=== PATIENT | male | born 1940 | race Caucasian/White ===

== ENCOUNTER 2020-04-17 14:06 | Outpatient (CLI) | payer BC, SELFPAY ==
--- NOTE | ~2020-04-17 | XR_ITS ---
[XR ribs LT 2V w CXR 2V ] INDICATION: Pleurodynia. Trauma to the ribs. TECHNIQUE: Frontal projection of the upper left ribs, frontal projection of the lower left ribs, obli que projection of all the left ribs, frontal inspiratory chest x-ray for interpretation. COMPARISON: Comparison to multiple prior studies sequentially, with oldest reviewed study dated 03/2015. FINDINGS: There is a healed old left ninth rib fracture posterior laterally. There is left basilar at electasis. Prominent nipple shadows. No pneumothorax identified. No significant effusion. Heart size normal. There is atherosclerosis. There are bilateral shoulder arthroplasties. IMPRESSION: 1: Healed old left ninth rib fracture. 2: Left basilar atelectasis. Reviewed, dictated and finalized at location A. 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
== END 2020-04-17 14:07 | disposition home or self-care (01) ==
LOC: ANHIMG 14:25
PROVIDERS: PCP Family Medicine; Visit Provider Family Medicine
DX: R07.81 Pleurodynia (principal); R91.8 Other nonspecific abnormal finding of lung field
CPT/HCPCS: 71046; 71100

== ENCOUNTER 2020-07-02 16:59 | Emergency (ER) | payer BC, SELFPAY ==
[2020-07-02] VITALS (7 sets, daily range): BP systolic 128–161; BP diastolic 72–105; PULSE 46–60; RESP 18–20; TEMP 36.3–36.8; O2SAT 95–99
--- NOTE | ~2020-07-02 | CT_ITS ---
EXAMINATION: CTA brain carotid DATE: 07/02/2020 18:24 INDICATION: Dizziness. TECHNIQUE: Computed tomographic angiography (CTA) of the head was performed without and with 100 mL O mnipaque-350 intravenous contrast. CTA of the neck was performed with intravenous contrast. Automated exposure control and iterative reconstruction technique were employed. The dose-length product was 1 707.17 mGy-cm. Maximum intensity projection and volume rendered 3D-reconstructions were created by colton lopez technologist on a separate workstation. COMPARISON: Head CT 08/31/2013 FINDINGS: HEAD CTA: There are scattered areas of low attenuation in the cerebral white matter. There is no intr acranial hemorrhage, acute infarction, or abnormal intracranial mass lesion. The ventricles are ranjit l in size. There is mucosal thickening in the paranasal sinuses with thickening and sclerosis of the gonzalez of right maxillary sinus, consistent with chronic sinusitis. The orbits are normal. The mastoid air cells are normal. The vertebral arteries are codominant. There is no significant stenosis of bas ilar artery or the posterior cerebral arteries. There is no significant stenosis of the intracranial internal carotid arteries or anterior or middle cerebral arteries. Anterior communicating artery is n ormal. The posterior communicating arteries are normal. There is no aneurysm. NECK CTA: There are no pathologically enlarged lymph nodes. There is no significant stenosis of the v ertebral arteries. There is undulation of the gonzalez of right internal carotid artery, consistent with fibromuscular dysplasia. 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 There is plaque in the proximal internal carotid arteries. There is 0% stenosis of the proximal right internal carotid artery relative to normal distal artery lumen diameter (NASCET crite uma). There is 0% stenosis of the proximal left internal carotid artery relative to normal distal art tristan lumen diameter. There is severe cervical spondylosis. IMPRESSION: 1. Mild nonspecific cerebral white matter disease, which likely represents chronic small vessel ische vishal disease. 2. No aneurysm or significant intracranial arterial stenosis. 3. 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 I called this result to Dr. Jimenes on 07/03/20 at 8:23 AM. 4. 0% stenosis of the proximal internal carotid arteries relative to normal distal artery lumen diame ters (NASCET criteria). Reviewed, dictated and finalized at location B. IMPRESSION: 1. Mild nonspecific cerebral white matter disease, which likely represents poker manager blanca small vessel ischemic disease. 2. No aneurysm or significant intracranial arterial stenosis. 3. 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 Fibromuscular dysplasia involving right internal car otid artery. I called this result to Dr. Pace on 07/03/20 at 8:23 AM. 4. 0% stenosis of the proximal internal carotid arteries relative to normal dis huma artery lumen diameters (NASCET criteria).
--- NOTE | 2020-07-02 17:09 | ECG_ITS ---
Measurements Intervals [place] Rate: 47 P: 91 LA: 254 QRS: 2 QRSD: 94 T: 3 QT: 451 QTc: 401 Interpretive Statements SINUS BRADYCARDIA WITH FIRST DEGREE AV BLOCK BORDERLINE ST-T WAVE ABNORMALITY- ANTEROLAT/INF LEADS BASELINE WANDER- V4 ABNORMAL ECG Electronically Signed On 07-02-2020 21:57:11 CDT by Nolan Andersen D.O.
[2020-07-02 17:19] LABS: Basophils Absolute Auto 0.1 K/mm3 (0.0-0.1); Basophils Percent Auto 1.1 % (0.2-1.2); Eosinophils Absolute Auto 0.3 K/mm3 (0-0.3); Hematocrit 43.9 % (42.0-52.0); Hemoglobin 15.3 g/dL (14.0-18.0); Immature Granulocyte Absolute 0.01 K/mm3 (0.00-0.031); Immature Granulocyte Percent A 0.2 % (0-0.5); Lymphocytes Absolute Auto 1.34 K/mm3 (0.9-3.2); Mean Corpuscular HGB Conc 34.9 g/dl (32-36); Mean Corpuscular Hemoglobin 32.3 pg (26-34); Mean Corpuscular Volume 92.8 fl (80-100); Mean Platelet Volume 9.6 fl (7.4-10.4); Monocytes Absolute Auto 0.6 K/mm3 (0.1-0.6); Monocytes Percent Auto 11.7 % (2.6-8.5); Neutrophils Absolute Auto 3.1 K/mm3 (1.3-6.7); Platelet Count Result 169 k/mm3 (150-375); Red Blood Count 4.73 M/mm3 (4.6-6.20); Red Cell Distribution Width 12.3 % (11.5-14.5); White Blood Count 5.4 K/mm3 (4.5-10.0)
[2020-07-02 17:32] LABS: Add Urine Microscopic? NO; Appearance Urine Clear (Clear); Bilirubin Urine Negative (Negative); Blood Urine Negative (Negative); Color Urine Yellow (Yellow); Glucose Urine UA Negative (Negative); Ketones Urine Negative (Negative); Leukocyte Esterase Ur Negative LEU/UL (Negative); Nitrate Urine Negative (Negative); Protein Urine Negative (Negative); Specific Grav Ur 1.021 (1.001-1.035); Urobilinogen Urine Negative mg/dL (<2.0)
[2020-07-02 17:42] LABS: Alanine Aminotransferase 24 U/L (4-50); Albumin Level 4.4 g/dL (3.5-5.1); Alkaline Phosphatase 83 U/L (38-126); Aspartate Amino Transferase 42 U/L (17-59); Bilirubin,Total 0.6 mg/dL (0.2-1.3)
--- NOTE | 2020-07-02 17:47 | ED.GENADULT ---
HPI - General Adult General Chief complaint: Dizziness Stated complaint: dizzy Time Seen by Provider: 07/02/20 17:14 Source: patient History of Present Illness HPI narrative: Patient is a 79 y/o male complaining of intermittent dizziness. He state that he had 3 episodes of dizziness today. His dizziness is a room spinning sensation. His last episode of dizziness was 1 1/2 hours ago. The last episodes lasted only 1 minute. There is no alleviating or exacerbating factor. He does not feel dizzy at this time. He has no focal weakness or numbness. He is able to ambulate. Related Data Home Medications Medication Instructions Recorded Confirmed rivaroxaban 10 mg tablet 10 mg PO DAILY 04/09/19 05/22/20 venlafaxine 37.5 mg 37.5 mg PO DAILY 10/07/19 05/22/20 capsule,extended release 24 hr mirtazapine 15 mg tablet 7.5 mg PO DAILY tablet 11/09/19 05/22/20 Allergies Allergy/AdvReac Type Severity Reaction Status Date / Time eszopiclone Allergy Unknown Unknown Verified 07/02/20 17:16 Review of Systems Constitutional: Constitutional: Denies chills, Denies fever(s), Denies headache(s) and Denies weakness Eyes: Eyes: Denies blurry vision ENT: Denies headache(s) and Denies neck pain Cardiovascular: Cardiovascular: Denies chest pain and Denies dyspnea Respiratory: Respiratory: Denies cough and Denies dyspnea Gastrointestinal: Gastrointestinal: Denies abdominal pain, Denies diarrhea, Denies nausea and Denies vomiting Genitourinary: Genitourinary: Denies hematuria and Denies dysuria Musculoskeletal: Musculoskeletal: Denies back pain and Denies neck pain Neurologic: Reports dizziness, Denies headache(s) and Denies weakness FOR[facility]LY [facility] Past Medical History Medical History Anxiety Arthritis Depression Diverticulosis DVT (deep venous thrombosis) Esophageal stricture GERD (gastroesophageal reflux disease) Hiatal hernia Insomnia Internal hemorrhoids Left rotator cuff tear Left wrist fracture MVP (mitral valve prolapse) Pulmonary embolism Rectal polyp Sleep apnea Surgical History Surgical History H/O left wrist surgery H/O prostatectomy H/O repair of left rotator cuff H/O right wrist surgery H/O shoulder replacement H/O thyroidectomy History of partial thyroidectomy Hx of tonsillectomy S/P TURP Status post left rotator cuff repair Family History Family History Mother Cerebrovascular accident Sibling Family history of coronary artery disease Social History Social History Smoking packs per day: 0.5 Smoking cigarettes per day: 10.0 Years smoked: 20 Smoking pack-years: 10.00 Smoking status: Former smoker Tobacco type: cigarettes Second hand tobacco smoke exposure: No Smoking end date: 03/17/81 Alcohol intake: current Drinks per week: 8 Substance use: never Substance use type: does not use Gender identity (if verbalized by the patient): Male Exam Const: General: no acute distress and well developed Orientation/consciousness: oriented to person, oriented to place, oriented to time and patient oriented x3 HENMT: Head: normocephalic Ears: external ears normal General nose exam: Normal external nose present Eyes: General: appearance normal, both eyes and all related structures Conjunctivae: conjunctivae normal Neck: Neck: normal visual inspection and full ROM Chest: Chest palpation & inspection: normal inspection of the chest and no tenderness Resp: Effort & Inspection: normal respiratory effort Auscultation: clear to auscultation bilaterally Cardio: Rate: regular rate Rhythm: regular rhythm GI: GI Palp: No abdominal tenderness and Yes Soft to palpation Skin: General skin exam: normal color and turgor normal Neuro: General: oriented to person, oriented to place, oriented
[2020-07-02 17:52] LABS: Anion Gap 6 mmol/L (8-16); Blood Urea Nitrogen 18 mg/dL (9-20); Calcium 9.1 mg/dL (8.4-10.2); Carbon Dioxide 26 mmol/L (22-30); Chloride 108 mmol/L (98-107); Estimated CRCL calculation 44 ml/min; Estimated Glomerular Filt Rate 58; Glucose 85 mg/dL (75-110); Potassium 4.3 mmol/L (3.4-5.0); Sodium 140 mmol/L (137-145)
--- NOTE | 2020-07-02 19:18 | PC.NURSE ---
Report received from LESLI Mcarthur. Assumed care of patient at this time.
== END 2020-07-02 20:55 | disposition home or self-care (01) ==
PROVIDERS: Emergency Medicine; Emergency Provider Emergency Medicine; PCP Family Medicine
DX: R42 Dizziness and giddiness (principal); M19.90 Unspecified osteoarthritis, unspecified site; K21.9 Gastro-esophageal reflux disease without esophagitis; I34.1 Nonrheumatic mitral (valve) prolapse; G47.30 Sleep apnea, unspecified; F41.9 Anxiety disorder, unspecified; F32.9 Major depressive disorder, single episode, unspecified; Z86.711 Personal history of pulmonary embolism; Z87.19 Personal history of other diseases of the digestive system; Z86.718 Personal history of other venous thrombosis and embolism; Z90.79 Acquired absence of other genital organ(s); Z96.619 Presence of unspecified artificial shoulder joint; E89.0 Postprocedural hypothyroidism; Z87.891 Personal history of nicotine dependence
CPT/HCPCS: 36415; 70496; 70498; 80048; 80076; 81003; 85025; 93005; 99284; Q9967

== ENCOUNTER 2020-10-31 21:36 | Emergency (ER) | payer BC, SELFPAY ==
[2020-10-31 21:53] VITALS: BP 133/98; PULSE 62; RESP 18; TEMP 37.4; O2SAT 97
--- NOTE | 2020-10-31 22:44 | PC.NURSE ---
Pt approached intake desk and states Im leaving, I will call my doctor in the morning. Im not gonna be seen, I feel better. Give my bed to someone who needs it. Pt ambulated out w/ steady gait.
== END 2020-11-01 01:33 | disposition left against medical advice (07) ==
DX: Z53.21 Procedure and treatment not carried out due to patient leaving prior to being seen by health care provider (principal)
CPT/HCPCS: 99199

== ENCOUNTER → 2020-11-04 02:44 | Outpatient (CLI) | payer BC, SELFPAY ==
[2020-11-05 01:35] LABS: SARS-CoV-2 RNA PCR Negative
== END ==
PROVIDERS: PCP Family Medicine; Visit Provider Physician Assistant
DX: R05 Cough (principal); Z20.822 Contact with and (suspected) exposure to COVID-19
CPT/HCPCS: C9803; U0003; U0005

== ENCOUNTER 2020-11-15 12:30 | Outpatient (RCR) | payer BC, SELFPAY ==
--- NOTE | 2020-10-26 10:01 | PTOPEVAL ---
PHYSICAL THERAPY EVALUATION Thank you for referring Jules Alonso to [facility].? Be was evaluated for the dx of dizziness. The patient is scheduled to be seen for therapy?1 x/week for 3 weeks. Please review, sign, date and return this plan of care GENARO. I agree with and certify that the following plan of care is medically necessary. Referring Physician Date Attending Provider: Eyad Oliveira, MD *PT Outpatient Evaluation Start: 10/26/20 08:36 Freq: Status: Active Protocol: Document 10/26/20 08:36 MLV (Rec: 10/26/20 09:45 MLV [id number]) Therapy Assessment Status Assessment Status Assessment Status Evaluation Evaluation Information Problem Diagnosis BPPV Onset began about 2 yrs ago but falls began 2 months ago Additional Evaluation Detail The patient is a very active person with rowing, gym workouts regularly, yardwork/ house projects. The patient reports a couple falls in the last few months due to a bout of dizziness that will cause him to fall. The pt saw his MD and was given an exercise to do for BPPV but it hasn't fixed or changed his issue yet . The patient wants to be rid of the dizziness to prevent further falls and maintain his active lifestyle. Subjective Information Pt began wearing hearing aids Query Text:As Reported By Patient/ 3 yrs ago and got new ones Family right before the symptoms began-doesn't believe it is related. The pt doesn't wear them all the time. Previous Treatments Previous Treatments For This Problem BPPV exercise at home given by md-not effective Pain Assessment Timing of Pain Assessment Timing of Pain Assessment Assessment Self Report Self Report Pain Level 0 Pain Score Pain Score 0: Self Report Cervical and Lumbar ROM Cervical ROM Cervical ROM 50% of Normal Upper Extremity Range of Motion General Upper Extremity Range of Motion Reason Not Measured WFL/Left,WFL/Right Lower Extremity Range of Motion General Lower Extremity Range of Motion Reason Not Measured WFL/Left,WFL/Right Lower Extremity Muscle Strength Testing General Lower Extremity Strength Reason Not Measured WFL/Left,WFL/Right Gross Lower Extremity Strength duc ankle control limits due
--- NOTE | 2020-10-26 10:18 | PTOPEVAL ---
PHYSICAL THERAPY EVALUATION Thank you for referring Jules Alonso to [facility].? Be was evaluated for the dx of dizziness. The patient is scheduled to be seen for therapy? 1 x/week for 3 weeks. Please review, sign, date and return this plan of care GENARO. I agree with and certify that the following plan of care is medically necessary. Referring Physician Date Attending Provider: Eyad Oliveira, MD *PT Outpatient Evaluation Start: 10/26/20 08:36 Freq: Status: Active Protocol: Document 10/26/20 08:36 MLV (Rec: 10/26/20 09:45 MLV [id number]) Therapy Assessment Status Assessment Status Assessment Status Evaluation Evaluation Information Problem Diagnosis BPPV Onset began about 2 yrs ago but falls began 2 months ago Additional Evaluation Detail The patient is a very active person with rowing, gym workouts regularly, yardwork/ house projects. The patient reports a couple falls in the last few months due to a bout of dizziness that will cause him to fall. The pt saw his MD and was given an exercise to do for BPPV but it hasn't fixed or changed his issue yet . The patient wants to be rid of the dizziness to prevent further falls and maintain his active lifestyle. Subjective Information Pt began wearing hearing aids Query Text:As Reported By Patient/ 3 yrs ago and got new ones Family right before the symptoms began-doesn't believe it is related. The pt doesn't wear them all the time. Previous Treatments Previous Treatments For This Problem BPPV exercise at home given by md-not effective Pain Assessment Timing of Pain Assessment Timing of Pain Assessment Assessment Self Report Self Report Pain Level 0 Pain Score Pain Score 0: Self Report Cervical and Lumbar ROM Cervical ROM Cervical ROM 50% of Normal Upper Extremity Range of Motion General Upper Extremity Range of Motion Reason Not Measured WFL/Left,WFL/Right Lower Extremity Range of Motion General Lower Extremity Range of Motion Reason Not Measured WFL/Left,WFL/Right Lower Extremity Muscle Strength Testing General Lower Extremity Strength Reason Not Measured WFL/Left,WFL/Right Gross Lower Extremity Strength duc ankle control limits due
--- NOTE | 2020-11-15 13:27 | PTOPEVAL ---
PHYSICAL THERAPY DISCHARGE Thank you for referring Jules Alonso to [facility].? The patient has completed 4 visits for the dx of BPPV and has met his goals. DC PT. Please review, sign, date and return this plan of care GENARO. I agree with and certify the following plan of care. Referring Physician Date Attending Provider: Eyad Oliveira, *PT Outpatient Discharge Start: 10/26/20 08:36 Freq: Status: Active Protocol: Document 11/15/20 12:43 MLV (Rec: 11/15/20 13:18 MLV [id number]) Therapy Assessment Status Assessment Status Assessment Status Discharge Evaluation Information Problem Diagnosis BPPV Onset began about 2 yrs ago but falls began 2 months ago Additional Evaluation Detail The patient reports an improvement with balance control while doing his exercises and with moving is boat for rowing. The patient has kept his log for rating symptoms and has a notable decline in intensity for the milton-dorff exercises. The patient agrees he can continue his exercises on his own at this point. 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
== END 2020-11-15 16:15 | disposition home or self-care (01) ==
LOC: ANHPT 12:30
PROVIDERS: PCP Family Medicine; Visit Provider Otolaryngology
DX: R42 Dizziness and giddiness (principal)
CPT/HCPCS: 97110; 97162

== ENCOUNTER 2020-12-02 19:37 | Emergency (ER) | payer BC, SELFPAY ==
--- NOTE | ~2020-12-02 | CT_ITS ---
EXAMINATION: CT brain wo con DATE: 12/02/2020 20:36 INDICATION: Fall. Struck back of head. Patient on blood thinners. Neck pain. TECHNIQUE: Computed tomography (CT) of the head was performed without intravenous contrast. The mA wa s adjusted according to patient size. Iterative reconstruction technique was employed. Exam dose: 60 5.33 mGy-cm total exam DLP. COMPARISON: 07/02/2020 CT brain carotid 08/31/2013 CT brain FINDINGS: Bilateral vertebral artery, basilar artery and bilateral carotid siphon internal carotid ar gus calcifications. There is nonspecific diminished attenuation of the cerebral white matter, likely due to chronic small vessel ischemic changes. There is moderate central and cortical cerebral volume loss as well as moderate cerebellar volume los s. No intracranial mass lesion or hemorrhage or cerebrovascular accident is detected. No midline shift o r mass effect. No subdural or epidural hematoma is detected. No skull fracture or bone destruction is detected. There is prominent patchy opacification of the ethmoid air cells bilaterally. There is frontoethmoid soft tissue thickening. There is prominent mucoperiosteal thickening of the right maxillary sinus. Th e mastoid air cells are normally developed and aerated No fracture or bone destruction of the cranial vault is detected. IMPRESSION: Cerebral atherosclerosis and chronic small vessel ischemic changes of the cerebral white matter No acute intracranial abnormality Reviewed, dictated and finalized at Location A. Reviewed, dictated and finalized at location A.
--- NOTE | ~2020-12-02 | CT_ITS ---
EXAMINATION: CT cervical spine wo con DATE: 12/02/2020 20:36 INDICATION: Neck pain following fall TECHNIQUE: Computed tomography (CT) of the cervical spine was performed without intravenous contrast. Automated exposure control and iterative reconstruction technique were employed. Exam dose: 396.36 mGy-cm total exam DLP. COMPARISON: None FINDINGS: C1 and C2 are normally aligned and the odontoid process is intact. No fracture or dislocati on or locked facet or prevertebral soft tissue swelling is detected. There is severe degenerative disc disease and mild retrolisthesis at C3-4 and C4-5. There is severe degenerative disc disease at C5-6. There is very severe degenerative disc disease and mild retrolisthesis at C6-7. There is mild anterolisthesis at C7-T1. There is prominent degenerative change at the apophyseal joints of the cervical spine There is uncovertebral joint spurring, with prominent at C3-4, C4-5, C5-6 and most pronounced at C6-7 . IMPRESSION: Extensive cervical spondylosis No fracture or dislocation Reviewed, dictated and finalized at Location [facility]. Reviewed, dictated and finalized at location A.
[2020-12-02 19:43] VITALS: BP 126/83; PULSE 65; RESP 18; TEMP 36.5; O2SAT 96
[2020-12-02] MEDS: TETANUS,DIPHTHERIA,AC PERTUSSIS ADULT (0.5 ML) BOOSTRIX IM (20:22)
--- NOTE | 2020-12-02 20:28 | PC.NURSE ---
Patient taken to CT.
--- NOTE | 2020-12-02 20:33 | ED.GENADULT ---
HPI - General Adult General Chief complaint: Fall Stated complaint: head injury Time Seen by Provider: 12/02/20 20:05 History of Present Illness HPI narrative: Patient is an 80-year-old gentleman who presents the emergency department with chief complaint of head injury. The patient reports that he was at a local festival in [place] and sat down in a chair and as he leaned backwards the chair fell backwards and he struck his head against the curb. The patient reports that he had a injury to the back of his scalp was bleeding reports he is unsure of his last tetanus shot reports that he takes Xarelto. The patient states that he has no focal neurological deficits reports the upper part of his neck feels a little sore with this as well patient denies nausea vomiting denies any other complaints. Related Data Home Medications Medication Instructions Recorded Confirmed venlafaxine 37.5 mg 37.5 mg PO DAILY 10/07/19 11/27/20 capsule,extended release 24 hr mirtazapine 15 mg tablet 7.5 mg PO DAILY tablet 11/09/19 11/27/20 Allergies Allergy/AdvReac Type Severity Reaction Status Date / Time eszopiclone Allergy Unknown Unknown Verified 12/02/20 19:55 Review of Systems Review of Systems: A 10 system review of systems was completed on the patient and is negative except for what is stated in the HPI. Nursing and ancillary documentation was reviewed. COUNTS INCLUDE 234 BEDS AT THE [facility] Past Medical History Medical History Anxiety Arthritis Depression Diverticulosis DVT (deep venous thrombosis) Esophageal stricture GERD (gastroesophageal reflux disease) Hiatal hernia Insomnia Internal hemorrhoids Left rotator cuff tear Left wrist fracture MVP (mitral valve prolapse) Pulmonary embolism Rectal polyp Sleep apnea Surgical History Surgical History H/O left wrist surgery H/O prostatectomy H/O repair of left rotator cuff H/O right wrist surgery H/O shoulder replacement H/O thyroidectomy History of partial thyroidectomy Hx of tonsillectomy S/P TURP Status post left rotator cuff repair Family History Family History Mother Cerebrovascular accident Sibling Family history of coronary artery disease Social History Social History Smoking packs per day: 0.5 Smoking cigarettes per day: 10.0 Years smoked: 20 Smoking pack-years: 10.00 Smoking status: Former smoker Tobacco type: cigarettes Second hand tobacco smoke exposure: No Smoking end date: 03/17/81 Alcohol intake: current Drinks per week: 8 Substance use: never Substance use type: does not use Gender identity (if verbalized by the patient): Male Exam Narrative: GENERAL: Well-appearing, well-nourished, and in no acute distress. HEAD: Normocephalic, small quarter sized abrasion present in the occipital region of the scalp no laceration. EYES: PERRLA and EOMI. ENT: Nares clear, no rhinorrhea or epistaxis. Mucous membranes moist. NECK: Supple. CHEST: Clear to auscultation. No respiratory distress. HEART: Regular rate and rhythm. No murmur heard. Normal peripheral pulses. ABDOMEN: Soft, nontender, nondistended, normal active bowel sounds. EXTREMITIES: Normal range of motion. No edema. SKIN: Warm, dry, no rash. NEURO: No focal deficits. Alert and oriented x3. PSYCH: Normal mood and affect. Course Course Emergency Course: Due to the patient being on a oral anticoagulant and head injury a CT head was obtained since patient does have some pain in the upper C-spine a CT C-spine was obtained as well. The patient's tetanus status will be updated since he is unsure of his last tetanus shot. Vital Signs Vital signs: Vital Signs Temperature 36.5 C 12/02/20 19:43 Pulse Rate 65 12/02/20 19:43 Respiratory Rate 18 12/02/20 1
[2020-12-02 21:18] VITALS: BP 143/79; PULSE 56; RESP 14; O2SAT 96
== END 2020-12-02 21:30 | disposition home or self-care (01) ==
PROVIDERS: Emergency Provider Emergency Medicine; PCP Family Medicine
DX: S00.01XA Abrasion of scalp, initial encounter (principal); Z23 Encounter for immunization; M19.90 Unspecified osteoarthritis, unspecified site; F41.9 Anxiety disorder, unspecified; Z86.718 Personal history of other venous thrombosis and embolism; K21.9 Gastro-esophageal reflux disease without esophagitis; I34.1 Nonrheumatic mitral (valve) prolapse; Z86.711 Personal history of pulmonary embolism; Z87.19 Personal history of other diseases of the digestive system; G47.30 Sleep apnea, unspecified; Z90.79 Acquired absence of other genital organ(s); Z96.619 Presence of unspecified artificial shoulder joint; E89.0 Postprocedural hypothyroidism; Z87.891 Personal history of nicotine dependence; W07.XXXA Fall from chair, initial encounter
CPT/HCPCS: 70450; 72125; 90471; 90715; 99284

== ENCOUNTER 2020-12-17 08:46 | Emergency (ER) | payer BC, SELFPAY ==
[2020-12-17 08:55] VITALS: BP 113/80; PULSE 69; RESP 16; TEMP 36.3; O2SAT 100
[2020-12-17 09:04] LABS: Basophils Absolute Auto 0.1 K/mm3 (0.0-0.1); Basophils Percent Auto 0.8 % (0.2-1.2); Eosinophils Absolute Auto 0.1 K/mm3 (0-0.3); Eosinophils Percent Auto 1.6 % (0-4.4); Hematocrit 49.7 % (42.0-52.0); Hemoglobin 16.9 g/dL (14.0-18.0); Immature Granulocyte Absolute 0.03 K/mm3 (0.00-0.031); Immature Granulocyte Percent A 0.4 % (0-0.5); Lymphocytes Absolute Auto 0.81 K/mm3 (0.9-3.2); Lymphocytes Percent Auto 9.8 % (18.3-44.2); Mean Corpuscular Hemoglobin 32.1 pg (26-34); Mean Corpuscular Volume 94.5 fl (80-100); Mean Platelet Volume 9.8 fl (7.4-10.4); Monocytes Absolute Auto 0.9 K/mm3 (0.1-0.6); Monocytes Percent Auto 11.2 % (2.6-8.5); Neutrophils Absolute Auto 6.3 K/mm3 (1.3-6.7); Neutrophils Percent Auto 76.2 % (45.5-73.1); Platelet Count Result 208 k/mm3 (150-375); Red Blood Count 5.26 M/mm3 (4.6-6.20); Red Cell Distribution Width 12.7 % (11.5-14.5); White Blood Count 8.3 K/mm3 (4.5-10.0)
[2020-12-17 09:12] LABS: Alanine Aminotransferase 26 U/L (4-50); Albumin Level 5.4 g/dL (3.5-5.1); Alkaline Phosphatase 89 U/L (38-126); Anion Gap 13 mmol/L (8-16); Aspartate Amino Transferase 39 U/L (17-59); Bilirubin,Total 1.4 mg/dL (0.2-1.3); Blood Urea Nitrogen 24 mg/dL (9-20); Carbon Dioxide 20 mmol/L (22-30); Chloride 110 mmol/L (98-107); Estimated CRCL calculation 36 ml/min; Estimated Glomerular Filt Rate 49; Glucose 124 mg/dL (65-110); Lipase 85 U/L (23-300); Potassium 4.5 mmol/L (3.4-5.0); Sodium 143 mmol/L (137-145)
[2020-12-17 09:52] LABS: Add Urine Microscopic? YES; Appearance Urine Clear (Clear); Bilirubin Urine Negative (Negative); Blood Urine Negative (Negative); Color Urine Amber (Yellow); Glucose Urine UA Negative (Negative); Ketones Urine Negative (Negative); Leukocyte Esterase Ur Negative LEU/UL (Negative); Mucus Urine Heavy /lpf; Nitrate Urine Negative (Negative); Protein Urine 1+ mg/dL (Negative); RBC Urine 0-2 /hpf (0-2); Squamous Epithelial Cell Urine Rare /hpf (Few); WBC Urine 0-3 /hpf
[2020-12-17 09:53] LABS: Specific Grav Ur 1.033 (1.001-1.035)
--- NOTE | 2020-12-17 13:08 | PC.NURSE ---
pt up to desk again requesting test results be given to him even if he has to sit in a chair. again made aware of dept status.
[2020-12-17 14:01] VITALS: BP 124/85; PULSE 56; RESP 18; TEMP 36.6; O2SAT 98
[2020-12-17] MEDS: SODIUM CHLORIDE 0.9% IV 1,000 ML 999 ML IV CONT (14:06)
--- NOTE | 2020-12-17 14:41 | ED.GENADULT ---
HPI - General Adult General Chief complaint: Nausea/Vomiting/Diarrhea Stated complaint: diarrhea Time Seen by Provider: 12/17/20 13:40 Source: patient History of Present Illness HPI narrative: Patient is a 80 y/o male complaining of diarrhea starting yesterday. He states that he had 12-13 episodes of watery diarrhea. There is no known alleviating or exacerbating factor. He did not take any meds for diarrhea. He has some nausea, but no vomiting or abdominal pain. Related Data Home Medications Medication Instructions Recorded Confirmed venlafaxine 37.5 mg 37.5 mg PO DAILY 10/07/19 11/27/20 capsule,extended release 24 hr mirtazapine 15 mg tablet 7.5 mg PO DAILY tablet 11/09/19 11/27/20 Allergies Allergy/AdvReac Type Severity Reaction Status Date / Time eszopiclone Allergy Unknown Unknown Verified 12/02/20 19:55 Review of Systems Constitutional: Constitutional: Denies chills, Denies fever(s), Denies headache(s) and Denies weakness Eyes: Eyes: Denies blurry vision ENT: Denies headache(s) and Denies neck pain Cardiovascular: Cardiovascular: Denies chest pain and Denies dyspnea Respiratory: Respiratory: Denies cough and Denies dyspnea Gastrointestinal: Gastrointestinal: Denies abdominal pain, Reports diarrhea, Reports nausea and Denies vomiting Genitourinary: Genitourinary: Denies hematuria and Denies dysuria Musculoskeletal: Musculoskeletal: Denies back pain and Denies neck pain Neurologic: Denies headache(s) and Denies weakness PMF Past Medical History Medical History Anxiety Arthritis Depression Diverticulosis DVT (deep venous thrombosis) Esophageal stricture GERD (gastroesophageal reflux disease) Hiatal hernia Insomnia Internal hemorrhoids Left rotator cuff tear Left wrist fracture MVP (mitral valve prolapse) Pulmonary embolism Rectal polyp Sleep apnea Surgical History Surgical History H/O left wrist surgery H/O prostatectomy H/O repair of left rotator cuff H/O right wrist surgery H/O shoulder replacement H/O thyroidectomy History of partial thyroidectomy Hx of tonsillectomy S/P TURP Status post left rotator cuff repair Family History Family History Mother Cerebrovascular accident Sibling Family history of coronary artery disease Social History Social History Smoking packs per day: 0.5 Smoking cigarettes per day: 10.0 Years smoked: 20 Smoking pack-years: 10.00 Smoking status: Former smoker Tobacco type: cigarettes Second hand tobacco smoke exposure: No Smoking end date: 03/17/81 Alcohol intake: current Drinks per week: 8 Substance use: never Substance use type: does not use Gender identity (if verbalized by the patient): Male Exam Const: General: no acute distress and well developed Orientation/consciousness: oriented to person, oriented to place, oriented to time and patient oriented x3 HENMT: Head: normocephalic Ears: external ears normal General nose exam: Normal external nose present Eyes: General: appearance normal, both eyes and all related structures Conjunctivae: conjunctivae normal Neck: Neck: normal visual inspection and full ROM Chest: Chest palpation & inspection: normal inspection of the chest and no tenderness Resp: Effort & Inspection: normal respiratory effort Auscultation: clear to auscultation bilaterally Cardio: Rate: regular rate Rhythm: regular rhythm GI: GI Palp: No abdominal tenderness and Yes Soft to palpation Skin: General skin exam: normal color and turgor normal Neuro: General: oriented to person, oriented to place, oriented to time and patient oriented x3 Cognition (Neuro): normal cognition Extrem: General: normal to inspection, full ROM and no pedal edema Psych: Appearance: grossly normal Ment
[2020-12-17] MEDS: ONDANSETRON INJ 4 MG/2 ML VIAL IV PUSH (14:54)
[2020-12-17 15:09] VITALS: BP 107/78; PULSE 59; RESP 16; O2SAT 100
[2020-12-17] MEDS: LOPERAMIDE HCL 2 MG CAPSULE 4 MG PO (15:09)
[2020-12-17 16:29] VITALS: BP 142/96; PULSE 60; RESP 16; O2SAT 100
[2020-12-18 16:47] LABS: SARS-CoV-2 RNA PCR Negative
== END 2020-12-17 16:31 | disposition home or self-care (01) ==
PROVIDERS: Emergency Provider Emergency Medicine; PCP Family Medicine
DX: R19.7 Diarrhea, unspecified (principal); Z20.822 Contact with and (suspected) exposure to COVID-19; I34.1 Nonrheumatic mitral (valve) prolapse; M19.90 Unspecified osteoarthritis, unspecified site; K21.9 Gastro-esophageal reflux disease without esophagitis; G47.30 Sleep apnea, unspecified; Z96.619 Presence of unspecified artificial shoulder joint; Z86.711 Personal history of pulmonary embolism; Z87.19 Personal history of other diseases of the digestive system; Z86.718 Personal history of other venous thrombosis and embolism; Z90.79 Acquired absence of other genital organ(s); E89.0 Postprocedural hypothyroidism; Z87.891 Personal history of nicotine dependence
CPT/HCPCS: 36415; 80053; 81001; 83690; 85025; 96361; 96374; 99284; A9270; C9803; J2405; J7030; U0003; U0005

== ENCOUNTER 2021-01-11 11:41 | Outpatient (CLI) | payer BC, SELFPAY ==
--- NOTE | ~2021-01-11 | US_ITS ---
EXAMINATION: US venous doppler [facility] DATE: 01/11/2021 12:39 INDICATION: Lower extremity pain TECHNIQUE: Tan scale images without and with compression and Doppler images of the bilateral lower e xtremity veins were obtained. COMPARISON: 04/26/2015 FINDINGS: The right common femoral vein, profunda femoral vein, femoral vein, popliteal vein, peroneal trunk, p osterior tibial veins, and greater saphenous vein are patent. The left common femoral vein, profunda femoral vein, femoral vein, popliteal vein, peroneal trunk, po sterior tibial veins, and greater saphenous vein are patent. IMPRESSION: 1. Patent bilateral lower extremity veins. No evidence of deep venous thrombosis. Reviewed, dictated and finalized at location A. IMPRESSION: 1. Patent bilateral lower extremity veins. No evidence of deep venous thrombosi s.
== END 2021-01-11 11:42 | disposition home or self-care (01) ==
LOC: ANHIMG 11:49
PROVIDERS: PCP Family Medicine; Visit Provider Physician Assistant
DX: M79.605 Pain in left leg (principal); Z86.711 Personal history of pulmonary embolism
CPT/HCPCS: 93970

== ENCOUNTER → 2022-06-04 14:42 | Outpatient (CLI) | payer BC, SELFPAY ==
--- NOTE | ~2022-06-04 | XR_ITS ---
EXAM: XR lumbar spine 2-3V DATE: 06/04/2022 15:18 HISTORY: M54.50 - Low back pain, unspecified . COMPARISON: 03/23/2015. FINDINGS: Atherosclerotic calcifications, including desiccation to the abdominal aorta, with suggesti on of fusiform aneurysmal dilation. Moderate lumbar scoliosis. 5 nonrib-bearing lumbar-type vertebral bodies. Pedicles intact. Normal vertebral body alignment. Chronic mild anterior wedge deformity at L 2, remaining vertebral body heights preserved. Multilevel disc space narrowing and marginal osteophyt osis. Severe narrowing and vacuum phenomenon at L2-3 through L5-S1 multilevel moderate-severe mid and lower lumbar facet hypertrophy and sclerosis, with interspinous narrowing. No fracture or dislocatio n. IMPRESSION: Chronic mild L2 wedge compression fracture. Multilevel severe degenerative lumbar disc di sease. Multilevel moderate-severe mid and lower lumbar facet arthropathy. Suggestion of fusiform abdo pham aortic aneurysm, recommend ultrasound of the aorta for further evaluation. Reviewed, dictated and finalized at location K. IMPRESSION: Chronic mild L2 wedge compression fracture. Multilevel severe degen erative lumbar disc disease. Multilevel moderate-severe mid and lower lumbar fa cet arthropathy. Suggestion of fusiform abdominal aortic aneurysm, recommend ul trasound of the aorta for further evaluation.
== END ==
PROVIDERS: PCP Family Medicine; Visit Provider Family Medicine
DX: M48.56XA Collapsed vertebra, not elsewhere classified, lumbar region, initial encounter for fracture (principal); M54.50 Low back pain, unspecified; M51.36 Other intervertebral disc degeneration, lumbar region; M12.88 Other specific arthropathies, not elsewhere classified, other specified site
CPT/HCPCS: 72100

== ENCOUNTER 2022-06-21 10:05 | Outpatient (CLI) | payer BC, SELFPAY ==
--- NOTE | ~2022-06-21 | US_ITS ---
EXAMINATION: US aorta [facility] DATE: 06/21/2022 10:49 INDICATION: Abdominal aortic aneurysm screening with risk factors of smoking. TECHNIQUE: Grayscale, color Doppler, and pulsed Doppler images of the aorta and common iliac arteries were obtained. COMPARISON: None. FINDINGS: The proximal aorta measures 2.6 cm. The mid aorta measures 2.5 cm. Mild fusiform aneurysm of the dist al aorta measuring up to 3.2 cm maximal diameter. The right common iliac artery measures 2.0 cm. The left common iliac artery measures 1.9 cm. IMPRESSION: 1. Mild fusiform infrarenal abdominal aortic aneurysm measuring up to 3.2 cm maximal diameter. 2. Ectatic bilateral iliac arteries measuring 2.0 cm on the right and 1.9 cm on the left. Reviewed, dictated and finalized at location A. IMPRESSION: 1. Mild fusiform infrarenal abdominal aortic aneurysm measuring up to 3.2 cm ma ximal diameter. 2. Ectatic bilateral iliac arteries measuring 2.0 cm on the right and 1.9 cm on the left.
== END 2022-06-21 10:06 | disposition home or self-care (01) ==
PROVIDERS: PCP Family Medicine; Visit Provider Family Medicine
DX: Z13.6 Encounter for screening for cardiovascular disorders (principal); I71.43 Infrarenal abdominal aortic aneurysm, without rupture
CPT/HCPCS: 76706

== ENCOUNTER → 2022-07-26 07:01 | Outpatient (CLI) | payer BC, SELFPAY ==
--- NOTE | ~2022-07-26 | MR_ITS ---
MRI of the lumbar spine Clinical History: Spondylosis Technique: Axial T2-weighted images, and sagittal T1-weighted, T2-weighted, and T2 fat-sat images wer e acquired. COMPARISON: 04/10/2015 Findings: Stable chronic compression deformity of L2. There is extensive reactive marrow edema in the lumbar spine due to underlying degenerative disc changes. There is severe degenerative disc narrowin g at all lumbar levels. At L1-L2, there is mild disc bulge and moderate facet arthropathy. There is right lateral recess sten osis. There is moderate to advanced right neural foraminal narrowing. There is minimal left neural fo raminal narrowing. At L2-L3, there is diffuse disc bulge and moderate facet arthropathy, with right lateral recess steno sis and mild central canal stenosis/thecal sac compression. There is mild to moderate right neural fo raminal narrowing and minimal left neural foraminal narrowing. L3-L4, disc bulge and advanced facet arthropathy result in severe spinal canal stenosis/thecal sac co mpression. There is mild to moderate right neural foraminal narrowing. Left neural foramen preserved. At L4-L5, there is disc bulge and facet arthropathy, which result in moderate to severe thecal sac co mpression/spinal canal stenosis. There is severe bilateral neural foraminal narrowing. At L5-S1, there is disc bulge and facet arthropathy, especially on the left side. No central canal st enosis. There is severe left neural foraminal narrowing. Right neural foramen preserved. Paravertebral soft tissues are unremarkable. Impression: Severe degenerative spondylosis, as detailed above. Chronic mild compression deformity of L2, stable from prior exam. Reviewed, dictated and finalized at [facility]. Impression: Severe degenerative spondylosis, as detailed above. Chronic mild compression deformity of L2, stable from prior exam.
== END ==
PROVIDERS: PCP Family Medicine; Visit Provider Physician Assistant
DX: M47.816 Spondylosis without myelopathy or radiculopathy, lumbar region (principal); G89.29 Other chronic pain
CPT/HCPCS: 72148

== ENCOUNTER 2023-04-04 09:42 | Inpatient (IN) | payer MEDICARE, BC, SELFPAY ==
[2023-04-04] VITALS (26 sets, daily range): BP systolic 103–131; BP diastolic 57–71; PULSE 55–74; RESP 12–20; TEMP 36.4–37; O2SAT 94–98; BMI 23.3
--- NOTE | ~2023-04-04 | XR_ITS ---
EXAMINATION: XR chest 2V DATE: 04/04/2023 10:42 INDICATION: Dyspnea and weakness TECHNIQUE: frontal and lateral views of the chest were obtained. COMPARISON: Chest radiograph dated 04/17/2020 FINDINGS: Interval volume loss in left hemithorax with mild elevation of left hemidiaphragm. New opacities in t he left lower lung zone which could represent secondary atelectasis with differential including pneum onia. No pulmonary edema, pleural effusion or pneumothorax. Heart size is normal. Bilateral total trever ulder arthroplasties. Suture anchor at the left greater tuberosity suggesting prior left rotator cuff repair. IMPRESSION: 1. Volume loss in left hemithorax with opacity lower lung zone most likely atelectasis with different ial including pneumonia. Reviewed, dictated and finalized at location A. HOUSE LABORER IMPRESSION: 1. Volume loss in left hemithorax with opacity lower lung zone most likely atel ectasis with differential including pneumonia.
--- NOTE | ~2023-04-04 | MR_ITS ---
EXAMINATION: MR brain/brain stem wo con DATE: 04/05/2023 12:39 INDICATION: Falls, abnormal CT finding TECHNIQUE: Magnetic resonance imaging (MRI) of the brain and brainstem was performed without intraven ous contrast. Sequences included sagittal and axial T1-weighted SE, axial diffusion-weighted FS EPI A SSET, axial T2*-weighted GRE, axial T2-weighted FLAIR Propeller, and axial T2-weighted Propeller. Barbara arent diffusion coefficient (ADC) maps were created. COMPARISON: CT brain, 04/04/2023. FINDINGS: No abnormal restricted diffusion to suggest acute ischemic infarct. No MRI evidence of hemorrhage or extra-axial collection. Small foci of susceptibility in the agustín and the right cerebellar peduncle, n onspecific but most likely reflective of prior microhemorrhages . Moderate patchy white matter hyperi ntensity, likely representing moderate small vessel ischemic disease. Moderate generalized parenchyma l volume loss. The basilar cisterns are patent. Flow voids are preserved. Basilar dolichoectasia. Rig ht maxillary and ethmoid mucosal thickening. Bilateral lens replacements, globes and orbital contents are otherwise within normal limits. IMPRESSION: No acute intracranial process detected. Reviewed, dictated and finalized at location K. RRAL RN
--- NOTE | ~2023-04-04 | CT_ITS ---
EXAMINATION: CT brain wo con DATE: 04/04/2023 12:01 INDICATION: Dizziness. Head injury. TECHNIQUE: Computed tomography (CT) of the head was performed without intravenous contrast. The mA wa s adjusted according to patient size. Iterative reconstruction technique was employed. The dose-lengt h product was 756.67 mGy-cm. COMPARISON: Head CT 12/02/2020 FINDINGS: There is no intracranial hemorrhage, acute infarction, or abnormal intracranial mass lesion . There are scattered areas of low attenuation in the cerebral white matter. The ventricles are ranjit l in size. There are likely changes of ocular lens replacement surgeries. There is mucosal thickening in the paranasal sinuses. There is thickening and sclerosis of the gonzalez of right maxillary sinus, c onsistent with chronic sinusitis. The mastoid air cells are normal. IMPRESSION: 1. Worsened moderate nonspecific cerebral white matter disease, which likely represents chronic small vessel ischemic disease. Reviewed, dictated and finalized at location E. OPERATOR IMPRESSION: 1. Worsened moderate nonspecific cerebral white matter disease, which likely re presents chronic small vessel ischemic disease.
--- NOTE | ~2023-04-04 | XR_ITS ---
XR chest 1V portable 04/07/2023 09:28 Indication: Fever. Procedure: AP portable chest Comparison: No prior studies for comparison. Findings: Bibasilar airspace disease is present which may represent pneumonia and/or atelectasis. No significant effusion. Borderline heart size. No pneumothorax. There are bilateral shoulder arthroplas ties. Impression: 1: Bibasilar airspace disease may represent pneumonia and/or atelectasis. Reviewed, dictated and finalized at location B. ET LIGHT WIRER Impression: 1: Bibasilar airspace disease may represent pneumonia and/or atelectasis.
--- NOTE | 2023-04-04 09:48 | ECG_ITS ---
Measurements Intervals [place] Rate: 78 P: 32 FL: 214 QRS: 20 QRSD: 92 T: -12 QT: 373 QTc: 427 Interpretive Statements SINUS RHYTHM WITH FIRST DEGREE AV BLOCK NONSPECIFIC ST & T-WAVE ABNORMALITY- ANTEROLAT/INF LEADS BASELINE ARTIFACT- V3-V6 BORDERLINE ECG COMPARED TO ECG 07/02/2020 17:10:05 SINUS RHYTHM NOW PRESENT Electronically Signed On 04-04-2023 10:06:35 POTATO CHIP MAKER by Nolan Andersen D.O.
[2023-04-04 10:33] LABS: Basophils Absolute Auto 0.1 K/mm3 (0.0-0.1); Basophils Percent Auto 0.4 % (0.2-1.2); Hematocrit 45.1 % (42.0-52.0); Hemoglobin 15.8 g/dL (14.0-18.0); Immature Granulocyte Absolute 0.05 K/mm3 (0.00-0.031); Immature Granulocyte Percent A 0.4 % (0-0.5); Lymphocytes Absolute Auto 0.46 K/mm3 (0.9-3.2); Lymphocytes Percent Auto 4.1 % (18.3-44.2); Mean Corpuscular Hemoglobin 31.7 pg (26-34); Mean Corpuscular Volume 90.4 fl (80-100); Mean Platelet Volume 9.7 fl (7.4-10.4); Monocytes Absolute Auto 1.3 K/mm3 (0.1-0.6); Monocytes Percent Auto 11.6 % (2.6-8.5); Neutrophils Absolute Auto 9.3 K/mm3 (1.3-6.7); Neutrophils Percent Auto 83.5 % (45.5-73.1); Platelet Count Result 162 k/mm3 (150-375); Red Blood Count 4.99 M/mm3 (4.6-6.20); Red Cell Distribution Width 11.9 % (11.5-14.5); White Blood Count 11.2 K/mm3 (4.5-10.0)
[2023-04-04 10:35] LABS: INR 1.7; Partial Thromboplastin Time 49.6 SECONDS (22.3-36.8); Prothrombin Time 21.3 Seconds (11.1-14.7)
[2023-04-04 10:52] LABS: Lipase 82 U/L (23-300)
[2023-04-04 11:10] LABS: Alanine Aminotransferase 32 U/L (6-50); Albumin Level 4.8 g/dL (3.5-5.1); Alkaline Phosphatase 66 U/L (38-126); Anion Gap 10 mmol/L (8-16); Aspartate Amino Transferase 101 U/L (17-59); Bilirubin,Total 1.9 mg/dL (0.2-1.3); Blood Urea Nitrogen 22 mg/dL (9-20); Carbon Dioxide 25 mmol/L (22-30); Chloride 92 mmol/L (98-107); Estimated CRCL calculation 37 ml/min; Estimated Glomerular Filt Rate 53; Glucose 138 mg/dL (65-110); Potassium 4.4 mmol/L (3.4-5.0); Sodium 127 mmol/L (137-145)
[2023-04-04 11:22] LABS: Troponin I 0.041 ng/mL (0.000-0.034)
--- NOTE | 2023-04-04 11:56 | ED.GENADULT ---
HPI - General Adult General Chief complaint: Dizziness <ANA Martinez Last Filed: 04/04/23 19:31> Stated complaint: Dizzy <ANA Martinez Last Filed: 04/04/23 19:31> Time Seen by Provider: 04/04/23 11:49 <ANA Martinez Last Filed: 04/04/23 19:31> Source: patient <ANA Martinez Last Filed: 04/04/23 19:31> Mode of arrival: ambulatory <ANA Martinez Last Filed: 04/04/23 19:31> Limitations: no limitations <ANA Martinez Filed: 04/04/23 19:31> History of Present Illness HPI narrative: this is a an 82-year-old male who presents to the ED with chief complaint of generalized weakness and lightheadedness for the past 3 days. Reports he has had a couple episodes of vomiting as well. Reports that he had a fall and hit his head a few days ago due to feeling generally weak. Reports general malaise and body aches. Denies any focal weakness. Denies fevers, chills, chest pain, shortness of breath, abdominal pain, urinary problems. <ANA Martinez Last Filed: 04/04/23 19:31> Related Data Home medications: Home Medications Medication Instructions Recorded Confirmed venlafaxine 37.5 mg 37.5 mg PO DAILY 10/07/19 03/27/23 capsule,extended release 24 hr (Effexor XR) mirtazapine 15 mg tablet (Remeron) 7.5 mg PO DAILY 11/09/19 03/27/23 <ANA Martinez Last Filed: 04/04/23 19:31> Allergies/adverse reactions: Allergies Allergy/AdvReac Type Severity Reaction Status Date / Time eszopiclone Allergy Unknown Unknown Verified 03/27/23 14:08 <ANA Martinez Last Filed: 04/04/23 19:31> Review of Systems Review of Systems: All systems as dictated in HPI <ANA Martinez Filed: 04/04/23 19:31> [facility] Past Medical History Medical History: Medical History Anxiety Arthritis Depression Diverticulosis DVT (deep venous thrombosis) Esophageal stricture GERD (gastroesophageal reflux disease) Hiatal hernia Insomnia Internal hemorrhoids Left rotator cuff tear Left wrist fracture MVP (mitral valve prolapse) Pulmonary embolism Rectal polyp Sleep apnea <Oswaldo Logan PA-C - Last Filed: 04/04/23 19:31> Surgical History Surgical History: Surgical History H/O left wrist surgery H/O prostatectomy H/O repair of left rotator cuff H/O right wrist surgery H/O shoulder replacement H/O thyroidectomy History of partial thyroidectomy Hx of tonsillectomy S/P TURP Status post left rotator cuff repair <ANA Martinez Last Filed: 04/04/23 19:31> Family History Family History: Family History Mother Cerebrovascular accident Sibling Family history of coronary artery disease <ANA Martinez Last Filed: 04/04/23 19:31> Social History Social History: Social History Smoking packs per day: 0.5 Smoking cigarettes per day: 10.0 Years smoked: 20 Smoking pack-years: 10.00 Smoking status: Former smoker Tobacco type: cigarettes Second hand tobacco smoke exposure: No Smoking end date: 03/17/81 Alcohol intake: current Drinks per week: 8 Substance use: never Substance use type: does not use Do You Feel Safe in your Home?: Yes Lack of Transportation: No Lack of Food: Never True Current Housing: I Have Housing Concerned About Future Housing: No Difficulty Paying Gas/Electric Bills: No Difficulty Paying for Meds: No Currently Unemployed: No Education: Master's Degree or Higher Difficulty w/ Childcare or Family Care: No Living arrangements: with family Occupation/Education: retired Gender identity (if verbalized by the patient): Male <Oswaldo Logan PA-C - Last Filed: 04/04/23 19:31> Exam Narrativ
[2023-04-04 12:25] LABS: Influenza A QL RT-PCR Positive (Negative); Influenza B QL RT-PCR Negative (Negative); SARS-CoV-2 RNA PCR Negative (Negative)
[2023-04-04] MEDS: SODIUM CHLORIDE 0.9% IV 1,000 ML 150 ML IV CONT (12:40)
--- NOTE | 2023-04-04 12:41 | ECG_ITS ---
Measurements Intervals [place] Rate: 65 P: 65 RI: 243 QRS: -14 QRSD: 97 T: -14 QT: 420 QTc: 438 Interpretive Statements SINUS RHYTHM WITH FIRST DEGREE AV BLOCK INCOMPLETE RIGHT BUNDLE BRANCH BLOCK NONSPECIFIC ST & T-WAVE ABNORMALITY- ANTEROLAT/INF LEADS BASELINE ARTIFACT- V3 COMPARED TO ECG 04/04/2023 09:56:50 NO SIGNIFICANT CHANGES Electronically Signed On 04-05-2023 8:02:30 REAL ESTATE ACCOUNT EXECUTIVE by Nolan Andersen D.O.
[2023-04-04 13:06] LABS: Troponin I 0.044 ng/mL (0.000-0.034)
[2023-04-04 13:47] LABS: NT Pro B Type Natriuretic Pept 1010 pg/mL (19.9-100)
[2023-04-04 14:28] LABS: Appearance Urine Clear (Clear); Bacteria Urine None Seen /hpf; Bilirubin Urine Negative (Negative); Blood Urine Trace (Negative); Color Urine Dark Yellow (Yellow); Glucose Urine UA Negative (Negative); Ketones Urine 1+ mg/dL (Negative); Leukocyte Esterase Ur Negative LEU/UL (Negative); Nitrate Urine Negative (Negative); Non Pathogenic Casts 0-2; Protein Urine 2+ mg/dL (Negative); RBC Urine 0-2 /hpf (0-2); Specific Grav Ur 1.027 (1.001-1.035); Squamous Epithelial Cell Urine None seen /hpf (Few); WBC Urine 0-5 /hpf
[2023-04-04 14:30] LABS: Add Urine Microscopic? YES
--- NOTE | 2023-04-04 16:23 | ECG_ITS ---
Measurements Intervals [place] Rate: 64 P: 42 NC: 238 QRS: 9 QRSD: 96 T: 0 QT: 243 QTc: 251 Interpretive Statements SINUS RHYTHM WITH FIRST DEGREE AV BLOCK NONSPECIFIC ST & T-WAVE ABNORMALITY- ANTEROLAT/INF LEADS BASELINE ARTIFACT- I, AVR, V3 BORDERLINE ECG COMPARED TO ECG 04/04/2023 12:41:37 NO SIGNIFICANT CHANGES Electronically Signed On 04-05-2023 8:04:42 VOCATIONAL REHABILITATION COUNSELOR by Nolan Andersen D.O.
[2023-04-04 16:56] LABS: Troponin I 0.039 ng/mL (0.000-0.034)
--- NOTE | 2023-04-04 21:00 | ADMGEN ---
This patient, Jules Alonso, was admitted to IMU Room 232-01. Patient/family oriented to hospital policies and general routines including ID bracelet, bed and alarms, visiting hours, pain management, procedures, bathroom and other care routines, personal items, smoking policy, room service/diet, and visiting hours. Information on how to activate the Rapid Response Team has been discussed. Patient/Family are encouraged to report perceived risks to care and to ask questions if they do not understand what they are told or what they should do.
[2023-04-04] MEDS: MIRTAZAPINE 7.5 MG TABLET PO (22:20)
[2023-04-04] MEDS: SODIUM CHLORIDE 0.9% IV 1,000 ML 125 ML IV CONT (22:20)
--- NOTE | 2023-04-04 23:29 | PM.IMHP ---
H&P: HPI History of Present Illness Date/Time: 04/04/23 23:29 Chief Complaint: Weakness, N/V/D, Cough Narrative: 82-year-old male presents here with weakness with past medical history of anxiety/depression, PE, GERD, insomnia, MVP, and sleep apnea. Patient reports that 2 days ago he began feeling weak and experienced a ground level fall when he was getting up after sitting watching TV. Denies LOC, subsequent pain, or injury from fall. States he has felt unsteady due to weakness. Also experiencing dry cough, rhinorrhea, decreased appetite, poor p.o. intake, and fatigue. Initially contributed symptoms to his recent increase in his Venlafaxine, was doubled by his psychiatrist. Patient has only taken 1 increased dose. Patient then called EMS this morning when he could not sit up or get out of bed. Arrived to the ED with vital signs stable. ED workup revealed patient to be Flu A+, slight leukocytosis with white count of 11.2, stable H&H, sodium of 127, creatinine of 1.3, glucose of 138, and troponin of 0.041. CXR showed opacity of the left lower lung zone which could represent pneumonia v atelectasis. Head CT showed worsened moderate nonspecific cerebral white matter disease. Review of Systems Review of Systems: All systems reviewed & are unremarkable except as noted in HPI and below [facility] Past Medical History Medical History (Updated 04/05/23 @ 00:04 by Juliana Nava APRN) Anxiety Arthritis Depression Diverticulosis DVT (deep venous thrombosis) Esophageal stricture GERD (gastroesophageal reflux disease) Hiatal hernia Hypothyroidism Insomnia Internal hemorrhoids Left rotator cuff tear Left wrist fracture MVP (mitral valve prolapse) Pulmonary embolism Rectal polyp Sleep apnea Surgical History Surgical History H/O left wrist surgery H/O prostatectomy H/O repair of left rotator cuff H/O right wrist surgery H/O shoulder replacement H/O thyroidectomy History of partial thyroidectomy Hx of tonsillectomy S/P TURP Status post left rotator cuff repair Family History Family History Mother Cerebrovascular accident Sibling Family history of coronary artery disease Social History Social History Smoking packs per day: 0.5 Smoking cigarettes per day: 10.0 Years smoked: 20 Smoking pack-years: 10.00 Smoking status: Former smoker Tobacco type: cigarettes Second hand tobacco smoke exposure: No Smoking end date: 03/17/81 Alcohol intake: current Drinks per week: 8 Substance use: never Substance use type: does not use Do You Feel Safe in your Home?: Yes Lack of Transportation: No Lack of Food: Never True Current Housing: I Have Housing Concerned About Future Housing: No Difficulty Paying Gas/Electric Bills: No Difficulty Paying for Meds: No Currently Unemployed: No Education: Master's Degree or Higher Difficulty w/ Childcare or Family Care: No Living arrangements: with family Occupation/Education: retired Gender identity (if verbalized by the patient): Male Meds Home Medications and Allergies Home Medications Medication Instructions Recorded Confirmed Type venlafaxine 37.5 mg 37.5 mg PO DAILY 10/07/19 04/04/23 History capsule,extended release 24 hr (Effexor XR) mirtazapine 15 mg tablet (Remeron) 7.5 mg PO DAILY 11/09/19 04/04/23 History rivaroxaban 10 mg tablet (Xarelto) 10 mg PO DAILY #90 tabs 11/21/20 04/04/23 Rx tadalafil 20 mg tablet (Cialis) 20 mg PO DAILY PRN sexual activity 09/25/22 04/04/23 Rx #10 tabs levothyroxine 75 mcg tablet See Rx Instructions .Route 10/25/22 04/04/23 Rx .COMPLEX #90 tabs mirtazapine 15 mg tablet 15 mg 04/04/23 History Allergies Allergy/AdvReac Type Severity Reaction Status Date / Time eszopiclone Allergy Unknown Unknown Verified 03/27
[2023-04-05] VITALS (14 sets, daily range): BP systolic 111–130; BP diastolic 53–75; PULSE 50–67; RESP 16–20; TEMP 36.4–37.4; O2SAT 94–99
[2023-04-05] MEDS: AZITHROMYCIN 500 MG/NS 250 ML 500 MG/250 ML BAG 250 MG IVPB ×2 (01:30→23:02)
[2023-04-05] MEDS: SODIUM CHLORIDE 0.9% IV 1,000 ML 125 ML IV CONT ×3 (02:44→09:35)
[2023-04-05 04:58] LABS: Basophils Percent Auto 0.3 % (0.2-1.2); Eosinophils Percent Auto 0.1 % (0-4.4); Hematocrit 40.9 % (42.0-52.0); Immature Granulocyte Absolute 0.03 K/mm3 (0.00-0.031); Immature Granulocyte Percent A 0.3 % (0-0.5); Immature Platelet Fraction Pct 3.3 % (0.9-11.2); Lymphocytes Percent Auto 7.7 % (18.3-44.2); Mean Corpuscular HGB Conc 34.2 g/dl (32-36); Mean Corpuscular Hemoglobin 31.6 pg (26-34); Mean Corpuscular Volume 92.3 fl (80-100); Mean Platelet Volume 9.6 fl (7.4-10.4); Monocytes Absolute Auto 1.2 K/mm3 (0.1-0.6); Monocytes Percent Auto 13.7 % (2.6-8.5); Neutrophils Percent Auto 77.9 % (45.5-73.1); Platelet Count Result 137 k/mm3 (150-375); Red Blood Count 4.43 M/mm3 (4.6-6.20); Red Cell Distribution Width 11.9 % (11.5-14.5)
[2023-04-05 05:29] LABS: Alanine Aminotransferase 34 U/L (6-50); Albumin Level 3.7 g/dL (3.5-5.1); Alkaline Phosphatase 57 U/L (38-126); Anion Gap 9 mmol/L (8-16); Aspartate Amino Transferase 114 U/L (17-59); Bilirubin,Total 1.2 mg/dL (0.2-1.3); Blood Urea Nitrogen 20 mg/dL (9-20); Calcium 8.1 mg/dL (8.4-10.2); Carbon Dioxide 21 mmol/L (22-30); Chloride 100 mmol/L (98-107); Estimated CRCL calculation 45 ml/min; Estimated Glomerular Filt Rate > 60; Glucose 97 mg/dL (65-110); Sodium 130 mmol/L (137-145)
[2023-04-05] MEDS: LEVOTHYROXINE SODIUM 75 MCG TABLET PO (06:08)
[2023-04-05] MEDS: RIVAROXABAN 10 MG TABLET PO (09:33)
[2023-04-05] MEDS: BENZONATATE 100 MG CAPSULE PO ×3 (09:33→17:59)
[2023-04-05] MEDS: BENZOCAINE/MENTHOL (*BKC) 18 EA LOZENGE 1 LOZENGE PO (09:33)
[2023-04-05] MEDS: VENLAFAXINE HCL XR 37.5 MG CAP PO (09:33)
--- NOTE | 2023-04-05 09:53 | P.PNIM_ITS ---
Progress Note: A&P Assessment and Plan (1) Hyponatremia: Code(s): E87.1 - Hypo-osmolality and hyponatremia Status: Acute (2) Influenza A: Code(s): J10.1 - Influenza due to other identified influenza virus with other respiratory manifestations Status: Acute (3) Acute hyponatremia: Code(s): E87.1 - Hypo-osmolality and hyponatremia Status: Acute (4) Pneumonia: Qualifiers: Laterality: left Lung location: lower lobe of lung Pneumonia type: due to unspecified organism Qualified Code(s): J18.9 - Pneumonia, unspecified organism Code(s): J18.9 - Pneumonia, unspecified organism Status: Acute Plan 82-year-old male presents here with weakness with past medical history of anxiety/depression, PE, GERD, insomnia, MVP, and sleep apnea. Patient reports that 2 days ago he began feeling weak and experienced a ground level fall when he was getting up after sitting watching TV.? Denies LOC, subsequent pain, or injury from fall.? States he has felt unsteady due to weakness.? Also experiencing dry cough, rhinorrhea, decreased appetite, poor p.o. intake, and fatigue.? Arrived to the ED with vital signs stable.? ED workup revealed patient to be Flu A+, slight leukocytosis with white count of 11.2, stable H&H, sodium of 127, creatinine of 1.3, glucose of 138, and troponin of 0.041.? CXR showed opacity of the left lower lung zone which could represent pneumonia v atelectasis.? Head CT showed worsened moderate nonspecific cerebral white matter disease. (1) Pneumonia: ?Qualifiers: ?Pneumonia type:?due to unspecified organism??Laterality:?left??Lung location:?lower lobe of lung? Qualified Code(s):?J18.9 - Pneumonia, unspecified organism ?Code(s): J18.9 - Pneumonia, unspecified organism ?Status:?Acute ?Assessment and Plan: CXR:? Volume loss in left hemothorax with opacity of the left lower lung zone most likely atelectasis with differential including pneumonia. WBC 11.2 and cocurrent Flu A. Started ceftriaxone and azithromycin for CAP coverage. Continue supportive measures. Start Tamiflu (2) Hyponatremia: ?Code(s): E87.1 - Hypo-osmolality and hyponatremia ?Status:?Acute ?Assessment and Plan: Sodium previously 136-143 since 2020.? Recent lab work done on 03/29 and sodium 131.? Today 127. Started on NS at 150 mL/hr, reduced to 125 mL/hr.? Patient reporting feeling better with fluid administration.? Dry appearance and has since developed diarrhea today after arrival to the ED. will increase rate to 500 mL/hr to complete L of NS. then reduce back to 125 mL/hr. Adding urine osmolarity, serum osmolarity, and urine sodium. Pending Continue to trend electrolytes. Sodium is trending up, possible poor intake and side effects of Effexor (3) Influenza A: ?Code(s): J10.1 - Influenza due to other identified influenza virus with other respiratory manifestations ?Status:?Acute ?Assessment and Plan: Symptom onset 2-3 days ago, not candidate for Tamiflu. Melinda Mcghee and isa ordered. Tylenol p.r.n. Patient educated to continue activity as he can tolerate, i.e. getting up to chair and moving himself in the bed to avoid deconditioning. (4) Hypothyroidism: ?Qualifiers: ?Hypothyroidism type:?unspecified? Qualified Code(s):?E03.9 - Hypothyroidism, unspecified ?Code(s): E03.9 - Hypothyroidism, unspecified ?Status:?Acute ?Assessment and Plan: Last TSH 4.14 on 03/29/2023. Continue home levothyroxine at 75 mcg p.o. daily. Fall States he
[2023-04-05] MEDS: SODIUM CHLORIDE 0.9% IV 1,000 ML 100 ML IV CONT ×2 (11:04→21:31)
[2023-04-05] MEDS: OSELTAMIVIR PHOSPHATE 75 MG CAPSULE PO ×2 (11:04→21:32)
[2023-04-05 12:29] LABS: Sodium Urine Random 35 meq/L
[2023-04-05 12:57] LABS: Toxigenic C. Diff NEGATIVE (NEGATIVE)
[2023-04-05] MEDS: SODIUM CHLORIDE 1 GM TABLET PO ×2 (14:33→17:59)
[2023-04-05] MEDS: MIRTAZAPINE 7.5 MG TABLET PO (21:32)
[2023-04-06] VITALS (12 sets, daily range): BP systolic 105–144; BP diastolic 60–76; PULSE 43–61; RESP 16–18; TEMP 36.1–36.9; O2SAT 94–100
[2023-04-06] MEDS: LEVOTHYROXINE SODIUM 75 MCG TABLET PO (06:57)
[2023-04-06] MEDS: OSELTAMIVIR PHOSPHATE 75 MG CAPSULE PO ×2 (09:15→20:58)
[2023-04-06] MEDS: SODIUM CHLORIDE 0.9% IV 1,000 ML 100 ML IV CONT ×2 (09:15→23:57)
[2023-04-06] MEDS: BENZONATATE 100 MG CAPSULE PO ×3 (09:15→17:48)
[2023-04-06] MEDS: SODIUM CHLORIDE 1 GM TABLET PO ×3 (09:16→17:48)
[2023-04-06] MEDS: RIVAROXABAN 10 MG TABLET PO (09:16)
--- NOTE | 2023-04-06 10:09 | PM.IMPN ---
Progress Note: A&P Assessment and Plan (1) Hyponatremia: Code(s): E87.1 - Hypo-osmolality and hyponatremia Status: Acute (2) Influenza A: Code(s): J10.1 - Influenza due to other identified influenza virus with other respiratory manifestations Status: Acute (3) Acute hyponatremia: Code(s): E87.1 - Hypo-osmolality and hyponatremia Status: Acute (4) Pneumonia: Qualifiers: Laterality: left Lung location: lower lobe of lung Pneumonia type: due to unspecified organism Qualified Code(s): J18.9 - Pneumonia, unspecified organism Code(s): J18.9 - Pneumonia, unspecified organism Status: Acute Plan 82-year-old male presents here with weakness with past medical history of anxiety/depression, PE, GERD, insomnia, MVP, and sleep apnea. Patient reports that 2 days ago he began feeling weak and experienced a ground level fall when he was getting up after sitting watching TV.? Denies LOC, subsequent pain, or injury from fall.? States he has felt unsteady due to weakness.? Also experiencing dry cough, rhinorrhea, decreased appetite, poor p.o. intake, and fatigue.? Arrived to the ED with vital signs stable.? ED workup revealed patient to be Flu A+, slight leukocytosis with white count of 11.2, stable H&H, sodium of 127, creatinine of 1.3, glucose of 138, and troponin of 0.041.? CXR showed opacity of the left lower lung zone which could represent pneumonia v atelectasis.? Head CT showed worsened moderate nonspecific cerebral white matter disease. (1) Pneumonia: ?Qualifiers: ?Pneumonia type:?due to unspecified organism??Laterality:?left??Lung location:?lower lobe of lung? Qualified Code(s):?J18.9 - Pneumonia, unspecified organism ?Code(s): J18.9 - Pneumonia, unspecified organism ?Status:?Acute ?Assessment and Plan: CXR:? Volume loss in left hemothorax with opacity of the left lower lung zone most likely atelectasis with differential including pneumonia. WBC 11.2 and cocurrent Flu A. Started ceftriaxone and azithromycin for CAP coverage. Continue supportive measures. Start Tamiflu (2) Hyponatremia: ?Code(s): E87.1 - Hypo-osmolality and hyponatremia ?Status:?Acute ?Assessment and Plan: Sodium previously 136-143 since 2020.? Recent lab work done on 03/29 and sodium 131.? Today 127. Started on NS at 150 mL/hr, reduced to 125 mL/hr.? Patient reporting feeling better with fluid administration.? Dry appearance and has since developed diarrhea today after arrival to the ED. will increase rate to 500 mL/hr to complete L of NS. then reduce back to 125 mL/hr. Adding urine osmolarity, serum osmolarity, and urine sodium. Pending Continue to trend electrolytes. Sodium is trending up, possible poor intake and side effects of Effexor (3) Influenza A: ?Code(s): J10.1 - Influenza due to other identified influenza virus with other respiratory manifestations ?Status:?Acute ?Assessment and Plan: Symptom onset 2-3 days ago, not candidate for Tamiflu. Melinda Mcghee and isa ordered. Tylenol p.r.n. Patient educated to continue activity as he can tolerate, i.e. getting up to chair and moving himself in the bed to avoid deconditioning. (4) Hypothyroidism: ?Qualifiers: ?Hypothyroidism type:?unspecified? Qualified Code(s):?E03.9 - Hypothyroidism, unspecified ?Code(s): E03.9 - Hypothyroidism, unspecified ?Status:?Acute ?Assessment and Plan: Last TSH 4.14 on 03/29/2023. Continue home levothyroxine at 75 mcg p.o. daily. Fall States he has felt unsteady with walking in past 1 year, patient had false yesterday because of worsening weakness, lower extremities CT: Worsened moderate nonspecific cerebral white matter disease, which likely represents chronic small vessel ischemic disease. brain MRI with without contrast showed No acute intracranial process detected 04/05/23 Consult PT OT for evaluation MRI of brain: No abnorm
[2023-04-06 10:57] LABS: Basophils Percent Auto 0.5 % (0.2-1.2); Eosinophils Percent Auto 0.9 % (0-4.4); Hemoglobin 11.8 g/dL (14.0-18.0); Immature Granulocyte Absolute 0.01 K/mm3 (0.00-0.031); Immature Granulocyte Percent A 0.2 % (0-0.5); Lymphocytes Percent Auto 11.4 % (18.3-44.2); Mean Corpuscular HGB Conc 33.7 g/dl (32-36); Mean Corpuscular Hemoglobin 31.4 pg (26-34); Mean Corpuscular Volume 93.1 fl (80-100); Mean Platelet Volume 9.5 fl (7.4-10.4); Monocytes Absolute Auto 0.6 K/mm3 (0.1-0.6); Monocytes Percent Auto 13.9 % (2.6-8.5); Neutrophils Absolute Auto 3.2 K/mm3 (1.3-6.7); Neutrophils Percent Auto 73.1 % (45.5-73.1); Platelet Count Result 113 k/mm3 (150-375); Red Blood Count 3.76 M/mm3 (4.6-6.20); White Blood Count 4.4 K/mm3 (4.5-10.0)
[2023-04-06 11:07] LABS: Anion Gap 5 mmol/L (8-16); Blood Urea Nitrogen 10 mg/dL (9-20); Calcium 7.8 mg/dL (8.4-10.2); Carbon Dioxide 24 mmol/L (22-30); Chloride 104 mmol/L (98-107); Estimated CRCL calculation 55 ml/min; Estimated Glomerular Filt Rate > 60; Glucose 131 mg/dL (65-110); Potassium 3.7 mmol/L (3.4-5.0); Sodium 133 mmol/L (137-145)
--- NOTE | 2023-04-06 13:40 | PC.NURSE ---
This patient, Jules Alonso, was received from IMU on 04/06/23 at 1340. Patient/family oriented to unit policies and routines
--- NOTE | 2023-04-06 13:40 | PC.NURSE ---
This patient, Jules Alonso, was transferred to [facility] via bed without issue on 04/06/23 at 1320. Personal belongings sent with patient. Report given to LESLI Ovalles. Appropriate documentation sent with patient.
[2023-04-06] MEDS: MIRTAZAPINE 7.5 MG TABLET PO (20:58)
[2023-04-06] MEDS: AZITHROMYCIN 500 MG/NS 250 ML 500 MG/250 ML BAG 250 MG IVPB (23:56)
[2023-04-07] VITALS (9 sets, daily range): BP systolic 126–164; BP diastolic 61–71; PULSE 41–69; RESP 16–18; TEMP 36.6–38.2; O2SAT 93–99
[2023-04-07] MEDS: ACETAMINOPHEN 325 MG TABLET 650 MG PO (04:42)
[2023-04-07] MEDS: LEVOTHYROXINE SODIUM 75 MCG TABLET PO (04:43)
[2023-04-07] MEDS: RIVAROXABAN 10 MG TABLET PO (08:30)
[2023-04-07] MEDS: SODIUM CHLORIDE 1 GM TABLET PO ×3 (08:30→17:27)
[2023-04-07] MEDS: BENZONATATE 100 MG CAPSULE PO ×3 (08:30→17:27)
[2023-04-07] MEDS: OSELTAMIVIR PHOSPHATE 75 MG CAPSULE PO ×2 (08:30→21:28)
[2023-04-07] MEDS: SODIUM CHLORIDE 0.9% IV 1,000 ML 100 ML IV CONT ×2 (08:32→21:27)
--- NOTE | 2023-04-07 08:52 | PM.IMPN ---
Progress Note: A&P Assessment and Plan (1) Hyponatremia: Code(s): E87.1 - Hypo-osmolality and hyponatremia Status: Acute (2) Influenza A: Code(s): J10.1 - Influenza due to other identified influenza virus with other respiratory manifestations Status: Acute (3) Acute hyponatremia: Code(s): E87.1 - Hypo-osmolality and hyponatremia Status: Acute (4) Pneumonia: Qualifiers: Laterality: left Lung location: lower lobe of lung Pneumonia type: due to unspecified organism Qualified Code(s): J18.9 - Pneumonia, unspecified organism Code(s): J18.9 - Pneumonia, unspecified organism Status: Acute Plan 82-year-old male presents here with weakness with past medical history of anxiety/depression, PE, GERD, insomnia, MVP, and sleep apnea. Patient reports that 2 days ago he began feeling weak and experienced a ground level fall when he was getting up after sitting watching TV.? Denies LOC, subsequent pain, or injury from fall.? States he has felt unsteady due to weakness.? Also experiencing dry cough, rhinorrhea, decreased appetite, poor p.o. intake, and fatigue.? Arrived to the ED with vital signs stable.? ED workup revealed patient to be Flu A+, slight leukocytosis with white count of 11.2, stable H&H, sodium of 127, creatinine of 1.3, glucose of 138, and troponin of 0.041.? CXR showed opacity of the left lower lung zone which could represent pneumonia v atelectasis.? Head CT showed worsened moderate nonspecific cerebral white matter disease. (1) Pneumonia: ?Qualifiers: ?Pneumonia type:?due to unspecified organism??Laterality:?left??Lung location:?lower lobe of lung? Qualified Code(s):?J18.9 - Pneumonia, unspecified organism ?Code(s): J18.9 - Pneumonia, unspecified organism ?Status:?Acute ?Assessment and Plan: CXR:? Volume loss in left hemothorax with opacity of the left lower lung zone most likely atelectasis with differential including pneumonia. WBC 11.2 and cocurrent Flu A. Started ceftriaxone and azithromycin for CAP coverage. Continue supportive measures. Start Tamiflu Fever 04/07 Temperature 100.7 x2 over the night, diaphoretic, general weakness, Patient on ceftriaxone, azithromycin and Tamiflu Follow-up CBC, chest x-ray, urinalysis, Stool culture on 04/05 still pending (2) Hyponatremia: ?Code(s): E87.1 - Hypo-osmolality and hyponatremia ?Status:?Acute ?Assessment and Plan: Sodium previously 136-143 since 2020.? Recent lab work done on 03/29 and sodium 131.? Today 127. Started on NS at 150 mL/hr, reduced to 125 mL/hr.? Patient reporting feeling better with fluid administration.? Dry appearance and has since developed diarrhea today after arrival to the ED. will increase rate to 500 mL/hr to complete L of NS. then reduce back to 125 mL/hr. Adding urine osmolarity, serum osmolarity, and urine sodium Pending possible poor intake and side effects of Effexor Sodium level is trending up (3) Influenza A: ?Code(s): J10.1 - Influenza due to other identified influenza virus with other respiratory manifestations ?Status:?Acute ?Assessment and Plan: Symptom onset 2-3 days ago, not candidate for Tamiflu. Melinda Mcghee and isa ordered. Tylenol p.r.n. Patient educated to continue activity as he can tolerate, i.e. getting up to chair and moving himself in the bed to avoid deconditioning. (4) Hypothyroidism: ?Qualifiers: ?Hypothyroidism type:?unspecified? Qualified Code(s):?E03.9 - Hypothyroidism, unspecified ?Code(s): E03.9 - Hypothyroidism, unspecified ?Status:?Acute ?Assessment and Plan: Last TSH 4.14 on 03/29/2023. Continue home levothyroxine at 75 mcg p.o. daily. Fall States he has felt unsteady with walking in past 1 year, patient had false yesterday because of worsening weakness, lower extremities CT: Worsened moderate nonspecific cerebral white matter disease, which likely represents
[2023-04-07 10:19] LABS: Basophils Percent Auto 0.3 % (0.2-1.2); Eosinophils Percent Auto 0.6 % (0-4.4); Hematocrit 39.4 % (42.0-52.0); Hemoglobin 13.1 g/dL (14.0-18.0); Immature Granulocyte Absolute 0.02 K/mm3 (0.00-0.031); Immature Granulocyte Percent A 0.3 % (0-0.5); Lymphocytes Absolute Auto 0.62 K/mm3 (0.9-3.2); Lymphocytes Percent Auto 9.9 % (18.3-44.2); Mean Corpuscular HGB Conc 33.2 g/dl (32-36); Mean Corpuscular Hemoglobin 31.1 pg (26-34); Mean Corpuscular Volume 93.6 fl (80-100); Mean Platelet Volume 9.5 fl (7.4-10.4); Monocytes Absolute Auto 0.7 K/mm3 (0.1-0.6); Monocytes Percent Auto 10.9 % (2.6-8.5); Neutrophils Absolute Auto 4.9 K/mm3 (1.3-6.7); Platelet Count Result 150 k/mm3 (150-375); Red Blood Count 4.21 M/mm3 (4.6-6.20); Red Cell Distribution Width 12.2 % (11.5-14.5); White Blood Count 6.2 K/mm3 (4.5-10.0)
[2023-04-07 10:31] LABS: Anion Gap 7 mmol/L (8-16); Blood Urea Nitrogen 8 mg/dL (9-20); Calcium 8.4 mg/dL (8.4-10.2); Carbon Dioxide 24 mmol/L (22-30); Chloride 102 mmol/L (98-107); Estimated CRCL calculation 55 ml/min; Estimated Glomerular Filt Rate > 60; Glucose 121 mg/dL (65-110); Potassium 3.6 mmol/L (3.4-5.0); Sodium 133 mmol/L (137-145)
[2023-04-07 12:35] LABS: Add Urine Microscopic? YES; Appearance Urine Cloudy (Clear); Bacteria Urine None Seen /hpf; Bilirubin Urine Negative (Negative); Blood Urine Negative (Negative); Color Urine Yellow (Yellow); Glucose Urine UA Negative (Negative); Ketones Urine Negative (Negative); Leukocyte Esterase Ur Negative LEU/UL (NEGATIVE); Nitrate Urine Negative (Negative); Non Pathogenic Casts 0-2; Protein Urine Negative (Negative); RBC Urine 0-2 /hpf (0-2); Specific Grav Ur 1.014 (1.001-1.035); Squamous Epithelial Cell Urine None seen /hpf (Few); Urobilinogen Urine 0.2 mg/dL (<2.0); WBC Urine 0-5 /hpf (0-3); pH Urine 6.5 (5.0-9.0)
[2023-04-07 20:05] LABS: Osmolality, Urine 819 mOsm/kg (50-1200)
[2023-04-07] MEDS: MIRTAZAPINE 7.5 MG TABLET PO (21:27)
[2023-04-07] MEDS: AZITHROMYCIN 250 MG TABLET 500 MG PO (21:27)
[2023-04-08] VITALS: PULSE 39
[2023-04-08 04:00] VITALS: PULSE 46
[2023-04-08] MEDS: SODIUM CHLORIDE 0.9% IV 1,000 ML 100 ML IV CONT (05:40)
[2023-04-08] MEDS: LEVOTHYROXINE SODIUM 75 MCG TABLET PO (05:41)
[2023-04-08 05:47] LABS: Basophils Percent Auto 0.9 % (0.2-1.2); Eosinophils Absolute Auto 0.1 K/mm3 (0-0.3); Eosinophils Percent Auto 2.5 % (0-4.4); Hematocrit 36.1 % (42.0-52.0); Immature Granulocyte Absolute 0.02 K/mm3 (0.00-0.031); Immature Granulocyte Percent A 0.4 % (0-0.5); Lymphocytes Absolute Auto 0.83 K/mm3 (0.9-3.2); Lymphocytes Percent Auto 18.6 % (18.3-44.2); Mean Corpuscular HGB Conc 33.2 g/dl (32-36); Mean Corpuscular Hemoglobin 31.3 pg (26-34); Mean Corpuscular Volume 94.3 fl (80-100); Mean Platelet Volume 9.7 fl (7.4-10.4); Monocytes Absolute Auto 0.6 K/mm3 (0.1-0.6); Monocytes Percent Auto 13.9 % (2.6-8.5); Neutrophils Absolute Auto 2.9 K/mm3 (1.3-6.7); Neutrophils Percent Auto 63.7 % (45.5-73.1); Platelet Count Result 154 k/mm3 (150-375); Red Blood Count 3.83 M/mm3 (4.6-6.20); Red Cell Distribution Width 12.2 % (11.5-14.5); White Blood Count 4.5 K/mm3 (4.5-10.0)
[2023-04-08 06:00] VITALS: BP 121/52; PULSE 52; RESP 18; TEMP 36.4; O2SAT 96
[2023-04-08 06:16] LABS: Anion Gap 5 mmol/L (8-16); Blood Urea Nitrogen 8 mg/dL (9-20); Calcium 8.3 mg/dL (8.4-10.2); Carbon Dioxide 22 mmol/L (22-30); Chloride 107 mmol/L (98-107); Estimated CRCL calculation 61 ml/min; Estimated Glomerular Filt Rate > 60; Glucose 77 mg/dL (65-110); Potassium 3.7 mmol/L (3.4-5.0); Sodium 134 mmol/L (137-145)
[2023-04-08] MEDS: OSELTAMIVIR PHOSPHATE 75 MG CAPSULE PO (09:11)
[2023-04-08] MEDS: SODIUM CHLORIDE 1 GM TABLET PO ×2 (09:11→12:48)
[2023-04-08] MEDS: RIVAROXABAN 10 MG TABLET PO (09:11)
[2023-04-08] MEDS: BENZONATATE 100 MG CAPSULE PO ×2 (09:11→12:48)
--- NOTE | 2023-04-08 12:55 | PM.DS ---
DS: Admitting Diagnosis Discharge Date 04/08/2023 Admitting Diagnosis Weakness, N/V/D, Cough DS: Discharge Diagnosis Discharge Diagnosis (1) Hyponatremia: Code(s): E87.1 - Hypo-osmolality and hyponatremia Status: Acute (2) Influenza A: Code(s): J10.1 - Influenza due to other identified influenza virus with other respiratory manifestations Status: Acute (3) Acute hyponatremia: Code(s): E87.1 - Hypo-osmolality and hyponatremia Status: Acute (4) Pneumonia: Qualifiers: Laterality: left Lung location: lower lobe of lung Pneumonia type: due to unspecified organism Qualified Code(s): J18.9 - Pneumonia, unspecified organism Code(s): J18.9 - Pneumonia, unspecified organism Status: Acute Plan (1) Pneumonia: ?Qualifiers: ?Pneumonia type:?due to unspecified organism??Laterality:?left??Lung location:?lower lobe of lung? Qualified Code(s):?J18.9 - Pneumonia, unspecified organism ?Code(s): J18.9 - Pneumonia, unspecified organism ?Status:?Acute ?Assessment and Plan: CXR:? Volume loss in left hemothorax with opacity of the left lower lung zone most likely atelectasis with differential including pneumonia. WBC 11.2 and cocurrent Flu A. Started ceftriaxone and azithromycin for CAP coverage. Continue supportive measures. Started Tamiflu OK to Dc today with tamiflu and course of ABX Fever 04/07 Temperature 100.7 x2 over the night, diaphoretic, general weakness, Patient on ceftriaxone, azithromycin and Tamiflu (2) Hyponatremia: ?Code(s): E87.1 - Hypo-osmolality and hyponatremia ?Status:?Acute ?Assessment and Plan: Sodium previously 136-143 since 2020.? Recent lab work done on 03/29 and sodium 131.? Today 127. Started on NS at 150 mL/hr, reduced to 125 mL/hr.? Patient reporting feeling better with fluid administration.? Dry appearance and has since developed diarrhea today after arrival to the ED. will increase rate to 500 mL/hr to complete L of NS. then reduce back to 125 mL/hr. Adding urine osmolarity, serum osmolarity, and urine sodium Pending possible poor intake and side effects of Effexor Sodium level is 134 on DC (3) Influenza A: ?Code(s): J10.1 - Influenza due to other identified influenza virus with other respiratory manifestations ?Status:?Acute ?Assessment and Plan: Symptom onset 2-3 days ago, not candidate for Tamiflu. Tessalon Perles and lozenge ordered. Tylenol p.r.n. Pt had PT in hospital (4) Hypothyroidism: ?Qualifiers: ?Hypothyroidism type:?unspecified? Qualified Code(s):?E03.9 - Hypothyroidism, unspecified ?Code(s): E03.9 - Hypothyroidism, unspecified ?Status:?Acute ?Assessment and Plan: Last TSH 4.14 on 03/29/2023. Continue home levothyroxine at 75 mcg p.o. daily. Fall States he has felt unsteady with walking in past 1 year, patient had false yesterday because of worsening weakness, lower extremities CT: Worsened moderate nonspecific cerebral white matter disease, which likely represents chronic small vessel ischemic disease. brain MRI with without contrast showed No acute intracranial process detected 04/05/23 Consult PT OT for evaluation MRI of brain: No abnormal restricted diffusion to suggest acute ischemic infarct. No MRI evidence of hemorrhage or extra-axial collection. Small foci of susceptibility in the agustín and the right cerebellar peduncle, nonspecific but most likely reflective of prior microhemorrhages . Moderate patchy white matter hyperintensity, likely representing moderate small vessel ischemic disease. Moderate generalized parenchymal volume loss. The basilar cisterns are patent. Flow voids are preserved. Basilar dolichoectasia. Right maxillary and ethmoid mucosal thickening. Bilateral lens replacements, globes and orbital contents are otherwise within normal limits. No acute intracranial process detected. Diarrhea Follow-up C diff, stool culture c d
[2023-04-08 14:05] VITALS: BP 133/69; PULSE 63; RESP 17; TEMP 36.9; O2SAT 97
== END 2023-04-08 15:50 | disposition home or self-care (01) | DRG 194 ==
LOC: ANHED 17:33 → ANHIMU 17:43 → ANH3MED 04-06 13:59
PROVIDERS: Emergency Medicine; Hospitalist; Student in an Organized Health Care Education/Training Program; Admitting Provider Internal Medicine; Emergency Provider Physician Assistant; PCP Family Medicine; Visit Provider Family Medicine
DX: J10.00 Influenza due to other identified influenza virus with unspecified type of pneumonia (principal); E87.1 Hypo-osmolality and hyponatremia; E86.0 Dehydration; I34.1 Nonrheumatic mitral (valve) prolapse; K57.30 Diverticulosis of large intestine without perforation or abscess without bleeding; K22.2 Esophageal obstruction; K21.9 Gastro-esophageal reflux disease without esophagitis; K44.9 Diaphragmatic hernia without obstruction or gangrene; G47.30 Sleep apnea, unspecified; M19.90 Unspecified osteoarthritis, unspecified site; R19.7 Diarrhea, unspecified; F41.9 Anxiety disorder, unspecified; F32.A Depression, unspecified; Z96.619 Presence of unspecified artificial shoulder joint; Z86.718 Personal history of other venous thrombosis and embolism; Z86.711 Personal history of pulmonary embolism; Z87.19 Personal history of other diseases of the digestive system; Z87.891 Personal history of nicotine dependence; Z79.01 Long term (current) use of anticoagulants; E03.9 Hypothyroidism, unspecified
CPT/HCPCS: 36415; 70450; 70551; 71045; 71046; 80048; 80053; 81001; 83690; 83880; 83930; 83935; 84300; 84484; 85025; 85055; 85610; 85730; 87040; 87045; 87427; 87449; 87493; 87636; 93005; 96361; 96365; 96366; 96368; 97161; 97165; 99285; A9270; G0378; J0456; J0696; J7030

== ENCOUNTER 2023-05-07 16:10 | Outpatient (CLI) | payer BC, SELFPAY ==
--- NOTE | ~2023-05-07 | XR_ITS ---
Clinical Indication: Cough PA and lateral views of the chest: Comparison: 04/07/2023 Findings: 8 mm right basilar pulmonary nodule present, not clearly seen on prior exam. Possible 5 mm left basilar pulmonary nodule.. Cardiomediastinal silhouette is within normal limits. Bilateral shou lder arthroplasties are present. Impression: Suspected bibasilar pulmonary nodules, as detailed above, not clearly seen on prior exam. Chest CT sh ould be considered to confirm or exclude. Reviewed, dictated and finalized at location M. LEUM PRINTER Impression: Suspected bibasilar pulmonary nodules, as detailed above, not clearly seen on p rior exam. Chest CT should be considered to confirm or exclude.
[2023-05-07 17:45] LABS: Influenza A QL RT-PCR Negative (Negative); Influenza B QL RT-PCR Negative (Negative); RSV RNA, RT-PCR Positive (Negative); SARS-CoV-2 RNA PCR Negative (Negative)
== END 2023-05-07 16:11 | disposition home or self-care (01) ==
PROVIDERS: PCP Family Medicine; Visit Provider Physician Assistant Medical
DX: R91.8 Other nonspecific abnormal finding of lung field (principal); R05.9 Cough, unspecified; R50.9 Fever, unspecified; Z20.822 Contact with and (suspected) exposure to COVID-19
CPT/HCPCS: 71046; 87637

== ENCOUNTER 2023-06-11 15:06 | Outpatient (CLI) | payer BC, SELFPAY ==
--- NOTE | ~2023-06-11 | CT_ITS ---
EXAMINATION:CT diagnostic chest wo con DATE: 06/11/2023 15:47 INDICATION: Other nonspecific abnormal findings in lung field. TECHNIQUE: Computed tomography (CT) of the chest was performed without intravenous contrast. Automate d exposure control and iterative reconstruction technique were employed. The dose-length product (DLP ) was 215.30 mGy-cm. COMPARISON: Chest CT 07/22/2016, chest 2 views 05/07/2023 FINDINGS: The lungs demonstrate mild atelectasis. No pleural effusion. There are bilateral shoulder a rthroplasties. There are changes of left hemithyroidectomy. The heart size is normal. There are coron lenard artery calcifications. No pericardial effusion. There is a fusiform aneurysm of ascending aorta m easuring 5.1 cm. There is a gallstone in the gallbladder, which is normal in size. 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 There are healing and healed bilateral rib fractures. There is severe cervical, thoracic, and lumbar spondylosis. There is a chronic compression fracture of L2. IMPRESSION: 1. No abnormal lung nodule to correlate with the chest radiograph finding. 2. 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 3. 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 Reviewed, dictated and finalized at location A.
--- NOTE | ~2023-06-11 | CT_ITS ---
EXAMINATION: CT brain wo con DATE: 06/11/2023 15:46 INDICATION: Status post fall. Patient on cerebral toe. TECHNIQUE: Computed tomography (CT) of the head was performed without intravenous contrast. The dose- length product was 756.67 mGy-cm. Automated exposure control and iterative reconstruction technique w ere employed. COMPARISON: CT dated 04/04/2023 FINDINGS: Generalized atrophy. There are scattered mild periventricular and subcortical white matter changes, most likely related to small vessel ischemic disease (microangiopathy). No ventriculomegaly or midline shift. Basilar cisterns are patent. There is intracranial atherosclerosis. There is mucosa l thickening of the maxillary, ethmoid and sphenoid sinuses. Mastoids are pneumatized. No depressed s kull fractures. IMPRESSION: 1. No acute intracranial abnormality. 2: Moderate sinus disease. 3: Chronic age-related findings. Reviewed, dictated and finalized at location B.
== END 2023-06-11 15:07 | disposition home or self-care (01) ==
PROVIDERS: PCP Family Medicine; Referring Provider Physician Assistant Medical; Visit Provider Internal Medicine Nephrology
DX: R91.8 Other nonspecific abnormal finding of lung field (principal); E87.1 Hypo-osmolality and hyponatremia; I71.21 Aneurysm of the ascending aorta, without rupture; I71.43 Infrarenal abdominal aortic aneurysm, without rupture; J34.89 Other specified disorders of nose and nasal sinuses; W19.XXXA Unspecified fall, initial encounter
CPT/HCPCS: 70450; 71250

== ENCOUNTER 2023-09-18 15:21 | Emergency (ER) | payer BC, SELFPAY ==
[2023-09-18] VITALS (9 sets, daily range): BP systolic 105–131; BP diastolic 56–96; PULSE 64–72; RESP 15–26; TEMP 37.7–38.8; O2SAT 93–98
--- NOTE | ~2023-09-18 | XR_ITS ---
XR chest 1V portable Ordering provider: Ad Blanco MD History: 83 years Male with . fever AND WEAKNESS X 1 DAY . Comparison: May 07, 2023 FINDINGS: MEDIASTINUM: The cardiac silhouette is slightly enlarged. LUNGS: No infiltrates, effusions or pneumothorax. OTHER: No free air under the diaphragm. Degenerative changes of the spine. Bilateral shoulder arthroplasty. IMPRESSION: No acute cardiopulmonary pathology. Reviewed, dictated and finalized at location A.
--- NOTE | 2023-09-18 15:41 | ECG_ITS ---
Test Date: 2023-09-18 15:51:47 Measurements Intervals Eunice Rate: 64 P: 70 AR: 258 QRS: -7 QRSD: 93 T: -31 QT: 352 QTc: 363 Interpretive Statements SINUS RHYTHM WITH FIRST DEGREE AV BLOCK WITH OCCASIONAL SUPRAVENTRICULAR PREMATURE COMPLEXES NONSPECIFIC T-WAVE ABNORMALITY- INFERIOR LEADS BASELINE ARTIFACT- I, II, III, AVR, AVL, AVF, V4-V6 BORDERLINE ECG No previous ECG available for comparison Electronically Signed On 09-18-2023 16:48:07 CDT by Nolan Andersen D.O.
--- NOTE | 2023-09-18 15:52 | ED.GENADULT ---
HPI - General Adult General Chief complaint: Weakness Stated complaint: fever Time Seen by Provider: 09/18/23 15:31 History of Present Illness HPI narrative: patient is a 83-year-old gentleman who presents emergency department with chief complaint of falling and fevers. The patient reports that he had a ground level fall at home reports that has not felt well and had a fever since yesterday. Patient did have an episode in the past similar to this where he had pneumonia the patient reports that he does does not feel well also reports that he had several episodes of nausea vomiting yesterday denies abdominal pain and reports she developed diarrhea now Related Data Home Medications Medication Instructions Recorded Confirmed mirtazapine 15 mg tablet (Remeron) 22.5 mg PO DAILY 04/25/23 08/14/23 buspirone 5 mg tablet 10 mg PO BID 05/07/23 08/14/23 rosuvastatin 10 mg tablet 10 mg PO DAILY 08/14/23 08/14/23 Allergies Allergy/AdvReac Type Severity Reaction Status Date / Time eszopiclone Allergy Unknown Unknown Verified 09/18/23 15:22 Review of Systems Review of Systems: A 10 system review of systems was completed on the patient and is negative except for what is stated in the HPI. Nursing and ancillary documentation was reviewed. [facility] Past Medical History Medical History Anxiety Arthritis Depression Diverticulosis DVT (deep venous thrombosis) Esophageal stricture GERD (gastroesophageal reflux disease) Hiatal hernia Hypothyroidism Insomnia Internal hemorrhoids Left rotator cuff tear Left wrist fracture MVP (mitral valve prolapse) Pulmonary embolism Rectal polyp Sleep apnea Surgical History Surgical History H/O left wrist surgery H/O prostatectomy H/O repair of left rotator cuff H/O right wrist surgery H/O shoulder replacement H/O thyroidectomy History of partial thyroidectomy Hx of tonsillectomy S/P TURP Status post left rotator cuff repair Family History Family History Mother Cerebrovascular accident Sibling Family history of coronary artery disease Social History Social History Smoking packs per day: 0.5 Smoking cigarettes per day: 10.0 Years smoked: 20 Smoking pack-years: 10.00 Smoking status: Former smoker Tobacco type: cigarettes Second hand tobacco smoke exposure: Yes Smoking end date: 03/17/81 Alcohol intake: current Drinks per week: 18 Substance use: never Substance use type: does not use Do You Feel Safe in your Home?: Yes Lack of Transportation: No Lack of Food: Never True Current Housing: I Have Housing Concerned About Future Housing: No Difficulty Paying Gas/Electric Bills: No Difficulty Paying for Meds: No Currently Unemployed: No Education: Master's Degree or Higher Difficulty w/ Childcare or Family Care: No Living arrangements: with family Occupation/Education: retired Gender identity (if verbalized by the patient): Male Spiritual care concerns: No Exam Narrative: GENERAL: Well-appearing, well-nourished, and in no acute distress. HEAD: Normocephalic, atraumatic. EYES: PERRLA and EOMI. ENT: Nares clear, no rhinorrhea or epistaxis. Mucous membranes moist. NECK: Supple. CHEST: Clear to auscultation. No respiratory distress. HEART: Regular rate and rhythm. No murmur heard. Normal peripheral pulses. ABDOMEN: Soft, nontender, nondistended, normal active bowel sounds. EXTREMITIES: Normal range of motion. No edema. SKIN: Warm, dry, no rash. NEURO: No focal deficits. Alert and oriented x3. PSYCH: Normal mood and affect. Course Vital Signs Vital signs: Vital Signs Temperature 37.7 C H 09/18/23 15:24 Pulse Rate 66 09/18/23 15:24 Respiratory Rate 18 07/0
[2023-09-18] MEDS: SODIUM CHLORIDE 0.9% IV 1,000 ML 999 ML IV CONT (16:02)
[2023-09-18] MEDS: ACETAMINOPHEN 500 MG TABLET 1000 MG PO (16:03)
[2023-09-18] MEDS: ONDANSETRON INJ 4 MG/2 ML VIAL IV PUSH (16:04)
[2023-09-18 16:12] LABS: Basophils Percent Auto 0.5 % (0.2-1.2); Eosinophils Percent Auto 0.2 % (0-4.4); Hematocrit 39.9 % (42.0-52.0); Hemoglobin 13.8 g/dL (14.0-18.0); Immature Granulocyte Absolute 0.02 K/mm3 (0.00-0.031); Immature Granulocyte Percent A 0.5 % (0-0.5); Lymphocytes Absolute Auto 0.18 K/mm3 (0.9-3.2); Lymphocytes Percent Auto 4.5 % (18.3-44.2); Mean Corpuscular HGB Conc 34.6 g/dl (32-36); Mean Corpuscular Hemoglobin 29.9 pg (26-34); Mean Corpuscular Volume 86.4 fl (80-100); Mean Platelet Volume 9.5 fl (7.4-10.4); Monocytes Absolute Auto 0.3 K/mm3 (0.1-0.6); Monocytes Percent Auto 6.5 % (2.6-8.5); Neutrophils Absolute Auto 3.5 K/mm3 (1.3-6.7); Neutrophils Percent Auto 87.8 % (45.5-73.1); Platelet Count Result 107 k/mm3 (150-375); Red Blood Count 4.62 M/mm3 (4.6-6.20); Red Cell Distribution Width 12.8 % (11.5-14.5)
[2023-09-18 16:20] LABS: Lactic Acid Reflex 1.2 mmol/L (0.7-2.0)
[2023-09-18 16:22] LABS: Albumin Level 4.2 g/dL (3.5-5.1); Alkaline Phosphatase 60 U/L (38-126); Aspartate Amino Transferase 51 U/L (17-59); Calcium 8.8 mg/dL (8.4-10.2); Chloride 102 mmol/L (98-107)
[2023-09-18 16:24] LABS: Alanine Aminotransferase 25 U/L (6-50); Anion Gap 7 mmol/L (4-12); Bilirubin,Total 1.2 mg/dL (0.2-1.3); Blood Urea Nitrogen 21 mg/dL (9-20); Carbon Dioxide 24 mmol/L (22-30); Estimated CRCL calculation 32 ml/min; Estimated Glomerular Filt Rate 45; Glucose 118 mg/dL (65-110); INR 1.6; Magnesium 2.1 mg/dL (1.6-2.3); Potassium 4.5 mmol/L (3.4-5.0); Prothrombin Time 19.8 Seconds (11.1-14.7); Sodium 133 mmol/L (137-145)
[2023-09-18 16:25] LABS: Partial Thromboplastin Time 41.5 Seconds (22.3-36.8)
[2023-09-18 16:33] LABS: Troponin I 0.025 ng/mL (0.000-0.034)
[2023-09-18 16:48] LABS: Influenza A QL RT-PCR Negative (Negative); Influenza B QL RT-PCR Negative (Negative); RSV RNA, RT-PCR Negative (Negative); SARS-CoV-2 RNA PCR Negative (Negative)
[2023-09-18 17:40] LABS: Appearance Urine Clear (Clear); Bacteria Urine None Seen /hpf; Bilirubin Urine Negative (Negative); Blood Urine Negative (Negative); Color Urine Yellow (Yellow); Glucose Urine UA Negative (Negative); Ketones Urine Trace mg/dL (Negative); Leukocyte Esterase Ur Negative LEU/UL (Negative); Nitrate Urine Negative (Negative); Non Pathogenic Casts 0-2; Protein Urine 1+ mg/dL (Negative); RBC Urine 0-2 /hpf (0-2); Specific Grav Ur 1.026 (1.001-1.035); Squamous Epithelial Cell Urine None Seen /hpf (Few); Urobilinogen Urine 0.2 mg/dL (<2.0); WBC Urine 0-5 /hpf (0-3); pH Urine 5.5 (5.0-9.0)
[2023-09-18 17:41] LABS: Add Urine Microscopic? YES
[2023-09-18 18:10] LABS: Procalcitonin 0.8 ng/mL
== END 2023-09-18 18:31 | disposition home or self-care (01) ==
PROVIDERS: Emergency Provider Emergency Medicine; PCP Family Medicine
DX: B34.9 Viral infection, unspecified (principal); Z20.822 Contact with and (suspected) exposure to COVID-19; I34.1 Nonrheumatic mitral (valve) prolapse; E89.0 Postprocedural hypothyroidism; K21.9 Gastro-esophageal reflux disease without esophagitis; K44.9 Diaphragmatic hernia without obstruction or gangrene; M19.90 Unspecified osteoarthritis, unspecified site; G47.30 Sleep apnea, unspecified; F32.A Depression, unspecified; F41.9 Anxiety disorder, unspecified; Z96.619 Presence of unspecified artificial shoulder joint; Z86.718 Personal history of other venous thrombosis and embolism; Z86.711 Personal history of pulmonary embolism; Z87.19 Personal history of other diseases of the digestive system; Z87.891 Personal history of nicotine dependence; Z90.79 Acquired absence of other genital organ(s); Z79.899 Other long term (current) drug therapy; Z79.01 Long term (current) use of anticoagulants; I49.1 Atrial premature depolarization; I44.0 Atrioventricular block, first degree; R94.31 Abnormal electrocardiogram [ECG] [EKG]
CPT/HCPCS: 36415; 71045; 80053; 81001; 83605; 83735; 84145; 84484; 85025; 85610; 85730; 87040; 87637; 93005; 96361; 96374; 99284; A9270; J2405; J7030

== ENCOUNTER 2023-09-28 21:35 | Emergency (ER) | payer BC, SELFPAY ==
--- NOTE | ~2023-09-28 | CT_ITS ---
Noncontrast CT scan of the cervical spine Technique: Multiple contiguous axial [address] images of the cervical spine were obtained and rec onstructed in 2D sagittal and coronal planes on the acquisition scanner. Dose reduction technique was used on this scan by utilizing automated exposure control, adjustment of the mA and/or kV according to patient size. The dose-length product (DLP) was 681.00 mGy-cm. Clinical History: Pain COMPARISON: 12/02/2020 Findings: No acute fracture or subluxation. Osseous alignment is stable from prior exam. There is sev ere degenerative disc narrowing throughout the cervical spine. Extensive facet arthropathy and uncove rtebral degenerative change is also present throughout the cervical spine. There is right neural fora pham narrowing at C3-C4. There is mild bilateral neural foraminal narrowing at C4-C5. There is proba ble bilateral neural foraminal narrowing at C5-C6 and C6-C7. No prevertebral soft tissue swelling. Impression: No fracture or subluxation of the cervical spine. Extensive degenerative spondylosis, as above. Reviewed, dictated and finalized at [facility]. Impression: No fracture or subluxation of the cervical spine. Extensive degenerative spondylosis, as above.
--- NOTE | ~2023-09-28 | CT_ITS ---
Non-contrast Head CT History: Head injury COMPARISON: 06/11/2023 Technique: Axial non-contrast imaging of the brain was performed. Dose reduction technique was used on this scan by utilizing automated exposure control and iterative reconstruction technique. The dose -length product (DLP) was 681.00 mGy-cm. Findings: There is no evidence of intracranial hemorrhage, mass lesion, or acute infarct. Brain par enchyma appears normal. The ventricles and subarachnoid spaces are normal in size. The calvarium ap pears normal. The visualized paranasal sinuses and mastoid air cells are clear. Impression: No significant abnormality seen. Reviewed, dictated and finalized at location . Impression: No significant abnormality seen.
[2023-09-28 21:51] VITALS: BP 108/57; PULSE 55; RESP 16; TEMP 36.4; O2SAT 98
[2023-09-28 23:19] VITALS: BP 136/74; PULSE 55; RESP 16; O2SAT 97
--- NOTE | 2023-09-28 23:21 | ED.FALL ---
HPI - Fall General Chief Complaint: Fall Stated Complaint: Fall, head injury Time Seen by Provider: 09/28/23 23:21 History of Present Illness HPI Narrative: [age] old male presenting to the emergency department for evaluation after having a ground level fall. Patient states he is a fall risk due to frequent falls I did have a fall today. Patient states he was getting out of the pool and his foot hit a paper that was loose and patient fell forward and struck his head. Patient was able to get up on his own had no loss of consciousness. Patient does have a contusion to his left forehead. Patient denies any other pain or injury. Patient closely started on Flomax and is on antibiotics for a staph infection. Patient does have follow-up scheduled with primary care physician on Friday. Related Data Home Medications Medication Instructions Recorded Confirmed mirtazapine 15 mg tablet (Remeron) 22.5 mg PO DAILY 04/25/23 10/02/23 buspirone 5 mg tablet 10 mg PO BID 05/07/23 10/02/23 rosuvastatin 10 mg tablet 10 mg PO DAILY 08/14/23 10/02/23 sodium bicarbonate 325 mg tablet 325 mg PO DAILY 09/30/23 10/02/23 Allergies Allergy/AdvReac Type Severity Reaction Status Date / Time eszopiclone Allergy Unknown Unknown Verified 09/30/23 11:10 sulfamethoxazole AdvReac Unknown Rash Verified 09/30/23 11:10 [From Bactrim] trimethoprim [From Bactrim] AdvReac Unknown Rash Verified 09/30/23 11:10 Review of Systems Review of Systems: All systems reviewed & are unremarkable except as noted in HPI and below PMFSH Past Medical History Medical History Anxiety Arthritis Depression Diverticulosis DVT (deep venous thrombosis) Esophageal stricture GERD (gastroesophageal reflux disease) Hiatal hernia Hypothyroidism Insomnia Internal hemorrhoids Left rotator cuff tear Left wrist fracture MVP (mitral valve prolapse) Pulmonary embolism Rectal polyp Sleep apnea Surgical History Surgical History H/O left wrist surgery H/O prostatectomy H/O repair of left rotator cuff H/O right wrist surgery H/O shoulder replacement H/O thyroidectomy History of partial thyroidectomy Hx of tonsillectomy S/P TURP Status post left rotator cuff repair Family History Family History Mother Cerebrovascular accident Sibling Family history of coronary artery disease Social History Social History Smoking packs per day: 0.5 Smoking cigarettes per day: 10.0 Years smoked: 20 Smoking pack-years: 10.00 Smoking status: Former smoker Tobacco type: cigarettes Second hand tobacco smoke exposure: Yes Smoking end date: 03/17/81 Alcohol intake: current Drinks per week: 18 Substance use: never Substance use type: does not use Do You Feel Safe in your Home?: Yes Lack of Transportation: No Lack of Food: Never True Current Housing: I Have Housing Concerned About Future Housing: No Difficulty Paying Gas/Electric Bills: No Difficulty Paying for Meds: No Currently Unemployed: No Education: Master's Degree or Higher Difficulty w/ Childcare or Family Care: No Living arrangements: with family Occupation/Education: retired Gender identity (if verbalized by the patient): Male Spiritual care concerns: No Exam Narrative: APPEARANCE: Well appearing, no pain, no distress, well-nourished. HEAD: normocephalic, atraumatic. EYES: PERRLA/EOMI, conjunctivae clear. NOSE: Normal no drainage EARS:TMS clear with good light reflex. THROAT: Pharynx clear, no exudate. NECK: Supple. No adenopathy, no masses. RESPIRATORY: Airway patent, respirations nonlabored. Clear to auscultation bilaterally, no rales, rhonchi, wheezing. CARDIOVASCULAR: Regular rate and rhythm without murmurs rubs or gallops. ABDOMINAL: Soft, n
[2023-09-29] VITALS: BP 109/67; BP 118/71; PULSE 80; PULSE 84
[2023-09-29 00:02] VITALS: BP 126/70; PULSE 87
== END 2023-09-29 00:18 | disposition home or self-care (01) ==
PROVIDERS: Emergency Provider Emergency Medicine; PCP Family Medicine
DX: S00.83XA Contusion of other part of head, initial encounter (principal); R29.6 Repeated falls; I34.1 Nonrheumatic mitral (valve) prolapse; G47.30 Sleep apnea, unspecified; M19.90 Unspecified osteoarthritis, unspecified site; K44.9 Diaphragmatic hernia without obstruction or gangrene; K21.9 Gastro-esophageal reflux disease without esophagitis; E89.0 Postprocedural hypothyroidism; F32.A Depression, unspecified; F41.9 Anxiety disorder, unspecified; Z96.619 Presence of unspecified artificial shoulder joint; Z86.711 Personal history of pulmonary embolism; Z87.19 Personal history of other diseases of the digestive system; Z87.891 Personal history of nicotine dependence; Z86.718 Personal history of other venous thrombosis and embolism; Z79.899 Other long term (current) drug therapy; Z90.79 Acquired absence of other genital organ(s); M47.812 Spondylosis without myelopathy or radiculopathy, cervical region; W01.0XXA Fall on same level from slipping, tripping and stumbling without subsequent striking against object, initial encounter
CPT/HCPCS: 70450; 72125; 99284

== ENCOUNTER 2023-09-30 09:13 | Outpatient (CLI) | payer BC, SELFPAY ==
--- NOTE | ~2023-09-30 | CT_ITS ---
EXAMINATION: CT brain wo con DATE: 09/30/2023 09:40 INDICATION: Head injury TECHNIQUE: Computed tomography (CT) of the head was performed without intravenous contrast. Sagittal and coronal reconstructions were performed. The mA was adjusted according to patient size. Iterative reconstruction technique was employed. The dose-length product was 681.00 mGy-cm. COMPARISON: head CT dated 09/28/2023 FINDINGS: No fracture. No acute intracranial hemorrhage, acute infarction or abnormal extra axial fluid collect ion. There is mild to moderate scattered white matter hypoattenuation consistent with chronic small v essel ischemic disease. Symmetric prominence of the sulci and ventricles consistent with mild to mode rate age-appropriate diffuse cerebral volume loss. No mass/mass effect. Changes of bilateral intraocu lar lens replacement. The orbits and mastoid air cells are normal. Intracranial calcified cerebral at herosclerosis is noted. There is mucosal thickening the paranasal sinuses. IMPRESSION: 1. No fracture or acute intracranial process. 2. Age-related changes including mild to moderate diffuse volume loss and mild to moderate scattered white matter hypoattenuation consistent with chronic small vessel ischemic disease. Reviewed, dictated and finalized at location A. IMPRESSION: 1. No fracture or acute intracranial process. 2. Age-related changes including mild to moderate diffuse volume loss and mild to moderate scattered white matter hypoattenuation consistent with chronic smal l vessel ischemic disease.
== END 2023-09-30 09:14 | disposition home or self-care (01) ==
PROVIDERS: PCP Family Medicine; Visit Provider Physician Assistant
DX: R41.0 Disorientation, unspecified (principal); S09.90XA Unspecified injury of head, initial encounter; X58.XXXA Exposure to other specified factors, initial encounter; R93.0 Abnormal findings on diagnostic imaging of skull and head, not elsewhere classified
CPT/HCPCS: 70450

== ENCOUNTER 2023-10-02 07:20 | Outpatient (CLI) | payer BC, SELFPAY ==
[2023-10-02 08:18] LABS: Cortisol Baseline 8.23 ug/dL
== END 2023-10-02 07:21 | disposition home or self-care (01) ==
PROVIDERS: PCP Family Medicine; Visit Provider Internal Medicine Nephrology
DX: E87.1 Hypo-osmolality and hyponatremia (principal)
CPT/HCPCS: 36415; 82533; 96372; J0834

== ENCOUNTER 2023-10-11 09:46 | Emergency (ER) | payer BC, SELFPAY ==
[2023-10-11 10:48] VITALS: BP 94/60; PULSE 53; RESP 18; TEMP 36.6; O2SAT 96
[2023-10-11 11:16] LABS: Appearance Urine Clear (Clear); Bilirubin Urine Negative (Negative); Blood Urine Negative (Negative); Color Urine Yellow (Yellow); Glucose Urine UA Negative (Negative); Ketones Urine Negative (Negative); Leukocyte Esterase Ur Negative LEU/UL (Negative); Nitrate Urine Negative (Negative); Protein Urine Negative (Negative); Specific Grav Ur 1.018 (1.001-1.035)
[2023-10-11 11:24] LABS: Add Urine Microscopic? NO
[2023-10-11 11:56] VITALS: BP 118/74; PULSE 59; RESP 14; O2SAT 100
[2023-10-11 11:57] VITALS: BP 118/74; O2SAT 100
[2023-10-11 12:01] VITALS: BP 118/69; O2SAT 100
[2023-10-11 12:17] VITALS: BP 124/65; PULSE 54; RESP 16; O2SAT 100
--- NOTE | 2023-10-11 13:35 | ED.MALEGU ---
HPI - Male Genitourinary General Chief complaint: Urogenital-Male Stated complaint: urological issue Time Seen by Provider: 10/11/23 11:12 History of Present Illness HPI Narrative: This is an 83-year-old male presenting to the emergency department with a chief complaint of dysuria. Has a history of prostate issues and history of prostate cancer in the remote past. He states that he has been having several days of dysuria he describes the sensation as uncomfortable with some burning sensation in his penile shaft during micturition. He denies any fever, chills or systemic features of infection. No nauseous, abdominal pain, back pain. He does have an appointment with his urologist soon to discuss prostate issues as he was recently prescribed Flomax as well. He states he urinates throughout the night has to wake up several times to urinate. No history of kidney stones. No urinary symptoms such as genitalia swelling or erythema, discharge, bleeding. Related Data Home Medications Medication Instructions Recorded Confirmed mirtazapine 15 mg tablet (Remeron) 22.5 mg PO DAILY 04/25/23 10/02/23 buspirone 5 mg tablet 10 mg PO BID 05/07/23 10/02/23 rosuvastatin 10 mg tablet 10 mg PO DAILY 08/14/23 10/02/23 sodium bicarbonate 325 mg tablet 325 mg PO DAILY 09/30/23 10/02/23 Allergies Allergy/AdvReac Type Severity Reaction Status Date / Time eszopiclone Allergy Unknown Unknown Verified 09/30/23 11:10 sulfamethoxazole AdvReac Unknown Rash Verified 09/30/23 11:10 [From Bactrim] trimethoprim [From Bactrim] AdvReac Unknown Rash Verified 09/30/23 11:10 Review of Systems Review of Systems: As indicated above in the HPI [facility] Past Medical History Medical History Anxiety Arthritis Depression Diverticulosis DVT (deep venous thrombosis) Esophageal stricture GERD (gastroesophageal reflux disease) Hiatal hernia Hypothyroidism Insomnia Internal hemorrhoids Left rotator cuff tear Left wrist fracture MVP (mitral valve prolapse) Pulmonary embolism Rectal polyp Sleep apnea Surgical History Surgical History H/O left wrist surgery H/O prostatectomy H/O repair of left rotator cuff H/O right wrist surgery H/O shoulder replacement H/O thyroidectomy History of partial thyroidectomy Hx of tonsillectomy S/P TURP Status post left rotator cuff repair Family History Family History Mother Cerebrovascular accident Sibling Family history of coronary artery disease Social History Social History Smoking packs per day: 0.5 Smoking cigarettes per day: 10.0 Years smoked: 20 Smoking pack-years: 10.00 Smoking status: Former smoker Tobacco type: cigarettes Second hand tobacco smoke exposure: Yes Smoking end date: 03/17/81 Alcohol intake: current Drinks per week: 18 Substance use: never Substance use type: does not use Do You Feel Safe in your Home?: Yes Lack of Transportation: No Lack of Food: Never True Current Housing: I Have Housing Concerned About Future Housing: No Difficulty Paying Gas/Electric Bills: No Difficulty Paying for Meds: No Currently Unemployed: No Education: Master's Degree or Higher Difficulty w/ Childcare or Family Care: No Living arrangements: with family Occupation/Education: retired Gender identity (if verbalized by the patient): Male Spiritual care concerns: No Exam Narrative: GENERAL: [Well-appearing, well-nourished, and in no acute distress.] HEAD: [Normocephalic, atraumatic.] EYES: [PERRLA and EOMI.] ENT: Nares clear, no rhinorrhea or epistaxis. Mucous membranes moist. NECK: Supple. CHEST: [Clear to auscultation. No respiratory distress.] HEART: [Regular rate and rhythm]. No murmur heard. [Normal
== END 2023-10-11 13:58 | disposition home or self-care (01) ==
PROVIDERS: Emergency Medicine; Emergency Provider Student in an Organized Health Care Education/Training Program; PCP Family Medicine
DX: R30.0 Dysuria (principal); I34.1 Nonrheumatic mitral (valve) prolapse; E89.0 Postprocedural hypothyroidism; K21.9 Gastro-esophageal reflux disease without esophagitis; K44.9 Diaphragmatic hernia without obstruction or gangrene; M19.90 Unspecified osteoarthritis, unspecified site; G47.30 Sleep apnea, unspecified; F41.9 Anxiety disorder, unspecified; F32.A Depression, unspecified; Z96.619 Presence of unspecified artificial shoulder joint; Z86.718 Personal history of other venous thrombosis and embolism; Z85.46 Personal history of malignant neoplasm of prostate; Z86.711 Personal history of pulmonary embolism; Z87.891 Personal history of nicotine dependence; Z87.19 Personal history of other diseases of the digestive system; Z90.79 Acquired absence of other genital organ(s); Z79.01 Long term (current) use of anticoagulants; Z79.899 Other long term (current) drug therapy
CPT/HCPCS: 81003; 99283

== ENCOUNTER 2024-04-03 | Emergency (ER) | payer BC, SELFPAY ==
[2024-04-02 23:57] VITALS: BP 123/69; PULSE 64; RESP 17; TEMP 37.6; O2SAT 96
[2024-04-03] VITALS (30 sets, daily range): BP systolic 75–134; BP diastolic 46–75; PULSE 51–78; RESP 0–24; O2SAT 93–99
--- NOTE | ~2024-04-03 | XR_ITS ---
EXAMINATION: XR chest 1V portable DATE: 04/03/2024 07:21 INDICATION: Central line placement. TECHNIQUE: A single frontal view of the chest was obtained on 2 radiographs. COMPARISON: Chest single view at 12:24 AM, chest CT 04/03/2024 FINDINGS: There are airspace opacities in all left lung zones. No pleural effusion or pneumothorax. T here is enlargement of the cardiac silhouette. There are changes of aortic valve replacement. A right internal jugular central venous catheter is seen with tip in the right atrium. There are bilateral s houlder arthroplasties. IMPRESSION: 1. Central line tip in right atrium. 2. Airspace opacities in left lung with worsening in left upper lung zone, consistent with atelectasi s versus pneumonia. 3. Enlargement of the cardiac silhouette, likely a combination of cardiomegaly and pericardial effusi on. Reviewed, dictated and finalized at location A. O PRODUCTION SPECIALIST IMPRESSION: 1. Central line tip in right atrium. 2. Airspace opacities in left lung with worsening in left upper lung zone, cons istent with atelectasis versus pneumonia. 3. Enlargement of the cardiac silhouette, likely a combination of cardiomegaly and pericardial effusion.
--- NOTE | ~2024-04-03 | CT_ITS ---
EXAMINATION: CTA chest abdomen pelvis DATE: 04/03/2024 08:24 INDICATION: Chest pain. TECHNIQUE: Computed tomographic angiography (CTA) of the chest, abdomen, and pelvis was performed wit h 100 mL Omnipaque-350 intravenous contrast. Automated exposure control and iterative reconstruction technique were employed. The dose-length product was 1008.69 mGy-cm. Maximum intensity projection 3D- reconstructions of the aorta and other arteries were constructed by the technologist on a separate wo rkstation. COMPARISON: CTA at 1:11 AM FINDINGS: CHEST CTA: The lungs demonstrate dependent atelectasis. There are small pleural effusions. Cardiomegaly is noted . There is a small pericardial effusion. There are changes of aortic valve replacement. There are cor onary artery calcifications. A right internal jugular central venous catheter is seen with tip in the right atrium. Aortic atherosclerosis is noted. The pulmonary arteries are not well evaluated due to the phase of contrast. There are bilateral shoulder arthroplasties. There is severe cervical and thor acic spondylosis. ABDOMEN AND PELVIS CTA: The liver, gallbladder, spleen, pancreas, adrenal glands, and kidneys are normal. There is a Gupta ca theter in expected position. There is a left inguinal hernia containing fat. There is diverticulosis of the colon without evidence of diverticulitis. There is a large volume of stool in the colon. There are no pathologically enlarged lymph nodes. There is no free intraperitoneal fluid. There is a 3.4 c m fusiform aneurysm of infrarenal aorta. 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 No endoleak. There is emb olization material in left internal iliac artery. 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 There is severe lumbar spon dylosis. There is a chronic compression fracture of L2. Thoracolumbar levoscoliosis is noted. IMPRESSION: 1. Small pleural effusions. 2. Small pericardial effusion. 3. 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 4. 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 No endoleak. Reviewed, dictated and finalized at location A. H REELER IMPRESSION: 1. Small pleural effusions. 2. Small pericardial effusion. 3. 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 4. 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 No endoleak.
--- NOTE | ~2024-04-03 | CT_ITS ---
EXAMINATION: CTA chest abdomen pelvis DATE: 04/03/2024 01:37 INDICATION: Chest pain and cough. TECHNIQUE: Computed tomographic angiography (CTA) of the chest, abdomen, and pelvis was performed wit h 100 mL Omnipaque-350 intravenous contrast. Automated exposure control and iterative reconstruction technique were employed. The dose-length product was 955.76 mGy-cm. Maximum intensity projection 3D-r econstructions of the aorta and other arteries were constructed by the technologist on a separate wor kstation. COMPARISON: CT chest 06/11/2023 FINDINGS: CHEST CTA: There are small pleural effusions. There is dependent atelectasis bilaterally. There are dependent gr oundglass and airspace opacities in right lower lobe. Cardiomegaly is noted. There are changes of aor tic valve replacement. There is a small pericardial effusion. There is a small pulmonary embolus in r ight lower lobe. The contrast phase is early, and the aorta is poorly opacified. Aortic atheroscleros is is noted. There are bilateral shoulder arthroplasties. There is severe thoracic spondylosis. ABDOMEN AND PELVIS CTA: The contrast phase is early, and the aorta and organs are not opacified. The liver, gallbladder, sple en, pancreas, adrenal glands, and kidneys are normal. There is a 3.4 cm fusiform aneurysm of infraren al aorta. There is a 4.5 cm fusiform aneurysm of left common and external iliac arteries with stent g raft. There is embolization material in left internal iliac artery. There is a lipoma in the left hip adductor muscles. There are no dilated loops of bowel. There is a large volume of stool in the colon . There are no pathologically enlarged lymph nodes. There is no free intraperitoneal fluid. There is severe lumbar spondylosis. There is a chronic compression fracture of L2. Thoracolumbar levoscoliosis is noted. IMPRESSION: 1. Pulmonary embolus in right lower lobe. I called this result to Dr. Morrison. 2. Groundglass and airspace opacities in dependent right lower lobe, consistent with atelectasis vers us pneumonia versus infarct. 3. Small pleural effusions. 4. Small pericardial effusion. 5. 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 Reviewed, dictated and finalized at location A. ANTY ADMINISTRATOR IMPRESSION: 1. Pulmonary embolus in right lower lobe. I called this result to Dr. Morrison. 2. Groundglass and airspace opacities in dependent right lower lobe, consistent with atelectasis versus pneumonia versus infarct. 3. Small pleural effusions. 4. Small pericardial effusion. 5. 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
--- NOTE | ~2024-04-03 | XR_ITS ---
EXAMINATION: XR chest 1V portable DATE: 04/03/2024 00:36 INDICATION: Chest pain. Cough. TECHNIQUE: A single frontal view of the chest was obtained. COMPARISON: Chest single view 09/18/2023, chest CT 04/03/2024 FINDINGS: There are airspace opacities in right lower lung zone and left mid and lower lung zones. Th ere is a small left pleural effusion. No pneumothorax. There is enlargement of the cardiac silhouette . There are changes of aortic valve replacement. There is a right shoulder arthroplasty. IMPRESSION: 1. Airspace opacities in right lower lung zone and left middle and lower lung zones, likely atelectas is. 2. Small left pleural effusion. 3. Enlargement of the cardiac silhouette, likely a combination of cardiomegaly and pericardial effusi on. Reviewed, dictated and finalized at location A. F FIELD ENGINEER IMPRESSION: 1. Airspace opacities in right lower lung zone and left middle and lower lung z ones, likely atelectasis. 2. Small left pleural effusion. 3. Enlargement of the cardiac silhouette, likely a combination of cardiomegaly and pericardial effusion.
--- NOTE | 2024-04-03 00:05 | ECG_ITS ---
Test Date: 2024-04-03 00:05:35 Measurements Intervals [place] Rate: 63 P: 17 MI: 307 QRS: 3 QRSD: 98 T: -25 QT: 420 QTc: 432 Interpretive Statements SINUS RHYTHM WITH FIRST DEGREE AV BLOCK NONSPECIFIC ST & T-WAVE ABNORMALITY Compared to ECG 09/18/2023 15:51:47 T-wave abnormality now present Electronically Signed On 04-03-2024 10:38:42 [facility] by Chester Marshall M.D.
[2024-04-03 00:18] LABS: Basophils Absolute Auto 0.1 K/mm3 (0.0-0.1); Basophils Percent Auto 1.1 % (0.2-1.2); Eosinophils Absolute Auto 0.3 K/mm3 (0-0.3); Eosinophils Percent Auto 3.3 % (0-4.4); Hematocrit 29.4 % (42.0-52.0); Hemoglobin 9.9 g/dL (14.0-18.0); Immature Granulocyte Absolute 0.05 K/mm3 (0.00-0.031); Immature Granulocyte Percent A 0.6 % (0-0.5); Lymphocytes Absolute Auto 0.84 K/mm3 (0.9-3.2); Lymphocytes Percent Auto 9.8 % (18.3-44.2); Mean Corpuscular HGB Conc 33.7 g/dl (32-36); Mean Corpuscular Hemoglobin 29.6 pg (26-34); Mean Corpuscular Volume 87.8 fl (80-100); Mean Platelet Volume 8.8 fl (7.4-10.4); Monocytes Absolute Auto 1.1 K/mm3 (0.1-0.6); Monocytes Percent Auto 12.5 % (2.6-8.5); Neutrophils Absolute Auto 6.2 K/mm3 (1.3-6.7); Neutrophils Percent Auto 72.7 % (45.5-73.1); Platelet Count Result 242 k/mm3 (150-375); Red Blood Count 3.35 M/mm3 (4.6-6.20); Red Cell Distribution Width 12.6 % (11.5-14.5); White Blood Count 8.5 K/mm3 (4.5-10.0)
[2024-04-03] MEDS: ASPIRIN 81 MG CHEWABLE TABLET 324 MG PO (00:24)
[2024-04-03 00:30] LABS: INR 2.4; Prothrombin Time 26.8 Seconds (11.1-14.7)
[2024-04-03 00:31] LABS: Partial Thromboplastin Time 63.7 Seconds (22.3-36.8)
[2024-04-03 00:32] LABS: Alanine Aminotransferase 21 U/L (6-50); Albumin Level 3.4 g/dL (3.5-5.1); Alkaline Phosphatase 78 U/L (38-126); Anion Gap 6 mmol/L (4-12); Aspartate Amino Transferase 34 U/L (17-59); Bilirubin,Total 0.7 mg/dL (0.2-1.3); Blood Urea Nitrogen 23 mg/dL (9-20); Calcium 8.3 mg/dL (8.4-10.2); Carbon Dioxide 24 mmol/L (22-30); Chloride 96 mmol/L (98-107); Estimated CRCL calculation 44 ml/min; Estimated Glomerular Filt Rate > 60; Glucose 97 mg/dL (65-110); Lipase 81 U/L (23-300); Potassium 4.6 mmol/L (3.4-5.0); Sodium 126 mmol/L (137-145)
[2024-04-03 00:43] LABS: Troponin I 0.022 ng/mL (0.000-0.034)
--- NOTE | 2024-04-03 01:00 | ED.GENADULT ---
HPI - General Adult General Chief complaint: Chest Pain Stated complaint: cp and dyspnea Time Seen by Provider: 04/03/24 00:02 History of Present Illness HPI narrative: Patient is presenting to the ED for cough,hiccups,fatigue. Patient is a poor historian is not quite sure why he is here. Information taken from EMR. See excerpt below. Of note the patient recently failed a barium swallow but has been insistent on eating food. Patient denies fevers, chest pain abdominal pain nausea vomiting diarrhea. [facility] HPI:Jules Alonso, an 83-year-old male with a history of aortic root and ascending aortic aneurysms, underwent elective minimally invasive sternotomy on 03/18/24 for tissue composite root and ascending aorta replacement, performed by Dr. Adhikari. Postoperatively, he progressed well, with uneventful extubation and transfer to the PCU on POD1. A CTA revealed a left common iliac artery aneurysm, leading to endovascular repair with an internal iliac plug on 03/22/24. Complications included atrial fibrillation managed with Amiodarone and anticoagulation, transient hyponatremia, hypotension requiring pressor support, persistent hiccups treated with thorazine and baclofen, and temporary confusion. These were resolved through medication adjustments and supportive care. He underwent physical and occupational therapy, regained strength and mobility, and was deemed ready for discharge on 03/27/24, ambulating with minimal assistance, with stable vitals, well-controlled pain, and healing surgical sites. Admitted to our facility for inpatient rehabilitation Related Data Home Medications ?Medication ?Instructions ?Recorded ?Confirmed ?Last Taken ?Type mirtazapine 15 mg tablet (Remeron) 22.5 mg PO HS 04/25/23 03/29/24 03/26/24 History buspirone 5 mg tablet 5 mg PO BID 05/07/23 03/29/24 03/27/24 History rosuvastatin 10 mg tablet 10 mg PO DAILY 08/14/23 03/27/24 03/27/24 History acetaminophen 500 mg capsule 1,000 mg PO Q6H PRN pain 03/27/24 03/27/24 03/27/24 History amiodarone 200 mg tablet 200 mg PO DAILY 03/27/24 03/27/24 03/27/24 History aspirin 81 mg chewable tablet 81 mg PO DAILY 03/27/24 03/27/24 03/27/24 History cyanocobalamin (vitamin B-12) 1,000 mcg PO DAILY 03/27/24 03/27/24 Unknown History 1,000 mcg capsule furosemide 40 mg tablet 40 mg PO DAILY 03/27/24 03/27/24 Unknown History latanoprost 0.005 % eye drops 1 drp RIGHT EYE QPM 03/27/24 03/27/24 03/26/24 History potassium chloride 20 mEq 20 meq PO DAILY 03/27/24 03/27/24 Unknown History tablet,extended release (K-Tab) rivaroxaban 10 mg tablet (Xarelto) 20 mg PO QACDINNER 03/27/24 03/29/24 03/26/24 History trospium 20 mg tablet 20 mg PO DAILY 03/27/24 03/27/24 Unknown History vibegron 75 mg tablet 75 mg PO DAILY 03/27/24 03/27/24 Unknown History Allergies Allergy/AdvReac Type Severity Reaction Status Date / Time eszopiclone Allergy Unknown Unknown Verified 03/30/24 08:04 sulfamethoxazole (From AdvReac Unknown Rash Verified 03/30/24 08:04 Bactrim) trimethoprim (From Bactrim) AdvReac Unknown Rash Verified 03/30/24 08:04 [facility] Past Medical History Medical History Peripheral neuropathy Chronic constipation Aortic root aneurysm Iliac artery aneurysm Bilateral CHF (congestive heart failure) Diverticulosis Internal hemorrhoids Insomnia Anxiety Depression Left wrist fracture Left rotator cuff tear Arthritis Esophageal stricture GERD (gastroesophageal reflux disease) Hiatal hernia Rectal polyp Sleep apnea DVT (deep venous thrombosis) MVP (mitral valve prolapse) Pulmonary embolism Hypothyroidism Surgical History Surgical History H/O thyroidectomy H/O right wrist surgery H/O left wrist surgery H/O repair of left rotator cuff H/O prostatectomy Hx of tonsillectomy History of partial thyroidectomy Status post left rotator cuff repair S/P TURP H/O shoulder replacement Family History Family History Mother Cerebrovascular accident Sibling Family history of coronary artery disease Social History Social History Smoking packs per day: 0.5 Smoking cigarettes per day: 10.0 Years smoked: 20 Smoking pack-years: 10.00 Smoking status: Former smoker Tobacco type: cigarettes Second hand tobacco smoke exposure: Yes Smoking end date: 03/17/81 Alcohol intake: former Drinks per week: 18 Substance use: never Substance use type: does not use Do You Feel Safe in your Home?: Yes Lack of Transportation: No Lack of Food: Never True Current Housing: I Have Housing Concerned About Future Housing: No Difficulty Paying Gas/Electric Bills: No Difficulty Paying for Meds: No Currently Unemployed: No Education: Master's Degree or Higher Difficulty w/ Childcare or Family Care: No Living arrangements: with family Occupation/Education: retired Gender identity (if verbalized by the patient): Male Spiritual care concerns: No Exam Narrative: APPEARANCE: No apparent distress. Head: atraumatic. EYES: EOMI, NOSE: Atraumatic NECK: Trachea midline RESPIRATORY: No increased rate of breathing, CARDIOVASCULAR: RRR, ABDOMINAL: Non-distended MUSCULOSKELETAl: No obvious deformities NEURO: Alert. Moving 4/4 extremities SKIN:: Warm, dry. Normal color PSYCHIATRIC: Normal affect Course Vital Signs Vital signs: Vital Signs Temperature 99.6 F 04/02/24 23:57 Pulse Rate 64 04/02/24 23:57 Respiratory Rate 17 04/02/24 23:57 Blood Pressure 123/69 04/02/24 23:57 Pulse Oximetry 96 04/02/24 23:57 Oxygen Delivery Room Air 04/02/24 23:57 Temperature 99.6 F 04/02/24 23:57 Pulse Rate 54 L 04/03/24 05:32 Respiratory Rate 22 H 04/03/24 05:32 Blood Pressure 120/70 04/03/24 05:32 Pulse Oximetry 96 04/03/24 05:32 Oxygen Delivery Room Air 04/03/24 00:06 Procedures Central Line Placement Right IJ: Central Line Date: 04/03/24 Central Line Time: 07:07 Discussed w/ the patient/family/POA,the placement of a central venous catheter, including its clinical necessity/indication & associated potential risks, benifits and alternatives.: Yes The patient/family/POA understand(s) and acknowledge(s) the need to proceed with central venous catheter insertion as an important element of the patient's clinical management.: Yes Time Out Performed: Yes Patient Placed on Monitor/Pulse Ox: Yes Max. Sterile Barrier Technique: Caps, large sterile sheet and hand hygiene Central Line Prep: 2% chlorhexidine scrub and sterile drapes applied Technique: US-Guided Local Anesthetic: lidocaine 1% Amount of anesthesia used (mL): 5 Ultrasound Used for Placement: Yes Central Line Lumen Inserted: triple Post Procedure: sutured in place, good blood return, all ports aspirated, flushed, capped and sterile dressing applied Post Procedure X-Ray: tip of catheter in good position and no pneumothorax seen Patient Tolerated Procedure: well Complications: none Medical Decision Making MDM Narrative Medical decision making narrative: -Course: A 83-year-old male with a history of a recent aortic aneurysm repair and inguinal stenting presenting for cough and lethargy. CTA ordered to evaluate for aortic leak or complication. CT was evaluated by the cardiothoracic surgeon at [facility] Dr. Rodriguez and he was not concerned for any aortic leak or surgical complication. However the CTA did not show the left inguinal stent region. Patient does not have any abdominal pain or pain in that area this time. Lung windows showed ground-glass opacities in the right lower lobe. Patient has recently failed a barium swallow test but is and continue to eat food normally. Additionally the patient has a small pulmonary embolus in the right lower lobe but he is already on Xarelto. Patient received an initial 30 cc/kilogram bolus of fluids and get started on antibiotics for aspiration pneumonia. He was then accepted at [facility] by Dr Leyva. The concerning the patient's stay his blood pressure continued to trend down words. He was given another L bolus to bring the total fluids to 3 L. A central line was then placed in the right IJ and he was started on Levophed with improvement. [facility] was updated on the change in his condition. Due to his drop in blood pressure a CTA has been ordered to better evaluate the rest of his aorta specifically the inguinal region. Patient signed out to the oncoming physician. Vital Signs Vital Signs: Vital Signs Temperature 99.6 F 04/02/24 23:57 Pulse Rate 64 04/02/24 23:57 Respiratory Rate 17 04/02/24 23:57 Blood Pressure 123/69 04/02/24 23:57 Pulse Oximetry 96 04/02/24 23:57 Oxygen Delivery Room Air 04/02/24 23:57 Temperature 99.6 F 04/02/24 23:57 Pulse Rate 54 L 04/03/24 05:32 Respiratory Rate 22 H 04/03/24 05:32 Blood Pressure 120/70 04/03/24 05:32 Pulse Oximetry 96 04/03/24 05:32 Oxygen Delivery Room Air 04/03/24 00:06 Lab Data 04/03/24 00:09 04/03/24 00:09 Labs: Lab Results 04/03/24 04/03/24 04/03/24 Range/Units 00:09 02:40 02:55 WBC 8.5 (4.5-10.0) K/mm3 RBC 3.35 L (4.6-6.20) M/mm3 Hgb 9.9 L (14.0-18.0) g/dL Hct 29.4 L (42.0-52.0) % MCV 87.8 (80-100) fl MCH 29.6 (26-34) pg MCHC 33.7 (32-36) g/dl RDW 12.6 (11.5-14.5) % Plt Count 242 (150-375) k/mm3 MPV 8.8 (7.4-10.4) fl Immature Gran % (Auto) 0.6 H (0-0.5) % Neut % (Auto) 72.7 (45.5-73.1) % Lymph % (Auto) 9.8 L (18.3-44.2) % [place] % (Auto) 12.5 H (2.6-8.5) % Eos % (Auto) 3.3 (0-4.4) % Baso % (Auto) 1.1 (0.2-1.2) % Lymph # (Auto) 0.84 L (0.9-3.2) K/mm3 [place] # (Auto) 1.1 H (0.1-0.6) K/mm3 Eos # (Auto) 0.3 (0-0.3) K/mm3 Baso # (Auto) 0.1 (0.0-0.1) K/mm3 Abs Immat Gran (auto) 0.05 H (0.00-0.031) K/mm3 Absolute Neuts (auto) 6.2 (1.3-6.7) K/mm3 Absolute Nucleated RBC 0.000 (0.0-0.012) K/mm3 Nucleated RBC % 0.0 (0.0-0.2) % PT 26.8 H (11.1-14.7) Seconds INR 2.4 APTT 63.7 H (22.3-36.8) Seconds Sodium 126 L (137-145) mmol/L Potassium 4.6 (3.4-5.0) mmol/L Chloride 96 L (98-107) mmol/L Carbon Dioxide 24 (22-30) mmol/L Anion Gap 6 (4-12) mmol/L BUN 23 H (9-20) mg/dL Creatinine 1.08 (0.7-1.3) mg/dL Estim Creat Clear Calc 44 ml/min Estimated GFR > 60 (59 - ) Glucose 97 (65-110) mg/dL Calcium 8.3 L (8.4-10.2) mg/dL Total Bilirubin 0.7 (0.2-1.3) mg/dL AST 34 (17-59) U/L ALT 21 (6-50) U/L Alkaline Phosphatase 78 (38-126) U/L Troponin I 0.022 0.023 (0.000-0.034) ng/mL Total Protein 6.0 L (6.3-8.2) g/dL Albumin 3.4 L (3.5-5.1) g/dL Lipase 81 (23-300) U/L Influenza A (RT-PCR) Negative (Negative) Influenza B (RT-PCR) Negative (Negative) RSV (RT-PCR) Negative (Negative) SARS-CoV-2 RNA (RT-PCR) Negative (Negative) Blood Type O Positive Antibody Screen Negative Critical Care Time Critical Care Time Critical Care Time: Yes Total Critical Care Time: 60 Discharge Plan Discharge Clinical Impression: Shock, Aspiration pneumonia Patient Language: Slovenian Prescriptions: No Action buspirone 5 mg tablet 5 mg PO BID rosuvastatin 10 mg tablet 10 mg PO DAILY mirtazapine [Remeron] 15 mg tablet 22.5 mg PO HS Rx Instructions: takes 22.5 mg a day levothyroxine 75 mcg tablet See Rx Instructions .ROUTE .COMPLEX Qty: 90 3RF Dose Instruction: Take 1 Tablet (75 mcg) by mouth daily. Rx Instructions: Take 1 Tablet (75 mcg) by mouth daily. acetaminophen 500 mg capsule 1,000 mg PO Q6H PRN (Reason: pain) amiodarone 200 mg tablet 200 mg PO DAILY Rx Instructions: START TAKING ON MARCH 28, 2024 aspirin 81 mg tablet,chewable 81 mg PO DAILY Rx Instructions: START TAKING ON MARCH 28, 2024 cyanocobalamin (vitamin B-12) 1,000 mcg capsule 1,000 mcg PO DAILY furosemide 40 mg tablet 40 mg PO DAILY Rx Instructions: TAKE 1 TABLET BY MOUTH DAILY FOR 7 DAYS. latanoprost 0.005 % drops 1 drp RIGHT EYE QPM potassium chloride [K-Tab] 20 mEq tablet extended release 20 meq PO DAILY Rx Instructions: TAKE 1 TABLET TOTAL (20 mEq total) by mouth daily FOR 7 DAYS. trospium 20 mg tablet 20 mg PO DAILY vibegron 75 mg tablet 75 mg PO DAILY Xarelto 10 mg tablet 20 mg PO QACDINNER Follow-up/Referrals: Martinez Pace MD [Primary Care Provider] -
[2024-04-03] MEDS: SODIUM CHLORIDE 0.9% IV 1,000 ML 999 ML IV CONT (01:28)
--- NOTE | 2024-04-03 02:42 | ECG_ITS ---
Test Date: 2024-04-03 02:47:01 Measurements Intervals [place] Rate: 52 P: 0 LA: 0 QRS: 33 QRSD: 100 T: -32 QT: 449 QTc: 421 Interpretive Statements ATRIAL FIBRILLATION WITH SLOW VENTRICULAR RESPONSE NONSPECIFIC T-WAVE ABNORMALITY Compared to ECG 04/03/2024 00:05:35 atrial fibrillation has replaced sinus rhythm Electronically Signed On 04-03-2024 10:41:48 [employer]IOR [employer]NAL[employer]IS [employer]IST by Chester Marshall M.D.
[2024-04-03] MEDS: SODIUM CHLORIDE 0.9% IV 1,000 ML 999 ML (02:43)
[2024-04-03 03:07] LABS: Troponin I 0.023 ng/mL (0.000-0.034)
[2024-04-03] MEDS: LACTATED RINGERS 1,000 ML 150 ML IV CONT (03:18)
[2024-04-03 03:36] LABS: Influenza A QL RT-PCR Negative (Negative); Influenza B QL RT-PCR Negative (Negative); RSV RNA, RT-PCR Negative (Negative); SARS-CoV-2 RNA PCR Negative (Negative)
--- NOTE | 2024-04-03 03:37 | PC.NURSE ---
per edp dr marshall due to hypotension patient to receive 2nd bolus of normal saline. this rn used closed loop communication to confirm route/ dose/ patient/ time/ medication. edp dr. marshall verbalized normal saline bolus.
--- NOTE | 2024-04-03 04:19 | PC.NURSE ---
this rn spoke with Lexi from [facility] transfer center to give patient triage report. Lexi is unsure of wait time.
[2024-04-03] MEDS: PIPERACILLN/TAZ 3.375GM/NS50ML 3.375 GM/50 ML BAG IVPB (05:30)
--- NOTE | 2024-04-03 05:33 | PC.NURSE ---
this rn spoke with Layla from [facility] to give patient update.
[2024-04-03] MEDS: chlorproMAZINE HCL INJ 50 MG/2 ML AMP IM (05:38)
[2024-04-03] MEDS: DOXYCYCLINE 100 MG/NS 100 ML 100 MG/100 ML BAG IVPB (06:05)
[2024-04-03] MEDS: NOREPINEPHRINE 8 MG/D5W 250 ML 8 MG/250 ML BAG 9.38 MG IV CONT (07:09)
--- NOTE | 2024-04-03 07:20 | PC.NURSE ---
this RN spoke to Bernice patient daughter to give patient update on central line insertion and pearce catheter insertion
[2024-04-03 07:24] LABS: Hematocrit 27.9 % (42.0-52.0)
[2024-04-03] MEDS: VANCOMYCIN 1,750 MG/NS 500 ML BAG 250 MG IVPB (08:19)
--- NOTE | 2024-04-03 09:05 | PC.NURSE ---
Pt transferred to [facility] [id number] with current medications, transported by EMS and report called to Rufino BALLESTEROS at ICU. Daughter Bernice update.
--- OUTSIDE RECORDS SUMMARY | 2024-04-08 08:13 | XMS_ITS | Clinical Summary ---
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 Gender Identity Not on file Sexual Orientation Not on file Plan of Treatment Health Maintenance Due Date Last Done Comments Hepatitis C Virus (HCV) Screening 1940 Pneumococcal Immunization (5 0+ years) (1 of 1 - PCV) 07/30/1989 Zoster Immunization (1 of 2) 07/30/1989 Respiratory Syncytial Virus (RSV) Immunization (Adult) (1 - 1-dose 75+ series) 07/30/2014 Influenza Immunization (#1) 2023 SARS-COV-2 Immunization ( season) 2023 DTaP/Tdap/Td Immunization Discontinued 03/31/2012 TdaP Immunization Completed 03/31/2012 Hepatitis B Immunization Aged Out No longer eligible based on patient's age to complete this topic Meningococcal Immunization (ACWY) Aged Out No longer eligible based on patient's age to complete this topic Rotavirus Immunization Aged Out No lo nger eligible based on patient's age to complete this topic
--- OUTSIDE RECORDS SUMMARY | 2024-04-08 08:14 | XMS_ITS | CONTINUITY OF CARE DOCUMENT ---
Author Name meet dsouza Address Unknown Organization [facility] Address [id number] [place] [address] [address] [place] [address] Phone [phone] Care Team Providers Care Curtain Feller Blindstitch Name Role Phone Dion bAraham MD Unavailable ERIN VAZ MD Unavailable [phone] ERIN VAZ MD Unavailable [phone] PROBLEMS Condition Status Date Provider Notes PVD; active Dion Abraham MD CAD active Dion Abraham MD Aneurysm of iliac artery active Dion beebe MD Diastolic CHF active Dion Abraham MD [address] 40 Aortic aneurysm completed - Dion Abraham MD Sleep apnea active Dion Abraham MD History of deep venous thrombosis active Dion Abraham MD Hx of pulmonary embolism active Dion beebe MD Arrhythmia;NML TSH active Dion Abraham MD big runner AV block, 1st degree;not due drugs;neg tsh active Dion Abraham MD Hypothyroidism active Dion Abraham MD part ial thryoidcmty Hyperlipidemia;NEG CRP;lpa 142 active Dion Abraham MD Tobacco use, quit active Dion Abraham MD t oo rmeot to screen FAMILY HISTORY OF HEART DISEASE active Dion Abraham MD [place], mot er pace Cerebral atherosclerosis active Dion beebe MD CVA;lacuanr;plaquing active Dion Light Prostatism active Dion Abraham MD BACK PAIN;CHRONIC active Dion Abraham MD Aortic root aneursymnm active Dion Abraham MD Pulsatile tinnitus, bilateral completed - Dion Abraahm MD Screening active Dion Abraham MD Valvular heart disease active Dion Abraham MD Neuropathic pain active Dion Abraham MD lo w b12, neg rpr B12 deficiency active Dion Abraham MD neg foalte ENCOUNTERS Date Type Provider Location Encounter Diag nosis - In-person encounter Office Visit Fredrick Peña MD [facility] - In-person encounter Office Visit Dion Abraham MD [facility] Pulsatile tinnitus, bilateral - In-person encounter Office Visit Dion Abraham MD [facility] Neuropathic painAortic aneurysmTobacco use, quitAortic root aneursymnm - In-person encounter Office Visit Dion Abraham MD [facility] B12 deficiencyArrhythmia;NML TSHScreeningTobacco use, quitFAMILY HISTORY OF HEART DISEASECerebral atherosclerosisCVA;lacuanr; plaquingProstatismBACK PAIN;CHRONIC - In-person encounter Office Visit Dion Abraham MD [facility] Sleep apneaHistory of deep venous thrombosisHx of pulmonary embolismArrhythmia;NML TSHAV block, 1st degree;not due drugs;neg tshHypothyroidismHyperlipid emia;NEG CRP;lpa 142 - In-person encounter Office Visit Dion Abraham MD [facility] Diastolic CHFB12 deficiencyNeuropathic painValvular heart diseaseAortic aneurysm VITAL SIGNS Date Observation Value Provider Body Mass Index (Ratio) 24.84 kg/m2 Renato Rosenthal ACCOUNTING OFFICER weight E&M 163.4 [lb_av] Evan Jonathan blood pressure, diastolic 65 mm[Hg] Riaz pizarro Jonathan blood pressure, systolic 109 mm[Hg] Riazl dahlia Jonathan oxygen saturation, oximetry 97 % Evan Huffmanam pulse rate 65 /min Evan Jonathan respiratory rate E&M 14 /min Evan stallworth blood pressure, cuff size regular Riaz pizarro [place] height E&M 68 [in_i] Evan [place] Body Mass Index (Ratio) 24.93 kg/m2 Ana Abraham MD blood pressure, diastolic 60 mm[Hg] Manjinder anderson [facility] blood pressure, systolic 100 mm[Hg] Daphnie comer [facility] blood pressure, cuff size regular Manjinder anderson [facility] oxygen saturation, oximetry 92 % Roberta [facility] pulse rate 62 /min Roberta [facility] weight E&M 164 [lb_av] Roberta [facility] height E&M 68 [in_i] Roberta [facility] Body Mass Index (Ratio) 24.17 kg/m2 Ana Abraham MD pulse rate 59 /min Dee Borja blood pressure, cuff size regular [facility], diastolic 68 mm[Hg] Ta bitha Fernley blood pressure, systolic 114 mm[Hg] Tab itha Borja oxygen saturation, oximetry 97 % Dee Borja weight E&M 159 [lb_av] Dee Borja respiratory rate E&M 12 /min Dee Borja height E&M 68 [in_i] Dee Borja Body Mass Index (Ratio) 25.09 kg/m2 Ana Abraham MD blood pressure, diastolic 62 mm[Hg] Ja rret blood pressure, systolic 120 mm[Hg] Jar ret pulse rate 51 /min Russel blood pressure, cuff size regular Ja rret oxygen saturation, oximetry 99 % respiratory rate E&M 14 /min Russel weight E&M 165 [lb_av] Russel y height E&M 68 [in_i] Russel y Body Mass Index (Ratio) 24.63 kg/m2 Ana Abraham MD blood pressure, diastolic 74 mm[Hg] Li nkLogic blood pressure, systolic 123 mm[Hg] Missy ic blood pressure, cuff size regular Ja rret blood pressure, diastolic 74 mm[Hg] Ja rret blood pressure, systolic 123 mm[Hg] [facility] pulse rate 55 /min Russel oxygen saturation, oximetry 93 % Russel respiratory rate E&M 14 /min Russel weight E&M 162 [lb_av] Rsusel y height E&M 68 [in_i] Russel y Body Mass Index (Ratio) 25.24 kg/m2 Ana Abraham MD blood pressure, diastolic 70 mm[Hg] Li nkLogic blood pressure, systolic 102 mm[Hg] Missy kLogic blood pressure, cuff size regular Ke rri Gruenenfelder blood pressure, diastolic 70 mm[Hg] Ke rri Gruenenfelder blood pressure, systolic 102 mm[Hg] Ker ri Gruenenfelder oxygen saturation, oximetry 96 % Delilah Tigre respiratory rate E&M 12 /min Delilah Rondon rehana pulse rate 53 /min Delilah Carmen er weight E&M 166 [lb_av] Delilah Carmen er height E&M 68 [in_i] Delilah Carmen [facility] ALLERGIES No Known Drug Allergies HISTORY OF MEDICATION USE Medication Status Instructions Dates Provider Indications Com ments Entresto 24-26 mg tablet active TAKE 1 TABLET BY MOUTH TWICE A DAY Dion Abraham MD trospium 20 mg tablet active Dion Abraham MD tramadol 50 mg tablet completed - Dion Abraham MD Flomax 0.4 mg capsule completed - Dion Abraham MD buspirone 5 mg tablet active 1 tablet by mouth twice a day Sneha Richardson NP cyanocobalamin (vitamin B-12) 1,000 mcg capsule active Take 1 capsule by mouth once a day Sneha Richardson NP rosuvastatin 10 mg tablet active Take 1 tablet by mouth once a day Ely Bruce mirtazapine 15 mg tablet active 1 tablet by mouth once a day Sneha Richardson NP Xarelto 10 mg tablet active 1 tablet by mouth once a day Sneha Richardson NP venlafaxine 37.5 mg capsule,extended release 24hr completed - Sneha Richardson NP levothyroxine 75 mcg tablet active Take 1 tablet by mouth once a day Sneha Richardson NP sildenafil 50 mg tablet active TAKE ONE TABLET BY MOUTH ONCE DAILY 30 MINUTES TO 4 HOURS BEFORE SEXUAL ACTIVITY NEEDED Delilah Landeros SOCIAL HISTORY Date Observation Value Provider number of grandchildren Fredrick Rosenthal NP personal history of marijuana use no Jaylene Rosenthal NP drug use no Jaylene Zimmermanluri TAYLOR alcohol use, average drinks per day 2 /d Jaylene Rosenthal NP alcohol use, type gin Jaylene Na lluri ACCOUNTING OFFICER alcohol use yes Jaylene Nalluri ACCOUNTING OFFICER smoking, year quit 1971 Jaylene N alluri ACCOUNTING OFFICER number of years as a smoker 20 a Jaylene Nalluri ACCOUNTING OFFICER smoking history, total pack/day 1.5 ppd Jaylene Nalluri ACCOUNTING OFFICER cigarette use yes Jaylene Nallur i ACCOUNTING OFFICER smoking status Former smoker Jaylene Sterling uri ACCOUNTING OFFICER personal history of marijuana use no Dion Abraham MD drug use no Dion Pepea Sharad Light alcohol use, average drinks per day 2 /d Dion Abraham MD alcohol use, type gianabell ivy MD alcohol use yes Dion Light smoking, year quit 1971 Dion miller MD number of years as a smoker 20 a Dion Abraham MD smoking history, total pack/day 1.5 ppd Dion Abraham MD cigarette use yes Dion Abraham MD smoking status Former smoker Dion coleman MD personal history of marijuana use no Dion Abraham MD drug use no Dion Serota Sharad Light alcohol use, average drinks per day 2 /d Dion Abraham MD alcohol use, type gianabell ivy MD alcohol use yes Dion Pepea Sharad Light smoking, year quit 1971 Dion miller MD number of years as a smoker 20 a Dion Abraham MD smoking history, total pack/day 1.5 ppd Dion Abraham MD cigarette use yes Dion Abraham MD smoking status Former smoker Dion coleman MD quit smoking, stage quit Dion jaffe MD personal history of marijuana use no Dion Abraham MD drug use no Dion Serota Sharad Light alcohol use, average drinks per day 2 /d Dion Abraham MD alcohol use, type gin Dion ivy MD alcohol use yes Dion Serotjared Lihgt smoking, year quit 1971 Dion miller MD number of years as a smoker 20 a Dion Abraham MD smoking history, total pack/day 1.5 ppd Dion Abraham MD cigarette use yes Dion Abraham MD smoking status Former smoker Dion coleman MD personal history of marijuana use no Verah Bonareri ACCOUNTING OFFICER drug use no Verah Bonareri ACCOUNTING OFFICER alcohol use, average drinks per day 2 /d Verah Bonareri ACCOUNTING OFFICER alcohol use, type gin Verah Janelle reri ACCOUNTING OFFICER alcohol use yes Verah Bonareri ACCOUNTING OFFICER smoking, year quit 1971 Vermauricio Bon areri ACCOUNTING OFFICER number of years as a smoker 20 a Verah Bonareri ACCOUNTING OFFICER smoking history, total pack/day 1.5 ppd Verah Bonareri ACCOUNTING OFFICER cigarette use yes Verah Bonareri ACCOUNTING OFFICER smoking status Former smoker Verah Bonare ri ACCOUNTING OFFICER drug use no Tara Ventimig juarez [facility] alcohol use, type gin Tara Boyd timiglia [facility] alcohol use, average drinks per day 2 /d Tara Ventimiglia HVAC SPECIALIST alcohol use yes Tara Ventimig juarez HVAC SPECIALIST number of years as a smoker 20 a Delilah Udayer smoking history, total pack/day 1.5 ppd Delilah Udayer smoking, year quit 1971 Delilah doll cigarette use yes Delilah Maryellen keane smoking status Former smoker Delilah Bradford nfelder FUNCTIONAL STATUS Date Observation Value Provider HRA, CV Assess/Plan, Angina (inactive) Management Plan continue current therapy Jayelnelucila Rosenhtal ACCOUNTING OFFICER HRA, CV Assess/Plan, Angina (inactive) Management Plan continue current therapy Dion Abraham MD HRA, CV Assess/Plan, Angina (inactive) Management Plan continue current therapy Dion Abraham MD INSURANCE PROVIDERS Payer name Policy type / Coverage type [place] red libertarian ID [facility] [id number] ADVANCE DIRECTIVES Name Date DISCUSSED - NO DECISION MADE TREATMENT PLAN Date Name Performer [id number],C,[facility] replaceme [facility] [id number],C,Will add magen min B12 [facility] [id number],C,R eported history of MVP will do f/u echo [facility] [id number],C,A t 44 mm per echo 2 years ago at [facility]. Will do f/u echo for further evalution. continue BP control and statin therapy [facility] [id number],C,F ound on recent imaging at [facility]SH. Patient reports at 3.3cm. We will obtain report. If stable will plan for follow up imaging in a year. Patient BP well controlled at visit today. Will add statin as LDL 110. Taramaryann Montesinos [facility] Cardiology: a dd replacement therapy Jaylene Nalluri ACCOUNTING OFFICER Cardiology: H is updated medication list for this problem includes: Rosuvastatin 10 Mg Tablet (Rosuvastatin) ..... Take 1 tablet by mouth once a day Jaylene Nalluri ACCOUNTING OFFICER Cardiology: p ro 328, ef 40 by cath Jaylene Erasmoluri ACCOUNTING OFFICER Cardiology: T he patient is using CPAP on a regular basis. The patient has been benefiting from therapy and should continue use. Jaylene Nalluri ACCOUNTING OFFICER Cardiology: s everre pvd dital righ leg B TK Jaylene Nalluri ACCOUNTING OFFICER Cardiology:Stable with no angina Jaylene Nalluri ACCOUNTING OFFICER Cardiology: 5 .4 f piper with Jaylene Nalluri TAYOLR Cardiology: 3 .5 by 4.5 left iliac, neg aaa s chedule for iliac covered stent r isks, and options and complications d/w patient and he is agreeable to proceed Jaylene Nalluri TAYLOR Cardiology Dion Abraham MD Cardiology Dion Abraham MD Cardiology: n o gall stone n eg aaa m eg streeed 2019 per pt n eg egfr, neg a1c and uacr Dion Abraham MD Cardiology: p ro 328, ef 40 by cath Dion Abraham MD Cardiology: 3 .5 by 4.5 left iliac, neg aaa Dion Abraham MD Cardiology: n m psa pre pt Dion Abraham MD Cardiology:on 12 Dino Abraham MD Cardiology: m ild tr and mod mr and mild ai, pap 21 Dion Abraham MD Cardiology: 7 5% dx, score 2400, posst pet Dion Abraham MD Cardiology: s everre pvd dital righ leg Dion Abraham MD Cardiology: 5 .4 n abils watching Dion Abraham MD :severre pvd dital righ leg Ana Abraham MD :pro 328, ef 40 by cath Dion jaffe MD :75% dx, score 2400, posst pet H julius Abraham MD [facility] a and aaa gram Dion Abraham MD Cardiology;[facility] with root a and aaa gram Dion Abraham MD Cardiology;[facility] with root aand aaa gram : e f 65 pro 328 Dion Abraham MD Cardiology;[facility] with root a and aaa gram Dion Abraham MD Cardiology;[facility] with root aand aaa gram :nm psa pre pt Dion Abraham MD Cardiology;[facility] with root aand aaa gram : 3 .5 by 4.5 left iliac, neg aaa Dion Serotjared SIEGEL Cardiology;[facility] with root aand aaa gram :no gall stone n eg aaa m eg streeed 2020 per pt n eg egfr, neg a1c and uacr Dion Serotjared SIEGEL Cardiology;[facility] with root a and aaa gram Dion Abraham MD Cardiology;[facility] with root aand aaa gram : 5 .4 Dion Serotjared SIEGEL Cardiology;[facility] with root aand aaa gram : a ve 56 low 36 t acky braday n svt and svt Dion Abraham MD Cardiology;[facility] with root aand aaa gram : 5 .4 Dion Serotjared SIEGEL Cardiology;[facility] with root aand aaa gram : s core 2400 pos pet Dion Abraham MD :score 2800 pos pet Dion Serot jared SIEGEL :3.5 by 4.5 left iliac Dion miller MD :5.4 Dion Serotjared SIEGEL :4.8 Dion Serota :2800 Dion Abraham MD Cardiology: T he patient is using CPAP on a regular basis. The patient has been benefiting from therapy and should continue use. Dion Abraham MD Cardiology:ave 56 lo w 36 t acky braday n svt and svt Dion Serotjared SIEGEL Cardiology: m ild tr and mod mr and mild ai, pap 21 Dion Abraham MD Cardiology:neg aaa m eg streeed 2020 per pt n eg egfr, neg a1c and uacr Dion Abraham MD Cardiology: e f 65 pro 328 Dion Abraham MD Cardiology:4.7 Dion Abraham MD Cardiology Dion Abraham MD Cardiology Dion Abraham MD Cardiology: H is updated medication list for this problem includes: Crestor 10 Mg Tablet (Rosuvastatin) ..... Take 1 tablet by mouth once a day Dion Abraham MD Cardiology Dion Abraham MD :mild tr and mod mr and mild ai, pap 21 Dion Abraham MD :bilatedral Dion Abraham MD :ef 65 pro 328 Dion Abraham MD :neg egfr, neg a1c and uacr Ana Abraham MD Cardiology: N o recurrence. On Xarelto. Sneha Richardson NP Cardiology: T he patient is using CPAP on a regular basis. The patient has been benefiting from therapy and should continue use. Sneha Richardson NP Cardiology: m ild TR per last echo 07/2022 Sneha Richardson NP Cardiology: l ast ef 65% 07/2022 c linically appears compensated Sneha Richardson NP Cardiology: L ast ov F ound on imaging at [facility]SH. Patient reports at 3.3cm. We will obtain report. If stable will plan for follow up imaging in a year. Patient BP well controlled at visit today. Will add statin as LDL 110. July 25, 2023 w ill obtain aorta duplex Sneha Richardson NP Cardiology: L ast echo 07/2022 S inus of Valsalva is dilated. Sinus of Valsalva is 4.16 cm. Ascending aorta is dilated. Ascending Aorta is 4.81 cm. w ill repeat echo and check labs Sneha Richardson NP Cardiology:add replacement thera py Tara Ventimiglia [facility] Cardiology:Will add vitamin B12 Tara Ventimiglia [facility] Cardiology:Reported history of [employer] will do f/u echo Tara Ventimiglia [facility] Cardiology:At 44 mm per echo 2 years ago at [place]. Will do f/u echo for further evalution. continue BP control and statin therapy Tara Montesinos [facility] Cardiology:Found on recent imaging at OSH. Patient reports at 3.3cm. We will obtain report. If stable will plan for follow up imaging in a year. Patient BP well controlled at visit today. Will add statin as LDL 110. Tara Montesinos [facility] Date Name PROTHROMBIN TIME WIT H INR LIPID PANEL CBC (INCLUDES DIFF/P LT) BASIC METABOLIC PANE L W/EGFR CT Angio Chest (Aort a) Complete Echo RPR (MONITOR) W/REFL TITER PROTHROMBIN TIME WIT H INR LIPID PANEL CBC (INCLUDES DIFF/P LT) BASIC METABOLIC PANE L W/EGFR Holter Monitor 24 Hr Carotid Duplex Bilat eral CXR- PA/Lat Arterial Duplex Bi-L ower EX Arterial Duplex Bi-L ower EX CT Angio, abdomen an d pelvis CT Angio Chest (Aort a) CT, Coronary Calcium Score Stress Cardiac PET-C T Carotid Duplex Bilat eral CXR- PA/Lat Holter Monitor 24 Hr Complete Echo HEMOGLOBIN A1c PROBNP, N TERMINAL Microalb/Creatinine Urine, Random CBC (INCLUDES DIFF/P LT) CRP, high sensitivit y Lipoprotein (a) LIPID PANEL CT, Coronary Calcium Score BASIC METABOLIC PANE L W/EGFR Aorta Duplex Ultraso und Complete Echo TSH, free T4, total T3 Holter Monitor [address], Coronary Calcium Score Aorta Duplex Ultraso und Complete Echo HISTORY OF PROCEDURES Procedure Date Procedure Name Provider Procedure Notes S tatus Complex e/m visit ad d on Casey SIEGEL completed Complex e/m visit ad d on Dion Abraham MD completed Complex e/m visit ad d on Dion Abraham MD completed CT- Coronary CA score Dion Abraham MD completed Complex e/m visit ad d on Dion Abraham MD [facility] NPR PER MATTHEW REF#: [id number] completed EKG Dion Abraham MD complete d EKG Dion Abraham MD complete d
--- OUTSIDE RECORDS SUMMARY | 2024-04-08 08:15 | XMS_ITS ---
Author Organization [facility] Address [address] [place] [address] Care Team Providers Care Lifestyle Block Farmer Name Role Phone Martinez Pace MD Primary Care Provider Dion Abraham MD Unavailable [phone] Basil Adhikari MD Unavailable [phone] Active Problems Problem Noted Date Diagnosed Date Dysphagia 04/07/2024 Hypotension 04/06/2024 Aspiration pneumonia (CMS/HCC) 04/06/2024 Shortness of breath 04/06/2024 Acute respiratory failure 04/03/2024 Aortic root aneurysm 03/15/2024 Iliac aneurysm ([facility]/HCC) 02/11/2024 Numbness and tingling of upper extremity 024 Encounter for colonoscopy du e to history of adenomatous colonic polyps 11/03/2023 Encounter for colonoscopy following colon polyp removal 11/24/2018 Overview (11/24/2018): Added automatically from request for surgery [id number] Adenomatous polyp of cecum 06/18/2018 Overview (06/18/2018): Added automatically from request for surgery [id number] senior care current use of anticoagulant therapy 0 11/07/2016 Basal cell carcinoma (BCC) of antihelix of ear 0 04/16/2016 Ascending aortic aneurysm 09/05/2015 Deep vein thrombosis (DVT) (CMS/HCC) 06/22/2015 Pulmonary embolism 06/22/2015 Thyroid disease Neuropathy Depression Overview (07/18/2017): Depression GARCÍA on CPAP OA (osteoarthritis) History of pulmonary embolus (PE) Current Oncology Plans No current plan information found. Past Plans No past plan information found. Radiation Treatments * No radiation treatments are documented for this patient in [facility]. Treatments may have been administered in another system. Lifetime Dose Tracking * Chemical Lifetime Dose Automatic Entry Manual Entr y Fluoro Time 2.3 minutes 2.3 minutes 0 minutes Air kerma at the reference point (Ka,r) 860.2 mGy 1 8.2 mGy 842 mGy DLP 844 mGycm 844 mGycm 0 mGycm
--- OUTSIDE RECORDS SUMMARY | 2024-04-08 08:15 | XMS_ITS | Continuity of Care Document ---
Author Organization [facility] Address [address] [place] [address] Phone Care Team Providers Care Brake Repairer Name Role Phone Brennon Davis MD Unavailable Unavailable Allergies, Adverse Reactions, Alerts Substance Reaction Status Criticality No Known Allergies Active No Inform ation Medications Medication Instructions Dosage Effective Dates (start - stop) Status Comments Xarelto 20 mg tablet - Active Synthroid 75 mcg tablet take 1 tablet by oral route every day 75 MCG - Active Procedures Procedure Date X-ray exam shoulder minimum 2 views Global/Postop followup visit Global/Postop followup visit X-ray exam shoulder minimum 2 views Global/Postop followup visit Office/outpatient visit,est, mod 2017 Office/outpatient visit,est, [facility] [place] X-ray exam shoulder minimum 2 views Office/outpatient visit,est, low 2015 Office/outpatient visit,est, low 2014 Global/Postop followup visit Global/Postop followup visit X-ray exam shoulder minimum 2 views Global/Postop followup visit Office/outpatient visit,[facility], [facility] 2014 Advance Directives Directive Yes / No Effective Date File Name No Information Encounters Encounter Description Practice Location Reason(s) For Visit Diagnoses Date Provider Providers Copied on Encounter [facility], [address], [place], [place], [id number], [place] tel:[phone] [facility] Bilateral Shoulders (chief complaint) Presence of left artificial shoulder jointPresence of right artificial shoulder joint May-0 6-201 9 Ryan Willett. [address] [facility] [place] [address], [place], [place], [id number] , [place]. tel:[phone] Referring Provider: Gamal Hong, [address] [facility] [address], [place], [address]. tel:[phone] [facility], [address] [address], [place], [place], [id number], [place] [phone] [facility] [employer] Right shoulder (chief complaint) Presence of right artificial shoulder joint Aug-0 3-201 8 Ryan Brennon. [address] [facility], [address] [place] [address], [place], [place], [id number] , [place]. tel: [phone] [facility], [address] [address], [place], [place], [id number], [place] tel:[phone] [facility] Right shoulder (chief complaint) Presence of right artificial shoulder joint Gibson-2 0-201 8 Ryan Brennon. [address] [facility], [place] [address], [place], [place], [id number] , [place]. tel: [phone] [facility], [address], [id number], [place] [phone] [facility] [employer] right shoulder (chief complaint) Presence of right artificial shoulder joint May-2 3-201 8 Ryan Brennon. [address] [facility], [facility] [address], [place], [place], [id number] , [place]. tel: [phone] [facility], [address] [address], [place], [place], [id number], [place] tel:-[phone] [facility] [employer] Primary osteoarthritis, right shoulder Apr-1 6-201 8 Ryan Willett. [address] [facility], [place] [address], [place], [place], [id number] , [place]. tel: [phone] Office/outpat ient visit,est, mod [facility], [address] [address], [place], [place], [id number], [place] tel:[phone] [facility] Right Shoulder (chief complaint) Primary osteoarthritis, right shoulder Feb-2 6-201 8 Ryan Willett. [address] [address], [place], [place], [id number] , [place]. tel:[phone] Office/outpat ient visit,est, [facility], [address] [address], [place], [place], [id number], [place] tel:-[phone] [facility] right shoulder pain (chief complaint) Pain in right shoulderPrimary osteoarthritis, right shoulder Feb-2 1-201 8 Dinan Mariam. [address] [place] [address], [place], [place], [id number] , [place]. tel:[phone] Referring Provider: Gamal Hong, [facility] [address], [place], [address]. tel:[phone] Office/outpat ient visit,est, [facility], [address] [address], [place], [place], [id number], [place] tel:[phone] [facility] Left Shoulder (chief complaint) Presence of left artificial shoulder joint Apr-0 5-201 6 Dinan Mariam. [address] [place] [address], [place], [place], [id number] , [place]. tel:[phone] Office/outpat ient visit,est, [facility], [address] [place] [address], [id number], [place] tel:-[phone] [facility] Presence of left artificial shoulder joint Oct-0 5-201 5 Ryan Willett. [address] [place] [address], [place], [place], [id number] , [place]. tel:[phone] [facility], [address] [place] [address], [id number], [place] tel:[phone] [facility] Shoulder replacement status Aug- 0-201 5 Ryan Willett. [address] [facility], [place] [address], [place], [place], [id number] , [place]. tel: [phone] [facility], [address] [address], [place], [place], [id number], [place] tel:-[phone] [facility] Shoulder replacement status 5 Ryan Willett. [address] [facility], [address] [place] [address], [place], [place], [id number] , [place]. tel: [phone] [facility], [address], [id number], [place] tel:[phone] [facility] Shoulder replacement status 5 Ryan Willett. [address] [facility], [address], [id number] , [place]. tel: [phone] [facility], [address], [id number], [place] tel:[phone] [facility] Shoulder replacement status 5 Ryan Willett. [address] [facility], [address], [id number] , [place]. tel: [phone] [facility], [address], [id number], [place] tel:[phone] [facility] ARTHROPATHY NOS-SHLDER 5 Frankie Joyce. [address] [facility], [address] [place] [address], [place], [place], [id number] , [place]. tel: [phone] Office/outpat ient visit,new, mod [facility], [address], [id number], [place] tel:[phone] [facility] ARTHROPATHY NOS-SHLDER May- 1 5 Ryan Willett. [address], [id number] , [place]. tel: [phone] Family History Family Member Type Diagnosis Age At Onset Father Problem (finding) Lymphoma Brother Problem (finding) Heart Disease Son Problem (finding) Mental illness Father Problem (finding) Hodgkin's disease Mother Problem (finding) Heart disease Brother Problem (finding) Cancer, unknown Immunizations Vaccine Date Status Comments influenza, injectable, quadrivalent, (3 years or older) administered Source: Other Provid er Flu (split) (3 yrs or older) administered Note: patient reported ; Source: Source Unspecified Payers Payer name Insurance type Covered libertarian ID Maryjared pa(s) Trisha Blue Cross Blue Shiel d [facility] [id number] Social History Type Description Quantity Date Captured Comments Alcohol Use Details Caffeine Use Details Unknown Tobacco Use Status Ex-cigarette smoker 019 Smoking Status Former smoker Non-Smoking Tobacco Use Details : No Details Available : No Details Available Sex Male Vital Signs Date / Time: Height Weight BMI Pulse Rate Blood Pressure Temperature Respiratory Rate Body Surface Area Head Circumference Head Circ. Percentile Wt./Yair. Percentile BMI percentile Pulse Ox Inhaled Ox 8:40 AM 68.50 in 80.739 kg (178.00 lbs) 26.6 7 kg/m yakover (2) Chief Complaint And Reason For Visit From encounter dated '07/20/2018 08:40'. Bilateral Shoulders (chief complaint). Description: Patient presents to the office for bilateral shoulder pain. Reason For Referral Reason For Referral No Information Plan Of Treatment Date Type Action Status Referral Ordered: X-ray exam shoulder minimum 2 views Bilateral shoulder ordered Referral Ordered: CT scan Upper Extrem W/o Contrast RT shoulder Appointment date/timeframe: 05/15/2017 ordered Referral Ordered: X-ray exam shoulder minimum 2 views LT ordered Patient Education Shoulder Stretches: Exe rcises completed Patient Education Body Mass Index: After Your Visit completed Patient Education Shoulder Replacement: B efore Your Surg completed History Of Present Illness Encounter Date Complaint History Of Prese nt Illness Bilateral Shoulders Patient pres ents to the office for bilateral shoulder pain. Right shoulder Patient comes in today for follow up of his right total shoulder replacement Right shoulder Patient comes in today for follow up of his right total shoulder replacement right shoulder Mr. Alonso comes in the office today for his right shoulder. Right Shoulder Patient comes in to the office for his right shoulder pain right shoulder pain Mr Alonso is a 76 year old male who complains of right shoulder pain. He presents with pain and decreased ROM on the right side. He states that the symptoms have been chronic non-traumatic. The symptoms occur occasionally. The problem is worse. Currently the patient states that the symptoms are mild-moderate. The pain is described as aching, dull and sharp. The symptoms occur intermittently. The patient is experiencing pain in the following location: anterior shoulder on the right side. He rates his worst pain as 2/10. The pain does not radiate. The symptoms are aggravated by lifting and certain movements. Jules states that the symptoms are relieved by injections. He received a cortisone injection by Dr. Daryl lane January and got relief for about 6-7 weeks. In addition to right shoulder pain the patient is also experiencing crunching and decreased mobility. The patient has had a previous x-ray. He had right shoulder xrays in August 2016. Xrays were imported in the PACS system at . He has had no previous treatment. Patient has not had any pertinent therapy for this condition. He is status post left TSA in 2014 with an excellent outcome. There were no previous episodes. He experienced no previous injury. Left Shoulder Mr. 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 He states that he is improving. He has been able to row and continue his home exercise program. Repeat xrays were obtained in the office today. 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 Functional Status Date Functional Assessmen t No Information Instructions Date Instruction Additional Infor mation No Information Assessments Type Assessment Date assessment Presence of left artificial shou lder joint assessment Presence of right artificial trever ulder joint Patient Care Teams Name Effective Dates (start - stop) Status Members No Information
--- OUTSIDE RECORDS SUMMARY | 2024-04-08 08:15 | XMS_ITS | Encounter Summary ---
Author Organization [facility] Address [address] [place] [address] Care Team Providers Care Conservation Science Teacher Name Role Phone Martinez Pace MD Primary Care Provider Dion Abraham MD Unavailable [phone] Basil Adhikari MD Unavailable [phone] Encounter Details Date Type Department Care Team (Late st Contact Info) Description 06/11/2017 Telephone [facility] Operating Room [address] [place] [address] Sara Tipton Social History Tobacco Use Types Packs/Day Years Used Date Smoking Tobacco: Former Alcohol Use Standard Drinks/Week Comments Yes 0 (1 standard drink = 0.6 oz pur e alcohol) Sex and Gender Information Value Date Recorded Sex Assigned at Not on file Legal Sex Male 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 Gender Identity Not on file Sexual Orientation Straight 10/21/2019 9: 52 AM CDT documented as of this encounter Plan of Treatment Not on file documented as of this encounter Visit Diagnoses Not on filedocumented in this encounter Care Teams Conservation Science Teacher Relationship Specialty Start Date End Date Martinez Pace MD [address] [facility] [address] [place] [address] PCP - General 05/02/16 Dion Abraham MD [address] [place] [address] Referring Physician Cardiology 02/18/24 Basil Adhikari MD [address] [facility] [address] [place] [address] Consulting Physician Cardiothoracic Surgery 02/19/24 documented as of this encounter
--- OUTSIDE RECORDS SUMMARY | 2024-04-08 08:15 | XMS_ITS | Clinical Summary ---
Author Organization [facility] Address [address] [place] [address] Care Team Providers Care Paper Folder Name Role Phone Martinez Pace MD Primary Care Provider Dion Abraham MD Unavailable [phone] Basil Adhikari MD Unavailable [phone] Allergies No known active allergies Medications levothyroxine (SYNTHROID, LEVOTHROID) 75 mcg tablet Take 1 tablet (75 mcg total) by mouth daily Suspended PreviDent 5000 Booster Plus 1.1 % paste 08/25/19 20 Suspended LORazepam (ATIVAN) 0.5 mg tablet 09/23/19 20 2023 Discontinued(T herapy completed) mirtazapine (REMERON) 15 mg tablet Take 1.5 tablets (22.5 mg total) by mouth nightly 09/24/19 20 Suspended sildenafiL (VIAGRA) 50 mg tablet TAKE ONE TABLET BY MOUTH ONCE DAILY 30 MINUTES TO 4 HOURS BEFORE SEXUAL ACTIVITY NEEDED 09/15/19 22 2023 Discontinued(T herapy completed) venlafaxine XR (EFFEXOR-XR) 37.5 mg 24 hr capsule 10/20/19 22 2023 Discontinued(T herapy completed) latanoprost (XALATAN) 0.005 % ophthalmic solution Administer 1 drop into the right eye nightly 12/12/19 22 Suspended cyanocobalamin, vitamin B-12, 1,000 mcg capsule Take 1 capsule by mouth daily 07/11/19 23 Suspended molnupiravir 200 mg capsule (EUA) Take 4 capsules (800 mg total) by mouth every 12 (twelve) hours 02/28/20 22 2023 Discontinued(T herapy completed) predniSONE (DELTASONE) 10 mg tablet Take 1 tablet (10 mg) by mouth daily 01/25/20 22 2023 Discontinued(T herapy completed) rosuvastatin (CRESTOR) 10 mg tablet Take 1 tablet (10 mg total) by mouth daily 07/11/19 23 Suspended tadalafiL (CIALIS) 20 mg tablet Take 1 tablet (20 mg total) by mouth daily as needed 09/26/19 23 2024 Discontinued(S top Taking at Discharge) busPIRone (BUSPAR) 5 mg tablet Take 1 tablet (5 mg total) by mouth 2 (two) times a day 05/12/19 24 Suspended sodium bicarbonate 650 mg tablet Take 1 tablet (650 mg total) by mouth 2 (two) times a day 05/21/19 24 2023 Discontinued(T herapy completed) vibegron 75 mg tablet Take 75 mg by mouth daily Suspended rivaroxaban (Xarelto) 10 mg tabletIndication s:Deep vein thrombosis (DVT) of both lower extremities, unspecified chronicity, unspecified vein (HCC),FPC current use of anticoagulant therapy,Other pulmonary embolism without acute cor pulmonale, unspecified chronicity (HCC) Take 1 Tablet (10 mg) by mouth daily. 30 tablet 03/04/20 24 2024 Discontinued(A lternate therapy) sacubitriL-valsa rtan (ENTRESTO) 24-26 mg tabletIndication s:chronic heart failure Take 1 tablet by mouth 2 (two) times a day 2024 Discontinued(S top Taking at Discharge) rivaroxaban (XARELTO) 10 mg tabletIndication s:VTE Prophylaxis Take 1 tablet (10 mg total) by mouth daily 2024 Discontinued(S top Taking at Discharge) trospium (SANCTURA) 20 mg tablet Take 1 tablet (20 mg total) by mouth daily Suspended rivaroxaban (XARELTO) 20 mg tabletIndication s:atrial fibrillation Take 1 tablet (20 mg total) by mouth daily with dinner 03/27/19 Suspended acetaminophen 500 mg capsuleIndicatio ns:Pain Take 2 capsules (1,000 mg total) by mouth every 6 (six) hours as needed for pain 03/27/19 Suspended amiodarone (PACERONE) 200 mg tablet Take 1 tablet (200 mg total) by mouth daily 03/28/192025 Suspended aspirin 81 mg chewable tablet Take 1 tablet (81 mg total) by mouth daily 03/28/192025 Suspended furosemide (LASIX) 40 mg tablet Take 1 tablet (40 mg total) by mouth daily for 7 days 03/27/192024 Discontinued potassium chloride ER (KLOR-CON) 20 mEq CR tablet Take 1 tablet (20 mEq total) by mouth daily for 7 days 03/27/192024 Discontinued Active Problems Problem Noted Date Diagnosed Date Dysphagia 04/07/2024 Hypotension 04/06/2024 Aspiration pneumonia (CMS/HCC) 04/06/2024 Shortness of breath 04/06/2024 Acute respiratory failure 04/03/2024 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 Numbness and tingling of upper extremity 024 Encounter for colonoscopy du e to history of adenomatous colonic polyps 11/03/2023 Encounter for colonoscopy following colon polyp removal 11/24/2018 Overview (11/24/2018): Added automatically from request for surgery [id number] Adenomatous polyp of cecum 06/18/2018 Overview (06/18/2018): Added automatically from request for surgery 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 0 11/07/2016 Basal cell carcinoma (BCC) of antihelix of ear 0 04/16/2016 Ascending aortic aneurysm 09/05/2015 Deep vein thrombosis (DVT) (CMS/HCC) 06/22/2015 Pulmonary embolism 06/22/2015 Thyroid disease Neuropathy Depression Overview (07/18/2017): Depression GARCÍA on CPAP OA (osteoarthritis) History of pulmonary embolus (PE) Encounters Date Type Department Care Team Description 04/03/2024 9:45 AM SPLIT AND DRUM ROOM SUPERVISOR - Present Hospital Encounter [address] [phone] Pedro Senior MD Martin, Robert S., MD Barks, Marissa Montenegro, DO Vishnu Curtis MD Hammes, Tara Aldana MD Acute respiratory failure with hypoxia (CMS/HCC) (HCC) (Primary Dx); Hypotension, unspecified hypotension type [I95.9]; Aspiration pneumonia, unspecified aspiration pneumonia type, unspecified laterality, unspecified part of lung (HCC) [J69.0]; Shortness of breath [R06.02]; Dysphagia, unspecified type [R13.10]; Hypotension due to hypovolemia [E86.1]; Aneurysm of ascending aorta without rupture (HCC) [I71.21]; Other pulmonary embolism without acute cor pulmonale, unspecified chronicity (HCC) [I26.99]; Deep vein thrombosis (DVT) of both lower extremities, unspecified chronicity, unspecified vein (HCC) [I82.403] 04/03/2024 Orders Only [facility] Hospitalists [address] [place] [phone] Zoran Leyva DO 03/30/2024 Orders Only Cardiovascular and Thoracic Surgery [address] [place] [address] [place] [phone] Candis Chaparro, RN Aneurysm of ascending aorta without rupture (HCC) (Primary Dx); Iliac artery aneurysm (CMS/HCC) (HCC) 03/29/2024 Telephone Cardiovascular and Thoracic Surgery [address] [place] [address] [place] [phone] Basil Adhikari MD 03/22/2024 3:00 PM SPLIT AND DRUM ROOM SUPERVISOR - 03/22/2024 5:15 PM SPLIT AND DRUM ROOM SUPERVISOR Surgery [address] [phone] Basil Adhikari MD Left internal iliac plug, left iliac aneurysm repair [40756 (CPT??)] 03/22/2024 2:54 PM SPLIT AND DRUM ROOM SUPERVISOR Anesthesia Event [address] [place] [address] Gamal Asher MD PhD Deyvi Urrutia MD 03/18/2024 1:30 PM S[employer]IT AND DRUM ROOM SUPERVISOR - 03/18/2024 7:50 PM SPLIT AND DRUM ROOM SUPERVISOR Surgery [facility] Operating Room [address] [place] [phone] Basil Adhikari MD Mini ascending aortic root replacement 03/18/2024 12:47 PM SPLIT AND DRUM ROOM SUPERVISOR Anesthesia Event [facility] Operating Room [address] [place] [phone] Derek Marin MD PhD Gamal Asher MD PhD 03/18/2024 12:10 PM SPLIT AND DRUM ROOM SUPERVISOR Ancillary Procedure [facility] Operating Room [address] [place] [phone] 03/18/2024 9:05 AM SPLIT AND DRUM ROOM SUPERVISOR - 03/27/2024 3:13 PM SPLIT AND DRUM ROOM SUPERVISOR Hospital Encounter [address] [phone] Basil Adhikari MD Iliac aneurysm (CMS/HCC) (HCC) (Primary Dx); Aortic root aneurysm; S/P AVR Discharge Disposition: Discharge to an Rehab facility 03/15/2024 11:50 AM SPLIT AND DRUM ROOM SUPERVISOR Lab [facility] Outpatient Lab [address] [place] [phone] Aneurysm of ascending aorta without rupture (HCC); Pre-op evaluation 03/15/2024 10:00 AM SPLIT AND DRUM ROOM SUPERVISOR Office Visit Cardiovascular and Thoracic Surgery [address] [place] [address] [place] [phone] Basil Adhikari MD Pre-op evaluation (Primary Dx); Aneurysm of ascending aorta without rupture (HCC) 03/11/2024 Telephone Cardiovascular and Thoracic Surgery [address] [place] [address] [place] [phone] Basil Adhikari MD SUPERVISOR TYPE BAR AND SEGMENT appt 02/11/2024 Orders Only [facility] Cardiac Catheterization Lab [address] [place] [address] Fredrick Peña MD Iliac aneurysm (CMS/HCC) (HCC) (Primary Dx) 02/05/2024 9:00 AM SPLIT AND DRUM ROOM SUPERVISOR - 02/05/2024 11:59 PM SPLIT AND DRUM ROOM SUPERVISOR Hospital Encounter [facility] Neurology Testing [id number] [place] [address] Numbness and tingling of upper extremity [R20.0, R20.2] (Primary Dx); Hereditary and idiopathic neuropathy Discharge Disposition: Discharge to home or self care 01/27/2024 3:30 PM SPLIT AND DRUM ROOM SUPERVISOR Office Visit [facility] Surgery [address] [place] [address] [address] [place] [address] Devaughn Clement MD Aneurysm of ascending aorta without rupture (HCC) (Primary Dx) 01/14/2024 12:05 AM CDT - 01/14/2024 11:59 PM CDT Hospital Encounter [facility] - Imaging [phone] Discharge Disposition: Discharge to home or self care 01/14/2024 - 01/14/2024 11:59 PM CDT Hospital Encounter [facility] - Imaging [phone] Discharge Disposition: Discharge to home or self care 01/13/2024 12:30 PM CDT Lab [address] [phone] Hereditary and idiopathic neuropathy 01/13/2024 11:15 AM CDT Office Visit [facility] [id number] [place] [address] [address] [place] [address] Earl Bran II, MD Benign paroxysmal positional vertigo, unspecified laterality (Primary Dx); Hereditary and idiopathic neuropathy from Last 3 Months Immunizations Name Administration Dates Next Due Influenza, Unspecified 01/16/2024 Moderna SARS-CoV-2 Monovalent Vaccination (12+ Y RS) 05/30/2020,04/18/2020 Surgical History Surgery Date Site/Laterality Comments THYROIDECTOMY Thyroidectomy ROTATOR CUFF REPAIR 03/17/2003 - 03/16/2004 Left THYROIDECTOMY, PARTIAL 03/17/1978 - 03/16/1979 SHOULDER ARTHROPLASTY 03/17/2014 - 03/16/2015 Left ORIF WRIST FRACTURE Bilateral MOHS SURGERY 03/17/2015 - 03/16/2016 TONSILLECTOMY 03/17/1943 - 03/16/1944 PROSTATE SURGERY 03/17/2002 - 03/16/2003 for BPH COLONOSCOPY POLYPECTOMY SHOULDER ARTHROSCOPY Right Medical History Medical History Date Comments Hx Other Medical shoulder surger y; Comments: [facility] 12/03/2013 - Depression Depression Hx Other Medical right wrist gabi mike; Comments: [facility] 12/03/2013 - GERD (gastroesophageal reflux disease) Thyroid disease Neuropathy (CMS/HCC) GARCÍA on CPAP OA (osteoarthritis) History of pulmonary embolus (PE) Aortic aneurysm (HCC) ascending BPH (benign prostatic hyperplasia) Pulmonary emboli (HCC) 2016 Chronic constipation Colon polyp Hypothyroidism Venous thromboembolism Glaucoma 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) Family History Medical History Relation Name Comments Heart attack Brother No Known Problems Father in pl ane crash in 1944 Coronary artery disease Mother Rafal nary artery disease; Diabetes Mother Stroke Mother Family history of cerebrovascular accident (CVA) - (Added by TW Conv) Relation Name Status Comments Brother Father Mother Social History Tobacco Use Types Packs/Day Years Used Date Smoking Tobacco: Former Cigarettes 1 12 0 1962 - 1974 Smokeless Tobacco: Never Tobacco Cessation:Counseling Given: Not Answered Alcohol Use Standard Drinks/Week Comments Yes 3 (1 standard drink = 0.6 oz pur e alcohol) 2x a day [facility] Utilities Answer Date Recorded In the past 12 months has [employer] electric, gas, oil, or water [employer] threatened to shut off services in your home? No 04/06/2024 Social Connection and Isolat ion Panel [NHANES] Answer Date Recorded In a typical week, how many times do you talk on the phone with family, friends, or neighbors? More than three times a week 04/06/2024 How often do you get togethe r with friends or relatives? More than three times a week 04/06/2024 How often do you attend chur ch or hinduism services? Never 04/06/2024 Do you belong to any clubs o r organizations such as christian groups, unions, fraternal or athletic groups, or school groups? No 04/06/2024 How often do you attend meet ings of the clubs or organizations you belong to? Never 04/06/2024 Are you , , di vorced, , never , or living with a partner? 04/06/2024 AUDIT-C Answer Date Recorded Q1: How often do you have a drink containing alc ohol? Monthly or less 03/15/2024 Q2: How many drinks containi ng alcohol do you have on a typical day when you are drinking? 1 or 2 03/15/2024 Q3: How often do you have si x or more drinks on one occasion? Never 03/15/2024 Overall Financial Resource Strain (CARDIA) Answe r Date Recorded How hard is it for you to pa y for the very basics like food, housing, medical care, and heating? Not very hard 04/06/2024 Hunger Vital Sign Answer Date Recorded Within the past 12 months, y ou worried that your food would run out before you got the money to buy more. Never true 04/06/19 25 Within the past 12 months, t he food you bought just didn't last and you didn't have money to get more. Never true 04/06/2024 PRAPARE - Transportation Answer Date Re corded In the past 12 months, has l ack of transportation kept you from medical appointments or from getting medications? No 03/18 In the past 12 months, has l ack of transportation kept you from meetings, work, or from getting things needed for daily living? No 04/06/2024 Housing Stability Vital Sign Answer Martin e Recorded In the last 12 months, was t here a time when you were not able to pay the mortgage or rent on time? No 04/06/2024 In the past 12 months, how m any times have you moved where you were living? 0 04/06/2024 At any time in the past 12 m [facility], were you homeless or living in a retirement (including now)? No 04/06/2024 Personal Safety Answer Date Recorded Have you ever been in or are you currently in a harmful physical or emotional relationship or is someone making you feel afraid or unsafe? Denies 04/03/2024 Sex and Gender Information Value Date Recorded Sex Assigned at Not on file Legal Sex Male 12:56 AM SPLIT AND DRUM ROOM SUPERVISOR Gender Identity Not on file Sexual Orientation Straight 10/21/2019 9: 52 AM CDT Obstetrics History Last Filed Vital Signs Vital Sign Reading Time Taken Comments Blood Pressure 102/69 04/08/2024 7:56 AM SPLIT AND DRUM ROOM SUPERVISOR Pulse 81 04/08/2024 7:56 AM SPLIT AND DRUM ROOM SUPERVISOR Temperature 36.9 ??C (98.5 ??F) 04/08/2024 7:56 AM CS T Respiratory Rate 18 04/08/2024 7:56 AM SPLIT AND DRUM ROOM SUPERVISOR Oxygen Saturation 92% 04/08/2024 7:56 AM SPLIT AND DRUM ROOM SUPERVISOR Inhaled Oxygen Concentration - - Weight 67.9 kg (149 lb 11.1 oz) 025 12:40 PM SPLIT AND DRUM ROOM SUPERVISOR Height 172.7 cm (5' 8 ) 04/03/2024 10:2 0 AM SPLIT AND DRUM ROOM SUPERVISOR Body Mass Index 22.76 04/03/2024 10:20 AM SPLIT AND DRUM ROOM SUPERVISOR Plan of Treatment Health Maintenance Due Date Last Done Comments Depression Screening 1940 Hepatitis B Screening 07/30/1957 Zoster Vaccine (1 of 2) 07/30/1989 Pneumococcal vaccine 65+ (1 of 1 - PCV) 07/30/2004 Well Visit 65+ 07/30/2004 DTaP/Tdap/Td Vaccine (2 - Td or Tdap) 03/31/2022 Covid-19 Vaccine (3 - season) 2023, 04/18/2020 Fall Risk Assessment 04/07/2025 04/07/2024, 01/15/20 Influenza Vaccine Completed 01/16/2024, , 12/14/2012 Medical Devices Implanted Type Area Night Manager Device Identifier Shelf Expiration Date Model / Serial / Lot Leyva Lifesciences Konect Resilia Aortic Valved Conduit 27mm [id number] - [id number] - [id number] Implanted:Qty: 1 on 03/18/2024 by Basil Adhikari MD at [facility] Prosthetic Valve N/A: Aortic Valve Leyva Lif[employer]iences 01/06/2027 [id number] / [id number] / Teleflex [employer] Inc 18f Manta Vascular Closure Device 2115 - S0 - [id number] Implanted:Qty: 1 on 03/22/2024 by Basil Adhikari MD at [facility] Vascular Closure Device Teleflex Medical Inc 01/06/2025 2115 / 0 / [id number] Cement Bone Cmw 2 20 Gm Fast Set Sterile - [id number] Implanted:Qty: 1 on 2017 by Brennon Davis MD at [facility] Right: Shoulder Depuy Orthopaedics Inc 10/15/2019 3322-02 0 / / [id number] Component Glenoid Comprehensive Regenerex Titanium Clay Porous Shoulder Modular Hybrid Post - [id number] Implanted:Qty: 1 on 2017 by Brennon Davis MD at [facility] Right: Shoulder Kavita [employer] Inc [id number] 01/21/2027 PT-1139 50 / / [id number] Component Glenoid Comprehensive Hybrid Large H4 Mm Shoulder Base Modular - [id number] Implanted:Qty: 1 on 2017 by Brennon Davis MD at [facility] Right: Shoulder Kavita [employer] Inc [id number] 03/23/2022 [id number] / / [id number] Stem Humeral Comprehensive Porous Mini L83 Mm Od15 Mm Shoulder Reverse System - [id number] Implanted:Qty: 1 on 2017 by Brennon Davis MD at [facility] Right: Shoulder [employer]avita [employer] Inc [id number] 04/10/2027 [id number] / / [id number] Head Humeral Bio-Modular [place] 4 Mm Offset H22 Mm Od54 Mm Shoulder Sterile - [id number] Implanted:Qty: 1 on 2017 by Brennon Davis MD at [facility] Right: Shoulder Kavita [employer] Inc 08/16/2019 [id number] / / [id number] Cryolife Inc Graft Biological Cardiovascular Photofix 6x8cm Acellular Dermis Pfp 6x8 - [id number] Implanted:Qty: 1 on 03/18/2024 by Basil Adhikari MD at [facility] N/A: Aorta Cryolife Inc 10/24/2025 PFP 6X8 / / [id number] Arthrex Inc Device Closure Tigertape Sternal Cerclage Blunt Needle Ar-7289t - [id number] Implanted:Qty: 1 on 03/18/2024 by Basil Adhikari MD at [facility] N/A: Sternum Arthrex Inc 12/14/2028 AR-7289 T / / [id number] Arthrex Inc Device Closure Tigertape Sternal Cerclage Blunt Needle Ar-7289t - [id number] Implanted:Qty: 1 on 03/18/2024 by Basil Adhikari MD at [facility] N/A: Sternum Arthrex Inc 12/14/2028 AR-7289 T / / [id number] Estrada Vascular Plug Occluder Cvasc Embl Self Expanding Amplatzer [id number] Nitinol 9-Avp2-014 - S0 - [id number] Implanted:Qty: 1 on 03/22/2024 by Basil Adhikari MD at [facility] Left: Internal Iliac (Hypogastr ic) Artery Estrada Vascular [id number] 05/14/2025 9-AVP2- 014 / 0 / [id number] Wl [employer] Excluder 18mm 14.5-16.5mm 11.5cm Stent Abrasion Resistant [id number] - [id number] - [id number] Implanted:Qty: 1 on 03/22/2024 by Basil Adhikari MD at [facility] Left: External Iliac Artery Wl [employer] [id number] 11/17/2026 [id number] 00 / [id number] / Wl [employer] Stent Graft Thoracic Conformable Tag [id number] - S0 - [id number] Implanted:Qty: 1 on 03/22/2024 by Basil Adhikari MD at [facility] Left: External Iliac Artery Wl [employer] [id number] 08/14/2026 [id number] 10 / 0 / Amplatzer Electrical Engineering Teacher Lisa Amplatzer 14mm 100cm 8mm 1 Layer Wire Mesh 1 Lobe Design Optimal 9-Plug-014 - S0 - [id number] Implanted:Qty: 1 on 03/22/2024 by Basil Adhikari MD at [facility] Left: Internal Iliac (Hypogastr ic) Artery [employer] 03/16/2028 9-PLUG- 014 / 0 / [id number] Procedures * The patient is currently admitted. The information in this section might not be complete until the patient is discharged. Procedure Name Priority Date/Time Associated Diagnosis Comments EGFR Routine 04/08/2024 12:52 AM SPLIT AND DRUM ROOM SUPERVISOR DIFFERENTIAL AUTO Routine 04/08/2024 12: 52 AM SPLIT AND DRUM ROOM SUPERVISOR MAGNESIUM Routine 04/08/2024 12:52 AM SPLIT AND DRUM ROOM SUPERVISOR RENAL FUNCTION PANEL Routine 04/08/2024 12:52 AM SPLIT AND DRUM ROOM SUPERVISOR CBC WITH AUTO DIFFERENTIAL Routine 04/08/2024 12:52 AM SPLIT AND DRUM ROOM SUPERVISOR EGFR Routine 04/07/2024 12:51 AM SPL[employer] AND DRUM ROOM SUPERVISOR DIFFERENTIAL AUTO Routine 04/07/2024 12: 51 AM SPL[employer] AND DRUM ROOM SUPERVISOR RENAL FUNCTION PANEL Routine 04/07/2024 12:51 AM SPLIT AND DRUM ROOM SUPERVISOR CBC WITH AUTO DIFFERENTIAL Routine 04/07/2024 12:51 AM SPLIT AND DRUM ROOM SUPERVISOR HEMOGLOBIN AND HEMATOCRIT Timed 04/06/2024 5:18 PM SPLIT AND DRUM ROOM SUPERVISOR XR CHEST 1 VIEW IP Routine 04/06/2024 5:06 AM SPLIT AND DRUM ROOM SUPERVISOR ADD ON LAB TEST Add-On 04/06/2024 3:29 AM SPLIT AND DRUM ROOM SUPERVISOR RENAL FUNCTION PANEL Routine 04/06/2024 2:29 AM SPLIT AND DRUM ROOM SUPERVISOR EGFR Routine 04/06/2024 2:29 AM SPL[employer] AND DRUM ROOM SUPERVISOR DIFFERENTIAL AUTO Routine 04/06/2024 2:2 9 AM SPL[employer] AND DRUM ROOM SUPERVISOR CBC WITH AUTO DIFFERENTIAL Routine 04/06/2024 2:29 AM SPL[employer] AND DRUM ROOM SUPERVISOR PROCALCITONIN Routine 04/06/2024 2:29 AM SPLIT AND DRUM ROOM SUPERVISOR BLOOD GAS, VENOUS Routine 04/06/2024 2:1 5 AM SPLIT AND DRUM ROOM SUPERVISOR POCT GLUCOSE DEVICE Routine 04/05/2024 1 2:05 PM SPLIT AND DRUM ROOM SUPERVISOR XR KUB ED Urgent/IP Urgent 04/05/2024 10:23 AM SPLIT AND DRUM ROOM SUPERVISOR FL MODIFIED BARIUM SWALLOW W VIDEO IP Routine 04/05/2024 9:52 AM SPLIT AND DRUM ROOM SUPERVISOR POCT GLUCOSE DEVICE Routine 04/05/2024 4 :30 AM SPLIT AND DRUM ROOM SUPERVISOR MAGNESIUM Routine 04/05/2024 3:39 AM SPL[employer] AND DRUM ROOM SUPERVISOR EGFR Routine 04/05/2024 3:39 AM SPL[employer] AND DRUM ROOM SUPERVISOR CBC WITHOUT DIFFERENTIAL Routine 04/05/2024 3:39 AM SPLIT AND DRUM ROOM SUPERVISOR RENAL FUNCTION PANEL Routine 04/05/2024 3:39 AM SPL[employer] AND DRUM ROOM SUPERVISOR EGFR STAT 04/04/2024 4:18 PM SPLIT AND DRUM ROOM SUPERVISOR RENAL FUNCTION PANEL STAT 04/04/2024 4:18 PM SPLIT AND DRUM ROOM SUPERVISOR OSMOLALITY, URINE Routine 04/04/2024 6:1 1 AM SPLIT AND DRUM ROOM SUPERVISOR CREATININE, URINE, RANDOM Routine 04/04/2024 6:11 AM SPLIT AND DRUM ROOM SUPERVISOR SODIUM, URINE, RANDOM Routine 04/04/2024 6:11 AM SPL[employer] AND DRUM ROOM SUPERVISOR EGFR Routine 04/04/2024 2:56 AM SPL[employer] AND DRUM ROOM SUPERVISOR RENAL FUNCTION PANEL Routine 04/04/2024 2:56 AM SPLIT AND DRUM ROOM SUPERVISOR TSH Routine 04/04/2024 2:56 AM SPL[employer] AND DRUM ROOM SUPERVISOR CBC WITHOUT DIFFERENTIAL Routine 04/04/2024 2:56 AM SPLIT AND DRUM ROOM SUPERVISOR EGFR Timed 04/03/2024 5:59 PM SPLIT AND DRUM ROOM SUPERVISOR RENAL FUNCTION PANEL Timed 04/03/2024 5:59 PM SPLIT AND DRUM ROOM SUPERVISOR MRSA ONLY (STAPHYLOCOCCUS AUREUS) PCR Routine 04/03/2024 3:55 PM SPLIT AND DRUM ROOM SUPERVISOR AEROBIC CULTURE AND GRAM STAIN Routine 04/03/2024 3:55 PM SPLIT AND DRUM ROOM SUPERVISOR ADD ON LAB TEST Add-On 04/03/2024 2:48 PM SPLIT AND DRUM ROOM SUPERVISOR ADD ON LAB TEST Add-On 04/03/2024 2:48 PM SPLIT AND DRUM ROOM SUPERVISOR ADD ON LAB TEST Add-On 04/03/2024 2:48 PM SPLIT AND DRUM ROOM SUPERVISOR ADD ON LAB TEST Add-On 04/03/2024 2:48 PM SPLIT AND DRUM ROOM SUPERVISOR TRANSTHORACIC ECHO (TTE) COMPLETE W DOPPLER/CF WO CONTRAST STAT 04/03/2024 2:46 PM SPLIT AND DRUM ROOM SUPERVISOR URIC ACID STAT 04/03/2024 11:06 AM SPLIT AND DRUM ROOM SUPERVISOR T4, FREE STAT 04/03/2024 11:06 AM SPLIT AND DRUM ROOM SUPERVISOR THYROID FUNCTION CASCADE STAT 04/03/2024 11:06 AM SPLIT AND DRUM ROOM SUPERVISOR CORTISOL STAT 04/03/2024 11:06 AM SPLIT AND DRUM ROOM SUPERVISOR OSMOLALITY, URINE Routine 04/03/2024 11: 06 AM SPLIT AND DRUM ROOM SUPERVISOR SODIUM, URINE, RANDOM Routine 04/03/2024 11:06 AM SPL[employer] AND DRUM ROOM SUPERVISOR EGFR STAT 04/03/2024 11:06 AM SPLIT AND DRUM ROOM SUPERVISOR URINALYSIS, MICROSCOPIC ONLY Routine 04/03/2024 11:06 AM SPLIT AND DRUM ROOM SUPERVISOR BILIRUBIN, DIRECT STAT 04/03/2024 11: 06 AM SPL[employer] AND DRUM ROOM SUPERVISOR CBC WITHOUT DIFFERENTIAL STAT 04/03/2024 11:06 AM SPLIT AND DRUM ROOM SUPERVISOR PROTIME-INR STAT 04/03/2024 11:06 AM SPLIT AND DRUM ROOM SUPERVISOR APTT STAT 04/03/2024 11:06 AM SPLIT AND DRUM ROOM SUPERVISOR PRO B-TYPE NATRIURETIC PEPTIDE STAT 04/03/2024 11:06 AM SPLIT AND DRUM ROOM SUPERVISOR LACTATE STAT 04/03/2024 11:06 AM SPL[employer] AND DRUM ROOM SUPERVISOR PHOSPHORUS STAT 04/03/2024 11:06 AM SPL[employer] AND DRUM ROOM SUPERVISOR MAGNESIUM STAT 04/03/2024 11:06 AM SPL[employer] AND DRUM ROOM SUPERVISOR COMPREHENSIVE METABOLIC PANEL STAT 04/03/2024 11:06 AM SPL[employer] AND DRUM ROOM SUPERVISOR TYPE AND SCREEN STAT 04/03/2024 11:06 AM SPL[employer] AND DRUM ROOM SUPERVISOR STREP PNEUMONIAE AG, URINE Routine 04/03/2024 11:06 AM SPLIT AND DRUM ROOM SUPERVISOR LEGIONELLA ANTIGEN, URINE Routine 04/03/2024 11:06 AM [employer] SUPERVISOR URINALYSIS AND REFLEX TO MICROSCOPIC AND CULTURE Routine 04/03/2024 11:06 AM [employer] SUPERVISOR XR CHEST 1 VIEW Critical/Life-T hreatening 04/03/2024 10:23 AM [employer] SUPERVISOR XR CHEST 1 VIEW IP Routine 03/27/2024 6:38 AM [employer] SUPERVISOR EGFR Routine 03/27/2024 12:27 AM [employer] SUPERVISOR MAGNESIUM Routine 03/27/2024 12:27 AM [employer] SUPERVISOR RENAL FUNCTION PANEL Routine 03/27/2024 12:27 AM [employer] SUPERVISOR CBC WITHOUT DIFFERENTIAL Routine 03/27/2024 12:27 AM [employer] SUPERVISOR URINALYSIS, MICROSCOPIC ONLY Routine 03/26/2024 11:53 AM [employer] SUPERVISOR URINALYSIS AND REFLEX TO MICROSCOPIC AND CULTURE Routine 03/26/2024 11:53 AM [employer] SUPERVISOR XR CHEST 1 VIEW IP Routine 03/26/2024 6:06 AM [employer] SUPERVISOR EGFR Routine 03/26/2024 12:27 AM [employer] SUPERVISOR MAGNESIUM Routine 03/26/2024 12:27 AM [employer] SUPERVISOR RENAL FUNCTION PANEL Routine 03/26/2024 12:27 AM [employer] SUPERVISOR CBC WITHOUT DIFFERENTIAL Routine 03/26/2024 12:27 AM [employer] SUPERVISOR XR CHEST 1 VIEW IP Routine 03/25/2024 5:49 AM [employer] SUPERVISOR EGFR Routine 03/25/2024 1:33 AM [employer] SUPERVISOR MAGNESIUM Routine 03/25/2024 1:33 AM [employer] SUPERVISOR RENAL FUNCTION PANEL Routine 03/25/2024 1:33 AM [employer] SUPERVISOR CBC WITHOUT DIFFERENTIAL Routine 03/25/2024 1:33 AM [employer] SUPERVISOR TYPE AND SCREEN Timed 03/25/2024 1:33 AM [employer] SUPERVISOR XR CHEST 1 VIEW IP Routine 03/24/2024 8:05 AM [employer] SUPERVISOR EGFR Routine 03/24/2024 2:16 AM [employer] RO[employer] SUPERVISOR MAGNESIUM Routine 03/24/2024 2:16 AM [employer] RO[employer] SUPERVISOR RENAL FUNCTION PANEL Routine 03/24/2024 2:16 AM [employer] SUPERVISOR CBC WITHOUT DIFFERENTIAL Routine 03/24/2024 2:16 AM [employer] SUPERVISOR XR CHEST 1 VIEW IP Routine 03/23/2024 6:41 AM [employer] SUPERVISOR CRITICAL CARE Routine 03/23/2024 6:36 AM [employer] SUPERVISOR Iliac aneurysm (CMS/HCC) (HCC) EGFR Routine 03/23/2024 1:16 AM [employer] SUPERVISOR CALCIUM, IONIZED Routine 03/23/2024 1:16 AM [employer] SUPERVISOR PROTIME-INR Routine 03/23/2024 1:16 AM [employer] RO[employer] SUPERVISOR MAGNESIUM Routine 03/23/2024 1:16 AM [employer] RO[employer] SUPERVISOR RENAL FUNCTION PANEL Routine 03/23/2024 1:16 AM [employer] SUPERVISOR CBC WITHOUT DIFFERENTIAL Routine 03/23/2024 1:16 AM [employer] RO[employer] SUPERVISOR CRITICAL CARE Routine 03/22/2024 8:16 PM [employer] SUPERVISOR 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 Routine 03/22/2024 6 :38 PM [employer] SUPERVISOR EGFR STAT 03/22/2024 6:30 PM [employer] SUPERVISOR CALCIUM, IONIZED STAT 03/22/2024 6:30 PM [employer] RO[employer] SUPERVISOR MAGNESIUM STAT 03/22/2024 6:30 PM [employer] SUPERVISOR RENAL FUNCTION PANEL STAT 03/22/2024 6:30 PM [employer] RO[employer] SUPERVISOR PROTIME-INR STAT 03/22/2024 6:30 PM [employer] RO[employer] SUPERVISOR APTT STAT 03/22/2024 6:30 PM [employer] SUPERVISOR CBC WITHOUT DIFFERENTIAL STAT 03/22/2024 6:30 PM [employer] SUPERVISOR CRITICAL CARE Routine 03/22/2024 5:43 PM [employer] RO[employer] SUPERVISOR Iliac aneurysm (CMS/HCC) (HCC) REVAS ENDOVASILIAC W STNT [id number] Routine 03/22/2024 4:52 PM [employer] SUPERVISOR Iliac aneurysm (CMS/HCC) (HCC) POCT ACTIVATED CLOTTING TIME, HIGH RANGE Routine 03/22/2024 4:51 PM [employer] SUPERVISOR POC BLOOD GAS AND CHEMISTRIES, VENOUS Routine 03/22/2024 4:29 PM [employer] RO[employer] SUPERVISOR POCT ACTIVATED CLOTTING TIME, HIGH RANGE Routine 03/22/2024 4:10 PM [employer] RO[employer] SUPERVISOR POCT ACTIVATED CLOTTING TIME, HIGH RANGE Routine 03/22/2024 4:00 PM [employer] RO[employer] SUPERVISOR POCT ACTIVATED CLOTTING TIME, HIGH RANGE Routine 03/22/2024 3:56 PM [employer] RO[employer] SUPERVISOR POCT ACTIVATED CLOTTING TIME, HIGH RANGE Routine 03/22/2024 3:28 PM [employer] RO[employer] SUPERVISOR POCT ACTIVATED CLOTTING TIME, LOW RANGE Routine 03/22/2024 3:21 PM [employer] RO[employer] SUPERVISOR [place] AN PROCEDURE PLACEHOLDER Routine 03/22/2024 3:08 PM [employer] ROOM SUPERVISOR NY AN ELECTIVE ENDOTRACHEAL AIRWAY Routine 03/22/2024 3:08 PM [employer] RO[employer] SUPERVISOR PREPARE RBC STAT 03/22/2024 2:42 PM [employer] RO[employer] SUPERVISOR XR CHEST 1 VIEW IP Routine 03/22/2024 7:26 AM [employer] SUPERVISOR EGFR Routine 03/22/2024 1:34 AM [employer] RO[employer] SUPERVISOR MAGNESIUM Routine 03/22/2024 1:34 AM [employer] RO[employer] SUPERVISOR RENAL FUNCTION PANEL Routine 03/22/2024 1:34 AM [employer] SUPERVISOR CBC WITHOUT DIFFERENTIAL Routine 03/22/2024 1:34 AM [employer] SUPERVISOR TYPE AND SCREEN Timed 03/22/2024 1:34 AM [employer] RO[employer] SUPERVISOR APTT STAT 03/21/2024 8:12 PM [employer] RO[employer] SUPERVISOR APTT STAT 03/21/2024 12:40 PM [employer] RO[employer] SUPERVISOR APTT Timed 03/21/2024 10:35 AM [employer] SUPERVISOR XR CHEST 1 VIEW IP Routine 03/21/2024 7:43 AM [employer] RO[employer] SUPERVISOR APTT STAT 03/21/2024 2:27 AM [employer] SUPERVISOR EGFR Routine 03/21/2024 2:24 AM [employer] RO[employer] SUPERVISOR MAGNESIUM Routine 03/21/2024 2:24 AM [employer] SUPERVISOR RENAL FUNCTION PANEL Routine 03/21/2024 2:24 AM [employer] SUPERVISOR CBC WITHOUT DIFFERENTIAL Routine 03/21/2024 2:24 AM [employer] SUPERVISOR APTT STAT 03/20/2024 4:57 PM [employer] SUPERVISOR APTT STAT 03/20/2024 9:27 AM [employer] SUPERVISOR PROTIME-INR STAT 03/20/2024 9:27 AM [employer] SUPERVISOR XR CHEST 1 VIEW IP Routine 03/20/2024 9:17 AM [employer] SUPERVISOR EGFR Routine 03/20/2024 1:03 AM [employer] SUPERVISOR MAGNESIUM Routine 03/20/2024 1:03 AM [employer] RO[employer] SUPERVISOR CALCIUM, IONIZED Routine 03/20/2024 1:03 AM [employer] RO[employer] SUPERVISOR RENAL FUNCTION PANEL Routine 03/20/2024 1:03 AM [employer] SUPERVISOR CBC WITHOUT DIFFERENTIAL Routine 03/20/2024 1:03 AM [employer] SUPERVISOR PREPARE RBC STAT 03/19/2024 4:56 PM [employer] RO[employer] SUPERVISOR CTA ABDOMEN PELVIS W WO CONTRAST IP Routine 03/19/2024 9:06 AM [employer] SUPERVISOR POTASSIUM LEVEL STAT 03/19/2024 6:48 AM [employer] RO[employer] SUPERVISOR CRITICAL CARE Routine 03/19/2024 6:40 AM [employer] RO[employer] SUPERVISOR 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 IP Routine 03/19/2024 6:37 AM [employer] SUPERVISOR POCT GLUCOSE DEVICE Routine 03/19/2024 6 :01 AM [employer] SUPERVISOR POCT GLUCOSE DEVICE Routine 03/19/2024 2 :13 AM [employer] SUPERVISOR POCT GLUCOSE DEVICE Routine 03/19/2024 1 2:18 AM [employer] SUPERVISOR EGFR Routine 03/19/2024 12:04 AM [employer] RO[employer] SUPERVISOR MAGNESIUM Routine 03/19/2024 12:04 AM [employer] RO[employer] SUPERVISOR CALCIUM, IONIZED Routine 03/19/2024 12:0 4 AM [employer] RO[employer] SUPERVISOR RENAL FUNCTION PANEL Routine 03/19/2024 12:04 AM [employer] SUPERVISOR CBC WITHOUT DIFFERENTIAL Routine 03/19/2024 12:04 AM [employer] SUPERVISOR POCT GLUCOSE DEVICE Routine 03/18/2024 9 :02 PM [employer] SUPERVISOR EXTUBATION Routine 03/18/2024 7:38 PM [employer] SUPERVISOR BLOOD GAS, ARTERIAL STAT 03/18/2024 7 :23 PM [employer] RO[employer] SUPERVISOR POCT GLUCOSE DEVICE Routine 03/18/2024 7 :12 PM [employer] RO[employer] SUPERVISOR CRITICAL CARE Routine 03/18/2024 6:39 PM [employer] RO[employer] SUPERVISOR 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 Routine 03/18/2024 6 :07 PM [employer] SUPERVISOR XR CHEST 1 VIEW ED Urgent/IP Urgent 03/18/2024 4:41 PM [employer] SUPERVISOR POCT GLUCOSE DEVICE Routine 03/18/2024 4 :27 PM [employer] RO[employer] SUPERVISOR CRITICAL CARE Routine 03/18/2024 4:19 PM [employer] RO[employer] SUPERVISOR EGFR STAT 03/18/2024 4:17 PM [employer] RO[employer] SUPERVISOR APTT STAT 03/18/2024 4:17 PM [employer] SUPERVISOR PROTIME-INR STAT 03/18/2024 4:17 PM [employer] SUPERVISOR CBC WITHOUT DIFFERENTIAL STAT 03/18/2024 4:17 PM [employer] RO[employer] SUPERVISOR BLOOD GAS, ARTERIAL STAT 03/18/2024 4 :17 PM [employer] RO[employer] SUPERVISOR CALCIUM, IONIZED STAT 03/18/2024 4:17 PM [employer] ROOM SUPERVISOR MAGNESIUM STAT 03/18/2024 4:17 PM [employer] RO[employer] SUPERVISOR BASIC METABOLIC PANEL STAT 03/18/2024 4:17 PM [employer] RO[employer] SUPERVISOR PHOSPHORUS STAT 03/18/2024 4:17 PM [employer] RO[employer] SUPERVISOR PROTIME-INR STAT 03/18/2024 3:38 PM [employer] RO[employer] SUPERVISOR FIBRINOGEN STAT 03/18/2024 3:38 PM [employer] RO[employer] SUPERVISOR CBC WITHOUT DIFFERENTIAL STAT 03/18/2024 3:38 PM [employer] RO[employer] SUPERVISOR APTT STAT 03/18/2024 3:38 PM [employer] RO[employer] SUPERVISOR POC BLOOD GAS AND CHEMISTRIES, ARTERIAL Routine 03/18/2024 3:35 PM [employer] RO[employer] SUPERVISOR POCT ACTIVATED CLOTTING TIME, HIGH RANGE Routine 03/18/2024 3:35 PM [employer] RO[employer] SUPERVISOR POC BLOOD GAS AND CHEMISTRIES, ARTERIAL Routine 03/18/2024 2:41 PM [employer] RO[employer] SUPERVISOR POCT ACTIVATED CLOTTING TIME, HIGH RANGE Routine 03/18/2024 2:40 PM [employer] RO[employer] SUPERVISOR POC BLOOD GAS AND CHEMISTRIES, VENOUS Routine 03/18/2024 2:30 PM [employer] RO[employer] SUPERVISOR SURGICAL PATHOLOGY Routine 03/18/2024 2: 09 PM [employer] SUPERVISOR Aortic root aneurysm POC BLOOD GAS AND CHEMISTRIES, ARTERIAL Routine 03/18/2024 2:08 PM [employer] RO[employer] SUPERVISOR POCT ACTIVATED CLOTTING TIME, HIGH RANGE Routine 03/18/2024 2:08 PM [employer] ROOM SUPERVISOR POC BLOOD GAS AND CHEMISTRIES, ARTERIAL Routine 03/18/2024 1:50 PM [employer] RO[employer] SUPERVISOR POCT ACTIVATED CLOTTING TIME, HIGH RANGE Routine 03/18/2024 1:49 PM [employer] ROOM SUPERVISOR [place] AN PROCEDURE PLACEHOLDER Routine 03/18/2024 1:41 PM [employer] RO[employer] SUPERVISOR PULMONARY ARTERY CATH Routine 03/18/2024 1:41 PM [employer] RO[employer] SUPERVISOR BW AN SHEATH INTRODUCER PERFORMABLE Routine 03/18/2024 1:41 PM [employer] ROOM SUPERVISOR [place] AN PROCEDURE PLACEHOLDER Routine 03/18/2024 1:40 PM [employer] ROOM SUPERVISOR [place] AN CENTRAL LINE QUADRUPLE LUMEN Routine 03/18/2024 1:40 PM [employer] ROOM SUPERVISOR [place] AN PROCEDURE PLACEHOLDER Routine 03/18/2024 1:39 PM [employer] ROOM SUPERVISOR [place] AN PROCEDURE PLACEHOLDER Routine 03/18/2024 1:38 PM [employer] ROOM SUPERVISOR [place] AN PROCEDURE PLACEHOLDER Routine 03/18/2024 1:37 PM [employer] ROOM SUPERVISOR [place] AN ELECTIVE ENDOTRACHEAL AIRWAY Routine 03/18/2024 1:37 PM [employer] ROOM SUPERVISOR [place] AN PROCEDURE PLACEHOLDER Routine 03/18/2024 1:29 PM [employer] RO[employer] SUPERVISOR POCT ACTIVATED CLOTTING TIME, HIGH RANGE Routine 03/18/2024 1:11 PM [employer] RO[employer] SUPERVISOR REPLACEMENT AORTIC ROOT 03/18/2024 12:46 PM [employer] RO[employer] SUPERVISOR Aortic root aneurysm LIDIA ADD-ON FOR OR Routine 03/18/2024 12: 05 PM [employer] RO[employer] SUPERVISOR B CHECK SAMPLE STAT 03/18/2024 9:54 AM [employer] SUPERVISOR ECG 12-LEAD Routine 03/18/2024 9:34 AM [employer] RO[employer] SUPERVISOR PREPARE RBC STAT 03/18/2024 9:12 AM [employer] RO[employer] SUPERVISOR DIFFERENTIAL AUTO Routine 03/15/2024 12: 29 PM [employer] SUPERVISOR Aneurysm of ascending aorta without rupture (HCC) Pre-op evaluation HEMOGLOBIN A1C Routine 03/15/2024 12:29 PM [employer] SUPERVISOR Aneurysm of ascending aorta without rupture (HCC) Pre-op evaluation CBC WITH AUTO DIFFERENTIAL Routine 03/15/2024 12:29 PM [employer] SUPERVISOR Aneurysm of ascending aorta without rupture (HCC) Pre-op evaluation TYPE AND SCREEN Routine 03/15/2024 12:29 PM [employer] SUPERVISOR Aneurysm of ascending aorta without rupture (HCC) Pre-op evaluation EGFR Routine 03/15/2024 12:28 PM [employer] SUPERVISOR Aneurysm of ascending aorta without rupture (HCC) Pre-op evaluation COMPREHENSIVE METABOLIC PANEL Routine 03/15/2024 12:28 PM [employer] SUPERVISOR Aneurysm of ascending aorta without rupture (HCC) Pre-op evaluation EMG/NCV Routine 02/05/2024 11:10 AM [employer] RO[employer] SUPERVISOR Hereditary and idiopathic neuropathy XR TRANSFER OF OUTSIDE FILMS Routine 01/14/2024 12:05 AM CDT XR TRANSFER OF OUTSIDE FILMS Routine 01/14/2024 12:00 AM CDT NEUROMUSCULAR SPECIMEN TRACKING OUTPATIENT Routine 01/13/2024 12:27 PM CDT Hereditary and idiopathic neuropathy NEUROMUSCULAR TESTING Routine 01/13/2024 12:00 AM CDT Hereditary and idiopathic neuropathy from Last 3 Months Results * eGFR (04/08/2024 12:52 AM [employer] SUPERVISOR) eGFR 68 >=60 mL/min/1. 73 m2 Comment: Interpretive Data Reference Interval Normal ?>/= 90 mL/min/1.73m2 Mildly decreased* ? 60 - 89 mL/min/1.73m2 Mildly to moderately decreased ?45 - 59 mL/min/1.73m2 Moderately to severely decreased ??30 - 44 mL/min/1.73m2 Severely decreased ?15 - 29 mL/min/1.73m2 Kidney Failure ?< 15 ??mL/min/1.73m2 *Relative to young adult level Estimated glomerular filtration rate is determined by the 2020 CKD-EPI equation recommended by the National Kidney [employer] (A Unifying Approach to GFR Estimation: Recommendations of the NKF-ASK Task Force on Reassessing the Inclusion of Race in Diagnosing Kidney Disease, JASN 202). The CKD-EPI equation should not be used for patients with unstable renal function and has not been validated in children and those over 70. Current interpretive data was last reviewed 2021. Blood 04/08/2024 12:5 2 AM [employer] RO[employer] SUPERVISOR 04/08/2024 1:05 AM [employer] RO[employer] SUPERVISOR us Tara Ram MD LAB BLOOD ORDERABLES Final Result [facility] [address] Department [place] [address] * Differential, auto (04/08/2024 12:52 AM [employer] RO[employer] SUPERVISOR) Neutrophil abs 4.4 1.5 - 6.5 K/cumm Imm gran abs 0.0 0.0 - 0.1 K/cumm [facility] Lymphocyte abs 0.9 0.8 - 3.3 K/cumm [facility] Monocyte abs 0.7 0.2 - 0.8 K/cumm [facility] Eosinophil abs 0.3 0.0 - 0.5 K/cumm [facility] Basophil abs 0.1 0.0 - 0.1 K/cumm [facility] Neutrophil pct 68.1 % [facility] Comment: Interpretive Data Percent cell count reference ranges are not reported, since discordance with absolute values may lead to misinterpretation of CBC data. Current Interpretive Data was last revised on 2017. Imm gran pct 0.6 % [facility] Comment: Interpretive Data Percent cell count reference ranges are not reported, since discordance with absolute values may lead to misinterpretation of CBC data. Current Interpretive Data was last revised on 2017. Lymphocyte pct 14.0 % [facility] Comment: Interpretive Data Percent cell count reference ranges are not reported, since discordance with absolute values may lead to misinterpretation of CBC data. Current Interpretive Data was last revised on 2017. Monocyte pct 10.6 % [facility] Comment: Interpretive Data Percent cell count reference ranges are not reported, since discordance with absolute values may lead to misinterpretation of CBC data. Current Interpretive Data was last revised on 2017. Eosinophil pct 5.3 % [facility] Comment: Interpretive Data Percent cell count reference ranges are not reported, since discordance with absolute values may lead to misinterpretation of CBC data. Current Interpretive Data was last revised on 2017. Basophil pct 1.4 % [facility] Comment: Interpretive Data Percent cell count reference ranges are not reported, since discordance with absolute values may lead to misinterpretation of CBC data. Current Interpretive Data was last revised on 2017. Blood 04/08/2024 12:5 2 AM [employer] RO[employer] SUPERVISOR 04/08/2024 1:05 AM [employer] RO[employer] SUPERVISOR Tara Ram MD LAB BLOOD ORDERABLES Final Result Performing Organization Address City/[facility]/ZIP Co de Phone Number [facility] [address] [employer] [place], [place] [id number] * (ABNORMAL) CBC with auto differential (04/08/2024 12:52 AM [employer] RO[employer] SUPERVISOR) WBC 6.4 3.8 - 9.9 K/cumm Hgb 10.5(L) 13.0 - 17.5 g/dL [facility] Hct 33.7(L) 38.9 - 50.3 % [facility] Plt 288 150 - 400 K/cumm [facility] MPV 9.1 9.1 - 12.3 fL [facility] RBC 3.74(L) 4.30 - 5.80 M/cumm [facility] MCV 90.1 81.3 - 96.4 fL [facility] MCH 28.1 27.1 - 33.3 pg [facility] MCHC 31.2(L) 32.3 - 35.7 g/dL [facility] RDW CV 12.5 11.1 - 14.9 % [facility] RDW SD 41.2 35.7 - 48.1 fL [facility] NRBC abs 0.00 0.00 - 0.01 K/cumm [facility] Blood 04/08/2024 12:5 2 AM [employer] RO[employer] SUPERVISOR 04/08/2024 1:05 AM [employer] RO[employer] SUPERVISOR Tara Ram MD LAB BLOOD ORDERABLES Final Result Performing Organization Address City/[facility]/ZIP Co de Phone Number [facility] [address] Department [employer] [place], [place] [phone] * Magnesium (04/08/2024 12:52 AM [employer] RO[employer] SUPERVISOR) Magnesium 2.3 1.4 - 2.5 mg/dL Blood 04/08/2024 12:5 2 AM [employer] RO[employer] SUPERVISOR 04/08/2024 1:05 AM [employer] RO[employer] SUPERVISOR Tara Ram MD LAB BLOOD ORDERABLES Final Result [facility] [address] Department [place] [address] * (ABNORMAL) Renal function panel (04/08/2024 12:52 AM [employer] RO[employer] SUPERVISOR) Pathologist [facility] Sodium 138 135 - 145 mmol/L Potassium, pl 5.0(H) 3.3 - 4.9 mmol/L [facility] Chloride 102 97 - 110 mmol/L [facility] CO2 25 22 - 32 mmol/L [facility] Anion gap 11 2 - 15 mmol/L [facility] BUN 25 6 - 25 mg/dL [facility] Creatinine 1.07 0.80 - 1.30 mg/dL [facility] Glucose 89 70 - 199 mg/dL [facility] Comment: Interpretive Data Fasting glucose >/= 126 mg/dl is diagnostic for diabetes. ?? Fasting is defined as no caloric intake for at least 8 hours. Fasting glucose between 100 mg/dl to 125 mg/dl is diagnostic of prediabetes. In a patient with classic symptoms of hyperglycemia or hyperglycemic crisis, a random glucose >/= 200 mg/dl is diagnostic for diabetes. In the absence of unequivocal hyperglycemia, results should be confirmed by repeat testing. The classification and Diagnosis of Diabetes Diabetes Care 2021; 46: S19-S40. Current interpretive data was last revised 2022. Calcium 9.3 8.5 - 10.3 mg/dL [facility] Phosphorus, pl 3.4 2.3 - 4.5 mg/dL [facility] Albumin 3.4(L) 3.5 - 5.0 g/dL [facility] Blood 04/08/2024 12:5 2 AM [employer] RO[employer] SUPERVISOR 04/08/2024 1:05 AM [employer] RO[employer] SUPERVISOR us Tara Ram MD LAB BLOOD ORDERABLES Final Result Performing Organization Address City/[facility]/ZIP Co de Phone Number [facility] [address] [place] [place] [address] * eGFR (04/07/2024 12:51 AM [employer] RO[employer] SUPERVISOR) eGFR 72 >=60 mL/min/1. 73 m2 Comment: Interpretive Data Reference Interval Normal ?>/= 90 mL/min/1.73m2 Mildly decreased* ? 60 - 89 mL/min/1.73m2 Mildly to moderately decreased ?45 - 59 mL/min/1.73m2 Moderately to severely decreased ??30 - 44 mL/min/1.73m2 Severely decreased ?15 - 29 mL/min/1.73m2 Kidney Failure ?< 15 ??mL/min/1.73m2 *Relative to young adult level Estimated glomerular filtration rate is determined by the 2020 CKD-EPI equation recommended by the National Kidney Foundation (A Unifying Approach to GFR Estimation: Recommendations of the NKF-ASK Task Force on Reassessing the Inclusion of Race in Diagnosing Kidney Disease, JASN 2020). The CKD-EPI equation should not be used for patients with unstable renal function and has not been validated in children and those over 70. Current interpretive data was last reviewed 2021. Blood 04/07/2024 12:5 1 AM [employer] RO[employer] SUPERVISOR 04/07/2024 1:14 AM [employer] RO[employer] SUPERVISOR us Marissa Vitale DO LAB BLOOD ORDERABLES F inal Result Performing Organization Address City/[facility]/ZIP Co de Phone Number [facility] [address] Department [employer] [place], [place] [phone] * (ABNORMAL) Differential, auto (04/07/2024 12:51 AM [employer] RO[employer] SUPERVISOR) Neutrophil abs 4.7 1.5 - 6.5 K/cumm Imm gran abs 0.0 0.0 - 0.1 K/cumm [facility] Lymphocyte abs 0.7(L) 0.8 - 3.3 K/cumm [facility] Monocyte abs 0.6 0.2 - 0.8 K/cumm [facility] Eosinophil abs 0.3 0.0 - 0.5 K/cumm [facility] Basophil abs 0.1 0.0 - 0.1 K/cumm [facility] Neutrophil pct 73.0 % [facility] Comment: Interpretive Data Percent cell count reference ranges are not reported, since discordance with absolute values may lead to misinterpretation of CBC data. Current Interpretive Data was last revised on 2017. Imm gran pct 0.3 % [facility] Comment: Interpretive Data Percent cell count reference ranges are not reported, since discordance with absolute values may lead to misinterpretation of CBC data. Current Interpretive Data was last revised on 2017. Lymphocyte pct 11.5 % [facility] Comment: Interpretive Data Percent cell count reference ranges are not reported, since discordance with absolute values may lead to misinterpretation of CBC data. Current Interpretive Data was last revised on 2017. Monocyte pct 9.5 % [facility] Comment: Interpretive Data Percent cell count reference ranges are not reported, since discordance with absolute values may lead to misinterpretation of CBC data. Current Interpretive Data was last revised on 2017. Eosinophil pct 4.5 % [facility] Comment: Interpretive Data Percent cell count reference ranges are not reported, since discordance with absolute values may lead to misinterpretation of CBC data. Current Interpretive Data was last revised on 2017. Basophil pct 1.2 % [facility] Comment: Interpretive Data Percent cell count reference ranges are not reported, since discordance with absolute values may lead to misinterpretation of CBC data. Current Interpretive Data was last revised on 2017. Blood 04/07/2024 12:5 1 AM [employer] RO[employer] SUPERVISOR 04/07/2024 1:14 AM [employer] RO[employer] SUPERVISOR Marissa Moni Vitale DO LAB BLOOD ORDERABLES F inal Result Performing Organization Address City/[facility]/ZIP Co de Phone Number [facility] [address] [place] [place] [address] * (ABNORMAL) CBC with auto differential (04/07/2024 12:51 AM [employer] DRUM ROOM SUPERVISOR) [facility] WBC 6.4 3.8 - 9.9 K/cumm Hgb 9.6(L) 13.0 - 17.5 g/dL [facility] Hct 29.6(L) 38.9 - 50.3 % [facility] Plt 270 150 - 400 K/cumm [facility] MPV 9.0(L) 9.1 - 12.3 fL [facility] RBC 3.35(L) 4.30 - 5.80 M/cumm [facility] MCV 88.4 81.3 - 96.4 fL [facility] MCH 28.7 27.1 - 33.3 pg [facility] MCHC 32.4 32.3 - 35.7 g/dL [facility] RDW CV 12.5 11.1 - 14.9 % [facility] RDW SD 40.3 35.7 - 48.1 fL [facility] NRBC abs 0.00 0.00 - 0.01 K/cumm [facility] Blood 04/07/2024 12:5 1 AM [employer] ROOM SUPERVISOR 04/07/2024 1:14 AM [employer] ROOM SUPERVISOR Marissa Vitale DO LAB BLOOD ORDERABLES F inal Result [facility] [address] [employer] [place], [place] [id number] * (ABNORMAL) Renal function panel (04/07/2024 12:51 AM S[employer] AND DRUM ROOM SUPERVISOR) Pathologist [facility] Chronically Ill Sodium 135 135 - 145 mmol/L Potassium, pl 4.4 3.3 - 4.9 mmol/L [facility] Chloride 101 97 - 110 mmol/L [facility] CO2 26 22 - 32 mmol/L [facility] Anion gap 8 2 - 15 mmol/L [facility] BUN 28(H) 6 - 25 mg/dL [facility] Creatinine 1.03 0.80 - 1.30 mg/dL [facility] Glucose 136 70 - 199 mg/dL [facility] Comment: Interpretive Data Fasting glucose >/= 126 mg/dl is diagnostic for diabetes. ?? Fasting is defined as no caloric intake for at least 8 hours. Fasting glucose between 100 mg/dl to 125 mg/dl is diagnostic of prediabetes. In a patient with classic symptoms of hyperglycemia or hyperglycemic crisis, a random glucose >/= 200 mg/dl is diagnostic for diabetes. In the absence of unequivocal hyperglycemia, results should be confirmed by repeat testing. The classification and Diagnosis of Diabetes Diabetes Care 2021; 46: S19-S40. Current interpretive data was last revised 2022. Calcium 8.9 8.5 - 10.3 mg/dL [facility] Phosphorus, pl 2.8 2.3 - 4.5 mg/dL [facility] Albumin 3.2(L) 3.5 - 5.0 g/dL [facility] Blood 04/07/2024 12:5 1 AM [employer] SUPERVISOR 04/07/2024 1:14 AM [employer] RO[employer] SUPERVISOR Marissa Vitale DO LAB BLOOD ORDERABLES F inal Result [facility] [address] Department [place] [address] * (ABNORMAL) Hemoglobin and hematocrit (04/06/2024 5:18 PM [employer]UM ROOM SUPERVISOR) Hgb 9.5(L) 13.0 - 17.5 g/dL Hct 29.0(L) 38.9 - 50.3 % [facility] Blood 04/06/2024 5:18 PM [employer] RO[employer] SUPERVISOR 04/06/2024 5:48 PM [employer] ROOM SUPERVISOR Marissa Vitale DO LAB BLOOD ORDERABLES F inal Result [facility] [address] Department of Laboratories [place], [place] [id number] * XR Chest 1 View (04/06/2024 5:06 AM [employer] RO[employer] SUPERVISOR) Anatomical Region Laterality Modality Body, Chest N/A Computed Radiogr aphy 04/06/2024 9:04 AM [employer] AND [employer] ROOM SUPERVISOR Impressions 04/06/2024 9:04 AM [employer] RO[employer] SUPERVISOR Feeding tube courses below the diaphragm, loops in the distal stomach and the tip projects over the gastric body. ??High density material projects over the right upper quadrant. ??Aortic valve replacement is present. ??Sternotomy wires are unchanged. ??Right internal jugular central venous catheter tip projects over the right atrium. No significant change in small left pleural effusion with associated atelectasis. ??The right lung is clear. ??No pneumothorax. ??Heart and mediastinal contours are stable. Electronically signed by: Kyrie Goldstein MD, PHD Narrative 04/06/2024 9:04 AM [employer]UM ROOM SUPERVISOR EXAMINATION: XR CHEST 1 VIEW HISTORY: Shortness of breath COMPARISON: 04/03/2024 Procedure Note Kyrie Goldstein MD PhD - 04/06/2024 EXAMINATION: XR CHEST 1 VIEW HISTORY: Shortness of breath COMPARISON: 04/03/2024 IMPRESSION: Feeding tube courses below the diaphragm, loops in the distal stomach and the tip projects over the gastric body. High density material projects over the right upper quadrant. Aortic valve replacement is present. Sternotomy wires are unchanged. Right internal jugular central venous catheter tip projects over the right atrium. No significant change in small left pleural effusion with associated atelectasis. The right lung is clear. No pneumothorax. Heart and mediastinal contours are stable. Electronically signed by: Kyrie Goldstein MD, PHD us Marissa Vitale DO IMG XR PROCEDURES Hamida l Result * Renal function panel - Add on lab test (04/06/2024 3:29 AM [employer] ROOM SUPERVISOR) Acceptable Yes Blood 04/06/2024 3:29 AM [employer] ROOM SUPERVISOR 04/06/2024 3:30 AM [employer] ROOM SUPERVISOR Narrative [facility] - 04/06/2024 3:31 AM [employer] ROOM SUPERVISOR Name of Test->Renal function panel us Pedro Senior MD LAB BLOOD ORDERABLES Final R esult [facility] [address] Department [place] [address] * eGFR (04/06/2024 2:29 AM [employer] ROOM SUPERVISOR) eGFR 63 >=60 mL/min/1. 73 m2 Comment: Interpretive Data Reference Interval Normal ?>/= 90 mL/min/1.73m2 Mildly decreased* ? 60 - 89 mL/min/1.73m2 Mildly to moderately decreased ?45 - 59 mL/min/1.73m2 Moderately to severely decreased ??30 - 44 mL/min/1.73m2 Severely decreased ?15 - 29 mL/min/1.73m2 Kidney Failure ?< 15 ??mL/min/1.73m2 *Relative to young adult level Estimated glomerular filtration rate is determined by the 2020 CKD-EPI equation recommended by the National Kidney Foundation (A Unifying Approach to GFR Estimation: Recommendations of the NKF-ASK Task Force on Reassessing the Inclusion of Race in Diagnosing Kidney Disease, JASN 2020). The CKD-EPI equation should not be used for patients with unstable renal function and has not been validated in children and those over 70. Current interpretive data was last reviewed 2021. Blood 04/06/2024 2:29 AM [employer] ROOM SUPERVISOR 04/06/2024 2:29 AM [employer] AND [employer]UM ROOM SUPERVISOR us Marissa Vitale DO LAB BLOOD ORDERABLES F inal Result [facility] [address] Department [place] [address] * (ABNORMAL) Differential, auto (04/06/2024 2:29 AM [employer] ROOM SUPERVISOR) Neutrophil abs 7.5(H) 1.5 - 6.5 K/cumm Imm gran abs 0.0 0.0 - 0.1 K/cumm [facility] Lymphocyte abs 0.6(L) 0.8 - 3.3 K/cumm [facility] Monocyte abs 0.8 0.2 - 0.8 K/cumm [facility] Eosinophil abs 0.1 0.0 - 0.5 K/cumm [facility] Basophil abs 0.1 0.0 - 0.1 K/cumm [facility] Neutrophil pct 82.2 % [facility] Comment: Interpretive Data Percent cell count reference ranges are not reported, since discordance with absolute values may lead to misinterpretation of CBC data. Current Interpretive Data was last revised on 2017. Imm gran pct 0.4 % [facility] Comment: Interpretive Data Percent cell count reference ranges are not reported, since discordance with absolute values may lead to misinterpretation of CBC data. Current Interpretive Data was last revised on 2017. Lymphocyte pct 7.0 % [facility] Comment: Interpretive Data Percent cell count reference ranges are not reported, since discordance with absolute values may lead to misinterpretation of CBC data. Current Interpretive Data was last revised on 2017. Monocyte pct 8.2 % [facility] Comment: Interpretive Data Percent cell count reference ranges are not reported, since discordance with absolute values may lead to misinterpretation of CBC data. Current Interpretive Data was last revised on 2017. Eosinophil pct 1.4 % [facility] Comment: Interpretive Data Percent cell count reference ranges are not reported, since discordance with absolute values may lead to misinterpretation of CBC data. Current Interpretive Data was last revised on 2017. Basophil pct 0.8 % [facility] Comment: Interpretive Data Percent cell count reference ranges are not reported, since discordance with absolute values may lead to misinterpretation of CBC data. Current Interpretive Data was last revised on 2017. Blood 04/06/2024 2:29 AM [employer] ROOM SUPERVISOR 04/06/2024 2:29 AM [employer] ROOM SUPERVISOR Marissa Vitale DO LAB BLOOD ORDERABLES F inal Result Performing Organization Address [facility]/ZIP Co de Phone Number [facility] [address] [facility] [place] [address] * (ABNORMAL) Procalcitonin (04/06/2024 2:29 AM S[employer] ROOM SUPERVISOR) [facility] Procalcitonin 0.76(H) <=0.25 ng/mL Blood 04/06/2024 2:29 AM [employer] ROOM SUPERVISOR 04/06/2024 2:29 AM [employer] ROOM SUPERVISOR Marissa Daviscecilia LAB BLOOD ORDERABLES F inal Result Performing Organization Address [facility] Co de Phone Number [facility] [address] [facility] [place] [address] * (ABNORMAL) CBC with auto differential (04/06/2024 2:29 AM [employer] ROOM SUPERVISOR) [facility] WBC 9.1 3.8 - 9.9 K/cumm Hgb 9.3(L) 13.0 - 17.5 g/dL [facility] Hct 28.1(L) 38.9 - 50.3 % [facility] Plt 256 150 - 400 K/cumm [facility] MPV 9.1 9.1 - 12.3 fL [facility] RBC 3.18(L) 4.30 - 5.80 M/cumm [facility] MCV 88.4 81.3 - 96.4 fL [facility] MCH 29.2 27.1 - 33.3 pg [facility] MCHC 33.1 32.3 - 35.7 g/dL [facility] RDW CV 12.4 11.1 - 14.9 % [facility] RDW SD 40.1 35.7 - 48.1 fL [facility] NRBC abs 0.00 0.00 - 0.01 K/cumm [facility] Blood 04/06/2024 2:29 AM [employer] ROOM SUPERVISOR 04/06/2024 2:29 AM [employer] ROOM SUPERVISOR us Marissa Montenegro Iam DO LAB BLOOD ORDERABLES F inal Result [facility] [address] Department [place] [address] * (ABNORMAL) Renal function panel (04/06/2024 2:29 AM [employer] RO[employer] SUPERVISOR) Sodium 128(L) 135 - 145 mmol/L Potassium, pl 4.6 3.3 - 4.9 mmol/L [facility] Chloride 96(L) 97 - 110 mmol/L [facility] CO2 20(L) 22 - 32 mmol/L [facility] Anion gap 12 2 - 15 mmol/L [facility] BUN 29(H) 6 - 25 mg/dL [facility] Creatinine 1.15 0.80 - 1.30 mg/dL [facility] Glucose 144 70 - 199 mg/dL [facility] Comment: Interpretive Data Fasting glucose >/= 126 mg/dl is diagnostic for diabetes. ?? Fasting is defined as no caloric intake for at least 8 hours. Fasting glucose between 100 mg/dl to 125 mg/dl is diagnostic of prediabetes. In a patient with classic symptoms of hyperglycemia or hyperglycemic crisis, a random glucose >/= 200 mg/dl is diagnostic for diabetes. In the absence of unequivocal hyperglycemia, results should be confirmed by repeat testing. The classification and Diagnosis of Diabetes Diabetes Care 2021; 46: S19-S40. Current interpretive data was last revised 2022. Calcium 8.5 8.5 - 10.3 mg/dL [facility] Phosphorus, pl 2.8 2.3 - 4.5 mg/dL [facility] Albumin 3.0(L) 3.5 - 5.0 g/dL [facility] Blood 04/06/2024 2:29 AM [employer] ROOM SUPERVISOR 04/06/2024 2:29 AM [employer] ROOM SUPERVISOR Marissa Burnsrice Iam DO LAB BLOOD ORDERABLES F inal Result Performing Organization Address [facility] Co de Phone Number [facility] [address] [facility] [place] [address] * (ABNORMAL) Blood gas, venous (04/06/2024 2:15 AM S[employer] ROOM SUPERVISOR) pH, Venous 7.40 7.32 - 7.43 PCO2, Venous 37(L) 40 - 50 mmHg [facility] PO2, Venous 75 mmHg [facility] Comment: Interpretive Data No Reference Range Established Current Interpretive Data was last revised on 2017. HCO3 Venous, Calculated 23 20 - 30 mmol/L [facility] BE, venous -2 mmol/L [facility] Comment: nterpretive Data No Reference Range Established Current Interpretive Data was last revised on 2017. Blood 04/06/2024 2:15 AM [employer] ROOM SUPERVISOR 04/06/2024 2:25 AM [employer] AND [employer]UM ROOM SUPERVISOR Marissa Moni Vitale DO LAB BLOOD ORDERABLES F inal Result Performing Organization Address [facility] de Phone Number [facility] [address] [facility] [address] * POCT glucose (04/05/2024 12:05 PM S[employer] ROOM SUPERVISOR) Pathologist [facility] Glucose, POC 77 70 - 199 mg/dL Comment: For Glucose values <35 mg/dl when Hematocrit is >60 mg/dl,the test may not accurately detect significant hypoglycemia,and testing in the Laboratory should be considered if clinically indicated. Blood 04/05/2024 12:0 5 PM [employer] ROOM SUPERVISOR 04/05/2024 12:05 PM [employer]UM ROOM SUPERVISOR Marissa Vitale DO LAB POCT ORDERABLES - DEVICE Final Result Performing Organization Address [facility] Co de Phone Number [facility] [address] Department [place] [address] * XR Kub (04/05/2024 10:23 AM S[employer] ROOM SUPERVISOR) Anatomical Region Laterality Modality Body, Abdomen N/A Computed Radiogr aphy 04/05/2024 10:4 4 AM S[employer] AND [employer]UM ROOM SUPERVISOR Impressions 04/05/2024 10:44 AM [employer]UM ROOM SUPERVISOR Interval placement of a Dobbhoff catheter. ??Its tip projects over the right mid abdomen. ??It is difficult to say if the tip is located within the small bowel in the region of the ligament of Treitz or alternatively if the tube folds upon itself at the pylorus with its tip located in the proximal gastric body. New oral contrast/barium within the gastric fundus and body and within the hepatic flexure of the colon which is in keeping with correlates with residual barium s in the stomach following the swallowing study performed on 04/05/2024 at 10:42 AM. Small left pleural effusion is unchanged. ??Increased opacification of the lung parenchyma the left lower lobe could be due to atelectasis or aspiration. ??Remainder of the included portions of the lungs are clear. ??Sternotomy wires and aortic valve replacement again noted. The heart size is unchanged. ??Note that lower half of the abdomen is not included on the radiograph and therefore is not evaluated on this study. Electronically signed by: Eloisa Tineo M.D. Narrative 04/05/2024 10:44 AM S[employer] DRUM ROOM SUPERVISOR EXAMINATION: KUB-abdomen one view HISTORY: Dobbhoff COMPARISON: CT abdomen 03/19/2024 Procedure Note Eloisa Tineo MD - 04/05/2024 EXAMINATION: KUB-abdomen one view HISTORY: Dobbhoff COMPARISON: CT abdomen 03/19/2024 IMPRESSION: Interval placement of a Dobbhoff catheter. Its tip projects over the right mid abdomen. It is difficult to say if the tip is located within the small bowel in the region of the ligament of Treitz or alternatively if the tube folds upon itself at the pylorus with its tip located in the proximal gastric body. New oral contrast/barium within the gastric fundus and body and within the hepatic flexure of the colon which is in keeping with correlates with residual barium s in the stomach following the swallowing study performed on 04/05/2024 at 10:42 AM. Small left pleural effusion is unchanged. Increased opacification of the lung parenchyma the left lower lobe could be due to atelectasis or aspiration. Remainder of the included portions of the lungs are clear. Sternotomy wires and aortic valve replacement again noted. The heart size is unchanged. Note that lower half of the abdomen is not included on the radiograph and therefore is not evaluated on this study. Electronically signed by: Eloisa Tineo M.D. us Marissa Vitale DO IMG XR PROCEDURES Hamida l Result * FL Modified Barium Swallow W Video (04/05/2024 9:52 AM [employer]UM ROOM SUPERVISOR) Anatomical Region Laterality Modality Head and Neck N/A Radio Fluoroscop y 04/05/2024 10:4 6 AM [employer] AND [employer]UM ROOM SUPERVISOR Impressions 04/05/2024 2:51 PM S[employer]UM ROOM SUPERVISOR 1. ??There is transglottic aspiration with thin consistency, which is sensed with a cough reflex. 2. ??There is trace laryngeal penetration with honey and puree consistencies 3. ??There is moderate residual within the vallecula throughout the exam. Please refer to the Speech Pathology procedure note for safe swallow recommendations as well as additional information regarding the oral-pharyngeal swallow function, plan of care, and recommended follow up. FLUOROSCOPY TIME: 2.3 minutes REFERENCE AIR KERMA: 18.2 mGy. Dictated by: Jennifer Corcoran PA-C The radiology attending physician has personally reviewed this study, and had reviewed and/or edited this written report and agrees with it. Electronically signed by: Mo Stahl M.D. Narrative 04/05/2024 2:51 PM S[employer] AND DRUM ROOM SUPERVISOR EXAMINATION: MODIFIED BARIUM SWALLOW ?? 04/05/2024 HISTORY: Dysphagia. ??Cough, possible aspiration pneumonia. TECHNIQUE: Modified barium swallow was performed in conjunction with the speech pathologist. Thin and thick liquid, pudding preparations of barium were administered orally to the patient. Video fluoroscopy was used throughout the exam. FINDINGS: There is partial visualization of oxygen tubing overlying the bilateral neck. ??There is partial visualization of a right central venous catheter. ??There are 2 surgical clips intermittently seen throughout the study in the mediastinum, overlying the area of the trachea. ??The oral phase of swallowing is within the normal range. Once the swallow reflex is initiated, pharyngeal contractility appears weakened. ??There is intermittent epiglottic inversion. ??There is transglottic aspiration with thin consistency, which is sensed with a cough reflex (series 6, 14). ??There is trace silent transglottic aspiration with nectar consistency (series 7). ??There is trace laryngeal penetration with honey and puree consistencies. There is moderate residual identified within the vallecula throughout the exam. Procedure Note Mo Stahl MD - 04/05/2024 EXAMINATION: MODIFIED BARIUM SWALLOW 04/05/2024 HISTORY: Dysphagia. Cough, possible aspiration pneumonia. TECHNIQUE: Modified barium swallow was performed in conjunction with the speech pathologist. Thin and thick liquid, pudding preparations of barium were administered orally to the patient. Video fluoroscopy was used throughout the exam. FINDINGS: There is partial visualization of oxygen tubing overlying the bilateral neck. There is partial visualization of a right central venous catheter. There are 2 surgical clips intermittently seen throughout the study in the mediastinum, overlying the area of the trachea. The oral phase of swallowing is within the normal range. Once the swallow reflex is initiated, pharyngeal contractility appears weakened. There is intermittent epiglottic inversion. There is transglottic aspiration with thin consistency, which is sensed with a cough reflex (series 6, 14). There is trace silent transglottic aspiration with nectar consistency (series 7). There is trace laryngeal penetration with honey and puree consistencies. There is moderate residual identified within the vallecula throughout the exam. IMPRESSION: 1. There is transglottic aspiration with thin consistency, which is sensed with a cough reflex. 2. There is trace laryngeal penetration with honey and puree consistencies 3. There is moderate residual within the vallecula throughout the exam. Please refer to the Speech Pathology procedure note for safe swallow recommendations as well as additional information regarding the oral-pharyngeal swallow function, plan of care, and recommended follow up. FLUOROSCOPY TIME: 2.3 minutes REFERENCE AIR KERMA: 18.2 mGy. Dictated by: Jennifer Corcoran PA-C The radiology attending physician has personally reviewed this study, and had reviewed and/or edited this written report and agrees with it. Electronically signed by: Mo Stahl M.D. Krishna Salcedo MD IMG FLUOROSCOPY PROCEDURES F inal Result * POCT glucose (04/05/2024 4:30 AM S[employer] AND DRUM ROOM SUPERVISOR) Glucose, POC 71 70 - 199 mg/dL Comment: For Glucose values <35 mg/dl when Hematocrit is >60 mg/dl,the test may not accurately detect significant hypoglycemia,and testing in the Laboratory should be considered if clinically indicated. Blood 04/05/2024 4:30 AM [employer] AND [employer]UM ROOM SUPERVISOR 04/05/2024 4:30 AM [employer] AND DRUM ROOM SUPERVISOR Krishna Salcedo MD LAB POCT ORDERABLES - DEVICE Final Result [facility] [address] Department [place] [address] * eGFR (04/05/2024 3:39 AM S[employer] AND DRUM ROOM SUPERVISOR) eGFR 65 >=60 mL/min/1. 73 m2 Comment: Interpretive Data Reference Interval Normal ?>/= 90 mL/min/1.73m2 Mildly decreased* ? 60 - 89 mL/min/1.73m2 Mildly to moderately decreased ?45 - 59 mL/min/1.73m2 Moderately to severely decreased ??30 - 44 mL/min/1.73m2 Severely decreased ?15 - 29 mL/min/1.73m2 Kidney Failure ?< 15 ??mL/min/1.73m2 *Relative to young adult level Estimated glomerular filtration rate is determined by the 2020 CKD-EPI equation recommended by the National Kidney Foundation (A Unifying Approach to GFR Estimation: Recommendations of the NKF-ASK Task Force on Reassessing the Inclusion of Race in Diagnosing Kidney Disease, SN 2020). The CKD-EPI equation should not be used for patients with unstable renal function and has not been validated in children and those over 70. Current interpretive data was last reviewed 2021. Blood 04/05/2024 3:39 AM S[employer] AND DRUM ROOM SUPERVISOR 04/05/2024 3:53 AM [employer] AND DRUM ROOM SUPERVISOR Tian Long MD LAB BLOOD ORDERABLES Final Result Performing Organization Address [facility]/ZIP Co de Phone Number [facility] [address] [place] [address] * (ABNORMAL) CBC without differential (04/05/2024 3:39 AM S[employer] AND DRUM ROOM SUPERVISOR) WBC 8.8 3.8 - 9.9 K/cumm Hgb 10.5(L) 13.0 - 17.5 g/dL [facility] Hct 32.3(L) 38.9 - 50.3 % [facility] Plt 284 150 - 400 K/cumm [facility] MPV 8.8(L) 9.1 - 12.3 fL [facility] RBC 3.67(L) 4.30 - 5.80 M/cumm [facility] MCV 88.0 81.3 - 96.4 fL [facility] MCH 28.6 27.1 - 33.3 pg [facility] MCHC 32.5 32.3 - 35.7 g/dL [facility] RDW CV 12.3 11.1 - 14.9 % [facility] RDW SD 39.8 35.7 - 48.1 fL [facility] NRBC abs 0.00 0.00 - 0.01 K/cumm [facility] Blood 04/05/2024 3:39 AM [employer] AND [employer]UM ROOM SUPERVISOR 04/05/2024 3:53 AM S[employer] AND DRUM ROOM SUPERVISOR us Krishna Salcedo MD LAB BLOOD ORDERABLES Final R esult Performing Organization Address City/[facility]/ZIP Co de Phone Number [facility] [address] [place] [place] [address] * Magnesium (04/05/2024 3:39 AM S[employer] AND DRUM ROOM SUPERVISOR) Pathologist [facility] Magnesium 2.2 1.4 - 2.5 mg/dL Blood 04/05/2024 3:39 AM [employer] AND [employer]UM ROOM SUPERVISOR 04/05/2024 3:53 AM S[employer] AND DRUM ROOM SUPERVISOR us Marissa Vitale DO LAB BLOOD ORDERABLES F inal Result [facility] [address] Department [place] [address] * (ABNORMAL) Renal function panel (04/05/2024 3:39 AM SPL[employer] AND DRUM ROOM SUPERVISOR) Pathologist [facility] Sodium 131(L) 135 - 145 mmol/L Potassium, pl 4.5 3.3 - 4.9 mmol/L [facility] Chloride 97 97 - 110 mmol/L [facility] CO2 20(L) 22 - 32 mmol/L [facility] Anion gap 14 2 - 15 mmol/L [facility] BUN 19 6 - 25 mg/dL [facility] Creatinine 1.11 0.80 - 1.30 mg/dL [facility] Glucose 63(L) 70 - 199 mg/dL [facility] Comment: Interpretive Data Fasting glucose >/= 126 mg/dl is diagnostic for diabetes. ?? Fasting is defined as no caloric intake for at least 8 hours. Fasting glucose between 100 mg/dl to 125 mg/dl is diagnostic of prediabetes. In a patient with classic symptoms of hyperglycemia or hyperglycemic crisis, a random glucose >/= 200 mg/dl is diagnostic for diabetes. In the absence of unequivocal hyperglycemia, results should be confirmed by repeat testing. The classification and Diagnosis of Diabetes Diabetes Care 2021; 46: S19-S40. Current interpretive data was last revised 2022. Calcium 8.7 8.5 - 10.3 mg/dL [facility] Phosphorus, pl 3.3 2.3 - 4.5 mg/dL [facility] Albumin 3.3(L) 3.5 - 5.0 g/dL [facility] Blood 04/05/2024 3:39 AM [employer] ROOM SUPERVISOR 04/05/2024 3:53 AM [employer] ROOM SUPERVISOR us Tian Long MD LAB BLOOD ORDERABLES Final Result Performing Organization Address [facility] Co de Phone Number [facility] [address] Department [place] [address] * eGFR (04/04/2024 4:18 PM S[employer] AND [employer] ROOM SUPERVISOR) eGFR 61 >=60 mL/min/1. 73 m2 Comment: Interpretive Data Reference Interval Normal ?>/= 90 mL/min/1.73m2 Mildly decreased* ? 60 - 89 mL/min/1.73m2 Mildly to moderately decreased ?45 - 59 mL/min/1.73m2 Moderately to severely decreased ??30 - 44 mL/min/1.73m2 Severely decreased ?15 - 29 mL/min/1.73m2 Kidney Failure ?< 15 ??mL/min/1.73m2 *Relative to young adult level Estimated glomerular filtration rate is determined by the 2020 CKD-EPI equation recommended by the National Kidney Foundation (A Unifying Approach to GFR Estimation: Recommendations of the NKF-ASK Task Force on Reassessing the Inclusion of Race in Diagnosing Kidney Disease, JASN 2020). The CKD-EPI equation should not be used for patients with unstable renal function and has not been validated in children and those over 70. Current interpretive data was last reviewed 2021. Blood 04/04/2024 4:18 PM [employer]UM ROOM SUPERVISOR 04/04/2024 4:30 PM [employer] AND [employer]UM ROOM SUPERVISOR Tian Long MD LAB BLOOD ORDERABLES Final Result Performing Organization Address [facility] de Phone Number [facility] [address] Department [place] [address] * (ABNORMAL) Renal function panel (04/04/2024 4:18 PM S[employer]UM ROOM SUPERVISOR) Pathologist [facility] Sodium 131(L) 135 - 145 mmol/L Potassium, pl 4.7 3.3 - 4.9 mmol/L [facility] Chloride 99 97 - 110 mmol/L [facility] CO2 20(L) 22 - 32 mmol/L [facility] Anion gap 12 2 - 15 mmol/L [facility] BUN 22 6 - 25 mg/dL [facility] Creatinine 1.18 0.80 - 1.30 mg/dL [facility] Glucose 76 70 - 199 mg/dL [facility] Comment: Interpretive Data Fasting glucose >/= 126 mg/dl is diagnostic for diabetes. ?? Fasting is defined as no caloric intake for at least 8 hours. Fasting glucose between 100 mg/dl to 125 mg/dl is diagnostic of prediabetes. In a patient with classic symptoms of hyperglycemia or hyperglycemic crisis, a random glucose >/= 200 mg/dl is diagnostic for diabetes. In the absence of unequivocal hyperglycemia, results should be confirmed by repeat testing. The classification and Diagnosis of Diabetes Diabetes Care 2021; 46: S19-S40. Current interpretive data was last revised 2022. Calcium 8.6 8.5 - 10.3 mg/dL [facility] Phosphorus, pl 4.0 2.3 - 4.5 mg/dL [facility] Albumin 3.0(L) 3.5 - 5.0 g/dL [facility] Blood 04/04/2024 4:18 PM [employer] AND [employer] ROOM SUPERVISOR 04/04/2024 4:30 PM S[employer] AND DRUM ROOM SUPERVISOR us Tian Long MD LAB BLOOD ORDERABLES Final Result [facility] [address] Department [place] [address] * Sodium, urine, random (04/04/2024 6:11 AM S[employer] AND DRUM ROOM SUPERVISOR) Pathologist [facility] Sodium, ur 129 mmol/L Comment: Interpretive Data No reference range established. Current interpretive data was last revised 2018. Urine 04/04/2024 6:11 AM [employer] AND [employer]UM ROOM SUPERVISOR 04/04/2024 6:39 AM S[employer] AND DRUM ROOM SUPERVISOR Tian Long MD LAB URINE ORDERABLES Final Result Performing Organization Address [facility] Co de Phone Number [facility] [address] [facility] [employer] [place], [place] [phone] * Osmolality, urine (04/04/2024 6:11 AM S[employer] AND DRUM ROOM SUPERVISOR) Osmo, ur 549 300 - 800 mOsm/kg Urine 04/04/2024 6:11 AM S[employer] AND [employer]UM ROOM SUPERVISOR 04/04/2024 6:39 AM S[employer] AND DRUM ROOM SUPERVISOR Tian Long MD LAB URINE ORDERABLES Final Result Performing Organization Address [facility] de Phone Number [facility] [address] [facility] [employer] [place], [place] [phone] * Creatinine, urine, random (04/04/2024 6:11 AM S[employer] AND DRUM ROOM SUPERVISOR) Creatinine Ur 71.0 mg/dL Comment: Interpretive Data No reference range established. Current interpretive data was last revised 2018. Urine 04/04/2024 6:11 AM S[employer]UM ROOM SUPERVISOR 04/04/2024 6:39 AM S[employer] AND DRUM ROOM SUPERVISOR Tian Long MD LAB URINE ORDERABLES Final Result Performing Organization Address [facility] de Phone Number [facility] [address] [facility] [employer] [place], [place] [id number] * eGFR (04/04/2024 2:56 AM S[employer] AND [employer] ROOM SUPERVISOR) eGFR 60 >=60 mL/min/1. 73 m2 Comment: Interpretive Data Reference Interval Normal ?>/= 90 mL/min/1.73m2 Mildly decreased* ? 60 - 89 mL/min/1.73m2 Mildly to moderately decreased ?45 - 59 mL/min/1.73m2 Moderately to severely decreased ??30 - 44 mL/min/1.73m2 Severely decreased ?15 - 29 mL/min/1.73m2 Kidney Failure ?< 15 ??mL/min/1.73m2 *Relative to young adult level Estimated glomerular filtration rate is determined by the 2020 CKD-EPI equation recommended by the National Kidney Foundation (A Unifying Approach to GFR Estimation: Recommendations of the NKF-ASK Task Force on Reassessing the Inclusion of Race in Diagnosing Kidney Disease, JASN 2020). The CKD-EPI equation should not be used for patients with unstable renal function and has not been validated in children and those over 70. Current interpretive data was last reviewed 2021. Blood 04/04/2024 2:56 AM S[employer]UM ROOM SUPERVISOR 04/04/2024 3:16 AM S[employer] AND DRUM ROOM SUPERVISOR us Tian Long MD LAB BLOOD ORDERABLES Final Result [facility] [address] Department [place] [address] * (ABNORMAL) CBC without differential (04/04/2024 2:56 AM S[employer] DRUM ROOM SUPERVISOR) Pathologist [facility] WBC 8.0 3.8 - 9.9 K/cumm Hgb 10.9(L) 13.0 - 17.5 g/dL [facility] Hct 32.5(L) 38.9 - 50.3 % [facility] Plt 278 150 - 400 K/cumm [facility] MPV 9.2 9.1 - 12.3 fL [facility] RBC 3.70(L) 4.30 - 5.80 M/cumm [facility] MCV 87.8 81.3 - 96.4 fL [facility] MCH 29.5 27.1 - 33.3 pg [facility] MCHC 33.5 32.3 - 35.7 g/dL [facility] RDW CV 12.6 11.1 - 14.9 % [facility] RDW SD 40.3 35.7 - 48.1 fL [facility] NRBC abs 0.00 0.00 - 0.01 K/cumm [facility] Blood 04/04/2024 2:56 AM [employer] ROOM SUPERVISOR 04/04/2024 3:16 AM S[employer] AND DRUM ROOM SUPERVISOR Krishna Salcedo MD LAB BLOOD ORDERABLES Final R esult [facility] [address] Department of [employer] [place], [place] [phone] * (ABNORMAL) TSH (04/04/2024 2:56 AM S[employer]UM ROOM SUPERVISOR) [facility] Thyroid Stimulating Hormone 11.20(H) 0.30 - 4.20 mcIUnit/mL Blood 04/04/2024 2:56 AM [employer] ROOM SUPERVISOR 04/04/2024 3:16 AM S[employer] AND DRUM ROOM SUPERVISOR Krishna Salcedo MD LAB BLOOD ORDERABLES Final R esult [facility] [address] [place] [address] * (ABNORMAL) Renal function panel (04/04/2024 2:56 AM S[employer] DRUM ROOM SUPERVISOR) [facility] Sodium 125(L) 135 - 145 mmol/L Potassium, pl 4.6 3.3 - 4.9 mmol/L [facility] Chloride 94(L) 97 - 110 mmol/L [facility] CO2 20(L) 22 - 32 mmol/L [facility] Anion gap 11 2 - 15 mmol/L [facility] BUN 20 6 - 25 mg/dL [facility] Creatinine 1.20 0.80 - 1.30 mg/dL [facility] Glucose 70 70 - 199 mg/dL [facility] Comment: Interpretive Data Fasting glucose >/= 126 mg/dl is diagnostic for diabetes. ?? Fasting is defined as no caloric intake for at least 8 hours. Fasting glucose between 100 mg/dl to 125 mg/dl is diagnostic of prediabetes. In a patient with classic symptoms of hyperglycemia or hyperglycemic crisis, a random glucose >/= 200 mg/dl is diagnostic for diabetes. In the absence of unequivocal hyperglycemia, results should be confirmed by repeat testing. The classification and Diagnosis of Diabetes Diabetes Care 202; 46: S19-S40. Current interpretive data was last revised 2022. Calcium 8.5 8.5 - 10.3 mg/dL [facility] Phosphorus, pl 3.9 2.3 - 4.5 mg/dL [facility] Albumin 3.0(L) 3.5 - 5.0 g/dL [facility] Blood 04/04/2024 2:56 AM S[employer] ROOM SUPERVISOR 04/04/2024 3:16 AM S[employer] AND DRUM ROOM SUPERVISOR us Tian Long MD LAB BLOOD ORDERABLES Final Result [facility] [address] Department [place] [address] * eGFR (04/03/2024 5:59 PM S[employer] ROOM SUPERVISOR) eGFR 65 >=60 mL/min/1. 73 m2 Comment: Interpretive Data Reference Interval Normal ?>/= 90 mL/min/1.73m2 Mildly decreased* ? 60 - 89 mL/min/1.73m2 Mildly to moderately decreased ?45 - 59 mL/min/1.73m2 Moderately to severely decreased ??30 - 44 mL/min/1.73m2 Severely decreased ?15 - 29 mL/min/1.73m2 Kidney Failure ?< 15 ??mL/min/1.73m2 *Relative to young adult level Estimated glomerular filtration rate is determined by the 2020 CKD-EPI equation recommended by the National Kidney Foundation (A Unifying Approach to GFR Estimation: Recommendations of the NKF-ASK Task Force on Reassessing the Inclusion of Race in Diagnosing Kidney Disease, JASN 2020). The CKD-EPI equation should not be used for patients with unstable renal function and has not been validated in children and those over 70. Current interpretive data was last reviewed 2021. Blood 04/03/2024 5:59 PM [employer] ROOM SUPERVISOR 04/03/2024 6:07 PM S[employer] DRUM ROOM SUPERVISOR us Krishna Salcedo MD LAB BLOOD ORDERABLES Final R esult [facility] [address] Department [place] [address] * (ABNORMAL) Renal function panel (04/03/2024 5:59 PM S[employer] ROOM SUPERVISOR) Sodium 126(L) 135 - 145 mmol/L Potassium, pl 4.6 3.3 - 4.9 mmol/L [facility] Chloride 94(L) 97 - 110 mmol/L [facility] CO2 20(L) 22 - 32 mmol/L [facility] Anion gap 12 2 - 15 mmol/L [facility] BUN 17 6 - 25 mg/dL [facility] Creatinine 1.11 0.80 - 1.30 mg/dL [facility] Glucose 93 70 - 199 mg/dL [facility] Comment: Interpretive Data Fasting glucose >/= 126 mg/dl is diagnostic for diabetes. ?? Fasting is defined as no caloric intake for at least 8 hours. Fasting glucose between 100 mg/dl to 125 mg/dl is diagnostic of prediabetes. In a patient with classic symptoms of hyperglycemia or hyperglycemic crisis, a random glucose >/= 200 mg/dl is diagnostic for diabetes. In the absence of unequivocal hyperglycemia, results should be confirmed by repeat testing. The classification and Diagnosis of Diabetes Diabetes Care 202; 46: S19-S40. Current interpretive data was last revised 2022. Calcium 8.3(L) 8.5 - 10.3 mg/dL [facility] Phosphorus, pl 3.8 2.3 - 4.5 mg/dL [facility] Albumin 3.0(L) 3.5 - 5.0 g/dL [facility] Blood 04/03/2024 5:59 PM [employer] ROOM SUPERVISOR 04/03/2024 6:07 PM S[employer] DRUM ROOM SUPERVISOR Krishna Salcedo MD LAB BLOOD ORDERABLES Final R esult Performing Organization Address [facility]/ZIP Co de Phone Number [facility] [address] Department of Laboratories [place], [place] [phone] * Aerobic culture and gram stain Sputum Lung (04/03/2024 3:55 PM S[employer] ROOM SUPERVISOR) Direct Specimen Exam Stain: Many polymorphonuclear leukocytes seen. Many Gram Positive Cocci Many Gram Negative Bacilli Report Final Report: Heavy growth normal krupa [facility] Sputum (Lung) 04/03/2024 3:5 5 PM [employer] ROOM SUPERVISOR 04/03/2024 4:31 PM S[employer] DRUM ROOM SUPERVISOR Krishna Salcedo MD LAB MICROBIOLOGY - GENERAL O RDERABLES Final Result Performing Organization Address [facility] Co de Phone Number [facility] [address] Department of [employer] [place], [place] [phone] * MRSA Only (Staphylococcus aureus) PCR Nasal (04/03/2024 3:55 PM S[employer] DRUM ROOM SUPERVISOR) PCR Scrn, Methicillin resistant Staphylococcus aureus (MRSA) Not Detected Not Detected Comment: Interpretive Data Testing performed using Nucleic Acid Amplification with the [employer] Xpert MRSA NxG Assay. This assay detects target DNA from mecA, mecC and the SCCmec insertion site of Staphylococcus aureus using Real-Time PCR and has been cleared by the FDA. Performance characteristics have been verified by the [facility]. Current Interpretive Data was last revised on 2023 Nasal 04/03/2024 3:55 PM S[employer] DRUM ROOM SUPERVISOR 04/03/2024 4:31 PM S[employer] AND DRUM ROOM SUPERVISOR Krishna Salcedo MD LAB MICROBIOLOGY - GENERAL O RDERABLES Final Result Performing Organization Address [facility] Co de Phone Number [facility] [address] [facility] [employer] [place], [place] [phone] * Cortisol - Add on lab test (04/03/2024 2:48 PM S[employer] ROOM SUPERVISOR) Acceptable Yes Blood 04/03/2024 2:48 PM [employer] ROOM SUPERVISOR 04/03/2024 2:48 PM S[employer] AND DRUM ROOM SUPERVISOR Narrative [facility] - 04/03/2024 2:48 PM S[employer]UM ROOM SUPERVISOR Name of Test->Cortisol Tian Long MD LAB BLOOD ORDERABLES Final Result Performing Organization Address [facility] de Phone Number [facility] [address] Department [employer] [place], [place] [phone] * TSH reflex Free T4 - Add on lab test (04/03/2024 2:48 PM S[employer] ROOM SUPERVISOR) Acceptable Yes Blood 04/03/2024 2:48 PM S[employer] DRUM ROOM SUPERVISOR 04/03/2024 2:48 PM SPL[employer] AND DRUM ROOM SUPERVISOR Narrative [facility] 04/03/2024 2:48 PM SPL[employer] AND DRUM ROOM SUPERVISOR Name of Test->TSH reflex Free T4 Tian Long MD LAB BLOOD ORDERABLES Final Result Performing Organization Address [facility] Co de Phone Number [facility] [address] Department [employer] [place], [place] [phone] * Sodium, urine, random - Add on lab test (04/03/2024 2:48 PM S[employer] DRUM ROOM SUPERVISOR) Acceptable Yes Blood 04/03/2024 2:48 PM S[employer]UM ROOM SUPERVISOR 04/03/2024 2:48 PM SPL[employer] AND DRUM ROOM SUPERVISOR Narrative [facility] 04/03/2024 2:48 PM SPL[employer] AND DRUM ROOM SUPERVISOR Name of Test->Sodium, urine, random Tian Long MD LAB BLOOD ORDERABLES Final Result [facility] [address] [place] [address] * Osmolality, urine - Add on lab test (04/03/2024 2:48 PM S[employer] AND DRUM ROOM SUPERVISOR) Acceptable Yes Blood 04/03/2024 2:48 PM S[employer] AND DRUM ROOM SUPERVISOR 04/03/2024 2:48 PM SPL[employer] AND DRUM ROOM SUPERVISOR Narrative [facility] - 04/03/2024 2:48 PM SPL[employer] AND DRUM ROOM SUPERVISOR Name of Test->Osmolality, urine Tian Long MD LAB BLOOD ORDERABLES Final Result Performing Organization Address [facility] Co de Phone Number [facility] [address] Department [place] [address] * TRANSTHORACIC ECHO (TTE) COMPLETE W DOPPLER/CF WO CONTRAST (04/03/2024 2:46 PM S[employer] AND DRUM ROOM SUPERVISOR) Pathologist [facility] LV EF 50-55 % CONS SCIMAGE Anatomical Region Laterality Modality Ultrasound 04/03/2024 12:2 5 PM S[employer] DRUM ROOM SUPERVISOR Narrative 04/03/2024 7:33 PM SPLIT AND DRUM ROOM SUPERVISOR [facility] [address] [place] [address] ECHOCARDIOGRAM Patient Name: GIAN LEE E ?? : 1940 (83y 8m) ??Gender: M Study Date: 04/03/2024 12:25:32 PM Ht(Inch): 68 ??Wt(Lb): 166.01 ??BSA: 1.9 Replacer: CHANDU ??Location: [address] Order Provider: KRISHNA SALCEDO BMI: 25.24 ??BP: 140/74 ?Ref Provider: KRISHNA SALCEDO - ?? PROCEDURES: Echocardiographic Report: Transthoracic Echocardiogram with complete 2D, M-Mode, Spectral and Color Flow Doppler examination. ?? INDICATIONS: aortic root repair. ?? MEASUREMENTS: 2D/MM ?Value ?Range ?Doppler ?Value ?Range IVSd 2D ?1.32 cm ?[ 0.60 - 1.00 ] ?AV Peak Jeremy ?2 m/s ?[ 1 - 2 ] LVIDd 2D ? 4.99 cm ?[ 4.20 - 5.80 ] ?AV Peak PG ? 19 mmHg LVIDs 2D ? 3.71 cm ?[ 2.50 - 4.00 ] ?AV Mean PG ? 10 mmHg LVPWd 2D ? 1.34 cm ?[ 0.60 - 1.00 ] ?AV VTI ? 31.9 cm Estimated EF ? 50-55 % ? STEPHEN VTI ?2.1 cm2 LA Dimension 2D ?5.41 cm ?[ 3.00 - 4.00 ] ?LVOT Peak Jeermy ?1.16 m/s ? [ 0.70 - 1.10 ] AoR Diam 2D ?4.24 cm ?[ 3.10 - 3.70 ] ?LVOT Diam ?2.2 cm AoR Diam 2D Index ?2.23 ?LVOT Peak PG ? 5 mmHg TAPSE ?1.24 cm ?[ 1.71 - 5.00 ] ?LVOT VTI ? 18.5 cm MV Peak PG ? 6 mmHg MV Mean PG ? 2 mmHg MV E Peak Jeremy ?1.0 m/s ?[ 0.6 - 1.3 ] MV A Peak Jeremy ?0.2 m/s ?[ 1.0 - 1.2 ] MV PHT ? 93.2 ms ?[ 20.0 - 100.0 ] MV Decel Time ?194.1 ms ? [ 104.0 - 258.0 ] MVA PHT ?2.4 ms MV E/A Ratio ? 5.0 TR Peak Jeremy ?2.1 m/s ?[ 1.0 - 2.8 ] TR Peak PG ? 18 mmHg RVSP ? 20.7 mmHg ?[ 10.0 - 36.0 ] RA Pressure ?3.0 mmHg PV Peak Jeremy ?0.9 m/s ?[ 0.4 - 0.8 ] PV Peak PG ? 4 mmHg Lat E` Jeremy ? 0.12 m/s ? [ 0.10 - 0.15 ] Sept E' Jeremy ?0.09 m/s ? [ 0.08 - 0.15 ] E/E` ? 8.33 RV S' ?0.06 m/s 2D/MM ?Value ?Range ?Doppler ?Value ?Range - ?? FINDINGS: Study Quality: Technically good study. BP: Blood pressure: 140/74 mmHg. Left Ventricle: Mild left ventricular systolic dysfunction. There is global hypokinesis. Ejection Fraction is estimated at 50-55 %. Normal left ventricular cavity size. Mild to moderate concentric left ventricular hypertrophy. Right Ventricle: Normal right ventricular systolic function. Normal right ventricular size. Left Atrium: There is moderate enlargement of the left atrium. Right Atrium: There is moderate enlargement of the right atrium. Atrial Septum: Normal appearing atrial septum. Mitral Valve: Normal appearance of the mitral valve leaflets. Mild mitral valve regurgitation. Aortic Valve: Normal aortic valve appearance and function. Tricuspid Valve: Normal appearance of the tricuspid leaflets. Mild tricuspid regurgitation. Pulmonic Valve: Grossly normal appearing pulmonic valve. Pericardium: Normal appearing pericardial thickness. Aortic Root and Aorta: Normal caliber aortic root. Aortic Arch: Normal caliber aortic arch. IVC: Normal appearance of the inferior vena cava. ?? CONCLUSIONS: 1. Mild left ventricular systolic dysfunction. There is global hypokinesis. Ejection Fraction is estimated at 50-55 %. Normal left ventricular cavity size. Mild to moderate concentric left ventricular hypertrophy. 2. Normal aortic valve appearance and function. 3. Normal caliber aortic root. Electronically Signed By: Gian Trevino MD 04/03/2024 7:32:32 PM [employer]UM ROOM SUPERVISOR Procedure Note Gian Trevino MD - 04/03/2024 [id number] [place] [address] ECHOCARDIOGRAM Patient Name: ROSA Júnior SPRINGER : 1940 (83y 8m) Gender: M Study Date: 04/03/2024 12:25:32 PM Ht(Inch): 68 Wt(Lb): 166.01 BSA: 1.9 Replacer: CHANDU Location: [address] Order Provider: KRISHNA SALCEDO BMI: 25.24 BP: 140/74 Ref Provider: KRISHNA SALCEDO - PROCEDURES: Echocardiographic Report: Transthoracic Echocardiogram with complete 2D,M-Mode, Spectral and Color Flow Doppler examination. INDICATIONS: aortic root repair. MEASUREMENTS: 2D/MM Value Range Doppler ValueRange IVSd 2D 1.32 cm [ 0.60 - 1.00 ] AV Peak Jeremy 2 m/s[ 1 - 2 ] LVIDd 2D 4.99 cm [ 4.20 - 5.80 ] AV Peak PG 19mmHg LVIDs 2D 3.71 cm [ 2.50 - 4.00 ] AV Mean PG 10mmHg LVPWd 2D 1.34 cm [ 0.60 - 1.00 ] AV VTI 31.9cm Estimated EF 50-55 % STEPHEN VTI 2.1cm2 LA Dimension 2D 5.41 cm [ 3.00 - 4.00 ] LVOT Peak Jeremy 1.16m/s [ 0.70 - 1.10 ] AoR Diam 2D 4.24 cm [ 3.10 - 3.70 ] LVOT Diam 2.2cm AoR Diam 2D Index 2.23 LVOT Peak PG 5mmHg TAPSE 1.24 cm [ 1.71 - 5.00 ] LVOT VTI 18.5cm MV Peak PG 6 mmHg MV Mean PG 2 mmHg MV E Peak Jeremy 1.0 m/s [ 0.6 - 1.3 ] MV A Peak Jeremy 0.2 m/s [ 1.0 - 1.2 ] MV PHT 93.2 ms [ 20.0 - 100.0 ] MV Decel Time 194.1 ms [ 104.0 - 258.0 ] MVA PHT 2.4 ms MV E/A Ratio 5.0 TR Peak Jeremy 2.1 m/s [ 1.0 - 2.8 ] TR Peak PG 18 mmHg RVSP 20.7 mmHg [ 10.0 - 36.0 ] RA Pressure 3.0 mmHg PV Peak Jeremy 0.9 m/s [ 0.4 - 0.8 ] PV Peak PG 4 mmHg Lat E` Jeremy 0.12 m/s [ 0.10 - 0.15 ] Sept E' Jeremy 0.09 m/s [ 0.08 - 0.15 ] E/E` 8.33 RV S' 0.06 m/s 2D/MM Value Range Doppler ValueRange - FINDINGS: Study Quality: Technically good study. BP: Blood pressure: 140/74 mmHg. Left Ventricle: Mild left ventricular systolic dysfunction. There isglobal hypokinesis. Ejection Fraction is estimated at 50-55 %. Normal left ventricular cavitysize. Mild to moderate concentric left ventricular hypertrophy. Right Ventricle: Normal right ventricular systolic function. Normal rightventricular size. Left Atrium: There is moderate enlargement of the left atrium. Right Atrium: There is moderate enlargement of the right atrium. Atrial Septum: Normal appearing atrial septum. Mitral Valve: Normal appearance of the mitral valve leaflets. Mild mitralvalve regurgitation. Aortic Valve: Normal aortic valve appearance and function. Tricuspid Valve: Normal appearance of the tricuspid leaflets. Mildtricuspid regurgitation. Pulmonic Valve: Grossly normal appearing pulmonic valve. Pericardium: Normal appearing pericardial thickness. Aortic Root and Aorta: Normal caliber aortic root. Aortic Arch: Normal caliber aortic arch. IVC: Normal appearance of the inferior vena cava. CONCLUSIONS: 1. Mild left ventricular systolic dysfunction. There is globalhypokinesis. Ejection Fraction is estimated at 50-55 %. Normal left ventricular cavity size.Mild to moderate concentric left ventricular hypertrophy. 2. Normal aortic valve appearance and function. 3. Normal caliber aortic root. Electronically Signed By: Gian Trevino MD 04/03/2024 7:32:32 PM [employer] RO[employer] SUPERVISOR us Krishna Salcedo MD CV ECHO PROCEDURES Final Res ult * (ABNORMAL) Lactate (04/03/2024 11:06 AM S[employer] AND [employer] ROOM SUPERVISOR) Lactate 0.6(L) 0.7 - 2.0 mmol/L Blood 04/03/2024 11:0 6 AM [employer] ROOM SUPERVISOR 04/03/2024 11:15 AM [employer] AND [employer]UM ROOM SUPERVISOR Krishna Salcedo MD LAB BLOOD ORDERABLES Final R esult [facility] [address] Department [place] [address] * eGFR (04/03/2024 11:06 AM S[employer] AND DRUM ROOM SUPERVISOR) eGFR 75 >=60 mL/min/1. 73 m2 Comment: Interpretive Data Reference Interval Normal ?>/= 90 mL/min/1.73m2 Mildly decreased* ? 60 - 89 mL/min/1.73m2 Mildly to moderately decreased ?45 - 59 mL/min/1.73m2 Moderately to severely decreased ??30 - 44 mL/min/1.73m2 Severely decreased ?15 - 29 mL/min/1.73m2 Kidney Failure ?< 15 ??mL/min/1.73m2 *Relative to young adult level Estimated glomerular filtration rate is determined by the 2020 CKD-EPI equation recommended by the National Kidney Foundation (A Unifying Approach to GFR Estimation: Recommendations of the NKF-ASK Task Force on Reassessing the Inclusion of Race in Diagnosing Kidney Disease, JASN 2020). The CKD-EPI equation should not be used for patients with unstable renal function and has not been validated in children and those over 70. Current interpretive data was last reviewed 2021. Blood 04/03/2024 11:0 6 AM SPLIT AND DRUM ROOM SUPERVISOR 04/03/2024 11:23 AM SPLIT AND DRUM ROOM SUPERVISOR us Krishna Salcedo MD LAB BLOOD ORDERABLES Final R esult [facility] [address] Department [place] [address] * (ABNORMAL) Pro B-type natriuretic peptide (04/03/2024 11:06 AM SPLIT AND DRUM ROOM SUPERVISOR) NT-proBNP 1,928(H) <=450 pg/mL Comment: Interpretive Comments: A. Dyspnea in Acute Care Setting All Ages: ?< 300 pg/ml, acute heart failure unlikely. < 50 yrs: ?300 - 450 pg/ml, further investigation warranted. ? > 450 pg/ml, acute heart failure likely. 50 - 74 yrs: ? 300 - 900 pg/ml, further investigation warranted. ? > 900 pg/ml, acute heart failure likely . > or = 75 yrs: ? 450 - 1800 pg/ml, further investigation warranted. ? > 1800 pg/ml, acute heart failure likely. B. Non-acute Setting < 75 yrs ? < 125 pg/ml, rules out heart failure. ? > or = 125 pg/ml, further investigation warranted. > or = 75 yrs ?< 450 pg/ml, rules out heart failure. ? > or = 450 pg/ml, further investigation warranted. - Knowledge of each individual patient's NT-proBNP range may be more useful than using similar cut-points for every patient. Please note that marked elevations in NT-proBNP levels may be observed in state other than Left Ventricular Congestive Failure, including: acute coronary syndromes, right heart strain/failure (including pulmonary embolism and cor pulmonale), critical illness, renal failure, as well as advanced age. - References: 1. Caitie BRINK et.al. Eur Heart J. 2006:27:330-337. 2. Russell RW, Mikaela AM. J. AM Luciana Cardiol: Cardiovasc Imag. 2009;2: 216- 225. Interpretive Data Last Revised Date: 2017. Blood 04/03/2024 11:0 6 AM SPLIT AND DRUM ROOM SUPERVISOR 04/03/2024 11:23 AM SPLIT AND DRUM ROOM SUPERVISOR Krishna Salcedo MD LAB BLOOD ORDERABLES Final R esult Performing Organization Address [facility] Co de Phone Number [facility] [address] [facility] [employer] [place], [place] [id number] * (ABNORMAL) Thyroid Function [place] (04/03/2024 11:06 AM SPLIT AND DRUM ROOM SUPERVISOR) TSH 10.50(H) 0.30 - 4.20 mcIUnit/mL Blood 04/03/2024 11:0 6 AM SPLIT AND DRUM ROOM SUPERVISOR 04/03/2024 11:23 AM SPLIT AND DRUM ROOM SUPERVISOR Krishna Salcedo MD LAB BLOOD ORDERABLES Final R esult Performing Organization Address [facility] de Phone Number [facility] [address] [employer] [place], [place] [id number] * (ABNORMAL) Urinalysis reflex to microscopic and culture Urine (04/03/2024 11:06 AM SPLIT AND DRUM ROOM SUPERVISOR) Color, ur Yellow Yellow Clarity, ur Clear Clear [facility] Specific gravity, ur 1.042(H) 1.003 - 1.030 [facility] pH, urine 7.0 [facility] Comment: Interpretive Data ? Urine pH is affected by diet, medications, systemic acid-base disturbances, and renal tubular function. ??pH may affect urinary stone formation. ??For example, urine pH below 6.0 may help reduce the tendency for calcium phosphate stones and pH greater than 6.0 may reduce the tendency for uric acid stone formation. Source: [facility] [employer] Current Interpretive Data was last revised on 2017 Protein, ur ql Trace Negative [facility] Glucose, ur ql Negative Negative [facility] Ketones, ur Negative Negative [facility] Bilirubin, ur Negative Negative [facility] Blood, ur 3+(A) Negative [facility] Urobilinogen, ur <2.0 <2.0 mg/dL [facility] Nitrite, ur Negative Negative [facility] Leukocyte esterase, ur Negative Negative [facility] UA reflex comment Reflex to microscopic UA will be performed. [facility] Urine 04/03/2024 11:0 6 AM SPLIT AND DRUM ROOM SUPERVISOR 04/03/2024 11:06 AM SPLIT AND DRUM ROOM SUPERVISOR Krishna Salcedo MD LAB MICROBIOLOGY - GENERAL O RDERABLES Final Result Performing Organization Address [facility] Co de Phone Number [facility] [address] [employer] [place], [place] [id number] * Strep pneumoniae antigen, urine Urine (04/03/2024 11:06 AM SPLIT AND DRUM ROOM SUPERVISOR) S. pneumoniae Ag Negative Negative Comment: Interpretive Data A positive result is indicative of pneumococcal pneumonia in patients with severe CAP. ??Cross-reactivity with closely related Streptococcus bacteria may occur. A negative result suggests no current or recent pneumococcal infection but cannot rule out infection with S. pneumoniae. The results of this testing should be used in conjunction with clinical findings and other diagnostic testing, including microbiologic culture. Current Interpretive Data was last revised on 2022 Urine 04/03/2024 11:0 6 AM SPL[employer] AND DRUM ROOM SUPERVISOR 04/03/2024 11:32 AM SPL[employer] AND DRUM ROOM SUPERVISOR Krishna Salcedo MD LAB MICROBIOLOGY - GENERAL O RDERABLES Final Result Performing Organization Address [facility]/ZIP Co de Phone Number [facility] [address] Department [employer] [place], [place] [id number] * Legionella antigen Urine (04/03/2024 11:06 AM SPLIT AND DRUM ROOM SUPERVISOR) Legionella Ag Negative Negative Comment: Interpretive Data This test detects only Legionella pneumophila serogroup 1 antigen. ?? Current interpretive data was last revised on 2019. Urine 04/03/2024 11:0 6 AM SPL[employer] AND DRUM ROOM SUPERVISOR 04/03/2024 11:32 AM SPLIT AND DRUM ROOM SUPERVISOR Krishna Salcedo MD LAB MICROBIOLOGY - GENERAL O RDERABLES Final Result Performing Organization Address [facility] Co de Phone Number [facility] [address] [place] [address] * Sodium, urine, random (04/03/2024 11:06 AM SPL[employer] AND DRUM ROOM SUPERVISOR) Sodium, ur 145 mmol/L Comment: Interpretive Data No reference range established. Current interpretive data was last revised 2018. Urine 04/03/2024 11:0 6 AM SPLIT AND DRUM ROOM SUPERVISOR 04/03/2024 3:13 PM SPLIT AND DRUM ROOM SUPERVISOR Krishna Salcedo MD LAB URINE ORDERABLES Final R esult Performing Organization Address [facility] Co de Phone Number [facility] [address] [place] [address] * Osmolality, urine (04/03/2024 11:06 AM SPLIT AND DRUM ROOM SUPERVISOR) Osmo, ur 526 300 - 800 mOsm/kg Urine 04/03/2024 11:0 6 AM SPL[employer] AND DRUM ROOM SUPERVISOR 04/03/2024 3:14 PM SPLIT AND DRUM ROOM SUPERVISOR Krishna Salcedo MD LAB URINE ORDERABLES Final R esult Performing Organization Address [facility] Co de Phone Number [facility] [address] [place] [address] * (ABNORMAL) Urinalysis, microscopic only (04/03/2024 11:06 AM SPLIT AND DRUM ROOM SUPERVISOR) WBC, ur 0-5 0 - 5 /HPF RBC, ur >50(A) 0 - 2 /HPF [facility] Bacteria, ur Trace(A) [facility] Culture Reflex Comment Reflex conditions for urine culture (WBC >10) not met. [facility] Urine 04/03/2024 11:0 6 AM SPLIT AND DRUM ROOM SUPERVISOR 04/03/2024 11:23 AM SPLIT AND DRUM ROOM SUPERVISOR Result [facility] Krishna Salcedo MD LAB URINE ORDERABLES Final R esult Performing Organization Address [facility] Co de Phone Number [facility] [address] [facility] [place] [address] * (ABNORMAL) aPTT (04/03/2024 11:06 AM SPLIT AND DRUM ROOM SUPERVISOR) aPTT 39(H) 28 - 38 sec Comment: Interpretive Data Heparin therapeutic range: 66.0 - 100.0 seconds. Range based on correlation with therapeutic heparin activity range of 0.3 - 0.7 Units/mL. Current interpretive data was last revised on 2022. Blood 04/03/2024 11:0 6 AM SPL[employer] AND DRUM ROOM SUPERVISOR 04/03/2024 11:22 AM SPLIT AND DRUM ROOM SUPERVISOR Result [facility] Krishna Salcedo MD LAB BLOOD ORDERABLES Final R esult Performing Organization Address [facility] Co de Phone Number [facility] [address] [facility] [place] [address] * (ABNORMAL) Protime-INR (04/03/2024 11:06 AM SPLIT AND DRUM ROOM SUPERVISOR) PT 17.7(H) 9.7 - 13.0 sec INR 1.62(H) 0.90 - 1.20 [facility] Comment: Interpretive data Oral anticoagulant therapeutic ranges: Venous thromboembolism prophylaxis or treatment: 2.0-3.0 CARDIOLOGY Standard range: 2.0-3.0 High-intensity range: 2.5-3.5 Refer to indication-specific guidelines for appropriate target ranges for prosthetic heart valve replacement. Current interpretive data was last revised on 2019. Blood 04/03/2024 11:0 6 AM SPLIT AND DRUM ROOM SUPERVISOR 04/03/2024 11:22 AM SPLIT AND DRUM ROOM SUPERVISOR Result [facility] Krishna Salcedo MD LAB BLOOD ORDERABLES Final R esult Performing Organization Address [facility]/ZIP Co de Phone Number [facility] [address] Department [place] [address] * (ABNORMAL) CBC without differential (04/03/2024 11:06 AM SPLIT AND DRUM ROOM SUPERVISOR) WBC 8.6 3.8 - 9.9 K/cumm Hgb 10.0(L) 13.0 - 17.5 g/dL [facility] Hct 30.8(L) 38.9 - 50.3 % [facility] Plt 249 150 - 400 K/cumm [facility] MPV 9.1 9.1 - 12.3 fL [facility] RBC 3.43(L) 4.30 - 5.80 M/cumm [facility] MCV 89.8 81.3 - 96.4 fL [facility] MCH 29.2 27.1 - 33.3 pg [facility] MCHC 32.5 32.3 - 35.7 g/dL [facility] RDW CV 12.7 11.1 - 14.9 % [facility] RDW SD 41.0 35.7 - 48.1 fL [facility] NRBC abs 0.00 0.00 - 0.01 K/cumm [facility] Blood 04/03/2024 11:0 6 AM SPLIT AND DRUM ROOM SUPERVISOR 04/03/2024 11:23 AM SPLIT AND DRUM ROOM SUPERVISOR Narrative [facility] - 04/03/2024 11:32 AM SPL[employer] AND DRUM ROOM SUPERVISOR Baseline prior to rivaroxaban initiation Krishna Salcedo MD LAB BLOOD ORDERABLES Final R esult [facility] [address] Department [place] [address] * Type and screen (04/03/2024 11:06 AM SPLIT AND DRUM ROOM SUPERVISOR) ABO Rh O Positive Alex, indirect Negative [facility] Blood 04/03/2024 11:0 6 AM SPLIT AND DRUM ROOM SUPERVISOR 04/03/2024 11:25 AM SPLIT AND DRUM ROOM SUPERVISOR Narrative [facility] - 04/03/2024 12:03 PM SPLIT AND DRUM ROOM SUPERVISOR Has the patient had Daratumumab or Isatuximab in the past 6 months?->Unknown Krishna Salcedo MD LAB BLOOD BANK TEST ORDERABL ES Final Result Performing Organization Address [facility] Co de Phone Number [facility] [address] [facility] [place] [address] * Uric acid (04/03/2024 11:06 AM SPL[employer] AND DRUM ROOM SUPERVISOR) Uric acid 3.4 3.0 - 8.0 mg/dL Blood 04/03/2024 11:0 6 AM SPL[employer] AND DRUM ROOM SUPERVISOR 04/03/2024 11:23 AM SPL[employer] AND DRUM ROOM SUPERVISOR Krishna Salcedo MD LAB BLOOD ORDERABLES Final R esult Performing Organization Address [facility] de Phone Number [facility] [address] Department [place] [place] [address] * T4, free (04/03/2024 11:06 AM SPL[employer] AND DRUM ROOM SUPERVISOR) Free T4 0.95 0.90 - 1.70 ng/dL Blood 04/03/2024 11:0 6 AM SPL[employer] AND DRUM ROOM SUPERVISOR 04/03/2024 11:23 AM SPLIT AND DRUM ROOM SUPERVISOR Narrative [facility] - 04/03/2024 2:33 PM SPL[employer] AND DRUM ROOM SUPERVISOR This test was reflexed from a TSH result. Krishna Salcedo MD LAB BLOOD ORDERABLES Final R esult Performing Organization Address [facility] Co de Phone Number [facility] [address] [facility] [place] [address] * Phosphorus (04/03/2024 11:06 AM SPLIT AND DRUM ROOM SUPERVISOR) Phosphorus, pl 3.5 2.3 - 4.5 mg/dL Blood 04/03/2024 11:0 6 AM SPL[employer] AND DRUM ROOM SUPERVISOR 04/03/2024 11:23 AM SPL[employer] AND DRUM ROOM SUPERVISOR Krishna Salcedo MD LAB BLOOD ORDERABLES Final R esult Performing Organization Address City/[facility]/ZIP Co de Phone Number [facility] [address] [facility] [place] [address] * Magnesium (04/03/2024 11:06 AM SPLIT AND DRUM ROOM SUPERVISOR) Magnesium 2.0 1.4 - 2.5 mg/dL Blood 04/03/2024 11:0 6 AM SPL[employer] AND DRUM ROOM SUPERVISOR 04/03/2024 11:23 AM SPL[employer] AND DRUM ROOM SUPERVISOR Krishna Salcedo MD LAB BLOOD ORDERABLES Final R esult Performing Organization Address [facility] Co de Phone Number [facility] [address] [facility] [place] [address] * Cortisol (04/03/2024 11:06 AM SPLIT AND DRUM ROOM SUPERVISOR) Cortisol 8.3 4.8 - 19.5 mcg/dl Blood 04/03/2024 11:0 6 AM SPL[employer] AND DRUM ROOM SUPERVISOR 04/03/2024 11:23 AM SPLIT AND DRUM ROOM SUPERVISOR Krishna Salcedo MD LAB BLOOD ORDERABLES Final R esult Performing Organization Address [facility] Co de Phone Number [facility] [address] [facility] [place] [address] * Bilirubin, direct (04/03/2024 11:06 AM SPLIT AND DRUM ROOM SUPERVISOR) Bilirubin, direct 0.2 0.1 - 0.3 mg/dL Blood 04/03/2024 11:0 6 AM SPLIT AND DRUM ROOM SUPERVISOR 04/03/2024 11:23 AM SPLIT AND DRUM ROOM SUPERVISOR Krishna Salcedo MD LAB BLOOD ORDERABLES Final R esult Performing Organization Address [facility] Co de Phone Number [facility] [address] [facility] [place] [address] * (ABNORMAL) Comprehensive metabolic panel (04/03/2024 11:06 AM SPL[employer] AND DRUM ROOM SUPERVISOR) Sodium 122(L) 135 - 145 mmol/L Potassium, pl 4.4 3.3 - 4.9 mmol/L [facility] Chloride 89(L) 97 - 110 mmol/L [facility] CO2 21(L) 22 - 32 mmol/L [facility] Anion gap 12 2 - 15 mmol/L [facility] BUN 17 6 - 25 mg/dL [facility] Creatinine 0.99 0.80 - 1.30 mg/dL [facility] Glucose 79 70 - 199 mg/dL [facility] Comment: Interpretive Data Fasting glucose >/= 126 mg/dl is diagnostic for diabetes. ?? Fasting is defined as no caloric intake for at least 8 hours. Fasting glucose between 100 mg/dl to 125 mg/dl is diagnostic of prediabetes. In a patient with classic symptoms of hyperglycemia or hyperglycemic crisis, a random glucose >/= 200 mg/dl is diagnostic for diabetes. In the absence of unequivocal hyperglycemia, results should be confirmed by repeat testing. The classification and Diagnosis of Diabetes Diabetes Care 202; 46: S19-S40. Current interpretive data was last revised 2022. Calcium 8.1(L) 8.5 - 10.3 mg/dL [facility] Bilirubin, total 0.5 0.1 - 1.2 mg/dL [facility] Protein, pl 5.6(L) 6.5 - 8.5 g/dL [facility] Albumin 3.0(L) 3.5 - 5.0 g/dL [facility] Alk phos 67 40 - 130 Units/L [facility] ALT 19 7 - 55 Units/L [facility] AST 31 10 - 50 Units/L [facility] Blood 04/03/2024 11:0 6 AM S[employer] AND DRUM ROOM SUPERVISOR 04/03/2024 11:23 AM SPL[employer] AND DRUM ROOM SUPERVISOR us Krishna Salcedo MD LAB BLOOD ORDERABLES Final R esult [facility] [address] Department [place] [place] [address] * X-ray chest 1 view (Portable) (04/03/2024 10:23 AM SPL[employer] AND DRUM ROOM SUPERVISOR) Anatomical Region Laterality Modality Body, Chest N/A Computed Radiogr aphy 04/03/2024 10:3 4 AM SPL[employer] AND DRUM ROOM SUPERVISOR Impressions 04/03/2024 10:34 AM SPL[employer] AND DRUM ROOM SUPERVISOR Persistent left pleural effusion and basilar atelectasis with improving aeration of the right lung. Electronically signed by: Isiah David M.D. Narrative 04/03/2024 10:34 AM SPL[employer] AND DRUM ROOM SUPERVISOR EXAMINATION: XR CHEST 1 VIEW HISTORY: Pneumonia COMPARISON: 03/27/2024 FINDINGS: Right internal jugular central venous catheter in place the tip in the right atrium. ??Aortic valve prosthesis. The heart remains mildly enlarged with persistent retrocardiac opacity and small left pleural effusion. ??The right lung base better aerated than on prior exam. ??Upper lung aeration is normal. Bilateral shoulder prostheses. ??Contrast present within the imaged colon. Procedure Note Isiah David III, MD - 04/03/2024 EXAMINATION: XR CHEST 1 VIEW HISTORY: Pneumonia COMPARISON: 03/27/2024 FINDINGS: Right internal jugular central venous catheter in place the tip in the right atrium. Aortic valve prosthesis. The heart remains mildly enlarged with persistent retrocardiac opacity and small left pleural effusion. The right lung base better aerated than on prior exam. Upper lung aeration is normal. Bilateral shoulder prostheses. Contrast present within the imaged colon. IMPRESSION: Persistent left pleural effusion and basilar atelectasis with improving aeration of the right lung. Electronically signed by: Isiah David M.D. Krishna Salcedo MD IMG XR PROCEDURES Final Resu lt * XR Chest 1 View - Portable - in AM (03/27/2024 6:38 AM S[employer] AND DRUM ROOM SUPERVISOR) Anatomical Region Laterality Modality Body, Chest N/A Computed Radiogr aphy 03/27/2024 7:33 AM SPL[employer] AND DRUM ROOM SUPERVISOR Impressions 03/27/2024 7:33 AM SPL[employer] AND DRUM ROOM SUPERVISOR Bibasilar atelectasis with persistent left pleural effusion. Electronically signed by: Basil Youssef M.D. Narrative 03/27/2024 7:33 AM SPL[employer] AND DRUM ROOM SUPERVISOR EXAMINATION: XR CHEST 1 VIEW HISTORY: Pleural effusion. ??Follow-up imaging. COMPARISON: Multiple prior chest radiographs, most recently 03/26/2024. FINDINGS: AP portable upright chest radiograph was obtained. Prior median sternotomy with aortic valve replacement heart size is stable. ??Normal pulmonary vascularity. ??Tortuous calcific aorta. Persistent bibasilar atelectasis with small left pleural effusion. No pneumothorax. ??Changes bilateral shoulder arthroplasty. Procedure Note Basil Youssef MD - 03/27/2024 EXAMINATION: XR CHEST 1 VIEW HISTORY: Pleural effusion. Follow-up imaging. COMPARISON: Multiple prior chest radiographs, most recently 03/26/2024. FINDINGS: AP portable upright chest radiograph was obtained. Prior median sternotomy with aortic valve replacement heart size is stable. Normal pulmonary vascularity. Tortuous calcific aorta. Persistent bibasilar atelectasis with small left pleural effusion. No pneumothorax. Changes bilateral shoulder arthroplasty. IMPRESSION: Bibasilar atelectasis with persistent left pleural effusion. Electronically signed by: Basil Youssef M.D. Ale Mcknight SUPERVISOR TYPE BAR AND SEGMENT IMG XR PROCEDURES Final Result * eGFR (03/27/2024 12:27 AM SPL[employer] AND DRUM ROOM SUPERVISOR) eGFR 74 >=60 mL/min/1. 73 m2 Comment: Interpretive Data Reference Interval Normal ?>/= 90 mL/min/1.73m2 Mildly decreased* ? 60 - 89 mL/min/1.73m2 Mildly to moderately decreased ?45 - 59 mL/min/1.73m2 Moderately to severely decreased ??30 - 44 mL/min/1.73m2 Severely decreased ?15 - 29 mL/min/1.73m2 Kidney Failure ?< 15 ??mL/min/1.73m2 *Relative to young adult level Estimated glomerular filtration rate is determined by the 2020 CKD-EPI equation recommended by the National Kidney [employer] (A Unifying Approach to GFR Estimation: Recommendations of the NKF-ASK Task Force on Reassessing the Inclusion of Race in Diagnosing Kidney Disease, JASN 2020). The CKD-EPI equation should not be used for patients with unstable renal function and has not been validated in children and those over 70. Current interpretive data was last reviewed 2021. Blood 03/27/2024 12:2 7 AM S[employer] AND DRUM ROOM SUPERVISOR 03/27/2024 1:07 AM S[employer] AND DRUM ROOM SUPERVISOR us Ale Mcknight NP LAB BLOOD ORDERABLES Fin al Result [facility] [address] Department [place] [address] * (ABNORMAL) CBC without differential (03/27/2024 12:27 AM SPL[employer] AND DRUM ROOM SUPERVISOR) WBC 8.8 3.8 - 9.9 K/cumm Hgb 9.5(L) 13.0 - 17.5 g/dL [facility] Hct 29.3(L) 38.9 - 50.3 % [facility] Plt 138(L) 150 - 400 K/cumm [facility] MPV 9.7 9.1 - 12.3 fL [facility] RBC 3.18(L) 4.30 - 5.80 M/cumm [facility] MCV 92.1 81.3 - 96.4 fL [facility] MCH 29.9 27.1 - 33.3 pg [facility] MCHC 32.4 32.3 - 35.7 g/dL [facility] RDW CV 12.9 11.1 - 14.9 % [facility] RDW SD 43.4 35.7 - 48.1 fL [facility] NRBC abs 0.00 0.00 - 0.01 K/cumm [facility] Blood 03/27/2024 12:2 7 AM S[employer] AND DRUM ROOM SUPERVISOR 03/27/2024 1:07 AM SPLIT AND DRUM ROOM SUPERVISOR Ale Mcknight SUPERVISOR TYPE BAR AND SEGMENT LAB BLOOD ORDERABLES Fin al Result Performing Organization Address [facility]/ZIP Co de Phone Number [facility] [address] [facility] [place] [address] * Magnesium (03/27/2024 12:27 AM SPLIT AND DRUM ROOM SUPERVISOR) [facility] Magnesium 2.1 1.4 - 2.5 mg/dL Blood 03/27/2024 12:2 7 AM S[employer] AND DRUM ROOM SUPERVISOR 03/27/2024 1:07 AM SPL[employer] AND DRUM ROOM SUPERVISOR Ale Magy Mcknight SUPERVISOR TYPE BAR AND SEGMENT LAB BLOOD ORDERABLES Fin al Result Performing Organization Address [facility] de Phone Number [facility] [address] [facility] [place] [address] * (ABNORMAL) Renal function panel (03/27/2024 12:27 AM SPLIT AND DRUM ROOM SUPERVISOR) [facility] Sodium 134(L) 135 - 145 mmol/L Potassium, pl 4.3 3.3 - 4.9 mmol/L [facility] Chloride 101 97 - 110 mmol/L [facility] CO2 24 22 - 32 mmol/L [facility] Anion gap 9 2 - 15 mmol/L [facility] BUN 16 6 - 25 mg/dL [facility] Creatinine 1.00 0.80 - 1.30 mg/dL [facility] Glucose 112 70 - 199 mg/dL [facility] Comment: Interpretive Data Fasting glucose >/= 126 mg/dl is diagnostic for diabetes. ?? Fasting is defined as no caloric intake for at least 8 hours. Fasting glucose between 100 mg/dl to 125 mg/dl is diagnostic of prediabetes. In a patient with classic symptoms of hyperglycemia or hyperglycemic crisis, a random glucose >/= 200 mg/dl is diagnostic for diabetes. In the absence of unequivocal hyperglycemia, results should be confirmed by repeat testing. The classification and Diagnosis of Diabetes Diabetes Care 2021; 46: S19-S40. Current interpretive data was last revised 2022. Calcium 8.4(L) 8.5 - 10.3 mg/dL [facility] Phosphorus, pl 4.0 2.3 - 4.5 mg/dL [facility] Albumin 3.1(L) 3.5 - 5.0 g/dL [facility] Blood 03/27/2024 12:2 7 AM [employer] SUPERVISOR 03/27/2024 1:07 AM [employer] RO[employer] SUPERVISOR us Ale Mcknight NP LAB BLOOD ORDERABLES Fin al Result [facility] [address] Department [place] [address] * (ABNORMAL) Urinalysis reflex to microscopic and culture Urine (03/26/2024 11:53 AM [employer] RO[employer] SUPERVISOR) Color, ur Yellow Yellow Clarity, ur Clear Clear [facility] Specific gravity, ur 1.031(H) 1.003 - 1.030 [facility] pH, urine 6.0 [facility] Comment: Interpretive Data ? Urine pH is affected by diet, medications, systemic acid-base disturbances, and renal tubular function. ??pH may affect urinary stone formation. ??For example, urine pH below 6.0 may help reduce the tendency for calcium phosphate stones and pH greater than 6.0 may reduce the tendency for uric acid stone formation. Source: [facility] Current Interpretive Data was last revised on 2017 Protein, ur ql 1+(A) Negative [facility] Glucose, ur ql Negative Negative [facility] Ketones, ur Negative Negative [facility] Bilirubin, ur Negative Negative [facility] Blood, ur Negative Negative [facility] Urobilinogen, ur 2.0(A) <2.0 mg/dL [facility] Nitrite, ur Negative Negative [facility] Leukocyte esterase, ur 2+(A) Negative [facility] UA reflex comment Reflex to microscopic UA will be performed. [facility] Urine 03/26/2024 11:5 3 AM [employer] RO[employer] SUPERVISOR 03/26/2024 11:53 AM [employer] RO[employer] SUPERVISOR us Benny Varun Aranda PA LAB MICROBIOLOGY - GENERAL O RDERABLES Final Result Performing Organization Address [facility] Co de Phone Number [facility] [address] Department [place] [address] * (ABNORMAL) Urinalysis, microscopic only (03/26/2024 11:53 AM [employer] SUPERVISOR) WBC, ur 6-10(A) 0 - 5 /HPF RBC, ur 3-5(A) 0 - 2 /HPF [facility] Epithelial cells, squamous, ur 1-5 0 - 5 /HPF [facility] Mucous, ur Present(A) [facility] Culture Reflex Comment Reflex conditions for urine culture (WBC >10) not met. [facility] Urine 03/26/2024 11:5 3 AM [employer] RO[employer] SUPERVISOR 03/26/2024 12:04 PM [employer] RO[employer] SUPERVISOR Benny SOLIS LAB URINE ORDERABLES Final R esult Performing Organization Address [facility] Co de Phone Number [facility] [address] Department [place] [address] * XR Chest 1 View - Portable - in AM (03/26/2024 6:06 AM [employer] SUPERVISOR) Anatomical Region Laterality Modality Body, Chest N/A Computed Radiogr aphy 03/26/2024 7:40 AM [employer] RO[employer] SUPERVISOR Impressions 03/26/2024 7:40 AM [employer] RO[employer] SUPERVISOR Comparison 03/25/2024 5:47 AM. ??Median sternotomy wires are intact. ??Right internal jugular central venous catheter tip at superior cavoatrial junction. Cardiomediastinal silhouette stable. ??Aortic valve replacement again noted. Moderate left and mild right bibasilar atelectasis and small left pleural effusion again noted. ??No pulmonary edema seen. ??No pneumothorax seen. Electronically signed by: Dion Pinto M.D. Narrative 03/26/2024 7:40 AM [employer] RO[employer] SUPERVISOR EXAMINATION: Chest 1 view Procedure Note Dion Pinto MD - 03/26/2024 EXAMINATION: Chest 1 view IMPRESSION: Comparison 03/25/2024 5:47 AM. Median sternotomy wires are intact. Right internal jugular central venous catheter tip at superior cavoatrial junction. Cardiomediastinal silhouette stable. Aortic valve replacement again noted. Moderate left and mild right bibasilar atelectasis and small left pleural effusion again noted. No pulmonary edema seen. No pneumothorax seen. Electronically signed by: Dion Pinto M.D. us Ale Mcknight NP IMG XR PROCEDURES Final Result * eGFR (03/26/2024 12:27 AM [employer] SUPERVISOR) eGFR 65 >=60 mL/min/1. 73 m2 Comment: Interpretive Data Reference Interval Normal ?>/= 90 mL/min/1.73m2 Mildly decreased* ? 60 - 89 mL/min/1.73m2 Mildly to moderately decreased ?45 - 59 mL/min/1.73m2 Moderately to severely decreased ??30 - 44 mL/min/1.73m2 Severely decreased ?15 - 29 mL/min/1.73m2 Kidney Failure ?< 15 ??mL/min/1.73m2 *Relative to young adult level Estimated glomerular filtration rate is determined by the 2020 CKD-EPI equation recommended by the National Kidney Foundation (A Unifying Approach to GFR Estimation: Recommendations of the NKF-ASK Task Force on Reassessing the Inclusion of Race in Diagnosing Kidney Disease, JASN 2020). The CKD-EPI equation should not be used for patients with unstable renal function and has not been validated in children and those over 70. Current interpretive data was last reviewed 2021. Blood 03/26/2024 12:2 7 AM [employer] RO[employer] SUPERVISOR 03/26/2024 12:50 AM [employer] ROOM SUPERVISOR Ale Mcknight SUPERVISOR TYPE BAR AND SEGMENT LAB BLOOD ORDERABLES Fin al Result Performing Organization Address City/[facility]/ZIP Co de Phone Number [facility] [address] [facility] [place] [address] * (ABNORMAL) CBC without differential (03/26/2024 12:27 AM [employer] RO[employer] SUPERVISOR) WBC 10.0(H) 3.8 - 9.9 K/cumm Hgb 9.8(L) 13.0 - 17.5 g/dL [facility] Hct 29.2(L) 38.9 - 50.3 % [facility] Plt 162 150 - 400 K/cumm [facility] MPV 9.1 9.1 - 12.3 fL [facility] RBC 3.22(L) 4.30 - 5.80 M/cumm [facility] MCV 90.7 81.3 - 96.4 fL [facility] MCH 30.4 27.1 - 33.3 pg [facility] MCHC 33.6 32.3 - 35.7 g/dL [facility] RDW CV 12.9 11.1 - 14.9 % [facility] RDW SD 42.5 35.7 - 48.1 fL [facility] NRBC abs 0.00 0.00 - 0.01 K/cumm [facility] Blood 03/26/2024 12:2 7 AM [employer] ROOM SUPERVISOR 03/26/2024 12:50 AM [employer] ROOM SUPERVISOR Ale Mcknight SUPERVISOR TYPE BAR AND SEGMENT LAB BLOOD ORDERABLES Fin al Result [facility] [address] [place] [place] [address] * Magnesium (03/26/2024 12:27 AM S[employer] ROOM SUPERVISOR) Pathologist [facility] Magnesium 2.0 1.4 - 2.5 mg/dL Blood 03/26/2024 12:2 7 AM [employer] ROOM SUPERVISOR 03/26/2024 12:50 AM [employer] ROOM SUPERVISOR Ale Mcknight SUPERVISOR TYPE BAR AND SEGMENT LAB BLOOD ORDERABLES Fin al Result Performing Organization Address [facility]/ZIP Co de Phone Number [facility] [address] [place] [place] [address] * (ABNORMAL) Renal function panel (03/26/2024 12:27 AM [employer] RO[employer] SUPERVISOR) Sodium 135 135 - 145 mmol/L Potassium, pl 4.2 3.3 - 4.9 mmol/L [facility] Chloride 100 97 - 110 mmol/L [facility] CO2 23 22 - 32 mmol/L [facility] Anion gap 12 2 - 15 mmol/L [facility] BUN 16 6 - 25 mg/dL [facility] Creatinine 1.12 0.80 - 1.30 mg/dL [facility] Glucose 100 70 - 199 mg/dL [facility] Comment: Interpretive Data Fasting glucose >/= 126 mg/dl is diagnostic for diabetes. ?? Fasting is defined as no caloric intake for at least 8 hours. Fasting glucose between 100 mg/dl to 125 mg/dl is diagnostic of prediabetes. In a patient with classic symptoms of hyperglycemia or hyperglycemic crisis, a random glucose >/= 200 mg/dl is diagnostic for diabetes. In the absence of unequivocal hyperglycemia, results should be confirmed by repeat testing. The classification and Diagnosis of Diabetes Diabetes Care 202; 46: S19-S40. Current interpretive data was last revised 2022. Calcium 8.3(L) 8.5 - 10.3 mg/dL [facility] Phosphorus, pl 3.8 2.3 - 4.5 mg/dL [facility] Albumin 3.3(L) 3.5 - 5.0 g/dL [facility] Blood 03/26/2024 12:2 7 AM [employer] ROOM SUPERVISOR 03/26/2024 12:50 AM [employer] ROOM SUPERVISOR Ale Mcknight SUPERVISOR TYPE BAR AND SEGMENT LAB BLOOD ORDERABLES Fin al Result Performing Organization Address [facility]/ZIP Co de Phone Number [facility] [address] [place] [place] [address] * XR Chest 1 View - Portable - in AM (03/25/2024 5:49 AM [employer] RO[employer] SUPERVISOR) Anatomical Region Laterality Modality Body, Chest N/A Computed Radiogr aphy 03/25/2024 8:22 AM [employer] ROOM SUPERVISOR Impressions 03/25/2024 8:22 AM [employer] RO[employer] SUPERVISOR Comparison is made to chest radiograph dated 03/24/2024. Right internal jugular venous approach catheter tip overlies the superior vena cava. ??The patient is status post median sternotomy and aortic valve replacement, as well as bilateral shoulder arthroplasties. Decreased layering small right pleural effusion and associated atelectasis. ??Small left pleural effusion and associated atelectasis has not significantly changed. ??No pneumothorax. ??Stable cardiomediastinal silhouette. Electronically signed by: Farzana Guzman M.D. Narrative 03/25/2024 8:22 AM [employer] RO[employer] SUPERVISOR EXAMINATION: 1 view chest radiograph Procedure Note Farzana Guzman MD - 03/25/2024 EXAMINATION: 1 view chest radiograph IMPRESSION: Comparison is made to chest radiograph dated 03/24/2024. Right internal jugular venous approach catheter tip overlies the superior vena cava. The patient is status post median sternotomy and aortic valve replacement, as well as bilateral shoulder arthroplasties. Decreased layering small right pleural effusion and associated atelectasis. Small left pleural effusion and associated atelectasis has not significantly changed. No pneumothorax. Stable cardiomediastinal silhouette. Electronically signed by: Farzana Guzman M.D. Ale Mcknight NP IMG XR PROCEDURES Final Result * eGFR (03/25/2024 1:33 AM [employer] RO[employer] SUPERVISOR) eGFR 76 >=60 mL/min/1. 73 m2 Comment: Interpretive Data Reference Interval Normal ?>/= 90 mL/min/1.73m2 Mildly decreased* ? 60 - 89 mL/min/1.73m2 Mildly to moderately decreased ?45 - 59 mL/min/1.73m2 Moderately to severely decreased ??30 - 44 mL/min/1.73m2 Severely decreased ?15 - 29 mL/min/1.73m2 Kidney Failure ?< 15 ??mL/min/1.73m2 *Relative to young adult level Estimated glomerular filtration rate is determined by the 2020 CKD-EPI equation recommended by the National Kidney Foundation (A Unifying Approach to GFR Estimation: Recommendations of the NKF-ASK Task Force on Reassessing the Inclusion of Race in Diagnosing Kidney Disease, JASN 2020). The CKD-EPI equation should not be used for patients with unstable renal function and has not been validated in children and those over 70. Current interpretive data was last reviewed 2021. Blood 03/25/2024 1:33 AM [employer] ROOM SUPERVISOR 03/25/2024 1:55 AM [employer]UM ROOM SUPERVISOR us Ale Mcknight NP LAB BLOOD ORDERABLES Fin al Result [facility] [address] Department [place] [address] * (ABNORMAL) CBC without differential (03/25/2024 1:33 AM [employer] ROOM SUPERVISOR) WBC 9.0 3.8 - 9.9 K/cumm Hgb 9.3(L) 13.0 - 17.5 g/dL [facility] Hct 28.0(L) 38.9 - 50.3 % [facility] Plt 131(L) 150 - 400 K/cumm [facility] MPV 9.8 9.1 - 12.3 fL [facility] RBC 3.08(L) 4.30 - 5.80 M/cumm [facility] MCV 90.9 81.3 - 96.4 fL [facility] MCH 30.2 27.1 - 33.3 pg [facility] MCHC 33.2 32.3 - 35.7 g/dL [facility] RDW CV 12.9 11.1 - 14.9 % [facility] RDW SD 42.4 35.7 - 48.1 fL [facility] NRBC abs 0.00 0.00 - 0.01 K/cumm [facility] Blood 03/25/2024 1:33 AM [employer] ROOM SUPERVISOR 03/25/2024 1:55 AM [employer] ROOM SUPERVISOR Ale Mcknight SUPERVISOR TYPE BAR AND SEGMENT LAB BLOOD ORDERABLES Fin al Result [facility] [address] Department of [employer] [place], [place] [id number] * Type and screen (03/25/2024 1:33 AM S[employer] ROOM SUPERVISOR) ABO Rh O Positive Alex, indirect Negative [facility] Blood 03/25/2024 1:33 AM [employer] ROOM SUPERVISOR 03/25/2024 2:03 AM [employer]UM ROOM SUPERVISOR Narrative [facility] - 03/25/2024 2:34 AM [employer] ROOM SUPERVISOR Has the patient had Daratumumab or Isatuximab in the past 6 months?->Unknown Result [facility] Ale Mcknight SUPERVISOR TYPE BAR AND SEGMENT LAB BLOOD BANK TEST ORDE RABLES Final Result Performing Organization Address [facility] Co de Phone Number [facility] [address] Department [place] [employer] [place] [address] * Magnesium (03/25/2024 1:33 AM S[employer] ROOM SUPERVISOR) Pathologist [facility] Magnesium 2.0 1.4 - 2.5 mg/dL Blood 03/25/2024 1:33 AM [employer] ROOM SUPERVISOR 03/25/2024 1:55 AM S[employer] DRUM ROOM SUPERVISOR Ale Mcknight SUPERVISOR TYPE BAR AND SEGMENT LAB BLOOD ORDERABLES Fin al Result Performing Organization Address City/[facility]/ZIP Co de Phone Number [facility] [address] Department [place] [employer] [place] [address] * (ABNORMAL) Renal function panel (03/25/2024 1:33 AM S[employer] ROOM SUPERVISOR) Sodium 132(L) 135 - 145 mmol/L Potassium, pl 4.6 3.3 - 4.9 mmol/L [facility] Chloride 99 97 - 110 mmol/L [facility] CO2 22 22 - 32 mmol/L [facility] Anion gap 11 2 - 15 mmol/L [facility] BUN 16 6 - 25 mg/dL [facility] Creatinine 0.98 0.80 - 1.30 mg/dL [facility] Glucose 104 70 - 199 mg/dL [facility] Comment: Interpretive Data Fasting glucose >/= 126 mg/dl is diagnostic for diabetes. ?? Fasting is defined as no caloric intake for at least 8 hours. Fasting glucose between 100 mg/dl to 125 mg/dl is diagnostic of prediabetes. In a patient with classic symptoms of hyperglycemia or hyperglycemic crisis, a random glucose >/= 200 mg/dl is diagnostic for diabetes. In the absence of unequivocal hyperglycemia, results should be confirmed by repeat testing. The classification and Diagnosis of Diabetes Diabetes Care 2021; 46: S19-S40. Current interpretive data was last revised 2022. Calcium 8.0(L) 8.5 - 10.3 mg/dL [facility] Phosphorus, pl 2.8 2.3 - 4.5 mg/dL [facility] Albumin 2.8(L) 3.5 - 5.0 g/dL [facility] Blood 03/25/2024 1:33 AM [employer] ROOM SUPERVISOR 03/25/2024 1:55 AM S[employer] DRUM ROOM SUPERVISOR us Ale Mcknight NP LAB BLOOD ORDERABLES Fin al Result [facility] [address] Department of Laboratories [place], [place] [id number] * XR Chest 1 View - Portable - in AM (03/24/2024 8:05 AM [employer] ROOM SUPERVISOR) Anatomical Region Laterality Modality Body, Chest N/A Computed Radiogr aphy 03/24/2024 8:15 AM [employer] ROOM SUPERVISOR Impressions 03/24/2024 8:15 AM [employer] ROOM SUPERVISOR Single view chest exam is compared to prior from 03/23/2024. Right internal jugular central venous catheter tip projects over the right atrium. ??Dense left retrocardiac opacification likely combination of left lower lobe collapse and small volume pleural fluid. ??Right basal airspace opacities may represent atelectasis or aspiration. ??Pneumonia could present similarly. ??There is no pneumothorax. ??Calcification of the thoracic aorta. ??The heart is borderline enlarged. ??Sternotomy wires. ??Status post aortic valve replacement. ??Bilateral total shoulder arthroplasties. Electronically signed by: Williams Murillo M.D. Narrative 03/24/2024 8:15 AM [employer]UM ROOM SUPERVISOR EXAMINATION: XR CHEST 1 VIEW History: Pleural effusion Procedure Note Williams Murillo MD - 03/24/2024 EXAMINATION: XR CHEST 1 VIEW History: Pleural effusion IMPRESSION: Single view chest exam is compared to prior from 03/23/2024. Right internal jugular central venous catheter tip projects over the right atrium. Dense left retrocardiac opacification likely combination of left lower lobe collapse and small volume pleural fluid. Right basal airspace opacities may represent atelectasis or aspiration. Pneumonia could present similarly. There is no pneumothorax. Calcification of the thoracic aorta. The heart is borderline enlarged. Sternotomy wires. Status post aortic valve replacement. Bilateral total shoulder arthroplasties. Electronically signed by: Williams Murillo M.D. Ale Mcknight NP IMG XR PROCEDURES Final Result * eGFR (03/24/2024 2:16 AM S[employer]UM ROOM SUPERVISOR) [facility] eGFR 73 >=60 mL/min/1. 73 m2 Comment: Interpretive Data Reference Interval Normal ?>/= 90 mL/min/1.73m2 Mildly decreased* ? 60 - 89 mL/min/1.73m2 Mildly to moderately decreased ?45 - 59 mL/min/1.73m2 Moderately to severely decreased ??30 - 44 mL/min/1.73m2 Severely decreased ?15 - 29 mL/min/1.73m2 Kidney Failure ?< 15 ??mL/min/1.73m2 *Relative to young adult level Estimated glomerular filtration rate is determined by the 2020 CKD-EPI equation recommended by the National Kidney Foundation (A Unifying Approach to GFR Estimation: Recommendations of the NKF-ASK Task Force on Reassessing the Inclusion of Race in Diagnosing Kidney Disease, JASN 2020). The CKD-EPI equation should not be used for patients with unstable renal function and has not been validated in children and those over 70. Current interpretive data was last reviewed 2021. Blood 03/24/2024 2:16 AM [employer] ROOM SUPERVISOR 03/24/2024 2:21 AM [employer] DRUM ROOM SUPERVISOR Ale Mcknight NP LAB BLOOD ORDERABLES Fin al Result [facility] [address] Department [place] [address] * (ABNORMAL) CBC without differential (03/24/2024 2:16 AM S[employer] ROOM SUPERVISOR) WBC 7.5 3.8 - 9.9 K/cumm Hgb 9.6(L) 13.0 - 17.5 g/dL [facility] Hct 28.7(L) 38.9 - 50.3 % [facility] Plt 143(L) 150 - 400 K/cumm [facility] MPV 9.5 9.1 - 12.3 fL [facility] RBC 3.19(L) 4.30 - 5.80 M/cumm [facility] MCV 90.0 81.3 - 96.4 fL [facility] MCH 30.1 27.1 - 33.3 pg [facility] MCHC 33.4 32.3 - 35.7 g/dL [facility] RDW CV 12.7 11.1 - 14.9 % [facility] RDW SD 41.8 35.7 - 48.1 fL [facility] NRBC abs 0.00 0.00 - 0.01 K/cumm [facility] Blood 03/24/2024 2:16 AM [employer] ROOM SUPERVISOR 03/24/2024 2:21 AM S[employer] DRUM ROOM SUPERVISOR Ale Mcknight SUPERVISOR TYPE BAR AND SEGMENT LAB BLOOD ORDERABLES Fin al Result Performing Organization Address [facility] Co de Phone Number [facility] [address] Department [place] [place] [address] * Magnesium (03/24/2024 2:16 AM S[employer] AND DR[employer] ROOM SUPERVISOR) [facility] Magnesium 2.2 1.4 - 2.5 mg/dL Blood 03/24/2024 2:16 AM [employer] ROOM SUPERVISOR 03/24/2024 2:21 AM S[employer] DRUM ROOM SUPERVISOR Ale Mcknight SUPERVISOR TYPE BAR AND SEGMENT LAB BLOOD ORDERABLES Fin al Result Performing Organization Address [facility] de Phone Number [facility] [address] [facility] [place] [employer] [place] [address] * (ABNORMAL) Renal function panel (03/24/2024 2:16 AM S[employer] AND DRUM ROOM SUPERVISOR) Pathologist [facility] Sodium 134(L) 135 - 145 mmol/L Potassium, pl 4.2 3.3 - 4.9 mmol/L [facility] Chloride 103 97 - 110 mmol/L [facility] CO2 22 22 - 32 mmol/L [facility] Anion gap 9 2 - 15 mmol/L [facility] BUN 16 6 - 25 mg/dL [facility] Creatinine 1.01 0.80 - 1.30 mg/dL [facility] Glucose 103 70 - 199 mg/dL [facility] Comment: Interpretive Data Fasting glucose >/= 126 mg/dl is diagnostic for diabetes. ?? Fasting is defined as no caloric intake for at least 8 hours. Fasting glucose between 100 mg/dl to 125 mg/dl is diagnostic of prediabetes. In a patient with classic symptoms of hyperglycemia or hyperglycemic crisis, a random glucose >/= 200 mg/dl is diagnostic for diabetes. In the absence of unequivocal hyperglycemia, results should be confirmed by repeat testing. The classification and Diagnosis of Diabetes Diabetes Care 2021; 46: S19-S40. Current interpretive data was last revised 2022. Calcium 8.3(L) 8.5 - 10.3 mg/dL [facility] Phosphorus, pl 2.2(L) 2.3 - 4.5 mg/dL [facility] Albumin 2.9(L) 3.5 - 5.0 g/dL [facility] Blood 03/24/2024 2:16 AM [employer] ROOM SUPERVISOR 03/24/2024 2:21 AM S[employer] DRUM ROOM SUPERVISOR us Ale Mcknight NP LAB BLOOD ORDERABLES Fin al Result [facility] [address] Department [place] [address] * XR Chest 1 View - Portable - in AM (03/23/2024 6:41 AM [employer] ROOM SUPERVISOR) Anatomical Region Laterality Modality Body, Chest N/A Computed Radiogr aphy 03/23/2024 8:08 AM [employer] ROOM SUPERVISOR Impressions 03/23/2024 8:08 AM [employer] ROOM SUPERVISOR 1. Obscuration of the left hemidiaphragm likely related to a pleural effusion. 2. ??Otherwise grossly negative postoperative chest radiograph. COMMENT: Please see above for additional findings. Electronically signed by: Mo Stahl M.D. Narrative 03/23/2024 8:08 AM [employer]UM ROOM SUPERVISOR Chest Radiograph, 1 view HISTORY: ??pleural effusion, COMPARISON: Portable chest 03/22/2024 at 0718 hours A chest radiograph in the AP was presented. FINDINGS: A right internal jugular central venous line is present in the patient is undergone sternotomy. ??An aortic valve prosthesis is present. The osseous structures and chest wall are grossly within expected limits. There is no evidence of pneumothorax. The mediastinum and pablito within expected limits. The cardiac silhouette within normal size limits. A small left pleural effusion is present and obscures the hemidiaphragm. The right lateral costophrenic angle is preserved. No definite infiltrates, suspicious opacities or abnormal interstitial markings are appreciated in the remaining lung baumann. The included portion of the upper abdomen is within expected limits. Procedure Note Mo Stahl MD - 03/23/2024 Chest Radiograph, 1 view HISTORY: pleural effusion, COMPARISON: Portable chest 03/22/2024 at 0718 hours A chest radiograph in the AP was presented. FINDINGS: A right internal jugular central venous line is present in the patient is undergone sternotomy. An aortic valve prosthesis is present. The osseous structures and chest wall are grossly within expected limits. There is no evidence of pneumothorax. The mediastinum and pablito within expected limits. The cardiac silhouette within normal size limits. A small left pleural effusion is present and obscures the hemidiaphragm. The right lateral costophrenic angle is preserved. No definite infiltrates, suspicious opacities or abnormal interstitial markings are appreciated in the remaining lung baumann. The included portion of the upper abdomen is within expected limits. IMPRESSION: 1. Obscuration of the left hemidiaphragm likely related to a pleural effusion. 2. Otherwise grossly negative postoperative chest radiograph. COMMENT: Please see above for additional findings. Electronically signed by: Mo Stahl M.D. Ale Mcknight NP IMG XR PROCEDURES Final Result * Critical Care (03/23/2024 6:36 AM SPLIT AND DRUM ROOM SUPERVISOR) Narrative Mauri Odell MD - 03/23/2024 6:36 AM SPLIT AND DRUM ROOM SUPERVISOR Ale Mcknight NP ? 03/23/2024 ??8:54 AM Critical Care Performed by: Ale Mcknight NP Authorized by: Ale Mcknight NP ?? CRITICAL CARE: ??Team: ??[facility] CT ??Shift: ??AM ??Level of Billing: ??Subsequent Hospital Visit Level 3 ??My time spent with this patient was 45 minutes: Critical Provider Statement: I have seen and examined the patient on this day of service. I have reviewed and confirmed the history, physical exam, laboratory, and radiographic data as documented in the ICU note. I have reviewed and discussed my treatment plan with the patient's team and other medical/risk management consultant staff. This time was in addition to and separate from care provided by other practitioners on this day of service. ? I spent time reviewing and interpreting data from bedside monitors, laboratory results, and imaging and I spent time discussing the management of this critically ill patient with consultants and the medical staff us Ale Mcknight NP IN CLINIC/BEDSIDE ORDERA BLES Final Result * eGFR (03/23/2024 1:16 AM SPLIT AND DRUM ROOM SUPERVISOR) eGFR 77 >=60 mL/min/1. 73 m2 Comment: Interpretive Data Reference Interval Normal ?>/= 90 mL/min/1.73m2 Mildly decreased* ? 60 - 89 mL/min/1.73m2 Mildly to moderately decreased ?45 - 59 mL/min/1.73m2 Moderately to severely decreased ??30 - 44 mL/min/1.73m2 Severely decreased ?15 - 29 mL/min/1.73m2 Kidney Failure ?< 15 ??mL/min/1.73m2 *Relative to young adult level Estimated glomerular filtration rate is determined by the 2020 CKD-EPI equation recommended by the National Kidney Foundation (A Unifying Approach to GFR Estimation: Recommendations of the NKF-ASK Task Force on Reassessing the Inclusion of Race in Diagnosing Kidney Disease, JASN 2020). The CKD-EPI equation should not be used for patients with unstable renal function and has not been validated in children and those over 70. Current interpretive data was last reviewed 2021. Blood 03/23/2024 1:16 AM SPLIT AND DRUM ROOM SUPERVISOR 03/23/2024 1:35 AM SPLIT AND DRUM ROOM SUPERVISOR us Brenda Mayberry NP LAB BLOOD ORDERABLES Final Result [facility] [address] Department [place] [address] * (ABNORMAL) Calcium, ionized (03/23/2024 1:16 AM SPLIT AND DRUM ROOM SUPERVISOR) [facility] Calcium, Ionized 4.40(L) 4.50 - 5.10 mg/dL Blood 03/23/2024 1:16 AM SPLIT AND DRUM ROOM SUPERVISOR 03/23/2024 1:23 AM SPLIT AND DRUM ROOM SUPERVISOR Gena Magyjúnior Jane SUPERVISOR TYPE BAR AND SEGMENT LAB BLOOD ORDERABLES Hamida l Result Performing Organization Address [facility] de Phone Number [facility] [address] [facility] [place] [address] * Protime-INR (03/23/2024 1:16 AM SPLIT AND DRUM ROOM SUPERVISOR) [facility] PT 11.7 9.7 - 13.0 sec INR 1.08 0.90 - 1.20 [facility] Comment: Interpretive data Oral anticoagulant therapeutic ranges: Venous thromboembolism prophylaxis or treatment: 2.0-3.0 CARDIOLOGY Standard range: 2.0-3.0 High-intensity range: 2.5-3.5 Refer to indication-specific guidelines for appropriate target ranges for prosthetic heart valve replacement. Current interpretive data was last revised on 2019. Blood 03/23/2024 1:16 AM SPLIT AND DRUM ROOM SUPERVISOR 03/23/2024 1:35 AM SPLIT AND DRUM ROOM SUPERVISOR Gena Jane SUPERVISOR TYPE BAR AND SEGMENT LAB BLOOD ORDERABLES Hamida l Result Performing Organization Address [facility] Co de Phone Number [facility] [address] [facility] [place] [place] [address] * (ABNORMAL) CBC without differential (03/23/2024 1:16 AM SPLIT AND DRUM ROOM SUPERVISOR) [facility] WBC 8.3 3.8 - 9.9 K/cumm Hgb 10.2(L) 13.0 - 17.5 g/dL [facility] Hct 31.4(L) 38.9 - 50.3 % [facility] Plt 130(L) 150 - 400 K/cumm [facility] MPV 9.6 9.1 - 12.3 fL [facility] RBC 3.42(L) 4.30 - 5.80 M/cumm [facility] MCV 91.8 81.3 - 96.4 fL [facility] MCH 29.8 27.1 - 33.3 pg [facility] MCHC 32.5 32.3 - 35.7 g/dL [facility] RDW CV 12.9 11.1 - 14.9 % [facility] RDW SD 43.1 35.7 - 48.1 fL [facility] NRBC abs 0.00 0.00 - 0.01 K/cumm [facility] Blood 03/23/2024 1:16 AM SPLIT AND DRUM ROOM SUPERVISOR 03/23/2024 1:36 AM SPLIT AND DRUM ROOM SUPERVISOR Ale Mcknight SUPERVISOR TYPE BAR AND SEGMENT LAB BLOOD ORDERABLES Fin al Result Performing Organization Address [facility]/ZIP Co de Phone Number [facility] [address] [place] [place] [address] * Magnesium (03/23/2024 1:16 AM SPLIT AND DRUM ROOM SUPERVISOR) Pathologist [facility] Magnesium 2.2 1.4 - 2.5 mg/dL Comment:Reviewed Blood 03/23/2024 1:16 AM SPLIT AND DRUM ROOM SUPERVISOR 03/23/2024 1:35 AM SPLIT AND DRUM ROOM SUPERVISOR Ale Mcknight SUPERVISOR TYPE BAR AND SEGMENT LAB BLOOD ORDERABLES Fin al Result Performing Organization Address [facility]/ZIP Co de Phone Number [facility] [address] Department [place] [place] [address] * (ABNORMAL) Renal function panel (03/23/2024 1:16 AM SPLIT AND DRUM ROOM SUPERVISOR) Pathologist [facility] Sodium 134(L) 135 - 145 mmol/L Potassium, pl 4.5 3.3 - 4.9 mmol/L [facility] Chloride 100 97 - 110 mmol/L [facility] CO2 21(L) 22 - 32 mmol/L [facility] Anion gap 13 2 - 15 mmol/L [facility] BUN 13 6 - 25 mg/dL [facility] Creatinine 0.97 0.80 - 1.30 mg/dL [facility] Glucose 79 70 - 199 mg/dL [facility] Comment: Interpretive Data Fasting glucose >/= 126 mg/dl is diagnostic for diabetes. ?? Fasting is defined as no caloric intake for at least 8 hours. Fasting glucose between 100 mg/dl to 125 mg/dl is diagnostic of prediabetes. In a patient with classic symptoms of hyperglycemia or hyperglycemic crisis, a random glucose >/= 200 mg/dl is diagnostic for diabetes. In the absence of unequivocal hyperglycemia, results should be confirmed by repeat testing. The classification and Diagnosis of Diabetes Diabetes Care 202; 46: S19-S40. Current interpretive data was last revised 2022. Calcium 8.2(L) 8.5 - 10.3 mg/dL [facility] Phosphorus, pl 3.3 2.3 - 4.5 mg/dL [facility] Albumin 2.9(L) 3.5 - 5.0 g/dL [facility] Blood 03/23/2024 1:16 AM SPLIT AND DRUM ROOM SUPERVISOR 03/23/2024 1:35 AM SPLIT AND DRUM ROOM SUPERVISOR Ale Mcknight NP LAB BLOOD ORDERABLES Fin al Result [facility] [address] Department [place] [address] * Critical Care (03/22/2024 8:16 PM SPLIT AND DRUM ROOM SUPERVISOR) Narrative Mauri Odell MD - 03/22/2024 8:16 PM SPLIT AND DRUM ROOM SUPERVISOR Gena Jane NP ? 03/23/2024 ??4:04 AM Critical Care Performed by: Gena Jane NP Authorized by: Gena Jane NP ?? CRITICAL CARE: ??Team: ??[facility] CT ??Shift: ??PM ??Level of Billing: ??Subsequent Hospital Visit Level 3 ??My time spent with this patient was 40 minutes: Critical Provider Statement: I have seen and examined the patient on this day of service. I have reviewed and confirmed the history, physical exam, laboratory, and radiographic data as documented in the ICU note. I have reviewed and discussed my treatment plan with the patient's team and other medical/risk management consultant staff. This time was in addition to and separate from care provided by other practitioners on this day of service. ? I spent time documenting in the medical record, I spent time discussing the management of this critically ill patient with consultants and the medical staff and I spent time reviewing and interpreting data from bedside monitors, laboratory results, and imaging us Gena Jane SUPERVISOR TYPE BAR AND SEGMENT IN CLINIC/BEDSIDE ORDERAB LES Final Result * POCT glucose (03/22/2024 6:38 PM SPLIT AND DRUM ROOM SUPERVISOR) Glucose, POC 96 70 - 199 mg/dL Comment: For Glucose values <35 mg/dl when Hematocrit is >60 mg/dl,the test may not accurately detect significant hypoglycemia,and testing in the Laboratory should be considered if clinically indicated. Blood 03/22/2024 6:38 PM SPLIT AND DRUM ROOM SUPERVISOR 03/22/2024 6:38 PM SPLIT AND DRUM ROOM SUPERVISOR us Basil Adhikari MD LAB POCT ORDERABLES - DE VICE Final Result [facility] [address] Department [place] [address] * eGFR (03/22/2024 6:30 PM SPLIT AND DRUM ROOM SUPERVISOR) eGFR 76 >=60 mL/min/1. 73 m2 Comment: Interpretive Data Reference Interval Normal ?>/= 90 mL/min/1.73m2 Mildly decreased* ? 60 - 89 mL/min/1.73m2 Mildly to moderately decreased ?45 - 59 mL/min/1.73m2 Moderately to severely decreased ??30 - 44 mL/min/1.73m2 Severely decreased ?15 - 29 mL/min/1.73m2 Kidney Failure ?< 15 ??mL/min/1.73m2 *Relative to young adult level Estimated glomerular filtration rate is determined by the 2020 CKD-EPI equation recommended by the National Kidney Foundation (A Unifying Approach to GFR Estimation: Recommendations of the NKF-ASK Task Force on Reassessing the Inclusion of Race in Diagnosing Kidney Disease, JASN 2020). The CKD-EPI equation should not be used for patients with unstable renal function and has not been validated in children and those over 70. Current interpretive data was last reviewed 2021. Blood 03/22/2024 6:30 PM SPLIT AND DRUM ROOM SUPERVISOR 03/22/2024 6:42 PM SPLIT AND DRUM ROOM SUPERVISOR Sara Shanna Edwards SUPERVISOR TYPE BAR AND SEGMENT LAB BLOOD ORDERABLES Final Result Performing Organization Address City/[facility]/ZIP Co de Phone Number [facility] [address] Department [employer] [place], [place] [id number] * (ABNORMAL) Calcium, ionized (03/22/2024 6:30 PM SPLIT AND DRUM ROOM SUPERVISOR) Calcium, Ionized 4.40(L) 4.50 - 5.10 mg/dL Blood 03/22/2024 6:30 PM SPLIT AND DRUM ROOM SUPERVISOR 03/22/2024 6:42 PM SPLIT AND DRUM ROOM SUPERVISOR Sara Shanna Edwards SUPERVISOR TYPE BAR AND SEGMENT LAB BLOOD ORDERABLES Final Result Performing Organization Address City/[facility]/ZIP Co de Phone Number [facility] [address] Department [place] [employer] [place] [address] * aPTT (03/22/2024 6:30 PM SPLIT AND DRUM ROOM SUPERVISOR) aPTT 30 28 - 38 sec Comment: Interpretive Data Heparin therapeutic range: 66.0 - 100.0 seconds. Range based on correlation with therapeutic heparin activity range of 0.3 - 0.7 Units/mL. Current interpretive data was last revised on 2022. Blood 03/22/2024 6:30 PM SPLIT AND DRUM ROOM SUPERVISOR 03/22/2024 6:42 PM SPLIT AND DRUM ROOM SUPERVISOR Sara Otero Jerry SUPERVISOR TYPE BAR AND SEGMENT LAB BLOOD ORDERABLES Final Result Performing Organization Address [facility] Co de Phone Number [facility] [address] [facility] [place] [place] [address] * Protime-INR (03/22/2024 6:30 PM SPLIT AND DRUM ROOM SUPERVISOR) Pathologist [facility] PT 12.8 9.7 - 13.0 sec INR 1.18 0.90 - 1.20 [facility] Comment: Interpretive data Oral anticoagulant therapeutic ranges: Venous thromboembolism prophylaxis or treatment: 2.0-3.0 CARDIOLOGY Standard range: 2.0-3.0 High-intensity range: 2.5-3.5 Refer to indication-specific guidelines for appropriate target ranges for prosthetic heart valve replacement. Current interpretive data was last revised on 2019. Blood 03/22/2024 6:30 PM SPLIT AND DRUM ROOM SUPERVISOR 03/22/2024 6:42 PM SPLIT AND DRUM ROOM SUPERVISOR Sara Otero Jerry SUPERVISOR TYPE BAR AND SEGMENT LAB BLOOD ORDERABLES Final Result Performing Organization Address [facility] Co de Phone Number [facility] [address] [facility] [place] [place] [address] * (ABNORMAL) CBC without differential (03/22/2024 6:30 PM SPLIT AND DRUM ROOM SUPERVISOR) [facility] WBC 9.6 3.8 - 9.9 K/cumm Hgb 9.9(L) 13.0 - 17.5 g/dL [facility] Hct 29.4(L) 38.9 - 50.3 % [facility] Plt 107(L) 150 - 400 K/cumm [facility] MPV 9.5 9.1 - 12.3 fL [facility] RBC 3.23(L) 4.30 - 5.80 M/cumm [facility] MCV 91.0 81.3 - 96.4 fL [facility] MCH 30.7 27.1 - 33.3 pg [facility] MCHC 33.7 32.3 - 35.7 g/dL [facility] RDW CV 12.7 11.1 - 14.9 % [facility] RDW SD 42.5 35.7 - 48.1 fL [facility] NRBC abs 0.00 0.00 - 0.01 K/cumm [facility] Blood 03/22/2024 6:30 PM SPLIT AND DRUM ROOM SUPERVISOR 03/22/2024 6:42 PM SPLIT AND DRUM ROOM SUPERVISOR Sara Shanna Edwards SUPERVISOR TYPE BAR AND SEGMENT LAB BLOOD ORDERABLES Final Result Performing Organization Address [facility]/ZIP Co de Phone Number [facility] [address] Department [place] [address] * Magnesium (03/22/2024 6:30 PM SPLIT AND DRUM ROOM SUPERVISOR) [facility] Magnesium 1.7 1.4 - 2.5 mg/dL Blood 03/22/2024 6:30 PM SPLIT AND DRUM ROOM SUPERVISOR 03/22/2024 6:42 PM SPLIT AND DRUM ROOM SUPERVISOR Sara Shanna Edwards SUPERVISOR TYPE BAR AND SEGMENT LAB BLOOD ORDERABLES Final Result Performing Organization Address [facility] de Phone Number [facility] [address] Department [place] [place] [address] * (ABNORMAL) Renal function panel (03/22/2024 6:30 PM SPLIT AND DRUM ROOM SUPERVISOR) Pathologist [facility] Sodium 133(L) 135 - 145 mmol/L Potassium, pl 4.1 3.3 - 4.9 mmol/L [facility] Chloride 101 97 - 110 mmol/L [facility] CO2 20(L) 22 - 32 mmol/L [facility] Anion gap 12 2 - 15 mmol/L [facility] BUN 15 6 - 25 mg/dL [facility] Creatinine 0.98 0.80 - 1.30 mg/dL [facility] Glucose 89 70 - 199 mg/dL [facility] Comment: Interpretive Data Fasting glucose >/= 126 mg/dl is diagnostic for diabetes. ?? Fasting is defined as no caloric intake for at least 8 hours. Fasting glucose between 100 mg/dl to 125 mg/dl is diagnostic of prediabetes. In a patient with classic symptoms of hyperglycemia or hyperglycemic crisis, a random glucose >/= 200 mg/dl is diagnostic for diabetes. In the absence of unequivocal hyperglycemia, results should be confirmed by repeat testing. The classification and Diagnosis of Diabetes Diabetes Care 2021; 46: S19-S40. Current interpretive data was last revised 2022. Calcium 7.5(L) 8.5 - 10.3 mg/dL [facility] Phosphorus, pl 3.0 2.3 - 4.5 mg/dL [facility] Albumin 2.8(L) 3.5 - 5.0 g/dL [facility] Blood 03/22/2024 6:30 PM SPLIT AND DRUM ROOM SUPERVISOR 03/22/2024 6:42 PM SPLIT AND DRUM ROOM SUPERVISOR us Sara Edwards NP LAB BLOOD ORDERABLES Final Result [facility] [address] Department [place] [address] * Critical Care (03/22/2024 5:43 PM SPLIT AND DRUM ROOM SUPERVISOR) Narrative Mauri Odell MD - 03/22/2024 5:43 PM SPLIT AND DRUM ROOM SUPERVISOR Sara Edwards NP ? 03/22/2024 ??5:52 PM Critical Care Performed by: Sara Edwards NP Authorized by: Sara Edwards NP ?? CRITICAL CARE: ??Team: ??[facility] CT ??Shift: ??AM ??Level of Billing: ??Critical Care ??My time spent with this patient was 35 minutes: Critical Provider Statement: I have seen and examined the patient on this day of service. I have reviewed and confirmed the history, physical exam, laboratory and radiologic data as documented in the signed ICU note. I have reviewed and discussed my treatment plan with the ICU team and other medical/risk management consultant staff, making frequent assessments and decisions regarding this patient's complex medical care. Critical Care time was exclusive of time spent performing separately billed procedures, treating other patients, and teaching. This time was in addition to and separate from critical care provided by other practitioners in my group on this day of service. Critical Care was necessary to treat or prevent imminent or life-threatening deterioration of the following conditions: ? I spent time reviewing and interpreting data from bedside monitors, laboratory results, and imaging, I spent time discussing the management of this critically ill patient with consultants and the medical staff and I spent time documenting in the medical record us Sara Edwards NP IN CLINIC/BEDSIDE ORDERABL ES Final Result * REVAS ENDOVASILIAC W STNT [id number] (03/22/2024 4:52 PM SPLIT AND DRUM ROOM SUPERVISOR) Anatomical Region Laterality Modality X-Ray Angiograph y Narrative 03/22/2024 4:54 PM SPLIT AND DRUM ROOM SUPERVISOR Please see OpNote for result. Basil Adhikari MD CV CARDIAC CATH PROCEDUR ES Final Result * (ABNORMAL) POC Activated Clotting Time, High Range (03/22/2024 4:51 PM SPLIT AND DRUM ROOM SUPERVISOR) Pathologist [facility] ACT 139(H) 87 - 138 sec Blood 03/22/2024 4:51 PM SPLIT AND DRUM ROOM SUPERVISOR 03/22/2024 4:51 PM SPLIT AND DRUM ROOM SUPERVISOR Basil Adhikari MD LAB BLOOD ORDERABLES Fin al Result [facility] [address] Department [place] [address] * (ABNORMAL) POC Blood Gas and Chemistries, Venous - (03/22/2024 4:29 PM SPLIT AND DRUM ROOM SUPERVISOR) pH, Boyd POC 7.31(L) 7.32 - 7.45 pCO2, boyd POC 48 40 - 50 mmHg [facility] pO2, boyd POC 64(H) 35 - 42 mmHg [facility] Na, POC 129(L) 135 - 145 mmol/L [facility] K POC 4.1 3.3 - 4.9 mmol/L [facility] Comment: Interpretive Data This method is not able to assess for hemolysis, which may falsely increase potassium concentrations. If further testing is needed to evaluate this result, consider in-laboratory plasma potassium. Current Interpretive Data was last revised on 2021. Cl, POC 101 97 - 110 mmol/L [facility] Ionized Ca, POC 4.62 4.50 - 5.10 mg/dL [facility] Glucose, POC 95 70 - 199 mg/dL [facility] Lactate, POC 0.7 0.0 - 2.0 mmol/L [facility] O2Hb, Boyd POC 90.2 90.0 - 95.0 % [facility] Carboxhgb fract 1.9 0.0 - 2.9 % [facility] Methemoglobin 1.3 0.0 - 1.9 % [facility] HHb, POC 6.6(H) 0.0 - 5.0 % [facility] O2 Sat, Boyd POC (Shayne) 93(H) 68 - 77 % [facility] Total CO2, boyd POC 26 22 - 32 mmol/L [facility] Base excess, boyd POC -2.2 mmol/L [facility] HCO3, Boyd POC 23 20 - 30 mmol/L [facility] Hct, POC 30.0(L) 38.9 - 50.3 % [facility] Total Hb, POC 9.9(L) 13.0 - 17.5 g/dL [facility] Blood 03/22/2024 4:29 PM SPLIT AND DRUM ROOM SUPERVISOR 03/22/2024 4:29 PM SPLIT AND DRUM ROOM SUPERVISOR Basil Adhikari MD LAB POCT ORDERABLES - DE VICE Final Result Performing Organization Address [facility]/ZIP Co de Phone Number [facility] [address] [place] [address] * (ABNORMAL) POC Activated Clotting Time, High Range (03/22/2024 4:10 PM SPLIT AND DRUM ROOM SUPERVISOR) ACT 386(H) 87 - 138 sec Blood 03/22/2024 4:10 PM SPL[employer] AND DRUM ROOM SUPERVISOR 03/22/2024 4:10 PM SPLIT AND DRUM ROOM SUPERVISOR Basil Adhikari MD LAB BLOOD ORDERABLES Fin al Result [facility] [address] [place] [address] * (ABNORMAL) POC Activated Clotting Time, High Range (03/22/2024 4:00 PM SPLIT AND DRUM ROOM SUPERVISOR) ACT 174(H) 87 - 138 sec Blood 03/22/2024 4:00 PM SPL[employer] AND DRUM ROOM SUPERVISOR 03/22/2024 4:00 PM SPLIT AND DRUM ROOM SUPERVISOR Basil Adhikari MD LAB BLOOD ORDERABLES Fin al Result Performing Organization Address [facility] Co de Phone Number [facility] [address] [place] [address] * (ABNORMAL) POC Activated Clotting Time, High Range (03/22/2024 3:56 PM SPLIT AND DRUM ROOM SUPERVISOR) ACT 145(H) 87 - 138 sec Blood 03/22/2024 3:56 PM SPLIT AND DRUM ROOM SUPERVISOR 03/22/2024 3:56 PM SPLIT AND DRUM ROOM SUPERVISOR Basil Adhikari MD LAB BLOOD ORDERABLES Fin al Result Performing Organization Address [facility] Co de Phone Number [facility] [address] [place] [address] * (ABNORMAL) POC Activated Clotting Time, High Range (03/22/2024 3:28 PM SPLIT AND DRUM ROOM SUPERVISOR) ACT 457(H) 87 - 138 sec Blood 03/22/2024 3:28 PM SPLIT AND DRUM ROOM SUPERVISOR 03/22/2024 3:28 PM SPLIT AND DRUM ROOM SUPERVISOR Basil Adhikari MD LAB BLOOD ORDERABLES Fin al Result Performing Organization Address [facility] Co de Phone Number [facility] [address] [place] [address] * (ABNORMAL) POCT Activated clotting time, low range (03/22/2024 3:21 PM SPL[employer] AND DRUM ROOM SUPERVISOR) ACT >400(H) 123 - 168 sec Blood 03/22/2024 3:21 PM SPLIT AND DRUM ROOM SUPERVISOR 03/22/2024 3:21 PM SPLIT AND DRUM ROOM SUPERVISOR us Basil Adhikari MD LAB POCT ORDERABLES - DE VICE Final Result [facility] [address] Department [place] [address] * [place] AN ELECTIVE ENDOTRACHEAL AIRWAY, [place] AN PROCEDURE PLACEHOLDER (03/22/2024 3:08 PM SPLIT AND DRUM ROOM SUPERVISOR) Narrative Gamal Asher MD PhD - 03/22/2024 3:08 PM SPLIT AND DRUM ROOM SUPERVISOR Gamal Asher MD PhD ? 03/22/2024 ??3:09 PM Airway Patient location: OR Urgency: elective Indications for airway management: anesthesia Difficult airway: no Staff: Placed by: Anesthesiologist: Gamal Asher MD PhD Emergent airway documentation: Risks and benefits discussed: yes Consent obtained: yes Consent given by: patient Airway prep: Preoxygenated: yes Patient position: sniffing Mask difficulty assessment: 1 - vent by mask Final airway details: Final airway type: endotracheal airway Tube type: ETT ETT size: 8.0 mm Cuffed: yes Technique used for successful ETT placement: video laryngoscopy Insertion site: oral Video blade type: Dominguez Cormack-Lehane (video): grade I - full view of glottis Cuff inflated with: air ETT to lips: 22 cm Placement verified by: auscultation and CO2 detection Airway secured with: silk tape Number of attempts: 1 us Gamal Asher MD PhD ANESTHESIA ORDERABLES Fi nal Result * Prepare RBC: 2 Units (03/22/2024 2:42 PM [employer]UM ROOM SUPERVISOR) Product code [id number] Unit Number [id number] 8-* [facility] Product Blood Type OPOS [facility] Dispense Status RETURNED [facility] Product code [id number] [facility] Unit Number [id number] 6-K [facility] Product Blood Type OPOS [facility] Dispense Status RETURNED [facility] Blood 03/22/2024 2:42 PM [employer] ROOM SUPERVISOR Narrative [facility] - 03/26/2024 7:31 AM [employer] ROOM SUPERVISOR Are special requirements needed? (All products are leukoreduced and CMV- safe)- >No Date required:-[id number] LRRBC # of [id number] Reasons:-Intra-op transfusion} us Gamal Asher MD PhD BLOOD BANK PRODUCT ORDER AMARA Final Result [facility] [address] Department [place] [address] * XR Chest 1 View - Portable - in AM (03/22/2024 7:26 AM [employer] ROOM SUPERVISOR) Anatomical Region Laterality Modality Body, Chest N/A Computed Radiogr aphy 03/22/2024 8:08 AM [employer]UM ROOM SUPERVISOR Impressions 03/22/2024 8:08 AM [employer] ROOM SUPERVISOR Comparison is made to 03/21/2024. ??Right jugular catheter tip located within the superior cavoatrial junction. ??There are transverse sternotomy wires, median sternotomy wires, and replaced aortic valve. In compared to the prior examination there is no substantial change in small left greater than right pleural effusions with basilar opacities favored represent atelectasis. ??No pneumothorax or pneumonic consolidation. ??Stable heart size. Electronically signed by: Ruy Hager M.D. Narrative 03/22/2024 8:08 AM [employer] ROOM SUPERVISOR Examination: Chest 1 view Procedure Note Ruy Hager MD - 03/22/2024 Examination: Chest 1 view IMPRESSION: Comparison is made to 03/21/2024. Right jugular catheter tip located within the superior cavoatrial junction. There are transverse sternotomy wires, median sternotomy wires, and replaced aortic valve. In compared to the prior examination there is no substantial change in small left greater than right pleural effusions with basilar opacities favored represent atelectasis. No pneumothorax or pneumonic consolidation. Stable heart size. Electronically signed by: Ruy Hager M.D. us Ale Mcknight NP IMG XR PROCEDURES Final Result * eGFR (03/22/2024 1:34 AM [employer] ROOM SUPERVISOR) Pathologist [facility] eGFR 73 >=60 mL/min/1. 73 m2 Comment: Interpretive Data Reference Interval Normal ?>/= 90 mL/min/1.73m2 Mildly decreased* ? 60 - 89 mL/min/1.73m2 Mildly to moderately decreased ?45 - 59 mL/min/1.73m2 Moderately to severely decreased ??30 - 44 mL/min/1.73m2 Severely decreased ?15 - 29 mL/min/1.73m2 Kidney Failure ?< 15 ??mL/min/1.73m2 *Relative to young adult level Estimated glomerular filtration rate is determined by the 2020 CKD-EPI equation recommended by the National Kidney Foundation (A Unifying Approach to GFR Estimation: Recommendations of the NKF-ASK Task Force on Reassessing the Inclusion of Race in Diagnosing Kidney Disease, JASN 2020). The CKD-EPI equation should not be used for patients with unstable renal function and has not been validated in children and those over 70. Current interpretive data was last reviewed 2021. Blood 03/22/2024 1:34 AM [employer] ROOM SUPERVISOR 03/22/2024 2:00 AM [employer] ROOM SUPERVISOR us Brenda Mayberry NP LAB BLOOD ORDERABLES Final Result [facility] [address] Department [place] [address] * (ABNORMAL) CBC without differential (03/22/2024 1:34 AM S[employer] ROOM SUPERVISOR) [facility] WBC 9.0 3.8 - 9.9 K/cumm Hgb 10.2(L) 13.0 - 17.5 g/dL [facility] Hct 30.6(L) 38.9 - 50.3 % [facility] Plt 111(L) 150 - 400 K/cumm [facility] MPV 10.1 9.1 - 12.3 fL [facility] RBC 3.41(L) 4.30 - 5.80 M/cumm [facility] MCV 89.7 81.3 - 96.4 fL [facility] MCH 29.9 27.1 - 33.3 pg [facility] MCHC 33.3 32.3 - 35.7 g/dL [facility] RDW CV 12.8 11.1 - 14.9 % [facility] RDW SD 42.0 35.7 - 48.1 fL [facility] NRBC abs 0.00 0.00 - 0.01 K/cumm [facility] Blood 03/22/2024 1:34 AM [employer] ROOM SUPERVISOR 03/22/2024 2:00 AM [employer] ROOM SUPERVISOR Ale Mcknight NP LAB BLOOD ORDERABLES Fin al Result Performing Organization Address City/[facility]/ZIP Co de Phone Number [facility] [address] [place] [address] * Type and screen (03/22/2024 1:34 AM [employer] ROOM SUPERVISOR) Alex, indirect Negative ABO Rh O Positive [facility] Blood 03/22/2024 1:34 AM [employer] ROOM SUPERVISOR 03/22/2024 1:56 AM [employer] ROOM SUPERVISOR Narrative [facility] - 03/22/2024 2:43 AM [employer] ROOM SUPERVISOR Has the patient had Daratumumab or Isatuximab in the past 6 months?->Unknown Ale Mcknight NP LAB BLOOD BANK TEST ORDE RABLES Final Result Performing Organization Address City/[facility]/ZIP Co de Phone Number [facility] [address] [place] [address] * Magnesium (03/22/2024 1:34 AM S[employer] ROOM SUPERVISOR) Magnesium 1.9 1.4 - 2.5 mg/dL Blood 03/22/2024 1:34 AM [employer] ROOM SUPERVISOR 03/22/2024 2:00 AM S[employer] AND [employer]UM ROOM SUPERVISOR us Ale Mcknight SUPERVISOR TYPE BAR AND SEGMENT LAB BLOOD ORDERABLES Fin al Result [facility] [address] Department [place] [address] * (ABNORMAL) Renal function panel (03/22/2024 1:34 AM S[employer] ROOM SUPERVISOR) Pathologist [facility] Sodium 130(L) 135 - 145 mmol/L Potassium, pl 4.1 3.3 - 4.9 mmol/L [facility] Chloride 96(L) 97 - 110 mmol/L [facility] CO2 21(L) 22 - 32 mmol/L [facility] Anion gap 13 2 - 15 mmol/L [facility] BUN 17 6 - 25 mg/dL [facility] Creatinine 1.01 0.80 - 1.30 mg/dL [facility] Glucose 94 70 - 199 mg/dL [facility] Comment: Interpretive Data Fasting glucose >/= 126 mg/dl is diagnostic for diabetes. ?? Fasting is defined as no caloric intake for at least 8 hours. Fasting glucose between 100 mg/dl to 125 mg/dl is diagnostic of prediabetes. In a patient with classic symptoms of hyperglycemia or hyperglycemic crisis, a random glucose >/= 200 mg/dl is diagnostic for diabetes. In the absence of unequivocal hyperglycemia, results should be confirmed by repeat testing. The classification and Diagnosis of Diabetes Diabetes Care 2021; 46: S19-S40. Current interpretive data was last revised 2022. Calcium 8.3(L) 8.5 - 10.3 mg/dL [facility] Phosphorus, pl 2.8 2.3 - 4.5 mg/dL [facility] Albumin 3.2(L) 3.5 - 5.0 g/dL [facility] Blood 03/22/2024 1:34 AM [employer] ROOM SUPERVISOR 03/22/2024 2:00 AM [employer] ROOM SUPERVISOR Ale Mcknight NP LAB BLOOD ORDERABLES Fin al Result Performing Organization Address [facility]/ZIP Co de Phone Number [facility] [address] Department [place] [address] * (ABNORMAL) aPTT (03/21/2024 8:12 PM [employer] ROOM SUPERVISOR) aPTT 43(H) 28 - 38 sec Comment: Interpretive Data Heparin therapeutic range: 66.0 - 100.0 seconds. Range based on correlation with therapeutic heparin activity range of 0.3 - 0.7 Units/mL. Current interpretive data was last revised on 2022. Blood 03/21/2024 8:12 PM [employer] ROOM SUPERVISOR 03/21/2024 8:17 PM S[employer] AND [employer]UM ROOM SUPERVISOR Narrative [facility] - 03/21/2024 8:26 PM S[employer] AND [employer] ROOM SUPERVISOR STAT PTT timing: - Draw 6 hours after heparin infusion initiation - Draw 6 hours after every dose change until 2 consecutive PTTs are therapeutic - Once 2 consecutive PTTs are therapeutic, obtain with daily labs until infusion is discontinued - - Restart every 6 hour lab draws and follow instructions accordingly if PTT is outside of therapeutic range Do not draw lab from IV line that is actively infusing heparin. ??Use the opposite arm. ??If arm with actively infusing heparin must be used, pause the infusion for at least 2 minutes, and draw specimen below the IV site. ??For patients with a central venous catheter (CVC), lab must be drawn peripherally (not from CVC). Benny Aranda PA LAB BLOOD ORDERABLES Final R esult Performing Organization Address City/[facility]/ZIP Co de Phone Number [facility] [address] [place] [place] [address] * (ABNORMAL) aPTT (03/21/2024 12:40 PM [employer] ROOM SUPERVISOR) aPTT 47(H) 28 - 38 sec Comment: Interpretive Data Heparin therapeutic range: 66.0 - 100.0 seconds. Range based on correlation with therapeutic heparin activity range of 0.3 - 0.7 Units/mL. Current interpretive data was last revised on 2022. Blood 03/21/2024 12:4 0 PM [employer] ROOM SUPERVISOR 03/21/2024 12:44 PM [employer] AND [employer]UM ROOM SUPERVISOR Narrative [facility] - 03/21/2024 1:11 PM S[employer] ROOM SUPERVISOR STAT PTT timing: - Draw 6 hours after heparin infusion initiation - Draw 6 hours after every dose change until 2 consecutive PTTs are therapeutic - Once 2 consecutive PTTs are therapeutic, obtain with daily labs until infusion is discontinued - - Restart every 6 hour lab draws and follow instructions accordingly if PTT is outside of therapeutic range Do not draw lab from IV line that is actively infusing heparin. ??Use the opposite arm. ??If arm with actively infusing heparin must be used, pause the infusion for at least 2 minutes, and draw specimen below the IV site. ??For patients with a central venous catheter (CVC), lab must be drawn peripherally (not from CVC). us Benny SOLIS LAB BLOOD ORDERABLES Final R esult Performing Organization Address [facility]/ZIP Co de Phone Number [facility] [address] [place] [place] [address] * aPTT (03/21/2024 10:35 AM [employer] ROOM SUPERVISOR) [facility] Signature aPTT 37 28 - 38 sec Comment: Interpretive Data Heparin therapeutic range: 66.0 - 100.0 seconds. Range based on correlation with therapeutic heparin activity range of 0.3 - 0.7 Units/mL. Current interpretive data was last revised on 2022. Blood 03/21/2024 10:3 5 AM [employer] ROOM SUPERVISOR 03/21/2024 10:41 AM S[employer] AND DRUM ROOM SUPERVISOR Basil Adhikari MD LAB BLOOD ORDERABLES Fin al Result Performing Organization Address [facility]/ZIP Co de Phone Number [facility] [address] Department [place] [employer] [place] [address] * XR Chest 1 View - Portable - in AM (03/21/2024 7:43 AM S[employer] ROOM SUPERVISOR) Anatomical Region Laterality Modality Body, Chest N/A Computed Radiogr aphy 03/21/2024 7:47 AM S[employer] ROOM SUPERVISOR Impressions 03/21/2024 7:47 AM [employer] ROOM SUPERVISOR Right internal jugular central venous catheter terminates in the superior cavoatrial junction. Median sternotomy. Aortic valve replacement. Calcified atherosclerotic aorta. Mild cardiomegaly is unchanged. There is bibasilar subsegmental atelectasis, unchanged from the prior examination. Questionable small left pleural effusion is also unchanged. No pneumothorax. Electronically signed by: Manuel Mike M.D. Narrative 03/21/2024 7:47 AM S[employer]UM ROOM SUPERVISOR PORTABLE CHEST RADIOGRAPH INDICATION: pleural effusion COMPARISON: 03/20/2024 VIEWS: 1 Procedure Note Manuel Mike MD - 03/21/2024 PORTABLE CHEST RADIOGRAPH INDICATION: pleural effusion COMPARISON: 03/20/2024 VIEWS: 1 IMPRESSION: Right internal jugular central venous catheter terminates in the superior cavoatrial junction. Median sternotomy. Aortic valve replacement. Calcified atherosclerotic aorta. Mild cardiomegaly is unchanged. There is bibasilar subsegmental atelectasis, unchanged from the prior examination. Questionable small left pleural effusion is also unchanged. No pneumothorax. Electronically signed by: Manuel Mike M.D. Ale Mcknight SUPERVISOR TYPE BAR AND SEGMENT IMG XR PROCEDURES Final Result * (ABNORMAL) aPTT (03/21/2024 2:27 AM S[employer] ROOM SUPERVISOR) aPTT 60(H) 28 - 38 sec Comment: Interpretive Data Heparin therapeutic range: 66.0 - 100.0 seconds. Range based on correlation with therapeutic heparin activity range of 0.3 - 0.7 Units/mL. Current interpretive data was last revised on 2022. Blood 03/21/2024 2:27 AM [employer] ROOM SUPERVISOR 03/21/2024 2:52 AM S[employer] AND [employer]UM ROOM SUPERVISOR Narrative [facility] - 03/21/2024 3:10 AM S[employer] ROOM SUPERVISOR STAT PTT timing: - Draw 6 hours after heparin infusion initiation - Draw 6 hours after every dose change until 2 consecutive PTTs are therapeutic - Once 2 consecutive PTTs are therapeutic, obtain with daily labs until infusion is discontinued - - Restart every 6 hour lab draws and follow instructions accordingly if PTT is outside of therapeutic range Do not draw lab from IV line that is actively infusing heparin. ??Use the opposite arm. ??If arm with actively infusing heparin must be used, pause the infusion for at least 2 minutes, and draw specimen below the IV site. ??For patients with a central venous catheter (CVC), lab must be drawn peripherally (not from CVC). us Benny SOLIS LAB BLOOD ORDERABLES Final R esult [facility] [address] Department [place] [address] * eGFR (03/21/2024 2:24 AM S[employer] ROOM SUPERVISOR) eGFR 77 >=60 mL/min/1. 73 m2 Comment: Interpretive Data Reference Interval Normal ?>/= 90 mL/min/1.73m2 Mildly decreased* ? 60 - 89 mL/min/1.73m2 Mildly to moderately decreased ?45 - 59 mL/min/1.73m2 Moderately to severely decreased ??30 - 44 mL/min/1.73m2 Severely decreased ?15 - 29 mL/min/1.73m2 Kidney Failure ?< 15 ??mL/min/1.73m2 *Relative to young adult level Estimated glomerular filtration rate is determined by the 2020 CKD-EPI equation recommended by the National Kidney Foundation (A Unifying Approach to GFR Estimation: Recommendations of the NKF-ASK Task Force on Reassessing the Inclusion of Race in Diagnosing Kidney Disease, JASN 202). The CKD-EPI equation should not be used for patients with unstable renal function and has not been validated in children and those over 70. Current interpretive data was last reviewed 2021. Blood 03/21/2024 2:24 AM S[employer] ROOM SUPERVISOR 03/21/2024 2:52 AM S[employer] AND DRUM ROOM SUPERVISOR Brenda Mayberry SUPERVISOR TYPE BAR AND SEGMENT LAB BLOOD ORDERABLES Final Result Performing Organization Address [facility] Co de Phone Number [facility] [address] Department [employer] [place], [place] [id number] * (ABNORMAL) CBC without differential (03/21/2024 2:24 AM S[employer] ROOM SUPERVISOR) WBC 10.9(H) 3.8 - 9.9 K/cumm Hgb 11.1(L) 13.0 - 17.5 g/dL [facility] Hct 32.9(L) 38.9 - 50.3 % [facility] Plt 97(L) 150 - 400 K/cumm [facility] MPV 10.2 9.1 - 12.3 fL [facility] RBC 3.68(L) 4.30 - 5.80 M/cumm [facility] MCV 89.4 81.3 - 96.4 fL [facility] MCH 30.2 27.1 - 33.3 pg [facility] MCHC 33.7 32.3 - 35.7 g/dL [facility] RDW CV 12.7 11.1 - 14.9 % [facility] RDW SD 41.5 35.7 - 48.1 fL [facility] NRBC abs 0.00 0.00 - 0.01 K/cumm [facility] Blood 03/21/2024 2:24 AM S[employer] AND DRUM ROOM SUPERVISOR 03/21/2024 2:52 AM S[employer] AND DRUM ROOM SUPERVISOR us Ale Mcknight SUPERVISOR TYPE BAR AND SEGMENT LAB BLOOD ORDERABLES Fin al Result Performing Organization Address [facility]/ZIP Co de Phone Number [facility] [address] Department of [employer] [place], [place] [id number] * Magnesium (03/21/2024 2:24 AM S[employer] DR[employer] ROOM SUPERVISOR) Magnesium 1.8 1.4 - 2.5 mg/dL Blood 03/21/2024 2:24 AM [employer] ROOM SUPERVISOR 03/21/2024 2:52 AM S[employer] AND DRUM ROOM SUPERVISOR Ale Mcknight SUPERVISOR TYPE BAR AND SEGMENT LAB BLOOD ORDERABLES Fin al Result [facility] [address] Department [place] [address] * (ABNORMAL) Renal function panel (03/21/2024 2:24 AM S[employer] AND DR[employer] ROOM SUPERVISOR) Sodium 128(L) 135 - 145 mmol/L Potassium, pl 4.0 3.3 - 4.9 mmol/L [facility] Chloride 96(L) 97 - 110 mmol/L [facility] CO2 21(L) 22 - 32 mmol/L [facility] Anion gap 11 2 - 15 mmol/L [facility] BUN 18 6 - 25 mg/dL [facility] Creatinine 0.97 0.80 - 1.30 mg/dL [facility] Glucose 108 70 - 199 mg/dL [facility] Comment: Interpretive Data Fasting glucose >/= 126 mg/dl is diagnostic for diabetes. ?? Fasting is defined as no caloric intake for at least 8 hours. Fasting glucose between 100 mg/dl to 125 mg/dl is diagnostic of prediabetes. In a patient with classic symptoms of hyperglycemia or hyperglycemic crisis, a random glucose >/= 200 mg/dl is diagnostic for diabetes. In the absence of unequivocal hyperglycemia, results should be confirmed by repeat testing. The classification and Diagnosis of Diabetes Diabetes Care 2021; 46: S19-S40. Current interpretive data was last revised 2022. Calcium 8.4(L) 8.5 - 10.3 mg/dL [facility] Phosphorus, pl 1.8(L) 2.3 - 4.5 mg/dL [facility] Albumin 3.4(L) 3.5 - 5.0 g/dL [facility] Blood 03/21/2024 2:24 AM S[employer] ROOM SUPERVISOR 03/21/2024 2:52 AM S[employer] AND DRUM ROOM SUPERVISOR Ale Mcknight NP LAB BLOOD ORDERABLES Fin al Result Performing Organization Address [facility] Co de Phone Number [facility] [address] Department [employer] [place], [place] [id number] * (ABNORMAL) aPTT (03/20/2024 4:57 PM S[employer] AND DRUM ROOM SUPERVISOR) aPTT 48(H) 28 - 38 sec Comment: Interpretive Data Heparin therapeutic range: 66.0 - 100.0 seconds. Range based on correlation with therapeutic heparin activity range of 0.3 - 0.7 Units/mL. Current interpretive data was last revised on 2022. Blood 03/20/2024 4:57 PM S[employer] AND DRUM ROOM SUPERVISOR 03/20/2024 5:16 PM S[employer] AND DRUM ROOM SUPERVISOR Narrative [facility] - 03/20/2024 5:33 PM S[employer] AND DRUM ROOM SUPERVISOR STAT PTT timing: - Draw 6 hours after heparin infusion initiation - Draw 6 hours after every dose change until 2 consecutive PTTs are therapeutic - Once 2 consecutive PTTs are therapeutic, obtain with daily labs until infusion is discontinued - - Restart every 6 hour lab draws and follow instructions accordingly if PTT is outside of therapeutic range Do not draw lab from IV line that is actively infusing heparin. ??Use the opposite arm. ??If arm with actively infusing heparin must be used, pause the infusion for at least 2 minutes, and draw specimen below the IV site. ??For patients with a central venous catheter (CVC), lab must be drawn peripherally (not from CVC). Benny Aranda PA LAB BLOOD ORDERABLES Final R esult Performing Organization Address City/[facility]/ZIP Co de Phone Number [facility] [address] [place] [place] [address] * aPTT (03/20/2024 9:27 AM S[employer] DR[employer] ROOM SUPERVISOR) aPTT 34 28 - 38 sec Comment: Interpretive Data Heparin therapeutic range: 66.0 - 100.0 seconds. Range based on correlation with therapeutic heparin activity range of 0.3 - 0.7 Units/mL. Current interpretive data was last revised on 2022. Blood 03/20/2024 9:27 AM [employer]UM ROOM SUPERVISOR 03/20/2024 9:41 AM S[employer] AND DRUM ROOM SUPERVISOR Narrative [facility] 03/20/2024 9:57 AM SPL[employer] AND DRUM ROOM SUPERVISOR Baseline prior to heparin initiation Benny SOLIS LAB BLOOD ORDERABLES Final R esult Performing Organization Address City/[facility] Co de Phone Number [facility] [address] Department [employer] [place], [place] [id number] * (ABNORMAL) Protime-INR (03/20/2024 9:27 AM S[employer] AND DRUM ROOM SUPERVISOR) PT 14.9(H) 9.7 - 13.0 sec INR 1.37(H) 0.90 - 1.20 [facility] Comment: Interpretive data Oral anticoagulant therapeutic ranges: Venous thromboembolism prophylaxis or treatment: 2.0-3.0 CARDIOLOGY Standard range: 2.0-3.0 High-intensity range: 2.5-3.5 Refer to indication-specific guidelines for appropriate target ranges for prosthetic heart valve replacement. Current interpretive data was last revised on 2019. Blood 03/20/2024 9:27 AM S[employer] AND DRUM ROOM SUPERVISOR 03/20/2024 9:41 AM S[employer] AND DRUM ROOM SUPERVISOR Narrative [facility] - 03/20/2024 9:57 AM S[employer] AND DRUM ROOM SUPERVISOR Baseline prior to heparin initiation Benny SOLIS LAB BLOOD ORDERABLES Final R esult Performing Organization Address City/[facility] Co de Phone Number [facility] [address] [place] [place] [address] * XR Chest 1 View - Portable - in AM (03/20/2024 9:17 AM S[employer] AND DRUM ROOM SUPERVISOR) Anatomical Region Laterality Modality Body, Chest N/A Computed Radiogr aphy 03/20/2024 2:5 9 PM S[employer] AND DRUM ROOM SUPERVISOR Impressions 03/20/2024 2:59 PM S[employer] AND DRUM ROOM SUPERVISOR Comparison is made to prior examination 03/19/2024. Unchanged median sternotomy wires and aortic valve replacement. Right internal jugular central venous catheter tip overlies superior caval atrial junction. ??Surgical drain is in place. ??Stable to minimally increased bibasilar opacities favored represent atelectasis with possible small left pleural effusion. ??No pneumothorax. Unchanged cardiomegaly. Electronically signed by: Gian Henriquez M.D. Narrative 03/20/2024 2:59 PM S[employer] AND DRUM ROOM SUPERVISOR EXAMINATION: XR CHEST 1 VIEW Procedure Note Gian Henriquez MD - 03/20/2024 EXAMINATION: XR CHEST 1 VIEW IMPRESSION: Comparison is made to prior examination 03/19/2024. Unchanged median sternotomy wires and aortic valve replacement. Right internal jugular central venous catheter tip overlies superior caval atrial junction. Surgical drain is in place. Stable to minimally increased bibasilar opacities favored represent atelectasis with possible small left pleural effusion. No pneumothorax. Unchanged cardiomegaly. Electronically signed by: Gian Henriquez M.D. Ale Mcknight SUPERVISOR TYPE BAR AND SEGMENT IMG XR PROCEDURES Final Result * eGFR (03/20/2024 1:03 AM [employer] DR[employer] ROOM SUPERVISOR) eGFR 72 >=60 mL/min/1. 73 m2 Comment: Interpretive Data Reference Interval Normal ?>/= 90 mL/min/1.73m2 Mildly decreased* ? 60 - 89 mL/min/1.73m2 Mildly to moderately decreased ?45 - 59 mL/min/1.73m2 Moderately to severely decreased ??30 - 44 mL/min/1.73m2 Severely decreased ?15 - 29 mL/min/1.73m2 Kidney Failure ?< 15 ??mL/min/1.73m2 *Relative to young adult level Estimated glomerular filtration rate is determined by the 2020 CKD-EPI equation recommended by the National Kidney Foundation (A Unifying Approach to GFR Estimation: Recommendations of the [employer] Task Force on Reassessing the Inclusion of Race in Diagnosing Kidney Disease, JASN 202). The CKD-EPI equation should not be used for patients with unstable renal function and has not been validated in children and those over 70. Current interpretive data was last reviewed 2021. Blood 03/20/2024 1:03 AM [employer]UM ROOM SUPERVISOR 03/20/2024 1:33 AM [employer] AND DRUM ROOM SUPERVISOR Brenda Mayberry SUPERVISOR TYPE BAR AND SEGMENT LAB BLOOD ORDERABLES Final Result Performing Organization Address City/[facility]/ZIP Co de Phone Number [facility] [address] [facility] [employer] [place], [place] [id number] * Calcium, ionized (03/20/2024 1:03 AM S[employer] AND DRUM ROOM SUPERVISOR) Calcium, Ionized 4.80 4.50 - 5.10 mg/dL Blood 03/20/2024 1:03 AM [employer]UM ROOM SUPERVISOR 03/20/2024 1:11 AM [employer] AND DRUM ROOM SUPERVISOR Brenda Mayberry NP LAB BLOOD ORDERABLES Final Result Performing Organization Address City/[facility]/ZIP Co de Phone Number [facility] [address] [place] [place] [address] * (ABNORMAL) CBC without differential (03/20/2024 1:03 AM [employer] ROOM SUPERVISOR) WBC 12.7(H) 3.8 - 9.9 K/cumm Hgb 12.2(L) 13.0 - 17.5 g/dL [facility] Hct 35.9(L) 38.9 - 50.3 % [facility] Plt 104(L) 150 - 400 K/cumm [facility] MPV 10.0 9.1 - 12.3 fL [facility] RBC 4.04(L) 4.30 - 5.80 M/cumm [facility] MCV 88.9 81.3 - 96.4 fL [facility] MCH 30.2 27.1 - 33.3 pg [facility] MCHC 34.0 32.3 - 35.7 g/dL [facility] RDW CV 12.8 11.1 - 14.9 % [facility] RDW SD 41.5 35.7 - 48.1 fL [facility] NRBC abs 0.00 0.00 - 0.01 K/cumm [facility] Blood 03/20/2024 1:03 AM [employer] ROOM SUPERVISOR 03/20/2024 1:33 AM [employer] AND DRUM ROOM SUPERVISOR Ale Mcknight SUPERVISOR TYPE BAR AND SEGMENT LAB BLOOD ORDERABLES Fin al Result Performing Organization Address City/[facility]/ZIP Co de Phone Number [facility] [address] [facility] [place] [employer] [place] [address] * Magnesium (03/20/2024 1:03 AM S[employer] AND DRUM ROOM SUPERVISOR) [facility] Magnesium 2.0 1.4 - 2.5 mg/dL Blood 03/20/2024 1:03 AM [employer] ROOM SUPERVISOR 03/20/2024 1:33 AM S[employer] AND DRUM ROOM SUPERVISOR Ale Mcknight SUPERVISOR TYPE BAR AND SEGMENT LAB BLOOD ORDERABLES Fin al Result Performing Organization Address [facility] Co de Phone Number [facility] [address] [place] [place] [address] * (ABNORMAL) Renal function panel (03/20/2024 1:03 AM S[employer] DRUM ROOM SUPERVISOR) Pathologist [facility] Sodium 132(L) 135 - 145 mmol/L Potassium, pl 4.5 3.3 - 4.9 mmol/L [facility] Chloride 99 97 - 110 mmol/L [facility] CO2 21(L) 22 - 32 mmol/L [facility] Anion gap 12 2 - 15 mmol/L [facility] BUN 17 6 - 25 mg/dL [facility] Creatinine 1.03 0.80 - 1.30 mg/dL [facility] Glucose 119 70 - 199 mg/dL [facility] Comment: Interpretive Data Fasting glucose >/= 126 mg/dl is diagnostic for diabetes. ?? Fasting is defined as no caloric intake for at least 8 hours. Fasting glucose between 100 mg/dl to 125 mg/dl is diagnostic of prediabetes. In a patient with classic symptoms of hyperglycemia or hyperglycemic crisis, a random glucose >/= 200 mg/dl is diagnostic for diabetes. In the absence of unequivocal hyperglycemia, results should be confirmed by repeat testing. The classification and Diagnosis of Diabetes Diabetes Care 2021; 46: S19-S40. Current interpretive data was last revised 2022. Calcium 8.8 8.5 - 10.3 mg/dL [facility] Phosphorus, pl 2.7 2.3 - 4.5 mg/dL [facility] Albumin 3.6 3.5 - 5.0 g/dL [facility] Blood 03/20/2024 1:03 AM [employer] DRUM ROOM SUPERVISOR 03/20/2024 1:33 AM S[employer] AND DRUM ROOM SUPERVISOR us Ale Mcknight SUPERVISOR TYPE BAR AND SEGMENT LAB BLOOD ORDERABLES Fin al Result Performing Organization Address City/[facility]/ZIP Co de Phone Number [facility] [address] Department [place] [address] * Prepare RBC: 2 Units (03/19/2024 4:56 PM [employer] DR[employer] ROOM SUPERVISOR) Product code [id number] [facility] Unit Number [id number] 2-F [facility] Product Blood Type OPOS [facility] Dispense Status RETURNED [facility] Product code [id number] Unit Number [id number] [id number] [facility] Product Blood Type OS [facility] Dispense Status RETURNED [facility] Blood 03/19/2024 4:56 PM S[employer] DRUM ROOM SUPERVISOR Narrative [facility] - 03/19/2024 5:48 PM [employer] DRUM ROOM SUPERVISOR Specify Procedure:->iliac stent Are special requirements needed? (All products are leukoreduced and CMV- safe)- >No Date required:-[id number] LRRBC # of [id number] Reasons:-Hold for procedure (specify procedure)} us Basil Adhikari MD BLOOD BANK PRODUCT ORDER AMARA Final Result Performing Organization Address [facility]/ZIP Co de Phone Number [facility] [address] Department [place] [address] * CTA Abdomen Pelvis (03/19/2024 9:06 AM S[employer] DRUM ROOM SUPERVISOR) Anatomical Region Laterality Modality Body N/A Computed Tomogra phy 03/19/2024 12:2 8 PM [employer]UM ROOM SUPERVISOR Impressions 03/19/2024 12:49 PM S[employer] AND DRUM ROOM SUPERVISOR 1. ??Left common iliac artery aneurysm measuring 46 x 46 mm with poorly defined surrounding soft tissue stranding, not significantly changed from 11/05/2023,, possibly indicating some degree of aneurysmal instability. 2. ??Infrarenal abdominal aortic aneurysm measuring 34 x 34 mm. 3. 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 Dictated by: Suresh Sousa M.D. The radiology attending physician has personally reviewed this study, and had reviewed and/or edited this written report and agrees with it. Electronically signed by: Josr Lindsey M.D. Narrative 03/19/2024 12:49 PM [employer] DRUM ROOM SUPERVISOR EXAMINATION: CT ANGIOGRAPHY OF THE ABDOMEN AND PELVIS WITH AND WITHOUT CONTRAST HISTORY: Bilateral iliac artery aneurysms. 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 TECHNIQUE: CT angiography of the abdomen and pelvis was performed prior to and following the uneventful intravenous administration of 90 ml Optiray-350 using the abdomen and pelvis angiography protocol. Vascular 3D images were generated on a dedicated workstation and also interpreted. COMPARISON: CTA chest abdomen pelvis 11/05/2023 FINDINGS: VASCULAR FINDINGS: Abdominal Aorta and Branches: Moderate to severe diffuse atherosclerotic calcifications. Celiac axis: Mild stenosis proximally SMA: Mild stenosis proximally ADRIANE: no significant stenosis Right renal vessels: no significant stenosis. Accessory artery. Left renal vessels: no significant stenosis Infrarenal aorta: Tortuosity of the infrarenal abdominal aortic aneurysm measuring up to 34 x 34 mm on the reformatted sequences. Pelvic Vessels: R. Common iliac artery: ??no significant stenosis. ??Distal aneurysm measuring up to 25 mm. R. External iliac artery: ??Tortuous without significant stenosis. Diffusely ectatic measuring up to 17 mm. R. Internal iliac artery: ??Mild diffuse ectasia. Moderate stenosis prior to its bifurcation. L. Common iliac artery: ??Saccular aneurysm measuring up to 46 x 46 mm using double oblique technique. Suboptimally assessed stranding present adjacent to the aneurysm sac without pily perforation/rupture. Mild dilation of the adjacent common iliac vein. L. External iliac artery: ??no significant stenosis L. Internal iliac artery: ??no significant stenosis NONVASCULAR FINDINGS: Trace pleural effusions with overlying atelectasis. Cardiomegaly with dilation of the right atrium and nondependent free air likely secondary to bolus. Prosthetic aortic valve. ??Pericardial drain with pneumopericardium and postoperative air within the chest wall subcutaneous tissues. Postoperative changes of median sternotomy with incomplete apposition of the cortical surfaces. ABDOMEN/PELVIS: The liver, pancreas, spleen, adrenal glands, and kidneys are normal. Mild distention of the gallbladder without pericholecystic inflammatory changes or fluid. Stomach and duodenum are normal. No small bowel wall thickening or evidence of obstruction. ??Colon is normal in appearance. Appendix is not well visualized. There is no mesenteric or retroperitoneal lymphadenopathy. There is no intra-abdominal free air. Trace ascites. Urinary bladder is decompressed with indwelling Gupta catheter and nondependent postprocedural air. Prostate is normal. No iliac, inguinal, or pelvic lymphadenopathy. MUSCULOSKELETAL: No acute osseus abnormality. ??Lumbar scoliosis. ??Old L2 superior endplate compression deformity. No suspicious lytic or blastic osseous lesion. Multilevel spine degenerative changes. ?? Adductor complex intramuscular lipoma. Procedure Note Josr Lindsey MD - 03/19/2024 EXAMINATION: CT ANGIOGRAPHY OF THE ABDOMEN AND PELVIS WITH AND WITHOUT CONTRAST HISTORY: Bilateral iliac artery aneurysms. 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 TECHNIQUE: CT angiography of the abdomen and pelvis was performed prior to and following the uneventful intravenous administration of 90 ml Optiray-350 using the abdomen and pelvis angiography protocol. Vascular 3D images were generated on a dedicated workstation and also interpreted. COMPARISON: CTA chest abdomen pelvis 11/05/2023 FINDINGS: VASCULAR FINDINGS: Abdominal Aorta and Branches: Moderate to severe diffuse atherosclerotic calcifications. Celiac axis: Mild stenosis proximally SMA: Mild stenosis proximally ADRIANE: no significant stenosis Right renal vessels: no significant stenosis. Accessory artery. Left renal vessels: no significant stenosis Infrarenal aorta: Tortuosity of the infrarenal abdominal aortic aneurysm measuring up to 34 x 34 mm on the reformatted sequences. Pelvic Vessels: R. Common iliac artery: no significant stenosis. Distal aneurysm measuring up to 25 mm. R. External iliac artery: Tortuous without significant stenosis. Diffusely ectatic measuring up to 17 mm. R. Internal iliac artery: Mild diffuse ectasia. Moderate stenosis prior to its bifurcation. L. Common iliac artery: Saccular aneurysm measuring up to 46 x 46 mm using double oblique technique. Suboptimally assessed stranding present adjacent to the aneurysm sac without pily perforation/rupture. Mild dilation of the adjacent common iliac vein. L. External iliac artery: no significant stenosis L. Internal iliac artery: no significant stenosis NONVASCULAR FINDINGS: Trace pleural effusions with overlying atelectasis. Cardiomegaly with dilation of the right atrium and nondependent free air likely secondary to bolus. Prosthetic aortic valve. Pericardial drain with pneumopericardium and postoperative air within the chest wall subcutaneous tissues. Postoperative changes of median sternotomy with incomplete apposition of the cortical surfaces. ABDOMEN/PELVIS: The liver, pancreas, spleen, adrenal glands, and kidneys are normal. Mild distention of the gallbladder without pericholecystic inflammatory changes or fluid. Stomach and duodenum are normal. No small bowel wall thickening or evidence of obstruction. Colon is normal in appearance. Appendix is not well visualized. There is no mesenteric or retroperitoneal lymphadenopathy. There is no intra-abdominal free air. Trace ascites. Urinary bladder is decompressed with indwelling Gupta catheter and nondependent postprocedural air. Prostate is normal. No iliac, inguinal, or pelvic lymphadenopathy. MUSCULOSKELETAL: No acute osseus abnormality. Lumbar scoliosis. Old L2 superior endplate compression deformity. No suspicious lytic or blastic osseous lesion. Multilevel spine degenerative changes. Adductor complex intramuscular lipoma. IMPRESSION: 1. 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 2. Infrarenal abdominal aortic aneurysm measuring 34 x 34 mm. 3. Diffuse tortuosity and atherosclerotic disease of the abdominal vasculature, as described above. Dictated by: Suresh Sousa M.D. The radiology attending physician has personally reviewed this study, and had reviewed and/or edited this written report and agrees with it. Electronically signed by: Josr Lindsey M.D. us Brenda Mayberry SUPERVISOR TYPE BAR AND SEGMENT IMG CT PROCEDURES Final Re sult * Potassium (03/19/2024 6:48 AM S[employer] AND DRUM ROOM SUPERVISOR) Potassium, pl 4.7 3.3 - 4.9 mmol/L Blood 03/19/2024 6:48 AM [employer] AND DRUM ROOM SUPERVISOR 03/19/2024 7:04 AM S[employer] AND DRUM ROOM SUPERVISOR Brenda Mayberry NP LAB BLOOD ORDERABLES Final Result [facility] [address] Department [place] [address] * Critical Care (03/19/2024 6:40 AM S[employer] AND DRUM ROOM SUPERVISOR) Narrative Gian Robertson MD - 03/19/2024 6:40 AM S[employer] AND DRUM ROOM SUPERVISOR Brenda Mayberry NP ? 03/19/2024 10:29 AM Critical Care Performed by: Brenda Mayberry NP Authorized by: Brenda Mayberry NP ?? CRITICAL CARE: ??Team: ??[facility] CT ??Shift: ??AM ??Level of Billing: ??Subsequent Hospital Visit Level 3 ??My time spent with this patient was 45 minutes: Critical Provider Statement: I have seen and examined the patient on this day of service. I have reviewed and confirmed the history, physical exam, laboratory, and radiographic data as documented in the ICU note. I have reviewed and discussed my treatment plan with the patient's team and other medical/risk management consultant staff. This time was in addition to and separate from care provided by other practitioners on this day of service. ?? Brenda Mayberry SUPERVISOR TYPE BAR AND SEGMENT IN CLINIC/BEDSIDE ORDERABL ES Final Result * XR Chest 1 View - Portable - in AM (03/19/2024 6:37 AM S[employer]UM ROOM SUPERVISOR) Anatomical Region Laterality Modality Body, Chest N/A Computed Radiogr aphy 03/19/2024 7:56 AM S[employer] AND DRUM ROOM SUPERVISOR Impressions 03/19/2024 7:56 AM S[employer] AND DRUM ROOM SUPERVISOR Comparison is made to prior chest radiograph dated 03/18/2024. Median sternotomy wires are unchanged compared to prior study. ??Tip of a right internal jugular central venous catheter terminates in the superior cavoatrial junction. ??There is a prosthetic aortic valve. Sternal drain is in place. Mild left basilar atelectasis is stable. ??No pneumothorax. Stable heart size. Electronically signed by: Josselin Xavier M.D. Narrative 03/19/2024 7:56 AM S[employer] AND DRUM ROOM SUPERVISOR EXAMINATION: XR CHEST 1 VIEW Procedure Note Josselin Xavier MD - 03/19/2024 EXAMINATION: XR CHEST 1 VIEW IMPRESSION: Comparison is made to prior chest radiograph dated 03/18/2024. Median sternotomy wires are unchanged compared to prior study. Tip of a right internal jugular central venous catheter terminates in the superior cavoatrial junction. There is a prosthetic aortic valve. Sternal drain is in place. Mild left basilar atelectasis is stable. No pneumothorax. Stable heart size. Electronically signed by: Josselin Xavier M.D. us Ale Mcknight SUPERVISOR TYPE BAR AND SEGMENT IMG XR PROCEDURES Final Result * POCT glucose (03/19/2024 6:01 AM S[employer] AND DRUM ROOM SUPERVISOR) Glucose, POC 110 70 - 199 mg/dL Comment: For Glucose values <35 mg/dl when Hematocrit is >60 mg/dl,the test may not accurately detect significant hypoglycemia,and testing in the Laboratory should be considered if clinically indicated. Blood 03/19/2024 6:01 AM S[employer] AND DRUM ROOM SUPERVISOR 03/19/2024 6:01 AM S[employer] AND DRUM ROOM SUPERVISOR us Basil Adhikari MD LAB POCT ORDERABLES - DE VICE Final Result [facility] [address] Department [place] [address] * POCT glucose (03/19/2024 2:13 AM S[employer] AND DRUM ROOM SUPERVISOR) Glucose, POC 111 70 - 199 mg/dL Comment: For Glucose values <35 mg/dl when Hematocrit is >60 mg/dl,the test may not accurately detect significant hypoglycemia,and testing in the Laboratory should be considered if clinically indicated. Blood 03/19/2024 2:13 AM S[employer] AND DRUM ROOM SUPERVISOR 03/19/2024 2:13 AM SPL[employer] AND DRUM ROOM SUPERVISOR Basil Adhikari MD LAB POCT ORDERABLES - DE VICE Final Result Performing Organization Address [facility] de Phone Number [facility] [address] Department [place] [address] * POCT glucose (03/19/2024 12:18 AM SPLIT AND DRUM ROOM SUPERVISOR) [facility] Glucose, POC 145 70 - 199 mg/dL Comment: For Glucose values <35 mg/dl when Hematocrit is >60 mg/dl,the test may not accurately detect significant hypoglycemia,and testing in the Laboratory should be considered if clinically indicated. Blood 03/19/2024 12:1 8 AM S[employer] AND DRUM ROOM SUPERVISOR 03/19/2024 12:18 AM SPLIT AND DRUM ROOM SUPERVISOR Basil Adhikari MD LAB POCT ORDERABLES - DE VICE Final Result Performing Organization Address [facility] de Phone Number [facility] [address] Department [place] [address] * eGFR (03/19/2024 12:04 AM SPLIT AND DRUM ROOM SUPERVISOR) Pathologist [facility] eGFR 85 >=60 mL/min/1. 73 m2 Comment: Interpretive Data Reference Interval Normal ?>/= 90 mL/min/1.73m2 Mildly decreased* ? 60 - 89 mL/min/1.73m2 Mildly to moderately decreased ?45 - 59 mL/min/1.73m2 Moderately to severely decreased ??30 - 44 mL/min/1.73m2 Severely decreased ?15 - 29 mL/min/1.73m2 Kidney Failure ?< 15 ??mL/min/1.73m2 *Relative to young adult level Estimated glomerular filtration rate is determined by the 2020 CKD-EPI equation recommended by the National [employer] (A Unifying Approach to GFR Estimation: Recommendations of the NKF-ASK Task Force on Reassessing the Inclusion of Race in Diagnosing Kidney Disease, JASN 2020). The CKD-EPI equation should not be used for patients with unstable renal function and has not been validated in children and those over 70. Current interpretive data was last reviewed 2021. Blood 03/19/2024 12:0 4 AM S[employer] AND DRUM ROOM SUPERVISOR 03/19/2024 12:58 AM SPL[employer] AND DRUM ROOM SUPERVISOR Brenda Mayberry NP LAB BLOOD ORDERABLES Final Result Performing Organization Address [facility] Co de Phone Number [facility] [address] [place] [employer] [place] [address] * (ABNORMAL) Calcium, ionized (03/19/2024 12:04 AM SPLIT AND DRUM ROOM SUPERVISOR) Pathologist [facility] Calcium, Ionized 4.47(L) 4.50 - 5.10 mg/dL Blood 03/19/2024 12:0 4 AM SPL[employer] AND DRUM ROOM SUPERVISOR 03/19/2024 12:26 AM SPL[employer] AND DRUM ROOM SUPERVISOR Brenda Mayberry NP LAB BLOOD ORDERABLES Final Result Performing Organization Address [facility] Co de Phone Number [facility] [address] [place] [employer] [place] [address] * (ABNORMAL) CBC without differential (03/19/2024 12:04 AM SPL[employer] AND DRUM ROOM SUPERVISOR) WBC 8.7 3.8 - 9.9 K/cumm Hgb 12.5(L) 13.0 - 17.5 g/dL [facility] Hct 36.8(L) 38.9 - 50.3 % [facility] Plt 103(L) 150 - 400 K/cumm [facility] MPV 10.4 9.1 - 12.3 fL [facility] RBC 4.14(L) 4.30 - 5.80 M/cumm [facility] MCV 88.9 81.3 - 96.4 fL [facility] MCH 30.2 27.1 - 33.3 pg [facility] MCHC 34.0 32.3 - 35.7 g/dL [facility] RDW CV 12.6 11.1 - 14.9 % [facility] RDW SD 41.0 35.7 - 48.1 fL [facility] NRBC abs 0.00 0.00 - 0.01 K/cumm [facility] Blood 03/19/2024 12:0 4 AM SPL[employer] AND DRUM ROOM SUPERVISOR 03/19/2024 12:58 AM SPL[employer] AND DRUM ROOM SUPERVISOR Ale Mcknight SUPERVISOR TYPE BAR AND SEGMENT LAB BLOOD ORDERABLES Fin al Result Performing Organization Address [facility] Co de Phone Number [facility] [address] [place] [place] [address] * Magnesium (03/19/2024 12:04 AM SPLIT AND DRUM ROOM SUPERVISOR) [facility] Magnesium 2.0 1.4 - 2.5 mg/dL Blood 03/19/2024 12:0 4 AM SPLIT AND DRUM ROOM SUPERVISOR 03/19/2024 12:58 AM SPLIT AND DRUM ROOM SUPERVISOR Ale Mcknight SUPERVISOR TYPE BAR AND SEGMENT LAB BLOOD ORDERABLES Fin al Result Performing Organization Address [facility] Co de Phone Number [facility] [address] [facility] [place] [place] [address] * (ABNORMAL) Renal function panel (03/19/2024 12:04 AM SPL[employer] AND DRUM ROOM SUPERVISOR) Sodium 131(L) 135 - 145 mmol/L Potassium, pl 5.1(H) 3.3 - 4.9 mmol/L [facility] Comment:Hemolyzed; potassium value may be falsely elevated by as much as 0.6 - 1.0 mmol/L. Suggest redraw and reanalysis Chloride 102 97 - 110 mmol/L [facility] CO2 18(L) 22 - 32 mmol/L [facility] Anion gap 11 2 - 15 mmol/L [facility] BUN 12 6 - 25 mg/dL [facility] Creatinine 0.88 0.80 - 1.30 mg/dL [facility] Glucose 146 70 - 199 mg/dL [facility] Comment: Interpretive Data Fasting glucose >/= 126 mg/dl is diagnostic for diabetes. ?? Fasting is defined as no caloric intake for at least 8 hours. Fasting glucose between 100 mg/dl to 125 mg/dl is diagnostic of prediabetes. In a patient with classic symptoms of hyperglycemia or hyperglycemic crisis, a random glucose >/= 200 mg/dl is diagnostic for diabetes. In the absence of unequivocal hyperglycemia, results should be confirmed by repeat testing. The classification and Diagnosis of Diabetes Diabetes Care 2021; 46: S19-S40. Current interpretive data was last revised 2022. Calcium 8.5 8.5 - 10.3 mg/dL [facility] Phosphorus, pl 3.7 2.3 - 4.5 mg/dL [facility] Albumin 3.7 3.5 - 5.0 g/dL [facility] Blood 03/19/2024 12:0 4 AM S[employer] AND DRUM ROOM SUPERVISOR 03/19/2024 12:58 AM S[employer] AND DRUM ROOM SUPERVISOR Ale Mcknight NP LAB BLOOD ORDERABLES Fin al Result [facility] [address] Department [place] [address] * POCT glucose (03/18/2024 9:02 PM S[employer] AND DRUM ROOM SUPERVISOR) [facility] Glucose, POC 102 70 - 199 mg/dL Comment: For Glucose values <35 mg/dl when Hematocrit is >60 mg/dl,the test may not accurately detect significant hypoglycemia,and testing in the Laboratory should be considered if clinically indicated. Blood 03/18/2024 9:02 PM S[employer] AND DRUM ROOM SUPERVISOR 03/18/2024 9:02 PM S[employer] AND DRUM ROOM SUPERVISOR Basil Adhikari MD LAB POCT ORDERABLES - DE VICE Final Result Performing Organization Address [facility]/ZIP Co de Phone Number [facility] [address] [facility] [place] [employer] [place] [address] * (ABNORMAL) Blood gas, arterial (03/18/2024 7:23 PM [employer] ROOM SUPERVISOR) pH, Art 7.45 7.35 - 7.45 PCO2, Arterial 28(L) 35 - 45 mmHg [facility] PO2, Arterial 195(H) 83 - 108 mmHg [facility] HCO3 Art (Calculated) 20 20 - 30 mmol/L [facility] BE, art -3 mmol/L [facility] Comment: Interpretive Data No Reference Range Established Current Interpretive Data was last revised on 2017 O2 Sat Art (Calculated) 100(H) 94 - 98 % [facility] Blood 03/18/2024 7:23 PM [employer] RO[employer] SUPERVISOR 03/18/2024 7:28 PM [employer] ROOM SUPERVISOR Brenda Mayberry NP LAB BLOOD ORDERABLES Final Result Performing Organization Address [facility]/ZIP Co de Phone Number [facility] [address] [facility] [place] [address] * POCT glucose (03/18/2024 7:12 PM [employer] ROOM SUPERVISOR) Glucose, POC 114 70 - 199 mg/dL Comment: For Glucose values <35 mg/dl when Hematocrit is >60 mg/dl,the test may not accurately detect significant hypoglycemia,and testing in the Laboratory should be considered if clinically indicated. Blood 03/18/2024 7:1 2 PM [employer] ROOM SUPERVISOR 03/18/2024 7:12 PM [employer] ROOM SUPERVISOR Basil Adhikari MD LAB POCT ORDERABLES - DE VICE Final Result Performing Organization Address City/[facility]/ZIP Co de Phone Number [facility] [address] [place] [address] * Critical Care (03/18/2024 6:39 PM [employer] ROOM SUPERVISOR) Narrative Gian Robertson MD - 03/18/2024 6:39 PM [employer] ROOM SUPERVISOR Roderick Couch DNP ? 03/19/2024 ??5:10 AM Critical Care Performed by: Roderick Couch DNP Authorized by: Roderick Couch DNP ?? CRITICAL CARE: ??Team: ??[facility] CT ??Shift: ??PM ??Level of Billing: ??Subsequent Hospital Visit Level 3 ??My time spent with this patient was 50 minutes: Critical Provider Statement: I have seen and examined the patient on this day of service. I have reviewed and confirmed the history, physical exam, laboratory, and radiographic data as documented in the ICU note. I have reviewed and discussed my treatment plan with the patient's team and other medical/risk management consultant staff. This time was in addition to and separate from care provided by other practitioners on this day of service. ?? us Roderick Couch DNP IN CLINIC/BEDSIDE OR DERABLES Final Result * POCT glucose (03/18/2024 6:07 PM [employer] ROOM SUPERVISOR) [facility] Signature Glucose, POC 82 70 - 199 mg/dL Comment: For Glucose values <35 mg/dl when Hematocrit is >60 mg/dl,the test may not accurately detect significant hypoglycemia,and testing in the Laboratory should be considered if clinically indicated. Blood 03/18/2024 6:07 PM [employer] ROOM SUPERVISOR 03/18/2024 6:07 PM [employer] ROOM SUPERVISOR us Basil Adhikari MD LAB POCT ORDERABLES - DE VICE Final Result [facility] [address] Department [place] [address] * XR Chest 1 View - Portable (03/18/2024 4:41 PM [employer] ROOM SUPERVISOR) Anatomical Region Laterality Modality Body, Chest N/A Computed Radiogr aphy 03/18/2024 6:28 PM [employer] ROOM SUPERVISOR Impressions 03/18/2024 6:28 PM [employer] ROOM SUPERVISOR FINDINGS/IMPRESSION: Postoperative changes of ascending aortic replacement is seen with sternotomy wires, and prosthetic aortic valve in place. A right IJ central venous catheter tip terminates in the superior vena cava. ??The right IJ [place]-Christoph catheter terminates in the main pulmonary artery. ??Mediastinal drains are seen. ??Bilateral shoulder arthroplasties are seen. ??Surgical clips superimposes the neck. Minimal left basilar atelectatic changes are seen. ??There is no focal consolidation, pleural effusion or pneumothorax. ??Cardiomediastinum is stable. Electronically signed by: Starla Hidalgo M.D. Narrative 03/18/2024 6:28 PM [employer] ROOM SUPERVISOR EXAMINATION: XR CHEST 1 VIEW HISTORY: cardiac surgery COMPARISON: Chest CT from 11/05/2023 Procedure Note Starla Anne MD - 03/18/2024 EXAMINATION: XR CHEST 1 VIEW HISTORY: cardiac surgery COMPARISON: Chest CT from 11/05/2023 IMPRESSION: FINDINGS/IMPRESSION: Postoperative changes of ascending aortic replacement is seen with sternotomy wires, and prosthetic aortic valve in place. A right IJ central venous catheter tip terminates in the superior vena cava. The right IJ [place]-Christoph catheter terminates in the main pulmonary artery. Mediastinal drains are seen. Bilateral shoulder arthroplasties are seen. Surgical clips superimposes the neck. Minimal left basilar atelectatic changes are seen. There is no focal consolidation, pleural effusion or pneumothorax. Cardiomediastinum is stable. Electronically signed by: Starla Hidalgo M.D. Brenda Mayberry NP IMG XR PROCEDURES Final Re sult * POCT glucose (03/18/2024 4:27 PM [employer] ROOM SUPERVISOR) Glucose, POC 121 70 - 199 mg/dL Comment: For Glucose values <35 mg/dl when Hematocrit is >60 mg/dl,the test may not accurately detect significant hypoglycemia,and testing in the Laboratory should be considered if clinically indicated. Blood 03/18/2024 4:27 PM [employer] ROOM SUPERVISOR 03/18/2024 4:27 PM [employer]UM ROOM SUPERVISOR us Basil Adhikari MD LAB POCT ORDERABLES - DE VICE Final Result [facility] [address] Department [place] [address] * Critical Care (03/18/2024 4:19 PM S[employer] AND [employer] ROOM SUPERVISOR) Narrative Gian Robertson MD - 03/18/2024 4:19 PM [employer] ROOM SUPERVISOR Brenda Mayberry NP ? 03/18/2024 ??5:34 PM Critical Care Performed by: Brenda Mayberry NP Authorized by: Brenda Mayberry NP ?? CRITICAL CARE: ??Team: ??[facility] CT ??Shift: ??AM ??Level of Billing: ??Critical Care ??My time spent with this patient was 60 minutes: Critical Provider Statement: I have seen and examined the patient on this day of service. I have reviewed and confirmed the history, physical exam, laboratory and radiologic data as documented in the signed ICU note. I have reviewed and discussed my treatment plan with the ICU team and other medical/risk management consultant staff, making frequent assessments and decisions regarding this patient's complex medical care. Critical Care time was exclusive of time spent performing separately billed procedures, treating other patients, and teaching. This time was in addition to and separate from critical care provided by other practitioners in my group on this day of service. Critical Care was necessary to treat or prevent imminent or life-threatening deterioration of the following conditions: ? I spent time reviewing and interpreting data from bedside monitors, laboratory results, and imaging, I spent time discussing the management of this critically ill patient with consultants and the medical staff and I spent time documenting in the medical record us Brenda Mayberry NP IN CLINIC/BEDSIDE ORDERABL ES Final Result * eGFR (03/18/2024 4:17 PM [employer] ROOM SUPERVISOR) eGFR 81 >=60 mL/min/1. 73 m2 Comment: Interpretive Data Reference Interval Normal ?>/= 90 mL/min/1.73m2 Mildly decreased* ? 60 - 89 mL/min/1.73m2 Mildly to moderately decreased ?45 - 59 mL/min/1.73m2 Moderately to severely decreased ??30 - 44 mL/min/1.73m2 Severely decreased ?15 - 29 mL/min/1.73m2 Kidney Failure ?< 15 ??mL/min/1.73m2 *Relative to young adult level Estimated glomerular filtration rate is determined by the 2020 CKD-EPI equation recommended by the National Kidney [employer] (A Unifying Approach to GFR Estimation: Recommendations of the NKF-ASK Task Force on Reassessing the Inclusion of Race in Diagnosing Kidney Disease, JASN 2020). The CKD-EPI equation should not be used for patients with unstable renal function and has not been validated in children and those over 70. Current interpretive data was last reviewed 2021. Blood 03/18/2024 4:17 PM [employer] ROOM SUPERVISOR 03/18/2024 4:32 PM [employer]UM ROOM SUPERVISOR Brenda Mayberry NP LAB BLOOD ORDERABLES Final Result Performing Organization Address [facility] de Phone Number [facility] [address] [facility] [place] [address] * (ABNORMAL) Calcium, ionized (03/18/2024 4:17 PM S[employer] ROOM SUPERVISOR) Calcium, Ionized 5.37(H) 4.50 - 5.10 mg/dL Blood 03/18/2024 4:17 PM [employer] ROOM SUPERVISOR 03/18/2024 4:32 PM [employer] AND [employer]UM ROOM SUPERVISOR Brenda Mayberry NP LAB BLOOD ORDERABLES Final Result Performing Organization Address [facility] de Phone Number [facility] [address] [place] [address] * aPTT (03/18/2024 4:17 PM S[employer] ROOM SUPERVISOR) Pathologist [facility] aPTT 37 28 - 38 sec Comment: Interpretive Data Heparin therapeutic range: 66.0 - 100.0 seconds. Range based on correlation with therapeutic heparin activity range of 0.3 - 0.7 Units/mL. Current interpretive data was last revised on 2022. Blood 03/18/2024 4:17 PM [employer] ROOM SUPERVISOR 03/18/2024 4:32 PM [employer]UM ROOM SUPERVISOR Brenda Mayberry NP LAB BLOOD ORDERABLES Final Result Performing Organization Address [facility] Co de Phone Number [facility] [address] [place] [address] * (ABNORMAL) Protime-INR (03/18/2024 4:17 PM S[employer] ROOM SUPERVISOR) Pathologist [facility] PT 16.0(H) 9.7 - 13.0 sec INR 1.47(H) 0.90 - 1.20 [facility] Comment: Interpretive data Oral anticoagulant therapeutic ranges: Venous thromboembolism prophylaxis or treatment: 2.0-3.0 CARDIOLOGY Standard range: 2.0-3.0 High-intensity range: 2.5-3.5 Refer to indication-specific guidelines for appropriate target ranges for prosthetic heart valve replacement. Current interpretive data was last revised on 2019. Blood 03/18/2024 4:17 PM [employer] ROOM SUPERVISOR 03/18/2024 4:32 PM [employer]UM ROOM SUPERVISOR Brenda Mayberry NP LAB BLOOD ORDERABLES Final Result Performing Organization Address [facility] Co de Phone Number [facility] [address] [place] [address] * (ABNORMAL) CBC without differential (03/18/2024 4:17 PM S[employer] AND [employer] ROOM SUPERVISOR) Pathologist [facility] WBC 8.5 3.8 - 9.9 K/cumm Hgb 11.1(L) 13.0 - 17.5 g/dL [facility] Hct 31.9(L) 38.9 - 50.3 % [facility] Plt 95(L) 150 - 400 K/cumm [facility] MPV 9.2 9.1 - 12.3 fL [facility] RBC 3.65(L) 4.30 - 5.80 M/cumm [facility] MCV 87.4 81.3 - 96.4 fL [facility] MCH 30.4 27.1 - 33.3 pg [facility] MCHC 34.8 32.3 - 35.7 g/dL [facility] RDW CV 12.5 11.1 - 14.9 % [facility] RDW SD 39.9 35.7 - 48.1 fL [facility] NRBC abs 0.00 0.00 - 0.01 K/cumm [facility] Blood 03/18/2024 4:17 PM [employer] ROOM SUPERVISOR 03/18/2024 4:32 PM S[employer] AND [employer]UM ROOM SUPERVISOR Brenda Mayberry NP LAB BLOOD ORDERABLES Final Result Performing Organization Address City/[facility]/ZIP Co de Phone Number [facility] [address] [facility] [place] [address] * Phosphorus (03/18/2024 4:17 PM S[employer] AND [employer]UM ROOM SUPERVISOR) Phosphorus, pl 3.6 2.3 - 4.5 mg/dL Blood 03/18/2024 4:17 PM [employer] AND [employer] ROOM SUPERVISOR 03/18/2024 4:32 PM [employer]UM ROOM SUPERVISOR Brenda Mayberry NP LAB BLOOD ORDERABLES Final Result Performing Organization Address City/[facility]/ZIP Co de Phone Number [facility] [address] [facility] [place] [address] * Magnesium (03/18/2024 4:17 PM S[employer] AND [employer] ROOM SUPERVISOR) Pathologist [facility] Magnesium 2.3 1.4 - 2.5 mg/dL Blood 03/18/2024 4:17 PM S[employer] AND [employer] ROOM SUPERVISOR 03/18/2024 4:32 PM S[employer] AND DRUM ROOM SUPERVISOR us Brenda Mayberry SUPERVISOR TYPE BAR AND SEGMENT LAB BLOOD ORDERABLES Final Result [facility] [address] Department [place] [address] * (ABNORMAL) Blood gas, arterial (03/18/2024 4:17 PM S[employer] ROOM SUPERVISOR) pH, Art 7.41 7.35 - 7.45 PCO2, Arterial 33(L) 35 - 45 mmHg [facility] PO2, Arterial 168(H) 83 - 108 mmHg [facility] HCO3 Art (Calculated) 21 20 - 30 mmol/L [facility] BE, art -3 mmol/L [facility] Comment: Interpretive Data No Reference Range Established Current Interpretive Data was last revised on 2017 O2 Sat Art (Calculated) 100(H) 94 - 98 % [facility] Blood 03/18/2024 4:17 PM [employer] ROOM SUPERVISOR 03/18/2024 4:32 PM S[employer] AND DRUM ROOM SUPERVISOR Bredna Mayberry SUPERVISOR TYPE BAR AND SEGMENT LAB BLOOD ORDERABLES Final Result [facility] [address] Department [place] [address] * (ABNORMAL) Basic metabolic panel (03/18/2024 4:17 PM [employer] ROOM SUPERVISOR) Sodium 137 135 - 145 mmol/L Potassium, pl 4.3 3.3 - 4.9 mmol/L [facility] Chloride 108 97 - 110 mmol/L [facility] CO2 21(L) 22 - 32 mmol/L [facility] Anion gap 8 2 - 15 mmol/L [facility] BUN 12 6 - 25 mg/dL [facility] Creatinine 0.93 0.80 - 1.30 mg/dL [facility] Glucose 124 70 - 199 mg/dL [facility] Comment: Interpretive Data Fasting glucose >/= 126 mg/dl is diagnostic for diabetes. ?? Fasting is defined as no caloric intake for at least 8 hours. Fasting glucose between 100 mg/dl to 125 mg/dl is diagnostic of prediabetes. In a patient with classic symptoms of hyperglycemia or hyperglycemic crisis, a random glucose >/= 200 mg/dl is diagnostic for diabetes. In the absence of unequivocal hyperglycemia, results should be confirmed by repeat testing. The classification and Diagnosis of Diabetes Diabetes Care 2021; 46: S19-S40. Current interpretive data was last revised 2022. Calcium 9.0 8.5 - 10.3 mg/dL [facility] Blood 03/18/2024 4:17 PM [employer] ROOM SUPERVISOR 03/18/2024 4:32 PM S[employer] AND DRUM ROOM SUPERVISOR us Brenda Mayberry SUPERVISOR TYPE BAR AND SEGMENT LAB BLOOD ORDERABLES Final Result Performing Organization Address [facility] Co de Phone Number [facility] [address] [employer] [place], [place] [id number] * aPTT (03/18/2024 3:38 PM S[employer] ROOM SUPERVISOR) aPTT 38 28 - 38 sec Comment: Interpretive Data Heparin therapeutic range: 66.0 - 100.0 seconds. Range based on correlation with therapeutic heparin activity range of 0.3 - 0.7 Units/mL. Current interpretive data was last revised on 2022. Blood 03/18/2024 3:38 PM [employer] ROOM SUPERVISOR 03/18/2024 3:38 PM S[employer] AND DRUM ROOM SUPERVISOR us Basil Adhikari MD LAB BLOOD ORDERABLES Fin al Result Performing Organization Address [facility] Co de Phone Number [facility] [address] Department [place] [address] * (ABNORMAL) Protime-INR (03/18/2024 3:38 PM S[employer] AND DRUM ROOM SUPERVISOR) PT 17.5(H) 9.7 - 13.0 sec INR 1.60(H) 0.90 - 1.20 [facility] Comment: Interpretive data Oral anticoagulant therapeutic ranges: Venous thromboembolism prophylaxis or treatment: 2.0-3.0 CARDIOLOGY Standard range: 2.0-3.0 High-intensity range: 2.5-3.5 Refer to indication-specific guidelines for appropriate target ranges for prosthetic heart valve replacement. Current interpretive data was last revised on 2019. Blood 03/18/2024 3:38 PM [employer]UM ROOM SUPERVISOR 03/18/2024 3:38 PM [employer] DRUM ROOM SUPERVISOR Basil Adhikari MD LAB BLOOD ORDERABLES Fin al Result Performing Organization Address [facility]/ZIP Co de Phone Number [facility] [address] [facility] [place] [address] * Fibrinogen (03/18/2024 3:38 PM S[employer] ROOM SUPERVISOR) Pathologist [facility] Fibrinogen 184 170 - 400 mg/dL Blood 03/18/2024 3:38 PM [employer] ROOM SUPERVISOR 03/18/2024 3:38 PM [employer] AND DRUM ROOM SUPERVISOR Basil Adhikari MD LAB BLOOD ORDERABLES Fin al Result Performing Organization Address [facility] de Phone Number [facility] [address] [employer] [place] [address] * (ABNORMAL) CBC without differential (03/18/2024 3:38 PM S[employer] ROOM SUPERVISOR) Pathologist [facility] WBC 14.2(H) 3.8 - 9.9 K/cumm Hgb 10.6(L) 13.0 - 17.5 g/dL [facility] Hct 30.7(L) 38.9 - 50.3 % [facility] Plt 108(L) 150 - 400 K/cumm [facility] MPV 9.5 9.1 - 12.3 fL [facility] RBC 3.46(L) 4.30 - 5.80 M/cumm [facility] MCV 88.7 81.3 - 96.4 fL [facility] MCH 30.6 27.1 - 33.3 pg [facility] MCHC 34.5 32.3 - 35.7 g/dL [facility] RDW CV 12.5 11.1 - 14.9 % [facility] RDW SD 40.1 35.7 - 48.1 fL [facility] NRBC abs 0.00 0.00 - 0.01 K/cumm [facility] Blood 03/18/2024 3:38 PM [employer] ROOM SUPERVISOR 03/18/2024 3:38 PM [employer] AND DRUM ROOM SUPERVISOR Basil Adhikari MD LAB BLOOD ORDERABLES Fin al Result Performing Organization Address [facility] Co de Phone Number [facility] [address] [facility] [place] [address] * POC Activated Clotting Time, High Range (03/18/2024 3:35 PM S[employer] ROOM SUPERVISOR) Pathologist [facility] ACT 130 87 - 138 sec Blood 03/18/2024 3:35 PM [employer] ROOM SUPERVISOR 03/18/2024 3:35 PM [employer] DRUM ROOM SUPERVISOR Basil Adhikari MD LAB BLOOD ORDERABLES Fin al Result Performing Organization Address [facility] de Phone Number [facility] [address] [place] [place] [address] * (ABNORMAL) POC Blood Gas and Chemistries, Arterial - (03/18/2024 3:35 PM S[employer] ROOM SUPERVISOR) Pathologist [facility] pH, Art POC 7.37 7.35 - 7.45 pCO2, Art POC 42 35 - 45 mmHg [facility] pO2, Art POC 330(H) 80 - 108 mmHg [facility] Na, POC 130(L) 135 - 145 mmol/L [facility] K POC 4.6 3.3 - 4.9 mmol/L [facility] Comment: Interpretive Data This method is not able to assess for hemolysis, which may falsely increase potassium concentrations. If further testing is needed to evaluate this result, consider in-laboratory plasma potassium. Current Interpretive Data was last revised on 2021. Cl, POC 103 97 - 110 mmol/L [facility] Ionized Ca, POC 6.06(H) 4.50 - 5.10 mg/dL [facility] Glucose, POC 157 70 - 199 mg/dL [facility] Lactate, POC 1.0 0.0 - 2.0 mmol/L [facility] O2Hb, Art POC 96.9(H) 90.0 - 95.0 % [facility] Carboxhgb fract 1.0 0.0 - 2.9 % [facility] Methemoglobin 1.3 0.0 - 1.9 % [facility] HHb, POC 0.9 0.0 - 5.0 % [facility] SO2 (shayne) arterial 99(H) 90 - 95 % [facility] BE, art, POC -1.0 -2.0 - 2.0 mmol/L [facility] HCO3, Art POC 24 20 - 30 mmol/L [facility] Hct, POC 34.0(L) 38.9 - 50.3 % [facility] Total Hb, POC 11.2(L) 13.0 - 17.5 g/dL [facility] Blood 03/18/2024 3:35 PM [employer] ROOM SUPERVISOR 03/18/2024 3:35 PM [employer] ROOM SUPERVISOR us Basil Adhikari MD LAB POCT ORDERABLES - DE VICE Final Result [facility] [address] Department [place] [address] * (ABNORMAL) POC Blood Gas and Chemistries, Arterial - (03/18/2024 2:41 PM [employer] RO[employer] SUPERVISOR) pH, Art POC 7.33(L) 7.35 - 7.45 pCO2, Art POC 45 35 - 45 mmHg [facility] pO2, Art POC 345(H) 80 - 108 mmHg [facility] Na, POC 129(L) 135 - 145 mmol/L [facility] K POC 5.3(H) 3.3 - 4.9 mmol/L [facility] Comment: Interpretive Data This method is not able to assess for hemolysis, which may falsely increase potassium concentrations. If further testing is needed to evaluate this result, consider in-laboratory plasma potassium. Current Interpretive Data was last revised on 2021. Cl, POC 102 97 - 110 mmol/L [facility] Ionized Ca, POC 4.66 4.50 - 5.10 mg/dL [facility] Glucose, POC 153 70 - 199 mg/dL [facility] Lactate, POC 0.8 0.0 - 2.0 mmol/L [facility] O2Hb, Art POC 96.6(H) 90.0 - 95.0 % [facility] Carboxhgb fract 1.2 0.0 - 2.9 % [facility] Methemoglobin 1.4 0.0 - 1.9 % [facility] HHb, POC 0.8 0.0 - 5.0 % [facility] SO2 (shayne) arterial 99(H) 90 - 95 % [facility] BE, art, POC -2.3(L) -2.0 - 2.0 mmol/L [facility] HCO3, Art POC 23 20 - 30 mmol/L [facility] Hct, POC 32.0(L) 38.9 - 50.3 % [facility] Total Hb, POC 10.7(L) 13.0 - 17.5 g/dL [facility] Blood 03/18/2024 2:41 PM [employer] RO[employer] SUPERVISOR 03/18/2024 2:41 PM [employer] RO[employer] SUPERVISOR Basil Adhikari MD LAB POCT ORDERABLES - DE VICE Final Result Performing Organization Address [facility]/ZIP Co de Phone Number [facility] [address] [place] [address] * (ABNORMAL) POC Activated Clotting Time, High Range (03/18/2024 2:40 PM [employer] RO[employer] SUPERVISOR) ACT 474(H) 87 - 138 sec Blood 03/18/2024 2:40 PM [employer] RO[employer] SUPERVISOR 03/18/2024 2:40 PM [employer] ROOM SUPERVISOR Basli Adhikari MD LAB BLOOD ORDERABLES Fin al Result [facility] [address] Department [place] [place] [address] * (ABNORMAL) POC Blood Gas and Chemistries, Venous - (03/18/2024 2:30 PM [employer] RO[employer] SUPERVISOR) pH, Boyd POC 7.34 7.32 - 7.45 pCO2, boyd POC 47 40 - 50 mmHg [facility] pO2, boyd POC 52(H) 35 - 42 mmHg [facility] Na, POC 131(L) 135 - 145 mmol/L [facility] K POC 5.0(H) 3.3 - 4.9 mmol/L [facility] Comment: Interpretive Data This method is not able to assess for hemolysis, which may falsely increase potassium concentrations. If further testing is needed to evaluate this result, consider in-laboratory plasma potassium. Current Interpretive Data was last revised on 2021. Cl, POC 101 97 - 110 mmol/L [facility] Ionized Ca, POC 4.65 4.50 - 5.10 mg/dL [facility] Glucose, POC 130 70 - 199 mg/dL [facility] Lactate, POC 0.6 0.0 - 2.0 mmol/L [facility] O2Hb, Boyd POC 81.4(L) 90.0 - 95.0 % [facility] Carboxhgb fract 1.5 0.0 - 2.9 % [facility] Methemoglobin 1.1 0.0 - 1.9 % [facility] HHb, POC 16.0(H) 0.0 - 5.0 % [facility] O2 Sat, Boyd POC (Shayne) 84(H) 68 - 77 % [facility] Base excess, boyd POC -0.7 mmol/L [facility] HCO3, Boyd POC 24 20 - 30 mmol/L [facility] Hct, POC 33.0(L) 38.9 - 50.3 % [facility] Total Hb, POC 11.0(L) 13.0 - 17.5 g/dL [facility] Blood 03/18/2024 2:30 PM SPLIT AND DRUM ROOM SUPERVISOR 03/18/2024 2:30 PM SPLIT AND DRUM ROOM SUPERVISOR us Basil Adhikari MD LAB POCT ORDERABLES - DE VICE Final Result [facility] [address] Department [place] [address] * Surgical pathology (03/18/2024 2:09 PM SPLIT AND DRUM ROOM SUPERVISOR) Tissue (Aorta) 03/18/2024 2: 09 PM SPLIT AND DRUM ROOM SUPERVISOR Comment:Placed in formalin a t end of case Narrative PATHOLOGY [facility] - 03/22/2024 11:52 AM SPLIT AND DRUM ROOM SUPERVISOR [address] ??[address] Tele: ?? Josie Cárdenas MD - [place] Worker Note to Patients: This report may contain a detailed description of human tissue sent by a health care provider to the laboratory for pathologic evaluation. The content of this report is essential for diagnosis and may provide important critical findings. This information may be unfamiliar to patients to review without a medical professional present. It is advised that the patient review this report in the presence of a health care provider who can answer questions and explain the details. SURGICAL PATHOLOGY REPORT Patient Name: ??GIAN LEE Address: ??[address] [place] [address] Gender: ??M : ??1940 (Age: 83) Service: ??Cardiothoracic Location: ??[id number], ?? Hospital #: ??[id number] Patient Type: ??[facility]IENT Accession #: ? [id number] Taken: ? 03/18/2024 Received ? 03/18/2024 Reported: ? 03/22/2024 Physician(s): ? Basil Adhikari M.D. Martinez Pace M.D. DIAGNOSIS: Aorta, mini ascending aortic root replacement: ? - Benign aortic tissue with mild degenerative change 03/22/2024 11:52 Examining Pathologist: Isiah Das M.D. Report Reviewed and Electronically Signed By ??Isiah Das M.D. 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 ??The vascular wall intact, and mildly hemorrhagic. Furniture Finisher sections are submitted as follows: ??A1 - Furniture Finisher sections, A2-A6 - Additional sections. ?? [facility]/03/19/2024 14:38 ? DMS,JAP MICROSCOPIC DESCRIPTION: Microscopic examination supports the above captioned diagnosis. ??a 2 mm focus of clustered neuroendocrine type cells is evident in slides from A1. ??These elements are further evaluated with IHC stains and show positive staining for synaptophysin, chromogranin, STEPHEN-3, and S100. ??These cells are negative for CDX2, TTF-1, and CD117. ??The morphology and location are interpreted as consistent with a paraganglion, part of the parasympathetic paraganglia, and considered a non-neoplastic entity. Clerical Data Follows A; 07330, 34776, 25502(6) REPORT IMAGES AND/OR SCANNED DOCUMENTS ONLY VIEWABLE IN PDF FORMAT The immunohistochemical test(s) cited in this report, if any, was developed and its performance characteristics determined by [facility] Pathology Department. ??It has not been cleared or approved by the U.S. Food and Drug Administration. ??The FDA has determined that such clearance or approval is not necessary. ??This test is used for clinical purposes. ??It should not be regarded as investigational or for research. ??[facility] is certified under the Clinical Laboratory Improvement Amendments of 1988 (CLIA) as qualified to perform high complexity testing. ??Immunostains were performed on formalin-fixed paraffin embedded tissue using a polymer diaminobenzidine chromogen detection system. Antibodies used may include clone SP1 (rabbit monoclonal, estrogen receptor), clone 1E2 (rabbit monoclonal progesterone receptor), Ki-67 (rabbit monoclonal, 30-9), CD117 (rabbit polyclonal, c-kit), and anti-Her-2/jose (4B5) (rabbit monoclonal primary antibody). ??In the event that immunohistochemistry or special stains have been performed, attending physician has confirmed appropriateness of controls. ??Frozen section, operating room consultation, gross examination and dissection, and case sign out may have been performed in part or completely in the following laboratories: [facility], [address] [place] [address] [facility], [address] [facility], [place] [address]. Basil Adhikari MD LAB PATHOLOGY ORDERABLES Final Result Performing Organization Address City/[facility]/ZIP Co de Phone Number PATHOLOGY [facility] Laboratory Receiving [address] [place] [address] * (ABNORMAL) POC Activated Clotting Time, High Range (03/18/2024 2:08 PM SPLIT AND DRUM ROOM SUPERVISOR) [facility] ACT 627(H) 87 - 138 sec Blood 03/18/2024 2:08 PM SPLIT AND DRUM ROOM SUPERVISOR 03/18/2024 2:08 PM SPLIT AND DRUM ROOM SUPERVISOR Basil Adhikari MD LAB BLOOD ORDERABLES Fin al Result Performing Organization Address [facility]/ZIP Co de Phone Number [facility] [address] Department [place] [address] * (ABNORMAL) POC Blood Gas and Chemistries, Arterial - (03/18/2024 2:08 PM SPLIT AND DRUM ROOM SUPERVISOR) [facility] pH, Art POC 7.35 7.35 - 7.45 pCO2, Art POC 44 35 - 45 mmHg [facility] pO2, Art POC 417(H) 80 - 108 mmHg [facility] Na, POC 129(L) 135 - 145 mmol/L [facility] K POC 5.7(H) 3.3 - 4.9 mmol/L [facility] Comment: Interpretive Data This method is not able to assess for hemolysis, which may falsely increase potassium concentrations. If further testing is needed to evaluate this result, consider in-laboratory plasma potassium. Current Interpretive Data was last revised on 2021. Cl, POC 103 97 - 110 mmol/L [facility] Ionized Ca, POC 4.68 4.50 - 5.10 mg/dL [facility] Glucose, POC 122 70 - 199 mg/dL [facility] Lactate, POC 0.5 0.0 - 2.0 mmol/L [facility] O2Hb, Art POC 97.5(H) 90.0 - 95.0 % [facility] Carboxhgb fract 1.0 0.0 - 2.9 % [facility] Methemoglobin 0.8 0.0 - 1.9 % [facility] HHb, POC 0.7 0.0 - 5.0 % [facility] SO2 (shayne) arterial 99(H) 90 - 95 % [facility] BE, art, POC -1.4 -2.0 - 2.0 mmol/L [facility] HCO3, Art POC 24 20 - 30 mmol/L [facility] Hct, POC 33.0(L) 38.9 - 50.3 % [facility] Total Hb, POC 11.0(L) 13.0 - 17.5 g/dL [facility] Blood 03/18/2024 2:08 PM SPLIT AND DRUM ROOM SUPERVISOR 03/18/2024 2:08 PM SPLIT AND DRUM ROOM SUPERVISOR us Basil Adhikari MD LAB POCT ORDERABLES - DE VICE Final Result [facility] [address] Department [place] [address] * (ABNORMAL) POC Blood Gas and Chemistries, Arterial - (03/18/2024 1:50 PM SPLIT AND DRUM ROOM SUPERVISOR) pH, Art POC 7.39 7.35 - 7.45 pCO2, Art POC 38 35 - 45 mmHg [facility] pO2, Art POC 426(H) 80 - 108 mmHg [facility] Na, POC 128(L) 135 - 145 mmol/L [facility] K POC 4.4 3.3 - 4.9 mmol/L [facility] Comment: Interpretive Data This method is not able to assess for hemolysis, which may falsely increase potassium concentrations. If further testing is needed to evaluate this result, consider in-laboratory plasma potassium. Current Interpretive Data was last revised on 2021. Cl, POC 101 97 - 110 mmol/L [facility] Ionized Ca, POC 4.82 4.50 - 5.10 mg/dL [facility] Glucose, POC 113 70 - 199 mg/dL [facility] Lactate, POC 0.5 0.0 - 2.0 mmol/L [facility] O2Hb, Art POC 97.1(H) 90.0 - 95.0 % [facility] Carboxhgb fract 1.4 0.0 - 2.9 % [facility] Methemoglobin 1.2 0.0 - 1.9 % [facility] HHb, POC 0.3 0.0 - 5.0 % [facility] SO2 (shayne) arterial 100(H) 90 - 95 % [facility] BE, art, POC -1.7 -2.0 - 2.0 mmol/L [facility] HCO3, Art POC 24 20 - 30 mmol/L [facility] Hct, POC 39.0 38.9 - 50.3 % [facility] Total Hb, POC 12.9(L) 13.0 - 17.5 g/dL [facility] Blood 03/18/2024 1:50 PM SPLIT AND DRUM ROOM SUPERVISOR 03/18/2024 1:50 PM SPLIT AND DRUM ROOM SUPERVISOR Basil Adhikari MD LAB POCT ORDERABLES - DE VICE Final Result Performing Organization Address [facility]/ZIP Co de Phone Number [facility] [address] [facility] [place], [place] [id number] * (ABNORMAL) POC Activated Clotting Time, High Range (03/18/2024 1:49 PM SPLIT AND DRUM ROOM SUPERVISOR) ACT 608(H) 87 - 138 sec Blood 03/18/2024 1:49 PM SPLIT AND DRUM ROOM SUPERVISOR 03/18/2024 1:49 PM SPLIT AND DRUM ROOM SUPERVISOR Basil Adhikari MD LAB BLOOD ORDERABLES Fin al Result Performing Organization Address City/[facility]/ZIP Co de Phone Number [facility] [address] [place] [address] * [place] AN SHEATH INTRODUCER PERFORMABLE, PULMONARY ARTERY CATH, [place] AN PROCEDURE PLACEHOLDER (51:41 PM SPLIT AND DRUM ROOM SUPERVISOR) Narrative Gamal Asher MD PhD - 03/18/2024 1:41 PM SPLIT AND DRUM ROOM SUPERVISOR Gamal Asher MD PhD ? 03/18/2024 ??1:41 PM Central Venous Line Patient location: OR End Time: 03/18/2024 1:19 PM Indication: central venous access and CVP monitoring Staff: Placed by: Anesthesiologist: Gamal Asher MD PhD Procedure prep: Patient position: Trendelenburg. PPE: provider hand hygiene, provider hat/mask, sterile gloves, sterile gown and full body drape. Prep solution: chlorhexadine/alcohol was applied to area. Ultrasound Evaluation: Central line: Laterality: right Site: internal jugular Catheter type: introducer sheath Catheter size: 9 Fr. Catheter length: 10 cm Technique: anatomy identified with surface landmarks, vein located with finder needle, Seldinger technique, wire threaded easily and wire removed intact Venous verification: manometry Post insertion: all ports aspirated, all ports flushed easily, line sutured in place and occlusive dressing applied Number of attempts: 1 PA catheter placement: PA catheter type: non-oximetric PA catheter size: 7.5 Fr PA catheter laterality: right PA catheter site: internal jugular Placement guided by: pressure tracing changes PA catheter depth 48 cmNo Assessment: Events: patient tolerated procedure well with no complications Gamal Asher MD PhD ANESTHESIA ORDERABLES Fi nal Result * [place] AN CENTRAL LINE QUADRUPLE LUMEN, [place] AN PROCEDURE PLACEHOLDER (03/18/2024 1:40 PM SPLIT AND DRUM ROOM SUPERVISOR) Narrative Gamal Asher MD PhD - 03/18/2024 1:40 PM SPLIT AND DRUM ROOM SUPERVISOR Gamal Asher MD PhD ? 03/18/2024 ??1:41 PM Central Venous Line Patient location: OR End Time: 03/18/2024 1:19 PM Indication: central venous access and CVP monitoring Staff: Placed by: Anesthesiologist: Gamal Asher MD PhD Procedure prep: Patient position: Trendelenburg. PPE: provider hand hygiene, provider hat/mask, sterile gloves, sterile gown and full body drape. Prep solution: chlorhexadine/alcohol was applied to area. Ultrasound Evaluation: Central line: Laterality: right Site: internal jugular Catheter type: quad lumen Catheter size: 8.5 Fr. Catheter length: 16 cm Technique: wire threaded easily, anatomy identified with surface landmarks, vein located with finder needle, Seldinger technique and wire removed intact Venous verification: manometry Post insertion: all ports aspirated, all ports flushed easily, line sutured in place and occlusive dressing applied Number of attempts: 1 Assessment: Events: patient tolerated procedure well with no complications Gamal Asher MD PhD ANESTHESIA ORDERABLES Fi nal Result * [place] AN PROCEDURE PLACEHOLDER (03/18/2024 1:39 PM SPLIT AND DRUM ROOM SUPERVISOR) Gamal Robbins MD PhD - 03/18/2024 1:39 PM SPLIT AND DRUM ROOM SUPERVISOR Gamal Asher MD PhD ? 03/18/2024 ??1:39 PM Arterial Line Patient location: OR End time: 03/18/2024 1:04 PM Indication: continuous blood pressure monitoring and blood sampling needed Staff: Placed by: Anesthesiologist: Gamal Asher MD PhD Procedure prep: Prep solution: chlorhexadine/alcohol Prep: provider hat/mask Arterial line: Catheter size: 20 gauge Catheter length: 1 and 3/4 inch Catheter type: wire-guided catheter Seldinger technique: yes Laterality: right Site: radial artery Line secured: tape and Tegaderm Results: good waveform and good blood return Number of attempts: 1 Assessment: Events: patient tolerated procedure well with no complications Gamal Asher MD PhD ANESTHESIA ORDERABLES Fi nal Result * [place] AN PROCEDURE PLACEHOLDER (03/18/2024 1:38 PM SPLIT AND DRUM ROOM SUPERVISOR) Gamal Robbins MD PhD - 03/18/2024 1:38 PM SPLIT AND DRUM ROOM SUPERVISOR Gamal Asher MD PhD ? 03/18/2024 ??1:38 PM Arterial Line Patient location: OR End time: 03/18/2024 1:01 PM Indication: continuous blood pressure monitoring and blood sampling needed Staff: Placed by: Anesthesiologist: Gamal Asher MD PhD Procedure prep: Prep solution: chlorhexadine/alcohol Prep: provider hat/mask Arterial line: Catheter size: 20 gauge Catheter length: 1 and 3/4 inch Catheter type: wire-guided catheter Seldinger technique: yes Laterality: left Site: radial artery Line secured: tape and Tegaderm Results: good waveform and good blood return Number of attempts: 1 Assessment: Events: patient tolerated procedure well with no complications us Gamal Asher MD PhD ANESTHESIA ORDERABLES Fi nal Result * [place] AN ELECTIVE ENDOTRACHEAL AIRWAY, [place] AN PROCEDURE PLACEHOLDER (03/18/2024 1:37 PM SPLIT AND DRUM ROOM SUPERVISOR) Narrative Gamal Asher MD PhD - 03/18/2024 1:37 PM SPLIT AND DRUM ROOM SUPERVISOR Gamal Asher MD PhD ? 03/18/2024 ??1:37 PM Airway Patient location: OR Urgency: elective Indications for airway management: anesthesia Difficult airway: no Staff: Placed by: Anesthesiologist: Gamal Asher MD PhD Emergent airway documentation: Risks and benefits discussed: yes Consent obtained: yes Consent given by: patient Airway prep: Preoxygenated: yes Patient position: sniffing Mask difficulty assessment: 1 - vent by mask Final airway details: Final airway type: endotracheal airway Tube type: ETT ETT size: 8.0 mm Cuffed: yes Technique used for successful ETT placement: video laryngoscopy Insertion site: oral Video blade type: Dominguez Cormack-Lehane (video): grade I - full view of glottis Cuff inflated with: air ETT to lips: 22 cm Placement verified by: auscultation and CO2 detection Airway secured with: silk tape Number of attempts: 1 us Gamal sAher MD PhD ANESTHESIA ORDERABLES Fi nal Result * [place] AN PROCEDURE PLACEHOLDER (03/18/2024 1:29 PM SPLIT AND DRUM ROOM SUPERVISOR) Anatomical Region Laterality Modality Other Narrative 03/18/2024 1:29 PM SPLIT AND DRUM ROOM SUPERVISOR Derek Marin MD PhD ? 03/18/2024 ??4:18 PM LIDIA Date/time: Staff: Supervising anesthesiologist: Gamal Asher MD PhD Performed by: Anesthesiologist: Derek Marin MD PhD 1st Fellow: Alexsander Cortez MD Preprocedure checklist: patient identified, procedure contraindications assessed, procedure consent, risks, benefits and alternatives discussed, monitors and equipment checked, timeout performed and LIDIA probe inserted into esophagus using lubricating jelly General procedure Information: Reason for procedure/indications: assessment of ascending aorta, assessment of surgical repair, hemodynamic instability and hemodynamic monitoring Performed: personally and with fellows Procedure performed at surgeon's request: yes Results discussed with surgeon: yes Images submitted to archive: ??yes Patient location: OR Intubated: yes Bite block placed: no Probe Insertion: easy Complications: no Probe type: adult Modalities: 2D imaging, continuous wave Doppler, pulsed wave Doppler and color Doppler Billing information: Physician requesting echo: Basil Adhikari MD CPT code: LIDIA placement and diagnostic exam, non-congenital (99088) ICD code(s) for medical necessity: I71.2 - Thoracic aortic aneurysm, without rupture, I35.1 - Nonrheumatic aortic (valve) insufficiency Echocardiographic and doppler measurements: Ventricles: Left ventricle: Cavity size: normal Hypertrophy: No Thrombus: No Global function: normal LVEF%: 50-60 Right ventricle: Cavity size: normal Hypertrophy: no Thrombus: No Global function: normal Regional function: 1- Basal anteroseptal: normal 2- Basal anterior: normal 3- Basal anterolateral: normal 4- Basal inferolateral: normal 5- Basal inferior: normal 6- Basal inferoseptal: normal 7- Mid anteroseptal: normal 8- Mid anterior: normal 9- Mid anterolateral: normal 10- Mid inferolateral: normal 11- Mid inferior: normal 12- Mid inferoseptal: normal 13- Apical anterior: normal 14- Apical lateral: normal 15- Apical inferior: normal 16- Apical septal: normal 17- [place]: normal Valves: Aortic Valve: Annulus: dilated Leaflet morphology: normal Leaflet motion: normal Stenosis: none Regurgitation: mild and moderate Mitral valve: Annulus: normal Leaflet morphology anterior: normal Leaflet morphology posterior: normal Leaflet motion anterior: normal Leaflet motion posterior: normal Stenosis: none Regurgitation: mild and moderate Tricuspid valve: Annulus: normal Leaflet morphology: normal Leaflet motion: normal Regurgitation: trace Pulmonic valve: Annulus: normal Stenosis: none Regurgitation: absent Aorta: Ascending aorta: Size: aneurysmal Dissection: no Plaque thickness(mm): 0-3 Plaque mobile: no Aortic arch: Size: normal Dissection: no Plaque thickness(mm): 0-3 Plaque mobile: no Descending aorta: Size: normal Dissection: no Plaque mobile: no Atria: Right atrium: Size: normal Spontaneous echo contrast: No Thrombus: no Mass: No Left atrium: Size: normal (normal) Spontaneous echo contrast: No Thrombus: no Mass: No Left atrial appendage: normal Interatrial septum: normal Diastolic function and other findings: Diastolic function: normal Pericardium: normal Left pleural effusion: none Right pleural effusion: normal Pulmonary venous flow: normal Pre-procedure LIDIA exam summary: Patient intubated, under general anesthesia. Undergoing AVR + ascending replacement. Normal biventricular function. Trileaflet aortic vavle with mild-moderate AI with two jets, one central and one between non and left cusps. No . 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 Mild-moderate MR, trace TR. No aortic dissection or effusions. Postprocedure (follow-up) LIDIA exam: LV: unchanged RV: unchanged Interventricular septum: unchanged Aortic valve: unchanged and bioprosthetic Aortic valve gradient mean: 12 mmHg Mitral valve: unchanged Pulmonic valve: unchanged Tricuspid valve: unchanged Atria: unchanged Pericardium: unchanged Left pleural: unchanged Right pleural: unchanged Postprocedure (follow-up) LIDIA exam comments: The pre-CPB echocardiogram was performed and dictated by Iris Gupta and Dana, the post-CPB echocardigram was performed and dictated by Dr Marin. The patient is s/p bio-Bentall. They are supported on vasopressors in a normal sinus rhythm. The post-operative echocardiogram is remarkable for preserved biventricular systolic function with no RWMA. 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 The MR remains mild to moderate. Attestation Statement: By signing this report the attending anesthesiologist certifies that he or she has personally reviewed and interpreted the echocardiogram and has reviewed and or edited and agrees with the written comments contained within the report. us Alexsander Cortez MD ANESTHESIA ORDERABLES Ed ited Result - Final * POC Activated Clotting Time, High Range (03/18/2024 1:11 PM SPLIT AND DRUM ROOM SUPERVISOR) ACT 111 87 - 138 sec Blood 03/18/2024 1:11 PM SPLIT AND DRUM ROOM SUPERVISOR 03/18/2024 1:11 PM SPLIT AND DRUM ROOM SUPERVISOR Basil Adhikari MD LAB BLOOD ORDERABLES Fin al Result Performing Organization Address [facility] de Phone Number [facility] [address] Department [place] [address] * LIDIA Add-On For OR (03/18/2024 12:05 PM SPLIT AND DRUM ROOM SUPERVISOR) BSA 1.88 m2 CONS SCIMAGE Narrative CONS SCIMAGE - 03/18/2024 12:05 PM SPLIT AND DRUM ROOM SUPERVISOR Procedure Auto Finalized by Rule: MELINDA CV LIDIA DURING CASE OR Please see the Anesthesiologist's Procedure Note for the results. us Gamal Asher MD PhD CV ECHO PROCEDURES Final Result Performing Organization Address [facility] de Phone Number CONS SCIMAGE * Check Sample (03/18/2024 9:54 AM SPLIT AND DRUM ROOM SUPERVISOR) ABO Rh O Positive MBC HCLL OTHER 03/18/2024 9:54 AM SPLIT AND DRUM ROOM SUPERVISOR 03/18/2024 10:20 AM SPLIT AND DRUM ROOM SUPERVISOR us Basil Adhikari MD LAB BLOOD ORDERABLES Fin al Result Performing Organization Address [facility] de Phone Number [facility] [address] Department [place] [address] MBC * ECG 12 lead (03/18/2024 9:34 AM SPLIT AND DRUM ROOM SUPERVISOR) 03/18/2024 9:34 AM SPLIT AND DRUM ROOM SUPERVISOR Narrative [facility] - 03/18/2024 10:15 AM SPLIT AND DRUM ROOM SUPERVISOR Vent Rate: 46 bpm RR Interval: 1277 msec [place] Interval: 115 msec QRS Duration: 84 msec QT Interval: 430 msec QTC Interval: 391 msec P-R-T [place]: 56 - -19 - -14 degrees IMPRESSION: SINUS BRADYCARDIA WITH SINUS ARRHYTHMIA WITH SHORT [place] INTERVAL POSSIBLE ANTERIOR MYOCARDIAL INFARCTION , PROBABLY OLD BORDERLINE ECG Electronically Signed By: Klaus Humphrey MD PhD us Ev Freed SUPERVISOR TYPE BAR AND SEGMENT ECG ORDERABLES Final Res ult Performing Organization Address [facility]/ZIP Co de Phone Number [facility] * Prepare RBC: 4 Units (03/18/2024 9:12 AM SPLIT AND DRUM ROOM SUPERVISOR) Product code [id number] [facility] Unit Number [id number] [id number] [facility] Product Blood Type OPOS [facility] Dispense Status RETURNED [facility] Product code [id number] Unit Number [id number] [id number] [facility] Product Blood Type OPOS [facility] Dispense Status RETURNED [facility] Product code [id number] [facility] Unit Number [id number] 7-W [facility] Product Blood Type OPOS [facility] Dispense Status RETURNED [facility] Product code [id number] [facility] Unit Number [id number] 0-U [facility] Product Blood Type OPOS [facility] Dispense Status RETURNED [facility] Blood 03/18/2024 9:12 AM SPLIT AND DRUM ROOM SUPERVISOR Narrative [facility] - 03/22/2024 7:46 AM SPLIT AND DRUM ROOM SUPERVISOR Specify Procedure:->tissue aortic root replacement Are special requirements needed? (All products are leukoreduced and CMV- safe)- >No Date required:-[id number] LRRBC # of [id number] Reasons:-Hold for procedure (specify procedure)} vE Freed NP BLOOD BANK PRODUCT ORDERA BLES Final Result Performing Organization Address [facility]/ZIP Co de Phone Number [facility] [address] Department [place] [address] * Differential, auto (03/15/2024 12:29 PM [employer] SUPERVISOR) Neutrophil abs 2.5 1.5 - 6.5 K/cumm Imm gran abs 0.0 0.0 - 0.1 K/cumm [facility] Lymphocyte abs 1.1 0.8 - 3.3 K/cumm [facility] Monocyte abs 0.6 0.2 - 0.8 K/cumm [facility] Eosinophil abs 0.2 0.0 - 0.5 K/cumm [facility] Basophil abs 0.0 0.0 - 0.1 K/cumm [facility] Neutrophil pct 56.5 % [facility] Comment: Interpretive Data Percent cell count reference ranges are not reported, since discordance with absolute values may lead to misinterpretation of CBC data. Current Interpretive Data was last revised on 2017. Imm gran pct 0.5 % [facility] Comment: Interpretive Data Percent cell count reference ranges are not reported, since discordance with absolute values may lead to misinterpretation of CBC data. Current Interpretive Data was last revised on 2017. Lymphocyte pct 23.8 % [facility] Comment: Interpretive Data Percent cell count reference ranges are not reported, since discordance with absolute values may lead to misinterpretation of CBC data. Current Interpretive Data was last revised on 2017. Monocyte pct 14.5 % [facility] Comment: Interpretive Data Percent cell count reference ranges are not reported, since discordance with absolute values may lead to misinterpretation of CBC data. Current Interpretive Data was last revised on 2017. Eosinophil pct 3.8 % [facility] Comment: Interpretive Data Percent cell count reference ranges are not reported, since discordance with absolute values may lead to misinterpretation of CBC data. Current Interpretive Data was last revised on 2017. Basophil pct 0.9 % [facility] Comment: Interpretive Data Percent cell count reference ranges are not reported, since discordance with absolute values may lead to misinterpretation of CBC data. Current Interpretive Data was last revised on 2017. Blood 03/15/2024 12:2 9 PM [employer] SUPERVISOR 03/15/2024 12:29 PM [employer] SUPERVISOR us Basil Adhikari MD LAB BLOOD ORDERABLES Fin al Result [facility] [address] Department [place] [address] * CBC with auto differential (03/15/2024 12:29 PM [employer] SUPERVISOR) WBC 4.4 3.8 - 9.9 K/cumm Hgb 14.5 13.0 - 17.5 g/dL [facility] Hct 42.9 38.9 - 50.3 % [facility] Plt 156 150 - 400 K/cumm [facility] MPV 9.9 9.1 - 12.3 fL [facility] RBC 4.82 4.30 - 5.80 M/cumm [facility] MCV 89.0 81.3 - 96.4 fL [facility] MCH 30.1 27.1 - 33.3 pg [facility] MCHC 33.8 32.3 - 35.7 g/dL [facility] RDW CV 12.4 11.1 - 14.9 % [facility] RDW SD 40.8 35.7 - 48.1 fL [facility] NRBC abs 0.00 0.00 - 0.01 K/cumm [facility] Blood 03/15/2024 12:2 9 PM [employer] SUPERVISOR 03/15/2024 12:29 PM [employer] SUPERVISOR Basil Adhikari MD LAB BLOOD ORDERABLES Fin al Result Performing Organization Address [facility] Co de Phone Number [facility] [address] Department [place] [place] [address] * Type and screen (03/15/2024 12:29 PM [employer] SUPERVISOR) Alex, indirect Negative ABO Rh O Positive [facility] Blood 03/15/2024 12:2 9 PM [employer] SUPERVISOR 03/15/2024 12:45 PM [employer] SUPERVISOR Narrative [facility] - 03/15/2024 1:31 PM [employer] SUPERVISOR No blood transfusions last 90 days Surgery 03/18/24 No blood transfusions last 90 days Surgery 03/18/24 Has the patient had Daratumumab or Isatuximab in the past 6 months?->No Basil Adhikari MD LAB BLOOD BANK TEST ORDE RABLES Final Result Performing Organization Address City/[facility]/ZIP Co de Phone Number [facility] [address] [place] [place] [address] * Hemoglobin A1c (03/15/2024 12:29 PM [employer] SUPERVISOR) [facility] Hgb A1C 5.2 4.0 - 5.6 % Estimated Average Glucose 103 mg/dL [facility] Comment: The ADA recommends reporting an estimated Average Glucose (eAG) with all Hemoglobin A1c results using the equation derived from a study of 507 normal and diabetic adults. ??Minority populations were underrepresented and children were not included. ?? (Diabetes Care 31:8018-2060, 2008). ??The eAG is not equivalent to a fasting glucose. Blood 03/15/2024 12:2 9 PM [employer] SUPERVISOR 03/15/2024 12:29 PM [employer] SUPERVISOR us Basil Adhikari MD LAB BLOOD ORDERABLES Fin al Result Performing Organization Address City/State/[facility] Co de Phone Number [facility] [address] Department [place] [address] * eGFR (03/15/2024 12:28 PM [employer] RO[employer] SUPERVISOR) [facility] eGFR 65 >=60 mL/min/1. 73 m2 Comment: Interpretive Data Reference Interval Normal ?>/= 90 mL/min/1.73m2 Mildly decreased* ? 60 - 89 mL/min/1.73m2 Mildly to moderately decreased ?45 - 59 mL/min/1.73m2 Moderately to severely decreased ??30 - 44 mL/min/1.73m2 Severely decreased ?15 - 29 mL/min/1.73m2 Kidney Failure ?< 15 ??mL/min/1.73m2 *Relative to young adult level Estimated glomerular filtration rate is determined by the 2020 CKD-EPI equation recommended by the National Kidney Foundation (A Unifying Approach to GFR Estimation: Recommendations of the NKF-ASK Task Force on Reassessing the Inclusion of Race in Diagnosing Kidney Disease, JASN 202). The CKD-EPI equation should not be used for patients with unstable renal function and has not been validated in children and those over 70. Current interpretive data was last reviewed 2021. Blood 03/15/2024 12:2 8 PM [employer] RO[employer] SUPERVISOR 03/15/2024 12:28 PM [employer] ROOM SUPERVISOR us Basil Adhikari MD LAB BLOOD ORDERABLES Fin al Result [facility] [address] Department [place] [address] * (ABNORMAL) Comprehensive metabolic panel (03/15/2024 12:28 PM [employer] SUPERVISOR) Sodium 134(L) 135 - 145 mmol/L Potassium, pl 4.7 3.3 - 4.9 mmol/L [facility] Chloride 98 97 - 110 mmol/L [facility] CO2 25 22 - 32 mmol/L [facility] Anion gap 11 2 - 15 mmol/L [facility] BUN 12 6 - 25 mg/dL [facility] Creatinine 1.11 0.80 - 1.30 mg/dL [facility] Glucose 82 70 - 199 mg/dL [facility] Comment: Interpretive Data Fasting glucose >/= 126 mg/dl is diagnostic for diabetes. ?? Fasting is defined as no caloric intake for at least 8 hours. Fasting glucose between 100 mg/dl to 125 mg/dl is diagnostic of prediabetes. In a patient with classic symptoms of hyperglycemia or hyperglycemic crisis, a random glucose >/= 200 mg/dl is diagnostic for diabetes. In the absence of unequivocal hyperglycemia, results should be confirmed by repeat testing. The classification and Diagnosis of Diabetes Diabetes Care 2021; 46: S19-S40. Current interpretive data was last revised 2022. Calcium 9.3 8.5 - 10.3 mg/dL [facility] Bilirubin, total 0.8 0.1 - 1.2 mg/dL [facility] Protein, pl 6.8 6.5 - 8.5 g/dL [facility] Albumin 4.5 3.5 - 5.0 g/dL [facility] Alk phos 82 40 - 130 Units/L [facility] ALT 26 7 - 55 Units/L [facility] AST 39 10 - 50 Units/L [facility] Blood 03/15/2024 12:2 8 PM [employer] RO[employer] SUPERVISOR 03/15/2024 12:28 PM [employer] RO[employer] SUPERVISOR us Basil Adhikari MD LAB BLOOD ORDERABLES Fin al Result [facility] [address] Department [place] [address] * EMG/NCV - (02/05/2024 11:10 AM [employer] RO[employer] SUPERVISOR) Anatomical Region Laterality Modality EMG, EMG Impressions 02/05/2024 11:10 AM [employer] RO[employer] SUPERVISOR History: This is 83 years old male patient being evaluated for tingling and numbness of bilateral upper and lower extremities. Nerve conduction studies: Left radial antidromic sensory nerve conduction study showed slightly prolonged SNAP peak latency, normal amplitude and slow sensory nerve conduction velocity. ??Right radial antidromic sensory nerve conduction study showed normal SNAP peak latency, normal amplitude and normal sensory nerve conduction velocity. ??Left median orthodromic sensory nerve conduction study showed slightly prolonged SNAP peak latency, normal amplitude and slow sensory nerve conduction velocity. ??Right median orthodromic sensory nerve conduction study showed markedly prolonged SNAP peak latency, normal amplitude and slow sensory nerve conduction velocity. ??Left ulnar orthodromic sensory nerve conduction study showed slightly prolonged SNAP peak latency, normal amplitude and slightly slow sensory nerve conduction velocity. ??Right ulnar orthodromic sensory nerve conduction study showed borderline prolonged SNAP peak latency, normal amplitude and normal sensory nerve conduction velocity. Left median motor nerve conduction study showed slightly prolonged DML, low CMAP amplitude, normal motor nerve conduction velocity and normal F wave latency. ??Right median motor nerve conduction study showed markedly prolonged DML, slightly low CMAP amplitude, slightly slow motor nerve conduction velocity and prolonged F wave latency. ??Left ulnar motor nerve conduction study showed borderline prolonged DML, low CMAP amplitude, normal motor nerve conduction velocity and normal F wave latency. ??Right ulnar motor nerve conduction study showed normal DML, normal CMAP amplitude, normal motor nerve conduction velocity and normal F wave latency. Bilateral superficial peroneal antidromic sensory nerve conduction studies showed normal SNAP peak latencies, normal amplitudes and normal sensory nerve conduction velocities. ??Left sural antidromic sensory nerve conduction study showed normal SNAP peak latency, normal amplitude and normal sensory nerve conduction velocity. ??Right sural antidromic sensory nerve conduction study showed markedly prolonged SNAP peak latency, slightly low amplitude and slow sensory nerve conduction velocity. ??Bilateral peroneal motor nerve conduction studies when recording from EDB showed normal DMLs, moderately low CMAP amplitudes, normal motor nerve conduction velocities and normal F wave latencies. ??Bilateral tibial motor nerve conduction studies showed normal DMLs, normal CMAP amplitudes, normal motor nerve conduction velocities and normal F wave latencies. EMG studies: The concentric needle electrode examination was not performed because patient is on Xarelto. Impression: This is an abnormal study. ??There was electrophysiologic evidence suggestive of: 1. 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 2. 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 3. Mild left ulnar sensorimotor neuropathy. ??The site of lesion is undetermined. ?? The clinical correlation is recommended. Earl Bran II, MD NEUROLOGY ORDERABLES Final R esult * XR Outside Reference (01/14/2024 12:05 AM CDT) Narrative [email or web address] - 03/15/2024 10:54 AM [employer] SUPERVISOR This order has been auto-finalized and does not contain a result. us Provider Transcribed Order IMG XR PROCEDURES Fin al Result Performing Organization Address [facility] Co de Phone Number [email or web address] * XR Outside Reference (01/14/2024 12:00 AM CDT) Narrative RAD_PACS_OUTSIDE_FILM_[facility] - 02/17/2024 12:32 PM [employer] SUPERVISOR This order has been auto-finalized and does not contain a result. Provider Transcribed Order IMG XR PROCEDURES Fin al Result Performing Organization Address [facility] Co de Phone Number [email or web address] * Neuromuscular Specimen Tracking Outpatient Blood (01/13/2024 12:27 PM CDT) Blood 01/13/2024 12:2 7 PM CDT 01/13/2024 7:01 PM CDT Narrative [facility] - 01/13/2024 7:06 PM CDT Blood draw complete Earl Bran II, MD LAB BLOOD ORDERABLES Final R esult Performing Organization Address [facility] Co de Phone Number [facility] [address] [facility] Department [place] [address] * Neuromuscular Testing Blood (01/13/2024 12:00 AM CDT) Blood (Serum) 01/13/2024 01/14/2024 Narrative [facility] - 02/02/2024 3:23 PM [employer] RO[employer] SUPERVISOR Please click on the PDF link to view the report containing this result Earl Bran II, MD LAB PATHOLOGY ORDERABLES Fin al Result Performing Organization Address [facility] Co de Phone Number [facility] [address] [place] [phone] from Last 3 Months Insurance [facility] [employer] MEDICARE [facility] [employer] Advance Directives For more information, please contact: [phone] * Full Code (Latest Code Status on File) Date Activated Date Inactivated Comments 04/03/2024 10:09 AM * Full Code Date Activated Date Inactivated Comments 03/18/2024 4:14 PM 03/27/2024 7:19 PM * Full Code Date Activated Date Inactivated Comments 12/19/2023 8:17 AM 12/19/2023 2:20 PM * Full Code Date Activated Date Inactivated Comments 10/31/2020 2:04 PM 10/31/2020 8:34 PM * Full Code Date Activated Date Inactivated Comments 09/09/2019 8:19 AM 09/09/2019 6:53 PM Care Teams Paper Folder Relationship Specialty Start Date End Date Martinez Pace MD [address] [facility] [address] [place] [address] PCP - General 05/02/16 Dion Abraham MD [address] [place] [address] Referring Physician Cardiology 02/18/24 Basil Adhikari MD [address] [facility] [address] [place] [address] Consulting Physician Cardiothoracic Surgery 02/19/24
--- OUTSIDE RECORDS SUMMARY | 2024-04-08 08:15 | XMS_ITS | Referral Summary ---
Author Organization [facility] Address [address] [place] [address] Care Team Providers Care Lead Teacher Name Role Phone Martinez Pace MD Primary Care Provider Dion Abraham MD Unavailable [phone] Basil Adhikari MD Unavailable Encounters Date Type Department Care Team Description 04/03/2024 Orders Only [facility] Hospitalists [address] [place] [id number] Zoran Leyva DO 04/03/2024 9:45 AM SWATCH CUTTER - Present Hospital Encounter [address] [address] Pedro Senior MD Martin, Robert S., MD Barks, Jessica Beatrice, DO Li, Alex, MD Hammes, Tara Aldana MD Acute respiratory [...] extremities, unspecified chronicity, unspecified vein (HCC) [I82.403] 03/30/2024 Orders Only [facility] [address] [place] [address] Candis Chaparro RN Aneurysm of ascending aorta without rupture (HCC) (Primary Dx); Iliac artery aneurysm (CMS/HCC) (HCC) 03/29/2024 Telephone Cardiovascular and Thoracic Surgery [facility] [address] [place] [address] Basil Adhikari MD 03/18/2024 9:05 AM SWATCH CUTTER - 03/27/2024 3:13 PM SWATCH CUTTER Hospital Encounter [address] [address] Basil Adhikari MD Iliac aneurysm (CMS/HCC) (HCC) (Primary Dx); Aortic root aneurysm; S/P AVR Discharge Disposition: Discharge to an Rehab facility 03/22/2024 2:54 PM SWATCH CUTTER Anesthesia Event [facility] [address] [place] [phone] Gamal Asher MD PhD Deyvi Urrutia MD 03/22/2024 3:00 PM SWATCH CUTTER - 03/22/2024 5:15 PM SWATCH CUTTER Surgery [facility] [address] [place] [phone] Basil Adhikari MD Left internal iliac plug, left iliac aneurysm repair [16247 (CPT??)] 03/18/2024 12:10 PM SWATCH CUTTER Ancillary Procedure [facility] [address] [place] [id number] 03/18/2024 12:47 PM SWATCH CUTTER Anesthesia Event [facility] [address] [place] [phone] Derek Marin MD PhD Gamal Asher MD PhD 03/18/2024 1:30 PM SWATCH CUTTER - 03/18/2024 7:50 PM SWATCH CUTTER Surgery [facility] [address] [place] [address] Basil Adhikari MD Mini ascending aortic root replacement 03/15/2024 11:50 AM SWATCH CUTTER Lab [facility] Outpatient Lab [address] [place] [address] Aneurysm of ascending aorta without rupture (HCC); Pre-op evaluation 03/15/2024 10:00 AM SWATCH CUTTER Office Visit Cardiovascular and Thoracic Surgery [address] [facility] [address] [place] [address] Basil Adhikari MD Pre-op evaluation (Primary Dx); Aneurysm of ascending aorta without rupture (HCC) 03/11/2024 Telephone Cardiovascular and Thoracic Surgery [facility] [facility] [facility] [address] [place] [address] Basil Adhikari MD CLINIC NURSE appt 02/11/2024 Orders Only [facility] Cardiac Catheterization Lab [address] [place] [address] Fredrick Peña MD Iliac aneurysm (CMS/HCC) (HCC) (Primary Dx) 02/05/2024 9:00 AM SWATCH CUTTER - 02/05/2024 11:59 PM SWATCH CUTTER Hospital Encounter [facility] Neurology Testing [address] [place] [address] Numbness and tingling of upper extremity [R20.0, R20.2] (Primary Dx); Hereditary and idiopathic neuropathy Discharge Disposition: Discharge to home or self care 01/27/2024 3:30 PM SWATCH CUTTER Office Visit [facility] [address] [place] [address] Devaughn Clement MD Aneurysm of ascending aorta without rupture (HCC) (Primary Dx) 01/14/2024 12:05 AM CDT - 01/14/2024 11:59 PM CDT Hospital Encounter [facility] [phone] Discharge Disposition: Discharge to home or self care 01/14/2024 - 01/14/2024 11:59 PM CDT Hospital Encounter [facility] [phone] Discharge Disposition: Discharge to home or self care 01/13/2024 12:30 PM CDT Lab [facility] [id number] [place] [address] Hereditary and idiopathic neuropathy 01/13/2024 11:15 AM CDT Office Visit [facility] [address] [place] [address] [address] [place] [address] Earl Bran II, MD Benign paroxysmal positional vertigo, unspecified laterality (Primary Dx); Hereditary and idiopathic neuropathy from Last 3 Months Allergies No known active allergies Medications levothyroxine (SYNTHROID, LEVOTHROID) 75 mcg tablet Take 1 tablet (75 mcg total) by mouth daily Suspended PreviDent 5000 Booster Plus 1.1 % paste 08/25/19 Suspended LORazepam (ATIVAN) 0.5 mg tablet 09/23/19 20 2023 Discontinued(T herapy completed) mirtazapine (REMERON) 15 mg tablet Take 1.5 tablets (22.5 mg total) by mouth nightly 09/24/19 Suspended sildenafiL (VIAGRA) 50 mg tablet TAKE [...] both lower extremities, unspecified chronicity, unspecified vein (HCC),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,Other pulmonary embolism [...] total) by mouth daily with dinner 03/27/19 25 Suspended acetaminophen 500 mg capsuleIndicatio ns:Pain Take 2 capsules (1,000 mg total) by mouth every 6 (six) hours as needed for pain 03/27/19 25 Suspended amiodarone (PACERONE) 200 mg tablet Take 1 tablet (200 mg total) by mouth daily 03/28/19 25 2025 Suspended aspirin 81 mg chewable tablet Take 1 tablet (81 mg total) by mouth daily 03/28/19 25 2025 Suspended furosemide (LASIX) 40 mg tablet Take 1 tablet (40 mg total) by mouth daily for 7 days 03/27/19 25 2024 Discontinued potassium chloride ER (KLOR-CON) 20 mEq CR tablet Take 1 tablet (20 mEq total) by mouth daily for 7 days 03/27/19 25 2024 Discontinued Active Problems Problem Noted Date Diagnosed Date Dysphagia 04/07/2024 Hypotension 04/06/2024 Aspiration pneumonia ([facility]) 04/06/2024 Shortness of breath 04/06/2024 Acute respiratory failure 04/03/2024 Aortic root aneurysm 03/15/2024 Iliac aneurysm ([facility]) 02/11/2024 Numbness and tingling of upper extremity 024 Encounter for colonoscopy du e to history of adenomatous colonic polyps 11/03/2023 Encounter for colonoscopy following colon polyp removal 11/24/2018 Overview (11/24/2018): Added automatically from request for surgery [id number] Adenomatous polyp of cecum 06/18/2018 Overview (06/18/2018): Added automatically from request for surgery [id number] half-way current use of anticoagulant therapy 0 11/07/2016 Basal cell carcinoma (BCC) of antihelix of ear 0 04/16/2016 Ascending aortic aneurysm 09/05/2015 Deep vein thrombosis (DVT) ([facility]) 06/22/2015 Pulmonary embolism 06/22/2015 Thyroid disease Neuropathy Depression Overview (07/18/2017): Depression GARCÍA on CPAP OA (osteoarthritis) History of pulmonary embolus (PE) Immunizations Name Administration Dates Next Due Influenza, Unspecified 01/16/2024 Moderna SARS-CoV-2 Monovalent Vaccination (12+ Y RS) 05/30/2020,04/18/2020 Social History Tobacco Use Types Packs/Day Years Used Date Smoking Tobacco: Former Cigarettes 1 12 0 1962 - 1974 Smokeless Tobacco: Never Tobacco Cessation:Counseling Given: Not Answered Alcohol Use Standard Drinks/Week Comments Yes 3 (1 standard drink = 0.6 oz pur e alcohol) 2x a day [facility] Utilities Answer Date Recorded In the past 12 months has th e electric, gas, oil, or water company threatened to shut off services in your [...] often do you attend chur ch or oriental orthodox services? Never 04/06/2024 Do you belong to any clubs o r organizations such as baptism groups, unions, fraternal or athletic groups, or [...] any time in the past 12 m [facility], were you homeless or living in a intermediate (including now)? No 04/06/2024 Personal Safety Answer Date Recorded Have you ever been in or are you currently in a harmful physical or emotional relationship or is someone making you feel afraid or unsafe? Denies 04/03/2024 Sex and Gender Information Value Date Recorded Sex Assigned at Not on file Legal Sex Male 12:56 AM SWATCH CUTTER Gender Identity Not on file Sexual Orientation Straight 10/21/2019 9: 52 AM CDT Last Filed Vital Signs Vital Sign Reading Time Taken Comments Blood Pressure 102/69 04/08/2024 7:56 AM SWATCH CUTTER Pulse 81 04/08/2024 7:56 AM SWATCH CUTTER Temperature 36.9 ??C (98.5 ??F) 04/08/2024 7:56 AM CS T Respiratory Rate 18 04/08/2024 7:56 AM SWATCH CUTTER Oxygen Saturation 92% 04/08/2024 7:56 AM SWATCH CUTTER Inhaled Oxygen Concentration - - Weight 67.9 kg (149 lb 11.1 oz) 025 12:40 PM SWATCH CUTTER Height 172.7 cm (5' 8 ) 04/03/2024 10:2 0 AM SWATCH CUTTER Body Mass Index 22.76 04/03/2024 10:20 AM SWATCH CUTTER Plan of Treatment Not on file Medical Devices Implanted Type Area Mechanical Process Engineer Device Identifier Shelf Expiration Date Model / Serial / Lot Leyva Lifesciences Konect Resilia Aortic Valved Conduit 27mm [id number] - [id number] - [id number] Implanted:Qty: 1 on 03/18/2024 by Basil Adhikari MD at [facility] Prosthetic Valve N/A: Aortic Valve Leyva [employer]iences 01/06/2027 [id number] / [id number] / Tele[employer] Inc 18f Manta Vascular Closure Device 2115 - S0 - [id number] Implanted:Qty: 1 on 03/22/2024 by Basil Adhikari MD at [facility] Vascular Closure Device Teleflex [employer] Inc 01/06/2025 2115 / 0 / [id number] Cement Bone Cmw 2 20 Gm Fast Set Sterile - [id number] Implanted:Qty: 1 on 2017 by Brennon Davis MD at [facility] Right: Shoulder Depuy Orthopa[employer] Inc 10/15/2019 3322-02 0 / / [id number] Component Glenoid Comprehensive Regenerex Titanium Clay Porous Shoulder Modular Hybrid Post - [id number] Implanted:Qty: 1 on 2017 by Brennon Davis MD at [facility] Right: Shoulder Kavita [employer] Inc [id number] 01/21/2027 PT-1139 50 / / [id number] Component Glenoid Comprehensive Hybrid Large H4 Mm Shoulder Base Modular - [id number] Implanted:Qty: 1 on 2017 by Brennon Davis MD at [facility] Right: Shoulder [employer]av[employer] [id number] 03/23/2022 [id number] / / [id number] Stem Humeral Comprehensive Porous Mini L83 Mm Od15 Mm Shoulder Reverse System - [id number] Implanted:Qty: 1 on 2017 by Brennon Davis MD at [facility] Right: Shoulder [employer]av[employer] Inc [id number] 04/10/2027 [id number] / / [id number] Head Humeral Bio-Modular [place] 4 Mm Offset H22 Mm Od54 Mm Shoulder Sterile - [id number] Implanted:Qty: 1 on 2017 by Brennon Davis MD at [facility] Right: Shoulder [employer]av[employer] Inc 08/16/2019 [id number] / / [id number] Cryolife Inc Graft Biological Cardiovascular Photofix 6x8cm Acellular Dermis Pfp 6x8 - [id number] Implanted:Qty: 1 on 03/18/2024 by Basil Adhikari MD at [facility] N/A: Aorta [employer]ife Inc 10/24/2025 PFP 6X8 / / [id number] Arthrex Inc Device Closure Tigertape Sternal Cerclage Blunt Needle Ar-7289t - [id number] Implanted:Qty: 1 on 03/18/2024 by Basil Adhikari MD at [facility] N/A: Sternum Arthrex Inc 12/14/2028 AR-7289 T / / [id number] Arthrex Inc Device Closure Tigertape Sternal Cerclage Blunt Needle Ar-7289t - [id number] Implanted:Qty: 1 on 03/18/2024 by Basil Adhikari MD at [facility] N/A: Sternum Arthrex Inc 12/14/2028 AR-7289 T / / [id number] Estrada Vascular Plug Occluder Cvasc Embl Self Expanding Amplatzer [id number] Nitinol 9-Avp2-014 - S0 - [id number] Implanted:Qty: 1 on 03/22/2024 by Basil Adhikari MD at [facility] Left: Internal Iliac (Hypogastr ic) Artery Estrada Vascular [id number] 05/14/2025 9-AVP2- 014 / 0 / [id number] [employer] Excluder 18mm 14.5-16.5mm 11.5cm Stent Abrasion Resistant [id number] - [id number] - [id number] Implanted:Qty: 1 on 03/22/2024 by Basil Adhikari MD at [facility] Left: External Iliac Artery [employer] [id number] 11/17/2026 [id number] 00 / [id number] / [employer] Stent Graft Thoracic Conformable Tag [id number] - S0 - [id number] Implanted:Qty: 1 on 03/22/2024 by Basil Adhikari MD at [facility] Left: External Iliac Artery [employer] [id number] 08/14/2026 [id number] 10 / 0 / Aptera C Engineer Lisa Amplatzer 14mm 100cm 8mm 1 Layer Wire Mesh 1 Lobe Design Optimal 9-Plug-014 - S0 - [id number] Implanted:Qty: 1 on 03/22/2024 by Basil Adhikari MD at [facility] Left: Internal Iliac (Hypogastr ic) Artery Code Climate 03/16/2028 9-PLUG- 014 / 0 / [id number] Procedures * The patient is currently admitted. The information in this section might not be complete until the patient is discharged. Procedure Name Priority Date/Time Associated Diagnosis Comments EGFR Routine 04/08/2024 12:52 AM SWATCH CUTTER DIFFERENTIAL AUTO Routine 04/08/2024 12: 52 AM SWATCH CUTTER MAGNESIUM Routine 04/08/2024 12:52 AM SWATCH CUTTER RENAL FUNCTION PANEL Routine 04/08/2024 12:52 AM SWATCH CUTTER CBC WITH AUTO DIFFERENTIAL Routine 04/08/2024 12:52 AM SWATCH CUTTER EGFR Routine 04/07/2024 12:51 AM SWATCH CUTTER DIFFERENTIAL AUTO Routine 04/07/2024 12: 51 AM SWATCH CUTTER RENAL FUNCTION PANEL Routine 04/07/2024 12:51 AM SWATCH CUTTER CBC WITH AUTO DIFFERENTIAL Routine 04/07/2024 12:51 AM SWATCH CUTTER HEMOGLOBIN AND HEMATOCRIT Timed 04/06/2024 5:18 PM SWATCH CUTTER XR CHEST 1 VIEW IP Routine 04/06/2024 5:06 AM SWATCH CUTTER ADD ON LAB TEST Add-On 04/06/2024 3:29 AM SWATCH CUTTER RENAL FUNCTION PANEL Routine 04/06/2024 2:29 AM SWATCH CUTTER EGFR Routine 04/06/2024 2:29 AM SWATCH CUTTER DIFFERENTIAL AUTO Routine 04/06/2024 2:2 9 AM SWATCH CUTTER CBC WITH AUTO DIFFERENTIAL Routine 04/06/2024 2:29 AM SWATCH CUTTER PROCALCITONIN Routine 04/06/2024 2:29 AM SWATCH CUTTER BLOOD GAS, VENOUS Routine 04/06/2024 2:1 5 AM SWATCH CUTTER POCT GLUCOSE DEVICE Routine 04/05/2024 1 2:05 PM SWATCH CUTTER XR KUB ED Urgent/IP Urgent 04/05/2024 10:23 AM SWATCH CUTTER FL MODIFIED BARIUM SWALLOW W VIDEO IP Routine 04/05/2024 9:52 AM SWATCH CUTTER POCT GLUCOSE DEVICE Routine 04/05/2024 4 :30 AM SWATCH CUTTER MAGNESIUM Routine 04/05/2024 3:39 AM SWATCH CUTTER EGFR Routine 04/05/2024 3:39 AM SWATCH CUTTER CBC WITHOUT DIFFERENTIAL Routine 04/05/2024 3:39 AM SWATCH CUTTER RENAL FUNCTION PANEL Routine 04/05/2024 3:39 AM SWATCH CUTTER EGFR STAT 04/04/2024 4:18 PM SWATCH CUTTER RENAL FUNCTION PANEL STAT 04/04/2024 4:18 PM SWATCH CUTTER OSMOLALITY, URINE Routine 04/04/2024 6:1 1 AM SWATCH CUTTER CREATININE, URINE, RANDOM Routine 04/04/2024 6:11 AM SWATCH CUTTER SODIUM, URINE, RANDOM Routine 04/04/2024 6:11 AM SWATCH CUTTER EGFR Routine 04/04/2024 2:56 AM SWATCH CUTTER RENAL FUNCTION PANEL Routine 04/04/2024 2:56 AM SWATCH CUTTER TSH Routine 04/04/2024 2:56 AM SWATCH CUTTER CBC WITHOUT DIFFERENTIAL Routine 04/04/2024 2:56 AM SWATCH CUTTER EGFR Timed 04/03/2024 5:59 PM SWATCH CUTTER RENAL FUNCTION PANEL Timed 04/03/2024 5:59 PM SWATCH CUTTER MRSA ONLY (STAPHYLOCOCCUS AUREUS) PCR Routine 04/03/2024 3:55 PM SWATCH CUTTER AEROBIC CULTURE AND GRAM STAIN Routine 04/03/2024 3:55 PM SWATCH CUTTER ADD ON LAB TEST Add-On 04/03/2024 2:48 PM SWATCH CUTTER ADD ON LAB TEST Add-On 04/03/2024 2:48 PM SWATCH CUTTER ADD ON LAB TEST Add-On 04/03/2024 2:48 PM SWATCH CUTTER ADD ON LAB TEST Add-On 04/03/2024 2:48 PM SWATCH CUTTER TRANSTHORACIC ECHO (TTE) COMPLETE W DOPPLER/CF WO CONTRAST STAT 04/03/2024 2:46 PM SWATCH CUTTER URIC ACID STAT 04/03/2024 11:06 AM SWATCH CUTTER T4, FREE STAT 04/03/2024 11:06 AM SWATCH CUTTER THYROID FUNCTION CASCADE STAT 04/03/2024 11:06 AM SWATCH CUTTER CORTISOL STAT 04/03/2024 11:06 AM SWATCH CUTTER OSMOLALITY, URINE Routine 04/03/2024 11: 06 AM SWATCH CUTTER SODIUM, URINE, RANDOM Routine 04/03/2024 11:06 AM SWATCH CUTTER EGFR STAT 04/03/2024 11:06 AM SWATCH CUTTER URINALYSIS, MICROSCOPIC ONLY Routine 04/03/2024 11:06 AM SWATCH CUTTER BILIRUBIN, DIRECT STAT 04/03/2024 11: 06 AM SWATCH CUTTER CBC WITHOUT DIFFERENTIAL STAT 04/03/2024 11:06 AM SWATCH CUTTER PROTIME-INR STAT 04/03/2024 11:06 AM SWATCH CUTTER APTT STAT 04/03/2024 11:06 AM SWATCH CUTTER PRO B-TYPE NATRIURETIC PEPTIDE STAT 04/03/2024 11:06 AM SWATCH CUTTER LACTATE STAT 04/03/2024 11:06 AM SWATCH CUTTER PHOSPHORUS STAT 04/03/2024 11:06 AM SWATCH CUTTER MAGNESIUM STAT 04/03/2024 11:06 AM SWATCH CUTTER COMPREHENSIVE METABOLIC PANEL STAT 04/03/2024 11:06 AM SWATCH CUTTER TYPE AND SCREEN STAT 04/03/2024 11:06 AM SWATCH CUTTER STREP PNEUMONIAE AG, URINE Routine 04/03/2024 11:06 AM SWATCH CUTTER LEGIONELLA ANTIGEN, URINE Routine 04/03/2024 11:06 AM SWATCH CUTTER URINALYSIS AND REFLEX TO MICROSCOPIC AND CULTURE Routine 04/03/2024 11:06 AM SWATCH CUTTER XR CHEST 1 VIEW Critical/Life-T hreatening 04/03/2024 10:23 AM SWATCH CUTTER XR CHEST 1 VIEW IP Routine 03/27/2024 6:38 AM SWATCH CUTTER EGFR Routine 03/27/2024 12:27 AM SWATCH CUTTER MAGNESIUM Routine 03/27/2024 12:27 AM SWATCH CUTTER RENAL FUNCTION PANEL Routine 03/27/2024 12:27 AM SWATCH CUTTER CBC WITHOUT DIFFERENTIAL Routine 03/27/2024 12:27 AM SWATCH CUTTER URINALYSIS, MICROSCOPIC ONLY Routine 03/26/2024 11:53 AM SWATCH CUTTER URINALYSIS AND REFLEX TO MICROSCOPIC AND CULTURE Routine 03/26/2024 11:53 AM SWATCH CUTTER XR CHEST 1 VIEW IP Routine 03/26/2024 6:06 AM SWATCH CUTTER EGFR Routine 03/26/2024 12:27 AM SWATCH CUTTER MAGNESIUM Routine 03/26/2024 12:27 AM SWATCH CUTTER RENAL FUNCTION PANEL Routine 03/26/2024 12:27 AM SWATCH CUTTER CBC WITHOUT DIFFERENTIAL Routine 03/26/2024 12:27 AM SWATCH CUTTER XR CHEST 1 VIEW IP Routine 03/25/2024 5:49 AM SWATCH CUTTER EGFR Routine 03/25/2024 1:33 AM SWATCH CUTTER MAGNESIUM Routine 03/25/2024 1:33 AM SWATCH CUTTER RENAL FUNCTION PANEL Routine 03/25/2024 1:33 AM SWATCH CUTTER CBC WITHOUT DIFFERENTIAL Routine 03/25/2024 1:33 AM SWATCH CUTTER TYPE AND SCREEN Timed 03/25/2024 1:33 AM SWATCH CUTTER XR CHEST 1 VIEW IP Routine 03/24/2024 8:05 AM SWATCH CUTTER EGFR Routine 03/24/2024 2:16 AM SWATCH CUTTER MAGNESIUM Routine 03/24/2024 2:16 AM SWATCH CUTTER RENAL FUNCTION PANEL Routine 03/24/2024 2:16 AM SWATCH CUTTER CBC WITHOUT DIFFERENTIAL Routine 03/24/2024 2:16 AM SWATCH CUTTER XR CHEST 1 VIEW IP Routine 03/23/2024 6:41 AM SWATCH CUTTER CRITICAL CARE Routine 03/23/2024 6:36 AM SWATCH CUTTER Iliac aneurysm (CMS/HCC) (HCC) EGFR Routine 03/23/2024 1:16 AM SWATCH CUTTER CALCIUM, IONIZED Routine 03/23/2024 1:16 AM SWATCH CUTTER PROTIME-INR Routine 03/23/2024 1:16 AM SWATCH CUTTER MAGNESIUM Routine 03/23/2024 1:16 AM SWATCH CUTTER RENAL FUNCTION PANEL Routine 03/23/2024 1:16 AM SWATCH CUTTER CBC WITHOUT DIFFERENTIAL Routine 03/23/2024 1:16 AM SWATCH CUTTER CRITICAL CARE Routine 03/22/2024 8:16 PM SWATCH CUTTER 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 Routine 03/22/2024 6 :38 PM SWATCH CUTTER EGFR STAT 03/22/2024 6:30 PM SWATCH CUTTER CALCIUM, IONIZED STAT 03/22/2024 6:30 PM SWATCH CUTTER MAGNESIUM STAT 03/22/2024 6:30 PM SWATCH CUTTER RENAL FUNCTION PANEL STAT 03/22/2024 6:30 PM SWATCH CUTTER PROTIME-INR STAT 03/22/2024 6:30 PM SWATCH CUTTER APTT STAT 03/22/2024 6:30 PM SWATCH CUTTER CBC WITHOUT DIFFERENTIAL STAT 03/22/2024 6:30 PM SWATCH CUTTER CRITICAL CARE Routine 03/22/2024 5:43 PM SWATCH CUTTER Iliac aneurysm (CMS/HCC) (HCC) REVAS ENDOVASILIAC W STNT [id number] Routine 03/22/2024 4:52 PM SWATCH CUTTER Iliac aneurysm (CMS/HCC) (HCC) POCT ACTIVATED CLOTTING TIME, HIGH RANGE Routine 03/22/2024 4:51 PM SWATCH CUTTER POC BLOOD GAS AND CHEMISTRIES, VENOUS Routine 03/22/2024 4:29 PM SWATCH CUTTER POCT ACTIVATED CLOTTING TIME, HIGH RANGE Routine 03/22/2024 4:10 PM SWATCH CUTTER POCT ACTIVATED CLOTTING TIME, HIGH RANGE Routine 03/22/2024 4:00 PM SWATCH CUTTER POCT ACTIVATED CLOTTING TIME, HIGH RANGE Routine 03/22/2024 3:56 PM SWATCH CUTTER POCT ACTIVATED CLOTTING TIME, HIGH RANGE Routine 03/22/2024 3:28 PM SWATCH CUTTER POCT ACTIVATED CLOTTING TIME, LOW RANGE Routine 03/22/2024 3:21 PM SWATCH CUTTER IN AN PROCEDURE PLACEHOLDER Routine 03/22/2024 3:08 PM SWATCH CUTTER IN AN ELECTIVE ENDOTRACHEAL AIRWAY Routine 03/22/2024 3:08 PM SWATCH CUTTER PREPARE RBC STAT 03/22/2024 2:42 PM SWATCH CUTTER XR CHEST 1 VIEW IP Routine 03/22/2024 7:26 AM SWATCH CUTTER EGFR Routine 03/22/2024 1:34 AM SWATCH CUTTER MAGNESIUM Routine 03/22/2024 1:34 AM SWATCH CUTTER RENAL FUNCTION PANEL Routine 03/22/2024 1:34 AM SWATCH CUTTER CBC WITHOUT DIFFERENTIAL Routine 03/22/2024 1:34 AM SWATCH CUTTER TYPE AND SCREEN Timed 03/22/2024 1:34 AM SWATCH CUTTER APTT STAT 03/21/2024 8:12 PM SWATCH CUTTER APTT STAT 03/21/2024 12:40 PM SWATCH CUTTER APTT Timed 03/21/2024 10:35 AM SWATCH CUTTER XR CHEST 1 VIEW IP Routine 03/21/2024 7:43 AM SWATCH CUTTER APTT STAT 03/21/2024 2:27 AM SWATCH CUTTER EGFR Routine 03/21/2024 2:24 AM SWATCH CUTTER MAGNESIUM Routine 03/21/2024 2:24 AM SWATCH CUTTER RENAL FUNCTION PANEL Routine 03/21/2024 2:24 AM SWATCH CUTTER CBC WITHOUT DIFFERENTIAL Routine 03/21/2024 2:24 AM SWATCH CUTTER APTT STAT 03/20/2024 4:57 PM SWATCH CUTTER APTT STAT 03/20/2024 9:27 AM SWATCH CUTTER PROTIME-INR STAT 03/20/2024 9:27 AM SWATCH CUTTER XR CHEST 1 VIEW IP Routine 03/20/2024 9:17 AM SWATCH CUTTER EGFR Routine 03/20/2024 1:03 AM SWATCH CUTTER MAGNESIUM Routine 03/20/2024 1:03 AM SWATCH CUTTER CALCIUM, IONIZED Routine 03/20/2024 1:03 AM SWATCH CUTTER RENAL FUNCTION PANEL Routine 03/20/2024 1:03 AM SWATCH CUTTER CBC WITHOUT DIFFERENTIAL Routine 03/20/2024 1:03 AM SWATCH CUTTER PREPARE RBC STAT 03/19/2024 4:56 PM SWATCH CUTTER CTA ABDOMEN PELVIS W WO CONTRAST IP Routine 03/19/2024 9:06 AM SWATCH CUTTER POTASSIUM LEVEL STAT 03/19/2024 6:48 AM SWATCH CUTTER CRITICAL CARE Routine 03/19/2024 6:40 AM SWATCH CUTTER 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 IP Routine 03/19/2024 6:37 AM SWATCH CUTTER POCT GLUCOSE DEVICE Routine 03/19/2024 6 :01 AM SWATCH CUTTER POCT GLUCOSE DEVICE Routine 03/19/2024 2 :13 AM SWATCH CUTTER POCT GLUCOSE DEVICE Routine 03/19/2024 1 2:18 AM SWATCH CUTTER EGFR Routine 03/19/2024 12:04 AM SWATCH CUTTER MAGNESIUM Routine 03/19/2024 12:04 AM SWATCH CUTTER CALCIUM, IONIZED Routine 03/19/2024 12:0 4 AM SWATCH CUTTER RENAL FUNCTION PANEL Routine 03/19/2024 12:04 AM SWATCH CUTTER CBC WITHOUT DIFFERENTIAL Routine 03/19/2024 12:04 AM SWATCH CUTTER POCT GLUCOSE DEVICE Routine 03/18/2024 9 :02 PM SWATCH CUTTER EXTUBATION Routine 03/18/2024 7:38 PM SWATCH CUTTER BLOOD GAS, ARTERIAL STAT 03/18/2024 7 :23 PM SWATCH CUTTER POCT GLUCOSE DEVICE Routine 03/18/2024 7 :12 PM SWATCH CUTTER CRITICAL CARE Routine 03/18/2024 6:39 PM SWATCH CUTTER 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 Routine 03/18/2024 6 :07 PM SWATCH CUTTER XR CHEST 1 VIEW ED Urgent/IP Urgent 03/18/2024 4:41 PM SWATCH CUTTER POCT GLUCOSE DEVICE Routine 03/18/2024 4 :27 PM SWATCH CUTTER CRITICAL CARE Routine 03/18/2024 4:19 PM SWATCH CUTTER EGFR STAT 03/18/2024 4:17 PM SWATCH CUTTER APTT STAT 03/18/2024 4:17 PM SWATCH CUTTER PROTIME-INR STAT 03/18/2024 4:17 PM SWATCH CUTTER CBC WITHOUT DIFFERENTIAL STAT 03/18/2024 4:17 PM SWATCH CUTTER BLOOD GAS, ARTERIAL STAT 03/18/2024 4 :17 PM SWATCH CUTTER CALCIUM, IONIZED STAT 03/18/2024 4:17 PM SWATCH CUTTER MAGNESIUM STAT 03/18/2024 4:17 PM SWATCH CUTTER BASIC METABOLIC PANEL STAT 03/18/2024 4:17 PM SWATCH CUTTER PHOSPHORUS STAT 03/18/2024 4:17 PM SWATCH CUTTER PROTIME-INR STAT 03/18/2024 3:38 PM SWATCH CUTTER FIBRINOGEN STAT 03/18/2024 3:38 PM SWATCH CUTTER CBC WITHOUT DIFFERENTIAL STAT 03/18/2024 3:38 PM SWATCH CUTTER APTT STAT 03/18/2024 3:38 PM SWATCH CUTTER POC BLOOD GAS AND CHEMISTRIES, ARTERIAL Routine 03/18/2024 3:35 PM SWATCH CUTTER POCT ACTIVATED CLOTTING TIME, HIGH RANGE Routine 03/18/2024 3:35 PM SWATCH CUTTER POC BLOOD GAS AND CHEMISTRIES, ARTERIAL Routine 03/18/2024 2:41 PM SWATCH CUTTER POCT ACTIVATED CLOTTING TIME, HIGH RANGE Routine 03/18/2024 2:40 PM SWATCH CUTTER POC BLOOD GAS AND CHEMISTRIES, VENOUS Routine 03/18/2024 2:30 PM SWATCH CUTTER SURGICAL PATHOLOGY Routine 03/18/2024 2: 09 PM SWATCH CUTTER Aortic root aneurysm POC BLOOD GAS AND CHEMISTRIES, ARTERIAL Routine 03/18/2024 2:08 PM SWATCH CUTTER POCT ACTIVATED CLOTTING TIME, HIGH RANGE Routine 03/18/2024 2:08 PM SWATCH CUTTER POC BLOOD GAS AND CHEMISTRIES, ARTERIAL Routine 03/18/2024 1:50 PM SWATCH CUTTER POCT ACTIVATED CLOTTING TIME, HIGH RANGE Routine 03/18/2024 1:49 PM SWATCH CUTTER IN AN PROCEDURE PLACEHOLDER Routine 03/18/2024 1:41 PM SWATCH CUTTER PULMONARY ARTERY CATH Routine 03/18/2024 1:41 PM SWATCH CUTTER BW AN SHEATH INTRODUCER PERFORMABLE Routine 03/18/2024 1:41 PM SWATCH CUTTER IN AN PROCEDURE PLACEHOLDER Routine 03/18/2024 1:40 PM SWATCH CUTTER IN AN CENTRAL LINE QUADRUPLE LUMEN Routine 03/18/2024 1:40 PM SWATCH CUTTER IN AN PROCEDURE PLACEHOLDER Routine 03/18/2024 1:39 PM SWATCH CUTTER IN AN PROCEDURE PLACEHOLDER Routine 03/18/2024 1:38 PM SWATCH CUTTER IN AN PROCEDURE PLACEHOLDER Routine 03/18/2024 1:37 PM SWATCH CUTTER IN AN ELECTIVE ENDOTRACHEAL AIRWAY Routine 03/18/2024 1:37 PM SWATCH CUTTER IN AN PROCEDURE PLACEHOLDER Routine 03/18/2024 1:29 PM SWATCH CUTTER POCT ACTIVATED CLOTTING TIME, HIGH RANGE Routine 03/18/2024 1:11 PM SWATCH CUTTER REPLACEMENT AORTIC ROOT 03/18/2024 12:46 PM SWATCH CUTTER Aortic root aneurysm LIDIA ADD-ON FOR OR Routine 03/18/2024 12: 05 PM SWATCH CUTTER B CHECK SAMPLE STAT 03/18/2024 9:54 AM SWATCH CUTTER ECG 12-LEAD Routine 03/18/2024 9:34 AM SWATCH CUTTER PREPARE RBC STAT 03/18/2024 9:12 AM SWATCH CUTTER DIFFERENTIAL AUTO Routine 03/15/2024 12: 29 PM SWATCH CUTTER Aneurysm of ascending aorta without rupture (HCC) Pre-op evaluation HEMOGLOBIN A1C Routine 03/15/2024 12:29 PM SWATCH CUTTER Aneurysm of ascending aorta without rupture (HCC) Pre-op evaluation CBC WITH AUTO DIFFERENTIAL Routine 03/15/2024 12:29 PM SWATCH CUTTER Aneurysm of ascending aorta without rupture (HCC) Pre-op evaluation TYPE AND SCREEN Routine 03/15/2024 12:29 PM SWATCH CUTTER Aneurysm of ascending aorta without rupture (HCC) Pre-op evaluation EGFR Routine 03/15/2024 12:28 PM SWATCH CUTTER Aneurysm of ascending aorta without rupture (HCC) Pre-op evaluation COMPREHENSIVE METABOLIC PANEL Routine 03/15/2024 12:28 PM SWATCH CUTTER Aneurysm of ascending aorta without rupture (HCC) Pre-op evaluation EMG/NCV Routine 02/05/2024 11:10 AM SWATCH CUTTER Hereditary and idiopathic neuropathy XR TRANSFER OF OUTSIDE FILMS Routine 01/14/2024 12:05 AM CDT XR TRANSFER OF OUTSIDE FILMS Routine 01/14/2024 12:00 AM CDT NEUROMUSCULAR SPECIMEN TRACKING OUTPATIENT Routine 01/13/2024 12:27 PM CDT Hereditary and idiopathic neuropathy NEUROMUSCULAR TESTING Routine 01/13/2024 12:00 AM CDT Hereditary and idiopathic neuropathy from Last 3 Months Results * eGFR (04/08/2024 12:52 AM SWATCH CUTTER) eGFR 68 >=60 mL/min/1. 73 m2 Comment: [...] reviewed 2021. Blood 04/08/2024 12:5 2 AM SWATCH CUTTER 04/08/2024 1:05 AM SWATCH CUTTER us Tara Ram MD LAB BLOOD ORDERABLES Final Result [facility] [address] [place] [address] * Differential, auto (04/08/2024 12:52 AM SWATCH CUTTER) Neutrophil abs 4.4 1.5 - 6.5 K/cumm Imm gran abs 0.0 0.0 - 0.1 K/cumm [facility] Lymphocyte abs 0.9 0.8 - 3.3 K/cumm [facility] Monocyte abs 0.7 0.2 - 0.8 K/cumm [facility] Eosinophil abs 0.3 0.0 - 0.5 K/cumm [facility] Basophil abs 0.1 0.0 - 0.1 K/cumm [facility] Neutrophil pct 68.1 % [facility] Comment: Interpretive Data Percent cell count reference ranges are not reported, since discordance with absolute values may lead to misinterpretation of CBC data. Current Interpretive Data was last revised on 2017. Imm gran pct 0.6 % [facility] Comment: Interpretive Data Percent cell count reference ranges are not reported, since discordance with absolute values may lead to misinterpretation of CBC data. Current Interpretive Data was last revised on 2017. Lymphocyte pct 14.0 % [facility] Comment: Interpretive Data Percent cell count reference ranges are not reported, since discordance with absolute values may lead to misinterpretation of CBC data. Current Interpretive Data was last revised on 2017. Monocyte pct 10.6 % [facility] Comment: Interpretive Data Percent cell count reference ranges are not reported, since discordance with absolute values may lead to misinterpretation of CBC data. Current Interpretive Data was last revised on 2017. Eosinophil pct 5.3 % [facility] Comment: Interpretive Data Percent cell count reference ranges are not reported, since discordance with absolute values may lead to misinterpretation of CBC data. Current Interpretive Data was last revised on 2017. Basophil pct 1.4 % [facility] Comment: Interpretive Data Percent cell count reference ranges are not reported, since discordance with absolute values may lead to misinterpretation of CBC data. Current Interpretive Data was last revised on 2017. Blood 04/08/2024 12:5 2 AM SWATCH CUTTER 04/08/2024 1:05 AM SWATCH CUTTER us Tara Ram MD LAB BLOOD ORDERABLES Final Result [facility] [address] [place] [address] * (ABNORMAL) CBC with auto differential (04/08/2024 12:52 AM SWATCH CUTTER) WBC 6.4 3.8 - 9.9 K/cumm Hgb 10.5(L) 13.0 - 17.5 g/dL [facility] Hct 33.7(L) 38.9 - 50.3 % [facility] Plt 288 150 - 400 K/cumm [facility] MPV 9.1 9.1 - 12.3 fL [facility] RBC 3.74(L) 4.30 - 5.80 M/cumm [facility] MCV 90.1 81.3 - 96.4 fL [facility] MCH 28.1 27.1 - 33.3 pg [facility] MCHC 31.2(L) 32.3 - 35.7 g/dL [facility] RDW CV 12.5 11.1 - 14.9 % [facility] RDW SD 41.2 35.7 - 48.1 fL [facility] NRBC abs 0.00 0.00 - 0.01 K/cumm [facility] Blood 04/08/2024 12:5 2 AM SWATCH CUTTER 04/08/2024 1:05 AM SWATCH CUTTER Tara Ram MD LAB BLOOD ORDERABLES Final Result Performing Organization Address City/[facility]/ZIP Co de Phone Number [facility] [address] [place] [address] * Magnesium (04/08/2024 12:52 AM SWATCH CUTTER) [facility] Magnesium 2.3 1.4 - 2.5 mg/dL Blood 04/08/2024 12:5 2 AM SWATCH CUTTER 04/08/2024 1:05 AM SWATCH CUTTER Tara Ram MD LAB BLOOD ORDERABLES Final Result Performing Organization Address [facility] Co de Phone Number [facility] [address] [place] [address] * (ABNORMAL) Renal function panel (04/08/2024 12:52 AM SWATCH CUTTER) [facility] Sodium 138 135 - 145 mmol/L Potassium, pl 5.0(H) 3.3 - 4.9 mmol/L [facility] Chloride 102 97 - 110 mmol/L [facility] CO2 25 22 - 32 mmol/L [facility] Anion gap 11 2 - 15 mmol/L [facility] BUN 25 6 - 25 mg/dL [facility] Creatinine 1.07 0.80 - 1.30 mg/dL [facility] Glucose 89 70 - 199 mg/dL [facility] Comment: Interpretive Data Fasting glucose >/= 126 [...] 2022. Calcium 9.3 8.5 - 10.3 mg/dL [facility] Phosphorus, pl 3.4 2.3 - 4.5 mg/dL [facility] Albumin 3.4(L) 3.5 - 5.0 g/dL [facility] Blood 04/08/2024 12:5 2 AM SWATCH CUTTER 04/08/2024 1:05 AM SWATCH CUTTER us Tara Ram MD LAB BLOOD ORDERABLES Final Result [facility] [address] [place] [address] * eGFR (04/07/2024 12:51 AM SWATCH CUTTER) eGFR 72 >=60 mL/min/1. 73 m2 Comment: [...] reviewed 2021. Blood 04/07/2024 12:5 1 AM SWATCH CUTTER 04/07/2024 1:14 AM SWATCH CUTTER us Marissa Vitale DO LAB BLOOD ORDERABLES F inal Result [facility] [address] [place] [address] * (ABNORMAL) Differential, auto (04/07/2024 12:51 AM SWATCH CUTTER) Neutrophil abs 4.7 1.5 - 6.5 K/cumm Imm gran abs 0.0 0.0 - 0.1 K/cumm [facility] Lymphocyte abs 0.7(L) 0.8 - 3.3 K/cumm [facility] Monocyte abs 0.6 0.2 - 0.8 K/cumm [facility] Eosinophil abs 0.3 0.0 - 0.5 K/cumm [facility] Basophil abs 0.1 0.0 - 0.1 K/cumm [facility] Neutrophil pct 73.0 % [facility] Comment: Interpretive Data Percent cell count reference ranges are not reported, since discordance with absolute values may lead to misinterpretation of CBC data. Current Interpretive Data was last revised on 2017. Imm gran pct 0.3 % [facility] Comment: Interpretive Data Percent cell count reference ranges are not reported, since discordance with absolute values may lead to misinterpretation of CBC data. Current Interpretive Data was last revised on 2017. Lymphocyte pct 11.5 % [facility] Comment: Interpretive Data Percent cell count reference ranges are not reported, since discordance with absolute values may lead to misinterpretation of CBC data. Current Interpretive Data was last revised on 2017. Monocyte pct 9.5 % [facility] Comment: Interpretive Data Percent cell count reference ranges are not reported, since discordance with absolute values may lead to misinterpretation of CBC data. Current Interpretive Data was last revised on 2017. Eosinophil pct 4.5 % [facility] Comment: Interpretive Data Percent cell count reference ranges are not reported, since discordance with absolute values may lead to misinterpretation of CBC data. Current Interpretive Data was last revised on 2017. Basophil pct 1.2 % [facility] Comment: Interpretive Data Percent cell count reference ranges are not reported, since discordance with absolute values may lead to misinterpretation of CBC data. Current Interpretive Data was last revised on 2017. Blood 04/07/2024 12:5 1 AM SWATCH CUTTER 04/07/2024 1:14 AM SWATCH CUTTER Marissa Moni Vitale DO LAB BLOOD ORDERABLES F inal Result Performing Organization Address City/[facility]/ZIP Co de Phone Number [facility] [address] [place] [address] * (ABNORMAL) CBC with auto differential (04/07/2024 12:51 AM SWATCH CUTTER) [facility] WBC 6.4 3.8 - 9.9 K/cumm Hgb 9.6(L) 13.0 - 17.5 g/dL [facility] Hct 29.6(L) 38.9 - 50.3 % [facility] Plt 270 150 - 400 K/cumm [facility] MPV 9.0(L) 9.1 - 12.3 fL [facility] RBC 3.35(L) 4.30 - 5.80 M/cumm [facility] MCV 88.4 81.3 - 96.4 fL [facility] MCH 28.7 27.1 - 33.3 pg [facility] MCHC 32.4 32.3 - 35.7 g/dL [facility] RDW CV 12.5 11.1 - 14.9 % [facility] RDW SD 40.3 35.7 - 48.1 fL [facility] NRBC abs 0.00 0.00 - 0.01 K/cumm [facility] Blood 04/07/2024 12:5 1 AM SWATCH CUTTER 04/07/2024 1:14 AM SWATCH CUTTER Marissa Vitale DO LAB BLOOD ORDERABLES F inal Result Performing Organization Address City/[facility]/ZIP Co de Phone Number [facility] [address] [place] [address] * (ABNORMAL) Renal function panel (04/07/2024 12:51 AM SWATCH CUTTER) Sodium 135 135 - 145 mmol/L Potassium, pl 4.4 3.3 - 4.9 mmol/L [facility] Chloride 101 97 - 110 mmol/L [facility] CO2 26 22 - 32 mmol/L [facility] Anion gap 8 2 - 15 mmol/L [facility] BUN 28(H) 6 - 25 mg/dL [facility] Creatinine 1.03 0.80 - 1.30 mg/dL [facility] Glucose 136 70 - 199 mg/dL [facility] Comment: Interpretive Data Fasting glucose >/= 126 [...] 2022. Calcium 8.9 8.5 - 10.3 mg/dL [facility] Phosphorus, pl 2.8 2.3 - 4.5 mg/dL [facility] Albumin 3.2(L) 3.5 - 5.0 g/dL [facility] Blood 04/07/2024 12:5 1 AM SWATCH CUTTER 04/07/2024 1:14 AM SWATCH CUTTER us Marissa Vitale DO LAB BLOOD ORDERABLES F inal Result [facility] [address] [place] [address] * (ABNORMAL) Hemoglobin and hematocrit (04/06/2024 5:18 PM SWATCH CUTTER) Hgb 9.5(L) 13.0 - 17.5 g/dL Hct 29.0(L) 38.9 - 50.3 % [facility] Blood 04/06/2024 5:18 PM SWATCH CUTTER 04/06/2024 5:48 PM SWATCH CUTTER Marissa Vitale DO LAB BLOOD ORDERABLES F inal Result [facility] [address] [place] [address] * XR Chest 1 View (04/06/2024 5:06 AM SWATCH CUTTER) Anatomical Region Laterality Modality Body, Chest N/A Computed Radiogr aphy 04/06/2024 9:04 AM SWATCH CUTTER Impressions 04/06/2024 9:04 AM SWATCH CUTTER Feeding tube courses below the diaphragm, loops [...] Goldstein MD, PHD Narrative 04/06/2024 9:04 AM SWATCH CUTTER EXAMINATION: XR CHEST 1 VIEW HISTORY: Shortness [...] Add on lab test (04/06/2024 3:29 AM SWATCH CUTTER) Acceptable Yes Blood 04/06/2024 3:29 AM SWATCH CUTTER 04/06/2024 3:30 AM SWATCH CUTTER [facility]ative [facility] - 04/06/2024 3:31 AM SWATCH CUTTER Name of Test->Renal function panel us Pedro Senior MD LAB BLOOD ORDERABLES Final R esult [facility] [address] [place] [address] * eGFR (04/06/2024 2:29 AM SWATCH CUTTER) eGFR 63 >=60 mL/min/1. 73 m2 Comment: [...] last reviewed 2021. Blood 04/06/2024 2:29 AM SWATCH CUTTER 04/06/2024 2:29 AM SWATCH CUTTER us Marissa Moni Iam DO LAB BLOOD ORDERABLES F inal Result [facility] [address] [place] [address] * (ABNORMAL) Differential, auto (04/06/2024 2:29 AM SWATCH CUTTER) Neutrophil abs 7.5(H) 1.5 - 6.5 K/cumm Imm gran abs 0.0 0.0 - 0.1 K/cumm [facility] Lymphocyte abs 0.6(L) 0.8 - 3.3 K/cumm [facility] Monocyte abs 0.8 0.2 - 0.8 K/cumm [facility] Eosinophil abs 0.1 0.0 - 0.5 K/cumm [facility] Basophil abs 0.1 0.0 - 0.1 K/cumm [facility] Neutrophil pct 82.2 % [facility] Comment: Interpretive Data Percent cell count reference ranges are not reported, since discordance with absolute values may lead to misinterpretation of CBC data. Current Interpretive Data was last revised on 2017. Imm gran pct 0.4 % [facility] Comment: Interpretive Data Percent cell count reference ranges are not reported, since discordance with absolute values may lead to misinterpretation of CBC data. Current Interpretive Data was last revised on 2017. Lymphocyte pct 7.0 % [facility] Comment: Interpretive Data Percent cell count reference ranges are not reported, since discordance with absolute values may lead to misinterpretation of CBC data. Current Interpretive Data was last revised on 2017. Monocyte pct 8.2 % [facility] Comment: Interpretive Data Percent cell count reference ranges are not reported, since discordance with absolute values may lead to misinterpretation of CBC data. Current Interpretive Data was last revised on 2017. Eosinophil pct 1.4 % [facility] Comment: Interpretive Data Percent cell count reference ranges are not reported, since discordance with absolute values may lead to misinterpretation of CBC data. Current Interpretive Data was last revised on 2017. Basophil pct 0.8 % [facility] Comment: Interpretive Data Percent cell count reference ranges are not reported, since discordance with absolute values may lead to misinterpretation of CBC data. Current Interpretive Data was last revised on 2017. Blood 04/06/2024 2:29 AM SWATCH CUTTER 04/06/2024 2:29 AM SWATCH CUTTER Marissa Vitale LAB BLOOD ORDERABLES F inal Result Performing Organization Address [facility] Co de Phone Number [facility] [address] Department [employer] [place], [place] [id number] * (ABNORMAL) Procalcitonin (04/06/2024 2:29 AM SWATCH CUTTER) [facility] Procalcitonin 0.76(H) <=0.25 ng/mL Blood 04/06/2024 2:29 AM SWATCH CUTTER 04/06/2024 2:29 AM SWATCH CUTTER [facility] BLOOD ORDERABLES F inal Result Performing Organization Address [facility] Co de Phone Number [facility] [address] [place] [address] * (ABNORMAL) CBC with auto differential (04/06/2024 2:29 AM SWATCH CUTTER) [facility] WBC 9.1 3.8 - 9.9 K/cumm Hgb 9.3(L) 13.0 - 17.5 g/dL [facility] Hct 28.1(L) 38.9 - 50.3 % [facility] Plt 256 150 - 400 K/cumm [facility] MPV 9.1 9.1 - 12.3 fL [facility] RBC 3.18(L) 4.30 - 5.80 M/cumm [facility] MCV 88.4 81.3 - 96.4 fL [facility] MCH 29.2 27.1 - 33.3 pg [facility] MCHC 33.1 32.3 - 35.7 g/dL [facility] RDW CV 12.4 11.1 - 14.9 % [facility] RDW SD 40.1 35.7 - 48.1 fL [facility] NRBC abs 0.00 0.00 - 0.01 K/cumm [facility] Blood 04/06/2024 2:29 AM SWATCH CUTTER 04/06/2024 2:29 AM SWATCH CUTTER us Marissa Vitale DO LAB BLOOD ORDERABLES F inal Result [facility] [address] [place] [address] * (ABNORMAL) Renal function panel (04/06/2024 2:29 AM SWATCH CUTTER) Sodium 128(L) 135 - 145 mmol/L Potassium, pl 4.6 3.3 - 4.9 mmol/L [facility] Chloride 96(L) 97 - 110 mmol/L [facility] CO2 20(L) 22 - 32 mmol/L [facility] Anion gap 12 2 - 15 mmol/L [facility] BUN 29(H) 6 - 25 mg/dL [facility] Creatinine 1.15 0.80 - 1.30 mg/dL [facility] Glucose 144 70 - 199 mg/dL [facility] Comment: Interpretive Data Fasting glucose >/= 126 [...] 2022. Calcium 8.5 8.5 - 10.3 mg/dL [facility] Phosphorus, pl 2.8 2.3 - 4.5 mg/dL [facility] Albumin 3.0(L) 3.5 - 5.0 g/dL [facility] Blood 04/06/2024 2:29 AM SWATCH CUTTER 04/06/2024 2:29 AM SWATCH CUTTER [facility] LAB BLOOD ORDERABLES F inal Result Performing Organization Address [facility] de Phone Number [facility] [address] [place] [address] * (ABNORMAL) Blood gas, venous (04/06/2024 2:15 AM SWATCH CUTTER) pH, Venous 7.40 7.32 - 7.43 PCO2, Venous 37(L) 40 - 50 mmHg [facility] PO2, Venous 75 mmHg [facility] Comment: Interpretive Data No Reference Range Established Current Interpretive Data was last revised on 2017. HCO3 Venous, Calculated 23 20 - 30 mmol/L [facility] BE, venous -2 mmol/L [facility] Comment: nterpretive Data No Reference Range Established Current Interpretive Data was last revised on 2017. Blood 04/06/2024 2:15 AM SWATCH CUTTER 04/06/2024 2:25 AM SWATCH CUTTER Marissatracy Vitale LAB BLOOD ORDERABLES F inal Result Performing Organization Address [facility] Co de Phone Number [facility] [address] [place] [address] * POCT glucose (04/05/2024 12:05 PM SWATCH CUTTER) Glucose, POC 77 70 - 199 mg/dL Comment: For Glucose values <35 mg/dl when Hematocrit is >60 mg/dl,the test may not accurately detect significant hypoglycemia,and testing in the Laboratory should be considered if clinically indicated. Blood 04/05/2024 12:0 5 PM SWATCH CUTTER 04/05/2024 12:05 PM SWATCH CUTTER us Marissa Vitale DO LAB POCT ORDERABLES - DEVICE Final Result [facility] [address] [place] [address] * XR Kub (04/05/2024 10:23 AM SWATCH CUTTER) Anatomical Region Laterality Modality Body, Abdomen N/A Computed Radiogr aphy 04/05/2024 10:4 4 AM SWATCH CUTTER Impressions 04/05/2024 10:44 AM SWATCH CUTTER Interval placement of a Dobbhoff catheter. ??Its [...] Eloisa Tineo M.D. Narrative 04/05/2024 10:44 AM SWATCH CUTTER EXAMINATION: KUB-abdomen one view HISTORY: Dobbhoff COMPARISON: [...] Barium Swallow W Video (04/05/2024 9:52 AM SWATCH CUTTER) Anatomical Region Laterality Modality Head and Neck N/A Radio Fluoroscop y 04/05/2024 10:4 6 AM SWATCH CUTTER Impressions 04/05/2024 2:51 PM SWATCH CUTTER 1. ??There is transglottic aspiration with thin [...] Mo Stahl M.D. Narrative 04/05/2024 2:51 PM SWATCH CUTTER EXAMINATION: MODIFIED BARIUM SWALLOW ?? 04/05/2024 HISTORY: [...] Result * POCT glucose (04/05/2024 4:30 AM SWATCH CUTTER) [facility] Glucose, POC 71 70 - 199 mg/dL Comment: For Glucose values <35 mg/dl when Hematocrit is >60 mg/dl,the test may not accurately detect significant hypoglycemia,and testing in the Laboratory should be considered if clinically indicated. Blood 04/05/2024 4:30 AM SWATCH CUTTER 04/05/2024 4:30 AM SWATCH CUTTER Krishna Salcedo MD LAB POCT ORDERABLES - DEVICE Final Result [facility] [address] [place] [address] * eGFR (04/05/2024 3:39 AM SWATCH CUTTER) [facility] eGFR 65 >=60 mL/min/1. 73 m2 Comment: [...] last reviewed 2021. Blood 04/05/2024 3:39 AM SWATCH CUTTER 04/05/2024 3:53 AM SWATCH CUTTER us Tian Long MD LAB BLOOD ORDERABLES Final Result [facility] [address] [place] [address] * (ABNORMAL) CBC without differential (04/05/2024 3:39 AM SWATCH CUTTER) WBC 8.8 3.8 - 9.9 K/cumm Hgb 10.5(L) 13.0 - 17.5 g/dL [facility] Hct 32.3(L) 38.9 - 50.3 % [facility] Plt 284 150 - 400 K/cumm [facility] MPV 8.8(L) 9.1 - 12.3 fL [facility] RBC 3.67(L) 4.30 - 5.80 M/cumm [facility] MCV 88.0 81.3 - 96.4 fL [facility] MCH 28.6 27.1 - 33.3 pg [facility] MCHC 32.5 32.3 - 35.7 g/dL [facility] RDW CV 12.3 11.1 - 14.9 % [facility] RDW SD 39.8 35.7 - 48.1 fL [facility] NRBC abs 0.00 0.00 - 0.01 K/cumm [facility] Blood 04/05/2024 3:39 AM SWATCH CUTTER 04/05/2024 3:53 AM SWATCH CUTTER us Krishna Salcedo MD LAB BLOOD ORDERABLES Final R esult Performing Organization Address [facility]/ZIP Co de Phone Number [facility] [address] [place], [place] [id number] * Magnesium (04/05/2024 3:39 AM SWATCH CUTTER) [facility] Magnesium 2.2 1.4 - 2.5 mg/dL Blood 04/05/2024 3:39 AM SWATCH CUTTER 04/05/2024 3:53 AM SWATCH CUTTER Marissa Vitale DO LAB BLOOD ORDERABLES F inal Result Performing Organization Address [facility] Co de Phone Number [facility] [address] [place] [address] * (ABNORMAL) Renal function panel (04/05/2024 3:39 AM SWATCH CUTTER) [facility] Sodium 131(L) 135 - 145 mmol/L Potassium, pl 4.5 3.3 - 4.9 mmol/L [facility] Chloride 97 97 - 110 mmol/L [facility] [facility] CO2 20(L) 22 - 32 mmol/L [facility] Anion gap 14 2 - 15 mmol/L [facility] BUN 19 6 - 25 mg/dL [facility] Creatinine 1.11 0.80 - 1.30 mg/dL [facility] Glucose 63(L) 70 - 199 mg/dL [facility] Comment: Interpretive Data Fasting glucose >/= 126 [...] 2022. Calcium 8.7 8.5 - 10.3 mg/dL [facility] Phosphorus, pl 3.3 2.3 - 4.5 mg/dL [facility] Albumin 3.3(L) 3.5 - 5.0 g/dL [facility] Blood 04/05/2024 3:39 AM SWATCH CUTTER 04/05/2024 3:53 AM SWATCH CUTTER Tian Long MD LAB BLOOD ORDERABLES Final Result [facility] [address] [place] [address] * eGFR (04/04/2024 4:18 PM SWATCH CUTTER) eGFR 61 >=60 mL/min/1. 73 m2 Comment: [...] last reviewed 2021. Blood 04/04/2024 4:18 PM SWATCH CUTTER 04/04/2024 4:30 PM SWATCH CUTTER Tian Long MD LAB BLOOD ORDERABLES Final Result [facility] [address] [place] [address] * (ABNORMAL) Renal function panel (04/04/2024 4:18 PM SWATCH CUTTER) Sodium 131(L) 135 - 145 mmol/L Potassium, pl 4.7 3.3 - 4.9 mmol/L [facility] Chloride 99 97 - 110 mmol/L [facility] CO2 20(L) 22 - 32 mmol/L [facility] Anion gap 12 2 - 15 mmol/L [facility] BUN 22 6 - 25 mg/dL [facility] Creatinine 1.18 0.80 - 1.30 mg/dL [facility] Glucose 76 70 - 199 mg/dL [facility] Comment: Interpretive Data Fasting glucose >/= 126 [...] 2022. Calcium 8.6 8.5 - 10.3 mg/dL [facility] Phosphorus, pl 4.0 2.3 - 4.5 mg/dL [facility] Albumin 3.0(L) 3.5 - 5.0 g/dL [facility] Blood 04/04/2024 4:18 PM SWATCH CUTTER 04/04/2024 4:30 PM SWATCH CUTTER Tian Long MD LAB BLOOD ORDERABLES Final Result [facility] [address] [place] [address] * Sodium, urine, random (04/04/2024 6:11 AM SWATCH CUTTER) Sodium, ur 129 mmol/L Comment: Interpretive Data No reference range established. Current interpretive data was last revised 2018. Urine 04/04/2024 6:11 AM SWATCH CUTTER 04/04/2024 6:39 AM SWATCH CUTTER Tian Long MD LAB URINE ORDERABLES Final Result Performing Organization Address [facility] Co de Phone Number [facility] [address] [facility] [employer] [place], [place] [phone] * Osmolality, urine (04/04/2024 6:11 AM SWATCH CUTTER) Osmo, ur 549 300 - 800 mOsm/kg Urine 04/04/2024 6:11 AM SWATCH CUTTER 04/04/2024 6:39 AM SWATCH CUTTER Tian Long MD LAB URINE ORDERABLES Final Result Performing Organization Address [facility] de Phone Number [facility] [address] [facility] [place] [address] * Creatinine, urine, random (04/04/2024 6:11 AM SWATCH CUTTER) Creatinine Ur 71.0 mg/dL Comment: Interpretive Data No reference range established. Current interpretive data was last revised 2018. Urine 04/04/2024 6:11 AM SWATCH CUTTER 04/04/2024 6:39 AM SWATCH CUTTER Tian Long MD LAB URINE ORDERABLES Final Result Performing Organization Address [facility] Co de Phone Number [facility] [address] [facility] [place] [address] * eGFR (04/04/2024 2:56 AM SWATCH CUTTER) Pathologist [facility] eGFR 60 >=60 mL/min/1. 73 m2 Comment: [...] last reviewed 2021. Blood 04/04/2024 2:56 AM SWATCH CUTTER 04/04/2024 3:16 AM SWATCH CUTTER Tian Long MD LAB BLOOD ORDERABLES Final Result [facility] [address] [place] [address] * (ABNORMAL) CBC without differential (04/04/2024 2:56 AM SWATCH CUTTER) [facility] WBC 8.0 3.8 - 9.9 K/cumm Hgb 10.9(L) 13.0 - 17.5 g/dL [facility] Hct 32.5(L) 38.9 - 50.3 % [facility] Plt 278 150 - 400 K/cumm [facility] MPV 9.2 9.1 - 12.3 fL [facility] RBC 3.70(L) 4.30 - 5.80 M/cumm [facility] MCV 87.8 81.3 - 96.4 fL [facility] MCH 29.5 27.1 - 33.3 pg [facility] MCHC 33.5 32.3 - 35.7 g/dL [facility] RDW CV 12.6 11.1 - 14.9 % [facility] RDW SD 40.3 35.7 - 48.1 fL [facility] NRBC abs 0.00 0.00 - 0.01 K/cumm [facility] Blood 04/04/2024 2:56 AM SWATCH CUTTER 04/04/2024 3:16 AM SWATCH CUTTER Krishna Salcedo MD LAB BLOOD ORDERABLES Final R esult Performing Organization Address [facility]/ZIP Co de Phone Number [facility] [address] [place] [address] * (ABNORMAL) TSH (04/04/2024 2:56 AM SWATCH CUTTER) [facility] Thyroid Stimulating Hormone 11.20(H) 0.30 - 4.20 mcIUnit/mL Blood 04/04/2024 2:56 AM SWATCH CUTTER 04/04/2024 3:16 AM SWATCH CUTTER Krishna Salcedo MD LAB BLOOD ORDERABLES Final R esult Performing Organization Address [facility]/ZIP Co de Phone Number [facility] [address] [place] [address] * (ABNORMAL) Renal function panel (04/04/2024 2:56 AM SWATCH CUTTER) [facility] Sodium 125(L) 135 - 145 mmol/L Potassium, pl 4.6 3.3 - 4.9 mmol/L [facility] Chloride 94(L) 97 - 110 mmol/L [facility] CO2 20(L) 22 - 32 mmol/L [facility] Anion gap 11 2 - 15 mmol/L [facility] BUN 20 6 - 25 mg/dL [facility] Creatinine 1.20 0.80 - 1.30 mg/dL [facility] Glucose 70 70 - 199 mg/dL [facility] Comment: Interpretive Data Fasting glucose >/= 126 [...] 2022. Calcium 8.5 8.5 - 10.3 mg/dL [facility] Phosphorus, pl 3.9 2.3 - 4.5 mg/dL [facility] Albumin 3.0(L) 3.5 - 5.0 g/dL [facility] Blood 04/04/2024 2:56 AM SWATCH CUTTER 04/04/2024 3:16 AM SWATCH CUTTER Tian Long MD LAB BLOOD ORDERABLES Final Result [facility] [address] [place] [address] * eGFR (04/03/2024 5:59 PM SWATCH CUTTER) eGFR 65 >=60 mL/min/1. 73 m2 Comment: [...] last reviewed 2021. Blood 04/03/2024 5:59 PM SWATCH CUTTER 04/03/2024 6:07 PM SWATCH CUTTER Krishna Salcedo MD LAB BLOOD ORDERABLES Final R esult [facility] [address] [place] [address] * (ABNORMAL) Renal function panel (04/03/2024 5:59 PM SWATCH CUTTER) Sodium 126(L) 135 - 145 mmol/L Potassium, pl 4.6 3.3 - 4.9 mmol/L [facility] Chloride 94(L) 97 - 110 mmol/L [facility] CO2 20(L) 22 - 32 mmol/L [facility] Anion gap 12 2 - 15 mmol/L [facility] BUN 17 6 - 25 mg/dL [facility] Creatinine 1.11 0.80 - 1.30 mg/dL [facility] Glucose 93 70 - 199 mg/dL [facility] Comment: Interpretive Data Fasting glucose >/= 126 [...] 2022. Calcium 8.3(L) 8.5 - 10.3 mg/dL [facility] Phosphorus, pl 3.8 2.3 - 4.5 mg/dL [facility] Albumin 3.0(L) 3.5 - 5.0 g/dL [facility] Blood 04/03/2024 5:5 9 PM SWATCH CUTTER 04/03/2024 6:07 PM SWATCH CUTTER Krishna Salcedo MD LAB BLOOD ORDERABLES Final R esult Performing Organization Address [facility]/ZIP Co de Phone Number [facility] [address] Department of [employer] [place], [place] [phone] * Aerobic culture and gram stain Sputum Lung (04/03/2024 3:55 PM SWATCH CUTTER) Pathologist [facility] Direct Specimen Exam Stain: Many polymorphonuclear leukocytes seen. Many Gram Positive Cocci Many Gram Negative Bacilli Report Final Report: Heavy growth normal krupa [facility] Sputum (Lung) 04/03/2024 3:5 5 PM SWATCH CUTTER 04/03/2024 4:31 PM SWATCH CUTTER Krishna Salcedo MD LAB MICROBIOLOGY - GENERAL O RDERABLES Final Result Performing Organization Address [facility]/ZIP Co de Phone Number [facility] [address] [place] [address] * MRSA Only (Staphylococcus aureus) PCR Nasal (04/03/2024 3:55 PM SWATCH CUTTER) PCR Scrn, Methicillin resistant Staphylococcus aureus (MRSA) Not Detected Not Detected Comment: Interpretive Data Testing performed using Nucleic Acid Amplification with the kingsky Xpert MRSA NxG Assay. This assay detects target DNA from mecA, mecC and the SCCmec insertion site of Staphylococcus aureus using Real-Time PCR and has been cleared by the FDA. Performance characteristics have been verified by the [facility]. Current Interpretive Data was last revised on 2023 Nasal 04/03/2024 3:55 PM SWATCH CUTTER 04/03/2024 4:31 PM SWATCH CUTTER Result [facility] Krishna Salcedo MD LAB MICROBIOLOGY - GENERAL O RDERABLES Final Result Performing Organization Address [facility]/ZIP Co de Phone Number [facility] [address] Department [place], [place] [phone] * Cortisol - Add on lab test (04/03/2024 2:48 PM SWATCH CUTTER) Acceptable Yes Blood 04/03/2024 2:48 PM SWATCH CUTTER 04/03/2024 2:48 PM SWATCH CUTTER Narrative [facility] - 04/03/2024 2:48 PM SWATCH CUTTER Name of Test->Cortisol Tian Long MD LAB BLOOD ORDERABLES Final Result Performing Organization Address [facility] Co de Phone Number [facility] [address] Department of [place], [place] [phone] * TSH reflex Free T4 - Add on lab test (04/03/2024 2:48 PM SWATCH CUTTER) Acceptable Yes Blood 04/03/2024 2:48 PM SWATCH CUTTER 04/03/2024 2:48 PM SWATCH CUTTER Narrative [facility] - 04/03/2024 2:48 PM SWATCH CUTTER Name of Test->TSH reflex Free T4 Tian Long MD LAB BLOOD ORDERABLES Final Result Performing Organization Address [facility] Co de Phone Number [facility] [address] Department [place], [place] [phone] * Sodium, urine, random - Add on lab test (04/03/2024 2:48 PM SWATCH CUTTER) Acceptable Yes Blood 04/03/2024 2:48 PM SWATCH CUTTER 04/03/2024 2:48 PM SWATCH CUTTER Narrative [facility] - 04/03/2024 2:48 PM SWATCH CUTTER Name of Test->Sodium, urine, random Tian Long MD LAB BLOOD ORDERABLES Final Result Performing Organization Address [facility]/ZIP Co de Phone Number [facility] [address] [place] [address] * Osmolality, urine - Add on lab test (04/03/2024 2:48 PM SWATCH CUTTER) Acceptable Yes Blood 04/03/2024 2:48 PM SWATCH CUTTER 04/03/2024 2:48 PM SWATCH CUTTER Narrative [facility] - 04/03/2024 2:48 PM SWATCH CUTTER Name of Test->Osmolality, urine Tian Long MD LAB BLOOD ORDERABLES Final Result Performing Organization Address [facility] Co de Phone Number [facility] [address] Department of Laboratories [place], [place] [phone] * TRANSTHORACIC ECHO (TTE) COMPLETE W DOPPLER/CF WO CONTRAST (04/03/2024 2:46 PM SWATCH CUTTER) LV EF 50-55 % CONS SCIMAGE Anatomical Region Laterality Modality Ultrasound 04/03/2024 12:2 5 PM SWATCH CUTTER Narrative 04/03/2024 7:33 PM SWATCH CUTTER [facility] [address] [place] [address] ECHOCARDIOGRAM Patient Name: GIAN LEE E ?? : 1940 (83y 8m) ??Gender: M Study Date: 04/03/2024 12:25:32 PM Ht(Inch): 68 ??Wt(Lb): 166.01 ??BSA: 1.9 Heater Furnace: CHANDU ??Location: [address] Order Provider: KRISHNA SALCEDO BMI: 25.24 [...] ?[ 3.00 - 4.00 ] ?LVOT Peak Jeremy ?1.16 m/s ? [ 0.70 - 1.10 [...] By: Gian Trevino MD 04/03/2024 7:32:32 PM SWATCH CUTTER Procedure Note Gian Trevino MD - 04/03/2024 [facility] [address] [place] [address] ECHOCARDIOGRAM Patient Name: GIAN LEE E : 1940 (83y 8m) Gender: M Study Date: 04/03/2024 12:25:32 PM Ht(Inch): 68 Wt(Lb): 166.01 BSA: 1.9 Heater Furnace: CHANDU Location: [address] Order Provider: KRISHNA SALCEDO BMI: 25.24 [...] By: Gian Trevino MD 04/03/2024 7:32:32 PM SWATCH CUTTER us Krishna Salcedo MD CV ECHO PROCEDURES Final Res ult * (ABNORMAL) Lactate (04/03/2024 11:06 AM SWATCH CUTTER) Lactate 0.6(L) 0.7 - 2.0 mmol/L Blood 04/03/2024 11:0 6 AM SWATCH CUTTER 04/03/2024 11:15 AM SWATCH CUTTER us Krishna Salcedo MD LAB BLOOD ORDERABLES Final R esult [facility] [address] [place] [address] * eGFR (04/03/2024 11:06 AM SWATCH CUTTER) eGFR 75 >=60 mL/min/1. 73 m2 Comment: [...] reviewed 2021. Blood 04/03/2024 11:0 6 AM SWATCH CUTTER 04/03/2024 11:23 AM SWATCH CUTTER us Krishna Salcedo MD LAB BLOOD ORDERABLES Final R esult [facility] [address] [place] [address] * (ABNORMAL) Pro B-type natriuretic peptide (04/03/2024 11:06 AM SWATCH CUTTER) NT-proBNP 1,928(H) <=450 pg/mL Comment: Interpretive Comments: [...] et.al. Eur Heart J. 2006:27:330-337. 2. Russell DANIELS, Mikaela MELARA. J. AM Luciana Cardiol: Cardiovasc Imag. 2009;2: 216- 225. Interpretive Data Last Revised Date: 2017. Blood 04/03/2024 11:0 6 AM SWATCH CUTTER 04/03/2024 11:23 AM SWATCH CUTTER Krishna Salcedo MD LAB BLOOD ORDERABLES Final R esult Performing Organization Address [facility] Co de Phone Number [facility] [address] Department [place], [place] [phone] * (ABNORMAL) Thyroid Function [place] (04/03/2024 11:06 AM SWATCH CUTTER) TSH 10.50(H) 0.30 - 4.20 mcIUnit/mL Blood 04/03/2024 11:0 6 AM SWATCH CUTTER 04/03/2024 11:23 AM SWATCH CUTTER Krishna Salcedo MD LAB BLOOD ORDERABLES Final R esult Performing Organization Address [facility] Co de Phone Number [facility] [address] [place] [address] * (ABNORMAL) Urinalysis reflex to microscopic and culture Urine (04/03/2024 11:06 AM SWATCH CUTTER) Color, ur Yellow Yellow Clarity, ur Clear Clear [facility] Specific gravity, ur 1.042(H) 1.003 - 1.030 [facility] pH, urine 7.0 [facility] Comment: Interpretive Data ? Urine pH is affected by diet, medications, systemic acid-base disturbances, and renal tubular function. ??pH may affect urinary stone formation. ??For example, urine pH below 6.0 may help reduce the tendency for calcium phosphate stones and pH greater than 6.0 may reduce the tendency for uric acid stone formation. Source: [facility] Current Interpretive Data was last revised on 2017 Protein, ur ql Trace Negative [facility] Glucose, ur ql Negative Negative [facility] Ketones, ur Negative Negative [facility] Bilirubin, ur Negative Negative [facility] Blood, ur 3+(A) Negative [facility] Urobilinogen, ur <2.0 <2.0 mg/dL [facility] Nitrite, ur Negative Negative [facility] Leukocyte esterase, ur Negative Negative [facility] UA reflex comment Reflex to microscopic UA will be performed. [facility] Urine 04/03/2024 11:0 6 AM SWATCH CUTTER 04/03/2024 11:06 AM SWATCH CUTTER Krishna Salcedo MD LAB MICROBIOLOGY - GENERAL O SURAJERAKESHIA Final Result Performing Organization Address [facility] de Phone Number [facility] [address] [place] [address] * Strep pneumoniae antigen, urine Urine (04/03/2024 11:06 AM SWATCH CUTTER) S. pneumoniae Ag Negative Negative Comment: Interpretive [...] on 2022 Urine 04/03/2024 11:0 6 AM SWATCH CUTTER 04/03/2024 11:32 AM SWATCH CUTTER Krishna Salcedo MD LAB MICROBIOLOGY - GENERAL O RDERABLES Final Result Performing Organization Address [facility] Co de Phone Number [facility] [address] [place] [address] * Legionella antigen Urine (04/03/2024 11:06 AM SWATCH CUTTER) Legionella Ag Negative Negative Comment: Interpretive Data This test detects only Legionella pneumophila serogroup 1 antigen. ?? Current interpretive data was last revised on 2019. Urine 04/03/2024 11:0 6 AM SWATCH CUTTER 04/03/2024 11:32 AM SWATCH CUTTER Krishna Salcedo MD LAB MICROBIOLOGY - GENERAL O RDERABLES Final Result Performing Organization Address [facility] Co de Phone Number [facility] [address] Department of [place], [place] [phone] * Sodium, urine, random (04/03/2024 11:06 AM SWATCH CUTTER) Pathologist [facility] Sodium, ur 145 mmol/L Comment: Interpretive Data No reference range established. Current interpretive data was last revised 2018. Urine 04/03/2024 11:0 6 AM SWATCH CUTTER 04/03/2024 3:13 PM SWATCH CUTTER Krishna Salcedo MD LAB URINE ORDERABLES Final R esult Performing Organization Address [facility] de Phone Number [facility] [address] [place] [address] * Osmolality, urine (04/03/2024 11:06 AM SWATCH CUTTER) Pathologist [facility] Osmo, ur 526 300 - 800 mOsm/kg Urine 04/03/2024 11:0 6 AM SWATCH CUTTER 04/03/2024 3:14 PM SWATCH CUTTER Krishan Salcedo MD LAB URINE ORDERABLES Final R esult Performing Organization Address [facility] de Phone Number [facility] [address] [facility] [place] [address] * (ABNORMAL) Urinalysis, microscopic only (04/03/2024 11:06 AM SWATCH CUTTER) WBC, ur 0-5 0 - 5 /HPF RBC, ur >50(A) 0 - 2 /HPF [facility] Bacteria, ur Trace(A) [facility] Culture Reflex Comment Reflex conditions for urine culture (WBC >10) not met. [facility] Urine 04/03/2024 11:0 6 AM SWATCH CUTTER 04/03/2024 11:23 AM SWATCH CUTTER Krishna Salcedo MD LAB URINE ORDERABLES Final R esult Performing Organization Address [facility] Co de Phone Number [facility] [address] [place] [address] * (ABNORMAL) aPTT (04/03/2024 11:06 AM SWATCH CUTTER) aPTT 39(H) 28 - 38 sec Comment: Interpretive Data Heparin therapeutic range: 66.0 - 100.0 seconds. Range based on correlation with therapeutic heparin activity range of 0.3 - 0.7 Units/mL. Current interpretive data was last revised on 2022. Blood 04/03/2024 11:0 6 AM SWATCH CUTTER 04/03/2024 11:22 AM SWATCH CUTTER Krishna Salcedo MD LAB BLOOD ORDERABLES Final R [facility] Performing Organization Address [facility] de Phone Number [facility] [address] [place] [address] * (ABNORMAL) Protime-INR (04/03/2024 11:06 AM SWATCH CUTTER) PT 17.7(H) 9.7 - 13.0 sec INR 1.62(H) 0.90 - 1.20 [facility] Comment: Interpretive data Oral anticoagulant therapeutic ranges: Venous thromboembolism prophylaxis or treatment: 2.0-3.0 CARDIOLOGY Standard range: 2.0-3.0 High-intensity range: 2.5-3.5 Refer to indication-specific guidelines for appropriate target ranges for prosthetic heart valve replacement. Current interpretive data was last revised on 2019. Blood 04/03/2024 11:0 6 AM SWATCH CUTTER 04/03/2024 11:22 AM SWATCH CUTTER Krishna Salcedo MD LAB BLOOD ORDERABLES Final R esult Performing Organization Address [facility] Co de Phone Number [facility] [address] Department of [place], [place] [phone] * (ABNORMAL) CBC without differential (04/03/2024 11:06 AM SWATCH CUTTER) WBC 8.6 3.8 - 9.9 K/cumm Hgb 10.0(L) 13.0 - 17.5 g/dL [facility] Hct 30.8(L) 38.9 - 50.3 % [facility] Plt 249 150 - 400 K/cumm [facility] MPV 9.1 9.1 - 12.3 fL [facility] RBC 3.43(L) 4.30 - 5.80 M/cumm [facility] MCV 89.8 81.3 - 96.4 fL [facility] MCH 29.2 27.1 - 33.3 pg [facility] MCHC 32.5 32.3 - 35.7 g/dL [facility] RDW CV 12.7 11.1 - 14.9 % [facility] RDW SD 41.0 35.7 - 48.1 fL [facility] NRBC abs 0.00 0.00 - 0.01 K/cumm [facility] Blood 04/03/2024 11:0 6 AM SWATCH CUTTER 04/03/2024 11:23 AM SWATCH CUTTER Narrative [facility] - 04/03/2024 11:32 AM SWATCH CUTTER Baseline prior to rivaroxaban initiation us Krishna Salcedo MD LAB BLOOD ORDERABLES Final R esult Performing Organization Address [facility]/ZIP Co de Phone Number [facility] [address] Department of [place], [place] [phone] * Type and screen (04/03/2024 11:06 AM SWATCH CUTTER) ABO Rh O Positive Alex, indirect Negative [facility] Blood 04/03/2024 11:0 6 AM SWATCH CUTTER 04/03/2024 11:25 AM SWATCH CUTTER Narrative [facility] - 04/03/2024 12:03 PM SWATCH CUTTER Has the patient had Daratumumab or Isatuximab in the past 6 months?->Unknown Krishna Salcedo MD LAB BLOOD BANK TEST ORDERABL ES Final Result Performing Organization Address [facility] Co de Phone Number [facility] [address] [place] [address] * Uric acid (04/03/2024 11:06 AM SWATCH CUTTER) [facility] Uric acid 3.4 3.0 - 8.0 mg/dL Blood 04/03/2024 11:0 6 AM SWATCH CUTTER 04/03/2024 11:23 AM SWATCH CUTTER Krishna Salcedo MD LAB BLOOD ORDERABLES Final R esult Performing Organization Address [facility] de Phone Number [facility] [address] [place] [address] * T4, free (04/03/2024 11:06 AM SWATCH CUTTER) [facility] Free T4 0.95 0.90 - 1.70 ng/dL Blood 04/03/2024 11:0 6 AM SWATCH CUTTER 04/03/2024 11:23 AM SWATCH CUTTER Narrative [facility] - 04/03/2024 2:33 PM SWATCH CUTTER This test was reflexed from a TSH result. Krishna Salcedo MD LAB BLOOD ORDERABLES Final R esult Performing Organization Address [facility] de Phone Number [facility] [address] [place] [address] * Phosphorus (04/03/2024 11:06 AM SWATCH CUTTER) [facility] Phosphorus, pl 3.5 2.3 - 4.5 mg/dL Blood 04/03/2024 11:0 6 AM SWATCH CUTTER 04/03/2024 11:23 AM SWATCH CUTTER Krishna Salcedo MD LAB BLOOD ORDERABLES Final R esult Performing Organization Address [facility] de Phone Number [facility] [address] [facility] [place] [address] * Magnesium (04/03/2024 11:06 AM SWATCH CUTTER) Magnesium 2.0 1.4 - 2.5 mg/dL Blood 04/03/2024 11:0 6 AM SWATCH CUTTER 04/03/2024 11:23 AM SWATCH CUTTER Krishna Salcedo MD LAB BLOOD ORDERABLES Final R esult Performing Organization Address [facility] de Phone Number [facility] [address] [facility] [place] [address] * Cortisol (04/03/2024 11:06 AM SWATCH CUTTER) Cortisol 8.3 4.8 - 19.5 mcg/dl Blood 04/03/2024 11:0 6 AM SWATCH CUTTER 04/03/2024 11:23 AM SWATCH CUTTER Krishna Salcedo MD LAB BLOOD ORDERABLES Final R esult Performing Organization Address [facility] de Phone Number [facility] [address] [facility] [place] [address] * Bilirubin, direct (04/03/2024 11:06 AM SWATCH CUTTER) Bilirubin, direct 0.2 0.1 - 0.3 mg/dL Blood 04/03/2024 11:0 6 AM SWATCH CUTTER 04/03/2024 11:23 AM SWATCH CUTTER Krishna Salcedo MD LAB BLOOD ORDERABLES Final R esult [facility] [address] [place] [address] * (ABNORMAL) Comprehensive metabolic panel (04/03/2024 11:06 AM SWATCH CUTTER) Sodium 122(L) 135 - 145 mmol/L Potassium, pl 4.4 3.3 - 4.9 mmol/L [facility] Chloride 89(L) 97 - 110 mmol/L [facility] CO2 21(L) 22 - 32 mmol/L [facility] Anion gap 12 2 - 15 mmol/L [facility] BUN 17 6 - 25 mg/dL [facility] Creatinine 0.99 0.80 - 1.30 mg/dL [facility] Glucose 79 70 - 199 mg/dL [facility] Comment: Interpretive Data Fasting glucose >/= 126 [...] 2022. Calcium 8.1(L) 8.5 - 10.3 mg/dL [facility] Bilirubin, total 0.5 0.1 - 1.2 mg/dL [facility] Protein, pl 5.6(L) 6.5 - 8.5 g/dL [facility] Albumin 3.0(L) 3.5 - 5.0 g/dL [facility] Alk phos 67 40 - 130 Units/L [facility] ALT 19 7 - 55 Units/L [facility] AST 31 10 - 50 Units/L [facility] Blood 04/03/2024 11:0 6 AM SWATCH CUTTER 04/03/2024 11:23 AM SWATCH CUTTER Krishna Salcedo MD LAB BLOOD ORDERABLES Final R esult [facility] [address] [place] [address] * X-ray chest 1 view (Portable) (04/03/2024 10:23 AM SWATCH CUTTER) Anatomical Region Laterality Modality Body, Chest N/A Computed Radiogr aphy 04/03/2024 10:3 4 AM SWATCH CUTTER Impressions 04/03/2024 10:34 AM SWATCH CUTTER Persistent left pleural effusion and basilar atelectasis with improving aeration of the right lung. Electronically signed by: Isiah David M.D. Narrative 04/03/2024 10:34 AM SWATCH CUTTER EXAMINATION: XR CHEST 1 VIEW HISTORY: Pneumonia [...] Portable - in AM (03/27/2024 6:38 AM SWATCH CUTTER) Anatomical Region Laterality Modality Body, Chest N/A Computed Radiogr aphy 03/27/2024 7:33 AM SWATCH CUTTER Impressions 03/27/2024 7:33 AM SWATCH CUTTER Bibasilar atelectasis with persistent left pleural effusion. Electronically signed by: Basil Youssef M.D. Narrative 03/27/2024 7:33 AM SWATCH CUTTER EXAMINATION: XR CHEST 1 VIEW HISTORY: Pleural [...] signed by: Basil Youssef M.D. Ale Mcknight NP IMG XR PROCEDURES Final Result * eGFR (03/27/2024 12:27 AM SWATCH CUTTER) eGFR 74 >=60 mL/min/1. 73 m2 Comment: [...] reviewed 2021. Blood 03/27/2024 12:2 7 AM SWATCH CUTTER 03/27/2024 1:07 AM SWATCH CUTTER Ale Mcknight NP LAB BLOOD ORDERABLES Fin al Result [facility] [address] [place] [address] * (ABNORMAL) CBC without differential (03/27/2024 12:27 AM SWATCH CUTTER) WBC 8.8 3.8 - 9.9 K/cumm Hgb 9.5(L) 13.0 - 17.5 g/dL [facility] Hct 29.3(L) 38.9 - 50.3 % [facility] Plt 138(L) 150 - 400 K/cumm [facility] MPV 9.7 9.1 - 12.3 fL [facility] RBC 3.18(L) 4.30 - 5.80 M/cumm [facility] MCV 92.1 81.3 - 96.4 fL [facility] MCH 29.9 27.1 - 33.3 pg [facility] MCHC 32.4 32.3 - 35.7 g/dL [facility] RDW CV 12.9 11.1 - 14.9 % [facility] RDW SD 43.4 35.7 - 48.1 fL [facility] NRBC abs 0.00 0.00 - 0.01 K/cumm [facility] Blood 03/27/2024 12:2 7 AM SWATCH CUTTER 03/27/2024 1:07 AM SWATCH CUTTER Ale Mcknight CLINIC NURSE LAB BLOOD ORDERABLES Fin al Result Performing Organization Address [facility]/ZIP Co de Phone Number [facility] [address] [place] [address] * Magnesium (03/27/2024 12:27 AM SWATCH CUTTER) [facility] Magnesium 2.1 1.4 - 2.5 mg/dL Blood 03/27/2024 12:2 7 AM SWATCH CUTTER 03/27/2024 1:07 AM SWATCH CUTTER Ale Mcknight CLINIC NURSE LAB BLOOD ORDERABLES Fin al Result Performing Organization Address [facility] de Phone Number [facility] [address] [place] [address] * (ABNORMAL) Renal function panel (03/27/2024 12:27 AM SWATCH CUTTER) [facility] Sodium 134(L) 135 - 145 mmol/L Potassium, pl 4.3 3.3 - 4.9 mmol/L [facility] Chloride 101 97 - 110 mmol/L [facility] CO2 24 22 - 32 mmol/L [facility] Anion gap 9 2 - 15 mmol/L [facility] BUN 16 6 - 25 mg/dL [facility] Creatinine 1.00 0.80 - 1.30 mg/dL [facility] Glucose 112 70 - 199 mg/dL [facility] Comment: Interpretive Data Fasting glucose >/= 126 [...] 2022. Calcium 8.4(L) 8.5 - 10.3 mg/dL [facility] Phosphorus, pl 4.0 2.3 - 4.5 mg/dL [facility] Albumin 3.1(L) 3.5 - 5.0 g/dL [facility] Blood 03/27/2024 12:2 7 AM SWATCH CUTTER 03/27/2024 1:07 AM SWATCH CUTTER us Ale Mcknight CLINIC NURSE LAB BLOOD ORDERABLES Fin al Result [facility] [address] [place] [address] * (ABNORMAL) Urinalysis reflex to microscopic and culture Urine (03/26/2024 11:53 AM SWATCH CUTTER) Color, ur Yellow Yellow Clarity, ur Clear Clear [facility] Specific gravity, ur 1.031(H) 1.003 - 1.030 [facility] pH, urine 6.0 [facility] Comment: Interpretive Data ? Urine pH is affected by diet, medications, systemic acid-base disturbances, and renal tubular function. ??pH may affect urinary stone formation. ??For example, urine pH below 6.0 may help reduce the tendency for calcium phosphate stones and pH greater than 6.0 may reduce the tendency for uric acid stone formation. Source: [facility] Current Interpretive Data was last revised on 2017 Protein, ur ql 1+(A) Negative [facility] Glucose, ur ql Negative Negative [facility] Ketones, ur Negative Negative [facility] Bilirubin, ur Negative Negative [facility] Blood, ur Negative Negative [facility] Urobilinogen, ur 2.0(A) <2.0 mg/dL [facility] Nitrite, ur Negative Negative [facility] Leukocyte esterase, ur 2+(A) Negative [facility] UA reflex comment Reflex to microscopic UA will be performed. [facility] Urine 03/26/2024 11:5 3 AM SWATCH CUTTER 03/26/2024 11:53 AM SWATCH CUTTER Benny SOLIS LAB MICROBIOLOGY - GENERAL O RDERABLES Final Result Performing Organization Address [facility] Co de Phone Number [facility] [address] Department of Laboratories [place], [place] [id number] * (ABNORMAL) Urinalysis, microscopic only (03/26/2024 11:53 AM SWATCH CUTTER) WBC, ur 6-10(A) 0 - 5 /HPF RBC, ur 3-5(A) 0 - 2 /HPF [facility] Epithelial cells, squamous, ur 1-5 0 - 5 /HPF [facility] Mucous, ur Present(A) [facility] Culture Reflex Comment Reflex conditions for urine culture (WBC >10) not met. [facility] Urine 03/26/2024 11:5 3 AM SWATCH CUTTER 03/26/2024 12:04 PM SWATCH CUTTER Benny SOLIS LAB URINE ORDERABLES Final R esult Performing Organization Address [facility] Co de Phone Number [facility] [address] Department of Laboratories [place], [place] [id number] * XR Chest 1 View - Portable - in AM (03/26/2024 6:06 AM SWATCH CUTTER) Anatomical Region Laterality Modality Body, Chest N/A Computed Radiogr aphy 03/26/2024 7:40 AM SWATCH CUTTER Impressions 03/26/2024 7:40 AM SWATCH CUTTER Comparison 03/25/2024 5:47 AM. ??Median sternotomy wires are intact. ??Right internal jugular central venous catheter tip at superior cavoatrial junction. Cardiomediastinal silhouette stable. ??Aortic valve replacement again noted. Moderate left and mild right bibasilar atelectasis and small left pleural effusion again noted. ??No pulmonary edema seen. ??No pneumothorax seen. Electronically signed by: Dion Pinto M.D. Narrative 03/26/2024 7:40 AM SWATCH CUTTER EXAMINATION: Chest 1 view Procedure Note Dion [...] by: Dion Pinto M.D. us Ale Mcknight CLINIC NURSE IMG XR PROCEDURES Final Result * eGFR (03/26/2024 12:27 AM SWATCH CUTTER) eGFR 65 >=60 mL/min/1. 73 m2 Comment: [...] reviewed 2021. Blood 03/26/2024 12:2 7 AM SWATCH CUTTER 03/26/2024 12:50 AM SWATCH CUTTER Ale Mcknight CLINIC NURSE LAB BLOOD ORDERABLES Fin al Result Performing Organization Address [facility] Co de Phone Number [facility] [address] Department [place], [place] [id number] * (ABNORMAL) CBC without differential (03/26/2024 12:27 AM SWATCH CUTTER) WBC 10.0(H) 3.8 - 9.9 K/cumm Hgb 9.8(L) 13.0 - 17.5 g/dL [facility] Hct 29.2(L) 38.9 - 50.3 % [facility] Plt 162 150 - 400 K/cumm [facility] MPV 9.1 9.1 - 12.3 fL [facility] RBC 3.22(L) 4.30 - 5.80 M/cumm [facility] MCV 90.7 81.3 - 96.4 fL [facility] MCH 30.4 27.1 - 33.3 pg [facility] MCHC 33.6 32.3 - 35.7 g/dL [facility] RDW CV 12.9 11.1 - 14.9 % [facility] RDW SD 42.5 35.7 - 48.1 fL [facility] NRBC abs 0.00 0.00 - 0.01 K/cumm [facility] Blood 03/26/2024 12:2 7 AM SWATCH CUTTER 03/26/2024 12:50 AM SWATCH CUTTER Ale Mcknight CLINIC NURSE LAB BLOOD ORDERABLES Fin al Result Performing Organization Address [facility]/ZIP Co de Phone Number [facility] [address] [place] [address] * Magnesium (03/26/2024 12:27 AM SWATCH CUTTER) Magnesium 2.0 1.4 - 2.5 mg/dL Blood 03/26/2024 12:2 7 AM SWATCH CUTTER 03/26/2024 12:50 AM SWATCH CUTTER Ale Mcknight CLINIC NURSE LAB BLOOD ORDERABLES Fin al Result [facility] [address] [place] [address] * (ABNORMAL) Renal function panel (03/26/2024 12:27 AM SWATCH CUTTER) Pathologist [facility] Sodium 135 135 - 145 mmol/L Potassium, pl 4.2 3.3 - 4.9 mmol/L [facility] Chloride 100 97 - 110 mmol/L [facility] CO2 23 22 - 32 mmol/L [facility] Anion gap 12 2 - 15 mmol/L [facility] BUN 16 6 - 25 mg/dL [facility] Creatinine 1.12 0.80 - 1.30 mg/dL [facility] Glucose 100 70 - 199 mg/dL [facility] Comment: Interpretive Data Fasting glucose >/= 126 [...] 2022. Calcium 8.3(L) 8.5 - 10.3 mg/dL [facility] Phosphorus, pl 3.8 2.3 - 4.5 mg/dL [facility] Albumin 3.3(L) 3.5 - 5.0 g/dL [facility] Blood 03/26/2024 12:2 7 AM SWATCH CUTTER 03/26/2024 12:50 AM SWATCH CUTTER Ale Mcknight CLINIC NURSE LAB BLOOD ORDERABLES Fin al Result [facility] [address] [place] [address] * XR Chest 1 View - Portable - in AM (03/25/2024 5:49 AM SWATCH CUTTER) Anatomical Region Laterality Modality Body, Chest N/A Computed Radiogr aphy 03/25/2024 8:22 AM SWATCH CUTTER Impressions 03/25/2024 8:22 AM SWATCH CUTTER Comparison is made to chest radiograph dated [...] Farzana Guzman M.D. Narrative 03/25/2024 8:22 AM SWATCH CUTTER EXAMINATION: 1 view chest radiograph Procedure Note [...] signed by: Farzana Guzman M.D. Ale Mcknight CLINIC NURSE IMG XR PROCEDURES Final Result * eGFR (03/25/2024 1:33 AM SWATCH CUTTER) [facility] Signature eGFR 76 >=60 mL/min/1. 73 m2 Comment: [...] last reviewed 2021. Blood 03/25/2024 1:33 AM SWATCH CUTTER 03/25/2024 1:55 AM SWATCH CUTTER Ale Mcknight CLINIC NURSE LAB BLOOD ORDERABLES Fin al Result [facility] [address] [place] [address] * (ABNORMAL) CBC without differential (03/25/2024 1:33 AM SWATCH CUTTER) WBC 9.0 3.8 - 9.9 K/cumm Hgb 9.3(L) 13.0 - 17.5 g/dL [facility] Hct 28.0(L) 38.9 - 50.3 % [facility] Plt 131(L) 150 - 400 K/cumm [facility] MPV 9.8 9.1 - 12.3 fL [facility] RBC 3.08(L) 4.30 - 5.80 M/cumm [facility] MCV 90.9 81.3 - 96.4 fL [facility] MCH 30.2 27.1 - 33.3 pg [facility] MCHC 33.2 32.3 - 35.7 g/dL [facility] RDW CV 12.9 11.1 - 14.9 % [facility] RDW SD 42.4 35.7 - 48.1 fL [facility] NRBC abs 0.00 0.00 - 0.01 K/cumm [facility] Blood 03/25/2024 1:33 AM SWATCH CUTTER 03/25/2024 1:55 AM SWATCH CUTTER Ale Mcknight CLINIC NURSE LAB BLOOD ORDERABLES Fin al Result Performing Organization Address [facility] Co de Phone Number [facility] [address] [place] [address] * Type and screen (03/25/2024 1:33 AM SWATCH CUTTER) ABO Rh O Positive Alex, indirect Negative [facility] Blood 03/25/2024 1:33 AM SWATCH CUTTER 03/25/2024 2:03 AM SWATCH CUTTER Narrative [facility] - 03/25/2024 2:34 AM SWATCH CUTTER Has the patient had Daratumumab or Isatuximab in the past 6 months?->Unknown Ale Mcknight CLINIC NURSE LAB BLOOD BANK TEST ORDE RABLES Final Result Performing Organization Address [facility] Co de Phone Number [facility] [address] [place] [address] * Magnesium (03/25/2024 1:33 AM SWATCH CUTTER) Magnesium 2.0 1.4 - 2.5 mg/dL Blood 03/25/2024 1:33 AM SWATCH CUTTER 03/25/2024 1:55 AM SWATCH CUTTER Ale Mcknight CLINIC NURSE LAB BLOOD ORDERABLES Fin al Result Performing Organization Address [facility] Co de Phone Number [facility] [address] [place] [address] * (ABNORMAL) Renal function panel (03/25/2024 1:33 AM SWATCH CUTTER) Sodium 132(L) 135 - 145 mmol/L Potassium, pl 4.6 3.3 - 4.9 mmol/L [facility] Chloride 99 97 - 110 mmol/L [facility] CO2 22 22 - 32 mmol/L [facility] Anion gap 11 2 - 15 mmol/L [facility] BUN 16 6 - 25 mg/dL [facility] Creatinine 0.98 0.80 - 1.30 mg/dL [facility] Glucose 104 70 - 199 mg/dL [facility] Comment: Interpretive Data Fasting glucose >/= 126 [...] 2022. Calcium 8.0(L) 8.5 - 10.3 mg/dL [facility] Phosphorus, pl 2.8 2.3 - 4.5 mg/dL [facility] Albumin 2.8(L) 3.5 - 5.0 g/dL [facility] Blood 03/25/2024 1:33 AM SWATCH CUTTER 03/25/2024 1:55 AM SWATCH CUTTER Ale Mcknight NP LAB BLOOD ORDERABLES Fin al Result Performing Organization Address [facility] Co de Phone Number [facility] [address] [place] [address] * XR Chest 1 View - Portable - in AM (03/24/2024 8:05 AM SWATCH CUTTER) Anatomical Region Laterality Modality Body, Chest N/A Computed Radiogr aphy 03/24/2024 8:15 AM SWATCH CUTTER Impressions 03/24/2024 8:15 AM SWATCH CUTTER Single view chest exam is compared to [...] Williams Murillo M.D. Narrative 03/24/2024 8:15 AM SWATCH CUTTER EXAMINATION: XR CHEST 1 VIEW History: Pleural [...] Final Result * eGFR (03/24/2024 2:16 AM SWATCH CUTTER) eGFR 73 >=60 mL/min/1. 73 m2 Comment: [...] last reviewed 2021. Blood 03/24/2024 2:16 AM SWATCH CUTTER 03/24/2024 2:21 AM SWATCH CUTTER us Ale Mcknight NP LAB BLOOD ORDERABLES Fin al Result [facility] [address] [place] [address] * (ABNORMAL) CBC without differential (03/24/2024 2:16 AM SWATCH CUTTER) WBC 7.5 3.8 - 9.9 K/cumm Hgb 9.6(L) 13.0 - 17.5 g/dL [facility] Hct 28.7(L) 38.9 - 50.3 % [facility] Plt 143(L) 150 - 400 K/cumm [facility] MPV 9.5 9.1 - 12.3 fL [facility] RBC 3.19(L) 4.30 - 5.80 M/cumm [facility] MCV 90.0 81.3 - 96.4 fL [facility] MCH 30.1 27.1 - 33.3 pg [facility] MCHC 33.4 32.3 - 35.7 g/dL [facility] RDW CV 12.7 11.1 - 14.9 % [facility] RDW SD 41.8 35.7 - 48.1 fL [facility] NRBC abs 0.00 0.00 - 0.01 K/cumm [facility] Blood 03/24/2024 2:16 AM SWATCH CUTTER 03/24/2024 2:21 AM SWATCH CUTTER Ale Mcknight CLINIC NURSE LAB BLOOD ORDERABLES Fin al Result [facility] [address] [employer] [place], [place] [id number] * Magnesium (03/24/2024 2:16 AM SWATCH CUTTER) [facility] Magnesium 2.2 1.4 - 2.5 mg/dL Blood 03/24/2024 2:16 AM SWATCH CUTTER 03/24/2024 2:21 AM SWATCH CUTTER Ale Mcknight CLINIC NURSE LAB BLOOD ORDERABLES Fin al Result Performing Organization Address [facility]/ZIP Co de Phone Number [facility] [address] [place] [address] * (ABNORMAL) Renal function panel (03/24/2024 2:16 AM SWATCH CUTTER) [facility] Sodium 134(L) 135 - 145 mmol/L Potassium, pl 4.2 3.3 - 4.9 mmol/L [facility] Chloride 103 97 - 110 mmol/L [facility] CO2 22 22 - 32 mmol/L [facility] Anion gap 9 2 - 15 mmol/L [facility] BUN 16 6 - 25 mg/dL [facility] Creatinine 1.01 0.80 - 1.30 mg/dL [facility] Glucose 103 70 - 199 mg/dL [facility] Comment: Interpretive Data Fasting glucose >/= 126 [...] 2022. Calcium 8.3(L) 8.5 - 10.3 mg/dL [facility] Phosphorus, pl 2.2(L) 2.3 - 4.5 mg/dL [facility] Albumin 2.9(L) 3.5 - 5.0 g/dL [facility] Blood 03/24/2024 2:16 AM SWATCH CUTTER 03/24/2024 2:21 AM SWATCH CUTTER Ale Mcknight NP LAB BLOOD ORDERABLES [facility] al Result [facility] [address] [place] [address] * XR Chest 1 View - Portable - in AM (03/23/2024 6:41 AM SWATCH CUTTER) Anatomical Region Laterality Modality Body, Chest N/A Computed Radiogr aphy 03/23/2024 8:08 AM SWATCH CUTTER Impressions 03/23/2024 8:08 AM SWATCH CUTTER 1. Obscuration of the left hemidiaphragm likely related to a pleural effusion. 2. ??Otherwise grossly negative postoperative chest radiograph. COMMENT: Please see above for additional findings. Electronically signed by: Mo Stahl M.D. Narrative 03/23/2024 8:08 AM SWATCH CUTTER Chest Radiograph, 1 view HISTORY: ??pleural effusion, [...] Result * Critical Care (03/23/2024 6:36 AM SWATCH CUTTER) Narrative Mauri Odell MD - 03/23/2024 6:36 AM SWATCH CUTTER Ale Mcknight NP ? 03/23/2024 ??8:54 AM Critical Care Performed by: Ale Mcknight NP Authorized by: Ale Mcknight NP ?? CRITICAL CARE: ??Team: ??[facility] CT ??Shift: ??AM ??Level of Billing: ??Subsequent [...] plan with the patient's team and other medical/wedding consultant staff. This time was in addition to and separate from care provided by other practitioners on this day of service. ? I spent time reviewing and interpreting data from bedside monitors, laboratory results, and imaging and I spent time discussing the management of this critically ill patient with consultants and the medical staff us Ale Mcknight CLINIC NURSE IN CLINIC/BEDSIDE ORDERA BLES Final Result * eGFR (03/23/2024 1:16 AM SWATCH CUTTER) [facility] eGFR 77 >=60 mL/min/1. 73 m2 Comment: [...] last reviewed 2021. Blood 03/23/2024 1:16 AM SWATCH CUTTER 03/23/2024 1:35 AM SWATCH CUTTER us Brenda Mayberry CLINIC NURSE LAB BLOOD ORDERABLES Final Result Performing Organization Address [facility] Co de Phone Number [facility] [address] [facility] [employer] [place], [place] [id number] * (ABNORMAL) Calcium, ionized (03/23/2024 1:16 AM SWATCH CUTTER) Pathologist [facility] Calcium, Ionized 4.40(L) 4.50 - 5.10 mg/dL Blood 03/23/2024 1:16 AM SWATCH CUTTER 03/23/2024 1:23 AM SWATCH CUTTER Gena [facility] NURSE LAB BLOOD ORDERABLES Hamida l Result Performing Organization Address [facility] Co de Phone Number [facility] [address] [employer] [place], [place] [phone] * Protime-INR (03/23/2024 1:16 AM SWATCH CUTTER) Pathologist [facility] PT 11.7 9.7 - 13.0 sec INR 1.08 0.90 - 1.20 [facility] Comment: Interpretive data Oral anticoagulant therapeutic ranges: Venous thromboembolism prophylaxis or treatment: 2.0-3.0 CARDIOLOGY Standard range: 2.0-3.0 High-intensity range: 2.5-3.5 Refer to indication-specific guidelines for appropriate target ranges for prosthetic heart valve replacement. Current interpretive data was last revised on 2019. Blood 03/23/2024 1:16 AM SWATCH CUTTER 03/23/2024 1:35 AM SWATCH CUTTER Gena [facility] NURSE LAB BLOOD ORDERABLES Ahmida l Result Performing Organization Address [facility]/ZIP Co de Phone Number [facility] [address] [facility] [place], [place] [phone] * (ABNORMAL) CBC without differential (03/23/2024 1:16 AM SWATCH CUTTER) WBC 8.3 3.8 - 9.9 K/cumm Hgb 10.2(L) 13.0 - 17.5 g/dL [facility] Hct 31.4(L) 38.9 - 50.3 % [facility] Plt 130(L) 150 - 400 K/cumm [facility] MPV 9.6 9.1 - 12.3 fL [facility] RBC 3.42(L) 4.30 - 5.80 M/cumm [facility] MCV 91.8 81.3 - 96.4 fL [facility] MCH 29.8 27.1 - 33.3 pg [facility] MCHC 32.5 32.3 - 35.7 g/dL [facility] RDW CV 12.9 11.1 - 14.9 % [facility] RDW SD 43.1 35.7 - 48.1 fL [facility] NRBC abs 0.00 0.00 - 0.01 K/cumm [facility] Blood 03/23/2024 1:16 AM SWATCH CUTTER 03/23/2024 1:36 AM SWATCH CUTTER Ale [facility]night [facility] NURSE LAB BLOOD ORDERABLES Fin al Result Performing Organization Address [facility] Co de Phone Number [facility] [id number] [address] [employer] [place], [place] [id number] * Magnesium (03/23/2024 1:16 AM SWATCH CUTTER) [facility] Magnesium 2.2 1.4 - 2.5 mg/dL Comment:Reviewed Blood 03/23/2024 1:16 AM SWATCH CUTTER 03/23/2024 1:35 AM SWATCH CUTTER Ale Mcknight CLINIC NURSE LAB BLOOD ORDERABLES Fin al Result Performing Organization Address [facility] Co de Phone Number [facility] [address] [facility] [place] [address] * (ABNORMAL) Renal function panel (03/23/2024 1:16 AM SWATCH CUTTER) Pathologist [facility] Sodium 134(L) 135 - 145 mmol/L Potassium, pl 4.5 3.3 - 4.9 mmol/L [facility] Chloride 100 97 - 110 mmol/L [facility] CO2 21(L) 22 - 32 mmol/L [facility] Anion gap 13 2 - 15 mmol/L [facility] BUN 13 6 - 25 mg/dL [facility] Creatinine 0.97 0.80 - 1.30 mg/dL [facility] Glucose 79 70 - 199 mg/dL [facility] Comment: Interpretive Data Fasting glucose >/= 126 [...] 2022. Calcium 8.2(L) 8.5 - 10.3 mg/dL [facility] Phosphorus, pl 3.3 2.3 - 4.5 mg/dL [facility] Albumin 2.9(L) 3.5 - 5.0 g/dL [facility] Blood 03/23/2024 1:16 AM SWATCH CUTTER 03/23/2024 1:35 AM SWATCH CUTTER Ale Mcknight NP LAB BLOOD ORDERABLES Fin al Result Performing Organization Address City/State/[facility] Co ks Phone Number [facility] [address] [place] [address] * Critical Care (03/22/2024 8:16 PM SWATCH CUTTER) Narrative Mauri Odell MD - 03/22/2024 8:16 PM SWATCH CUTTER Gena Jane NP ? 03/23/2024 ??4:04 AM Critical Care Performed by: Gena Jane NP Authorized by: Gena Jane NP ?? CRITICAL CARE: ??Team: ??[facility] CT ??Shift: ??PM ??Level of Billing: ??Subsequent [...] plan with the patient's team and other medical/wedding consultant staff. This time was in addition [...] laboratory results, and imaging us Gena Jane CLINIC NURSE IN CLINIC/BEDSIDE ORDERAB LES Final Result * POCT glucose (03/22/2024 6:38 PM SWATCH CUTTER) [facility] Glucose, POC 96 70 - 199 mg/dL Comment: For Glucose values <35 mg/dl when Hematocrit is >60 mg/dl,the test may not accurately detect significant hypoglycemia,and testing in the Laboratory should be considered if clinically indicated. Blood 03/22/2024 6:38 PM SWATCH CUTTER 03/22/2024 6:38 PM SWATCH CUTTER us Basil Adhikari MD LAB POCT ORDERABLES - DE VICE Final Result [facility] [address] [place] [address] * eGFR (03/22/2024 6:30 PM SWATCH CUTTER) [facility] eGFR 76 >=60 mL/min/1. 73 m2 Comment: [...] last reviewed 2021. Blood 03/22/2024 6:30 PM SWATCH CUTTER 03/22/2024 6:42 PM SWATCH CUTTER Sara Shanna Edwards LAB BLOOD ORDERABLES Final Result Performing Organization Address City/[facility]/ZIP Co de Phone Number [facility] [address] Department of [employer] [place], [place] [id number] * (ABNORMAL) Calcium, ionized (03/22/2024 6:30 PM SWATCH CUTTER) Pathologist [facility] Calcium, Ionized 4.40(L) 4.50 - 5.10 mg/dL Blood 03/22/2024 6:30 PM SWATCH CUTTER 03/22/2024 6:42 PM SWATCH CUTTER Sara Shanna Edwards CLINIC NURSE LAB BLOOD ORDERABLES Final Result Performing Organization Address City/[facility]/ZIP Co de Phone Number [facility] [address] [place] [address] * aPTT (03/22/2024 6:30 PM SWATCH CUTTER) aPTT 30 28 - 38 sec Comment: Interpretive Data Heparin therapeutic range: 66.0 - 100.0 seconds. Range based on correlation with therapeutic heparin activity range of 0.3 - 0.7 Units/mL. Current interpretive data was last revised on 2022. Blood 03/22/2024 6:30 PM SWATCH CUTTER 03/22/2024 6:42 PM SWATCH CUTTER Sara Bardalesey CLINIC NURSE LAB BLOOD ORDERABLES Final Result Performing Organization Address [facility] de Phone Number [facility] [address] [facility] [place] [address] * Protime-INR (03/22/2024 6:30 PM SWATCH CUTTER) Pathologist [facility] PT 12.8 9.7 - 13.0 sec INR 1.18 0.90 - 1.20 [facility] Comment: Interpretive data Oral anticoagulant therapeutic ranges: Venous thromboembolism prophylaxis or treatment: 2.0-3.0 CARDIOLOGY Standard range: 2.0-3.0 High-intensity range: 2.5-3.5 Refer to indication-specific guidelines for appropriate target ranges for prosthetic heart valve replacement. Current interpretive data was last revised on 2019. Blood 03/22/2024 6:30 PM SWATCH CUTTER 03/22/2024 6:42 PM SWATCH CUTTER Sara Edwards CLINIC NURSE LAB BLOOD ORDERABLES Final Result Performing Organization Address [facility] de Phone Number [facility] [address] [facility] [place] [address] * (ABNORMAL) CBC without differential (03/22/2024 6:30 PM SWATCH CUTTER) Pathologist [facility] WBC 9.6 3.8 - 9.9 K/cumm Hgb 9.9(L) 13.0 - 17.5 g/dL [facility] Hct 29.4(L) 38.9 - 50.3 % [facility] Plt 107(L) 150 - 400 K/cumm [facility] MPV 9.5 9.1 - 12.3 fL [facility] RBC 3.23(L) 4.30 - 5.80 M/cumm [facility] MCV 91.0 81.3 - 96.4 fL [facility] MCH 30.7 27.1 - 33.3 pg [facility] MCHC 33.7 32.3 - 35.7 g/dL [facility] RDW CV 12.7 11.1 - 14.9 % [facility] RDW SD 42.5 35.7 - 48.1 fL [facility] NRBC abs 0.00 0.00 - 0.01 K/cumm [facility] Blood 03/22/2024 6:30 PM SWATCH CUTTER 03/22/2024 6:42 PM SWATCH CUTTER Sara Edwards CLINIC NURSE LAB BLOOD ORDERABLES Final Result Performing Organization Address City/[facility]/ZIP Co de Phone Number [facility] [address] [place] [address] * Magnesium (03/22/2024 6:30 PM SWATCH CUTTER) [facility] Magnesium 1.7 1.4 - 2.5 mg/dL Blood 03/22/2024 6:30 PM SWATCH CUTTER 03/22/2024 6:42 PM SWATCH CUTTER Sara Shanna Edwards CLINIC NURSE LAB BLOOD ORDERABLES Final Result Performing Organization Address [facility] de Phone Number [facility] [address] [facility] [place] [address] * (ABNORMAL) Renal function panel (03/22/2024 6:30 PM SWATCH CUTTER) Pathologist [facility] Sodium 133(L) 135 - 145 mmol/L Potassium, pl 4.1 3.3 - 4.9 mmol/L [facility] Chloride 101 97 - 110 mmol/L [facility] CO2 20(L) 22 - 32 mmol/L [facility] Anion gap 12 2 - 15 mmol/L [facility] BUN 15 6 - 25 mg/dL [facility] Creatinine 0.98 0.80 - 1.30 mg/dL [facility] Glucose 89 70 - 199 mg/dL [facility] Comment: Interpretive Data Fasting glucose >/= 126 [...] 2022. Calcium 7.5(L) 8.5 - 10.3 mg/dL [facility] Phosphorus, pl 3.0 2.3 - 4.5 mg/dL [facility] Albumin 2.8(L) 3.5 - 5.0 g/dL [facility] Blood 03/22/2024 6:30 PM SWATCH CUTTER 03/22/2024 6:42 PM SWATCH CUTTER Sara Edwards NP LAB BLOOD ORDERABLES Final Result [facility] [address] [place] [address] * Critical Care (03/22/2024 5:43 PM SWATCH CUTTER) Narrative Mauri Odell MD - 03/22/2024 5:43 PM SWATCH CUTTER Sara Edwards NP ? 03/22/2024 ??5:52 PM Critical Care Performed by: Sara Edwards NP Authorized by: Sara Edwards NP ?? CRITICAL CARE: ??Team: ??[facility] CT ??Shift: ??AM ??Level of Billing: ??Critical [...] plan with the ICU team and other medical/wedding consultant staff, making frequent assessments and decisions [...] spent time documenting in the medical record Sara Edwards NP IN CLINIC/BEDSIDE ORDERABL ES Final Result * REVAS ENDOVASILIAC W STNT [id number] (03/22/2024 4:52 PM SWATCH CUTTER) Anatomical Region Laterality Modality X-Ray Angiograph y Narrative 03/22/2024 4:54 PM SWATCH CUTTER Please see OpNote for result. Basil Adhikari MD CV CARDIAC CATH PROCEDUR ES Final Result * (ABNORMAL) POC Activated Clotting Time, High Range (03/22/2024 4:51 PM SWATCH CUTTER) ACT 139(H) 87 - 138 sec Blood 03/22/2024 4:51 PM SWATCH CUTTER 03/22/2024 4:51 PM SWATCH CUTTER Basil Adhikari MD LAB BLOOD ORDERABLES Fin al Result [facility] [address] [place] [address] * (ABNORMAL) POC Blood Gas and Chemistries, Venous - (03/22/2024 4:29 PM SWATCH CUTTER) pH, Boyd POC 7.31(L) 7.32 - 7.45 pCO2, boyd POC 48 40 - 50 mmHg [facility] pO2, boyd POC 64(H) 35 - 42 mmHg [facility] Na, POC 129(L) 135 - 145 mmol/L [facility] K POC 4.1 3.3 - 4.9 mmol/L [facility] Comment: Interpretive Data This method is not able to assess for hemolysis, which may falsely increase potassium concentrations. If further testing is needed to evaluate this result, consider in-laboratory plasma potassium. Current Interpretive Data was last revised on 2021. Cl, POC 101 97 - 110 mmol/L [facility] Ionized Ca, POC 4.62 4.50 - 5.10 mg/dL [facility] Glucose, POC 95 70 - 199 mg/dL [facility] Lactate, POC 0.7 0.0 - 2.0 mmol/L [facility] O2Hb, Boyd POC 90.2 90.0 - 95.0 % [facility] Carboxhgb fract 1.9 0.0 - 2.9 % [facility] Methemoglobin 1.3 0.0 - 1.9 % [facility] HHb, POC 6.6(H) 0.0 - 5.0 % [facility] O2 Sat, Boyd POC (Shayne) 93(H) 68 - 77 % [facility] Total CO2, boyd POC 26 22 - 32 mmol/L [facility] Base excess, boyd POC -2.2 mmol/L [facility] HCO3, Boyd POC 23 20 - 30 mmol/L [facility] Hct, POC 30.0(L) 38.9 - 50.3 % [facility] Total Hb, POC 9.9(L) 13.0 - 17.5 g/dL [facility] Blood 03/22/2024 4:29 PM SWATCH CUTTER 03/22/2024 4:29 PM SWATCH CUTTER Basil Adhikari MD LAB POCT ORDERABLES - DE VICE Final Result [facility] [address] Department of Laboratories [place], [place] [id number] * (ABNORMAL) POC Activated Clotting Time, High Range (03/22/2024 4:10 PM SWATCH CUTTER) ACT 386(H) 87 - 138 sec Blood 03/22/2024 4:10 PM SWATCH CUTTER 03/22/2024 4:10 PM SWATCH CUTTER us Basil Adhikari MD LAB BLOOD ORDERABLES Fin al Result Performing Organization Address [facility] Co de Phone Number [facility] [address] [facility] [place] [address] * (ABNORMAL) POC Activated Clotting Time, High Range (03/22/2024 4:00 PM SWATCH CUTTER) ACT 174(H) 87 - 138 sec Blood 03/22/2024 4:00 PM SWATCH CUTTER 03/22/2024 4:00 PM SWATCH CUTTER Result [facility] Basil Adhikari MD LAB BLOOD ORDERABLES Fin al Result Performing Organization Address [facility] Co de Phone Number [facility] [address] [facility] [place] [address] * (ABNORMAL) POC Activated Clotting Time, High Range (03/22/2024 3:56 PM SWATCH CUTTER) ACT 145(H) 87 - 138 sec Blood 03/22/2024 3:56 PM SWATCH CUTTER 03/22/2024 3:56 PM SWATCH CUTTER Result [facility] Basil Adhikari MD LAB BLOOD ORDERABLES Fin al Result Performing Organization Address [facility] Co de Phone Number [facility] [address] [facility] [place] [address] * (ABNORMAL) POC Activated Clotting Time, High Range (03/22/2024 3:28 PM SWATCH CUTTER) ACT 457(H) 87 - 138 sec Blood 03/22/2024 3:28 PM SWATCH CUTTER 03/22/2024 3:28 PM SWATCH CUTTER Result [facility] Basil Adhikari MD LAB BLOOD ORDERABLES Fin al Result Performing Organization Address City/[facility] Co de Phone Number [facility] [address] [facility] [place] [address] * (ABNORMAL) POCT Activated clotting time, low range (03/22/2024 3:21 PM SWATCH CUTTER) Pathologist [facility] ACT >400(H) 123 - 168 sec Blood 03/22/2024 3:21 PM SWATCH CUTTER 03/22/2024 3:21 PM SWATCH CUTTER us Basil Adhikari MD LAB POCT ORDERABLES - DE VICE Final Result [facility] [address] [place] [address] * IN AN ELECTIVE ENDOTRACHEAL AIRWAY, IN AN PROCEDURE PLACEHOLDER (03/22/2024 3:08 PM SWATCH CUTTER) Narrative Gamal Asher MD PhD - 03/22/2024 3:08 PM SWATCH CUTTER Gamal Asher MD PhD ? 03/22/2024 ??3:09 [...] with: silk tape Number of attempts: 1 Gamal Asher MD PhD ANESTHESIA ORDERABLES Fi nal Result * Prepare RBC: 2 Units (03/22/2024 2:42 PM SWATCH CUTTER) Pathologist [facility] Product code [id number] Unit Number [id number] 8-* [facility] Product Blood Type OPOS [facility] Dispense Status RETURNED [facility] Product code [id number] [facility] Unit Number [id number] 6-K [facility] Product Blood Type OPOS [facility] Dispense Status RETURNED [facility] Blood 03/22/2024 2:42 PM SWATCH CUTTER Narrative [facility] - 03/26/2024 7:31 AM SWATCH CUTTER Are special requirements needed? (All products are leukoreduced and CMV- safe)- >No Date required:-[id number] LRRBC # of [id number] Reasons:-Intra-op transfusion} Gamal Asher MD PhD BLOOD BANK PRODUCT ORDER AMARA Final Result [facility] [address] [place] [address] * XR Chest 1 View - Portable - in AM (03/22/2024 7:26 AM SWATCH CUTTER) Anatomical Region Laterality Modality Body, Chest N/A Computed Radiogr aphy 03/22/2024 8:08 AM SWATCH CUTTER Impressions 03/22/2024 8:08 AM SWATCH CUTTER Comparison is made to 03/21/2024. ??Right jugular [...] [place] Hager M.D. Narrative 03/22/2024 8:08 AM SWATCH CUTTER Examination: Chest 1 view Procedure Note Ruy [...] Final Result * eGFR (03/22/2024 1:34 AM SWATCH CUTTER) eGFR 73 >=60 mL/min/1. 73 m2 Comment: [...] last reviewed 2021. Blood 03/22/2024 1:34 AM SWATCH CUTTER 03/22/2024 2:00 AM SWATCH CUTTER us Brenda Mayberry NP LAB BLOOD ORDERABLES Final Result [facility] [address] [place] [address] * (ABNORMAL) CBC without differential (03/22/2024 1:34 AM SWATCH CUTTER) Pathologist [facility] WBC 9.0 3.8 - 9.9 K/cumm Hgb 10.2(L) 13.0 - 17.5 g/dL [facility] Hct 30.6(L) 38.9 - 50.3 % [facility] Plt 111(L) 150 - 400 K/cumm [facility] MPV 10.1 9.1 - 12.3 fL [facility] RBC 3.41(L) 4.30 - 5.80 M/cumm [facility] MCV 89.7 81.3 - 96.4 fL [facility] MCH 29.9 27.1 - 33.3 pg [facility] MCHC 33.3 32.3 - 35.7 g/dL [facility] RDW CV 12.8 11.1 - 14.9 % [facility] RDW SD 42.0 35.7 - 48.1 fL [facility] NRBC abs 0.00 0.00 - 0.01 K/cumm [facility] Blood 03/22/2024 1:34 AM SWATCH CUTTER 03/22/2024 2:00 AM SWATCH CUTTER Ale Mcknight CLINIC NURSE LAB BLOOD ORDERABLES Fin al Result Performing Organization Address [facility]/ZIP Co de Phone Number [facility] [address] [place] [address] * Type and screen (03/22/2024 1:34 AM SWATCH CUTTER) Pathologist [facility] Alex, indirect Negative ABO Rh O Positive [facility] Blood 03/22/2024 1:34 AM SWATCH CUTTER 03/22/2024 1:56 AM SWATCH CUTTER Narrative [facility] - 03/22/2024 2:43 AM SWATCH CUTTER Has the patient had Daratumumab or Isatuximab in the past 6 months?->Unknown Ale Mcknight NP LAB BLOOD BANK TEST ORDE RABCHARLES Final Result [facility] [address] [place] [address] * Magnesium (03/22/2024 1:34 AM SWATCH CUTTER) [facility] Magnesium 1.9 1.4 - 2.5 mg/dL Blood 03/22/2024 1:34 AM SWATCH CUTTER 03/22/2024 2:00 AM SWATCH CUTTER Ale Mcknight NP LAB BLOOD ORDERABLES Fin al Result Performing Organization Address City/[facility] Co de Phone Number [facility] [address] [place] [address] * (ABNORMAL) Renal function panel (03/22/2024 1:34 AM SWATCH CUTTER) [facility] Sodium 130(L) 135 - 145 mmol/L Potassium, pl 4.1 3.3 - 4.9 mmol/L [facility] Chloride 96(L) 97 - 110 mmol/L [facility] CO2 21(L) 22 - 32 mmol/L [facility] Anion gap 13 2 - 15 mmol/L [facility] BUN 17 6 - 25 mg/dL [facility] Creatinine 1.01 0.80 - 1.30 mg/dL [facility] Glucose 94 70 - 199 mg/dL [facility] Comment: Interpretive Data Fasting glucose >/= 126 [...] 2022. Calcium 8.3(L) 8.5 - 10.3 mg/dL [facility] Phosphorus, pl 2.8 2.3 - 4.5 mg/dL [facility] Albumin 3.2(L) 3.5 - 5.0 g/dL [facility] Blood 03/22/2024 1:34 AM SWATCH CUTTER 03/22/2024 2:00 AM SWATCH CUTTER Ale Mcknight CLINIC NURSE LAB BLOOD ORDERABLES Fin al Result Performing Organization Address [facility] Co de Phone Number [facility] [address] Department [place], [place] [id number] * (ABNORMAL) aPTT (03/21/2024 8:12 PM SWATCH CUTTER) [facility] aPTT 43(H) 28 - 38 sec Comment: Interpretive Data Heparin therapeutic range: 66.0 - 100.0 seconds. Range based on correlation with therapeutic heparin activity range of 0.3 - 0.7 Units/mL. Current interpretive data was last revised on 2022. Blood 03/21/2024 8:12 PM SWATCH CUTTER 03/21/2024 8:17 PM SWATCH CUTTER Narrative [facility] - 03/21/2024 8:26 PM SWATCH CUTTER STAT PTT timing: - Draw 6 hours [...] drawn peripherally (not from CVC). us Benny Aranda PA LAB BLOOD ORDERABLES Final R esult Performing Organization Address [facility]/ZIP Co de Phone Number [facility] [address] Department of [place], [place] [address] * (ABNORMAL) aPTT (03/21/2024 12:40 PM SWATCH CUTTER) aPTT 47(H) 28 - 38 sec Comment: Interpretive Data Heparin therapeutic range: 66.0 - 100.0 seconds. Range based on correlation with therapeutic heparin activity range of 0.3 - 0.7 Units/mL. Current interpretive data was last revised on 2022. Blood 03/21/2024 12:4 0 PM SWATCH CUTTER 03/21/2024 12:44 PM SWATCH CUTTER Narrative [facility] - 03/21/2024 1:11 PM SWATCH CUTTER STAT PTT timing: - Draw 6 hours [...] ORDERABLES Final R esult Performing Organization Address [facility] Co de Phone Number [facility] [address] [place] [address] * aPTT (03/21/2024 10:35 AM SWATCH CUTTER) Pathologist [facility] aPTT 37 28 - 38 sec Comment: Interpretive Data Heparin therapeutic range: 66.0 - 100.0 seconds. Range based on correlation with therapeutic heparin activity range of 0.3 - 0.7 Units/mL. Current interpretive data was last revised on 2022. Blood 03/21/2024 10:3 5 AM SWATCH CUTTER 03/21/2024 10:41 AM SWATCH CUTTER Basil Adhikari MD LAB BLOOD ORDERABLES Fin al Result Performing Organization Address [facility]/ZIP Co de Phone Number [facility] [address] [place] [address] * XR Chest 1 View - Portable - in AM (03/21/2024 7:43 AM SWATCH CUTTER) Anatomical Region Laterality Modality Body, Chest N/A Computed Radiogr aphy 03/21/2024 7:47 AM SWATCH CUTTER Impressions 03/21/2024 7:47 AM SWATCH CUTTER Right internal jugular central venous catheter terminates in the superior cavoatrial junction. Median sternotomy. Aortic valve replacement. Calcified atherosclerotic aorta. Mild cardiomegaly is unchanged. There is bibasilar subsegmental atelectasis, unchanged from the prior examination. Questionable small left pleural effusion is also unchanged. No pneumothorax. Electronically signed by: Manuel Mike M.D. Narrative 03/21/2024 7:47 AM SWATCH CUTTER PORTABLE CHEST RADIOGRAPH INDICATION: pleural effusion COMPARISON: [...] signed by: Manuel Mike M.D. Ale Mcknight NP IMG XR PROCEDURES Final Result * (ABNORMAL) aPTT (03/21/2024 2:27 AM SWATCH CUTTER) aPTT 60(H) 28 - 38 sec Comment: Interpretive Data Heparin therapeutic range: 66.0 - 100.0 seconds. Range based on correlation with therapeutic heparin activity range of 0.3 - 0.7 Units/mL. Current interpretive data was last revised on 2022. Blood 03/21/2024 2:27 AM SWATCH CUTTER 03/21/2024 2:52 AM SWATCH CUTTER Narrative [facility] - 03/21/2024 3:10 AM SWATCH CUTTER STAT PTT timing: - Draw 6 hours [...] SOLIS LAB BLOOD ORDERABLES Final R esult [facility] [address] [place] [address] * eGFR (03/21/2024 2:24 AM SWATCH CUTTER) eGFR 77 >=60 mL/min/1. 73 m2 Comment: [...] last reviewed 2021. Blood 03/21/2024 2:24 AM SWATCH CUTTER 03/21/2024 2:52 AM SWATCH CUTTER Brenda Mayberry CLINIC NURSE LAB BLOOD ORDERABLES Final Result Performing Organization Address [facility]/ZIP Co de Phone Number [facility] [address] [place] [address] * (ABNORMAL) CBC without differential (03/21/2024 2:24 AM SWATCH CUTTER) WBC 10.9(H) 3.8 - 9.9 K/cumm Hgb 11.1(L) 13.0 - 17.5 g/dL [facility] Hct 32.9(L) 38.9 - 50.3 % [facility] Plt 97(L) 150 - 400 K/cumm [facility] MPV 10.2 9.1 - 12.3 fL [facility] RBC 3.68(L) 4.30 - 5.80 M/cumm [facility] MCV 89.4 81.3 - 96.4 fL [facility] MCH 30.2 27.1 - 33.3 pg [facility] MCHC 33.7 32.3 - 35.7 g/dL [facility] RDW CV 12.7 11.1 - 14.9 % [facility] RDW SD 41.5 35.7 - 48.1 fL [facility] NRBC abs 0.00 0.00 - 0.01 K/cumm [facility] Blood 03/21/2024 2:24 AM SWATCH CUTTER 03/21/2024 2:52 AM SW[facility] C[facility]TER [facility] N[facility]SE [facility] BLOOD ORDERABLES Fin al Result Performing Organization Address City/[facility]/ZIP Co de Phone Number [facility] [address] [place] [address] * Magnesium (03/21/2024 2:24 AM SWATCH CUTTER) Pathologist [facility] Magnesium 1.8 1.4 - 2.5 mg/dL Blood 03/21/2024 2:24 AM SWATCH CUTTER 03/21/2024 2:52 AM SW[facility] C[facility]TER [facility] NURSE [facility] BLOOD ORDERABLES Fin al Result [facility] [facility] [address] [place] [address] * (ABNORMAL) Renal function panel (03/21/2024 2:24 AM SWATCH CUTTER) Pathologist [facility] Sodium 128(L) 135 - 145 mmol/L Potassium, pl 4.0 3.3 - 4.9 mmol/L [facility] Chloride 96(L) 97 - 110 mmol/L [facility] CO2 21(L) 22 - 32 mmol/L [facility] Anion gap 11 2 - 15 mmol/L [facility] BUN 18 6 - 25 mg/dL [facility] Creatinine 0.97 0.80 - 1.30 mg/dL [facility] Glucose 108 70 - 199 mg/dL [facility] Comment: Interpretive Data Fasting glucose >/= 126 [...] 2022. Calcium 8.4(L) 8.5 - 10.3 mg/dL [facility] Phosphorus, pl 1.8(L) 2.3 - 4.5 mg/dL [facility] Albumin 3.4(L) 3.5 - 5.0 g/dL [facility] Blood 03/21/2024 2:24 AM SWATCH CUTTER 03/21/2024 2:52 AM SWATCH CUTTER Ale Mcknight NP LAB BLOOD ORDERABLES Fin al Result Performing Organization Address [facility] Co de Phone Number [facility] [address] [place] [address] * (ABNORMAL) aPTT (03/20/2024 4:57 PM SWATCH CUTTER) aPTT 48(H) 28 - 38 sec Comment: Interpretive Data Heparin therapeutic range: 66.0 - 100.0 seconds. Range based on correlation with therapeutic heparin activity range of 0.3 - 0.7 Units/mL. Current interpretive data was last revised on 2022. Blood 03/20/2024 4:57 PM SWATCH CUTTER 03/20/2024 5:16 PM SWATCH CUTTER Narrative [facility] - 03/20/2024 5:33 PM SWATCH CUTTER STAT PTT timing: - Draw 6 hours [...] drawn peripherally (not from CVC). us Benny Aranda PA LAB BLOOD ORDERABLES Final R esult Performing Organization Address City/[facility]/ZIP Co de Phone Number [facility] [address] [place] [address] * aPTT (03/20/2024 9:27 AM SWATCH CUTTER) aPTT 34 28 - 38 sec Comment: Interpretive Data Heparin therapeutic range: 66.0 - 100.0 seconds. Range based on correlation with therapeutic heparin activity range of 0.3 - 0.7 Units/mL. Current interpretive data was last revised on 2022. Blood 03/20/2024 9:27 AM SWATCH CUTTER 03/20/2024 9:41 AM SWATCH CUTTER Narrative [facility] - 03/20/2024 9:57 AM SWATCH CUTTER Baseline prior to heparin initiation Benny SOLIS LAB BLOOD ORDERABLES Final R esult Performing Organization Address [facility] Co de Phone Number [facility] [address] [employer] [place], [place] [id number] * (ABNORMAL) Protime-INR (03/20/2024 9:27 AM SWATCH CUTTER) PT 14.9(H) 9.7 - 13.0 sec INR 1.37(H) 0.90 - 1.20 [facility] Comment: Interpretive data Oral anticoagulant therapeutic ranges: Venous thromboembolism prophylaxis or treatment: 2.0-3.0 CARDIOLOGY Standard range: 2.0-3.0 High-intensity range: 2.5-3.5 Refer to indication-specific guidelines for appropriate target ranges for prosthetic heart valve replacement. Current interpretive data was last revised on 2019. Blood 03/20/2024 9:27 AM SWATCH CUTTER 03/20/2024 9:41 AM SWATCH CUTTER Narrative [facility] - 03/20/2024 9:57 AM SWATCH CUTTER Baseline prior to heparin initiation Benny SOLIS LAB BLOOD ORDERABLES Final R esult Performing Organization Address [facility] Co de Phone Number [facility] [address] [place] [address] * XR Chest 1 View - Portable - in AM (03/20/2024 9:17 AM SWATCH CUTTER) Anatomical Region Laterality Modality Body, Chest N/A Computed Radiogr aphy 03/20/2024 2:59 PM SWATCH CUTTER Impressions 03/20/2024 2:59 PM SWATCH CUTTER Comparison is made to prior examination 03/19/2024. Unchanged median sternotomy wires and aortic valve replacement. Right internal jugular central venous catheter tip overlies superior caval atrial junction. ??Surgical drain is in place. ??Stable to minimally increased bibasilar opacities favored represent atelectasis with possible small left pleural effusion. ??No pneumothorax. Unchanged cardiomegaly. Electronically signed by: Gian Henriquez M.D. Narrative 03/20/2024 2:59 PM SWATCH CUTTER EXAMINATION: XR CHEST 1 VIEW Procedure Note [...] signed by: Gian Henriquez M.D. Ale Mcknight NP IMG XR PROCEDURES Final Result * eGFR (03/20/2024 1:03 AM SWATCH CUTTER) eGFR 72 >=60 mL/min/1. 73 m2 Comment: [...] last reviewed 2021. Blood 03/20/2024 1:03 AM SWATCH CUTTER 03/20/2024 1:33 AM SWATCH CUTTER Brenda Mayberry NP LAB BLOOD ORDERABLES Final Result Performing Organization Address City/[facility]/ZIP Co de Phone Number [facility] [address] Department [employer] [place], [place] [id number] * Calcium, ionized (03/20/2024 1:03 AM SWATCH CUTTER) Pathologist [facility] Calcium, Ionized 4.80 4.50 - 5.10 mg/dL Blood 03/20/2024 1:03 AM SWATCH CUTTER 03/20/2024 1:11 AM SWATCH CUTTER us Brenda Mayberry NP LAB BLOOD ORDERABLES Final Result [facility] [address] [place] [address] * (ABNORMAL) CBC without differential (03/20/2024 1:03 AM SWATCH CUTTER) WBC 12.7(H) 3.8 - 9.9 K/cumm Hgb 12.2(L) 13.0 - 17.5 g/dL [facility] Hct 35.9(L) 38.9 - 50.3 % [facility] Plt 104(L) 150 - 400 K/cumm [facility] MPV 10.0 9.1 - 12.3 fL [facility] RBC 4.04(L) 4.30 - 5.80 M/cumm [facility] MCV 88.9 81.3 - 96.4 fL [facility] MCH 30.2 27.1 - 33.3 pg [facility] MCHC 34.0 32.3 - 35.7 g/dL [facility] RDW CV 12.8 11.1 - 14.9 % [facility] RDW SD 41.5 35.7 - 48.1 fL [facility] NRBC abs 0.00 0.00 - 0.01 K/cumm [facility] Blood 03/20/2024 1:03 AM SWATCH CUTTER 03/20/2024 1:33 AM SWATCH CUTTER Ale Mcknight CLINIC NURSE LAB BLOOD ORDERABLES Fin al Result Performing Organization Address City/[facility]/ZIP Co de Phone Number [facility] [address] Department [employer] [place], [place] [id number] * Magnesium (03/20/2024 1:03 AM SWATCH CUTTER) [facility] Magnesium 2.0 1.4 - 2.5 mg/dL Blood 03/20/2024 1:03 AM SWATCH CUTTER 03/20/2024 1:33 AM SWATCH CUTTER Ale Mcknight CLINIC NURSE LAB BLOOD ORDERABLES Fin al Result Performing Organization Address [facility]/ZIP Co de Phone Number [facility] [address] [place] [address] * (ABNORMAL) Renal function panel (03/20/2024 1:03 AM SWATCH CUTTER) Pathologist [facility] Sodium 132(L) 135 - 145 mmol/L Potassium, pl 4.5 3.3 - 4.9 mmol/L [facility] Chloride 99 97 - 110 mmol/L [facility] CO2 21(L) 22 - 32 mmol/L [facility] Anion gap 12 2 - 15 mmol/L [facility] BUN 17 6 - 25 mg/dL [facility] Creatinine 1.03 0.80 - 1.30 mg/dL [facility] Glucose 119 70 - 199 mg/dL [facility] Comment: Interpretive Data Fasting glucose >/= 126 [...] 2022. Calcium 8.8 8.5 - 10.3 mg/dL [facility] Phosphorus, pl 2.7 2.3 - 4.5 mg/dL [facility] Albumin 3.6 3.5 - 5.0 g/dL [facility] Blood 03/20/2024 1:03 AM SWATCH CUTTER 03/20/2024 1:33 AM SWATCH CUTTER Ale Mcknight NP LAB BLOOD ORDERABLES Fin al Result [facility] [address] [place] [address] * Prepare RBC: 2 Units (03/19/2024 4:56 PM SWATCH CUTTER) Product code [id number] [facility] Unit Number [id number] 2-F [facility] Product Blood Type OPOS [facility] Dispense Status RETURNED [facility] Product code [id number] Unit Number [id number] 3-Q [facility] Product Blood Type OPOS [facility] Dispense Status RETURNED [facility] Blood 03/19/2024 4:56 PM SWATCH CUTTER Narrative [facility] - 03/19/2024 5:48 PM SWATCH CUTTER Specify Procedure:->iliac stent Are special requirements needed? (All products are leukoreduced and CMV- safe)- >No Date required:-[id number] LRRBC # of [id number] Reasons:-Hold for procedure (specify procedure)} us Basil Adhikari MD BLOOD BANK PRODUCT ORDER AMARA Final Result [facility] [address] [place] [address] * CTA Abdomen Pelvis (03/19/2024 9:06 AM SWATCH CUTTER) Anatomical Region Laterality Modality Body N/A Computed Tomogra phy 03/19/2024 12:2 8 PM SWATCH CUTTER Impressions 03/19/2024 12:49 PM SWATCH CUTTER 1. ??Left common iliac artery aneurysm measuring [...] Josr Lindsey M.D. Narrative 03/19/2024 12:49 PM SWATCH CUTTER EXAMINATION: CT ANGIOGRAPHY OF THE ABDOMEN AND [...] it. Electronically signed by: Josr Lindsey M.D. Brenda Mayberry NP IMG CT PROCEDURES Final Re sult * Potassium (03/19/2024 6:48 AM SWATCH CUTTER) Potassium, pl 4.7 3.3 - 4.9 mmol/L Blood 03/19/2024 6:48 AM SWATCH CUTTER 03/19/2024 7:04 AM SWATCH CUTTER Brenda Mayberry NP LAB BLOOD ORDERABLES Final Result [facility] [address] [place] [address] * Critical Care (03/19/2024 6:40 AM SWATCH CUTTER) Narrative Gian Robertson MD - 03/19/2024 6:40 AM SWATCH CUTTER Brenda Mayberry NP ? 03/19/2024 10:29 AM Critical Care Performed by: Brenda Mayberry NP Authorized by: Brenda Mayberry NP ?? CRITICAL CARE: ??Team: ??[facility] CT ??Shift: ??AM ??Level of Billing: ??Subsequent [...] plan with the patient's team and other medical/wedding consultant staff. This time was in addition to and separate from care provided by other practitioners on this day of service. ?? us Brenda Mayberry NP IN CLINIC/BEDSIDE ORDERABL ES Final Result * XR Chest 1 View - Portable - in AM (03/19/2024 6:37 AM SWATCH CUTTER) Anatomical Region Laterality Modality Body, Chest N/A Computed Radiogr aphy 03/19/2024 7:56 AM SWATCH CUTTER Impressions 03/19/2024 7:56 AM SWATCH CUTTER Comparison is made to prior chest radiograph [...] Josselin Xavier M.D. Narrative 03/19/2024 7:56 AM SWATCH CUTTER EXAMINATION: XR CHEST 1 VIEW Procedure Note [...] size. Electronically signed by: Josselin Xavier M.D. Ale Mcknight CLINIC NURSE IMG XR PROCEDURES Final Result * POCT glucose (03/19/2024 6:01 AM SWATCH CUTTER) [facility] Signature Glucose, POC 110 70 - 199 mg/dL Comment: For Glucose values <35 mg/dl when Hematocrit is >60 mg/dl,the test may not accurately detect significant hypoglycemia,and testing in the Laboratory should be considered if clinically indicated. Blood 03/19/2024 6:01 AM SWATCH CUTTER 03/19/2024 6:01 AM SWATCH CUTTER us Basil Adhikari MD LAB POCT ORDERABLES - DE VICE Final Result [facility] [address] [place] [address] * POCT glucose (03/19/2024 2:13 AM SWATCH CUTTER) Glucose, POC 111 70 - 199 mg/dL Comment: For Glucose values <35 mg/dl when Hematocrit is >60 mg/dl,the test may not accurately detect significant hypoglycemia,and testing in the Laboratory should be considered if clinically indicated. Blood 03/19/2024 2:13 AM SWATCH CUTTER 03/19/2024 2:13 AM SWATCH CUTTER Basil Adhikari MD LAB POCT ORDERABLES - DE VICE Final Result Performing Organization Address [facility]/ZIP Co de Phone Number [facility] [address] [facility] [place] [address] * POCT glucose (03/19/2024 12:18 AM SWATCH CUTTER) Pathologist [facility] Glucose, POC 145 70 - 199 mg/dL Comment: For Glucose values <35 mg/dl when Hematocrit is >60 mg/dl,the test may not accurately detect significant hypoglycemia,and testing in the Laboratory should be considered if clinically indicated. Blood 03/19/2024 12:1 8 AM SWATCH CUTTER 03/19/2024 12:18 AM SWATCH CUTTER us Basil Adhikari MD LAB POCT ORDERABLES - DE VICE Final Result Performing Organization Address [facility] Co de Phone Number [facility] [address] [place] [address] * eGFR (03/19/2024 12:04 AM SWATCH CUTTER) eGFR 85 >=60 mL/min/1. 73 m2 Comment: [...] reviewed 2021. Blood 03/19/2024 12:0 4 AM SWATCH CUTTER 03/19/2024 12:58 AM SWATCH CUTTER us Brenda Mayberry NP LAB BLOOD ORDERABLES Final Result [facility] [address] [place] [address] * (ABNORMAL) Calcium, ionized (03/19/2024 12:04 AM SWATCH CUTTER) Calcium, Ionized 4.47(L) 4.50 - 5.10 mg/dL Blood 03/19/2024 12:0 4 AM SWATCH CUTTER 03/19/2024 12:26 AM SWATCH CUTTER Brenda Mayberry NP LAB BLOOD ORDERABLES Final Result [facility] [address] [place] [address] * (ABNORMAL) CBC without differential (03/19/2024 12:04 AM SWATCH CUTTER) WBC 8.7 3.8 - 9.9 K/cumm Hgb 12.5(L) 13.0 - 17.5 g/dL [facility] Hct 36.8(L) 38.9 - 50.3 % [facility] Plt 103(L) 150 - 400 K/cumm [facility] MPV 10.4 9.1 - 12.3 fL [facility] RBC 4.14(L) 4.30 - 5.80 M/cumm [facility] MCV 88.9 81.3 - 96.4 fL [facility] MCH 30.2 27.1 - 33.3 pg [facility] MCHC 34.0 32.3 - 35.7 g/dL [facility] RDW CV 12.6 11.1 - 14.9 % [facility] RDW SD 41.0 35.7 - 48.1 fL [facility] NRBC abs 0.00 0.00 - 0.01 K/cumm [facility] Blood 03/19/2024 12:0 4 AM SWATCH CUTTER 03/19/2024 12:58 AM SWATCH CUTTER Ale Mcknight CLINIC NURSE LAB BLOOD ORDERABLES Fin al Result Performing Organization Address [facility]/ZIP Co de Phone Number [facility] [address] [facility] [place] [address] * Magnesium (03/19/2024 12:04 AM SWATCH CUTTER) Pathologist [facility] Magnesium 2.0 1.4 - 2.5 mg/dL Blood 03/19/2024 12:0 4 AM SWATCH CUTTER 03/19/2024 12:58 AM SWATCH CUTTER Ale Mcknight CLINIC NURSE LAB BLOOD ORDERABLES Fin al Result Performing Organization Address [facility]/ZIP Co de Phone Number [facility] [address] [facility] [place] [address] * (ABNORMAL) Renal function panel (03/19/2024 12:04 AM SWATCH CUTTER) Sodium 131(L) 135 - 145 mmol/L Potassium, pl 5.1(H) 3.3 - 4.9 mmol/L [facility] Comment:Hemolyzed; potassium value may be falsely elevated by as much as 0.6 - 1.0 mmol/L. Suggest redraw and reanalysis Chloride 102 97 - 110 mmol/L [facility] CO2 18(L) 22 - 32 mmol/L [facility] Anion gap 11 2 - 15 mmol/L [facility] BUN 12 6 - 25 mg/dL [facility] Creatinine 0.88 0.80 - 1.30 mg/dL [facility] Glucose 146 70 - 199 mg/dL [facility] Comment: Interpretive Data Fasting glucose >/= 126 [...] 2022. Calcium 8.5 8.5 - 10.3 mg/dL [facility] Phosphorus, pl 3.7 2.3 - 4.5 mg/dL [facility] Albumin 3.7 3.5 - 5.0 g/dL [facility] Blood 03/19/2024 12:0 4 AM SWATCH CUTTER 03/19/2024 12:58 AM SWATCH CUTTER Ale Mcknight NP LAB BLOOD ORDERABLES Fin al Result [facility] [address] [place] [address] * POCT glucose (03/18/2024 9:02 PM SWATCH CUTTER) [facility] Glucose, POC 102 70 - 199 mg/dL Comment: For Glucose values <35 mg/dl when Hematocrit is >60 mg/dl,the test may not accurately detect significant hypoglycemia,and testing in the Laboratory should be considered if clinically indicated. Blood 03/18/2024 9:02 PM SWATCH CUTTER 03/18/2024 9:02 PM SWATCH CUTTER Basil Adhikari MD LAB POCT ORDERABLES - DE VICE Final Result Performing Organization Address [facility] de Phone Number [facility] [address] [place] [address] * (ABNORMAL) Blood gas, arterial (03/18/2024 7:23 PM SWATCH CUTTER) pH, Art 7.45 7.35 - 7.45 PCO2, Arterial 28(L) 35 - 45 mmHg [facility] PO2, Arterial 195(H) 83 - 108 mmHg [facility] HCO3 Art (Calculated) 20 20 - 30 mmol/L [facility] BE, art -3 mmol/L [facility] Comment: Interpretive Data No Reference Range Established Current Interpretive Data was last revised on 2017 O2 Sat Art (Calculated) 100(H) 94 - 98 % [facility] Blood 03/18/2024 7:23 PM SWATCH CUTTER 03/18/2024 7:28 PM SWATCH CUTTER Brenda Mayberry CLINIC NURSE LAB BLOOD ORDERABLES Final Result Performing Organization Address [facility] de Phone Number [facility] [address] [place] [address] * POCT glucose (03/18/2024 7:12 PM SWATCH CUTTER) Glucose, POC 114 70 - 199 mg/dL Comment: For Glucose values <35 mg/dl when Hematocrit is >60 mg/dl,the test may not accurately detect significant hypoglycemia,and testing in the Laboratory should be considered if clinically indicated. Blood 03/18/2024 7:12 PM SWATCH CUTTER 03/18/2024 7:12 PM SWATCH CUTTER Basli Adhikari MD LAB POCT ORDERABLES - DE VICE Final Result Performing Organization Address [facility]/ZIP Co de Phone Number [facility] [address] [place] [address] * Critical Care (03/18/2024 6:39 PM SWATCH CUTTER) Narrative Gian Robertson MD - 03/18/2024 6:39 PM SWATCH CUTTER Roderick Couch DNP ? 03/19/2024 ??5:10 AM Critical Care Performed by: Roderick Couch DNP Authorized by: Roderick Couch DNP ?? CRITICAL CARE: ??Team: ??[facility] CT ??Shift: ??PM ??Level of Billing: ??Subsequent [...] plan with the patient's team and other medical/wedding consultant staff. This time was in addition to and separate from care provided by other practitioners on this day of service. ?? us Roderick Couch DNP IN CLINIC/BEDSIDE OR DERABLES Final Result * POCT glucose (03/18/2024 6:07 PM SWATCH CUTTER) [facility] Glucose, POC 82 70 - 199 mg/dL Comment: For Glucose values <35 mg/dl when Hematocrit is >60 mg/dl,the test may not accurately detect significant hypoglycemia,and testing in the Laboratory should be considered if clinically indicated. Blood 03/18/2024 6:07 PM SWATCH CUTTER 03/18/2024 6:07 PM SWATCH CUTTER us Basil Adhikari MD LAB POCT ORDERABLES - DE VICE Final Result Performing Organization Address [facility]/ZIP Co de Phone Number [facility] [address] [place] [address] * XR Chest 1 View - Portable (03/18/2024 4:41 PM SWATCH CUTTER) Anatomical Region Laterality Modality Body, Chest N/A Computed Radiogr aphy 03/18/2024 6:28 PM SWATCH CUTTER Impressions 03/18/2024 6:28 PM SWATCH CUTTER FINDINGS/IMPRESSION: Postoperative changes of ascending aortic replacement is seen with sternotomy wires, and prosthetic aortic valve in place. A right IJ central venous catheter tip terminates in the superior vena cava. ??The right IJ Montezuma-Christoph catheter terminates in the main pulmonary artery. ??Mediastinal drains are seen. ??Bilateral shoulder arthroplasties are seen. ??Surgical clips superimposes the neck. Minimal left basilar atelectatic changes are seen. ??There is no focal consolidation, pleural effusion or pneumothorax. ??Cardiomediastinum is stable. Electronically signed by: Starla Hidalgo M.D. Narrative 03/18/2024 6:28 PM SWATCH CUTTER EXAMINATION: XR CHEST 1 VIEW HISTORY: cardiac [...] the superior vena cava. The right IJ Montezuma-Christoph catheter terminates in the main pulmonary artery. Mediastinal drains are seen. Bilateral shoulder arthroplasties are seen. Surgical clips superimposes the neck. Minimal left basilar atelectatic changes are seen. There is no focal consolidation, pleural effusion or pneumothorax. Cardiomediastinum is stable. Electronically signed by: Starla Hidalgo M.D. Brenda Mayberry CLINIC NURSE IMG XR PROCEDURES Final Re sult * POCT glucose (03/18/2024 4:27 PM SWATCH CUTTER) Glucose, POC 121 70 - 199 mg/dL Comment: For Glucose values <35 mg/dl when Hematocrit is >60 mg/dl,the test may not accurately detect significant hypoglycemia,and testing in the Laboratory should be considered if clinically indicated. Blood 03/18/2024 4:27 PM SWATCH CUTTER 03/18/2024 4:27 PM SWATCH CUTTER us Basil Adhikari MD LAB POCT ORDERABLES - DE VICE Final Result [facility] [address] [place] [address] * Critical Care (03/18/2024 4:19 PM SWATCH CUTTER) Narrative Gian Robertson MD - 03/18/2024 4:19 PM SWATCH CUTTER Brenda Mayberry NP ? 03/18/2024 ??5:34 PM Critical Care Performed by: Brenda Mayberry NP Authorized by: Brenda Mayberry NP ?? CRITICAL CARE: ??Team: ??[facility] CT ??Shift: ??AM ??Level of Billing: ??Critical [...] plan with the ICU team and other medical/wedding consultant staff, making frequent assessments and decisions [...] Final Result * eGFR (03/18/2024 4:17 PM SWATCH CUTTER) eGFR 81 >=60 mL/min/1. 73 m2 Comment: [...] last reviewed 2021. Blood 03/18/2024 4:17 PM SWATCH CUTTER 03/18/2024 4:32 PM SWATCH CUTTER Brenda Mayberry NP LAB BLOOD ORDERABLES Final Result Performing Organization Address City/[facility]/ZIP Co ks Phone Number [facility] [address] Department of Laboratories [place], [place] [id number] * (ABNORMAL) Calcium, ionized (03/18/2024 4:17 PM SWATCH CUTTER) Calcium, Ionized 5.37(H) 4.50 - 5.10 mg/dL Blood 03/18/2024 4:17 PM SWATCH CUTTER 03/18/2024 4:32 PM SWATCH CUTTER Brenda Mayberry NP LAB BLOOD ORDERABLES Final Result Performing Organization Address City/[facility] Co de Phone Number [facility] [address] [place] [address] * aPTT (03/18/2024 4:17 PM SWATCH CUTTER) Pathologist [facility] aPTT 37 28 - 38 sec Comment: Interpretive Data Heparin therapeutic range: 66.0 - 100.0 seconds. Range based on correlation with therapeutic heparin activity range of 0.3 - 0.7 Units/mL. Current interpretive data was last revised on 2022. Blood 03/18/2024 4:17 PM SWATCH CUTTER 03/18/2024 4:32 PM SWATCH CUTTER Brenda Mayberry NP LAB BLOOD ORDERABLES Final Result Performing Organization Address [facility] de Phone Number [facility] [address] [facility] [place] [address] * (ABNORMAL) Protime-INR (03/18/2024 4:17 PM SWATCH CUTTER) Pathologist [facility] PT 16.0(H) 9.7 - 13.0 sec INR 1.47(H) 0.90 - 1.20 [facility] Comment: Interpretive data Oral anticoagulant therapeutic ranges: Venous thromboembolism prophylaxis or treatment: 2.0-3.0 CARDIOLOGY Standard range: 2.0-3.0 High-intensity range: 2.5-3.5 Refer to indication-specific guidelines for appropriate target ranges for prosthetic heart valve replacement. Current interpretive data was last revised on 2019. Blood 03/18/2024 4:17 PM SWATCH CUTTER 03/18/2024 4:32 PM SWATCH CUTTER Brenda Mayberry NP LAB BLOOD ORDERABLES Final Result Performing Organization Address [facility] de Phone Number [facility] [address] [facility] [place] [address] * (ABNORMAL) CBC without differential (03/18/2024 4:17 PM SWATCH CUTTER) Pathologist [facility] WBC 8.5 3.8 - 9.9 K/cumm Hgb 11.1(L) 13.0 - 17.5 g/dL [facility] Hct 31.9(L) 38.9 - 50.3 % [facility] Plt 95(L) 150 - 400 K/cumm [facility] MPV 9.2 9.1 - 12.3 fL [facility] RBC 3.65(L) 4.30 - 5.80 M/cumm [facility] MCV 87.4 81.3 - 96.4 fL [facility] MCH 30.4 27.1 - 33.3 pg [facility] MCHC 34.8 32.3 - 35.7 g/dL [facility] RDW CV 12.5 11.1 - 14.9 % [facility] RDW SD 39.9 35.7 - 48.1 fL [facility] NRBC abs 0.00 0.00 - 0.01 K/cumm [facility] Blood 03/18/2024 4:17 PM SWATCH CUTTER 03/18/2024 4:32 PM SWATCH CUTTER Brenda Mayberry NP LAB BLOOD ORDERABLES Final Result Performing Organization Address City/[facility]/ZIP Co de Phone Number [facility] [address] [place] [address] * Phosphorus (03/18/2024 4:17 PM SWATCH CUTTER) [facility] Phosphorus, pl 3.6 2.3 - 4.5 mg/dL Blood 03/18/2024 4:17 PM SWATCH CUTTER 03/18/2024 4:32 PM SWATCH CUTTER Brenda Mayberry NP LAB BLOOD ORDERABLES Final Result Performing Organization Address City/[facility]/ZIP Co de Phone Number [facility] [address] [facility] [place] [address] * Magnesium (03/18/2024 4:17 PM SWATCH CUTTER) [facility] Magnesium 2.3 1.4 - 2.5 mg/dL Blood 03/18/2024 4:17 PM SWATCH CUTTER 03/18/2024 4:32 PM SWATCH CUTTER Brenda Mayberry NP LAB BLOOD ORDERABLES Final Result Performing Organization Address [facility] Co de Phone Number [facility] [address] [place] [address] * (ABNORMAL) Blood gas, arterial (03/18/2024 4:17 PM SWATCH CUTTER) [facility] pH, Art 7.41 7.35 - 7.45 PCO2, Arterial 33(L) 35 - 45 mmHg [facility] PO2, Arterial 168(H) 83 - 108 mmHg [facility] HCO3 Art (Calculated) 21 20 - 30 mmol/L [facility] BE, art -3 mmol/L [facility] Comment: Interpretive Data No Reference Range Established Current Interpretive Data was last revised on 2017 O2 Sat Art (Calculated) 100(H) 94 - 98 % [facility] Blood 03/18/2024 4:17 PM SWATCH CUTTER 03/18/2024 4:32 PM SWATCH CUTTER Brenda Mayberry NP LAB BLOOD ORDERABLES Final Result Performing Organization Address [facility] Co de Phone Number [facility] [address] [place] [address] * (ABNORMAL) Basic metabolic panel (03/18/2024 4:17 PM SWATCH CUTTER) [facility] Sodium 137 135 - 145 mmol/L Potassium, pl 4.3 3.3 - 4.9 mmol/L [facility] Chloride 108 97 - 110 mmol/L [facility] CO2 21(L) 22 - 32 mmol/L [facility] Anion gap 8 2 - 15 mmol/L [facility] BUN 12 6 - 25 mg/dL [facility] Creatinine 0.93 0.80 - 1.30 mg/dL [facility] Glucose 124 70 - 199 mg/dL [facility] Comment: Interpretive Data Fasting glucose >/= 126 [...] 2022. Calcium 9.0 8.5 - 10.3 mg/dL [facility] Blood 03/18/2024 4:17 PM SWATCH CUTTER 03/18/2024 4:32 PM SWATCH CUTTER Brenda Mayberry NP LAB BLOOD ORDERABLES Final Result Performing Organization Address [facility] Co de Phone Number [facility] [address] [place] [address] * aPTT (03/18/2024 3:38 PM SWATCH CUTTER) aPTT 38 28 - 38 sec Comment: Interpretive Data Heparin therapeutic range: 66.0 - 100.0 seconds. Range based on correlation with therapeutic heparin activity range of 0.3 - 0.7 Units/mL. Current interpretive data was last revised on 2022. Blood 03/18/2024 3:38 PM SWATCH CUTTER 03/18/2024 3:38 PM SWATCH CUTTER Basil Adhikari MD LAB BLOOD ORDERABLES Fin al Result Performing Organization Address City/[facility]/ZIP Co de Phone Number [facility] [address] [place], [place] [id number] * (ABNORMAL) Protime-INR (03/18/2024 3:38 PM SWATCH CUTTER) PT 17.5(H) 9.7 - 13.0 sec INR 1.60(H) 0.90 - 1.20 [facility] Comment: Interpretive data Oral anticoagulant therapeutic ranges: Venous thromboembolism prophylaxis or treatment: 2.0-3.0 CARDIOLOGY Standard range: 2.0-3.0 High-intensity range: 2.5-3.5 Refer to indication-specific guidelines for appropriate target ranges for prosthetic heart valve replacement. Current interpretive data was last revised on 2019. Blood 03/18/2024 3:38 PM SWATCH CUTTER 03/18/2024 3:38 PM SWATCH CUTTER Basil Adhikari MD LAB BLOOD ORDERABLES Fin al Result Performing Organization Address [facility] Co de Phone Number [facility] [address] [facility] [address] [place], [place] [id number] * Fibrinogen (03/18/2024 3:38 PM SWATCH CUTTER) Pathologist [facility] Fibrinogen 184 170 - 400 mg/dL Blood 03/18/2024 3:38 PM SWATCH CUTTER 03/18/2024 3:38 PM SWATCH CUTTER Basil Adhikari MD LAB BLOOD ORDERABLES Fin al Result Performing Organization Address [facility] de Phone Number [facility] [address] [facility] [place] [address] * (ABNORMAL) CBC without differential (03/18/2024 3:38 PM SWATCH CUTTER) WBC 14.2(H) 3.8 - 9.9 K/cumm Hgb 10.6(L) 13.0 - 17.5 g/dL [facility] Hct 30.7(L) 38.9 - 50.3 % [facility] Plt 108(L) 150 - 400 K/cumm [facility] MPV 9.5 9.1 - 12.3 fL [facility] RBC 3.46(L) 4.30 - 5.80 M/cumm [facility] MCV 88.7 81.3 - 96.4 fL [facility] MCH 30.6 27.1 - 33.3 pg [facility] MCHC 34.5 32.3 - 35.7 g/dL [facility] RDW CV 12.5 11.1 - 14.9 % [facility] RDW SD 40.1 35.7 - 48.1 fL [facility] NRBC abs 0.00 0.00 - 0.01 K/cumm [facility] Blood 03/18/2024 3:38 PM SWATCH CUTTER 03/18/2024 3:38 PM SWATCH CUTTER Basil Adhikari MD LAB BLOOD ORDERABLES Fin al Result Performing Organization Address [facility]/ZIP Co de Phone Number [facility] [address] [place] [place] [address] * POC Activated Clotting Time, High Range (03/18/2024 3:35 PM SWATCH CUTTER) ACT 130 87 - 138 sec Blood 03/18/2024 3:35 PM SWATCH CUTTER 03/18/2024 3:35 PM SWATCH CUTTER Basil Adhikari MD LAB BLOOD ORDERABLES Fin al Result Performing Organization Address [facility] Co de Phone Number [facility] [address] [employer] [place], [place] [id number] * (ABNORMAL) POC Blood Gas and Chemistries, Arterial - (03/18/2024 3:35 PM SWATCH CUTTER) pH, Art POC 7.37 7.35 - 7.45 pCO2, Art POC 42 35 - 45 mmHg [facility] pO2, Art POC 330(H) 80 - 108 mmHg [facility] Na, POC 130(L) 135 - 145 mmol/L [facility] K POC 4.6 3.3 - 4.9 mmol/L [facility] Comment: Interpretive Data This method is not able to assess for hemolysis, which may falsely increase potassium concentrations. If further testing is needed to evaluate this result, consider in-laboratory plasma potassium. Current Interpretive Data was last revised on 2021. Cl, POC 103 97 - 110 mmol/L [facility] Ionized Ca, POC 6.06(H) 4.50 - 5.10 mg/dL [facility] Glucose, POC 157 70 - 199 mg/dL [facility] Lactate, POC 1.0 0.0 - 2.0 mmol/L [facility] O2Hb, Art POC 96.9(H) 90.0 - 95.0 % [facility] Carboxhgb fract 1.0 0.0 - 2.9 % [facility] Methemoglobin 1.3 0.0 - 1.9 % [facility] HHb, POC 0.9 0.0 - 5.0 % [facility] SO2 (shayne) arterial 99(H) 90 - 95 % [facility] BE, art, POC -1.0 -2.0 - 2.0 mmol/L [facility] HCO3, Art POC 24 20 - 30 mmol/L [facility] Hct, POC 34.0(L) 38.9 - 50.3 % [facility] Total Hb, POC 11.2(L) 13.0 - 17.5 g/dL [facility] Blood 03/18/2024 3:35 PM SWATCH CUTTER 03/18/2024 3:35 PM SWATCH CUTTER us Basil Adhikari MD LAB POCT ORDERABLES - DE VICE Final Result [facility] [address] [place] [address] * (ABNORMAL) POC Blood Gas and Chemistries, Arterial - (03/18/2024 2:41 PM SWATCH CUTTER) pH, Art POC 7.33(L) 7.35 - 7.45 pCO2, Art POC 45 35 - 45 mmHg [facility] pO2, Art POC 345(H) 80 - 108 mmHg [facility] Na, POC 129(L) 135 - 145 mmol/L [facility] K POC 5.3(H) 3.3 - 4.9 mmol/L [facility] Comment: Interpretive Data This method is not able to assess for hemolysis, which may falsely increase potassium concentrations. If further testing is needed to evaluate this result, consider in-laboratory plasma potassium. Current Interpretive Data was last revised on 2021. Cl, POC 102 97 - 110 mmol/L [facility] Ionized Ca, POC 4.66 4.50 - 5.10 mg/dL [facility] Glucose, POC 153 70 - 199 mg/dL [facility] Lactate, POC 0.8 0.0 - 2.0 mmol/L [facility] O2Hb, Art POC 96.6(H) 90.0 - 95.0 % [facility] Carboxhgb fract 1.2 0.0 - 2.9 % [facility] Methemoglobin 1.4 0.0 - 1.9 % [facility] HHb, POC 0.8 0.0 - 5.0 % [facility] SO2 (shayne) arterial 99(H) 90 - 95 % [facility] BE, art, POC -2.3(L) -2.0 - 2.0 mmol/L [facility] HCO3, Art POC 23 20 - 30 mmol/L [facility] Hct, POC 32.0(L) 38.9 - 50.3 % [facility] Total Hb, POC 10.7(L) 13.0 - 17.5 g/dL [facility] Blood 03/18/2024 2:41 PM SWATCH CUTTER 03/18/2024 2:41 PM SWATCH CUTTER Basil Adhikari MD LAB POCT ORDERABLES - DE VICE Final Result Performing Organization Address [facility]/ZIP Co de Phone Number [facility] [address] [place] [address] * (ABNORMAL) POC Activated Clotting Time, High Range (03/18/2024 2:40 PM SWATCH CUTTER) ACT 474(H) 87 - 138 sec Blood 03/18/2024 2:40 PM SWATCH CUTTER 03/18/2024 2:40 PM SWATCH CUTTER Basil Adhikari MD LAB BLOOD ORDERABLES Fin al Result Performing Organization Address [facility]/ZIP Co de Phone Number [facility] [address] [place] [address] * (ABNORMAL) POC Blood Gas and Chemistries, Venous - (03/18/2024 2:30 PM SWATCH CUTTER) pH, Boyd POC 7.34 7.32 - 7.45 pCO2, boyd POC 47 40 - 50 mmHg [facility] pO2, boyd POC 52(H) 35 - 42 mmHg [facility] Na, POC 131(L) 135 - 145 mmol/L [facility] K POC 5.0(H) 3.3 - 4.9 mmol/L [facility] Comment: Interpretive Data This method is not able to assess for hemolysis, which may falsely increase potassium concentrations. If further testing is needed to evaluate this result, consider in-laboratory plasma potassium. Current Interpretive Data was last revised on 2021. Cl, POC 101 97 - 110 mmol/L [facility] Ionized Ca, POC 4.65 4.50 - 5.10 mg/dL [facility] Glucose, POC 130 70 - 199 mg/dL [facility] Lactate, POC 0.6 0.0 - 2.0 mmol/L [facility] O2Hb, Boyd POC 81.4(L) 90.0 - 95.0 % [facility] Carboxhgb fract 1.5 0.0 - 2.9 % [facility] Methemoglobin 1.1 0.0 - 1.9 % [facility] HHb, POC 16.0(H) 0.0 - 5.0 % [facility] O2 Sat, Boyd POC (Shayne) 84(H) 68 - 77 % [facility] Base excess, boyd POC -0.7 mmol/L [facility] HCO3, Boyd POC 24 20 - 30 mmol/L [facility] Hct, POC 33.0(L) 38.9 - 50.3 % [facility] Total Hb, POC 11.0(L) 13.0 - 17.5 g/dL [facility] Blood 03/18/2024 2:30 PM SWATCH CUTTER 03/18/2024 2:30 PM SWATCH CUTTER us Basil Adhikari MD LAB POCT ORDERABLES - DE VICE Final Result [facility] [address] [place] [address] * Surgical pathology (03/18/2024 2:09 PM SWATCH CUTTER) Tissue (Aorta) 03/18/2024 2: 09 PM SWATCH CUTTER Comment:Placed in formalin a t end of case Narrative PATHOLOGY [facility] - 03/22/2024 11:52 AM SWATCH CUTTER [place] [address] [facility], [place], [place] ??[address] Tele: ?? Josie Cárdenas MD - Automotive Refinish Technician Note to Patients: This report may contain [...] PATHOLOGY REPORT Patient Name: ??GIAN LEE Address: ??[address] [place] [address] Gender: ??M : ??1940 (Age: 83) Service: ??Cardiothoracic Location: ??[id number], ?? Hospital #: ??[id number] Patient Type: ??[facility] Accession #: ? [id number] Taken: ? [...] ??The vascular wall intact, and mildly hemorrhagic. Global Manager sections are submitted as follows: ??A1 - Global Manager sections, A2-A6 - Additional sections. ?? [facility]/03/19/2024 14:38 ? DMS,JAP MICROSCOPIC DESCRIPTION: Microscopic examination [...] a non-neoplastic entity. Clerical Data Follows A; 76297, 56478, 92688(6) REPORT IMAGES AND/OR SCANNED DOCUMENTS ONLY VIEWABLE IN PDF FORMAT The immunohistochemical test(s) cited in this report, if any, was developed and its performance characteristics determined by [facility] Pathology Department. ??It has not been cleared or approved by the U.S. Food and Drug Administration. ??The FDA has determined that such clearance or approval is not necessary. ??This test is used for clinical purposes. ??It should not be regarded as investigational or for research. ??[facility] Laboratory is certified under the Clinical Laboratory [...] part or completely in the following laboratories: [facility], [address] [facility], [place] [address] [facility], [address] [facility], [place] [address]. Basil Adhikari MD LAB PATHOLOGY ORDERABLES Final Result Performing Organization Address City/[facility]/ZIP Co de Phone Number [facility]OLOGY [facility] Laboratory Receiving [address] [place] [address] * (ABNORMAL) POC Activated Clotting Time, High Range (03/18/2024 2:08 PM SWATCH CUTTER) Pathologist [facility] ACT 627(H) 87 - 138 sec Blood 03/18/2024 2:08 PM SWATCH CUTTER 03/18/2024 2:08 PM SWATCH CUTTER Basil Adhikari MD LAB BLOOD ORDERABLES Fin al Result Performing Organization Address [facility]/ZIP Co de Phone Number [facility] [address] [place] [address] * (ABNORMAL) POC Blood Gas and Chemistries, Arterial - (03/18/2024 2:08 PM SWATCH CUTTER) [facility] pH, Art POC 7.35 7.35 - 7.45 pCO2, Art POC 44 35 - 45 mmHg [facility] pO2, Art POC 417(H) 80 - 108 mmHg [facility] Na, POC 129(L) 135 - 145 mmol/L [facility] K POC 5.7(H) 3.3 - 4.9 mmol/L [facility] Comment: Interpretive Data This method is not able to assess for hemolysis, which may falsely increase potassium concentrations. If further testing is needed to evaluate this result, consider in-laboratory plasma potassium. Current Interpretive Data was last revised on 2021. Cl, POC 103 97 - 110 mmol/L [facility] Ionized Ca, POC 4.68 4.50 - 5.10 mg/dL [facility] Glucose, POC 122 70 - 199 mg/dL [facility] Lactate, POC 0.5 0.0 - 2.0 mmol/L [facility] O2Hb, Art POC 97.5(H) 90.0 - 95.0 % [facility] Carboxhgb fract 1.0 0.0 - 2.9 % [facility] Methemoglobin 0.8 0.0 - 1.9 % [facility] HHb, POC 0.7 0.0 - 5.0 % [facility] SO2 (shayne) arterial 99(H) 90 - 95 % [facility] BE, art, POC -1.4 -2.0 - 2.0 mmol/L [facility] HCO3, Art POC 24 20 - 30 mmol/L [facility] Hct, POC 33.0(L) 38.9 - 50.3 % [facility] Total Hb, POC 11.0(L) 13.0 - 17.5 g/dL [facility] Blood 03/18/2024 2:08 PM SWATCH CUTTER 03/18/2024 2:08 PM SWATCH CUTTER us Basil Adhikari MD LAB POCT ORDERABLES - DE VICE Final Result [facility] [address] [place] [address] * (ABNORMAL) POC Blood Gas and Chemistries, Arterial - (03/18/2024 1:50 PM SWATCH CUTTER) pH, Art POC 7.39 7.35 - 7.45 pCO2, Art POC 38 35 - 45 mmHg [facility] pO2, Art POC 426(H) 80 - 108 mmHg [facility] Na, POC 128(L) 135 - 145 mmol/L [facility] K POC 4.4 3.3 - 4.9 mmol/L [facility] Comment: Interpretive Data This method is not able to assess for hemolysis, which may falsely increase potassium concentrations. If further testing is needed to evaluate this result, consider in-laboratory plasma potassium. Current Interpretive Data was last revised on 2021. Cl, POC 101 97 - 110 mmol/L [facility] Ionized Ca, POC 4.82 4.50 - 5.10 mg/dL [facility] Glucose, POC 113 70 - 199 mg/dL [facility] Lactate, POC 0.5 0.0 - 2.0 mmol/L [facility] O2Hb, Art POC 97.1(H) 90.0 - 95.0 % [facility] Carboxhgb fract 1.4 0.0 - 2.9 % [facility] Methemoglobin 1.2 0.0 - 1.9 % [facility] HHb, POC 0.3 0.0 - 5.0 % [facility] SO2 (shayne) arterial 100(H) 90 - 95 % [facility] BE, art, POC -1.7 -2.0 - 2.0 mmol/L [facility] HCO3, Art POC 24 20 - 30 mmol/L [facility] Hct, POC 39.0 38.9 - 50.3 % [facility] Total Hb, POC 12.9(L) 13.0 - 17.5 g/dL [facility] Blood 03/18/2024 1:50 PM SWATCH CUTTER 03/18/2024 1:50 PM SWATCH CUTTER Basil Adhikari MD LAB POCT ORDERABLES - DE VICE Final Result Performing Organization Address [facility]/ZIP Co de Phone Number [facility] [address] [employer] [place], [place] [id number] * (ABNORMAL) POC Activated Clotting Time, High Range (03/18/2024 1:49 PM SWATCH CUTTER) ACT 608(H) 87 - 138 sec Blood 03/18/2024 1:49 PM SWATCH CUTTER 03/18/2024 1:49 PM SWATCH CUTTER Basil Adhikari MD LAB BLOOD ORDERABLES Fin al Result Performing Organization Address [facility]/ZIP Co de Phone Number [facility] [address] [place] [address] * BW AN SHEATH INTRODUCER PERFORMABLE, PULMONARY ARTERY CATH, IN AN PROCEDURE PLACEHOLDER (51:41 PM SWATCH CUTTER) Narrative Gamal Asher MD PhD - 03/18/2024 1:41 PM SWATCH CUTTER Gamal Asher MD PhD ? 03/18/2024 ??1:41 [...] PhD ANESTHESIA ORDERABLES Fi nal Result * IN AN CENTRAL LINE QUADRUPLE LUMEN, IN AN PROCEDURE PLACEHOLDER (03/18/2024 1:40 PM SWATCH CUTTER) Narrative Gamal Asher MD PhD - 03/18/2024 1:40 PM SWATCH CUTTER Gamal Asher MD PhD ? 03/18/2024 ??1:41 [...] PhD ANESTHESIA ORDERABLES Fi nal Result * IN AN PROCEDURE PLACEHOLDER (03/18/2024 1:39 PM SWATCH CUTTER) Narrative Gamal Asher MD PhD - 03/18/2024 1:39 PM SWATCH CUTTER Gamal Asher MD PhD ? 03/18/2024 ??1:39 [...] PhD ANESTHESIA ORDERABLES Fi nal Result * IN AN PROCEDURE PLACEHOLDER (03/18/2024 1:38 PM SWATCH CUTTER) Narrative Gamal Asher MD PhD - 03/18/2024 1:38 PM SWATCH CUTTER Gamal Asher MD PhD ? 03/18/2024 ??1:38 [...] PhD ANESTHESIA ORDERABLES Fi nal Result * IN AN ELECTIVE ENDOTRACHEAL AIRWAY, IN AN PROCEDURE PLACEHOLDER (03/18/2024 1:37 PM SWATCH CUTTER) Narrative Gamal Asher MD PhD - 03/18/2024 1:37 PM SWATCH CUTTER Gamal Asher MD PhD ? 03/18/2024 ??1:37 [...] PhD ANESTHESIA ORDERABLES Fi nal Result * IN AN PROCEDURE PLACEHOLDER (03/18/2024 1:29 PM SWATCH CUTTER) Anatomical Region Laterality Modality Other Narrative 03/18/2024 1:29 PM SWATCH CUTTER Derek Marin MD PhD ? 03/18/2024 ??4:18 [...] code: LIDIA placement and diagnostic exam, non-congenital (98201) ICD code(s) for medical necessity: I71.2 - [...] inferior: normal 16- Apical septal: normal 17- Alpha: normal Valves: Aortic Valve: Annulus: dilated Leaflet [...] the written comments contained within the report. Alexsander Cortez MD ANESTHESIA ORDERABLES Ed ited Result - Final * POC Activated Clotting Time, High Range (03/18/2024 1:11 PM SWATCH CUTTER) ACT 111 87 - 138 sec Blood 03/18/2024 1:11 PM SWATCH CUTTER 03/18/2024 1:11 PM SWATCH CUTTER Basil Adhikari MD LAB BLOOD ORDERABLES Fin al Result Performing Organization Address [facility] de Phone Number [facility] [address] [place] [address] * LIDIA Add-On For OR (03/18/2024 12:05 PM SWATCH CUTTER) BSA 1.88 m2 CONS SCIMAGE Narrative CONS SCIMAGE - 03/18/2024 12:05 PM SWATCH CUTTER Procedure Auto Finalized by Rule: MELINDA CV LIDIA DURING CASE OR Please see the Anesthesiologist's Procedure Note for the results. Gamal Asher MD PhD CV ECHO PROCEDURES Final Result Performing Organization Address [facility] de Phone Number CONS SCIMAGE * Check Sample (03/18/2024 9:54 AM SWATCH CUTTER) ABO Rh O Positive MBC HCLL OTHER 03/18/2024 9:54 AM SWATCH CUTTER 03/18/2024 10:20 AM SWATCH CUTTER us Basil Adhikari MD LAB BLOOD ORDERABLES Fin al Result Performing Organization Address [facility] Co de Phone Number [facility] [address] [place] [address] MBC * ECG 12 lead (03/18/2024 9:34 AM SWATCH CUTTER) 03/18/2024 9:34 AM SWATCH CUTTER Narrative [facility] - 03/18/2024 10:15 AM SWATCH CUTTER Vent Rate: 46 bpm RR Interval: 1277 msec IN Interval: 115 msec QRS Duration: 84 msec QT Interval: 430 msec QTC Interval: 391 msec P-R-T [place]: 56 - -19 - -14 degrees IMPRESSION: SINUS BRADYCARDIA WITH SINUS ARRHYTHMIA WITH SHORT IN INTERVAL POSSIBLE ANTERIOR MYOCARDIAL INFARCTION , PROBABLY OLD BORDERLINE ECG Electronically Signed By: Klaus Humphrey MD PhD us Ev Freed NP ECG ORDERABLES Final Res ult Performing Organization Address [facility]/ZIP Co de Phone Number [facility] * Prepare RBC: 4 Units (03/18/2024 9:12 AM SWATCH CUTTER) Product code [id number] [facility] [facility] Unit Number [id number] [facility] Product Blood Type OPOS [facility] Dispense Status RETURNED [facility] Product code [id number] Unit Number [id number] [facility] Product Blood Type OPOS [facility] Dispense Status RETURNED [facility] Product code [id number] [facility] Unit Number [id number] 7-[id number] [facility] Product Blood Type OPOS [facility] Dispense Status RETURNED [facility] Product code [id number] [facility] Unit Number [id number] [facility] Product Blood Type OPOS [facility] Dispense Status RETURNED [facility] Blood 03/18/2024 9:12 AM SWATCH CUTTER Narrative [facility] - 03/22/2024 7:46 AM SWATCH CUTTER Specify Procedure:->tissue aortic root replacement Are special requirements needed? (All products are leukoreduced and CMV- safe)- >No Date required:-[id number] LRRBC # of [id number] Reasons:-Hold for procedure (specify procedure)} us Ev Freed NP BLOOD BANK PRODUCT ORDERA BLES Final Result Performing Organization Address City/[facility]/ZIP Co de Phone Number [facility] [address] [place] [address] * Differential, auto (03/15/2024 12:29 PM SWATCH CUTTER) Neutrophil abs 2.5 1.5 - 6.5 K/cumm Imm gran abs 0.0 0.0 - 0.1 K/cumm [facility] Lymphocyte abs 1.1 0.8 - 3.3 K/cumm [facility] Monocyte abs 0.6 0.2 - 0.8 K/cumm [facility] Eosinophil abs 0.2 0.0 - 0.5 K/cumm [facility] Basophil abs 0.0 0.0 - 0.1 K/cumm [facility] Neutrophil pct 56.5 % [facility] Comment: Interpretive Data Percent cell count reference ranges are not reported, since discordance with absolute values may lead to misinterpretation of CBC data. Current Interpretive Data was last revised on 2017. Imm gran pct 0.5 % [facility] Comment: Interpretive Data Percent cell count reference ranges are not reported, since discordance with absolute values may lead to misinterpretation of CBC data. Current Interpretive Data was last revised on 2017. Lymphocyte pct 23.8 % [facility] Comment: Interpretive Data Percent cell count reference ranges are not reported, since discordance with absolute values may lead to misinterpretation of CBC data. Current Interpretive Data was last revised on 2017. Monocyte pct 14.5 % [facility] Comment: Interpretive Data Percent cell count reference ranges are not reported, since discordance with absolute values may lead to misinterpretation of CBC data. Current Interpretive Data was last revised on 2017. Eosinophil pct 3.8 % [facility] Comment: Interpretive Data Percent cell count reference ranges are not reported, since discordance with absolute values may lead to misinterpretation of CBC data. Current Interpretive Data was last revised on 2017. Basophil pct 0.9 % [facility] Comment: Interpretive Data Percent cell count reference ranges are not reported, since discordance with absolute values may lead to misinterpretation of CBC data. Current Interpretive Data was last revised on 2017. Blood 03/15/2024 12:2 9 PM SWATCH CUTTER 03/15/2024 12:29 PM SWATCH CUTTER us Basil Adhikari MD LAB BLOOD ORDERABLES Fin al Result [facility] [address] [place] [address] * CBC with auto differential (03/15/2024 12:29 PM SWATCH CUTTER) WBC 4.4 3.8 - 9.9 K/cumm Hgb 14.5 13.0 - 17.5 g/dL [facility] Hct 42.9 38.9 - 50.3 % [facility] Plt 156 150 - 400 K/cumm [facility] MPV 9.9 9.1 - 12.3 fL [facility] RBC 4.82 4.30 - 5.80 M/cumm [facility] MCV 89.0 81.3 - 96.4 fL [facility] MCH 30.1 27.1 - 33.3 pg [facility] MCHC 33.8 32.3 - 35.7 g/dL [facility] RDW CV 12.4 11.1 - 14.9 % [facility] RDW SD 40.8 35.7 - 48.1 fL [facility] NRBC abs 0.00 0.00 - 0.01 K/cumm [facility] Blood 03/15/2024 12:2 9 PM SWATCH CUTTER 03/15/2024 12:29 PM SWATCH CUTTER Basil Adhikari MD LAB BLOOD ORDERABLES Fin al Result Performing Organization Address [facility] Co de Phone Number [facility] [address] [place] [address] * Type and screen (03/15/2024 12:29 PM SWATCH CUTTER) Alex, indirect Negative ABO Rh O Positive [facility] Blood 03/15/2024 12:2 9 PM SWATCH CUTTER 03/15/2024 12:45 PM SWATCH CUTTER Narrative [facility] - 03/15/2024 1:31 PM SWATCH CUTTER No blood transfusions last 90 days Surgery 03/18/24 No blood transfusions last 90 days Surgery 03/18/24 Has the patient had Daratumumab or Isatuximab in the past 6 months?->No Basil Adhikari MD LAB BLOOD BANK TEST ORDE WILLOW Final Result [facility] [address] [place] [address] * Hemoglobin A1c (03/15/2024 12:29 PM SWATCH CUTTER) [facility] Hgb A1C 5.2 4.0 - 5.6 % Estimated Average Glucose 103 mg/dL [facility] Comment: The ADA recommends reporting an estimated Average Glucose (eAG) with all Hemoglobin A1c results using the equation derived from a study of 507 normal and diabetic adults. ??Minority populations were underrepresented and children were not included. ?? (Diabetes Care 31:6705-8861, 2008). ??The eAG is not equivalent to a fasting glucose. Blood 03/15/2024 12:2 9 PM SWATCH CUTTER 03/15/2024 12:29 PM SWATCH CUTTER Basil Adhikari MD LAB BLOOD ORDERABLES Fin al Result Performing Organization Address [facility] de Phone Number [facility] [address] [place] [address] * eGFR (03/15/2024 12:28 PM SWATCH CUTTER) [facility] eGFR 65 >=60 mL/min/1. 73 m2 Comment: [...] reviewed 2021. Blood 03/15/2024 12:2 8 PM SWATCH CUTTER 03/15/2024 12:28 PM SWATCH CUTTER us Basil Adhikari MD LAB BLOOD ORDERABLES Fin al Result [facility] [address] [place] [address] * (ABNORMAL) Comprehensive metabolic panel (03/15/2024 12:28 PM SWATCH CUTTER) Sodium 134(L) 135 - 145 mmol/L Potassium, pl 4.7 3.3 - 4.9 mmol/L [facility] Chloride 98 97 - 110 mmol/L [facility] CO2 25 22 - 32 mmol/L [facility] Anion gap 11 2 - 15 mmol/L [facility] BUN 12 6 - 25 mg/dL [facility] Creatinine 1.11 0.80 - 1.30 mg/dL [facility] Glucose 82 70 - 199 mg/dL [facility] Comment: Interpretive Data Fasting glucose >/= 126 [...] 2022. Calcium 9.3 8.5 - 10.3 mg/dL [facility] Bilirubin, total 0.8 0.1 - 1.2 mg/dL [facility] Protein, pl 6.8 6.5 - 8.5 g/dL [facility] Albumin 4.5 3.5 - 5.0 g/dL [facility] Alk phos 82 40 - 130 Units/L [facility] ALT 26 7 - 55 Units/L [facility] AST 39 10 - 50 Units/L [facility] Blood 03/15/2024 12:2 8 PM SWATCH CUTTER 03/15/2024 12:28 PM SWATCH CUTTER us Basil Adhikari MD LAB BLOOD ORDERABLES Fin al Result [facility] [address] [place] [address] * EMG/NCV - (02/05/2024 11:10 AM SWATCH CUTTER) Anatomical Region Laterality Modality EMG, EMG Impressions 02/05/2024 11:10 AM SWATCH CUTTER History: This is 83 years old male [...] Outside Reference (01/14/2024 12:05 AM CDT) Narrative RAD_PACS_OUTSIDE_FILM_[facility] - 03/15/2024 10:54 AM SWATCH CUTTER This order has been auto-finalized and does not contain a result. us Provider Transcribed Order IMG XR PROCEDURES Fin al Result RAD_PACS_OUTSIDE_FILM_[facility] * XR Outside Reference (01/14/2024 12:00 AM CDT) Narrative RAD_PACS_OUTSIDE_FILM_[facility] - 02/17/2024 12:32 PM SWATCH CUTTER This order has been auto-finalized and does not contain a result. us Provider Transcribed Order IMG XR PROCEDURES Fin al Result Performing Organization Address City/[facility]/ZIP Co de Phone Number RAD_PACS_OUTSIDE_FILM_[facility] * Neuromuscular Specimen Tracking Outpatient Blood (01/13/2024 12:27 PM CDT) Blood 01/13/2024 12:2 7 PM CDT 01/13/2024 7:01 PM CDT Narrative [facility] - 01/13/2024 7:06 PM CDT Blood draw complete Earl Bran II, MD LAB BLOOD ORDERABLES Final R esult Performing Organization Address [facility] Co de Phone Number [facility] [address] [place] [address] * Neuromuscular Testing Blood (01/13/2024 12:00 AM CDT) Blood (Serum) 01/13/2024 01/14/2024 Narrative [facility] - 02/02/2024 3:23 PM SWATCH CUTTER Please click on the PDF link to view the report containing this result Earl Bran II, MD LAB PATHOLOGY ORDERABLES Fin al Result Performing Organization Address [facility] Co de Phone Number [facility] Room [address] [place] [phone] from Last 3 Months Insurance [facility] FEDERAL MEDICARE [facility] Advance Directives For more information, please contact: [phone] * Full Code (Latest Code Status on [...] 8:19 AM 09/09/2019 6:53 PM Care Teams Lead Teacher Relationship Specialty Start Date End Date Martinez Pace MD [address] [place] [address] PCP - General 05/02/16 Dion Abraham MD [address] [place] [address] Referring Physician Cardiology 02/18/24 Basil Adhikari MD [address] [facility] [address] [place] [address] Consulting Physician Cardiothoracic Surgery 02/19/24
--- OUTSIDE RECORDS SUMMARY | 2024-04-08 08:15 | XMS_ITS | Clinical Summary ---
Author Organization [facility] Address [address] [place]: Epic Prelude ADT Z[place] BA[place] [address] Care Team Providers Care Savings Counselor Name Role Phone Unavailable Primary Care Provider Unavailabl e Allergies Active Allergy Reactions Criticality Noted Date Comments Sulfa (Sulfonamide Antibiotics) Rash High 03/2023 Medications levothyroxine 75 mcg tablet Take 1 Tablet (75 mcg) by mouth daily. 90 Tablet 2 2 Active levothyroxine 75 mcg tablet Take 1 Tablet (75 mcg) by mouth daily. 90 Tablet 2 2 Active mirtazapine (REMERON) 15 mg tablet Take 1 and 1/2 tablet by mouth at bedtime. 45 Tablet 5 10/07/2022 4:17 PM CDT 2 Active Sodium Fluoride (PreviDent 5000 Booster Plus) 1.1 % Paste Use a pea-sized amount once daily. [place] for 2 minutes, spit excess. No rinsing, eating, or drinking for 30 minutes after. 100 mL 11/15/2021 2:52 PM CDT 2 Active latanoprost (XALATAN) 0.005 % solution Instill 1 drop in both eyes every night at bedtime 2.5 mL 11 07/10/2022 4:50 PM CDT 2 Active predniSONE (DELTASONE) 10 mg tablet Take 1 tablet by mouth three times daily for 3 days, then 1 tablet by mouth twice daily for 2 days, then 1 tablet daily for 1 day. 14 Tablet 1 01/24/2022 5:00 PM CONTACT CENTER ANALYST 2 Active Sodium Fluoride (PreviDent 5000 Booster Plus) 1.1 % Paste USE A PEA SIZE AMOUNT TO BRUSH FOR 2 MINUTES THEN SPIT IT OUT. NO EATING, DRINKING OR RINSING FOR 30 MINUTES AFTER BRUSHING. 100 mL 02/15/2022 1:28 PM CONTACT CENTER ANALYST 2 Active benzonatate (TESSALON) 100 mg capsule Take 1 Capsule (100 mg) by mouth 3 times daily as needed for cough 30 Capsule 2 Active molnupiravir (Lagevrio, EUA,) 200 mg capsule Take 4 Capsules (800 mg) by mouth every 12 hours for 5 days 40 Capsule 2 Active mirtazapine (REMERON) 15 mg tablet Take 1 and 1/2 tablets by mouth at bedtime 45 Tablet 04/01/2022 2:27 PM CONTACT CENTER ANALYST 3 Active mirtazapine (REMERON) 15 mg tablet Take 1.5 Tablets (22.5 mg) by mouth daily at bedtime. 45 Tablet 4 11/08/2022 4:01 PM CDT 3 Active rosuvastatin (Crestor) 10 mg tablet Take 1 Tablet (10 mg) by mouth daily. 90 Tablet 3 03/21/2023 5:07 PM CONTACT CENTER ANALYST 3 Active cyanocobalamin, vitamin B-12, 1,000 mcg Capsule Take 1 capsule by mouth once a day 100 Capsule 3 3 Active mirtazapine (REMERON) 15 mg tablet Take 1.5 Tablets (22.5 mg) by mouth daily at bedtime. 45 Tablet 3 Active mirtazapine (REMERON) 15 mg tablet Take 1 and 1/2 tablets by mouth at bedtime 45 Tablet 5 05/13/2023 11:21 AM CONTACT CENTER ANALYST 3 Active Sodium Fluoride (PreviDent 5000 Booster Plus) 1.1 % Paste [place] with pea-sized amount once daily. [place] for 2 minutes and spit out excess. No eating, drinking, or rinsing for 30 minutes after. 100 mL 01/02/2023 10:15 AM CDT 3 Active venlafaxine (EFFEXOR XR) 75 mg Extended Release 24 hour capsule Take 1 Capsule (75 mg) by mouth daily. 30 Capsule 4 Active benzonatate (TESSALON) 100 mg capsule Take 1 Capsule (100 mg) by mouth 3 times daily as needed for congestion. 30 Capsule 05/08/2023 12:26 PM CONTACT CENTER ANALYST 4 Active levothyroxine 75 mcg tablet Take 1 Tablet (75 mcg) by mouth daily. 90 Tablet 3 02/07/2024 1:18 PM CONTACT CENTER ANALYST 4 Active sodium bicarbonate 650 mg tablet Take 1 tablet by mouth twice a day 60 Tablet 05/21/2023 2:28 PM CONTACT CENTER ANALYST 4 Active busPIRone (BUSPAR) 5 mg tablet Take 1 Tablet (5 mg) by mouth 2 times daily. 60 Tablet 06/16/2023 2:06 PM CDT 4 Active mirtazapine (REMERON) 15 mg tablet Take 1.5 tablets by mouth daily at bedtime 135 Tablet 2023 7:49 PM CDT 4 Active Sodium Fluoride (PreviDent 5000 Booster Plus) 1.1 % Paste FOLLOW PACKAGE INSTRUCTIONS 100 mL 1 07/25/2023 4:19 PM CDT 4 07/23/19 25 Active cyanocobalamin 1,000 mcg Tablet Take 1 Tablet (1,000 mcg) by mouth daily. 100 Tablet 3 02/07/2024 1:18 PM CONTACT CENTER ANALYST 4 Active tamsulosin (FLOMAX) 0.4 mg capsule Take 1 Capsule (0.4 mg) by mouth daily. 30 Capsule 2 09/02/2023 4:25 PM CDT 4 Active phenazopyridine 200 mg tablet Take 1 Tablet (200 mg) by mouth 3 times daily as needed for pain for 7 days. 21 Tablet 10/11/2023 2:33 PM CDT 4 Active trospium (SANCTURA) 20 mg Tablet Take 1 Tablet (20 mg) by mouth daily at bedtime. 30 Tablet 5 03/12/2024 4:49 PM CONTACT CENTER ANALYST 4 Active peg 3350-electrolyt es (GOLYTELY) 236-22.74-6.74 -5.86 gram Recon Soln Take 4,000 mL by mouth once for 1 dose. Follow directions given to you by prescriber. 4000 mL 11/08/2023 3:01 PM CDT 4 Active latanoprost (XALATAN) 0.005 % solution Administer 1 drop in both eyes daily at bedtime. 2.5 mL 11 11/15/2023 11:59 AM CDT 4 Active traMADoL (ULTRAM) 50 mg tablet Take 1 Tablet (50 mg) by mouth 2 times daily as needed FOR PAIN. 14 Tablet 11/20/2023 10:33 AM CDT 4 Active tamsulosin (FLOMAX) 0.4 mg capsule Take 2 Capsules (0.8 mg) by mouth daily at bedtime. 60 Capsule 1 4 Active vibegron 75 mg Tablet Take 1 Tablet by mouth daily. 30 Tablet 3 03/05/2024 2:05 PM CONTACT CENTER ANALYST 4 Active sacubitriL-vals brian (Entresto) 24-26 mg Tablet TAKE 1 TABLET BY MOUTH TWICE A DAY 180 Tablet 3 03/12/2024 4:49 PM CONTACT CENTER ANALYST 4 Active Sodium Fluoride 1.1 % Paste Apply to the teeth daily at nightime or as directed 100 mL 1 02/05/2024 3:07 PM CONTACT CENTER ANALYST 4 Active rosuvastatin (CRESTOR) 10 mg tablet Take 1 Tablet (10 mg) by mouth daily. 90 Tablet 2 4 Active tadalafiL (CIALIS) 20 mg tablet Take 1 tablet by mouth as needed 30 minutes before sexual activity. Do not use more than 1 dose in 24 hours. 10 Tablet 3 02/18/2024 2:35 PM CONTACT CENTER ANALYST 4 Active rivaroxaban (Xarelto) 10 mg Tablet Take 1 Tablet (10 mg) by mouth daily. 30 Tablet 03/05/2024 2:05 PM CONTACT CENTER ANALYST 4 Active busPIRone (BUSPAR) 5 mg tablet Take 1 Tablet (5 mg) by mouth 2 times daily. 180 Tablet 1 4 Active mirtazapine (REMERON) 15 mg tablet Take 1.5 Tablets (22.5 mg) by mouth daily at bedtime. 135 Tablet 1 03/23/2024 2:57 PM CONTACT CENTER ANALYST 4 Active Immunizations Immunization Administration Dates Next Due (COMIRNATY)(12 YR UP) COVID- 19 VACCINE, MRNA, SPIKE PROTEIN, LNP, OFELIA(PF) 30 MCG/0.3 ML IM SUSP 12/01/2023 (PREVNAR 20)(6 WKS UP) PNEUM OCOCCAL CONJUGATE VACCINE 20-VALENT (PCV20), POLYSACCHARIDE [id number] CONJUGATE, ADJUVANT 0.5 ML (PF) IM 12/01/2023 INFLUENZA VACCINE HIGH DOSE QUADRIVALENT 65 YR U P PF IM 12/25/2021 INFLUENZA VACCINE HIGH DOSE TRIVALENT SPLIT VIRUS, (65 YR UP), 0.5ML (PF), IM 12/22/2023 Social History Tobacco Use Types Packs/Day Years Used Date Smoking Tobacco: Never Assessed Sex and Gender Information Value Date Recorded Sex Assigned at Not on file Legal Sex Male 3:27 PM CDT Gender Identity Not on file Sexual Orientation Not on file Plan of Treatment Health Maintenance Due Date Last Done Comments DTAP/TDAP/TD VACCINES (1 - Tdap) 07/30/1958 ZOSTER VACCINE (1 of 2) 07/30/1989 RSV VACCINE (60+ or ) (1 - 1-dose 75+ series) 07/30/2014 COVID-19 Vaccine Completed 12/01/2023, , 04/18/2020 PNEUMOCOCCAL VACCINE 65+ YEARS Completed 12/01/2023 INFLUENZA VACCINE Completed 12/22/2023, 12/25/2021 Insurance RX [facility] [employer] [facility] [employer], [employer] Commercial RX [employer]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
== END 2024-04-03 09:08 | disposition short-term general hospital (02) ==
LOC: ANHED 00:23
PROVIDERS: Emergency Provider Emergency Medicine; PCP Family Medicine
DX: J69.0 Pneumonitis due to inhalation of food and vomit (principal); R57.9 Shock, unspecified; Z20.822 Contact with and (suspected) exposure to COVID-19; I48.91 Unspecified atrial fibrillation; I50.9 Heart failure, unspecified; I34.1 Nonrheumatic mitral (valve) prolapse; I72.3 Aneurysm of iliac artery; I71.43 Infrarenal abdominal aortic aneurysm, without rupture; I26.99 Other pulmonary embolism without acute cor pulmonale; E89.0 Postprocedural hypothyroidism; M19.90 Unspecified osteoarthritis, unspecified site; K21.9 Gastro-esophageal reflux disease without esophagitis; K44.9 Diaphragmatic hernia without obstruction or gangrene; G62.9 Polyneuropathy, unspecified; F32.A Depression, unspecified; F41.9 Anxiety disorder, unspecified; Z95.828 Presence of other vascular implants and grafts; Z96.619 Presence of unspecified artificial shoulder joint; Z86.0100 Personal history of colon polyps, unspecified; Z86.718 Personal history of other venous thrombosis and embolism; Z87.891 Personal history of nicotine dependence; Z90.79 Acquired absence of other genital organ(s); Z79.899 Other long term (current) drug therapy; Z79.01 Long term (current) use of anticoagulants; Z79.82 Long term (current) use of aspirin; I44.0 Atrioventricular block, first degree; R94.31 Abnormal electrocardiogram [ECG] [EKG]
CPT/HCPCS: 36415; 36556; 71045; 71275; 74174; 80053; 83690; 84484; 85014; 85018; 85025; 85610; 85730; 86850; 86900; 86901; 87040; 87637; 93005; 96361; 96365; 96366; 96368; 96372; 96375; 99285; A9270; C1751; J2543; J3230; J3370; J7030; J7120; Q9967

== ENCOUNTER 2024-05-05 09:23 | Emergency (ER) | payer BC, SELFPAY ==
[2024-05-05] VITALS (7 sets, daily range): BP systolic 94–133; BP diastolic 53–76; PULSE 55–80; RESP 14–16; TEMP 36.4; O2SAT 95–98
--- NOTE | ~2024-05-05 | US_ITS ---
EXAMINATION: US venous doppler [facility] DATE: 05/05/2024 11:16 INDICATION: Lower limb swelling TECHNIQUE: Grayscale ultrasound images without and with compression and Doppler ultrasound images of the bilateral lower extremity veins were obtained. COMPARISON: None. FINDINGS: The visualized portions of right common femoral vein, profunda (deep) femoral vein, femoral vein, pop liteal vein, posterior tibial veins, peroneal veins, gastrocnemius vein and proximal to mid greater s aphenous vein are patent. The visualized portions of left common femoral vein, profunda femoral vein, femoral vein, popliteal v ein, posterior tibial veins, peroneal veins, gastrocnemius vein and proximal to mid greater saphenous vein vein are patent. IMPRESSION: 1. No deep venous thrombosis in either lower limb. Reviewed, dictated and finalized at location A. ITUTION DIRECTOR
--- NOTE | ~2024-05-05 | XR_ITS ---
EXAMINATION: XR chest 2V DATE: 05/05/2024 11:41 INDICATION: Weakness TECHNIQUE: frontal and lateral views of the chest were obtained. COMPARISON: Chest radiograph and CT dated 04/03/2024 FINDINGS: Cardiomegaly with median sternotomy and prior aortic valve repair. Small left pleural effusion with a ssociated posterior basilar atelectasis and/or pneumonia. Right lung is clear. No pulmonary edema or pneumothorax. Nipple shadow projects over the anterior right sixth rib. Bilateral total shoulder arth roplasties. Additional screw at the left greater tuberosity consistent with prior rotator cuff repair .. IMPRESSION: 1. Small left pleural effusion with associated posterior basilar atelectasis and/or pneumonia. 2. Cardiomegaly. Reviewed, dictated and finalized at location A. IMPRESSION: 1. Small left pleural effusion with associated posterior basilar atelectasis an d/or pneumonia. 2. Cardiomegaly.
--- NOTE | ~2024-05-05 | US_ITS ---
EXAMINATION: US venous doppler [facility] DATE: 05/05/2024 11:16 INDICATION: Right upper limb pain and swelling TECHNIQUE: Grayscale images without and with compression and Doppler images of the right upper extrem ity veins were obtained. COMPARISON: None. FINDINGS: The right internal jugular vein, subclavian vein, axillary vein, brachial vein, basilic vein, cephali c vein, radial vein, and ulnar vein are patent. IMPRESSION: 1. Patent right upper extremity veins. No evidence of venous thrombosis. Reviewed, dictated and finalized at location A. UE MAKER
--- OUTSIDE RECORDS SUMMARY | 2024-05-05 09:30 | XMS_ITS ---
Author Organization [facility] [employer] [facility] Address [address] [facility] [address] [place] [address] Care Team Providers Care Cloth Bolt Bander Name Role Phone Henry Carli Unavailable [phone] Medications Medication SIG (Take, Route, Frequency, Duration) Notes Start Date End Date Status Mirtazapine 15 MG 1.5 tabs at bedtime Oral daily for 30 days need an appointment, no further refills until seen new provider, if you can, please DC any refills available from Lola Lew Active Social History Sex Assigned At : Social History Observation Description Sex Assigned At Male Encounters Encounter Location Date Provider Diagnosis [facility] [place] [id number] [facility] [address] [facility] [address] [place] [address] 01/28/2024 Carli Figueroa Major depressive disorder, recurrent, 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 Assessments Encounter Date Diagnosis (ICD Code) Assessment Notes Treatment Notes Treatment Clinical Notes Section Notes 01/28/2024 Major depressive disorder, recurrent, mild (ICD-10 - F33.0) Plan Of Treatment Medication Medication Name Sig Start Date Stop Date Notes Mirtazapine 15 MG 1.5 tabs at bedtime Oral daily for 30 days new provider, if you can, please DC any refills available from Lola Mcfadden Appt Details Provider Name:Carli rivas, 08/06/2024 01:00:00 PM, [address], [facility] [address], [place], [address], Progress Notes * GIAN LEEDOB:1940 (83 yo M)Acc No.[id number]:01/28/2024 Patient: GIAN PARSONS :1940 A ge:83 Y S ex:Male Address:[address] [place] [address], [place], [address] * Refills Refill Mirtazapine Tablet, 15 MG, Oral, 45, 1.5 tabs at bedtime, daily, 30 days, Refills=0 * true * Date: Generated for Candi chowdhury/Jeffrey/Darcieitting on: 0 05/05/2024 09:30 AM 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
--- OUTSIDE RECORDS SUMMARY | 2024-05-05 09:30 | XMS_ITS ---
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 Numbness and tingling of upper extremity 024 Encounter for colonoscopy du e to history of adenomatous colonic polyps 11/03/2023 Encounter for colonoscopy following colon polyp removal 11/24/2018 Overview (11/24/2018): Added automatically from request for surgery [id number] Adenomatous polyp of cecum 06/18/2018 Overview (06/18/2018): Added automatically from request for surgery [id number] nursing home current use of anticoagulant therapy 0 11/07/2016 Basal cell carcinoma (BCC) of antihelix of ear 0 04/16/2016 Ascending aortic aneurysm 09/05/2015 Deep vein thrombosis (DVT) (CMS/HCC) 06/22/2015 Pulmonary embolism 06/22/2015 Thyroid disease Neuropathy Depression Overview (07/18/2017): Depression GARCÍA on CPAP OA (osteoarthritis) History of pulmonary embolus (PE) Current Treatment and Therapy Plans No current plan information found. Past Treatment and Therapy Plans No past plan information found. Lifetime Dose Tracking * Chemical Lifetime Dose Automatic Entry Manual Entr y Fluoro Time 6.4 minutes 6.4 minutes 0 minutes Air kerma at the reference point (Ka,r) 886.7 mGy 4 4.7 mGy 842 mGy DLP 844 mGycm 844 mGycm 0 mGycm
--- OUTSIDE RECORDS SUMMARY | 2024-05-05 09:30 | XMS_ITS | Encounter Summary ---
Author Organization [facility] Healthcare Address [address] [place] [address] Care Team Providers Care Charging Board Operator Name Role Phone Martinez Pace MD Primary Care Provider Dion Abraham MD Unavailable [phone] Basil Adhikari MD Unavailable [phone] Encounter Details Date Type Department Care Team (Late st Contact Info) Description 06/11/2017 Telephone [facility] Operating Room [address] [place] [address] Sara Tipton Social History Tobacco Use Types Packs/Day Years Used Date Smoking Tobacco: Former Alcohol Use Standard Drinks/Week Comments Yes 0 (1 standard drink = 0.6 oz pur e alcohol) Sex and Gender Information Value Date Recorded Sex Assigned at Not on file Legal Sex Male 12:56 AM SPRAY MIXER Gender Identity Not on file Sexual Orientation Straight 10/21/2019 9: 52 AM CDT documented as of this encounter Plan of Treatment Not on file documented as of this encounter Visit Diagnoses Not on filedocumented in this encounter Care Teams Charging Board Operator Relationship Specialty Start Date End Date Martinez Pace MD [address] [facility] [address] [place] [address] PCP - General 05/02/16 Dion Abraham MD [address] [place] [address] Referring Physician Cardiology 02/18/24 Basil Adhikari MD [address] [facility] [address] [address] Consulting Physician Cardiothoracic Surgery 02/19/24 documented as of this encounter
--- OUTSIDE RECORDS SUMMARY | 2024-05-05 09:31 | XMS_ITS | Referral Summary ---
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 Name Role Phone Martinez Pace MD Primary Care Provider Dion Abraham MD Unavailable [phone] Basil Adhikari MD Unavailable [phone] Encounters Date Type Department Care Team Description 04/03/2024 9:45 AM VESSEL CREW MEMBER - 04/20/2024 3:00 PM VESSEL CREW MEMBER Hospital Encounter [facility] [address] [place] [address] Pedro Senior MD Martin, Robert S., MD Barks, Marissa Montenegro, Vishnu Del Castillo MD Hammes, Amanda Jane, MD Gallion, Louann Stuart MD Acute respiratory failure with hypoxia (CMS/HCC) [...] lower extremities, unspecified chronicity, unspecified vein (HCC) [I82.403]; Hyperkalemia [E87.5]; Paroxysmal atrial fibrillation (CMS/HCC) (HCC) Discharge Disposition: Discharge to an Rehab facility 04/16/2024 9:04 AM VESSEL CREW MEMBER Anesthesia Event [facility] [address] [place] [phone] Sara Schwartz MD Shelley, Joshua Michael, CRNA 04/16/2024 9:00 AM VESSEL CREW MEMBER - 04/16/2024 9:45 AM V[employer]SEL CREW MEMBER Surgery [facility] [address] [place] [phone] Roderick Bedolla MD PERCUTANEOUS ENDOSCOPIC GASTROSTOMY 04/09/2024 Orders Only [facility] [address] [place] [address] [address] [place] [address] Ev Freed NP Aneurysm of ascending aorta without rupture (HCC) (Primary Dx); Iliac aneurysm (CMS/HCC) (HCC); Aortic root aneurysm; Other pulmonary embolism without acute cor pulmonale, unspecified chronicity (HCC) 04/03/2024 Orders Only [facility] Hospitalists [address] [place] [phone] Zoran Leyva DO 03/30/2024 Orders Only [facility]ovascular [facility] Thoracic Surgery [address] [place] [address] [address] [place] [address] Candis Chaparro RN Aneurysm of ascending aorta without rupture (HCC) (Primary Dx); Iliac artery aneurysm (CMS/HCC) (HCC) 03/29/2024 Telephone [facility]ovascular and Thoracic Surgery [address] [place] [address] [address], [place] [address] Basil Adhikari MD 03/18/2024 9:05 AM VESSEL CREW MEMBER - 03/27/2024 3:13 PM V[employer]SEL CREW MEMBER Hospital Encounter [address] [address] Basil Adhikari MD Iliac aneurysm (CMS/HCC) (HCC) (Primary Dx); Aortic root aneurysm; S/P AVR Discharge Disposition: Discharge to an Rehab facility 03/22/2024 2:54 PM V[employer]SEL CREW MEMBER Anesthesia Event [facility] [address] [place] [phone] Gamal Asher MD PhD Deyvi Urrutia MD 03/22/2024 3:00 PM V[employer]SEL CREW MEMBER - 03/22/2024 5:15 PM V[employer]SEL CREW MEMBER Surgery [facility] [address] [place] [phone] Basil Adhikari MD Left internal iliac plug, left iliac aneurysm repair [13207 (CPT )] 03/18/2024 12:10 PM V[employer]SEL CREW MEMBER Ancillary Procedure [facility] Operating Room [address] [place] [phone] 03/18/2024 12:47 PM V[employer]SEL CREW MEMBER Anesthesia Event [facility] Operating Room [address] [place] [phone] Derek Marin MD PhD Gamal Asher MD PhD 03/18/2024 1:30 PM V[employer]SEL CREW MEMBER - 03/18/2024 7:50 PM V[employer]SEL CREW MEMBER Surgery [facility] Operating Room [address] [place] [phone] Basil Adhikari MD Mini ascending aortic root replacement 03/15/2024 11:50 AM VESSEL CREW MEMBER Lab [facility] Outpatient Lab [address] [place] [phone] Aneurysm of ascending aorta without rupture (HCC); Pre-op evaluation 03/15/2024 10:00 AM V[employer]SEL CREW MEMBER Office Visit [facility]ovascular [facility] Thoracic Surgery [address] [place] [address] [place] [phone] Basil Adhikari MD Pre-op evaluation (Primary Dx); Aneurysm of ascending aorta without rupture (HCC) 03/11/2024 Telephone Cardiovascular and Thoracic Surgery [address] [place] [address] [address], [place] [address] Basil 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 Cardiac Catheterization Lab [address] [place] [id number] Fredrick Peña MD Iliac aneurysm (CMS/HCC) (HCC) (Primary Dx) 02/05/2024 9:00 AM V[employer]SEL CREW MEMBER - 02/05/2024 11:59 PM VESSEL CREW MEMBER Hospital Encounter [facility] Neurology Testing [address] [place] [phone] Numbness and tingling of upper extremity [R20.0, R20.2] (Primary Dx); Hereditary and idiopathic neuropathy Discharge Disposition: Discharge to home or self care from Last 3 Months Allergies No known active allergies Medications PreviDent 5000 Booster Plus 1.1 % paste 0 Active mirtazapine (REMERON) 15 mg tablet Take 1.5 tablets (22.5 mg total) by mouth nightly 0 Active latanoprost (XALATAN) 0.005 % ophthalmic solution Administer 1 drop into the right eye nightly 2 Active cyanocobalamin, vitamin B-12, 1,000 mcg capsule Take 1 capsule by mouth daily 3 Active busPIRone (BUSPAR) 5 mg tablet Take 1 tablet (5 mg total) by mouth 2 (two) times a day 4 Active vibegron 75 mg tablet Take 75 mg by mouth daily Active trospium (SANCTURA) 20 mg tablet Take 1 tablet (20 mg total) by mouth daily Active acetaminophen 500 mg capsuleIndicatio ns:Pain Take 2 capsules (1,000 mg total) by mouth every 6 (six) hours as needed for pain 5 Active aspirin 81 mg chewable tablet Take 1 tablet (81 mg total) by mouth daily 5 026 Active amiodarone (PACERONE) 100 mg tablet Take 1 tablet (100 mg total) by mouth daily 30 tablet 1 5 026 Active apixaban (ELIQUIS) 5 mg tabletIndication s:atrial fibrillation,thr ombophilia Administer 1 tablet (5 mg total) per feeding tube every 12 (twelve) hours 60 tablet 5 Active levothyroxine (SYNTHROID) 88 mcg tablet Take 1 tablet (88 mcg total) by mouth yard switcher before breakfast 30 tablet 5 Active midodrine (PROAMATINE) 5 mg tabletIndication s:Symptomatic Orthostatic Hypotension Take 1 tablet (5 mg total) by mouth 3 (three) times a day before meals 90 tablet 5 025 Active rosuvastatin (CRESTOR) 20 mg tablet Take 1 tablet (20 mg total) by mouth daily 30 tablet 5 026 Active sodium chloride 1 gram tablet Take 1 tablet (1 g total) by mouth 2 (two) times a day 60 tablet 5 Active levothyroxine (SYNTHROID, LEVOTHROID) 75 mcg tablet Take 1 tablet (75 mcg total) by mouth daily 025 Discontin ued(Stop Taking at Discharge ) rosuvastatin (CRESTOR) 10 mg tablet Take 1 tablet (10 mg total) by mouth daily 3 025 Discontin ued(Stop Taking at Discharge ) rivaroxaban (XARELTO) 20 mg tabletIndication s:atrial fibrillation Take 1 tablet (20 mg total) by mouth daily with dinner 5 025 Discontin ued(Stop Taking at Discharge ) amiodarone (PACERONE) 200 mg tablet Take 1 tablet (200 mg total) by mouth daily 5 025 Discontin ued(Stop Taking at Discharge ) Active Problems Problem Noted Date Diagnosed Date [...] (11/24/2018): Added automatically from request for surgery [id number] Adenomatous polyp of cecum 06/18/2018 Overview (06/18/2018): Added automatically from request for surgery [id number] detention current use of anticoagulant therapy 0 11/07/2016 Basal cell carcinoma (BCC) of antihelix of ear 0 04/16/2016 Ascending aortic aneurysm 09/05/2015 Deep vein thrombosis (DVT) (CMS/HCC) 06/22/2015 Pulmonary embolism 06/22/2015 Thyroid disease Neuropathy Depression Overview (07/18/2017): Depression GARCÍA on CPAP OA (osteoarthritis) History of pulmonary embolus (PE) Immunizations Immunization Administration Dates Next Due Influenza, Unspecified 01/16/2024 Moderna SARS-CoV-2 Monovalent Vaccination (12+ Y RS) 05/30/2020,04/18/2020 Social History Tobacco Use Types Packs/Day Years Used Date Smoking Tobacco: Former Cigarettes 1 12 0 1962 - 1974 Smokeless Tobacco: Never Tobacco Cessation:Counseling Given: Not Answered Alcohol Use Standard Drinks/Week Comments Yes 3 (1 standard drink = 0.6 oz pur e alcohol) 2x a day [facility] [employer] Answer Date Recorded In the past 12 months has [employer], gas, oil, or water [facility] threatened to shut off services in your [...] often do you attend chur ch or protestant services? Never 04/06/2024 Do you belong to any clubs o r organizations such as restorationism groups, unions, fraternal or athletic groups, or [...] [facility], were you homeless or living in a penitentiary (including now)? No 04/06/2024 Personal Safety Answer Date Recorded Have you ever been in or are you currently in a harmful physical or emotional relationship or is someone making you feel afraid or unsafe? Denies 04/03/2024 Sex and Gender Information Value Date Recorded Sex Assigned at Not on file Legal Sex Male 12:56 AM VESSEL CREW MEMBER Gender Identity Not on file Sexual Orientation Straight 10/21/2019 9: 52 AM CDT Last Filed Vital Signs Vital Sign Reading Time Taken Comments Blood Pressure 96/54 04/20/2024 12:33 PM VESSEL CREW MEMBER Pulse 63 04/20/2024 12:33 PM VESSEL CREW MEMBER Temperature 36.1 C (97 F) 04/20/2024 12:33 PM VESSEL CREW MEMBER Respiratory Rate 16 04/20/2024 12:33 PM VESSEL CREW MEMBER Oxygen Saturation 98% 04/20/2024 12:33 PM VESSEL CREW MEMBER Inhaled Oxygen Concentration - - Weight 66.9 kg (147 lb 7.8 oz) 04/19/2024 8:12 A M VESSEL CREW MEMBER Height 172.7 cm (5' 8 ) 04/16/2024 8:23 AM VESSEL CREW MEMBER Body Mass Index 22.43 04/16/2024 8:23 AM VESSEL CREW MEMBER Plan of Treatment Not on file Medical Devices Implanted Type Area Studio Assistant Device Identifier Shelf Expiration Date Model / Serial / Lot Leyva [employer] Konect Resilia Aortic Valved Conduit 27mm [id number] - [id number] - [id number] Implanted:Qty: 1 on 03/18/2024 by Basil Adhikari MD at [facility] Prosthetic Valve N/A: Aortic Valve [employer] 01/06/2027 [id number] / [id number] / Teleflex [employer] Inc 18f Manta Vascular Closure Device 2114 - S0 - [id number] Implanted:Qty: 1 on 03/22/2024 by Basil Adhikari MD at [facility] Vascular Closure Device Teleflex [employer] Inc 01/06/20252114 / 0 / [id number] Cement Bone Cmw 2 20 Gm Fast Set Sterile - [id number] Implanted:Qty: 1 on 2017 by Brennon Davis MD at [facility] Right: Shoulder Depuy [employer]ed[employer] Inc 10/15/2019 [id number] 0 / / [id number] Component Glenoid Comprehensive Regenerex Titanium Clay Porous Shoulder Modular Hybrid Post - [id number] Implanted:Qty: 1 on 2017 by Brennon Davis MD at [facility] Right: Shoulder Kavita [employer] Inc [id number] 01/21/2027 PT-1139 50 / / [id number] Component Glenoid Comprehensive Hybrid Large H4 Mm Shoulder Base Modular - [id number] Implanted:Qty: 1 on 2017 by Brennon Davis MD at [facility] Right: Shoulder [employer] [id number] 03/23/2022 [id number] / / [id number] Stem Humeral Comprehensive Porous Mini L83 Mm Od15 Mm Shoulder Reverse System - [id number] Implanted:Qty: 1 on 2017 by Brennon Davis MD at [facility] Right: Shoulder [employer] [id number] 04/10/2027 [id number] / / [id number] Head Humeral Bio-Modular [place] 4 Mm Offset H22 Mm Od54 Mm Shoulder Sterile - [id number] Implanted:Qty: 1 on 2017 by Brennon Davis MD at [facility] Right: Shoulder [employer] 08/16/2019 [id number] / / [id number] Cryolife Inc Graft Biological Cardiovascular Photofix 6x8cm Acellular Dermis Pfp 6x8 - [id number] Implanted:Qty: 1 on 03/18/2024 by Basil Adhikari MD at [facility] N/A: Aorta Cryolife Inc 10/24/2025 PFP 6X8 / / [id number] Arthrex Inc Device Closure Tigertape Sternal Cerclage Blunt Needle Ar-7289t - [id number] Implanted:Qty: 1 on 03/18/2024 by Basil Adhikari MD at [facility] N/A: Sternum Arthrex Inc 12/14/2028 AR-7289 T / / [id number] 2 Arthrex Inc Device Closure Tigertape Sternal Cerclage Blunt Needle Ar-7289t - [id number] Implanted:Qty: 1 on 03/18/2024 by Basil Adhikari MD at [facility] N/A: Sternum Arthrex Inc 12/14/2028 AR-7289 T / / [id number] Estrada Vascular Plug Occluder Cvasc Embl Self Expanding Amplatzer [id number] Nitinol 9-Avp2-014 - S0 - [id number] Implanted:Qty: 1 on 03/22/2024 by Basil Adhikari MD at [facility] Left: Internal Iliac (Hypogastr ic) Artery Estrada Vascular [id number] 05/14/2025 9-AVP2- 014 / 0 / [id number] [employer] Excluder 18mm 14.5-16.5mm 11.5cm Stent Abrasion Resistant [id number] - [id number] - [id number] Implanted:Qty: 1 on 03/22/2024 by Basil Adhikari MD at [facility] Left: External Iliac Artery [employer] [id number] 11/17/2026 [id number] / [id number] / [employer] Stent Graft Thoracic Conformable Tag [id number] - S0 - [id number] Implanted:Qty: 1 on 03/22/2024 by Basil Adhikari MD at [facility] Left: External Iliac Artery [employer] [id number] 08/14/2026 [id number] 10 / 0 / Amplatzer Rn Anesthesiology Lisa Amplatzer 14mm 100cm 8mm 1 Layer Wire Mesh 1 Lobe Design Optimal 9-Plug-014 - S0 - [id number] Implanted:Qty: 1 on 03/22/2024 by Basil Adhikari MD at [facility] Left: Internal Iliac (Hypogastr ic) Artery Amplatzer Rn Anesthesiology Lisa 03/16/2028 9-PLUG- 014 / 0 / [id number] Procedures Procedure Name Priority Date/Time Associated Diagnosis Comments EGFR Routine 04/20/2024 12:20 AM VESSEL CREW MEMBER MAGNESIUM Routine 04/20/2024 12:20 AM VESSEL CREW MEMBER RENAL FUNCTION PANEL Routine 04/20/2024 12:20 AM VESSEL CREW MEMBER EGFR Routine 04/19/2024 12:41 AM VESSEL CREW MEMBER MAGNESIUM Routine 04/19/2024 12:41 AM VESSEL CREW MEMBER RENAL FUNCTION PANEL Routine 04/19/2024 12:41 AM VESSEL CREW MEMBER ECG 12-LEAD Routine 04/18/2024 10:45 AM VESSEL CREW MEMBER ECG 12-LEAD STAT 04/18/2024 7:41 AM VESSEL CREW MEMBER ECG 12-LEAD STAT 04/18/2024 3:01 AM VESSEL CREW MEMBER EGFR Routine 04/18/2024 12:24 AM VESSEL CREW MEMBER MAGNESIUM Routine 04/18/2024 12:24 AM VESSEL CREW MEMBER RENAL FUNCTION PANEL Routine 04/18/2024 12:24 AM VESSEL CREW MEMBER PERCUTANEOUS ENDOSCOPIC GASTROSTOMY 04/16/2024 9:04 AM VESSEL CREW MEMBER Dysphagia, unspecified type EGD 04/16/2024 7:56 AM VESSEL CREW MEMBER EGFR Routine 04/15/2024 12:25 AM VESSEL CREW MEMBER PROTIME-INR Routine 04/15/2024 12:25 AM VESSEL CREW MEMBER RENAL FUNCTION PANEL Routine 04/15/2024 12:25 AM VESSEL CREW MEMBER POCT GLUCOSE DEVICE Routine 04/13/2024 1 0:44 PM VESSEL CREW MEMBER FL MODIFIED BARIUM SWALLOW W VIDEO IP Routine 04/13/2024 2:06 PM VESSEL CREW MEMBER EGFR Routine 04/12/2024 1:38 AM VESSEL CREW MEMBER DIFFERENTIAL AUTO Routine 04/12/2024 1:3 8 AM VESSEL CREW MEMBER MAGNESIUM Routine 04/12/2024 1:38 AM VESSEL CREW MEMBER CBC WITH AUTO DIFFERENTIAL Routine 04/12/2024 1:38 AM VESSEL CREW MEMBER RENAL FUNCTION PANEL Routine 04/12/2024 1:38 AM VESSEL CREW MEMBER EGFR Routine 04/10/2024 12:21 AM VESSEL CREW MEMBER CBC WITHOUT DIFFERENTIAL Routine 04/10/2024 12:21 AM VESSEL CREW MEMBER MAGNESIUM Routine 04/10/2024 12:21 AM VESSEL CREW MEMBER RENAL FUNCTION PANEL Routine 04/10/2024 12:21 AM VESSEL CREW MEMBER EGFR Routine 04/09/2024 12:26 AM VESSEL CREW MEMBER CBC WITHOUT DIFFERENTIAL Routine 04/09/2024 12:26 AM VESSEL CREW MEMBER MAGNESIUM Routine 04/09/2024 12:26 AM VESSEL CREW MEMBER RENAL FUNCTION PANEL Routine 04/09/2024 12:26 AM VESSEL CREW MEMBER US CAROTIDS DUPLEX BILATERAL IP Routine 04/08/2024 5:50 PM VESSEL CREW MEMBER EGFR Routine 04/08/2024 12:52 AM VESSEL CREW MEMBER DIFFERENTIAL AUTO Routine 04/08/2024 12: 52 AM VESSEL CREW MEMBER MAGNESIUM Routine 04/08/2024 12:52 AM VESSEL CREW MEMBER RENAL FUNCTION PANEL Routine 04/08/2024 12:52 AM VESSEL CREW MEMBER CBC WITH AUTO DIFFERENTIAL Routine 04/08/2024 12:52 AM VESSEL CREW MEMBER MRI BRAIN WO CONTRAST IP Routine 04/08/2024 12:24 AM VESSEL CREW MEMBER EGFR Routine 04/07/2024 12:51 AM VESSEL CREW MEMBER DIFFERENTIAL AUTO Routine 04/07/2024 12: 51 AM VESSEL CREW MEMBER RENAL FUNCTION PANEL Routine 04/07/2024 12:51 AM VESSEL CREW MEMBER CBC WITH AUTO DIFFERENTIAL Routine 04/07/2024 12:51 AM VESSEL CREW MEMBER HEMOGLOBIN AND HEMATOCRIT Timed 04/06/2024 5:18 PM VESSEL CREW MEMBER XR CHEST 1 VIEW IP Routine 04/06/2024 5:06 AM VESSEL CREW MEMBER ADD ON LAB TEST Add-On 04/06/2024 3:29 AM VESSEL CREW MEMBER RENAL FUNCTION PANEL Routine 04/06/2024 2:29 AM VESSEL CREW MEMBER EGFR Routine 04/06/2024 2:29 AM VESSEL CREW MEMBER DIFFERENTIAL AUTO Routine 04/06/2024 2:2 9 AM VESSEL CREW MEMBER CBC WITH AUTO DIFFERENTIAL Routine 04/06/2024 2:29 AM VESSEL CREW MEMBER PROCALCITONIN Routine 04/06/2024 2:29 AM VESSEL CREW MEMBER BLOOD GAS, VENOUS Routine 04/06/2024 2:1 5 AM VESSEL CREW MEMBER POCT GLUCOSE DEVICE Routine 04/05/2024 1 2:05 PM VESSEL CREW MEMBER XR KUB ED Urgent/IP Urgent 04/05/2024 10:23 AM VESSEL CREW MEMBER FL MODIFIED BARIUM SWALLOW W VIDEO IP Routine 04/05/2024 9:52 AM VESSEL CREW MEMBER POCT GLUCOSE DEVICE Routine 04/05/2024 4 :30 AM VESSEL CREW MEMBER MAGNESIUM Routine 04/05/2024 3:39 AM VESSEL CREW MEMBER EGFR Routine 04/05/2024 3:39 AM VESSEL CREW MEMBER CBC WITHOUT DIFFERENTIAL Routine 04/05/2024 3:39 AM VESSEL CREW MEMBER RENAL FUNCTION PANEL Routine 04/05/2024 3:39 AM VESSEL CREW MEMBER EGFR STAT 04/04/2024 4:18 PM VESSEL CREW MEMBER RENAL FUNCTION PANEL STAT 04/04/2024 4:18 PM VESSEL CREW MEMBER OSMOLALITY, URINE Routine 04/04/2024 6:1 1 AM VESSEL CREW MEMBER CREATININE, URINE, RANDOM Routine 04/04/2024 6:11 AM VESSEL CREW MEMBER SODIUM, URINE, RANDOM Routine 04/04/2024 6:11 AM VESSEL CREW MEMBER EGFR Routine 04/04/2024 2:56 AM VESSEL CREW MEMBER RENAL FUNCTION PANEL Routine 04/04/2024 2:56 AM VESSEL CREW MEMBER TSH Routine 04/04/2024 2:56 AM VESSEL CREW MEMBER CBC WITHOUT DIFFERENTIAL Routine 04/04/2024 2:56 AM VESSEL CREW MEMBER EGFR Timed 04/03/2024 5:59 PM VESSEL CREW MEMBER RENAL FUNCTION PANEL Timed 04/03/2024 5:59 PM VESSEL CREW MEMBER MRSA ONLY (STAPHYLOCOCCUS AUREUS) PCR Routine 04/03/2024 3:55 PM VESSEL CREW MEMBER AEROBIC CULTURE AND GRAM STAIN Routine 04/03/2024 3:55 PM VESSEL CREW MEMBER ADD ON LAB TEST Add-On 04/03/2024 2:48 PM VESSEL CREW MEMBER ADD ON LAB TEST Add-On 04/03/2024 2:48 PM VESSEL CREW MEMBER ADD ON LAB TEST Add-On 04/03/2024 2:48 PM VESSEL CREW MEMBER ADD ON LAB TEST Add-On 04/03/2024 2:48 PM VESSEL CREW MEMBER TRANSTHORACIC ECHO (TTE) COMPLETE W DOPPLER/CF WO CONTRAST STAT 04/03/2024 2:46 PM VESSEL CREW MEMBER URIC ACID STAT 04/03/2024 11:06 AM VESSEL CREW MEMBER T4, FREE STAT 04/03/2024 11:06 AM VESSEL CREW MEMBER THYROID FUNCTION CASCADE STAT 04/03/2024 11:06 AM VESSEL CREW MEMBER CORTISOL STAT 04/03/2024 11:06 AM VESSEL CREW MEMBER OSMOLALITY, URINE Routine 04/03/2024 11: 06 AM VESSEL CREW MEMBER SODIUM, URINE, RANDOM Routine 04/03/2024 11:06 AM VESSEL CREW MEMBER EGFR STAT 04/03/2024 11:06 AM VESSEL CREW MEMBER URINALYSIS, MICROSCOPIC ONLY Routine 04/03/2024 11:06 AM VESSEL CREW MEMBER BILIRUBIN, DIRECT STAT 04/03/2024 11: 06 AM VESSEL CREW MEMBER CBC WITHOUT DIFFERENTIAL STAT 04/03/2024 11:06 AM VESSEL CREW MEMBER PROTIME-INR STAT 04/03/2024 11:06 AM VESSEL CREW MEMBER APTT STAT 04/03/2024 11:06 AM VESSEL CREW MEMBER PRO B-TYPE NATRIURETIC PEPTIDE STAT 04/03/2024 11:06 AM VESSEL CREW MEMBER LACTATE STAT 04/03/2024 11:06 AM VESSEL CREW MEMBER PHOSPHORUS STAT 04/03/2024 11:06 AM VESSEL CREW MEMBER MAGNESIUM STAT 04/03/2024 11:06 AM VESSEL CREW MEMBER COMPREHENSIVE METABOLIC PANEL STAT 04/03/2024 11:06 AM VESSEL CREW MEMBER TYPE AND SCREEN STAT 04/03/2024 11:06 AM VESSEL CREW MEMBER STREP PNEUMONIAE AG, URINE Routine 04/03/2024 11:06 AM VESSEL CREW MEMBER LEGIONELLA ANTIGEN, URINE Routine 04/03/2024 11:06 AM VESSEL CREW MEMBER URINALYSIS AND REFLEX TO MICROSCOPIC AND CULTURE Routine 04/03/2024 11:06 AM VESSEL CREW MEMBER XR CHEST 1 VIEW Critical/Life-T hreatening 04/03/2024 10:23 AM VESSEL CREW MEMBER XR CHEST 1 VIEW IP Routine 03/27/2024 6:38 AM VESSEL CREW MEMBER EGFR Routine 03/27/2024 12:27 AM VESSEL CREW MEMBER MAGNESIUM Routine 03/27/2024 12:27 AM VESSEL CREW MEMBER RENAL FUNCTION PANEL Routine 03/27/2024 12:27 AM VESSEL CREW MEMBER CBC WITHOUT DIFFERENTIAL Routine 03/27/2024 12:27 AM VESSEL CREW MEMBER URINALYSIS, MICROSCOPIC ONLY Routine 03/26/2024 11:53 AM VESSEL CREW MEMBER URINALYSIS AND REFLEX TO MICROSCOPIC AND CULTURE Routine 03/26/2024 11:53 AM VESSEL CREW MEMBER XR CHEST 1 VIEW IP Routine 03/26/2024 6:06 AM VESSEL CREW MEMBER EGFR Routine 03/26/2024 12:27 AM VESSEL CREW MEMBER MAGNESIUM Routine 03/26/2024 12:27 AM VESSEL CREW MEMBER RENAL FUNCTION PANEL Routine 03/26/2024 12:27 AM VESSEL CREW MEMBER CBC WITHOUT DIFFERENTIAL Routine 03/26/2024 12:27 AM VESSEL CREW MEMBER XR CHEST 1 VIEW IP Routine 03/25/2024 5:49 AM VESSEL CREW MEMBER EGFR Routine 03/25/2024 1:33 AM VESSEL CREW MEMBER MAGNESIUM Routine 03/25/2024 1:33 AM VESSEL CREW MEMBER RENAL FUNCTION PANEL Routine 03/25/2024 1:33 AM VESSEL CREW MEMBER CBC WITHOUT DIFFERENTIAL Routine 03/25/2024 1:33 AM VESSEL CREW MEMBER TYPE AND SCREEN Timed 03/25/2024 1:33 AM VESSEL CREW MEMBER XR CHEST 1 VIEW IP Routine 03/24/2024 8:05 AM VESSEL CREW MEMBER EGFR Routine 03/24/2024 2:16 AM VESSEL CREW MEMBER MAGNESIUM Routine 03/24/2024 2:16 AM VESSEL CREW MEMBER RENAL FUNCTION PANEL Routine 03/24/2024 2:16 AM VESSEL CREW MEMBER CBC WITHOUT DIFFERENTIAL Routine 03/24/2024 2:16 AM VESSEL CREW MEMBER XR CHEST 1 VIEW IP Routine 03/23/2024 6:41 AM VESSEL CREW MEMBER CRITICAL CARE Routine 03/23/2024 6:36 AM VESSEL CREW MEMBER Iliac aneurysm (CMS/HCC) (HCC) EGFR Routine 03/23/2024 1:16 AM VESSEL CREW MEMBER CALCIUM, IONIZED Routine 03/23/2024 1:16 AM VESSEL CREW MEMBER PROTIME-INR Routine 03/23/2024 1:16 AM VESSEL CREW MEMBER MAGNESIUM Routine 03/23/2024 1:16 AM VESSEL CREW MEMBER RENAL FUNCTION PANEL Routine 03/23/2024 1:16 AM VESSEL CREW MEMBER CBC WITHOUT DIFFERENTIAL Routine 03/23/2024 1:16 AM VESSEL CREW MEMBER CRITICAL CARE Routine 03/22/2024 8:16 PM VESSEL CREW MEMBER 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 Routine 03/22/2024 6 :38 PM VESSEL CREW MEMBER EGFR STAT 03/22/2024 6:30 PM VESSEL CREW MEMBER CALCIUM, IONIZED STAT 03/22/2024 6:30 PM VESSEL CREW MEMBER MAGNESIUM STAT 03/22/2024 6:30 PM VESSEL CREW MEMBER RENAL FUNCTION PANEL STAT 03/22/2024 6:30 PM VESSEL CREW MEMBER PROTIME-INR STAT 03/22/2024 6:30 PM VESSEL CREW MEMBER APTT STAT 03/22/2024 6:30 PM VESSEL CREW MEMBER CBC WITHOUT DIFFERENTIAL STAT 03/22/2024 6:30 PM VESSEL CREW MEMBER CRITICAL CARE Routine 03/22/2024 5:43 PM VESSEL CREW MEMBER Iliac aneurysm (CMS/HCC) (HCC) REVAS ENDOVASILIAC W STNT [id number] Routine 03/22/2024 4:52 PM VESSEL CREW MEMBER Iliac aneurysm (CMS/HCC) (HCC) POCT ACTIVATED CLOTTING TIME, HIGH RANGE Routine 03/22/2024 4:51 PM VESSEL CREW MEMBER POC BLOOD GAS AND CHEMISTRIES, VENOUS Routine 03/22/2024 4:29 PM VESSEL CREW MEMBER POCT ACTIVATED CLOTTING TIME, HIGH RANGE Routine 03/22/2024 4:10 PM VESSEL CREW MEMBER POCT ACTIVATED CLOTTING TIME, HIGH RANGE Routine 03/22/2024 4:00 PM VESSEL CREW MEMBER POCT ACTIVATED CLOTTING TIME, HIGH RANGE Routine 03/22/2024 3:56 PM VESSEL CREW MEMBER POCT ACTIVATED CLOTTING TIME, HIGH RANGE Routine 03/22/2024 3:28 PM VESSEL CREW MEMBER POCT ACTIVATED CLOTTING TIME, LOW RANGE Routine 03/22/2024 3:21 PM VESSEL CREW MEMBER NJ AN PROCEDURE PLACEHOLDER Routine 03/22/2024 3:08 PM VESSEL CREW MEMBER NJ AN ELECTIVE ENDOTRACHEAL AIRWAY Routine 03/22/2024 3:08 PM VESSEL CREW MEMBER PREPARE RBC STAT 03/22/2024 2:42 PM VESSEL CREW MEMBER XR CHEST 1 VIEW IP Routine 03/22/2024 7:26 AM VESSEL CREW MEMBER EGFR Routine 03/22/2024 1:34 AM [employer] MAGNESIUM Routine 03/22/2024 1:34 AM [employer] RENAL FUNCTION PANEL Routine 03/22/2024 1:34 AM [employer] CBC WITHOUT DIFFERENTIAL Routine 03/22/2024 1:34 AM [employer] TYPE AND SCREEN Timed 03/22/2024 1:34 AM [employer] APTT STAT 03/21/2024 8:12 PM [employer] APTT STAT 03/21/2024 12:40 PM [employer] APTT Timed 03/21/2024 10:35 AM [employer] XR CHEST 1 VIEW IP Routine 03/21/2024 7:43 AM [employer] APTT STAT 03/21/2024 2:27 AM [employer] EGFR Routine 03/21/2024 2:24 AM [employer] MAGNESIUM Routine 03/21/2024 2:24 AM [employer] RENAL FUNCTION PANEL Routine 03/21/2024 2:24 AM [employer] CBC WITHOUT DIFFERENTIAL Routine 03/21/2024 2:24 AM [employer] APTT STAT 03/20/2024 4:57 PM [employer] APTT STAT 03/20/2024 9:27 AM [employer] PROTIME-INR STAT 03/20/2024 9:27 AM [employer] XR CHEST 1 VIEW IP Routine 03/20/2024 9:17 AM [employer] EGFR Routine 03/20/2024 1:03 AM [employer] MAGNESIUM Routine 03/20/2024 1:03 AM [employer] CALCIUM, IONIZED Routine 03/20/2024 1:03 AM [employer] RENAL FUNCTION PANEL Routine 03/20/2024 1:03 AM [employer] CBC WITHOUT DIFFERENTIAL Routine 03/20/2024 1:03 AM [employer] PREPARE RBC STAT 03/19/2024 4:56 PM [employer] CTA ABDOMEN PELVIS W WO CONTRAST IP Routine 03/19/2024 9:06 AM [employer] POTASSIUM LEVEL STAT 03/19/2024 6:48 AM [employer] CRITICAL CARE Routine 03/19/2024 6:40 AM [employer] 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 IP Routine 03/19/2024 6:37 AM [employer] POCT GLUCOSE DEVICE Routine 03/19/2024 6 :01 AM [employer] POCT GLUCOSE DEVICE Routine 03/19/2024 2 :13 AM [employer] POCT GLUCOSE DEVICE Routine 03/19/2024 1 2:18 AM [employer] EGFR Routine 03/19/2024 12:04 AM [employer] MAGNESIUM Routine 03/19/2024 12:04 AM [employer] CALCIUM, IONIZED Routine 03/19/2024 12:0 4 AM [employer] RENAL FUNCTION PANEL Routine 03/19/2024 12:04 AM [employer] CBC WITHOUT DIFFERENTIAL Routine 03/19/2024 12:04 AM [employer] POCT GLUCOSE DEVICE Routine 03/18/2024 9 :02 PM [employer] EXTUBATION Routine 03/18/2024 7:38 PM [employer] BLOOD GAS, ARTERIAL STAT 03/18/2024 7 :23 PM [employer] POCT GLUCOSE DEVICE Routine 03/18/2024 7 :12 PM [employer] CRITICAL CARE Routine 03/18/2024 6:39 PM [employer] 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 Routine 03/18/2024 6 :07 PM [employer] XR CHEST 1 VIEW ED Urgent/IP Urgent 03/18/2024 4:41 PM [employer] POCT GLUCOSE DEVICE Routine 03/18/2024 4 :27 PM [employer] CRITICAL CARE Routine 03/18/2024 4:19 PM [employer] EGFR STAT 03/18/2024 4:17 PM [employer] APTT STAT 03/18/2024 4:17 PM [employer] PROTIME-INR STAT 03/18/2024 4:17 PM [employer] CBC WITHOUT DIFFERENTIAL STAT 03/18/2024 4:17 PM [employer] BLOOD GAS, ARTERIAL STAT 03/18/2024 4 :17 PM [employer] CALCIUM, IONIZED STAT 03/18/2024 4:17 PM [employer] MAGNESIUM STAT 03/18/2024 4:17 PM [employer] BASIC METABOLIC PANEL STAT 03/18/2024 4:17 PM [employer] PHOSPHORUS STAT 03/18/2024 4:17 PM [employer] PROTIME-INR STAT 03/18/2024 3:38 PM [employer] FIBRINOGEN STAT 03/18/2024 3:38 PM [employer] CBC WITHOUT DIFFERENTIAL STAT 03/18/2024 3:38 PM [employer] APTT STAT 03/18/2024 3:38 PM [employer] POC BLOOD GAS AND CHEMISTRIES, ARTERIAL Routine 03/18/2024 3:35 PM [employer] POCT ACTIVATED CLOTTING TIME, HIGH RANGE Routine 03/18/2024 3:35 PM [employer] POC BLOOD GAS AND CHEMISTRIES, ARTERIAL Routine 03/18/2024 2:41 PM [employer]BER POCT ACTIVATED CLOTTING TIME, HIGH RANGE Routine 03/18/2024 2:40 PM [employer] POC BLOOD GAS AND CHEMISTRIES, VENOUS Routine 03/18/2024 2:30 PM [employer] SURGICAL PATHOLOGY Routine 03/18/2024 2: 09 PM [employer] Aortic root aneurysm POC BLOOD GAS AND CHEMISTRIES, ARTERIAL Routine 03/18/2024 2:08 PM [employer] POCT ACTIVATED CLOTTING TIME, HIGH RANGE Routine 03/18/2024 2:08 PM [employer]BER POC BLOOD GAS AND CHEMISTRIES, ARTERIAL Routine 03/18/2024 1:50 PM [employer]BER POCT ACTIVATED CLOTTING TIME, HIGH RANGE Routine 03/18/2024 1:49 PM [employer]BER NJ AN PROCEDURE PLACEHOLDER Routine 03/18/2024 1:41 PM [employer] PULMONARY ARTERY CATH Routine 03/18/2024 1:41 PM [employer] BW AN SHEATH INTRODUCER PERFORMABLE Routine 03/18/2024 1:41 PM [employer] NJ AN PROCEDURE PLACEHOLDER Routine 03/18/2024 1:40 PM [employer]BER NJ AN CENTRAL LINE QUADRUPLE LUMEN Routine 03/18/2024 1:40 PM [employer]BER NJ AN PROCEDURE PLACEHOLDER Routine 03/18/2024 1:39 PM [employer]BER NJ AN PROCEDURE PLACEHOLDER Routine 03/18/2024 1:38 PM [employer]BER NJ AN PROCEDURE PLACEHOLDER Routine 03/18/2024 1:37 PM [employer]BER NJ AN ELECTIVE ENDOTRACHEAL AIRWAY Routine 03/18/2024 1:37 PM [employer]BER NJ AN PROCEDURE PLACEHOLDER Routine 03/18/2024 1:29 PM [employer]BER POCT ACTIVATED CLOTTING TIME, HIGH RANGE Routine 03/18/2024 1:11 PM [employer] REPLACEMENT AORTIC ROOT 03/18/2024 12:46 PM [employer] Aortic root aneurysm LIDIA ADD-ON FOR OR Routine 03/18/2024 12: 05 PM [employer] B CHECK SAMPLE STAT 03/18/2024 9:54 AM [employer] ECG 12-LEAD Routine 03/18/2024 9:34 AM [employer] PREPARE RBC STAT 03/18/2024 9:12 AM [employer] DIFFERENTIAL AUTO Routine 03/15/2024 12: 29 PM [employer] Aneurysm of ascending aorta without rupture (HCC) Pre-op evaluation HEMOGLOBIN A1C Routine 03/15/2024 12:29 PM [employer] Aneurysm of ascending aorta without rupture (HCC) Pre-op evaluation CBC WITH AUTO DIFFERENTIAL Routine 03/15/2024 12:29 PM [employer] Aneurysm of ascending aorta without rupture (HCC) Pre-op evaluation TYPE AND SCREEN Routine 03/15/2024 12:29 PM [employer] Aneurysm of ascending aorta without rupture (HCC) Pre-op evaluation EGFR Routine 03/15/2024 12:28 PM [employer] Aneurysm of ascending aorta without rupture (HCC) Pre-op evaluation COMPREHENSIVE METABOLIC PANEL Routine 03/15/2024 12:28 PM [employer] Aneurysm of ascending aorta without rupture (HCC) Pre-op evaluation EMG/NCV Routine 02/05/2024 11:10 AM [employer] Hereditary and idiopathic neuropathy from Last 3 Months Results * eGFR (04/20/2024 12:20 AM [employer]) eGFR 71 >=60 mL/min/1. 73 m2 Comment: Interpretive Data Reference Interval Normal >/= 90 mL/min/1.73m2 Mildly decreased* 60 - 89 mL/min/1.73m2 Mildly to moderately decreased 45 - 59 mL/min/1.73m2 Moderately to severely decreased 30 - 44 mL/min/1.73m2 Severely decreased 15 - 29 mL/min/1.73m2 Kidney Failure < 15 mL/min/1.73m2 *Relative to young adult level Estimated glomerular [...] interpretive data was last reviewed 2021. Blood 04/20/2024 12:2 0 AM [employer]BER 04/20/2024 12:48 AM [employer]BER us Louann Conti MD LAB BLOOD ORDERABLES F inal Result Performing Organization Address City/[facility]/ZIP Co de Phone Number [facility] [address] [place] [address] * Magnesium (04/20/2024 12:20 AM V[employer] MEMBER) [facility] Magnesium 2.2 1.4 - 2.5 mg/dL Blood 04/20/2024 12:2 0 AM [employer]BER 04/20/2024 12:48 AM [employer]BER Louann Conti MD LAB BLOOD ORDERABLES F inal Result Performing Organization Address [facility] Co de Phone Number [facility] [address] Department [place] [address] * (ABNORMAL) Renal function panel (04/20/2024 12:20 AM [employer]BER) [facility] Sodium 138 135 - 145 mmol/L Potassium, pl 4.3 3.3 - 4.9 mmol/L [facility] Chloride 102 97 - 110 mmol/L [facility] CO2 26 22 - 32 mmol/L [facility] Anion gap 10 2 - 15 mmol/L [facility] BUN 26(H) 6 - 25 mg/dL [facility] Creatinine 1.04 0.80 - 1.30 mg/dL [facility] Glucose 119 70 - 199 mg/dL [facility] Comment: Interpretive Data Fasting glucose >/= 126 mg/dl is diagnostic for diabetes. Fasting is defined as no caloric intake [...] 2022. Calcium 8.5 8.5 - 10.3 mg/dL [facility] Phosphorus, pl 2.9 2.3 - 4.5 mg/dL [facility] Albumin 3.5 3.5 - 5.0 g/dL [facility] Blood 04/20/2024 12:2 0 AM [employer]BER 04/20/2024 12:48 AM [employer]BER Louann Conti MD LAB BLOOD ORDERABLES F inal Result Performing Organization Address City/[facility]/ZIP Co de Phone Number [facility] [address] [place] [address] * eGFR (04/19/2024 12:41 AM [employer]) eGFR 72 >=60 mL/min/1. 73 m2 Comment: Interpretive Data Reference Interval Normal >/= 90 mL/min/1.73m2 Mildly decreased* 60 - 89 mL/min/1.73m2 Mildly to moderately decreased 45 - 59 mL/min/1.73m2 Moderately to severely decreased 30 - 44 mL/min/1.73m2 Severely decreased 15 - 29 mL/min/1.73m2 Kidney Failure < 15 mL/min/1.73m2 *Relative to young adult level Estimated glomerular [...] interpretive data was last reviewed 2021. Blood 04/19/2024 12:4 1 AM [employer]BER 04/19/2024 12:56 AM [employer]BER us Louann Conti MD LAB BLOOD ORDERABLES F inal Result Performing Organization Address City/[facility]/ZIP Co de Phone Number [facility] [address] [place] [address] * Magnesium (04/19/2024 12:41 AM [employer]BER) Magnesium 2.3 1.4 - 2.5 mg/dL Blood 04/19/2024 12:4 1 AM [employer]BER 04/19/2024 12:56 AM [employer]BER Louann Conti MD LAB BLOOD ORDERABLES F inal Result [facility] [address] Department [place] [address] * (ABNORMAL) Renal function panel (04/19/2024 12:41 AM [employer]BER) Sodium 138 135 - 145 mmol/L Potassium, pl 4.6 3.3 - 4.9 mmol/L [facility] Chloride 103 97 - 110 mmol/L [facility] CO2 26 22 - 32 mmol/L [facility] Anion gap 9 2 - 15 mmol/L [facility] BUN 31(H) 6 - 25 mg/dL [facility] Creatinine 1.02 0.80 - 1.30 mg/dL [facility] Glucose 97 70 - 199 mg/dL [facility] Comment: Interpretive Data Fasting glucose >/= 126 mg/dl is diagnostic for diabetes. Fasting is defined as no caloric intake [...] 2022. Calcium 8.6 8.5 - 10.3 mg/dL [facility] Phosphorus, pl 3.0 2.3 - 4.5 mg/dL [facility] Albumin 3.5 3.5 - 5.0 g/dL [facility] Blood 04/19/2024 12:4 1 AM [employer]BER 04/19/2024 12:56 AM [employer]BER Louann Conti MD LAB BLOOD ORDERABLES F inal Result Performing Organization Address City/[facility] Co de Phone Number [facility] [address] Department [place] [address] * ECG 12 lead (04/18/2024 10:45 AM [employer]BER) 04/18/2024 10:4 5 AM [employer]BER Narrative [facility] - 04/18/2024 1:35 PM V[employer]BER Vent Rate: 66 bpm RR Interval: 897 msec [place] Interval: 0 msec QRS Duration: 91 msec QT Interval: 251 msec QTC Interval: 265 msec P-R-T [place]: 0 - 12 - 0 degrees IMPRESSION: ATRIAL FIBRILLATION NONSPECIFIC ST \T\ T-WAVE ABNORMALITY ABNORMAL RHYTHM ECG Electronically Signed By: Klaus Humphrey MD PhD us Klaus Humphrey MD PhD ECG ORDERABLES Final Result Performing Organization Address [facility] de Phone Number [facility] * ECG 12 lead (04/18/2024 7:41 AM V[employer] MEMBER) 04/18/2024 7:41 AM [employer]BER Narrative [facility] - 04/18/2024 7:53 AM [employer]BER Vent Rate: 65 bpm RR Interval: 921 msec [place] Interval: 0 msec QRS Duration: 101 msec QT Interval: 442 msec QTC Interval: 453 msec P-R-T [place]: 0 - 2 - 10 degrees IMPRESSION: ATRIAL FIBRILLATION NONSPECIFIC T-WAVE ABNORMALITY ABNORMAL RHYTHM ECG Electronically Signed By: Klaus Humphrey MD PhD us Louann Conti MD ECG ORDERABLES Final Result Performing Organization Address [facility] Co de Phone Number [facility] * ECG 12 lead (04/18/2024 3:01 AM V[employer] MEMBER) 04/18/2024 3:01 AM [employer]BER Narrative [facility] - 04/18/2024 7:57 AM V[employer] MEMBER Vent Rate: 64 bpm RR Interval: 930 msec [place] Interval: 0 msec QRS Duration: 94 msec QT Interval: 441 msec QTC Interval: 451 msec P-R-T [place]: 0 - -4 - -36 degrees IMPRESSION: ATRIAL FIBRILLATION INFERIOR MYOCARDIAL INFARCTION , PROBABLY OLD WITH POSTERIOR EXTENSION ABNORMAL ECG Electronically Signed By: Klaus Humphrey MD PhD Cristino Houser Jr., PA ECG ORDERABLES Final Result [facility] * eGFR (04/18/2024 12:24 AM [employer]BER) eGFR 69 >=60 mL/min/1. 73 m2 Comment: Interpretive Data Reference Interval Normal >/= 90 mL/min/1.73m2 Mildly decreased* 60 - 89 mL/min/1.73m2 Mildly to moderately decreased 45 - 59 mL/min/1.73m2 Moderately to severely decreased 30 - 44 mL/min/1.73m2 Severely decreased 15 - 29 mL/min/1.73m2 Kidney Failure < 15 mL/min/1.73m2 *Relative to young adult level Estimated glomerular [...] interpretive data was last reviewed 2021. Blood 04/18/2024 12:2 4 AM [employer]BER 04/18/2024 12:44 AM [employer]BER Louann Conti MD LAB BLOOD ORDERABLES F inal Result [facility] [address] Department of Laboratories [place], [place] [id number] * Magnesium (04/18/2024 12:24 AM [employer]BER) Magnesium 2.4 1.4 - 2.5 mg/dL Blood 04/18/2024 12:2 4 AM [employer]BER 04/18/2024 12:44 AM [employer]BER Louann Conti MD LAB BLOOD ORDERABLES F inal Result Performing Organization Address City/[facility]/ZIP Co de Phone Number [facility] [address] [place] [address] * (ABNORMAL) Renal function panel (04/18/2024 12:24 AM V[employer] MEMBER) Sodium 137 135 - 145 mmol/L Potassium, pl 4.3 3.3 - 4.9 mmol/L [facility] Chloride 101 97 - 110 mmol/L [facility] CO2 25 22 - 32 mmol/L [facility] Anion gap 11 2 - 15 mmol/L [facility] BUN 37(H) 6 - 25 mg/dL [facility] Creatinine 1.06 0.80 - 1.30 mg/dL [facility] Glucose 102 70 - 199 mg/dL [facility] Comment: Interpretive Data Fasting glucose >/= 126 mg/dl is diagnostic for diabetes. Fasting is defined as no caloric intake [...] 2022. Calcium 8.9 8.5 - 10.3 mg/dL [facility] Phosphorus, pl 2.9 2.3 - 4.5 mg/dL [facility] Albumin 3.8 3.5 - 5.0 g/dL [facility] Blood 04/18/2024 12:2 4 AM [employer] MEMBER 04/18/2024 12:44 AM [employer]BER Louann Conti MD LAB BLOOD ORDERABLES F inal Result Performing Organization Address [facility]/ZIP Co de Phone Number [facility] [address] Department [place] [address] * EGD (04/16/2024 7:56 AM V[employer] MEMBER) Anatomical Region Laterality Modality Other Narrative Procedure Note Roderick Bedolla MD - 04/16/2024 7:56 AM CST ENDOSCOPY LAB Patient Name: Gian Lee Procedure Date: 04/16/2024 7:56 AM Admit Type: Inpatient Room: [facility] Date of : 1940 Instrument Name: [id number] Gender: Male Note Status: Finalized Procedure: Upper GI endoscopy Indications: Place PEG due to dysphagia Providers: Roderick Bedolla M.D. Referring MD: Martinez Pace M.D. Medicines: Propofol per Anesthesia Complications: No immediate complications. Estimated Blood Loss: Estimated blood loss: none. Procedure: Pre-Anesthesia Assessment: - After reviewing the risks and benefits, thepatient was deemed in satisfactory condition to undergo the procedure. The benefits, risks, and alternatives to theprocedure and sedation were discussed and informed consentwas obtained. The scope was passed under direct vision. The Endoscope was introduced through the mouth, and advanced to the second part of duodenum. The upperGI endoscopy was accomplished without difficulty. The patient tolerated the procedure well. Findings: The examined esophagus was normal. The entire examined stomach was normal. The patient was placed in the supine position for PEG placement. The stomach was insufflated toappose gastric and abdominal gonzalez. A site was located in the body of the stomach with excellent transillumination and manual external pressure for placement. The abdominal wall was marked and prepped in a sterile manner. The area was anesthetized with 3 mL of 1% lidocaine. Thetrocar needle was introduced through the abdominal wall and into the stomach under direct endoscopic view. A snare was introduced through the endoscope and opened in the gastric lumen. The guide wire was passed through the trocar and into the open snare. The snare was closedaround the guide wire. The endoscope and snare were removed, pulling thewire out through the mouth. A skin incision was made at the site of needle insertion. The externally removable 20 Fr EndoVive Safety gastrostomy tube was lubricated. The G-tube was tied to the guide wire and pulled through the mouth and into the stomach. The trocar needle wasremoved, and the gastrostomy tube was pulled out from the stomach through the skin. The external bumper was attached to the gastrostomy tube, andthe tube was cut to remove the guide wire. The final position of the gastrostomy tube was confirmed by relook endoscopy, and skin marking noted to be 1 cm at the external bumper. The final tension and compression of the abdominal wall by the PEG tube and external bumper were checked and revealed that the bumper was moderately tight and mildly deforming the skin. The feeding tube was capped, and the tube site cleaned and dressed. The examined duodenum was normal. Impression: - Normal esophagus. - Normal stomach. - Normal examined duodenum. - An externally removable PEG placement was successfully completed. - No specimens collected. Recommendation: - Please follow the post-PEG recommendations including: may use PEG today for meds and water and may use PEG tomorrow for feedings. Dr. Roderick Bedolla Roderick Bedolla M.D. 04/16/2024 9:28:14 AM This document was signed electronically. Number of Addenda: 0 Note Initiated On: 04/16/2024 7:56 AM Scope In: Scope Out: Roderick Bedolla MD ENDOSCOPY PROCEDURE S Final Result * eGFR (04/15/2024 12:25 AM [employer]BER) eGFR 61 >=60 mL/min/1. 73 m2 Comment: Interpretive Data Reference Interval Normal >/= 90 mL/min/1.73m2 Mildly decreased* 60 - 89 mL/min/1.73m2 Mildly to moderately decreased 45 - 59 mL/min/1.73m2 Moderately to severely decreased 30 - 44 mL/min/1.73m2 Severely decreased 15 - 29 mL/min/1.73m2 Kidney Failure < 15 mL/min/1.73m2 *Relative to young adult level Estimated glomerular [...] interpretive data was last reviewed 2021. Blood 04/15/2024 12:2 5 AM [employer]BER 04/15/2024 12:48 AM [employer] MEMBER Result [facility] Louann Conti MD LAB BLOOD ORDERABLES F inal Result [facility] [address] Department [place] [address] * (ABNORMAL) Protime-INR (04/15/2024 12:25 AM V[employer] MEMBER) PT 16.8(H) 9.7 - 13.0 sec INR 1.54(H) 0.90 - 1.20 [facility] Comment: Interpretive data Oral anticoagulant therapeutic ranges: Venous thromboembolism prophylaxis or treatment: 2.0-3.0 CARDIOLOGY Standard range: 2.0-3.0 High-intensity range: 2.5-3.5 Refer to indication-specific guidelines for appropriate target ranges for prosthetic heart valve replacement. Current interpretive data was last revised on 2019. Blood 04/15/2024 12:2 5 AM [employer] MEMBER 04/15/2024 12:48 AM [employer]BER us Jaycee SOLIS LAB BLOOD ORDERABLES Final Re sult [facility] [address] Department [place] [address] * (ABNORMAL) Renal function panel (04/15/2024 12:25 AM V[employer] MEMBER) Sodium 140 135 - 145 mmol/L Potassium, pl 4.5 3.3 - 4.9 mmol/L [facility] Chloride 103 97 - 110 mmol/L [facility] CO2 27 22 - 32 mmol/L [facility] Anion gap 10 2 - 15 mmol/L [facility] BUN 27(H) 6 - 25 mg/dL [facility] Creatinine 1.17 0.80 - 1.30 mg/dL [facility] Glucose 103 70 - 199 mg/dL [facility] Comment: Interpretive Data Fasting glucose >/= 126 mg/dl is diagnostic for diabetes. Fasting is defined as no caloric intake [...] interpretive data was last revised 2022. Calcium 9.5 8.5 - 10.3 mg/dL [facility] Phosphorus, pl 4.2 2.3 - 4.5 mg/dL [facility] Albumin 3.7 3.5 - 5.0 g/dL [facility] Blood 04/15/2024 12:2 5 AM [employer] MEMBER 04/15/2024 12:48 AM [employer]BER Louann Conti MD LAB BLOOD ORDERABLES F inal Result Performing Organization Address [facility]/ZIP Co de Phone Number [facility] [address] [facility] [place] [address] * POCT glucose (04/13/2024 10:44 PM [employer] MEMBER) Glucose, POC 102 70 - 199 mg/dL Comment: For Glucose values <35 mg/dl when Hematocrit is >60 mg/dl,the test may not accurately detect significant hypoglycemia,and testing in the Laboratory should be considered if clinically indicated. Blood 04/13/2024 10:4 4 PM [employer] MEMBER 04/13/2024 10:44 PM [employer]BER Louann Conti MD LAB POCT ORDERABLES - DEVICE Final Result Performing Organization Address [facility] Co de Phone Number [facility] [address] [place] [address] * [place] Modified Barium Swallow W Video (04/13/2024 2:06 PM V[employer] MEMBER) Anatomical Region Laterality Modality Head and Neck N/A Radio Fluoroscop y 04/13/2024 3:44 PM [employer]BER Impressions 04/13/2024 4:07 PM [employer]BER 1. There is silent transglottic aspiration with thin, nectar, honey, puree consistencies. 2. There is moderate residual identified within the vallecula throughout the exam. Please refer to the Speech Pathology procedure note for safe swallow recommendations as well as additional information regarding the oral-pharyngeal swallow function, plan of care, and recommended follow up. FLUOROSCOPY TIME: 4.1 minutes REFERENCE AIR KERMA: 26.5 mGy. Dictated by: Jennifer Corcoran PA-C The radiology attending physician has personally reviewed this study, and had reviewed and/or edited this written report and agrees with it. Electronically signed by: Mo Stahl M.D. Narrative 04/13/2024 4:07 PM [employer]BER EXAMINATION: MODIFIED BARIUM SWALLOW 04/05/2024 HISTORY: Dysphagia. Aspiration pneumonia. TECHNIQUE: This procedure was completed in conjunction with a Speech Language Pathologist. Modified barium swallow was performed in conjunction with the speech pathologist. Thin and thick liquid, pudding and cracker preparations of barium were administered orally to the patient. Video fluoroscopy was used throughout the exam. FINDINGS: There is partial visualization of a nasoenteric tube. There are 2 surgical clips intermittently seen throughout the study in the mediastinum, overlying the area of the trachea. The oral phase of swallowing is within the normal range. Once the swallow reflex is initiated, pharyngeal contractility appears to be weakened. Epiglottic movement is absent which may be due to presence of nasoenteric tube. There is silent epiglottic aspiration with thin consistency (series 5, 6, 8, 16), nectar consistency (arrow, series 10), puree consistency (series 13). There is deep penetration to the level of the vocal cords with honey consistency and one episode of presumed silent aspiration which was not caught on live fluoroscopy (arrow, series 13). There is moderate residual identified within the vallecula throughout the exam. Procedure Note Mo Stahl MD - 04/13/2024 EXAMINATION: MODIFIED BARIUM SWALLOW 04/05/2024 HISTORY: Dysphagia. Aspiration pneumonia. TECHNIQUE: This procedure was completed in conjunction with a Speech Language Pathologist. Modified barium swallow was performed in conjunction with the speech pathologist. Thin and thick liquid, pudding and cracker preparations of barium were administered orally to the patient. Video fluoroscopy was used throughout the exam. FINDINGS: There is partial visualization of a nasoenteric tube. There are 2 surgical clips intermittently seen throughout the study in the mediastinum, overlying the area of the trachea. The oral phase of swallowing is within the normal range. Once the swallow reflex is initiated, pharyngeal contractility appears to be weakened. Epiglottic movement is absent which may be due to presence of nasoenteric tube. There is silent epiglottic aspiration with thin consistency (series 5, 6, 8, 16), nectar consistency (arrow, series 10), puree consistency (series 13). There is deep penetration to the level of the vocal cords with honey consistency and one episode of presumed silent aspiration which was not caught on live fluoroscopy (arrow, series 13). There is moderate residual identified within the vallecula throughout the exam. IMPRESSION: 1. There is silent transglottic aspiration with thin, nectar, honey, puree consistencies. 2. There is moderate residual identified within the vallecula throughout the exam. Please refer to the Speech Pathology procedure note for safe swallow recommendations as well as additional information regarding the oral-pharyngeal swallow function, plan of care, and recommended follow up. FLUOROSCOPY TIME: 4.1 minutes REFERENCE AIR KERMA: 26.5 mGy. Dictated by: Jennifer Corcoran PA-C The radiology attending physician has personally reviewed this study, and had reviewed and/or edited this written report and agrees with it. Electronically signed by: Mo Stahl M.D. Tara Ram MD IMG FLUOROSCOPY PROCEDURES Final Result * eGFR (04/12/2024 1:38 AM [employer]) eGFR 68 >=60 mL/min/1. 73 m2 Comment: Interpretive Data Reference Interval Normal >/= 90 mL/min/1.73m2 Mildly decreased* 60 - 89 mL/min/1.73m2 Mildly to moderately decreased 45 - 59 mL/min/1.73m2 Moderately to severely decreased 30 - 44 mL/min/1.73m2 Severely decreased 15 - 29 mL/min/1.73m2 Kidney Failure < 15 mL/min/1.73m2 *Relative to young adult level Estimated glomerular [...] interpretive data was last reviewed 2021. Blood 04/12/2024 1:38 AM [employer] 04/12/2024 1:58 AM [employer] Tara Ram MD LAB BLOOD ORDERABLES Final Result [facility] [address] Department [place] [address] * Differential, auto (04/12/2024 1:38 AM [employer]) Neutrophil abs 4.4 1.5 - 6.5 K/cumm Imm gran abs 0.1 0.0 - 0.1 K/cumm [facility] Lymphocyte abs 0.9 0.8 - 3.3 K/cumm [facility] Monocyte abs 0.6 0.2 - 0.8 K/cumm [facility] Eosinophil abs 0.5 0.0 - 0.5 K/cumm [facility] Basophil abs 0.1 0.0 - 0.1 K/cumm [facility] Neutrophil pct 66.9 % [facility] Comment: Interpretive Data Percent cell count reference ranges are not reported, since discordance with absolute values may lead to misinterpretation of CBC data. Current Interpretive Data was last revised on 2017. Imm gran pct 0.9 % [facility] Comment: Interpretive Data Percent cell count reference ranges are not reported, since discordance with absolute values may lead to misinterpretation of CBC data. Current Interpretive Data was last revised on 2017. Lymphocyte pct 13.7 % [facility] Comment: Interpretive Data Percent cell count reference ranges are not reported, since discordance with absolute values may lead to misinterpretation of CBC data. Current Interpretive Data was last revised on 2017. Monocyte pct 9.6 % [facility] Comment: Interpretive Data Percent cell count reference ranges are not reported, since discordance with absolute values may lead to misinterpretation of CBC data. Current Interpretive Data was last revised on 2017. Eosinophil pct 7.4 % [facility] Comment: Interpretive Data Percent cell count reference ranges are not reported, since discordance with absolute values may lead to misinterpretation of CBC data. Current Interpretive Data was last revised on 2017. Basophil pct 1.5 % [facility] Comment: Interpretive Data Percent cell count reference ranges are not reported, since discordance with absolute values may lead to misinterpretation of CBC data. Current Interpretive Data was last revised on 2017. Blood 04/12/2024 1:38 AM [employer] 04/12/2024 1:58 AM [employer] Tara Ram MD LAB BLOOD ORDERABLES Final Result Performing Organization Address [facility]/ZIP Co de Phone Number [facility] [address] [place] [address] * (ABNORMAL) CBC with auto differential (04/12/2024 1:38 AM [employer]) [facility] WBC 6.6 3.8 - 9.9 K/cumm Hgb 10.2(L) 13.0 - 17.5 g/dL [facility] Hct 31.6(L) 38.9 - 50.3 % [facility] Plt 270 150 - 400 K/cumm [facility] MPV 9.1 9.1 - 12.3 fL [facility] RBC 3.56(L) 4.30 - 5.80 M/cumm [facility] MCV 88.8 81.3 - 96.4 fL [facility] MCH 28.7 27.1 - 33.3 pg [facility] MCHC 32.3 32.3 - 35.7 g/dL [facility] RDW CV 12.8 11.1 - 14.9 % [facility] RDW SD 41.6 35.7 - 48.1 fL [facility] NRBC abs 0.00 0.00 - 0.01 K/cumm [facility] Blood 04/12/2024 1:38 AM [employer] 04/12/2024 1:58 AM [employer] Tara Ram MD LAB BLOOD ORDERABLES Final Result [facility] [address] [place] [address] * Magnesium (04/12/2024 1:38 AM [employer]) [facility] Magnesium 2.3 1.4 - 2.5 mg/dL Blood 04/12/2024 1:38 AM [employer] 04/12/2024 1:58 AM [employer] Tara Ram MD LAB BLOOD ORDERABLES Final Result Performing Organization Address City/[facility]/ZIP Co de Phone Number [facility] [address] [place] [address] * Renal function panel (04/12/2024 1:38 AM [employer]) Sodium 137 135 - 145 mmol/L Potassium, pl 4.4 3.3 - 4.9 mmol/L [facility] Chloride 102 97 - 110 mmol/L [facility] CO2 24 22 - 32 mmol/L [facility] Anion gap 11 2 - 15 mmol/L [facility] BUN 25 6 - 25 mg/dL [facility] Creatinine 1.07 0.80 - 1.30 mg/dL [facility] Glucose 115 70 - 199 mg/dL [facility] Comment: Interpretive Data Fasting glucose >/= 126 mg/dl is diagnostic for diabetes. Fasting is defined as no caloric intake [...] interpretive data was last revised 2022. Calcium 9.6 8.5 - 10.3 mg/dL [facility] Phosphorus, pl 4.1 2.3 - 4.5 mg/dL [facility] Albumin 3.6 3.5 - 5.0 g/dL [facility] Blood 04/12/2024 1:38 AM [employer] 04/12/2024 1:58 AM [employer] Tara Ram MD LAB BLOOD ORDERABLES Final Result Performing Organization Address City/[facility]/ZIP Co de Phone Number [facility] [address] [place] [address] * eGFR (04/10/2024 12:21 AM [employer]) [facility] eGFR 65 >=60 mL/min/1. 73 m2 Comment: Interpretive Data Reference Interval Normal >/= 90 mL/min/1.73m2 Mildly decreased* 60 - 89 mL/min/1.73m2 Mildly to moderately decreased 45 - 59 mL/min/1.73m2 Moderately to severely decreased 30 - 44 mL/min/1.73m2 Severely decreased 15 - 29 mL/min/1.73m2 Kidney Failure < 15 mL/min/1.73m2 *Relative to young adult level Estimated glomerular [...] interpretive data was last reviewed 2021. Blood 04/10/2024 12:2 1 AM [employer] 04/10/2024 12:46 AM [employer] us Tara Ram MD LAB BLOOD ORDERABLES Final Result [facility] [address] [place] [address] * (ABNORMAL) CBC without differential (04/10/2024 12:21 AM [employer]) [facility] WBC 5.1 3.8 - 9.9 K/cumm Hgb 10.2(L) 13.0 - 17.5 g/dL [facility] Hct 31.7(L) 38.9 - 50.3 % [facility] Plt 274 150 - 400 K/cumm [facility] MPV 8.6(L) 9.1 - 12.3 fL [facility] RBC 3.55(L) 4.30 - 5.80 M/cumm [facility] MCV 89.3 81.3 - 96.4 fL [facility] MCH 28.7 27.1 - 33.3 pg [facility] MCHC 32.2(L) 32.3 - 35.7 g/dL [facility] RDW CV 12.7 11.1 - 14.9 % [facility] RDW SD 41.6 35.7 - 48.1 fL [facility] NRBC abs 0.00 0.00 - 0.01 K/cumm [facility] Blood 04/10/2024 12:2 1 AM [employer] 04/10/2024 12:46 AM [employer] Tara Ram MD LAB BLOOD ORDERABLES Final Result [facility] [address] [place], [place] [id number] * Magnesium (04/10/2024 12:21 AM [employer]) [facility] Magnesium 2.4 1.4 - 2.5 mg/dL Blood 04/10/2024 12:2 1 AM [employer] 04/10/2024 12:46 AM [employer] Tara Ram MD LAB BLOOD ORDERABLES Final Result Performing Organization Address City/[facility]/ZIP Co de Phone Number [facility] [address] [place] [address] * Renal function panel (04/10/2024 12:21 AM [employer]) Sodium 138 135 - 145 mmol/L Potassium, pl 4.6 3.3 - 4.9 mmol/L [facility] Chloride 101 97 - 110 mmol/L [facility] CO2 28 22 - 32 mmol/L [facility] Anion gap 9 2 - 15 mmol/L [facility] BUN 23 6 - 25 mg/dL [facility] Creatinine 1.12 0.80 - 1.30 mg/dL [facility] Glucose 85 70 - 199 mg/dL [facility] Comment: Interpretive Data Fasting glucose >/= 126 mg/dl is diagnostic for diabetes. Fasting is defined as no caloric intake [...] interpretive data was last revised 2022. Calcium 9.6 8.5 - 10.3 mg/dL [facility] Phosphorus, pl 4.1 2.3 - 4.5 mg/dL [facility] Albumin 3.7 3.5 - 5.0 g/dL [facility] Blood 04/10/2024 12:2 1 AM [employer] 04/10/2024 12:46 AM [employer] us Tara Ram MD LAB BLOOD ORDERABLES Final Result [facility] [address] [place] [address] * eGFR (04/09/2024 12:26 AM [employer]) eGFR 74 >=60 mL/min/1. 73 m2 Comment: Interpretive Data Reference Interval Normal >/= 90 mL/min/1.73m2 Mildly decreased* 60 - 89 mL/min/1.73m2 Mildly to moderately decreased 45 - 59 mL/min/1.73m2 Moderately to severely decreased 30 - 44 mL/min/1.73m2 Severely decreased 15 - 29 mL/min/1.73m2 Kidney Failure < 15 mL/min/1.73m2 *Relative to young adult level Estimated glomerular [...] interpretive data was last reviewed 2021. Blood 04/09/2024 12:2 6 AM [employer] 04/09/2024 1:19 AM [employer] Tara Ram MD LAB BLOOD ORDERABLES Final Result Performing Organization Address [facility]/ZIP Co de Phone Number [facility] [address] [place] [address] * (ABNORMAL) CBC without differential (04/09/2024 12:26 AM [employer]) [facility] WBC 5.8 3.8 - 9.9 K/cumm Hgb 9.9(L) 13.0 - 17.5 g/dL [facility] Hct 31.6(L) 38.9 - 50.3 % [facility] Plt 289 150 - 400 K/cumm [facility] MPV 9.4 9.1 - 12.3 fL [facility] RBC 3.44(L) 4.30 - 5.80 M/cumm [facility] MCV 91.9 81.3 - 96.4 fL [facility] MCH 28.8 27.1 - 33.3 pg [facility] MCHC 31.3(L) 32.3 - 35.7 g/dL [facility] RDW CV 12.7 11.1 - 14.9 % [facility] RDW SD 42.0 35.7 - 48.1 fL [facility] NRBC abs 0.00 0.00 - 0.01 K/cumm [facility] Blood 04/09/2024 12:2 6 AM [employer] 04/09/2024 1:20 AM [employer] Tara Ram MD LAB BLOOD ORDERABLES Final Result [facility] [address] [place] [address] * Magnesium (04/09/2024 12:26 AM [employer]) Pathologist [facility] [place] Magnesium 2.3 1.4 - 2.5 mg/dL Blood 04/09/2024 12:2 6 AM [employer] 04/09/2024 1:19 AM [employer] Tara Ram MD LAB BLOOD ORDERABLES Final Result [facility] [address] [place] [address] * (ABNORMAL) Renal function panel (04/09/2024 12:26 AM [employer]) Pathologist [facility] [place] Sodium 138 135 - 145 mmol/L Potassium, pl 4.6 3.3 - 4.9 mmol/L [facility] Chloride 103 97 - 110 mmol/L [facility] CO2 25 22 - 32 mmol/L [facility] Anion gap 10 2 - 15 mmol/L [facility] BUN 24 6 - 25 mg/dL [facility] Creatinine 1.00 0.80 - 1.30 mg/dL [facility] Glucose 90 70 - 199 mg/dL [facility] Comment: Interpretive Data Fasting glucose >/= 126 mg/dl is diagnostic for diabetes. Fasting is defined as no caloric intake [...] 2022. Calcium 9.3 8.5 - 10.3 mg/dL [facility] Phosphorus, pl 3.7 2.3 - 4.5 mg/dL [facility] Albumin 3.3(L) 3.5 - 5.0 g/dL [facility] Blood 04/09/2024 12:2 6 AM [employer] 04/09/2024 1:19 AM [employer] Tara Ram MD LAB BLOOD ORDERABLES Final Result Performing Organization Address City/[facility]/ZIP Co de Phone Number [facility] [address] [place], [place] [id number] [phone] * US Carotids Duplex Bilateral (04/08/2024 5:50 PM [employer]) Anatomical Region Laterality Modality Vascular Bilateral Ultrasound 04/09/2024 4:26 PM [employer] Impressions 04/09/2024 4:26 PM [employer] 1) Diffuse atherosclerotic change throughout the bilateral extracranial carotid systems without evidence of hemodynamically significant stenosis. 2) Vertebral arteries demonstrate antegrade flow on the right, and antegrade flow on the left. 3) No comparison available. The estimated degree of stenosis of the internal carotid arteries reported on this examination is based on the diagnostic criteria proposed by the Society of Radiologists in Ultrasound (SRU) Consensus Conference. Electronically signed by: Onur Martinez MD Narrative 04/09/2024 4:26 PM [employer] DATE:04/08/2024 9:30 AM EXAM: Duplex imaging of the carotid arteries. INDICATION: Stroke. COMPARISON STUDY DATE: None IMAGE QUALITY: Fair FINDINGS: RIGHT SIDE: B/P: Not recorded Right: B-mode imaging demonstrates complex plaque morphology in the right common carotid artery. The right common carotid artery peak systolic velocity is 59 cm/sec. B-mode imaging demonstrates complex plaque morphology in the right internal carotid artery. The right internal carotid artery peak systolic velocity is 73 cm/ sec. The end diastolic velocity is 22. The right internal carotid artery to common carotid artery ratio is 1.2. The right external carotid artery peak systolic velocity is 47 cm/sec. The right vertebral artery demonstrates antegrade flow. Incidental findings: None. LEFT SIDE: B/P: Not recorded Left: B-mode imaging demonstrates complex plaque morphology in the left common carotid artery. The left common carotid artery peak systolic velocity is 65 cm/sec. B-mode imaging demonstrates complex and irregular plaque morphology in the left internal carotid artery. The left internal carotid artery peak systolic velocity is 56 cm/ sec. The end diastolic velocity is 17. The left internal carotid artery to common carotid artery ratio is 0.9. The left external carotid artery peak systolic velocity is 75 cm/sec. The left vertebral artery demonstrates antegrade flow. Incidental findings:None. Procedure Note Onur Martinez MD - 04/09/2024 DATE:04/08/2024 9:30 AM EXAM: Duplex imaging of the carotid arteries. INDICATION: Stroke. COMPARISON STUDY DATE: None IMAGE QUALITY: Fair FINDINGS: RIGHT SIDE: B/P: Not recorded Right: B-mode imaging demonstrates complex plaque morphology in the right common carotid artery. The right common carotid artery peak systolic velocity is 59 cm/sec. B-mode imaging demonstrates complex plaque morphology in the right internal carotid artery. The right internal carotid artery peak systolic velocity is 73 cm/ sec. The end diastolic velocity is 22. The right internal carotid artery to common carotid artery ratio is 1.2. The right external carotid artery peak systolic velocity is 47 cm/sec. The right vertebral artery demonstrates antegrade flow. Incidental findings: None. LEFT SIDE: B/P: Not recorded Left: B-mode imaging demonstrates complex plaque morphology in the left common carotid artery. The left common carotid artery peak systolic velocity is 65 cm/sec. B-mode imaging demonstrates complex and irregular plaque morphology in the left internal carotid artery. The left internal carotid artery peak systolic velocity is 56 cm/ sec. The end diastolic velocity is 17. The left internal carotid artery to common carotid artery ratio is 0.9. The left external carotid artery peak systolic velocity is 75 cm/sec. The left vertebral artery demonstrates antegrade flow. Incidental findings:None. IMPRESSION: 1) Diffuse atherosclerotic change throughout the bilateral extracranial carotid systems without evidence of hemodynamically significant stenosis. 2) Vertebral arteries demonstrate antegrade flow on the right, and antegrade flow on the left. 3) No comparison available. The estimated degree of stenosis of the internal carotid arteries reported on this examination is based on the diagnostic criteria proposed by the Society of Radiologists in Ultrasound (SRU) Consensus Conference. Electronically signed by: Onur Martinez MD us Tara Ram MD IMG US PROCEDURES Final Re sult * eGFR (04/08/2024 12:52 AM [employer]) eGFR 68 >=60 mL/min/1. 73 m2 Comment: Interpretive Data Reference Interval Normal >/= 90 mL/min/1.73m2 Mildly decreased* 60 - 89 mL/min/1.73m2 Mildly to moderately decreased 45 - 59 mL/min/1.73m2 Moderately to severely decreased 30 - 44 mL/min/1.73m2 Severely decreased 15 - 29 mL/min/1.73m2 Kidney Failure < 15 mL/min/1.73m2 *Relative to young adult level Estimated glomerular [...] reviewed 2021. Blood 04/08/2024 12:5 2 AM [employer] 04/08/2024 1:05 AM [employer] us Tara Ram MD LAB BLOOD ORDERABLES Final Result [facility] [address] [place] [address] * Differential, auto (04/08/2024 12:52 AM [employer]) Neutrophil abs 4.4 1.5 - 6.5 K/cumm Imm gran abs 0.0 0.0 - 0.1 K/cumm [facility] Lymphocyte abs 0.9 0.8 - 3.3 K/cumm [facility] Monocyte abs 0.7 0.2 - 0.8 K/cumm [facility] Eosinophil abs 0.3 0.0 - 0.5 K/cumm [facility] Basophil abs 0.1 0.0 - 0.1 K/cumm [facility] Neutrophil pct 68.1 % [facility] Comment: Interpretive Data Percent cell count reference ranges are not reported, since discordance with absolute values may lead to misinterpretation of CBC data. Current Interpretive Data was last revised on 2017. Imm gran pct 0.6 % [facility] Comment: Interpretive Data Percent cell count reference ranges are not reported, since discordance with absolute values may lead to misinterpretation of CBC data. Current Interpretive Data was last revised on 2017. Lymphocyte pct 14.0 % [facility] Comment: Interpretive Data Percent cell count reference ranges are not reported, since discordance with absolute values may lead to misinterpretation of CBC data. Current Interpretive Data was last revised on 2017. Monocyte pct 10.6 % [facility] Comment: Interpretive Data Percent cell count reference ranges are not reported, since discordance with absolute values may lead to misinterpretation of CBC data. Current Interpretive Data was last revised on 2017. Eosinophil pct 5.3 % [facility] Comment: Interpretive Data Percent cell count reference ranges are not reported, since discordance with absolute values may lead to misinterpretation of CBC data. Current Interpretive Data was last revised on 2017. Basophil pct 1.4 % [facility] Comment: Interpretive Data Percent cell count reference ranges are not reported, since discordance with absolute values may lead to misinterpretation of CBC data. Current Interpretive Data was last revised on 2017. Blood 04/08/2024 12:5 2 AM [employer] 04/08/2024 1:05 AM [employer] us Tara Ram MD LAB BLOOD ORDERABLES Final Result [facility] [address] Department of Laboratories [place], [place] [id number] * (ABNORMAL) CBC with auto differential (04/08/2024 12:52 AM [employer]) WBC 6.4 3.8 - 9.9 K/cumm Hgb 10.5(L) 13.0 - 17.5 g/dL [facility] Hct 33.7(L) 38.9 - 50.3 % [facility] Plt 288 150 - 400 K/cumm [facility] MPV 9.1 9.1 - 12.3 fL [facility] RBC 3.74(L) 4.30 - 5.80 M/cumm [facility] MCV 90.1 81.3 - 96.4 fL [facility] MCH 28.1 27.1 - 33.3 pg [facility] MCHC 31.2(L) 32.3 - 35.7 g/dL [facility] RDW CV 12.5 11.1 - 14.9 % [facility] RDW SD 41.2 35.7 - 48.1 fL [facility] NRBC abs 0.00 0.00 - 0.01 K/cumm [facility] Blood 04/08/2024 12:5 2 AM [employer] 04/08/2024 1:05 AM [employer] Tara Ram MD LAB BLOOD ORDERABLES Final Result Performing Organization Address City/[facility]/ZIP Co de Phone Number [facility] [address] [place] [address] * Magnesium (04/08/2024 12:52 AM [employer]) [facility] Magnesium 2.3 1.4 - 2.5 mg/dL Blood 04/08/2024 12:5 2 AM [employer] 04/08/2024 1:05 AM [employer] Tara Ram MD LAB BLOOD ORDERABLES Final Result Performing Organization Address City/[facility] Co de Phone Number [facility] [address] [place] [address] * (ABNORMAL) Renal function panel (04/08/2024 12:52 AM [employer]) Pathologist [facility] [facility] [place] Sodium 138 135 - 145 mmol/L Potassium, pl 5.0(H) 3.3 - 4.9 mmol/L [facility] Chloride 102 97 - 110 mmol/L [facility] CO2 25 22 - 32 mmol/L [facility] Anion gap 11 2 - 15 mmol/L [facility] BUN 25 6 - 25 mg/dL [facility] Creatinine 1.07 0.80 - 1.30 mg/dL [facility] Glucose 89 70 - 199 mg/dL [facility] Comment: Interpretive Data Fasting glucose >/= 126 mg/dl is diagnostic for diabetes. Fasting is defined as no caloric intake [...] 2022. Calcium 9.3 8.5 - 10.3 mg/dL [facility] Phosphorus, pl 3.4 2.3 - 4.5 mg/dL [facility] Albumin 3.4(L) 3.5 - 5.0 g/dL [facility] Blood 04/08/2024 12:5 2 AM [employer] 04/08/2024 1:05 AM [employer] us Tara Ram MD LAB BLOOD ORDERABLES Final Result [facility] [address] [place] [address] * MRI Brain WO Contrast (04/08/2024 12:24 AM [employer]) Anatomical Region Laterality Modality Head and Neck N/A Magnetic Resonan ce 04/08/2024 8:48 AM [employer] Impressions 04/08/2024 10:01 AM [employer] 1. Approximately 5 punctate foci of diffusion restriction consistent with acute infarct predominantly within the by bilateral hemispheric periventricular white matter and also within the high right parietal subcortical white matter. These infarct may be in the internal watershed distribution. 2. Moderate T2/FLAIR signal hyperintensity in the periventricular deep white matter, nonspecific and most commonly seen with chronic small vessel ischemic disease. The Critical results were discussed with Tara Ram MD by Dr. Caceres on 04/08/2024 at 8:47 AM. Dictated by: Adam Caceres D.O. The radiology attending physician has personally reviewed this study, and had reviewed and/or edited this written report and agrees with it. Electronically signed by: Patrick Malloy MD, PHD Narrative 04/08/2024 10:01 AM [employer] EXAMINATION: Magnetic resonance imaging (MRI) of the brain and brainstem without contrast HISTORY: 83 years-old Male with Neuro deficit, acute, stroke suspected. TECHNIQUE: Multiplanar multi-weighted MRI of the brain and brainstem was performed without intravenous contrast using the general brain protocol. COMPARISON: MRI brain 12/17/2021. FINDINGS: Approximately 5 punctate foci of diffusion restriction consistent with acute infarct predominantly within the by bilateral hemispheric periventricular white matter and also within the high right parietal subcortical white matter. Chronic lacunar infarct in the left periatrial white matter and left cerebellum. Small area of left frontal paramedian encephalomalacia. Mild generalized cerebral and cerebellar volume loss. Moderate T2/FLAIR signal hyperintensity in the periventricular deep white matter, nonspecific and most commonly seen with chronic small vessel ischemic disease. The scalp and calvarium are normal. The superior sagittal sinus demonstrates normal venous flow. The corpus callosum is normal in shape and signal intensity. The posterior fossa is unremarkable. The pituitary and sella are normal. The brainstem and craniocervical junction are unremarkable. Few scattered punctate foci of susceptibility consistent with chronic microhemorrhage in the bilateral cerebral hemispheres and right middle cerebellar peduncle. The ventricles are normal in size and position without evidence of hydrocephalus. The paranasal sinuses are normal. The visualized portions of the mastoids are unremarkable. Bilateral lens replacements. Normal flow voids are demonstrated in the carotid arteries and basilar artery. Procedure Note Patrick Malloy MD PhD - 04/08/2024 EXAMINATION: Magnetic resonance imaging (MRI) of the brain and brainstem without contrast HISTORY: 83 years-old Male with Neuro deficit, acute, stroke suspected. TECHNIQUE: Multiplanar multi-weighted MRI of the brain and brainstem was performed without intravenous contrast using the general brain protocol. COMPARISON: MRI brain 12/17/2021. FINDINGS: Approximately 5 punctate foci of diffusion restriction consistent with acute infarct predominantly within the by bilateral hemispheric periventricular white matter and also within the high right parietal subcortical white matter. Chronic lacunar infarct in the left periatrial white matter and left cerebellum. Small area of left frontal paramedian encephalomalacia. Mild generalized cerebral and cerebellar volume loss. Moderate T2/FLAIR signal hyperintensity in the periventricular deep white matter, nonspecific and most commonly seen with chronic small vessel ischemic disease. The scalp and calvarium are normal. The superior sagittal sinus demonstrates normal venous flow. The corpus callosum is normal in shape and signal intensity. The posterior fossa is unremarkable. The pituitary and sella are normal. The brainstem and craniocervical junction are unremarkable. Few scattered punctate foci of susceptibility consistent with chronic microhemorrhage in the bilateral cerebral hemispheres and right middle cerebellar peduncle. The ventricles are normal in size and position without evidence of hydrocephalus. The paranasal sinuses are normal. The visualized portions of the mastoids are unremarkable. Bilateral lens replacements. Normal flow voids are demonstrated in the carotid arteries and basilar artery. IMPRESSION: 1. Approximately 5 punctate foci of diffusion restriction consistent with acute infarct predominantly within the by bilateral hemispheric periventricular white matter and also within the high right parietal subcortical white matter. These infarct may be in the internal watershed distribution. 2. Moderate T2/FLAIR signal hyperintensity in the periventricular deep white matter, nonspecific and most commonly seen with chronic small vessel ischemic disease. The Critical results were discussed with Tara Ram MD by Dr. Caceres on 04/08/2024 at 8:47 AM. Dictated by: Adam Caceres D.O. The radiology attending physician has personally reviewed this study, and had reviewed and/or edited this written report and agrees with it. Electronically signed by: Patrick Malloy MD, PHD us Tara Ram MD IMG MRI PROCEDURES Final R esult * eGFR (04/07/2024 12:51 AM [employer]) eGFR 72 >=60 mL/min/1. 73 m2 Comment: Interpretive Data Reference Interval Normal >/= 90 mL/min/1.73m2 Mildly decreased* 60 - 89 mL/min/1.73m2 Mildly to moderately decreased 45 - 59 mL/min/1.73m2 Moderately to severely decreased 30 - 44 mL/min/1.73m2 Severely decreased 15 - 29 mL/min/1.73m2 Kidney Failure < 15 mL/min/1.73m2 *Relative to young adult level Estimated glomerular [...] reviewed 2021. Blood 04/07/2024 12:5 1 AM [employer] 04/07/2024 1:14 AM [employer] us Marissa Moni Iam DO LAB BLOOD ORDERABLES F inal Result [facility] [address] Department [place] [address] * (ABNORMAL) Differential, auto (04/07/2024 12:51 AM [employer]) Neutrophil abs 4.7 1.5 - 6.5 K/cumm Imm gran abs 0.0 0.0 - 0.1 K/cumm [facility] Lymphocyte abs 0.7(L) 0.8 - 3.3 K/cumm [facility] Monocyte abs 0.6 0.2 - 0.8 K/cumm [facility] Eosinophil abs 0.3 0.0 - 0.5 K/cumm [facility] Basophil abs 0.1 0.0 - 0.1 K/cumm [facility] Neutrophil pct 73.0 % [facility] Comment: Interpretive Data Percent cell count reference ranges are not reported, since discordance with absolute values may lead to misinterpretation of CBC data. Current Interpretive Data was last revised on 2017. Imm gran pct 0.3 % [facility] Comment: Interpretive Data Percent cell count reference ranges are not reported, since discordance with absolute values may lead to misinterpretation of CBC data. Current Interpretive Data was last revised on 2017. Lymphocyte pct 11.5 % [facility] Comment: Interpretive Data Percent cell count reference ranges are not reported, since discordance with absolute values may lead to misinterpretation of CBC data. Current Interpretive Data was last revised on 2017. Monocyte pct 9.5 % [facility] Comment: Interpretive Data Percent cell count reference ranges are not reported, since discordance with absolute values may lead to misinterpretation of CBC data. Current Interpretive Data was last revised on 2017. Eosinophil pct 4.5 % [facility] Comment: Interpretive Data Percent cell count reference ranges are not reported, since discordance with absolute values may lead to misinterpretation of CBC data. Current Interpretive Data was last revised on 2017. Basophil pct 1.2 % [facility] Comment: Interpretive Data Percent cell count reference ranges are not reported, since discordance with absolute values may lead to misinterpretation of CBC data. Current Interpretive Data was last revised on 2017. Blood 04/07/2024 12:5 1 AM [employer] 04/07/2024 1:14 AM [employer] Marissa Vitale DO LAB BLOOD ORDERABLES F inal Result Performing Organization Address City/[facility]/ZIP Co de Phone Number [facility] [address] Department [place] [address] * (ABNORMAL) CBC with auto differential (04/07/2024 12:51 AM [employer]) WBC 6.4 3.8 - 9.9 K/cumm Hgb 9.6(L) 13.0 - 17.5 g/dL [facility] Hct 29.6(L) 38.9 - 50.3 % [facility] Plt 270 150 - 400 K/cumm [facility] MPV 9.0(L) 9.1 - 12.3 fL [facility] RBC 3.35(L) 4.30 - 5.80 M/cumm [facility] MCV 88.4 81.3 - 96.4 fL [facility] MCH 28.7 27.1 - 33.3 pg [facility] MCHC 32.4 32.3 - 35.7 g/dL [facility] RDW CV 12.5 11.1 - 14.9 % [facility] RDW SD 40.3 35.7 - 48.1 fL [facility] NRBC abs 0.00 0.00 - 0.01 K/cumm [facility] Blood 04/07/2024 12:5 1 AM [employer] 04/07/2024 1:14 AM [employer] Marissa Moni Vitale DO LAB BLOOD ORDERABLES F inal Result Performing Organization Address City/[facility]/ZIP Co de Phone Number [facility] [address] Department [place] [address] * (ABNORMAL) Renal function panel (04/07/2024 12:51 AM [employer]) [facility] Sodium 135 135 - 145 mmol/L Potassium, pl 4.4 3.3 - 4.9 mmol/L [facility] Chloride 101 97 - 110 mmol/L [facility] CO2 26 22 - 32 mmol/L [facility] Anion gap 8 2 - 15 mmol/L [facility] BUN 28(H) 6 - 25 mg/dL [facility] Creatinine 1.03 0.80 - 1.30 mg/dL [facility] Glucose 136 70 - 199 mg/dL [facility] Comment: Interpretive Data Fasting glucose >/= 126 mg/dl is diagnostic for diabetes. Fasting is defined as no caloric intake [...] 2022. Calcium 8.9 8.5 - 10.3 mg/dL [facility] Phosphorus, pl 2.8 2.3 - 4.5 mg/dL [facility] Albumin 3.2(L) 3.5 - 5.0 g/dL [facility] Blood 04/07/2024 12:5 1 AM [employer] 04/07/2024 1:14 AM [employer] us Marissa Vitale DO LAB BLOOD ORDERABLES F inal Result [facility] [address] Department [place] [address] * (ABNORMAL) Hemoglobin and hematocrit (04/06/2024 5:18 PM [employer]) [facility] Hgb 9.5(L) 13.0 - 17.5 g/dL Hct 29.0(L) 38.9 - 50.3 % [facility] Blood 04/06/2024 5:18 PM [employer] 04/06/2024 5:48 PM [employer] us Marissa Vitale DO LAB BLOOD ORDERABLES F inal Result [facility] [address] Department [place] [address] * XR Chest 1 View (04/06/2024 5:06 AM [employer]) Anatomical Region Laterality Modality Body, Chest N/A Computed Radiogr aphy 04/06/2024 9:04 AM [employer] Impressions 04/06/2024 9:04 AM [employer] Feeding tube courses below the diaphragm, loops [...] Goldstein MD, PHD Narrative 04/06/2024 9:04 AM [employer] EXAMINATION: XR CHEST 1 VIEW HISTORY: Shortness [...] Add on lab test (04/06/2024 3:29 AM [employer]) Acceptable Yes Blood 04/06/2024 3:29 AM [employer] 04/06/2024 3:30 AM [employer] Narrative [facility] - 04/06/2024 3:31 AM [employer] Name of Test->Renal function panel Pedro Senior MD LAB BLOOD ORDERABLES Final R esult [facility] [address] Department [place] [address] * eGFR (04/06/2024 2:29 AM [employer]) eGFR 63 >=60 mL/min/1. 73 m2 Comment: Interpretive Data Reference Interval Normal >/= 90 mL/min/1.73m2 Mildly decreased* 60 - 89 mL/min/1.73m2 Mildly to moderately decreased 45 - 59 mL/min/1.73m2 Moderately to severely decreased 30 - 44 mL/min/1.73m2 Severely decreased 15 - 29 mL/min/1.73m2 Kidney Failure < 15 mL/min/1.73m2 *Relative to young adult level Estimated glomerular [...] last reviewed 2021. Blood 04/06/2024 2:29 AM [employer] 04/06/2024 2:29 AM [employer] us Marissa Vitale DO LAB BLOOD ORDERABLES F inal Result [facility] [address] Department [place] [address] * (ABNORMAL) Differential, auto (04/06/2024 2:29 AM [employer]) Neutrophil abs 7.5(H) 1.5 - 6.5 K/cumm Imm gran abs 0.0 0.0 - 0.1 K/cumm [facility] Lymphocyte abs 0.6(L) 0.8 - 3.3 K/cumm [facility] Monocyte abs 0.8 0.2 - 0.8 K/cumm [facility] Eosinophil abs 0.1 0.0 - 0.5 K/cumm [facility] Basophil abs 0.1 0.0 - 0.1 K/cumm [facility] Neutrophil pct 82.2 % [facility] Comment: Interpretive Data Percent cell count reference ranges are not reported, since discordance with absolute values may lead to misinterpretation of CBC data. Current Interpretive Data was last revised on 2017. Imm gran pct 0.4 % [facility] Comment: Interpretive Data Percent cell count reference ranges are not reported, since discordance with absolute values may lead to misinterpretation of CBC data. Current Interpretive Data was last revised on 2017. Lymphocyte pct 7.0 % [facility] Comment: Interpretive Data Percent cell count reference ranges are not reported, since discordance with absolute values may lead to misinterpretation of CBC data. Current Interpretive Data was last revised on 2017. Monocyte pct 8.2 % [facility] Comment: Interpretive Data Percent cell count reference ranges are not reported, since discordance with absolute values may lead to misinterpretation of CBC data. Current Interpretive Data was last revised on 2017. Eosinophil pct 1.4 % [facility] Comment: Interpretive Data Percent cell count reference ranges are not reported, since discordance with absolute values may lead to misinterpretation of CBC data. Current Interpretive Data was last revised on 2017. Basophil pct 0.8 % [facility] Comment: Interpretive Data Percent cell count reference ranges are not reported, since discordance with absolute values may lead to misinterpretation of CBC data. Current Interpretive Data was last revised on 2017. Blood 04/06/2024 2:29 AM [employer] 04/06/2024 2:29 AM [employer] Marissa Vitale LAB BLOOD ORDERABLES F inal Result Performing Organization Address [facility]/ZIP Co de Phone Number [facility] [address] [place] [address] * (ABNORMAL) Procalcitonin (04/06/2024 2:29 AM [employer]) [facility] Procalcitonin 0.76(H) <=0.25 ng/mL Blood 04/06/2024 2:29 AM [employer] 04/06/2024 2:29 AM [employer] Marissalinden Vitale [facility] BLOOD ORDERABLES F inal Result Performing Organization Address [facility] Co de Phone Number [facility] [address] [place] [address] * (ABNORMAL) CBC with auto differential (04/06/2024 2:29 AM [employer]) [facility] WBC 9.1 3.8 - 9.9 K/cumm Hgb 9.3(L) 13.0 - 17.5 g/dL [facility] Hct 28.1(L) 38.9 - 50.3 % [facility] Plt 256 150 - 400 K/cumm [facility] MPV 9.1 9.1 - 12.3 fL [facility] RBC 3.18(L) 4.30 - 5.80 M/cumm [facility] MCV 88.4 81.3 - 96.4 fL [facility] MCH 29.2 27.1 - 33.3 pg [facility] MCHC 33.1 32.3 - 35.7 g/dL [facility] RDW CV 12.4 11.1 - 14.9 % [facility] RDW SD 40.1 35.7 - 48.1 fL [facility] NRBC abs 0.00 0.00 - 0.01 K/cumm [facility] Blood 04/06/2024 2:29 AM [employer] 04/06/2024 2:29 AM [employer] us Marissa Montenegro Iam DO LAB BLOOD ORDERABLES F inal Result [facility] [address] Department [place] [address] * (ABNORMAL) Renal function panel (04/06/2024 2:29 AM [employer]) Sodium 128(L) 135 - 145 mmol/L Potassium, pl 4.6 3.3 - 4.9 mmol/L [facility] Chloride 96(L) 97 - 110 mmol/L [facility] CO2 20(L) 22 - 32 mmol/L [facility] Anion gap 12 2 - 15 mmol/L [facility] BUN 29(H) 6 - 25 mg/dL [facility] Creatinine 1.15 0.80 - 1.30 mg/dL [facility] Glucose 144 70 - 199 mg/dL [facility] Comment: Interpretive Data Fasting glucose >/= 126 mg/dl is diagnostic for diabetes. Fasting is defined as no caloric intake [...] 2022. Calcium 8.5 8.5 - 10.3 mg/dL [facility] Phosphorus, pl 2.8 2.3 - 4.5 mg/dL [facility] Albumin 3.0(L) 3.5 - 5.0 g/dL [facility] Blood 04/06/2024 2:29 AM [employer] 04/06/2024 2:29 AM [employer] Marissa Montenegro Savedaily DO LAB BLOOD ORDERABLES F inal Result Performing Organization Address [facility] Co de Phone Number [facility] [address] [facility] [place] [address] * (ABNORMAL) Blood gas, venous (04/06/2024 2:15 AM [employer]) pH, Venous 7.40 7.32 - 7.43 PCO2, Venous 37(L) 40 - 50 mmHg [facility] PO2, Venous 75 mmHg [facility] Comment: Interpretive Data No Reference Range Established Current Interpretive Data was last revised on 2017. HCO3 Venous, Calculated 23 20 - 30 mmol/L [facility] BE, venous -2 mmol/L [facility] Comment: nterpretive Data No Reference Range Established Current Interpretive Data was last revised on 2017. Blood 04/06/2024 2:15 AM [employer] 04/06/2024 2:25 AM [employer] Marissatracy Montenegro Savedaily DO LAB BLOOD ORDERABLES F inal Result Performing Organization Address [facility] de Phone Number [facility] [address] [facility] [place], [place] [id number] * POCT glucose (04/05/2024 12:05 PM [employer]) Glucose, POC 77 70 - 199 mg/dL Comment: For Glucose values <35 mg/dl when Hematocrit is >60 mg/dl,the test may not accurately detect significant hypoglycemia,and testing in the Laboratory should be considered if clinically indicated. Blood 04/05/2024 12:0 5 PM [employer] 04/05/2024 12:05 PM [employer] Marissa Moni Savedaily DO LAB POCT ORDERABLES - DEVICE Final Result Performing Organization Address [facility] Co de Phone Number [facility] [address] [place] [address] * XR Kub (04/05/2024 10:23 AM [employer]) Anatomical Region Laterality Modality Body, Abdomen N/A Computed Radiogr aphy 04/05/2024 10:4 4 AM [employer] Impressions 04/05/2024 10:44 AM [employer] Interval placement of a Dobbhoff catheter. Its [...] Eloisa Tineo M.D. Narrative 04/05/2024 10:44 AM [employer] EXAMINATION: KUB-abdomen one view HISTORY: Dobbhoff COMPARISON: [...] Barium Swallow W Video (04/05/2024 9:52 AM [employer]) Anatomical Region Laterality Modality Head and Neck N/A Radio Fluoroscop y 04/05/2024 10:4 6 AM [employer] Impressions 04/05/2024 2:51 PM [employer] 1. There is transglottic aspiration with thin [...] Mo Stahl M.D. Narrative 04/05/2024 2:51 PM [employer] EXAMINATION: MODIFIED BARIUM SWALLOW 04/05/2024 HISTORY: Dysphagia. [...] it. Electronically signed by: Mo Stahl M.D. us Krishna Salcedo MD IM FLUOROSCOPY PROCEDURES F inal Result * POCT glucose (04/05/2024 4:30 AM [employer]) Glucose, POC 71 70 - 199 mg/dL Comment: For Glucose values <35 mg/dl when Hematocrit is >60 mg/dl,the test may not accurately detect significant hypoglycemia,and testing in the Laboratory should be considered if clinically indicated. Blood 04/05/2024 4:30 AM [employer] 04/05/2024 4:30 AM [employer] us Krishna Salcedo MD LAB POCT ORDERABLES - DEVICE Final Result Performing Organization Address [facility]/ZIP Co de Phone Number [facility] [address] [place] [address] * eGFR (04/05/2024 3:39 AM [employer]) eGFR 65 >=60 mL/min/1. 73 m2 Comment: Interpretive Data Reference Interval Normal >/= 90 mL/min/1.73m2 Mildly decreased* 60 - 89 mL/min/1.73m2 Mildly to moderately decreased 45 - 59 mL/min/1.73m2 Moderately to severely decreased 30 - 44 mL/min/1.73m2 Severely decreased 15 - 29 mL/min/1.73m2 Kidney Failure < 15 mL/min/1.73m2 *Relative to young adult level Estimated glomerular [...] last reviewed 2021. Blood 04/05/2024 3:39 AM [employer] 04/05/2024 3:53 AM [employer] Tian Long MD LAB BLOOD ORDERABLES Final Result Performing Organization Address City/[facility]/ZIP Co de Phone Number [facility] [address] [facility] [place] [address] * (ABNORMAL) CBC without differential (04/05/2024 3:39 AM [employer]) [facility] WBC 8.8 3.8 - 9.9 K/cumm Hgb 10.5(L) 13.0 - 17.5 g/dL [facility] Hct 32.3(L) 38.9 - 50.3 % [facility] Plt 284 150 - 400 K/cumm [facility] MPV 8.8(L) 9.1 - 12.3 fL [facility] RBC 3.67(L) 4.30 - 5.80 M/cumm [facility] MCV 88.0 81.3 - 96.4 fL [facility] MCH 28.6 27.1 - 33.3 pg [facility] MCHC 32.5 32.3 - 35.7 g/dL [facility] RDW CV 12.3 11.1 - 14.9 % [facility] RDW SD 39.8 35.7 - 48.1 fL [facility] NRBC abs 0.00 0.00 - 0.01 K/cumm [facility] Blood 04/05/2024 3:39 AM [employer] 04/05/2024 3:53 AM [employer] us Krishna Salcedo MD LAB BLOOD ORDERABLES Final R esult Performing Organization Address City/[facility]/ZIP Co de Phone Number [facility] [address] [facility] [place] [address] * Magnesium (04/05/2024 3:39 AM [employer]) [facility] Magnesium 2.2 1.4 - 2.5 mg/dL Blood 04/05/2024 3:39 AM [employer] 04/05/2024 3:53 AM [employer] Marissa Vitale DO LAB BLOOD ORDERABLES F inal Result Performing Organization Address City/[facility]/ZIP Co de Phone Number [facility] [address] Department [place] [address] * (ABNORMAL) Renal function panel (04/05/2024 3:39 AM [employer]) Pathologist [facility] [place] Sodium 131(L) 135 - 145 mmol/L Potassium, pl 4.5 3.3 - 4.9 mmol/L [facility] Chloride 97 97 - 110 mmol/L [facility] CO2 20(L) 22 - 32 mmol/L [facility] Anion gap 14 2 - 15 mmol/L [facility] BUN 19 6 - 25 mg/dL [facility] Creatinine 1.11 0.80 - 1.30 mg/dL [facility] Glucose 63(L) 70 - 199 mg/dL [facility] Comment: Interpretive Data Fasting glucose >/= 126 mg/dl is diagnostic for diabetes. Fasting is defined as no caloric intake [...] 2022. Calcium 8.7 8.5 - 10.3 mg/dL [facility] Phosphorus, pl 3.3 2.3 - 4.5 mg/dL [facility] Albumin 3.3(L) 3.5 - 5.0 g/dL [facility] Blood 04/05/2024 3:39 AM [employer] 04/05/2024 3:53 AM [employer] us Tian Long MD LAB BLOOD ORDERABLES Final Result [facility] [address] Department [place] [address] * eGFR (04/04/2024 4:18 PM [employer]) Pathologist [facility] [place] eGFR 61 >=60 mL/min/1. 73 m2 Comment: Interpretive Data Reference Interval Normal >/= 90 mL/min/1.73m2 Mildly decreased* 60 - 89 mL/min/1.73m2 Mildly to moderately decreased 45 - 59 mL/min/1.73m2 Moderately to severely decreased 30 - 44 mL/min/1.73m2 Severely decreased 15 - 29 mL/min/1.73m2 Kidney Failure < 15 mL/min/1.73m2 *Relative to young adult level Estimated glomerular [...] last reviewed 2021. Blood 04/04/2024 4:18 PM [employer] 04/04/2024 4:30 PM [employer] Tian Long MD LAB BLOOD ORDERABLES Final Result [facility] [address] Department [place] [address] * (ABNORMAL) Renal function panel (04/04/2024 4:18 PM [employer]) Sodium 131(L) 135 - 145 mmol/L Potassium, pl 4.7 3.3 - 4.9 mmol/L [facility] Chloride 99 97 - 110 mmol/L [facility] CO2 20(L) 22 - 32 mmol/L [facility] Anion gap 12 2 - 15 mmol/L [facility] BUN 22 6 - 25 mg/dL [facility] Creatinine 1.18 0.80 - 1.30 mg/dL [facility] Glucose 76 70 - 199 mg/dL [facility] Comment: Interpretive Data Fasting glucose >/= 126 mg/dl is diagnostic for diabetes. Fasting is defined as no caloric intake [...] 2022. Calcium 8.6 8.5 - 10.3 mg/dL [facility] Phosphorus, pl 4.0 2.3 - 4.5 mg/dL [facility] Albumin 3.0(L) 3.5 - 5.0 g/dL [facility] Blood 04/04/2024 4:18 PM [employer] 04/04/2024 4:30 PM [employer] Tian Long MD LAB BLOOD ORDERABLES Final Result Performing Organization Address [facility] Co de Phone Number [facility] [address] Department of Laboratories [place], [place] [phone] * Sodium, urine, random (04/04/2024 6:11 AM [employer]) Sodium, ur 129 mmol/L Comment: Interpretive Data No reference range established. Current interpretive data was last revised 2018. Urine 04/04/2024 6:11 AM [employer] 04/04/2024 6:39 AM [employer] Tian Long MD LAB URINE ORDERABLES Final Result Performing Organization Address [facility] Co de Phone Number [facility] [address] [place] [address] * Osmolality, urine (04/04/2024 6:11 AM [employer]) Osmo, ur 549 300 - 800 mOsm/kg Urine 04/04/2024 6:11 AM [employer] 04/04/2024 6:39 AM [employer] Tian Long MD LAB URINE ORDERABLES Final Result Performing Organization Address [facility]/ZIP Co de Phone Number [facility] [address] [place] [address] * Creatinine, urine, random (04/04/2024 6:11 AM [employer]) Creatinine Ur 71.0 mg/dL Comment: Interpretive Data No reference range established. Current interpretive data was last revised 2018. Urine 04/04/2024 6:11 AM [employer] 04/04/2024 6:39 AM [employer] Tian Long MD LAB URINE ORDERABLES Final Result Performing Organization Address [facility] Co de Phone Number [facility] [address] [place] [address] * eGFR (04/04/2024 2:56 AM [employer]) eGFR 60 >=60 mL/min/1. 73 m2 Comment: Interpretive Data Reference Interval Normal >/= 90 mL/min/1.73m2 Mildly decreased* 60 - 89 mL/min/1.73m2 Mildly to moderately decreased 45 - 59 mL/min/1.73m2 Moderately to severely decreased 30 - 44 mL/min/1.73m2 Severely decreased 15 - 29 mL/min/1.73m2 Kidney Failure < 15 mL/min/1.73m2 *Relative to young adult level Estimated glomerular [...] last reviewed 2021. Blood 04/04/2024 2:56 AM [employer] 04/04/2024 3:16 AM [employer] Tian Long MD LAB BLOOD ORDERABLES Final Result Performing Organization Address City/[facility] Co de Phone Number [facility] [address] [facility] [place] [address] * (ABNORMAL) CBC without differential (04/04/2024 2:56 AM [employer]) WBC 8.0 3.8 - 9.9 K/cumm Hgb 10.9(L) 13.0 - 17.5 g/dL [facility] Hct 32.5(L) 38.9 - 50.3 % [facility] Plt 278 150 - 400 K/cumm [facility] MPV 9.2 9.1 - 12.3 fL [facility] RBC 3.70(L) 4.30 - 5.80 M/cumm [facility] MCV 87.8 81.3 - 96.4 fL [facility] MCH 29.5 27.1 - 33.3 pg [facility] MCHC 33.5 32.3 - 35.7 g/dL [facility] RDW CV 12.6 11.1 - 14.9 % [facility] RDW SD 40.3 35.7 - 48.1 fL [facility] NRBC abs 0.00 0.00 - 0.01 K/cumm [facility] Blood 04/04/2024 2:56 AM [employer] 04/04/2024 3:16 AM [employer] Krishna Salcedo MD LAB BLOOD ORDERABLES Final R esult Performing Organization Address [facility] Co de Phone Number [facility] [address] [place] [address] * (ABNORMAL) TSH (04/04/2024 2:56 AM [employer]) Pathologist [facility] [place] Thyroid Stimulating Hormone 11.20(H) 0.30 - 4.20 mcIUnit/mL Blood 04/04/2024 2:56 AM [employer] 04/04/2024 3:16 AM [employer] Krishna Salcedo MD LAB BLOOD ORDERABLES Final R esult [facility] [address] Department [place] [address] * (ABNORMAL) Renal function panel (04/04/2024 2:56 AM [employer]) [facility] Sodium 125(L) 135 - 145 mmol/L Potassium, pl 4.6 3.3 - 4.9 mmol/L [facility] Chloride 94(L) 97 - 110 mmol/L [facility] CO2 20(L) 22 - 32 mmol/L [facility] Anion gap 11 2 - 15 mmol/L [facility] BUN 20 6 - 25 mg/dL [facility] Creatinine 1.20 0.80 - 1.30 mg/dL [facility] Glucose 70 70 - 199 mg/dL [facility] Comment: Interpretive Data Fasting glucose >/= 126 mg/dl is diagnostic for diabetes. Fasting is defined as no caloric intake [...] 2022. Calcium 8.5 8.5 - 10.3 mg/dL [facility] Phosphorus, pl 3.9 2.3 - 4.5 mg/dL [facility] Albumin 3.0(L) 3.5 - 5.0 g/dL [facility] Blood 04/04/2024 2:56 AM [employer] 04/04/2024 3:16 AM [employer] Tian Long MD LAB BLOOD ORDERABLES Final Result [facility] [address] Department [place] [address] * eGFR (04/03/2024 5:59 PM [employer]) eGFR 65 >=60 mL/min/1. 73 m2 Comment: Interpretive Data Reference Interval Normal >/= 90 mL/min/1.73m2 Mildly decreased* 60 - 89 mL/min/1.73m2 Mildly to moderately decreased 45 - 59 mL/min/1.73m2 Moderately to severely decreased 30 - 44 mL/min/1.73m2 Severely decreased 15 - 29 mL/min/1.73m2 Kidney Failure < 15 mL/min/1.73m2 *Relative to young adult level Estimated glomerular [...] last reviewed 2021. Blood 04/03/2024 5:59 PM [employer] 04/03/2024 6:07 PM [employer] us Krishna Salcedo MD LAB BLOOD ORDERABLES Final R esult [facility] [address] Department [place] [address] * (ABNORMAL) Renal function panel (04/03/2024 5:59 PM [employer]) Pathologist [facility] [place] Sodium 126(L) 135 - 145 mmol/L Potassium, pl 4.6 3.3 - 4.9 mmol/L [facility] Chloride 94(L) 97 - 110 mmol/L [facility] CO2 20(L) 22 - 32 mmol/L [facility] Anion gap 12 2 - 15 mmol/L [facility] BUN 17 6 - 25 mg/dL [facility] Creatinine 1.11 0.80 - 1.30 mg/dL [facility] Glucose 93 70 - 199 mg/dL [facility] Comment: Interpretive Data Fasting glucose >/= 126 mg/dl is diagnostic for diabetes. Fasting is defined as no caloric intake [...] 2022. Calcium 8.3(L) 8.5 - 10.3 mg/dL [facility] Phosphorus, pl 3.8 2.3 - 4.5 mg/dL [facility] Albumin 3.0(L) 3.5 - 5.0 g/dL [facility] Blood 04/03/2024 5:59 PM [employer] 04/03/2024 6:07 PM [employer] Krishna Slacedo MD LAB BLOOD ORDERABLES Final R esult Performing Organization Address [facility]/ZIP Co de Phone Number [facility] [address] [place] [address] * Aerobic culture and gram stain Sputum Lung (04/03/2024 3:55 PM [employer]) Pathologist [facility] [place] Direct Specimen Exam Stain: Many polymorphonuclear leukocytes seen. Many Gram Positive Cocci Many Gram Negative Bacilli Report Final Report: Heavy growth normal krupa [facility] Sputum (Lung) 04/03/2024 3:5 5 PM [employer] 04/03/2024 4:31 PM [employer] Krishna Salcedo MD LAB MICROBIOLOGY - GENERAL O RDERABLES Final Result Performing Organization Address City/[facility]/ZIP Co de Phone Number [facility] [address] [place] [address] * MRSA Only (Staphylococcus aureus) PCR Nasal (04/03/2024 3:55 PM [employer]) PCR Scrn, Methicillin resistant Staphylococcus aureus (MRSA) Not Detected Not Detected Comment: Interpretive Data Testing performed using Nucleic Acid Amplification with the [employer] Xpert MRSA NxG Assay. This assay detects target DNA from mecA, mecC and the SCCmec insertion site of Staphylococcus aureus using Real-Time PCR and has been cleared by the FDA. Performance characteristics have been verified by the [facility]. Current Interpretive Data was last revised on 2023 Nasal 04/03/2024 3:55 PM [employer] 04/03/2024 4:31 PM [employer] Krishna Salcedo MD LAB MICROBIOLOGY - GENERAL O RDERABLES Final Result Performing Organization Address City/[facility]/ZIP Co de Phone Number [facility] [address] Department [employer] [place], [place] [phone] * Cortisol - Add on lab test (04/03/2024 2:48 PM [employer]) Acceptable Yes Blood 04/03/2024 2:48 PM [employer] 04/03/2024 2:48 PM [employer] Narrative [facility] - 04/03/2024 2:48 PM [employer] Name of Test->Cortisol Tian Long MD LAB BLOOD ORDERABLES Final Result Performing Organization Address [facility] Co de Phone Number [facility] [address] [employer] [place], [place] [id number] * TSH reflex Free T4 - Add on lab test (04/03/2024 2:48 PM [employer]) Acceptable Yes Blood 04/03/2024 2:48 PM [employer] 04/03/2024 2:48 PM [employer] Narrative [facility] 04/03/2024 2:48 PM [employer] Name of Test->TSH reflex Free T4 Tian Long MD LAB BLOOD ORDERABLES Final Result Performing Organization Address [facility] Co de Phone Number [facility] [address] Department [employer] [place], [place] [phone] * Sodium, urine, random - Add on lab test (04/03/2024 2:48 PM [employer]) Acceptable Yes Blood 04/03/2024 2:48 PM [employer] 04/03/2024 2:48 PM [employer] Narrative [facility] - 04/03/2024 2:48 PM [employer] Name of Test->Sodium, urine, random Tian Long MD LAB BLOOD ORDERABLES Final Result Performing Organization Address City/[facility] Co de Phone Number [facility] [address] [place] [address] * Osmolality, urine - Add on lab test (04/03/2024 2:48 PM [employer]) Pathologist [facility] [place] Acceptable Yes Blood 04/03/2024 2:48 PM [employer] 04/03/2024 2:48 PM [employer] Narrative [facility] 04/03/2024 2:48 PM [employer] Name of Test->Osmolality, urine Tian Long MD LAB BLOOD ORDERABLES Final Result Performing Organization Address [facility] Co de Phone Number [facility] [address] Department [employer] [place], [place] [phone] * TRANSTHORACIC ECHO (TTE) COMPLETE W DOPPLER/CF WO CONTRAST (04/03/2024 2:46 PM [employer]) Pathologist [facility] [place] LV EF 50-55 % CONS SCIMAGE Anatomical Region Laterality Modality Ultrasound 04/03/2024 12:2 5 PM [employer] Narrative 04/03/2024 7:33 PM [employer] [facility] [address] [place] [address] ECHOCARDIOGRAM Patient Name: GIAN LEE E : 1940 (83y 8m) Gender: M Study Date: 04/03/2024 12:25:32 PM Ht(Inch): 68 Wt(Lb): 166.01 BSA: 1.9 [employer] Manager: CHANDU Location: [id number] Order Provider: KRISHNA SALCEDO BMI: 25.24 BP: 140/74 Ref Provider: CRIS KRISHNA - PROCEDURES: Echocardiographic Report: Transthoracic Echocardiogram with complete 2D, M-Mode, Spectral and Color Flow Doppler examination. INDICATIONS: aortic root repair. MEASUREMENTS: 2D/MM Value Range Doppler Value Range IVSd 2D 1.32 cm [ 0.60 - 1.00 ] AV Peak Jeremy 2 m/s [ 1 - 2 ] LVIDd 2D 4.99 cm [ 4.20 - 5.80 ] AV Peak PG 19 mmHg LVIDs 2D 3.71 cm [ 2.50 - 4.00 ] AV Mean PG 10 mmHg LVPWd 2D 1.34 cm [ 0.60 - 1.00 ] AV VTI 31.9 cm Estimated EF 50-55 % STEPHEN VTI 2.1 cm2 LA Dimension 2D 5.41 cm [ 3.00 - 4.00 ] LVOT Peak Jeremy 1.16 m/s [ 0.70 - 1.10 ] AoR Diam 2D 4.24 cm [ 3.10 - 3.70 ] LVOT Diam 2.2 cm AoR Diam 2D Index 2.23 LVOT Peak PG 5 mmHg TAPSE 1.24 cm [ 1.71 - 5.00 ] LVOT VTI 18.5 cm MV Peak PG 6 mmHg MV Mean [...] S' 0.06 m/s 2D/MM Value Range Doppler Value Range - FINDINGS: Study Quality: Technically good study. [...] By: Gian Trevino MD 04/03/2024 7:32:32 PM [employer] Procedure Note Gian Trevino MD - 04/03/2024 [facility] [address] [place] [address] ECHOCARDIOGRAM Patient Name: ROSAGIAN E : 1940 (83y 8m) Gender: M Study Date: 04/03/2024 12:25:32 PM Ht(Inch): 68 Wt(Lb): 166.01 BSA: 1.9 [employer] Marketing Manager: CHANDU Location: [id number] Order Provider: KRISHNA SALCEDO BMI: 25.24 BP: [...] By: Gian Trevino MD 04/03/2024 7:32:32 PM [employer] us Krishna Salcedo MD CV ECHO PROCEDURES Final Res ult * (ABNORMAL) Lactate (04/03/2024 11:06 AM [employer]) Pathologist [facility] [place] Lactate 0.6(L) 0.7 - 2.0 mmol/L Blood 04/03/2024 11:0 6 AM [employer] 04/03/2024 11:15 AM [employer] Krishna Salcedo MD LAB BLOOD ORDERABLES Final R esult Performing Organization Address City/[facility]/ZIP Co de Phone Number [facility] [address] [place] [address] * eGFR (04/03/2024 11:06 AM [employer]) [facility] eGFR 75 >=60 mL/min/1. 73 m2 Comment: Interpretive Data Reference Interval Normal >/= 90 mL/min/1.73m2 Mildly decreased* 60 - 89 mL/min/1.73m2 Mildly to moderately decreased 45 - 59 mL/min/1.73m2 Moderately to severely decreased 30 - 44 mL/min/1.73m2 Severely decreased 15 - 29 mL/min/1.73m2 Kidney Failure < 15 mL/min/1.73m2 *Relative to young adult level Estimated glomerular [...] reviewed 2021. Blood 04/03/2024 11:0 6 AM [employer] 04/03/2024 11:23 AM [employer] Krishna Salcedo MD LAB BLOOD ORDERABLES Final R esult [facility] [address] [place] [address] * (ABNORMAL) Pro B-type natriuretic peptide (04/03/2024 11:06 AM [employer]) NT-proBNP 1,928(H) <=450 pg/mL Comment: Interpretive Comments: A. Dyspnea in Acute Care Setting All Ages: < 300 pg/ml, acute heart failure unlikely. < 50 yrs: 300 - 450 pg/ml, further investigation warranted. > 450 pg/ml, acute heart failure likely. 50 - 74 yrs: 300 - 900 pg/ml, further investigation warranted. > 900 pg/ml, acute heart failure likely . > or = 75 yrs: 450 - 1800 pg/ml, further investigation warranted. > 1800 pg/ml, acute heart failure likely. B. Non-acute Setting < 75 yrs < 125 pg/ml, rules out heart failure. > or = 125 pg/ml, further investigation warranted. > or = 75 yrs < 450 pg/ml, rules out heart failure. > or = 450 pg/ml, further investigation [...] as advanced age. - References: 1. Caitie JL et.al. Eur Heart J. 2006:27:330-337. 2. Russell RW, Mikaela MELARA. J. AM Luciana Cardiol: Cardiovasc Imag. 2009;2: 216- 225. Interpretive Data Last Revised Date: 2017. Blood 04/03/2024 11:0 6 AM [employer] 04/03/2024 11:23 AM [employer] us Krishna Salcedo MD LAB BLOOD ORDERABLES Final R esult [facility] [address] [place] [address] * (ABNORMAL) Thyroid Function [place] (04/03/2024 11:06 AM [employer]) TSH 10.50(H) 0.30 - 4.20 mcIUnit/mL Blood 04/03/2024 11:0 6 AM [employer] 04/03/2024 11:23 AM [employer] Krishna Salcedo MD LAB BLOOD ORDERABLES Final R esult [facility] [address] Department [place] [address] * (ABNORMAL) Urinalysis reflex to microscopic and culture Urine (04/03/2024 11:06 AM [employer]) Pathologist [facility] [place] Color, ur Yellow Yellow Clarity, ur Clear Clear [facility] Specific gravity, ur 1.042(H) 1.003 - 1.030 [facility] pH, urine 7.0 [facility] Comment: Interpretive Data U rine pH is affected by diet, medications, systemic acid-base disturbances, and renal tubular function. pH may affect urinary stone formation. For example, urine pH below 6.0 may help reduce the tendency for calcium phosphate stones and pH greater than 6.0 may reduce the tendency for uric acid stone formation. Source: [facility] Current Interpretive Data was last revised on 2017 Protein, ur ql Trace Negative [facility] Glucose, ur ql Negative Negative [facility] Ketones, ur Negative Negative [facility] Bilirubin, ur Negative Negative [facility] Blood, ur 3+(A) Negative [facility] Urobilinogen, ur <2.0 <2.0 mg/dL [facility] Nitrite, ur Negative Negative [facility] Leukocyte esterase, ur Negative Negative [facility] UA reflex comment Reflex to microscopic UA will be performed. [facility] Urine 04/03/2024 11:0 6 AM [employer] 04/03/2024 11:06 AM [employer] us Krishna Salcedo MD LAB MICROBIOLOGY - GENERAL O RDERABLES Final Result Performing Organization Address [facility]/ZIP Co de Phone Number [facility] [address] [place] [address] * Strep pneumoniae antigen, urine Urine (04/03/2024 11:06 AM [employer]) S. pneumoniae Ag Negative Negative Comment: Interpretive Data A positive result is indicative of pneumococcal pneumonia in patients with severe CAP. Cross-reactivity with closely related Streptococcus bacteria may occur. A negative result suggests no current or recent pneumococcal infection but cannot rule out infection with S. pneumoniae. The results of this testing should be used in conjunction with clinical findings and other diagnostic testing, including microbiologic culture. Current Interpretive Data was last revised on 2022 Urine 04/03/2024 11:0 6 AM [employer] 04/03/2024 11:32 AM [employer]BER Krishna Salcedo MD LAB MICROBIOLOGY - GENERAL O RDERABLES Final Result Performing Organization Address [facility] Phone Number [facility] [address] [facility] [employer] [place], [place] [phone] * Legionella antigen Urine (04/03/2024 11:06 AM [employer]) Pathologist [facility] [place] Legionella Ag Negative Negative Comment: Interpretive Data This test detects only Legionella pneumophila serogroup 1 antigen. Current interpretive data was last revised on 2019. Urine 04/03/2024 11:0 6 AM [employer] 04/03/2024 11:32 AM [employer]BER Krishna Salcedo MD LAB MICROBIOLOGY - GENERAL O RDERABLES Final Result Performing Organization Address [facility] de Phone Number [facility] [address] [place] [address] * Sodium, urine, random (04/03/2024 11:06 AM [employer]) Pathologist [facility] [place] Sodium, ur 145 mmol/L Comment: Interpretive Data No reference range established. Current interpretive data was last revised 2018. Urine 04/03/2024 11:0 6 AM [employer] 04/03/2024 3:13 PM [employer] Krishna Salcedo MD LAB URINE ORDERABLES Final R esult Performing Organization Address [facility]/ZIP Co de Phone Number [facility] [address] [facility] [place] [address] * Osmolality, urine (04/03/2024 11:06 AM [employer]) Pathologist [facility] [place] Osmo, ur 526 300 - 800 mOsm/kg Urine 04/03/2024 11:0 6 AM VESSEL CREW MEMBER 04/03/2024 3:14 PM VESSEL CREW MEMBER Krishna Salcedo MD LAB URINE ORDERABLES Final R esult Performing Organization Address [facility] de Phone Number [facility] [address] [facility] [place] [address] * (ABNORMAL) Urinalysis, microscopic only (04/03/2024 11:06 AM VESSEL CREW MEMBER) [facility] WBC, ur 0-5 0 - 5 /HPF RBC, ur >50(A) 0 - 2 /HPF [facility] Bacteria, ur Trace(A) [facility] Culture Reflex Comment Reflex conditions for urine culture (WBC >10) not met. [facility] Urine 04/03/2024 11:0 6 AM VESSEL CREW MEMBER 04/03/2024 11:23 AM VESSEL CREW MEMBER Krishna Salcedo MD LAB URINE ORDERABLES Final R esult Performing Organization Address [facility] de Phone Number [facility] [address] [place] [address] * (ABNORMAL) aPTT (04/03/2024 11:06 AM VESSEL CREW MEMBER) Pathologist [facility] [place] aPTT 39(H) 28 - 38 sec Comment: Interpretive Data Heparin therapeutic range: 66.0 - 100.0 seconds. Range based on correlation with therapeutic heparin activity range of 0.3 - 0.7 Units/mL. Current interpretive data was last revised on 2022. Blood 04/03/2024 11:0 6 AM VESSEL CREW MEMBER 04/03/2024 11:22 AM VESSEL CREW MEMBER Krishna Salcedo MD LAB BLOOD ORDERABLES Final R esult [facility] [address] Department [place] [address] * (ABNORMAL) Protime-INR (04/03/2024 11:06 AM VESSEL CREW MEMBER) Pathologist [facility] [place] PT 17.7(H) 9.7 - 13.0 sec INR 1.62(H) 0.90 - 1.20 [facility] Comment: Interpretive data Oral anticoagulant therapeutic ranges: Venous thromboembolism prophylaxis or treatment: 2.0-3.0 CARDIOLOGY Standard range: 2.0-3.0 High-intensity range: 2.5-3.5 Refer to indication-specific guidelines for appropriate target ranges for prosthetic heart valve replacement. Current interpretive data was last revised on 2019. Blood 04/03/2024 11:0 6 AM VESSEL CREW MEMBER 04/03/2024 11:22 AM VESSEL CREW MEMBER Krishna Salcedo MD LAB BLOOD ORDERABLES Final R esult [facility] [address] Department [place] [address] * (ABNORMAL) CBC without differential (04/03/2024 11:06 AM VESSEL CREW MEMBER) Pathologist [facility] [place] WBC 8.6 3.8 - 9.9 K/cumm Hgb 10.0(L) 13.0 - 17.5 g/dL [facility] Hct 30.8(L) 38.9 - 50.3 % [facility] Plt 249 150 - 400 K/cumm [facility] MPV 9.1 9.1 - 12.3 fL [facility] RBC 3.43(L) 4.30 - 5.80 M/cumm [facility] MCV 89.8 81.3 - 96.4 fL [facility] MCH 29.2 27.1 - 33.3 pg [facility] MCHC 32.5 32.3 - 35.7 g/dL [facility] RDW CV 12.7 11.1 - 14.9 % [facility] RDW SD 41.0 35.7 - 48.1 fL [facility] NRBC abs 0.00 0.00 - 0.01 K/cumm [facility] Blood 04/03/2024 11:0 6 AM VESSEL CREW MEMBER 04/03/2024 11:23 AM VESSEL CREW MEMBER Narrative [facility] - 04/03/2024 11:32 AM VESSEL CREW MEMBER Baseline prior to rivaroxaban initiation Krishna Salcedo MD LAB BLOOD ORDERABLES Final R esult Performing Organization Address City/[facility]/ZIP Co de Phone Number [facility] [address] [facility] [address] [place], [place] [id number] * Type and screen (04/03/2024 11:06 AM VESSEL CREW MEMBER) ABO Rh O Positive Alex, indirect Negative [facility] Blood 04/03/2024 11:0 6 AM VESSEL CREW MEMBER 04/03/2024 11:25 AM VESSEL CREW MEMBER Narrative [facility] - 04/03/2024 12:03 PM VESSEL CREW MEMBER Has the patient had Daratumumab or Isatuximab in the past 6 months?->Unknown Krishna Salcedo MD LAB BLOOD BANK TEST ORDERABL ES Final Result Performing Organization Address City/[facility]/ZIP Co de Phone Number [facility] [address] [facility] [place] [address] * Uric acid (04/03/2024 11:06 AM VESSEL CREW MEMBER) Uric acid 3.4 3.0 - 8.0 mg/dL Blood 04/03/2024 11:0 6 AM VESSEL CREW MEMBER 04/03/2024 11:23 AM VESSEL CREW MEMBER Krishna Salcedo MD LAB BLOOD ORDERABLES Final R esult Performing Organization Address City/[facility]/ZIP Co de Phone Number [facility] [address] [facility] [place] [address] * T4, free (04/03/2024 11:06 AM VESSEL CREW MEMBER) [facility] Free T4 0.95 0.90 - 1.70 ng/dL Blood 04/03/2024 11:0 6 AM VESSEL CREW MEMBER 04/03/2024 11:23 AM VESSEL CREW MEMBER Narrative [facility] - 04/03/2024 2:33 PM VESSEL CREW MEMBER This test was reflexed from a TSH result. Krishna Salceod MD LAB BLOOD ORDERABLES Final R esult [facility] [address] [facility] [place] [address] * Phosphorus (04/03/2024 11:06 AM VESSEL CREW MEMBER) [facility] Phosphorus, pl 3.5 2.3 - 4.5 mg/dL Blood 04/03/2024 11:0 6 AM VESSEL CREW MEMBER 04/03/2024 11:23 AM VESSEL CREW MEMBER Krishna Salcedo MD LAB BLOOD ORDERABLES Final R esult Performing Organization Address City/[facility]/ZIP Co de Phone Number [facility] [address] [facility] [place] [address] * Magnesium (04/03/2024 11:06 AM VESSEL CREW MEMBER) [facility] Magnesium 2.0 1.4 - 2.5 mg/dL Blood 04/03/2024 11:0 6 AM VESSEL CREW MEMBER 04/03/2024 11:23 AM VESSEL CREW MEMBER Krishna Salcedo MD LAB BLOOD ORDERABLES Final R esult [facility] [address] [place] [address] * Cortisol (04/03/2024 11:06 AM VESSEL CREW MEMBER) [facility] Cortisol 8.3 4.8 - 19.5 mcg/dl Blood 04/03/2024 11:0 6 AM VESSEL CREW MEMBER 04/03/2024 11:23 AM VESSEL CREW MEMBER Krishna Salcedo MD LAB BLOOD ORDERABLES Final R esult Performing Organization Address [facility] Co de Phone Number [facility] [address] [facility] [address] [place], [place] [id number] * Bilirubin, direct (04/03/2024 11:06 AM VESSEL CREW MEMBER) [facility] Bilirubin, direct 0.2 0.1 - 0.3 mg/dL Blood 04/03/2024 11:0 6 AM VESSEL CREW MEMBER 04/03/2024 11:23 AM VESSEL CREW MEMBER Krishna Salcedo MD LAB BLOOD ORDERABLES Final R esult Performing Organization Address [facility] de Phone Number [facility] [address] [facility] [place] [address] * (ABNORMAL) Comprehensive metabolic panel (04/03/2024 11:06 AM VESSEL CREW MEMBER) [facility] Sodium 122(L) 135 - 145 mmol/L Potassium, pl 4.4 3.3 - 4.9 mmol/L [facility] Chloride 89(L) 97 - 110 mmol/L [facility] CO2 21(L) 22 - 32 mmol/L [facility] Anion gap 12 2 - 15 mmol/L [facility] BUN 17 6 - 25 mg/dL [facility] Creatinine 0.99 0.80 - 1.30 mg/dL [facility] Glucose 79 70 - 199 mg/dL [facility] Comment: Interpretive Data Fasting glucose >/= 126 mg/dl is diagnostic for diabetes. Fasting is defined as no caloric intake [...] 2022. Calcium 8.1(L) 8.5 - 10.3 mg/dL [facility] Bilirubin, total 0.5 0.1 - 1.2 mg/dL [facility] Protein, pl 5.6(L) 6.5 - 8.5 g/dL [facility] Albumin 3.0(L) 3.5 - 5.0 g/dL [facility] Alk phos 67 40 - 130 Units/L [facility] ALT 19 7 - 55 Units/L [facility] AST 31 10 - 50 Units/L [facility] Blood 04/03/2024 11:0 6 AM VESSEL CREW MEMBER 04/03/2024 11:23 AM VESSEL CREW MEMBER us Krishna Salcedo MD LAB BLOOD ORDERABLES Final R esult [facility] [address] [place] [address] * X-ray chest 1 view (Portable) (04/03/2024 10:23 AM VESSEL CREW MEMBER) Anatomical Region Laterality Modality Body, Chest N/A Computed Radiogr aphy 04/03/2024 10:3 4 AM VESSEL CREW MEMBER Impressions 04/03/2024 10:34 AM VESSEL CREW MEMBER Persistent left pleural effusion and basilar atelectasis with improving aeration of the right lung. Electronically signed by: Isiah David M.D. Narrative 04/03/2024 10:34 AM VESSEL CREW MEMBER EXAMINATION: XR CHEST 1 VIEW HISTORY: Pneumonia [...] prostheses. Contrast present within the imaged colon. Procedure Note [...] lung. Electronically signed by: Isiah David M.D. us Krishna Salcedo MD IMG XR PROCEDURES Final Resu lt * XR Chest 1 View - Portable - in AM (03/27/2024 6:38 AM VESSEL CREW MEMBER) Anatomical Region Laterality Modality Body, Chest N/A Computed Radiogr aphy 03/27/2024 7:33 AM VESSEL CREW MEMBER Impressions 03/27/2024 7:33 AM VESSEL CREW MEMBER Bibasilar atelectasis with persistent left pleural effusion. Electronically signed by: Basil Youssef M.D. Narrative 03/27/2024 7:33 AM VESSEL CREW MEMBER EXAMINATION: XR CHEST 1 VIEW HISTORY: Pleural effusion. Follow-up imaging. COMPARISON: Multiple prior chest radiographs, most recently 03/26/2024. FINDINGS: AP portable upright chest radiograph was obtained. Prior median sternotomy with aortic valve replacement heart size is stable. Normal pulmonary vascularity. Tortuous calcific aorta. Persistent bibasilar atelectasis with small left pleural effusion. No pneumothorax. Changes bilateral shoulder arthroplasty. Procedure Note Basil Youssef [...] Final Result * eGFR (03/27/2024 12:27 AM VESSEL CREW MEMBER) Pathologist [facility] [place] eGFR 74 >=60 mL/min/1. 73 m2 Comment: Interpretive Data Reference Interval Normal >/= 90 mL/min/1.73m2 Mildly decreased* 60 - 89 mL/min/1.73m2 Mildly to moderately decreased 45 - 59 mL/min/1.73m2 Moderately to severely decreased 30 - 44 mL/min/1.73m2 Severely decreased 15 - 29 mL/min/1.73m2 Kidney Failure < 15 mL/min/1.73m2 *Relative to young adult level Estimated glomerular [...] reviewed 2021. Blood 03/27/2024 12:2 7 AM VESSEL CREW MEMBER 03/27/2024 1:07 AM VESSEL CREW MEMBER Ale Mcknight NP LAB BLOOD ORDERABLES Fin al Result [facility] [address] [place] [address] * (ABNORMAL) CBC without differential (03/27/2024 12:27 AM VESSEL CREW MEMBER) WBC 8.8 3.8 - 9.9 K/cumm Hgb 9.5(L) 13.0 - 17.5 g/dL [facility] Hct 29.3(L) 38.9 - 50.3 % [facility] Plt 138(L) 150 - 400 K/cumm [facility] MPV 9.7 9.1 - 12.3 fL [facility] RBC 3.18(L) 4.30 - 5.80 M/cumm [facility] MCV 92.1 81.3 - 96.4 fL [facility] MCH 29.9 27.1 - 33.3 pg [facility] MCHC 32.4 32.3 - 35.7 g/dL [facility] RDW CV 12.9 11.1 - 14.9 % [facility] RDW SD 43.4 35.7 - 48.1 fL [facility] NRBC abs 0.00 0.00 - 0.01 K/cumm [facility] Blood 03/27/2024 12:2 7 AM VESSEL CREW MEMBER 03/27/2024 1:07 AM VESSEL CREW MEMBER Ale Mcknight BARREL LATHE OPERATOR LAB BLOOD ORDERABLES Fin al Result Performing Organization Address [facility] Co de Phone Number [facility] [address] [place] [address] * Magnesium (03/27/2024 12:27 AM VESSEL CREW MEMBER) [facility] Magnesium 2.1 1.4 - 2.5 mg/dL Blood 03/27/2024 12:2 7 AM VESSEL CREW MEMBER 03/27/2024 1:07 AM VESSEL CREW MEMBER Ale Mcknight BARREL LATHE OPERATOR LAB BLOOD ORDERABLES Fin al Result Performing Organization Address [facility] de Phone Number [facility] [address] [place] [address] * (ABNORMAL) Renal function panel (03/27/2024 12:27 AM VESSEL CREW MEMBER) Pathologist [facility] [place] Sodium 134(L) 135 - 145 mmol/L Potassium, pl 4.3 3.3 - 4.9 mmol/L [facility] Chloride 101 97 - 110 mmol/L [facility] CO2 24 22 - 32 mmol/L [facility] Anion gap 9 2 - 15 mmol/L [facility] BUN 16 6 - 25 mg/dL [facility] Creatinine 1.00 0.80 - 1.30 mg/dL [facility] Glucose 112 70 - 199 mg/dL [facility] Comment: Interpretive Data Fasting glucose >/= 126 mg/dl is diagnostic for diabetes. Fasting is defined as no caloric intake [...] 2022. Calcium 8.4(L) 8.5 - 10.3 mg/dL [facility] Phosphorus, pl 4.0 2.3 - 4.5 mg/dL [facility] Albumin 3.1(L) 3.5 - 5.0 g/dL [facility] Blood 03/27/2024 12:2 7 AM VESSEL CREW MEMBER 03/27/2024 1:07 AM VESSEL CREW MEMBER Ale Mcknight NP LAB BLOOD ORDERABLES [facility] al Result [facility] [address] [place] [address] * (ABNORMAL) Urinalysis reflex to microscopic and culture Urine (03/26/2024 11:53 AM VESSEL CREW MEMBER) Color, ur Yellow Yellow Clarity, ur Clear Clear [facility] Specific gravity, ur 1.031(H) 1.003 - 1.030 [facility] pH, urine 6.0 [facility] Comment: Interpretive Data U rine pH is affected by diet, medications, systemic acid-base disturbances, and renal tubular function. pH may affect urinary stone formation. For example, urine pH below 6.0 may help reduce the tendency for calcium phosphate stones and pH greater than 6.0 may reduce the tendency for uric acid stone formation. Source: [facility] [place] Current Interpretive Data was last revised on 2017 Protein, ur ql 1+(A) Negative [facility] Glucose, ur ql Negative Negative [facility] Ketones, ur Negative Negative [facility] Bilirubin, ur Negative Negative [facility] Blood, ur Negative Negative [facility] Urobilinogen, ur 2.0(A) <2.0 mg/dL [facility] Nitrite, ur Negative Negative [facility] Leukocyte esterase, ur 2+(A) Negative [facility] UA reflex comment Reflex to microscopic UA will be performed. [facility] Urine 03/26/2024 11:5 3 AM VESSEL CREW MEMBER 03/26/2024 11:53 AM VESSEL CREW MEMBER Benny SLOIS LAB MICROBIOLOGY - GENERAL O RDERABLES Final Result Performing Organization Address [facility] Co de Phone Number [facility] [address] Department [place] [address] * (ABNORMAL) Urinalysis, microscopic only (03/26/2024 11:53 AM VESSEL CREW MEMBER) WBC, ur 6-10(A) 0 - 5 /HPF RBC, ur 3-5(A) 0 - 2 /HPF [facility] Epithelial cells, squamous, ur 1-5 0 - 5 /HPF [facility] Mucous, ur Present(A) [facility] Culture Reflex Comment Reflex conditions for urine culture (WBC >10) not met. [facility] Urine 03/26/2024 11:5 3 AM VESSEL CREW MEMBER 03/26/2024 12:04 PM VESSEL CREW MEMBER Benny SOLIS LAB URINE ORDERABLES Final R esult Performing Organization Address City/[facility]/ZIP Co de Phone Number [facility] [address] [place] [address] * XR Chest 1 View - Portable - in AM (03/26/2024 6:06 AM VESSEL CREW MEMBER) Anatomical Region Laterality Modality Body, Chest N/A Computed Radiogr aphy 03/26/2024 7:40 AM VESSEL CREW MEMBER Impressions 03/26/2024 7:40 AM VESSEL CREW MEMBER Comparison 03/25/2024 5:47 AM. Median sternotomy wires are intact. Right internal jugular central venous catheter tip at superior cavoatrial junction. Cardiomediastinal silhouette stable. Aortic valve replacement again noted. Moderate left and mild right bibasilar atelectasis and small left pleural effusion again noted. No pulmonary edema seen. No pneumothorax seen. Electronically signed by: Dion Pinto M.D. Narrative 03/26/2024 7:40 AM VESSEL CREW MEMBER EXAMINATION: Chest 1 view Procedure Note Dion [...] seen. Electronically signed by: Dion Pinto M.D. Ale Mcknight BARREL LATHE OPERATOR IMG XR PROCEDURES Final Result * eGFR (03/26/2024 12:27 AM VESSEL CREW MEMBER) eGFR 65 >=60 mL/min/1. 73 m2 Comment: Interpretive Data Reference Interval Normal >/= 90 mL/min/1.73m2 Mildly decreased* 60 - 89 mL/min/1.73m2 Mildly to moderately decreased 45 - 59 mL/min/1.73m2 Moderately to severely decreased 30 - 44 mL/min/1.73m2 Severely decreased 15 - 29 mL/min/1.73m2 Kidney Failure < 15 mL/min/1.73m2 *Relative to young adult level Estimated glomerular [...] reviewed 2021. Blood 03/26/2024 12:2 7 AM VESSEL CREW MEMBER 03/26/2024 12:50 AM VESSEL CREW MEMBER Ale Mcknight BARREL LATHE OPERATOR LAB BLOOD ORDERABLES Fin al Result Performing Organization Address [facility] de Phone Number [facility] [address] [place] [address] * (ABNORMAL) CBC without differential (03/26/2024 12:27 AM VESSEL CREW MEMBER) Pathologist [facility] [place] WBC 10.0(H) 3.8 - 9.9 K/cumm Hgb 9.8(L) 13.0 - 17.5 g/dL [facility] Hct 29.2(L) 38.9 - 50.3 % [facility] Plt 162 150 - 400 K/cumm [facility] MPV 9.1 9.1 - 12.3 fL [facility] RBC 3.22(L) 4.30 - 5.80 M/cumm [facility] MCV 90.7 81.3 - 96.4 fL [facility] MCH 30.4 27.1 - 33.3 pg [facility] MCHC 33.6 32.3 - 35.7 g/dL [facility] RDW CV 12.9 11.1 - 14.9 % [facility] RDW SD 42.5 35.7 - 48.1 fL [facility] NRBC abs 0.00 0.00 - 0.01 K/cumm [facility] Blood 03/26/2024 12:2 7 AM VESSEL CREW MEMBER 03/26/2024 12:50 AM VESSEL CREW MEMBER Ale Mcknight BARREL LATHE OPERATOR LAB BLOOD ORDERABLES Fin al Result Performing Organization Address [facility] Co de Phone Number [facility] [address] [place] [address] * Magnesium (03/26/2024 12:27 AM VESSEL CREW MEMBER) Magnesium 2.0 1.4 - 2.5 mg/dL Blood 03/26/2024 12:2 7 AM VESSEL CREW MEMBER 03/26/2024 12:50 AM VESSEL CREW MEMBER Ale Mcknight BARREL LATHE OPERATOR LAB BLOOD ORDERABLES Fin al Result [facility] [address] Department [place] [address] * (ABNORMAL) Renal function panel (03/26/2024 12:27 AM VESSEL CREW MEMBER) Sodium 135 135 - 145 mmol/L Potassium, pl 4.2 3.3 - 4.9 mmol/L [facility] Chloride 100 97 - 110 mmol/L [facility] CO2 23 22 - 32 mmol/L [facility] Anion gap 12 2 - 15 mmol/L [facility] BUN 16 6 - 25 mg/dL [facility] Creatinine 1.12 0.80 - 1.30 mg/dL [facility] Glucose 100 70 - 199 mg/dL [facility] Comment: Interpretive Data Fasting glucose >/= 126 mg/dl is diagnostic for diabetes. Fasting is defined as no caloric intake [...] 2022. Calcium 8.3(L) 8.5 - 10.3 mg/dL [facility] Phosphorus, pl 3.8 2.3 - 4.5 mg/dL [facility] Albumin 3.3(L) 3.5 - 5.0 g/dL [facility] Blood 03/26/2024 12:2 7 AM VESSEL CREW MEMBER 03/26/2024 12:50 AM VESSEL CREW MEMBER Ale Mcknight BARREL LATHE OPERATOR LAB BLOOD ORDERABLES Fin al Result [facility] [address] Department [place] [address] * XR Chest 1 View - Portable - in AM (03/25/2024 5:49 AM VESSEL CREW MEMBER) Anatomical Region Laterality Modality Body, Chest N/A Computed Radiogr aphy 03/25/2024 8:22 AM VESSEL CREW MEMBER Impressions 03/25/2024 8:22 AM VESSEL CREW MEMBER Comparison is made to chest radiograph dated [...] Farzana Guzman M.D. Narrative 03/25/2024 8:22 AM VESSEL CREW MEMBER EXAMINATION: 1 view chest radiograph Procedure Note [...] Final Result * eGFR (03/25/2024 1:33 AM VESSEL CREW MEMBER) eGFR 76 >=60 mL/min/1. 73 m2 Comment: Interpretive Data Reference Interval Normal >/= 90 mL/min/1.73m2 Mildly decreased* 60 - 89 mL/min/1.73m2 Mildly to moderately decreased 45 - 59 mL/min/1.73m2 Moderately to severely decreased 30 - 44 mL/min/1.73m2 Severely decreased 15 - 29 mL/min/1.73m2 Kidney Failure < 15 mL/min/1.73m2 *Relative to young adult level Estimated glomerular [...] last reviewed 2021. Blood 03/25/2024 1:33 AM VESSEL CREW MEMBER 03/25/2024 1:55 AM VESSEL CREW MEMBER Ale Mcknight NP LAB BLOOD ORDERABLES Fin al Result [facility] [address] Department [place] [address] * (ABNORMAL) CBC without differential (03/25/2024 1:33 AM VESSEL CREW MEMBER) WBC 9.0 3.8 - 9.9 K/cumm Hgb 9.3(L) 13.0 - 17.5 g/dL [facility] Hct 28.0(L) 38.9 - 50.3 % [facility] Plt 131(L) 150 - 400 K/cumm [facility] MPV 9.8 9.1 - 12.3 fL [facility] RBC 3.08(L) 4.30 - 5.80 M/cumm [facility] MCV 90.9 81.3 - 96.4 fL [facility] MCH 30.2 27.1 - 33.3 pg [facility] MCHC 33.2 32.3 - 35.7 g/dL [facility] RDW CV 12.9 11.1 - 14.9 % [facility] RDW SD 42.4 35.7 - 48.1 fL [facility] NRBC abs 0.00 0.00 - 0.01 K/cumm [facility] Blood 03/25/2024 1:33 AM VESSEL CREW MEMBER 03/25/2024 1:55 AM VESSEL CREW MEMBER Ale Mcknight BARREL LATHE OPERATOR LAB BLOOD ORDERABLES Fin al Result Performing Organization Address [facility] Co de Phone Number [facility] [address] [facility] [place], [place] [id number] * Type and screen (03/25/2024 1:33 AM VESSEL CREW MEMBER) Pathologist [facility] [place] ABO Rh O Positive Alex, indirect Negative [facility] Blood 03/25/2024 1:33 AM VESSEL CREW MEMBER 03/25/2024 2:03 AM VESSEL CREW MEMBER Narrative [facility] - 03/25/2024 2:34 AM VESSEL CREW MEMBER Has the patient had Daratumumab or Isatuximab in the past 6 months?->Unknown Ale Mcknight BARREL LATHE OPERATOR LAB BLOOD BANK TEST ORDE RABLES Final Result Performing Organization Address [facility] Co de Phone Number [facility] [address] [facility] [place], [place] [id number] * Magnesium (03/25/2024 1:33 AM VESSEL CREW MEMBER) [facility] Magnesium 2.0 1.4 - 2.5 mg/dL Blood 03/25/2024 1:33 AM [employer]SEL [employer]BER 03/25/2024 1:55 AM [employer]BER Ale Mcknight NP LAB BLOOD ORDERABLES Fin al Result Performing Organization Address [facility] Co de Phone Number [facility] [address] [facility] [employer] [place], [place] [id number] * (ABNORMAL) Renal function panel (03/25/2024 1:33 AM V[employer]BER) Pathologist [facility] [place] Sodium 132(L) 135 - 145 mmol/L Potassium, pl 4.6 3.3 - 4.9 mmol/L [facility] Chloride 99 97 - 110 mmol/L [facility] CO2 22 22 - 32 mmol/L [facility] Anion gap 11 2 - 15 mmol/L [facility] BUN 16 6 - 25 mg/dL [facility] Creatinine 0.98 0.80 - 1.30 mg/dL [facility] Glucose 104 70 - 199 mg/dL [facility] Comment: Interpretive Data Fasting glucose >/= 126 mg/dl is diagnostic for diabetes. Fasting is defined as no caloric intake [...] 2022. Calcium 8.0(L) 8.5 - 10.3 mg/dL [facility] Phosphorus, pl 2.8 2.3 - 4.5 mg/dL [facility] Albumin 2.8(L) 3.5 - 5.0 g/dL [facility] Blood 03/25/2024 1:33 AM [employer]BER 03/25/2024 1:55 AM [employer] us Ale Mcknight NP LAB BLOOD ORDERABLES Fin al Result [facility] [address] [place] [address] * XR Chest 1 View - Portable - in AM (03/24/2024 8:05 AM [employer]) Anatomical Region Laterality Modality Body, Chest N/A Computed Radiogr aphy 03/24/2024 8:15 AM [employer] Impressions 03/24/2024 8:15 AM [employer]BER Single view chest exam is compared to [...] Williams Murillo M.D. Narrative 03/24/2024 8:15 AM [employer]BER EXAMINATION: XR CHEST 1 VIEW History: Pleural [...] arthroplasties. Electronically signed by: Williams Murillo M.D. lAe Mcknight NP IMG XR PROCEDURES Final Result * eGFR (03/24/2024 2:16 AM [employer]) eGFR 73 >=60 mL/min/1. 73 m2 Comment: Interpretive Data Reference Interval Normal >/= 90 mL/min/1.73m2 Mildly decreased* 60 - 89 mL/min/1.73m2 Mildly to moderately decreased 45 - 59 mL/min/1.73m2 Moderately to severely decreased 30 - 44 mL/min/1.73m2 Severely decreased 15 - 29 mL/min/1.73m2 Kidney Failure < 15 mL/min/1.73m2 *Relative to young adult level Estimated glomerular [...] last reviewed 2021. Blood 03/24/2024 2:16 AM [employer] 03/24/2024 2:21 AM [employer] Ale Mcknight BARREL LATHE OPERATOR LAB BLOOD ORDERABLES Fin al Result Performing Organization Address [facility]/ZIP Co de Phone Number [facility] [address] [place] [address] * (ABNORMAL) CBC without differential (03/24/2024 2:16 AM [employer]) WBC 7.5 3.8 - 9.9 K/cumm Hgb 9.6(L) 13.0 - 17.5 g/dL [facility] Hct 28.7(L) 38.9 - 50.3 % [facility] Plt 143(L) 150 - 400 K/cumm [facility] MPV 9.5 9.1 - 12.3 fL [facility] RBC 3.19(L) 4.30 - 5.80 M/cumm [facility] MCV 90.0 81.3 - 96.4 fL [facility] MCH 30.1 27.1 - 33.3 pg [facility] MCHC 33.4 32.3 - 35.7 g/dL [facility] RDW CV 12.7 11.1 - 14.9 % [facility] RDW SD 41.8 35.7 - 48.1 fL [facility] NRBC abs 0.00 0.00 - 0.01 K/cumm [facility] Blood 03/24/2024 2:16 AM [employer]BER 03/24/2024 2:21 AM [employer] Ale Mcknight BARREL LATHE OPERATOR LAB BLOOD ORDERABLES Fin al Result Performing Organization Address [facility]/ZIP Co de Phone Number [facility] [address] [place] [address] * Magnesium (03/24/2024 2:16 AM [employer]) Magnesium 2.2 1.4 - 2.5 mg/dL Blood 03/24/2024 2:16 AM [employer]BER 03/24/2024 2:21 AM [employer] us Ale Mcknight BARREL LATHE OPERATOR LAB BLOOD ORDERABLES Fin al Result [facility] [address] Department [place] [address] * (ABNORMAL) Renal function panel (03/24/2024 2:16 AM [employer]) Sodium 134(L) 135 - 145 mmol/L Potassium, pl 4.2 3.3 - 4.9 mmol/L [facility] Chloride 103 97 - 110 mmol/L [facility] CO2 22 22 - 32 mmol/L [facility] Anion gap 9 2 - 15 mmol/L [facility] BUN 16 6 - 25 mg/dL [facility] Creatinine 1.01 0.80 - 1.30 mg/dL [facility] Glucose 103 70 - 199 mg/dL [facility] Comment: Interpretive Data Fasting glucose >/= 126 mg/dl is diagnostic for diabetes. Fasting is defined as no caloric intake [...] 2022. Calcium 8.3(L) 8.5 - 10.3 mg/dL [facility] Phosphorus, pl 2.2(L) 2.3 - 4.5 mg/dL [facility] Albumin 2.9(L) 3.5 - 5.0 g/dL [facility] Blood 03/24/2024 2:16 AM [employer]BER 03/24/2024 2:21 AM [employer] us Ale Mcknight NP LAB BLOOD ORDERABLES [facility] al Result [facility] [address] [place] [address] * XR Chest 1 View - Portable - in AM (03/23/2024 6:41 AM [employer]) Anatomical Region Laterality Modality Body, Chest N/A Computed Radiogr aphy 03/23/2024 8:08 AM [employer]BER Impressions 03/23/2024 8:08 AM [employer]SEL [employer]BER 1. Obscuration of the left hemidiaphragm likely related to a pleural effusion. 2. Otherwise grossly negative postoperative chest radiograph. COMMENT: Please see above for additional findings. Electronically signed by: Mo Stahl M.D. Narrative 03/23/2024 8:08 AM [employer]BER Chest Radiograph, 1 view HISTORY: pleural effusion, [...] signed by: Mo Stahl M.D. Ale Mcknight BARREL LATHE OPERATOR IMG XR PROCEDURES Final Result * Critical Care (03/23/2024 6:36 AM [employer]) Narrative Mauri Odell MD - 03/23/2024 6:36 AM [employer] Ale Mcknight NP 03/23/2024 8:54 AM Critical Care Performed by: Ale Mcknight NP Authorized by: Ale Mcknight NP CRITICAL CARE: Team: [facility] CT Shift: AM Level of Billing: Subsequent Hospital Visit Level 3 My time spent with this patient was 45 minutes: Critical Provider Statement: I have seen and examined the patient on this day of service. I have reviewed and confirmed the history, physical exam, laboratory, and radiographic data as documented in the ICU note. I have reviewed and discussed my treatment plan with the patient's team and other medical/customer service consultant staff. This time was in addition to and separate from care provided by other practitioners on this day of service. I spent time reviewing and interpreting data from bedside monitors, laboratory results, and imaging and I spent time discussing the management of this critically ill patient with consultants and the medical staff us Ale Mcknight BARREL LATHE OPERATOR IN CLINIC/BEDSIDE ORDERA BLES Final Result * eGFR (03/23/2024 1:16 AM [employer]) eGFR 77 >=60 mL/min/1. 73 m2 Comment: Interpretive Data Reference Interval Normal >/= 90 mL/min/1.73m2 Mildly decreased* 60 - 89 mL/min/1.73m2 Mildly to moderately decreased 45 - 59 mL/min/1.73m2 Moderately to severely decreased 30 - 44 mL/min/1.73m2 Severely decreased 15 - 29 mL/min/1.73m2 Kidney Failure < 15 mL/min/1.73m2 *Relative to young adult level Estimated glomerular [...] last reviewed 2021. Blood 03/23/2024 1:16 AM [employer]BER 03/23/2024 1:35 AM [employer]BER Brenda Mayberry BARREL LATHE OPERATOR LAB BLOOD ORDERABLES Final Result Performing Organization Address City/[facility]/ZIP Co de Phone Number [facility] [address] Department [employer] [place], [place] [phone] * (ABNORMAL) Calcium, ionized (03/23/2024 1:16 AM V[employer]BER) Calcium, Ionized 4.40(L) 4.50 - 5.10 mg/dL Blood 03/23/2024 1:16 AM [employer]BER 03/23/2024 1:23 AM [employer]BER Gena Jane BARREL LATHE OPERATOR LAB BLOOD ORDERABLES Hamida l Result Performing Organization Address City/[facility]/ZIP Co de Phone Number [facility] [address] [place] [address] * Protime-INR (03/23/2024 1:16 AM V[employer] MEMBER) PT 11.7 9.7 - 13.0 sec INR 1.08 0.90 - 1.20 [facility] Comment: Interpretive data Oral anticoagulant therapeutic ranges: Venous thromboembolism prophylaxis or treatment: 2.0-3.0 CARDIOLOGY Standard range: 2.0-3.0 High-intensity range: 2.5-3.5 Refer to indication-specific guidelines for appropriate target ranges for prosthetic heart valve replacement. Current interpretive data was last revised on 2019. Blood 03/23/2024 1:16 AM [employer] MEMBER 03/23/2024 1:35 AM V[employer]BER us Gena Magy Jane BARREL LATHE OPERATOR LAB BLOOD ORDERABLES Hamida l Result Performing Organization Address [facility] Co de Phone Number [facility] [address] Department [employer] [place] [address] * (ABNORMAL) CBC without differential (03/23/2024 1:16 AM V[employer] MEMBER) Pathologist [facility] [place] WBC 8.3 3.8 - 9.9 K/cumm Hgb 10.2(L) 13.0 - 17.5 g/dL [facility] Hct 31.4(L) 38.9 - 50.3 % [facility] Plt 130(L) 150 - 400 K/cumm [facility] MPV 9.6 9.1 - 12.3 fL [facility] RBC 3.42(L) 4.30 - 5.80 M/cumm [facility] MCV 91.8 81.3 - 96.4 fL [facility] MCH 29.8 27.1 - 33.3 pg [facility] MCHC 32.5 32.3 - 35.7 g/dL [facility] RDW CV 12.9 11.1 - 14.9 % [facility] RDW SD 43.1 35.7 - 48.1 fL [facility] NRBC abs 0.00 0.00 - 0.01 K/cumm [facility] Blood 03/23/2024 1:16 AM V[employer] MEMBER 03/23/2024 1:36 AM V[employer] MEMBER us Ale Mcknight BARREL LATHE OPERATOR LAB BLOOD ORDERABLES Fin al Result Performing Organization Address [facility]/ZIP Co de Phone Number [facility] [address] Department of [employer] [place], [place] [id number] * Magnesium (03/23/2024 1:16 AM V[employer] MEMBER) Magnesium 2.2 1.4 - 2.5 mg/dL Comment:Reviewed Blood 03/23/2024 1:16 AM [employer] MEMBER 03/23/2024 1:35 AM [employer] MEMBER Ale Mcknight BARREL LATHE OPERATOR LAB BLOOD ORDERABLES Fin al Result [facility] [address] Department [place] [address] * (ABNORMAL) Renal function panel (03/23/2024 1:16 AM V[employer]BER) Sodium 134(L) 135 - 145 mmol/L Potassium, pl 4.5 3.3 - 4.9 mmol/L [facility] Chloride 100 97 - 110 mmol/L [facility] CO2 21(L) 22 - 32 mmol/L [facility] Anion gap 13 2 - 15 mmol/L [facility] BUN 13 6 - 25 mg/dL [facility] Creatinine 0.97 0.80 - 1.30 mg/dL [facility] Glucose 79 70 - 199 mg/dL [facility] Comment: Interpretive Data Fasting glucose >/= 126 mg/dl is diagnostic for diabetes. Fasting is defined as no caloric intake [...] 2022. Calcium 8.2(L) 8.5 - 10.3 mg/dL [facility] Phosphorus, pl 3.3 2.3 - 4.5 mg/dL [facility] Albumin 2.9(L) 3.5 - 5.0 g/dL [facility] Blood 03/23/2024 1:16 AM V[employer] MEMBER 03/23/2024 1:35 AM V[employer] MEMBER Ale Mcknight BARREL LATHE OPERATOR LAB BLOOD ORDERABLES Fin al Result Performing Organization Address City/[facility]/ZIP Co de Phone Number [facility] [address] Department [place] [address] * Critical Care (03/22/2024 8:16 PM V[employer] MEMBER) Narrative Mauri Odell MD - 03/22/2024 8:16 PM [employer]BER Gena Jane NP 03/23/2024 4:04 AM Critical Care Performed by: Gena Jane NP Authorized by: Gena Jane NP CRITICAL CARE: Team: [facility] CT Shift: PM Level of Billing: Subsequent Hospital Visit Level 3 My time spent with this patient was 40 minutes: Critical Provider Statement: I have seen and examined the patient on this day of service. I have reviewed and confirmed the history, physical exam, laboratory, and radiographic data as documented in the ICU note. I have reviewed and discussed my treatment plan with the patient's team and other medical/customer service consultant staff. This time was in addition to and separate from care provided by other practitioners on this day of service. I spent time documenting in the medical record, I spent time discussing the management of this critically ill patient with consultants and the medical staff and I spent time reviewing and interpreting data from bedside monitors, laboratory results, and imaging Gena Jane BARREL LATHE OPERATOR IN CLINIC/BEDSIDE ORDERAB LES Final Result * POCT glucose (03/22/2024 6:38 PM VESSEL CREW MEMBER) [facility] Glucose, POC 96 70 - 199 mg/dL Comment: For Glucose values <35 mg/dl when Hematocrit is >60 mg/dl,the test may not accurately detect significant hypoglycemia,and testing in the Laboratory should be considered if clinically indicated. Blood 03/22/2024 6:38 PM V[employer]SEL CRE[employer] MEMBER 03/22/2024 6:38 PM V[employer]SEL [employer] MEMBER Basil Adhikari MD LAB POCT ORDERABLES - DE VICE Final Result Performing Organization Address [facility]/ZIP Co de Phone Number [facility] [address] Department [place] [address] * eGFR (03/22/2024 6:30 PM V[employer] MEMBER) eGFR 76 >=60 mL/min/1. 73 m2 Comment: Interpretive Data Reference Interval Normal >/= 90 mL/min/1.73m2 Mildly decreased* 60 - 89 mL/min/1.73m2 Mildly to moderately decreased 45 - 59 mL/min/1.73m2 Moderately to severely decreased 30 - 44 mL/min/1.73m2 Severely decreased 15 - 29 mL/min/1.73m2 Kidney Failure < 15 mL/min/1.73m2 *Relative to young adult level Estimated glomerular [...] last reviewed 2021. Blood 03/22/2024 6:30 PM V[employer]SEL CREW MEMBER 03/22/2024 6:42 PM V[employer]SEL [employer]W MEMBER Sara Edwards NP LAB BLOOD ORDERABLES Final Result Performing Organization Address City/[facility]/ZIP Co de Phone Number [facility] [address] [employer] [place], [place] [phone] * (ABNORMAL) Calcium, ionized (03/22/2024 6:30 PM V[employer]SEL CRE[employer] MEMBER) Pathologist [facility] [place] Calcium, Ionized 4.40(L) 4.50 - 5.10 mg/dL Blood 03/22/2024 6:30 PM V[employer]SEL CREW MEMBER 03/22/2024 6:42 PM VESSEL CREW MEMBER Sara Edwards NP LAB BLOOD ORDERABLES Final Result Performing Organization Address City/[facility] Co de Phone Number [facility] [address] [place] [address] * aPTT (03/22/2024 6:30 PM VESSEL CREW MEMBER) Pathologist [facility] [place] aPTT 30 28 - 38 sec Comment: Interpretive Data Heparin therapeutic range: 66.0 - 100.0 seconds. Range based on correlation with therapeutic heparin activity range of 0.3 - 0.7 Units/mL. Current interpretive data was last revised on 2022. Blood 03/22/2024 6:30 PM V[employer]SEL CREW MEMBER 03/22/2024 6:42 PM V[employer]SEL CREW MEMBER Sara Zieglerlubna Edwards BARREL LATHE OPERATOR LAB BLOOD ORDERABLES Final Result Performing Organization Address [facility] de Phone Number [facility] [address] [place] [address] * Protime-INR (03/22/2024 6:30 PM VESSEL CREW MEMBER) [facility] PT 12.8 9.7 - 13.0 sec INR 1.18 0.90 - 1.20 [facility] Comment: Interpretive data Oral anticoagulant therapeutic ranges: Venous thromboembolism prophylaxis or treatment: 2.0-3.0 CARDIOLOGY Standard range: 2.0-3.0 High-intensity range: 2.5-3.5 Refer to indication-specific guidelines for appropriate target ranges for prosthetic heart valve replacement. Current interpretive data was last revised on 2019. Blood 03/22/2024 6:30 PM V[employer]SEL CREW MEMBER 03/22/2024 6:42 PM V[employer]SEL CREW MEMBER Sara Shanna Edwards BARREL LATHE OPERATOR LAB BLOOD ORDERABLES Final Result Performing Organization Address [facility] de Phone Number [facility] [address] [facility] [place] [address] * (ABNORMAL) CBC without differential (03/22/2024 6:30 PM VESSEL CRE[employer] MEMBER) [facility] WBC 9.6 3.8 - 9.9 K/cumm Hgb 9.9(L) 13.0 - 17.5 g/dL [facility] Hct 29.4(L) 38.9 - 50.3 % [facility] Plt 107(L) 150 - 400 K/cumm [facility] MPV 9.5 9.1 - 12.3 fL [facility] RBC 3.23(L) 4.30 - 5.80 M/cumm [facility] MCV 91.0 81.3 - 96.4 fL [facility] MCH 30.7 27.1 - 33.3 pg [facility] MCHC 33.7 32.3 - 35.7 g/dL [facility] RDW CV 12.7 11.1 - 14.9 % [facility] RDW SD 42.5 35.7 - 48.1 fL [facility] NRBC abs 0.00 0.00 - 0.01 K/cumm [facility] Blood 03/22/2024 6:30 PM VESSEL CREW MEMBER 03/22/2024 6:42 PM V[employer]SEL CREW MEMBER Sara Edwards BARREL LATHE OPERATOR LAB BLOOD ORDERABLES Final Result Performing Organization Address [facility] Co de Phone Number [facility] [address] [place] [address] * Magnesium (03/22/2024 6:30 PM VESSEL CREW MEMBER) [facility] Magnesium 1.7 1.4 - 2.5 mg/dL Blood 03/22/2024 6:30 PM VESSEL CREW MEMBER 03/22/2024 6:42 PM VESSEL CREW MEMBER Sara Edwards BARREL LATHE OPERATOR LAB BLOOD ORDERABLES Final Result Performing Organization Address [facility] de Phone Number [facility] [address] Department [place] [address] * (ABNORMAL) Renal function panel (03/22/2024 6:30 PM VESSEL CREW MEMBER) [facility] Sodium 133(L) 135 - 145 mmol/L Potassium, pl 4.1 3.3 - 4.9 mmol/L [facility] Chloride 101 97 - 110 mmol/L [facility] CO2 20(L) 22 - 32 mmol/L [facility] Anion gap 12 2 - 15 mmol/L [facility] BUN 15 6 - 25 mg/dL [facility] Creatinine 0.98 0.80 - 1.30 mg/dL [facility] Glucose 89 70 - 199 mg/dL [facility] Comment: Interpretive Data Fasting glucose >/= 126 mg/dl is diagnostic for diabetes. Fasting is defined as no caloric intake [...] 2022. Calcium 7.5(L) 8.5 - 10.3 mg/dL [facility] Phosphorus, pl 3.0 2.3 - 4.5 mg/dL [facility] Albumin 2.8(L) 3.5 - 5.0 g/dL [facility] Blood 03/22/2024 6:30 PM VESSEL CREW MEMBER 03/22/2024 6:42 PM VESSEL CREW MEMBER Sara Edwards NP LAB BLOOD ORDERABLES Final Result [facility] [address] Department [place] [address] * Critical Care (03/22/2024 5:43 PM VESSEL CREW MEMBER) Narrative Mauri Odell MD - 03/22/2024 5:43 PM V[employer]SEL CREW MEMBER Sara Edwards NP 03/22/2024 5:52 PM Critical Care Performed by: Sara Edwards NP Authorized by: Sara Edwards NP CRITICAL CARE: Team: [facility] CT Shift: AM Level of Billing: Critical Care My time spent with this patient was 35 minutes: Critical Provider Statement: I have seen and examined the patient on this day of service. I have reviewed and confirmed the history, physical exam, laboratory and radiologic data as documented in the signed ICU note. I have reviewed and discussed my treatment plan with the ICU team and other medical/customer service consultant staff, making frequent assessments and decisions [...] or life-threatening deterioration of the following conditions: I spent time reviewing and interpreting data from bedside monitors, laboratory results, and imaging, I spent time discussing the management of this critically ill patient with consultants and the medical staff and I spent time documenting in the medical record us Sara Edwards BARREL LATHE OPERATOR IN CLINIC/BEDSIDE ORDERABL ES Final Result * REVAS ENDOVASILIAC W STNT [id number] (03/22/2024 4:52 PM VESSEL CREW MEMBER) Anatomical Region Laterality Modality X-Ray Angiograph y Narrative 03/22/2024 4:54 PM VESSEL CREW MEMBER Please see OpNote for result. Basil Adhikari MD CV CARDIAC CATH PROCEDUR ES Final Result * (ABNORMAL) POC Activated Clotting Time, High Range (03/22/2024 4:51 PM VESSEL CREW MEMBER) Pathologist [facility] [place] ACT 139(H) 87 - 138 sec Blood 03/22/2024 4:51 PM VESSEL CREW MEMBER 03/22/2024 4:51 PM VESSEL CREW MEMBER Basil Adhikari MD LAB BLOOD ORDERABLES Fin al Result [facility] [address] Department of Laboratories [place], [place] [id number] * (ABNORMAL) POC Blood Gas and Chemistries, Venous - (03/22/2024 4:29 PM VESSEL CREW MEMBER) pH, Boyd POC 7.31(L) 7.32 - 7.45 pCO2, boyd POC 48 40 - 50 mmHg [facility] pO2, boyd POC 64(H) 35 - 42 mmHg [facility] Na, POC 129(L) 135 - 145 mmol/L [facility] K POC 4.1 3.3 - 4.9 mmol/L [facility] Comment: Interpretive Data This method is not able to assess for hemolysis, which may falsely increase potassium concentrations. If further testing is needed to evaluate this result, consider in-laboratory plasma potassium. Current Interpretive Data was last revised on 2021. Cl, POC 101 97 - 110 mmol/L [facility] Ionized Ca, POC 4.62 4.50 - 5.10 mg/dL [facility] Glucose, POC 95 70 - 199 mg/dL [facility] Lactate, POC 0.7 0.0 - 2.0 mmol/L [facility] O2Hb, Boyd POC 90.2 90.0 - 95.0 % [facility] Carboxhgb fract 1.9 0.0 - 2.9 % [facility] Methemoglobin 1.3 0.0 - 1.9 % [facility] HHb, POC 6.6(H) 0.0 - 5.0 % [facility] O2 Sat, Boyd POC (Shayne) 93(H) 68 - 77 % [facility] Total CO2, boyd POC 26 22 - 32 mmol/L [facility] Base excess, boyd POC -2.2 mmol/L [facility] HCO3, Boyd POC 23 20 - 30 mmol/L [facility] Hct, POC 30.0(L) 38.9 - 50.3 % [facility] Total Hb, POC 9.9(L) 13.0 - 17.5 g/dL [facility] Blood 03/22/2024 4:29 PM VESSEL CREW MEMBER 03/22/2024 4:29 PM VESSEL CREW MEMBER us Basil Adhikari MD LAB POCT ORDERABLES - DE VICE Final Result [facility] [address] Department [place] [address] * (ABNORMAL) POC Activated Clotting Time, High Range (03/22/2024 4:10 PM VESSEL CREW MEMBER) ACT 386(H) 87 - 138 sec Blood 03/22/2024 4:10 PM VESSEL CREW MEMBER 03/22/2024 4:10 PM V[employer]SEL CREW MEMBER Basil Adhikari MD LAB BLOOD ORDERABLES Fin al Result Performing Organization Address [facility] de Phone Number [facility] [address] [facility] [place] [address] * (ABNORMAL) POC Activated Clotting Time, High Range (03/22/2024 4:00 PM [employer]BER) ACT 174(H) 87 - 138 sec Blood 03/22/2024 4:00 PM [employer]BER 03/22/2024 4:00 PM [employer]SEL [employer]BER Result [facility] Basil Adhikari MD LAB BLOOD ORDERABLES Fin al Result Performing Organization Address [facility] de Phone Number [facility] [address] [facility] [place] [address] * (ABNORMAL) POC Activated Clotting Time, High Range (03/22/2024 3:56 PM [employer]BER) ACT 145(H) 87 - 138 sec Blood 03/22/2024 3:56 PM [employer]BER 03/22/2024 3:56 PM [employer]BER Result [facility] Basil Adhikari MD LAB BLOOD ORDERABLES Fin al Result Performing Organization Address [facility] de Phone Number [facility] [address] [facility] [place] [address] * (ABNORMAL) POC Activated Clotting Time, High Range (03/22/2024 3:28 PM [employer]) ACT 457(H) 87 - 138 sec Blood 03/22/2024 3:28 PM [employer]BER 03/22/2024 3:28 PM [employer]BER Basil Adhikari MD LAB BLOOD ORDERABLES Fin al Result Performing Organization Address [facility]/ZIP Co de Phone Number [facility] [address] [facility] [place] [address] * (ABNORMAL) POCT Activated clotting time, low range (03/22/2024 3:21 PM [employer]BER) [facility] ACT >400(H) 123 - 168 sec Blood 03/22/2024 3:21 PM [employer]BER 03/22/2024 3:21 PM [employer] us Basil Adhikari MD LAB POCT ORDERABLES - DE VICE Final Result Performing Organization Address [facility] Co de Phone Number [facility] [address] [facility] [place] [address] * [place] AN ELECTIVE ENDOTRACHEAL AIRWAY, [place] AN PROCEDURE PLACEHOLDER (03/22/2024 3:08 PM [employer]) Narrative Gamal Asher MD PhD - 03/22/2024 3:08 PM [employer]BER Gamal Asher MD PhD 03/22/2024 3:09 PM Airway Patient location: OR Urgency: elective [...] Prepare RBC: 2 Units (03/22/2024 2:42 PM [employer]BER) [facility] Product code [id number] Unit Number [id number] 8-* [facility] Product Blood Type OPOS [facility] Dispense Status RETURNED [facility] Product code [id number] [facility] Unit Number [id number] [id number] [facility] Product Blood Type OPOS [facility] Dispense Status RETURNED [facility] Blood 03/22/2024 2:42 PM V[employer]BER Narrative [facility] - 03/26/2024 7:31 AM [employer]BER Are special requirements needed? (All products are leukoreduced and CMV- safe)- >No Date required:-[id number] LRRBC # of [id number] Reasons:-Intra-op transfusion} Gamal Asher MD PhD BLOOD BANK PRODUCT ORDER AMARA Final Result [facility] [address] Department [place] [address] * XR Chest 1 View - Portable - in AM (03/22/2024 7:26 AM [employer]) Anatomical Region Laterality Modality Body, Chest N/A Computed Radiogr aphy 03/22/2024 8:08 AM [employer]BER Impressions 03/22/2024 8:08 AM [employer]BER Comparison is made to 03/21/2024. Right jugular [...] Ruy Hager M.D. Narrative 03/22/2024 8:08 AM [employer]BER Examination: Chest 1 view Procedure Note Ruy [...] size. Electronically signed by: Ruy Hager M.D. Ale Mcknight NP IMG XR PROCEDURES Final Result * eGFR (03/22/2024 1:34 AM [employer]BER) Pathologist [facility] eGFR 73 >=60 mL/min/1. 73 m2 Comment: Interpretive Data Reference Interval Normal >/= 90 mL/min/1.73m2 Mildly decreased* 60 - 89 mL/min/1.73m2 Mildly to moderately decreased 45 - 59 mL/min/1.73m2 Moderately to severely decreased 30 - 44 mL/min/1.73m2 Severely decreased 15 - 29 mL/min/1.73m2 Kidney Failure < 15 mL/min/1.73m2 *Relative to young adult level Estimated glomerular [...] last reviewed 2021. Blood 03/22/2024 1:34 AM [employer]BER 03/22/2024 2:00 AM [employer]BER Brenda Mayberry NP LAB BLOOD ORDERABLES Final Result [facility] [address] [place] [address] * (ABNORMAL) CBC without differential (03/22/2024 1:34 AM V[employer]BER) [facility] WBC 9.0 3.8 - 9.9 K/cumm Hgb 10.2(L) 13.0 - 17.5 g/dL [facility] Hct 30.6(L) 38.9 - 50.3 % [facility] Plt 111(L) 150 - 400 K/cumm [facility] MPV 10.1 9.1 - 12.3 fL [facility] RBC 3.41(L) 4.30 - 5.80 M/cumm [facility] MCV 89.7 81.3 - 96.4 fL [facility] MCH 29.9 27.1 - 33.3 pg [facility] MCHC 33.3 32.3 - 35.7 g/dL [facility] RDW CV 12.8 11.1 - 14.9 % [facility] RDW SD 42.0 35.7 - 48.1 fL [facility] NRBC abs 0.00 0.00 - 0.01 K/cumm [facility] Blood 03/22/2024 1:34 AM [employer]BER 03/22/2024 2:00 AM [employer]BER Ale Mcknight BARREL LATHE OPERATOR LAB BLOOD ORDERABLES Fin al Result Performing Organization Address City/[facility]/ZIP Co de Phone Number [facility] [address] [place] [address] * Type and screen (03/22/2024 1:34 AM V[employer]BER) Pathologist [facility] [place] Alex, indirect Negative ABO Rh O Positive [facility] Blood 03/22/2024 1:34 AM [employer]BER 03/22/2024 1:56 AM V[employer] MEMBER Narrative [facility] - 03/22/2024 2:43 AM V[employer]BER Has the patient had Daratumumab or Isatuximab in the past 6 months?->Unknown Ale Mcknight NP LAB BLOOD BANK TEST ORDE RABLES Final Result [facility] [address] Department [place], [place] [id number] * Magnesium (03/22/2024 1:34 AM [employer]BER) Magnesium 1.9 1.4 - 2.5 mg/dL Blood 03/22/2024 1:34 AM [employer]BER 03/22/2024 2:00 AM [employer]BER Ale Mcknight BARREL LATHE OPERATOR LAB BLOOD ORDERABLES Fin al Result [facility] [address] Department [place] [address] * (ABNORMAL) Renal function panel (03/22/2024 1:34 AM V[employer]BER) Sodium 130(L) 135 - 145 mmol/L Potassium, pl 4.1 3.3 - 4.9 mmol/L [facility] Chloride 96(L) 97 - 110 mmol/L [facility] CO2 21(L) 22 - 32 mmol/L [facility] Anion gap 13 2 - 15 mmol/L [facility] BUN 17 6 - 25 mg/dL [facility] Creatinine 1.01 0.80 - 1.30 mg/dL [facility] Glucose 94 70 - 199 mg/dL [facility] Comment: Interpretive Data Fasting glucose >/= 126 mg/dl is diagnostic for diabetes. Fasting is defined as no caloric intake [...] 2022. Calcium 8.3(L) 8.5 - 10.3 mg/dL [facility] Phosphorus, pl 2.8 2.3 - 4.5 mg/dL [facility] Albumin 3.2(L) 3.5 - 5.0 g/dL [facility] Blood 03/22/2024 1:34 AM V[employer]BER 03/22/2024 2:00 AM [employer]BER Ale Mcknight NP LAB BLOOD ORDERABLES Fin al Result Performing Organization Address [facility] Co de Phone Number [facility] [address] [place] [address] * (ABNORMAL) aPTT (03/21/2024 8:12 PM V[employer]BER) aPTT 43(H) 28 - 38 sec Comment: Interpretive Data Heparin therapeutic range: 66.0 - 100.0 seconds. Range based on correlation with therapeutic heparin activity range of 0.3 - 0.7 Units/mL. Current interpretive data was last revised on 2022. Blood 03/21/2024 8:12 PM [employer]BER 03/21/2024 8:17 PM V[employer]BER Narrative [facility] - 03/21/2024 8:26 PM V[employer]BER STAT PTT timing: - Draw 6 hours [...] IV line that is actively infusing heparin. Use the opposite arm. If arm with actively infusing heparin must be used, pause the infusion for at least 2 minutes, and draw specimen below the IV site. For patients with a central venous catheter (CVC), lab must be drawn peripherally (not from CVC). us Benny SOLIS LAB BLOOD ORDERABLES Final R esult Performing Organization Address [facility] Co de Phone Number [facility] [address] Department [place] [address] * (ABNORMAL) aPTT (03/21/2024 12:40 PM V[employer] MEMBER) aPTT 47(H) 28 - 38 sec Comment: Interpretive Data Heparin therapeutic range: 66.0 - 100.0 seconds. Range based on correlation with therapeutic heparin activity range of 0.3 - 0.7 Units/mL. Current interpretive data was last revised on 2022. Blood 03/21/2024 12:4 0 PM V[employer] MEMBER 03/21/2024 12:44 PM V[employer]SEL CREW MEMBER Narrative [facility] - 03/21/2024 1:11 PM V[employer]SEL [employer]BER STAT PTT timing: - Draw 6 hours [...] IV line that is actively infusing heparin. Use the opposite arm. If arm with actively infusing heparin must be used, pause the infusion for at least 2 minutes, and draw specimen below the IV site. For patients with a central venous catheter (CVC), lab must be drawn peripherally (not from CVC). us Benny SOLIS LAB BLOOD ORDERABLES Final R esult Performing Organization Address City/[facility]/ZIP Co de Phone Number [facility] [address] Department [place] [address] * aPTT (03/21/2024 10:35 AM V[employer] MEMBER) aPTT 37 28 - 38 sec Comment: Interpretive Data Heparin therapeutic range: 66.0 - 100.0 seconds. Range based on correlation with therapeutic heparin activity range of 0.3 - 0.7 Units/mL. Current interpretive data was last revised on 2022. Blood 03/21/2024 10:3 5 AM V[employer] CRE[employer] MEMBER 03/21/2024 10:41 AM V[employer]BER us Basil Adhikari MD LAB BLOOD ORDERABLES Fin al Result Performing Organization Address City/[facility]/ZIP Co de Phone Number [facility] [address] Department [place] [address] * XR Chest 1 View - Portable - in AM (03/21/2024 7:43 AM V[employer] MEMBER) Anatomical Region Laterality Modality Body, Chest N/A Computed Radiogr aphy 03/21/2024 7:47 AM V[employer] MEMBER Impressions 03/21/2024 7:47 AM [employer]BER Right internal jugular central venous catheter terminates in the superior cavoatrial junction. Median sternotomy. Aortic valve replacement. Calcified atherosclerotic aorta. Mild cardiomegaly is unchanged. There is bibasilar subsegmental atelectasis, unchanged from the prior examination. Questionable small left pleural effusion is also unchanged. No pneumothorax. Electronically signed by: Manuel Mike M.D. Narrative 03/21/2024 7:47 AM V[employer] MEMBER PORTABLE CHEST RADIOGRAPH INDICATION: pleural effusion COMPARISON: 03/20/2024 VIEWS: 1 Procedure Note Manuel Mkie MD - 03/21/2024 PORTABLE CHEST RADIOGRAPH INDICATION: [...] signed by: Manuel Mike M.D. Ale Mcknight BARREL LATHE OPERATOR IMG XR PROCEDURES Final Result * (ABNORMAL) aPTT (03/21/2024 2:27 AM V[employer] MEMBER) aPTT 60(H) 28 - 38 sec Comment: Interpretive Data Heparin therapeutic range: 66.0 - 100.0 seconds. Range based on correlation with therapeutic heparin activity range of 0.3 - 0.7 Units/mL. Current interpretive data was last revised on 2022. Blood 03/21/2024 2:27 AM V[employer] MEMBER 03/21/2024 2:52 AM V[employer]SEL CREW MEMBER Francis [facility] - 03/21/2024 3:10 AM V[employer] MEMBER STAT PTT timing: - Draw 6 hours [...] IV line that is actively infusing heparin. Use the opposite arm. If arm with actively infusing heparin must be used, pause the infusion for at least 2 minutes, and draw specimen below the IV site. For patients with a central venous catheter (CVC), lab must be drawn peripherally (not from CVC). Benny SOLIS LAB BLOOD ORDERABLES Final R esult Performing Organization Address [facility] Co de Phone Number [facility] [address] [place] [address] * eGFR (03/21/2024 2:24 AM V[employer]BER) eGFR 77 >=60 mL/min/1. 73 m2 Comment: Interpretive Data Reference Interval Normal >/= 90 mL/min/1.73m2 Mildly decreased* 60 - 89 mL/min/1.73m2 Mildly to moderately decreased 45 - 59 mL/min/1.73m2 Moderately to severely decreased 30 - 44 mL/min/1.73m2 Severely decreased 15 - 29 mL/min/1.73m2 Kidney Failure < 15 mL/min/1.73m2 *Relative to young adult level Estimated glomerular [...] last reviewed 2021. Blood 03/21/2024 2:24 AM V[employer] MEMBER 03/21/2024 2:52 AM [employer] MEMBER Brenda Mayberry NP LAB BLOOD ORDERABLES Final Result Performing Organization Address [facility] Co de Phone Number [facility] [address] Department of [place], [place] [id number] * (ABNORMAL) CBC without differential (03/21/2024 2:24 AM V[employer]SEL CRE[employer] MEMBER) [facility] WBC 10.9(H) 3.8 - 9.9 K/cumm Hgb 11.1(L) 13.0 - 17.5 g/dL [facility] Hct 32.9(L) 38.9 - 50.3 % [facility] Plt 97(L) 150 - 400 K/cumm [facility] MPV 10.2 9.1 - 12.3 fL [facility] RBC 3.68(L) 4.30 - 5.80 M/cumm [facility] MCV 89.4 81.3 - 96.4 fL [facility] MCH 30.2 27.1 - 33.3 pg [facility] MCHC 33.7 32.3 - 35.7 g/dL [facility] RDW CV 12.7 11.1 - 14.9 % [facility] RDW SD 41.5 35.7 - 48.1 fL [facility] NRBC abs 0.00 0.00 - 0.01 K/cumm [facility] Blood 03/21/2024 2:24 AM V[employer] CRE[employer] MEMBER 03/21/2024 2:52 AM V[employer] MEMBER Ale Mcknight BARREL LATHE OPERATOR LAB BLOOD ORDERABLES Fin al Result Performing Organization Address [facility] Co de Phone Number [facility] [address] [facility] [place] [address] * Magnesium (03/21/2024 2:24 AM V[employer]SEL CRE[employer] MEMBER) [facility] Magnesium 1.8 1.4 - 2.5 mg/dL Blood 03/21/2024 2:24 AM V[employer] MEMBER 03/21/2024 2:52 AM V[employer] CRE[employer] MEMBER Ale Mcknight BARREL LATHE OPERATOR LAB BLOOD ORDERABLES Fin al Result Performing Organization Address [facility] Co de Phone Number [facility] [address] [place] [address] * (ABNORMAL) Renal function panel (03/21/2024 2:24 AM V[employer] MEMBER) Pathologist [facility] [place] Sodium 128(L) 135 - 145 mmol/L Potassium, pl 4.0 3.3 - 4.9 mmol/L [facility] Chloride 96(L) 97 - 110 mmol/L [facility] CO2 21(L) 22 - 32 mmol/L [facility] Anion gap 11 2 - 15 mmol/L [facility] BUN 18 6 - 25 mg/dL [facility] Creatinine 0.97 0.80 - 1.30 mg/dL [facility] Glucose 108 70 - 199 mg/dL [facility] Comment: Interpretive Data Fasting glucose >/= 126 mg/dl is diagnostic for diabetes. Fasting is defined as no caloric intake [...] 2022. Calcium 8.4(L) 8.5 - 10.3 mg/dL [facility] Phosphorus, pl 1.8(L) 2.3 - 4.5 mg/dL [facility] Albumin 3.4(L) 3.5 - 5.0 g/dL [facility] Blood 03/21/2024 2:24 AM V[employer] MEMBER 03/21/2024 2:52 AM V[employer]BER us Ale Mcknight NP LAB BLOOD ORDERABLES Fin al Result [facility] [address] Department [place] [address] * (ABNORMAL) aPTT (03/20/2024 4:57 PM V[employer] MEMBER) Pathologist [facility] [place] aPTT 48(H) 28 - 38 sec Comment: Interpretive Data Heparin therapeutic range: 66.0 - 100.0 seconds. Range based on correlation with therapeutic heparin activity range of 0.3 - 0.7 Units/mL. Current interpretive data was last revised on 2022. Blood 03/20/2024 4:57 PM V[employer]SEL CRE[employer] MEMBER 03/20/2024 5:16 PM V[employer]SEL CREW MEMBER Narrative [facility] - 03/20/2024 5:33 PM V[employer]SEL [employer] MEMBER STAT PTT timing: - Draw 6 hours [...] IV line that is actively infusing heparin. Use the opposite arm. If arm with actively infusing heparin must be used, pause the infusion for at least 2 minutes, and draw specimen below the IV site. For patients with a central venous catheter (CVC), lab must be drawn peripherally (not from CVC). Benny SOLIS LAB BLOOD ORDERABLES Final R esult Performing Organization Address [facility] Co de Phone Number [facility] [address] [place] [address] * aPTT (03/20/2024 9:27 AM VESSEL CRE[employer] MEMBER) [facility] Signature aPTT 34 28 - 38 sec Comment: Interpretive Data Heparin therapeutic range: 66.0 - 100.0 seconds. Range based on correlation with therapeutic heparin activity range of 0.3 - 0.7 Units/mL. Current interpretive data was last revised on 2022. Blood 03/20/2024 9:27 AM V[employer]SEL CREW MEMBER 03/20/2024 9:41 AM VESSEL CREW MEMBER Narrative [facility] - 03/20/2024 9:57 AM VESSEL CREW MEMBER Baseline prior to heparin initiation Benny SOLIS LAB BLOOD ORDERABLES Final R esult Performing Organization Address [facility] Co de Phone Number [facility] [address] Department [employer] [place], [place] [phone] * (ABNORMAL) Protime-INR (03/20/2024 9:27 AM VESSEL CREW MEMBER) PT 14.9(H) 9.7 - 13.0 sec INR 1.37(H) 0.90 - 1.20 [facility] Comment: Interpretive data Oral anticoagulant therapeutic ranges: Venous thromboembolism prophylaxis or treatment: 2.0-3.0 CARDIOLOGY Standard range: 2.0-3.0 High-intensity range: 2.5-3.5 Refer to indication-specific guidelines for appropriate target ranges for prosthetic heart valve replacement. Current interpretive data was last revised on 2019. Blood 03/20/2024 9:27 AM V[employer]SEL CREW MEMBER 03/20/2024 9:41 AM VESSEL CREW MEMBER Narrative [facility] - 03/20/2024 9:57 AM VESSEL CREW MEMBER Baseline prior to heparin initiation us Benny SOLIS LAB BLOOD ORDERABLES Final R esult [facility] [address] Department [place] [address] * XR Chest 1 View - Portable - in AM (03/20/2024 9:17 AM V[employer] MEMBER) Anatomical Region Laterality Modality Body, Chest N/A Computed Radiogr aphy 03/20/2024 2:59 PM V[employer]SEL [employer]W MEMBER Impressions 03/20/2024 2:59 PM V[employer]SEL CREW MEMBER Comparison is made to prior examination 03/19/2024. Unchanged median sternotomy wires and aortic valve replacement. Right internal jugular central venous catheter tip overlies superior caval atrial junction. Surgical drain is in place. Stable to minimally increased bibasilar opacities favored represent atelectasis with possible small left pleural effusion. No pneumothorax. Unchanged cardiomegaly. Electronically signed by: Gian Henriquez M.D. Narrative 03/20/2024 2:59 PM VESSEL CREW MEMBER EXAMINATION: XR CHEST 1 VIEW Procedure Note [...] cardiomegaly. Electronically signed by: Gian Henriquez M.D. us Ale Mcknight NP IMG XR PROCEDURES Final Result * eGFR (03/20/2024 1:03 AM V[employer] MEMBER) eGFR 72 >=60 mL/min/1. 73 m2 Comment: Interpretive Data Reference Interval Normal >/= 90 mL/min/1.73m2 Mildly decreased* 60 - 89 mL/min/1.73m2 Mildly to moderately decreased 45 - 59 mL/min/1.73m2 Moderately to severely decreased 30 - 44 mL/min/1.73m2 Severely decreased 15 - 29 mL/min/1.73m2 Kidney Failure < 15 mL/min/1.73m2 *Relative to young adult level Estimated glomerular [...] last reviewed 2021. Blood 03/20/2024 1:03 AM V[employer]SEL CREW MEMBER 03/20/2024 1:33 AM V[employer]SEL CREW MEMBER us Brenda Mayberry NP LAB BLOOD ORDERABLES Final Result [facility] [address] Department [place] [address] * Calcium, ionized (03/20/2024 1:03 AM V[employer] MEMBER) Calcium, Ionized 4.80 4.50 - 5.10 mg/dL Blood 03/20/2024 1:03 AM V[employer]SEL CRE[employer] MEMBER 03/20/2024 1:11 AM [employer] MEMBER Brenda Mayberry BARREL LATHE OPERATOR LAB BLOOD ORDERABLES Final Result Performing Organization Address [facility] Co de Phone Number [facility] [address] [place] [address] * (ABNORMAL) CBC without differential (03/20/2024 1:03 AM VESSEL CRE[employer] MEMBER) WBC 12.7(H) 3.8 - 9.9 K/cumm Hgb 12.2(L) 13.0 - 17.5 g/dL [facility] Hct 35.9(L) 38.9 - 50.3 % [facility] Plt 104(L) 150 - 400 K/cumm [facility] MPV 10.0 9.1 - 12.3 fL [facility] RBC 4.04(L) 4.30 - 5.80 M/cumm [facility] MCV 88.9 81.3 - 96.4 fL [facility] MCH 30.2 27.1 - 33.3 pg [facility] MCHC 34.0 32.3 - 35.7 g/dL [facility] RDW CV 12.8 11.1 - 14.9 % [facility] RDW SD 41.5 35.7 - 48.1 fL [facility] NRBC abs 0.00 0.00 - 0.01 K/cumm [facility] Blood 03/20/2024 1:03 AM V[employer]SEL CREW MEMBER 03/20/2024 1:33 AM V[employer] CRE[employer] MEMBER us Ale Mcknight BARREL LATHE OPERATOR LAB BLOOD ORDERABLES Fin al Result [facility] [address] Department [address] [place] [place], [place] [id number] * Magnesium (03/20/2024 1:03 AM V[employer] MEMBER) Magnesium 2.0 1.4 - 2.5 mg/dL Blood 03/20/2024 1:03 AM V[employer]SEL CREW MEMBER 03/20/2024 1:33 AM V[employer]SEL CREW MEMBER Ale Mcknight BARREL LATHE OPERATOR LAB BLOOD ORDERABLES Fin al Result Performing Organization Address City/[facility]/ZIP Co de Phone Number [facility] [address] [place] [address] * (ABNORMAL) Renal function panel (03/20/2024 1:03 AM VESSEL CREW MEMBER) Pathologist [facility] [place] Sodium 132(L) 135 - 145 mmol/L Potassium, pl 4.5 3.3 - 4.9 mmol/L [facility] Chloride 99 97 - 110 mmol/L [facility] CO2 21(L) 22 - 32 mmol/L [facility] Anion gap 12 2 - 15 mmol/L [facility] BUN 17 6 - 25 mg/dL [facility] Creatinine 1.03 0.80 - 1.30 mg/dL [facility] Glucose 119 70 - 199 mg/dL [facility] Comment: Interpretive Data Fasting glucose >/= 126 mg/dl is diagnostic for diabetes. Fasting is defined as no caloric intake [...] 2022. Calcium 8.8 8.5 - 10.3 mg/dL [facility] Phosphorus, pl 2.7 2.3 - 4.5 mg/dL [facility] Albumin 3.6 3.5 - 5.0 g/dL [facility] [facility] Blood 03/20/2024 1:03 AM V[employer]SEL [employer]W [employer]BER 03/20/2024 1:33 AM [employer]BER Ale Mcknight BARREL LATHE OPERATOR LAB BLOOD ORDERABLES Fin al Result Performing Organization Address City/[facility]/ZIP Co de Phone Number [facility] [address] [place] [address] * Prepare RBC: 2 Units (03/19/2024 4:56 PM V[employer]SEL [employer]BER) Product code [id number] [facility] Unit Number [id number] 2-F [facility] Product Blood Type OPOS [facility] Dispense Status RETURNED [facility] Product code [id number] Unit Number [id number] 3-Q [facility] Product Blood Type OPOS [facility] Dispense Status RETURNED [facility] Blood 03/19/2024 4:56 PM V[employer]BER Narrative [facility] - 03/19/2024 5:48 PM V[employer]SEL CREW MEMBER Specify Procedure:->iliac stent Are special requirements needed? (All products are leukoreduced and CMV- safe)- >No Date required:-[id number] LRRBC # of [id number] Reasons:-Hold for procedure (specify procedure)} Basil Adhikari MD BLOOD BANK PRODUCT ORDER AMARA Final Result [facility] [address] [place] [address] * CTA Abdomen Pelvis (03/19/2024 9:06 AM V[employer]BER) Anatomical Region Laterality Modality Body N/A Computed Tomogra phy 03/19/2024 12:2 8 PM [employer]BER Impressions 03/19/2024 12:49 PM [employer]BER 1. Left common iliac artery aneurysm measuring [...] Josr Lindsey M.D. Narrative 03/19/2024 12:49 PM V[employer]SEL [employer]BER EXAMINATION: CT ANGIOGRAPHY OF THE ABDOMEN AND [...] spine degenerative changes. Adductor complex intramuscular lipoma. Procedure Note Josr [...] Re sult * Potassium (03/19/2024 6:48 AM V[employer]BER) Potassium, pl 4.7 3.3 - 4.9 mmol/L Blood 03/19/2024 6:48 AM [employer]BER 03/19/2024 7:04 AM [employer]BER Brenda Mayberry NP LAB BLOOD ORDERABLES Final Result [facility] [address] Department [place] [address] * Critical Care (03/19/2024 6:40 AM V[employer]BER) Narrative Gian Robertson MD - 03/19/2024 6:40 AM [employer]BER Brenda Mayberry NP 03/19/2024 10:29 AM Critical Care Performed by: Brenda Mayberry NP Authorized by: Brenda Mayberry NP CRITICAL CARE: Team: [facility] CT Shift: AM Level of Billing: Subsequent Hospital Visit Level 3 My time spent with this patient was 45 minutes: Critical Provider Statement: I have seen and examined the patient on this day of service. I have reviewed and confirmed the history, physical exam, laboratory, and radiographic data as documented in the ICU note. I have reviewed and discussed my treatment plan with the patient's team and other medical/customer service consultant staff. This time was in addition to and separate from care provided by other practitioners on this day of service. us Brenda Mayberry NP IN CLINIC/BEDSIDE ORDERABL ES Final Result * XR Chest 1 View - Portable - in AM (03/19/2024 6:37 AM [employer]BER) Anatomical Region Laterality Modality Body, Chest N/A Computed Radiogr aphy 03/19/2024 7:56 AM [employer]BER Impressions 03/19/2024 7:56 AM [employer]BER Comparison is made to prior chest radiograph [...] Josselin Xavier M.D. Narrative 03/19/2024 7:56 AM [employer]BER EXAMINATION: XR CHEST 1 VIEW Procedure Note [...] by: Josselin Xavier M.D. us Ale Mcknight BARREL LATHE OPERATOR IMG XR PROCEDURES Final Result * POCT glucose (03/19/2024 6:01 AM [employer]BER) Glucose, POC 110 70 - 199 mg/dL Comment: For Glucose values <35 mg/dl when Hematocrit is >60 mg/dl,the test may not accurately detect significant hypoglycemia,and testing in the Laboratory should be considered if clinically indicated. Blood 03/19/2024 6:01 AM [employer]BER 03/19/2024 6:01 AM [employer]BER Basil Adhikari MD LAB POCT ORDERABLES - DE VICE Final Result Performing Organization Address [facility]/ZIP Co de Phone Number [facility] [address] [facility] [place] [address] * POCT glucose (03/19/2024 2:13 AM V[employer]BER) Glucose, POC 111 70 - 199 mg/dL Comment: For Glucose values <35 mg/dl when Hematocrit is >60 mg/dl,the test may not accurately detect significant hypoglycemia,and testing in the Laboratory should be considered if clinically indicated. Blood 03/19/2024 2:13 AM V[employer] CRE[employer] MEMBER 03/19/2024 2:13 AM [employer]BER Basil Adhikari MD LAB POCT ORDERABLES - DE VICE Final Result Performing Organization Address [facility] Co de Phone Number [facility] [address] [place] [address] * POCT glucose (03/19/2024 12:18 AM V[employer]BER) Glucose, POC 145 70 - 199 mg/dL Comment: For Glucose values <35 mg/dl when Hematocrit is >60 mg/dl,the test may not accurately detect significant hypoglycemia,and testing in the Laboratory should be considered if clinically indicated. Blood 03/19/2024 12:1 8 AM [employer]BER 03/19/2024 12:18 AM [employer]BER Basil Adhikari MD LAB POCT ORDERABLES - DE VICE Final Result Performing Organization Address [facility] de Phone Number [facility] [address] Department [place] [address] * eGFR (03/19/2024 12:04 AM V[employer]BER) eGFR 85 >=60 mL/min/1. 73 m2 Comment: Interpretive Data Reference Interval Normal >/= 90 mL/min/1.73m2 Mildly decreased* 60 - 89 mL/min/1.73m2 Mildly to moderately decreased 45 - 59 mL/min/1.73m2 Moderately to severely decreased 30 - 44 mL/min/1.73m2 Severely decreased 15 - 29 mL/min/1.73m2 Kidney Failure < 15 mL/min/1.73m2 *Relative to young adult level Estimated glomerular [...] reviewed 2021. Blood 03/19/2024 12:0 4 AM [employer]BER 03/19/2024 12:58 AM [employer]BER us Brenda Mayberry NP LAB BLOOD ORDERABLES Final Result Performing Organization Address [facility] de Phone Number [facility] [address] Department [place] [address] * (ABNORMAL) Calcium, ionized (03/19/2024 12:04 AM [employer]BER) Calcium, Ionized 4.47(L) 4.50 - 5.10 mg/dL Blood 03/19/2024 12:0 4 AM [employer]SEL CREW MEMBER 03/19/2024 12:26 AM [employer]BER Brenda Mayberry NP LAB BLOOD ORDERABLES Final Result Performing Organization Address [facility] Co de Phone Number [facility] [address] [facility] [place] [address] * (ABNORMAL) CBC without differential (03/19/2024 12:04 AM V[employer] MEMBER) Pathologist [facility] WBC 8.7 3.8 - 9.9 K/cumm Hgb 12.5(L) 13.0 - 17.5 g/dL [facility] Hct 36.8(L) 38.9 - 50.3 % [facility] Plt 103(L) 150 - 400 K/cumm [facility] MPV 10.4 9.1 - 12.3 fL [facility] RBC 4.14(L) 4.30 - 5.80 M/cumm [facility] MCV 88.9 81.3 - 96.4 fL [facility] MCH 30.2 27.1 - 33.3 pg [facility] MCHC 34.0 32.3 - 35.7 g/dL [facility] RDW CV 12.6 11.1 - 14.9 % [facility] RDW SD 41.0 35.7 - 48.1 fL [facility] NRBC abs 0.00 0.00 - 0.01 K/cumm [facility] Blood 03/19/2024 12:0 4 AM [employer] MEMBER 03/19/2024 12:58 AM [employer]BER Ale Mcknight BARREL LATHE OPERATOR LAB BLOOD ORDERABLES Fin al Result Performing Organization Address [facility] Co de Phone Number [facility] [address] Department [place] [address] * Magnesium (03/19/2024 12:04 AM V[employer] MEMBER) Pathologist [facility] Magnesium 2.0 1.4 - 2.5 mg/dL Blood 03/19/2024 12:0 4 AM [employer] MEMBER 03/19/2024 12:58 AM [employer]BER Ale Mcknight BARREL LATHE OPERATOR LAB BLOOD ORDERABLES Fin al Result Performing Organization Address [facility] Co de Phone Number [facility] [address] Department [place] [address] * (ABNORMAL) Renal function panel (03/19/2024 12:04 AM VESSEL [employer]W MEMBER) Sodium 131(L) 135 - 145 mmol/L Potassium, pl 5.1(H) 3.3 - 4.9 mmol/L [facility] Comment:Hemolyzed; potassium value may be falsely elevated by as much as 0.6 - 1.0 mmol/L. Suggest redraw and reanalysis Chloride 102 97 - 110 mmol/L [facility] CO2 18(L) 22 - 32 mmol/L [facility] Anion gap 11 2 - 15 mmol/L [facility] BUN 12 6 - 25 mg/dL [facility] Creatinine 0.88 0.80 - 1.30 mg/dL [facility] Glucose 146 70 - 199 mg/dL [facility] Comment: Interpretive Data Fasting glucose >/= 126 mg/dl is diagnostic for diabetes. Fasting is defined as no caloric intake [...] 2022. Calcium 8.5 8.5 - 10.3 mg/dL [facility] Phosphorus, pl 3.7 2.3 - 4.5 mg/dL [facility] Albumin 3.7 3.5 - 5.0 g/dL [facility] Blood 03/19/2024 12:0 4 AM V[employer]SEL CREW MEMBER 03/19/2024 12:58 AM V[employer] MEMBER us Ale Mcknight NP LAB BLOOD ORDERABLES Fin al Result [facility] [address] Department [place] [address] * POCT glucose (03/18/2024 9:02 PM V[employer] MEMBER) Glucose, POC 102 70 - 199 mg/dL Comment: For Glucose values <35 mg/dl when Hematocrit is >60 mg/dl,the test may not accurately detect significant hypoglycemia,and testing in the Laboratory should be considered if clinically indicated. Blood 03/18/2024 9:02 PM V[employer]SEL CREW MEMBER 03/18/2024 9:02 PM V[employer]SEL CREW MEMBER Basil Adhikari MD LAB POCT ORDERABLES - DE VICE Final Result Performing Organization Address [facility]/ZIP Co de Phone Number [facility] [address] [place] [address] * (ABNORMAL) Blood gas, arterial (03/18/2024 7:23 PM V[employer]SEL CRE[employer] MEMBER) pH, Art 7.45 7.35 - 7.45 PCO2, Arterial 28(L) 35 - 45 mmHg [facility] PO2, Arterial 195(H) 83 - 108 mmHg [facility] HCO3 Art (Calculated) 20 20 - 30 mmol/L [facility] BE, art -3 mmol/L [facility] Comment: Interpretive Data No Reference Range Established Current Interpretive Data was last revised on 2017 O2 Sat Art (Calculated) 100(H) 94 - 98 % [facility] Blood 03/18/2024 7:23 PM VESSEL CREW MEMBER 03/18/2024 7:28 PM V[employer]SEL CRE[employer] MEMBER us Brenda Mayberry NP LAB BLOOD ORDERABLES Final Result Performing Organization Address [facility]/ZIP Co de Phone Number [facility] [address] Department [place] [address] * POCT glucose (03/18/2024 7:12 PM VESSEL CRE[employer] MEMBER) Glucose, POC 114 70 - 199 mg/dL Comment: For Glucose values <35 mg/dl when Hematocrit is >60 mg/dl,the test may not accurately detect significant hypoglycemia,and testing in the Laboratory should be considered if clinically indicated. Blood 03/18/2024 7:12 PM VESSEL CREW MEMBER 03/18/2024 7:12 PM V[employer]SEL CREW MEMBER Basil Adhikari MD LAB POCT ORDERABLES - DE VICE Final Result Performing Organization Address [facility] Co de Phone Number [facility] [address] [place] [address] * Critical Care (03/18/2024 6:39 PM VESSEL CREW MEMBER) Narrative Gian Robertson MD - 03/18/2024 6:39 PM V[employer]SEL CREW MEMBER Roderick Couch DNP 03/19/2024 5:10 AM Critical Care Performed by: Roderick Couch DNP Authorized by: Roderick Couch DNP CRITICAL CARE: Team: [facility] CT Shift: PM Level of Billing: Subsequent Hospital Visit Level 3 My time spent with this patient was 50 minutes: Critical Provider Statement: I have seen and examined the patient on this day of service. I have reviewed and confirmed the history, physical exam, laboratory, and radiographic data as documented in the ICU note. I have reviewed and discussed my treatment plan with the patient's team and other medical/customer service consultant staff. This time was in addition to and separate from care provided by other practitioners on this day of service. Roderick Couch DNP IN CLINIC/BEDSIDE OR DERABLES Final Result * POCT glucose (03/18/2024 6:07 PM VESSEL CREW MEMBER) [facility] Glucose, POC 82 70 - 199 mg/dL Comment: For Glucose values <35 mg/dl when Hematocrit is >60 mg/dl,the test may not accurately detect significant hypoglycemia,and testing in the Laboratory should be considered if clinically indicated. Blood 03/18/2024 6:07 PM VESSEL CREW MEMBER 03/18/2024 6:07 PM VESSEL CREW MEMBER Basil Adhikari MD LAB POCT ORDERABLES - DE VICE Final Result Performing Organization Address [facility] Co de Phone Number [facility] [address] [place] [address] * XR Chest 1 View - Portable (03/18/2024 4:41 PM VESSEL CREW MEMBER) Anatomical Region Laterality Modality Body, Chest N/A Computed Radiogr aphy 03/18/2024 6:28 PM VESSEL CREW MEMBER Impressions 03/18/2024 6:28 PM VESSEL CREW MEMBER FINDINGS/IMPRESSION: Postoperative changes of ascending aortic replacement is seen with sternotomy wires, and prosthetic aortic valve in place. A right IJ central venous catheter tip terminates in the superior vena cava. The right IJ Vale-Christoph catheter terminates in the main pulmonary artery. Mediastinal drains are seen. Bilateral shoulder arthroplasties are seen. Surgical clips superimposes the neck. Minimal left basilar atelectatic changes are seen. There is no focal consolidation, pleural effusion or pneumothorax. Cardiomediastinum is stable. Electronically signed by: Starla Hidalgo M.D. Narrative 03/18/2024 6:28 PM VESSEL CREW MEMBER EXAMINATION: XR CHEST 1 VIEW HISTORY: cardiac [...] the superior vena cava. The right IJ Vale-Christoph catheter terminates in the main pulmonary artery. Mediastinal drains are seen. Bilateral shoulder arthroplasties are seen. Surgical clips superimposes the neck. Minimal left basilar atelectatic changes are seen. There is no focal consolidation, pleural effusion or pneumothorax. Cardiomediastinum is stable. Electronically signed by: Starla Hidalgo M.D. us Brenda Mayberry BARREL LATHE OPERATOR IMG XR PROCEDURES Final Re sult * POCT glucose (03/18/2024 4:27 PM VESSEL CREW MEMBER) Glucose, POC 121 70 - 199 mg/dL Comment: For Glucose values <35 mg/dl when Hematocrit is >60 mg/dl,the test may not accurately detect significant hypoglycemia,and testing in the Laboratory should be considered if clinically indicated. Blood 03/18/2024 4:27 PM VESSEL CREW MEMBER 03/18/2024 4:27 PM VESSEL CREW MEMBER us Basil Adhikari MD LAB POCT ORDERABLES - DE VICE Final Result [facility] [address] Department [place] [address] * Critical Care (03/18/2024 4:19 PM VESSEL CREW MEMBER) Narrative Gian Rboertson MD - 03/18/2024 4:19 PM V[employer]SEL CREW MEMBER Brenda Mayberry NP 03/18/2024 5:34 PM Critical Care Performed by: Brenda Mayberry NP Authorized by: Brenda Mayberry NP CRITICAL CARE: Team: [facility] CT Shift: AM Level of Billing: Critical Care My time spent with this patient was 60 minutes: Critical Provider Statement: I have seen and examined the patient on this day of service. I have reviewed and confirmed the history, physical exam, laboratory and radiologic data as documented in the signed ICU note. I have reviewed and discussed my treatment plan with the ICU team and other medical/customer service consultant staff, making frequent assessments and decisions [...] or life-threatening deterioration of the following conditions: I spent time reviewing and interpreting data from bedside monitors, laboratory results, and imaging, I spent time discussing the management of this critically ill patient with consultants and the medical staff and I spent time documenting in the medical record us Brenda Mayberry NP IN CLINIC/BEDSIDE ORDERABL ES Final Result * eGFR (03/18/2024 4:17 PM VESSEL CREW MEMBER) eGFR 81 >=60 mL/min/1. 73 m2 Comment: Interpretive Data Reference Interval Normal >/= 90 mL/min/1.73m2 Mildly decreased* 60 - 89 mL/min/1.73m2 Mildly to moderately decreased 45 - 59 mL/min/1.73m2 Moderately to severely decreased 30 - 44 mL/min/1.73m2 Severely decreased 15 - 29 mL/min/1.73m2 Kidney Failure < 15 mL/min/1.73m2 *Relative to young adult level Estimated glomerular [...] last reviewed 2021. Blood 03/18/2024 4:17 PM VESSEL CREW MEMBER 03/18/2024 4:32 PM VESSEL CREW MEMBER us Brenda Mayberry NP LAB BLOOD ORDERABLES Final Result [facility] [address] [place] [address] * (ABNORMAL) Calcium, ionized (03/18/2024 4:17 PM VESSEL CREW MEMBER) Pathologist [facility] [place] Calcium, Ionized 5.37(H) 4.50 - 5.10 mg/dL Blood 03/18/2024 4:17 PM VESSEL CREW MEMBER 03/18/2024 4:32 PM VESSEL CREW MEMBER Brenda Mayberry NP LAB BLOOD ORDERABLES Final Result [facility] [address] [facility] [place], [place] [id number] * aPTT (03/18/2024 4:17 PM VESSEL CREW MEMBER) Pathologist [facility] aPTT 37 28 - 38 sec Comment: Interpretive Data Heparin therapeutic range: 66.0 - 100.0 seconds. Range based on correlation with therapeutic heparin activity range of 0.3 - 0.7 Units/mL. Current interpretive data was last revised on 2022. Blood 03/18/2024 4:17 PM VESSEL CREW MEMBER 03/18/2024 4:32 PM VESSEL CREW MEMBER Brenda Mayberry NP LAB BLOOD ORDERABLES Final Result Performing Organization Address [facility] Co de Phone Number [facility] [address] Department of [employer] [place], [place] [id number] * (ABNORMAL) Protime-INR (03/18/2024 4:17 PM VESSEL CREW MEMBER) Pathologist [facility] [place] PT 16.0(H) 9.7 - 13.0 sec INR 1.47(H) 0.90 - 1.20 [facility] Comment: Interpretive data Oral anticoagulant therapeutic ranges: Venous thromboembolism prophylaxis or treatment: 2.0-3.0 CARDIOLOGY Standard range: 2.0-3.0 High-intensity range: 2.5-3.5 Refer to indication-specific guidelines for appropriate target ranges for prosthetic heart valve replacement. Current interpretive data was last revised on 2019. Blood 03/18/2024 4:17 PM VESSEL CREW MEMBER 03/18/2024 4:32 PM VESSEL CREW MEMBER Brenda Mayberry NP LAB BLOOD ORDERABLES Final Result Performing Organization Address City/[facility]/ZIP Co de Phone Number [facility] [address] Department [employer] [place], [place] [id number] * (ABNORMAL) CBC without differential (03/18/2024 4:17 PM VESSEL CREW MEMBER) Pathologist [facility] [place] WBC 8.5 3.8 - 9.9 K/cumm Hgb 11.1(L) 13.0 - 17.5 g/dL [facility] Hct 31.9(L) 38.9 - 50.3 % [facility] Plt 95(L) 150 - 400 K/cumm [facility] MPV 9.2 9.1 - 12.3 fL [facility] RBC 3.65(L) 4.30 - 5.80 M/cumm [facility] MCV 87.4 81.3 - 96.4 fL [facility] MCH 30.4 27.1 - 33.3 pg [facility] MCHC 34.8 32.3 - 35.7 g/dL [facility] RDW CV 12.5 11.1 - 14.9 % [facility] RDW SD 39.9 35.7 - 48.1 fL [facility] NRBC abs 0.00 0.00 - 0.01 K/cumm [facility] Blood 03/18/2024 4:17 PM VESSEL CREW MEMBER 03/18/2024 4:32 PM V[employer]SEL CREW MEMBER Brenda Mayberry NP LAB BLOOD ORDERABLES Final Result Performing Organization Address [facility] Co de Phone Number [facility] [address] [facility] [place] [address] * Phosphorus (03/18/2024 4:17 PM VESSEL CREW MEMBER) Phosphorus, pl 3.6 2.3 - 4.5 mg/dL Blood 03/18/2024 4:17 PM VESSEL CREW MEMBER 03/18/2024 4:32 PM VESSEL CREW MEMBER Brenda Mayberry NP LAB BLOOD ORDERABLES Final Result Performing Organization Address City/[facility] Co de Phone Number [facility] [address] [facility] [place] [address] * Magnesium (03/18/2024 4:17 PM VESSEL CREW MEMBER) Magnesium 2.3 1.4 - 2.5 mg/dL Blood 03/18/2024 4:17 PM VESSEL CREW MEMBER 03/18/2024 4:32 PM VESSEL CREW MEMBER Brenda Mayberry NP LAB BLOOD ORDERABLES Final Result Performing Organization Address City/[facility] Co de Phone Number [facility] [address] Department [place] [address] * (ABNORMAL) Blood gas, arterial (03/18/2024 4:17 PM VESSEL CREW MEMBER) [facility] pH, Art 7.41 7.35 - 7.45 PCO2, Arterial 33(L) 35 - 45 mmHg [facility] PO2, Arterial 168(H) 83 - 108 mmHg [facility] HCO3 Art (Calculated) 21 20 - 30 mmol/L [facility] BE, art -3 mmol/L [facility] Comment: Interpretive Data No Reference Range Established Current Interpretive Data was last revised on 2017 O2 Sat Art (Calculated) 100(H) 94 - 98 % [facility] Blood 03/18/2024 4:17 PM VESSEL CREW MEMBER 03/18/2024 4:32 PM V[employer] MEMBER Brenda Mayberry BARREL LATHE OPERATOR LAB BLOOD ORDERABLES Final Result [facility] [address] Department [place] [address] * (ABNORMAL) Basic metabolic panel (03/18/2024 4:17 PM VESSEL CREW MEMBER) [facility] Sodium 137 135 - 145 mmol/L Potassium, pl 4.3 3.3 - 4.9 mmol/L [facility] Chloride 108 97 - 110 mmol/L [facility] CO2 21(L) 22 - 32 mmol/L [facility] Anion gap 8 2 - 15 mmol/L [facility] BUN 12 6 - 25 mg/dL [facility] Creatinine 0.93 0.80 - 1.30 mg/dL [facility] Glucose 124 70 - 199 mg/dL [facility] Comment: Interpretive Data Fasting glucose >/= 126 mg/dl is diagnostic for diabetes. Fasting is defined as no caloric intake [...] 2022. Calcium 9.0 8.5 - 10.3 mg/dL [facility] Blood 03/18/2024 4:17 PM VESSEL CREW MEMBER 03/18/2024 4:32 PM V[employer]SEL CREW MEMBER Brenda Mayberry NP LAB BLOOD ORDERABLES Final Result Performing Organization Address [facility] Co de Phone Number [facility] [address] [place] [address] * aPTT (03/18/2024 3:38 PM VESSEL CREW MEMBER) aPTT 38 28 - 38 sec Comment: Interpretive Data Heparin therapeutic range: 66.0 - 100.0 seconds. Range based on correlation with therapeutic heparin activity range of 0.3 - 0.7 Units/mL. Current interpretive data was last revised on 2022. Blood 03/18/2024 3:38 PM VESSEL CREW MEMBER 03/18/2024 3:38 PM VESSEL CREW MEMBER Basil Adhikari MD LAB BLOOD ORDERABLES Fin al Result Performing Organization Address [facility] Co de Phone Number [facility] [address] [place] [address] * (ABNORMAL) Protime-INR (03/18/2024 3:38 PM VESSEL CREW MEMBER) PT 17.5(H) 9.7 - 13.0 sec INR 1.60(H) 0.90 - 1.20 [facility] Comment: Interpretive data Oral anticoagulant therapeutic ranges: Venous thromboembolism prophylaxis or treatment: 2.0-3.0 CARDIOLOGY Standard range: 2.0-3.0 High-intensity range: 2.5-3.5 Refer to indication-specific guidelines for appropriate target ranges for prosthetic heart valve replacement. Current interpretive data was last revised on 2019. Blood 03/18/2024 3:38 PM V[employer]SEL CREW MEMBER 03/18/2024 3:38 PM V[employer]SEL CREW MEMBER Basil Adhikari MD LAB BLOOD ORDERABLES Fin al Result Performing Organization Address [facility] Co de Phone Number [facility] [address] [facility] [place] [address] * Fibrinogen (03/18/2024 3:38 PM VESSEL CREW MEMBER) [facility] Fibrinogen 184 170 - 400 mg/dL Blood 03/18/2024 3:38 PM V[employer]SEL CREW MEMBER 03/18/2024 3:38 PM V[employer]SEL CREW MEMBER Basil Adhikari MD LAB BLOOD ORDERABLES Fin al Result Performing Organization Address [facility] de Phone Number [facility] [address] [facility] [place] [address] * (ABNORMAL) CBC without differential (03/18/2024 3:38 PM VESSEL CREW MEMBER) [facility] WBC 14.2(H) 3.8 - 9.9 K/cumm Hgb 10.6(L) 13.0 - 17.5 g/dL [facility] Hct 30.7(L) 38.9 - 50.3 % [facility] Plt 108(L) 150 - 400 K/cumm [facility] MPV 9.5 9.1 - 12.3 fL [facility] RBC 3.46(L) 4.30 - 5.80 M/cumm [facility] MCV 88.7 81.3 - 96.4 fL [facility] MCH 30.6 27.1 - 33.3 pg [facility] MCHC 34.5 32.3 - 35.7 g/dL [facility] RDW CV 12.5 11.1 - 14.9 % [facility] RDW SD 40.1 35.7 - 48.1 fL [facility] NRBC abs 0.00 0.00 - 0.01 K/cumm [facility] Blood 03/18/2024 3:38 PM V[employer]SEL CREW MEMBER 03/18/2024 3:38 PM V[employer]SEL CREW MEMBER Basil Adhikari MD LAB BLOOD ORDERABLES Fin al Result [facility] [address] [place] [address] * POC Activated Clotting Time, High Range (03/18/2024 3:35 PM VESSEL CREW MEMBER) [facility] ACT 130 87 - 138 sec Blood 03/18/2024 3:35 PM V[employer]SEL CREW MEMBER 03/18/2024 3:35 PM V[employer]SEL CREW MEMBER Basil Adhikari MD LAB BLOOD ORDERABLES Fin al Result Performing Organization Address [facility] Co de Phone Number [facility] [address] Department [place] [address] * (ABNORMAL) POC Blood Gas and Chemistries, Arterial - (03/18/2024 3:35 PM VESSEL CREW MEMBER) [facility] pH, Art POC 7.37 7.35 - 7.45 pCO2, Art POC 42 35 - 45 mmHg [facility] pO2, Art POC 330(H) 80 - 108 mmHg [facility] Na, POC 130(L) 135 - 145 mmol/L [facility] K POC 4.6 3.3 - 4.9 mmol/L [facility] Comment: Interpretive Data This method is not able to assess for hemolysis, which may falsely increase potassium concentrations. If further testing is needed to evaluate this result, consider in-laboratory plasma potassium. Current Interpretive Data was last revised on 2021. Cl, POC 103 97 - 110 mmol/L [facility] Ionized Ca, POC 6.06(H) 4.50 - 5.10 mg/dL [facility] Glucose, POC 157 70 - 199 mg/dL [facility] Lactate, POC 1.0 0.0 - 2.0 mmol/L [facility] O2Hb, Art POC 96.9(H) 90.0 - 95.0 % [facility] Carboxhgb fract 1.0 0.0 - 2.9 % [facility] Methemoglobin 1.3 0.0 - 1.9 % [facility] HHb, POC 0.9 0.0 - 5.0 % [facility] SO2 (shayne) arterial 99(H) 90 - 95 % [facility] BE, art, POC -1.0 -2.0 - 2.0 mmol/L [facility] HCO3, Art POC 24 20 - 30 mmol/L [facility] Hct, POC 34.0(L) 38.9 - 50.3 % [facility] Total Hb, POC 11.2(L) 13.0 - 17.5 g/dL [facility] Blood 03/18/2024 3:35 PM V[employer]SEL CREW MEMBER 03/18/2024 3:35 PM V[employer]SEL CREW MEMBER us Basil Adhikari MD LAB POCT ORDERABLES - DE VICE Final Result [facility] [address] Department [place] [address] * (ABNORMAL) POC Blood Gas and Chemistries, Arterial - (03/18/2024 2:41 PM V[employer]SEL CREW MEMBER) pH, Art POC 7.33(L) 7.35 - 7.45 pCO2, Art POC 45 35 - 45 mmHg [facility] pO2, Art POC 345(H) 80 - 108 mmHg [facility] Na, POC 129(L) 135 - 145 mmol/L [facility] K POC 5.3(H) 3.3 - 4.9 mmol/L [facility] Comment: Interpretive Data This method is not able to assess for hemolysis, which may falsely increase potassium concentrations. If further testing is needed to evaluate this result, consider in-laboratory plasma potassium. Current Interpretive Data was last revised on 2021. Cl, POC 102 97 - 110 mmol/L [facility] Ionized Ca, POC 4.66 4.50 - 5.10 mg/dL [facility] Glucose, POC 153 70 - 199 mg/dL [facility] Lactate, POC 0.8 0.0 - 2.0 mmol/L [facility] O2Hb, Art POC 96.6(H) 90.0 - 95.0 % [facility] Carboxhgb fract 1.2 0.0 - 2.9 % [facility] Methemoglobin 1.4 0.0 - 1.9 % [facility] HHb, POC 0.8 0.0 - 5.0 % [facility] SO2 (shayne) arterial 99(H) 90 - 95 % [facility] BE, art, POC -2.3(L) -2.0 - 2.0 mmol/L [facility] HCO3, Art POC 23 20 - 30 mmol/L [facility] Hct, POC 32.0(L) 38.9 - 50.3 % [facility] Total Hb, POC 10.7(L) 13.0 - 17.5 g/dL [facility] Blood 03/18/2024 2:4 1 PM V[employer]SEL CREW MEMBER 03/18/2024 2:41 PM V[employer]SEL CRE[employer] MEMBER Basil Adhikari MD LAB POCT ORDERABLES - DE VICE Final Result Performing Organization Address [facility]/ZIP Co de Phone Number [facility] [address] [place] [address] * (ABNORMAL) POC Activated Clotting Time, High Range (03/18/2024 2:40 PM VESSEL CREW MEMBER) Pathologist [facility] [place] ACT 474(H) 87 - 138 sec Blood 03/18/2024 2:40 PM V[employer]SEL CREW MEMBER 03/18/2024 2:40 PM V[employer]SEL CRE[employer] MEMBER Basil Adhikari MD LAB BLOOD ORDERABLES Fin al Result [facility] [address] Department [employer] [place], [place] [id number] * (ABNORMAL) POC Blood Gas and Chemistries, Venous - (03/18/2024 2:30 PM VESSEL CREW MEMBER) pH, Boyd POC 7.34 7.32 - 7.45 pCO2, boyd POC 47 40 - 50 mmHg [facility] pO2, boyd POC 52(H) 35 - 42 mmHg [facility] Na, POC 131(L) 135 - 145 mmol/L [facility] K POC 5.0(H) 3.3 - 4.9 mmol/L [facility] Comment: Interpretive Data This method is not able to assess for hemolysis, which may falsely increase potassium concentrations. If further testing is needed to evaluate this result, consider in-laboratory plasma potassium. Current Interpretive Data was last revised on 2021. Cl, POC 101 97 - 110 mmol/L [facility] Ionized Ca, POC 4.65 4.50 - 5.10 mg/dL [facility] Glucose, POC 130 70 - 199 mg/dL [facility] Lactate, POC 0.6 0.0 - 2.0 mmol/L [facility] O2Hb, Boyd POC 81.4(L) 90.0 - 95.0 % [facility] Carboxhgb fract 1.5 0.0 - 2.9 % [facility] Methemoglobin 1.1 0.0 - 1.9 % [facility] HHb, POC 16.0(H) 0.0 - 5.0 % [facility] O2 Sat, Boyd POC (Shayne) 84(H) 68 - 77 % [facility] Base excess, boyd POC -0.7 mmol/L [facility] HCO3, Boyd POC 24 20 - 30 mmol/L [facility] Hct, POC 33.0(L) 38.9 - 50.3 % [facility] Total Hb, POC 11.0(L) 13.0 - 17.5 g/dL [facility] Blood 03/18/2024 2:30 PM V[employer]SEL CREW MEMBER 03/18/2024 2:30 PM V[employer]SEL CRE[employer] MEMBER us Basil Adhikari MD LAB POCT ORDERABLES - DE VICE Final Result [facility] [address] Department [place] [address] * Surgical pathology (03/18/2024 2:09 PM VESSEL CREW MEMBER) Tissue (Aorta) 03/18/2024 2: 09 PM V[employer]SEL CREW MEMBER Comment:Placed in formalin a t end of case Narrative PATHOLOGY [facility] - 03/22/2024 11:52 AM VESSEL CREW MEMBER [address] [address] Tele: Josie Cárdenas MD - English Composition Instructor Note to Patients: This report may contain [...] the details. SURGICAL PATHOLOGY REPORT Patient Name: GIAN LEE Address: [address] [place] [address] Gender: M : 1940 (Age: 83) Service: Cardiothoracic Location: [place] [address], Hospital #: [id number] Patient Type: [facility] INPATIENT Taken: 03/18/2024 Received 03/18/2024 Reported: 03/22/2024 Physician(s): Hallie Hernandez M.D. DIAGNOSIS: Aorta, mini ascending aortic root replacement: - Benign aortic tissue with mild degenerative change jap/03/22/2024 11:52 Examining Pathologist: Isiah Das M.D. Report Reviewed and Electronically Signed By Isiah Das M.D. 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 The vascular wall intact, and mildly hemorrhagic. Load Out Supervisor sections are submitted as follows: A1 - Load Out Supervisor sections, A2-A6 - Additional sections. [facility]/03/19/2024 14:38 DMS,JAP MICROSCOPIC DESCRIPTION: Microscopic examination supports the above captioned diagnosis. a 2 mm focus of clustered neuroendocrine type cells is evident in slides from A1. These elements are further evaluated with IHC stains and show positive staining for synaptophysin, chromogranin, STEPHEN-3, and S100. These cells are negative for CDX2, TTF-1, and CD117. The morphology and location are interpreted as consistent with a paraganglion, part of the parasympathetic paraganglia, and considered a non-neoplastic entity. Clerical Data Follows A; 08203, 06397, 58454(6) REPORT IMAGES AND/OR SCANNED DOCUMENTS ONLY VIEWABLE IN PDF FORMAT The immunohistochemical test(s) cited in this report, if any, was developed and its performance characteristics determined by [facility] Pathology Department. It has not been cleared or approved by the U.S. Food and Drug Administration. The FDA has determined that such clearance or approval is not necessary. This test is used for clinical purposes. It should not be regarded as investigational or for research. [facility] Laboratory is certified under the Clinical Laboratory Improvement Amendments of 1988 (CLIA) as qualified to perform high complexity testing. Immunostains were performed on formalin-fixed paraffin embedded tissue using a polymer diaminobenzidine chromogen detection system. Antibodies used may include clone SP1 (rabbit monoclonal, estrogen receptor), clone 1E2 (rabbit monoclonal progesterone receptor), Ki-67 (rabbit monoclonal, 30-9), CD117 (rabbit polyclonal, c-kit), and anti-Her-2/jose (4B5) (rabbit monoclonal primary antibody). In the event that immunohistochemistry or special stains have been performed, attending physician has confirmed appropriateness of controls. Frozen section, operating room consultation, gross examination and dissection, and case sign out may have been performed in part or completely in the following laboratories: [facility], [address] [place] [address], [address], [address] [facility], [place] [address]. Basil Adhikari MD LAB PATHOLOGY ORDERABLES Final Result PATHOLOGY [facility] Laboratory Receiving [address] [place] [address] * (ABNORMAL) POC Activated Clotting Time, High Range (03/18/2024 2:08 PM VESSEL CREW MEMBER) ACT 627(H) 87 - 138 sec Blood 03/18/2024 2:08 PM V[employer]SEL CREW MEMBER 03/18/2024 2:08 PM V[employer]SEL CREW MEMBER us Basil Adhikari MD LAB BLOOD ORDERABLES Fin al Result [facility] [address] Department [place] [address] * (ABNORMAL) POC Blood Gas and Chemistries, Arterial - (03/18/2024 2:08 PM VESSEL CREW MEMBER) [facility] pH, Art POC 7.35 7.35 - 7.45 pCO2, Art POC 44 35 - 45 mmHg [facility] pO2, Art POC 417(H) 80 - 108 mmHg [facility] Na, POC 129(L) 135 - 145 mmol/L [facility] K POC 5.7(H) 3.3 - 4.9 mmol/L [facility] Comment: Interpretive Data This method is not able to assess for hemolysis, which may falsely increase potassium concentrations. If further testing is needed to evaluate this result, consider in-laboratory plasma potassium. Current Interpretive Data was last revised on 2021. Cl, POC 103 97 - 110 mmol/L [facility] Ionized Ca, POC 4.68 4.50 - 5.10 mg/dL [facility] Glucose, POC 122 70 - 199 mg/dL [facility] Lactate, POC 0.5 0.0 - 2.0 mmol/L [facility] O2Hb, Art POC 97.5(H) 90.0 - 95.0 % [facility] Carboxhgb fract 1.0 0.0 - 2.9 % [facility] Methemoglobin 0.8 0.0 - 1.9 % [facility] HHb, POC 0.7 0.0 - 5.0 % [facility] SO2 (shayne) arterial 99(H) 90 - 95 % [facility] BE, art, POC -1.4 -2.0 - 2.0 mmol/L [facility] HCO3, Art POC 24 20 - 30 mmol/L [facility] Hct, POC 33.0(L) 38.9 - 50.3 % [facility] Total Hb, POC 11.0(L) 13.0 - 17.5 g/dL [facility] Blood 03/18/2024 2:08 PM VESSEL CREW MEMBER 03/18/2024 2:08 PM V[employer]SEL CREW MEMBER us Basil Adhikari MD LAB POCT ORDERABLES - DE VICE Final Result [facility] [address] Department [place] [address] * (ABNORMAL) POC Blood Gas and Chemistries, Arterial - (03/18/2024 1:50 PM VESSEL CREW MEMBER) pH, Art POC 7.39 7.35 - 7.45 pCO2, Art POC 38 35 - 45 mmHg [facility] pO2, Art POC 426(H) 80 - 108 mmHg [facility] Na, POC 128(L) 135 - 145 mmol/L [facility] K POC 4.4 3.3 - 4.9 mmol/L [facility] Comment: Interpretive Data This method is not able to assess for hemolysis, which may falsely increase potassium concentrations. If further testing is needed to evaluate this result, consider in-laboratory plasma potassium. Current Interpretive Data was last revised on 2021. Cl, POC 101 97 - 110 mmol/L [facility] Ionized Ca, POC 4.82 4.50 - 5.10 mg/dL [facility] Glucose, POC 113 70 - 199 mg/dL [facility] Lactate, POC 0.5 0.0 - 2.0 mmol/L [facility] O2Hb, Art POC 97.1(H) 90.0 - 95.0 % [facility] Carboxhgb fract 1.4 0.0 - 2.9 % [facility] Methemoglobin 1.2 0.0 - 1.9 % [facility] HHb, POC 0.3 0.0 - 5.0 % [facility] SO2 (shayne) arterial 100(H) 90 - 95 % [facility] BE, art, POC -1.7 -2.0 - 2.0 mmol/L [facility] HCO3, Art POC 24 20 - 30 mmol/L [facility] Hct, POC 39.0 38.9 - 50.3 % [facility] Total Hb, POC 12.9(L) 13.0 - 17.5 g/dL [facility] Blood 03/18/2024 1:50 PM VESSEL CREW MEMBER 03/18/2024 1:50 PM VESSEL CREW MEMBER Basil Adhikari MD LAB POCT ORDERABLES - DE VICE Final Result Performing Organization Address [facility] Co de Phone Number [facility] [address] Department [place] [address] * (ABNORMAL) POC Activated Clotting Time, High Range (03/18/2024 1:49 PM VESSEL CREW MEMBER) ACT 608(H) 87 - 138 sec Blood 03/18/2024 1:49 PM VESSEL CREW MEMBER 03/18/2024 1:49 PM V[employer]SEL CREW MEMBER Basil Adhikari MD LAB BLOOD ORDERABLES Fin al Result Performing Organization Address [facility] Co de Phone Number [facility] [address] [employer] [place], [place] [address] * BW AN SHEATH INTRODUCER PERFORMABLE, PULMONARY ARTERY CATH, [place] AN PROCEDURE PLACEHOLDER (:41 PM VESSEL CREW MEMBER) Narrative Gamal Asher MD PhD - 03/18/2024 1:41 PM V[employer]SEL CREW MEMBER Gamal Asher MD PhD 03/18/2024 1:41 PM Central Venous Line Patient location: OR [...] tolerated procedure well with no complications Gamal Ashre MD PhD ANESTHESIA ORDERABLES Fi nal Result * NJ AN CENTRAL LINE QUADRUPLE LUMEN, [place] AN PROCEDURE PLACEHOLDER (03/18/2024 1:40 PM VESSEL CREW MEMBER) Narrative Gamal Asher MD PhD - 03/18/2024 1:40 PM VESSEL CREW MEMBER Gamal Asher MD PhD 03/18/2024 1:41 PM Central Venous Line Patient location: OR [...] PhD ANESTHESIA ORDERABLES Fi nal Result * [place] AN PROCEDURE PLACEHOLDER (03/18/2024 1:39 PM VESSEL CREW MEMBER) Narrative Gamal Asher MD PhD - 03/18/2024 1:39 PM VESSEL CREW MEMBER Gamal Asher MD PhD 03/18/2024 1:39 PM Arterial Line Patient location: OR End [...] PhD ANESTHESIA ORDERABLES Fi nal Result * NJ AN PROCEDURE PLACEHOLDER (03/18/2024 1:38 PM VESSEL CREW MEMBER) Gamal Robbins MD PhD - 03/18/2024 1:38 PM VESSEL CREW MEMBER Gamal Asher MD PhD 03/18/2024 1:38 PM Arterial Line Patient location: OR End [...] PhD ANESTHESIA ORDERABLES Fi nal Result * NJ AN ELECTIVE ENDOTRACHEAL AIRWAY, NJ AN PROCEDURE PLACEHOLDER (03/18/2024 1:37 PM VESSEL CREW MEMBER) Gamal Robbins MD PhD - 03/18/2024 1:37 PM VESSEL CREW MEMBER Gamal Asher MD PhD 03/18/2024 1:37 PM Airway Patient location: OR Urgency: elective [...] PhD ANESTHESIA ORDERABLES Fi nal Result * NJ AN PROCEDURE PLACEHOLDER (03/18/2024 1:29 PM VESSEL CREW MEMBER) Anatomical Region Laterality Modality Other Narrative 03/18/2024 1:29 PM VESSEL CREW MEMBER Derek Marin MD PhD 03/18/2024 4:18 PM LIDIA Date/time: Staff: Supervising anesthesiologist: Gamal [...] with surgeon: yes Images submitted to archive: yes Patient location: OR Intubated: yes Bite block placed: no Probe Insertion: easy Complications: no Probe type: adult Modalities: 2D imaging, continuous wave Doppler, pulsed wave Doppler and color Doppler Billing information: Physician requesting echo: Basil Adhikari MD CPT code: LIDIA placement and diagnostic exam, non-congenital (29836) ICD code(s) for medical necessity: I71.2 - [...] inferior: normal 16- Apical septal: normal 17- Collins: normal Valves: Aortic Valve: Annulus: dilated Leaflet [...] Clotting Time, High Range (03/18/2024 1:11 PM VESSEL CREW MEMBER) ACT 111 87 - 138 sec Blood 03/18/2024 1:11 PM VESSEL CREW MEMBER 03/18/2024 1:11 PM VESSEL CREW MEMBER Basil Adhikari MD LAB BLOOD ORDERABLES [facility] Result [facility] [address] [place] [address] * LIDIA Add-On For OR (03/18/2024 12:05 PM VESSEL CREW MEMBER) BSA 1.88 m2 CONS SCIMAGE Narrative CONS SCIMAGE - 03/18/2024 12:05 PM VESSEL CREW MEMBER Procedure Auto Finalized by Rule: BW CV LIDIA DURING CASE OR Please see the Anesthesiologist's Procedure Note for the results. Gamal Asher MD PhD CV ECHO PROCEDURES Final Result Performing Organization Address [facility]/ZIP Co de Phone Number CONS SCIMAGE * Check Sample (03/18/2024 9:54 AM VESSEL CREW MEMBER) ABO Rh O Positive MBC HCLL OTHER 03/18/2024 9:5 4 AM VESSEL CREW MEMBER 03/18/2024 10:20 AM VESSEL CREW MEMBER us Basil Adhikari MD LAB BLOOD ORDERABLES Fin al Result Performing Organization Address [facility] Co de Phone Number [facility] [address] [place] [address] MBC * ECG 12 lead (03/18/2024 9:34 AM VESSEL CREW MEMBER) 03/18/2024 9:34 AM VESSEL CREW MEMBER Narrative [facility] - 03/18/2024 10:15 AM VESSEL CREW MEMBER Vent Rate: 46 bpm RR Interval: 1277 msec [place] Interval: 115 msec QRS Duration: 84 msec QT Interval: 430 msec QTC Interval: 391 msec P-R-T [place]: 56 - -19 - -14 degrees IMPRESSION: SINUS BRADYCARDIA WITH SINUS ARRHYTHMIA WITH SHORT [place] INTERVAL POSSIBLE ANTERIOR MYOCARDIAL INFARCTION , PROBABLY OLD BORDERLINE ECG Electronically Signed By: Klaus Humphrey MD PhD us Ev Freed NP ECG ORDERABLES Final Res ult Performing Organization Address [facility] Co de Phone Number [employer] Kateeva [facility] * Prepare RBC: 4 Units (03/18/2024 9:12 AM VESSEL CREW MEMBER) Product code [id number] [facility] Unit Number [id number] 8-8 [facility] Product Blood Type OPOS [facility] Dispense Status RETURNED [facility] Product code [id number] Unit Number [id number] [id number] [facility] Product Blood Type OPOS [facility] Dispense Status RETURNED [facility] Product code [id number] [facility] Unit Number [id number] 7-W [facility] Product Blood Type OPOS [facility] Dispense Status RETURNED [facility] Product code [id number] [facility] Unit Number [id number] 0-U [facility] Product Blood Type OPOS [facility] Dispense Status RETURNED [facility] Blood 03/18/2024 9:12 AM VESSEL CREW MEMBER Narrative [facility] - 03/22/2024 7:46 AM VESSEL CREW MEMBER Specify Procedure:->tissue aortic root replacement Are special requirements needed? (All products are leukoreduced and CMV- safe)- >No Date required:-[id number] LRRBC # of [id number] Reasons:-Hold for procedure (specify procedure)} Ev Freed NP BLOOD BANK PRODUCT ORDERA BLES Final Result [facility] [address] [place] [address] * Differential, auto (03/15/2024 12:29 PM VESSEL CREW MEMBER) Neutrophil abs 2.5 1.5 - 6.5 K/cumm Imm gran abs 0.0 0.0 - 0.1 K/cumm [facility] Lymphocyte abs 1.1 0.8 - 3.3 K/cumm [facility] [facility] Monocyte abs 0.6 0.2 - 0.8 K/cumm [facility] Eosinophil abs 0.2 0.0 - 0.5 K/cumm [facility] Basophil abs 0.0 0.0 - 0.1 K/cumm [facility] Neutrophil pct 56.5 % [facility] Comment: Interpretive Data Percent cell count reference ranges are not reported, since discordance with absolute values may lead to misinterpretation of CBC data. Current Interpretive Data was last revised on 2017. Imm gran pct 0.5 % [facility] Comment: Interpretive Data Percent cell count reference ranges are not reported, since discordance with absolute values may lead to misinterpretation of CBC data. Current Interpretive Data was last revised on 2017. Lymphocyte pct 23.8 % [facility] Comment: Interpretive Data Percent cell count reference ranges are not reported, since discordance with absolute values may lead to misinterpretation of CBC data. Current Interpretive Data was last revised on 2017. Monocyte pct 14.5 % [facility] Comment: Interpretive Data Percent cell count reference ranges are not reported, since discordance with absolute values may lead to misinterpretation of CBC data. Current Interpretive Data was last revised on 2017. Eosinophil pct 3.8 % [facility] Comment: Interpretive Data Percent cell count reference ranges are not reported, since discordance with absolute values may lead to misinterpretation of CBC data. Current Interpretive Data was last revised on 2017. Basophil pct 0.9 % [facility] Comment: Interpretive Data Percent cell count reference ranges are not reported, since discordance with absolute values may lead to misinterpretation of CBC data. Current Interpretive Data was last revised on 2017. Blood 03/15/2024 12:2 9 PM [employer] 03/15/2024 12:29 PM [employer] us Basil Adhikari MD LAB BLOOD ORDERABLES Fin al Result [facility] [address] [place] [address] * CBC with auto differential (03/15/2024 12:29 PM [employer]) WBC 4.4 3.8 - 9.9 K/cumm Hgb 14.5 13.0 - 17.5 g/dL [facility] Hct 42.9 38.9 - 50.3 % [facility] Plt 156 150 - 400 K/cumm [facility] MPV 9.9 9.1 - 12.3 fL [facility] RBC 4.82 4.30 - 5.80 M/cumm [facility] MCV 89.0 81.3 - 96.4 fL [facility] MCH 30.1 27.1 - 33.3 pg [facility] MCHC 33.8 32.3 - 35.7 g/dL [facility] RDW CV 12.4 11.1 - 14.9 % [facility] RDW SD 40.8 35.7 - 48.1 fL [facility] NRBC abs 0.00 0.00 - 0.01 K/cumm [facility] Blood 03/15/2024 12:2 9 PM [employer] 03/15/2024 12:29 PM [employer] Result [facility] Basil Adhikari MD LAB BLOOD ORDERABLES Fin al Result Performing Organization Address City/[facility]/ZIP Co de Phone Number [facility] [address] Department [employer] [place], [place] [id number] * Type and screen (03/15/2024 12:29 PM [employer]) Alex, indirect Negative ABO Rh O Positive [facility] Blood 03/15/2024 12:2 9 PM [employer] 03/15/2024 12:45 PM [employer] Narrative [facility] - 03/15/2024 1:31 PM [employer] No blood transfusions last 90 days Surgery 03/18/24 No blood transfusions last 90 days Surgery 03/18/24 Has the patient had Daratumumab or Isatuximab in the past 6 months?->No Result [facility] Basil Adhikari MD LAB BLOOD BANK TEST ORDE RABLES Final Result Performing Organization Address [facility] Co de Phone Number [facility] [address] Department [place] [address] * Hemoglobin A1c (03/15/2024 12:29 PM [employer]) Hgb A1C 5.2 4.0 - 5.6 % Estimated Average Glucose 103 mg/dL [facility] Comment: The ADA recommends reporting an estimated Average Glucose (eAG) with all Hemoglobin A1c results using the equation derived from a study of 507 normal and diabetic adults. Minority populations were underrepresented and children were not included. (Diabetes Care 31:2161-2272, 2008). The eAG is not equivalent to a fasting glucose. Blood 03/15/2024 12:2 9 PM [employer] 03/15/2024 12:29 PM [employer] Result [facility] Basil Adhikari MD LAB BLOOD ORDERABLES Fin al Result Performing Organization Address [facility] Co de Phone Number [facility] [address] [place] [address] * eGFR (03/15/2024 12:28 PM [employer]) eGFR 65 >=60 mL/min/1. 73 m2 Comment: Interpretive Data Reference Interval Normal >/= 90 mL/min/1.73m2 Mildly decreased* 60 - 89 mL/min/1.73m2 Mildly to moderately decreased 45 - 59 mL/min/1.73m2 Moderately to severely decreased 30 - 44 mL/min/1.73m2 Severely decreased 15 - 29 mL/min/1.73m2 Kidney Failure < 15 mL/min/1.73m2 *Relative to young adult level Estimated glomerular [...] reviewed 2021. Blood 03/15/2024 12:2 8 PM [employer] 03/15/2024 12:28 PM [employer] Basil Adhikari MD LAB BLOOD ORDERABLES Fin al Result Performing Organization Address [facility] Co de Phone Number [facility] [address] [place] [address] * (ABNORMAL) Comprehensive metabolic panel (03/15/2024 12:28 PM [employer]) Sodium 134(L) 135 - 145 mmol/L Potassium, pl 4.7 3.3 - 4.9 mmol/L [facility] Chloride 98 97 - 110 mmol/L [facility] CO2 25 22 - 32 mmol/L [facility] Anion gap 11 2 - 15 mmol/L [facility] BUN 12 6 - 25 mg/dL [facility] Creatinine 1.11 0.80 - 1.30 mg/dL [facility] Glucose 82 70 - 199 mg/dL [facility] Comment: Interpretive Data Fasting glucose >/= 126 mg/dl is diagnostic for diabetes. Fasting is defined as no caloric intake [...] 2022. Calcium 9.3 8.5 - 10.3 mg/dL [facility] Bilirubin, total 0.8 0.1 - 1.2 mg/dL [facility] Protein, pl 6.8 6.5 - 8.5 g/dL [facility] Albumin 4.5 3.5 - 5.0 g/dL [facility] Alk phos 82 40 - 130 Units/L [facility] ALT 26 7 - 55 Units/L [facility] AST 39 10 - 50 Units/L [facility] Blood 03/15/2024 12:2 8 PM [employer] 03/15/2024 12:28 PM [employer] us Basil Adhikari MD LAB BLOOD ORDERABLES Fin al Result [facility] [address] [place] [address] * EMG/NCV - (02/05/2024 11:10 AM [employer]) Anatomical Region Laterality Modality EMG, EMG Impressions 02/05/2024 11:10 AM [employer] History: This is 83 years old male patient being evaluated for tingling and numbness of bilateral upper and lower extremities. Nerve conduction studies: Left radial antidromic sensory nerve conduction study showed slightly prolonged SNAP peak latency, normal amplitude and slow sensory nerve conduction velocity. Right radial antidromic sensory nerve conduction study showed normal SNAP peak latency, normal amplitude and normal sensory nerve conduction velocity. Left median orthodromic sensory nerve conduction study showed slightly prolonged SNAP peak latency, normal amplitude and slow sensory nerve conduction velocity. Right median orthodromic sensory nerve conduction study showed markedly prolonged SNAP peak latency, normal amplitude and slow sensory nerve conduction velocity. Left ulnar orthodromic sensory nerve conduction study showed slightly prolonged SNAP peak latency, normal amplitude and slightly slow sensory nerve conduction velocity. Right ulnar orthodromic sensory nerve conduction study showed borderline prolonged SNAP peak latency, normal amplitude and normal sensory nerve conduction velocity. Left median motor nerve conduction study showed slightly prolonged DML, low CMAP amplitude, normal motor nerve conduction velocity and normal F wave latency. Right median motor nerve conduction study showed markedly prolonged DML, slightly low CMAP amplitude, slightly slow motor nerve conduction velocity and prolonged F wave latency. Left ulnar motor nerve conduction study showed borderline prolonged DML, low CMAP amplitude, normal motor nerve conduction velocity and normal F wave latency. Right ulnar motor nerve conduction study showed normal DML, normal CMAP amplitude, normal motor nerve conduction velocity and normal F wave latency. Bilateral superficial peroneal antidromic sensory nerve conduction studies showed normal SNAP peak latencies, normal amplitudes and normal sensory nerve conduction velocities. Left sural antidromic sensory nerve conduction study showed normal SNAP peak latency, normal amplitude and normal sensory nerve conduction velocity. Right sural antidromic sensory nerve conduction study showed markedly prolonged SNAP peak latency, slightly low amplitude and slow sensory nerve conduction velocity. Bilateral peroneal motor nerve conduction studies when recording from EDB showed normal DMLs, moderately low CMAP amplitudes, normal motor nerve conduction velocities and normal F wave latencies. Bilateral tibial motor nerve conduction studies showed normal DMLs, normal CMAP amplitudes, normal motor nerve conduction velocities and normal F wave latencies. EMG studies: The concentric needle electrode examination was not performed because patient is on Xarelto. Impression: This is an abnormal study. There was electrophysiologic evidence suggestive of: 1. 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 2. 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 3. Mild left ulnar sensorimotor neuropathy. The site of lesion is undetermined. The clinical correlation is recommended. us Earl Bran II, MD NEUROLOGY ORDERABLES Final R esult from Last 3 Months Insurance [facility] [employer] MEDICARE [facility] Advance Directives For more information, please contact: [phone] * Full Code (Latest Code Status on File) Date Activated Date Inactivated Comments 04/03/2024 10:09 AM 04/20/2024 7:02 PM * Full Code Date Activated Date Inactivated Comments 03/18/2024 4:14 PM 03/27/2024 7:19 PM * Full Code Date Activated Date Inactivated Comments 12/19/2023 8:17 AM 12/19/2023 2:20 PM * Full Code Date Activated Date Inactivated Comments 10/31/2020 2:04 PM 10/31/2020 8:34 PM * Full Code Date Activated Date Inactivated Comments 09/09/2019 8:19 AM 09/09/2019 6:53 PM Care Teams Hatchery Worker Relationship Specialty Start Date End Date Martinez Pace MD [address] [place] [address] PCP - General 05/02/16 Dion Abraham MD [address] [place] [address] Referring Physician Cardiology 02/18/24 Basil Adhikari MD [address] [facility] [address] [place] [address] Consulting Physician Cardiothoracic Surgery 02/19/24
--- OUTSIDE RECORDS SUMMARY | 2024-05-05 09:32 | XMS_ITS ---
Author Organization [facility] [employer] Address [address] [place] [address] Care Team Providers Care Amortization Clerk Name Role Phone Carli Figueroa Unavailable [phone] REASON FOR VISIT Refills Medications Medication SIG (Take, Route, Fr equency, Duration) Notes Start Date End Date Status Mirtazapine 15 MG 1.5 tabs at bedtime Oral daily for 30 days Active Social History Sex Assigned At : Social History Observation Description Sex Assigned At Male Encounters Encounter Location Date Provider Diagnosis [facility] [employer] [facility] [address] [place] [address] 01/28/2024 Carli Figueroa Major depressive disorder, recurrent, 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 Assessments Encounter Date Diagnosis (ICD Code) Assessment Notes Treatment Notes Treatment Clinical Notes Section Notes 01/28/2024 Major depressive disorder, recurrent, mild (ICD-10 - F33.0) Plan Of Treatment Medication Medication Name Sig Start Date Stop Date Notes Mirtazapine 15 MG 1.5 tabs at bedtime Oral daily for 30 days Next Appt Details Provider Name:Carlishalom Damonlinus rivas, 08/06/2024 01:00:00 PM, [address], [place], [address], Progress Notes * GIAN LEEDOB:1940 (83 yo M)Acc No.[id number]:01/28/2024 Patient: Adan INIGUEZGIAN :1940 A ge:83 Y S ex:Male Address:[address] [facility] [place], [address] * Refills Refill Mirtazapine Tablet, 15 MG, Oral, 45, 1.5 tabs at bedtime, daily, 30 days, Refills=0 Subjective: * Chief Complaints: * R efills * Medical History: * Surgical History: * Hospitalization/Major Diagno stic Procedure: * Medications: Objective: * Vitals: * Physical Examination: Assessment: * Assessment: 1. M ajor depressive disorder, recurrent, mild - F33.0 Plan: * Treatment: * Procedure Codes: * true * Date: Generated for Candi chowdhury/Jeffrey/eTransmitting on: 0 05/05/2024 09:31 AM PUT IN [employer]AT ADJUSTER
--- OUTSIDE RECORDS SUMMARY | 2024-05-05 09:32 | XMS_ITS | Clinical Summary ---
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 30 tablet 5 Active midodrine [...] (11/24/2018): Added automatically from request for surgery [id number] Adenomatous polyp of cecum 06/18/2018 Overview (06/18/2018): Added automatically from request for surgery [id number] manager intermediate current use of anticoagulant therapy 0 11/07/2016 Basal cell carcinoma (BCC) of antihelix of ear 0 04/16/2016 Ascending aortic aneurysm 09/05/2015 Deep vein thrombosis (DVT) (CMS/HCC) 06/22/2015 Pulmonary embolism 06/22/2015 Thyroid disease Neuropathy Depression Overview (07/18/2017): Depression GARCÍA on CPAP OA (osteoarthritis) History of pulmonary embolus (PE) Encounters Date Type Department Care Team Description 04/16/2024 9:04 AM CRYSTAL GAZER Anesthesia Event [facility] [address] [place] [phone] Sara Schwartz MD Shelley, Joshua Michael, CRNA 04/16/2024 9:00 AM CRYSTAL GAZER - 04/16/2024 9:45 AM CRYSTAL GAZER Surgery [facility] [address] [place] [phone] Roderick Bedolla MD PERCUTANEOUS ENDOSCOPIC GASTROSTOMY 04/09/2024 Orders Only Cardiovascular and Thoracic Surgery [address] [place] [phone] Ev Freed NP Aneurysm of ascending aorta without rupture (HCC) (Primary Dx); Iliac aneurysm (CMS/HCC) (HCC); Aortic root aneurysm; Other pulmonary embolism without acute cor pulmonale, unspecified chronicity (HCC) 04/03/2024 9:45 AM CRYSTAL GAZER - 04/20/2024 3:00 PM CRYSTAL GAZER Hospital Encounter [place] [address] [phone] Pedro Senior MD Martin, Robert S., MD Barks, Marissa Montenegro, DO Vishnu Curtis MD Hammes, MD Gallito Alvarez, Louann Stuart MD Acute respiratory failure with [...] Discharge Disposition: Discharge to an Rehab facility 04/03/2024 Orders Only [facility] Hospitalists [address] [place] [phone] Zoran Leyva DO 03/30/2024 Orders Only Cardiovascular and Thoracic Surgery [address] [place] [address] Candis Chaparro, RN Aneurysm of ascending aorta without rupture (HCC) (Primary Dx); Iliac artery aneurysm (CMS/HCC) (HCC) 03/29/2024 Telephone Cardiovascular and Thoracic Surgery [address] [place] [address] Basil Adhikari MD 03/22/2024 3:00 PM CRYSTAL GAZER - 03/22/2024 5:15 PM CRYSTAL GAZER Surgery [facility] [address] [place] [phone] Basil Adhikari MD Left internal iliac plug, left iliac aneurysm repair [31018 (CPT )] 03/22/2024 2:54 PM CRYSTAL GAZER Anesthesia Event [facility] [address] [place] [phone] Gamal Asher MD PhD Deyvi Urrutia MD 03/18/2024 1:30 PM CRYSTAL GAZER - 03/18/2024 7:50 PM CRYSTAL GAZER Surgery [facility] [address] [place] [phone] Basil Adhikari MD Mini ascending aortic root replacement 03/18/2024 12:47 PM CRYSTAL GAZER Anesthesia Event [facility] [address] [place] [phone] Derek Marin MD PhD Gamal Asher MD PhD 03/18/2024 12:10 PM CRYSTAL GAZER Ancillary Procedure [facility] [address] [place] [phone] 03/18/2024 9:05 AM CRYSTAL GAZER - 03/27/2024 3:13 PM CRYSTAL GAZER Hospital Encounter [address] [phone] Basil Adhikari MD Iliac aneurysm (CMS/HCC) (HCC) (Primary Dx); Aortic root aneurysm; S/P AVR Discharge Disposition: Discharge to an Rehab facility 03/15/2024 11:50 AM CRYSTAL GAZER Lab [facility] Outpatient Lab [address] [place] [phone] Aneurysm of ascending aorta without rupture (HCC); Pre-op evaluation 03/15/2024 10:00 AM CRYSTAL GAZER Office Visit Cardiovascular and Thoracic Surgery [address] [place] [phone] Basil Adhikari MD Pre-op evaluation (Primary Dx); Aneurysm of ascending aorta without rupture (HCC) 03/11/2024 Telephone Cardiovascular and Thoracic Surgery [address] [place] [phone] Basil Adhikari MD 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 02/11/2024 Orders Only [facility] Cardiac Catheterization Lab [address] [place] [address] Fredrick Peña MD Iliac aneurysm (CMS/HCC) (HCC) (Primary Dx) 02/05/2024 9:00 AM CRYSTAL GAZER - 02/05/2024 11:59 PM CRYSTAL GAZER Hospital Encounter [facility] Neurology Testing [address] [place] [address] Numbness and tingling of upper extremity [R20.0, R20.2] (Primary Dx); Hereditary and idiopathic neuropathy Discharge Disposition: Discharge to home or self care from Last 3 Months Immunizations Immunization Administration Dates Next Due Influenza, [...] for BPH COLONOSCOPY POLYPECTOMY SHOULDER ARTHROSCOPY Right AORTIC ROOT REPLACEMENT 03/18/2024 Medical History Medical History Date Comments Hx Other Medical shoulder surger y; Comments: JOHN 12/03/2013 - Depression Depression Hx Other Medical right wrist gabi mike; Comments: JOHN 12/03/2013 - GERD (gastroesophageal reflux disease) Thyroid disease Neuropathy (CMS/HCC) GARCÍA on CPAP OA (osteoarthritis) History of pulmonary embolus (PE) Aortic aneurysm (HCC) ascending BPH (benign prostatic hyperplasia) Pulmonary emboli (HCC) 2016 Chronic constipation Colon polyp Hypothyroidism Venous thromboembolism Glaucoma 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 Never 04/06/2024 Do you belong to any clubs o r organizations such as baptist groups, unions, fraternal or athletic groups, or [...] any time in the past 12 m [facility], were you homeless or living in a correction (including now)? No 04/06/2024 Personal Safety Answer Date Recorded Have you ever been in or are you currently in a harmful physical or emotional relationship or is someone making you feel afraid or unsafe? Denies 04/03/2024 Sex and Gender Information Value Date Recorded Sex Assigned at Not on file Legal Sex Male 12:56 AM CRYSTAL GAZER Gender Identity Not on file Sexual Orientation Straight 10/21/2019 9: 52 AM CDT Obstetrics History Last Filed Vital Signs Vital Sign Reading Time Taken Comments Blood Pressure 96/54 04/20/2024 12:33 PM CRYSTAL GAZER Pulse 63 04/20/2024 12:33 PM CRYSTAL GAZER Temperature 36.1 C (97 F) 04/20/2024 12:33 PM CRYSTAL GAZER Respiratory Rate 16 04/20/2024 12:33 PM CRYSTAL GAZER Oxygen Saturation 98% 04/20/2024 12:33 PM CRYSTAL GAZER Inhaled Oxygen Concentration - - Weight 66.9 kg (147 lb 7.8 oz) 04/19/2024 8:12 A M CRYSTAL GAZER Height 172.7 cm (5' 8 ) 04/16/2024 8:23 AM CRYSTAL GAZER Body Mass Index 22.43 04/16/2024 8:23 AM CRYSTAL GAZER Plan of Treatment Health Maintenance Due Date Last Done Comments Depression Screening 1940 Hepatitis B Screening 07/30/1958 Pneumococcal vaccine 65+ (1 of 1 - PCV) 07/30/1989 Zoster Vaccine (1 of 2) 07/30/1989 Well Visit 65+ 07/30/2004 DTaP/Tdap/Td Vaccine (2 - Td or Tdap) 03/31/2022 Covid-19 Vaccine ( season) 2023, 04/18/2020 Fall Risk Assessment 04/20/2025 04/20/2024, 01/15/20 Influenza Vaccine Completed 01/16/2024, , 12/14/2012 Medical Devices Implanted Type Area Variety Lathe Operator Device Identifier Shelf Expiration Date Model / Serial / Lot Leyva Lifesciences Konect Resilia Aortic Valved Conduit 27mm [id number] - [id number] - [id number] Implanted:Qty: 1 on 03/18/2024 by Basil Adhikari MD at [facility] Prosthetic Valve N/A: Aortic Valve Leyva Lif[employer]iences 01/06/2027 [id number] / [id number] / [employer] 18f Manta Vascular Closure Device 5 - S0 - [id number] Implanted:Qty: 1 on 03/22/2024 by Basil Adhikari MD at [facility] Vascular Closure Device Teleflex [employer] Inc 01/06/20255 / 0 / [id number] Cement Bone Cmw 2 20 Gm Fast Set Sterile - [id number] Implanted:Qty: 1 on 2017 by Brennon Davis MD at [facility] Right: Shoulder Depuy Orthopaed[employer] Inc 10/15/2019 [id number] 0 / / [id number] Component Glenoid Comprehensive Regenerex Titanium Clay Porous Shoulder Modular Hybrid Post - [id number] Implanted:Qty: 1 on 2017 by Brennon Davis MD at [facility] Right: Shoulder Kavita [employer] Inc [id number] 01/21/2027 PT-1139 50 / / [id number] Component Glenoid Comprehensive Hybrid Large H4 Mm Shoulder Base Modular - [id number] Implanted:Qty: 1 on 2017 by Brennon Davis MD at [facility] Right: Shoulder [employer] [id number] 03/23/2022 [id number] / / [id number] Stem Humeral Comprehensive Porous Mini L83 Mm Od15 Mm Shoulder Reverse System - [id number] Implanted:Qty: 1 on 2017 by Brennon Davis MD at [facility] Right: Shoulder [employer] [id number] 04/10/2027 [id number] / / [id number] Head Humeral Bio-Modular [place]rmo 4 Mm Offset H22 Mm Od54 Mm Shoulder Sterile - [id number] Implanted:Qty: 1 on 2017 by Brennon Davis MD at [facility] Right: Shoulder [employer] Inc 08/16/2019 [id number] / / [id number] Cryolife Inc Graft Biological Cardiovascular Photofix 6x8cm Acellular Dermis Pfp 6x8 - [id number] Implanted:Qty: 1 on 03/18/2024 by Basil Adhikari MD at [facility] N/A: Aorta Cryolife Inc 10/24/2025 PFP 6X8 / / [id number] Arthrex Inc Device Closure Tigertape Sternal Cerclage Blunt Needle Ar-7289t - [id number] Implanted:Qty: 1 on 03/18/2024 by Basil Adhikari MD at [facility] N/A: Sternum Arthrex Inc 12/14/2028 AR-7289 T / / [id number] Arthrex Inc Device Closure Tigertape Sternal Cerclage Blunt Needle Ar-7289t - [id number] Implanted:Qty: 1 on 03/18/2024 by Basil Adhikari MD at [facility] N/A: Sternum Arthrex Inc 12/14/2028 AR-7289 T / / [id number] 2 Estrada Vascular Plug Occluder Cvasc Embl Self Expanding Amplatzer [id number] Nitinol 9-Avp2-014 - S0 - [id number] Implanted:Qty: 1 on 03/22/2024 by Basil Adhikari MD at [facility] Left: Internal Iliac (Hypogastr ic) Artery Estrada Vascular [id number] 05/14/2025 9-AVP2- 014 / 0 / [id number] Wl [employer] Excluder 18mm 14.5-16.5mm 11.5cm Stent Abrasion Resistant [id number] - [id number] - [id number] Implanted:Qty: 1 on 03/22/2024 by Basil Adhikari MD at [facility] Left: External Iliac Artery Wl [employer] [id number] 11/17/2026 [id number] 00 / [id number] / Wl [employer] Stent Graft Thoracic Conformable Tag [id number] - S0 - [id number] Implanted:Qty: 1 on 03/22/2024 by Basil Adhikari MD at [facility] Left: External Iliac Artery Wl [employer] [id number] 08/14/2026 [id number] 10 / 0 / Amplatzer Tree Loader Meat Lisa Amplatzer 14mm 100cm 8mm 1 Layer Wire Mesh 1 Lobe Design Optimal 9-Plug-014 - S0 - [id number] Implanted:Qty: 1 on 03/22/2024 by Basil Adhikari MD at [facility] Left: Internal Iliac (Hypogastr ic) Artery Amplatzer Tree Loader Meat Lisa 03/16/2028 9-PLUG- 014 / 0 / [id number] Procedures Procedure Name Priority Date/Time Associated Diagnosis Comments EGFR Routine 04/20/2024 12:20 AM CRYSTAL GAZER MAGNESIUM Routine 04/20/2024 12:20 AM CRYSTAL GAZER RENAL FUNCTION PANEL Routine 04/20/2024 12:20 AM CRYSTAL GAZER EGFR Routine 04/19/2024 12:41 AM CRYSTAL GAZER MAGNESIUM Routine 04/19/2024 12:41 AM CRYSTAL GAZER RENAL FUNCTION PANEL Routine 04/19/2024 12:41 AM CRYSTAL GAZER ECG 12-LEAD Routine 04/18/2024 10:45 AM CRYSTAL GAZER ECG 12-LEAD STAT 04/18/2024 7:41 AM CRYSTAL GAZER ECG 12-LEAD STAT 04/18/2024 3:01 AM CRYSTAL GAZER EGFR Routine 04/18/2024 12:24 AM CRYSTAL GAZER MAGNESIUM Routine 04/18/2024 12:24 AM CRYSTAL GAZER RENAL FUNCTION PANEL Routine 04/18/2024 12:24 AM CRYSTAL GAZER PERCUTANEOUS ENDOSCOPIC GASTROSTOMY 04/16/2024 9:04 AM CRYSTAL GAZER Dysphagia, unspecified type EGD 04/16/2024 7:56 AM CRYSTAL GAZER EGFR Routine 04/15/2024 12:25 AM CRYSTAL GAZER PROTIME-INR Routine 04/15/2024 12:25 AM CRYSTAL GAZER RENAL FUNCTION PANEL Routine 04/15/2024 12:25 AM CRYSTAL GAZER POCT GLUCOSE DEVICE Routine 04/13/2024 1 0:44 PM CRYSTAL GAZER FL MODIFIED BARIUM SWALLOW W VIDEO IP Routine 04/13/2024 2:06 PM CRYSTAL GAZER EGFR Routine 04/12/2024 1:38 AM CRYSTAL GAZER DIFFERENTIAL AUTO Routine 04/12/2024 1:3 8 AM CRYSTAL GAZER MAGNESIUM Routine 04/12/2024 1:38 AM CRYSTAL GAZER CBC WITH AUTO DIFFERENTIAL Routine 04/12/2024 1:38 AM CRYSTAL GAZER RENAL FUNCTION PANEL Routine 04/12/2024 1:38 AM CRYSTAL GAZER EGFR Routine 04/10/2024 12:21 AM CRYSTAL GAZER CBC WITHOUT DIFFERENTIAL Routine 04/10/2024 12:21 AM CRYSTAL GAZER MAGNESIUM Routine 04/10/2024 12:21 AM CRYSTAL GAZER RENAL FUNCTION PANEL Routine 04/10/2024 12:21 AM CRYSTAL GAZER EGFR Routine 04/09/2024 12:26 AM CRYSTAL GAZER CBC WITHOUT DIFFERENTIAL Routine 04/09/2024 12:26 AM CRYSTAL GAZER MAGNESIUM Routine 04/09/2024 12:26 AM CRYSTAL GAZER RENAL FUNCTION PANEL Routine 04/09/2024 12:26 AM CRYSTAL GAZER US CAROTIDS DUPLEX BILATERAL IP Routine 04/08/2024 5:50 PM CRYSTAL GAZER EGFR Routine 04/08/2024 12:52 AM CRYSTAL GAZER DIFFERENTIAL AUTO Routine 04/08/2024 12: 52 AM CRYSTAL GAZER MAGNESIUM Routine 04/08/2024 12:52 AM CRYSTAL GAZER RENAL FUNCTION PANEL Routine 04/08/2024 12:52 AM CRYSTAL GAZER CBC WITH AUTO DIFFERENTIAL Routine 04/08/2024 12:52 AM CRYSTAL GAZER MRI BRAIN WO CONTRAST IP Routine 04/08/2024 12:24 AM CRYSTAL GAZER EGFR Routine 04/07/2024 12:51 AM CRYSTAL GAZER DIFFERENTIAL AUTO Routine 04/07/2024 12: 51 AM CRYSTAL GAZER RENAL FUNCTION PANEL Routine 04/07/2024 12:51 AM CRYSTAL GAZER CBC WITH AUTO DIFFERENTIAL Routine 04/07/2024 12:51 AM CRYSTAL GAZER HEMOGLOBIN AND HEMATOCRIT Timed 04/06/2024 5:18 PM CRYSTAL GAZER XR CHEST 1 VIEW IP Routine 04/06/2024 5:06 AM CRYSTAL GAZER ADD ON LAB TEST Add-On 04/06/2024 3:29 AM CRYSTAL GAZER RENAL FUNCTION PANEL Routine 04/06/2024 2:29 AM CRYSTAL GAZER EGFR Routine 04/06/2024 2:29 AM CRYSTAL GAZER DIFFERENTIAL AUTO Routine 04/06/2024 2:2 9 AM CRYSTAL GAZER CBC WITH AUTO DIFFERENTIAL Routine 04/06/2024 2:29 AM CRYSTAL GAZER PROCALCITONIN Routine 04/06/2024 2:29 AM CRYSTAL GAZER BLOOD GAS, VENOUS Routine 04/06/2024 2:1 5 AM CRYSTAL GAZER POCT GLUCOSE DEVICE Routine 04/05/2024 1 2:05 PM CRYSTAL GAZER XR KUB ED Urgent/IP Urgent 04/05/2024 10:23 AM CRYSTAL GAZER FL MODIFIED BARIUM SWALLOW W VIDEO IP Routine 04/05/2024 9:52 AM CRYSTAL GAZER POCT GLUCOSE DEVICE Routine 04/05/2024 4 :30 AM CRYSTAL GAZER MAGNESIUM Routine 04/05/2024 3:39 AM CRYSTAL GAZER EGFR Routine 04/05/2024 3:39 AM CRYSTAL GAZER CBC WITHOUT DIFFERENTIAL Routine 04/05/2024 3:39 AM CRYSTAL GAZER RENAL FUNCTION PANEL Routine 04/05/2024 3:39 AM CRYSTAL GAZER EGFR STAT 04/04/2024 4:18 PM CRYSTAL GAZER RENAL FUNCTION PANEL STAT 04/04/2024 4:18 PM CRYSTAL GAZER OSMOLALITY, URINE Routine 04/04/2024 6:1 1 AM CRYSTAL GAZER CREATININE, URINE, RANDOM Routine 04/04/2024 6:11 AM CRYSTAL GAZER SODIUM, URINE, RANDOM Routine 04/04/2024 6:11 AM CRYSTAL GAZER EGFR Routine 04/04/2024 2:56 AM CRYSTAL GAZER RENAL FUNCTION PANEL Routine 04/04/2024 2:56 AM CRYSTAL GAZER TSH Routine 04/04/2024 2:56 AM CRYSTAL GAZER CBC WITHOUT DIFFERENTIAL Routine 04/04/2024 2:56 AM CRYSTAL GAZER EGFR Timed 04/03/2024 5:59 PM CRYSTAL GAZER RENAL FUNCTION PANEL Timed 04/03/2024 5:59 PM CRYSTAL GAZER MRSA ONLY (STAPHYLOCOCCUS AUREUS) PCR Routine 04/03/2024 3:55 PM CRYSTAL GAZER AEROBIC CULTURE AND GRAM STAIN Routine 04/03/2024 3:55 PM CRYSTAL GAZER ADD ON LAB TEST Add-On 04/03/2024 2:48 PM CRYSTAL GAZER ADD ON LAB TEST Add-On 04/03/2024 2:48 PM CRYSTAL GAZER ADD ON LAB TEST Add-On 04/03/2024 2:48 PM CRYSTAL GAZER ADD ON LAB TEST Add-On 04/03/2024 2:48 PM CRYSTAL GAZER TRANSTHORACIC ECHO (TTE) COMPLETE W DOPPLER/CF WO CONTRAST STAT 04/03/2024 2:46 PM CRYSTAL GAZER URIC ACID STAT 04/03/2024 11:06 AM CRYSTAL GAZER T4, FREE STAT 04/03/2024 11:06 AM CRYSTAL GAZER THYROID FUNCTION CASCADE STAT 04/03/2024 11:06 AM CRYSTAL GAZER CORTISOL STAT 04/03/2024 11:06 AM CRYSTAL GAZER OSMOLALITY, URINE Routine 04/03/2024 11: 06 AM CRYSTAL GAZER SODIUM, URINE, RANDOM Routine 04/03/2024 11:06 AM CRYSTAL GAZER EGFR STAT 04/03/2024 11:06 AM CRYSTAL GAZER URINALYSIS, MICROSCOPIC ONLY Routine 04/03/2024 11:06 AM CRYSTAL GAZER BILIRUBIN, DIRECT STAT 04/03/2024 11: 06 AM CRYSTAL GAZER CBC WITHOUT DIFFERENTIAL STAT 04/03/2024 11:06 AM CRYSTAL GAZER PROTIME-INR STAT 04/03/2024 11:06 AM CRYSTAL GAZER APTT STAT 04/03/2024 11:06 AM CRYSTAL GAZER PRO B-TYPE NATRIURETIC PEPTIDE STAT 04/03/2024 11:06 AM CRYSTAL GAZER LACTATE STAT 04/03/2024 11:06 AM CRYSTAL GAZER PHOSPHORUS STAT 04/03/2024 11:06 AM CRYSTAL GAZER MAGNESIUM STAT 04/03/2024 11:06 AM CRYSTAL GAZER COMPREHENSIVE METABOLIC PANEL STAT 04/03/2024 11:06 AM CRYSTAL GAZER TYPE AND SCREEN STAT 04/03/2024 11:06 AM CRYSTAL GAZER STREP PNEUMONIAE AG, URINE Routine 04/03/2024 11:06 AM CRYSTAL GAZER LEGIONELLA ANTIGEN, URINE Routine 04/03/2024 11:06 AM CRYSTAL GAZER URINALYSIS AND REFLEX TO MICROSCOPIC AND CULTURE Routine 04/03/2024 11:06 AM CRYSTAL GAZER XR CHEST 1 VIEW Critical/Life-T hreatening 04/03/2024 10:23 AM CRYSTAL GAZER XR CHEST 1 VIEW IP Routine 03/27/2024 6:38 AM CRYSTAL GAZER EGFR Routine 03/27/2024 12:27 AM CRYSTAL GAZER MAGNESIUM Routine 03/27/2024 12:27 AM CRYSTAL GAZER RENAL FUNCTION PANEL Routine 03/27/2024 12:27 AM CRYSTAL GAZER CBC WITHOUT DIFFERENTIAL Routine 03/27/2024 12:27 AM CRYSTAL GAZER URINALYSIS, MICROSCOPIC ONLY Routine 03/26/2024 11:53 AM CRYSTAL GAZER URINALYSIS AND REFLEX TO MICROSCOPIC AND CULTURE Routine 03/26/2024 11:53 AM CRYSTAL GAZER XR CHEST 1 VIEW IP Routine 03/26/2024 6:06 AM CRYSTAL GAZER EGFR Routine 03/26/2024 12:27 AM CRYSTAL GAZER MAGNESIUM Routine 03/26/2024 12:27 AM CRYSTAL GAZER RENAL FUNCTION PANEL Routine 03/26/2024 12:27 AM CRYSTAL GAZER CBC WITHOUT DIFFERENTIAL Routine 03/26/2024 12:27 AM CRYSTAL GAZER XR CHEST 1 VIEW IP Routine 03/25/2024 5:49 AM CRYSTAL GAZER EGFR Routine 03/25/2024 1:33 AM CRYSTAL GAZER MAGNESIUM Routine 03/25/2024 1:33 AM CRYSTAL GAZER RENAL FUNCTION PANEL Routine 03/25/2024 1:33 AM CRYSTAL GAZER CBC WITHOUT DIFFERENTIAL Routine 03/25/2024 1:33 AM CRYSTAL GAZER TYPE AND SCREEN Timed 03/25/2024 1:33 AM CRYSTAL GAZER XR CHEST 1 VIEW IP Routine 03/24/2024 8:05 AM CRYSTAL GAZER EGFR Routine 03/24/2024 2:16 AM CRYSTAL GAZER MAGNESIUM Routine 03/24/2024 2:16 AM CRYSTAL GAZER RENAL FUNCTION PANEL Routine 03/24/2024 2:16 AM CRYSTAL GAZER CBC WITHOUT DIFFERENTIAL Routine 03/24/2024 2:16 AM CRYSTAL GAZER XR CHEST 1 VIEW IP Routine 03/23/2024 6:41 AM CRYSTAL GAZER CRITICAL CARE Routine 03/23/2024 6:36 AM CRYSTAL GAZER Iliac aneurysm (CMS/HCC) (HCC) EGFR Routine 03/23/2024 1:16 AM CRYSTAL GAZER CALCIUM, IONIZED Routine 03/23/2024 1:16 AM CRYSTAL GAZER PROTIME-INR Routine 03/23/2024 1:16 AM CRYSTAL GAZER MAGNESIUM Routine 03/23/2024 1:16 AM CRYSTAL GAZER RENAL FUNCTION PANEL Routine 03/23/2024 1:16 AM CRYSTAL GAZER CBC WITHOUT DIFFERENTIAL Routine 03/23/2024 1:16 AM CRYSTAL GAZER CRITICAL CARE Routine 03/22/2024 8:16 PM CRYSTAL GAZER 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 Routine 03/22/2024 6 :38 PM CRYSTAL GAZER EGFR STAT 03/22/2024 6:30 PM CRYSTAL GAZER CALCIUM, IONIZED STAT 03/22/2024 6:30 PM CRYSTAL GAZER MAGNESIUM STAT 03/22/2024 6:30 PM CRYSTAL GAZER RENAL FUNCTION PANEL STAT 03/22/2024 6:30 PM CRYSTAL GAZER PROTIME-INR STAT 03/22/2024 6:30 PM CRYSTAL GAZER APTT STAT 03/22/2024 6:30 PM CRYSTAL GAZER CBC WITHOUT DIFFERENTIAL STAT 03/22/2024 6:30 PM CRYSTAL GAZER CRITICAL CARE Routine 03/22/2024 5:43 PM CRYSTAL GAZER Iliac aneurysm (CMS/HCC) (HCC) REVAS ENDOVASILIAC W STNT [id number] Routine 03/22/2024 4:52 PM CRYSTAL GAZER Iliac aneurysm (CMS/HCC) (HCC) POCT ACTIVATED CLOTTING TIME, HIGH RANGE Routine 03/22/2024 4:51 PM CRYSTAL GAZER POC BLOOD GAS AND CHEMISTRIES, VENOUS Routine 03/22/2024 4:29 PM CRYSTAL GAZER POCT ACTIVATED CLOTTING TIME, HIGH RANGE Routine 03/22/2024 4:10 PM CRYSTAL GAZER POCT ACTIVATED CLOTTING TIME, HIGH RANGE Routine 03/22/2024 4:00 PM CRYSTAL GAZER POCT ACTIVATED CLOTTING TIME, HIGH RANGE Routine 03/22/2024 3:56 PM CRYSTAL GAZER POCT ACTIVATED CLOTTING TIME, HIGH RANGE Routine 03/22/2024 3:28 PM CRYSTAL GAZER POCT ACTIVATED CLOTTING TIME, LOW RANGE Routine 03/22/2024 3:21 PM CRYSTAL GAZER AR AN PROCEDURE PLACEHOLDER Routine 03/22/2024 3:08 PM CRYSTAL GAZER AR AN ELECTIVE ENDOTRACHEAL AIRWAY Routine 03/22/2024 3:08 PM CRYSTAL GAZER PREPARE RBC STAT 03/22/2024 2:42 PM CRYSTAL GAZER XR CHEST 1 VIEW IP Routine 03/22/2024 7:26 AM CRYSTAL GAZER EGFR Routine 03/22/2024 1:34 AM CRYSTAL GAZER MAGNESIUM Routine 03/22/2024 1:34 AM CRYSTAL GAZER RENAL FUNCTION PANEL Routine 03/22/2024 1:34 AM CRYSTAL GAZER CBC WITHOUT DIFFERENTIAL Routine 03/22/2024 1:34 AM CRYSTAL GAZER TYPE AND SCREEN Timed 03/22/2024 1:34 AM CRYSTAL GAZER APTT STAT 03/21/2024 8:12 PM CRYSTAL GAZER APTT STAT 03/21/2024 12:40 PM CRYSTAL GAZER APTT Timed 03/21/2024 10:35 AM CRYSTAL GAZER XR CHEST 1 VIEW IP Routine 03/21/2024 7:43 AM CRYSTAL GAZER APTT STAT 03/21/2024 2:27 AM CRYSTAL GAZER EGFR Routine 03/21/2024 2:24 AM CRYSTAL GAZER MAGNESIUM Routine 03/21/2024 2:24 AM CRYSTAL GAZER RENAL FUNCTION PANEL Routine 03/21/2024 2:24 AM CRYSTAL GAZER CBC WITHOUT DIFFERENTIAL Routine 03/21/2024 2:24 AM CRYSTAL GAZER APTT STAT 03/20/2024 4:57 PM CRYSTAL GAZER APTT STAT 03/20/2024 9:27 AM CRYSTAL GAZER PROTIME-INR STAT 03/20/2024 9:27 AM CRYSTAL GAZER XR CHEST 1 VIEW IP Routine 03/20/2024 9:17 AM CRYSTAL GAZER EGFR Routine 03/20/2024 1:03 AM CRYSTAL GAZER MAGNESIUM Routine 03/20/2024 1:03 AM CRYSTAL GAZER CALCIUM, IONIZED Routine 03/20/2024 1:03 AM CRYSTAL GAZER RENAL FUNCTION PANEL Routine 03/20/2024 1:03 AM [facility] CBC WITHOUT DIFFERENTIAL Routine 03/20/2024 1:03 AM [facility] PREPARE RBC STAT 03/19/2024 4:56 PM [facility] CTA ABDOMEN PELVIS W WO CONTRAST IP Routine 03/19/2024 9:06 AM [facility] POTASSIUM LEVEL STAT 03/19/2024 6:48 AM [facility] CRITICAL CARE Routine 03/19/2024 6:40 AM [facility] 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 IP Routine 03/19/2024 6:37 AM [facility] POCT GLUCOSE DEVICE Routine 03/19/2024 6 :01 AM [facility] POCT GLUCOSE DEVICE Routine 03/19/2024 2 :13 AM [facility] POCT GLUCOSE DEVICE Routine 03/19/2024 1 2:18 AM [facility] EGFR Routine 03/19/2024 12:04 AM [facility] MAGNESIUM Routine 03/19/2024 12:04 AM [facility] CALCIUM, IONIZED Routine 03/19/2024 12:0 4 AM [facility] RENAL FUNCTION PANEL Routine 03/19/2024 12:04 AM [facility] CBC WITHOUT DIFFERENTIAL Routine 03/19/2024 12:04 AM [facility] POCT GLUCOSE DEVICE Routine 03/18/2024 9 :02 PM [facility] EXTUBATION Routine 03/18/2024 7:38 PM [facility] BLOOD GAS, ARTERIAL STAT 03/18/2024 7 :23 PM [facility] POCT GLUCOSE DEVICE Routine 03/18/2024 7 :12 PM [facility] CRITICAL CARE Routine 03/18/2024 6:39 PM [facility] 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 Routine 03/18/2024 6 :07 PM [facility] XR CHEST 1 VIEW ED Urgent/IP Urgent 03/18/2024 4:41 PM [facility] POCT GLUCOSE DEVICE Routine 03/18/2024 4 :27 PM [facility] CRITICAL CARE Routine 03/18/2024 4:19 PM [facility] EGFR STAT 03/18/2024 4:17 PM [facility] APTT STAT 03/18/2024 4:17 PM [facility] PROTIME-INR STAT 03/18/2024 4:17 PM [facility] CBC WITHOUT DIFFERENTIAL STAT 03/18/2024 4:17 PM [facility] BLOOD GAS, ARTERIAL STAT 03/18/2024 4 :17 PM [facility] CALCIUM, IONIZED STAT 03/18/2024 4:17 PM [facility] MAGNESIUM STAT 03/18/2024 4:17 PM [facility] BASIC METABOLIC PANEL STAT 03/18/2024 4:17 PM [facility] PHOSPHORUS STAT 03/18/2024 4:17 PM CRYSTAL GAZER PROTIME-INR STAT 03/18/2024 3:38 PM CRYSTAL GAZER FIBRINOGEN STAT 03/18/2024 3:38 PM CRYSTAL GAZER CBC WITHOUT DIFFERENTIAL STAT 03/18/2024 3:38 PM CRYSTAL GAZER APTT STAT 03/18/2024 3:38 PM CRYSTAL GAZER POC BLOOD GAS AND CHEMISTRIES, ARTERIAL Routine 03/18/2024 3:35 PM CRYSTAL GAZER POCT ACTIVATED CLOTTING TIME, HIGH RANGE Routine 03/18/2024 3:35 PM CRYSTAL GAZER POC BLOOD GAS AND CHEMISTRIES, ARTERIAL Routine 03/18/2024 2:41 PM CRYSTAL GAZER POCT ACTIVATED CLOTTING TIME, HIGH RANGE Routine 03/18/2024 2:40 PM CRYSTAL GAZER POC BLOOD GAS AND CHEMISTRIES, VENOUS Routine 03/18/2024 2:30 PM CRYSTAL GAZER SURGICAL PATHOLOGY Routine 03/18/2024 2: 09 PM CRYSTAL GAZER Aortic root aneurysm POC BLOOD GAS AND CHEMISTRIES, ARTERIAL Routine 03/18/2024 2:08 PM CRYSTAL GAZER POCT ACTIVATED CLOTTING TIME, HIGH RANGE Routine 03/18/2024 2:08 PM CRYSTAL GAZER POC BLOOD GAS AND CHEMISTRIES, ARTERIAL Routine 03/18/2024 1:50 PM CRYSTAL GAZER POCT ACTIVATED CLOTTING TIME, HIGH RANGE Routine 03/18/2024 1:49 PM CRYSTAL GAZER AR AN PROCEDURE PLACEHOLDER Routine 03/18/2024 1:41 PM CRYSTAL GAZER PULMONARY ARTERY CATH Routine 03/18/2024 1:41 PM CRYSTAL GAZER BW AN SHEATH INTRODUCER PERFORMABLE Routine 03/18/2024 1:41 PM CRYSTAL GAZER AR AN PROCEDURE PLACEHOLDER Routine 03/18/2024 1:40 PM CRYSTAL GAZER AR AN CENTRAL LINE QUADRUPLE LUMEN Routine 03/18/2024 1:40 PM CRYSTAL GAZER AR AN PROCEDURE PLACEHOLDER Routine 03/18/2024 1:39 PM CRYSTAL GAZER AR AN PROCEDURE PLACEHOLDER Routine 03/18/2024 1:38 PM CRYSTAL GAZER AR AN PROCEDURE PLACEHOLDER Routine 03/18/2024 1:37 PM CRYSTAL GAZER AR AN ELECTIVE ENDOTRACHEAL AIRWAY Routine 03/18/2024 1:37 PM CRYSTAL GAZER AR AN PROCEDURE PLACEHOLDER Routine 03/18/2024 1:29 PM CRYSTAL GAZER POCT ACTIVATED CLOTTING TIME, HIGH RANGE Routine 03/18/2024 1:11 PM CRYSTAL GAZER REPLACEMENT AORTIC ROOT 03/18/2024 12:46 PM CRYSTAL GAZER Aortic root aneurysm LIDIA ADD-ON FOR OR Routine 03/18/2024 12: 05 PM CRYSTAL GAZER B CHECK SAMPLE STAT 03/18/2024 9:54 AM CRYSTAL GAZER ECG 12-LEAD Routine 03/18/2024 9:34 AM CRYSTAL GAZER PREPARE RBC STAT 03/18/2024 9:12 AM CRYSTAL GAZER DIFFERENTIAL AUTO Routine 03/15/2024 12: 29 PM CRYSTAL GAZER Aneurysm of ascending aorta without rupture (HCC) Pre-op evaluation HEMOGLOBIN A1C Routine 03/15/2024 12:29 PM CRYSTAL GAZER Aneurysm of ascending aorta without rupture (HCC) Pre-op evaluation CBC WITH AUTO DIFFERENTIAL Routine 03/15/2024 12:29 PM CRYSTAL GAZER Aneurysm of ascending aorta without rupture (HCC) Pre-op evaluation TYPE AND SCREEN Routine 03/15/2024 12:29 PM CRYSTAL GAZER Aneurysm of ascending aorta without rupture (HCC) Pre-op evaluation EGFR Routine 03/15/2024 12:28 PM CRYSTAL GAZER Aneurysm of ascending aorta without rupture (HCC) Pre-op evaluation COMPREHENSIVE METABOLIC PANEL Routine 03/15/2024 12:28 PM CRYSTAL GAZER Aneurysm of ascending aorta without rupture (HCC) Pre-op evaluation EMG/NCV Routine 02/05/2024 11:10 AM CRYSTAL GAZER Hereditary and idiopathic neuropathy from Last 3 Months Results * eGFR (04/20/2024 12:20 AM CRYSTAL GAZER) eGFR 71 >=60 mL/min/1. 73 m2 Comment: [...] reviewed 2021. Blood 04/20/2024 12:2 0 AM CRYSTAL GAZER 04/20/2024 12:48 AM CRYSTAL GAZER us Louann Conti MD LAB BLOOD ORDERABLES F inal Result [facility] [address] Department [place] [address] * Magnesium (04/20/2024 12:20 AM CRYSTAL GAZER) Pathologist [facility] Magnesium 2.2 1.4 - 2.5 mg/dL Blood 04/20/2024 12:2 0 AM CRYSTAL GAZER 04/20/2024 12:48 AM CRYSTAL GAZER Louann Conti MD LAB BLOOD ORDERABLES F inal Result [facility] [address] Department [place] [address] * (ABNORMAL) Renal function panel (04/20/2024 12:20 AM CRYSTAL GAZER) Pathologist [facility] Sodium 138 135 - 145 mmol/L Potassium, pl 4.3 3.3 - 4.9 mmol/L [facility] Chloride 102 97 - 110 mmol/L [facility] CO2 26 22 - 32 mmol/L [facility] Anion gap 10 2 - 15 mmol/L [facility] BUN 26(H) 6 - 25 mg/dL [facility] Creatinine 1.04 0.80 - 1.30 mg/dL [facility] Glucose 119 70 - 199 mg/dL [facility] Comment: Interpretive Data Fasting glucose >/= [...] 2022. Calcium 8.5 8.5 - 10.3 mg/dL [facility] Phosphorus, pl 2.9 2.3 - 4.5 mg/dL [facility] Albumin 3.5 3.5 - 5.0 g/dL [facility] Blood 04/20/2024 12:2 0 AM CRYSTAL GAZER 04/20/2024 12:48 AM CRYSTAL GAZER Louann Conti MD LAB BLOOD ORDERABLES F inal Result Performing Organization Address City/[facility] Co de Phone Number [facility] [address] Department [place] [address] * eGFR (04/19/2024 12:41 AM CRYSTAL GAZER) eGFR 72 >=60 mL/min/1. 73 m2 Comment: [...] reviewed 2021. Blood 04/19/2024 12:4 1 AM CRYSTAL GAZER 04/19/2024 12:56 AM CRYSTAL GAZER Louann Conti MD LAB BLOOD ORDERABLES F inal Result Performing Organization Address City/[facility]/ZIP Co de Phone Number [facility] [address] Department [place] [address] * Magnesium (04/19/2024 12:41 AM CRYSTAL GAZER) Magnesium 2.3 1.4 - 2.5 mg/dL Blood 04/19/2024 12:4 1 AM CRYSTAL GAZER 04/19/2024 12:56 AM CRYSTAL GAZER Louann Conti MD LAB BLOOD ORDERABLES F inal Result [facility] [address] [place] [address] * (ABNORMAL) Renal function panel (04/19/2024 12:41 AM CRYSTAL GAZER) Sodium 138 135 - 145 mmol/L Potassium, pl 4.6 3.3 - 4.9 mmol/L [facility] Chloride 103 97 - 110 mmol/L [facility] CO2 26 22 - 32 mmol/L [facility] Anion gap 9 2 - 15 mmol/L [facility] BUN 31(H) 6 - 25 mg/dL [facility] Creatinine 1.02 0.80 - 1.30 mg/dL [facility] Glucose 97 70 - 199 mg/dL [facility] Comment: Interpretive Data Fasting glucose >/= [...] 2022. Calcium 8.6 8.5 - 10.3 mg/dL [facility] Phosphorus, pl 3.0 2.3 - 4.5 mg/dL [facility] Albumin 3.5 3.5 - 5.0 g/dL [facility] Blood 04/19/2024 12:4 1 AM CRYSTAL GAZER 04/19/2024 12:56 AM CRYSTAL GAZER Louann Conti MD LAB BLOOD ORDERABLES F inal Result [facility] [address] [place] [address] * ECG 12 lead (04/18/2024 10:45 AM CRYSTAL GAZER) 04/18/2024 10:4 5 AM CRYSTAL GAZER Narrative [facility] - 04/18/2024 1:35 PM CRYSTAL GAZER Vent Rate: 66 bpm RR Interval: 897 msec AR Interval: 0 msec QRS Duration: 91 msec QT Interval: 251 msec QTC Interval: 265 msec P-R-T [place]: 0 - 12 - 0 degrees IMPRESSION: ATRIAL FIBRILLATION NONSPECIFIC ST \T\ T-WAVE ABNORMALITY ABNORMAL RHYTHM ECG Electronically Signed By: Klaus Humphrey MD PhD us Klaus Humphrey MD PhD ECG ORDERABLES Final Result Performing Organization Address [facility] Co de Phone Number [facility] * ECG 12 lead (04/18/2024 7:41 AM CRYSTAL GAZER) 04/18/2024 7:41 AM CRYSTAL GAZER Narrative [facility] - 04/18/2024 7:53 AM CRYSTAL GAZER Vent Rate: 65 bpm RR Interval: 921 msec AR Interval: 0 msec QRS Duration: 101 msec QT Interval: 442 msec QTC Interval: 453 msec P-R-T [place]: 0 - 2 - 10 degrees IMPRESSION: ATRIAL FIBRILLATION NONSPECIFIC T-WAVE ABNORMALITY ABNORMAL RHYTHM ECG Electronically Signed By: Klaus Humphrey MD PhD us Louann Conti MD ECG ORDERABLES Final Result Performing Organization Address [facility] Co de Phone Number [facility] * ECG 12 lead (04/18/2024 3:01 AM CRYSTAL GAZER) 04/18/2024 3:01 AM CRYSTAL GAZER Narrative [facility] - 04/18/2024 7:57 AM CRYSTAL GAZER Vent Rate: 64 bpm RR Interval: 930 msec AR Interval: 0 msec QRS Duration: 94 msec QT Interval: 441 msec QTC Interval: 451 msec P-R-T [place]: 0 - -4 - -36 degrees IMPRESSION: ATRIAL FIBRILLATION INFERIOR MYOCARDIAL INFARCTION , PROBABLY OLD WITH POSTERIOR EXTENSION ABNORMAL ECG Electronically Signed By: Klaus Humphrey MD PhD Cristino Houser Jr., PA ECG ORDERABLES Final Result Performing Organization Address City/[facility]/ZIP Co de Phone Number [facility] * eGFR (04/18/2024 12:24 AM CRYSTAL GAZER) eGFR 69 >=60 mL/min/1. 73 m2 Comment: [...] reviewed 2021. Blood 04/18/2024 12:2 4 AM CRYSTAL GAZER 04/18/2024 12:44 AM CRYSTAL GAZER Louann Conti MD LAB BLOOD ORDERABLES F inal Result Performing Organization Address [facility] Co de Phone Number [facility] [address] Department [place] [address] * Magnesium (04/18/2024 12:24 AM CRYSTAL GAZER) Magnesium 2.4 1.4 - 2.5 mg/dL Blood 04/18/2024 12:2 4 AM CRYSTAL GAZER 04/18/2024 12:44 AM CRYSTAL GAZER Louann Conti MD LAB BLOOD ORDERABLES F inal Result Performing Organization Address [facility] Co de Phone Number [facility] [address] Department [place] [address] * (ABNORMAL) Renal function panel (04/18/2024 12:24 AM CRYSTAL GAZER) Sodium 137 135 - 145 mmol/L Potassium, pl 4.3 3.3 - 4.9 mmol/L [facility] Chloride 101 97 - 110 mmol/L [facility] CO2 25 22 - 32 mmol/L [facility] Anion gap 11 2 - 15 mmol/L [facility] BUN 37(H) 6 - 25 mg/dL [facility] Creatinine 1.06 0.80 - 1.30 mg/dL [facility] Glucose 102 70 - 199 mg/dL [facility] Comment: Interpretive Data Fasting glucose >/= [...] 2022. Calcium 8.9 8.5 - 10.3 mg/dL [facility] Phosphorus, pl 2.9 2.3 - 4.5 mg/dL [facility] Albumin 3.8 3.5 - 5.0 g/dL [facility] Blood 04/18/2024 12:2 4 AM CRYSTAL GAZER 04/18/2024 12:44 AM CRYSTAL GAZER us Louann Conti MD LAB BLOOD ORDERABLES F inal Result [facility] [address] Department [place] [address] * EGD (04/16/2024 7:56 AM CRYSTAL GAZER) Anatomical Region Laterality Modality Other Narrative Procedure Note Roderick Bedolla MD - 04/16/2024 7:56 AM CST ENDOSCOPY LAB Patient Name: Gian Lee Procedure Date: 04/16/2024 7:56 AM Admit Type: Inpatient Room: [facility] Date of : 1940 Instrument Name: [...] 04/16/2024 7:56 AM Scope In: Scope Out: us Roderick Bedolla MD ENDOSCOPY PROCEDURE S Final Result * eGFR (04/15/2024 12:25 AM CRYSTAL GAZER) eGFR 61 >=60 mL/min/1. 73 m2 Comment: [...] reviewed 2021. Blood 04/15/2024 12:2 5 AM CRYSTAL GAZER 04/15/2024 12:48 AM CRYSTAL GAZER us Louann Conti MD LAB BLOOD ORDERABLES F inal Result [facility] [address] Department [place] [address] * (ABNORMAL) Protime-INR (04/15/2024 12:25 AM CRYSTAL GAZER) PT 16.8(H) 9.7 - 13.0 sec INR 1.54(H) 0.90 - 1.20 [facility] Comment: Interpretive data Oral anticoagulant therapeutic ranges: Venous thromboembolism prophylaxis or treatment: 2.0-3.0 CARDIOLOGY Standard range: 2.0-3.0 High-intensity range: 2.5-3.5 Refer to indication-specific guidelines for appropriate target ranges for prosthetic heart valve replacement. Current interpretive data was last revised on 2019. Blood 04/15/2024 12:2 5 AM CRYSTAL GAZER 04/15/2024 12:48 AM CRYSTAL GAZER us Jaycee SOLIS LAB BLOOD ORDERABLES Final Re sult [facility] [address] Department [place] [address] * (ABNORMAL) Renal function panel (04/15/2024 12:25 AM CRYSTAL GAZER) Sodium 140 135 - 145 mmol/L Potassium, pl 4.5 3.3 - 4.9 mmol/L [facility] Chloride 103 97 - 110 mmol/L [facility] CO2 27 22 - 32 mmol/L [facility] Anion gap 10 2 - 15 mmol/L [facility] BUN 27(H) 6 - 25 mg/dL [facility] Creatinine 1.17 0.80 - 1.30 mg/dL [facility] Glucose 103 70 - 199 mg/dL [facility] Comment: Interpretive Data Fasting glucose >/= [...] 2022. Calcium 9.5 8.5 - 10.3 mg/dL [facility] Phosphorus, pl 4.2 2.3 - 4.5 mg/dL [facility] Albumin 3.7 3.5 - 5.0 g/dL [facility] Blood 04/15/2024 12:2 5 AM CRYSTAL GAZER 04/15/2024 12:48 AM CRYSTAL GAZER Louann Conti MD LAB BLOOD ORDERABLES F inal Result Performing Organization Address [facility] Co de Phone Number [facility] [address] Department [place] [address] * POCT glucose (04/13/2024 10:44 PM CRYSTAL GAZER) Glucose, POC 102 70 - 199 mg/dL Comment: For Glucose values <35 mg/dl when Hematocrit is >60 mg/dl,the test may not accurately detect significant hypoglycemia,and testing in the Laboratory should be considered if clinically indicated. Blood 04/13/2024 10:4 4 PM CRYSTAL GAZER 04/13/2024 10:44 PM CRYSTAL GAZER us Louann Conti MD LAB POCT ORDERABLES - DEVICE Final Result Performing Organization Address [facility] Co de Phone Number [facility] [address] Department [place] [address] * FL Modified Barium Swallow W Video (04/13/2024 2:06 PM CRYSTAL GAZER) Anatomical Region Laterality Modality Head and Neck N/A Radio Fluoroscop y 04/13/2024 3:44 PM CRYSTAL GAZER Impressions 04/13/2024 4:07 PM CRYSTAL GAZER 1. There is silent transglottic aspiration with [...] Mo Stahl M.D. Narrative 04/13/2024 4:07 PM CRYSTAL GAZER EXAMINATION: MODIFIED BARIUM SWALLOW 04/05/2024 HISTORY: Dysphagia. [...] the vallecula throughout the exam. Procedure Note Maribeth, Mo Foley MD - 04/13/2024 EXAMINATION: MODIFIED BARIUM SWALLOW [...] Final Result * eGFR (04/12/2024 1:38 AM CRYSTAL GAZER) eGFR 68 >=60 mL/min/1. 73 m2 Comment: [...] last reviewed 2021. Blood 04/12/2024 1:38 AM CRYSTAL GAZER 04/12/2024 1:58 AM CRYSTAL GAZER Tara Ram MD LAB BLOOD ORDERABLES Final Result [facility] [address] Department of Laboratories [place], [place] [id number] * Differential, auto (04/12/2024 1:38 AM CRYSTAL GAZER) Neutrophil abs 4.4 1.5 - 6.5 K/cumm Imm gran abs 0.1 0.0 - 0.1 K/cumm [facility] Lymphocyte abs 0.9 0.8 - 3.3 K/cumm [facility] Monocyte abs 0.6 0.2 - 0.8 K/cumm [facility] Eosinophil abs 0.5 0.0 - 0.5 K/cumm [facility] Basophil abs 0.1 0.0 - 0.1 K/cumm [facility] Neutrophil pct 66.9 % [facility] Comment: Interpretive Data Percent cell count reference ranges are not reported, since discordance with absolute values may lead to misinterpretation of CBC data. Current Interpretive Data was last revised on 2017. Imm gran pct 0.9 % [facility] Comment: Interpretive Data Percent cell count reference ranges are not reported, since discordance with absolute values may lead to misinterpretation of CBC data. Current Interpretive Data was last revised on 2017. Lymphocyte pct 13.7 % [facility] Comment: Interpretive Data Percent cell count reference ranges are not reported, since discordance with absolute values may lead to misinterpretation of CBC data. Current Interpretive Data was last revised on 2017. Monocyte pct 9.6 % [facility] Comment: Interpretive Data Percent cell count reference ranges are not reported, since discordance with absolute values may lead to misinterpretation of CBC data. Current Interpretive Data was last revised on 2017. Eosinophil pct 7.4 % [facility] Comment: Interpretive Data Percent cell count reference ranges are not reported, since discordance with absolute values may lead to misinterpretation of CBC data. Current Interpretive Data was last revised on 2017. Basophil pct 1.5 % [facility] Comment: Interpretive Data Percent cell count reference ranges are not reported, since discordance with absolute values may lead to misinterpretation of CBC data. Current Interpretive Data was last revised on 2017. Blood 04/12/2024 1:38 AM CRYSTAL GAZER 04/12/2024 1:58 AM CRYSTAL GAZER Tara Ram MD LAB BLOOD ORDERABLES Final Result Performing Organization Address [facility] Co de Phone Number [facility] [address] Department [place] [address] * (ABNORMAL) CBC with auto differential (04/12/2024 1:38 AM CRYSTAL GAZER) Pathologist [facility] WBC 6.6 3.8 - 9.9 K/cumm Hgb 10.2(L) 13.0 - 17.5 g/dL [facility] Hct 31.6(L) 38.9 - 50.3 % [facility] Plt 270 150 - 400 K/cumm [facility] MPV 9.1 9.1 - 12.3 fL [facility] RBC 3.56(L) 4.30 - 5.80 M/cumm [facility] MCV 88.8 81.3 - 96.4 fL [facility] MCH 28.7 27.1 - 33.3 pg [facility] MCHC 32.3 32.3 - 35.7 g/dL [facility] RDW CV 12.8 11.1 - 14.9 % [facility] RDW SD 41.6 35.7 - 48.1 fL [facility] NRBC abs 0.00 0.00 - 0.01 K/cumm [facility] Blood 04/12/2024 1:38 AM CRYSTAL GAZER 04/12/2024 1:58 AM CRYSTAL GAZER us Tara Ram MD LAB BLOOD ORDERABLES Final Result Performing Organization Address [facility] Co de Phone Number [facility] [address] Department [place] [address] * Magnesium (04/12/2024 1:38 AM CRYSTAL GAZER) Pathologist [facility] Magnesium 2.3 1.4 - 2.5 mg/dL Blood 04/12/2024 1:38 AM CRYSTAL GAZER 04/12/2024 1:58 AM CRYSTAL GAZER Tara Ram MD LAB BLOOD ORDERABLES Final Result [facility] [address] Department [place] [address] * Renal function panel (04/12/2024 1:38 AM CRYSTAL GAZER) [facility] Sodium 137 135 - 145 mmol/L Potassium, pl 4.4 3.3 - 4.9 mmol/L [facility] Chloride 102 97 - 110 mmol/L [facility] CO2 24 22 - 32 mmol/L [facility] Anion gap 11 2 - 15 mmol/L [facility] BUN 25 6 - 25 mg/dL [facility] Creatinine 1.07 0.80 - 1.30 mg/dL [facility] Glucose 115 70 - 199 mg/dL [facility] Comment: Interpretive Data Fasting glucose >/= [...] 2022. Calcium 9.6 8.5 - 10.3 mg/dL [facility] Phosphorus, pl 4.1 2.3 - 4.5 mg/dL [facility] Albumin 3.6 3.5 - 5.0 g/dL [facility] Blood 04/12/2024 1:38 AM CRYSTAL GAZER 04/12/2024 1:58 AM CRYSTAL GAZER Tara Ram MD LAB BLOOD ORDERABLES Final Result [facility] [address] Department [place] [address] * eGFR (04/10/2024 12:21 AM CRYSTAL GAZER) [facility] eGFR 65 >=60 mL/min/1. 73 [...] reviewed 2021. Blood 04/10/2024 12:2 1 AM CRYSTAL GAZER 04/10/2024 12:46 AM CRYSTAL GAZER us Tara Ram MD LAB BLOOD ORDERABLES Final Result [facility] [address] Department [place] [address] * (ABNORMAL) CBC without differential (04/10/2024 12:21 AM CRYSTAL GAZER) WBC 5.1 3.8 - 9.9 K/cumm Hgb 10.2(L) 13.0 - 17.5 g/dL [facility] Hct 31.7(L) 38.9 - 50.3 % [facility] Plt 274 150 - 400 K/cumm [facility] MPV 8.6(L) 9.1 - 12.3 fL [facility] RBC 3.55(L) 4.30 - 5.80 M/cumm [facility] MCV 89.3 81.3 - 96.4 fL [facility] MCH 28.7 27.1 - 33.3 pg [facility] MCHC 32.2(L) 32.3 - 35.7 g/dL [facility] RDW CV 12.7 11.1 - 14.9 % [facility] RDW SD 41.6 35.7 - 48.1 fL [facility] NRBC abs 0.00 0.00 - 0.01 K/cumm [facility] Blood 04/10/2024 12:2 1 AM CRYSTAL GAZER 04/10/2024 12:46 AM CRYSTAL GAZER Tara Ram MD LAB BLOOD ORDERABLES Final Result Performing Organization Address City/[facility]/ZIP Co de Phone Number [facility] [address] Department [place] [address] * Magnesium (04/10/2024 12:21 AM CRYSTAL GAZER) [facility] Magnesium 2.4 1.4 - 2.5 mg/dL Blood 04/10/2024 12:2 1 AM CRYSTAL GAZER 04/10/2024 12:46 AM CRYSTAL GAZER Tara Ram MD LAB BLOOD ORDERABLES Final Result Performing Organization Address [facility] de Phone Number [facility] [address] Department [place] [address] * Renal function panel (04/10/2024 12:21 AM CRYSTAL GAZER) Pathologist [facility] Sodium 138 135 - 145 mmol/L Potassium, pl 4.6 3.3 - 4.9 mmol/L [facility] Chloride 101 97 - 110 mmol/L [facility] CO2 28 22 - 32 mmol/L [facility] Anion gap 9 2 - 15 mmol/L [facility] BUN 23 6 - 25 mg/dL [facility] Creatinine 1.12 0.80 - 1.30 mg/dL [facility] Glucose 85 70 - 199 mg/dL [facility] Comment: Interpretive Data Fasting glucose >/= [...] 2022. Calcium 9.6 8.5 - 10.3 mg/dL [facility] Phosphorus, pl 4.1 2.3 - 4.5 mg/dL [facility] Albumin 3.7 3.5 - 5.0 g/dL [facility] Blood 04/10/2024 12:2 1 AM CRYSTAL GAZER 04/10/2024 12:46 AM CRYSTAL GAZER us Tara Ram MD LAB BLOOD ORDERABLES Final Result [facility] [address] Department [place] [address] * eGFR (04/09/2024 12:26 AM CRYSTAL GAZER) eGFR 74 >=60 mL/min/1. 73 m2 Comment: [...] reviewed 2021. Blood 04/09/2024 12:2 6 AM CRYSTAL GAZER 04/09/2024 1:19 AM CRYSTAL GAZER us Tara Ram MD LAB BLOOD ORDERABLES Final Result Performing Organization Address [facility]/ZIP Co de Phone Number [facility] [address] Department [place] [address] * (ABNORMAL) CBC without differential (04/09/2024 12:26 AM CRYSTAL GAZER) WBC 5.8 3.8 - 9.9 K/cumm Hgb 9.9(L) 13.0 - 17.5 g/dL [facility] Hct 31.6(L) 38.9 - 50.3 % [facility] Plt 289 150 - 400 K/cumm [facility] MPV 9.4 9.1 - 12.3 fL [facility] RBC 3.44(L) 4.30 - 5.80 M/cumm [facility] MCV 91.9 81.3 - 96.4 fL [facility] MCH 28.8 27.1 - 33.3 pg [facility] MCHC 31.3(L) 32.3 - 35.7 g/dL [facility] RDW CV 12.7 11.1 - 14.9 % [facility] RDW SD 42.0 35.7 - 48.1 fL [facility] NRBC abs 0.00 0.00 - 0.01 K/cumm [facility] Blood 04/09/2024 12:2 6 AM [facility]STAL GAZER 04/09/2024 1:20 AM [facility]ST[facility]ER Tara Ram MD LAB BLOOD ORDERABLES Final Result Performing Organization Address City/[facility]/ZIP Co de Phone Number [facility] [address] [place] [address] * Magnesium (04/09/2024 12:26 AM CRYSTAL GAZER) Pathologist [facility] Magnesium 2.3 1.4 - 2.5 mg/dL Blood 04/09/2024 12:2 6 AM [facility]STAL GAZER 04/09/2024 1:19 AM [facility]STAL GAZER Tara Ram MD LAB BLOOD ORDERABLES Final Result Performing Organization Address [facility]/ZIP Co de Phone Number [facility] [address] [place] [address] * (ABNORMAL) Renal function panel (04/09/2024 12:26 AM CRYSTAL GAZER) Sodium 138 135 - 145 mmol/L Potassium, pl 4.6 3.3 - 4.9 mmol/L [facility] Chloride 103 97 - 110 mmol/L [facility] CO2 25 22 - 32 mmol/L [facility] Anion gap 10 2 - 15 mmol/L [facility] BUN 24 6 - 25 mg/dL [facility] Creatinine 1.00 0.80 - 1.30 mg/dL [facility] Glucose 90 70 - 199 mg/dL [facility] Comment: Interpretive Data Fasting glucose >/= [...] 2022. Calcium 9.3 8.5 - 10.3 mg/dL [facility] Phosphorus, pl 3.7 2.3 - 4.5 mg/dL [facility] Albumin 3.3(L) 3.5 - 5.0 g/dL [facility] Blood 04/09/2024 12:2 6 AM [facility]STAL GAZER 04/09/2024 1:19 AM CRYSTAL GAZER Tara Ram MD LAB BLOOD ORDERABLES Final Result Performing Organization Address [facility]/ZIP Co de Phone Number [facility] [address] Department [place] [address] * US Carotids Duplex Bilateral (04/08/2024 5:50 PM CRYSTAL GAZER) Anatomical Region Laterality Modality Vascular Bilateral Ultrasound 04/09/2024 4:26 PM CRYSTAL GAZER Impressions 04/09/2024 4:26 PM CRYSTAL GAZER 1) Diffuse atherosclerotic change throughout the bilateral [...] Ultrasound (SRU) Consensus Conference. Electronically signed by: MD Francis Bonilla 04/09/2024 4:26 PM CRYSTAL GAZER DATE:04/08/2024 9:30 AM EXAM: Duplex imaging of [...] Re sult * eGFR (04/08/2024 12:52 AM CRYSTAL GAZER) eGFR 68 >=60 mL/min/1. 73 m2 Comment: [...] reviewed 2021. Blood 04/08/2024 12:5 2 AM CR[facility]STAL GAZER 04/08/2024 1:05 AM CRYSTAL GAZER us Tara Ram MD LAB BLOOD ORDERABLES Final Result [facility] [address] Department [place] [address] * Differential, auto (04/08/2024 12:52 AM CRYSTAL GAZER) Neutrophil abs 4.4 1.5 - 6.5 K/cumm Imm gran abs 0.0 0.0 - 0.1 K/cumm [facility] Lymphocyte abs 0.9 0.8 - 3.3 K/cumm [facility] Monocyte abs 0.7 0.2 - 0.8 K/cumm [facility] Eosinophil abs 0.3 0.0 - 0.5 K/cumm [facility] Basophil abs 0.1 0.0 - 0.1 K/cumm [facility] Neutrophil pct 68.1 % [facility] Comment: Interpretive Data Percent cell count reference ranges are not reported, since discordance with absolute values may lead to misinterpretation of CBC data. Current Interpretive Data was last revised on 2017. Imm gran pct 0.6 % [facility] Comment: Interpretive Data Percent cell count reference ranges are not reported, since discordance with absolute values may lead to misinterpretation of CBC data. Current Interpretive Data was last revised on 2017. Lymphocyte pct 14.0 % [facility] Comment: Interpretive Data Percent cell count reference ranges are not reported, since discordance with absolute values may lead to misinterpretation of CBC data. Current Interpretive Data was last revised on 2017. Monocyte pct 10.6 % [facility] Comment: Interpretive Data Percent cell count reference ranges are not reported, since discordance with absolute values may lead to misinterpretation of CBC data. Current Interpretive Data was last revised on 2017. Eosinophil pct 5.3 % [facility] Comment: Interpretive Data Percent cell count reference ranges are not reported, since discordance with absolute values may lead to misinterpretation of CBC data. Current Interpretive Data was last revised on 2017. Basophil pct 1.4 % [facility] Comment: Interpretive Data Percent cell count reference ranges are not reported, since discordance with absolute values may lead to misinterpretation of CBC data. Current Interpretive Data was last revised on 2017. Blood 04/08/2024 12:5 2 AM CRYSTAL GAZER 04/08/2024 1:05 AM CRYSTAL GAZER us Tara Ram MD LAB BLOOD ORDERABLES Final Result [facility] [address] Department [place] [address] * (ABNORMAL) CBC with auto differential (04/08/2024 12:52 AM CRYSTAL GAZER) WBC 6.4 3.8 - 9.9 K/cumm Hgb 10.5(L) 13.0 - 17.5 g/dL [facility] Hct 33.7(L) 38.9 - 50.3 % [facility] Plt 288 150 - 400 K/cumm [facility] MPV 9.1 9.1 - 12.3 fL [facility] RBC 3.74(L) 4.30 - 5.80 M/cumm [facility] MCV 90.1 81.3 - 96.4 fL [facility] MCH 28.1 27.1 - 33.3 pg [facility] MCHC 31.2(L) 32.3 - 35.7 g/dL [facility] RDW CV 12.5 11.1 - 14.9 % [facility] RDW SD 41.2 35.7 - 48.1 fL [facility] NRBC abs 0.00 0.00 - 0.01 K/cumm [facility] Blood 04/08/2024 12:5 2 AM CRYSTAL GAZER 04/08/2024 1:05 AM CRYSTAL GAZER Tara Ram MD LAB BLOOD ORDERABLES Final Result Performing Organization Address City/[facility]/ZIP Co de Phone Number [facility] [address] [facility] [place] [address] * Magnesium (04/08/2024 12:52 AM CRYSTAL GAZER) Pathologist [facility] Magnesium 2.3 1.4 - 2.5 mg/dL Blood 04/08/2024 12:5 2 AM CRYSTAL GAZER 04/08/2024 1:05 AM CRYSTAL GAZER Tara Ram MD LAB BLOOD ORDERABLES Final Result Performing Organization Address [facility] de Phone Number [facility] [address] [facility] [place] [address] * (ABNORMAL) Renal function panel (04/08/2024 12:52 AM CRYSTAL GAZER) Pathologist [facility] Sodium 138 135 - 145 mmol/L Potassium, pl 5.0(H) 3.3 - 4.9 mmol/L [facility] Chloride 102 97 - 110 mmol/L [facility] CO2 25 22 - 32 mmol/L [facility] Anion gap 11 2 - 15 mmol/L [facility] BUN 25 6 - 25 mg/dL [facility] Creatinine 1.07 0.80 - 1.30 mg/dL [facility] Glucose 89 70 - 199 mg/dL [facility] Comment: Interpretive Data Fasting glucose >/= [...] 2022. Calcium 9.3 8.5 - 10.3 mg/dL [facility] Phosphorus, pl 3.4 2.3 - 4.5 mg/dL [facility] Albumin 3.4(L) 3.5 - 5.0 g/dL [facility] Blood 04/08/2024 12:5 2 AM CRYSTAL GAZER 04/08/2024 1:05 AM CRYSTAL GAZER us Tara Ram MD LAB BLOOD ORDERABLES Final Result [facility] [address] Department [place] [address] * MRI Brain WO Contrast (04/08/2024 12:24 AM CRYSTAL GAZER) Anatomical Region Laterality Modality Head and Neck N/A Magnetic Resonan ce 04/08/2024 8:48 AM CRYSTAL GAZER Impressions 04/08/2024 10:01 AM CRYSTAL GAZER 1. Approximately 5 punctate foci of diffusion [...] Malloy MD, PHD Narrative 04/08/2024 10:01 AM CRYSTAL GAZER EXAMINATION: Magnetic resonance imaging (MRI) of the [...] R esult * eGFR (04/07/2024 12:51 AM CRYSTAL GAZER) eGFR 72 >=60 mL/min/1. 73 m2 Comment: [...] reviewed 2021. Blood 04/07/2024 12:5 1 AM CRYSTAL GAZER 04/07/2024 1:14 AM CRYSTAL GAZER us Marissa Vitale DO LAB BLOOD ORDERABLES F inal Result [facility] [address] Department [place] [address] * (ABNORMAL) Differential, auto (04/07/2024 12:51 AM CRYSTAL GAZER) Neutrophil abs 4.7 1.5 - 6.5 K/cumm Imm gran abs 0.0 0.0 - 0.1 K/cumm [facility] Lymphocyte abs 0.7(L) 0.8 - 3.3 K/cumm [facility] Monocyte abs 0.6 0.2 - 0.8 K/cumm [facility] Eosinophil abs 0.3 0.0 - 0.5 K/cumm [facility] Basophil abs 0.1 0.0 - 0.1 K/cumm [facility] Neutrophil pct 73.0 % [facility] Comment: Interpretive Data Percent cell count reference ranges are not reported, since discordance with absolute values may lead to misinterpretation of CBC data. Current Interpretive Data was last revised on 2017. Imm gran pct 0.3 % [facility] Comment: Interpretive Data Percent cell count reference ranges are not reported, since discordance with absolute values may lead to misinterpretation of CBC data. Current Interpretive Data was last revised on 2017. Lymphocyte pct 11.5 % [facility] Comment: Interpretive Data Percent cell count reference ranges are not reported, since discordance with absolute values may lead to misinterpretation of CBC data. Current Interpretive Data was last revised on 2017. Monocyte pct 9.5 % [facility] Comment: Interpretive Data Percent cell count reference ranges are not reported, since discordance with absolute values may lead to misinterpretation of CBC data. Current Interpretive Data was last revised on 2017. Eosinophil pct 4.5 % [facility] Comment: Interpretive Data Percent cell count reference ranges are not reported, since discordance with absolute values may lead to misinterpretation of CBC data. Current Interpretive Data was last revised on 2017. Basophil pct 1.2 % [facility] Comment: Interpretive Data Percent cell count reference ranges are not reported, since discordance with absolute values may lead to misinterpretation of CBC data. Current Interpretive Data was last revised on 2017. Blood 04/07/2024 12:5 1 AM CRYSTAL GAZER 04/07/2024 1:14 AM CRYSTAL GAZER Marissa Vitale LAB BLOOD ORDERABLES F inal Result Performing Organization Address [facility]/ZIP Co de Phone Number [facility] [address] [place] [address] * (ABNORMAL) CBC with auto differential (04/07/2024 12:51 AM CRYSTAL GAZER) Pathologist [facility] WBC 6.4 3.8 - 9.9 K/cumm Hgb 9.6(L) 13.0 - 17.5 g/dL [facility] Hct 29.6(L) 38.9 - 50.3 % [facility] Plt 270 150 - 400 K/cumm [facility] MPV 9.0(L) 9.1 - 12.3 fL [facility] RBC 3.35(L) 4.30 - 5.80 M/cumm [facility] MCV 88.4 81.3 - 96.4 fL [facility] MCH 28.7 27.1 - 33.3 pg [facility] MCHC 32.4 32.3 - 35.7 g/dL [facility] RDW CV 12.5 11.1 - 14.9 % [facility] RDW SD 40.3 35.7 - 48.1 fL [facility] NRBC abs 0.00 0.00 - 0.01 K/cumm [facility] Blood 04/07/2024 12:5 1 AM CRYSTAL GAZER 04/07/2024 1:14 AM CRYSTAL GAZER Marissa Daviscecilia LAB BLOOD ORDERABLES F inal Result Performing Organization Address [facility]/ZIP Co de Phone Number [facility] [address] [place] [address] * (ABNORMAL) Renal function panel (04/07/2024 12:51 AM CRYSTAL GAZER) Pathologist [facility] Sodium 135 135 - 145 mmol/L Potassium, pl 4.4 3.3 - 4.9 mmol/L [facility] Chloride 101 97 - 110 mmol/L [facility] CO2 26 22 - 32 mmol/L [facility] Anion gap 8 2 - 15 mmol/L [facility] BUN 28(H) 6 - 25 mg/dL [facility] Creatinine 1.03 0.80 - 1.30 mg/dL [facility] Glucose 136 70 - 199 mg/dL [facility] Comment: Interpretive Data Fasting glucose >/= [...] 2022. Calcium 8.9 8.5 - 10.3 mg/dL [facility] Phosphorus, pl 2.8 2.3 - 4.5 mg/dL [facility] Albumin 3.2(L) 3.5 - 5.0 g/dL [facility] Blood 04/07/2024 12:5 1 AM CRYSTAL GAZER 04/07/2024 1:14 AM CRYSTAL GAZER us Marissa Vitale DO LAB BLOOD ORDERABLES F inal Result [facility] [address] Department [place] [address] * (ABNORMAL) Hemoglobin and hematocrit (04/06/2024 5:18 PM CRYSTAL GAZER) Pathologist [facility] Hgb 9.5(L) 13.0 - 17.5 g/dL Hct 29.0(L) 38.9 - 50.3 % [facility] Blood 04/06/2024 5:18 PM CRYSTAL GAZER 04/06/2024 5:48 PM CRYSTAL GAZER Marissa Vitale DO LAB BLOOD ORDERABLES F inal Result [facility] [address] Department [place] [address] * XR Chest 1 View (04/06/2024 5:06 AM CRYSTAL GAZER) Anatomical Region Laterality Modality Body, Chest N/A Computed Radiogr aphy 04/06/2024 9:04 AM CRYSTAL GAZER Impressions 04/06/2024 9:04 AM CRYSTAL GAZER Feeding tube courses below the diaphragm, loops [...] Goldstein MD, PHD Narrative 04/06/2024 9:04 AM CRYSTAL GAZER EXAMINATION: XR CHEST 1 VIEW HISTORY: Shortness [...] Add on lab test (04/06/2024 3:29 AM CRYSTAL GAZER) Acceptable Yes Blood 04/06/2024 3:29 AM CRYSTAL GAZER 04/06/2024 3:30 AM CRYSTAL GAZER Narrative [facility] - 04/06/2024 3:31 AM CRYSTAL GAZER Name of Test->Renal function panel Pedro Senior MD LAB BLOOD ORDERABLES Final R esult Performing Organization Address [facility]/ZIP Co de Phone Number [facility] [address] [place] [address] * eGFR (04/06/2024 2:29 AM CRYSTAL GAZER) eGFR 63 >=60 mL/min/1. 73 m2 Comment: [...] last reviewed 2021. Blood 04/06/2024 2:29 AM CRYSTAL GAZER 04/06/2024 2:29 AM CRYSTAL GAZER Marissa Vitale DO LAB BLOOD ORDERABLES F inal Result Performing Organization Address [facility]/ZIP Co de Phone Number [facility] [address] [place] [address] * (ABNORMAL) Differential, auto (04/06/2024 2:29 AM CRYSTAL GAZER) Neutrophil abs 7.5(H) 1.5 - 6.5 K/cumm Imm gran abs 0.0 0.0 - 0.1 K/cumm [facility] Lymphocyte abs 0.6(L) 0.8 - 3.3 K/cumm [facility] Monocyte abs 0.8 0.2 - 0.8 K/cumm [facility] Eosinophil abs 0.1 0.0 - 0.5 K/cumm [facility] Basophil abs 0.1 0.0 - 0.1 K/cumm [facility] Neutrophil pct 82.2 % [facility] Comment: Interpretive Data Percent cell count reference ranges are not reported, since discordance with absolute values may lead to misinterpretation of CBC data. Current Interpretive Data was last revised on 2017. Imm gran pct 0.4 % [facility] Comment: Interpretive Data Percent cell count reference ranges are not reported, since discordance with absolute values may lead to misinterpretation of CBC data. Current Interpretive Data was last revised on 2017. Lymphocyte pct 7.0 % [facility] Comment: Interpretive Data Percent cell count reference ranges are not reported, since discordance with absolute values may lead to misinterpretation of CBC data. Current Interpretive Data was last revised on 2017. Monocyte pct 8.2 % [facility] Comment: Interpretive Data Percent cell count reference ranges are not reported, since discordance with absolute values may lead to misinterpretation of CBC data. Current Interpretive Data was last revised on 2017. Eosinophil pct 1.4 % [facility] Comment: Interpretive Data Percent cell count reference ranges are not reported, since discordance with absolute values may lead to misinterpretation of CBC data. Current Interpretive Data was last revised on 2017. Basophil pct 0.8 % [facility] Comment: Interpretive Data Percent cell count reference ranges are not reported, since discordance with absolute values may lead to misinterpretation of CBC data. Current Interpretive Data was last revised on 2017. Blood 04/06/2024 2:29 AM CRYSTAL GAZER 04/06/2024 2:29 AM CRYSTAL GAZER Marissa Vitale DO LAB BLOOD ORDERABLES F inal Result [facility] [address] [facility] [place] [address] * (ABNORMAL) Procalcitonin (04/06/2024 2:29 AM CRYSTAL GAZER) [facility] Procalcitonin 0.76(H) <=0.25 ng/mL Blood 04/06/2024 2:29 AM CRYSTAL GAZER 04/06/2024 2:29 AM CRYSTAL GAZER Marissa Vitale LAB BLOOD ORDERABLES F inal Result Performing Organization Address [facility] Co de Phone Number [facility] [address] [facility] [place] [address] * (ABNORMAL) CBC with auto differential (04/06/2024 2:29 AM CRYSTAL GAZER) [facility] WBC 9.1 3.8 - 9.9 K/cumm Hgb 9.3(L) 13.0 - 17.5 g/dL [facility] Hct 28.1(L) 38.9 - 50.3 % [facility] Plt 256 150 - 400 K/cumm [facility] MPV 9.1 9.1 - 12.3 fL [facility] RBC 3.18(L) 4.30 - 5.80 M/cumm [facility] MCV 88.4 81.3 - 96.4 fL [facility] MCH 29.2 27.1 - 33.3 pg [facility] MCHC 33.1 32.3 - 35.7 g/dL [facility] RDW CV 12.4 11.1 - 14.9 % [facility] RDW SD 40.1 35.7 - 48.1 fL [facility] NRBC abs 0.00 0.00 - 0.01 K/cumm [facility] Blood 04/06/2024 2:29 AM CRYSTAL GAZER 04/06/2024 2:29 AM CRYSTAL GAZER Marissa Vitale LAB BLOOD ORDERABLES F inal Result Performing Organization Address City/[facility]/ZIP Co de Phone Number [facility] [address] Department [place] [address] * (ABNORMAL) Renal function panel (04/06/2024 2:29 AM CRYSTAL GAZER) Pathologist [facility] Sodium 128(L) 135 - 145 mmol/L Potassium, pl 4.6 3.3 - 4.9 mmol/L [facility] Chloride 96(L) 97 - 110 mmol/L [facility] CO2 20(L) 22 - 32 mmol/L [facility] Anion gap 12 2 - 15 mmol/L [facility] BUN 29(H) 6 - 25 mg/dL [facility] Creatinine 1.15 0.80 - 1.30 mg/dL [facility] Glucose 144 70 - 199 mg/dL [facility] Comment: Interpretive Data Fasting glucose >/= [...] 2022. Calcium 8.5 8.5 - 10.3 mg/dL [facility] Phosphorus, pl 2.8 2.3 - 4.5 mg/dL [facility] Albumin 3.0(L) 3.5 - 5.0 g/dL [facility] Blood 04/06/2024 2:29 AM CRYSTAL GAZER 04/06/2024 2:29 AM CRYSTAL GAZER Marissa Daviscecilia DO LAB BLOOD ORDERABLES F inal Result [facility] [address] Department [place] [address] * (ABNORMAL) Blood gas, venous (04/06/2024 2:15 AM CRYSTAL GAZER) pH, Venous 7.40 7.32 - 7.43 PCO2, Venous 37(L) 40 - 50 mmHg [facility] PO2, Venous 75 mmHg [facility] Comment: Interpretive Data No Reference Range Established Current Interpretive Data was last revised on 2017. HCO3 Venous, Calculated 23 20 - 30 mmol/L [facility] BE, venous -2 mmol/L [facility] Comment: nterpretive Data No Reference Range Established Current Interpretive Data was last revised on 2017. Blood 04/06/2024 2:15 AM CRYSTAL GAZER 04/06/2024 2:25 AM CRYSTAL GAZER Marsisa Vitale DO LAB BLOOD ORDERABLES F inal Result Performing Organization Address [facility]/ZIP Co de Phone Number [facility] [address] Department [place] [address] * POCT glucose (04/05/2024 12:05 PM CRYSTAL GAZER) Pathologist [facility] Glucose, POC 77 70 - 199 mg/dL Comment: For Glucose values <35 mg/dl when Hematocrit is >60 mg/dl,the test may not accurately detect significant hypoglycemia,and testing in the Laboratory should be considered if clinically indicated. Blood 04/05/2024 12:0 5 PM CRYSTAL GAZER 04/05/2024 12:05 PM CRYSTAL GAZER Marissa Vitale DO LAB POCT ORDERABLES - DEVICE Final Result [facility] [address] Department [place] [address] * XR Kub (04/05/2024 10:23 AM CRYSTAL GAZER) Anatomical Region Laterality Modality Body, Abdomen N/A Computed Radiogr aphy 04/05/2024 10:4 4 AM CRYSTAL GAZER Impressions 04/05/2024 10:44 AM CRYSTAL GAZER Interval placement of a Dobbhoff catheter. Its [...] Eloisa Tineo M.D. Narrative 04/05/2024 10:44 AM CRYSTAL GAZER EXAMINATION: KUB-abdomen one view HISTORY: Dobbhoff COMPARISON: [...] Barium Swallow W Video (04/05/2024 9:52 AM CRYSTAL GAZER) Anatomical Region Laterality Modality Head and Neck N/A Radio Fluoroscop y 04/05/2024 10:4 6 AM CRYSTAL GAZER Impressions 04/05/2024 2:51 PM CRYSTAL GAZER 1. There is transglottic aspiration with thin [...] Mo Stahl M.D. Narrative 04/05/2024 2:51 PM CRYSTAL GAZER EXAMINATION: MODIFIED BARIUM SWALLOW 04/05/2024 HISTORY: Dysphagia. [...] by: Mo Stahl M.D. Krishna Salcedo MD IM FLUOROSCOPY PROCEDURES F inal Result * POCT glucose (04/05/2024 4:30 AM CRYSTAL GAZER) Glucose, POC 71 70 - 199 mg/dL Comment: For Glucose values <35 mg/dl when Hematocrit is >60 mg/dl,the test may not accurately detect significant hypoglycemia,and testing in the Laboratory should be considered if clinically indicated. Blood 04/05/2024 4:30 AM CRYSTAL GAZER 04/05/2024 4:30 AM CRYSTAL GAZER Krishna Salcedo MD LAB POCT ORDERABLES - DEVICE Final Result Performing Organization Address [facility] Co de Phone Number [facility] [address] [place] [address] * eGFR (04/05/2024 3:39 AM CRYSTAL GAZER) eGFR 65 >=60 mL/min/1. 73 m2 Comment: [...] last reviewed 2021. Blood 04/05/2024 3:39 AM CRYSTAL GAZER 04/05/2024 3:53 AM CRYSTAL GAZER Tian Long MD LAB BLOOD ORDERABLES Final Result Performing Organization Address [facility]/ZIP Co de Phone Number [facility] [address] Department of [employer] [place], [place] [address] * (ABNORMAL) CBC without differential (04/05/2024 3:39 AM CRYSTAL GAZER) [facility] WBC 8.8 3.8 - 9.9 K/cumm Hgb 10.5(L) 13.0 - 17.5 g/dL [facility] Hct 32.3(L) 38.9 - 50.3 % [facility] Plt 284 150 - 400 K/cumm [facility] MPV 8.8(L) 9.1 - 12.3 fL [facility] RBC 3.67(L) 4.30 - 5.80 M/cumm [facility] MCV 88.0 81.3 - 96.4 fL [facility] MCH 28.6 27.1 - 33.3 pg [facility] MCHC 32.5 32.3 - 35.7 g/dL [facility] RDW CV 12.3 11.1 - 14.9 % [facility] RDW SD 39.8 35.7 - 48.1 fL [facility] NRBC abs 0.00 0.00 - 0.01 K/cumm [facility] Blood 04/05/2024 3:39 AM CRYSTAL GAZER 04/05/2024 3:53 AM CRYSTAL GAZER us Krishna Salcedo MD LAB BLOOD ORDERABLES Final R esult Performing Organization Address City/[facility]/ZIP Co de Phone Number [facility] [address] [place] [address] * Magnesium (04/05/2024 3:39 AM CRYSTAL GAZER) [facility] Magnesium 2.2 1.4 - 2.5 mg/dL Blood 04/05/2024 3:39 AM CRYSTAL GAZER 04/05/2024 3:53 AM CRYSTAL GAZER us Marissa Vitale DO LAB BLOOD ORDERABLES F inal Result [facility] [address] Department [place] [address] * (ABNORMAL) Renal function panel (04/05/2024 3:39 AM CRYSTAL GAZER) [facility] Sodium 131(L) 135 - 145 mmol/L Potassium, pl 4.5 3.3 - 4.9 mmol/L [facility] Chloride 97 97 - 110 mmol/L [facility] CO2 20(L) 22 - 32 mmol/L [facility] Anion gap 14 2 - 15 mmol/L [facility] BUN 19 6 - 25 mg/dL [facility] Creatinine 1.11 0.80 - 1.30 mg/dL [facility] Glucose 63(L) 70 - 199 mg/dL [facility] Comment: Interpretive Data Fasting glucose >/= [...] 2022. Calcium 8.7 8.5 - 10.3 mg/dL [facility] Phosphorus, pl 3.3 2.3 - 4.5 mg/dL [facility] Albumin 3.3(L) 3.5 - 5.0 g/dL [facility] Blood 04/05/2024 3:39 AM CRYSTAL GAZER 04/05/2024 3:53 AM CRYSTAL GAZER Tian Long MD LAB BLOOD ORDERABLES Final Result [facility] [address] Department [place] [address] * eGFR (04/04/2024 4:18 PM CRYSTAL GAZER) [facility] eGFR 61 >=60 mL/min/1. 73 m2 Comment: [...] last reviewed 2021. Blood 04/04/2024 4:18 PM CRYSTAL GAZER 04/04/2024 4:30 PM CRYSTAL GAZER us Tian Long MD LAB BLOOD ORDERABLES Final Result [facility] [address] Department [place] [address] * (ABNORMAL) Renal function panel (04/04/2024 4:18 PM CRYSTAL GAZER) Sodium 131(L) 135 - 145 mmol/L Potassium, pl 4.7 3.3 - 4.9 mmol/L [facility] Chloride 99 97 - 110 mmol/L [facility] CO2 20(L) 22 - 32 mmol/L [facility] Anion gap 12 2 - 15 mmol/L [facility] BUN 22 6 - 25 mg/dL [facility] Creatinine 1.18 0.80 - 1.30 mg/dL [facility] Glucose 76 70 - 199 mg/dL [facility] Comment: Interpretive Data Fasting glucose >/= [...] 2022. Calcium 8.6 8.5 - 10.3 mg/dL [facility] Phosphorus, pl 4.0 2.3 - 4.5 mg/dL [facility] Albumin 3.0(L) 3.5 - 5.0 g/dL [facility] Blood 04/04/2024 4:18 PM CRYSTAL GAZER 04/04/2024 4:30 PM CRYSTAL GAZER Tian Long MD LAB BLOOD ORDERABLES Final Result Performing Organization Address City/[facility]/ZIP Co de Phone Number [facility] [address] [facility] [employer] [place], [place] [id number] * Sodium, urine, random (04/04/2024 6:11 AM CRYSTAL GAZER) Sodium, ur 129 mmol/L Comment: Interpretive Data No reference range established. Current interpretive data was last revised 2018. Urine 04/04/2024 6:11 AM CRYSTAL GAZER 04/04/2024 6:39 AM CRYSTAL GAZER Tian Long MD LAB URINE ORDERABLES Final Result Performing Organization Address [facility] Co de Phone Number [facility] [address] Department [place] [address] * Osmolality, urine (04/04/2024 6:11 AM CRYSTAL GAZER) Osmo, ur 549 300 - 800 mOsm/kg Urine 04/04/2024 6:11 AM CRYSTAL GAZER 04/04/2024 6:39 AM CRYSTAL GAZER Result [facility] Tian Long MD LAB URINE ORDERABLES Final Result Performing Organization Address City/[facility] Co de Phone Number [facility] [address] Department [place] [address] * Creatinine, urine, random (04/04/2024 6:11 AM CRYSTAL GAZER) Creatinine Ur 71.0 mg/dL Comment: Interpretive Data No reference range established. Current interpretive data was last revised 2018. Urine 04/04/2024 6:11 AM CRYSTAL GAZER 04/04/2024 6:39 AM CRYSTAL GAZER Tian Long MD LAB URINE ORDERABLES Final Result Performing Organization Address [facility]/ZIP Co de Phone Number [facility] [address] [employer] [place], [place] [id number] * eGFR (04/04/2024 2:56 AM CRYSTAL GAZER) eGFR 60 >=60 mL/min/1. 73 m2 Comment: [...] last reviewed 2021. Blood 04/04/2024 2:56 AM CRYSTAL GAZER 04/04/2024 3:16 AM CRYSTAL GAZER Tian Long MD LAB BLOOD ORDERABLES Final Result Performing Organization Address City/[facility]/ZIP Co de Phone Number [facility] [address] [place] [address] * (ABNORMAL) CBC without differential (04/04/2024 2:56 AM CRYSTAL GAZER) [facility] WBC 8.0 3.8 - 9.9 K/cumm Hgb 10.9(L) 13.0 - 17.5 g/dL [facility] Hct 32.5(L) 38.9 - 50.3 % [facility] Plt 278 150 - 400 K/cumm [facility] MPV 9.2 9.1 - 12.3 fL [facility] RBC 3.70(L) 4.30 - 5.80 M/cumm [facility] MCV 87.8 81.3 - 96.4 fL [facility] MCH 29.5 27.1 - 33.3 pg [facility] MCHC 33.5 32.3 - 35.7 g/dL [facility] RDW CV 12.6 11.1 - 14.9 % [facility] RDW SD 40.3 35.7 - 48.1 fL [facility] NRBC abs 0.00 0.00 - 0.01 K/cumm [facility] Blood 04/04/2024 2:56 AM CRYSTAL GAZER 04/04/2024 3:16 AM CRYSTAL GAZER Krishna Salcedo MD LAB BLOOD ORDERABLES Final R esult Performing Organization Address [facility] Co de Phone Number [facility] [address] [place] [address] * (ABNORMAL) TSH (04/04/2024 2:56 AM CRYSTAL GAZER) [facility] Thyroid Stimulating Hormone 11.20(H) 0.30 - 4.20 mcIUnit/mL Blood 04/04/2024 2:56 AM CRYSTAL GAZER 04/04/2024 3:16 AM CRYSTAL GAZER Krishna Salcedo MD LAB BLOOD ORDERABLES Final R esult Performing Organization Address City/[facility]/ZIP Co de Phone Number [facility] [address] [place] [address] * (ABNORMAL) Renal function panel (04/04/2024 2:56 AM CRYSTAL GAZER) Sodium 125(L) 135 - 145 mmol/L Potassium, pl 4.6 3.3 - 4.9 mmol/L [facility] Chloride 94(L) 97 - 110 mmol/L [facility] CO2 20(L) 22 - 32 mmol/L [facility] Anion gap 11 2 - 15 mmol/L [facility] BUN 20 6 - 25 mg/dL [facility] Creatinine 1.20 0.80 - 1.30 mg/dL [facility] Glucose 70 70 - 199 mg/dL [facility] Comment: Interpretive Data Fasting glucose >/= [...] 2022. Calcium 8.5 8.5 - 10.3 mg/dL [facility] Phosphorus, pl 3.9 2.3 - 4.5 mg/dL [facility] Albumin 3.0(L) 3.5 - 5.0 g/dL [facility] Blood 04/04/2024 2:56 AM CRYSTAL GAZER 04/04/2024 3:16 AM CRYSTAL GAZER us Tian Long MD LAB BLOOD ORDERABLES Final Result [facility] [address] Department of Laboratories [place], [place] [id number] * eGFR (04/03/2024 5:59 PM CRYSTAL GAZER) eGFR 65 >=60 mL/min/1. 73 m2 Comment: [...] last reviewed 2021. Blood 04/03/2024 5:59 PM CRYSTAL GAZER 04/03/2024 6:07 PM CRYSTAL GAZER Krishna Salcedo MD LAB BLOOD ORDERABLES Final R esult [facility] [address] Department [place] [address] * (ABNORMAL) Renal function panel (04/03/2024 5:59 PM CRYSTAL GAZER) Sodium 126(L) 135 - 145 mmol/L Potassium, pl 4.6 3.3 - 4.9 mmol/L [facility] Chloride 94(L) 97 - 110 mmol/L [facility] CO2 20(L) 22 - 32 mmol/L [facility] Anion gap 12 2 - 15 mmol/L [facility] BUN 17 6 - 25 mg/dL [facility] Creatinine 1.11 0.80 - 1.30 mg/dL [facility] Glucose 93 70 - 199 mg/dL [facility] Comment: Interpretive Data Fasting glucose >/= [...] 2022. Calcium 8.3(L) 8.5 - 10.3 mg/dL [facility] Phosphorus, pl 3.8 2.3 - 4.5 mg/dL [facility] Albumin 3.0(L) 3.5 - 5.0 g/dL [facility] Blood 04/03/2024 5:59 PM CRYSTAL GAZER 04/03/2024 6:07 PM CRYSTAL GAZER Krishna Salcedo MD LAB BLOOD ORDERABLES Final R esult Performing Organization Address City/[facility]/ZIP Co de Phone Number [facility] [address] Department [place] [address] * Aerobic culture and gram stain Sputum Lung (04/03/2024 3:55 PM CRYSTAL GAZER) Pathologist [facility] Direct Specimen Exam Stain: Many polymorphonuclear leukocytes seen. Many Gram Positive Cocci Many Gram Negative Bacilli Report Final Report: Heavy growth normal krupa [facility] Sputum (Lung) 04/03/2024 3:5 5 PM CRYSTAL GAZER 04/03/2024 4:31 PM CRYSTAL GAZER Krishna Salcedo MD LAB MICROBIOLOGY - GENERAL O RDERABLES Final Result Performing Organization Address City/[facility]/ZIP Co de Phone Number [facility] [address] Department [place] [address] * MRSA Only (Staphylococcus aureus) PCR Nasal (04/03/2024 3:55 PM CRYSTAL GAZER) PCR Scrn, Methicillin resistant Staphylococcus aureus (MRSA) Not Detected Not Detected Comment: Interpretive Data Testing performed using Nucleic Acid Amplification with the [employer] Xpert MRSA NxG Assay. This assay detects target DNA from mecA, mecC and the SCCmec insertion site of Staphylococcus aureus using Real-Time PCR and has been cleared by the FDA. Performance characteristics have been verified by the [facility]. Current Interpretive Data was last revised on 2023 Nasal 04/03/2024 3:55 PM CRYSTAL GAZER 04/03/2024 4:31 PM CRYSTAL GAZER Krihsna Salcedo MD LAB MICROBIOLOGY - GENERAL O RDERABLES Final Result Performing Organization Address City/[facility]/ZIP Co de Phone Number [facility] [address] Department [employer] [place], [place] [phone] * Cortisol - Add on lab test (04/03/2024 2:48 PM CRYSTAL GAZER) Acceptable Yes Blood 04/03/2024 2:48 PM CRYSTAL GAZER 04/03/2024 2:48 PM CRYSTAL GAZER Narrative [facility] - 04/03/2024 2:48 PM CRYSTAL GAZER Name of Test->Cortisol Tian Long MD LAB BLOOD ORDERABLES Final Result Performing Organization Address [facility] Co de Phone Number [facility] [address] Department of [employer] [place], [place] [id number] * TSH reflex Free T4 - Add on lab test (04/03/2024 2:48 PM CRYSTAL GAZER) Acceptable Yes Blood 04/03/2024 2:48 PM CRYSTAL GAZER 04/03/2024 2:48 PM CRYSTAL GAZER Narrative [facility] - 04/03/2024 2:48 PM CRYSTAL GAZER Name of Test->TSH reflex Free T4 Tian Long MD LAB BLOOD ORDERABLES Final Result Performing Organization Address City/[facility] Co de Phone Number [facility] [address] Department [employer] [place], [place] [id number] * Sodium, urine, random - Add on lab test (04/03/2024 2:48 PM CRYSTAL GAZER) Acceptable Yes Blood 04/03/2024 2:48 PM CRYSTAL GAZER 04/03/2024 2:48 PM CRYSTAL GAZER Narrative [facility] - 04/03/2024 2:48 PM CRYSTAL GAZER Name of Test->Sodium, urine, random Tian Long MD LAB BLOOD ORDERABLES Final Result Performing Organization Address [facility]/ZIP Co de Phone Number [facility] [address] [place] [address] * Osmolality, urine - Add on lab test (04/03/2024 2:48 PM CRYSTAL GAZER) Acceptable Yes Blood 04/03/2024 2:48 PM CRYSTAL GAZER 04/03/2024 2:48 PM CRYSTAL GAZER Narrative [facility] - 04/03/2024 2:48 PM CRYSTAL GAZER Name of Test->Osmolality, urine Tian Long MD LAB BLOOD ORDERABLES Final Result Performing Organization Address [facility] Co de Phone Number [facility] [address] Department of Laboratories [place], [place] [phone] * TRANSTHORACIC ECHO (TTE) COMPLETE W DOPPLER/CF WO CONTRAST (04/03/2024 2:46 PM CRYSTAL GAZER) LV EF 50-55 % CONS SCIMAGE Anatomical Region Laterality Modality Ultrasound 04/03/2024 12:2 5 PM CRYSTAL GAZER Narrative 04/03/2024 7:33 PM CRYSTAL GAZER [facility] [address] [place] [address] ECHOCARDIOGRAM Patient Name: GIAN LEE E : 1940 (83y 8m) Gender: M Study Date: 04/03/2024 12:25:32 PM Ht(Inch): 68 Wt(Lb): 166.01 BSA: 1.9 District Administrative Assistant: CHANDU Location: [id number] Order Provider: KRISHNA SALCEDO BMI: 25.24 BP: 140/74 Ref Provider: CRISKRISHNA - PROCEDURES: Echocardiographic Report: Transthoracic Echocardiogram with [...] By: Gian Trevino MD 04/03/2024 7:32:32 PM CRYSTAL GAZER Procedure Note Gian Trevino MD - 04/03/2024 [place] [address] [place] [address] ECHOCARDIOGRAM Patient Name: GIAN LEE Júnior : 1940 (83y 8m) Gender: M Study Date: 04/03/2024 12:25:32 PM Ht(Inch): 68 Wt(Lb): 166.01 BSA: 1.9 District Administrative Assistant: CHANDU Location: [id number] Order Provider: CRIS KRISHNA BMI: 25.24 BP: 140/74 Ref Provider: KRISHNA [...] By: Gian Trevino MD 04/03/2024 7:32:32 PM CRYSTAL GAZER us Krishna Salcedo MD CV ECHO PROCEDURES Final Res ult * (ABNORMAL) Lactate (04/03/2024 11:06 AM CRYSTAL GAZER) Lactate 0.6(L) 0.7 - 2.0 mmol/L Blood 04/03/2024 11:0 6 AM CRYSTAL GAZER 04/03/2024 11:15 AM CRYSTAL GAZER Krishna Salcedo MD LAB BLOOD ORDERABLES Final R esult Performing Organization Address [facility] de Phone Number [facility] [address] Department [place] [address] * eGFR (04/03/2024 11:06 AM CRYSTAL GAZER) eGFR 75 >=60 mL/min/1. 73 m2 Comment: [...] reviewed 2021. Blood 04/03/2024 11:0 6 AM CRYSTAL GAZER 04/03/2024 11:23 AM CRYSTAL GAZER Krishna Salcedo MD LAB BLOOD ORDERABLES Final R esult Performing Organization Address [facility] Co de Phone Number [facility] [address] Department of [employer] [place], [place] [phone] * (ABNORMAL) Pro B-type natriuretic peptide (04/03/2024 11:06 AM CRYSTAL GAZER) NT-proBNP 1,928(H) <=450 pg/mL Comment: Interpretive Comments: [...] Date: 2017. Blood 04/03/2024 11:0 6 AM CRYSTAL GAZER 04/03/2024 11:23 AM CRYSTAL GAZER Krishna Salcedo MD LAB BLOOD ORDERABLES Final R esult [facility] [address] Department of Laboratories [place], [place] [phone] * (ABNORMAL) Thyroid Function [place] (04/03/2024 11:06 AM CRYSTAL GAZER) TSH 10.50(H) 0.30 - 4.20 mcIUnit/mL Blood 04/03/2024 11:0 6 AM CRYSTAL GAZER 04/03/2024 11:23 AM CRYSTAL GAZER Krishna Salcedo MD LAB BLOOD ORDERABLES Final R esult [facility] [address] Department [place] [address] * (ABNORMAL) Urinalysis reflex to microscopic and culture Urine (04/03/2024 11:06 AM CRYSTAL GAZER) Color, ur Yellow Yellow Clarity, ur Clear Clear [facility] Specific gravity, ur 1.042(H) 1.003 - 1.030 [facility] pH, urine 7.0 [facility] Comment: Interpretive Data U rine pH is affected by diet, medications, systemic acid-base disturbances, and renal tubular function. pH may affect urinary stone formation. For example, urine pH below 6.0 may help reduce the tendency for calcium phosphate stones and pH greater than 6.0 may reduce the tendency for uric acid stone formation. Source: [facility] Current Interpretive Data was last revised on 2017 Protein, ur ql Trace Negative [facility] Glucose, ur ql Negative Negative [facility] Ketones, ur Negative Negative [facility] Bilirubin, ur Negative Negative [facility] Blood, ur 3+(A) Negative [facility] Urobilinogen, ur <2.0 <2.0 mg/dL [facility] Nitrite, ur Negative Negative [facility] Leukocyte esterase, ur Negative Negative [facility] UA reflex comment Reflex to microscopic UA will be performed. [facility] Urine 04/03/2024 11:0 6 AM CRYSTAL GAZER 04/03/2024 11:06 AM CRYSTAL GAZER Krishna Salcedo MD LAB MICROBIOLOGY - GENERAL O RDERABLES Final Result [facility] [address] Department [place] [address] * Strep pneumoniae antigen, urine Urine (04/03/2024 11:06 AM CRYSTAL GAZER) S. pneumoniae Ag Negative Negative Comment: Interpretive [...] on 2022 Urine 04/03/2024 11:0 6 AM CRYSTAL GAZER 04/03/2024 11:32 AM CRYSTAL GAZER Krishna Salcedo MD LAB MICROBIOLOGY - GENERAL O RDERABLES Final Result Performing Organization Address [facility] de Phone Number [facility] [address] [facility] [place] [address] * Legionella antigen Urine (04/03/2024 11:06 AM CRYSTAL GAZER) Legionella Ag Negative Negative Comment: Interpretive Data This test detects only Legionella pneumophila serogroup 1 antigen. Current interpretive data was last revised on 2019. Urine 04/03/2024 11:0 6 AM CRYSTAL GAZER 04/03/2024 11:32 AM CRYSTAL GAZER Krishna Salcedo MD LAB MICROBIOLOGY - GENERAL O RDERABLES Final Result Performing Organization Address [facility] de Phone Number [facility] [address] [place] [address] * Sodium, urine, random (04/03/2024 11:06 AM CRYSTAL GAZER) Sodium, ur 145 mmol/L Comment: Interpretive Data No reference range established. Current interpretive data was last revised 2018. Urine 04/03/2024 11:0 6 AM CRYSTAL GAZER 04/03/2024 3:13 PM CRYSTAL GAZER Krishna Salcedo MD LAB URINE ORDERABLES Final R esult Performing Organization Address [facility] de Phone Number [facility] [address] Department [place] [address] * Osmolality, urine (04/03/2024 11:06 AM CRYSTAL GAZER) Osmo, ur 526 300 - 800 mOsm/kg Urine 04/03/2024 11:0 6 AM CRYSTAL GAZER 04/03/2024 3:14 PM CRYSTAL GAZER Krishna Salcedo MD LAB URINE ORDERABLES Final R esult Performing Organization Address [facility] de Phone Number [facility] [address] Department [place] [address] * (ABNORMAL) Urinalysis, microscopic only (04/03/2024 11:06 AM CRYSTAL GAZER) Pathologist [facility] WBC, ur 0-5 0 - 5 /HPF RBC, ur >50(A) 0 - 2 /HPF [facility] Bacteria, ur Trace(A) [facility] Culture Reflex Comment Reflex conditions for urine culture (WBC >10) not met. [facility] Urine 04/03/2024 11:0 6 AM CRYSTAL GAZER 04/03/2024 11:23 AM CRYSTAL GAZER Krishna Salcedo MD LAB URINE ORDERABLES Final R esult Performing Organization Address [facility] de Phone Number [facility] [address] Department [place] [address] * (ABNORMAL) aPTT (04/03/2024 11:06 AM CRYSTAL GAZER) Pathologist [facility] aPTT 39(H) 28 - 38 sec Comment: Interpretive Data Heparin therapeutic range: 66.0 - 100.0 seconds. Range based on correlation with therapeutic heparin activity range of 0.3 - 0.7 Units/mL. Current interpretive data was last revised on 2022. Blood 04/03/2024 11:0 6 AM CRYSTAL GAZER 04/03/2024 11:22 AM CRYSTAL GAZER Krishna Salcedo MD LAB BLOOD ORDERABLES Final R esult Performing Organization Address [facility]/ZIP Co de Phone Number [facility] [address] Department [place] [address] * (ABNORMAL) Protime-INR (04/03/2024 11:06 AM CRYSTAL GAZER) [facility] PT 17.7(H) 9.7 - 13.0 sec INR 1.62(H) 0.90 - 1.20 [facility] Comment: Interpretive data Oral anticoagulant therapeutic ranges: Venous thromboembolism prophylaxis or treatment: 2.0-3.0 CARDIOLOGY Standard range: 2.0-3.0 High-intensity range: 2.5-3.5 Refer to indication-specific guidelines for appropriate target ranges for prosthetic heart valve replacement. Current interpretive data was last revised on 2019. Blood 04/03/2024 11:0 6 AM CRYSTAL GAZER 04/03/2024 11:22 AM CRYSTAL GAZER Krishna Salcedo MD LAB BLOOD ORDERABLES Final R esult Performing Organization Address [facility] Co de Phone Number [facility] [address] Department [place] [address] * (ABNORMAL) CBC without differential (04/03/2024 11:06 AM CRYSTAL GAZER) [facility] WBC 8.6 3.8 - 9.9 K/cumm Hgb 10.0(L) 13.0 - 17.5 g/dL [facility] Hct 30.8(L) 38.9 - 50.3 % [facility] Plt 249 150 - 400 K/cumm [facility] MPV 9.1 9.1 - 12.3 fL [facility] RBC 3.43(L) 4.30 - 5.80 M/cumm [facility] MCV 89.8 81.3 - 96.4 fL [facility] MCH 29.2 27.1 - 33.3 pg [facility] MCHC 32.5 32.3 - 35.7 g/dL [facility] RDW CV 12.7 11.1 - 14.9 % [facility] RDW SD 41.0 35.7 - 48.1 fL [facility] NRBC abs 0.00 0.00 - 0.01 K/cumm [facility] Blood 04/03/2024 11:0 6 AM CRYSTAL GAZER 04/03/2024 11:23 AM CRYSTAL GAZER Narrative [facility] - 04/03/2024 11:32 AM CRYSTAL GAZER Baseline prior to rivaroxaban initiation Krishna Salcedo MD LAB BLOOD ORDERABLES Final R esult Performing Organization Address City/[facility]/ZIP Co de Phone Number [place] [address] Department [place] [address] * Type and screen (04/03/2024 11:06 AM CRYSTAL GAZER) ABO Rh O Positive Alex, indirect Negative [facility] Blood 04/03/2024 11:0 6 AM CRYSTAL GAZER 04/03/2024 11:25 AM CRYSTAL GAZER Narrative [facility] - 04/03/2024 12:03 PM CRYSTAL GAZER Has the patient had Daratumumab or Isatuximab in the past 6 months?->Unknown Krishna Salcedo MD LAB BLOOD BANK TEST ORDERABL ES Final Result Performing Organization Address [facility] Co de Phone Number [facility] [address] Department [place] [address] * Uric acid (04/03/2024 11:06 AM CRYSTAL GAZER) Uric acid 3.4 3.0 - 8.0 mg/dL Blood 04/03/2024 11:0 6 AM CRYSTAL GAZER 04/03/2024 11:23 AM CRYSTAL GAZER Krishna Salcedo MD LAB BLOOD ORDERABLES Final R esult Performing Organization Address City/[facility] Co de Phone Number [facility] [address] Department [place] [address] * T4, free (04/03/2024 11:06 AM CRYSTAL GAZER) Free T4 0.95 0.90 - 1.70 ng/dL Blood 04/03/2024 11:0 6 AM CRYSTAL GAZER 04/03/2024 11:23 AM CRYSTAL GAZER Narrative [facility] - 04/03/2024 2:33 PM CRYSTAL GAZER This test was reflexed from a TSH result. Krishna Salcedo MD LAB BLOOD ORDERABLES Final R esult Performing Organization Address City/[facility]/ZIP Co de Phone Number [facility] [address] [facility] [place] [address] * Phosphorus (04/03/2024 11:06 AM CRYSTAL GAZER) Pathologist [facility] Phosphorus, pl 3.5 2.3 - 4.5 mg/dL Blood 04/03/2024 11:0 6 AM CRYSTAL GAZER 04/03/2024 11:23 AM CRYSTAL GAZER Krishna Salcedo MD LAB BLOOD ORDERABLES Final R esult Performing Organization Address [facility] Co de Phone Number [facility] [address] [facility] [place] [address] * Magnesium (04/03/2024 11:06 AM CRYSTAL GAZER) Magnesium 2.0 1.4 - 2.5 mg/dL Blood 04/03/2024 11:0 6 AM CRYSTAL GAZER 04/03/2024 11:23 AM CRYSTAL GAZER Krishna Salcedo MD LAB BLOOD ORDERABLES Final R esult Performing Organization Address City/[facility] Co de Phone Number [facility] [address] [facility] [place] [address] * Cortisol (04/03/2024 11:06 AM CRYSTAL GAZER) Cortisol 8.3 4.8 - 19.5 mcg/dl Blood 04/03/2024 11:0 6 AM CRYSTAL GAZER 04/03/2024 11:23 AM CRYSTAL GAZER Krishna Salcedo MD LAB BLOOD ORDERABLES Final R esult Performing Organization Address City/[facility]/ZIP Co de Phone Number [facility] [address] [employer] [place] [address] * Bilirubin, direct (04/03/2024 11:06 AM CRYSTAL GAZER) Pathologist [facility] Bilirubin, direct 0.2 0.1 - 0.3 mg/dL Blood 04/03/2024 11:0 6 AM CRYSTAL GAZER 04/03/2024 11:23 AM CRYSTAL GAZER Krishna Salcedo MD LAB BLOOD ORDERABLES Final [facility] Performing Organization Address [facility] Co de Phone Number [facility] [address] [facility] [place] [address] * (ABNORMAL) Comprehensive metabolic panel (04/03/2024 11:06 AM CRYSTAL GAZER) [facility] Sodium 122(L) 135 - 145 mmol/L Potassium, pl 4.4 3.3 - 4.9 mmol/L [facility] Chloride 89(L) 97 - 110 mmol/L [facility] CO2 21(L) 22 - 32 mmol/L [facility] Anion gap 12 2 - 15 mmol/L [facility] BUN 17 6 - 25 mg/dL [facility] Creatinine 0.99 0.80 - 1.30 mg/dL [facility] Glucose 79 70 - 199 mg/dL [facility] Comment: Interpretive Data Fasting glucose >/= [...] 2022. Calcium 8.1(L) 8.5 - 10.3 mg/dL [facility] Bilirubin, total 0.5 0.1 - 1.2 mg/dL [facility] Protein, pl 5.6(L) 6.5 - 8.5 g/dL [facility] Albumin 3.0(L) 3.5 - 5.0 g/dL [facility] Alk phos 67 40 - 130 Units/L [facility] ALT 19 7 - 55 Units/L [facility] AST 31 10 - 50 Units/L [facility] Blood 04/03/2024 11:0 6 AM CRYSTAL GAZER 04/03/2024 11:23 AM CRYSTAL GAZER us Krishna Salcedo MD LAB BLOOD ORDERABLES Final R esult [facility] [address] Department [place] [address] * X-ray chest 1 view (Portable) (04/03/2024 10:23 AM CRYSTAL GAZER) Anatomical Region Laterality Modality Body, Chest N/A Computed Radiogr aphy 04/03/2024 10:3 4 AM CRYSTAL GAZER Impressions 04/03/2024 10:34 AM CRYSTAL GAZER Persistent left pleural effusion and basilar atelectasis with improving aeration of the right lung. Electronically signed by: Isiah David M.D. Narrative 04/03/2024 10:34 AM CRYSTAL GAZER EXAMINATION: XR CHEST 1 VIEW HISTORY: Pneumonia [...] Portable - in AM (03/27/2024 6:38 AM CRYSTAL GAZER) Anatomical Region Laterality Modality Body, Chest N/A Computed Radiogr aphy 03/27/2024 7:33 AM CRYSTAL GAZER Impressions 03/27/2024 7:33 AM CRYSTAL GAZER Bibasilar atelectasis with persistent left pleural effusion. Electronically signed by: Basil Youssef M.D. Narrative 03/27/2024 7:33 AM CRYSTAL GAZER EXAMINATION: XR CHEST 1 VIEW HISTORY: Pleural [...] Electronically signed by: Basil Youssef M.D. Ale Magy Myler CUSTOMER EXPERIENCE RETAIL CLERK IMG XR PROCEDURES Final Result * eGFR (03/27/2024 12:27 AM CRYSTAL GAZER) [facility] eGFR 74 >=60 mL/min/1. 73 m2 Comment: [...] reviewed 2021. Blood 03/27/2024 12:2 7 AM CRYSTAL GAZER 03/27/2024 1:07 AM CRYSTAL GAZER Ale Mcknight NP LAB BLOOD ORDERABLES Fin al Result [facility] [address] Department [place] [address] * (ABNORMAL) CBC without differential (03/27/2024 12:27 AM CRYSTAL GAZER) [facility] WBC 8.8 3.8 - 9.9 K/cumm Hgb 9.5(L) 13.0 - 17.5 g/dL [facility] Hct 29.3(L) 38.9 - 50.3 % [facility] Plt 138(L) 150 - 400 K/cumm [facility] MPV 9.7 9.1 - 12.3 fL [facility] RBC 3.18(L) 4.30 - 5.80 M/cumm [facility] MCV 92.1 81.3 - 96.4 fL [facility] MCH 29.9 27.1 - 33.3 pg [facility] MCHC 32.4 32.3 - 35.7 g/dL [facility] RDW CV 12.9 11.1 - 14.9 % [facility] RDW SD 43.4 35.7 - 48.1 fL [facility] NRBC abs 0.00 0.00 - 0.01 K/cumm [facility] Blood 03/27/2024 12:2 7 AM CRYSTAL GAZER 03/27/2024 1:07 AM CRYSTAL GAZER Ale Mcknight CUSTOMER EXPERIENCE RETAIL CLERK LAB BLOOD ORDERABLES Fin al Result [facility] [address] Department of [employer] [place], [place] [id number] * Magnesium (03/27/2024 12:27 AM CRYSTAL GAZER) [facility] Magnesium 2.1 1.4 - 2.5 mg/dL Blood 03/27/2024 12:2 7 AM CRYSTAL GAZER 03/27/2024 1:07 AM CRYSTAL GAZER Ale Mcknight CUSTOMER EXPERIENCE RETAIL CLERK LAB BLOOD ORDERABLES Fin al Result Performing Organization Address City/[facility]/ZIP Co de Phone Number [facility] [address] [employer] [place] [address] * (ABNORMAL) Renal function panel (03/27/2024 12:27 AM CRYSTAL GAZER) [facility] Sodium 134(L) 135 - 145 mmol/L Potassium, pl 4.3 3.3 - 4.9 mmol/L [facility] Chloride 101 97 - 110 mmol/L [facility] CO2 24 22 - 32 mmol/L [facility] Anion gap 9 2 - 15 mmol/L [facility] BUN 16 6 - 25 mg/dL [facility] Creatinine 1.00 0.80 - 1.30 mg/dL [facility] Glucose 112 70 - 199 mg/dL [facility] Comment: Interpretive Data Fasting glucose >/= [...] 2022. Calcium 8.4(L) 8.5 - 10.3 mg/dL [facility] Phosphorus, pl 4.0 2.3 - 4.5 mg/dL [facility] Albumin 3.1(L) 3.5 - 5.0 g/dL [facility] Blood 03/27/2024 12:2 7 AM CRYSTAL GAZER 03/27/2024 1:07 AM CRYSTAL GAZER Ale Mcknight NP LAB BLOOD ORDERABLES Fin al Result [facility] [address] Department [place] [address] * (ABNORMAL) Urinalysis reflex to microscopic and culture Urine (03/26/2024 11:53 AM CRYSTAL GAZER) Color, ur Yellow Yellow Clarity, ur Clear Clear [facility] Specific gravity, ur 1.031(H) 1.003 - 1.030 [facility] pH, urine 6.0 [facility] Comment: Interpretive Data U rine pH is affected by diet, medications, systemic acid-base disturbances, and renal tubular function. pH may affect urinary stone formation. For example, urine pH below 6.0 may help reduce the tendency for calcium phosphate stones and pH greater than 6.0 may reduce the tendency for uric acid stone formation. Source: [facility] Current Interpretive Data was last revised on 2017 Protein, ur ql 1+(A) Negative [facility] Glucose, ur ql Negative Negative [facility] Ketones, ur Negative Negative [facility] Bilirubin, ur Negative Negative [facility] Blood, ur Negative Negative [facility] Urobilinogen, ur 2.0(A) <2.0 mg/dL [facility] Nitrite, ur Negative Negative [facility] Leukocyte esterase, ur 2+(A) Negative [facility] UA reflex comment Reflex to microscopic UA will be performed. [facility] Urine 03/26/2024 11:5 3 AM CRYSTAL GAZER 03/26/2024 11:53 AM CRYSTAL GAZER Benny SOL[facility] LAB MICROBIOLOGY - GENERAL O RDERABLES Final Result Performing Organization Address [facility] Co de Phone Number [facility] [address] Department of Laboratories [place], [place] [id number] * (ABNORMAL) Urinalysis, microscopic only (03/26/2024 11:53 AM CRYSTAL GAZER) WBC, ur 6-10(A) 0 - 5 /HPF RBC, ur 3-5(A) 0 - 2 /HPF [facility] Epithelial cells, squamous, ur 1-5 0 - 5 /HPF [facility] Mucous, ur Present(A) [facility] Culture Reflex Comment Reflex conditions for urine culture (WBC >10) not met. [facility] Urine 03/26/2024 11:5 3 AM CRYSTAL GAZER 03/26/2024 12:04 PM CRYSTAL GAZER Benny [facility] LAB URINE ORDERABLES Final R esult Performing Organization Address [facility] Co de Phone Number [facility] [address] [place] [address] * XR Chest 1 View - Portable - in AM (03/26/2024 6:06 AM CRYSTAL GAZER) Anatomical Region Laterality Modality Body, Chest N/A Computed Radiogr aphy 03/26/2024 7:40 AM CRYSTAL GAZER Impressions 03/26/2024 7:40 AM CRYSTAL GAZER Comparison 03/25/2024 5:47 AM. Median sternotomy wires are intact. Right internal jugular central venous catheter tip at superior cavoatrial junction. Cardiomediastinal silhouette stable. Aortic valve replacement again noted. Moderate left and mild right bibasilar atelectasis and small left pleural effusion again noted. No pulmonary edema seen. No pneumothorax seen. Electronically signed by: Dion Pinto M.D. Narrative 03/26/2024 7:40 AM CRYSTAL GAZER EXAMINATION: Chest 1 view Procedure Note Dion [...] signed by: Dion Pinto M.D. Ale Mcknight CUSTOMER EXPERIENCE RETAIL CLERK IMG XR PROCEDURES Final Result * eGFR (03/26/2024 12:27 AM CRYSTAL GAZER) eGFR 65 >=60 mL/min/1. 73 m2 Comment: [...] reviewed 2021. Blood 03/26/2024 12:2 7 AM CRYSTAL GAZER 03/26/2024 12:50 AM CRYSTAL GAZER Ale Mcknight CUSTOMER EXPERIENCE RETAIL CLERK LAB BLOOD ORDERABLES Fin al Result [facility] [address] [place] [address] * (ABNORMAL) CBC without differential (03/26/2024 12:27 AM CRYSTAL GAZER) [facility] WBC 10.0(H) 3.8 - 9.9 K/cumm Hgb 9.8(L) 13.0 - 17.5 g/dL [facility] Hct 29.2(L) 38.9 - 50.3 % [facility] Plt 162 150 - 400 K/cumm [facility] MPV 9.1 9.1 - 12.3 fL [facility] RBC 3.22(L) 4.30 - 5.80 M/cumm [facility] MCV 90.7 81.3 - 96.4 fL [facility] MCH 30.4 27.1 - 33.3 pg [facility] MCHC 33.6 32.3 - 35.7 g/dL [facility] RDW CV 12.9 11.1 - 14.9 % [facility] RDW SD 42.5 35.7 - 48.1 fL [facility] NRBC abs 0.00 0.00 - 0.01 K/cumm [facility] Blood 03/26/2024 12:2 7 AM CRYSTAL GAZER 03/26/2024 12:50 AM CRYSTAL GAZER Ale Mcknight CUSTOMER EXPERIENCE RETAIL CLERK LAB BLOOD ORDERABLES Fin al Result [facility] [address] [employer] [place], [place] [id number] * Magnesium (03/26/2024 12:27 AM CRYSTAL GAZER) Pathologist [facility] Magnesium 2.0 1.4 - 2.5 mg/dL Blood 03/26/2024 12:2 7 AM CRYSTAL GAZER 03/26/2024 12:50 AM CRYSTAL GAZER Ale Mcknight CUSTOMER EXPERIENCE RETAIL CLERK LAB BLOOD ORDERABLES Fin al Result Performing Organization Address City/[facility]/ZIP Co de Phone Number [facility] [address] [place] [address] * (ABNORMAL) Renal function panel (03/26/2024 12:27 AM CRYSTAL GAZER) Sodium 135 135 - 145 mmol/L Potassium, pl 4.2 3.3 - 4.9 mmol/L [facility] Chloride 100 97 - 110 mmol/L [facility] CO2 23 22 - 32 mmol/L [facility] Anion gap 12 2 - 15 mmol/L [facility] BUN 16 6 - 25 mg/dL [facility] Creatinine 1.12 0.80 - 1.30 mg/dL [facility] Glucose 100 70 - 199 mg/dL [facility] Comment: Interpretive Data Fasting glucose >/= [...] 2022. Calcium 8.3(L) 8.5 - 10.3 mg/dL [facility] Phosphorus, pl 3.8 2.3 - 4.5 mg/dL [facility] Albumin 3.3(L) 3.5 - 5.0 g/dL [facility] Blood 03/26/2024 12:2 7 AM CRYSTAL GAZER 03/26/2024 12:50 AM CRYSTAL GAZER Ale Mcknight CUSTOMER EXPERIENCE RETAIL CLERK LAB BLOOD ORDERABLES Fin al Result Performing Organization Address City/[facility]/ZIP Co de Phone Number [facility] [address] [place] [address] * XR Chest 1 View - Portable - in AM (03/25/2024 5:49 AM CRYSTAL GAZER) Anatomical Region Laterality Modality Body, Chest N/A Computed Radiogr aphy 03/25/2024 8:22 AM CRYSTAL GAZER Impressions 03/25/2024 8:22 AM CRYSTAL GAZER Comparison is made to chest radiograph dated [...] Farzana Guzman M.D. Narrative 03/25/2024 8:22 AM CRYSTAL GAZER EXAMINATION: 1 view chest radiograph Procedure Note [...] Final Result * eGFR (03/25/2024 1:33 AM CRYSTAL GAZER) eGFR 76 >=60 mL/min/1. 73 m2 Comment: [...] last reviewed 2021. Blood 03/25/2024 1:33 AM CRYSTAL GAZER 03/25/2024 1:55 AM CRYSTAL GAZER us Ale Mcknight CUSTOMER EXPERIENCE RETAIL CLERK LAB BLOOD ORDERABLES Fin al Result [facility] [address] Department [place] [address] * (ABNORMAL) CBC without differential (03/25/2024 1:33 AM CRYSTAL GAZER) WBC 9.0 3.8 - 9.9 K/cumm Hgb 9.3(L) 13.0 - 17.5 g/dL [facility] Hct 28.0(L) 38.9 - 50.3 % [facility] Plt 131(L) 150 - 400 K/cumm [facility] MPV 9.8 9.1 - 12.3 fL [facility] RBC 3.08(L) 4.30 - 5.80 M/cumm [facility] MCV 90.9 81.3 - 96.4 fL [facility] MCH 30.2 27.1 - 33.3 pg [facility] MCHC 33.2 32.3 - 35.7 g/dL [facility] RDW CV 12.9 11.1 - 14.9 % [facility] RDW SD 42.4 35.7 - 48.1 fL [facility] NRBC abs 0.00 0.00 - 0.01 K/cumm [facility] Blood 03/25/2024 1:33 AM CRYSTAL GAZER 03/25/2024 1:55 AM CRYSTAL GAZER Ale Mcknight CUSTOMER EXPERIENCE RETAIL CLERK LAB BLOOD ORDERABLES Fin al Result Performing Organization Address [facility] Co de Phone Number [facility] [address] [facility] [place] [address] * Type and screen (03/25/2024 1:33 AM CRYSTAL GAZER) [facility] ABO Rh O Positive Alex, indirect Negative [facility] Blood 03/25/2024 1:33 AM CRYSTAL GAZER 03/25/2024 2:03 AM CRYSTAL GAZER Narrative [facility] - 03/25/2024 2:34 AM CRYSTAL GAZER Has the patient had Daratumumab or Isatuximab in the past 6 months?->Unknown Ale Mcknight CUSTOMER EXPERIENCE RETAIL CLERK LAB BLOOD BANK TEST ORDE RABLES Final Result Performing Organization Address [facility] Co de Phone Number [facility] [address] [facility] [place] [address] * Magnesium (03/25/2024 1:33 AM CRYSTAL GAZER) [facility] Magnesium 2.0 1.4 - 2.5 mg/dL Blood 03/25/2024 1:33 AM CRYSTAL GAZER 03/25/2024 1:55 AM CRYSTAL GAZER Ale Mcknight CUSTOMER EXPERIENCE RETAIL CLERK LAB BLOOD ORDERABLES Fin al Result Performing Organization Address [facility] Co de Phone Number [facility] [address] [facility] [place] [address] * (ABNORMAL) Renal function panel (03/25/2024 1:33 AM CRYSTAL GAZER) [facility] Sodium 132(L) 135 - 145 mmol/L Potassium, pl 4.6 3.3 - 4.9 mmol/L [facility] Chloride 99 97 - 110 mmol/L [facility] CO2 22 22 - 32 mmol/L [facility] Anion gap 11 2 - 15 mmol/L [facility] BUN 16 6 - 25 mg/dL [facility] Creatinine 0.98 0.80 - 1.30 mg/dL [facility] Glucose 104 70 - 199 mg/dL [facility] Comment: Interpretive Data Fasting glucose >/= [...] 2022. Calcium 8.0(L) 8.5 - 10.3 mg/dL [facility] Phosphorus, pl 2.8 2.3 - 4.5 mg/dL [facility] Albumin 2.8(L) 3.5 - 5.0 g/dL [facility] Blood 03/25/2024 1:33 AM CRYSTAL GAZER 03/25/2024 1:55 AM CRYSTAL GAZER Ale Mcknight NP LAB BLOOD ORDERABLES Fin al Result [facility] [address] Department [place] [address] * XR Chest 1 View - Portable - in AM (03/24/2024 8:05 AM CRYSTAL GAZER) Anatomical Region Laterality Modality Body, Chest N/A Computed Radiogr aphy 03/24/2024 8:15 AM CRYSTAL GAZER Impressions 03/24/2024 8:15 AM CRYSTAL GAZER Single view chest exam is compared to [...] Bilateral total shoulder arthroplasties. Electronically signed by: iWlliams Murillo M.D. Narrative 03/24/2024 8:15 AM CRYSTAL GAZER EXAMINATION: XR CHEST 1 VIEW History: Pleural [...] Final Result * eGFR (03/24/2024 2:16 AM CRYSTAL GAZER) eGFR 73 >=60 mL/min/1. 73 m2 Comment: [...] last reviewed 2021. Blood 03/24/2024 2:16 AM CRYSTAL GAZER 03/24/2024 2:21 AM CRYSTAL GAZER Ale Mcknight CUSTOMER EXPERIENCE RETAIL CLERK LAB BLOOD ORDERABLES Fin al Result Performing Organization Address [facility] Co de Phone Number [facility] [address] Department [place] [address] * (ABNORMAL) CBC without differential (03/24/2024 2:16 AM CRYSTAL GAZER) WBC 7.5 3.8 - 9.9 K/cumm Hgb 9.6(L) 13.0 - 17.5 g/dL [facility] Hct 28.7(L) 38.9 - 50.3 % [facility] Plt 143(L) 150 - 400 K/cumm [facility] MPV 9.5 9.1 - 12.3 fL [facility] RBC 3.19(L) 4.30 - 5.80 M/cumm [facility] MCV 90.0 81.3 - 96.4 fL [facility] MCH 30.1 27.1 - 33.3 pg [facility] MCHC 33.4 32.3 - 35.7 g/dL [facility] RDW CV 12.7 11.1 - 14.9 % [facility] RDW SD 41.8 35.7 - 48.1 fL [facility] NRBC abs 0.00 0.00 - 0.01 K/cumm [facility] Blood 03/24/2024 2:16 AM CRYSTAL GAZER 03/24/2024 2:21 AM CRYSTAL GAZER Ale Mcknight CUSTOMER EXPERIENCE RETAIL CLERK LAB BLOOD ORDERABLES Fin al Result [facility] [address] Department [employer] [place], [place] [id number] * Magnesium (03/24/2024 2:16 AM CRYSTAL GAZER) Pathologist [facility] Magnesium 2.2 1.4 - 2.5 mg/dL Blood 03/24/2024 2:16 AM CRYSTAL GAZER 03/24/2024 2:21 AM CRYSTAL GAZER Ale Mcknight CUSTOMER EXPERIENCE RETAIL CLERK LAB BLOOD ORDERABLES Fin al Result [facility] [address] Department [place] [address] * (ABNORMAL) Renal function panel (03/24/2024 2:16 AM CRYSTAL GAZER) Sodium 134(L) 135 - 145 mmol/L Potassium, pl 4.2 3.3 - 4.9 mmol/L [facility] Chloride 103 97 - 110 mmol/L [facility] CO2 22 22 - 32 mmol/L [facility] Anion gap 9 2 - 15 mmol/L [facility] BUN 16 6 - 25 mg/dL [facility] Creatinine 1.01 0.80 - 1.30 mg/dL [facility] Glucose 103 70 - 199 mg/dL [facility] Comment: Interpretive Data Fasting glucose >/= [...] 2022. Calcium 8.3(L) 8.5 - 10.3 mg/dL [facility] Phosphorus, pl 2.2(L) 2.3 - 4.5 mg/dL [facility] Albumin 2.9(L) 3.5 - 5.0 g/dL [facility] Blood 03/24/2024 2:16 AM CRYSTAL GAZER 03/24/2024 2:21 AM CRYSTAL GAZER Ale Mcknight CUSTOMER EXPERIENCE RETAIL CLERK LAB BLOOD ORDERABLES Fin al Result [facility] [address] Department [place] [address] * XR Chest 1 View - Portable - in AM (03/23/2024 6:41 AM CRYSTAL GAZER) Anatomical Region Laterality Modality Body, Chest N/A Computed Radiogr aphy 03/23/2024 8:08 AM CRYSTAL GAZER Impressions 03/23/2024 8:08 AM CRYSTAL GAZER 1. Obscuration of the left hemidiaphragm likely related to a pleural effusion. 2. Otherwise grossly negative postoperative chest radiograph. COMMENT: Please see above for additional findings. Electronically signed by: Mo Stahl M.D. Narrative 03/23/2024 8:08 AM CRYSTAL GAZER Chest Radiograph, 1 view HISTORY: pleural effusion, [...] signed by: Mo Stahl M.D. Ale Mcknight CUSTOMER EXPERIENCE RETAIL CLERK IMG XR PROCEDURES Final Result * Critical Care (03/23/2024 6:36 AM CRYSTAL GAZER) Narrative Mauri Odell MD - 03/23/2024 6:36 AM CRYSTAL GAZER Ale Mcknight NP 03/23/2024 8:54 AM Critical Care Performed by: Ael Mcknight NP Authorized by: Ale Mcknight NP CRITICAL CARE: Team: [facility] CT Shift: AM Level of Billing: [...] plan with the patient's team and other medical/supervisor home energy consultant staff. This time was in addition to and separate from care provided by other practitioners on this day of service. I spent time reviewing and interpreting data from bedside monitors, laboratory results, and imaging and I spent time discussing the management of this critically ill patient with consultants and the medical staff Ael Mcknight CUSTOMER EXPERIENCE RETAIL CLERK IN CLINIC/BEDSIDE ORDERA BLES Final Result * eGFR (03/23/2024 1:16 AM CRYSTAL GAZER) [facility] eGFR 77 >=60 mL/min/1. 73 m2 Comment: [...] last reviewed 2021. Blood 03/23/2024 1:16 AM CRYSTAL GAZER 03/23/2024 1:35 AM CRYSTAL GAZER Brenda Mayberry CUSTOMER EXPERIENCE RETAIL CLERK LAB BLOOD ORDERABLES Final Result [facility] [address] Department [place] [address] * (ABNORMAL) Calcium, ionized (03/23/2024 1:16 AM CRYSTAL GAZER) Calcium, Ionized 4.40(L) 4.50 - 5.10 mg/dL Blood 03/23/2024 1:16 AM CRYSTAL GAZER 03/23/2024 1:23 AM CRYSTAL GAZER Gena Jane CUSTOMER EXPERIENCE RETAIL CLERK LAB BLOOD ORDERABLES Hamida l Result Performing Organization Address City/[facility]/ZIP Co de Phone Number [facility] [address] Department [place] [address] * Protime-INR (03/23/2024 1:16 AM CRYSTAL GAZER) PT 11.7 9.7 - 13.0 sec INR 1.08 0.90 - 1.20 [facility] Comment: Interpretive data Oral anticoagulant therapeutic ranges: Venous thromboembolism prophylaxis or treatment: 2.0-3.0 CARDIOLOGY Standard range: 2.0-3.0 High-intensity range: 2.5-3.5 Refer to indication-specific guidelines for appropriate target ranges for prosthetic heart valve replacement. Current interpretive data was last revised on 2019. Blood 03/23/2024 1:16 AM CRYSTAL GAZER 03/23/2024 1:35 AM CRYSTAL GAZER Gena Jane CUSTOMER EXPERIENCE RETAIL CLERK LAB BLOOD ORDERABLES Hamida l Result [facility] [address] [employer] [place] [address] * (ABNORMAL) CBC without differential (03/23/2024 1:16 AM CRYSTAL GAZER) [facility] WBC 8.3 3.8 - 9.9 K/cumm Hgb 10.2(L) 13.0 - 17.5 g/dL [facility] Hct 31.4(L) 38.9 - 50.3 % [facility] Plt 130(L) 150 - 400 K/cumm [facility] MPV 9.6 9.1 - 12.3 fL [facility] RBC 3.42(L) 4.30 - 5.80 M/cumm [facility] MCV 91.8 81.3 - 96.4 fL [facility] MCH 29.8 27.1 - 33.3 pg [facility] MCHC 32.5 32.3 - 35.7 g/dL [facility] RDW CV 12.9 11.1 - 14.9 % [facility] RDW SD 43.1 35.7 - 48.1 fL [facility] NRBC abs 0.00 0.00 - 0.01 K/cumm [facility] Blood 03/23/2024 1:16 AM CRYSTAL GAZER 03/23/2024 1:36 AM CRYSTAL GAZER us Ale Mcknight CUSTOMER EXPERIENCE RETAIL CLERK LAB BLOOD ORDERABLES Fin al Result [facility] [address] [employer] [place] [address] * Magnesium (03/23/2024 1:16 AM CRYSTAL GAZER) [facility] Magnesium 2.2 1.4 - 2.5 mg/dL Comment:Reviewed Blood 03/23/2024 1:16 AM CRYSTAL GAZER 03/23/2024 1:35 AM CRYSTAL GAZER Ale Mcknight CUSTOMER EXPERIENCE RETAIL CLERK LAB BLOOD ORDERABLES Fin al Result Performing Organization Address City/[facility]/ZIP Co de Phone Number [facility] [address] Department [place] [address] * (ABNORMAL) Renal function panel (03/23/2024 1:16 AM CRYSTAL GAZER) Sodium 134(L) 135 - 145 mmol/L Potassium, pl 4.5 3.3 - 4.9 mmol/L [facility] Chloride 100 97 - 110 mmol/L [facility] CO2 21(L) 22 - 32 mmol/L [facility] Anion gap 13 2 - 15 mmol/L [facility] BUN 13 6 - 25 mg/dL [facility] Creatinine 0.97 0.80 - 1.30 mg/dL [facility] Glucose 79 70 - 199 mg/dL [facility] Comment: Interpretive Data Fasting glucose >/= [...] 2022. Calcium 8.2(L) 8.5 - 10.3 mg/dL [facility] Phosphorus, pl 3.3 2.3 - 4.5 mg/dL [facility] Albumin 2.9(L) 3.5 - 5.0 g/dL [facility] Blood 03/23/2024 1:16 AM CRYSTAL GAZER 03/23/2024 1:35 AM CRYSTAL GAZER Ale Mcknight CUSTOMER EXPERIENCE RETAIL CLERK LAB BLOOD ORDERABLES Fin al Result Performing Organization Address City/[facility]/ZIP Co de Phone Number [facility] [address] Department [place] [address] * Critical Care (03/22/2024 8:16 PM CRYSTAL GAZER) Narrative Mauri Odell MD - 03/22/2024 8:16 PM CRYSTAL GAZER Gena Jane NP 03/23/2024 4:04 AM Critical Care Performed by: Gena Jane NP Authorized by: Gena Jane NP CRITICAL CARE: Team: [facility] CT Shift: PM Level of Billing: [...] plan with the patient's team and other medical/supervisor home energy consultant staff. This time was in addition [...] laboratory results, and imaging us Gena Jane CUSTOMER EXPERIENCE RETAIL CLERK IN CLINIC/BEDSIDE ORDERAB LES Final Result * POCT glucose (03/22/2024 6:38 PM CRYSTAL GAZER) [facility] Glucose, POC 96 70 - 199 mg/dL Comment: For Glucose values <35 mg/dl when Hematocrit is >60 mg/dl,the test may not accurately detect significant hypoglycemia,and testing in the Laboratory should be considered if clinically indicated. Blood 03/22/2024 6:38 PM CRYSTAL GAZER 03/22/2024 6:38 PM CRYSTAL GAZER us Basil Adhikari MD LAB POCT ORDERABLES - DE VICE Final Result [facility] [address] Department [place] [address] * eGFR (03/22/2024 6:30 PM CRYSTAL GAZER) [facility] eGFR 76 >=60 mL/min/1. 73 m2 Comment: [...] last reviewed 2021. Blood 03/22/2024 6:30 PM CRYSTAL GAZER 03/22/2024 6:42 PM CRYSTAL GAZER Sara Edwards CUSTOMER EXPERIENCE RETAIL CLERK LAB BLOOD ORDERABLES Final Result Performing Organization Address City/[facility]/ZIP Co de Phone Number [facility] [address] [facility] [employer] [place], [place] [id number] * (ABNORMAL) Calcium, ionized (03/22/2024 6:30 PM CRYSTAL GAZER) Calcium, Ionized 4.40(L) 4.50 - 5.10 mg/dL Blood 03/22/2024 6:30 PM CRYSTAL GAZER 03/22/2024 6:42 PM CRYSTAL GAZER Sara Edwards CUSTOMER EXPERIENCE RETAIL CLERK LAB BLOOD ORDERABLES Final Result Performing Organization Address City/[facility]/ZIP Co de Phone Number [facility] [address] Department of [employer] [place], [place] [id number] * aPTT (03/22/2024 6:30 PM CRYSTAL GAZER) aPTT 30 28 - 38 sec Comment: Interpretive Data Heparin therapeutic range: 66.0 - 100.0 seconds. Range based on correlation with therapeutic heparin activity range of 0.3 - 0.7 Units/mL. Current interpretive data was last revised on 2022. Blood 03/22/2024 6:30 PM CRYSTAL GAZER 03/22/2024 6:42 PM CRYSTAL GAZER Sara Bardalesey CUSTOMER EXPERIENCE RETAIL CLERK LAB BLOOD ORDERABLES Final Result Performing Organization Address [facility] de Phone Number [facility] [address] [facility] [place] [address] * Protime-INR (03/22/2024 6:30 PM CRYSTAL GAZER) Pathologist [facility] PT 12.8 9.7 - 13.0 sec INR 1.18 0.90 - 1.20 [facility] Comment: Interpretive data Oral anticoagulant therapeutic ranges: Venous thromboembolism prophylaxis or treatment: 2.0-3.0 CARDIOLOGY Standard range: 2.0-3.0 High-intensity range: 2.5-3.5 Refer to indication-specific guidelines for appropriate target ranges for prosthetic heart valve replacement. Current interpretive data was last revised on 2019. Blood 03/22/2024 6:30 PM CRYSTAL GAZER 03/22/2024 6:42 PM CRYSTAL GAZER Sara Zieglerlubna Edwards LAB BLOOD ORDERABLES Final Result Performing Organization Address [facility] de Phone Number [facility] [address] [facility] [place] [address] * (ABNORMAL) CBC without differential (03/22/2024 6:30 PM CRYSTAL GAZER) Pathologist [facility] WBC 9.6 3.8 - 9.9 K/cumm Hgb 9.9(L) 13.0 - 17.5 g/dL [facility] Hct 29.4(L) 38.9 - 50.3 % [facility] Plt 107(L) 150 - 400 K/cumm [facility] MPV 9.5 9.1 - 12.3 fL [facility] RBC 3.23(L) 4.30 - 5.80 M/cumm [facility] MCV 91.0 81.3 - 96.4 fL [facility] MCH 30.7 27.1 - 33.3 pg [facility] MCHC 33.7 32.3 - 35.7 g/dL [facility] RDW CV 12.7 11.1 - 14.9 % [facility] RDW SD 42.5 35.7 - 48.1 fL [facility] NRBC abs 0.00 0.00 - 0.01 K/cumm [facility] Blood 03/22/2024 6:30 PM CRYSTAL GAZER 03/22/2024 6:42 PM CRYSTAL GAZER Sara Edwards CUSTOMER EXPERIENCE RETAIL CLERK LAB BLOOD ORDERABLES Final Result Performing Organization Address City/[facility]/ZIP Co de Phone Number [facility] [address] [facility] [place] [address] * Magnesium (03/22/2024 6:30 PM CRYSTAL GAZER) [facility] Magnesium 1.7 1.4 - 2.5 mg/dL Blood 03/22/2024 6:30 PM CRYSTAL GAZER 03/22/2024 6:42 PM CRYSTAL GAZER Sara Edwards CUSTOMER EXPERIENCE RETAIL CLERK LAB BLOOD ORDERABLES Final Result Performing Organization Address City/[facility]/ZIP Co de Phone Number [facility] [address] [place] [address] * (ABNORMAL) Renal function panel (03/22/2024 6:30 PM CRYSTAL GAZER) Sodium 133(L) 135 - 145 mmol/L Potassium, pl 4.1 3.3 - 4.9 mmol/L [facility] Chloride 101 97 - 110 mmol/L [facility] CO2 20(L) 22 - 32 mmol/L [facility] Anion gap 12 2 - 15 mmol/L [facility] BUN 15 6 - 25 mg/dL [facility] Creatinine 0.98 0.80 - 1.30 mg/dL [facility] Glucose 89 70 - 199 mg/dL [facility] Comment: Interpretive Data Fasting glucose >/= [...] 2022. Calcium 7.5(L) 8.5 - 10.3 mg/dL [facility] Phosphorus, pl 3.0 2.3 - 4.5 mg/dL [facility] Albumin 2.8(L) 3.5 - 5.0 g/dL [facility] Blood 03/22/2024 6:30 PM CRYSTAL GAZER 03/22/2024 6:42 PM CRYSTAL GAZER us Sara Edwards NP LAB BLOOD ORDERABLES Final Result [facility] [address] Department [place] [address] * Critical Care (03/22/2024 5:43 PM CRYSTAL GAZER) Narrative Mauri Odell MD - 03/22/2024 5:43 PM CRYSTAL GAZER Sara Edwards NP 03/22/2024 5:52 PM Critical Care Performed by: Sara Edwards NP Authorized by: Sara Edwards NP CRITICAL CARE: Team: [facility] CT Shift: AM Level of Billing: [...] plan with the ICU team and other medical/supervisor home energy consultant staff, making frequent assessments and decisions [...] Final Result * REVAS ENDOVASILIAC W STNT [id number] (03/22/2024 4:52 PM CRYSTAL GAZER) Anatomical Region Laterality Modality X-Ray Angiograph y Narrative 03/22/2024 4:54 PM CRYSTAL GAZER Please see OpNote for result. Basil Adhikari MD CV CARDIAC CATH PROCEDUR ES Final Result * (ABNORMAL) POC Activated Clotting Time, High Range (03/22/2024 4:51 PM CRYSTAL GAZER) ACT 139(H) 87 - 138 sec Blood 03/22/2024 4:51 PM CRYSTAL GAZER 03/22/2024 4:51 PM CRYSTAL GAZER Basil Adhikari MD LAB BLOOD ORDERABLES Fin al Result [facility] [address] Department [place] [address] * (ABNORMAL) POC Blood Gas and Chemistries, Venous - (03/22/2024 4:29 PM CRYSTAL GAZER) pH, Boyd POC 7.31(L) 7.32 - 7.45 pCO2, boyd POC 48 40 - 50 mmHg [facility] pO2, boyd POC 64(H) 35 - 42 mmHg [facility] Na, POC 129(L) 135 - 145 mmol/L [facility] K POC 4.1 3.3 - 4.9 mmol/L [facility] Comment: Interpretive Data This method is not able to assess for hemolysis, which may falsely increase potassium concentrations. If further testing is needed to evaluate this result, consider in-laboratory plasma potassium. Current Interpretive Data was last revised on 2021. Cl, POC 101 97 - 110 mmol/L [facility] Ionized Ca, POC 4.62 4.50 - 5.10 mg/dL [facility] Glucose, POC 95 70 - 199 mg/dL [facility] Lactate, POC 0.7 0.0 - 2.0 mmol/L [facility] O2Hb, Boyd POC 90.2 90.0 - 95.0 % [facility] Carboxhgb fract 1.9 0.0 - 2.9 % [facility] Methemoglobin 1.3 0.0 - 1.9 % [facility] HHb, POC 6.6(H) 0.0 - 5.0 % [facility] O2 Sat, Boyd POC (Shayne) 93(H) 68 - 77 % [facility] Total CO2, boyd POC 26 22 - 32 mmol/L [facility] Base excess, byod POC -2.2 mmol/L [facility] HCO3, Boyd POC 23 20 - 30 mmol/L [facility] Hct, POC 30.0(L) 38.9 - 50.3 % [facility] Total Hb, POC 9.9(L) 13.0 - 17.5 g/dL [facility] Blood 03/22/2024 4:29 PM CRYSTAL GAZER 03/22/2024 4:29 PM CRYSTAL GAZER us Basil Adhikari MD LAB POCT ORDERABLES - DE VICE Final Result [facility] [address] Department of Laboratories [place], [place] [id number] * (ABNORMAL) POC Activated Clotting Time, High Range (03/22/2024 4:10 PM CRYSTAL GAZER) ACT 386(H) 87 - 138 sec Blood 03/22/2024 4:10 PM CRYSTAL GAZER 03/22/2024 4:10 PM CRYSTAL GAZER us Basil Adhikari MD LAB BLOOD ORDERABLES Fin al Result Performing Organization Address [facility] Co de Phone Number [facility] [address] [facility] [place] [address] * (ABNORMAL) POC Activated Clotting Time, High Range (03/22/2024 4:00 PM CRYSTAL GAZER) ACT 174(H) 87 - 138 sec Blood 03/22/2024 4:00 PM CRYSTAL GAZER 03/22/2024 4:00 PM CRYSTAL GAZER Result [facility] Basil Adhikari MD LAB BLOOD ORDERABLES Fin al Result Performing Organization Address [facility] Co de Phone Number [facility] [address] [facility] [place] [address] * (ABNORMAL) POC Activated Clotting Time, High Range (03/22/2024 3:56 PM CRYSTAL GAZER) ACT 145(H) 87 - 138 sec Blood 03/22/2024 3:56 PM CRYSTAL GAZER 03/22/2024 3:56 PM CRYSTAL GAZER Result [facility] Basil Adhikari MD LAB BLOOD ORDERABLES Fin al Result Performing Organization Address [facility] Co de Phone Number [facility] [address] [facility] [place] [address] * (ABNORMAL) POC Activated Clotting Time, High Range (03/22/2024 3:28 PM CRYSTAL GAZER) ACT 457(H) 87 - 138 sec Blood 03/22/2024 3:28 PM CRYSTAL GAZER 03/22/2024 3:28 PM CRYSTAL GAZER Result [facility] Basil Adhikari MD LAB BLOOD ORDERABLES Fin al Result Performing Organization Address City/[facility]/ZIP Co de Phone Number [facility] [address] [facility] [place] [address] * (ABNORMAL) POCT Activated clotting time, low range (03/22/2024 3:21 PM CRYSTAL GAZER) Pathologist [facility] ACT >400(H) 123 - 168 sec Blood 03/22/2024 3:21 PM CRYSTAL GAZER 03/22/2024 3:21 PM CRYSTAL GAZER us Basil Adhikari MD LAB POCT ORDERABLES - DE VICE Final Result [facility] [address] Department [place] [address] * AR AN ELECTIVE ENDOTRACHEAL AIRWAY, AR AN PROCEDURE PLACEHOLDER (03/22/2024 3:08 PM CRYSTAL GAZER) Narrative Gamal Asher MD PhD - 03/22/2024 3:08 PM CRYSTAL GAZER Gamal Asher MD PhD 03/22/2024 3:09 PM [...] Prepare RBC: 2 Units (03/22/2024 2:42 PM CRYSTAL GAZER) Pathologist [facility] Product code [id number] Unit Number [id number] 8-* [facility] Product Blood Type OPOS [facility] Dispense Status RETURNED [facility] Product code [id number] [facility] Unit Number [id number] 6-K [facility] Product Blood Type OPOS [facility] Dispense Status RETURNED [facility] Blood 03/22/2024 2:42 PM CRYSTAL GAZER Narrative [facility] - 03/26/2024 7:31 AM CRYSTAL GAZER Are special requirements needed? (All products are leukoreduced and CMV- safe)- >No Date required:-[id number] LRRBC # of [id number] Reasons:-Intra-op transfusion} us Gamal Asher MD PhD BLOOD BANK PRODUCT ORDER AMARA Final Result [facility] [address] Department [place] [address] * XR Chest 1 View - Portable - in AM (03/22/2024 7:26 AM CRYSTAL GAZER) Anatomical Region Laterality Modality Body, Chest N/A Computed Radiogr aphy 03/22/2024 8:08 AM CRYSTAL GAZER Impressions 03/22/2024 8:08 AM CRYSTAL GAZER Comparison is made to 03/21/2024. Right jugular [...] Ruy Hager M.D. Narrative 03/22/2024 8:08 AM CRYSTAL GAZER Examination: Chest 1 view Procedure Note Ruy [...] Final Result * eGFR (03/22/2024 1:34 AM CRYSTAL GAZER) Pathologist [facility] eGFR 73 >=60 mL/min/1. 73 m2 Comment: [...] last reviewed 2021. Blood 03/22/2024 1:34 AM CRYSTAL GAZER 03/22/2024 2:00 AM CRYSTAL GAZER us Brenda Mayberry NP LAB BLOOD ORDERABLES Final Result [facility] [address] Department [place] [address] * (ABNORMAL) CBC without differential (03/22/2024 1:34 AM CRYSTAL GAZER) [facility] WBC 9.0 3.8 - 9.9 K/cumm Hgb 10.2(L) 13.0 - 17.5 g/dL [facility] Hct 30.6(L) 38.9 - 50.3 % [facility] Plt 111(L) 150 - 400 K/cumm [facility] MPV 10.1 9.1 - 12.3 fL [facility] RBC 3.41(L) 4.30 - 5.80 M/cumm [facility] MCV 89.7 81.3 - 96.4 fL [facility] MCH 29.9 27.1 - 33.3 pg [facility] MCHC 33.3 32.3 - 35.7 g/dL [facility] RDW CV 12.8 11.1 - 14.9 % [facility] RDW SD 42.0 35.7 - 48.1 fL [facility] NRBC abs 0.00 0.00 - 0.01 K/cumm [facility] Blood 03/22/2024 1:34 AM CRYSTAL GAZER 03/22/2024 2:00 AM CRYSTAL GAZER Ale Mcknight NP LAB BLOOD ORDERABLES Fin al Result [facility] [address] [employer] [place], [place] [id number] * Type and screen (03/22/2024 1:34 AM CRYSTAL GAZER) Alex, indirect Negative ABO Rh O Positive [facility] Blood 03/22/2024 1:34 AM CRYSTAL GAZER 03/22/2024 1:56 AM CRYSTAL GAZER Narrative [facility] - 03/22/2024 2:43 AM CRYSTAL GAZER Has the patient had Daratumumab or Isatuximab in the past 6 months?->Unknown Ale Mcknight NP LAB BLOOD BANK TEST ORDE RABLES Final Result [facility] [address] [place] [address] * Magnesium (03/22/2024 1:34 AM CRYSTAL GAZER) Magnesium 1.9 1.4 - 2.5 mg/dL Blood 03/22/2024 1:34 AM CRYSTAL GAZER 03/22/2024 2:00 AM CRYSTAL GAZER Ale Mcknight CUSTOMER EXPERIENCE RETAIL CLERK LAB BLOOD ORDERABLES Fin al Result Performing Organization Address City/[facility]/ZIP Co de Phone Number [facility] [address] [place] [address] * (ABNORMAL) Renal function panel (03/22/2024 1:34 AM CRYSTAL GAZER) Sodium 130(L) 135 - 145 mmol/L Potassium, pl 4.1 3.3 - 4.9 mmol/L [facility] Chloride 96(L) 97 - 110 mmol/L [facility] CO2 21(L) 22 - 32 mmol/L [facility] Anion gap 13 2 - 15 mmol/L [facility] BUN 17 6 - 25 mg/dL [facility] Creatinine 1.01 0.80 - 1.30 mg/dL [facility] Glucose 94 70 - 199 mg/dL [facility] Comment: Interpretive Data Fasting glucose >/= [...] 2022. Calcium 8.3(L) 8.5 - 10.3 mg/dL [facility] Phosphorus, pl 2.8 2.3 - 4.5 mg/dL [facility] Albumin 3.2(L) 3.5 - 5.0 g/dL [facility] Blood 03/22/2024 1:34 AM CRYSTAL GAZER 03/22/2024 2:00 AM CRYSTAL GAZER Ale Mcknight CUSTOMER EXPERIENCE RETAIL CLERK LAB BLOOD ORDERABLES Fin al Result Performing Organization Address City/[facility]/ZIP Co de Phone Number [facility] [address] Department [place] [address] * (ABNORMAL) aPTT (03/21/2024 8:12 PM CRYSTAL GAZER) aPTT 43(H) 28 - 38 sec Comment: Interpretive Data Heparin therapeutic range: 66.0 - 100.0 seconds. Range based on correlation with therapeutic heparin activity range of 0.3 - 0.7 Units/mL. Current interpretive data was last revised on 2022. Blood 03/21/2024 8:12 PM CRYSTAL GAZER 03/21/2024 8:17 PM CRYSTAL GAZER Narrative [facility] - 03/21/2024 8:26 PM CRYSTAL GAZER STAT PTT timing: - Draw 6 hours [...] SOLIS LAB BLOOD ORDERABLES Final R esult [facility] [address] Department [place] [address] * (ABNORMAL) aPTT (03/21/2024 12:40 PM CRYSTAL GAZER) aPTT 47(H) 28 - 38 sec Comment: Interpretive Data Heparin therapeutic range: 66.0 - 100.0 seconds. Range based on correlation with therapeutic heparin activity range of 0.3 - 0.7 Units/mL. Current interpretive data was last revised on 2022. Blood 03/21/2024 12:4 0 PM CRYSTAL GAZER 03/21/2024 12:44 PM CRYSTAL GAZER Narrative [facility] - 03/21/2024 1:11 PM CRYSTAL GAZER STAT PTT timing: - Draw 6 hours [...] ORDERABLES Final R esult Performing Organization Address [facility] Co de Phone Number [facility] [address] Department [place] [address] * aPTT (03/21/2024 10:35 AM CRYSTAL GAZER) [facility] Signature aPTT 37 28 - 38 sec Comment: Interpretive Data Heparin therapeutic range: 66.0 - 100.0 seconds. Range based on correlation with therapeutic heparin activity range of 0.3 - 0.7 Units/mL. Current interpretive data was last revised on 2022. Blood 03/21/2024 10:3 5 AM CRYSTAL GAZER 03/21/2024 10:41 AM CRYSTAL GAZER Basil Adhikari MD LAB BLOOD ORDERABLES Fin al Result Performing Organization Address [facility]/ZIP Co de Phone Number [facility] [address] Department [place] [address] * XR Chest 1 View - Portable - in AM (03/21/2024 7:43 AM CRYSTAL GAZER) Anatomical Region Laterality Modality Body, Chest N/A Computed Radiogr aphy 03/21/2024 7:47 AM CRYSTAL GAZER Impressions 03/21/2024 7:47 AM CRYSTAL GAZER Right internal jugular central venous catheter terminates in the superior cavoatrial junction. Median sternotomy. Aortic valve replacement. Calcified atherosclerotic aorta. Mild cardiomegaly is unchanged. There is bibasilar subsegmental atelectasis, unchanged from the prior examination. Questionable small left pleural effusion is also unchanged. No pneumothorax. Electronically signed by: Manuel Mike M.D. Narrative 03/21/2024 7:47 AM CRYSTAL GAZER PORTABLE CHEST RADIOGRAPH INDICATION: pleural effusion COMPARISON: [...] signed by: Manuel Mike M.D. Ale Mcknight CUSTOMER EXPERIENCE RETAIL CLERK IMG XR PROCEDURES Final Result * (ABNORMAL) aPTT (03/21/2024 2:27 AM CRYSTAL GAZER) aPTT 60(H) 28 - 38 sec Comment: Interpretive Data Heparin therapeutic range: 66.0 - 100.0 seconds. Range based on correlation with therapeutic heparin activity range of 0.3 - 0.7 Units/mL. Current interpretive data was last revised on 2022. Blood 03/21/2024 2:27 AM CRYSTAL GAZER 03/21/2024 2:52 AM CRYSTAL GAZER Francis [facility] - 03/21/2024 3:10 AM CRYSTAL GAZER STAT PTT timing: - Draw 6 hours [...] ORDERABLES Final R esult Performing Organization Address [facility] Co de Phone Number [facility] [address] Department [place] [address] * eGFR (03/21/2024 2:24 AM CRYSTAL GAZER) eGFR 77 >=60 mL/min/1. 73 m2 Comment: [...] last reviewed 2021. Blood 03/21/2024 2:24 AM CRYSTAL GAZER 03/21/2024 2:52 AM CRYSTAL GAZER us Brenda Mayberry CUSTOMER EXPERIENCE RETAIL CLERK LAB BLOOD ORDERABLES Final Result Performing Organization Address [facility]/ZIP Co de Phone Number [facility] [address] Department [place] [address] * (ABNORMAL) CBC without differential (03/21/2024 2:24 AM CRYSTAL GAZER) Pathologist [facility] WBC 10.9(H) 3.8 - 9.9 K/cumm Hgb 11.1(L) 13.0 - 17.5 g/dL [facility] Hct 32.9(L) 38.9 - 50.3 % [facility] Plt 97(L) 150 - 400 K/cumm [facility] MPV 10.2 9.1 - 12.3 fL [facility] RBC 3.68(L) 4.30 - 5.80 M/cumm [facility] MCV 89.4 81.3 - 96.4 fL [facility] MCH 30.2 27.1 - 33.3 pg [facility] MCHC 33.7 32.3 - 35.7 g/dL [facility] RDW CV 12.7 11.1 - 14.9 % [facility] RDW SD 41.5 35.7 - 48.1 fL [facility] NRBC abs 0.00 0.00 - 0.01 K/cumm [facility] Blood 03/21/2024 2:24 AM CRYSTAL GAZER 03/21/2024 2:52 AM CRYSTAL GAZER Ale Mcknight CUSTOMER EXPERIENCE RETAIL CLERK LAB BLOOD ORDERABLES Fin al Result Performing Organization Address [facility] Co de Phone Number [facility] [address] [facility] [employer] [place], [place] [id number] * Magnesium (03/21/2024 2:24 AM CRYSTAL GAZER) Pathologist [facility] Magnesium 1.8 1.4 - 2.5 mg/dL Blood 03/21/2024 2:24 AM CRYSTAL GAZER 03/21/2024 2:52 AM CRYSTAL GAZER Ale Mcknight CUSTOMER EXPERIENCE RETAIL CLERK LAB BLOOD ORDERABLES Fin al Result Performing Organization Address City/[facility] Co de Phone Number [facility] [address] [facility] [place] [address] * (ABNORMAL) Renal function panel (03/21/2024 2:24 AM CRYSTAL GAZER) Sodium 128(L) 135 - 145 mmol/L Potassium, pl 4.0 3.3 - 4.9 mmol/L [facility] Chloride 96(L) 97 - 110 mmol/L [facility] CO2 21(L) 22 - 32 mmol/L [facility] Anion gap 11 2 - 15 mmol/L [facility] BUN 18 6 - 25 mg/dL [facility] Creatinine 0.97 0.80 - 1.30 mg/dL [facility] Glucose 108 70 - 199 mg/dL [facility] Comment: Interpretive Data Fasting glucose >/= [...] 2022. Calcium 8.4(L) 8.5 - 10.3 mg/dL [facility] Phosphorus, pl 1.8(L) 2.3 - 4.5 mg/dL [facility] Albumin 3.4(L) 3.5 - 5.0 g/dL [facility] Blood 03/21/2024 2:24 AM CRYSTAL GAZER 03/21/2024 2:52 AM CRYSTAL GAZER Ale Mcknight NP LAB BLOOD ORDERABLES Fin al Result [facility] [address] Department [place] [address] * (ABNORMAL) aPTT (03/20/2024 4:57 PM CRYSTAL GAZER) [facility] aPTT 48(H) 28 - 38 sec Comment: Interpretive Data Heparin therapeutic range: 66.0 - 100.0 seconds. Range based on correlation with therapeutic heparin activity range of 0.3 - 0.7 Units/mL. Current interpretive data was last revised on 2022. Blood 03/20/2024 4:57 PM CRYSTAL GAZER 03/20/2024 5:16 PM CRYSTAL GAZER Narrative [facility] - 03/20/2024 5:33 PM CRYSTAL GAZER STAT PTT timing: - Draw 6 hours [...] Benny SOLIS LAB BLOOD ORDERABLES Final [facility] Performing Organization Address City/[facility] Co de Phone Number [facility] [address] [employer] [place], [place] [phone] * aPTT (03/20/2024 9:27 AM CRYSTAL GAZER) aPTT 34 28 - 38 sec Comment: Interpretive Data Heparin therapeutic range: 66.0 - 100.0 seconds. Range based on correlation with therapeutic heparin activity range of 0.3 - 0.7 Units/mL. Current interpretive data was last revised on 2022. Blood 03/20/2024 9:27 AM CRYSTAL GAZER 03/20/2024 9:41 AM CRYSTAL GAZER Narrative [facility] - 03/20/2024 9:57 AM CRYSTAL GAZER Baseline prior to heparin initiation Benny SOLIS LAB BLOOD ORDERABLES Final R [facility] Performing Organization Address City/[facility]/ZIP Co de Phone Number [facility] [address] [employer] [place], [place] [id number] * (ABNORMAL) Protime-INR (03/20/2024 9:27 AM CRYSTAL GAZER) PT 14.9(H) 9.7 - 13.0 sec INR 1.37(H) 0.90 - 1.20 [facility] Comment: Interpretive data Oral anticoagulant therapeutic ranges: Venous thromboembolism prophylaxis or treatment: 2.0-3.0 CARDIOLOGY Standard range: 2.0-3.0 High-intensity range: 2.5-3.5 Refer to indication-specific guidelines for appropriate target ranges for prosthetic heart valve replacement. Current interpretive data was last revised on 2019. Blood 03/20/2024 9:27 AM CRYSTAL GAZER 03/20/2024 9:41 AM CRYSTAL GAZER Narrative [facility] - 03/20/2024 9:57 AM CRYSTAL GAZER Baseline prior to heparin initiation us Benny SOLIS LAB BLOOD ORDERABLES Final R esult [facility] [address] Department [place] [address] * XR Chest 1 View - Portable - in AM (03/20/2024 9:17 AM CRYSTAL GAZER) Anatomical Region Laterality Modality Body, Chest N/A Computed Radiogr aphy 03/20/2024 2:59 PM CRYSTAL GAZER Impressions 03/20/2024 2:59 PM CRYSTAL GAZER Comparison is made to prior examination 03/19/2024. Unchanged median sternotomy wires and aortic valve replacement. Right internal jugular central venous catheter tip overlies superior caval atrial junction. Surgical drain is in place. Stable to minimally increased bibasilar opacities favored represent atelectasis with possible small left pleural effusion. No pneumothorax. Unchanged cardiomegaly. Electronically signed by: Gian Henriquez M.D. Narrative 03/20/2024 2:59 PM CRYSTAL GAZER EXAMINATION: XR CHEST 1 VIEW Procedure Note [...] cardiomegaly. Electronically signed by: Gian Henriquez M.D. Result [facility] Ale Mcknight NP IMG XR PROCEDURES Final Result * eGFR (03/20/2024 1:03 AM CRYSTAL GAZER) eGFR 72 >=60 mL/min/1. 73 m2 Comment: [...] last reviewed 2021. Blood 03/20/2024 1:03 AM CRYSTAL GAZER 03/20/2024 1:33 AM CRYSTAL GAZER Brenda Mayberry NP LAB BLOOD ORDERABLES Final Result [facility] [address] Department [place] [address] * Calcium, ionized (03/20/2024 1:03 AM CRYSTAL GAZER) Calcium, Ionized 4.80 4.50 - 5.10 mg/dL Blood 03/20/2024 1:03 AM CRYSTAL GAZER 03/20/2024 1:11 AM CRYSTAL GAZER Brenda Mayberry CUSTOMER EXPERIENCE RETAIL CLERK LAB BLOOD ORDERABLES Final Result Performing Organization Address [facility] de Phone Number [facility] [address] [facility] [place] [address] * (ABNORMAL) CBC without differential (03/20/2024 1:03 AM CRYSTAL GAZER) [facility] WBC 12.7(H) 3.8 - 9.9 K/cumm Hgb 12.2(L) 13.0 - 17.5 g/dL [facility] Hct 35.9(L) 38.9 - 50.3 % [facility] Plt 104(L) 150 - 400 K/cumm [facility] MPV 10.0 9.1 - 12.3 fL [facility] RBC 4.04(L) 4.30 - 5.80 M/cumm [facility] MCV 88.9 81.3 - 96.4 fL [facility] MCH 30.2 27.1 - 33.3 pg [facility] MCHC 34.0 32.3 - 35.7 g/dL [facility] RDW CV 12.8 11.1 - 14.9 % [facility] RDW SD 41.5 35.7 - 48.1 fL [facility] NRBC abs 0.00 0.00 - 0.01 K/cumm [facility] Blood 03/20/2024 1:03 AM CRYSTAL GAZER 03/20/2024 1:33 AM CRYSTAL GAZER Result [facility] Ale Mcknight CUSTOMER EXPERIENCE RETAIL CLERK LAB BLOOD ORDERABLES Fin al Result Performing Organization Address [facility]/ZIP Co de Phone Number [facility] [address] Department [place] [address] * Magnesium (03/20/2024 1:03 AM CRYSTAL GAZER) [facility] Magnesium 2.0 1.4 - 2.5 mg/dL Blood 03/20/2024 1:03 AM CRYSTAL GAZER 03/20/2024 1:33 AM CRYSTAL GAZER Ale Mcknight CUSTOMER EXPERIENCE RETAIL CLERK LAB BLOOD ORDERABLES Fin al Result Performing Organization Address [facility]/ZIP Co de Phone Number [facility] [address] [employer] [place] [address] * (ABNORMAL) Renal function panel (03/20/2024 1:03 AM CRYSTAL GAZER) Sodium 132(L) 135 - 145 mmol/L Potassium, pl 4.5 3.3 - 4.9 mmol/L [facility] Chloride 99 97 - 110 mmol/L [facility] CO2 21(L) 22 - 32 mmol/L [facility] Anion gap 12 2 - 15 mmol/L [facility] BUN 17 6 - 25 mg/dL [facility] Creatinine 1.03 0.80 - 1.30 mg/dL [facility] Glucose 119 70 - 199 mg/dL [facility] Comment: Interpretive Data Fasting glucose >/= [...] 2022. Calcium 8.8 8.5 - 10.3 mg/dL [facility] Phosphorus, pl 2.7 2.3 - 4.5 mg/dL [facility] Albumin 3.6 3.5 - 5.0 g/dL [facility] Blood 03/20/2024 1:03 AM CRYSTAL GAZER 03/20/2024 1:33 AM CRYSTAL GAZER Ale Mcknight CUSTOMER EXPERIENCE RETAIL CLERK LAB BLOOD ORDERABLES Fin al Result Performing Organization Address [facility]/ZIP Co de Phone Number [facility] [address] [place] [address] * Prepare RBC: 2 Units (03/19/2024 4:56 PM CRYSTAL GAZER) Product code [id number] [facility] Unit Number [id number] 2-F [facility] Product Blood Type OPOS [facility] Dispense Status RETURNED [facility] Product code [id number] Unit Number [id number] 3-Q [facility] Product Blood Type OPOS [facility] Dispense Status RETURNED [facility] Blood 03/19/2024 4:56 PM CRYSTAL GAZER Narrative [facility] - 03/19/2024 5:48 PM CRYSTAL GAZER Specify Procedure:->iliac stent Are special requirements needed? (All products are leukoreduced and CMV- safe)- >No Date required:-[id number] LRRBC # of [id number] Reasons:-Hold for procedure (specify procedure)} Basil Adhikari MD BLOOD BANK PRODUCT ORDER AMARA Final Result [facility] [address] Department [place] [address] * CTA Abdomen Pelvis (03/19/2024 9:06 AM CRYSTAL GAZER) Anatomical Region Laterality Modality Body N/A Computed Tomogra phy 03/19/2024 12:2 8 PM CRYSTAL GAZER Impressions 03/19/2024 12:49 PM CRYSTAL GAZER 1. Left common iliac artery aneurysm measuring [...] Josr Lindsey M.D. Narrative 03/19/2024 12:49 PM CRYSTAL GAZER EXAMINATION: CT ANGIOGRAPHY OF THE ABDOMEN AND [...] Re sult * Potassium (03/19/2024 6:48 AM CRYSTAL GAZER) [facility] Signature Potassium, pl 4.7 3.3 - 4.9 mmol/L Blood 03/19/2024 6:48 AM CRYSTAL GAZER 03/19/2024 7:04 AM CRYSTAL GAZER Brenda Mayberry NP LAB BLOOD ORDERABLES Final Result [facility] [address] Department [place] [address] * Critical Care (03/19/2024 6:40 AM CRYSTAL GAZER) Narrative Gian Robertson MD - 03/19/2024 6:40 AM CRYSTAL GAZER Brenda Mayberry NP 03/19/2024 10:29 AM Critical Care Performed by: Brenda Mayberry NP Authorized by: Brenda Mayberry NP CRITICAL CARE: Team: [facility] CT Shift: AM Level of Billing: [...] plan with the patient's team and other medical/supervisor home energy consultant staff. This time was in addition to and separate from care provided by other practitioners on this day of service. Brenda Mayberry CUSTOMER EXPERIENCE RETAIL CLERK IN CLINIC/BEDSIDE ORDERABL ES Final Result * XR Chest 1 View - Portable - in AM (03/19/2024 6:37 AM CRYSTAL GAZER) Anatomical Region Laterality Modality Body, Chest N/A Computed Radiogr aphy 03/19/2024 7:56 AM CRYSTAL GAZER Impressions 03/19/2024 7:56 AM CRYSTAL GAZER Comparison is made to prior chest radiograph [...] Josselin Xavier M.D. Narrative 03/19/2024 7:56 AM CRYSTAL GAZER EXAMINATION: XR CHEST 1 VIEW Procedure Note [...] signed by: Josselin Xavier M.D. Ale Mcknight CUSTOMER EXPERIENCE RETAIL CLERK IMG XR PROCEDURES Final Result * POCT glucose (03/19/2024 6:01 AM CRYSTAL GAZER) Glucose, POC 110 70 - 199 mg/dL Comment: For Glucose values <35 mg/dl when Hematocrit is >60 mg/dl,the test may not accurately detect significant hypoglycemia,and testing in the Laboratory should be considered if clinically indicated. Blood 03/19/2024 6:01 AM CRYSTAL GAZER 03/19/2024 6:01 AM CRYSTAL GAZER Basil Adhikari MD LAB POCT ORDERABLES - DE VICE Final Result Performing Organization Address [facility] Co de Phone Number [facility] [address] [facility] [place] [address] * POCT glucose (03/19/2024 2:13 AM CRYSTAL GAZER) Glucose, POC 111 70 - 199 mg/dL Comment: For Glucose values <35 mg/dl when Hematocrit is >60 mg/dl,the test may not accurately detect significant hypoglycemia,and testing in the Laboratory should be considered if clinically indicated. Blood 03/19/2024 2:13 AM CRYSTAL GAZER 03/19/2024 2:13 AM CRYSTAL GAZER Basil Adhikari MD LAB POCT ORDERABLES - DE VICE Final Result Performing Organization Address [facility] Co de Phone Number [facility] [address] [facility] [place] [address] * POCT glucose (03/19/2024 12:18 AM CRYSTAL GAZER) Glucose, POC 145 70 - 199 mg/dL Comment: For Glucose values <35 mg/dl when Hematocrit is >60 mg/dl,the test may not accurately detect significant hypoglycemia,and testing in the Laboratory should be considered if clinically indicated. Blood 03/19/2024 12:1 8 AM CRYSTAL GAZER 03/19/2024 12:18 AM CRYSTAL GAZER Basil Adhikari MD LAB POCT ORDERABLES - DE VICE Final Result Performing Organization Address City/[facility] Co de Phone Number [facility] [address] [facility] [place] [address] * eGFR (03/19/2024 12:04 AM CRYSTAL GAZER) eGFR 85 >=60 mL/min/1. 73 m2 Comment: [...] reviewed 2021. Blood 03/19/2024 12:0 4 AM CRYSTAL GAZER 03/19/2024 12:58 AM CRYSTAL GAZER Brenda Mayberry NP LAB BLOOD ORDERABLES Final Result Performing Organization Address City/[facility] Co de Phone Number [facility] [address] [facility] [place] [address] * (ABNORMAL) Calcium, ionized (03/19/2024 12:04 AM CRYSTAL GAZER) Calcium, Ionized 4.47(L) 4.50 - 5.10 mg/dL Blood 03/19/2024 12:0 4 AM CRYSTAL GAZER 03/19/2024 12:26 AM CRYSTAL GAZER Brenda Mayberry NP LAB BLOOD ORDERABLES Final Result Performing Organization Address City/[facility] Co de Phone Number [facility] [address] Department [place] [address] * (ABNORMAL) CBC without differential (03/19/2024 12:04 AM CRYSTAL GAZER) [facility] WBC 8.7 3.8 - 9.9 K/cumm Hgb 12.5(L) 13.0 - 17.5 g/dL [facility] Hct 36.8(L) 38.9 - 50.3 % [facility] Plt 103(L) 150 - 400 K/cumm [facility] MPV 10.4 9.1 - 12.3 fL [facility] RBC 4.14(L) 4.30 - 5.80 M/cumm [facility] MCV 88.9 81.3 - 96.4 fL [facility] MCH 30.2 27.1 - 33.3 pg [facility] MCHC 34.0 32.3 - 35.7 g/dL [facility] RDW CV 12.6 11.1 - 14.9 % [facility] RDW SD 41.0 35.7 - 48.1 fL [facility] NRBC abs 0.00 0.00 - 0.01 K/cumm [facility] Blood 03/19/2024 12:0 4 AM CRYSTAL GAZER 03/19/2024 12:58 AM CRYSTAL GAZER Ale Mcknight CUSTOMER EXPERIENCE RETAIL CLERK LAB BLOOD ORDERABLES Fin al Result Performing Organization Address [facility] Co de Phone Number [facility] [address] [facility] [employer] [place], [place] [id number] * Magnesium (03/19/2024 12:04 AM CRYSTAL GAZER) [facility] Magnesium 2.0 1.4 - 2.5 mg/dL Blood 03/19/2024 12:0 4 AM CRYSTAL GAZER 03/19/2024 12:58 AM CRYSTAL GAZER Ale Mcknight CUSTOMER EXPERIENCE RETAIL CLERK LAB BLOOD ORDERABLES Fin al Result Performing Organization Address [facility] Co de Phone Number [facility] [address] [place] [address] * (ABNORMAL) Renal function panel (03/19/2024 12:04 AM CRYSTAL GAZER) Pathologist [facility] Sodium 131(L) 135 - 145 mmol/L Potassium, pl 5.1(H) 3.3 - 4.9 mmol/L [facility] Comment:Hemolyzed; potassium value may be falsely elevated by as much as 0.6 - 1.0 mmol/L. Suggest redraw and reanalysis Chloride 102 97 - 110 mmol/L [facility] CO2 18(L) 22 - 32 mmol/L [facility] Anion gap 11 2 - 15 mmol/L [facility] BUN 12 6 - 25 mg/dL [facility] Creatinine 0.88 0.80 - 1.30 mg/dL [facility] Glucose 146 70 - 199 mg/dL [facility] Comment: Interpretive Data Fasting glucose >/= [...] 2022. Calcium 8.5 8.5 - 10.3 mg/dL [facility] Phosphorus, pl 3.7 2.3 - 4.5 mg/dL [facility] Albumin 3.7 3.5 - 5.0 g/dL [facility] Blood 03/19/2024 12:0 4 AM CRYSTAL GAZER 03/19/2024 12:58 AM CRYSTAL GAZER us Ale Mcknight NP LAB BLOOD ORDERABLES Fin al Result [facility] [address] Department [place] [address] * POCT glucose (03/18/2024 9:02 PM CRYSTAL GAZER) Pathologist [facility] Glucose, POC 102 70 - 199 mg/dL Comment: For Glucose values <35 mg/dl when Hematocrit is >60 mg/dl,the test may not accurately detect significant hypoglycemia,and testing in the Laboratory should be considered if clinically indicated. Blood 03/18/2024 9:02 PM CRYSTAL GAZER 03/18/2024 9:02 PM CRYSTAL GAZER Basil Adhikari MD LAB POCT ORDERABLES - DE VICE Final Result Performing Organization Address [facility] Co de Phone Number [facility] [address] Department [place] [address] * (ABNORMAL) Blood gas, arterial (03/18/2024 7:23 PM CRYSTAL GAZER) pH, Art 7.45 7.35 - 7.45 PCO2, Arterial 28(L) 35 - 45 mmHg [facility] PO2, Arterial 195(H) 83 - 108 mmHg [facility] HCO3 Art (Calculated) 20 20 - 30 mmol/L [facility] BE, art -3 mmol/L [facility] Comment: Interpretive Data No Reference Range Established Current Interpretive Data was last revised on 2017 O2 Sat Art (Calculated) 100(H) 94 - 98 % [facility] Blood 03/18/2024 7:23 PM CRYSTAL GAZER 03/18/2024 7:28 PM CRYSTAL GAZER Brenda Mayberry NP LAB BLOOD ORDERABLES Final Result Performing Organization Address [facility] Co de Phone Number [facility] [address] Department [place] [address] * POCT glucose (03/18/2024 7:12 PM CRYSTAL GAZER) Glucose, POC 114 70 - 199 mg/dL Comment: For Glucose values <35 mg/dl when Hematocrit is >60 mg/dl,the test may not accurately detect significant hypoglycemia,and testing in the Laboratory should be considered if clinically indicated. Blood 03/18/2024 7:12 PM CRYSTAL GAZER 03/18/2024 7:12 PM CRYSTAL GAZER Basil Adhikari MD LAB POCT ORDERABLES - DE VICE Final Result Performing Organization Address City/[facility]/ZIP Co de Phone Number [facility] [address] [place] [address] * Critical Care (03/18/2024 6:39 PM CRYSTAL GAZER) Narrative Gian Robertson MD - 03/18/2024 6:39 PM CRYSTAL GAZER Roderick Couch DNP 03/19/2024 5:10 AM Critical Care Performed by: Roderick Couch DNP Authorized by: Roderick Couch DNP CRITICAL CARE: Team: [facility] CT Shift: PM Level of Billing: [...] plan with the patient's team and other medical/supervisor home energy consultant staff. This time was in addition to and separate from care provided by other practitioners on this day of service. Roderick Couch DNP IN CLINIC/BEDSIDE OR DERABLES Final Result * POCT glucose (03/18/2024 6:07 PM CRYSTAL GAZER) [facility] Glucose, POC 82 70 - 199 mg/dL Comment: For Glucose values <35 mg/dl when Hematocrit is >60 mg/dl,the test may not accurately detect significant hypoglycemia,and testing in the Laboratory should be considered if clinically indicated. Blood 03/18/2024 6:07 PM CRYSTAL GAZER 03/18/2024 6:07 PM CRYSTAL GAZER Basil Adhikari MD LAB POCT ORDERABLES - DE VICE Final Result Performing Organization Address City/[facility]/ZIP Co de Phone Number [facility] [address] Department of Laboratories [place], [place] [id number] * XR Chest 1 View - Portable (03/18/2024 4:41 PM CRYSTAL GAZER) Anatomical Region Laterality Modality Body, Chest N/A Computed Radiogr aphy 03/18/2024 6:28 PM CRYSTAL GAZER Impressions 03/18/2024 6:28 PM CRYSTAL GAZER FINDINGS/IMPRESSION: Postoperative changes of ascending aortic replacement is seen with sternotomy wires, and prosthetic aortic valve in place. A right IJ central venous catheter tip terminates in the superior vena cava. The right IJ [employer] catheter terminates in the main pulmonary artery. Mediastinal drains are seen. Bilateral shoulder arthroplasties are seen. Surgical clips superimposes the neck. Minimal left basilar atelectatic changes are seen. There is no focal consolidation, pleural effusion or pneumothorax. Cardiomediastinum is stable. Electronically signed by: Starla Hidalgo M.D. Narrative 03/18/2024 6:28 PM CRYSTAL GAZER EXAMINATION: XR CHEST 1 VIEW HISTORY: cardiac [...] the superior vena cava. The right IJ [employer] catheter terminates in the main pulmonary artery. Mediastinal drains are seen. Bilateral shoulder arthroplasties are seen. Surgical clips superimposes the neck. Minimal left basilar atelectatic changes are seen. There is no focal consolidation, pleural effusion or pneumothorax. Cardiomediastinum is stable. Electronically signed by: Starla Hidalgo M.D. Brenda Mayberry NP IMG XR PROCEDURES Final Re sult * POCT glucose (03/18/2024 4:27 PM CRYSTAL GAZER) Glucose, POC 121 70 - 199 mg/dL Comment: For Glucose values <35 mg/dl when Hematocrit is >60 mg/dl,the test may not accurately detect significant hypoglycemia,and testing in the Laboratory should be considered if clinically indicated. Blood 03/18/2024 4:27 PM CRYSTAL GAZER 03/18/2024 4:27 PM CRYSTAL GAZER us Basil Adhikari MD LAB POCT ORDERABLES - DE VICE Final Result [facility] [address] Department [place] [address] * Critical Care (03/18/2024 4:19 PM CRYSTAL GAZER) Narrative Gian Robertson MD - 03/18/2024 4:19 PM CRYSTAL GAZER Brenda Mayberry NP 03/18/2024 5:34 PM Critical Care Performed by: Brenda Mayberry NP Authorized by: Brenda Mayberry NP CRITICAL CARE: Team: [facility] CT Shift: AM Level of Billing: [...] plan with the ICU team and other medical/supervisor home energy consultant staff, making frequent assessments and decisions [...] Final Result * eGFR (03/18/2024 4:17 PM CRYSTAL GAZER) eGFR 81 >=60 mL/min/1. 73 m2 Comment: [...] last reviewed 2021. Blood 03/18/2024 4:17 PM CRYSTAL GAZER 03/18/2024 4:32 PM CRYSTAL GAZER Brenda Mayberry NP LAB BLOOD ORDERABLES Final Result Performing Organization Address City/[facility]/ZIP Co de Phone Number [facility] [address] Department of [employer] [place], [place] [id number] * (ABNORMAL) Calcium, ionized (03/18/2024 4:17 PM CRYSTAL GAZER) Pathologist [facility] Calcium, Ionized 5.37(H) 4.50 - 5.10 mg/dL Blood 03/18/2024 4:17 PM CRYSTAL GAZER 03/18/2024 4:32 PM CRYSTAL GAZER Brenda Mayberry NP LAB BLOOD ORDERABLES Final Result Performing Organization Address City/[facility]/ZIP Co de Phone Number [facility] [address] Department [place] [address] * aPTT (03/18/2024 4:17 PM CRYSTAL GAZER) aPTT 37 28 - 38 sec Comment: Interpretive Data Heparin therapeutic range: 66.0 - 100.0 seconds. Range based on correlation with therapeutic heparin activity range of 0.3 - 0.7 Units/mL. Current interpretive data was last revised on 2022. Blood 03/18/2024 4:17 PM CRYSTAL GAZER 03/18/2024 4:32 PM CRYSTAL GAZER Brenda Mayberry CUSTOMER EXPERIENCE RETAIL CLERK LAB BLOOD ORDERABLES Final Result Performing Organization Address [facility] de Phone Number [facility] [address] Department [place] [address] * (ABNORMAL) Protime-INR (03/18/2024 4:17 PM CRYSTAL GAZER) Pathologist [facility] PT 16.0(H) 9.7 - 13.0 sec INR 1.47(H) 0.90 - 1.20 [facility] Comment: Interpretive data Oral anticoagulant therapeutic ranges: Venous thromboembolism prophylaxis or treatment: 2.0-3.0 CARDIOLOGY Standard range: 2.0-3.0 High-intensity range: 2.5-3.5 Refer to indication-specific guidelines for appropriate target ranges for prosthetic heart valve replacement. Current interpretive data was last revised on 2019. Blood 03/18/2024 4:17 PM CRYSTAL GAZER 03/18/2024 4:32 PM CRYSTAL GAZER Brenda Mayberry NP LAB BLOOD ORDERABLES Final Result Performing Organization Address [facility] Co de Phone Number [facility] [address] [place] [address] * (ABNORMAL) CBC without differential (03/18/2024 4:17 PM CRYSTAL GAZER) Pathologist [facility] WBC 8.5 3.8 - 9.9 K/cumm Hgb 11.1(L) 13.0 - 17.5 g/dL [facility] Hct 31.9(L) 38.9 - 50.3 % [facility] Plt 95(L) 150 - 400 K/cumm [facility] MPV 9.2 9.1 - 12.3 fL [facility] RBC 3.65(L) 4.30 - 5.80 M/cumm [facility] MCV 87.4 81.3 - 96.4 fL [facility] MCH 30.4 27.1 - 33.3 pg [facility] MCHC 34.8 32.3 - 35.7 g/dL [facility] RDW CV 12.5 11.1 - 14.9 % [facility] RDW SD 39.9 35.7 - 48.1 fL [facility] NRBC abs 0.00 0.00 - 0.01 K/cumm [facility] Blood 03/18/2024 4:17 PM CRYSTAL GAZER 03/18/2024 4:32 PM CRYSTAL GAZER Brenda Mayberry NP LAB BLOOD ORDERABLES Final Result Performing Organization Address [facility] Co de Phone Number [facility] [address] [facility] [place] [address] * Phosphorus (03/18/2024 4:17 PM CRYSTAL GAZER) Phosphorus, pl 3.6 2.3 - 4.5 mg/dL Blood 03/18/2024 4:17 PM CRYSTAL GAZER 03/18/2024 4:32 PM CRYSTAL GAZER Brenda Mayberry NP LAB BLOOD ORDERABLES Final Result Performing Organization Address [facility] Co de Phone Number [facility] [address] [place] [address] * Magnesium (03/18/2024 4:17 PM CRYSTAL GAZER) Magnesium 2.3 1.4 - 2.5 mg/dL Blood 03/18/2024 4:17 PM CRYSTAL GAZER 03/18/2024 4:32 PM CRYSTAL GAZER Brenda Mayberry NP LAB BLOOD ORDERABLES Final Result Performing Organization Address [facility] Co de Phone Number [facility] [address] [place] [address] * (ABNORMAL) Blood gas, arterial (03/18/2024 4:17 PM CRYSTAL GAZER) pH, Art 7.41 7.35 - 7.45 PCO2, Arterial 33(L) 35 - 45 mmHg [facility] PO2, Arterial 168(H) 83 - 108 mmHg [facility] HCO3 Art (Calculated) 21 20 - 30 mmol/L [facility] BE, art -3 mmol/L [facility] Comment: Interpretive Data No Reference Range Established Current Interpretive Data was last revised on 2017 O2 Sat Art (Calculated) 100(H) 94 - 98 % [facility] Blood 03/18/2024 4:17 PM CRYSTAL GAZER 03/18/2024 4:32 PM CRYSTAL GAZER Brenda Mayberry NP LAB BLOOD ORDERABLES Final Result [facility] [address] Department [place] [address] * (ABNORMAL) Basic metabolic panel (03/18/2024 4:17 PM CRYSTAL GAZER) Sodium 137 135 - 145 mmol/L Potassium, pl 4.3 3.3 - 4.9 mmol/L [facility] Chloride 108 97 - 110 mmol/L [facility] CO2 21(L) 22 - 32 mmol/L [facility] Anion gap 8 2 - 15 mmol/L [facility] BUN 12 6 - 25 mg/dL [facility] Creatinine 0.93 0.80 - 1.30 mg/dL [facility] Glucose 124 70 - 199 mg/dL [facility] Comment: Interpretive Data Fasting glucose >/= [...] 2022. Calcium 9.0 8.5 - 10.3 mg/dL [facility] Blood 03/18/2024 4:17 PM CRYSTAL GAZER 03/18/2024 4:32 PM CRYSTAL GAZER Result [facility] Brenda Mayberry CUSTOMER EXPERIENCE RETAIL CLERK LAB BLOOD ORDERABLES Final Result Performing Organization Address [facility] Co de Phone Number [facility] [address] [facility] [place] [address] * aPTT (03/18/2024 3:38 PM CRYSTAL GAZER) aPTT 38 28 - 38 sec Comment: Interpretive Data Heparin therapeutic range: 66.0 - 100.0 seconds. Range based on correlation with therapeutic heparin activity range of 0.3 - 0.7 Units/mL. Current interpretive data was last revised on 2022. Blood 03/18/2024 3:38 PM CRYSTAL GAZER 03/18/2024 3:38 PM CRYSTAL GAZER Result [facility] Basil Adhikari MD LAB BLOOD ORDERABLES Fin al Result Performing Organization Address [facility] Co de Phone Number [facility] [address] [facility] [place] [address] * (ABNORMAL) Protime-INR (03/18/2024 3:38 PM CRYSTAL GAZER) PT 17.5(H) 9.7 - 13.0 sec INR 1.60(H) 0.90 - 1.20 [facility] Comment: Interpretive data Oral anticoagulant therapeutic ranges: Venous thromboembolism prophylaxis or treatment: 2.0-3.0 CARDIOLOGY Standard range: 2.0-3.0 High-intensity range: 2.5-3.5 Refer to indication-specific guidelines for appropriate target ranges for prosthetic heart valve replacement. Current interpretive data was last revised on 2019. Blood 03/18/2024 3:38 PM CRYSTAL GAZER 03/18/2024 3:38 PM CRYSTAL GAZER Result [facility] Basil Adhikari MD LAB BLOOD ORDERABLES Fin al Result Performing Organization Address City/[facility]/ZIP Co de Phone Number [facility] [address] [facility] [employer] [place], [place] [id number] * Fibrinogen (03/18/2024 3:38 PM CRYSTAL GAZER) Pathologist [facility] Fibrinogen 184 170 - 400 mg/dL Blood 03/18/2024 3:38 PM CRYSTAL GAZER 03/18/2024 3:38 PM CRYSTAL GAZER Basil Adhikari MD LAB BLOOD ORDERABLES Fin al Result Performing Organization Address [facility] Co de Phone Number [facility] [address] [employer] [place] [address] * (ABNORMAL) CBC without differential (03/18/2024 3:38 PM CRYSTAL GAZER) [facility] WBC 14.2(H) 3.8 - 9.9 K/cumm Hgb 10.6(L) 13.0 - 17.5 g/dL [facility] Hct 30.7(L) 38.9 - 50.3 % [facility] Plt 108(L) 150 - 400 K/cumm [facility] MPV 9.5 9.1 - 12.3 fL [facility] RBC 3.46(L) 4.30 - 5.80 M/cumm [facility] MCV 88.7 81.3 - 96.4 fL [facility] MCH 30.6 27.1 - 33.3 pg [facility] MCHC 34.5 32.3 - 35.7 g/dL [facility] RDW CV 12.5 11.1 - 14.9 % [facility] RDW SD 40.1 35.7 - 48.1 fL [facility] NRBC abs 0.00 0.00 - 0.01 K/cumm [facility] Blood 03/18/2024 3:38 PM CRYSTAL GAZER 03/18/2024 3:38 PM CRYSTAL GAZER Basil Adhikari MD LAB BLOOD ORDERABLES Fin al Result [facility] [address] Department [place] [address] * POC Activated Clotting Time, High Range (03/18/2024 3:35 PM CRYSTAL GAZER) ACT 130 87 - 138 sec Blood 03/18/2024 3:35 PM CRYSTAL GAZER 03/18/2024 3:35 PM CRYSTAL GAZER us Basil Adhikari MD LAB BLOOD ORDERABLES Fin al Result Performing Organization Address [facility] Co de Phone Number [facility] [address] Department [place] [address] * (ABNORMAL) POC Blood Gas and Chemistries, Arterial - (03/18/2024 3:35 PM CRYSTAL GAZER) Pathologist [facility] pH, Art POC 7.37 7.35 - 7.45 pCO2, Art POC 42 35 - 45 mmHg [facility] pO2, Art POC 330(H) 80 - 108 mmHg [facility] Na, POC 130(L) 135 - 145 mmol/L [facility] K POC 4.6 3.3 - 4.9 mmol/L [facility] Comment: Interpretive Data This method is not able to assess for hemolysis, which may falsely increase potassium concentrations. If further testing is needed to evaluate this result, consider in-laboratory plasma potassium. Current Interpretive Data was last revised on 2021. Cl, POC 103 97 - 110 mmol/L [facility] Ionized Ca, POC 6.06(H) 4.50 - 5.10 mg/dL [facility] Glucose, POC 157 70 - 199 mg/dL [facility] Lactate, POC 1.0 0.0 - 2.0 mmol/L [facility] O2Hb, Art POC 96.9(H) 90.0 - 95.0 % [facility] Carboxhgb fract 1.0 0.0 - 2.9 % [facility] Methemoglobin 1.3 0.0 - 1.9 % [facility] HHb, POC 0.9 0.0 - 5.0 % [facility] SO2 (shayne) arterial 99(H) 90 - 95 % [facility] BE, art, POC -1.0 -2.0 - 2.0 mmol/L [facility] HCO3, Art POC 24 20 - 30 mmol/L [facility] Hct, POC 34.0(L) 38.9 - 50.3 % [facility] Total Hb, POC 11.2(L) 13.0 - 17.5 g/dL [facility] Blood 03/18/2024 3:35 PM CRYSTAL GAZER 03/18/2024 3:35 PM CRYSTAL GAZER us Basil Adhikari MD LAB POCT ORDERABLES - DE VICE Final Result [facility] [address] Department [place] [address] * (ABNORMAL) POC Blood Gas and Chemistries, Arterial - (03/18/2024 2:41 PM CRYSTAL GAZER) pH, Art POC 7.33(L) 7.35 - 7.45 pCO2, Art POC 45 35 - 45 mmHg [facility] pO2, Art POC 345(H) 80 - 108 mmHg [facility] Na, POC 129(L) 135 - 145 mmol/L [facility] K POC 5.3(H) 3.3 - 4.9 mmol/L [facility] Comment: Interpretive Data This method is not able to assess for hemolysis, which may falsely increase potassium concentrations. If further testing is needed to evaluate this result, consider in-laboratory plasma potassium. Current Interpretive Data was last revised on 2021. Cl, POC 102 97 - 110 mmol/L [facility] Ionized Ca, POC 4.66 4.50 - 5.10 mg/dL [facility] Glucose, POC 153 70 - 199 mg/dL [facility] Lactate, POC 0.8 0.0 - 2.0 mmol/L [facility] O2Hb, Art POC 96.6(H) 90.0 - 95.0 % [facility] Carboxhgb fract 1.2 0.0 - 2.9 % [facility] Methemoglobin 1.4 0.0 - 1.9 % [facility] HHb, POC 0.8 0.0 - 5.0 % [facility] SO2 (shayne) arterial 99(H) 90 - 95 % [facility] BE, art, POC -2.3(L) -2.0 - 2.0 mmol/L [facility] HCO3, Art POC 23 20 - 30 mmol/L [facility] Hct, POC 32.0(L) 38.9 - 50.3 % [facility] Total Hb, POC 10.7(L) 13.0 - 17.5 g/dL [facility] Blood 03/18/2024 2:41 PM CRYSTAL GAZER 03/18/2024 2:41 PM CRYSTAL GAZER Basil Adhikari MD LAB POCT ORDERABLES - DE VICE Final Result Performing Organization Address [facility]/ZIP Co de Phone Number [facility] [address] Department [place] [address] * (ABNORMAL) POC Activated Clotting Time, High Range (03/18/2024 2:40 PM CRYSTAL GAZER) Pathologist [facility] ACT 474(H) 87 - 138 sec Blood 03/18/2024 2:40 PM CRYSTAL GAZER 03/18/2024 2:40 PM CRYSTAL GAZER Basil Adhikari MD LAB BLOOD ORDERABLES Fin al Result Performing Organization Address [facility]/ZIP Co de Phone Number [facility] [address] Department [place] [address] * (ABNORMAL) POC Blood Gas and Chemistries, Venous - (03/18/2024 2:30 PM CRYSTAL GAZER) Pathologist [facility] pH, Boyd POC 7.34 7.32 - 7.45 pCO2, boyd POC 47 40 - 50 mmHg [facility] pO2, boyd POC 52(H) 35 - 42 mmHg [facility] Na, POC 131(L) 135 - 145 mmol/L [facility] K POC 5.0(H) 3.3 - 4.9 mmol/L [facility] Comment: Interpretive Data This method is not able to assess for hemolysis, which may falsely increase potassium concentrations. If further testing is needed to evaluate this result, consider in-laboratory plasma potassium. Current Interpretive Data was last revised on 2021. Cl, POC 101 97 - 110 mmol/L [facility] Ionized Ca, POC 4.65 4.50 - 5.10 mg/dL [facility] Glucose, POC 130 70 - 199 mg/dL [facility] Lactate, POC 0.6 0.0 - 2.0 mmol/L [facility] O2Hb, Boyd POC 81.4(L) 90.0 - 95.0 % [facility] Carboxhgb fract 1.5 0.0 - 2.9 % [facility] Methemoglobin 1.1 0.0 - 1.9 % [facility] HHb, POC 16.0(H) 0.0 - 5.0 % [facility] O2 Sat, Boyd POC (Shayne) 84(H) 68 - 77 % [facility] Base excess, boyd POC -0.7 mmol/L [facility] HCO3, Boyd POC 24 20 - 30 mmol/L [facility] Hct, POC 33.0(L) 38.9 - 50.3 % [facility] Total Hb, POC 11.0(L) 13.0 - 17.5 g/dL [facility] Blood 03/18/2024 2:30 PM CRYSTAL GAZER 03/18/2024 2:30 PM CRYSTAL GAZER us Basil Adhikari MD LAB POCT ORDERABLES - DE VICE Final Result [facility] [address] Department [place] [address] * Surgical pathology (03/18/2024 2:09 PM CRYSTAL GAZER) Tissue (Aorta) 03/18/2024 2: 09 PM CRYSTAL GAZER Comment:Placed in formalin a t end of case Narrative PATHOLOGY [facility] - 03/22/2024 11:52 AM CRYSTAL GAZER [place] [address] [place], [place] [address] Tele: Josie Cárdenas MD - Radio Interference Trouble Shooter Note to Patients: This report may contain [...] PATHOLOGY REPORT Patient Name: GIAN LEE Address: [address] [place] [address] Gender: M : 1940 (Age: 83) Service: Cardiothoracic Location: [place] [address], Hospital #: [id number] Patient [facility] Taken: 03/18/2024 Received 03/18/2024 Reported: 03/22/2024 Physician(s): Hallie Hernandez M.D. 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 Report [...] The vascular wall intact, and mildly hemorrhagic. Sand Tester sections are submitted as follows: A1 - Sand Tester sections, A2-A6 - Additional sections. [facility]/03/19/2024 14:38 DMS,JAP MICROSCOPIC DESCRIPTION: Microscopic examination supports [...] a non-neoplastic entity. Clerical Data Follows A; 01414, 19395, 17479(6) REPORT IMAGES AND/OR SCANNED DOCUMENTS ONLY VIEWABLE IN PDF FORMAT The immunohistochemical test(s) cited in this report, if any, was developed and its performance characteristics determined by [facility] Pathology Department. It has not been cleared or approved by the U.S. Food and Drug Administration. The FDA has determined that such clearance or approval is not necessary. This test is used for clinical purposes. It should not be regarded as investigational or for research. [facility] Laboratory is certified under the Clinical [...] part or completely in the following laboratories: [facility], [address] [place] [address], [address] [place] [id number]. us Basil Adhikari MD LAB PATHOLOGY ORDERABLES Final Result PATHOLOGY [facility] Laboratory Receiving [address] [place] [address] * (ABNORMAL) POC Activated Clotting Time, High Range (03/18/2024 2:08 PM CRYSTAL GAZER) ACT 627(H) 87 - 138 sec Blood 03/18/2024 2:08 PM CRYSTAL GAZER 03/18/2024 2:08 PM CRYSTAL GAZER us Basil Adhikari MD LAB BLOOD ORDERABLES Fin al Result [facility] [address] Department [place] [address] * (ABNORMAL) POC Blood Gas and Chemistries, Arterial - (03/18/2024 2:08 PM CRYSTAL GAZER) pH, Art POC 7.35 7.35 - 7.45 pCO2, Art POC 44 35 - 45 mmHg [facility] pO2, Art POC 417(H) 80 - 108 mmHg [facility] Na, POC 129(L) 135 - 145 mmol/L [facility] K POC 5.7(H) 3.3 - 4.9 mmol/L [facility] Comment: Interpretive Data This method is not able to assess for hemolysis, which may falsely increase potassium concentrations. If further testing is needed to evaluate this result, consider in-laboratory plasma potassium. Current Interpretive Data was last revised on 2021. Cl, POC 103 97 - 110 mmol/L [facility] Ionized Ca, POC 4.68 4.50 - 5.10 mg/dL [facility] Glucose, POC 122 70 - 199 mg/dL [facility] Lactate, POC 0.5 0.0 - 2.0 mmol/L [facility] O2Hb, Art POC 97.5(H) 90.0 - 95.0 % [facility] Carboxhgb fract 1.0 0.0 - 2.9 % [facility] Methemoglobin 0.8 0.0 - 1.9 % [facility] HHb, POC 0.7 0.0 - 5.0 % [facility] SO2 (shayne) arterial 99(H) 90 - 95 % [facility] BE, art, POC -1.4 -2.0 - 2.0 mmol/L [facility] HCO3, Art POC 24 20 - 30 mmol/L [facility] Hct, POC 33.0(L) 38.9 - 50.3 % [facility] Total Hb, POC 11.0(L) 13.0 - 17.5 g/dL [facility] Blood 03/18/2024 2:08 PM CRYSTAL GAZER 03/18/2024 2:08 PM CRYSTAL GAZER us Basil Adhikari MD LAB POCT ORDERABLES - DE VICE Final Result [facility] [address] Department [place] [address] * (ABNORMAL) POC Blood Gas and Chemistries, Arterial - (03/18/2024 1:50 PM CRYSTAL GAZER) pH, Art POC 7.39 7.35 - 7.45 pCO2, Art POC 38 35 - 45 mmHg [facility] pO2, Art POC 426(H) 80 - 108 mmHg [facility] Na, POC 128(L) 135 - 145 mmol/L [facility] K POC 4.4 3.3 - 4.9 mmol/L [facility] Comment: Interpretive Data This method is not able to assess for hemolysis, which may falsely increase potassium concentrations. If further testing is needed to evaluate this result, consider in-laboratory plasma potassium. Current Interpretive Data was last revised on 2021. Cl, POC 101 97 - 110 mmol/L [facility] Ionized Ca, POC 4.82 4.50 - 5.10 mg/dL [facility] Glucose, POC 113 70 - 199 mg/dL [facility] Lactate, POC 0.5 0.0 - 2.0 mmol/L [facility] O2Hb, Art POC 97.1(H) 90.0 - 95.0 % [facility] Carboxhgb fract 1.4 0.0 - 2.9 % [facility] Methemoglobin 1.2 0.0 - 1.9 % [facility] HHb, POC 0.3 0.0 - 5.0 % [facility] SO2 (shayne) arterial 100(H) 90 - 95 % [facility] BE, art, POC -1.7 -2.0 - 2.0 mmol/L [facility] HCO3, Art POC 24 20 - 30 mmol/L [facility] Hct, POC 39.0 38.9 - 50.3 % [facility] Total Hb, POC 12.9(L) 13.0 - 17.5 g/dL [facility] Blood 03/18/2024 1:50 PM CRYSTAL GAZER 03/18/2024 1:50 PM CRYSTAL GAZER Basil Adhikari MD LAB POCT ORDERABLES - DE VICE Final Result Performing Organization Address [facility] Co de Phone Number [facility] [address] Department of [employer] [place], [place] [id number] * (ABNORMAL) POC Activated Clotting Time, High Range (03/18/2024 1:49 PM CRYSTAL GAZER) ACT 608(H) 87 - 138 sec Blood 03/18/2024 1:49 PM CRYSTAL GAZER 03/18/2024 1:49 PM CRYSTAL GAZER Basil Adhikari MD LAB BLOOD ORDERABLES Fin al Result Performing Organization Address [facility] Co de Phone Number [facility] [address] [place] [address] * BW AN SHEATH INTRODUCER PERFORMABLE, PULMONARY ARTERY CATH, AR AN PROCEDURE PLACEHOLDER (:41 PM CRYSTAL GAZER) Narrative Gamal Asher MD PhD - 03/18/2024 1:41 PM CRYSTAL GAZER Gamal Asher MD PhD 03/18/2024 1:41 PM [...] PhD ANESTHESIA ORDERABLES Fi nal Result * AR AN CENTRAL LINE QUADRUPLE LUMEN, AR AN PROCEDURE PLACEHOLDER (03/18/2024 1:40 PM CRYSTAL GAZER) Gamla Robbins MD PhD - 03/18/2024 1:40 PM CRYSTAL GAZER Gamal Asher MD PhD 03/18/2024 1:41 PM [...] PhD ANESTHESIA ORDERABLES Fi nal Result * AR AN PROCEDURE PLACEHOLDER (03/18/2024 1:39 PM CRYSTAL GAZER) Narrative Gamal Asher MD PhD - 03/18/2024 1:39 PM CRYSTAL GAZER Gamal Asher MD PhD 03/18/2024 1:39 PM [...] PhD ANESTHESIA ORDERABLES Fi nal Result * AR AN PROCEDURE PLACEHOLDER (03/18/2024 1:38 PM CRYSTAL GAZER) Gamal Robbins MD PhD - 03/18/2024 1:38 PM CRYSTAL GAZER Gamal Ahser MD PhD 03/18/2024 1:38 PM Arterial Line [...] PhD ANESTHESIA ORDERABLES Fi nal Result * AR AN ELECTIVE ENDOTRACHEAL AIRWAY, AR AN PROCEDURE PLACEHOLDER (03/18/2024 1:37 PM CRYSTAL GAZER) Gamal Robbins MD PhD - 03/18/2024 1:37 PM CRYSTAL GAZER Gamal Asher MD PhD 03/18/2024 1:37 PM [...] PhD ANESTHESIA ORDERABLES Fi nal Result * AR AN PROCEDURE PLACEHOLDER (03/18/2024 1:29 PM CRYSTAL GAZER) Anatomical Region Laterality Modality Other Narrative 03/18/2024 1:29 PM CRYSTAL GAZER Derek Marin MD PhD 03/18/2024 4:18 PM [...] code: LIDIA placement and diagnostic exam, non-congenital (33531) ICD code(s) for medical necessity: I71.2 - [...] inferior: normal 16- Apical septal: normal 17- [place]: normal Valves: Aortic Valve: Annulus: dilated Leaflet [...] Clotting Time, High Range (03/18/2024 1:11 PM CRYSTAL GAZER) ACT 111 87 - 138 sec Blood 03/18/2024 1:11 PM CRYSTAL GAZER 03/18/2024 1:11 PM CRYSTAL GAZER us Basil Adhikari MD LAB BLOOD ORDERABLES [facility] al Result [facility] [address] Department [place] [address] * LIDIA Add-On For OR (03/18/2024 12:05 PM CRYSTAL GAZER) BSA 1.88 m2 CONS SCIMAGE Narrative CONS SCIMAGE - 03/18/2024 12:05 PM CRYSTAL GAZER Procedure Auto Finalized by Rule: BW CV LIDIA DURING CASE OR Please see the Anesthesiologist's Procedure Note for the results. us Gamal Asher MD PhD CV ECHO PROCEDURES Final Result CONS SCIMAGE * Check Sample (03/18/2024 9:54 AM CRYSTAL GAZER) ABO Rh O Positive MBC HCLL OTHER 03/18/2024 9:54 AM CRYSTAL GAZER 03/18/2024 10:20 AM CRYSTAL GAZER us Basil Adhikari MD LAB BLOOD ORDERABLES Fin al Result [facility] [address] Department [place] [address] [facility] * ECG 12 lead (03/18/2024 9:34 AM CRYSTAL GAZER) 03/18/2024 9:34 AM CRYSTAL GAZER Narrative [facility] - 03/18/2024 10:15 AM CRYSTAL GAZER Vent Rate: 46 bpm RR Interval: 1277 msec AR Interval: 115 msec QRS Duration: 84 msec QT Interval: 430 msec QTC Interval: 391 msec P-R-T [place]: 56 - -19 - -14 degrees IMPRESSION: SINUS BRADYCARDIA WITH SINUS ARRHYTHMIA WITH SHORT AR INTERVAL POSSIBLE ANTERIOR MYOCARDIAL INFARCTION , PROBABLY OLD BORDERLINE ECG Electronically Signed By: Klaus Humphrey MD PhD us Ev Freed NP ECG ORDERABLES Final Res ult Performing Organization Address City/[facility]/ZIP Co de Phone Number [facility] [employer] [facility] * Prepare RBC: 4 Units (03/18/2024 9:12 AM CRYSTAL GAZER) Product code [id number] [facility] Unit Number [id number] 8-8 [facility] Product Blood Type OPOS [facility] Dispense Status RETURNED [facility] Product code [id number] Unit Number [id number] 8-R [facility] Product Blood Type OPOS [facility] Dispense Status RETURNED [facility] Product code [id number] [facility] Unit Number [id number] 7-W [facility] Product Blood Type OPOS [facility] Dispense Status RETURNED [facility] Product code [id number] [facility] Unit Number [id number] 0-U [facility] Product Blood Type OPOS [facility] Dispense Status RETURNED [facility] Blood 03/18/2024 9:12 AM CRYSTAL GAZER Narrative [facility] - 03/22/2024 7:46 AM CRYSTAL GAZER Specify Procedure:->tissue aortic root replacement Are special requirements needed? (All products are leukoreduced and CMV- safe)- >No Date required:-[id number] LRRBC # of [id number] Reasons:-Hold for procedure (specify procedure)} Ev Freed NP BLOOD BANK PRODUCT ORDERA BLES Final Result [facility] [address] Department of Laboratories [place], [place] [id number] * Differential, auto (03/15/2024 12:29 PM CRYSTAL GAZER) Neutrophil abs 2.5 1.5 - 6.5 K/cumm Imm gran abs 0.0 0.0 - 0.1 K/cumm [facility] Lymphocyte abs 1.1 0.8 - 3.3 K/cumm [facility] Monocyte abs 0.6 0.2 - 0.8 K/cumm [facility] Eosinophil abs 0.2 0.0 - 0.5 K/cumm [facility] Basophil abs 0.0 0.0 - 0.1 K/cumm [facility] Neutrophil pct 56.5 % [facility] Comment: Interpretive Data Percent cell count reference ranges are not reported, since discordance with absolute values may lead to misinterpretation of CBC data. Current Interpretive Data was last revised on 2017. Imm gran pct 0.5 % [facility] Comment: Interpretive Data Percent cell count reference ranges are not reported, since discordance with absolute values may lead to misinterpretation of CBC data. Current Interpretive Data was last revised on 2017. Lymphocyte pct 23.8 % [facility] Comment: Interpretive Data Percent cell count reference ranges are not reported, since discordance with absolute values may lead to misinterpretation of CBC data. Current Interpretive Data was last revised on 2017. Monocyte pct 14.5 % [facility] Comment: Interpretive Data Percent cell count reference ranges are not reported, since discordance with absolute values may lead to misinterpretation of CBC data. Current Interpretive Data was last revised on 2017. Eosinophil pct 3.8 % [facility] Comment: Interpretive Data Percent cell count reference ranges are not reported, since discordance with absolute values may lead to misinterpretation of CBC data. Current Interpretive Data was last revised on 2017. Basophil pct 0.9 % [facility] Comment: Interpretive Data Percent cell count reference ranges are not reported, since discordance with absolute values may lead to misinterpretation of CBC data. Current Interpretive Data was last revised on 2017. Blood 03/15/2024 12:2 9 PM CRYSTAL GAZER 03/15/2024 12:29 PM CRYSTAL GAZER us Basil Adhikari MD LAB BLOOD ORDERABLES Fin al Result [facility] [address] Department [place] [address] * CBC with auto differential (03/15/2024 12:29 PM CRYSTAL GAZER) WBC 4.4 3.8 - 9.9 K/cumm Hgb 14.5 13.0 - 17.5 g/dL [facility] Hct 42.9 38.9 - 50.3 % [facility] Plt 156 150 - 400 K/cumm [facility] MPV 9.9 9.1 - 12.3 fL [facility] RBC 4.82 4.30 - 5.80 M/cumm [facility] MCV 89.0 81.3 - 96.4 fL [facility] MCH 30.1 27.1 - 33.3 pg [facility] MCHC 33.8 32.3 - 35.7 g/dL [facility] RDW CV 12.4 11.1 - 14.9 % [facility] RDW SD 40.8 35.7 - 48.1 fL [facility] NRBC abs 0.00 0.00 - 0.01 K/cumm [facility] Blood 03/15/2024 12:2 9 PM CRYSTAL GAZER 03/15/2024 12:29 PM CRYSTAL GAZER Basil Adhikari MD LAB BLOOD ORDERABLES Fin al Result Performing Organization Address [facility] Co de Phone Number [facility] [address] [facility] [place] [address] * Type and screen (03/15/2024 12:29 PM CRYSTAL GAZER) [facility] Alex, indirect Negative ABO Rh O Positive [facility] Blood 03/15/2024 12:2 9 PM CRYSTAL GAZER 03/15/2024 12:45 PM CRYSTAL GAZER Narrative [facility] - 03/15/2024 1:31 PM CRYSTAL GAZER No blood transfusions last 90 days Surgery 03/18/24 No blood transfusions last 90 days Surgery 03/18/24 Has the patient had Daratumumab or Isatuximab in the past 6 months?->No Result [facility] Basil Adhikari MD LAB BLOOD BANK TEST ORDE RABLES Final Result Performing Organization Address [facility] de Phone Number [facility] [address] [facility] [place] [address] * Hemoglobin A1c (03/15/2024 12:29 PM CRYSTAL GAZER) [facility] Hgb A1C 5.2 4.0 - 5.6 % Estimated Average Glucose 103 mg/dL [facility] Comment: The ADA recommends reporting an estimated Average Glucose (eAG) with all Hemoglobin A1c results using the equation derived from a study of 507 normal and diabetic adults. Minority populations were underrepresented and children were not included. (Diabetes Care 31:5328-6621, 2008). The eAG is not equivalent to a fasting glucose. Blood 03/15/2024 12:2 9 PM CRYSTAL GAZER 03/15/2024 12:29 PM CRYSTAL GAZER Basil Adhikari MD LAB BLOOD ORDERABLES Fin al Result Performing Organization Address [facility] Co de Phone Number [facility] [address] Department [place] [address] * eGFR (03/15/2024 12:28 PM CRYSTAL GAZER) [facility] eGFR 65 >=60 mL/min/1. 73 [...] reviewed 2021. Blood 03/15/2024 12:2 8 PM CRYSTAL GAZER 03/15/2024 12:28 PM CRYSTAL GAZER us Basil Adhikari MD LAB BLOOD ORDERABLES Fin al Result [facility] [address] Department [place] [address] * (ABNORMAL) Comprehensive metabolic panel (03/15/2024 12:28 PM CRYSTAL GAZER) [facility] Sodium 134(L) 135 - 145 mmol/L Potassium, pl 4.7 3.3 - 4.9 mmol/L [facility] Chloride 98 97 - 110 mmol/L [facility] CO2 25 22 - 32 mmol/L [facility] Anion gap 11 2 - 15 mmol/L [facility] BUN 12 6 - 25 mg/dL [facility] Creatinine 1.11 0.80 - 1.30 mg/dL [facility] Glucose 82 70 - 199 mg/dL [facility] Comment: Interpretive Data Fasting glucose >/= [...] 2022. Calcium 9.3 8.5 - 10.3 mg/dL [facility] Bilirubin, total 0.8 0.1 - 1.2 mg/dL [facility] Protein, pl 6.8 6.5 - 8.5 g/dL [facility] Albumin 4.5 3.5 - 5.0 g/dL [facility] Alk phos 82 40 - 130 Units/L [facility] ALT 26 7 - 55 Units/L [facility] AST 39 10 - 50 Units/L [facility] Blood 03/15/2024 12:2 8 PM CRYSTAL GAZER 03/15/2024 12:28 PM CRYSTAL GAZER us Basil Adhikari MD LAB BLOOD ORDERABLES Fin al Result [facility] [address] Department [place] [address] * EMG/NCV - (02/05/2024 11:10 AM CRYSTAL GAZER) Anatomical Region Laterality Modality EMG, EMG Impressions 02/05/2024 11:10 AM CRYSTAL GAZER History: This is 83 years old male [...] esult from Last 3 Months Insurance [facility] [employer] MEDICARE [facility] Advance Directives For more information, please contact: [phone] * Full Code (Latest Code Status on [...] 8:19 AM 09/09/2019 6:53 PM Care Teams Yard Inspector Relationship Specialty Start Date End Date Martinez Pace MD [address] [place] [address] PCP - General 05/02/16 Dion Abraham MD [address] [place] [address] Referring Physician Cardiology 02/18/24 Basil Adhikari MD [address] [facility] [address] [place] [address] Consulting Physician Cardiothoracic Surgery 02/19/24
--- OUTSIDE RECORDS SUMMARY | 2024-05-05 09:32 | XMS_ITS | Clinical Summary ---
Author Organization [facility] Address [address] [place] [address] Care Team Providers Care Professor Of French Name Role Phone Unavailable Primary Care Provider Unavailabl e Social History Tobacco Use Types Packs/Day Years Used Date Smoking Tobacco: Never Assessed Sex and Gender Information Value Date Recorded Sex Assigned at Not on file Legal Sex Male 1:50 PM [employer] Gender Identity Not on file Sexual Orientation [...]
--- OUTSIDE RECORDS SUMMARY | 2024-05-05 09:32 | XMS_ITS | Clinical Summary ---
Author Organization [facility] Address [address] [place]: Epic Prelude ADT [place] [id number] Care Team Providers Care Account Development Associate Name Role Phone Unavailable Primary Care Provider Unavailabl e Allergies Active Allergy Reactions Criticality Noted Date Comments Sulfa (Sulfonamide Antibiotics) Rash High 03/2023 Medications levothyroxine 75 mcg tablet Take 1 Tablet (75 mcg) by mouth daily. 90 Tablet 2 08/14/19 22 Active levothyroxine 75 mcg tablet Take 1 Tablet (75 mcg) by mouth daily. 90 Tablet 2 08/15/19 22 Active mirtazapine (REMERON) 15 mg tablet Take 1 and 1/2 tablet by mouth at bedtime. 45 Tablet 5 3 4:17 PM CDT 10/11/19 22 Active Sodium Fluoride (PreviDent 5000 Booster Plus) 1.1 % Paste Use a pea-sized amount once daily. [place] for 2 minutes, spit excess. No rinsing, eating, or drinking for 30 minutes after. 100 mL 2 2:52 PM CDT 11/14/19 22 Active latanoprost (XALATAN) 0.005 % solution Instill 1 drop in both eyes every night at bedtime 2.5 mL 11 3 4:50 PM CDT 12/12/19 22 Active predniSONE (DELTASONE) 10 mg tablet Take 1 tablet by mouth three times daily for 3 days, then 1 tablet by mouth twice daily for 2 days, then 1 tablet daily for 1 day. 14 Tablet 1 2 5:00 PM CABLE INSTALLER REPAIRER 01/25/20 22 Active Sodium Fluoride (PreviDent 5000 Booster Plus) 1.1 % Paste USE A PEA SIZE AMOUNT TO BRUSH FOR 2 MINUTES THEN SPIT IT OUT. NO EATING, DRINKING OR RINSING FOR 30 MINUTES AFTER BRUSHING. 100 mL 2 1:28 PM CABLE INSTALLER REPAIRER 02/15/20 22 Active benzonatate (TESSALON) 100 mg capsule Take 1 Capsule (100 mg) by mouth 3 times daily as needed for cough 30 Capsule 02/28/20 22 Active molnupiravir (Lagevrio, EUA,) 200 mg capsule Take 4 Capsules (800 mg) by mouth every 12 hours for 5 days 40 Capsule 02/28/20 22 Active mirtazapine (REMERON) 15 mg tablet Take 1 and 1/2 tablets by mouth at bedtime 45 Tablet 3 2:27 PM CABLE INSTALLER REPAIRER 03/31/19 23 Active mirtazapine (REMERON) 15 mg tablet Take 1.5 Tablets (22.5 mg) by mouth daily at bedtime. 45 Tablet 4 3 4:01 PM CDT 04/26/19 23 Active rosuvastatin (Crestor) 10 mg tablet Take 1 Tablet (10 mg) by mouth daily. 90 Tablet 3 4 5:07 PM CABLE INSTALLER REPAIRER 07/11/19 23 Active cyanocobalamin , vitamin B-12, 1,000 mcg Capsule Take 1 capsule by mouth once a day 100 Capsule 3 07/11/19 23 Active mirtazapine (REMERON) 15 mg tablet Take 1.5 Tablets (22.5 mg) by mouth daily at bedtime. 45 Tablet 11/09/19 23 Active mirtazapine (REMERON) 15 mg tablet Take 1 and 1/2 tablets by mouth at bedtime 45 Tablet 5 4 11:21 AM CABLE INSTALLER REPAIRER 12/11/19 23 Active Sodium Fluoride (PreviDent 5000 Booster Plus) 1.1 % Paste [place] with pea-sized amount once daily. [place] for 2 minutes and spit out excess. No eating, drinking, or rinsing for 30 minutes after. 100 mL 3 10:15 AM CDT 12/31/19 23 Active venlafaxine (EFFEXOR XR) 75 mg Extended Release 24 hour capsule Take 1 Capsule (75 mg) by mouth daily. 30 Capsule 04/02/19 24 Active benzonatate (TESSALON) 100 mg capsule Take 1 Capsule (100 mg) by mouth 3 times daily as needed for congestion. 30 Capsule 4 12:26 PM CABLE INSTALLER REPAIRER 05/07/19 24 Active levothyroxine 75 mcg tablet Take 1 Tablet (75 mcg) by mouth daily. 90 Tablet 3 4 1:18 PM CABLE INSTALLER REPAIRER 05/15/19 24 Active sodium bicarbonate 650 mg tablet Take 1 tablet by mouth twice a day 60 Tablet 4 2:28 PM CABLE INSTALLER REPAIRER 05/21/19 24 Active busPIRone (BUSPAR) 5 mg tablet Take 1 Tablet (5 mg) by mouth 2 times daily. 60 Tablet 4 2:06 PM CDT 06/09/19 24 Active mirtazapine (REMERON) 15 mg tablet Take 1.5 tablets by mouth daily at bedtime 135 Tablet 4 7:49 PM CDT 06/10/19 24 Active Sodium Fluoride (PreviDent 5000 Booster Plus) 1.1 % Paste FOLLOW PACKAGE INSTRUCTIONS 100 mL 1 4 4:19 PM CDT 07/23/19 24 025 Active cyanocobalamin 1,000 mcg Tablet Take 1 Tablet (1,000 mcg) by mouth daily. 100 Tablet 3 4 1:18 PM CABLE INSTALLER REPAIRER 07/25/19 24 Active tamsulosin (FLOMAX) 0.4 mg capsule Take 1 Capsule (0.4 mg) by mouth daily. 30 Capsule 2 4 4:25 PM CDT 09/02/19 24 Active phenazopyridin e 200 mg tablet Take 1 Tablet (200 mg) by mouth 3 times daily as needed for pain for 7 days. 21 Tablet 4 2:33 PM CDT 10/11/19 24 Active trospium (SANCTURA) 20 mg Tablet Take 1 Tablet (20 mg) by mouth daily at bedtime. 30 Tablet 5 4 4:49 PM CABLE INSTALLER REPAIRER 10/14/19 24 Active peg 3350-electroly kajal (GOLYTELY) 236-22.74-6.74 -5.86 gram Recon Soln Take 4,000 mL by mouth once for 1 dose. Follow directions given to you by prescriber. 4000 mL 4 3:01 PM CDT 11/03/19 24 Active latanoprost (XALATAN) 0.005 % solution Administer 1 drop in both eyes daily at bedtime. 2.5 mL 11 4 11:59 AM CDT 11/14/19 24 Active traMADoL (ULTRAM) 50 mg tablet Take 1 Tablet (50 mg) by mouth 2 times daily as needed FOR PAIN. 14 Tablet 4 10:33 AM CDT 11/18/19 24 Active tamsulosin (FLOMAX) 0.4 mg capsule Take 2 Capsules (0.8 mg) by mouth daily at bedtime. 60 Capsule 1 12/01/19 24 Active vibegron 75 mg Tablet Take 1 Tablet by mouth daily. 30 Tablet 3 4 2:05 PM CABLE INSTALLER REPAIRER 12/09/19 24 Active sacubitriL-quinn sartan (Entresto) 24-26 mg Tablet TAKE 1 TABLET BY MOUTH TWICE A DAY 180 Tablet 3 4 4:49 PM CABLE INSTALLER REPAIRER 01/14/20 24 Active Sodium Fluoride 1.1 % Paste Apply to the teeth daily at nightime or as directed 100 mL 1 4 3:07 PM CABLE INSTALLER REPAIRER 02/03/20 24 Active rosuvastatin (CRESTOR) 10 mg tablet Take 1 Tablet (10 mg) by mouth daily. 90 Tablet 2 02/06/20 24 Active tadalafiL (CIALIS) 20 mg tablet Take 1 tablet by mouth as needed 30 minutes before sexual activity. Do not use more than 1 dose in 24 hours. 10 Tablet 3 4 2:35 PM CABLE INSTALLER REPAIRER 02/18/20 24 Active rivaroxaban (Xarelto) 10 mg Tablet Take 1 Tablet (10 mg) by mouth daily. 30 Tablet 4 2:05 PM CABLE INSTALLER REPAIRER 03/04/20 24 Active busPIRone (BUSPAR) 5 mg tablet Take 1 Tablet (5 mg) by mouth 2 times daily. 180 Tablet 1 03/08/20 24 Active mirtazapine (REMERON) 15 mg tablet Take 1.5 Tablets (22.5 mg) by mouth daily at bedtime. 135 Tablet 1 5 2:57 PM CABLE INSTALLER REPAIRER 03/08/20 24 Active amiodarone (CORDARONE) 100 mg Tablet Take 1 Tablet (100 mg) by mouth daily. 30 Tablet 1 5 2:11 PM CABLE INSTALLER REPAIRER 04/20/19 25 Active apixaban (Eliquis) 5 mg tablet Administer 1 tablet (5 mg total) per feeding tube every 12 (twelve) hours 60 Tablet 5 2:11 PM CABLE INSTALLER REPAIRER 04/20/19 25 Active levothyroxine 88 mcg tablet Take 1 tablet (88 mcg total) by mouth in the mail handler sorter before breakfast 30 Tablet 5 2:11 PM CABLE INSTALLER REPAIRER 04/20/19 25 Active midodrine (PROAMATINE) 5 mg tablet Take 1 tablet (5 mg total) by mouth 3 (three) times a day before meals 90 Tablet 5 2:11 PM CABLE INSTALLER REPAIRER 04/20/19 25 Active rosuvastatin (CRESTOR) 20 mg tablet Take 1 Tablet (20 mg) by mouth daily. 30 Tablet 5 2:11 PM CABLE INSTALLER REPAIRER 04/20/19 25 Active Sodium Chloride 1,000 mg Tablet, Soluble Take 1 tablet (1 g total) by mouth 2 (two) times a day 60 Tablet 5 2:11 PM CABLE INSTALLER REPAIRER 04/20/19 25 Active amiodarone (CORDARONE) 200 mg tablet Give 1/2 tablet via feeding tube daily 30 Tablet 04/29/19 25 Active aspirin (THADDEUS CHEWABLE) 81 mg Tablet, Chewable Give 1 tablet via feeding tube daily 30 Tablet 04/29/19 25 Active busPIRone (BUSPAR) 10 mg tablet Give 1/2 tablet (5 mg) via feeding tube twice daily 60 Tablet 5 2:11 PM CABLE INSTALLER REPAIRER 04/29/19 25 Active Sodium Chloride 1,000 mg Tablet, Soluble Give 1 tablet via feeding tube twice daily 60 Tablet 04/29/19 25 Active rosuvastatin (CRESTOR) 10 mg tablet Give 2 tablets via feeding tube every morning 30 Tablet 04/29/19 25 Active midodrine (PROAMATINE) 5 mg tablet Give 1 tablet via feeding tube three times daily before meals 90 Tablet 04/29/19 25 Active cyanocobalamin 1,000 mcg Tablet Give 1 tablet via feeding tube daily 30 Tablet 04/29/19 25 Active apixaban (Eliquis) 5 mg tablet Give 5 mg via feeding tube every 12 hours 60 Tablet 04/29/19 25 Active levothyroxine 88 mcg tablet Give 1 Tablet (88 mcg) via feeding tube daily at 0500 30 Tablet 04/29/19 25 Active metoclopramide HCl (REGLAN) 10 mg tablet Give 1/2 tablet (5 mg) via feeding tube every 6 hours 60 Tablet 5 2:11 PM CABLE INSTALLER REPAIRER 04/29/19 25 Active oxyBUTYnin (DITROPAN) 5 mg tablet Give 1 tablet via feeding tube daily 30 Tablet 5 2:11 PM CABLE INSTALLER REPAIRER 04/29/19 25 Active mirtazapine (REMERON) 15 mg tablet Give 1.5 tablets via feeding tube bedtime 30 Tablet 04/29/19 25 Active levothyroxine 88 mcg tablet Take 1 Tablet (88 mcg) via feeding tube daily at 5:00. 30 Tablet 5 05/03/19 25 Active gabapentin (NEURONTIN) 100 mg capsule Give 1 capsule via feeding tube daily 30 Capsule 04/29/19 25 025 Discontinued Immunizations Immunization Administration Dates Next Due (COMIRNATY)(12 YR UP) COVID- 19 VACCINE, MRNA, SPIKE PROTEIN, LNP, OFELIA(PF) 30 MCG/0.3 ML IM SUSP 12/01/2023 (PREVNAR 20)(6 WKS UP) PNEUM OCOCCAL CONJUGATE VACCINE 20-VALENT (PCV20), POLYSACCHARIDE [id number] CONJUGATE, ADJUVANT 0.5 ML (PF) IM 12/01/2023 [...] 12/25/2021 Insurance RX [facility] [employer] [facility] [employer], [employer]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
--- OUTSIDE RECORDS SUMMARY | 2024-05-05 09:32 | XMS_ITS ---
Author Organization [facility] As Simfinit Address [address] [facility] [address] [place] [address] Care Team Providers Care Coal Miner Name Role Phone Carli Figueroa Unavailable [phone] Allergies No Known Allergies REASON FOR VISIT follow up depression, anxiety, insomnia Medications Medication SIG (Take, Route, Frequency, Duration) Notes Start Date End Date Status Benzonatate 100 MG Oral for 10 Days Active Tadalafil 20 MG TAKE 1 TABLET BY EDDIE ONCE DAILY NEEDED FOR SEXUAL ACTIVITY. ADMINISTER APPROXIMATELY 30 MINUTES BEFORE SEXUAL ACTIVITY. DO NOT USE MORE THAN 1 DOSE PER 24 HOURS. Oral for 10 Days Active Rosuvastatin Calcium 10 MG Oral for 90 Days Active busPIRone HCl 5 MG 1 tablet Oral Twice a day for 90 days Active Mirtazapine 15 MG Take 1.5 Tablets (22 .5 mg) by mouth daily at bedtime. Activ e PreviDent 5000 Booster Plus 1.1 % Dental for 30 Days Active Levothyroxine Sodium 75 MCG Oral for 90 Days Active Tamsulosin HCl 0.4 MG Oral for 30 Days Active Xarelto 10 MG Oral for 90 Days Active Gemtesa 75 MG 1 tablet Orally Once a day Active Mirtazapine 15 MG 1.5 tabs at bedtime Oral daily for 90 days Active busPIRone HCl 5 MG 1 tablet Oral Twice a day for 90 days Active Entresto 24-26 MG 1 tablet Orally Twic e a day Active Social History Tobacco Use: Social History Observation Description Date Details (start date - stop date) Former Smoker NA - NA Sex Assigned At : Social History Observation Description Sex Assigned At Male Tobacco Control (Standard) Question Answer Notes Tobacco use: Former smoker Section Notes: Social History Substance UseDo you or have you ever smoked tobacco?: Former smokerHow much tobacco do you smoke?: NoneDo you or have you ever used e-cigarettes or vape?: Never used electronic cigarettesWhat was the date of your most recent tobacco screening?: 06/10/2023What is your level of alcohol consumption?: ModerateHow many years have you consumed alcohol?: 70Do you use any illicit or recreational drugs?: NoWhich illicit or recreational drugs have you used?: NoneHave you used IV drugs?: NoWhat is your level of caffeine consumption?: ModerateEducation and OccupationWhat is the highest grade or level of school you have completed or the highest degree you have received?: Master's degree (e.g., MA, MS, Ashley, MEd, MORTGAGE [employer], NICK)Are you currently employed?: NoWho is your employer?: [employer].Marriage and SexualityWhat is your relationship status?: WidowedAre you sexually active?: YesDo you use protection during sex?: NoHow many children do you have?: 1 (Notes: note: has 1 living daughter, and 1son that 1995)Home and EnvironmentAre there any guns present in your home?: NoAdvance DirectiveDo you have an advance directive?: NoDo you have a medical power of estate attorney?: No Problems Problem Type SNOMED Code ICD Code Onset Dates Problem Status W/U Status Risk Notes Problem Recurrent major depression (48675514) Depression, major, recurrent, 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) Active confirmed Vital Signs Blood pressure systolic 120 mm Hg 03/08/20 24 Blood pressure diastolic 70 mm Hg 024 Heart Rate 55 /min 03/08/2024 Height 68.00 in 03/08/2024 Weight 165.0 lbs 03/08/2024 BMI 25.09 kg/m2 03/08/2024 Height-cm 172.72 cm 03/08/2024 Weight-kg 74.84 kg 03/08/2024 Encounters Encounter Location Date [facility] [address] [address] 03/08/2024 Carli Figueroa Depression, major, recurrent, in remission F33.40 ; Anxiety disorder, unspecified F41.9 and Chronic insomnia F51.04 Assessments Encounter Date Diagnosis (ICD Code) Assessment Notes Treatment Notes Treatment Clinical Notes Section Notes 03/08/2024 Depression, major, recurrent, in remission (ICD-10 - F33.40) Doing well, no concerns. denies depression, denies anxiety. Sleep good, improved since starting new medication for prostate: not waking up to use bathroom, sleeping more soundly No changes warranted, would like to continue with them as is. - Cont mirtazapine 22.5 mg qhs - continue buspirone 5 mg bid follow up 5 months, sooner if concerns arise 03/08/2024 Anxiety disorder, unspecified (ICD-10 - F41.9) Doing well, no concerns. denies depression, denies anxiety. Sleep good, improved since starting new medication for prostate: not waking up to use bathroom, sleeping more soundly No changes warranted, would like to continue with them as is. - Cont mirtazapine 22.5 mg qhs - continue buspirone 5 mg bid follow up 5 months, sooner if concerns arise 03/08/2024 Chronic insomnia (ICD-10 - F51.04) Doing well, no concerns. denies depression, denies anxiety. Sleep good, improved since starting new medication for prostate: not waking up to use bathroom, sleeping more soundly No changes warranted, would like to continue with them as is. - Cont mirtazapine 22.5 mg qhs - continue buspirone 5 mg bid follow up 5 months, sooner if concerns arise Plan Of Treatment Medication Medication Name Sig Start Date Stop Date Notes Mirtazapine 15 MG 1.5 tabs at bedtime Oral daily for 90 days busPIRone HCl 5 MG 1 tablet Oral Twice a day for 90 days Next Appt Details Follow Up: 5 Months, Reason: Provider Name:Carli rivas, 08/06/2024 01:00:00 PM, [address] [facility], [facility] [address], [place], [address], Progress Notes * GIAN LEEDOB:1940 (83 yo M)Acc No.[id number]:03/08/2024 Patient: GIAN PARSONS Provider: Adan Figueroa :1940 A ge:83 Y S ex:Male Date:03/08/2024 Address:[address] [place], [place] [id number] Subjective: * Chief Complaints: * F ollow up depression, anxiety, insomnia * HPI: H istory of Presenting Problem: 83 y/o male, ( in 2022 55 years), has a new partner (Anne) who is now living with him, 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 Reports today he is doing really well. Mood has been good, no depression. denies SI. No anxiety, no panic attacks. Appetite fine, no concerns. Sleep reports has always been u p and down, but better lately. New medication for prostate (gemtesa), started around 1 month ago, feels the last few nights hasn't has to wake up to go to the restroom, sleeping more soundly through the night. 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 Talks about girlfriend, Anne, he met in yoga class. They are doing well, she moved in with him around 6 weeks ago. Overall feels memory is ok-and does a lot of storytelling during assessment with dates, timelines (overall no significant impairment noted)-exercises almost daily-walking, hiking, rowing machine Happy with medications as is, no concerns presently. ongoing notes: - apr 19, 2022 -1 daughter 55 y/o who lives nearby and had 1 son who committed suicide jul 23 1995 by hanging (schizoaffective/bipolar) In , I suffered severe depressive episode was put in hospital [facility] and after 2 wks and shock therapy was cleared to leave. Denied hx of suicide attempts or self-injury. Dr Monge/records in chart: , hx depression, anxiety, ECT in 2007-was hospitalized at [place] [facility], was treated with Effexor XR, risperidone and prn Ativan. Was able to go from 2012 until a few weeks before this appt without meds. Recently PCP started Effexor 75mg-caused more anxious, lexapro 5mg and buspar 5mg BID which he took for a week and no benefit, so these were stopped at lorazepam was started. Dx MDD severe, start Remeron 15mg qhs and Effexor 37.5.Interim: Remeron up to 22.5mg and Effexor XR 37.5mg04/01/23 increase Effexor to 75mg; 04/03/23 reduce to 37.5 d/t complaints of sluggish, disoriented, nausea, poor sleep. 04/15/23: was hosp 04/04-04/08/23 for influenza a, pneumonia, dehydration. Wanting anxiety med, start buspar 5mg qam, keep Effexor 37.5 and Remeron 22.5.04/30/23 cont buspar 5mg BID, keep Effexor 37.5 and Remeron 22.5. D epression Screening: KELLY-7 (2018 Edition) F eeling nervous, anxious, or on edge?Not at all, N ot being able to stop or control worrying N ot at all, W orrying too much about different things N ot at all, T rouble relaxing N ot at all, B eing so restless that it is hard to sit still N ot at all, B ecoming easily annoyed or irritable N ot at all, F eeling afraid as if something awful might happen N ot at all, T otal KELLY-7 Score 0 , I nterpretation of Total ( 0 to 4) No Anxiety. D epression screening: PHQ-9 L ittle interest or pleasure in doing things N ot at all, F eeling down, depressed, or hopeless N ot at all, T rouble falling or staying asleep, or sleeping too much N ot at all, F eeling tired or having little energy N ot at all, P oor appetite or overeating N ot at all, F eeling bad about yourself or that you are a failure, or have let yourself or your family down N ot at all, T rouble concentrating on things, such as reading the newspaper or watching television N ot at all, M oving or speaking so slowly that other people could have noticed; or the opposite, being so fidgety or restless that you have been moving around a lot more than usual N ot at all, T houghts that you would be better off or of hurting yourself in some way N ot at all, T otal Score 0 . I ntervention D epression Screening Findings N egative, S uicide Risk Assessment Performed . * ROS: G eneral / Constitutional: Patient denies f atigue, fever, headache, lightheadedness.? C ardiovascular: Patient denies c hest pain, dizziness, palpitations. ? G astrointestinal: Patient denies n ausea, vomiting, change in bowel habits, stomach problems. N eurologic: Patient denies b alance difficulty, confusion, gait abnormality, seizures, tic, tingling / numbness, tremor. P sychiatric: Patient denies a uditory / visual hallucinations, delusions, suicidal thoughts, Dissociations, involuntary movements. C lauren S [facility] for details.? N ormal blood pressure reading documented, follow-up not required ( G8783). * Medical History: * Surgical History: R econstructive surgery bilateral shoulders 2011 and 201503/17/2015hammer toe surgery rt foot * Hospitalization/Major Diagno stic Procedure: * Family History: S on: Suicide , Schizoaffective disorder , Bipolar disorder . * Social History: T obacco Use: T obacco Control (Standard) T obacco use: F ormer smoker. S ocial History Substance UseDo you or have you ever smoked tobacco?: Former smokerHow much tobacco do you smoke?: NoneDo you or have you ever used e-cigarettes or vape?: Never used electronic cigarettesWhat was the date of your most recent tobacco screening?: 06/10/2023What is your level of alcohol consumption?: ModerateHow many years have you consumed alcohol?: 70Do you use any illicit or recreational drugs?: NoWhich illicit or recreational drugs have you used?: NoneHave you used IV drugs?: NoWhat is your level of caffeine consumption?: ModerateEducation and OccupationWhat is the highest grade or level of school you have completed or the highest degree you have received?: Master's degree (e.g., MA, MS, Ashley, MEd, MORTGAGE [employer], NICK)Are you currently employed?: NoWho is your employer?: [employer].Marriage and SexualityWhat is your relationship status?: WidowedAre you sexually active?: YesDo you use protection during sex?: NoHow many children do you have?: 1 (Notes: note: has 1 living daughter, and 1son that 1995)Home and EnvironmentAre there any guns present in your home?: NoAdvance DirectiveDo you have an advance directive?: NoDo you have a medical power of estate attorney?: No. * Medications: T akingEntresto 24-26 MG Tablet 1 tablet Orally Twice a day Gemtesa 75 MG Tablet 1 tablet Orally Once a day Tamsulosin HCl 0.4 MG Capsule Oral Xarelto 10 MG Tablet Oral Levothyroxine Sodium 75 MCG Tablet Oral PreviDent 5000 Booster Plus 1.1 % Paste Dental Rosuvastatin Calcium 10 MG Tablet Oral Benzonatate 100 MG Capsule Oral Tadalafil 20 MG Tablet TAKE 1 TABLET BY MOUTH ONCE DAILY NEEDED FOR SEXUAL ACTIVITY. ADMINISTER APPROXIMATELY 30 MINUTES BEFORE SEXUAL ACTIVITY. DO NOT USE MORE THAN 1 DOSE PER 24 HOURS. Oral busPIRone HCl 5 MG Tablet 1 tablet Oral Twice a day Mirtazapine 15 MG Tablet Take 1.5 Tablets (22.5 mg) by mouth daily at bedtime. Medication List reviewed and reconciled with the patientTaking Entresto 24-26 MG Tablet 1 tablet Orally Twice a day Taking Gemtesa 75 MG Tablet 1 tablet Orally Once a day Taking Tamsulosin HCl 0.4 MG Capsule Oral Taking Xarelto 10 MG Tablet Oral Taking Levothyroxine Sodium 75 MCG Tablet Oral Taking PreviDent 5000 Booster Plus 1.1 % Paste Dental Taking Rosuvastatin Calcium 10 MG Tablet Oral Taking Benzonatate 100 MG Capsule Oral Taking Tadalafil 20 MG Tablet TAKE 1 TABLET BY MOUTH ONCE DAILY NEEDED FOR SEXUAL ACTIVITY. ADMINISTER APPROXIMATELY 30 MINUTES BEFORE SEXUAL ACTIVITY. DO NOT USE MORE THAN 1 DOSE PER 24 HOURS. Oral Taking busPIRone HCl 5 MG Tablet 1 tablet Oral Twice a day Taking Mirtazapine 15 MG Tablet Take 1.5 Tablets (22.5 mg) by mouth daily at bedtime. Medication List reviewed and reconciled with the patient * Allergies: N .K.D.A.no[Allergies Verified] Objective: * Vitals: B P:120/70mm Hg, HR:55/min, Wt:165.0lbs, Wt-k.84 kg, Ht: 68.00 in, Ht-cm: 172.72 cm, BMI:25.09Index, Body Surface Area: 1.89. * Examination: N eurology: Cognition Assessment Tools Used . P sychiatry: Appearance: a lert, pleasant, groomed, w ell-nourished and in no acute distress. Abnormal body movements: n one. Affect / mood: a ppropriate, full range. Attention: g ood, normal in conversation. Attitude: c ooperative, open-minded with collaborative approach. Homicidal ideation: n one. Suicidal ideation: n one. Memory status: n o impairment noted. Degree of awareness of surroundings: w ithin normal limits.? Delusions: n o. Hallucinations: n o. Insight: g ood. Intellectual functioning: n o impairment noted. Judgement: g ood. Orientation: a wake, alert and oriented x 3. Psychomotor activity: w ithin normal range. Speech / language: a ppropriate pitch/modulation, clear and coherent, normal rate, volume, and articulation (RVR), proper grammar used. Thought content: a ppropriate. Thought process: i ntact. Assessment: * Assessment: 1. D epression, major, recurrent, in remission - F33.40 (Primary) 2 . A nxiety disorder, unspecified - F41.9 3 . C hronic insomnia - F51.04 ? Doing well, no concerns. den ies depression, denies anxiety. Sleep good, improved since starting new medication for prostate: not waking up to use bathroom, sleeping more soundly No changes warranted, would like to continue with them as is. - Cont mirtazapine 22.5 mg qhs - continue buspirone 5 mg bid follow up 5 months, sooner if concerns arise Plan: * Treatment: 2. A nxiety disorder, unspecified Refill busPIRone HCl Tablet, 5 MG, 1 tablet, Oral, Twice a day, 90 days, 180 Tablet, Refills 1.? * Procedure Codes: 9 6127 BEHAV ASSMT W/SCORE & DOCD/STAND [id number] NORMAL BP READING DOC F/U NOT [id number] VISIT COMPLEXITY INHERENT TO ONGOING CARE RELATED TO A PATIENT'S SINGLE, SERIOUS CONDITION OR A COMPLEX CONDITION * Preventive Medicine: * Follow Up: 5 Months * Billing Information: * Visit Code: [id number] OFFICE OUTPATIENT VISIT 25 MINUTES DETAILED HISTORY AND EXAM/MODERATE MEDICAL DECISION MAKING. * Procedure Codes: 65559 BEHAV ASSMT W/SCORE & DOCD/STAND INSTRUMENT. G8783 NORMAL BP READING DOC F/U NOT RQR. G2211 VISIT COMPLEXITY INHERENT TO ONGOING CARE RELATED TO A PATIENT'S SINGLE, SERIOUS CONDITION OR A COMPLEX CONDITION. * STANT BRAND MANAGER Electronically co-signed by Padilla Barajas MD on 03/08/2024 at 08:15 PM ASSISTANT BRAND MANAGER Sign off status: Completed true * Provider: Adan Figueroa Date: 05/09/2023 Generated for Candi chowdhury/Jeffrey/Raoransmherberth on: 0 05/05/2024 09:31 AM ASSISTANT BRAND MANAGER History and Physical Notes * HPI (History of Present Illness) Category Sub-Category Detail Notes Category Not es Depression screening PHQ-9 Little inte rest or pleasure in doing things: Not at all Feeling down, depressed, or hopeless: No t at all Trouble falling or staying asleep, or sl eeping too much: Not at all Feeling tired or having little energy: N ot at all Poor appetite or overeating: Not at all Feeling bad about yourself o r that you are a failure, or have let yourself or your family down: Not at all Trouble concentrating on thi ngs, such as reading the newspaper or watching television: Not at all Moving or speaking so slowly that other people could have noticed; or the opposite, being so fidgety or restless that you have been moving around a lot more than usual: Not at all Thoughts that you would be b bert off or of hurting yourself in some way: Not at all Total Score: 0 Intervention Depression Screening Findings: N egative Suicide Risk Assessment Performed: ____ Depression Screening KELLY-7 (2018 Edition) Feelin g nervous, anxious, or on edge: Not at all Not being able to stop or control worryi ng: Not at all Worrying too much about different things : Not at all Trouble relaxing: Not at all Being so restless that it is hard to sit still: Not at all Becoming easily annoyed or irritable: No t at all Feeling afraid as if something awful norma ht happen: Not at all Total KELLY-7 Score: 0 Interpretation of Total: (0 to 4) No Anx iety Examination Category Sub-Category Detail Notes Category Not es Neurology Cognition Assessment Tools Used Total score SLUMS: 26 Psychiatry Appearance: alert, pleasant, groomed, well-nourished and in no acute distress Attitude: cooperative, open-mi nded with collaborative approach Psychomotor activity: within normal rang e Abnormal body movements: none Attention: good, normal in conv ersation Degree of awareness of surroundings: wit hin normal limits Orientation: awake, alert and lexie ented x 3 Affect / mood: appropriate, full ra nge Speech / language: appropriate pitch/mo dulation, clear and coherent, normal rate, volume, and articulation (RVR), proper grammar used Insight: good Judgement: good Thought process: intact Thought content: appropriate Suicidal ideation: none Homicidal ideation: none Intellectual functioning: no impairment noted Memory status: no impairment noted Delusions: no Hallucinations: no
--- OUTSIDE RECORDS SUMMARY | 2024-05-05 09:40 | XMS_ITS | Patient Health Record ---
Author Organization [facility] [employer] Address [address] [facility] [address] [place] [address] Care Team Providers Care Organ Builder Name Role Phone Carli Figueroa Unavailable [phone] Lola Arenas Unavailable [phone] Migration, Provider Unavailable Unavailable Allergies No Known Allergies Results Component Value Reference Range Notes DRUG SCREEN, 14 DRUGS (DETEC TIMED), URINE Reviewed date:06/10/2023 12:00:00 AM Interpretation: Performing Lab: Notes/Report: Amphetamine negative Barbiturates negative Benzodiazipine negative Buprenorphine negative Cocaine negative MDMA/Ectasy negative Methadone negative Methamphetamine negative Morphine negative Oxycodone negative Phenocyclidine negative THC negative Reason For Referral No Information Medications Medication SIG (Take, Route, Frequency, Duration) Notes Start Date End Date Status Tamsulosin HCl 0.4 MG Oral for 30 Days Active Xarelto 10 MG Oral for 90 Days Active Entresto 24-26 MG 1 tablet Orally Twic e a day Active Gemtesa 75 MG 1 tablet Orally Once a day Active busPIRone HCl 5 MG 1 tablet Oral Twice a day for 90 days Active Mirtazapine 15 MG Take 1.5 Tablets (22 .5 mg) by mouth daily at bedtime. Activ e Benzonatate 100 MG Oral for 10 Days Active Tadalafil 20 MG TAKE 1 TABLET BY EDDIE TH ONCE DAILY NEEDED FOR SEXUAL ACTIVITY. ADMINISTER APPROXIMATELY 30 MINUTES BEFORE SEXUAL ACTIVITY. DO NOT USE MORE THAN 1 DOSE PER 24 HOURS. Oral for 10 Days Active PreviDent 5000 Booster Plus 1.1 % Dental for 30 Days Active Rosuvastatin Calcium 10 MG Oral for 90 Days Active Mirtazapine 15 MG 1.5 tabs at bedtime Oral daily for 90 days Active busPIRone HCl 5 MG 1 tablet Oral Twice a day for 90 days Active Levothyroxine Sodium 75 MCG Oral for 90 Days Active Social History Tobacco Use: Social History Observation Description Date Details (start date - stop date) Former Smoker NA - NA Sex Assigned At : Social History Observation Description Sex Assigned At Male Tobacco Control (Standard) Question Answer Notes Tobacco use: Former smoker AUDIT-C (Standard) Question Answer Notes Did you have a drink containing alcohol in the p ast year? Yes How often did you have six o r more drinks on one occasion in the past year? Never (0 point) Section Notes: Social History Substance UseDo you [...] Master's degree (e.g., MA, MS, Ashley, MEd, PRODUCTION LINE MANAGER, NICK)Are you currently employed?: NoWho is your [...] NoDo you have a medical power of distribution lineman?: No Social History Substance UseDo you or have [...] Master's degree (e.g., MA, MS, Ashley, MEd, PRODUCTION LINE MANAGER, NICK)Are you currently employed?: NoWho is your [...] NoDo you have a medical power of distribution lineman?: No Problems Problem Type SNOMED Code ICD Code Onset Dates Problem Status W/U Status Risk Notes Problem Mild recurrent major depression (04124301) Major depressive disorder, recurrent, mild (F33.0) 4 Active confirmed Problem Anxiety disorder (488448442) Anxiety disorder, unspecified (F41.9) 4 Active confirmed Problem Chronic insomnia (302745249) Chronic insomnia (F51.04) Active confirmed Problem Recurrent major depression (87147054) Depression, major, recurrent, 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) Active confirmed Vital Signs Heart Rate 55 /min 03/08/2024 Height-cm 172.72 cm 03/08/2024 Blood pressure diastolic 70 mm Hg 03/08/2024 Weight-kg 74.84 kg 03/08/2024 Height 68.00 in 03/08/2024 Blood pressure systolic 120 mm Hg 03/08/2024 Weight 165.0 lbs 03/08/2024 BMI 25.09 kg/m2 03/08/2024 Encounters Encounter Location Date Provider Diagnosis [facility] [address] [facility] [address] [place] [address] 06/10/2023 Lola Arenas Anxiety disorder, unspecified F41.9 ; Major depressive disorder, recurrent, mild F33.0 and Psychophysiologic insomnia F51.04 [facility] [address] [address] 09/10/2023 Lola Deepa Major depressive disorder, recurrent, mild F33.0 ; Anxiety disorder, unspecified F41.9 and Chronic insomnia F51.04 [facility] [address] [address] 03/08/2024 Carli Figueroa Depression, major, recurrent, in remission F33.40 ; Anxiety disorder, unspecified F41.9 and Chronic insomnia F51.04 [place] [address] [address] 05/15/2023 Provider Migration [facility], [facility] [address] [address] 05/16/2023 Provider Migration [facility], [facility] [address] [address] 06/03/2023 Provider Migration [facility], [facility] [address] [address] 08/02/2023 Provider Migration [facility], [facility] [address] [address] 08/03/2023 Provider Migration [facility], [facility] [address] [address] 01/28/2024 Carli Figueroa Major depressive disorder, recurrent, mild F33.0 [facility] [address] [address] 01/28/2024 Carli Figueroa Major depressive disorder, recurrent, mild F33.0 Assessments Encounter Date Diagnosis (ICD Code) Assessment Notes Treatment Notes Treatment Clinical Notes Section Notes 09/10/2023 Major depressive disorder, recurrent, mild (ICD-10 - F33.0) cont mirtazapine 22.5mg qhs cont therapy stable, has no concerns no new orders education medications, treatment course. he would like to extend f/u time as Dr Monge saw him less often f/u 5 months, earlier if concerns 03/08/2024 Depression, major, recurrent, in remission (ICD-10 [...] up 5 months, sooner if concerns arise 09/10/2023 Anxiety disorder, unspecified (ICD-10 - F41.9) cont buspirone 5mg BID 06/10/2023 Major depressive disorder, recurrent, mild (ICD-10 - F33.0) 06/10/2023 Anxiety disorder, unspecified (ICD-10 - F41.9) 06/10/2023 Psychophysiologic insomnia (ICD-10 - F51.04) 01/28/2024 Major depressive disorder, recurrent, mild (ICD-10 - F33.0) 01/28/2024 Major depressive disorder, recurrent, mild (ICD-10 - F33.0) 03/08/2024 Anxiety disorder, unspecified (ICD-10 - F41.9) [...] up 5 months, sooner if concerns arise 09/10/2023 Chronic insomnia (ICD-10 - F51.04) mirtazapine practice good sleep hygiene Plan Of Treatment Next Appt Details Provider Name:Carli rivas, 08/06/2024 01:00:00 PM, [address], [facility] [address], [place], [address], Insurance Providers Payer Name Payer Address Payer Phone Subscriber Number Group Number Insured Name Patient Relationship to Insured Coverage Start Date Coverage End Date [employer] [employer] [address] [place] [address] [id number] GIAN LEE Self - patient is the insured Medical (General) History Medical History History ICD Code Problems: Anxiety Chronic insomnia Mild recurrent major depression , Surgical History Surgery Date(Month/Year) Reconstructive surgery bilateral shoulde rs 2011 and 201503/17/2015 hammer toe surgery rt foot
--- OUTSIDE RECORDS SUMMARY | 2024-05-05 09:40 | XMS_ITS | Continuity of Care Document ---
Author Organization [facility] Address [address] [place] [address] Phone Care Team Providers Care Watch Dial Maker Name Role Phone Brennon Davis MD Unavailable [...] visit Office/outpatient visit,est, mod 2017 Office/outpatient visit,est, [facility] 2017 X-ray exam shoulder minimum 2 views Office/outpatient visit,est, low 2015 Office/outpatient visit,est, low 2014 Global/Postop followup visit Global/Postop followup visit X-ray exam shoulder minimum 2 views Global/Postop followup visit Office/outpatient visit,[facility], [facility] 2014 Advance Directives Directive Yes / No Effective Date File Name No Information Encounters Encounter Description Practice Location Reason(s) For Visit Diagnoses Date Provider Providers Copied on Encounter [facility], [address], [place], [place], [id number], [place] tel:[phone] [facility] [place] [facility] Bilateral Shoulders (chief complaint) Presence of left artificial shoulder jointPresence of right artificial shoulder joint May-0 6-201 9 Ryan Willett. [address] [facility] [place] [address], [place], [place], [id number] , [place]. tel:[phone] Referring Provider: Gamal Hong, [address] [facility] [address], [place], [address]. tel:[phone] [facility], [address] [address], [place], [place], [id number], [place] tel:-[phone] [facility] Right shoulder (chief complaint) Presence of right artificial shoulder joint Aug-0 3-201 8 Ryan Brennon. [address] [facility], [place] [address], [place], [place], [id number] , [place]. tel: [phone] [facility] [place] [facility], [address] [address], [place], [place], [id number], [place] tel:[phone] [facility] [place] [facility] Right shoulder (chief complaint) Presence of right artificial shoulder joint Gibson-2 0-201 8 Ryan Brennon. [address] [facility], [place] [address], [place], [place], [id number] , [place]. tel: [phone] [facility] [place] [facility], [address], [id number], [place] tel:-[phone] [facility] right shoulder (chief complaint) Presence of right artificial shoulder joint May-2 3-201 8 Ryan Brennon. [address] [facility], [facility] [address], [place], [place], [id number] , [place]. tel: [phone] [facility] [place] [facility], [address] [address], [place], [place], [id number], [place] tel:-[phone] [facility] Primary osteoarthritis, right shoulder Apr-1 6-201 8 Ryan Willett. [address] [facility], [place] [address], [place], [place], [id number] , [place]. tel: [phone] Office/outpat ient visit,est, mod [facility], [address] [address], [place], [place], [id number], [place] tel:[phone] [facility] Right Shoulder (chief complaint) Primary osteoarthritis, right shoulder Feb-2 6-201 8 Ryan Willett. [address] [address] [address], [place], [place], [id number] , [place]. tel:[phone] Office/outpat ient visit,est, [facility], [address] [address], [place], [place], [id number], [place] tel:-[phone] [facility] [place] [facility] right shoulder pain (chief complaint) Pain in right shoulderPrimary osteoarthritis, right shoulder Feb-2 1-201 8 Dinan Mariam. [address] [place] [address], [place], [place], [id number] , [place]. tel:[phone] Referring Provider: Gamal Hong, [facility] [address], [place], [address]. tel:[phone] Office/outpat ient visit,est, [facility], [address] [address], [place], [place], [id number], [place] tel:[phone] [facility] [place] [facility] Left Shoulder (chief complaint) Presence of left artificial shoulder joint Apr-0 5-201 6 Dinan Mariam. [address] [place] [address], [place], [place], [id number] , [place]. tel: [phone] Office/outpat ient visit,est, [facility], [address] [place] [address], [id number], [place] [phone] [facility] Presence of left artificial shoulder joint Oct-0 5-201 5 Ryan Willett. [address] [place] [address], [place], [place], [id number] , [place]. tel:[phone] [facility], [address] [place] [address], [id number], [place] tel:[phone] [facility] Shoulder replacement status Aug- 0-201 5 Ryan Willett. [address] [facility], [place] [address], [place], [place], [id number] , [place]. tel: [phone] [facility], [address] [address], [place], [place], [id number], [place] [phone] [facility] Shoulder replacement status 5 Ryan Willett. [address] [facility], [place] [address], [place], [place], [id number] , [place]. tel: [phone] [facility], [address], [id number], [place] tel:[phone] [facility] Shoulder replacement status 5 Ryan Willett. [address] [facility], [address], [id number] , [place]. tel: [phone] [facility], [address], [id number], [place] tel:[phone] [facility] Shoulder replacement status 5 Ryan Willett. [address] [facility], [address], [id number] , [place]. tel: [phone] [facility], [address], [id number], [place] tel:[phone] [facility] ARTHROPATHY NOS-SHLDER 5 Frankei Joyce. [address] [facility], [place] [address], [place], [place], [address] , [place]. tel: [phone] Office/outpat ient visit,new, mod [facility], [address], [id number], [place] tel:[phone] [facility] ARTHROPATHY NOS-SHLDER May- 1 5 Ryan Willett. [address], [id number] , [place]. tel: [phone] Family History Family Member Type Diagnosis Age [...] Unspecified Payers Payer name Insurance type Covered constitution party ID Maryjared pa(s) Trisha Blue [employer] Blue Shiel d [facility] [id number] Social History Type Description Quantity Date Captured [...]
--- NOTE | 2024-05-05 09:57 | ECG_ITS ---
Test Date: 2024-05-05 10:39:15 Measurements Intervals Lucas Rate: 56 P: -12 OK: 336 QRS: -7 QRSD: 102 T: -12 QT: 464 QTc: 448 Interpretive Statements SINUS BRADYCARDIA WITH MARKED FIRST DEGREE AV BLOCK BORDERLINE T WAVE ABNORMALITY- INFERIOR LEADS BORDERLINE ECG Compared to ECG 04/03/2024 02:47:01 Atrial fibrillation no longer present Electronically Signed On 05-05-2024 10:40:57 AUTO BODY REPAIR TECHNICIAN by Nolan Andersen D.O.
--- NOTE | 2024-05-05 10:00 | ED_ITS ---
HPI - Recheck/Abnormal Lab/Rx General Chief Complaint: Recheck/Abnormal Lab/Rx Stated Complaint: R sided swelling Time Seen by Provider: 05/05/24 09:31 Source: patient and family Mode of arrival: ambulatory Limitations: no limitations History of Present Illness HPI narrative: This is a 83 year old male that presents to the ER with several complaints. Family gives most of the history. Patient recently underwent cardiac surgery with stents place and valve replacement at [facility]. He has been recovering at [facility]. Reports he has had swelling in his right hand and bilateral lower extremities over the last week. Reports urinary discomfort/hesitancy. Reports his breath is foul smelling and they are concerned he has aspirated again. Also report he has been struggling with low sodium levels and has been lethargic. Related Data Home Medications ?Medication ?Instructions ?Recorded ?Confirmed ?Last Taken ?Type acetaminophen 500 mg capsule 1,000 mg PO Q6H PRN pain 03/27/24 05/05/24 03/27/24 History latanoprost 0.005 % eye drops 1 drp RIGHT EYE QPM 03/27/24 05/05/24 05/04/24 History Allergies Allergy/AdvReac Type Severity Reaction Status Date / Time eszopiclone Allergy Unknown Unknown Verified 04/20/24 18:03 sulfamethoxazole (From AdvReac Unknown Rash Verified 04/20/24 18:03 Bactrim) trimethoprim (From Bactrim) AdvReac Unknown Rash Verified 04/20/24 18:03 Review of Systems 2 Review of Systems: CONSTITUTIONAL: Denies fever CARDIOVASCULAR: Reports edema. Denies chest pain RESPIRATORY: Denies dyspnea. GENITOURINARY: Reports dysuria NEUROLOGIC: Reports generalized weakness. All systems reviewed & are unremarkable except as noted in HPI and below [facility] Past Medical History Medical History (Updated 05/05/24 @ 15:39 by Carmela Blackwell PA-C) Peripheral neuropathy Chronic constipation Aortic root aneurysm Iliac artery aneurysm Bilateral CHF (congestive heart failure) Diverticulosis Internal hemorrhoids Insomnia Anxiety Depression Left wrist fracture Left rotator cuff tear Arthritis Esophageal stricture GERD (gastroesophageal reflux disease) Hiatal hernia Rectal polyp Sleep apnea DVT (deep venous thrombosis) MVP (mitral valve prolapse) Pulmonary embolism Hypothyroidism Surgical History Surgical History (Updated 04/14/24 @ 08:56 by Ernestina Wisdom PA-C) Hx of ascending aorta replacement H/O thyroidectomy H/O right wrist surgery H/O left wrist surgery H/O repair of left rotator cuff H/O prostatectomy Hx of tonsillectomy History of partial thyroidectomy Status post left rotator cuff repair S/P TURP H/O shoulder replacement Family History Family History Mother Cerebrovascular accident Sibling Family history of coronary artery disease Social History Social History Smoking packs per day: 0.5 Smoking cigarettes per day: 10.0 Years smoked: 20 Smoking pack-years: 10.00 Smoking status: Former smoker Tobacco type: cigarettes Second hand tobacco smoke exposure: Yes Smoking end date: 03/17/81 Alcohol intake: never Drinks per week: 18 Substance use: never Substance use type: does not use Do You Feel Safe in your Home?: Yes Lack of Transportation: No Lack of Food: Never True Current Housing: I Have Housing Concerned About Future Housing: No Difficulty Paying Gas/Electric Bills: No Difficulty Paying for Meds: No Currently Unemployed: No Education: Master's Degree or Higher Difficulty w/ Childcare or Family Care: No Living arrangements: with family Occupation/Education: retired Gender identity (if verbalized by the patient): Male Spiritual care concerns: No Exam 2 Narrative: GENERAL: Elderly, well-nourished, and in no acute distress. HEAD: Normocephalic, atraumatic. EYES: EOMI. ENT: Nares clear, no rhinorrhea or epistaxis. Mucous membranes moist. Oropharynx without tonsillar hypertrophy exudate or other lesions. NECK: Supple. No adenopathy or masses. CHEST: Clear to auscultation. No respiratory distress. No wheezes rales or rhonchi HEART: Regular rate and rhythm. No murmur heard. Normal peripheral pulses. EXTREMITIES: Normal range of motion. Non pitting edema to the bilateral feet. Normal DP pulses SKIN: Warm, dry, no rash. NEURO: No focal deficits. Alert and oriented x3. PSYCH: Normal mood and affect Course Course Emergency Course: patient and family updated on workup. We spoke about further inpatient versus close follow up outpatient. They would like to follow up with PCP Consultations Consultation #1: Spoke with Dr. Pace about patient and workup. Patient has follow up with him tomorrow Date: 05/05/24 Vital Signs Vital signs: Vital Signs Pulse Rate 58 L 05/05/24 09:30 Respiratory Rate 16 05/05/24 09:30 Blood Pressure 113/58 L 05/05/24 09:30 Pulse Oximetry 95 05/05/24 09:30 Oxygen Delivery Room Air 05/05/24 09:30 Temperature 97.5 F L 05/05/24 15:30 Pulse Rate 56 L 05/05/24 15:30 Respiratory Rate 14 05/05/24 15:30 Blood Pressure 113/66 05/05/24 15:30 Pulse Oximetry 97 05/05/24 15:30 Oxygen Delivery Room Air 05/05/24 09:30 MDM - Recheck/Abnormal Lab/Rx MDM Narrative Medical decision making narrative: Patient presents emergency department with multiple complaints. Reporting lower extremity edema, low-sodium, bladder pain, concern for aspiration. Patient is afebrile and nontoxic appearing. His vitals are stable. CBC appears stable. Metabolic panel with chronic hyponatremia. Urine without evidence of infection. Influenza, RSV and COVID screens are negative. Bilateral lower extremity venous Doppler without evidence of DVT. Right upper extremity venous Doppler without evidence of DVT. Chest x-ray shows left pleural effusion with atelectasis versus pneumonia. patient and family updated on workup. We spoke about further inpatient versus close follow up outpatient. They would like to follow up with PCP. Spoke with Dr. Pace about patient and workup. Patient has follow up with him tomorrow Differential Diagnosis Differential diagnosis: Likely other (Hyponatremia, dehydration, electrolyte derangement, pneumonia, anemia, UTI, influenza, COVID, DVT, heart failure) Lab Data Attestation: I reviewed the patient's lab results. 05/05/24 10:39 05/05/24 10:39 Labs: Lab Results 05/05/24 05/05/24 Range/Units 10:39 11:27 WBC 4.3 L (4.5-10.0) K/mm3 RBC 3.09 L (4.6-6.20) M/mm3 Hgb 8.9 L (14.0-18.0) g/dL Hct 26.8 L (42.0-52.0) % MCV 86.7 (80-100) fl MCH 28.8 (26-34) pg MCHC 33.2 (32-36) g/dl RDW 15.6 H (11.5-14.5) % Plt Count 189 (150-375) k/mm3 MPV 10.6 H (7.4-10.4) fl Immature Gran % (Auto) 0.5 (0-0.5) % Neut % (Auto) 59.1 (45.5-73.1) % Lymph % (Auto) 14.6 L (18.3-44.2) % [place] % (Auto) 17.1 H (2.6-8.5) % Eos % (Auto) 7.3 H (0-4.4) % Baso % (Auto) 1.4 H (0.2-1.2) % Lymph # (Auto) 0.62 L (0.9-3.2) K/mm3 [place]wey # (Auto) 0.7 H (0.1-0.6) K/mm3 Eos # (Auto) 0.3 (0-0.3) K/mm3 Baso # (Auto) 0.1 (0.0-0.1) K/mm3 Abs Immat Gran (auto) 0.02 (0.00-0.031) K/mm3 Absolute Neuts (auto) 2.5 (1.3-6.7) K/mm3 Absolute Nucleated RBC 0.000 (0.0-0.012) K/mm3 Nucleated RBC % 0.0 (0.0-0.2) % PT 16.1 H (11.1-14.7) Seconds INR 1.3 APTT 41.7 H (22.3-36.8) Seconds Sodium 124 L (137-145) mmol/L Potassium 4.8 (3.4-5.0) mmol/L Chloride 93 L (98-107) mmol/L Carbon Dioxide 22 (22-30) mmol/L Anion Gap 9 (4-12) mmol/L BUN 22 H (9-20) mg/dL Creatinine 0.83 (0.7-1.3) mg/dL Estim Creat Clear Calc 50 ml/min Estimated GFR > 60 (59 - ) Glucose 91 (65-110) mg/dL Calcium 8.4 (8.4-10.2) mg/dL Total Bilirubin 0.7 (0.2-1.3) mg/dL AST 46 (17-59) U/L ALT 29 (6-50) U/L Alkaline Phosphatase 103 (38-126) U/L NT-Pro-B Natriuret Pep 2460 H (19.9-100) pg/mL Total Protein 6.0 L (6.3-8.2) g/dL Albumin 3.3 L (3.5-5.1) g/dL Urine Color Yellow (Yellow) Urine Appearance Clear (Clear) Urine pH 7.0 (5.0-9.0) Ur Specific [place] 1.020 (1.001-1.035) Urine Protein Negative (Negative) mg/dL Urine Glucose (UA) Negative (Negative) mg/dL Urine Ketones Negative (Negative) mg/dL Ur Blood (Man) Negative (Negative) Urine Nitrate Negative (Negative) Urine Bilirubin Negative (Negative) Urine Urobilinogen 1.0 (<2.0) mg/dL Leukocyte Esterase Rfl Negative (Negative) LYNDSAY/UL Influenza A (RT-PCR) Negative (Negative) Influenza B (RT-PCR) Negative (Negative) RSV (RT-PCR) Negative (Negative) SARS-CoV-2 RNA (RT-PCR) Negative (Negative) Imaging Data Radiologist's impression: ITS Impressions Venous Doppler Study 05/05/24 11:20 IMPRESSION: 1. No deep venous thrombosis in either lower limb. Venous Doppler Study 05/05/24 11:25 IMPRESSION: 1. Patent right upper extremity veins. No evidence of venous thrombosis. Chest X-Ray 05/05/24 11:42 IMPRESSION: 1. Small left pleural effusion with associated posterior basilar atelectasis and/or pneumonia. 2. Cardiomegaly. ECG Data EKG #1: ECG completion date: 05/05/24 EKG Interpretation: bradycardia, sinus rhythm, no ST changes and normal QT Critical Care Time Critical Care Time Critical Care Time: No Discharge Plan Discharge Clinical Impression: Hyponatremia Pneumonia Qualifiers: Pneumonia type: due to unspecified organism Laterality: left Lung location: l ower lobe of lung Qualified Code(s): J18.9 - Pneumonia, unspecified organism Patient Disposition: Home, Self-Care Condition: Stable Instructions: Antibiotic Form, Hyponatremia (ED), Community Acquired Pneumonia (ED) Additional Instructions: Return to the emergency department if you experience fever, chest pain, shortness of breath, abdominal pain with nausea and vomiting, weakness, numbness, or any other symptoms that are concerning to you. Continue 3 tabs of sodium chloride daily. Take antibiotics as prescribed Follow up with primary care doctor Patient Language: Maori Prescriptions: New doxycycline monohydrate 25 mg/5 mL suspension for reconstitution 100 mg feeding tube BID 4 Days Qty: 160 0RF amoxicillin-pot clavulanate 400-57 mg/5 mL suspension for reconstitution 10 ml PO BID 4 Days Qty: 80 0RF No Action levothyroxine 88 mcg tablet 88 mcg feeding tube DAILY@0500 Qty: 30 5RF acetaminophen 500 mg capsule 1,000 mg PO Q6H PRN (Reason: pain) latanoprost 0.005 % drops 1 drp RIGHT EYE QPM amiodarone [Pacerone] 200 mg Tablet 100 mg feeding tube DAILY Qty: 30 0RF buspirone 10 mg Tablet 5 mg feeding tube BID Qty: 60 0RF aspirin [Children's Aspirin] 81 mg Tablet,Chewable 81 mg feeding tube DAILY Qty: 30 0RF calcium carbonate 500 mg calcium (1,250 mg) Tablet,Chewable 200 mg PO Q6H PRN (Reason: Indigestion) Qty: 0 0RF Eliquis 5 mg Tablet 5 mg feeding tube Q12HR Qty: 60 0RF midodrine 5 mg Tablet 5 mg feeding tube TIDAC Qty: 90 0RF cyanocobalamin (vitamin B-12) [Vitamin B-12] 1,000 mcg Tablet 1,000 mcg feeding tube DAILY Qty: 30 0RF melatonin 3 mg Tablet 6 mg PO HS Qty: 0 0RF Patient Comments: as needed mirtazapine [Remeron] 15 mg Tablet 22.5 mg feeding tube HS Qty: 30 0RF rosuvastatin [Crestor] 10 mg Tablet 20 mg feeding tube QAM Qty: 30 0RF sodium chloride 1,000 mg Tablet,Soluble 1,000 mg feeding tube BID Qty: 60 0RF Patient Comments: took 3 yesterday and 2 this morning oxybutynin chloride 5 mg Tablet 5 mg feeding tube DAILY Qty: 30 0RF Follow-up/Referrals: Martinez Pace MD [Primary Care Provider] -
[2024-05-05] MEDS: SODIUM CHLORIDE 0.9% IV 500 ML 999 ML IV CONT (10:32)
[2024-05-05 10:48] LABS: Basophils Absolute Auto 0.1 K/mm3 (0.0-0.1); Basophils Percent Auto 1.4 % (0.2-1.2); Eosinophils Absolute Auto 0.3 K/mm3 (0-0.3); Eosinophils Percent Auto 7.3 % (0-4.4); Hematocrit 26.8 % (42.0-52.0); Hemoglobin 8.9 g/dL (14.0-18.0); Immature Granulocyte Absolute 0.02 K/mm3 (0.00-0.031); Immature Granulocyte Percent A 0.5 % (0-0.5); Lymphocytes Absolute Auto 0.62 K/mm3 (0.9-3.2); Lymphocytes Percent Auto 14.6 % (18.3-44.2); Mean Corpuscular HGB Conc 33.2 g/dl (32-36); Mean Corpuscular Hemoglobin 28.8 pg (26-34); Mean Corpuscular Volume 86.7 fl (80-100); Mean Platelet Volume 10.6 fl (7.4-10.4); Monocytes Absolute Auto 0.7 K/mm3 (0.1-0.6); Monocytes Percent Auto 17.1 % (2.6-8.5); Neutrophils Absolute Auto 2.5 K/mm3 (1.3-6.7); Neutrophils Percent Auto 59.1 % (45.5-73.1); Platelet Count Result 189 k/mm3 (150-375); Red Blood Count 3.09 M/mm3 (4.6-6.20); Red Cell Distribution Width 15.6 % (11.5-14.5); White Blood Count 4.3 K/mm3 (4.5-10.0)
[2024-05-05 11:03] LABS: INR 1.3; Prothrombin Time 16.1 Seconds (11.1-14.7)
[2024-05-05 11:04] LABS: Partial Thromboplastin Time 41.7 Seconds (22.3-36.8)
[2024-05-05 11:23] LABS: Influenza A QL RT-PCR Negative (Negative); Influenza B QL RT-PCR Negative (Negative); RSV RNA, RT-PCR Negative (Negative); SARS-CoV-2 RNA PCR Negative (Negative)
[2024-05-05 11:41] LABS: Add Urine Microscopic? NO; Appearance Urine Clear (Clear); Bilirubin Urine Negative (Negative); Blood Urine Negative (Negative); Color Urine Yellow (Yellow); Glucose Urine UA Negative (Negative); Ketones Urine Negative (Negative); Leukocyte Esterase Ur Negative LEU/UL (Negative); Nitrate Urine Negative (Negative); Protein Urine Negative (Negative)
[2024-05-05 12:02] LABS: Alanine Aminotransferase 29 U/L (6-50); Albumin Level 3.3 g/dL (3.5-5.1); Alkaline Phosphatase 103 U/L (38-126); Anion Gap 9 mmol/L (4-12); Aspartate Amino Transferase 46 U/L (17-59); Bilirubin,Total 0.7 mg/dL (0.2-1.3); Blood Urea Nitrogen 22 mg/dL (9-20); Calcium 8.4 mg/dL (8.4-10.2); Carbon Dioxide 22 mmol/L (22-30); Chloride 93 mmol/L (98-107); Estimated CRCL calculation 50 ml/min; Estimated Glomerular Filt Rate > 60; Glucose 91 mg/dL (65-110); Potassium 4.8 mmol/L (3.4-5.0); Sodium 124 mmol/L (137-145)
[2024-05-05 12:11] LABS: NT Pro B Type Natriuretic Pept 2460 pg/mL (19.9-100)
[2024-05-05] MEDS: AZITHROMYCIN 500 MG/NS 250 ML 500 MG/250 ML BAG 250 MG IVPB (15:32)
== END 2024-05-05 17:01 | disposition home or self-care (01) ==
PROVIDERS: Emergency Provider Physician Assistant; PCP Family Medicine
DX: J18.9 Pneumonia, unspecified organism (principal); E87.1 Hypo-osmolality and hyponatremia; Z20.822 Contact with and (suspected) exposure to COVID-19; I50.9 Heart failure, unspecified; I34.1 Nonrheumatic mitral (valve) prolapse; E89.0 Postprocedural hypothyroidism; K21.9 Gastro-esophageal reflux disease without esophagitis; K44.9 Diaphragmatic hernia without obstruction or gangrene; G62.9 Polyneuropathy, unspecified; G47.30 Sleep apnea, unspecified; Z95.2 Presence of prosthetic heart valve; Z95.5 Presence of coronary angioplasty implant and graft; Z96.619 Presence of unspecified artificial shoulder joint; Z87.891 Personal history of nicotine dependence; Z86.0100 Personal history of colon polyps, unspecified; Z86.711 Personal history of pulmonary embolism; Z90.79 Acquired absence of other genital organ(s); Z79.01 Long term (current) use of anticoagulants; Z79.899 Other long term (current) drug therapy; I51.7 Cardiomegaly
CPT/HCPCS: 36415; 71046; 80053; 81003; 83880; 85025; 85610; 85730; 87040; 87637; 93005; 93970; 93971; 96365; 96367; 99284; J0456; J0696; J7040

== ENCOUNTER 2024-05-10 08:48 | Emergency (ER) | payer BC, SELFPAY ==
[2024-05-10] VITALS (9 sets, daily range): BP systolic 71–117; BP diastolic 39–72; PULSE 58–83; RESP 16–21; TEMP 36.5; O2SAT 96–100
--- NOTE | ~2024-05-10 | CT_ITS ---
EXAMINATION: CT cervical spine wo con DATE: 05/10/2024 11:20 INDICATION: Neck injury. Fall. TECHNIQUE: Computed tomography (CT) of the cervical spine was performed without intravenous contrast. Automated exposure control and iterative reconstruction technique were employed. The dose-length pro duct was 450.81 mGy-cm. COMPARISON: CT cervical spine 09/28/2023 FINDINGS: There is 2 mm retrolisthesis of C3 on C4, C4 on C5, and C6 on C7. There is 2 mm anterolisth esis of C7 on T1. There is mild chronic anterior wedging of T1 and T2 vertebral bodies. There is mild ly decreased disc height at C2-C3, severely decreased disc height from C3-C4 through C6-C7, and mildl y decreased disc height at C7-T1. The following disc levels are specifically discussed: C2-C3: There is mild bilateral uncovertebral joint osteoarthritis. There is severe right facet joint osteoarthritis. There is mild right neural foraminal stenosis. There is no central canal stenosis. C3-C4: There is severe bilateral uncovertebral joint osteoarthritis. There is severe bilateral facet joint osteoarthritis. There is moderate right and mild left neural foraminal stenosis. There is mild central canal stenosis. C4-C5: There is severe bilateral uncovertebral joint osteoarthritis. There is severe right and modera te left facet joint osteoarthritis. There is mild bilateral neural foraminal stenosis. There is mild central canal stenosis. C5-C6: There is severe bilateral uncovertebral joint osteoarthritis. There is severe bilateral facet joint osteoarthritis. There is mild bilateral neural foraminal stenosis. There is mild central canal stenosis. C6-C7: There is severe bilateral uncovertebral joint osteoarthritis. There is severe bilateral facet joint osteoarthritis. There is mild bilateral neural foraminal stenosis. There is mild central canal stenosis. C7-T1: There is no uncovertebral joint osteoarthritis. There is severe bilateral facet joint osteoart hritis. There is mild right neural foraminal stenosis. There is no central canal stenosis. IMPRESSION: 1. No fracture. 2. Severe cervical spondylosis. Reviewed, dictated and finalized at location A. REPORT ANALYST
--- NOTE | ~2024-05-10 | CT_ITS ---
EXAMINATION: CT brain wo con DATE: 05/10/2024 11:20 INDICATION: Head injury. Fall. TECHNIQUE: Computed tomography (CT) of the head was performed without intravenous contrast. The mA wa s adjusted according to patient size. Iterative reconstruction technique was employed. The dose-lengt h product was 605.33 mGy-cm. 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 There are scattered areas of low attenuation in the cerebral white matter. There is no intracranial hemorrhage, acute infarction, or abnormal intracranial mass lesion. The ventricles are normal in size. There are likely changes of ocular lens replacement surgeries. There is a left frontal scalp hematoma. There is mucosal thickenin g in the paranasal sinuses. The mastoid air cells are normal. IMPRESSION: 1. 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 2. Stable moderate nonspecific cerebral white matter disease, which likely represents chronic small v essel ischemic disease. Reviewed, dictated and finalized at location A. HBORHOOD AIDE IMPRESSION: 1. 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 2. Stable moderate nonspecific cerebral white matter disease, which likely repr esents chronic small vessel ischemic disease.
--- NOTE | ~2024-05-10 | CT_ITS ---
EXAMINATION: CTA abd aorta runoff DATE: 05/10/2024 11:27 INDICATION: Abdomen and pelvis injury. Left thigh hematoma. TECHNIQUE: Computed tomographic angiography (CTA) of the abdominal, pelvis, and both lower extremitie s was performed with 150 mL Omnipaque-350 intravenous contrast. Automated exposure control and iterat magan reconstruction technique were employed. The dose-length product was 851.21 mGy-cm. Maximum intens ity projection 3D-reconstructions of the arteries were created by the technologist on a separate work station. COMPARISON: CT 04/03/2024 FINDINGS: ABDOMINAL AORTA AND ITS BRANCHES: There is a 3.6 cm fusiform infrarenal aortic aneurysm. There is no significant stenosis of celiac axi s, superior mesenteric artery, the renal arteries, or inferior mesenteric artery. PELVIC VASCULATURE: There is no significant stenosis of the right common iliac artery, right external iliac artery, right internal iliac artery. There is a stent graft in the left common iliac artery and external iliac art tristan. 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 There is total occlusion of p roximal left internal iliac artery with occlusion devices. There is an occlusion device in the left e xternal iliac aneurysm sac. RIGHT LOWER EXTREMITY VASCULATURE: There is no significant stenosis of common femoral artery, profunda femoral artery, superficial femor al artery. Right popliteal artery and the lower leg arteries are not opacified, likely due to contras t timing. LEFT LOWER EXTREMITY VASCULATURE: There is no significant stenosis of common femoral artery, profunda femoral artery, superficial femor al artery. Left popliteal artery and the lower leg arteries are not well opacified, likely due to con trast timing. There is enlargement of the left anterior thigh musculature involving the vastus interm edius and vastus lateralis. There is a pseudoaneurysm in the anterior left thigh musculature at the j unction of the vastus intermedius and vastus lateralis. ADDITIONAL FINDINGS: The liver and spleen are normal. There are gallstones in the gallbladder, which is distended. There i s a gastrostomy tube in expected position. The pancreas, adrenal glands, and kidneys are normal. Ther e are no dilated loops of bowel. The appendix is normal. There are no pathologically enlarged lymph n odes. There is no free intraperitoneal fluid. There is a lipoma involving the left hip adductor muscl es. IMPRESSION: 1. Pseudoaneurysm at the junction of left vastus intermedius and vastus lateralis muscles with enlar gement of the muscles, consistent with hematoma. 2. 3.6 cm fusiform infrarenal aortic aneurysm. 3. 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 4. Poor contrast opacification of the popliteal arteries and no arterial contrast opacification in th e lower legs due to suboptimal contrast timing. Reviewed, dictated and finalized at location A. PPING MACHINE OPERATOR IMPRESSION: 1. Pseudoaneurysm at the junction of left vastus intermedius and vastus latera lis muscles with enlargement of the muscles, consistent with hematoma. 2. 3.6 cm fusiform infrarenal aortic aneurysm. 3. 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 4. Poor contrast opacification of the popliteal arteries and no arterial contra st opacification in the lower legs due to suboptimal contrast timing.
--- NOTE | ~2024-05-10 | CT_ITS ---
EXAMINATION: CTA chest DATE: 05/10/2024 11:27 INDICATION: Hypotension. Fall. TECHNIQUE: Computed tomographic angiography (CTA) of the chest was performed with 150 mL Omnipaque-35 0 intravenous contrast. Automated exposure control and iterative reconstruction technique were employ ed. The dose-length product was 851.21 mGy-cm. Maximum intensity projection 3D-reconstructions of the aorta and other arteries were constructed by the technologist on a separate workstation. COMPARISON: Chest CT 04/03/2024 FINDINGS: There is mild atelectasis bilaterally. There is a small left pleural effusion. Cardiomegaly is noted. There are coronary artery calcifications. No pericardial effusion. There are changes of ao rtic valve replacement. There is ectasia of ascending aorta measuring 4.3 cm. There is no pulmonary e mbolus. There are bilateral shoulder arthroplasties. There is thoracic dextroscoliosis. There is briseida re cervical and thoracic spondylosis. IMPRESSION: 1. Small left pleural effusion. Reviewed, dictated and finalized at location A. S BLOWER
--- NOTE | ~2024-05-10 | XR_ITS ---
EXAMINATION: XR chest 1V portable DATE: 05/10/2024 10:31 INDICATION: Hypotension. Fall. TECHNIQUE: A single frontal view of the chest was obtained on 2 radiographs. COMPARISON: Chest 2 views 05/05/2024, chest CT 04/03/2024 FINDINGS: There is no pneumonia, pleural effusion, or pneumothorax. Cardiomegaly is noted. There are changes of aortic valve replacement. There are bilateral shoulder arthroplasties. IMPRESSION: 1. Cardiomegaly. Reviewed, dictated and finalized at location A. TEACHER IMPRESSION: 1. Cardiomegaly.
--- OUTSIDE RECORDS SUMMARY | 2024-05-10 09:14 | XMS_ITS | Encounter Summary ---
Author Organization [facility] Healthcare Address [address] [place] [address] Care Team Providers Care Shipping Agent Name Role Phone Martinez Pace MD Primary Care Provider Dion Abraham MD Unavailable [phone] Basil Adhikari MD Unavailable [phone] Encounter Details Date Type Department Care Team (Late st Contact Info) Description 06/11/2017 Telephone [facility] Operating Room [address] [place] [address] Sara Tipton Social History Tobacco Use Types Packs/Day Years Used Date Smoking Tobacco: Former Alcohol Use Standard Drinks/Week Comments Yes 0 (1 standard drink = 0.6 oz pur e alcohol) Sex and Gender Information Value Date Recorded Sex Assigned at Not on file Legal Sex Male 12:56 AM [employer] Gender Identity Not on file Sexual Orientation Straight 10/21/2019 9: 52 AM CDT documented as of this encounter Plan of Treatment Not on file documented as of this encounter Visit Diagnoses Not on filedocumented in this encounter Care Teams Shipping Agent Relationship Specialty Start Date End Date Martinez Pace MD [address] [facility] [address] [place] [address] PCP - General 05/02/16 Dion Abraham MD [address] [place] [address] Referring Physician Cardiology 02/18/24 Basil Adhikari MD [address] [facility] [address] [place] [address] Consulting Physician Cardiothoracic Surgery 02/19/24 documented as of this encounter
--- OUTSIDE RECORDS SUMMARY | 2024-05-10 09:14 | XMS_ITS | CONTINUITY OF CARE DOCUMENT ---
Author Name meet dsouza Address Unknown Organization [facility] Address [id number] [place] [address] [address] [place] [address] Phone [phone] Care Team Providers Care Liaison Inspection Laboratory Assistant Name Role Phone Dion Abraham MD Unavailable ERIN VAZ MD Unavailable ERIN VAZ MD Unavailable [phone] PROBLEMS Condition Status Date Provider Notes PVD; active Dion Abraham MD CAD active Dion Abraham MD Aneurysm of iliac artery active Dion beebe MD Diastolic CHF active Dion Abraham MD [address] 40 B12 deficiency active Dion Abraham MD neg foalte Neuropathic pain active Dion Abraham MD lo w b12, neg rpr Valvular heart disease active Dion Abraham MD Aortic aneurysm completed - Dion Abraham MD [...] Hyperlipidemia;NEG CRP;lpa 142 active Dion Abraham MD Screening active Dion Abraham MD Tobacco use, quit [...] MD Pulsatile tinnitus, bilateral completed - Dion Abraham MD ENCOUNTERS Date Type Provider Location Encounter Diag nosis - In-person encounter Office Visit Fredrick Peña MD [facility] - In-person encounter Office Visit Dion Abraham MD [facility] Pulsatile tinnitus, bilateral - In-person encounter Office Visit Dion Abraham MD [facility] Neuropathic painAortic aneurysmTobacco use, quitAortic root aneursymnm - In-person encounter Office Visit Dion Abraham MD [facility] B12 deficiencyArrhythmia;NML TSHScreeningTobacco use, quitFAMILY HISTORY OF HEART DISEASECerebral atherosclerosisCVA;lacuanr; plaquingProstatismBACK PAIN;CHRONIC - In-person encounter Office Visit Dion Abraham MD [facility] Sleep apneaHistory of deep venous thrombosisHx of pulmonary embolismArrhythmia;NML TSHAV block, 1st degree;not due drugs;neg tshHypothyroidismHyperlipid emia;NEG CRP;lpa 142 - In-person encounter Office Visit Dion Abraham MD [facility] Diastolic CHFB12 deficiencyNeuropathic painValvular heart diseaseAortic aneurysm VITAL SIGNS Date Observation Value Provider Body Mass Index (Ratio) 24.84 kg/m2 Renato Rosenthal OIL EXPLORATION ENGINEER weight E&M 163.4 [lb_av] Evan Jonathan blood pressure, diastolic 65 mm[Hg] Riaz pizarro Jonathan blood pressure, systolic 109 mm[Hg] Riazl dahlia Jonathan oxygen saturation, oximetry 97 % Evan Huffmanam pulse rate 65 /min Evan Jonathan respiratory rate E&M 14 /min Evan stallworth blood pressure, cuff size regular Riaz pizarro [place] height E&M 68 [in_i] Evan [place] Body Mass Index (Ratio) 24.93 kg/m2 Ana Abraham MD blood pressure, diastolic 60 mm[Hg] Manjinder anderson [facility] blood pressure, systolic 100 mm[Hg] Daphnie comer [facility] blood pressure, cuff size regular Manjinder anderson [facility] oxygen saturation, oximetry 92 % Roberta [facility] pulse rate 62 /min Roberta [facility] weight E&M 164 [lb_av] Roberta [facility] height E&M 68 [in_i] Roberta [facility] Body Mass Index (Ratio) 24.17 kg/m2 Ana Abraham MD pulse rate 59 /min Dee Borja blood pressure, cuff size regular [facility], diastolic 68 mm[Hg] Ta bitha Lisman blood pressure, systolic 114 mm[Hg] Tab itha [...] Ja rret blood pressure, systolic 123 mm[Hg] [facility] pulse rate 55 /min Russel oxygen saturation, oximetry 93 % Russel respiratory rate E&M 14 /min Rusesl weight E&M 162 [lb_av] Russel y height E&M 68 [in_i] [...] er height E&M 68 [in_i] Delilah [facility] ALLERGIES No Known Drug Allergies HISTORY [...] alcohol use, type gin Jaylene Na lluri OIL EXPLORATION ENGINEER alcohol use yes Jaylene Nalluri OIL EXPLORATION ENGINEER smoking, year quit 1971 Jaylene N alluri OIL EXPLORATION ENGINEER number of years as a smoker 20 a Jaylene Nalluri OIL EXPLORATION ENGINEER smoking history, total pack/day 1.5 ppd Jaylene Nalluri OIL EXPLORATION ENGINEER cigarette use yes Jaylene Nallur i OIL EXPLORATION ENGINEER smoking status Former smoker Jaylene Sterling uri OIL EXPLORATION ENGINEER personal history of marijuana use no Dion [...] ivy MD alcohol use yes Dion Serotjared Light smoking, year quit 1971 Dion miller MD number of years as a smoker 20 a Dion Abraham MD smoking history, total pack/day 1.5 ppd Dion Abraham MD cigarette use yes Dion Abraham MD smoking status Former smoker Dion coleman MD personal history of marijuana use no Verah Bonareri OIL EXPLORATION ENGINEER drug use no Verah Bonareri OIL EXPLORATION ENGINEER alcohol use, average drinks per day 2 /d Verah Bonareri OIL EXPLORATION ENGINEER alcohol use, type gin Verah Janelle reri OIL EXPLORATION ENGINEER alcohol use yes Verah Bonareri OIL EXPLORATION ENGINEER smoking, year quit 1971 Vermauricio Bon areri OIL EXPLORATION ENGINEER number of years as a smoker 20 a Verah Bonareri OIL EXPLORATION ENGINEER smoking history, total pack/day 1.5 ppd Verah Bonareri OIL EXPLORATION ENGINEER cigarette use yes Verah Bonareri OIL EXPLORATION ENGINEER smoking status Former smoker Verah Bonare ri OIL EXPLORATION ENGINEER drug use no Tara Ventimig juarez [facility] alcohol use, type gin Tara Boyd timiglia [facility] alcohol use, average drinks per day 2 /d Tara Ventimiglia [employer]ER alcohol use yes Tara Ventimig juarez [employer] number of years as a smoker 20 a Delilah Udayer smoking history, total pack/day 1.5 ppd Delilah Udayer smoking, year quit 1971 Delilah doll cigarette use yes Delilah Maryellen keane smoking status Former smoker Delilah Bradford nfelder FUNCTIONAL STATUS Date Observation Value Provider HRA, CV Assess/Plan, Angina (inactive) Management Plan continue current therapy Jaylenelucila Rosenthal OIL EXPLORATION ENGINEER HRA, CV Assess/Plan, Angina (inactive) Management Plan continue current therapy Dion Abraham MD HRA, CV Assess/Plan, Angina (inactive) Management Plan continue current therapy Dion Abraham MD INSURANCE PROVIDERS Payer name Policy type / Coverage type [place] [employer] [place] party ID [facility] [id number] ADVANCE DIRECTIVES Name Date DISCUSSED - NO DECISION MADE TREATMENT PLAN Date Name Performer [id number],C,add replaceme nt therapy [facility] [id number],C,Will add magen min B12 [facility] [id number],C,R eported history of MVP will do f/u echo [facility] [id number],C,A t 44 mm per echo 2 years ago at [facility]. Will do f/u echo for further evalution. continue BP control and statin therapy [facility] [id number],C,F ound on recent imaging at [facility]. Patient reports at 3.3cm. We will obtain report. If stable will plan for follow up imaging in a year. Patient BP well controlled at visit today. Will add statin as LDL 110. Taramaryann Montesinos [facility] Cardiology: a dd replacement therapy Jaylene Nalluri OIL EXPLORATION ENGINEER Cardiology: H is updated medication list for this problem includes: Rosuvastatin 10 Mg Tablet (Rosuvastatin) ..... Take 1 tablet by mouth once a day Jaylene Nalluri OIL EXPLORATION ENGINEER Cardiology: p ro 328, ef 40 by cath Jaylene Erasmoluri OIL EXPLORATION ENGINEER Cardiology: T he patient is using CPAP on a regular basis. The patient has been benefiting from therapy and should continue use. Jaylene Nalluri OIL EXPLORATION ENGINEER Cardiology: s everre pvd dital righ leg B TK Jaylene Nalluri OIL EXPLORATION ENGINEER Cardiology:Stable with no angina Jaylene Nalluri OIL EXPLORATION ENGINEER Cardiology: 5 .4 f piper with Jaylene Nalluri TAYLOR Cardiology: 3 .5 by 4.5 left iliac, [...] pre pt Dion Abraham MD Cardiology:on 12 Dion Abraham MD Cardiology: m ild tr and [...] 2400, posst pet H julius Abraham MD [facility] aaa gram Dion Abraham MD Cardiology;[facility] with root a and aaa gram Dion Abraham MD Cardiology;[facility] with root aand aaa gram : e f 65 pro 328 Dion Abraham MD Cardiology;[facility] with root a and aaa gram Dion Abraham MD Cardiology;[facility] with root aand aaa gram :nm psa pre pt Dion Arbaham MD Cardiology;[facility] with root aand aaa gram : 3 .5 by 4.5 left iliac, neg aaa Dion Serotjared SIEGEL Cardiology;[facility] with root aand aaa gram :no gall stone n eg aaa m eg streeed 2020 per pt n eg egfr, neg a1c and uacr Dion Serotjared SIEGEL Cardiology;[facility] with root a and aaa gram Dion Abraham MD Cardiology;[facility] with root aand aaa gram : 5 .4 Dion Serotjared SIEGEL Cardiology;[facility] with root aand aaa gram : a ve 56 low 36 t acky braday n svt and svt Dion Abraham MD Cardiology;[facility] with root aand aaa gram : 5 .4 Dion Serotjared SIEGEL Cardiology;[facility]hc with root aand aaa gram : [...] benefiting from therapy and should continue use. Doin Abraham MD Cardiology:ave 56 lo w 36 [...] NP Cardiology:add replacement thera py Tara Ventimiglia [facility] Cardiology:Will add vitamin B12 Tara Ventimiglia 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 Cardiology:At 44 mm per echo 2 years ago at [facility]. Will do f/u echo for further evalution. continue BP control and statin therapy Tara Montesinos [facility] Cardiology:Found on recent imaging at OSH. Patient reports at 3.3cm. We will obtain report. If stable will plan for follow up imaging in a year. Patient BP well controlled at visit today. Will add statin as LDL 110. Tara Montesinos [facility] Date Name PROTHROMBIN TIME WIT H INR [...] d on Dion Abraham MD [facility] NPR PER MATTHEW REF#: [id number] completed EKG Dion Abraham MD complete d EKG Dion Abraham MD complete d
--- OUTSIDE RECORDS SUMMARY | 2024-05-10 09:14 | XMS_ITS ---
Author Organization [facility] Address [address] [place] [address] Care Team Providers Care Weed Sprayer Name Role Phone Martinez Pace MD Primary Care Provider Dion Abraham MD Unavailable [phone] Basil Adhikari MD Unavailable [phone] Active Problems Problem Noted Date Diagnosed Date [...] (11/24/2018): Added automatically from request for surgery [id number] Adenomatous polyp of cecum 06/18/2018 Overview (06/18/2018): Added automatically from request for surgery [id number] [facility] current use of anticoagulant therapy 0 11/07/2016 [...]
--- OUTSIDE RECORDS SUMMARY | 2024-05-10 09:15 | XMS_ITS | Referral Summary ---
Author Organization [facility] al Address [address] [place] [address] Care Team Providers Care Avionics Supervisor Name Role Phone Martinez Pace MD Primary Care Provider Dion Abraham MD Unavailable [phone] Basil Adhikari MD Unavailable [phone] Encounters Date Type Department Care Team Description 04/03/2024 9:45 AM SPECTROGRAPHER - 04/20/2024 3:00 PM SPECTROGRAPHER Hospital Encounter [facility] [address] [place] [address] Pedro Senior MD Martin, Robert [...] to an Rehab facility 04/16/2024 9:04 AM SPECTROGRAPHER Anesthesia Event [facility] [address] [place] [phone] Sara Schwartz MD Shelley, Joshua Michael, CRNA 04/16/2024 9:00 AM SPECTROGRAPHER - 04/16/2024 9:45 AM SPECTROGRAPHER Surgery [facility] [address] [place] [phone] Roderick Bedolla MD PERCUTANEOUS ENDOSCOPIC GASTROSTOMY 04/09/2024 Orders Only [facility]ovascular [facility] Thoracic Surgery [address] [place] [address] [address] [place] [address] Ev Freed NP Aneurysm of ascending aorta without rupture (HCC) (Primary Dx); Iliac aneurysm (CMS/HCC) (HCC); Aortic root aneurysm; Other pulmonary embolism without acute cor pulmonale, unspecified chronicity (HCC) 04/03/2024 Orders Only [facility] Hospitalists [address] [place] [phone] Zoran Leyva DO 03/30/2024 Orders Only Cardiovascular and Thoracic Surgery [address] [place] [address] [address] [place] [address] Candis Chaparro RN Aneurysm of ascending aorta without rupture (HCC) (Primary Dx); Iliac artery aneurysm (CMS/HCC) (HCC) 03/29/2024 Telephone Cardiovascular and Thoracic Surgery [address] [place] [address] [address] [address] Basil Adhikari MD 03/18/2024 9:05 AM SPECTROGRAPHER - 03/27/2024 3:13 PM SPECTROGRAPHER Hospital Encounter [address] [address] Basil Adhikari MD Iliac aneurysm (CMS/HCC) (HCC) (Primary Dx); Aortic root aneurysm; S/P AVR Discharge Disposition: Discharge to an Rehab facility 03/22/2024 2:54 PM SPECTROGRAPHER Anesthesia Event [facility] [address] [place] [phone] Gamal Asher MD PhD Deyvi Urrutia MD 03/22/2024 3:00 PM SPECTROGRAPHER - 03/22/2024 5:15 PM SPECTROGRAPHER Surgery [facility] [address] [place] [phone] Basil Adhikari MD Left internal iliac plug, left iliac aneurysm repair [[id number] (CPT )] 03/18/2024 12:10 PM SPECTROGRAPHER Ancillary Procedure [facility] Operating Room [address] [place] [phone] 03/18/2024 12:47 PM SPECTROGRAPHER Anesthesia Event [facility] Operating [facility] [address] [place] [phone] Derek Marin MD PhD Gamal Asher MD PhD 03/18/2024 1:30 PM SPECTROGRAPHER - 03/18/2024 7:50 PM SPECTROGRAPHER Surgery [facility] Operating Room [address] [place] [phone] Basil Adhikari MD Mini ascending aortic root replacement 03/15/2024 11:50 AM SPECTROGRAPHER Lab [facility] Outpatient Lab [address] [place] [phone] Aneurysm of ascending aorta without rupture (HCC); Pre-op evaluation 03/15/2024 10:00 AM SPECTROGRAPHER Office Visit Cardiovascular and Thoracic Surgery [address] [place] [address] [place] [phone] Basil Adhikari MD Pre-op evaluation (Primary Dx); Aneurysm of ascending aorta without rupture (HCC) 03/11/2024 Telephone Cardiovascular and Thoracic Surgery [address] [place] [address] [address] [address] Basil Adhikari MD [employer] appt 02/11/2024 Orders Only [facility] Cardiac Catheterization Lab [address] [place] [address] Fredrick Peña MD Iliac aneurysm (CMS/HCC) (HCC) (Primary Dx) from Last 3 Months Allergies No known [...] 1 tablet (88 mcg total) by mouth rn lpn lvn before breakfast 30 tablet 5 Active midodrine [...] (11/24/2018): Added automatically from request for surgery [id number] Adenomatous polyp of cecum 06/18/2018 Overview (06/18/2018): Added automatically from request for surgery [id number] [facility] current use of anticoagulant therapy 0 11/07/2016 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 Never 04/06/2024 Do you belong to any clubs o r organizations such as hoahaoism groups, unions, fraternal or athletic groups, or [...] any time in the past 12 m [facility], were you homeless or living [...] on file Legal Sex Male 12:56 AM SPECTROGRAPHER Gender Identity Not on file Sexual Orientation Straight 10/21/2019 9: 52 AM CDT Last Filed Vital Signs Vital Sign Reading Time Taken Comments Blood Pressure 96/54 04/20/2024 12:33 PM SPECTROGRAPHER Pulse 63 04/20/2024 12:33 PM SPECTROGRAPHER Temperature 36.1 C (97 F) 04/20/2024 12:33 PM SPECTROGRAPHER Respiratory Rate 16 04/20/2024 12:33 PM SPECTROGRAPHER Oxygen Saturation 98% 04/20/2024 12:33 PM SPECTROGRAPHER Inhaled Oxygen Concentration - - Weight 66.9 kg (147 lb 7.8 oz) 04/19/2024 8:12 A M SPECTROGRAPHER Height 172.7 cm (5' 8 ) 04/16/2024 8:23 AM SPECTROGRAPHER Body Mass Index 22.43 04/16/2024 8:23 AM SPECTROGRAPHER Plan of Treatment Not on file Medical Devices Implanted Type Area Sales Lead Generator Device Identifier Shelf Expiration Date Model / Serial / Lot Leyva Lifesciences Konect Resilia Aortic Valved Conduit 27mm [id number] - [id number] - [id number] Implanted:Qty: 1 on 03/18/2024 by Basil Adhikari MD at [facility] Prosthetic Valve N/A: Aortic Valve Leyva [employer]iences 01/06/2027 [id number] / [id number] / [employer] 18f Manta Vascular Closure Device 2114 - S0 - [id number] Implanted:Qty: 1 on 03/22/2024 by Basil Adhikari MD at [facility] Vascular Closure Device [employer] Inc 01/06/2025 2115 / 0 / [id number] Cement Bone Cmw 2 20 Gm Fast Set Sterile - [id number] Implanted:Qty: 1 on 2017 by Brennon Davis MD at [facility] Right: Shoulder Depuy [employer]opaed[employer] Inc 10/15/2019 3322-02 0 / / [id number] Component Glenoid Comprehensive Regenerex Titanium Clay Porous Shoulder Modular Hybrid Post - [id number] Implanted:Qty: 1 on 2017 by Brennon Davis MD at [facility] Right: Shoulder [employer]avita [employer] Inc [id number] 01/21/2027 PT-1139 50 / / [id number] Component Glenoid Comprehensive Hybrid Large H4 Mm Shoulder Base Modular - [id number] Implanted:Qty: 1 on 2017 by Brennon Davis MD at [facility] Right: Shoulder [employer] [id number] 03/23/2022 [id number] / / [id number] Stem Humeral Comprehensive Porous Mini L83 Mm Od15 Mm Shoulder Reverse System - [id number] Implanted:Qty: 1 on 2017 by Brennon Davis MD at [facility] Right: Shoulder [employer] Inc [id number] 04/10/2027 [id number] / / [id number] Head Humeral Bio-Modular [place] 4 Mm Offset H22 Mm Od54 Mm Shoulder Sterile - [id number] Implanted:Qty: 1 on 2017 by Brennon Davis MD at [facility] Right: Shoulder [employer] Inc 08/16/2019 [id number] / / [id number] Cryolife Inc Graft Biological Cardiovascular Photofix 6x8cm Acellular Dermis Pfp 6x8 - [id number] Implanted:Qty: 1 on 03/18/2024 by Basil Adhikari MD at [facility] N/A: Aorta [employer]olife Inc 10/24/2025 PFP 6X8 / / [id number] Arthrex Inc Device Closure Tigertape Sternal Cerclage Blunt Needle Ar-7289t - [id number] Implanted:Qty: 1 on 03/18/2024 by Basil Adhikari MD at [facility] N/A: Sternum Arthrex Inc 12/14/2028 AR-7289 T / / [id number] Arthrex Inc Device Closure Tigertape Sternal Cerclage Blunt Needle Ar-7289t - [id number] Implanted:Qty: 1 on 03/18/2024 by Basil Adhikari MD at [facility] N/A: Sternum Arthrex Inc 12/14/2028 AR-7289 T / / [id number] Estrada Vascular Plug Occluder Cvasc Embl Self Expanding Amplatzer [id number] Nitinol 9-Avp2-014 - S0 - [id number] Implanted:Qty: 1 on 03/22/2024 by Basil Adhikari MD at [facility] Left: Internal Iliac (Hypogastr ic) Artery Estrada Vascular [id number] 05/14/2025 9-AVP2- 014 / 0 / [id number] [employer] Excluder 18mm 14.5-16.5mm 11.5cm Stent Abrasion Resistant [id number] - [id number] - [id number] Implanted:Qty: 1 on 03/22/2024 by Basil Adhikari MD at [facility] Left: External Iliac Artery Wl [employer] [id number] 11/17/2026 [id number] 00 / [id number] / Wl [employer] Stent Graft Thoracic Conformable Tag [id number] - S0 - [id number] Implanted:Qty: 1 on 03/22/2024 by Basil Adhikari MD at [facility] Left: External Iliac Artery Wl [employer] [id number] 08/14/2026 [id number] 10 / 0 / Amplatzer Imaging Specialist Lisa Amplatzer 14mm 100cm 8mm 1 Layer Wire Mesh 1 Lobe Design Optimal 9-Plug-014 - S0 - [id number] Implanted:Qty: 1 on 03/22/2024 by Basil Adhikari MD at [facility] Left: Internal Iliac (Hypogastr ic) Artery Amplatzer Imaging Specialist Lisa 03/16/2028 9-PLUG- 014 / 0 / [id number] Procedures Procedure Name Priority Date/Time Associated Diagnosis Comments EGFR Routine 04/20/2024 12:20 AM SPECTROGRAPHER MAGNESIUM Routine 04/20/2024 12:20 AM SPECTROGRAPHER RENAL FUNCTION PANEL Routine 04/20/2024 12:20 AM SPECTROGRAPHER EGFR Routine 04/19/2024 12:41 AM SPECTROGRAPHER MAGNESIUM Routine 04/19/2024 12:41 AM SPECTROGRAPHER RENAL FUNCTION PANEL Routine 04/19/2024 12:41 AM SPECTROGRAPHER ECG 12-LEAD Routine 04/18/2024 10:45 AM SPECTROGRAPHER ECG 12-LEAD STAT 04/18/2024 7:41 AM SPECTROGRAPHER ECG 12-LEAD STAT 04/18/2024 3:01 AM SPECTROGRAPHER EGFR Routine 04/18/2024 12:24 AM SPECTROGRAPHER MAGNESIUM Routine 04/18/2024 12:24 AM SPECTROGRAPHER RENAL FUNCTION PANEL Routine 04/18/2024 12:24 AM SPECTROGRAPHER PERCUTANEOUS ENDOSCOPIC GASTROSTOMY 04/16/2024 9:04 AM SPECTROGRAPHER Dysphagia, unspecified type EGD 04/16/2024 7:56 AM SPECTROGRAPHER EGFR Routine 04/15/2024 12:25 AM SPECTROGRAPHER PROTIME-INR Routine 04/15/2024 12:25 AM SPECTROGRAPHER RENAL FUNCTION PANEL Routine 04/15/2024 12:25 AM SPECTROGRAPHER POCT GLUCOSE DEVICE Routine 04/13/2024 1 0:44 PM SPECTROGRAPHER FL MODIFIED BARIUM SWALLOW W VIDEO IP Routine 04/13/2024 2:06 PM SPECTROGRAPHER EGFR Routine 04/12/2024 1:38 AM SPECTROGRAPHER DIFFERENTIAL AUTO Routine 04/12/2024 1:3 8 AM SPECTROGRAPHER MAGNESIUM Routine 04/12/2024 1:38 AM SPECTROGRAPHER CBC WITH AUTO DIFFERENTIAL Routine 04/12/2024 1:38 AM SPECTROGRAPHER RENAL FUNCTION PANEL Routine 04/12/2024 1:38 AM SPECTROGRAPHER EGFR Routine 04/10/2024 12:21 AM SPECTROGRAPHER CBC WITHOUT DIFFERENTIAL Routine 04/10/2024 12:21 AM SPECTROGRAPHER MAGNESIUM Routine 04/10/2024 12:21 AM SPECTROGRAPHER RENAL FUNCTION PANEL Routine 04/10/2024 12:21 AM SPECTROGRAPHER EGFR Routine 04/09/2024 12:26 AM SPECTROGRAPHER CBC WITHOUT DIFFERENTIAL Routine 04/09/2024 12:26 AM SPECTROGRAPHER MAGNESIUM Routine 04/09/2024 12:26 AM SPECTROGRAPHER RENAL FUNCTION PANEL Routine 04/09/2024 12:26 AM SPECTROGRAPHER US CAROTIDS DUPLEX BILATERAL IP Routine 04/08/2024 5:50 PM SPECTROGRAPHER EGFR Routine 04/08/2024 12:52 AM SPECTROGRAPHER DIFFERENTIAL AUTO Routine 04/08/2024 12: 52 AM SPECTROGRAPHER MAGNESIUM Routine 04/08/2024 12:52 AM SPECTROGRAPHER RENAL FUNCTION PANEL Routine 04/08/2024 12:52 AM SPECTROGRAPHER CBC WITH AUTO DIFFERENTIAL Routine 04/08/2024 12:52 AM SPECTROGRAPHER MRI BRAIN WO CONTRAST IP Routine 04/08/2024 12:24 AM SPECTROGRAPHER EGFR Routine 04/07/2024 12:51 AM SPECTROGRAPHER DIFFERENTIAL AUTO Routine 04/07/2024 12: 51 AM SPECTROGRAPHER RENAL FUNCTION PANEL Routine 04/07/2024 12:51 AM SPECTROGRAPHER CBC WITH AUTO DIFFERENTIAL Routine 04/07/2024 12:51 AM SPECTROGRAPHER HEMOGLOBIN AND HEMATOCRIT Timed 04/06/2024 5:18 PM SPECTROGRAPHER XR CHEST 1 VIEW IP Routine 04/06/2024 5:06 AM SPECTROGRAPHER ADD ON LAB TEST Add-On 04/06/2024 3:29 AM SPECTROGRAPHER RENAL FUNCTION PANEL Routine 04/06/2024 2:29 AM SPECTROGRAPHER EGFR Routine 04/06/2024 2:29 AM SPECTROGRAPHER DIFFERENTIAL AUTO Routine 04/06/2024 2:2 9 AM SPECTROGRAPHER CBC WITH AUTO DIFFERENTIAL Routine 04/06/2024 2:29 AM SPECTROGRAPHER PROCALCITONIN Routine 04/06/2024 2:29 AM SPECTROGRAPHER BLOOD GAS, VENOUS Routine 04/06/2024 2:1 5 AM SPECTROGRAPHER POCT GLUCOSE DEVICE Routine 04/05/2024 1 2:05 PM SPECTROGRAPHER XR KUB ED Urgent/IP Urgent 04/05/2024 10:23 AM SPECTROGRAPHER FL MODIFIED BARIUM SWALLOW W VIDEO IP Routine 04/05/2024 9:52 AM SPECTROGRAPHER POCT GLUCOSE DEVICE Routine 04/05/2024 4 :30 AM SPECTROGRAPHER MAGNESIUM Routine 04/05/2024 3:39 AM SPECTROGRAPHER EGFR Routine 04/05/2024 3:39 AM SPECTROGRAPHER CBC WITHOUT DIFFERENTIAL Routine 04/05/2024 3:39 AM SPECTROGRAPHER RENAL FUNCTION PANEL Routine 04/05/2024 3:39 AM SPECTROGRAPHER EGFR STAT 04/04/2024 4:18 PM SPECTROGRAPHER RENAL FUNCTION PANEL STAT 04/04/2024 4:18 PM SPECTROGRAPHER OSMOLALITY, URINE Routine 04/04/2024 6:1 1 AM SPECTROGRAPHER CREATININE, URINE, RANDOM Routine 04/04/2024 6:11 AM SPECTROGRAPHER SODIUM, URINE, RANDOM Routine 04/04/2024 6:11 AM SPECTROGRAPHER EGFR Routine 04/04/2024 2:56 AM SPECTROGRAPHER RENAL FUNCTION PANEL Routine 04/04/2024 2:56 AM SPECTROGRAPHER TSH Routine 04/04/2024 2:56 AM SPECTROGRAPHER CBC WITHOUT DIFFERENTIAL Routine 04/04/2024 2:56 AM SPECTROGRAPHER EGFR Timed 04/03/2024 5:59 PM SPECTROGRAPHER RENAL FUNCTION PANEL Timed 04/03/2024 5:59 PM SPECTROGRAPHER MRSA ONLY (STAPHYLOCOCCUS AUREUS) PCR Routine 04/03/2024 3:55 PM SPECTROGRAPHER AEROBIC CULTURE AND GRAM STAIN Routine 04/03/2024 3:55 PM SPECTROGRAPHER ADD ON LAB TEST Add-On 04/03/2024 2:48 PM SPECTROGRAPHER ADD ON LAB TEST Add-On 04/03/2024 2:48 PM SPECTROGRAPHER ADD ON LAB TEST Add-On 04/03/2024 2:48 PM SPECTROGRAPHER ADD ON LAB TEST Add-On 04/03/2024 2:48 PM SPECTROGRAPHER TRANSTHORACIC ECHO (TTE) COMPLETE W DOPPLER/CF WO CONTRAST STAT 04/03/2024 2:46 PM SPECTROGRAPHER URIC ACID STAT 04/03/2024 11:06 AM SPECTROGRAPHER T4, FREE STAT 04/03/2024 11:06 AM SPECTROGRAPHER THYROID FUNCTION CASCADE STAT 04/03/2024 11:06 AM SPECTROGRAPHER CORTISOL STAT 04/03/2024 11:06 AM SPECTROGRAPHER OSMOLALITY, URINE Routine 04/03/2024 11: 06 AM SPECTROGRAPHER SODIUM, URINE, RANDOM Routine 04/03/2024 11:06 AM SPECTROGRAPHER EGFR STAT 04/03/2024 11:06 AM SPECTROGRAPHER URINALYSIS, MICROSCOPIC ONLY Routine 04/03/2024 11:06 AM SPECTROGRAPHER BILIRUBIN, DIRECT STAT 04/03/2024 11: 06 AM SPECTROGRAPHER CBC WITHOUT DIFFERENTIAL STAT 04/03/2024 11:06 AM SPECTROGRAPHER PROTIME-INR STAT 04/03/2024 11:06 AM SPECTROGRAPHER APTT STAT 04/03/2024 11:06 AM SPECTROGRAPHER PRO B-TYPE NATRIURETIC PEPTIDE STAT 04/03/2024 11:06 AM SPECTROGRAPHER LACTATE STAT 04/03/2024 11:06 AM SPECTROGRAPHER PHOSPHORUS STAT 04/03/2024 11:06 AM SPECTROGRAPHER MAGNESIUM STAT 04/03/2024 11:06 AM SPECTROGRAPHER COMPREHENSIVE METABOLIC PANEL STAT 04/03/2024 11:06 AM SPECTROGRAPHER TYPE AND SCREEN STAT 04/03/2024 11:06 AM SPECTROGRAPHER STREP PNEUMONIAE AG, URINE Routine 04/03/2024 11:06 AM SPECTROGRAPHER LEGIONELLA ANTIGEN, URINE Routine 04/03/2024 11:06 AM SPECTROGRAPHER URINALYSIS AND REFLEX TO MICROSCOPIC AND CULTURE Routine 04/03/2024 11:06 AM SPECTROGRAPHER XR CHEST 1 VIEW Critical/Life-T hreatening 04/03/2024 10:23 AM SPECTROGRAPHER XR CHEST 1 VIEW IP Routine 03/27/2024 6:38 AM SPECTROGRAPHER EGFR Routine 03/27/2024 12:27 AM SPECTROGRAPHER MAGNESIUM Routine 03/27/2024 12:27 AM SPECTROGRAPHER RENAL FUNCTION PANEL Routine 03/27/2024 12:27 AM SPECTROGRAPHER CBC WITHOUT DIFFERENTIAL Routine 03/27/2024 12:27 AM SPECTROGRAPHER URINALYSIS, MICROSCOPIC ONLY Routine 03/26/2024 11:53 AM SPECTROGRAPHER URINALYSIS AND REFLEX TO MICROSCOPIC AND CULTURE Routine 03/26/2024 11:53 AM SPECTROGRAPHER XR CHEST 1 VIEW IP Routine 03/26/2024 6:06 AM SPECTROGRAPHER EGFR Routine 03/26/2024 12:27 AM SPECTROGRAPHER MAGNESIUM Routine 03/26/2024 12:27 AM SPECTROGRAPHER RENAL FUNCTION PANEL Routine 03/26/2024 12:27 AM SPECTROGRAPHER CBC WITHOUT DIFFERENTIAL Routine 03/26/2024 12:27 AM SPECTROGRAPHER XR CHEST 1 VIEW IP Routine 03/25/2024 5:49 AM SPECTROGRAPHER EGFR Routine 03/25/2024 1:33 AM SPECTROGRAPHER MAGNESIUM Routine 03/25/2024 1:33 AM SPECTROGRAPHER RENAL FUNCTION PANEL Routine 03/25/2024 1:33 AM SPECTROGRAPHER CBC WITHOUT DIFFERENTIAL Routine 03/25/2024 1:33 AM SPECTROGRAPHER TYPE AND SCREEN Timed 03/25/2024 1:33 AM SPECTROGRAPHER XR CHEST 1 VIEW IP Routine 03/24/2024 8:05 AM SPECTROGRAPHER EGFR Routine 03/24/2024 2:16 AM SPECTROGRAPHER MAGNESIUM Routine 03/24/2024 2:16 AM SPECTROGRAPHER RENAL FUNCTION PANEL Routine 03/24/2024 2:16 AM SPECTROGRAPHER CBC WITHOUT DIFFERENTIAL Routine 03/24/2024 2:16 AM SPECTROGRAPHER XR CHEST 1 VIEW IP Routine 03/23/2024 6:41 AM SPECTROGRAPHER CRITICAL CARE Routine 03/23/2024 6:36 AM SPECTROGRAPHER Iliac aneurysm (CMS/HCC) (HCC) EGFR Routine 03/23/2024 1:16 AM SPECTROGRAPHER CALCIUM, IONIZED Routine 03/23/2024 1:16 AM SPECTROGRAPHER PROTIME-INR Routine 03/23/2024 1:16 AM SPECTROGRAPHER MAGNESIUM Routine 03/23/2024 1:16 AM SPECTROGRAPHER RENAL FUNCTION PANEL Routine 03/23/2024 1:16 AM SPECTROGRAPHER CBC WITHOUT DIFFERENTIAL Routine 03/23/2024 1:16 AM SPECTROGRAPHER CRITICAL CARE Routine 03/22/2024 8:16 PM SPECTROGRAPHER 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 Routine 03/22/2024 6 :38 PM SPECTROGRAPHER EGFR STAT 03/22/2024 6:30 PM SPECTROGRAPHER CALCIUM, IONIZED STAT 03/22/2024 6:30 PM SPECTROGRAPHER MAGNESIUM STAT 03/22/2024 6:30 PM SPECTROGRAPHER RENAL FUNCTION PANEL STAT 03/22/2024 6:30 PM SPECTROGRAPHER PROTIME-INR STAT 03/22/2024 6:30 PM SPECTROGRAPHER APTT STAT 03/22/2024 6:30 PM SPECTROGRAPHER CBC WITHOUT DIFFERENTIAL STAT 03/22/2024 6:30 PM SPECTROGRAPHER CRITICAL CARE Routine 03/22/2024 5:43 PM SPECTROGRAPHER Iliac aneurysm (CMS/HCC) (HCC) REVAS ENDOVASILIAC W STNT [id number] Routine 03/22/2024 4:52 PM SPECTROGRAPHER Iliac aneurysm (CMS/HCC) (HCC) POCT ACTIVATED CLOTTING TIME, HIGH RANGE Routine 03/22/2024 4:51 PM SPECTROGRAPHER POC BLOOD GAS AND CHEMISTRIES, VENOUS Routine 03/22/2024 4:29 PM SPECTROGRAPHER POCT ACTIVATED CLOTTING TIME, HIGH RANGE Routine 03/22/2024 4:10 PM SPECTROGRAPHER POCT ACTIVATED CLOTTING TIME, HIGH RANGE Routine 03/22/2024 4:00 PM SPECTROGRAPHER POCT ACTIVATED CLOTTING TIME, HIGH RANGE Routine 03/22/2024 3:56 PM SPECTROGRAPHER POCT ACTIVATED CLOTTING TIME, HIGH RANGE Routine 03/22/2024 3:28 PM SPECTROGRAPHER POCT ACTIVATED CLOTTING TIME, LOW RANGE Routine 03/22/2024 3:21 PM SPECTROGRAPHER LA AN PROCEDURE PLACEHOLDER Routine 03/22/2024 3:08 PM SPECTROGRAPHER LA AN ELECTIVE ENDOTRACHEAL AIRWAY Routine 03/22/2024 3:08 PM SPECTROGRAPHER PREPARE RBC STAT 03/22/2024 2:42 PM SPECTROGRAPHER XR CHEST 1 VIEW IP Routine 03/22/2024 7:26 AM SPECTROGRAPHER EGFR Routine 03/22/2024 1:34 AM SPECTROGRAPHER MAGNESIUM Routine 03/22/2024 1:34 AM SPECTROGRAPHER RENAL FUNCTION PANEL Routine 03/22/2024 1:34 AM SPECTROGRAPHER CBC WITHOUT DIFFERENTIAL Routine 03/22/2024 1:34 AM SPECTROGRAPHER TYPE AND SCREEN Timed 03/22/2024 1:34 AM SPECTROGRAPHER APTT STAT 03/21/2024 8:12 PM SPECTROGRAPHER APTT STAT 03/21/2024 12:40 PM SPECTROGRAPHER APTT Timed 03/21/2024 10:35 AM SPECTROGRAPHER XR CHEST 1 VIEW IP Routine 03/21/2024 7:43 AM SPECTROGRAPHER APTT STAT 03/21/2024 2:27 AM SPECTROGRAPHER EGFR Routine 03/21/2024 2:24 AM SPECTROGRAPHER MAGNESIUM Routine 03/21/2024 2:24 AM SPECTROGRAPHER RENAL FUNCTION PANEL Routine 03/21/2024 2:24 AM SPECTROGRAPHER CBC WITHOUT DIFFERENTIAL Routine 03/21/2024 2:24 AM SPECTROGRAPHER APTT STAT 03/20/2024 4:57 PM SPECTROGRAPHER APTT STAT 03/20/2024 9:27 AM SPECTROGRAPHER PROTIME-INR STAT 03/20/2024 9:27 AM SPECTROGRAPHER XR CHEST 1 VIEW IP Routine 03/20/2024 9:17 AM SPECTROGRAPHER EGFR Routine 03/20/2024 1:03 AM SPECTROGRAPHER MAGNESIUM Routine 03/20/2024 1:03 AM SPECTROGRAPHER CALCIUM, IONIZED Routine 03/20/2024 1:03 AM SPECTROGRAPHER RENAL FUNCTION PANEL Routine 03/20/2024 1:03 AM SPECTROGRAPHER CBC WITHOUT DIFFERENTIAL Routine 03/20/2024 1:03 AM SPECTROGRAPHER PREPARE RBC STAT 03/19/2024 4:56 PM SPECTROGRAPHER CTA ABDOMEN PELVIS W WO CONTRAST IP Routine 03/19/2024 9:06 AM SPECTROGRAPHER POTASSIUM LEVEL STAT 03/19/2024 6:48 AM SPECTROGRAPHER CRITICAL CARE Routine 03/19/2024 6:40 AM SPECTROGRAPHER 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 IP Routine 03/19/2024 6:37 AM SPECTROGRAPHER POCT GLUCOSE DEVICE Routine 03/19/2024 6 :01 AM SPECTROGRAPHER POCT GLUCOSE DEVICE Routine 03/19/2024 2 :13 AM SPECTROGRAPHER POCT GLUCOSE DEVICE Routine 03/19/2024 1 2:18 AM SPECTROGRAPHER EGFR Routine 03/19/2024 12:04 AM SPECTROGRAPHER MAGNESIUM Routine 03/19/2024 12:04 AM SPECTROGRAPHER CALCIUM, IONIZED Routine 03/19/2024 12:0 4 AM SPECTROGRAPHER RENAL FUNCTION PANEL Routine 03/19/2024 12:04 AM SPECTROGRAPHER CBC WITHOUT DIFFERENTIAL Routine 03/19/2024 12:04 AM SPECTROGRAPHER POCT GLUCOSE DEVICE Routine 03/18/2024 9 :02 PM SPECTROGRAPHER EXTUBATION Routine 03/18/2024 7:38 PM SPECTROGRAPHER BLOOD GAS, ARTERIAL STAT 03/18/2024 7 :23 PM SPECTROGRAPHER POCT GLUCOSE DEVICE Routine 03/18/2024 7 :12 PM SPECTROGRAPHER CRITICAL CARE Routine 03/18/2024 6:39 PM SPECTROGRAPHER 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 Routine 03/18/2024 6 :07 PM SPECTROGRAPHER XR CHEST 1 VIEW ED Urgent/IP Urgent 03/18/2024 4:41 PM SPECTROGRAPHER POCT GLUCOSE DEVICE Routine 03/18/2024 4 :27 PM SPECTROGRAPHER CRITICAL CARE Routine 03/18/2024 4:19 PM SPECTROGRAPHER EGFR STAT 03/18/2024 4:17 PM SPECTROGRAPHER APTT STAT 03/18/2024 4:17 PM SPECTROGRAPHER PROTIME-INR STAT 03/18/2024 4:17 PM SPECTROGRAPHER CBC WITHOUT DIFFERENTIAL STAT 03/18/2024 4:17 PM SPECTROGRAPHER BLOOD GAS, ARTERIAL STAT 03/18/2024 4 :17 PM SPECTROGRAPHER CALCIUM, IONIZED STAT 03/18/2024 4:17 PM SPECTROGRAPHER MAGNESIUM STAT 03/18/2024 4:17 PM SPECTROGRAPHER BASIC METABOLIC PANEL STAT 03/18/2024 4:17 PM SPECTROGRAPHER PHOSPHORUS STAT 03/18/2024 4:17 PM SPECTROGRAPHER PROTIME-INR STAT 03/18/2024 3:38 PM SPECTROGRAPHER FIBRINOGEN STAT 03/18/2024 3:38 PM SPECTROGRAPHER CBC WITHOUT DIFFERENTIAL STAT 03/18/2024 3:38 PM SPECTROGRAPHER APTT STAT 03/18/2024 3:38 PM SPECTROGRAPHER POC BLOOD GAS AND CHEMISTRIES, ARTERIAL Routine 03/18/2024 3:35 PM SPECTROGRAPHER POCT ACTIVATED CLOTTING TIME, HIGH RANGE Routine 03/18/2024 3:35 PM SPECTROGRAPHER POC BLOOD GAS AND CHEMISTRIES, ARTERIAL Routine 03/18/2024 2:41 PM SPECTROGRAPHER POCT ACTIVATED CLOTTING TIME, HIGH RANGE Routine 03/18/2024 2:40 PM SPECTROGRAPHER POC BLOOD GAS AND CHEMISTRIES, VENOUS Routine 03/18/2024 2:30 PM SPECTROGRAPHER SURGICAL PATHOLOGY Routine 03/18/2024 2: 09 PM SPECTROGRAPHER Aortic root aneurysm POC BLOOD GAS AND CHEMISTRIES, ARTERIAL Routine 03/18/2024 2:08 PM SPECTROGRAPHER POCT ACTIVATED CLOTTING TIME, HIGH RANGE Routine 03/18/2024 2:08 PM SPECTROGRAPHER POC BLOOD GAS AND CHEMISTRIES, ARTERIAL Routine 03/18/2024 1:50 PM SPECTROGRAPHER POCT ACTIVATED CLOTTING TIME, HIGH RANGE Routine 03/18/2024 1:49 PM SPECTROGRAPHER LA AN PROCEDURE PLACEHOLDER Routine 03/18/2024 1:41 PM SPECTROGRAPHER PULMONARY ARTERY CATH Routine 03/18/2024 1:41 PM SPECTROGRAPHER BW AN SHEATH INTRODUCER PERFORMABLE Routine 03/18/2024 1:41 PM SPECTROGRAPHER LA AN PROCEDURE PLACEHOLDER Routine 03/18/2024 1:40 PM SPECTROGRAPHER LA AN CENTRAL LINE QUADRUPLE LUMEN Routine 03/18/2024 1:40 PM SPECTROGRAPHER LA AN PROCEDURE PLACEHOLDER Routine 03/18/2024 1:39 PM SPECTROGRAPHER LA AN PROCEDURE PLACEHOLDER Routine 03/18/2024 1:38 PM SPECTROGRAPHER LA AN PROCEDURE PLACEHOLDER Routine 03/18/2024 1:37 PM SPECTROGRAPHER LA AN ELECTIVE ENDOTRACHEAL AIRWAY Routine 03/18/2024 1:37 PM SPECTROGRAPHER LA AN PROCEDURE PLACEHOLDER Routine 03/18/2024 1:29 PM SPECTROGRAPHER POCT ACTIVATED CLOTTING TIME, HIGH RANGE Routine 03/18/2024 1:11 PM SPECTROGRAPHER REPLACEMENT AORTIC ROOT 03/18/2024 12:46 PM SPECTROGRAPHER Aortic root aneurysm [facility] ADD-ON FOR OR Routine 03/18/2024 12: 05 PM SPECTROGRAPHER B CHECK SAMPLE STAT 03/18/2024 9:54 AM SPECTROGRAPHER ECG 12-LEAD Routine 03/18/2024 9:34 AM SPECTROGRAPHER PREPARE RBC STAT 03/18/2024 9:12 AM SPECTROGRAPHER DIFFERENTIAL AUTO Routine 03/15/2024 12: 29 PM SPECTROGRAPHER Aneurysm of ascending aorta without rupture (HCC) Pre-op evaluation HEMOGLOBIN A1C Routine 03/15/2024 12:29 PM SPECTROGRAPHER Aneurysm of ascending aorta without rupture (HCC) Pre-op evaluation CBC WITH AUTO DIFFERENTIAL Routine 03/15/2024 12:29 PM SPECTROGRAPHER Aneurysm of ascending aorta without rupture (HCC) Pre-op evaluation TYPE AND SCREEN Routine 03/15/2024 12:29 PM SPECTROGRAPHER Aneurysm of ascending aorta without rupture (HCC) Pre-op evaluation EGFR Routine 03/15/2024 12:28 PM SPECTROGRAPHER Aneurysm of ascending aorta without rupture (HCC) Pre-op evaluation COMPREHENSIVE METABOLIC PANEL Routine 03/15/2024 12:28 PM SPECTROGRAPHER Aneurysm of ascending aorta without rupture (HCC) Pre-op evaluation from Last 3 Months Results * eGFR (04/20/2024 12:20 AM SPECTROGRAPHER) eGFR 71 >=60 mL/min/1. 73 m2 Comment: [...] reviewed 2021. Blood 04/20/2024 12:2 0 AM SPECTROGRAPHER 04/20/2024 12:48 AM SPECTROGRAPHER us Louann Conti MD LAB BLOOD ORDERABLES F inal Result [facility] [address] Department [place] [address] * Magnesium (04/20/2024 12:20 AM SPECTROGRAPHER) Magnesium 2.2 1.4 - 2.5 mg/dL Blood 04/20/2024 12:2 0 AM SPECTROGRAPHER 04/20/2024 12:48 AM SPECTROGRAPHER Louann Conti MD LAB BLOOD ORDERABLES F inal Result Performing Organization Address City/[facility]/ZIP Co de Phone Number [facility] [address] [place] [address] * (ABNORMAL) Renal function panel (04/20/2024 12:20 AM SPECTROGRAPHER) Sodium 138 135 - 145 mmol/L Potassium, pl 4.3 3.3 - 4.9 mmol/L [facility] Chloride 102 97 - 110 mmol/L [facility] CO2 26 22 - 32 mmol/L [facility] Anion gap 10 2 - 15 mmol/L [facility] BUN 26(H) 6 - 25 mg/dL [facility] Creatinine 1.04 0.80 - 1.30 mg/dL [facility] Glucose 119 70 - 199 mg/dL [facility] Comment: Interpretive Data Fasting glucose >/= 126 [...] 2022. Calcium 8.5 8.5 - 10.3 mg/dL [facility] Phosphorus, pl 2.9 2.3 - 4.5 mg/dL [facility] Albumin 3.5 3.5 - 5.0 g/dL [facility] Blood 04/20/2024 12:2 0 AM SPECTROGRAPHER 04/20/2024 12:48 AM SPECTROGRAPHER Louann Conti MD LAB BLOOD ORDERABLES F inal Result Performing Organization Address City/[facility]/ZIP Co de Phone Number [facility] [address] [place] [address] * eGFR (04/19/2024 12:41 AM SPECTROGRAPHER) eGFR 72 >=60 mL/min/1. 73 m2 Comment: [...] reviewed 2021. Blood 04/19/2024 12:4 1 AM SPECTROGRAPHER 04/19/2024 12:56 AM SPECTROGRAPHER Louann Conti MD LAB BLOOD ORDERABLES F inal Result Performing Organization Address [facility] Co de Phone Number [facility] [address] [facility] [place] [address] * Magnesium (04/19/2024 12:41 AM SPECTROGRAPHER) Pathologist [facility] Magnesium 2.3 1.4 - 2.5 mg/dL Blood 04/19/2024 12:4 1 AM SPECTROGRAPHER 04/19/2024 12:56 AM SPECTROGRAPHER Louann Conti MD LAB BLOOD ORDERABLES F inal Result Performing Organization Address City/[facility]/ZIP Co de Phone Number [facility] [address] Department [place] [address] * (ABNORMAL) Renal function panel (04/19/2024 12:41 AM SPECTROGRAPHER) Sodium 138 135 - 145 mmol/L Potassium, pl 4.6 3.3 - 4.9 mmol/L [facility] Chloride 103 97 - 110 mmol/L [facility] CO2 26 22 - 32 mmol/L [facility] Anion gap 9 2 - 15 mmol/L [facility] BUN 31(H) 6 - 25 mg/dL [facility] Creatinine 1.02 0.80 - 1.30 mg/dL [facility] Glucose 97 70 - 199 mg/dL [facility] Comment: Interpretive Data Fasting glucose >/= 126 [...] 2022. Calcium 8.6 8.5 - 10.3 mg/dL [facility] Phosphorus, pl 3.0 2.3 - 4.5 mg/dL [facility] Albumin 3.5 3.5 - 5.0 g/dL [facility] Blood 04/19/2024 12:4 1 AM SPECTROGRAPHER 04/19/2024 12:56 AM SPECTROGRAPHER us Louann Conti MD LAB BLOOD ORDERABLES F inal Result [facility] [address] Department [place] [address] * ECG 12 lead (04/18/2024 10:45 AM SPECTROGRAPHER) 04/18/2024 10:4 5 AM SPECTROGRAPHER Narrative [facility] - 04/18/2024 1:35 PM SPECTROGRAPHER Vent Rate: 66 bpm RR Interval: 897 msec LA Interval: 0 msec QRS Duration: 91 msec QT Interval: 251 msec QTC Interval: 265 msec P-R-T Downey: 0 - 12 - 0 degrees IMPRESSION: ATRIAL FIBRILLATION NONSPECIFIC ST \T\ T-WAVE ABNORMALITY ABNORMAL RHYTHM ECG Electronically Signed By: Klaus Humphrey MD PhD Klaus Humphrey MD PhD ECG ORDERABLES Final Result Performing Organization Address [facility] Co de Phone Number [facility] * ECG 12 lead (04/18/2024 7:41 AM SPECTROGRAPHER) 04/18/2024 7:41 AM SPECTROGRAPHER Narrative [facility] - 04/18/2024 7:53 AM SPECTROGRAPHER Vent Rate: 65 bpm RR Interval: 921 msec LA Interval: 0 msec QRS Duration: 101 msec QT Interval: 442 msec QTC Interval: 453 msec P-R-T Downey: 0 - 2 - 10 degrees IMPRESSION: ATRIAL FIBRILLATION NONSPECIFIC T-WAVE ABNORMALITY ABNORMAL RHYTHM ECG Electronically Signed By: Klaus Humphrey MD PhD Louann Conti MD ECG ORDERABLES Final Result Performing Organization Address [facility] de Phone Number [facility] * ECG 12 lead (04/18/2024 3:01 AM SPECTROGRAPHER) 04/18/2024 3:01 AM SPECTROGRAPHER Narrative [facility] - 04/18/2024 7:57 AM SPECTROGRAPHER Vent Rate: 64 bpm RR Interval: 930 msec LA Interval: 0 msec QRS Duration: 94 msec QT Interval: 441 msec QTC Interval: 451 msec P-R-T Downey: 0 - -4 - -36 degrees IMPRESSION: ATRIAL FIBRILLATION INFERIOR MYOCARDIAL INFARCTION , PROBABLY OLD WITH POSTERIOR EXTENSION ABNORMAL ECG Electronically Signed By: Klaus Humphrey MD PhD WILL Navas Jr. ECG ORDERABLES Final Result Performing Organization Address [facility] de Phone Number [facility] * eGFR (04/18/2024 12:24 AM SPECTROGRAPHER) eGFR 69 >=60 mL/min/1. 73 m2 Comment: [...] reviewed 2021. Blood 04/18/2024 12:2 4 AM SPECTROGRAPHER 04/18/2024 12:44 AM SPECTROGRAPHER Louann Conti MD LAB BLOOD ORDERABLES F inal Result Performing Organization Address City/[facility]/ZIP Co de Phone Number [facility] [address] [facility] [employer] [place], [place] [id number] * Magnesium (04/18/2024 12:24 AM SPECTROGRAPHER) Magnesium 2.4 1.4 - 2.5 mg/dL Blood 04/18/2024 12:2 4 AM SPECTROGRAPHER 04/18/2024 12:44 AM SPECTROGRAPHER Louann Conti MD LAB BLOOD ORDERABLES F inal Result [facility] [address] [facility] [place] [address] * (ABNORMAL) Renal function panel (04/18/2024 12:24 AM SPECTROGRAPHER) Sodium 137 135 - 145 mmol/L Potassium, pl 4.3 3.3 - 4.9 mmol/L [facility] Chloride 101 97 - 110 mmol/L [facility] CO2 25 22 - 32 mmol/L [facility] Anion gap 11 2 - 15 mmol/L [facility] BUN 37(H) 6 - 25 mg/dL [facility] Creatinine 1.06 0.80 - 1.30 mg/dL [facility] Glucose 102 70 - 199 mg/dL [facility] Comment: Interpretive Data Fasting glucose >/= 126 [...] 2022. Calcium 8.9 8.5 - 10.3 mg/dL [facility] Phosphorus, pl 2.9 2.3 - 4.5 mg/dL [facility] Albumin 3.8 3.5 - 5.0 g/dL [facility] Blood 04/18/2024 12:2 4 AM SPECTROGRAPHER 04/18/2024 12:44 AM SPECTROGRAPHER us Louann Conti MD LAB BLOOD ORDERABLES F inal Result [facility] [address] Department [place] [address] * EGD (04/16/2024 7:56 AM SPECTROGRAPHER) Anatomical Region Laterality Modality Other Narrative Procedure Note Roderick Bedolla MD - 04/16/2024 7:56 AM CST ENDOSCOPY LAB Patient Name: Gian Lee Procedure Date: 04/16/2024 7:56 AM Admit Type: Inpatient Room: [facility] Date of : 1940 Instrument Name: [id number] [...] Final Result * eGFR (04/15/2024 12:25 AM SPECTROGRAPHER) eGFR 61 >=60 mL/min/1. 73 m2 Comment: [...] reviewed 2021. Blood 04/15/2024 12:2 5 AM SPECTROGRAPHER 04/15/2024 12:48 AM SPECTROGRAPHER us Louann Conti MD LAB BLOOD ORDERABLES F inal Result Performing Organization Address [facility] de Phone Number [facility] [address] Department [place] [address] * (ABNORMAL) Protime-INR (04/15/2024 12:25 AM SPECTROGRAPHER) PT 16.8(H) 9.7 - 13.0 sec INR 1.54(H) 0.90 - 1.[address] [facility] Comment: Interpretive data Oral anticoagulant therapeutic ranges: Venous thromboembolism prophylaxis or treatment: 2.0-3.0 CARDIOLOGY Standard range: 2.0-3.0 High-intensity range: 2.5-3.5 Refer to indication-specific guidelines for appropriate target ranges for prosthetic heart valve replacement. Current interpretive data was last revised on 2019. Blood 04/15/2024 12:2 5 AM SPECTROGRAPHER 04/15/2024 12:48 AM SPECTROGRAPHER us Jaycee SOLIS LAB BLOOD ORDERABLES Final Re sult Performing Organization Address City/[facility]/ZIP Co de Phone Number [facility] [address] Department of [place] [address] * (ABNORMAL) Renal function panel (04/15/2024 12:25 AM SPECTROGRAPHER) [facility] [address] Sodium 140 135 - 145 mmol/L Potassium, pl 4.5 3.3 - 4.9 mmol/L [facility] Chloride 103 97 - 110 mmol/L [facility] CO2 27 22 - 32 mmol/L [facility] Anion gap 10 2 - 15 mmol/L [facility] BUN 27(H) 6 - 25 mg/dL [facility] Creatinine 1.17 0.80 - 1.30 mg/dL [facility] Glucose 103 70 - 199 mg/dL [facility] Comment: Interpretive Data Fasting glucose >/= 126 [...] 2022. Calcium 9.5 8.5 - 10.3 mg/dL [facility] Phosphorus, pl 4.2 2.3 - 4.5 mg/dL [facility] Albumin 3.7 3.5 - 5.0 g/dL [facility] Blood 04/15/2024 12:2 5 AM SPECTROGRAPHER 04/15/2024 12:48 AM SPECTROGRAPHER us Louann Conti MD LAB BLOOD ORDERABLES F inal Result Performing Organization Address City/[facility]/ZIP Co de Phone Number [facility] [address] Department [place] [address] * POCT glucose (04/13/2024 10:44 PM SPECTROGRAPHER) [facility] [address] Glucose, POC 102 70 - 199 mg/dL Comment: For Glucose values <35 mg/dl when Hematocrit is >60 mg/dl,the test may not accurately detect significant hypoglycemia,and testing in the Laboratory should be considered if clinically indicated. Blood 04/13/2024 10:4 4 PM SPECTROGRAPHER 04/13/2024 10:44 PM SPECTROGRAPHER us Louann Conti MD LAB POCT ORDERABLES - DEVICE Final Result [facility] [address] Department [place] [address] * FL Modified Barium Swallow W Video (04/13/2024 2:06 PM SPECTROGRAPHER) Anatomical Region Laterality Modality Head and Neck N/A Radio Fluoroscop y 04/13/2024 3:44 PM SPECTROGRAPHER Impressions 04/13/2024 4:07 PM SPECTROGRAPHER 1. There is silent transglottic aspiration with [...] Mo Stahl M.D. Narrative 04/13/2024 4:07 PM SPECTROGRAPHER EXAMINATION: MODIFIED BARIUM SWALLOW 04/05/2024 HISTORY: Dysphagia. [...] Final Result * eGFR (04/12/2024 1:38 AM SPECTROGRAPHER) eGFR 68 >=60 mL/min/1. 73 m2 Comment: [...] last reviewed 2021. Blood 04/12/2024 1:38 AM SPECTROGRAPHER 04/12/2024 1:58 AM SPECTROGRAPHER Tara Ram MD LAB BLOOD ORDERABLES Final Result [facility] [address] Department [place] [address] * Differential, auto (04/12/2024 1:38 AM SPECTROGRAPHER) Neutrophil abs 4.4 1.5 - 6.5 K/cumm Imm gran abs 0.1 0.0 - 0.1 K/cumm [facility] Lymphocyte abs 0.9 0.8 - 3.3 K/cumm [facility] Monocyte abs 0.6 0.2 - 0.8 K/cumm [facility] Eosinophil abs 0.5 0.0 - 0.5 K/cumm [facility] Basophil abs 0.1 0.0 - 0.1 K/cumm [facility] Neutrophil pct 66.9 % [facility] Comment: Interpretive Data Percent cell count reference ranges are not reported, since discordance with absolute values may lead to misinterpretation of CBC data. Current Interpretive Data was last revised on 2017. Imm gran pct 0.9 % [facility] Comment: Interpretive Data Percent cell count reference ranges are not reported, since discordance with absolute values may lead to misinterpretation of CBC data. Current Interpretive Data was last revised on 2017. Lymphocyte pct 13.7 % [facility] Comment: Interpretive Data Percent cell count reference ranges are not reported, since discordance with absolute values may lead to misinterpretation of CBC data. Current Interpretive Data was last revised on 2017. Monocyte pct 9.6 % [facility] Comment: Interpretive Data Percent cell count reference ranges are not reported, since discordance with absolute values may lead to misinterpretation of CBC data. Current Interpretive Data was last revised on 2017. Eosinophil pct 7.4 % [facility] Comment: Interpretive Data Percent cell count reference ranges are not reported, since discordance with absolute values may lead to misinterpretation of CBC data. Current Interpretive Data was last revised on 2017. Basophil pct 1.5 % [facility] Comment: Interpretive Data Percent cell count reference ranges are not reported, since discordance with absolute values may lead to misinterpretation of CBC data. Current Interpretive Data was last revised on 2017. Blood 04/12/2024 1:38 AM SPECTROGRAPHER 04/12/2024 1:58 AM SPECTROGRAPHER us Tara Ram MD LAB BLOOD ORDERABLES Final Result [facility] [address] Department [place] [address] * (ABNORMAL) CBC with auto differential (04/12/2024 1:38 AM SPECTROGRAPHER) WBC 6.6 3.8 - 9.9 K/cumm Hgb 10.2(L) 13.0 - 17.5 g/dL [facility] Hct 31.6(L) 38.9 - 50.3 % [facility] Plt 270 150 - 400 K/cumm [facility] MPV 9.1 9.1 - 12.3 fL [facility] RBC 3.56(L) 4.30 - 5.80 M/cumm [facility] MCV 88.8 81.3 - 96.4 fL [facility] MCH 28.7 27.1 - 33.3 pg [facility] MCHC 32.3 32.3 - 35.7 g/dL [facility] RDW CV 12.8 11.1 - 14.9 % [facility] RDW SD 41.6 35.7 - 48.1 fL [facility] NRBC abs 0.00 0.00 - 0.01 K/cumm [facility] Blood 04/12/2024 1:38 AM SPECTROGRAPHER 04/12/2024 1:58 AM SPECTROGRAPHER Tara Ram MD LAB BLOOD ORDERABLES Final Result Performing Organization Address City/[facility] Co de Phone Number [facility] [address] [facility] [employer] Bureau [place], [place] [id number] * Magnesium (04/12/2024 1:38 AM SPECTROGRAPHER) [facility] [address] Magnesium 2.3 1.4 - 2.5 mg/dL Blood 04/12/2024 1:38 AM SPECTROGRAPHER 04/12/2024 1:58 AM SPECTROGRAPHER Tara Ram MD LAB BLOOD ORDERABLES Final Result [facility] [address] [facility] [place] [address] * Renal function panel (04/12/2024 1:38 AM SPECTROGRAPHER) Pathologist [facility] Sodium 137 135 - 145 mmol/L Potassium, pl 4.4 3.3 - 4.9 mmol/L [facility] Chloride 102 97 - 110 mmol/L [facility] CO2 24 22 - 32 mmol/L [facility] Anion gap 11 2 - 15 mmol/L [facility] BUN 25 6 - 25 mg/dL [facility] Creatinine 1.07 0.80 - 1.30 mg/dL [facility] Glucose 115 70 - 199 mg/dL [facility] Comment: Interpretive Data Fasting glucose >/= 126 [...] 2022. Calcium 9.6 8.5 - 10.3 mg/dL [facility] Phosphorus, pl 4.1 2.3 - 4.5 mg/dL [facility] Albumin 3.6 3.5 - 5.0 g/dL [facility] Blood 04/12/2024 1:38 AM SPECTROGRAPHER 04/12/2024 1:58 AM SPECTROGRAPHER us Tara Ram MD LAB BLOOD ORDERABLES Final Result [facility] [address] Department [place] [address] * eGFR (04/10/2024 12:21 AM SPECTROGRAPHER) eGFR 65 >=60 mL/min/1. 73 m2 Comment: [...] reviewed 2021. Blood 04/10/2024 12:2 1 AM SPECTROGRAPHER 04/10/2024 12:46 AM SPECTROGRAPHER us Tara Ram MD LAB BLOOD ORDERABLES Final Result [facility] [address] Department [place] [address] * (ABNORMAL) CBC without differential (04/10/2024 12:21 AM SPECTROGRAPHER) WBC 5.1 3.8 - 9.9 K/cumm Hgb 10.2(L) 13.0 - 17.5 g/dL [facility] Hct 31.7(L) 38.9 - 50.3 % [facility] Plt 274 150 - 400 K/cumm [facility] MPV 8.6(L) 9.1 - 12.3 fL [facility] RBC 3.55(L) 4.30 - 5.80 M/cumm [facility] MCV 89.3 81.3 - 96.4 fL [facility] MCH 28.7 27.1 - 33.3 pg [facility] MCHC 32.2(L) 32.3 - 35.7 g/dL [facility] RDW CV 12.7 11.1 - 14.9 % [facility] RDW SD 41.6 35.7 - 48.1 fL [facility] NRBC abs 0.00 0.00 - 0.01 K/cumm [facility] Blood 04/10/2024 12:2 1 AM SPECTROGRAPHER 04/10/2024 12:46 AM SPECTROGRAPHER Tara Ram MD LAB BLOOD ORDERABLES Final Result Performing Organization Address City/[facility]/ZIP Co de Phone Number [facility] [address] Department [place] [address] * Magnesium (04/10/2024 12:21 AM SPECTROGRAPHER) [facility] [address] Magnesium 2.4 1.4 - 2.5 mg/dL Blood 04/10/2024 12:2 1 AM SPECTROGRAPHER 04/10/2024 12:46 AM SPECTROGRAPHER Tara Ram MD LAB BLOOD ORDERABLES Final Result Performing Organization Address [facility] de Phone Number [facility] [address] Department [place] [address] * Renal function panel (04/10/2024 12:21 AM SPECTROGRAPHER) [facility] [address] Sodium 138 135 - 145 mmol/L Potassium, pl 4.6 3.3 - 4.9 mmol/L [facility] Chloride 101 97 - 110 mmol/L [facility] CO2 28 22 - 32 mmol/L [facility] Anion gap 9 2 - 15 mmol/L [facility] BUN 23 6 - 25 mg/dL [facility] Creatinine 1.12 0.80 - 1.30 mg/dL [facility] Glucose 85 70 - 199 mg/dL [facility] Comment: Interpretive Data Fasting glucose >/= 126 [...] 2022. Calcium 9.6 8.5 - 10.3 mg/dL [facility] Phosphorus, pl 4.1 2.3 - 4.5 mg/dL [facility] Albumin 3.7 3.5 - 5.0 g/dL [facility] Blood 04/10/2024 12:2 1 AM SPECTROGRAPHER 04/10/2024 12:46 AM SPECTROGRAPHER Tara Ram MD LAB BLOOD ORDERABLES Final Result Performing Organization Address City/[facility] Co de Phone Number [facility] [address] Department of [place] [address] * eGFR (04/09/2024 12:26 AM SPECTROGRAPHER) eGFR 74 >=60 mL/min/1. 73 m2 Comment: [...] reviewed 2021. Blood 04/09/2024 12:2 6 AM SPECTROGRAPHER 04/09/2024 1:19 AM SPECTROGRAPHER Tara Ram MD LAB BLOOD ORDERABLES Final Result Performing Organization Address City/[facility]/ZIP Co de Phone Number [facility] [address] Department [place] [address] * (ABNORMAL) CBC without differential (04/09/2024 12:26 AM SPECTROGRAPHER) WBC 5.8 3.8 - 9.9 K/cumm Hgb 9.9(L) 13.0 - 17.5 g/dL [facility] Hct 31.6(L) 38.9 - 50.3 % [facility] Plt 289 150 - 400 K/cumm [facility] MPV 9.4 9.1 - 12.3 fL [facility] RBC 3.44(L) 4.30 - 5.80 M/cumm [facility] MCV 91.9 81.3 - 96.4 fL [facility] MCH 28.8 27.1 - 33.3 pg [facility] MCHC 31.3(L) 32.3 - 35.7 g/dL [facility] [facility] R[facility] CV 12.7 11.1 - 14.9 % [facility] RDW SD 42.0 35.7 - 48.1 fL [facility] NRBC abs 0.00 0.00 - 0.01 K/cumm [facility] Blood 04/09/2024 12:2 6 AM SPECTROGRAPHER 04/09/2024 1:20 AM SPECTROGRAPHER Tara Ram MD LAB BLOOD ORDERABLES Final Result Performing Organization Address City/[facility] Co de Phone Number [facility] [address] [employer] [place], [place] [id number] * Magnesium (04/09/2024 12:26 AM SPECTROGRAPHER) [facility] [address] Magnesium 2.3 1.4 - 2.5 mg/dL Blood 04/09/2024 12:2 6 AM SPECTROGRAPHER 04/09/2024 1:19 AM SPECTROGRAPHER Tara Ram MD LAB BLOOD ORDERABLES Final Result Performing Organization Address City/[facility]/ZIP Co de Phone Number [facility] [address] [employer] [place] [address] * (ABNORMAL) Renal function panel (04/09/2024 12:26 AM SPECTROGRAPHER) Sodium 138 135 - 145 mmol/L Potassium, pl 4.6 3.3 - 4.9 mmol/L [facility] Chloride 103 97 - 110 mmol/L [facility] CO2 25 22 - 32 mmol/L [facility] Anion gap 10 2 - 15 mmol/L [facility] BUN 24 6 - 25 mg/dL [facility] Creatinine 1.00 0.80 - 1.30 mg/dL [facility] Glucose 90 70 - 199 mg/dL [facility] Comment: Interpretive Data Fasting glucose >/= 126 [...] 2022. Calcium 9.3 8.5 - 10.3 mg/dL [facility] Phosphorus, pl 3.7 2.3 - 4.5 mg/dL [facility] Albumin 3.3(L) 3.5 - 5.0 g/dL [facility] Blood 04/09/2024 12:2 6 AM SPECTROGRAPHER 04/09/2024 1:19 AM SPECTROGRAPHER Tara Ram MD LAB BLOOD ORDERABLES Final Result [facility] [address] Department [place] [address] * US Carotids Duplex Bilateral (04/08/2024 5:50 PM SPECTROGRAPHER) Anatomical Region Laterality Modality Vascular Bilateral Ultrasound 04/09/2024 4:26 PM SPECTROGRAPHER Impressions 04/09/2024 4:26 PM SPECTROGRAPHER 1) Diffuse atherosclerotic change throughout the bilateral [...] Onur Martinez MD Narrative 04/09/2024 4:26 PM SPECTROGRAPHER DATE:04/08/2024 9:30 AM EXAM: Duplex imaging of [...] Re sult * eGFR (04/08/2024 12:52 AM SPECTROGRAPHER) eGFR 68 >=60 mL/min/1. 73 m2 Comment: [...] reviewed 2021. Blood 04/08/2024 12:5 2 AM SPECTROGRAPHER 04/08/2024 1:05 AM SPECTROGRAPHER us Tara Ram MD LAB BLOOD ORDERABLES Final Result [facility] [address] Department [place] [address] * Differential, auto (04/08/2024 12:52 AM SPECTROGRAPHER) Neutrophil abs 4.4 1.5 - 6.5 K/cumm Imm gran abs 0.0 0.0 - 0.1 K/cumm [facility] Lymphocyte abs 0.9 0.8 - 3.3 K/cumm [facility] Monocyte abs 0.7 0.2 - 0.8 K/cumm [facility] Eosinophil abs 0.3 0.0 - 0.5 K/cumm [facility] Basophil abs 0.1 0.0 - 0.1 K/cumm [facility] Neutrophil pct 68.1 % [facility] Comment: Interpretive Data Percent cell count reference ranges are not reported, since discordance with absolute values may lead to misinterpretation of CBC data. Current Interpretive Data was last revised on 2017. Imm gran pct 0.6 % [facility] Comment: Interpretive Data Percent cell count reference ranges are not reported, since discordance with absolute values may lead to misinterpretation of CBC data. Current Interpretive Data was last revised on 2017. Lymphocyte pct 14.0 % [facility] Comment: Interpretive Data Percent cell count reference ranges are not reported, since discordance with absolute values may lead to misinterpretation of CBC data. Current Interpretive Data was last revised on 2017. Monocyte pct 10.6 % [facility] Comment: Interpretive Data Percent cell count reference ranges are not reported, since discordance with absolute values may lead to misinterpretation of CBC data. Current Interpretive Data was last revised on 2017. Eosinophil pct 5.3 % [facility] Comment: Interpretive Data Percent cell count reference ranges are not reported, since discordance with absolute values may lead to misinterpretation of CBC data. Current Interpretive Data was last revised on 2017. Basophil pct 1.4 % [facility] Comment: Interpretive Data Percent cell count reference ranges are not reported, since discordance with absolute values may lead to misinterpretation of CBC data. Current Interpretive Data was last revised on 2017. Blood 04/08/2024 12:5 2 AM SPECTROGRAPHER 04/08/2024 1:05 AM SPECTROGRAPHER Tara Ram MD LAB BLOOD ORDERABLES Final Result Performing Organization Address City/[facility]/ZIP Co de Phone Number [facility] [address] Department [place] [address] * (ABNORMAL) CBC with auto differential (04/08/2024 12:52 AM SPECTROGRAPHER) WBC 6.4 3.8 - 9.9 K/cumm Hgb 10.5(L) 13.0 - 17.5 g/dL [facility] Hct 33.7(L) 38.9 - 50.3 % [facility] Plt 288 150 - 400 K/cumm [facility] MPV 9.1 9.1 - 12.3 fL [facility] RBC 3.74(L) 4.30 - 5.80 M/cumm [facility] MCV 90.1 81.3 - 96.4 fL [facility] MCH 28.1 27.1 - 33.3 pg [facility] MCHC 31.2(L) 32.3 - 35.7 g/dL [facility] RDW CV 12.5 11.1 - 14.9 % [facility] RDW SD 41.2 35.7 - 48.1 fL [facility] NRBC abs 0.00 0.00 - 0.01 K/cumm [facility] Blood 04/08/2024 12:5 2 AM SPECTROGRAPHER 04/08/2024 1:05 AM SPECTROGRAPHER Tara Ram MD LAB BLOOD ORDERABLES Final Result Performing Organization Address City/[facility]/ZIP Co de Phone Number [facility] [address] Department [place] [address] * Magnesium (04/08/2024 12:52 AM SPECTROGRAPHER) Pathologist [facility] Magnesium 2.3 1.4 - 2.5 mg/dL Blood 04/08/2024 12:5 2 AM SPECTROGRAPHER 04/08/2024 1:05 AM SPECTROGRAPHER Tara Ram MD LAB BLOOD ORDERABLES Final Result [facility] [address] Department [place] [address] * (ABNORMAL) Renal function panel (04/08/2024 12:52 AM SPECTROGRAPHER) [facility] [address] Sodium 138 135 - 145 mmol/L Potassium, pl 5.0(H) 3.3 - 4.9 mmol/L [facility] Chloride 102 97 - 110 mmol/L [facility] CO2 25 22 - 32 mmol/L [facility] Anion gap 11 2 - 15 mmol/L [facility] BUN 25 6 - 25 mg/dL [facility] Creatinine 1.07 0.80 - 1.30 mg/dL [facility] Glucose 89 70 - 199 mg/dL [facility] Comment: Interpretive Data Fasting glucose >/= 126 [...] 2022. Calcium 9.3 8.5 - 10.3 mg/dL [facility] Phosphorus, pl 3.4 2.3 - 4.5 mg/dL [facility] Albumin 3.4(L) 3.5 - 5.0 g/dL [facility] Blood 04/08/2024 12:5 2 AM SPECTROGRAPHER 04/08/2024 1:05 AM SPECTROGRAPHER us Tara Ram MD LAB BLOOD ORDERABLES Final Result [facility] [address] Department [place] [address] * MRI Brain WO Contrast (04/08/2024 12:24 AM SPECTROGRAPHER) Anatomical Region Laterality Modality Head and Neck N/A Magnetic Resonan ce 04/08/2024 8:48 AM SPECTROGRAPHER Impressions 04/08/2024 10:01 AM SPECTROGRAPHER 1. Approximately 5 punctate foci of diffusion [...] Malloy MD, PHD Narrative 04/08/2024 10:01 AM SPECTROGRAPHER EXAMINATION: Magnetic resonance imaging (MRI) of the [...] R esult * eGFR (04/07/2024 12:51 AM SPECTROGRAPHER) eGFR 72 >=60 mL/min/1. 73 m2 Comment: [...] reviewed 2021. Blood 04/07/2024 12:5 1 AM SPECTROGRAPHER 04/07/2024 1:14 AM SPECTROGRAPHER us Marissa Vitale DO LAB BLOOD ORDERABLES F inal Result [facility] [address] Department of Laboratories [place], [place] [id number] * (ABNORMAL) Differential, auto (04/07/2024 12:51 AM SPECTROGRAPHER) Neutrophil abs 4.7 1.5 - 6.5 K/cumm Imm gran abs 0.0 0.0 - 0.1 K/cumm [facility] Lymphocyte abs 0.7(L) 0.8 - 3.3 K/cumm [facility] Monocyte abs 0.6 0.2 - 0.8 K/cumm [facility] Eosinophil abs 0.3 0.0 - 0.5 K/cumm [facility] Basophil abs 0.1 0.0 - 0.1 K/cumm [facility] Neutrophil pct 73.0 % [facility] Comment: Interpretive Data Percent cell count reference ranges are not reported, since discordance with absolute values may lead to misinterpretation of CBC data. Current Interpretive Data was last revised on 2017. Imm gran pct 0.3 % [facility] Comment: Interpretive Data Percent cell count reference ranges are not reported, since discordance with absolute values may lead to misinterpretation of CBC data. Current Interpretive Data was last revised on 2017. Lymphocyte pct 11.5 % [facility] Comment: Interpretive Data Percent cell count reference ranges are not reported, since discordance with absolute values may lead to misinterpretation of CBC data. Current Interpretive Data was last revised on 2017. Monocyte pct 9.5 % [facility] Comment: Interpretive Data Percent cell count reference ranges are not reported, since discordance with absolute values may lead to misinterpretation of CBC data. Current Interpretive Data was last revised on 2017. Eosinophil pct 4.5 % [facility] Comment: Interpretive Data Percent cell count reference ranges are not reported, since discordance with absolute values may lead to misinterpretation of CBC data. Current Interpretive Data was last revised on 2017. Basophil pct 1.2 % [facility] Comment: Interpretive Data Percent cell count reference ranges are not reported, since discordance with absolute values may lead to misinterpretation of CBC data. Current Interpretive Data was last revised on 2017. Blood 04/07/2024 12:5 1 AM SPECTROGRAPHER 04/07/2024 1:14 AM SPECTROGRAPHER us Marissa Vitale DO LAB BLOOD ORDERABLES F inal Result Performing Organization Address [facility]/ZIP Co de Phone Number [facility] [address] Department [place] [address] * (ABNORMAL) CBC with auto differential (04/07/2024 12:51 AM SPECTROGRAPHER) [facility] [address] WBC 6.4 3.8 - 9.9 K/cumm Hgb 9.6(L) 13.0 - 17.5 g/dL [facility] Hct 29.6(L) 38.9 - 50.3 % [facility] Plt 270 150 - 400 K/cumm [facility] MPV 9.0(L) 9.1 - 12.3 fL [facility] RBC 3.35(L) 4.30 - 5.80 M/cumm [facility] MCV 88.4 81.3 - 96.4 fL [facility] MCH 28.7 27.1 - 33.3 pg [facility] MCHC 32.4 32.3 - 35.7 g/dL [facility] RDW CV 12.5 11.1 - 14.9 % [facility] RDW SD 40.3 35.7 - 48.1 fL [facility] NRBC abs 0.00 0.00 - 0.01 K/cumm [facility] Blood 04/07/2024 12:5 1 AM SPECTROGRAPHER 04/07/2024 1:14 AM SPECTROGRAPHER Marissa Vitale DO LAB BLOOD ORDERABLES F inal Result Performing Organization Address [facility]/ZIP Co de Phone Number [facility] [address] Department of Laboratories [place], [place] [id number] * (ABNORMAL) Renal function panel (04/07/2024 12:51 AM SPECTROGRAPHER) [facility] [address] Sodium 135 135 - 145 mmol/L Potassium, pl 4.4 3.3 - 4.9 mmol/L [facility] Chloride 101 97 - 110 mmol/L [facility] CO2 26 22 - 32 mmol/L [facility] Anion gap 8 2 - 15 mmol/L [facility] BUN 28(H) 6 - 25 mg/dL [facility] Creatinine 1.03 0.80 - 1.30 mg/dL [facility] Glucose 136 70 - 199 mg/dL [facility] Comment: Interpretive Data Fasting glucose >/= 126 [...] 2022. Calcium 8.9 8.5 - 10.3 mg/dL [facility] Phosphorus, pl 2.8 2.3 - 4.5 mg/dL [facility] Albumin 3.2(L) 3.5 - 5.0 g/dL [facility] Blood 04/07/2024 12:5 1 AM SPECTROGRAPHER 04/07/2024 1:14 AM SPECTROGRAPHER Marissa Vitale LAB BLOOD ORDERABLES F inal Result Performing Organization Address [facility]/ZIP Co de Phone Number [facility] [address] [place] [address] * (ABNORMAL) Hemoglobin and hematocrit (04/06/2024 5:18 PM SPECTROGRAPHER) [facility] [address] Hgb 9.5(L) 13.0 - 17.5 g/dL Hct 29.0(L) 38.9 - 50.3 % [facility] Blood 04/06/2024 5:18 PM SPECTROGRAPHER 04/06/2024 5:48 PM SPECTROGRAPHER Marissa Moni Compariocecilia Dataupia LAB BLOOD ORDERABLES F inal Result Performing Organization Address City/[facility]/ZIP Co de Phone Number [facility] [address] Department [place] [address] * XR Chest 1 View (04/06/2024 5:06 AM SPECTROGRAPHER) Anatomical Region Laterality Modality Body, Chest N/A Computed Radiogr aphy 04/06/2024 9:04 AM SPECTROGRAPHER Impressions 04/06/2024 9:04 AM SPECTROGRAPHER Feeding tube courses below the diaphragm, loops [...] Goldstein MD, PHD Narrative 04/06/2024 9:04 AM SPECTROGRAPHER EXAMINATION: XR CHEST 1 VIEW HISTORY: Shortness [...] Add on lab test (04/06/2024 3:29 AM SPECTROGRAPHER) Acceptable Yes Blood 04/06/2024 3:29 AM SPECTROGRAPHER 04/06/2024 3:30 AM SPECTROGRAPHER Narrative [facility] - 04/06/2024 3:31 AM SPECTROGRAPHER Name of Test->Renal function panel Pedro Senior MD LAB BLOOD ORDERABLES Final R esult Performing Organization Address [facility] Co de Phone Number [facility] [address] Department of [employer] [place], [place] [id number] * eGFR (04/06/2024 2:29 AM SPECTROGRAPHER) eGFR 63 >=60 mL/min/1. 73 m2 Comment: [...] last reviewed 2021. Blood 04/06/2024 2:29 AM SPECTROGRAPHER 04/06/2024 2:29 AM SPECTROGRAPHER Marissa Vitale DO LAB BLOOD ORDERABLES F inal Result Performing Organization Address [facility]/ZIP Co de Phone Number [facility] [address] Department of Laboratories [place], [place] [id number] * (ABNORMAL) Differential, auto (04/06/2024 2:29 AM SPECTROGRAPHER) Neutrophil abs 7.5(H) 1.5 - 6.5 K/cumm Imm gran abs 0.0 0.0 - 0.1 K/cumm [facility] Lymphocyte abs 0.6(L) 0.8 - 3.3 K/cumm [facility] Monocyte abs 0.8 0.2 - 0.8 K/cumm [facility] Eosinophil abs 0.1 0.0 - 0.5 K/cumm [facility] Basophil abs 0.1 0.0 - 0.1 K/cumm [facility] Neutrophil pct 82.2 % [facility] Comment: Interpretive Data Percent cell count reference ranges are not reported, since discordance with absolute values may lead to misinterpretation of CBC data. Current Interpretive Data was last revised on 2017. Imm gran pct 0.4 % [facility] Comment: Interpretive Data Percent cell count reference ranges are not reported, since discordance with absolute values may lead to misinterpretation of CBC data. Current Interpretive Data was last revised on 2017. Lymphocyte pct 7.0 % [facility] Comment: Interpretive Data Percent cell count reference ranges are not reported, since discordance with absolute values may lead to misinterpretation of CBC data. Current Interpretive Data was last revised on 2017. Monocyte pct 8.2 % [facility] Comment: Interpretive Data Percent cell count reference ranges are not reported, since discordance with absolute values may lead to misinterpretation of CBC data. Current Interpretive Data was last revised on 2017. Eosinophil pct 1.4 % [facility] Comment: Interpretive Data Percent cell count reference ranges are not reported, since discordance with absolute values may lead to misinterpretation of CBC data. Current Interpretive Data was last revised on 2017. Basophil pct 0.8 % [facility] Comment: Interpretive Data Percent cell count reference ranges are not reported, since discordance with absolute values may lead to misinterpretation of CBC data. Current Interpretive Data was last revised on 2017. Blood 04/06/2024 2:29 AM SPECTROGRAPHER 04/06/2024 2:29 AM SPECTROGRAPHER us Marissa Vitale DO LAB BLOOD ORDERABLES F inal Result [facility] [address] Department [place] [address] * (ABNORMAL) Procalcitonin (04/06/2024 2:29 AM SPECTROGRAPHER) [facility] [address] Procalcitonin 0.76(H) <=0.25 ng/mL Blood 04/06/2024 2:29 AM SPECTROGRAPHER 04/06/2024 2:29 AM SPECTROGRAPHER Marissa Moni Vitale DO LAB BLOOD ORDERABLES F inal Result Performing Organization Address [facility]/ZIP Co de Phone Number [facility] [address] [employer] [place], [place] [id number] * (ABNORMAL) CBC with auto differential (04/06/2024 2:29 AM SPECTROGRAPHER) [facility] [address] WBC 9.1 3.8 - 9.9 K/cumm Hgb 9.3(L) 13.0 - 17.5 g/dL [facility] Hct 28.1(L) 38.9 - 50.3 % [facility] Plt 256 150 - 400 K/cumm [facility] MPV 9.1 9.1 - 12.3 fL [facility] RBC 3.18(L) 4.30 - 5.80 M/cumm [facility] MCV 88.4 81.3 - 96.4 fL [facility] MCH 29.2 27.1 - 33.3 pg [facility] MCHC 33.1 32.3 - 35.7 g/dL [facility] RDW CV 12.4 11.1 - 14.9 % [facility] RDW SD 40.1 35.7 - 48.1 fL [facility] NRBC abs 0.00 0.00 - 0.01 K/cumm [facility] Blood 04/06/2024 2:29 AM SPECTROGRAPHER 04/06/2024 2:29 AM SPECTROGRAPHER Marissa Vitale DO LAB BLOOD ORDERABLES F inal Result Performing Organization Address City/[facility]/ZIP Co de Phone Number [facility] [address] [place] [address] * (ABNORMAL) Renal function panel (04/06/2024 2:29 AM SPECTROGRAPHER) Pathologist [facility] Sodium 128(L) 135 - 145 mmol/L Potassium, pl 4.6 3.3 - 4.9 mmol/L [facility] Chloride 96(L) 97 - 110 mmol/L [facility] CO2 20(L) 22 - 32 mmol/L [facility] Anion gap 12 2 - 15 mmol/L [facility] BUN 29(H) 6 - 25 mg/dL [facility] Creatinine 1.15 0.80 - 1.30 mg/dL [facility] Glucose 144 70 - 199 mg/dL [facility] Comment: Interpretive Data Fasting glucose >/= 126 [...] 2022. Calcium 8.5 8.5 - 10.3 mg/dL [facility] Phosphorus, pl 2.8 2.3 - 4.5 mg/dL [facility] Albumin 3.0(L) 3.5 - 5.0 g/dL [facility] Blood 04/06/2024 2:29 AM SPECTROGRAPHER 04/06/2024 2:29 AM SPECTROGRAPHER us Marissa Vitale DO LAB BLOOD ORDERABLES F inal Result [facility] [address] Department [place] [address] * (ABNORMAL) Blood gas, venous (04/06/2024 2:15 AM SPECTROGRAPHER) Pathologist [facility] pH, Venous 7.40 7.32 - 7.43 PCO2, Venous 37(L) 40 - 50 mmHg [facility] PO2, Venous 75 mmHg [facility] Comment: Interpretive Data No Reference Range Established Current Interpretive Data was last revised on 2017. HCO3 Venous, Calculated 23 20 - 30 mmol/L [facility] BE, venous -2 mmol/L [facility] Comment: nterpretive Data No Reference Range Established Current Interpretive Data was last revised on 2017. Blood 04/06/2024 2:15 AM SPECTROGRAPHER 04/06/2024 2:25 AM SPECTROGRAPHER Marissa Vitale DO LAB BLOOD ORDERABLES F inal Result Performing Organization Address City/[facility]/ZIP Co de Phone Number [facility] [address] Department [place] [address] * POCT glucose (04/05/2024 12:05 PM SPECTROGRAPHER) [facility] Signature Glucose, POC 77 70 - 199 mg/dL Comment: For Glucose values <35 mg/dl when Hematocrit is >60 mg/dl,the test may not accurately detect significant hypoglycemia,and testing in the Laboratory should be considered if clinically indicated. Blood 04/05/2024 12:0 5 PM SPECTROGRAPHER 04/05/2024 12:05 PM SPECTROGRAPHER Marissa Vitale DO LAB POCT ORDERABLES - DEVICE Final Result Performing Organization Address [facility]/ZIP Co de Phone Number [facility] [address] Department [place] [address] * XR Kub (04/05/2024 10:23 AM SPECTROGRAPHER) Anatomical Region Laterality Modality Body, Abdomen N/A Computed Radiogr aphy 04/05/2024 10:4 4 AM SPECTROGRAPHER Impressions 04/05/2024 10:44 AM SPECTROGRAPHER Interval placement of a Dobbhoff catheter. Its [...] Eloisa Tineo M.D. Narrative 04/05/2024 10:44 AM SPECTROGRAPHER EXAMINATION: KUB-abdomen one view HISTORY: Dobbhoff COMPARISON: [...] Barium Swallow W Video (04/05/2024 9:52 AM SPECTROGRAPHER) Anatomical Region Laterality Modality Head and Neck N/A Radio Fluoroscop y 04/05/2024 10:4 6 AM SPECTROGRAPHER Impressions 04/05/2024 2:51 PM SPECTROGRAPHER 1. There is transglottic aspiration with thin [...] Mo Stahl M.D. Narrative 04/05/2024 2:51 PM SPECTROGRAPHER EXAMINATION: MODIFIED BARIUM SWALLOW 04/05/2024 HISTORY: Dysphagia. [...] Result * POCT glucose (04/05/2024 4:30 AM SPECTROGRAPHER) Glucose, POC 71 70 - 199 mg/dL Comment: For Glucose values <35 mg/dl when Hematocrit is >60 mg/dl,the test may not accurately detect significant hypoglycemia,and testing in the Laboratory should be considered if clinically indicated. Blood 04/05/2024 4:30 AM SPECTROGRAPHER 04/05/2024 4:30 AM SPECTROGRAPHER us Krishna Salcedo MD LAB POCT ORDERABLES - DEVICE Final Result Performing Organization Address [facility] Co de Phone Number [facility] [address] [place] [address] * eGFR (04/05/2024 3:39 AM SPECTROGRAPHER) eGFR 65 >=60 mL/min/1. 73 m2 Comment: [...] last reviewed 2021. Blood 04/05/2024 3:39 AM SPECTROGRAPHER 04/05/2024 3:53 AM SPECTROGRAPHER Tian Long MD LAB BLOOD ORDERABLES Final Result Performing Organization Address [facility] Co de Phone Number [facility] [address] Department of [place] [address] * (ABNORMAL) CBC without differential (04/05/2024 3:39 AM SPECTROGRAPHER) [facility] [address] WBC 8.8 3.8 - 9.9 K/cumm Hgb 10.5(L) 13.0 - 17.5 g/dL [facility] Hct 32.3(L) 38.9 - 50.3 % [facility] Plt 284 150 - 400 K/cumm [facility] MPV 8.8(L) 9.1 - 12.3 fL [facility] RBC 3.67(L) 4.30 - 5.80 M/cumm [facility] MCV 88.0 81.3 - 96.4 fL [facility] MCH 28.6 27.1 - 33.3 pg [facility] MCHC 32.5 32.3 - 35.7 g/dL [facility] RDW CV 12.3 11.1 - 14.9 % [facility] RDW SD 39.8 35.7 - 48.1 fL [facility] NRBC abs 0.00 0.00 - 0.01 K/cumm [facility] Blood 04/05/2024 3:39 AM SPECTROGRAPHER 04/05/2024 3:53 AM SPECTROGRAPHER us Krishna Salcedo MD LAB BLOOD ORDERABLES Final R esult Performing Organization Address City/[facility]/ZIP Co de Phone Number [facility] [address] Department of [place] [address] * Magnesium (04/05/2024 3:39 AM SPECTROGRAPHER) [facility] [address] Magnesium 2.2 1.4 - 2.5 mg/dL Blood 04/05/2024 3:39 AM SPECTROGRAPHER 04/05/2024 3:53 AM SPECTROGRAPHER Marissa Vitale DO LAB BLOOD ORDERABLES F inal Result Performing Organization Address [facility] Co de Phone Number [facility] [address] Department of [place] [address] * (ABNORMAL) Renal function panel (04/05/2024 3:39 AM SPECTROGRAPHER) Pathologist [facility] Sodium 131(L) 135 - 145 mmol/L Potassium, pl 4.5 3.3 - 4.9 mmol/L [facility] Chloride 97 97 - 110 mmol/L [facility] CO2 20(L) 22 - 32 mmol/L [facility] Anion gap 14 2 - 15 mmol/L [facility] BUN 19 6 - 25 mg/dL [facility] Creatinine 1.11 0.80 - 1.30 mg/dL [facility] Glucose 63(L) 70 - 199 mg/dL [facility] Comment: Interpretive Data Fasting glucose >/= 126 [...] 2022. Calcium 8.7 8.5 - 10.3 mg/dL [facility] Phosphorus, pl 3.3 2.3 - 4.5 mg/dL [facility] Albumin 3.3(L) 3.5 - 5.0 g/dL [facility] Blood 04/05/2024 3:39 AM SPECTROGRAPHER 04/05/2024 3:53 AM SPECTROGRAPHER us Tian Long MD LAB BLOOD ORDERABLES Final Result [facility] [address] Department [place] [address] * eGFR (04/04/2024 4:18 PM SPECTROGRAPHER) eGFR 61 >=60 mL/min/1. 73 m2 Comment: [...] last reviewed 2021. Blood 04/04/2024 4:18 PM SPECTROGRAPHER 04/04/2024 4:30 PM SPECTROGRAPHER us Tian Long MD LAB BLOOD ORDERABLES Final Result [facility] [address] Department [place] [address] * (ABNORMAL) Renal function panel (04/04/2024 4:18 PM SPECTROGRAPHER) Sodium 131(L) 135 - 145 mmol/L Potassium, pl 4.7 3.3 - 4.9 mmol/L [facility] Chloride 99 97 - 110 mmol/L [facility] CO2 20(L) 22 - 32 mmol/L [facility] Anion gap 12 2 - 15 mmol/L [facility] BUN 22 6 - 25 mg/dL [facility] Creatinine 1.18 0.80 - 1.30 mg/dL [facility] Glucose 76 70 - 199 mg/dL [facility] Comment: Interpretive Data Fasting glucose >/= 126 [...] 2022. Calcium 8.6 8.5 - 10.3 mg/dL [facility] Phosphorus, pl 4.0 2.3 - 4.5 mg/dL [facility] Albumin 3.0(L) 3.5 - 5.0 g/dL [facility] Blood 04/04/2024 4:18 PM SPECTROGRAPHER 04/04/2024 4:30 PM SPECTROGRAPHER Tian Long MD LAB BLOOD ORDERABLES Final Result Performing Organization Address [facility] de Phone Number [facility] [address] [facility] [place] [address] * Sodium, urine, random (04/04/2024 6:11 AM SPECTROGRAPHER) Sodium, ur 129 mmol/L Comment: Interpretive Data No reference range established. Current interpretive data was last revised 2018. Urine 04/04/2024 6:11 AM SPECTROGRAPHER 04/04/2024 6:39 AM SPECTROGRAPHER Tian Long MD LAB URINE ORDERABLES Final Result Performing Organization Address [facility] de Phone Number [facility] [address] [facility] [place] [address] * Osmolality, urine (04/04/2024 6:11 AM SPECTROGRAPHER) Osmo, ur 549 300 - 800 mOsm/kg Urine 04/04/2024 6:11 AM SPECTROGRAPHER 04/04/2024 6:39 AM SPECTROGRAPHER Tian Long MD LAB URINE ORDERABLES Final Result Performing Organization Address [facility] de Phone Number [facility] [address] [facility] [place] [address] * Creatinine, urine, random (04/04/2024 6:11 AM SPECTROGRAPHER) Creatinine Ur 71.0 mg/dL Comment: Interpretive Data No reference range established. Current interpretive data was last revised 2018. Urine 04/04/2024 6:11 AM SPECTROGRAPHER 04/04/2024 6:39 AM SPECTROGRAPHER Tian Long MD LAB URINE ORDERABLES Final Result Performing Organization Address [facility] Co de Phone Number [facility] [address] Department [place] [address] * eGFR (04/04/2024 2:56 AM SPECTROGRAPHER) eGFR 60 >=60 mL/min/1. 73 m2 Comment: [...] last reviewed 2021. Blood 04/04/2024 2:56 AM SPECTROGRAPHER 04/04/2024 3:16 AM SPECTROGRAPHER Tian Long MD LAB BLOOD ORDERABLES Final Result Performing Organization Address City/[facility]/ZIP Co de Phone Number [facility] [address] Department of Laboratories [place], [place] [id number] * (ABNORMAL) CBC without differential (04/04/2024 2:56 AM SPECTROGRAPHER) Pathologist [facility] WBC 8.0 3.8 - 9.9 K/cumm Hgb 10.9(L) 13.0 - 17.5 g/dL [facility] Hct 32.5(L) 38.9 - 50.3 % [facility] Plt 278 150 - 400 K/cumm [facility] MPV 9.2 9.1 - 12.3 fL [facility] RBC 3.70(L) 4.30 - 5.80 M/cumm [facility] MCV 87.8 81.3 - 96.4 fL [facility] MCH 29.5 27.1 - 33.3 pg [facility] MCHC 33.5 32.3 - 35.7 g/dL [facility] RDW CV 12.6 11.1 - 14.9 % [facility] RDW SD 40.3 35.7 - 48.1 fL [facility] NRBC abs 0.00 0.00 - 0.01 K/cumm [facility] Blood 04/04/2024 2:56 AM SPECTROGRAPHER 04/04/2024 3:16 AM SPECTROGRAPHER Krishna Salcedo MD LAB BLOOD ORDERABLES Final R esult Performing Organization Address City/[facility]/ZIP Co de Phone Number [facility] [address] [employer] [place], [place] [id number] * (ABNORMAL) TSH (04/04/2024 2:56 AM SPECTROGRAPHER) [facility] [address] Thyroid Stimulating Hormone 11.20(H) 0.30 - 4.20 mcIUnit/mL Blood 04/04/2024 2:56 AM SPECTROGRAPHER 04/04/2024 3:16 AM SPECTROGRAPHER Krishna Salcedo MD LAB BLOOD ORDERABLES Final R esult Performing Organization Address City/[facility]/ZIP Co de Phone Number [facility] [address] [employer] [place], [place] [id number] * (ABNORMAL) Renal function panel (04/04/2024 2:56 AM SPECTROGRAPHER) [facility] [address] Sodium 125(L) 135 - 145 mmol/L Potassium, pl 4.6 3.3 - 4.9 mmol/L [facility] Chloride 94(L) 97 - 110 mmol/L [facility] CO2 20(L) 22 - 32 mmol/L [facility] Anion gap 11 2 - 15 mmol/L [facility] BUN 20 6 - 25 mg/dL [facility] Creatinine 1.20 0.80 - 1.30 mg/dL [facility] Glucose 70 70 - 199 mg/dL [facility] Comment: Interpretive Data Fasting glucose >/= 126 [...] 2022. Calcium 8.5 8.5 - 10.3 mg/dL [facility] Phosphorus, pl 3.9 2.3 - 4.5 mg/dL [facility] Albumin 3.0(L) 3.5 - 5.0 g/dL [facility] Blood 04/04/2024 2:56 AM SPECTROGRAPHER 04/04/2024 3:16 AM SPECTROGRAPHER Tian Long MD LAB BLOOD ORDERABLES Final Result [facility] [address] Department [place] [address] * eGFR (04/03/2024 5:59 PM SPECTROGRAPHER) eGFR 65 >=60 mL/min/1. 73 m2 Comment: [...] last reviewed 2021. Blood 04/03/2024 5:59 PM SPECTROGRAPHER 04/03/2024 6:07 PM SPECTROGRAPHER us Krishna Salcedo MD LAB BLOOD ORDERABLES Final R esult [facility] [address] Department [place] [address] * (ABNORMAL) Renal function panel (04/03/2024 5:59 PM SPECTROGRAPHER) Sodium 126(L) 135 - 145 mmol/L Potassium, pl 4.6 3.3 - 4.9 mmol/L [facility] Chloride 94(L) 97 - 110 mmol/L [facility] CO2 20(L) 22 - 32 mmol/L [facility] Anion gap 12 2 - 15 mmol/L [facility] BUN 17 6 - 25 mg/dL [facility] Creatinine 1.11 0.80 - 1.30 mg/dL [facility] Glucose 93 70 - 199 mg/dL [facility] Comment: Interpretive Data Fasting glucose >/= 126 [...] 2022. Calcium 8.3(L) 8.5 - 10.3 mg/dL [facility] Phosphorus, pl 3.8 2.3 - 4.5 mg/dL [facility] Albumin 3.0(L) 3.5 - 5.0 g/dL [facility] Blood 04/03/2024 5:59 PM SPECTROGRAPHER 04/03/2024 6:07 PM SPECTROGRAPHER Krishna Salcedo MD LAB BLOOD ORDERABLES Final R esult Performing Organization Address City/[facility]/ZIP Co de Phone Number [facility] [address] Department of [place] [address] * Aerobic culture and gram stain Sputum Lung (04/03/2024 3:55 PM SPECTROGRAPHER) Direct Specimen Exam Stain: Many polymorphonuclear leukocytes seen. Many Gram Positive Cocci Many Gram Negative Bacilli Report Final Report: Heavy growth normal krupa [facility] Sputum (Lung) 04/03/2024 3:5 5 PM SPECTROGRAPHER 04/03/2024 4:31 PM SPECTROGRAPHER Krishna Salcedo MD LAB MICROBIOLOGY - GENERAL O RDERABLES Final Result Performing Organization Address City/[facility] Co de Phone Number [facility] [address] Department THEMA [place], [place] [id number] * MRSA Only (Staphylococcus aureus) PCR Nasal (04/03/2024 3:55 PM SPECTROGRAPHER) PCR Scrn, Methicillin resistant Staphylococcus aureus (MRSA) Not Detected Not Detected Comment: Interpretive Data Testing performed using Nucleic Acid Amplification with the Walk-in Appointment Scheduler Xpert MRSA NxG Assay. This assay detects target DNA from mecA, mecC and the SCCmec insertion site of Staphylococcus aureus using Real-Time PCR and has been cleared by the FDA. Performance characteristics have been verified by the [facility]. Current Interpretive Data was last revised on 2023 Nasal 04/03/2024 3:55 PM SPECTROGRAPHER 04/03/2024 4:31 PM SPECTROGRAPHER Krishna Salcedo MD LAB MICROBIOLOGY - GENERAL O RDERABLES Final Result Performing Organization Address [facility] Co de Phone Number [facility] [address] [facility] Laboratories [place], [place] [id number] * Cortisol - Add on lab test (04/03/2024 2:48 PM SPECTROGRAPHER) Acceptable Yes Blood 04/03/2024 2:48 PM SPECTROGRAPHER 04/03/2024 2:48 PM SPECTROGRAPHER Narrative [facility] - 04/03/2024 2:48 PM SPECTROGRAPHER Name of Test->Cortisol Tian Long MD LAB BLOOD ORDERABLES Final Result Performing Organization Address [facility] Co de Phone Number [facility] [address] [facility] Personal Development Bureau [place], [place] [id number] * TSH reflex Free T4 - Add on lab test (04/03/2024 2:48 PM SPECTROGRAPHER) Acceptable Yes Blood 04/03/2024 2:48 PM SPECTROGRAPHER 04/03/2024 2:48 PM SPECTROGRAPHER Narrative [facility] 04/03/2024 2:48 PM SPECTROGRAPHER Name of Test->TSH reflex Free T4 Tian Long MD LAB BLOOD ORDERABLES Final Result Performing Organization Address [facility] Co de Phone Number [facility] [address] Department Laboratories [place], [place] [id number] * Sodium, urine, random - Add on lab test (04/03/2024 2:48 PM SPECTROGRAPHER) Acceptable Yes Blood 04/03/2024 2:48 PM SPECTROGRAPHER 04/03/2024 2:48 PM SPECTROGRAPHER Narrative [facility] 04/03/2024 2:48 PM SPECTROGRAPHER Name of Test->Sodium, urine, random us Tian Long MD LAB BLOOD ORDERABLES Final Result [facility] [address] Department [place] [address] * Osmolality, urine - Add on lab test (04/03/2024 2:48 PM SPECTROGRAPHER) Acceptable Yes Blood 04/03/2024 2:48 PM SPECTROGRAPHER 04/03/2024 2:48 PM SPECTROGRAPHER Narrative [facility] - 04/03/2024 2:48 PM SPECTROGRAPHER Name of Test->Osmolality, urine us Tian Long MD LAB BLOOD ORDERABLES Final Result Performing Organization Address [facility] Co de Phone Number [facility] [address] Department [place] [address] * TRANSTHORACIC ECHO (TTE) COMPLETE W DOPPLER/CF WO CONTRAST (04/03/2024 2:46 PM SPECTROGRAPHER) Pathologist [facility] LV EF 50-55 % CONS SCIMAGE Anatomical Region Laterality Modality Ultrasound 04/03/2024 12:2 5 PM SPECTROGRAPHER Narrative 04/03/2024 7:33 PM SPECTROGRAPHER [place] [address] [place] [address] ECHOCARDIOGRAM Patient Name: GIAN LEE E : 1940 (83y 8m) Gender: M Study Date: 04/03/2024 12:25:32 PM Ht(Inch): 68 Wt(Lb): 166.01 BSA: 1.9 Tow Motor Driver: CHANDU Location: [id number] Order Provider: KRISHNA SALCEDO BMI: 25.24 BP: [...] By: Gian Trevino MD 04/03/2024 7:32:32 PM SPECTROGRAPHER Procedure Note Gian Trevino MD - 04/03/[address] [address] ECHOCARDIOGRAM Patient Name: ROSAGIAN E : 1940 (83y 8m) Gender: M Study Date: 04/03/2024 12:25:32 PM Ht(Inch): 68 Wt(Lb): 166.01 BSA: 1.9 Tow Motor Driver: CHANDU Location: [id number] Order Provider: KRISHNA SALCEDO BMI: 25.24 BP: [...] By: Gian Trevino MD 04/03/2024 7:32:32 PM SPECTROGRAPHER Krishna Salcedo MD CV ECHO PROCEDURES Final Res ult * (ABNORMAL) Lactate (04/03/2024 11:06 AM SPECTROGRAPHER) Lactate 0.6(L) 0.7 - 2.0 mmol/L Blood 04/03/2024 11:0 6 AM SPECTROGRAPHER 04/03/2024 11:15 AM SPECTROGRAPHER Krishna Salcedo MD LAB BLOOD ORDERABLES Final R esult [facility] [address] Department [place] [address] * eGFR (04/03/2024 11:06 AM SPECTROGRAPHER) eGFR 75 >=60 mL/min/1. 73 m2 Comment: [...] reviewed 2021. Blood 04/03/2024 11:0 6 AM SPECTROGRAPHER 04/03/2024 11:23 AM SPECTROGRAPHER us Krishna Salcedo MD LAB BLOOD ORDERABLES Final R esult [facility] [address] Department [place] [address] * (ABNORMAL) Pro B-type natriuretic peptide (04/03/2024 11:06 AM SPECTROGRAPHER) NT-proBNP 1,928(H) <=450 pg/mL Comment: Interpretive Comments: [...] Date: 2017. Blood 04/03/2024 11:0 6 AM SPECTROGRAPHER 04/03/2024 11:23 AM SPECTROGRAPHER Krishna Salcedo MD LAB BLOOD ORDERABLES Final R esult Performing Organization Address City/[facility] Co de Phone Number [facility] [address] [employer] [place], [place] [id number] * (ABNORMAL) Thyroid Function Leon (04/03/2024 11:06 AM SPECTROGRAPHER) TSH 10.50(H) 0.30 - 4.20 mcIUnit/mL Blood 04/03/2024 11:0 6 AM SPECTROGRAPHER 04/03/2024 11:23 AM SPECTROGRAPHER Krishna Salcedo MD LAB BLOOD ORDERABLES Final R esult Performing Organization Address [facility] Co de Phone Number [facility] [address] Department of [place] [address] * (ABNORMAL) Urinalysis reflex to microscopic and culture Urine (04/03/2024 11:06 AM SPECTROGRAPHER) Color, ur Yellow Yellow Clarity, ur Clear Clear [facility] Specific gravity, ur 1.042(H) 1.003 - 1.030 [facility] pH, urine 7.0 [facility] Comment: Interpretive Data U rine pH is affected by diet, medications, systemic acid-base disturbances, and renal tubular function. pH may affect urinary stone formation. For example, urine pH below 6.0 may help reduce the tendency for calcium phosphate stones and pH greater than 6.0 may reduce the tendency for uric acid stone formation. Source: [facility] Current Interpretive Data was last revised on 2017 Protein, ur ql Trace Negative [facility] Glucose, ur ql Negative Negative [facility] Ketones, ur Negative Negative [facility] Bilirubin, ur Negative Negative [facility] Blood, ur 3+(A) Negative [facility] Urobilinogen, ur <2.0 <2.0 mg/dL [facility] Nitrite, ur Negative Negative [facility] Leukocyte esterase, ur Negative Negative [facility] UA reflex comment Reflex to microscopic UA will be performed. [facility] Urine 04/03/2024 11:0 6 AM SPECTROGRAPHER 04/03/2024 11:06 AM SPECTROGRAPHER Krishna Salcedo MD LAB MICROBIOLOGY - GENERAL O RDERABLES Final Result [facility] [address] Department [place] [address] * Strep pneumoniae antigen, urine Urine (04/03/2024 11:06 AM SPECTROGRAPHER) S. pneumoniae Ag Negative Negative Comment: Interpretive [...] on 2022 Urine 04/03/2024 11:0 6 AM SPECTROGRAPHER 04/03/2024 11:32 AM SPECTROGRAPHER Krishna Salcedo MD LAB MICROBIOLOGY - GENERAL O RDERABLES Final Result Performing Organization Address [facility] de Phone Number [facility] [address] [facility] [place] [address] * Legionella antigen Urine (04/03/2024 11:06 AM SPECTROGRAPHER) Legionella Ag Negative Negative Comment: Interpretive Data This test detects only Legionella pneumophila serogroup 1 antigen. Current interpretive data was last revised on 2019. Urine 04/03/2024 11:0 6 AM SPECTROGRAPHER 04/03/2024 11:32 AM SPECTROGRAPHER Krishna Salcedo MD LAB MICROBIOLOGY - GENERAL O RDERABLES Final Result Performing Organization Address [facility] de Phone Number [facility] [address] [place] [address] * Sodium, urine, random (04/03/2024 11:06 AM SPECTROGRAPHER) Sodium, ur 145 mmol/L Comment: Interpretive Data No reference range established. Current interpretive data was last revised 2018. Urine 04/03/2024 11:0 6 AM SPECTROGRAPHER 04/03/2024 3:13 PM SPECTROGRAPHER Krishna Salcedo MD LAB URINE ORDERABLES Final R esult Performing Organization Address [facility] de Phone Number [facility] [address] [facility] [employer] [place], [place] [id number] * Osmolality, urine (04/03/2024 11:06 AM SPECTROGRAPHER) Osmo, ur 526 300 - 800 mOsm/kg Urine 04/03/2024 11:0 6 AM SPECTROGRAPHER 04/03/2024 3:14 PM SPECTROGRAPHER Krishna Salcedo MD LAB URINE ORDERABLES Final R esult Performing Organization Address [facility] Co de Phone Number [facility] [address] [facility] [place] [address] * (ABNORMAL) Urinalysis, microscopic only (04/03/2024 11:06 AM SPECTROGRAPHER) WBC, ur 0-5 0 - 5 /HPF RBC, ur >50(A) 0 - 2 /HPF [facility] Bacteria, ur Trace(A) [facility] Culture Reflex Comment Reflex conditions for urine culture (WBC >10) not met. [facility] Urine 04/03/2024 11:0 6 AM SPECTROGRAPHER 04/03/2024 11:23 AM SPECTROGRAPHER Krishna Salcedo MD LAB URINE ORDERABLES Final R esult Performing Organization Address [facility] de Phone Number [facility] [address] [facility] [place] [address] * (ABNORMAL) aPTT (04/03/2024 11:06 AM SPECTROGRAPHER) aPTT 39(H) 28 - 38 sec Comment: Interpretive Data Heparin therapeutic range: 66.0 - 100.0 seconds. Range based on correlation with therapeutic heparin activity range of 0.3 - 0.7 Units/mL. Current interpretive data was last revised on 2022. Blood 04/03/2024 11:0 6 AM SPECTROGRAPHER 04/03/2024 11:22 AM SPECTROGRAPHER Krishna Salcedo MD LAB BLOOD ORDERABLES Final R esult Performing Organization Address [facility] Co de Phone Number [facility] [address] [facility] [place] [address] * (ABNORMAL) Protime-INR (04/03/2024 11:06 AM SPECTROGRAPHER) PT 17.7(H) 9.7 - 13.0 sec INR 1.62(H) 0.90 - 1.20 [facility] Comment: Interpretive data Oral anticoagulant therapeutic ranges: Venous thromboembolism prophylaxis or treatment: 2.0-3.0 CARDIOLOGY Standard range: 2.0-3.0 High-intensity range: 2.5-3.5 Refer to indication-specific guidelines for appropriate target ranges for prosthetic heart valve replacement. Current interpretive data was last revised on 2019. Blood 04/03/2024 11:0 6 AM SPECTROGRAPHER 04/03/2024 11:22 AM SPECTROGRAPHER us Krishna Salcedo MD LAB BLOOD ORDERABLES Final R esult [facility] [address] Department [place] [address] * (ABNORMAL) CBC without differential (04/03/2024 11:06 AM SPECTROGRAPHER) WBC 8.6 3.8 - 9.9 K/cumm Hgb 10.0(L) 13.0 - 17.5 g/dL [facility] Hct 30.8(L) 38.9 - 50.3 % [facility] Plt 249 150 - 400 K/cumm [facility] MPV 9.1 9.1 - 12.3 fL [facility] RBC 3.43(L) 4.30 - 5.80 M/cumm [facility] MCV 89.8 81.3 - 96.4 fL [facility] MCH 29.2 27.1 - 33.3 pg [facility] MCHC 32.5 32.3 - 35.7 g/dL [facility] RDW CV 12.7 11.1 - 14.9 % [facility] RDW SD 41.0 35.7 - 48.1 fL [facility] NRBC abs 0.00 0.00 - 0.01 K/cumm [facility] Blood 04/03/2024 11:0 6 AM SPECTROGRAPHER 04/03/2024 11:23 AM SPECTROGRAPHER Narrative [facility] - 04/03/2024 11:32 AM SPECTROGRAPHER Baseline prior to rivaroxaban initiation Krishna Salcedo MD LAB BLOOD ORDERABLES Final R esult Performing Organization Address [facility] Co de Phone Number [facility] [address] [facility] Personal [employer] Bureau [place], [place] [id number] * Type and screen (04/03/2024 11:06 AM SPECTROGRAPHER) ABO Rh O Positive Alex, indirect Negative [facility] Blood 04/03/2024 11:0 6 AM SPECTROGRAPHER 04/03/2024 11:25 AM SPECTROGRAPHER Narrative [facility] - 04/03/2024 12:03 PM SPECTROGRAPHER Has the patient had Daratumumab or Isatuximab in the past 6 months?->Unknown Krishna Salcedo MD LAB BLOOD BANK TEST ORDERABL ES Final Result Performing Organization Address [facility] Co de Phone Number [facility] [address] [facility] [place] [address] * Uric acid (04/03/2024 11:06 AM SPECTROGRAPHER) Uric acid 3.4 3.0 - 8.0 mg/dL Blood 04/03/2024 11:0 6 AM SPECTROGRAPHER 04/03/2024 11:23 AM SPECTROGRAPHER Krishna Salcedo MD LAB BLOOD ORDERABLES Final R esult Performing Organization Address [facility] Co de Phone Number [facility] [address] [facility] [place] [address] * T4, free (04/03/2024 11:06 AM SPECTROGRAPHER) Free T4 0.95 0.90 - 1.70 ng/dL Blood 04/03/2024 11:0 6 AM SPECTROGRAPHER 04/03/2024 11:23 AM SPECTROGRAPHER Narrative [facility] - 04/03/2024 2:33 PM SPECTROGRAPHER This test was reflexed from a TSH result. Krishna Salcedo MD LAB BLOOD ORDERABLES Final R esult Performing Organization Address [facility] Co de Phone Number [facility] [address] [facility] [place] [address] * Phosphorus (04/03/2024 11:06 AM SPECTROGRAPHER) Phosphorus, pl 3.5 2.3 - 4.5 mg/dL Blood 04/03/2024 11:0 6 AM SPECTROGRAPHER 04/03/2024 11:23 AM SPECTROGRAPHER Krishna Salcedo MD LAB BLOOD ORDERABLES Final R esult Performing Organization Address [facility] Co de Phone Number [facility] [address] [facility] [place] [address] * Magnesium (04/03/2024 11:06 AM SPECTROGRAPHER) Magnesium 2.0 1.4 - 2.5 mg/dL Blood 04/03/2024 11:0 6 AM SPECTROGRAPHER 04/03/2024 11:23 AM SPECTROGRAPHER Krishna Salcedo MD LAB BLOOD ORDERABLES Final R esult Performing Organization Address [facility] Co de Phone Number [facility] [address] Department [place] [address] * Cortisol (04/03/2024 11:06 AM SPECTROGRAPHER) Cortisol 8.3 4.8 - 19.5 mcg/dl Blood 04/03/2024 11:0 6 AM SPECTROGRAPHER 04/03/2024 11:23 AM SPECTROGRAPHER Krishna Salcedo MD LAB BLOOD ORDERABLES Final R esult Performing Organization Address [facility] Co de Phone Number [facility] [address] Department [place] [address] * Bilirubin, direct (04/03/2024 11:06 AM SPECTROGRAPHER) Pathologist [facility] Bilirubin, direct 0.2 0.1 - 0.3 mg/dL Blood 04/03/2024 11:0 6 AM SPECTROGRAPHER 04/03/2024 11:23 AM SPECTROGRAPHER us Krishna Salcedo MD LAB BLOOD ORDERABLES Final R esult [facility] [address] Department [place] [address] * (ABNORMAL) Comprehensive metabolic panel (04/03/2024 11:06 AM SPECTROGRAPHER) [facility] [address] Sodium 122(L) 135 - 145 mmol/L Potassium, pl 4.4 3.3 - 4.9 mmol/L [facility] Chloride 89(L) 97 - 110 mmol/L [facility] CO2 21(L) 22 - 32 mmol/L [facility] Anion gap 12 2 - 15 mmol/L [facility] BUN 17 6 - 25 mg/dL [facility] Creatinine 0.99 0.80 - 1.30 mg/dL [facility] Glucose 79 70 - 199 mg/dL [facility] Comment: Interpretive Data Fasting glucose >/= 126 [...] 2022. Calcium 8.1(L) 8.5 - 10.3 mg/dL [facility] Bilirubin, total 0.5 0.1 - 1.2 mg/dL [facility] Protein, pl 5.6(L) 6.5 - 8.5 g/dL [facility] Albumin 3.0(L) 3.5 - 5.0 g/dL [facility] Alk phos 67 40 - 130 Units/L [facility] ALT 19 7 - 55 Units/L [facility] AST 31 10 - 50 Units/L [facility] Blood 04/03/2024 11:0 6 AM SPECTROGRAPHER 04/03/2024 11:23 AM SPECTROGRAPHER us Krishna Salcedo MD LAB BLOOD ORDERABLES Final R esult [facility] [address] Department [place] [address] * X-ray chest 1 view (Portable) (04/03/2024 10:23 AM SPECTROGRAPHER) Anatomical Region Laterality Modality Body, Chest N/A Computed Radiogr aphy 04/03/2024 10:3 4 AM SPECTROGRAPHER Impressions 04/03/2024 10:34 AM SPECTROGRAPHER Persistent left pleural effusion and basilar atelectasis with improving aeration of the right lung. Electronically signed by: Isiah David M.D. Narrative 04/03/2024 10:34 AM SPECTROGRAPHER EXAMINATION: XR CHEST 1 VIEW HISTORY: Pneumonia [...] Portable - in AM (03/27/2024 6:38 AM SPECTROGRAPHER) Anatomical Region Laterality Modality Body, Chest N/A Computed Radiogr aphy 03/27/2024 7:33 AM SPECTROGRAPHER Impressions 03/27/2024 7:33 AM SPECTROGRAPHER Bibasilar atelectasis with persistent left pleural effusion. Electronically signed by: Basil Youssef M.D. Narrative 03/27/2024 7:33 AM SPECTROGRAPHER EXAMINATION: XR CHEST 1 VIEW HISTORY: Pleural [...] Final Result * eGFR (03/27/2024 12:27 AM SPECTROGRAPHER) eGFR 74 >=60 mL/min/1. 73 m2 Comment: [...] reviewed 2021. Blood 03/27/2024 12:2 7 AM SPECTROGRAPHER 03/27/2024 1:07 AM SPECTROGRAPHER Ale Mcknight NP LAB BLOOD ORDERABLES Fin al Result [facility] [address] Department [place] [address] * (ABNORMAL) CBC without differential (03/27/2024 12:27 AM SPECTROGRAPHER) WBC 8.8 3.8 - 9.9 K/cumm Hgb 9.5(L) 13.0 - 17.5 g/dL [facility] Hct 29.3(L) 38.9 - 50.3 % [facility] Plt 138(L) 150 - 400 K/cumm [facility] MPV 9.7 9.1 - 12.3 fL [facility] RBC 3.18(L) 4.30 - 5.80 M/cumm [facility] MCV 92.1 81.3 - 96.4 fL [facility] MCH 29.9 27.1 - 33.3 pg [facility] MCHC 32.4 32.3 - 35.7 g/dL [facility] RDW CV 12.9 11.1 - 14.9 % [facility] RDW SD 43.4 35.7 - 48.1 fL [facility] NRBC abs 0.00 0.00 - 0.01 K/cumm [facility] Blood 03/27/2024 12:2 7 AM SPECTROGRAPHER 03/27/2024 1:07 AM SPECTROGRAPHER Ale Mckinght [employer] LAB BLOOD ORDERABLES Fin al Result Performing Organization Address [facility] Co de Phone Number [facility] [address] [facility] [place] [address] * Magnesium (03/27/2024 12:27 AM SPECTROGRAPHER) [facility] [address] Magnesium 2.1 1.4 - 2.5 mg/dL Blood 03/27/2024 12:2 7 AM SPECTROGRAPHER 03/27/2024 1:07 AM SPECTROGRAPHER Ale Mcknight [employer] LAB BLOOD ORDERABLES Fin al Result Performing Organization Address [facility] de Phone Number [facility] [address] [facility] [place] [address] * (ABNORMAL) Renal function panel (03/27/2024 12:27 AM SPECTROGRAPHER) [facility] [address] Sodium 134(L) 135 - 145 mmol/L Potassium, pl 4.3 3.3 - 4.9 mmol/L [facility] Chloride 101 97 - 110 mmol/L [facility] CO2 24 22 - 32 mmol/L [facility] Anion gap 9 2 - 15 mmol/L [facility] BUN 16 6 - 25 mg/dL [facility] Creatinine 1.00 0.80 - 1.30 mg/dL [facility] Glucose 112 70 - 199 mg/dL [facility] Comment: Interpretive Data Fasting glucose >/= 126 [...] 2022. Calcium 8.4(L) 8.5 - 10.3 mg/dL [facility] Phosphorus, pl 4.0 2.3 - 4.5 mg/dL [facility] Albumin 3.1(L) 3.5 - 5.0 g/dL [facility] Blood 03/27/2024 12:2 7 AM SPECTROGRAPHER 03/27/2024 1:07 AM SPECTROGRAPHER us Ale Mcknight NP LAB BLOOD ORDERABLES Fin al Result [facility] [address] Department [place] [address] * (ABNORMAL) Urinalysis reflex to microscopic and culture Urine (03/26/2024 11:53 AM SPECTROGRAPHER) Color, ur Yellow Yellow Clarity, ur Clear Clear [facility] Specific gravity, ur 1.031(H) 1.003 - 1.030 [facility] pH, urine 6.0 [facility] Comment: Interpretive Data U rine pH is affected by diet, medications, systemic acid-base disturbances, and renal tubular function. pH may affect urinary stone formation. For example, urine pH below 6.0 may help reduce the tendency for calcium phosphate stones and pH greater than 6.0 may reduce the tendency for uric acid stone formation. Source: [facility] Current Interpretive Data was last revised on 2017 Protein, ur ql 1+(A) Negative [facility] Glucose, ur ql Negative Negative [facility] Ketones, ur Negative Negative [facility] Bilirubin, ur Negative Negative [facility] Blood, ur Negative Negative [facility] Urobilinogen, ur 2.0(A) <2.0 mg/dL [facility] Nitrite, ur Negative Negative [facility] Leukocyte esterase, ur 2+(A) Negative [facility] UA reflex comment Reflex to microscopic UA will be performed. [facility] Urine 03/26/2024 11:5 3 AM SPECTROGRAPHER 03/26/2024 11:53 AM SPECTROGRAPHER Benny SOLIS LAB MICROBIOLOGY - GENERAL O RDERABLES Final Result Performing Organization Address [facility] Co de Phone Number [facility] [address] Department [place] [address] * (ABNORMAL) Urinalysis, microscopic only (03/26/2024 11:53 AM SPECTROGRAPHER) WBC, ur 6-10(A) 0 - 5 /HPF RBC, ur 3-5(A) 0 - 2 /HPF [facility] Epithelial cells, squamous, ur 1-5 0 - 5 /HPF [facility] Mucous, ur Present(A) [facility] Culture Reflex Comment Reflex conditions for urine culture (WBC >10) not met. [facility] Urine 03/26/2024 11:5 3 AM SPECTROGRAPHER 03/26/2024 12:04 PM SPECTROGRAPHER us Benny SOLIS LAB URINE ORDERABLES Final R esult Performing Organization Address [facility] Co de Phone Number [facility] [address] Department [place] [address] * XR Chest 1 View - Portable - in AM (03/26/2024 6:06 AM SPECTROGRAPHER) Anatomical Region Laterality Modality Body, Chest N/A Computed Radiogr aphy 03/26/2024 7:40 AM SPECTROGRAPHER Impressions 03/26/2024 7:40 AM SPECTROGRAPHER Comparison 03/25/2024 5:47 AM. Median sternotomy wires are intact. Right internal jugular central venous catheter tip at superior cavoatrial junction. Cardiomediastinal silhouette stable. Aortic valve replacement again noted. Moderate left and mild right bibasilar atelectasis and small left pleural effusion again noted. No pulmonary edema seen. No pneumothorax seen. Electronically signed by: Dion Pinto M.D. Narrative 03/26/2024 7:40 AM SPECTROGRAPHER EXAMINATION: Chest 1 view Procedure Note Dion [...] Final Result * eGFR (03/26/2024 12:27 AM SPECTROGRAPHER) eGFR 65 >=60 mL/min/1. 73 m2 Comment: [...] reviewed 2021. Blood 03/26/2024 12:2 7 AM SPECTROGRAPHER 03/26/2024 12:50 AM SPECTROGRAPHER us Ale Mcknight NP LAB BLOOD ORDERABLES Fin al Result [facility] [address] Department [place] [address] * (ABNORMAL) CBC without differential (03/26/2024 12:27 AM SPECTROGRAPHER) [facility] [address] WBC 10.0(H) 3.8 - 9.9 K/cumm Hgb 9.8(L) 13.0 - 17.5 g/dL [facility] Hct 29.2(L) 38.9 - 50.3 % [facility] Plt 162 150 - 400 K/cumm [facility] MPV 9.1 9.1 - 12.3 fL [facility] RBC 3.22(L) 4.30 - 5.80 M/cumm [facility] MCV 90.7 81.3 - 96.4 fL [facility] MCH 30.4 27.1 - 33.3 pg [facility] MCHC 33.6 32.3 - 35.7 g/dL [facility] RDW CV 12.9 11.1 - 14.9 % [facility] RDW SD 42.5 35.7 - 48.1 fL [facility] NRBC abs 0.00 0.00 - 0.01 K/cumm [facility] Blood 03/26/2024 12:2 7 AM SPECTROGRAPHER 03/26/2024 12:50 AM SPECTROGRAPHER Ale Mcknight [employer] LAB BLOOD ORDERABLES Fin al Result Performing Organization Address [facility] Co de Phone Number [facility] [address] [facility] [place] [address] * Magnesium (03/26/2024 12:27 AM SPECTROGRAPHER) [facility] [address] Magnesium 2.0 1.4 - 2.5 mg/dL Blood 03/26/2024 12:2 7 AM SPECTROGRAPHER 03/26/2024 12:50 AM SPECTROGRAPHER Ale Mcknight [employer] LAB BLOOD ORDERABLES Fin al Result Performing Organization Address [facility] Co de Phone Number [facility] [address] Department of [place] [address] * (ABNORMAL) Renal function panel (03/26/2024 12:27 AM SPECTROGRAPHER) Sodium 135 135 - 145 mmol/L Potassium, pl 4.2 3.3 - 4.9 mmol/L [facility] Chloride 100 97 - 110 mmol/L [facility] CO2 23 22 - 32 mmol/L [facility] Anion gap 12 2 - 15 mmol/L [facility] BUN 16 6 - 25 mg/dL [facility] Creatinine 1.12 0.80 - 1.30 mg/dL [facility] Glucose 100 70 - 199 mg/dL [facility] Comment: Interpretive Data Fasting glucose >/= 126 [...] 2022. Calcium 8.3(L) 8.5 - 10.3 mg/dL [facility] Phosphorus, pl 3.8 2.3 - 4.5 mg/dL [facility] Albumin 3.3(L) 3.5 - 5.0 g/dL [facility] Blood 03/26/2024 12:2 7 AM SPECTROGRAPHER 03/26/2024 12:50 AM SPECTROGRAPHER us Ale Mcknight NP LAB BLOOD ORDERABLES Fin al Result [facility] [address] Department [place] [address] * XR Chest 1 View - Portable - in AM (03/25/2024 5:49 AM SPECTROGRAPHER) Anatomical Region Laterality Modality Body, Chest N/A Computed Radiogr aphy 03/25/2024 8:22 AM SPECTROGRAPHER Impressions 03/25/2024 8:22 AM SPECTROGRAPHER Comparison is made to chest radiograph dated [...] Farzana Guzman M.D. Narrative 03/25/2024 8:22 AM SPECTROGRAPHER EXAMINATION: 1 view chest radiograph Procedure Note [...] signed by: Farzana Guzman M.D. Ale Mcknight [employer] IMG XR PROCEDURES Final Result * eGFR (03/25/2024 1:33 AM SPECTROGRAPHER) eGFR 76 >=60 mL/min/1. 73 m2 Comment: [...] last reviewed 2021. Blood 03/25/2024 1:33 AM SPECTROGRAPHER 03/25/2024 1:55 AM SPECTROGRAPHER Ale Mcknight [employer] LAB BLOOD ORDERABLES Fin al Result Performing Organization Address [facility]/ZIP Co de Phone Number [facility] [address] [place] [address] * (ABNORMAL) CBC without differential (03/25/2024 1:33 AM SPECTROGRAPHER) [facility] [address] WBC 9.0 3.8 - 9.9 K/cumm Hgb 9.3(L) 13.0 - 17.5 g/dL [facility] Hct 28.0(L) 38.9 - 50.3 % [facility] Plt 131(L) 150 - 400 K/cumm [facility] MPV 9.8 9.1 - 12.3 fL [facility] RBC 3.08(L) 4.30 - 5.80 M/cumm [facility] MCV 90.9 81.3 - 96.4 fL [facility] MCH 30.2 27.1 - 33.3 pg [facility] MCHC 33.2 32.3 - 35.7 g/dL [facility] RDW CV 12.9 11.1 - 14.9 % [facility] RDW SD 42.4 35.7 - 48.1 fL [facility] NRBC abs 0.00 0.00 - 0.01 K/cumm [facility] Blood 03/25/2024 1:33 AM SPECTROGRAPHER 03/25/2024 1:55 AM SPECTROGRAPHER Ale Mcknight [employer] BLOOD ORDERABLES Fin al Result Performing Organization Address [facility]/ZIP Co de Phone Number [facility] [address] [place] [address] * Type and screen (03/25/2024 1:33 AM SPECTROGRAPHER) [facility] [address] ABO Rh O Positive Alex, indirect Negative [facility] Blood 03/25/2024 1:33 AM SPECTROGRAPHER 03/25/2024 2:03 AM SPECTROGRAPHER Narrative [facility] - 03/25/2024 2:34 AM SPECTROGRAPHER Has the patient had Daratumumab or Isatuximab in the past 6 months?->Unknown Ale Mcknight [employer] LAB BLOOD BANK TEST ORDE RABLES Final Result [facility] [address] Department [place] [address] * Magnesium (03/25/2024 1:33 AM SPECTROGRAPHER) [facility] [address] Magnesium 2.0 1.4 - 2.5 mg/dL Blood 03/25/2024 1:33 AM SPECTROGRAPHER 03/25/2024 1:55 AM SPECTROGRAPHER Ale Mcknight [employer] LAB BLOOD ORDERABLES Fin al Result [facility] [address] Department of [place] [address] * (ABNORMAL) Renal function panel (03/25/2024 1:33 AM SPECTROGRAPHER) [facility] [address] Sodium 132(L) 135 - 145 mmol/L Potassium, pl 4.6 3.3 - 4.9 mmol/L [facility] Chloride 99 97 - 110 mmol/L [facility] CO2 22 22 - 32 mmol/L [facility] Anion gap 11 2 - 15 mmol/L [facility] BUN 16 6 - 25 mg/dL [facility] Creatinine 0.98 0.80 - 1.30 mg/dL [facility] Glucose 104 70 - 199 mg/dL [facility] Comment: Interpretive Data Fasting glucose >/= 126 [...] 2022. Calcium 8.0(L) 8.5 - 10.3 mg/dL [facility] Phosphorus, pl 2.8 2.3 - 4.5 mg/dL [facility] Albumin 2.8(L) 3.5 - 5.0 g/dL [facility] Blood 03/25/2024 1:33 AM SPECTROGRAPHER 03/25/2024 1:55 AM SPECTROGRAPHER Ale Mcknight NP LAB BLOOD ORDERABLES Fin al Result [facility] [address] Department [place] [address] * XR Chest 1 View - Portable - in AM (03/24/2024 8:05 AM SPECTROGRAPHER) Anatomical Region Laterality Modality Body, Chest N/A Computed Radiogr aphy 03/24/2024 8:15 AM SPECTROGRAPHER Impressions 03/24/2024 8:15 AM SPECTROGRAPHER Single view chest exam is compared to [...] Williams Murillo M.D. Narrative 03/24/2024 8:15 AM SPECTROGRAPHER EXAMINATION: XR CHEST 1 VIEW History: Pleural [...] Final Result * eGFR (03/24/2024 2:16 AM SPECTROGRAPHER) eGFR 73 >=60 mL/min/1. 73 m2 Comment: [...] last reviewed 2021. Blood 03/24/2024 2:16 AM SPECTROGRAPHER 03/24/2024 2:21 AM SPECTROGRAPHER us Ale Mcknight NP LAB BLOOD ORDERABLES Fin al Result [facility] [address] Department of Laboratories [place] [id number] * (ABNORMAL) CBC without differential (03/24/2024 2:16 AM SPECTROGRAPHER) [facility] [address] WBC 7.5 3.8 - 9.9 K/cumm Hgb 9.6(L) 13.0 - 17.5 g/dL [facility] Hct 28.7(L) 38.9 - 50.3 % [facility] Plt 143(L) 150 - 400 K/cumm [facility] MPV 9.5 9.1 - 12.3 fL [facility] RBC 3.19(L) 4.30 - 5.80 M/cumm [facility] MCV 90.0 81.3 - 96.4 fL [facility] MCH 30.1 27.1 - 33.3 pg [facility] MCHC 33.4 32.3 - 35.7 g/dL [facility] RDW CV 12.7 11.1 - 14.9 % [facility] RDW SD 41.8 35.7 - 48.1 fL [facility] NRBC abs 0.00 0.00 - 0.01 K/cumm [facility] Blood 03/24/2024 2:16 AM SPECTROGRAPHER 03/24/2024 2:21 AM SPECTROGRAPHER Ale Mcknight [employer] LAB BLOOD ORDERABLES Fin al Result Performing Organization Address [facility] Co de Phone Number [facility] [address] [facility] [place] [address] * Magnesium (03/24/2024 2:16 AM SPECTROGRAPHER) [facility] [address] Magnesium 2.2 1.4 - 2.5 mg/dL Blood 03/24/2024 2:16 AM SPECTROGRAPHER 03/24/2024 2:21 AM SPECTROGRAPHER Ale Mcknight [employer] LAB BLOOD ORDERABLES Fin al Result Performing Organization Address City/[facility] Co de Phone Number [facility] [address] Department [place] [address] * (ABNORMAL) Renal function panel (03/24/2024 2:16 AM SPECTROGRAPHER) Sodium 134(L) 135 - 145 mmol/L Potassium, pl 4.2 3.3 - 4.9 mmol/L [facility] Chloride 103 97 - 110 mmol/L [facility] CO2 22 22 - 32 mmol/L [facility] Anion gap 9 2 - 15 mmol/L [facility] BUN 16 6 - 25 mg/dL [facility] Creatinine 1.01 0.80 - 1.30 mg/dL [facility] Glucose 103 70 - 199 mg/dL [facility] Comment: Interpretive Data Fasting glucose >/= 126 [...] 2022. Calcium 8.3(L) 8.5 - 10.3 mg/dL [facility] Phosphorus, pl 2.2(L) 2.3 - 4.5 mg/dL [facility] Albumin 2.9(L) 3.5 - 5.0 g/dL [facility] Blood 03/24/2024 2:16 AM SPECTROGRAPHER 03/24/2024 2:21 AM SPECTROGRAPHER us Ale Mcknight NP LAB BLOOD ORDERABLES Fin al Result [facility] [address] Department [place] [address] * XR Chest 1 View - Portable - in AM (03/23/2024 6:41 AM SPECTROGRAPHER) Anatomical Region Laterality Modality Body, Chest N/A Computed Radiogr aphy 03/23/2024 8:08 AM SPECTROGRAPHER Impressions 03/23/2024 8:08 AM SPECTROGRAPHER 1. Obscuration of the left hemidiaphragm likely related to a pleural effusion. 2. Otherwise grossly negative postoperative chest radiograph. COMMENT: Please see above for additional findings. Electronically signed by: Mo Stahl M.D. Narrative 03/23/2024 8:08 AM SPECTROGRAPHER Chest Radiograph, 1 view HISTORY: pleural effusion, [...] markings are appreciated in the remaining lung baumnan. The included portion of the upper abdomen [...] for additional findings. Electronically signed by: Mo E. Scales, M.D. us Ale Mcknight [employer] IMG XR PROCEDURES Final Result * Critical Care (03/23/2024 6:36 AM SPECTROGRAPHER) Narrative Mauri Odell MD - 03/23/2024 6:36 AM SPECTROGRAPHER Ale Mcknight NP 03/23/2024 8:54 AM Critical Care Performed by: Ale Mcknight NP Authorized by: Ale Mcknight NP CRITICAL CARE: Team: [facility] CT Shift: AM Level of [...] plan with the patient's team and other medical/domestic travel consultant staff. This time was in addition to and separate from care provided by other practitioners on this day of service. I spent time reviewing and interpreting data from bedside monitors, laboratory results, and imaging and I spent time discussing the management of this critically ill patient with consultants and the medical staff us Ale Mcknight [employer] MECHANIC IN CLINIC/BEDSIDE ORDERA BLES Final Result * eGFR (03/23/2024 1:16 AM SPECTROGRAPHER) eGFR 77 >=60 mL/min/1. 73 m2 Comment: [...] last reviewed 2021. Blood 03/23/2024 1:16 AM SPECTROGRAPHER 03/23/2024 1:35 AM SPECTROGRAPHER Brenda Mayberry [employer] LAB BLOOD ORDERABLES Final Result Performing Organization Address [facility] Co de Phone Number [facility] [address] [facility] [place] [address] * (ABNORMAL) Calcium, ionized (03/23/2024 1:16 AM SPECTROGRAPHER) Calcium, Ionized 4.40(L) 4.50 - 5.10 mg/dL Blood 03/23/2024 1:16 AM SPECTROGRAPHER 03/23/2024 1:23 AM SPECTROGRAPHER Result [facility] Gena Jane [employer]CH[employer] LAB BLOOD ORDERABLES Hamida l Result Performing Organization Address [facility] de Phone Number [facility] [address] [facility] [place] [address] * Protime-INR (03/23/2024 1:16 AM SPECTROGRAPHER) PT 11.7 9.7 - 13.0 sec INR 1.08 0.90 - 1.20 [facility] Comment: Interpretive data Oral anticoagulant therapeutic ranges: Venous thromboembolism prophylaxis or treatment: 2.0-3.0 CARDIOLOGY Standard range: 2.0-3.0 High-intensity range: 2.5-3.5 Refer to indication-specific guidelines for appropriate target ranges for prosthetic heart valve replacement. Current interpretive data was last revised on 2019. Blood 03/23/2024 1:16 AM SPECTROGRAPHER 03/23/2024 1:35 AM SPECTROGRAPHER Result [facility] Gena Jane [employer]CH[employer]IC LAB BLOOD ORDERABLES Hamida l Result Performing Organization Address [facility] Co de Phone Number [facility] [address] [facility] [place] [address] * (ABNORMAL) CBC without differential (03/23/2024 1:16 AM SPECTROGRAPHER) [facility] [address] WBC 8.3 3.8 - 9.9 K/cumm Hgb 10.2(L) 13.0 - 17.5 g/dL [facility] Hct 31.4(L) 38.9 - 50.3 % [facility] Plt 130(L) 150 - 400 K/cumm [facility] MPV 9.6 9.1 - 12.3 fL [facility] RBC 3.42(L) 4.30 - 5.80 M/cumm [facility] MCV 91.8 81.3 - 96.4 fL [facility] MCH 29.8 27.1 - 33.3 pg [facility] MCHC 32.5 32.3 - 35.7 g/dL [facility] RDW CV 12.9 11.1 - 14.9 % [facility] RDW SD 43.1 35.7 - 48.1 fL [facility] NRBC abs 0.00 0.00 - 0.01 K/cumm [facility] Blood 03/23/2024 1:16 AM SPECTROGRAPHER 03/23/2024 1:36 AM SPECTROGRAPHER Ale Mcknight [employer]CH[employer] LAB BLOOD ORDERABLES Fin al Result Performing Organization Address [facility] Co de Phone Number [facility] [address] [facility] [place] [address] * Magnesium (03/23/2024 1:16 AM SPECTROGRAPHER) [facility] [address] Magnesium 2.2 1.4 - 2.5 mg/dL Comment:Reviewed Blood 03/23/2024 1:16 AM SPECTROGRAPHER 03/23/2024 1:35 AM SPECTROGRAPHER Ale Mcknight [employer] LAB BLOOD ORDERABLES Fin al Result Performing Organization Address City/[facility]/ZIP Co de Phone Number [facility] [address] Department [place] [address] * (ABNORMAL) Renal function panel (03/23/2024 1:16 AM SPECTROGRAPHER) Sodium 134(L) 135 - 145 mmol/L Potassium, pl 4.5 3.3 - 4.9 mmol/L [facility] Chloride 100 97 - 110 mmol/L [facility] CO2 21(L) 22 - 32 mmol/L [facility] Anion gap 13 2 - 15 mmol/L [facility] BUN 13 6 - 25 mg/dL [facility] Creatinine 0.97 0.80 - 1.30 mg/dL [facility] Glucose 79 70 - 199 mg/dL [facility] Comment: Interpretive Data Fasting glucose >/= 126 [...] 2022. Calcium 8.2(L) 8.5 - 10.3 mg/dL [facility] Phosphorus, pl 3.3 2.3 - 4.5 mg/dL [facility] Albumin 2.9(L) 3.5 - 5.0 g/dL [facility] Blood 03/23/2024 1:16 AM SPECTROGRAPHER 03/23/2024 1:35 AM SPECTROGRAPHER us Ale Mcknight NP LAB BLOOD ORDERABLES Fin al Result [facility] [address] Department [place] [address] * Critical Care (03/22/2024 8:16 PM SPECTROGRAPHER) Narrative Mauri Odell MD - 03/22/2024 8:16 PM SPECTROGRAPHER Gena Jane NP 03/23/2024 4:04 AM Critical Care Performed by: Gena Jane NP Authorized by: Gena Jane NP CRITICAL CARE: Team: [facility] CT Shift: PM Level of [...] plan with the patient's team and other medical/domestic travel consultant staff. This time was in addition [...] laboratory results, and imaging us Gena Jane [employer] MECH[employer]IC IN CLINIC/BEDSIDE ORDERAB LES Final Result * POCT glucose (03/22/2024 6:38 PM SPECTROGRAPHER) Glucose, POC 96 70 - 199 mg/dL Comment: For Glucose values <35 mg/dl when Hematocrit is >60 mg/dl,the test may not accurately detect significant hypoglycemia,and testing in the Laboratory should be considered if clinically indicated. Blood 03/22/2024 6:38 PM SPECTROGRAPHER 03/22/2024 6:38 PM SPECTROGRAPHER us Basil Adhikari MD LAB POCT ORDERABLES - DE VICE Final Result [facility] [address] Department [place] [address] * eGFR (03/22/2024 6:30 PM SPECTROGRAPHER) eGFR 76 >=60 mL/min/1. 73 m2 Comment: [...] last reviewed 2021. Blood 03/22/2024 6:30 PM SPECTROGRAPHER 03/22/2024 6:42 PM SPECTROGRAPHER Sara Shanna Edwards [employer] LAB BLOOD ORDERABLES Final Result Performing Organization Address City/[facility]/ZIP Co de Phone Number [facility] [address] Department of Personal [employer] Bureau [place], [place] [id number] * (ABNORMAL) Calcium, ionized (03/22/2024 6:30 PM SPECTROGRAPHER) Calcium, Ionized 4.40(L) 4.50 - 5.10 mg/dL Blood 03/22/2024 6:30 PM SPECTROGRAPHER 03/22/2024 6:42 PM SPECTROGRAPHER Sara Shanna Edwards [employer] LAB BLOOD ORDERABLES Final Result [facility] [address] Department of Personal Development [place], [place] [id number] * aPTT (03/22/2024 6:30 PM SPECTROGRAPHER) aPTT 30 28 - 38 sec Comment: Interpretive Data Heparin therapeutic range: 66.0 - 100.0 seconds. Range based on correlation with therapeutic heparin activity range of 0.3 - 0.7 Units/mL. Current interpretive data was last revised on 2022. Blood 03/22/2024 6:30 PM SPECTROGRAPHER 03/22/2024 6:42 PM SPECTROGRAPHER Sara Zieglerlubna Edwards [employer]CH[employer] LAB BLOOD ORDERABLES Final Result Performing Organization Address [facility] Co de Phone Number [facility] [address] [facility] [place] [address] * Protime-INR (03/22/2024 6:30 PM SPECTROGRAPHER) Pathologist [facility] PT 12.8 9.7 - 13.0 sec INR 1.18 0.90 - 1.20 [facility] Comment: Interpretive data Oral anticoagulant therapeutic ranges: Venous thromboembolism prophylaxis or treatment: 2.0-3.0 CARDIOLOGY Standard range: 2.0-3.0 High-intensity range: 2.5-3.5 Refer to indication-specific guidelines for appropriate target ranges for prosthetic heart valve replacement. Current interpretive data was last revised on 2019. Blood 03/22/2024 6:30 PM SPECTROGRAPHER 03/22/2024 6:42 PM SPECTROGRAPHER Sara Zieglerlubna Edwards [employer]CH[employer] LAB BLOOD ORDERABLES Final Result Performing Organization Address [facility] Co de Phone Number [facility] [address] [facility] [place] [address] * (ABNORMAL) CBC without differential (03/22/2024 6:30 PM SPECTROGRAPHER) [facility] [address] WBC 9.6 3.8 - 9.9 K/cumm Hgb 9.9(L) 13.0 - 17.5 g/dL [facility] Hct 29.4(L) 38.9 - 50.3 % [facility] Plt 107(L) 150 - 400 K/cumm [facility] MPV 9.5 9.1 - 12.3 fL [facility] RBC 3.23(L) 4.30 - 5.80 M/cumm [facility] MCV 91.0 81.3 - 96.4 fL [facility] MCH 30.7 27.1 - 33.3 pg [facility] MCHC 33.7 32.3 - 35.7 g/dL [facility] RDW CV 12.7 11.1 - 14.9 % [facility] RDW SD 42.5 35.7 - 48.1 fL [facility] NRBC abs 0.00 0.00 - 0.01 K/cumm [facility] Blood 03/22/2024 6:30 PM SPECTROGRAPHER 03/22/2024 6:42 PM SPECTROGRAPHER Sara Zieglerlubna Edwards [employer]CH[employer] LAB BLOOD ORDERABLES Final Result Performing Organization Address City/[facility]/ZIP Co de Phone Number [facility] [address] Department of [place] [address] * Magnesium (03/22/2024 6:30 PM SPECTROGRAPHER) [facility] [address] Magnesium 1.7 1.4 - 2.5 mg/dL Blood 03/22/2024 6:30 PM SPECTROGRAPHER 03/22/2024 6:42 PM SPECTROGRAPHER Sara Zieglerlubna Edwards [employer]CH[employer] LAB BLOOD ORDERABLES Final Result Performing Organization Address [facility] Co de Phone Number [facility] [address] [place] [address] * (ABNORMAL) Renal function panel (03/22/2024 6:30 PM SPECTROGRAPHER) Sodium 133(L) 135 - 145 mmol/L Potassium, pl 4.1 3.3 - 4.9 mmol/L [facility] Chloride 101 97 - 110 mmol/L [facility] CO2 20(L) 22 - 32 mmol/L [facility] Anion gap 12 2 - 15 mmol/L [facility] BUN 15 6 - 25 mg/dL [facility] Creatinine 0.98 0.80 - 1.30 mg/dL [facility] Glucose 89 70 - 199 mg/dL [facility] Comment: Interpretive Data Fasting glucose >/= 126 [...] 2022. Calcium 7.5(L) 8.5 - 10.3 mg/dL [facility] Phosphorus, pl 3.0 2.3 - 4.5 mg/dL [facility] Albumin 2.8(L) 3.5 - 5.0 g/dL [facility] Blood 03/22/2024 6:30 PM SPECTROGRAPHER 03/22/2024 6:42 PM SPECTROGRAPHER us Sara Edwards NP LAB BLOOD ORDERABLES Final Result [facility] [address] Department [place] [address] * Critical Care (03/22/2024 5:43 PM SPECTROGRAPHER) Narrative Mauri Odell MD - 03/22/2024 5:43 PM SPECTROGRAPHER Sara Edwards NP 03/22/2024 5:52 PM Critical Care Performed by: Sara Edwards NP Authorized by: Sara Edwards NP CRITICAL CARE: Team: [facility] CT Shift: AM Level of [...] plan with the ICU team and other medical/domestic travel consultant staff, making frequent assessments and decisions [...] documenting in the medical record Sara Edwards [employer] MECHANIC IN CLINIC/BEDSIDE ORDERABL ES Final Result * REVAS ENDOVASILIAC W STNT [id number] (03/22/2024 4:52 PM SPECTROGRAPHER) Anatomical Region Laterality Modality X-Ray Angiograph y Narrative 03/22/2024 4:54 PM SPECTROGRAPHER Please see OpNote for result. Basil Adhikari MD CV CARDIAC CATH PROCEDUR ES Final Result * (ABNORMAL) POC Activated Clotting Time, High Range (03/22/2024 4:51 PM SPECTROGRAPHER) Pathologist [facility] ACT 139(H) 87 - 138 sec Blood 03/22/2024 4:51 PM SPECTROGRAPHER 03/22/2024 4:51 PM SPECTROGRAPHER Basil Adhikari MD LAB BLOOD ORDERABLES Fin al Result [facility] [address] Department of Laboratories [place], [place] [id number] * (ABNORMAL) POC Blood Gas and Chemistries, Venous - (03/22/2024 4:29 PM SPECTROGRAPHER) pH, Boyd POC 7.31(L) 7.32 - 7.45 pCO2, boyd POC 48 40 - 50 mmHg [facility] pO2, boyd POC 64(H) 35 - 42 mmHg [facility] Na, POC 129(L) 135 - 145 mmol/L [facility] K POC 4.1 3.3 - 4.9 mmol/L [facility] Comment: Interpretive Data This method is not able to assess for hemolysis, which may falsely increase potassium concentrations. If further testing is needed to evaluate this result, consider in-laboratory plasma potassium. Current Interpretive Data was last revised on 2021. Cl, POC 101 97 - 110 mmol/L [facility] Ionized Ca, POC 4.62 4.50 - 5.10 mg/dL [facility] Glucose, POC 95 70 - 199 mg/dL [facility] Lactate, POC 0.7 0.0 - 2.0 mmol/L [facility] O2Hb, Boyd POC 90.2 90.0 - 95.0 % [facility] Carboxhgb fract 1.9 0.0 - 2.9 % [facility] Methemoglobin 1.3 0.0 - 1.9 % [facility] HHb, POC 6.6(H) 0.0 - 5.0 % [facility] O2 Sat, Boyd POC (Shayne) 93(H) 68 - 77 % [facility] Total CO2, boyd POC 26 22 - 32 mmol/L [facility] Base excess, boyd POC -2.2 mmol/L [facility] HCO3, Boyd POC 23 20 - 30 mmol/L [facility] Hct, POC 30.0(L) 38.9 - 50.3 % [facility] Total Hb, POC 9.9(L) 13.0 - 17.5 g/dL [facility] Blood 03/22/2024 4:29 PM SPECTROGRAPHER 03/22/2024 4:29 PM SPECTROGRAPHER us Basil Adhikari MD LAB POCT ORDERABLES - DE VICE Final Result Performing Organization Address City/[facility]/ZIP Co de Phone Number [place] [phone] [place] [address] * (ABNORMAL) POC Activated Clotting Time, High Range (03/22/2024 4:10 PM SPECTROGRAPHER) ACT 386(H) 87 - 138 sec Blood 03/22/2024 4:10 PM SPECTROGRAPHER 03/22/2024 4:10 PM SPECTROGRAPHER Basil Adhikari MD LAB BLOOD ORDERABLES Fin al Result [facility] [address] [employer] [place] [address] * (ABNORMAL) POC Activated Clotting Time, High Range (03/22/2024 4:00 PM SPECTROGRAPHER) ACT 174(H) 87 - 138 sec Blood 03/22/2024 4:00 PM SPECTROGRAPHER 03/22/2024 4:00 PM SPECTROGRAPHER Basil Adhikari MD LAB BLOOD ORDERABLES Fin al Result Performing Organization Address [facility] de Phone Number [facility] [address] [facility] [place] [address] * (ABNORMAL) POC Activated Clotting Time, High Range (03/22/2024 3:56 PM SPECTROGRAPHER) ACT 145(H) 87 - 138 sec Blood 03/22/2024 3:56 PM SPECTROGRAPHER 03/22/2024 3:56 PM SPECTROGRAPHER Basil Adhikari MD LAB BLOOD ORDERABLES Fin al Result Performing Organization Address [facility] Co de Phone Number [facility] [address] [facility] [place] [address] * (ABNORMAL) POC Activated Clotting Time, High Range (03/22/2024 3:28 PM SPECTROGRAPHER) ACT 457(H) 87 - 138 sec Blood 03/22/2024 3:28 PM SPECTROGRAPHER 03/22/2024 3:28 PM SPECTROGRAPHER Basil Adhikari MD LAB BLOOD ORDERABLES Fin al Result Performing Organization Address [facility] Co de Phone Number [facility] [address] [facility] [place] [address] * (ABNORMAL) POCT Activated clotting time, low range (03/22/2024 3:21 PM SPECTROGRAPHER) ACT >400(H) 123 - 168 sec Blood 03/22/2024 3:21 PM SPECTROGRAPHER 03/22/2024 3:21 PM SPECTROGRAPHER us Basil Adhikari MD LAB POCT ORDERABLES - DE VICE Final Result [facility] [address] Department [place] [address] * LA AN ELECTIVE ENDOTRACHEAL AIRWAY, LA AN PROCEDURE PLACEHOLDER (03/22/2024 3:08 PM SPECTROGRAPHER) Narrative Gamal Asher MD PhD - 03/22/2024 3:08 PM SPECTROGRAPHER Gamal Asher MD PhD 03/22/2024 3:09 PM [...] Prepare RBC: 2 Units (03/22/2024 2:42 PM SPECTROGRAPHER) Product code [id number] Unit Number [id number] 8-* [facility] Product Blood Type OPOS [facility] Dispense Status RETURNED [facility] Product code [id number] [facility] Unit Number [id number] [id number] [facility] Product Blood Type OPOS [facility] Dispense Status RETURNED [facility] Blood 03/22/2024 2:42 PM SPECTROGRAPHER Narrative [facility] - 03/26/2024 7:31 AM SPECTROGRAPHER Are special requirements needed? (All products are leukoreduced and CMV- safe)- >No Date required:-[id number] LRRBC # of [id number] Reasons:-Intra-op transfusion} us Gamal Asher MD PhD BLOOD BANK PRODUCT ORDER AMARA Final Result [facility] [address] Department [place] [address] * XR Chest 1 View - Portable - in AM (03/22/2024 7:26 AM SPECTROGRAPHER) Anatomical Region Laterality Modality Body, Chest N/A Computed Radiogr aphy 03/22/2024 8:08 AM SPECTROGRAPHER Impressions 03/22/2024 8:08 AM SPECTROGRAPHER Comparison is made to 03/21/2024. Right jugular [...] Ruy Hager M.D. Narrative 03/22/2024 8:08 AM SPECTROGRAPHER Examination: Chest 1 view Procedure Note Ruy [...] by: Ruy Hager M.D. us Ale Mcknight [employer] IMG XR PROCEDURES Final Result * eGFR (03/22/2024 1:34 AM SPECTROGRAPHER) eGFR 73 >=60 mL/min/1. 73 m2 Comment: [...] last reviewed 2021. Blood 03/22/2024 1:34 AM SPECTROGRAPHER 03/22/2024 2:00 AM SPECTROGRAPHER us Brenda Mayberry [employer] LAB BLOOD ORDERABLES Final Result [facility] [address] Department [place] [address] * (ABNORMAL) CBC without differential (03/22/2024 1:34 AM SPECTROGRAPHER) [facility] [address] WBC 9.0 3.8 - 9.9 K/cumm Hgb 10.2(L) 13.0 - 17.5 g/dL [facility] Hct 30.6(L) 38.9 - 50.3 % [facility] Plt 111(L) 150 - 400 K/cumm [facility] MPV 10.1 9.1 - 12.3 fL [facility] RBC 3.41(L) 4.30 - 5.80 M/cumm [facility] MCV 89.7 81.3 - 96.4 fL [facility] MCH 29.9 27.1 - 33.3 pg [facility] MCHC 33.3 32.3 - 35.7 g/dL [facility] RDW CV 12.8 11.1 - 14.9 % [facility] RDW SD 42.0 35.7 - 48.1 fL [facility] NRBC abs 0.00 0.00 - 0.01 K/cumm [facility] Blood 03/22/2024 1:34 AM SPECTROGRAPHER 03/22/2024 2:00 AM SPECTROGRAPHER Ale Mcknight [employer] LAB BLOOD ORDERABLES Fin al Result Performing Organization Address City/[facility]/ZIP Co de Phone Number [facility] [address] [facility] Personal Development Bureau [place], [place] [id number] * Type and screen (03/22/2024 1:34 AM SPECTROGRAPHER) Alex, indirect Negative ABO Rh O Positive [facility] Blood 03/22/2024 1:34 AM SPECTROGRAPHER 03/22/2024 1:56 AM SPECTROGRAPHER Narrative [facility] - 03/22/2024 2:43 AM SPECTROGRAPHER Has the patient had Daratumumab or Isatuximab in the past 6 months?->Unknown Result [facility] Ale Mckngiht NP LAB BLOOD BANK TEST ORDE RABLES Final Result Performing Organization Address [facility] Co de Phone Number [facility] [address] Department [place] [address] * Magnesium (03/22/2024 1:34 AM SPECTROGRAPHER) Magnesium 1.9 1.4 - 2.5 mg/dL Blood 03/22/2024 1:34 AM SPECTROGRAPHER 03/22/2024 2:00 AM SPECTROGRAPHER Ale Mcknight [employer] LAB BLOOD ORDERABLES Fin al Result Performing Organization Address City/[facility]/ZIP Co de Phone Number [facility] [address] Department [place] [address] * (ABNORMAL) Renal function panel (03/22/2024 1:34 AM SPECTROGRAPHER) Sodium 130(L) 135 - 145 mmol/L Potassium, pl 4.1 3.3 - 4.9 mmol/L [facility] Chloride 96(L) 97 - 110 mmol/L [facility] CO2 21(L) 22 - 32 mmol/L [facility] Anion gap 13 2 - 15 mmol/L [facility] BUN 17 6 - 25 mg/dL [facility] Creatinine 1.01 0.80 - 1.30 mg/dL [facility] Glucose 94 70 - 199 mg/dL [facility] Comment: Interpretive Data Fasting glucose >/= 126 [...] 2022. Calcium 8.3(L) 8.5 - 10.3 mg/dL [facility] Phosphorus, pl 2.8 2.3 - 4.5 mg/dL [facility] Albumin 3.2(L) 3.5 - 5.0 g/dL [facility] Blood 03/22/2024 1:34 AM SPECTROGRAPHER 03/22/2024 2:00 AM SPECTROGRAPHER us Ale Mcknight NP LAB BLOOD ORDERABLES Fin al Result [facility] [address] Department [place] [address] * (ABNORMAL) aPTT (03/21/2024 8:12 PM SPECTROGRAPHER) aPTT 43(H) 28 - 38 sec Comment: Interpretive Data Heparin therapeutic range: 66.0 - 100.0 seconds. Range based on correlation with therapeutic heparin activity range of 0.3 - 0.7 Units/mL. Current interpretive data was last revised on 2022. Blood 03/21/2024 8:12 PM SPECTROGRAPHER 03/21/2024 8:17 PM SPECTROGRAPHER Narrative [facility] - 03/21/2024 8:26 PM SPECTROGRAPHER STAT PTT timing: - Draw 6 hours [...] SOLIS LAB BLOOD ORDERABLES Final R esult [facility] [address] Department [place] [address] * (ABNORMAL) aPTT (03/21/2024 12:40 PM SPECTROGRAPHER) [facility] [address] aPTT 47(H) 28 - 38 sec Comment: Interpretive Data Heparin therapeutic range: 66.0 - 100.0 seconds. Range based on correlation with therapeutic heparin activity range of 0.3 - 0.7 Units/mL. Current interpretive data was last revised on 2022. Blood 03/21/2024 12:4 0 PM SPECTROGRAPHER 03/21/2024 12:44 PM SPECTROGRAPHER N[facility] - 03/21/2024 1:11 PM SPECTROGRAPHER STAT PTT timing: - Draw 6 hours [...] ORDERABLES Final R esult Performing Organization Address [facility] Co de Phone Number [facility] [address] Department of [place] [address] * aPTT (03/21/2024 10:35 AM SPECTROGRAPHER) aPTT 37 28 - 38 sec Comment: Interpretive Data Heparin therapeutic range: 66.0 - 100.0 seconds. Range based on correlation with therapeutic heparin activity range of 0.3 - 0.7 Units/mL. Current interpretive data was last revised on 2022. Blood 03/21/2024 10:3 5 AM SPECTROGRAPHER 03/21/2024 10:41 AM SPECTROGRAPHER Basil Adhikari MD LAB BLOOD ORDERABLES Fin al Result Performing Organization Address [facility] de Phone Number [facility] [address] Department of [place] [address] * XR Chest 1 View - Portable - in AM (03/21/2024 7:43 AM SPECTROGRAPHER) Anatomical Region Laterality Modality Body, Chest N/A Computed Radiogr aphy 03/21/2024 7:47 AM SPECTROGRAPHER Impressions 03/21/2024 7:47 AM SPECTROGRAPHER Right internal jugular central venous catheter terminates in the superior cavoatrial junction. Median sternotomy. Aortic valve replacement. Calcified atherosclerotic aorta. Mild cardiomegaly is unchanged. There is bibasilar subsegmental atelectasis, unchanged from the prior examination. Questionable small left pleural effusion is also unchanged. No pneumothorax. Electronically signed by: Manuel Mike M.D. Narrative 03/21/2024 7:47 AM SPECTROGRAPHER PORTABLE CHEST RADIOGRAPH INDICATION: pleural effusion COMPARISON: [...] pneumothorax. Electronically signed by: Manuel Mike M.D. lAe Mcknight [employer] IMG XR PROCEDURES Final Result * (ABNORMAL) aPTT (03/21/2024 2:27 AM SPECTROGRAPHER) aPTT 60(H) 28 - 38 sec Comment: Interpretive Data Heparin therapeutic range: 66.0 - 100.0 seconds. Range based on correlation with therapeutic heparin activity range of 0.3 - 0.7 Units/mL. Current interpretive data was last revised on 2022. Blood 03/21/2024 2:27 AM SPECTROGRAPHER 03/21/2024 2:52 AM SPECTROGRAPHER Francis [facility] - 03/21/2024 3:10 AM SPECTROGRAPHER STAT PTT timing: - Draw 6 hours [...] SOLIS LAB BLOOD ORDERABLES Final R esult [facility] [address] Department [place] [address] * eGFR (03/21/2024 2:24 AM SPECTROGRAPHER) eGFR 77 >=60 mL/min/1. 73 m2 Comment: [...] last reviewed 2021. Blood 03/21/2024 2:24 AM SPECTROGRAPHER 03/21/2024 2:52 AM SPECTROGRAPHER Brenda Mayberry NP LAB BLOOD ORDERABLES Final Result Performing Organization Address City/[facility]/ZIP Co de Phone Number [facility] [address] Department [place] [address] * (ABNORMAL) CBC without differential (03/21/2024 2:24 AM SPECTROGRAPHER) Pathologist [facility] WBC 10.9(H) 3.8 - 9.9 K/cumm Hgb 11.1(L) 13.0 - 17.5 g/dL [facility] Hct 32.9(L) 38.9 - 50.3 % [facility] Plt 97(L) 150 - 400 K/cumm [facility] MPV 10.2 9.1 - 12.3 fL [facility] RBC 3.68(L) 4.30 - 5.80 M/cumm [facility] MCV 89.4 81.3 - 96.4 fL [facility] MCH 30.2 27.1 - 33.3 pg [facility] MCHC 33.7 32.3 - 35.7 g/dL [facility] RDW CV 12.7 11.1 - 14.9 % [facility] RDW SD 41.5 35.7 - 48.1 fL [facility] NRBC abs 0.00 0.00 - 0.01 K/cumm [facility] Blood 03/21/2024 2:24 AM SPECTROGRAPHER 03/21/2024 2:52 AM SPECTROGRAPHER Ale Mcknight [employer] LAB BLOOD ORDERABLES Fin al Result [facility] [address] [facility] Personal [employer] Bureau [place], [place] [id number] * Magnesium (03/21/2024 2:24 AM SPECTROGRAPHER) [facility] [address] Magnesium 1.8 1.4 - 2.5 mg/dL Blood 03/21/2024 2:24 AM SPECTROGRAPHER 03/21/2024 2:52 AM SPECTROGRAPHER Ale Mcknight [employer] LAB BLOOD ORDERABLES Fin al Result Performing Organization Address City/[facility]/ZIP Co de Phone Number [facility] [address] Department [place] [address] * (ABNORMAL) Renal function panel (03/21/2024 2:24 AM SPECTROGRAPHER) Sodium 128(L) 135 - 145 mmol/L Potassium, pl 4.0 3.3 - 4.9 mmol/L [facility] Chloride 96(L) 97 - 110 mmol/L [facility] CO2 21(L) 22 - 32 mmol/L [facility] Anion gap 11 2 - 15 mmol/L [facility] BUN 18 6 - 25 mg/dL [facility] Creatinine 0.97 0.80 - 1.30 mg/dL [facility] Glucose 108 70 - 199 mg/dL [facility] Comment: Interpretive Data Fasting glucose >/= 126 [...] 2022. Calcium 8.4(L) 8.5 - 10.3 mg/dL [facility] Phosphorus, pl 1.8(L) 2.3 - 4.5 mg/dL [facility] Albumin 3.4(L) 3.5 - 5.0 g/dL [facility] Blood 03/21/2024 2:24 AM SPECTROGRAPHER 03/21/2024 2:52 AM SPECTROGRAPHER us Ale Mcknight NP LAB BLOOD ORDERABLES Fin al Result [facility] [address] Department [place] [address] * (ABNORMAL) aPTT (03/20/2024 4:57 PM SPECTROGRAPHER) aPTT 48(H) 28 - 38 sec Comment: Interpretive Data Heparin therapeutic range: 66.0 - 100.0 seconds. Range based on correlation with therapeutic heparin activity range of 0.3 - 0.7 Units/mL. Current interpretive data was last revised on 2022. Blood 03/20/2024 4:57 PM SPECTROGRAPHER 03/20/2024 5:16 PM SPECTROGRAPHER Narrative [facility] - 03/20/2024 5:33 PM SPECTROGRAPHER STAT PTT timing: - Draw 6 hours [...] Benny SOLIS LAB BLOOD ORDERABLES Final R [facility] Performing Organization Address [facility] Co de Phone Number [facility] [address] Department [employer] [place], [place] [id number] * aPTT (03/20/2024 9:27 AM SPECTROGRAPHER) aPTT 34 28 - 38 sec Comment: Interpretive Data Heparin therapeutic range: 66.0 - 100.0 seconds. Range based on correlation with therapeutic heparin activity range of 0.3 - 0.7 Units/mL. Current interpretive data was last revised on 2022. Blood 03/20/2024 9:27 AM SPECTROGRAPHER 03/20/2024 9:41 AM SPECTROGRAPHER Narrative [facility] - 03/20/2024 9:57 AM SPECTROGRAPHER Baseline prior to heparin initiation Benny SOLIS LAB BLOOD ORDERABLES Final R [facility] Performing Organization Address [facility] Co de Phone Number [facility] [address] [facility] [place] [address] * (ABNORMAL) Protime-INR (03/20/2024 9:27 AM SPECTROGRAPHER) PT 14.9(H) 9.7 - 13.0 sec INR 1.37(H) 0.90 - 1.[address] [facility] Comment: Interpretive data Oral anticoagulant therapeutic ranges: Venous thromboembolism prophylaxis or treatment: 2.0-3.0 CARDIOLOGY Standard range: 2.0-3.0 High-intensity range: 2.5-3.5 Refer to indication-specific guidelines for appropriate target ranges for prosthetic heart valve replacement. Current interpretive data was last revised on 2019. Blood 03/20/2024 9:27 AM SPECTROGRAPHER 03/20/2024 9:41 AM SPECTROGRAPHER Narrative [facility] - 03/20/2024 9:57 AM SPECTROGRAPHER Baseline prior to heparin initiation us Benny SOLIS LAB BLOOD ORDERABLES Final R esult [facility] [address] Department [place] [address] * XR Chest 1 View - Portable - in AM (03/20/2024 9:17 AM SPECTROGRAPHER) Anatomical Region Laterality Modality Body, Chest N/A Computed Radiogr aphy 03/20/2024 2:59 PM SPECTROGRAPHER Impressions 03/20/2024 2:59 PM SPECTROGRAPHER Comparison is made to prior examination 03/19/2024. Unchanged median sternotomy wires and aortic valve replacement. Right internal jugular central venous catheter tip overlies superior caval atrial junction. Surgical drain is in place. Stable to minimally increased bibasilar opacities favored represent atelectasis with possible small left pleural effusion. No pneumothorax. Unchanged cardiomegaly. Electronically signed by: Gian Henriquez M.D. Narrative 03/20/2024 2:59 PM SPECTROGRAPHER EXAMINATION: XR CHEST 1 VIEW Procedure Note [...] by: Gian Henriquez M.D. us Ale Mcknight [employer] IMG XR PROCEDURES Final Result * eGFR (03/20/2024 1:03 AM SPECTROGRAPHER) eGFR 72 >=60 mL/min/1. 73 m2 Comment: [...] last reviewed 2021. Blood 03/20/2024 1:03 AM SPECTROGRAPHER 03/20/2024 1:33 AM SPECTROGRAPHER Brenda Mayberry NP LAB BLOOD ORDERABLES Final Result Performing Organization Address City/[facility]/ZIP Co de Phone Number [facility] [address] [facility] Personal [employer] [place], [place] [id number] * Calcium, ionized (03/20/2024 1:03 AM SPECTROGRAPHER) Pathologist [facility] Calcium, Ionized 4.80 4.50 - 5.10 mg/dL Blood 03/20/2024 1:03 AM SPECTROGRAPHER 03/20/2024 1:11 AM SPECTROGRAPHER Brenda Mayberry NP LAB BLOOD ORDERABLES Final Result Performing Organization Address City/[facility]/ZIP Co de Phone Number [facility] [address] Department of [place] [address] * (ABNORMAL) CBC without differential (03/20/2024 1:03 AM SPECTROGRAPHER) Pathologist [facility] WBC 12.7(H) 3.8 - 9.9 K/cumm Hgb 12.2(L) 13.0 - 17.5 g/dL [facility] Hct 35.9(L) 38.9 - 50.3 % [facility] Plt 104(L) 150 - 400 K/cumm [facility] MPV 10.0 9.1 - 12.3 fL [facility] RBC 4.04(L) 4.30 - 5.80 M/cumm [facility] MCV 88.9 81.3 - 96.4 fL [facility] MCH 30.2 27.1 - 33.3 pg [facility] MCHC 34.0 32.3 - 35.7 g/dL [facility] RDW CV 12.8 11.1 - 14.9 % [facility] RDW SD 41.5 35.7 - 48.1 fL [facility] NRBC abs 0.00 0.00 - 0.01 K/cumm [facility] Blood 03/20/2024 1:03 AM SPECTROGRAPHER 03/20/2024 1:33 AM SPECTROGRAPHER Ale Mcknight [employer] LAB BLOOD ORDERABLES Fin al Result Performing Organization Address City/[facility]/ZIP Co de Phone Number [facility] [address] [facility] [place] [address] * Magnesium (03/20/2024 1:03 AM SPECTROGRAPHER) [facility] [address] Magnesium 2.0 1.4 - 2.5 mg/dL Blood 03/20/2024 1:03 AM SPECTROGRAPHER 03/20/2024 1:33 AM SPECTROGRAPHER Ale Mcknight [employer] LAB BLOOD ORDERABLES Fin al Result Performing Organization Address City/[facility] Co de Phone Number [facility] [address] Department of [place] [address] * (ABNORMAL) Renal function panel (03/20/2024 1:03 AM SPECTROGRAPHER) [facility] [address] Sodium 132(L) 135 - 145 mmol/L Potassium, pl 4.5 3.3 - 4.9 mmol/L [facility] Chloride 99 97 - 110 mmol/L [facility] CO2 21(L) 22 - 32 mmol/L [facility] Anion gap 12 2 - 15 mmol/L [facility] BUN 17 6 - 25 mg/dL [facility] Creatinine 1.03 0.80 - 1.30 mg/dL [facility] Glucose 119 70 - 199 mg/dL [facility] Comment: Interpretive Data Fasting glucose >/= 126 [...] 2022. Calcium 8.8 8.5 - 10.3 mg/dL [facility] Phosphorus, pl 2.7 2.3 - 4.5 mg/dL [facility] Albumin 3.6 3.5 - 5.0 g/dL [facility] Blood 03/20/2024 1:03 AM SPECTROGRAPHER 03/20/2024 1:33 AM SPECTROGRAPHER Ale Mcknight NP LAB BLOOD ORDERABLES Fin al Result [facility] [address] Department of Laboratories [place], [place] [id number] * Prepare RBC: 2 Units (03/19/2024 4:56 PM SPECTROGRAPHER) [facility] [address] Product code [id number] [facility] Unit Number [id number] 2-F [facility] Product Blood Type OPOS [facility] Dispense Status RETURNED [facility] Product code [id number] Unit Number [id number] 3-Q [facility] Product Blood Type OPOS [facility] Dispense Status RETURNED [facility] Blood 03/19/2024 4:56 PM SPECTROGRAPHER Narrative [facility] - 03/19/2024 5:48 PM SPECTROGRAPHER Specify Procedure:->iliac stent Are special requirements needed? (All products are leukoreduced and CMV- safe)- >No Date required:-[id number] LRRBC # of [id number] Reasons:-Hold for procedure (specify procedure)} us Basil Adhikari MD BLOOD BANK PRODUCT ORDER AMARA Final Result [facility] [address] Department [place] [address] * CTA Abdomen Pelvis (03/19/2024 9:06 AM SPECTROGRAPHER) Anatomical Region Laterality Modality Body N/A Computed Tomogra phy 03/19/2024 12:2 8 PM SPECTROGRAPHER Impressions 03/19/2024 12:49 PM SPECTROGRAPHER 1. Left common iliac artery aneurysm measuring [...] Josr Lindsey M.D. Narrative 03/19/2024 12:49 PM SPECTROGRAPHER EXAMINATION: CT ANGIOGRAPHY OF THE ABDOMEN AND [...] by: Josr Lindsey M.D. us Brenda Mayberry [employer] IMG CT PROCEDURES Final Re sult * Potassium (03/19/2024 6:48 AM SPECTROGRAPHER) Potassium, pl 4.7 3.3 - 4.9 mmol/L Blood 03/19/2024 6:48 AM SPECTROGRAPHER 03/19/2024 7:04 AM SPECTROGRAPHER us Brenda Mayberry NP LAB BLOOD ORDERABLES Final Result [facility] [address] Department of Laboratories [place], [place] [id number] * Critical Care (03/19/2024 6:40 AM SPECTROGRAPHER) Narrative Gian Robertson MD - 03/19/2024 6:40 AM SPECTROGRAPHER Brenda Mayberry NP 03/19/2024 10:29 AM Critical Care Performed by: Brenda Mayberry NP Authorized by: Brenda Mayberry NP CRITICAL CARE: Team: [facility] CT Shift: AM Level of [...] plan with the patient's team and other medical/domestic travel consultant staff. This time was in addition to and separate from care provided by other practitioners on this day of service. us Brenda Yamile Jefe [employer] IN CLINIC/BEDSIDE ORDERABL ES Final Result * XR Chest 1 View - Portable - in AM (03/19/2024 6:37 AM SPECTROGRAPHER) Anatomical Region Laterality Modality Body, Chest N/A Computed Radiogr aphy 03/19/2024 7:56 AM SPECTROGRAPHER Impressions 03/19/2024 7:56 AM SPECTROGRAPHER Comparison is made to prior chest radiograph [...] Josselin Xavier M.D. Narrative 03/19/2024 7:56 AM SPECTROGRAPHER EXAMINATION: XR CHEST 1 VIEW Procedure Note [...] signed by: Josselin Xavier M.D. Ale Mcknight [employer] IMG XR PROCEDURES Final Result * POCT glucose (03/19/2024 6:01 AM SPECTROGRAPHER) Glucose, POC 110 70 - 199 mg/dL Comment: For Glucose values <35 mg/dl when Hematocrit is >60 mg/dl,the test may not accurately detect significant hypoglycemia,and testing in the Laboratory should be considered if clinically indicated. Blood 03/19/2024 6:01 AM SPECTROGRAPHER 03/19/2024 6:01 AM SPECTROGRAPHER us Basil Adhikari MD LAB POCT ORDERABLES - DE VICE Final Result Performing Organization Address [facility] Co de Phone Number [facility] [address] [facility] [place] [address] * POCT glucose (03/19/2024 2:13 AM SPECTROGRAPHER) Pathologist [facility] Glucose, POC 111 70 - 199 mg/dL Comment: For Glucose values <35 mg/dl when Hematocrit is >60 mg/dl,the test may not accurately detect significant hypoglycemia,and testing in the Laboratory should be considered if clinically indicated. Blood 03/19/2024 2:13 AM SPECTROGRAPHER 03/19/2024 2:13 AM SPECTROGRAPHER Basil Adhikari MD LAB POCT ORDERABLES - DE VICE Final Result Performing Organization Address [facility] Co de Phone Number [facility] [address] [facility] [place] [address] * POCT glucose (03/19/2024 12:18 AM SPECTROGRAPHER) [facility] Glucose, POC 145 70 - 199 mg/dL Comment: For Glucose values <35 mg/dl when Hematocrit is >60 mg/dl,the test may not accurately detect significant hypoglycemia,and testing in the Laboratory should be considered if clinically indicated. Blood 03/19/2024 12:1 8 AM SPECTROGRAPHER 03/19/2024 12:18 AM SPECTROGRAPHER Basil Adhikari MD LAB POCT ORDERABLES - DE VICE Final Result Performing Organization Address [facility] Co de Phone Number [facility] [address] [facility] [place] [address] * eGFR (03/19/2024 12:04 AM SPECTROGRAPHER) Pathologist [facility] eGFR 85 >=60 mL/min/1. 73 m2 Comment: [...] reviewed 2021. Blood 03/19/2024 12:0 4 AM SPECTROGRAPHER 03/19/2024 12:58 AM SPECTROGRAPHER Brenda Mayberry NP LAB BLOOD ORDERABLES Final Result Performing Organization Address City/[facility]/ZIP Co de Phone Number [facility] [address] Department of [place] [address] * (ABNORMAL) Calcium, ionized (03/19/2024 12:04 AM SPECTROGRAPHER) Calcium, Ionized 4.47(L) 4.50 - 5.10 mg/dL Blood 03/19/2024 12:0 4 AM SPECTROGRAPHER 03/19/2024 12:26 AM SPECTROGRAPHER Brenda Mayberry NP LAB BLOOD ORDERABLES Final Result Performing Organization Address City/[facility]/ZIP Co de Phone Number [facility] [address] Department of [place] [address] * (ABNORMAL) CBC without differential (03/19/2024 12:04 AM SPECTROGRAPHER) WBC 8.7 3.8 - 9.9 K/cumm Hgb 12.5(L) 13.0 - 17.5 g/dL [facility] Hct 36.8(L) 38.9 - 50.3 % [facility] Plt 103(L) 150 - 400 K/cumm [facility] MPV 10.4 9.1 - 12.3 fL [facility] RBC 4.14(L) 4.30 - 5.80 M/cumm [facility] MCV 88.9 81.3 - 96.4 fL [facility] MCH 30.2 27.1 - 33.3 pg [facility] MCHC 34.0 32.3 - 35.7 g/dL [facility] RDW CV 12.6 11.1 - 14.9 % [facility] RDW SD 41.0 35.7 - 48.1 fL [facility] NRBC abs 0.00 0.00 - 0.01 K/cumm [facility] Blood 03/19/2024 12:0 4 AM SPECTROGRAPHER 03/19/2024 12:58 AM SPECTROGRAPHER Ale Mcknight [employer] LAB BLOOD ORDERABLES Fin al Result Performing Organization Address [facility]/ZIP Co de Phone Number [facility] [address] [place] [address] * Magnesium (03/19/2024 12:04 AM SPECTROGRAPHER) [facility] Magnesium 2.0 1.4 - 2.5 mg/dL Blood 03/19/2024 12:0 4 AM SPECTROGRAPHER 03/19/2024 12:58 AM SPECTROGRAPHER Ale Mcknight [employer] LAB BLOOD ORDERABLES Fin al Result Performing Organization Address [facility] Co de Phone Number [facility] [address] [place] [address] * (ABNORMAL) Renal function panel (03/19/2024 12:04 AM SPECTROGRAPHER) Pathologist [facility] Sodium 131(L) 135 - 145 mmol/L Potassium, pl 5.1(H) 3.3 - 4.9 mmol/L [facility] Comment:Hemolyzed; potassium value may be falsely elevated by as much as 0.6 - 1.0 mmol/L. Suggest redraw and reanalysis Chloride 102 97 - 110 mmol/L [facility] CO2 18(L) 22 - 32 mmol/L [facility] Anion gap 11 2 - 15 mmol/L [facility] BUN 12 6 - 25 mg/dL [facility] Creatinine 0.88 0.80 - 1.30 mg/dL [facility] Glucose 146 70 - 199 mg/dL [facility] Comment: Interpretive Data Fasting glucose >/= 126 [...] 2022. Calcium 8.5 8.5 - 10.3 mg/dL [facility] Phosphorus, pl 3.7 2.3 - 4.5 mg/dL [facility] Albumin 3.7 3.5 - 5.0 g/dL [facility] Blood 03/19/2024 12:0 4 AM SPECTROGRAPHER 03/19/2024 12:58 AM SPECTROGRAPHER Ale Mcknight NP LAB BLOOD ORDERABLES Fin al Result [facility] [address] Department [place] [address] * POCT glucose (03/18/2024 9:02 PM SPECTROGRAPHER) [facility] Glucose, POC 102 70 - 199 mg/dL Comment: For Glucose values <35 mg/dl when Hematocrit is >60 mg/dl,the test may not accurately detect significant hypoglycemia,and testing in the Laboratory should be considered if clinically indicated. Blood 03/18/2024 9:02 PM SPECTROGRAPHER 03/18/2024 9:02 PM SPECTROGRAPHER Basil Adhikari MD LAB POCT ORDERABLES - DE VICE Final Result Performing Organization Address [facility]/ZIP Co de Phone Number [facility] [address] [facility] [place] [address] * (ABNORMAL) Blood gas, arterial (03/18/2024 7:23 PM SPECTROGRAPHER) pH, Art 7.45 7.35 - 7.45 PCO2, Arterial 28(L) 35 - 45 mmHg [facility] PO2, Arterial 195(H) 83 - 108 mmHg [facility] HCO3 Art (Calculated) 20 20 - 30 mmol/L [facility] BE, art -3 mmol/L [facility] Comment: Interpretive Data No Reference Range Established Current Interpretive Data was last revised on 2017 O2 Sat Art (Calculated) 100(H) 94 - 98 % [facility] Blood 03/18/2024 7:23 PM SPECTROGRAPHER 03/18/2024 7:28 PM SPECTROGRAPHER Brenda Mayberry [employer] LAB BLOOD ORDERABLES Final Result Performing Organization Address [facility]/ZIP Co de Phone Number [facility] [address] [facility] Personal [employer] Bureau [place], [place] [id number] * POCT glucose (03/18/2024 7:12 PM SPECTROGRAPHER) Glucose, POC 114 70 - 199 mg/dL Comment: For Glucose values <35 mg/dl when Hematocrit is >60 mg/dl,the test may not accurately detect significant hypoglycemia,and testing in the Laboratory should be considered if clinically indicated. Blood 03/18/2024 7:12 PM SPECTROGRAPHER 03/18/2024 7:12 PM SPECTROGRAPHER Basil Adhikari MD LAB POCT ORDERABLES - DE VICE Final Result Performing Organization Address City/[facility]/ZIP Co de Phone Number [facility] [address] Department [place] [address] * Critical Care (03/18/2024 6:39 PM SPECTROGRAPHER) Narrative Gian Robertson MD - 03/18/2024 6:39 PM SPECTROGRAPHER Roderick Couch DNP 03/19/2024 5:10 AM Critical Care Performed by: Roderick Couch DNP Authorized by: Roderick Couch DNP CRITICAL CARE: Team: [facility] CT Shift: PM Level of [...] plan with the patient's team and other medical/domestic travel consultant staff. This time was in addition to and separate from care provided by other practitioners on this day of service. us Roderick Couch DNP IN CLINIC/BEDSIDE OR DERABLES Final Result * POCT glucose (03/18/2024 6:07 PM SPECTROGRAPHER) [facility] Glucose, POC 82 70 - 199 mg/dL Comment: For Glucose values <35 mg/dl when Hematocrit is >60 mg/dl,the test may not accurately detect significant hypoglycemia,and testing in the Laboratory should be considered if clinically indicated. Blood 03/18/2024 6:07 PM SPECTROGRAPHER 03/18/2024 6:07 PM SPECTROGRAPHER us Basil Adhikari MD LAB POCT ORDERABLES - DE VICE Final Result [facility] [address] Department [place] [address] * XR Chest 1 View - Portable (03/18/2024 4:41 PM SPECTROGRAPHER) Anatomical Region Laterality Modality Body, Chest N/A Computed Radiogr aphy 03/18/2024 6:28 PM SPECTROGRAPHER Impressions 03/18/2024 6:28 PM SPECTROGRAPHER FINDINGS/IMPRESSION: Postoperative changes of ascending aortic replacement is seen with sternotomy wires, and prosthetic aortic valve in place. A right IJ central venous catheter tip terminates in the superior vena cava. The right IJ Hill-Christoph catheter terminates in the main pulmonary artery. Mediastinal drains are seen. Bilateral shoulder arthroplasties are seen. Surgical clips superimposes the neck. Minimal left basilar atelectatic changes are seen. There is no focal consolidation, pleural effusion or pneumothorax. Cardiomediastinum is stable. Electronically signed by: Starla Hidalgo M.D. Narrative 03/18/2024 6:28 PM SPECTROGRAPHER EXAMINATION: XR CHEST 1 VIEW HISTORY: cardiac [...] the superior vena cava. The right IJ Hill-Christoph catheter terminates in the main pulmonary artery. Mediastinal drains are seen. Bilateral shoulder arthroplasties are seen. Surgical clips superimposes the neck. Minimal left basilar atelectatic changes are seen. There is no focal consolidation, pleural effusion or pneumothorax. Cardiomediastinum is stable. Electronically signed by: Starla Hidalgo M.D. us Brenda Mayberry [employer] IMG XR PROCEDURES Final Re sult * POCT glucose (03/18/2024 4:27 PM SPECTROGRAPHER) Glucose, POC 121 70 - 199 mg/dL Comment: For Glucose values <35 mg/dl when Hematocrit is >60 mg/dl,the test may not accurately detect significant hypoglycemia,and testing in the Laboratory should be considered if clinically indicated. Blood 03/18/2024 4:27 PM SPECTROGRAPHER 03/18/2024 4:27 PM SPECTROGRAPHER us Basil Adhikari MD LAB POCT ORDERABLES - DE VICE Final Result [facility] [address] Department [place] [address] * Critical Care (03/18/2024 4:19 PM SPECTROGRAPHER) Narrative Gian Robertson MD - 03/18/2024 4:19 PM SPECTROGRAPHER Brenda Mayberry NP 03/18/2024 5:34 PM Critical Care Performed by: Brenda Mayberry NP Authorized by: Brenda Mayberry NP CRITICAL CARE: Team: [facility] CT Shift: AM Level of [...] plan with the ICU team and other medical/domestic travel consultant staff, making frequent assessments and decisions [...] spent time documenting in the medical record Brenda Mayberry NP IN CLINIC/BEDSIDE ORDERABL ES Final Result * eGFR (03/18/2024 4:17 PM SPECTROGRAPHER) eGFR 81 >=60 mL/min/1. 73 m2 Comment: [...] last reviewed 2021. Blood 03/18/2024 4:17 PM SPECTROGRAPHER 03/18/2024 4:32 PM SPECTROGRAPHER Brenda Mayberry NP LAB BLOOD ORDERABLES Final Result Performing Organization Address [facility] Co de Phone Number [facility] [address] Department Personal [employer] Bureau [place], [place] [id number] * (ABNORMAL) Calcium, ionized (03/18/2024 4:17 PM SPECTROGRAPHER) Calcium, Ionized 5.37(H) 4.50 - 5.10 mg/dL Blood 03/18/2024 4:17 PM SPECTROGRAPHER 03/18/2024 4:32 PM SPECTROGRAPHER Brenda Mayberry NP LAB BLOOD ORDERABLES Final Result Performing Organization Address [facility] de Phone Number [facility] [address] Department of [place] [address] * aPTT (03/18/2024 4:17 PM SPECTROGRAPHER) aPTT 37 28 - 38 sec Comment: Interpretive Data Heparin therapeutic range: 66.0 - 100.0 seconds. Range based on correlation with therapeutic heparin activity range of 0.3 - 0.7 Units/mL. Current interpretive data was last revised on 2022. Blood 03/18/2024 4:17 PM SPECTROGRAPHER 03/18/2024 4:32 PM SPECTROGRAPHER Brenda Mayberry NP LAB BLOOD ORDERABLES Final Result Performing Organization Address [facility]/ZIP Co de Phone Number [facility] [address] Department [place] [address] * (ABNORMAL) Protime-INR (03/18/2024 4:17 PM SPECTROGRAPHER) [facility] PT 16.0(H) 9.7 - 13.0 sec INR 1.47(H) 0.90 - 1.20 [facility] Comment: Interpretive data Oral anticoagulant therapeutic ranges: Venous thromboembolism prophylaxis or treatment: 2.0-3.0 CARDIOLOGY Standard range: 2.0-3.0 High-intensity range: 2.5-3.5 Refer to indication-specific guidelines for appropriate target ranges for prosthetic heart valve replacement. Current interpretive data was last revised on 2019. Blood 03/18/2024 4:17 PM SPECTROGRAPHER 03/18/2024 4:32 PM SPECTROGRAPHER Brenda Mayberry NP LAB BLOOD ORDERABLES Final Result [facility] [address] Department [place] [address] * (ABNORMAL) CBC without differential (03/18/2024 4:17 PM SPECTROGRAPHER) [facility] WBC 8.5 3.8 - 9.9 K/cumm Hgb 11.1(L) 13.0 - 17.5 g/dL [facility] Hct 31.9(L) 38.9 - 50.3 % [facility] Plt 95(L) 150 - 400 K/cumm [facility] MPV 9.2 9.1 - 12.3 fL [facility] RBC 3.65(L) 4.30 - 5.80 M/cumm [facility] MCV 87.4 81.3 - 96.4 fL [facility] MCH 30.4 27.1 - 33.3 pg [facility] MCHC 34.8 32.3 - 35.7 g/dL [facility] RDW CV 12.5 11.1 - 14.9 % [facility] RDW SD 39.9 35.7 - 48.1 fL [facility] NRBC abs 0.00 0.00 - 0.01 K/cumm [facility] Blood 03/18/2024 4:17 PM SPECTROGRAPHER 03/18/2024 4:32 PM SPECTROGRAPHER Brenda Mayberry [employer] LAB BLOOD ORDERABLES Final Result Performing Organization Address [facility] Co de Phone Number [facility] [address] [facility] [place] [address] * Phosphorus (03/18/2024 4:17 PM SPECTROGRAPHER) [facility] Phosphorus, pl 3.6 2.3 - 4.5 mg/dL Blood 03/18/2024 4:17 PM SPECTROGRAPHER 03/18/2024 4:32 PM SPECTROGRAPHER Brenda Mayberry NP LAB BLOOD ORDERABLES Final Result Performing Organization Address [facility] de Phone Number [facility] [address] Department [place] [address] * Magnesium (03/18/2024 4:17 PM SPECTROGRAPHER) [facility] Magnesium 2.3 1.4 - 2.5 mg/dL Blood 03/18/2024 4:17 PM SPECTROGRAPHER 03/18/2024 4:32 PM SPECTROGRAPHER Brenda Mayberry NP LAB BLOOD ORDERABLES Final Result Performing Organization Address [facility] de Phone Number [facility] [address] [facility] [place] [address] * (ABNORMAL) Blood gas, arterial (03/18/2024 4:17 PM SPECTROGRAPHER) [facility] pH, Art 7.41 7.35 - 7.45 PCO2, Arterial 33(L) 35 - 45 mmHg [facility] PO2, Arterial 168(H) 83 - 108 mmHg [facility] HCO3 Art (Calculated) 21 20 - 30 mmol/L [facility] BE, art -3 mmol/L [facility] Comment: Interpretive Data No Reference Range Established Current Interpretive Data was last revised on 2017 O2 Sat Art (Calculated) 100(H) 94 - 98 % [facility] Blood 03/18/2024 4:17 PM SPECTROGRAPHER 03/18/2024 4:32 PM SPECTROGRAPHER Brenda Mayberry NP LAB BLOOD ORDERABLES Final Result Performing Organization Address City/[facility] Co de Phone Number [facility] [address] Department [place] [address] * (ABNORMAL) Basic metabolic panel (03/18/2024 4:17 PM SPECTROGRAPHER) Sodium 137 135 - 145 mmol/L Potassium, pl 4.3 3.3 - 4.9 mmol/L [facility] Chloride 108 97 - 110 mmol/L [facility] CO2 21(L) 22 - 32 mmol/L [facility] Anion gap 8 2 - 15 mmol/L [facility] BUN 12 6 - 25 mg/dL [facility] Creatinine 0.93 0.80 - 1.30 mg/dL [facility] Glucose 124 70 - 199 mg/dL [facility] Comment: Interpretive Data Fasting glucose >/= 126 [...] 2022. Calcium 9.0 8.5 - 10.3 mg/dL [facility] Blood 03/18/2024 4:17 PM SPECTROGRAPHER 03/18/2024 4:32 PM SPECTROGRAPHER Brenda Mayberry NP LAB BLOOD ORDERABLES Final Result Performing Organization Address [facility] de Phone Number [facility] [address] [facility] [place] [address] * aPTT (03/18/2024 3:38 PM SPECTROGRAPHER) Pathologist [facility] aPTT 38 28 - 38 sec Comment: Interpretive Data Heparin therapeutic range: 66.0 - 100.0 seconds. Range based on correlation with therapeutic heparin activity range of 0.3 - 0.7 Units/mL. Current interpretive data was last revised on 2022. Blood 03/18/2024 3:38 PM SPECTROGRAPHER 03/18/2024 3:38 PM SPECTROGRAPHER Basil Adhikari MD LAB BLOOD ORDERABLES Fin al Result Performing Organization Address [facility] de Phone Number [facility] [address] [facility] [place] [address] * (ABNORMAL) Protime-INR (03/18/2024 3:38 PM SPECTROGRAPHER) [facility] PT 17.5(H) 9.7 - 13.0 sec INR 1.60(H) 0.90 - 1.20 [facility] Comment: Interpretive data Oral anticoagulant therapeutic ranges: Venous thromboembolism prophylaxis or treatment: 2.0-3.0 CARDIOLOGY Standard range: 2.0-3.0 High-intensity range: 2.5-3.5 Refer to indication-specific guidelines for appropriate target ranges for prosthetic heart valve replacement. Current interpretive data was last revised on 2019. Blood 03/18/2024 3:38 PM SPECTROGRAPHER 03/18/2024 3:38 PM SPECTROGRAPHER Basil Adhikari MD LAB BLOOD ORDERABLES Fin al Result Performing Organization Address [facility] Co de Phone Number [facility] [address] [facility] [place] [address] * Fibrinogen (03/18/2024 3:38 PM SPECTROGRAPHER) Pathologist [facility] Fibrinogen 184 170 - 400 mg/dL Blood 03/18/2024 3:38 PM SPECTROGRAPHER 03/18/2024 3:38 PM SPECTROGRAPHER Basil Adhikari MD LAB BLOOD ORDERABLES Fin al Result Performing Organization Address [facility] Co de Phone Number [facility] [address] [place] [address] * (ABNORMAL) CBC without differential (03/18/2024 3:38 PM SPECTROGRAPHER) [facility] WBC 14.2(H) 3.8 - 9.9 K/cumm Hgb 10.6(L) 13.0 - 17.5 g/dL [facility] Hct 30.7(L) 38.9 - 50.3 % [facility] Plt 108(L) 150 - 400 K/cumm [facility] MPV 9.5 9.1 - 12.3 fL [facility] RBC 3.46(L) 4.30 - 5.80 M/cumm [facility] MCV 88.7 81.3 - 96.4 fL [facility] MCH 30.6 27.1 - 33.3 pg [facility] MCHC 34.5 32.3 - 35.7 g/dL [facility] RDW CV 12.5 11.1 - 14.9 % [facility] RDW SD 40.1 35.7 - 48.1 fL [facility] NRBC abs 0.00 0.00 - 0.01 K/cumm [facility] Blood 03/18/2024 3:38 PM SPECTROGRAPHER 03/18/2024 3:38 PM SPECTROGRAPHER Basil Adhikari MD LAB BLOOD ORDERABLES Fin al Result Performing Organization Address [facility]/ZIP Co de Phone Number [facility] [address] Department THEMA [place], [place] [id number] * POC Activated Clotting Time, High Range (03/18/2024 3:35 PM SPECTROGRAPHER) ACT 130 87 - 138 sec Blood 03/18/2024 3:35 PM SPECTROGRAPHER 03/18/2024 3:35 PM SPECTROGRAPHER us Basil Adhikari MD LAB BLOOD ORDERABLES Fin al Result [facility] [address] Department [place] [address] * (ABNORMAL) POC Blood Gas and Chemistries, Arterial - (03/18/2024 3:35 PM SPECTROGRAPHER) [facility] [address] pH, Art POC 7.37 7.35 - 7.45 pCO2, Art POC 42 35 - 45 mmHg [facility] pO2, Art POC 330(H) 80 - 108 mmHg [facility] Na, POC 130(L) 135 - 145 mmol/L [facility] K POC 4.6 3.3 - 4.9 mmol/L [facility] Comment: Interpretive Data This method is not able to assess for hemolysis, which may falsely increase potassium concentrations. If further testing is needed to evaluate this result, consider in-laboratory plasma potassium. Current Interpretive Data was last revised on 2021. Cl, POC 103 97 - 110 mmol/L [facility] Ionized Ca, POC 6.06(H) 4.50 - 5.10 mg/dL [facility] Glucose, POC 157 70 - 199 mg/dL [facility] Lactate, POC 1.0 0.0 - 2.0 mmol/L [facility] O2Hb, Art POC 96.9(H) 90.0 - 95.0 % [facility] Carboxhgb fract 1.0 0.0 - 2.9 % [facility] Methemoglobin 1.3 0.0 - 1.9 % [facility] HHb, POC 0.9 0.0 - 5.0 % [facility] SO2 (shayne) arterial 99(H) 90 - 95 % [facility] BE, art, POC -1.0 -2.0 - 2.0 mmol/L [facility] HCO3, Art POC 24 20 - 30 mmol/L [facility] Hct, POC 34.0(L) 38.9 - 50.3 % [facility] Total Hb, POC 11.2(L) 13.0 - 17.5 g/dL [facility] Blood 03/18/2024 3:35 PM SPECTROGRAPHER 03/18/2024 3:35 PM SPECTROGRAPHER us Basil Adhikari MD LAB POCT ORDERABLES - DE VICE Final Result [facility] [address] Department [place] [address] * (ABNORMAL) POC Blood Gas and Chemistries, Arterial - (03/18/2024 2:41 PM SPECTROGRAPHER) pH, Art POC 7.33(L) 7.35 - 7.45 pCO2, Art POC 45 35 - 45 mmHg [facility] pO2, Art POC 345(H) 80 - 108 mmHg [facility] Na, POC 129(L) 135 - 145 mmol/L [facility] K POC 5.3(H) 3.3 - 4.9 mmol/L [facility] Comment: Interpretive Data This method is not able to assess for hemolysis, which may falsely increase potassium concentrations. If further testing is needed to evaluate this result, consider in-laboratory plasma potassium. Current Interpretive Data was last revised on 2021. Cl, POC 102 97 - 110 mmol/L [facility] Ionized Ca, POC 4.66 4.50 - 5.10 mg/dL [facility] Glucose, POC 153 70 - 199 mg/dL [facility] Lactate, POC 0.8 0.0 - 2.0 mmol/L [facility] O2Hb, Art POC 96.6(H) 90.0 - 95.0 % [facility] Carboxhgb fract 1.2 0.0 - 2.9 % [facility] Methemoglobin 1.4 0.0 - 1.9 % [facility] HHb, POC 0.8 0.0 - 5.0 % [facility] SO2 (shayne) arterial 99(H) 90 - 95 % [facility] BE, art, POC -2.3(L) -2.0 - 2.0 mmol/L [facility] HCO3, Art POC 23 20 - 30 mmol/L [facility] Hct, POC 32.0(L) 38.9 - 50.3 % [facility] Total Hb, POC 10.7(L) 13.0 - 17.5 g/dL [facility] Blood 03/18/2024 2:41 PM SPECTROGRAPHER 03/18/2024 2:41 PM SPECTROGRAPHER Basil Adhikari MD LAB POCT ORDERABLES - DE VICE Final Result Performing Organization Address [facility]/ZIP Co de Phone Number [facility] [address] Department [place] [address] * (ABNORMAL) POC Activated Clotting Time, High Range (03/18/2024 2:40 PM SPECTROGRAPHER) ACT 474(H) 87 - 138 sec Blood 03/18/2024 2:40 PM SPECTROGRAPHER 03/18/2024 2:40 PM SPECTROGRAPHER Basil Adhikari MD LAB BLOOD ORDERABLES Fin al Result Performing Organization Address [facility]/ZIP Co de Phone Number [facility] [address] [employer] [place], [place] [id number] * (ABNORMAL) POC Blood Gas and Chemistries, Venous - (03/18/2024 2:30 PM SPECTROGRAPHER) pH, Boyd POC 7.34 7.32 - 7.45 pCO2, boyd POC 47 40 - 50 mmHg [facility] pO2, boyd POC 52(H) 35 - 42 mmHg [facility] Na, POC 131(L) 135 - 145 mmol/L [facility] K POC 5.0(H) 3.3 - 4.9 mmol/L [facility] Comment: Interpretive Data This method is not able to assess for hemolysis, which may falsely increase potassium concentrations. If further testing is needed to evaluate this result, consider in-laboratory plasma potassium. Current Interpretive Data was last revised on 2021. Cl, POC 101 97 - 110 mmol/L [facility] Ionized Ca, POC 4.65 4.50 - 5.10 mg/dL [facility] Glucose, POC 130 70 - 199 mg/dL [facility] Lactate, POC 0.6 0.0 - 2.0 mmol/L [facility] O2Hb, Boyd POC 81.4(L) 90.0 - 95.0 % [facility] Carboxhgb fract 1.5 0.0 - 2.9 % [facility] Methemoglobin 1.1 0.0 - 1.9 % [facility] HHb, POC 16.0(H) 0.0 - 5.0 % [facility] O2 Sat, Boyd POC (Shayne) 84(H) 68 - 77 % [facility] Base excess, boyd POC -0.7 mmol/L [facility] HCO3, Boyd POC 24 20 - 30 mmol/L [facility] Hct, POC 33.0(L) 38.9 - 50.3 % [facility] Total Hb, POC 11.0(L) 13.0 - 17.5 g/dL [facility] Blood 03/18/2024 2:30 PM SPECTROGRAPHER 03/18/2024 2:30 PM SPECTROGRAPHER us Basil Adhikari MD LAB POCT ORDERABLES - DE VICE Final Result [address] [facility] Department [place] [address] * Surgical pathology (03/18/2024 2:09 PM SPECTROGRAPHER) Tissue (Aorta) 03/18/2024 2: 09 PM SPECTROGRAPHER Comment:Placed in formalin a t end of case Narrative PATHOLOGY [facility] - 03/22/2024 11:52 AM SPECTROGRAPHER [place] [address] [place], [place] [address] Tele: Josie Cárdenas MD - Employment Training Specialist Note to Patients: This report may contain [...] PATHOLOGY REPORT Patient Name: GIAN LEE [address]: [address] [place] [address] Gender: M : 1940 (Age: 83) Service: Cardiothoracic Location: [place] [address], Hospital #: [id number] [place] [facility] [place] Taken: 03/18/2024 Received 03/18/2024 Reported: 03/22/2024 Physician(s): Hallie Hernandez M.D. 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 Report [...] The vascular wall intact, and mildly hemorrhagic. Television Host sections are submitted as follows: A1 - Television Host sections, A2-A6 - Additional sections. [facility]/03/19/2024 14:38 DMS,DICK MICROSCOPIC DESCRIPTION: Microscopic examination supports the above [...] a non-neoplastic entity. Clerical Data Follows A; 42292, 62764, 59858(6) REPORT IMAGES AND/OR SCANNED DOCUMENTS ONLY VIEWABLE IN PDF FORMAT The immunohistochemical test(s) cited in this report, if any, was developed and its performance characteristics determined by [facility] Pathology Department. It has not been cleared or approved by the U.S. Food and Drug Administration. The FDA has determined that such clearance or approval is not necessary. This test is used for clinical purposes. It should not be regarded as investigational or for research. [facility] Laboratory is certified under the Clinical Laboratory [...] part or completely in the following laboratories: [facility], [facility], [address] [place] [address]. Basil Adhikari MD LAB PATHOLOGY ORDERABLES Final Result Performing Organization Address [facility] Co de Phone Number PATHOLOGY [facility] Laboratory Receiving [address] [place], [place] [id number] * (ABNORMAL) POC Activated Clotting Time, High Range (03/18/2024 2:08 PM SPECTROGRAPHER) ACT 627(H) 87 - 138 sec Blood 03/18/2024 2:08 PM SPECTROGRAPHER 03/18/2024 2:08 PM SPECTROGRAPHER Basil Adhikari MD LAB BLOOD ORDERABLES Fin al Result Performing Organization Address [facility]/ZIP Co de Phone Number [facility] [address] Department [place] [address] * (ABNORMAL) POC Blood Gas and Chemistries, Arterial - (03/18/2024 2:08 PM SPECTROGRAPHER) pH, Art POC 7.35 7.35 - 7.45 pCO2, Art POC 44 35 - 45 mmHg [facility] pO2, Art POC 417(H) 80 - 108 mmHg [facility] Na, POC 129(L) 135 - 145 mmol/L [facility] K POC 5.7(H) 3.3 - 4.9 mmol/L [facility] Comment: Interpretive Data This method is not able to assess for hemolysis, which may falsely increase potassium concentrations. If further testing is needed to evaluate this result, consider in-laboratory plasma potassium. Current Interpretive Data was last revised on 2021. Cl, POC 103 97 - 110 mmol/L [facility] Ionized Ca, POC 4.68 4.50 - 5.10 mg/dL [facility] Glucose, POC 122 70 - 199 mg/dL [facility] Lactate, POC 0.5 0.0 - 2.0 mmol/L [facility] O2Hb, Art POC 97.5(H) 90.0 - 95.0 % [facility] Carboxhgb fract 1.0 0.0 - 2.9 % [facility] Methemoglobin 0.8 0.0 - 1.9 % [facility] HHb, POC 0.7 0.0 - 5.0 % [facility] SO2 (shayne) arterial 99(H) 90 - 95 % [facility] BE, art, POC -1.4 -2.0 - 2.0 mmol/L [facility] HCO3, Art POC 24 20 - 30 mmol/L [facility] Hct, POC 33.0(L) 38.9 - 50.3 % [facility] Total Hb, POC 11.0(L) 13.0 - 17.5 g/dL [facility] Blood 03/18/2024 2:08 PM SPECTROGRAPHER 03/18/2024 2:08 PM SPECTROGRAPHER us Basil Adhikari MD LAB POCT ORDERABLES - DE VICE Final Result [facility] [address] Department [place] [address] * (ABNORMAL) POC Blood Gas and Chemistries, Arterial - (03/18/2024 1:50 PM SPECTROGRAPHER) pH, Art POC 7.39 7.35 - 7.45 pCO2, Art POC 38 35 - 45 mmHg [facility] pO2, Art POC 426(H) 80 - 108 mmHg [facility] Na, POC 128(L) 135 - 145 mmol/L [facility] K POC 4.4 3.3 - 4.9 mmol/L [facility] Comment: Interpretive Data This method is not able to assess for hemolysis, which may falsely increase potassium concentrations. If further testing is needed to evaluate this result, consider in-laboratory plasma potassium. Current Interpretive Data was last revised on 2021. Cl, POC 101 97 - 110 mmol/L [facility] Ionized Ca, POC 4.82 4.50 - 5.10 mg/dL [facility] Glucose, POC 113 70 - 199 mg/dL [facility] Lactate, POC 0.5 0.0 - 2.0 mmol/L [facility] O2Hb, Art POC 97.1(H) 90.0 - 95.0 % [facility] Carboxhgb fract 1.4 0.0 - 2.9 % [facility] Methemoglobin 1.2 0.0 - 1.9 % [facility] HHb, POC 0.3 0.0 - 5.0 % [facility] SO2 (shayne) arterial 100(H) 90 - 95 % [facility] BE, art, POC -1.7 -2.0 - 2.0 mmol/L [facility] HCO3, Art POC 24 20 - 30 mmol/L [facility] Hct, POC 39.0 38.9 - 50.3 % [facility] Total Hb, POC 12.9(L) 13.0 - 17.5 g/dL [facility] Blood 03/18/2024 1:50 PM SPECTROGRAPHER 03/18/2024 1:50 PM SPECTROGRAPHER us Basil Adhikari MD LAB POCT ORDERABLES - DE VICE Final Result Performing Organization Address [facility]/ZIP Co de Phone Number [facility] [address] Department of [place] [address] * (ABNORMAL) POC Activated Clotting Time, High Range (03/18/2024 1:49 PM SPECTROGRAPHER) ACT 608(H) 87 - 138 sec Blood 03/18/2024 1:49 PM SPECTROGRAPHER 03/18/2024 1:49 PM SPECTROGRAPHER Basil Adhikari MD LAB BLOOD ORDERABLES Fin al Result Performing Organization Address [facility] Co de Phone Number [facility] [address] Department of [place] [address] * BW AN SHEATH INTRODUCER PERFORMABLE, PULMONARY ARTERY CATH, LA AN PROCEDURE PLACEHOLDER (:41 PM SPECTROGRAPHER) Narrative Gamal Asher MD PhD - 03/18/2024 1:41 PM SPECTROGRAPHER Gamal Asher MD PhD 03/18/2024 1:41 PM [...] PhD ANESTHESIA ORDERABLES Fi nal Result * LA AN CENTRAL LINE QUADRUPLE LUMEN, LA AN PROCEDURE PLACEHOLDER (03/18/2024 1:40 PM SPECTROGRAPHER) Gamal Robbins MD PhD - 03/18/2024 1:40 PM SPECTROGRAPHER Gamal Asher MD PhD 03/18/2024 1:41 PM [...] PhD ANESTHESIA ORDERABLES Fi nal Result * LA AN PROCEDURE PLACEHOLDER (03/18/2024 1:39 PM SPECTROGRAPHER) Gamal Robbins MD PhD - 03/18/2024 1:39 PM SPECTROGRAPHER Gamal Asher MD PhD 03/18/2024 1:39 PM [...] PhD ANESTHESIA ORDERABLES Fi nal Result * LA AN PROCEDURE PLACEHOLDER (03/18/2024 1:38 PM SPECTROGRAPHER) Gamal Robbins MD PhD - 03/18/2024 1:38 PM SPECTROGRAPHER Gamal Asher MD PhD 03/18/2024 1:38 PM [...] PhD ANESTHESIA ORDERABLES Fi nal Result * LA AN ELECTIVE ENDOTRACHEAL AIRWAY, LA AN PROCEDURE PLACEHOLDER (03/18/2024 1:37 PM SPECTROGRAPHER) Gamal Robbins MD PhD - 03/18/2024 1:37 PM SPECTROGRAPHER Gamal Asher MD PhD 03/18/2024 1:37 PM [...] PhD ANESTHESIA ORDERABLES Fi nal Result * LA AN PROCEDURE PLACEHOLDER (03/18/2024 1:29 PM SPECTROGRAPHER) Anatomical Region Laterality Modality Other Narrative 03/18/2024 1:29 PM SPECTROGRAPHER Derek Marin MD PhD 03/18/2024 4:18 PM [...] code: LIDIA placement and diagnostic exam, non-congenital (82638) ICD code(s) for medical necessity: I71.2 - [...] inferior: normal 16- Apical septal: normal 17- Center: normal Valves: Aortic Valve: Annulus: dilated Leaflet [...] Clotting Time, High Range (03/18/2024 1:11 PM SPECTROGRAPHER) ACT 111 87 - 138 sec Blood 03/18/2024 1:11 PM SPECTROGRAPHER 03/18/2024 1:11 PM SPECTROGRAPHER Basil Adhikari MD LAB BLOOD ORDERABLES Fin al Result Performing Organization Address City/[facility]/ZIP Co de Phone Number [facility] [address] Department [place] [address] * LIDIA Add-On For OR (03/18/2024 12:05 PM SPECTROGRAPHER) BSA 1.88 m2 CONS SCIMAGE Narrative CONS SCIMAGE - 03/18/2024 12:05 PM SPECTROGRAPHER Procedure Auto Finalized by Rule: BW CV LIDIA DURING CASE OR Please see the Anesthesiologist's Procedure Note for the results. Gamal Asher MD PhD CV ECHO PROCEDURES Final Result CONS SCIMAGE * Check Sample (03/18/2024 9:54 AM SPECTROGRAPHER) ABO Rh O Positive MBC HCLL OTHER 03/18/2024 9:54 AM SPECTROGRAPHER 03/18/2024 10:20 AM SPECTROGRAPHER Basil Adhikari MD LAB BLOOD ORDERABLES Fin al Result [facility] [address] Department [place] [address] [facility] [place] * ECG 12 lead (03/18/2024 9:34 AM SPECTROGRAPHER) 03/18/2024 9:34 AM SPECTROGRAPHER Narrative [facility] - 03/18/2024 10:15 AM SPECTROGRAPHER Vent Rate: 46 bpm RR Interval: 1277 msec LA Interval: 115 msec QRS Duration: 84 msec QT Interval: 430 msec QTC Interval: 391 msec P-R-T Downey: 56 - -19 - -14 degrees IMPRESSION: SINUS BRADYCARDIA WITH SINUS ARRHYTHMIA WITH SHORT LA INTERVAL POSSIBLE ANTERIOR MYOCARDIAL INFARCTION , PROBABLY OLD BORDERLINE ECG Electronically Signed By: Klaus Humphrey MD PhD us Ev Freed [employer] ECG ORDERABLES Final Res ult Performing Organization Address [facility] Co de Phone Number [facility] * Prepare RBC: 4 Units (03/18/2024 9:12 AM SPECTROGRAPHER) Product code [id number] [facility] Unit Number [id number] [facility] Product Blood Type OPOS [facility] Dispense Status RETURNED [facility] Product code [id number] Unit Number [id number] [id number] [facility] Product Blood Type OPOS [facility] Dispense Status RETURNED [facility] Product code [id number] [facility] Unit Number [id number] [id number] [facility] Product Blood Type OPOS [facility] Dispense Status RETURNED [facility] Product code [id number] [facility] Unit Number [id number] 0-U [facility] Product Blood Type OPOS [facility] Dispense Status RETURNED [facility] Blood 03/18/2024 9:12 AM SPECTROGRAPHER Narrative [facility] - 03/22/2024 7:46 AM SPECTROGRAPHER Specify Procedure:->tissue aortic root replacement Are special requirements needed? (All products are leukoreduced and CMV- safe)- >No Date required:-[id number] [facility] [id number] Reasons:-Hold for procedure (specify procedure)} Ev Freed NP BLOOD BANK PRODUCT ORDERA BLES Final Result [facility] [address] Department [place] [address] * Differential, auto (03/15/2024 12:29 PM SPECTROGRAPHER) Neutrophil abs 2.5 1.5 - 6.5 K/cumm Imm gran abs 0.0 0.0 - 0.1 K/cumm [facility] Lymphocyte abs 1.1 0.8 - 3.3 K/cumm [facility] Monocyte abs 0.6 0.2 - 0.8 K/cumm [facility] Eosinophil abs 0.2 0.0 - 0.5 K/cumm [facility] Basophil abs 0.0 0.0 - 0.1 K/cumm [facility] Neutrophil pct 56.5 % [facility] Comment: Interpretive Data Percent cell count reference ranges are not reported, since discordance with absolute values may lead to misinterpretation of CBC data. Current Interpretive Data was last revised on 2017. Imm gran pct 0.5 % [facility] Comment: Interpretive Data Percent cell count reference ranges are not reported, since discordance with absolute values may lead to misinterpretation of CBC data. Current Interpretive Data was last revised on 2017. Lymphocyte pct 23.8 % [facility] Comment: Interpretive Data Percent cell count reference ranges are not reported, since discordance with absolute values may lead to misinterpretation of CBC data. Current Interpretive Data was last revised on 2017. Monocyte pct 14.5 % [facility] Comment: Interpretive Data Percent cell count reference ranges are not reported, since discordance with absolute values may lead to misinterpretation of CBC data. Current Interpretive Data was last revised on 2017. Eosinophil pct 3.8 % [facility] Comment: Interpretive Data Percent cell count reference ranges are not reported, since discordance with absolute values may lead to misinterpretation of CBC data. Current Interpretive Data was last revised on 2017. Basophil pct 0.9 % [facility] Comment: Interpretive Data Percent cell count reference ranges are not reported, since discordance with absolute values may lead to misinterpretation of CBC data. Current Interpretive Data was last revised on 2017. Blood 03/15/2024 12:2 9 PM SPECTROGRAPHER 03/15/2024 12:29 PM SPECTROGRAPHER Basil Adhikari MD LAB BLOOD ORDERABLES Fin al Result Performing Organization Address City/[facility]/ZIP Co de Phone Number [facility] [address] [place] [address] * CBC with auto differential (03/15/2024 12:29 PM SPECTROGRAPHER) WBC 4.4 3.8 - 9.9 K/cumm Hgb 14.5 13.0 - 17.5 g/dL [facility] Hct 42.9 38.9 - 50.3 % [facility] [address] 150 - 400 K/cumm [facility] MPV 9.9 9.1 - 12.3 fL [facility] RBC 4.82 4.30 - 5.80 M/cumm [facility] MCV 89.0 81.3 - 96.4 fL [facility] MCH 30.1 27.1 - 33.3 pg [facility] MCHC 33.8 32.3 - 35.7 g/dL [facility] RDW CV 12.4 11.1 - 14.9 % [facility] RDW SD 40.8 35.7 - 48.1 fL [facility] NRBC abs 0.00 0.00 - 0.01 K/cumm [facility] Blood 03/15/2024 12:2 9 PM SPECTROGRAPHER 03/15/2024 12:29 PM SPECTROGRAPHER Basil Adhikari MD LAB BLOOD ORDERABLES Fin al Result Performing Organization Address City/[facility]/ZIP Co de Phone Number [facility] [address] [place] [address] * Type and screen (03/15/2024 12:29 PM SPECTROGRAPHER) [facility] [address] Alex, indirect Negative ABO Rh O Positive [facility] Blood 03/15/2024 12:2 9 PM SPECTROGRAPHER 03/15/2024 12:45 PM SPECTROGRAPHER Narrative [facility] - 03/15/2024 1:31 PM SPECTROGRAPHER No blood transfusions last 90 days Surgery 03/18/24 No blood transfusions last 90 days Surgery 03/18/24 Has the patient had Daratumumab or Isatuximab in the past 6 months?->No Basil Adhikari MD LAB BLOOD BANK TEST ORDE RABLES Final Result Performing Organization Address [facility] Co de Phone Number [facility] [address] [place] [address] * Hemoglobin A1c (03/15/2024 12:29 PM SPECTROGRAPHER) [facility] [address] Hgb A1C 5.2 4.0 - 5.6 % Estimated Average Glucose 103 mg/dL [facility] Comment: The ADA recommends reporting an estimated Average Glucose (eAG) with all Hemoglobin A1c results using the equation derived from a study of 507 normal and diabetic adults. Minority populations were underrepresented and children were not included. (Diabetes Care 31:5204-3464, 2008). The eAG is not equivalent to a fasting glucose. Blood 03/15/2024 12:2 9 PM SPECTROGRAPHER 03/15/2024 12:29 PM SPECTROGRAPHER Basil Adhikari MD LAB BLOOD ORDERABLES Fin al Result [facility] [address] [place] [address] * eGFR (03/15/2024 12:28 PM SPECTROGRAPHER) [facility] [address] eGFR 65 >=60 mL/min/1. 73 m2 Comment: [...] reviewed 2021. Blood 03/15/2024 12:2 8 PM SPECTROGRAPHER 03/15/2024 12:28 PM SPECTROGRAPHER us Basil Adhikari MD LAB BLOOD ORDERABLES Fin al Result [facility] [address] Department [place] [address] * (ABNORMAL) Comprehensive metabolic panel (03/15/2024 12:28 PM SPECTROGRAPHER) Sodium 134(L) 135 - 145 mmol/L Potassium, pl 4.7 3.3 - 4.9 mmol/L [facility] Chloride 98 97 - 110 mmol/L [facility] CO2 25 22 - 32 mmol/L [facility] Anion gap 11 2 - 15 mmol/L [facility] BUN 12 6 - 25 mg/dL [facility] Creatinine 1.11 0.80 - 1.30 mg/dL [facility] Glucose 82 70 - 199 mg/dL [facility] Comment: Interpretive Data Fasting glucose >/= 126 [...] 2022. Calcium 9.3 8.5 - 10.3 mg/dL [facility] Bilirubin, total 0.8 0.1 - 1.2 mg/dL [facility] Protein, pl 6.8 6.5 - 8.5 g/dL [facility] Albumin 4.5 3.5 - 5.0 g/dL [facility] Alk phos 82 40 - 130 Units/L [facility] ALT 26 7 - 55 Units/L [facility] AST 39 10 - 50 Units/L [facility] Blood 03/15/2024 12:2 8 PM SPECTROGRAPHER 03/15/2024 12:28 PM SPECTROGRAPHER us Basil Adhikari MD LAB BLOOD ORDERABLES Fin al Result [facility] [address] Department [place] [address] from Last 3 Months Insurance [facility] MEDICARE [facility] FEDERAL Advance Directives For more information, please contact: [phone] * Full Code (Latest Code Status on [...] 8:19 AM 09/09/2019 6:53 PM Care Teams Avionics Supervisor Relationship Specialty Start Date End Date Martinez Pace MD [address] [address] PCP - General 05/02/16 Dion Abraham MD [address] [place] [address] Referring Physician Cardiology 02/18/24 Basil Adhikari MD [address] [facility] [address] [place] [address] Consulting Physician Cardiothoracic Surgery 02/19/24
--- OUTSIDE RECORDS SUMMARY | 2024-05-10 09:16 | XMS_ITS | Clinical Summary ---
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 Name Role Phone Martinez Pace MD Primary Care Provider Dion Abraham MD Unavailable [phone] Basil Adhikari MD Unavailable [phone] Allergies No known active allergies Medications PreviDent [...] 1 tablet (88 mcg total) by mouth head of integrated media before breakfast 30 tablet 5 Active midodrine [...] (11/24/2018): Added automatically from request for surgery [id number] Adenomatous polyp of cecum 06/18/2018 Overview (06/18/2018): Added automatically from request for surgery [id number] terminal carman current use of anticoagulant therapy 0 11/07/2016 Basal cell carcinoma (BCC) of antihelix of ear 0 04/16/2016 Ascending aortic aneurysm 09/05/2015 Deep vein thrombosis (DVT) (CMS/HCC) 06/22/2015 Pulmonary embolism 06/22/2015 Thyroid disease Neuropathy Depression Overview (07/18/2017): Depression GARCÍA on CPAP OA (osteoarthritis) History of pulmonary embolus (PE) Encounters Date Type Department Care Team Description 04/16/2024 9:04 AM SUPERINTENDENT MEASUREMENT Anesthesia Event [facility] [address] [place] [phone] Sara Schwartz MD Shelley, Joshua Michael, CRNA 04/16/2024 9:00 AM SUPERINTENDENT MEASUREMENT - 04/16/2024 9:45 AM SUPERINTENDENT MEASUREMENT Surgery [facility] [address] [place] [phone] Roderick Bedolla MD PERCUTANEOUS ENDOSCOPIC GASTROSTOMY 04/09/2024 Orders Only Cardiovascular and Thoracic Surgery [address] [facility] [address] [place] [phone] Ev Freed NP Aneurysm of ascending aorta without rupture (HCC) (Primary Dx); Iliac aneurysm (CMS/HCC) (HCC); Aortic root aneurysm; Other pulmonary embolism without acute cor pulmonale, unspecified chronicity (HCC) 04/03/2024 9:45 AM SUPERINTENDENT MEASUREMENT - 04/20/2024 3:00 PM SUPERINTENDENT MEASUREMENT Hospital Encounter [facility] [phone] Pedro Senior MD Martin, Robert S., MD [...] to an Rehab facility 04/03/2024 Orders Only [facility] Hospitalists [address] [place] [phone] Zoran Leyva DO 03/30/2024 Orders Only Cardiovascular and Thoracic Surgery [address] [facility] [address] [place] [address] Candis Chaparro, RN Aneurysm of ascending aorta without rupture (HCC) (Primary Dx); Iliac artery aneurysm (CMS/HCC) (HCC) 03/29/2024 Telephone Cardiovascular and Thoracic Surgery [address] [facility] [address] [place] [address] Basil Adhikari MD 03/22/2024 3:00 PM SUPERINTENDENT MEASUREMENT - 03/22/2024 5:15 PM SUPERINTENDENT MEASUREMENT Surgery [facility] [address] [place] [phone] Basil Adhikari MD Left internal iliac plug, left iliac aneurysm repair [53068 (CPT )] 03/22/2024 2:54 PM SUPERINTENDENT MEASUREMENT Anesthesia Event [facility] [address] [place] [phone] Gamal Asher MD PhD Deyvi Urrutia MD 03/18/2024 1:30 PM SUPERINTENDENT MEASUREMENT - 03/18/2024 7:50 PM SUPERINTENDENT MEASUREMENT Surgery [facility] Operating Room [address] [place] [phone] Basil Adhikari MD Mini ascending aortic root replacement 03/18/2024 12:47 PM SUPERINTENDENT MEASUREMENT Anesthesia Event [facility] Operating [facility] [address] [place] [phone] Derek Marin MD PhD Gamal Asher MD PhD 03/18/2024 12:10 PM SUPERINTENDENT MEASUREMENT Ancillary Procedure [facility] [address] [place] [phone] 03/18/2024 9:05 AM SUPERINTENDENT MEASUREMENT - 03/27/2024 3:13 PM SUPERINTENDENT MEASUREMENT Hospital Encounter [address] [phone] Basil Adhikari MD Iliac aneurysm (CMS/HCC) (HCC) (Primary Dx); Aortic root aneurysm; S/P AVR Discharge Disposition: Discharge to an Rehab facility 03/15/2024 11:50 AM SUPERINTENDENT MEASUREMENT Lab [facility] Outpatient Lab [address] [place] [phone] Aneurysm of ascending aorta without rupture (HCC); Pre-op evaluation 03/15/2024 10:00 AM SUPERINTENDENT MEASUREMENT Office Visit Cardiovascular and Thoracic Surgery [address] [place] [phone] Basil Adhikari MD Pre-op evaluation (Primary Dx); Aneurysm of ascending aorta without rupture (HCC) 03/11/2024 Telephone Cardiovascular and Thoracic Surgery [address] [place] [phone] Basil Adhikari MD ROLL TUBE SETTER appt 02/11/2024 Orders Only [facility] Cardiac Catheterization Lab [address] [place] [address] Fredrick Peña MD Iliac aneurysm (CMS/HCC) (HCC) (Primary Dx) from Last 3 Months Immunizations Immunization Administration [...] Hx Other Medical shoulder surger y; Comments: [facility] 12/03/2013 - Depression Depression Hx Other Medical right wrist gabi mike; Comments: [facility] 12/03/2013 - GERD (gastroesophageal reflux disease) Thyroid [...] oz pur e alcohol) 2x a day [facility] Utilities Answer Date Recorded In the [...] often do you attend chur ch or quaker services? Never 04/06/2024 Do you belong to any clubs o r organizations such as sabianism groups, unions, fraternal or athletic groups, or [...] any time in the past 12 m [facility], were you homeless or living in a group home (including now)? No 04/06/2024 Personal Safety Answer Date Recorded Have you ever been in or are you currently in a harmful physical or emotional relationship or is someone making you feel afraid or unsafe? Denies 04/03/2024 Sex and Gender Information Value Date Recorded Sex Assigned at Not on file Legal Sex Male 12:56 AM SUPERINTENDENT MEASUREMENT Gender Identity Not on file Sexual Orientation Straight 10/21/2019 9: 52 AM CDT Obstetrics History Last Filed Vital Signs Vital Sign Reading Time Taken Comments Blood Pressure 96/54 04/20/2024 12:33 PM SUPERINTENDENT MEASUREMENT Pulse 63 04/20/2024 12:33 PM SUPERINTENDENT MEASUREMENT Temperature 36.1 C (97 F) 04/20/2024 12:33 PM SUPERINTENDENT MEASUREMENT Respiratory Rate 16 04/20/2024 12:33 PM SUPERINTENDENT MEASUREMENT Oxygen Saturation 98% 04/20/2024 12:33 PM SUPERINTENDENT MEASUREMENT Inhaled Oxygen Concentration - - Weight 66.9 kg (147 lb 7.8 oz) 04/19/2024 8:12 A M SUPERINTENDENT MEASUREMENT Height 172.7 cm (5' 8 ) 04/16/2024 8:23 AM SUPERINTENDENT MEASUREMENT Body Mass Index 22.43 04/16/2024 8:23 AM SUPERINTENDENT MEASUREMENT Plan of Treatment Health Maintenance Due Date Last Done Comments Depression Screening 1940 Hepatitis B Screening 07/30/1958 Pneumococcal vaccine 65+ (1 of 1 - PCV) 07/30/1989 Zoster Vaccine (1 of 2) 07/30/1989 Well Visit 65+ 07/30/2004 DTaP/Tdap/Td Vaccine (2 - Td or Tdap) 03/31/2022 Covid-19 Vaccine (3 - season) 2023, 04/18/2020 Fall Risk Assessment 04/20/2025 04/20/2024, 01/15/20 Influenza Vaccine Completed 01/16/2024, , 12/14/2012 Medical Devices Implanted Type Area Sole Filler Device Identifier Shelf Expiration Date Model / Serial / Lot Leyva Lifesciences Konect Resilia Aortic Valved Conduit 27mm [id number] - [id number] - [id number] Implanted:Qty: 1 on 03/18/2024 by Basil Adhikari MD at [facility] Prosthetic Valve N/A: Aortic Valve Leyva Lif[employer]iences 01/06/2027 [id number] / [id number] / Teleflex [employer] Inc 18f Manta Vascular Closure Device 2114 S0 - [id number] Implanted:Qty: 1 on 03/22/2024 by Basil Adhikari MD at [facility] Vascular Closure Device Teleflex Medical Inc 01/06/20252114 / 0 / [id number] Cement Bone Cmw 2 20 Gm Fast Set Sterile - [id number] Implanted:Qty: 1 on 2017 by Brennon Davis MD at [facility] Right: Shoulder Depuy Orthopaed[employer] Inc 10/15/2019 3322-02 0 / / [id number] Component Glenoid Comprehensive Regenerex Titanium Clay Porous Shoulder Modular Hybrid Post - [id number] Implanted:Qty: 1 on 2017 by Brennon Davis MD at [facility] Right: Shoulder Kavita [employer] Inc [id number] 01/21/2027 PT-1139 50 / / [id number] Component Glenoid Comprehensive Hybrid Large H4 Mm Shoulder Base Modular - [id number] Implanted:Qty: 1 on 2017 by Brennon Davsi MD at [facility] Right: Shoulder [employer] [id number] 03/23/2022 [id number] / / [id number] Stem Humeral Comprehensive Porous Mini L83 Mm Od15 Mm Shoulder Reverse System - [id number] Implanted:Qty: 1 on 2017 by Brennon Davis MD at [facility] Right: Shoulder [employer] Inc [id number] 04/10/2027 [id number] / / [id number] Head Humeral Bio-Modular [place] 4 Mm Offset H22 Mm Od54 Mm Shoulder Sterile - [id number] Implanted:Qty: 1 on 2017 by Brennon Davis MD at [facility] Right: Shoulder [employer] Inc 08/16/2019 [id number] / / [id number] Cryolife Inc Graft Biological Cardiovascular Photofix 6x8cm Acellular Dermis Pfp 6x8 - [id number] Implanted:Qty: 1 on 03/18/2024 by Basil Adhikari MD at [facility] N/A: Aorta Cryolife Inc 10/24/2025 PFP 6X8 / / [id number] Arthrex Inc Device Closure Tigertape Sternal Cerclage Blunt Needle Ar-7289t - [id number] Implanted:Qty: 1 on 03/18/2024 by Basil Adhikari MD at [facility] N/A: Sternum Arthrex Inc 12/14/2028 AR-7289 T / / [id number] 2 Arthrex Inc Device Closure Tigertape Sternal Cerclage Blunt Needle Ar-7289t - [id number] Implanted:Qty: 1 on 03/18/2024 by Basil Adhikari MD at [facility] N/A: Sternum Arthrex Inc 12/14/2028 AR-7289 T / / [id number] 2 Estrada Vascular Plug Occluder Cvasc Embl Self Expanding Amplatzer [id number] Nitinol 9-Avp2-014 - S0 - [id number] Implanted:Qty: 1 on 03/22/2024 by Basil Adhikari MD at [facility] Left: Internal Iliac (Hypogastr ic) Artery Estrada Vascular [id number] 05/14/2025 9-AVP2- 014 / 0 / [id number] Wl [employer] Excluder 18mm 14.5-16.5mm 11.5cm Stent Abrasion Resistant [id number] - [id number] - [id number] Implanted:Qty: 1 on 03/22/2024 by Basil Adhikari MD at [facility] Left: External Iliac Artery Wl [employer] [id number] 11/17/2026 [id number] 00 / [id number] / Wl [employer] Stent Graft Thoracic Conformable Tag [id number] m [id number] - S0 - [id number] Implanted:Qty: 1 on 03/22/2024 by Basil Adhikari MD at [facility] Left: External Iliac Artery Wl [employer] [id number] 08/14/2026 [id number] 10 / 0 / Amplatzer Foreign Diplomat Lisa Amplatzer 14mm 100cm 8mm 1 Layer Wire Mesh 1 Lobe Design Optimal 9-Plug-014 - S0 - [id number] Implanted:Qty: 1 on 03/22/2024 by Basil Adhikari MD at [facility] Left: Internal Iliac (Hypogastr ic) Artery Amplatzer Foreign [employer] Lisa 03/16/2028 9-PLUG- 014 / 0 / [id number] Procedures Procedure Name Priority Date/Time Associated Diagnosis Comments EGFR Routine 04/20/2024 12:20 AM SUPERINTENDENT MEASUREMENT MAGNESIUM Routine 04/20/2024 12:20 AM SUPERINTENDENT MEASUREMENT RENAL FUNCTION PANEL Routine 04/20/2024 12:20 AM SUPERINTENDENT MEASUREMENT EGFR Routine 04/19/2024 12:41 AM SUPERINTENDENT MEASUREMENT MAGNESIUM Routine 04/19/2024 12:41 AM SUPERINTENDENT MEASUREMENT RENAL FUNCTION PANEL Routine 04/19/2024 12:41 AM SUPERINTENDENT MEASUREMENT ECG 12-LEAD Routine 04/18/2024 10:45 AM SUPERINTENDENT MEASUREMENT ECG 12-LEAD STAT 04/18/2024 7:41 AM SUPERINTENDENT MEASUREMENT ECG 12-LEAD STAT 04/18/2024 3:01 AM SUPERINTENDENT MEASUREMENT EGFR Routine 04/18/2024 12:24 AM SUPERINTENDENT MEASUREMENT MAGNESIUM Routine 04/18/2024 12:24 AM SUPERINTENDENT MEASUREMENT RENAL FUNCTION PANEL Routine 04/18/2024 12:24 AM SUPERINTENDENT MEASUREMENT PERCUTANEOUS ENDOSCOPIC GASTROSTOMY 04/16/2024 9:04 AM SUPERINTENDENT MEASUREMENT Dysphagia, unspecified type EGD 04/16/2024 7:56 AM SUPERINTENDENT MEASUREMENT EGFR Routine 04/15/2024 12:25 AM SUPERINTENDENT MEASUREMENT PROTIME-INR Routine 04/15/2024 12:25 AM SUPERINTENDENT MEASUREMENT RENAL FUNCTION PANEL Routine 04/15/2024 12:25 AM SUPERINTENDENT MEASUREMENT POCT GLUCOSE DEVICE Routine 04/13/2024 1 0:44 PM SUPERINTENDENT MEASUREMENT FL MODIFIED BARIUM SWALLOW W VIDEO IP Routine 04/13/2024 2:06 PM SUPERINTENDENT MEASUREMENT EGFR Routine 04/12/2024 1:38 AM SUPERINTENDENT MEASUREMENT DIFFERENTIAL AUTO Routine 04/12/2024 1:3 8 AM SUPERINTENDENT MEASUREMENT MAGNESIUM Routine 04/12/2024 1:38 AM SUPERINTENDENT MEASUREMENT CBC WITH AUTO DIFFERENTIAL Routine 04/12/2024 1:38 AM SUPERINTENDENT MEASUREMENT RENAL FUNCTION PANEL Routine 04/12/2024 1:38 AM SUPERINTENDENT MEASUREMENT EGFR Routine 04/10/2024 12:21 AM SUPERINTENDENT MEASUREMENT CBC WITHOUT DIFFERENTIAL Routine 04/10/2024 12:21 AM SUPERINTENDENT MEASUREMENT MAGNESIUM Routine 04/10/2024 12:21 AM SUPERINTENDENT MEASUREMENT RENAL FUNCTION PANEL Routine 04/10/2024 12:21 AM SUPERINTENDENT MEASUREMENT EGFR Routine 04/09/2024 12:26 AM SUPERINTENDENT MEASUREMENT CBC WITHOUT DIFFERENTIAL Routine 04/09/2024 12:26 AM SUPERINTENDENT MEASUREMENT MAGNESIUM Routine 04/09/2024 12:26 AM SUPERINTENDENT MEASUREMENT RENAL FUNCTION PANEL Routine 04/09/2024 12:26 AM SUPERINTENDENT MEASUREMENT US CAROTIDS DUPLEX BILATERAL IP Routine 04/08/2024 5:50 PM SUPERINTENDENT MEASUREMENT EGFR Routine 04/08/2024 12:52 AM SUPERINTENDENT MEASUREMENT DIFFERENTIAL AUTO Routine 04/08/2024 12: 52 AM SUPERINTENDENT MEASUREMENT MAGNESIUM Routine 04/08/2024 12:52 AM SUPERINTENDENT MEASUREMENT RENAL FUNCTION PANEL Routine 04/08/2024 12:52 AM SUPERINTENDENT MEASUREMENT CBC WITH AUTO DIFFERENTIAL Routine 04/08/2024 12:52 AM SUPERINTENDENT MEASUREMENT MRI BRAIN WO CONTRAST IP Routine 04/08/2024 12:24 AM SUPERINTENDENT MEASUREMENT EGFR Routine 04/07/2024 12:51 AM SUPERINTENDENT MEASUREMENT DIFFERENTIAL AUTO Routine 04/07/2024 12: 51 AM SUPERINTENDENT MEASUREMENT RENAL FUNCTION PANEL Routine 04/07/2024 12:51 AM SUPERINTENDENT MEASUREMENT CBC WITH AUTO DIFFERENTIAL Routine 04/07/2024 12:51 AM SUPERINTENDENT MEASUREMENT HEMOGLOBIN AND HEMATOCRIT Timed 04/06/2024 5:18 PM SUPERINTENDENT MEASUREMENT XR CHEST 1 VIEW IP Routine 04/06/2024 5:06 AM SUPERINTENDENT MEASUREMENT ADD ON LAB TEST Add-On 04/06/2024 3:29 AM SUPERINTENDENT MEASUREMENT RENAL FUNCTION PANEL Routine 04/06/2024 2:29 AM SUPERINTENDENT MEASUREMENT EGFR Routine 04/06/2024 2:29 AM SUPERINTENDENT MEASUREMENT DIFFERENTIAL AUTO Routine 04/06/2024 2:2 9 AM SUPERINTENDENT MEASUREMENT CBC WITH AUTO DIFFERENTIAL Routine 04/06/2024 2:29 AM SUPERINTENDENT MEASUREMENT PROCALCITONIN Routine 04/06/2024 2:29 AM SUPERINTENDENT MEASUREMENT BLOOD GAS, VENOUS Routine 04/06/2024 2:1 5 AM SUPERINTENDENT MEASUREMENT POCT GLUCOSE DEVICE Routine 04/05/2024 1 2:05 PM SUPERINTENDENT MEASUREMENT XR KUB ED Urgent/IP Urgent 04/05/2024 10:23 AM SUPERINTENDENT MEASUREMENT FL MODIFIED BARIUM SWALLOW W VIDEO IP Routine 04/05/2024 9:52 AM SUPERINTENDENT MEASUREMENT POCT GLUCOSE DEVICE Routine 04/05/2024 4 :30 AM SUPERINTENDENT MEASUREMENT MAGNESIUM Routine 04/05/2024 3:39 AM SUPERINTENDENT MEASUREMENT EGFR Routine 04/05/2024 3:39 AM SUPERINTENDENT MEASUREMENT CBC WITHOUT DIFFERENTIAL Routine 04/05/2024 3:39 AM SUPERINTENDENT MEASUREMENT RENAL FUNCTION PANEL Routine 04/05/2024 3:39 AM SUPERINTENDENT MEASUREMENT EGFR STAT 04/04/2024 4:18 PM SUPERINTENDENT MEASUREMENT RENAL FUNCTION PANEL STAT 04/04/2024 4:18 PM SUPERINTENDENT MEASUREMENT OSMOLALITY, URINE Routine 04/04/2024 6:1 1 AM SUPERINTENDENT MEASUREMENT CREATININE, URINE, RANDOM Routine 04/04/2024 6:11 AM SUPERINTENDENT MEASUREMENT SODIUM, URINE, RANDOM Routine 04/04/2024 6:11 AM SUPERINTENDENT MEASUREMENT EGFR Routine 04/04/2024 2:56 AM SUPERINTENDENT MEASUREMENT RENAL FUNCTION PANEL Routine 04/04/2024 2:56 AM SUPERINTENDENT MEASUREMENT TSH Routine 04/04/2024 2:56 AM SUPERINTENDENT MEASUREMENT CBC WITHOUT DIFFERENTIAL Routine 04/04/2024 2:56 AM SUPERINTENDENT MEASUREMENT EGFR Timed 04/03/2024 5:59 PM SUPERINTENDENT MEASUREMENT RENAL FUNCTION PANEL Timed 04/03/2024 5:59 PM SUPERINTENDENT MEASUREMENT MRSA ONLY (STAPHYLOCOCCUS AUREUS) PCR Routine 04/03/2024 3:55 PM SUPERINTENDENT MEASUREMENT AEROBIC CULTURE AND GRAM STAIN Routine 04/03/2024 3:55 PM SUPERINTENDENT MEASUREMENT ADD ON LAB TEST Add-On 04/03/2024 2:48 PM SUPERINTENDENT MEASUREMENT ADD ON LAB TEST Add-On 04/03/2024 2:48 PM SUPERINTENDENT MEASUREMENT ADD ON LAB TEST Add-On 04/03/2024 2:48 PM SUPERINTENDENT MEASUREMENT ADD ON LAB TEST Add-On 04/03/2024 2:48 PM SUPERINTENDENT MEASUREMENT TRANSTHORACIC ECHO (TTE) COMPLETE W DOPPLER/CF WO CONTRAST STAT 04/03/2024 2:46 PM SUPERINTENDENT MEASUREMENT URIC ACID STAT 04/03/2024 11:06 AM SUPERINTENDENT MEASUREMENT T4, FREE STAT 04/03/2024 11:06 AM SUPERINTENDENT MEASUREMENT THYROID FUNCTION CASCADE STAT 04/03/2024 11:06 AM SUPERINTENDENT MEASUREMENT CORTISOL STAT 04/03/2024 11:06 AM SUPERINTENDENT MEASUREMENT OSMOLALITY, URINE Routine 04/03/2024 11: 06 AM SUPERINTENDENT MEASUREMENT SODIUM, URINE, RANDOM Routine 04/03/2024 11:06 AM SUPERINTENDENT MEASUREMENT EGFR STAT 04/03/2024 11:06 AM SUPERINTENDENT MEASUREMENT URINALYSIS, MICROSCOPIC ONLY Routine 04/03/2024 11:06 AM SUPERINTENDENT MEASUREMENT BILIRUBIN, DIRECT STAT 04/03/2024 11: 06 AM SUPERINTENDENT MEASUREMENT CBC WITHOUT DIFFERENTIAL STAT 04/03/2024 11:06 AM SUPERINTENDENT MEASUREMENT PROTIME-INR STAT 04/03/2024 11:06 AM SUPERINTENDENT MEASUREMENT APTT STAT 04/03/2024 11:06 AM SUPERINTENDENT MEASUREMENT PRO B-TYPE NATRIURETIC PEPTIDE STAT 04/03/2024 11:06 AM SUPERINTENDENT MEASUREMENT LACTATE STAT 04/03/2024 11:06 AM SUPERINTENDENT MEASUREMENT PHOSPHORUS STAT 04/03/2024 11:06 AM SUPERINTENDENT MEASUREMENT MAGNESIUM STAT 04/03/2024 11:06 AM SUPERINTENDENT MEASUREMENT COMPREHENSIVE METABOLIC PANEL STAT 04/03/2024 11:06 AM SUPERINTENDENT MEASUREMENT TYPE AND SCREEN STAT 04/03/2024 11:06 AM SUPERINTENDENT MEASUREMENT STREP PNEUMONIAE AG, URINE Routine 04/03/2024 11:06 AM SUPERINTENDENT MEASUREMENT LEGIONELLA ANTIGEN, URINE Routine 04/03/2024 11:06 AM SUPERINTENDENT MEASUREMENT URINALYSIS AND REFLEX TO MICROSCOPIC AND CULTURE Routine 04/03/2024 11:06 AM SUPERINTENDENT MEASUREMENT XR CHEST 1 VIEW Critical/Life-T hreatening 04/03/2024 10:23 AM SUPERINTENDENT MEASUREMENT XR CHEST 1 VIEW IP Routine 03/27/2024 6:38 AM SUPERINTENDENT MEASUREMENT EGFR Routine 03/27/2024 12:27 AM SUPERINTENDENT MEASUREMENT MAGNESIUM Routine 03/27/2024 12:27 AM SUPERINTENDENT MEASUREMENT RENAL FUNCTION PANEL Routine 03/27/2024 12:27 AM SUPERINTENDENT MEASUREMENT CBC WITHOUT DIFFERENTIAL Routine 03/27/2024 12:27 AM SUPERINTENDENT MEASUREMENT URINALYSIS, MICROSCOPIC ONLY Routine 03/26/2024 11:53 AM SUPERINTENDENT MEASUREMENT URINALYSIS AND REFLEX TO MICROSCOPIC AND CULTURE Routine 03/26/2024 11:53 AM SUPERINTENDENT MEASUREMENT XR CHEST 1 VIEW IP Routine 03/26/2024 6:06 AM SUPERINTENDENT MEASUREMENT EGFR Routine 03/26/2024 12:27 AM SUPERINTENDENT MEASUREMENT MAGNESIUM Routine 03/26/2024 12:27 AM SUPERINTENDENT MEASUREMENT RENAL FUNCTION PANEL Routine 03/26/2024 12:27 AM SUPERINTENDENT MEASUREMENT CBC WITHOUT DIFFERENTIAL Routine 03/26/2024 12:27 AM SUPERINTENDENT MEASUREMENT XR CHEST 1 VIEW IP Routine 03/25/2024 5:49 AM SUPERINTENDENT MEASUREMENT EGFR Routine 03/25/2024 1:33 AM SUPERINTENDENT MEASUREMENT MAGNESIUM Routine 03/25/2024 1:33 AM SUPERINTENDENT MEASUREMENT RENAL FUNCTION PANEL Routine 03/25/2024 1:33 AM SUPERINTENDENT MEASUREMENT CBC WITHOUT DIFFERENTIAL Routine 03/25/2024 1:33 AM SUPERINTENDENT MEASUREMENT TYPE AND SCREEN Timed 03/25/2024 1:33 AM SUPERINTENDENT MEASUREMENT XR CHEST 1 VIEW IP Routine 03/24/2024 8:05 AM SUPERINTENDENT MEASUREMENT EGFR Routine 03/24/2024 2:16 AM SUPERINTENDENT MEASUREMENT MAGNESIUM Routine 03/24/2024 2:16 AM SUPERINTENDENT MEASUREMENT RENAL FUNCTION PANEL Routine 03/24/2024 2:16 AM SUPERINTENDENT MEASUREMENT CBC WITHOUT DIFFERENTIAL Routine 03/24/2024 2:16 AM SUPERINTENDENT MEASUREMENT XR CHEST 1 VIEW IP Routine 03/23/2024 6:41 AM SUPERINTENDENT MEASUREMENT CRITICAL CARE Routine 03/23/2024 6:36 AM SUPERINTENDENT MEASUREMENT Iliac aneurysm (CMS/HCC) (HCC) EGFR Routine 03/23/2024 1:16 AM SUPERINTENDENT MEASUREMENT CALCIUM, IONIZED Routine 03/23/2024 1:16 AM SUPERINTENDENT MEASUREMENT PROTIME-INR Routine 03/23/2024 1:16 AM SUPERINTENDENT MEASUREMENT MAGNESIUM Routine 03/23/2024 1:16 AM SUPERINTENDENT MEASUREMENT RENAL FUNCTION PANEL Routine 03/23/2024 1:16 AM SUPERINTENDENT MEASUREMENT CBC WITHOUT DIFFERENTIAL Routine 03/23/2024 1:16 AM SUPERINTENDENT MEASUREMENT CRITICAL CARE Routine 03/22/2024 8:16 PM SUPERINTENDENT MEASUREMENT 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 Routine 03/22/2024 6 :38 PM SUPERINTENDENT MEASUREMENT EGFR STAT 03/22/2024 6:30 PM SUPERINTENDENT MEASUREMENT CALCIUM, IONIZED STAT 03/22/2024 6:30 PM SUPERINTENDENT MEASUREMENT MAGNESIUM STAT 03/22/2024 6:30 PM SUPERINTENDENT MEASUREMENT RENAL FUNCTION PANEL STAT 03/22/2024 6:30 PM SUPERINTENDENT MEASUREMENT PROTIME-INR STAT 03/22/2024 6:30 PM SUPERINTENDENT MEASUREMENT APTT STAT 03/22/2024 6:30 PM SUPERINTENDENT MEASUREMENT CBC WITHOUT DIFFERENTIAL STAT 03/22/2024 6:30 PM SUPERINTENDENT MEASUREMENT CRITICAL CARE Routine 03/22/2024 5:43 PM SUPERINTENDENT MEASUREMENT Iliac aneurysm (CMS/HCC) (HCC) REVAS ENDOVASILIAC W STNT [id number] Routine 03/22/2024 4:52 PM SUPERINTENDENT MEASUREMENT Iliac aneurysm (CMS/HCC) (HCC) POCT ACTIVATED CLOTTING TIME, HIGH RANGE Routine 03/22/2024 4:51 PM SUPERINTENDENT MEASUREMENT POC BLOOD GAS AND CHEMISTRIES, VENOUS Routine 03/22/2024 4:29 PM SUPERINTENDENT MEASUREMENT POCT ACTIVATED CLOTTING TIME, HIGH RANGE Routine 03/22/2024 4:10 PM SUPERINTENDENT MEASUREMENT POCT ACTIVATED CLOTTING TIME, HIGH RANGE Routine 03/22/2024 4:00 PM SUPERINTENDENT MEASUREMENT POCT ACTIVATED CLOTTING TIME, HIGH RANGE Routine 03/22/2024 3:56 PM SUPERINTENDENT MEASUREMENT POCT ACTIVATED CLOTTING TIME, HIGH RANGE Routine 03/22/2024 3:28 PM SUPERINTENDENT MEASUREMENT POCT ACTIVATED CLOTTING TIME, LOW RANGE Routine 03/22/2024 3:21 PM SUPERINTENDENT MEASUREMENT DC AN PROCEDURE PLACEHOLDER Routine 03/22/2024 3:08 PM SUPERINTENDENT MEASUREMENT DC AN ELECTIVE ENDOTRACHEAL AIRWAY Routine 03/22/2024 3:08 PM SUPERINTENDENT MEASUREMENT PREPARE RBC STAT 03/22/2024 2:42 PM SUPERINTENDENT MEASUREMENT XR CHEST 1 VIEW IP Routine 03/22/2024 7:26 AM SUPERINTENDENT MEASUREMENT EGFR Routine 03/22/2024 1:34 AM SUPERINTENDENT MEASUREMENT MAGNESIUM Routine 03/22/2024 1:34 AM SUPERINTENDENT MEASUREMENT RENAL FUNCTION PANEL Routine 03/22/2024 1:34 AM SUPERINTENDENT MEASUREMENT CBC WITHOUT DIFFERENTIAL Routine 03/22/2024 1:34 AM SUPERINTENDENT MEASUREMENT TYPE AND SCREEN Timed 03/22/2024 1:34 AM SUPERINTENDENT MEASUREMENT APTT STAT 03/21/2024 8:12 PM SUPERINTENDENT MEASUREMENT APTT STAT 03/21/2024 12:40 PM SUPERINTENDENT MEASUREMENT APTT Timed 03/21/2024 10:35 AM SUPERINTENDENT MEASUREMENT XR CHEST 1 VIEW IP Routine 03/21/2024 7:43 AM SUPERINTENDENT MEASUREMENT APTT STAT 03/21/2024 2:27 AM SUPERINTENDENT MEASUREMENT EGFR Routine 03/21/2024 2:24 AM SUPERINTENDENT MEASUREMENT MAGNESIUM Routine 03/21/2024 2:24 AM SUPERINTENDENT MEASUREMENT RENAL FUNCTION PANEL Routine 03/21/2024 2:24 AM SUPERINTENDENT MEASUREMENT CBC WITHOUT DIFFERENTIAL Routine 03/21/2024 2:24 AM SUPERINTENDENT MEASUREMENT APTT STAT 03/20/2024 4:57 PM SUPERINTENDENT MEASUREMENT APTT STAT 03/20/2024 9:27 AM SUPERINTENDENT MEASUREMENT PROTIME-INR STAT 03/20/2024 9:27 AM SUPERINTENDENT MEASUREMENT XR CHEST 1 VIEW IP Routine 03/20/2024 9:17 AM SUPERINTENDENT MEASUREMENT EGFR Routine 03/20/2024 1:03 AM SUPERINTENDENT MEASUREMENT MAGNESIUM Routine 03/20/2024 1:03 AM SUPERINTENDENT MEASUREMENT CALCIUM, IONIZED Routine 03/20/2024 1:03 AM SUPERINTENDENT MEASUREMENT RENAL FUNCTION PANEL Routine 03/20/2024 1:03 AM SUPERINTENDENT MEASUREMENT CBC WITHOUT DIFFERENTIAL Routine 03/20/2024 1:03 AM SUPERINTENDENT MEASUREMENT PREPARE RBC STAT 03/19/2024 4:56 PM SUPERINTENDENT MEASUREMENT CTA ABDOMEN PELVIS W WO CONTRAST IP Routine 03/19/2024 9:06 AM SUPERINTENDENT MEASUREMENT POTASSIUM LEVEL STAT 03/19/2024 6:48 AM SUPERINTENDENT MEASUREMENT CRITICAL CARE Routine 03/19/2024 6:40 AM SUPERINTENDENT MEASUREMENT 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 IP Routine 03/19/2024 6:37 AM SUPERINTENDENT MEASUREMENT POCT GLUCOSE DEVICE Routine 03/19/2024 6 :01 AM SUPERINTENDENT MEASUREMENT POCT GLUCOSE DEVICE Routine 03/19/2024 2 :13 AM SUPERINTENDENT MEASUREMENT POCT GLUCOSE DEVICE Routine 03/19/2024 1 2:18 AM SUPERINTENDENT MEASUREMENT EGFR Routine 03/19/2024 12:04 AM SUPERINTENDENT MEASUREMENT MAGNESIUM Routine 03/19/2024 12:04 AM SUPERINTENDENT MEASUREMENT CALCIUM, IONIZED Routine 03/19/2024 12:0 4 AM SUPERINTENDENT MEASUREMENT RENAL FUNCTION PANEL Routine 03/19/2024 12:04 AM SUPERINTENDENT MEASUREMENT CBC WITHOUT DIFFERENTIAL Routine 03/19/2024 12:04 AM SUPERINTENDENT MEASUREMENT POCT GLUCOSE DEVICE Routine 03/18/2024 9 :02 PM SUPERINTENDENT MEASUREMENT EXTUBATION Routine 03/18/2024 7:38 PM SUPERINTENDENT MEASUREMENT BLOOD GAS, ARTERIAL STAT 03/18/2024 7 :23 PM SUPERINTENDENT MEASUREMENT POCT GLUCOSE DEVICE Routine 03/18/2024 7 :12 PM SUPERINTENDENT MEASUREMENT CRITICAL CARE Routine 03/18/2024 6:39 PM SUPERINTENDENT MEASUREMENT 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 Routine 03/18/2024 6 :07 PM SUPERINTENDENT MEASUREMENT XR CHEST 1 VIEW ED Urgent/IP Urgent 03/18/2024 4:41 PM SUPERINTENDENT MEASUREMENT POCT GLUCOSE DEVICE Routine 03/18/2024 4 :27 PM SUPERINTENDENT MEASUREMENT CRITICAL CARE Routine 03/18/2024 4:19 PM SUPERINTENDENT MEASUREMENT EGFR STAT 03/18/2024 4:17 PM SUPERINTENDENT MEASUREMENT APTT STAT 03/18/2024 4:17 PM SUPERINTENDENT MEASUREMENT PROTIME-INR STAT 03/18/2024 4:17 PM SUPERINTENDENT MEASUREMENT CBC WITHOUT DIFFERENTIAL STAT 03/18/2024 4:17 PM SUPERINTENDENT MEASUREMENT BLOOD GAS, ARTERIAL STAT 03/18/2024 4 :17 PM SUPERINTENDENT MEASUREMENT CALCIUM, IONIZED STAT 03/18/2024 4:17 PM SUPERINTENDENT MEASUREMENT MAGNESIUM STAT 03/18/2024 4:17 PM SUPERINTENDENT MEASUREMENT BASIC METABOLIC PANEL STAT 03/18/2024 4:17 PM SUPERINTENDENT MEASUREMENT PHOSPHORUS STAT 03/18/2024 4:17 PM SUPERINTENDENT MEASUREMENT PROTIME-INR STAT 03/18/2024 3:38 PM SUPERINTENDENT MEASUREMENT FIBRINOGEN STAT 03/18/2024 3:38 PM SUPERINTENDENT MEASUREMENT CBC WITHOUT DIFFERENTIAL STAT 03/18/2024 3:38 PM SUPERINTENDENT MEASUREMENT APTT STAT 03/18/2024 3:38 PM SUPERINTENDENT MEASUREMENT POC BLOOD GAS AND CHEMISTRIES, ARTERIAL Routine 03/18/2024 3:35 PM SUPERINTENDENT MEASUREMENT POCT ACTIVATED CLOTTING TIME, HIGH RANGE Routine 03/18/2024 3:35 PM SUPERINTENDENT MEASUREMENT POC BLOOD GAS AND CHEMISTRIES, ARTERIAL Routine 03/18/2024 2:41 PM SUPERINTENDENT MEASUREMENT POCT ACTIVATED CLOTTING TIME, HIGH RANGE Routine 03/18/2024 2:40 PM SUPERINTENDENT MEASUREMENT POC BLOOD GAS AND CHEMISTRIES, VENOUS Routine 03/18/2024 2:30 PM SUPERINTENDENT MEASUREMENT SURGICAL PATHOLOGY Routine 03/18/2024 2: 09 PM SUPERINTENDENT MEASUREMENT Aortic root aneurysm POC BLOOD GAS AND CHEMISTRIES, ARTERIAL Routine 03/18/2024 2:08 PM SUPERINTENDENT MEASUREMENT POCT ACTIVATED CLOTTING TIME, HIGH RANGE Routine 03/18/2024 2:08 PM SUPERINTENDENT MEASUREMENT POC BLOOD GAS AND CHEMISTRIES, ARTERIAL Routine 03/18/2024 1:50 PM SUPERINTENDENT MEASUREMENT POCT ACTIVATED CLOTTING TIME, HIGH RANGE Routine 03/18/2024 1:49 PM SUPERINTENDENT MEASUREMENT DC AN PROCEDURE PLACEHOLDER Routine 03/18/2024 1:41 PM SUPERINTENDENT MEASUREMENT PULMONARY ARTERY CATH Routine 03/18/2024 1:41 PM SUPERINTENDENT MEASUREMENT BW AN SHEATH INTRODUCER PERFORMABLE Routine 03/18/2024 1:41 PM SUPERINTENDENT MEASUREMENT DC AN PROCEDURE PLACEHOLDER Routine 03/18/2024 1:40 PM SUPERINTENDENT MEASUREMENT DC AN CENTRAL LINE QUADRUPLE LUMEN Routine 03/18/2024 1:40 PM SUPERINTENDENT MEASUREMENT DC AN PROCEDURE PLACEHOLDER Routine 03/18/2024 1:39 PM SUPERINTENDENT MEASUREMENT DC AN PROCEDURE PLACEHOLDER Routine 03/18/2024 1:38 PM SUPERINTENDENT MEASUREMENT DC AN PROCEDURE PLACEHOLDER Routine 03/18/2024 1:37 PM SUPERINTENDENT MEASUREMENT DC AN ELECTIVE ENDOTRACHEAL AIRWAY Routine 03/18/2024 1:37 PM SUPERINTENDENT MEASUREMENT DC AN PROCEDURE PLACEHOLDER Routine 03/18/2024 1:29 PM SUPERINTENDENT MEASUREMENT POCT ACTIVATED CLOTTING TIME, HIGH RANGE Routine 03/18/2024 1:11 PM SUPERINTENDENT MEASUREMENT REPLACEMENT AORTIC ROOT 03/18/2024 12:46 PM SUPERINTENDENT MEASUREMENT Aortic root aneurysm LIDIA ADD-ON FOR OR Routine 03/18/2024 12: 05 PM SUPERINTENDENT MEASUREMENT B CHECK SAMPLE STAT 03/18/2024 9:54 AM SUPERINTENDENT MEASUREMENT ECG 12-LEAD Routine 03/18/2024 9:34 AM SUPERINTENDENT MEASUREMENT PREPARE RBC STAT 03/18/2024 9:12 AM SUPERINTENDENT MEASUREMENT DIFFERENTIAL AUTO Routine 03/15/2024 12: 29 PM SUPERINTENDENT MEASUREMENT Aneurysm of ascending aorta without rupture (HCC) Pre-op evaluation HEMOGLOBIN A1C Routine 03/15/2024 12:29 PM SUPERINTENDENT MEASUREMENT Aneurysm of ascending aorta without rupture (HCC) Pre-op evaluation CBC WITH AUTO DIFFERENTIAL Routine 03/15/2024 12:29 PM SUPERINTENDENT MEASUREMENT Aneurysm of ascending aorta without rupture (HCC) Pre-op evaluation TYPE AND SCREEN Routine 03/15/2024 12:29 PM SUPERINTENDENT MEASUREMENT Aneurysm of ascending aorta without rupture (HCC) Pre-op evaluation EGFR Routine 03/15/2024 12:28 PM SUPERINTENDENT MEASUREMENT Aneurysm of ascending aorta without rupture (HCC) Pre-op evaluation COMPREHENSIVE METABOLIC PANEL Routine 03/15/2024 12:28 PM SUPERINTENDENT MEASUREMENT Aneurysm of ascending aorta without rupture (HCC) Pre-op evaluation from Last 3 Months Results * eGFR (04/20/2024 12:20 AM SUPERINTENDENT MEASUREMENT) eGFR 71 >=60 mL/min/1. 73 m2 Comment: [...] reviewed 2021. Blood 04/20/2024 12:2 0 AM SUPERINTENDENT MEASUREMENT 04/20/2024 12:48 AM SUPERINTENDENT MEASUREMENT us Louann Conti MD LAB BLOOD ORDERABLES F inal Result [facility] [address] Department of Laboratories [place], [place] [id number] * Magnesium (04/20/2024 12:20 AM SUPERINTENDENT MEASUREMENT) Magnesium 2.2 1.4 - 2.5 mg/dL Blood 04/20/2024 12:2 0 AM SUPERINTENDENT MEASUREMENT 04/20/2024 12:48 AM SUPERINTENDENT MEASUREMENT Louann Conti MD LAB BLOOD ORDERABLES F inal Result Performing Organization Address City/[facility]/ZIP Co de Phone Number [facility] [address] Department [place] [employer] [place] [address] * (ABNORMAL) Renal function panel (04/20/2024 12:20 AM SUPERINTENDENT MEASUREMENT) [facility] Sodium 138 135 - 145 mmol/L Potassium, pl 4.3 3.3 - 4.9 mmol/L [facility] Chloride 102 97 - 110 mmol/L [facility] CO2 26 22 - 32 mmol/L [facility] Anion gap 10 2 - 15 mmol/L [facility] BUN 26(H) 6 - 25 mg/dL [facility] Creatinine 1.04 0.80 - 1.30 mg/dL [facility] Glucose 119 70 - 199 mg/dL [facility] Comment: Interpretive Data Fasting glucose [...] 2022. Calcium 8.5 8.5 - 10.3 mg/dL [facility] Phosphorus, pl 2.9 2.3 - 4.5 mg/dL [facility] Albumin 3.5 3.5 - 5.0 g/dL [facility] Blood 04/20/2024 12:2 0 AM SUPERINTENDENT MEASUREMENT 04/20/2024 12:48 AM SUPERINTENDENT MEASUREMENT us Louann Conti MD LAB BLOOD ORDERABLES F inal Result [facility] [address] Department [place] [address] * eGFR (04/19/2024 12:41 AM SUPERINTENDENT MEASUREMENT) eGFR 72 >=60 mL/min/1. 73 m2 Comment: [...] reviewed 2021. Blood 04/19/2024 12:4 1 AM SUPERINTENDENT MEASUREMENT 04/19/2024 12:56 AM SUPERINTENDENT MEASUREMENT us Louann Conti MD LAB BLOOD ORDERABLES F inal Result [facility] [address] [place], [place] [id number] * Magnesium (04/19/2024 12:41 AM SUPERINTENDENT MEASUREMENT) Pathologist [facility] Magnesium 2.3 1.4 - 2.5 mg/dL Blood 04/19/2024 12:4 1 AM SUPERINTENDENT MEASUREMENT 04/19/2024 12:56 AM SUPERINTENDENT MEASUREMENT Louann Conti MD LAB BLOOD ORDERABLES F inal Result [facility] [address] Department [place] [employer] [address] * (ABNORMAL) Renal function panel (04/19/2024 12:41 AM SUPERINTENDENT MEASUREMENT) Pathologist [facility] Sodium 138 135 - 145 mmol/L Potassium, pl 4.6 3.3 - 4.9 mmol/L [facility] Chloride 103 97 - 110 mmol/L [facility] CO2 26 22 - 32 mmol/L [facility] Anion gap 9 2 - 15 mmol/L [facility] BUN 31(H) 6 - 25 mg/dL [facility] Creatinine 1.02 0.80 - 1.30 mg/dL [facility] Glucose 97 70 - 199 mg/dL [facility] Comment: Interpretive Data Fasting glucose [...] 2022. Calcium 8.6 8.5 - 10.3 mg/dL [facility] Phosphorus, pl 3.0 2.3 - 4.5 mg/dL [facility] Albumin 3.5 3.5 - 5.0 g/dL [facility] Blood 04/19/2024 12:4 1 AM SUPERINTENDENT MEASUREMENT 04/19/2024 12:56 AM SUPERINTENDENT MEASUREMENT us Louann Conti MD LAB BLOOD ORDERABLES F inal Result [facility] [address] Department [place] [address] * ECG 12 lead (04/18/2024 10:45 AM SUPERINTENDENT MEASUREMENT) 04/18/2024 10:4 5 AM SUPERINTENDENT MEASUREMENT Narrative [facility] - 04/18/2024 1:35 PM SUPERINTENDENT MEASUREMENT Vent Rate: 66 bpm RR Interval: 897 msec DC Interval: 0 msec QRS Duration: 91 msec QT Interval: 251 msec QTC Interval: 265 msec P-R-T [place]: 0 - 12 - 0 degrees IMPRESSION: ATRIAL FIBRILLATION NONSPECIFIC ST \T\ T-WAVE ABNORMALITY ABNORMAL RHYTHM ECG Electronically Signed By: Klaus Humphrey MD PhD Klaus Humphrey MD PhD ECG ORDERABLES Final Result Performing Organization Address [facility] Phone Number [facility] * ECG 12 lead (04/18/2024 7:41 AM SUPERINTENDENT MEASUREMENT) 04/18/2024 7:41 AM SUPERINTENDENT MEASUREMENT Narrative [facility] - 04/18/2024 7:53 AM SUPERINTENDENT MEASUREMENT Vent Rate: 65 bpm RR Interval: 921 msec DC Interval: 0 msec QRS Duration: 101 msec QT Interval: 442 msec QTC Interval: 453 msec P-R-T [place]: 0 - 2 - 10 degrees IMPRESSION: ATRIAL FIBRILLATION NONSPECIFIC T-WAVE ABNORMALITY ABNORMAL RHYTHM ECG Electronically Signed By: Klaus Humphrey MD PhD Louann Conti MD ECG ORDERABLES Final Result Performing Organization Address [facility] Phone Number [facility] * ECG 12 lead (04/18/2024 3:01 AM SUPERINTENDENT MEASUREMENT) 04/18/2024 3:01 AM SUPERINTENDENT MEASUREMENT Narrative [facility] - 04/18/2024 7:57 AM SUPERINTENDENT MEASUREMENT Vent Rate: 64 bpm RR Interval: 930 msec DC Interval: 0 msec QRS Duration: 94 msec QT Interval: 441 msec QTC Interval: 451 msec P-R-T [place]: 0 - -4 - -36 degrees IMPRESSION: ATRIAL FIBRILLATION INFERIOR MYOCARDIAL INFARCTION , PROBABLY OLD WITH POSTERIOR EXTENSION ABNORMAL ECG Electronically Signed By: Klaus Humphrey MD PhD Cristino Houser Jr., PA ECG ORDERABLES Final Result Performing Organization Address [facility] Phone Number [facility] * eGFR (04/18/2024 12:24 AM SUPERINTENDENT MEASUREMENT) eGFR 69 >=60 mL/min/1. 73 m2 Comment: [...] reviewed 2021. Blood 04/18/2024 12:2 4 AM SUPERINTENDENT MEASUREMENT 04/18/2024 12:44 AM SUPERINTENDENT MEASUREMENT Louann Conti MD LAB BLOOD ORDERABLES F inal Result Performing Organization Address City/[facility]/ZIP Co de Phone Number [facility] [address] [place] [address] * Magnesium (04/18/2024 12:24 AM SUPERINTENDENT MEASUREMENT) [facility] Magnesium 2.4 1.4 - 2.5 mg/dL Blood 04/18/2024 12:2 4 AM SUPERINTENDENT MEASUREMENT 04/18/2024 12:44 AM SUPERINTENDENT MEASUREMENT Louann Conti MD LAB BLOOD ORDERABLES F inal Result Performing Organization Address City/[facility] Co de Phone Number [facility] [address] [facility] [place] [address] * (ABNORMAL) Renal function panel (04/18/2024 12:24 AM SUPERINTENDENT MEASUREMENT) Sodium 137 135 - 145 mmol/L Potassium, pl 4.3 3.3 - 4.9 mmol/L [facility] Chloride 101 97 - 110 mmol/L [facility] CO2 25 22 - 32 mmol/L [facility] Anion gap 11 2 - 15 mmol/L [facility] BUN 37(H) 6 - 25 mg/dL [facility] Creatinine 1.06 0.80 - 1.30 mg/dL [facility] Glucose 102 70 - 199 mg/dL [facility] Comment: Interpretive Data Fasting glucose [...] 2022. Calcium 8.9 8.5 - 10.3 mg/dL [facility] Phosphorus, pl 2.9 2.3 - 4.5 mg/dL [facility] Albumin 3.8 3.5 - 5.0 g/dL [facility] Blood 04/18/2024 12:2 4 AM SUPERINTENDENT MEASUREMENT 04/18/2024 12:44 AM SUPERINTENDENT MEASUREMENT Louann Conti MD LAB BLOOD ORDERABLES F inal Result [facility] [address] Department [place] [address] * EGD (04/16/2024 7:56 AM SUPERINTENDENT MEASUREMENT) Anatomical Region Laterality Modality Other Narrative Procedure Note Roderick Bedolla MD - 04/16/2024 7:56 AM CST ENDOSCOPY LAB Patient Name: Gina Lee Procedure Date: 04/16/2024 7:56 AM Admit Type: Inpatient Room: [facility] Date of : 1940 Instrument Name: [id number] Gender: Male Note Status: Finalized Procedure: Upper [...] Final Result * eGFR (04/15/2024 12:25 AM SUPERINTENDENT MEASUREMENT) eGFR 61 >=60 mL/min/1. 73 m2 Comment: [...] reviewed 2021. Blood 04/15/2024 12:2 5 AM SUPERINTENDENT MEASUREMENT 04/15/2024 12:48 AM SUPERINTENDENT MEASUREMENT us Louann Conti MD LAB BLOOD ORDERABLES F inal Result Performing Organization Address [facility] Co de Phone Number [facility] [address] [place] [address] * (ABNORMAL) Protime-INR (04/15/2024 12:25 AM SUPERINTENDENT MEASUREMENT) PT 16.8(H) 9.7 - 13.0 sec INR 1.54(H) 0.90 - 1.20 [facility] Comment: Interpretive data Oral anticoagulant therapeutic ranges: Venous thromboembolism prophylaxis or treatment: 2.0-3.0 CARDIOLOGY Standard range: 2.0-3.0 High-intensity range: 2.5-3.5 Refer to indication-specific guidelines for appropriate target ranges for prosthetic heart valve replacement. Current interpretive data was last revised on 2019. Blood 04/15/2024 12:2 5 AM SUPERINTENDENT MEASUREMENT 04/15/2024 12:48 AM SUPERINTENDENT MEASUREMENT us Jaycee SOLIS LAB BLOOD ORDERABLES Final Re sult Performing Organization Address [facility]/ZIP Co de Phone Number [facility] [address] [place] [address] * (ABNORMAL) Renal function panel (04/15/2024 12:25 AM SUPERINTENDENT MEASUREMENT) Pathologist [facility] Sodium 140 135 - 145 mmol/L Potassium, pl 4.5 3.3 - 4.9 mmol/L [facility] Chloride 103 97 - 110 mmol/L [facility] CO2 27 22 - 32 mmol/L [facility] Anion gap 10 2 - 15 mmol/L [facility] BUN 27(H) 6 - 25 mg/dL [facility] Creatinine 1.17 0.80 - 1.30 mg/dL [facility] Glucose 103 70 - 199 mg/dL [facility] Comment: Interpretive Data Fasting glucose [...] 2022. Calcium 9.5 8.5 - 10.3 mg/dL [facility] Phosphorus, pl 4.2 2.3 - 4.5 mg/dL [facility] Albumin 3.7 3.5 - 5.0 g/dL [facility] Blood 04/15/2024 12:2 5 AM SUPERINTENDENT MEASUREMENT 04/15/2024 12:48 AM SUPERINTENDENT MEASUREMENT us Louann Conti MD LAB BLOOD ORDERABLES F inal Result [facility] [address] Department [place] [address] * POCT glucose (04/13/2024 10:44 PM SUPERINTENDENT MEASUREMENT) [facility] Glucose, POC 102 70 - 199 mg/dL Comment: For Glucose values <35 mg/dl when Hematocrit is >60 mg/dl,the test may not accurately detect significant hypoglycemia,and testing in the Laboratory should be considered if clinically indicated. Blood 04/13/2024 10:4 4 PM SUPERINTENDENT MEASUREMENT 04/13/2024 10:44 PM SUPERINTENDENT MEASUREMENT Louann Conti MD LAB POCT ORDERABLES - DEVICE Final Result [facility] [address] Department [place] [address] * FL Modified Barium Swallow W Video (04/13/2024 2:06 PM SUPERINTENDENT MEASUREMENT) Anatomical Region Laterality Modality Head and Neck N/A Radio Fluoroscop y 04/13/2024 3:44 PM SUPERINTENDENT MEASUREMENT Impressions 04/13/2024 4:07 PM SUPERINTENDENT MEASUREMENT 1. There is silent transglottic aspiration with [...] Mo Stahl M.D. Narrative 04/13/2024 4:07 PM SUPERINTENDENT MEASUREMENT EXAMINATION: MODIFIED BARIUM SWALLOW 04/05/2024 HISTORY: Dysphagia. [...] Final Result * eGFR (04/12/2024 1:38 AM SUPERINTENDENT MEASUREMENT) Pathologist [facility] eGFR 68 >=60 mL/min/1. 73 m2 Comment: [...] last reviewed 2021. Blood 04/12/2024 1:38 AM SUPERINTENDENT MEASUREMENT 04/12/2024 1:58 AM SUPERINTENDENT MEASUREMENT Tara Ram MD LAB BLOOD ORDERABLES Final Result [facility] [address] Department [place] [address] * Differential, auto (04/12/2024 1:38 AM SUPERINTENDENT MEASUREMENT) Pathologist [facility] Neutrophil abs 4.4 1.5 - 6.5 K/cumm Imm gran abs 0.1 0.0 - 0.1 K/cumm [facility] Lymphocyte abs 0.9 0.8 - 3.3 K/cumm [facility] Monocyte abs 0.6 0.2 - 0.8 K/cumm [facility] Eosinophil abs 0.5 0.0 - 0.5 K/cumm [facility] Basophil abs 0.1 0.0 - 0.1 K/cumm [facility] Neutrophil pct 66.9 % [facility] Comment: Interpretive Data Percent cell count reference ranges are not reported, since discordance with absolute values may lead to misinterpretation of CBC data. Current Interpretive Data was last revised on 2017. Imm gran pct 0.9 % [facility] Comment: Interpretive Data Percent cell count reference ranges are not reported, since discordance with absolute values may lead to misinterpretation of CBC data. Current Interpretive Data was last revised on 2017. Lymphocyte pct 13.7 % [facility] Comment: Interpretive Data Percent cell count reference ranges are not reported, since discordance with absolute values may lead to misinterpretation of CBC data. Current Interpretive Data was last revised on 2017. Monocyte pct 9.6 % [facility] Comment: Interpretive Data Percent cell count reference ranges are not reported, since discordance with absolute values may lead to misinterpretation of CBC data. Current Interpretive Data was last revised on 2017. Eosinophil pct 7.4 % [facility] Comment: Interpretive Data Percent cell count reference ranges are not reported, since discordance with absolute values may lead to misinterpretation of CBC data. Current Interpretive Data was last revised on 2017. Basophil pct 1.5 % [facility] Comment: Interpretive Data Percent cell count reference ranges are not reported, since discordance with absolute values may lead to misinterpretation of CBC data. Current Interpretive Data was last revised on 2017. Blood 04/12/2024 1:38 AM SUPERINTENDENT MEASUREMENT 04/12/2024 1:58 AM SUPERINTENDENT MEASUREMENT us Tara Ram MD LAB BLOOD ORDERABLES Final Result [facility] [address] Department [place] [address] * (ABNORMAL) CBC with auto differential (04/12/2024 1:38 AM SUPERINTENDENT MEASUREMENT) WBC 6.6 3.8 - 9.9 K/cumm Hgb 10.2(L) 13.0 - 17.5 g/dL [facility] Hct 31.6(L) 38.9 - 50.3 % [facility] Plt 270 150 - 400 K/cumm [facility] MPV 9.1 9.1 - 12.3 fL [facility] RBC 3.56(L) 4.30 - 5.80 M/cumm [facility] MCV 88.8 81.3 - 96.4 fL [facility] MCH 28.7 27.1 - 33.3 pg [facility] MCHC 32.3 32.3 - 35.7 g/dL [facility] RDW CV 12.8 11.1 - 14.9 % [facility] RDW SD 41.6 35.7 - 48.1 fL [facility] NRBC abs 0.00 0.00 - 0.01 K/cumm [facility] Blood 04/12/2024 1:38 AM SUPERINTENDENT MEASUREMENT 04/12/2024 1:58 AM SUPERINTENDENT MEASUREMENT Tara Ram MD LAB BLOOD ORDERABLES Final Result Performing Organization Address [facility] Co de Phone Number [facility] [address] Department [place] [employer] [address] * Magnesium (04/12/2024 1:38 AM SUPERINTENDENT MEASUREMENT) [facility] Magnesium 2.3 1.4 - 2.5 mg/dL Blood 04/12/2024 1:38 AM SUPERINTENDENT MEASUREMENT 04/12/2024 1:58 AM SUPERINTENDENT MEASUREMENT Tara Ram MD LAB BLOOD ORDERABLES Final Result Performing Organization Address [facility] Co de Phone Number [facility] [address] Department [place] [employer] [address] * Renal function panel (04/12/2024 1:38 AM SUPERINTENDENT MEASUREMENT) Pathologist [facility] Sodium 137 135 - 145 mmol/L Potassium, pl 4.4 3.3 - 4.9 mmol/L [facility] Chloride 102 97 - 110 mmol/L [facility] CO2 24 22 - 32 mmol/L [facility] Anion gap 11 2 - 15 mmol/L [facility] BUN 25 6 - 25 mg/dL [facility] Creatinine 1.07 0.80 - 1.30 mg/dL [facility] Glucose 115 70 - 199 mg/dL [facility] Comment: Interpretive Data Fasting glucose [...] 2022. Calcium 9.6 8.5 - 10.3 mg/dL [facility] Phosphorus, pl 4.1 2.3 - 4.5 mg/dL [facility] Albumin 3.6 3.5 - 5.0 g/dL [facility] Blood 04/12/2024 1:38 AM SUPERINTENDENT MEASUREMENT 04/12/2024 1:58 AM SUPERINTENDENT MEASUREMENT Tara Ram MD LAB BLOOD ORDERABLES Final Result [facility] [address] Department [place] [address] * eGFR (04/10/2024 12:21 AM SUPERINTENDENT MEASUREMENT) eGFR 65 >=60 mL/min/1. 73 m2 Comment: [...] reviewed 2021. Blood 04/10/2024 12:2 1 AM SUPERINTENDENT MEASUREMENT 04/10/2024 12:46 AM SUPERINTENDENT MEASUREMENT Tara Ram MD LAB BLOOD ORDERABLES Final Result [facility] [address] Department [place] [address] * (ABNORMAL) CBC without differential (04/10/2024 12:21 AM SUPERINTENDENT MEASUREMENT) WBC 5.1 3.8 - 9.9 K/cumm Hgb 10.2(L) 13.0 - 17.5 g/dL [facility] Hct 31.7(L) 38.9 - 50.3 % [facility] Plt 274 150 - 400 K/cumm [facility] MPV 8.6(L) 9.1 - 12.3 fL [facility] RBC 3.55(L) 4.30 - 5.80 M/cumm [facility] MCV 89.3 81.3 - 96.4 fL [facility] MCH 28.7 27.1 - 33.3 pg [facility] MCHC 32.2(L) 32.3 - 35.7 g/dL [facility] RDW CV 12.7 11.1 - 14.9 % [facility] RDW SD 41.6 35.7 - 48.1 fL [facility] NRBC abs 0.00 0.00 - 0.01 K/cumm [facility] Blood 04/10/2024 12:2 1 AM SUPERINTENDENT MEASUREMENT 04/10/2024 12:46 AM SUPERINTENDENT MEASUREMENT us Tara Ram MD LAB BLOOD ORDERABLES Final Result [facility] [address] Department [place] [address] * Magnesium (04/10/2024 12:21 AM SUPERINTENDENT MEASUREMENT) [facility] Magnesium 2.4 1.4 - 2.5 mg/dL Blood 04/10/2024 12:2 1 AM SUPERINTENDENT MEASUREMENT 04/10/2024 12:46 AM SUPERINTENDENT MEASUREMENT Tara Ram MD LAB BLOOD ORDERABLES Final Result [facility] [address] [place] [address] * Renal function panel (04/10/2024 12:21 AM SUPERINTENDENT MEASUREMENT) [facility] Sodium 138 135 - 145 mmol/L Potassium, pl 4.6 3.3 - 4.9 mmol/L [facility] Chloride 101 97 - 110 mmol/L [facility] CO2 28 22 - 32 mmol/L [facility] Anion gap 9 2 - 15 mmol/L [facility] BUN 23 6 - 25 mg/dL [facility] Creatinine 1.12 0.80 - 1.30 mg/dL [facility] Glucose 85 70 - 199 mg/dL [facility] Comment: Interpretive Data Fasting glucose [...] 2022. Calcium 9.6 8.5 - 10.3 mg/dL [facility] Phosphorus, pl 4.1 2.3 - 4.5 mg/dL [facility] Albumin 3.7 3.5 - 5.0 g/dL [facility] Blood 04/10/2024 12:2 1 AM SUPERINTENDENT MEASUREMENT 04/10/2024 12:46 AM SUPERINTENDENT MEASUREMENT Tara Ram MD LAB BLOOD ORDERABLES Final Result Performing Organization Address [facility] Co de Phone Number [facility] [address] Department of [employer] [place], [place] [id number] * eGFR (04/09/2024 12:26 AM SUPERINTENDENT MEASUREMENT) eGFR 74 >=60 mL/min/1. 73 m2 Comment: [...] reviewed 2021. Blood 04/09/2024 12:2 6 AM SUPERINTENDENT MEASUREMENT 04/09/2024 1:19 AM SUPERINTENDENT MEASUREMENT Tara Ram MD LAB BLOOD ORDERABLES Final Result Performing Organization Address [facility]/ZIP Co de Phone Number [facility] [address] [place] [address] * (ABNORMAL) CBC without differential (04/09/2024 12:26 AM SUPERINTENDENT MEASUREMENT) Pathologist [facility] WBC 5.8 3.8 - 9.9 K/cumm Hgb 9.9(L) 13.0 - 17.5 g/dL [facility] Hct 31.6(L) 38.9 - 50.3 % [facility] Plt 289 150 - 400 K/cumm [facility] MPV 9.4 9.1 - 12.3 fL [facility] RBC 3.44(L) 4.30 - 5.80 M/cumm [facility] MCV 91.9 81.3 - 96.4 fL [facility] MCH 28.8 27.1 - 33.3 pg [facility] MCHC 31.3(L) 32.3 - 35.7 g/dL [facility] RDW CV 12.7 11.1 - 14.9 % [facility] RDW SD 42.0 35.7 - 48.1 fL [facility] NRBC abs 0.00 0.00 - 0.01 K/cumm [facility] Blood 04/09/2024 12:2 6 AM SUPERINTENDENT MEASUREMENT 04/09/2024 1:20 AM SUPERINTENDENT MEASUREMENT Tara Ram MD LAB BLOOD ORDERABLES Final Result Performing Organization Address [facility]/ZIP Co de Phone Number [facility] [address] [facility] [place] [address] * Magnesium (04/09/2024 12:26 AM SUPERINTENDENT MEASUREMENT) [facility] Magnesium 2.3 1.4 - 2.5 mg/dL Blood 04/09/2024 12:2 6 AM SUPERINTENDENT MEASUREMENT 04/09/2024 1:19 AM SUPERINTENDENT MEASUREMENT Tara Ram MD LAB BLOOD ORDERABLES Final Result [facility] [address] Department [place] [address] * (ABNORMAL) Renal function panel (04/09/2024 12:26 AM SUPERINTENDENT MEASUREMENT) Pathologist [facility] Sodium 138 135 - 145 mmol/L Potassium, pl 4.6 3.3 - 4.9 mmol/L [facility] Chloride 103 97 - 110 mmol/L [facility] CO2 25 22 - 32 mmol/L [facility] Anion gap 10 2 - 15 mmol/L [facility] BUN 24 6 - 25 mg/dL [facility] Creatinine 1.00 0.80 - 1.30 mg/dL [facility] Glucose 90 70 - 199 mg/dL [facility] Comment: Interpretive Data Fasting glucose [...] 2022. Calcium 9.3 8.5 - 10.3 mg/dL [facility] Phosphorus, pl 3.7 2.3 - 4.5 mg/dL [facility] Albumin 3.3(L) 3.5 - 5.0 g/dL [facility] Blood 04/09/2024 12:2 6 AM SUPERINTENDENT MEASUREMENT 04/09/2024 1:19 AM SUPERINTENDENT MEASUREMENT Tara Ram MD LAB BLOOD ORDERABLES Final Result [facility] [address] Department [place] [address] * US Carotids Duplex Bilateral (04/08/2024 5:50 PM SUPERINTENDENT MEASUREMENT) Anatomical Region Laterality Modality Vascular Bilateral Ultrasound 04/09/2024 4:26 PM SUPERINTENDENT MEASUREMENT Impressions 04/09/2024 4:26 PM SUPERINTENDENT MEASUREMENT 1) Diffuse atherosclerotic change throughout the bilateral [...] Onur Martinez MD Narrative 04/09/2024 4:26 PM SUPERINTENDENT MEASUREMENT DATE:04/08/2024 9:30 AM EXAM: Duplex imaging of [...] Re sult * eGFR (04/08/2024 12:52 AM SUPERINTENDENT MEASUREMENT) eGFR 68 >=60 mL/min/1. 73 m2 Comment: [...] reviewed 2021. Blood 04/08/2024 12:5 2 AM SUPERINTENDENT MEASUREMENT 04/08/2024 1:05 AM SUPERINTENDENT MEASUREMENT us Tara Ram MD LAB BLOOD ORDERABLES Final Result [facility] [address] Department [place] [address] * Differential, auto (04/08/2024 12:52 AM SUPERINTENDENT MEASUREMENT) Neutrophil abs 4.4 1.5 - 6.5 K/cumm Imm gran abs 0.0 0.0 - 0.1 K/cumm [facility] Lymphocyte abs 0.9 0.8 - 3.3 K/cumm [facility] Monocyte abs 0.7 0.2 - 0.8 K/cumm [facility] Eosinophil abs 0.3 0.0 - 0.5 K/cumm [facility] Basophil abs 0.1 0.0 - 0.1 K/cumm [facility] Neutrophil pct 68.1 % [facility] Comment: Interpretive Data Percent cell count reference ranges are not reported, since discordance with absolute values may lead to misinterpretation of CBC data. Current Interpretive Data was last revised on 2017. Imm gran pct 0.6 % [facility] Comment: Interpretive Data Percent cell count reference ranges are not reported, since discordance with absolute values may lead to misinterpretation of CBC data. Current Interpretive Data was last revised on 2017. Lymphocyte pct 14.0 % [facility] Comment: Interpretive Data Percent cell count reference ranges are not reported, since discordance with absolute values may lead to misinterpretation of CBC data. Current Interpretive Data was last revised on 2017. Monocyte pct 10.6 % [facility] Comment: Interpretive Data Percent cell count reference ranges are not reported, since discordance with absolute values may lead to misinterpretation of CBC data. Current Interpretive Data was last revised on 2017. Eosinophil pct 5.3 % [facility] Comment: Interpretive Data Percent cell count reference ranges are not reported, since discordance with absolute values may lead to misinterpretation of CBC data. Current Interpretive Data was last revised on 2017. Basophil pct 1.4 % [facility] Comment: Interpretive Data Percent cell count reference ranges are not reported, since discordance with absolute values may lead to misinterpretation of CBC data. Current Interpretive Data was last revised on 2017. Blood 04/08/2024 12:5 2 AM SUPERINTENDENT MEASUREMENT 04/08/2024 1:05 AM SUPERINTENDENT MEASUREMENT Tara Ram MD LAB BLOOD ORDERABLES Final Result Performing Organization Address [facility]/ZIP Co de Phone Number [facility] [address] [place] [address] * (ABNORMAL) CBC with auto differential (04/08/2024 12:52 AM SUPERINTENDENT MEASUREMENT) WBC 6.4 3.8 - 9.9 K/cumm Hgb 10.5(L) 13.0 - 17.5 g/dL [facility] Hct 33.7(L) 38.9 - 50.3 % [facility] Plt 288 150 - 400 K/cumm [facility] MPV 9.1 9.1 - 12.3 fL [facility] RBC 3.74(L) 4.30 - 5.80 M/cumm [facility] MCV 90.1 81.3 - 96.4 fL [facility] MCH 28.1 27.1 - 33.3 pg [facility] MCHC 31.2(L) 32.3 - 35.7 g/dL [facility] RDW CV 12.5 11.1 - 14.9 % [facility] RDW SD 41.2 35.7 - 48.1 fL [facility] NRBC abs 0.00 0.00 - 0.01 K/cumm [facility] Blood 04/08/2024 12:5 2 AM SUPERINTENDENT MEASUREMENT 04/08/2024 1:05 AM SUPERINTENDENT MEASUREMENT Tara Ram MD LAB BLOOD ORDERABLES Final Result Performing Organization Address [facility]/ZIP Co de Phone Number [facility] [address] Department [place] [address] * Magnesium (04/08/2024 12:52 AM SUPERINTENDENT MEASUREMENT) Magnesium 2.3 1.4 - 2.5 mg/dL Blood 04/08/2024 12:5 2 AM SUPERINTENDENT MEASUREMENT 04/08/2024 1:05 AM SUPERINTENDENT MEASUREMENT Tara Ram MD LAB BLOOD ORDERABLES Final Result [facility] [address] Department [place] [address] * (ABNORMAL) Renal function panel (04/08/2024 12:52 AM SUPERINTENDENT MEASUREMENT) Pathologist [facility] Sodium 138 135 - 145 mmol/L Potassium, pl 5.0(H) 3.3 - 4.9 mmol/L [facility] Chloride 102 97 - 110 mmol/L [facility] CO2 25 22 - 32 mmol/L [facility] Anion gap 11 2 - 15 mmol/L [facility] BUN 25 6 - 25 mg/dL [facility] Creatinine 1.07 0.80 - 1.30 mg/dL [facility] Glucose 89 70 - 199 mg/dL [facility] Comment: Interpretive Data Fasting glucose [...] 2022. Calcium 9.3 8.5 - 10.3 mg/dL [facility] Phosphorus, pl 3.4 2.3 - 4.5 mg/dL [facility] Albumin 3.4(L) 3.5 - 5.0 g/dL [facility] Blood 04/08/2024 12:5 2 AM SUPERINTENDENT MEASUREMENT 04/08/2024 1:05 AM SUPERINTENDENT MEASUREMENT us Tara Ram MD LAB BLOOD ORDERABLES Final Result [facility] [address] Department [place] [address] * MRI Brain WO Contrast (04/08/2024 12:24 AM SUPERINTENDENT MEASUREMENT) Anatomical Region Laterality Modality Head and Neck N/A Magnetic Resonan ce 04/08/2024 8:48 AM SUPERINTENDENT MEASUREMENT Impressions 04/08/2024 10:01 AM SUPERINTENDENT MEASUREMENT 1. Approximately 5 punctate foci of diffusion [...] Malloy MD, PHD Narrative 04/08/2024 10:01 AM SUPERINTENDENT MEASUREMENT EXAMINATION: Magnetic resonance imaging (MRI) of the [...] R esult * eGFR (04/07/2024 12:51 AM SUPERINTENDENT MEASUREMENT) eGFR 72 >=60 mL/min/1. 73 m2 Comment: [...] reviewed 2021. Blood 04/07/2024 12:5 1 AM SUPERINTENDENT MEASUREMENT 04/07/2024 1:14 AM SUPERINTENDENT MEASUREMENT us Marissa Vitale DO LAB BLOOD ORDERABLES F inal Result [facility] [address] Department [place] [address] * (ABNORMAL) Differential, auto (04/07/2024 12:51 AM SUPERINTENDENT MEASUREMENT) Neutrophil abs 4.7 1.5 - 6.5 K/cumm Imm gran abs 0.0 0.0 - 0.1 K/cumm [facility] Lymphocyte abs 0.7(L) 0.8 - 3.3 K/cumm [facility] Monocyte abs 0.6 0.2 - 0.8 K/cumm [facility] Eosinophil abs 0.3 0.0 - 0.5 K/cumm [facility] Basophil abs 0.1 0.0 - 0.1 K/cumm [facility] Neutrophil pct 73.0 % [facility] Comment: Interpretive Data Percent cell count reference ranges are not reported, since discordance with absolute values may lead to misinterpretation of CBC data. Current Interpretive Data was last revised on 2017. Imm gran pct 0.3 % [facility] Comment: Interpretive Data Percent cell count reference ranges are not reported, since discordance with absolute values may lead to misinterpretation of CBC data. Current Interpretive Data was last revised on 2017. Lymphocyte pct 11.5 % [facility] Comment: Interpretive Data Percent cell count reference ranges are not reported, since discordance with absolute values may lead to misinterpretation of CBC data. Current Interpretive Data was last revised on 2017. Monocyte pct 9.5 % [facility] Comment: Interpretive Data Percent cell count reference ranges are not reported, since discordance with absolute values may lead to misinterpretation of CBC data. Current Interpretive Data was last revised on 2017. Eosinophil pct 4.5 % [facility] Comment: Interpretive Data Percent cell count reference ranges are not reported, since discordance with absolute values may lead to misinterpretation of CBC data. Current Interpretive Data was last revised on 2017. Basophil pct 1.2 % [facility] Comment: Interpretive Data Percent cell count reference ranges are not reported, since discordance with absolute values may lead to misinterpretation of CBC data. Current Interpretive Data was last revised on 2017. Blood 04/07/2024 12:5 1 AM SUPERINTENDENT MEASUREMENT 04/07/2024 1:14 AM SUPERINTENDENT MEASUREMENT us Marissa Vitale DO LAB BLOOD ORDERABLES F inal Result [facility] [address] Department [place] [address] * (ABNORMAL) CBC with auto differential (04/07/2024 12:51 AM SUPERINTENDENT MEASUREMENT) [facility] WBC 6.4 3.8 - 9.9 K/cumm Hgb 9.6(L) 13.0 - 17.5 g/dL [facility] Hct 29.6(L) 38.9 - 50.3 % [facility] Plt 270 150 - 400 K/cumm [facility] MPV 9.0(L) 9.1 - 12.3 fL [facility] RBC 3.35(L) 4.30 - 5.80 M/cumm [facility] MCV 88.4 81.3 - 96.4 fL [facility] MCH 28.7 27.1 - 33.3 pg [facility] MCHC 32.4 32.3 - 35.7 g/dL [facility] RDW CV 12.5 11.1 - 14.9 % [facility] RDW SD 40.3 35.7 - 48.1 fL [facility] NRBC abs 0.00 0.00 - 0.01 K/cumm [facility] Blood 04/07/2024 12:5 1 AM SUPERINTENDENT MEASUREMENT 04/07/2024 1:14 AM SUPERINTENDENT MEASUREMENT us Marissa Vitale DO LAB BLOOD ORDERABLES F inal Result [facility] [address] Department [place] [address] * (ABNORMAL) Renal function panel (04/07/2024 12:51 AM SUPERINTENDENT MEASUREMENT) [facility] Sodium 135 135 - 145 mmol/L Potassium, pl 4.4 3.3 - 4.9 mmol/L [facility] Chloride 101 97 - 110 mmol/L [facility] CO2 26 22 - 32 mmol/L [facility] Anion gap 8 2 - 15 mmol/L [facility] BUN 28(H) 6 - 25 mg/dL [facility] Creatinine 1.03 0.80 - 1.30 mg/dL [facility] Glucose 136 70 - 199 mg/dL [facility] Comment: Interpretive Data Fasting glucose [...] 2022. Calcium 8.9 8.5 - 10.3 mg/dL [facility] Phosphorus, pl 2.8 2.3 - 4.5 mg/dL [facility] Albumin 3.2(L) 3.5 - 5.0 g/dL [facility] Blood 04/07/2024 12:5 1 AM SUPERINTENDENT MEASUREMENT 04/07/2024 1:14 AM SUPERINTENDENT MEASUREMENT Marissa Vitale DO LAB BLOOD ORDERABLES F inal Result [facility] [address] [place] [address] * (ABNORMAL) Hemoglobin and hematocrit (04/06/2024 5:18 PM SUPERINTENDENT MEASUREMENT) Hgb 9.5(L) 13.0 - 17.5 g/dL Hct 29.0(L) 38.9 - 50.3 % [facility] Blood 04/06/2024 5:18 PM SUPERINTENDENT MEASUREMENT 04/06/2024 5:48 PM SUPERINTENDENT MEASUREMENT Marissa Moni Vitale DO LAB BLOOD ORDERABLES F inal Result [facility] [address] Department [place] [address] * XR Chest 1 View (04/06/2024 5:06 AM SUPERINTENDENT MEASUREMENT) Anatomical Region Laterality Modality Body, Chest N/A Computed Radiogr aphy 04/06/2024 9:04 AM SUPERINTENDENT MEASUREMENT Impressions 04/06/2024 9:04 AM SUPERINTENDENT MEASUREMENT Feeding tube courses below the diaphragm, loops [...] Goldstein MD, PHD Narrative 04/06/2024 9:04 AM SUPERINTENDENT MEASUREMENT EXAMINATION: XR CHEST 1 VIEW HISTORY: Shortness [...] Electronically signed by: Kyrie Goldstein MD, PHD Marissa Vitale DO IMG XR PROCEDURES Hamida l Result * Renal function panel - Add on lab test (04/06/2024 3:29 AM SUPERINTENDENT MEASUREMENT) Acceptable Yes Blood 04/06/2024 3:29 AM SUPERINTENDENT MEASUREMENT 04/06/2024 3:30 AM SUPERINTENDENT MEASUREMENT Narrative [facility] - 04/06/2024 3:31 AM SUPERINTENDENT MEASUREMENT Name of Test->Renal function panel Pedro Senior MD LAB BLOOD ORDERABLES Final R esult Performing Organization Address [facility]/ZIP Co de Phone Number [facility] [address] Department [place] [address] * eGFR (04/06/2024 2:29 AM SUPERINTENDENT MEASUREMENT) eGFR 63 >=60 mL/min/1. 73 m2 Comment: [...] last reviewed 2021. Blood 04/06/2024 2:29 AM SUPERINTENDENT MEASUREMENT 04/06/2024 2:29 AM SUPERINTENDENT MEASUREMENT us Marissa Vitale DO LAB BLOOD ORDERABLES F inal Result Performing Organization Address [facility]/ZIP Co de Phone Number [facility] [address] Department [place] [address] * (ABNORMAL) Differential, auto (04/06/2024 2:29 AM SUPERINTENDENT MEASUREMENT) Neutrophil abs 7.5(H) 1.5 - 6.5 K/cumm Imm gran abs 0.0 0.0 - 0.1 K/cumm [facility] Lymphocyte abs 0.6(L) 0.8 - 3.3 K/cumm [facility] Monocyte abs 0.8 0.2 - 0.8 K/cumm [facility] Eosinophil abs 0.1 0.0 - 0.5 K/cumm [facility] Basophil abs 0.1 0.0 - 0.1 K/cumm [facility] Neutrophil pct 82.2 % [facility] Comment: Interpretive Data Percent cell count reference ranges are not reported, since discordance with absolute values may lead to misinterpretation of CBC data. Current Interpretive Data was last revised on 2017. Imm gran pct 0.4 % [facility] Comment: Interpretive Data Percent cell count reference ranges are not reported, since discordance with absolute values may lead to misinterpretation of CBC data. Current Interpretive Data was last revised on 2017. Lymphocyte pct 7.0 % [facility] Comment: Interpretive Data Percent cell count reference ranges are not reported, since discordance with absolute values may lead to misinterpretation of CBC data. Current Interpretive Data was last revised on 2017. Monocyte pct 8.2 % [facility] Comment: Interpretive Data Percent cell count reference ranges are not reported, since discordance with absolute values may lead to misinterpretation of CBC data. Current Interpretive Data was last revised on 2017. Eosinophil pct 1.4 % [facility] Comment: Interpretive Data Percent cell count reference ranges are not reported, since discordance with absolute values may lead to misinterpretation of CBC data. Current Interpretive Data was last revised on 2017. Basophil pct 0.8 % [facility] Comment: Interpretive Data Percent cell count reference ranges are not reported, since discordance with absolute values may lead to misinterpretation of CBC data. Current Interpretive Data was last revised on 2017. Blood 04/06/2024 2:29 AM SUPERINTENDENT MEASUREMENT 04/06/2024 2:29 AM SUPERINTENDENT MEASUREMENT us Marissa Vitale DO LAB BLOOD ORDERABLES F inal Result [facility] [address] Department of Laboratories [place], [place] [id number] * (ABNORMAL) Procalcitonin (04/06/2024 2:29 AM SUPERINTENDENT MEASUREMENT) Procalcitonin 0.76(H) <=0.25 ng/mL Blood 04/06/2024 2:29 AM SUPERINTENDENT MEASUREMENT 04/06/2024 2:29 AM SUPERINTENDENT MEASUREMENT Marissa Burnsjeremiah Vitale LAB BLOOD ORDERABLES F inal Result Performing Organization Address [facility] Co de Phone Number [facility] [address] [place] [address] * (ABNORMAL) CBC with auto differential (04/06/2024 2:29 AM SUPERINTENDENT MEASUREMENT) Pathologist [facility] WBC 9.1 3.8 - 9.9 K/cumm Hgb 9.3(L) 13.0 - 17.5 g/dL [facility] Hct 28.1(L) 38.9 - 50.3 % [facility] Plt 256 150 - 400 K/cumm [facility] MPV 9.1 9.1 - 12.3 fL [facility] RBC 3.18(L) 4.30 - 5.80 M/cumm [facility] MCV 88.4 81.3 - 96.4 fL [facility] MCH 29.2 27.1 - 33.3 pg [facility] MCHC 33.1 32.3 - 35.7 g/dL [facility] RDW CV 12.4 11.1 - 14.9 % [facility] RDW SD 40.1 35.7 - 48.1 fL [facility] NRBC abs 0.00 0.00 - 0.01 K/cumm [facility] Blood 04/06/2024 2:29 AM SUPERINTENDENT MEASUREMENT 04/06/2024 2:29 AM SUPERINTENDENT MEASUREMENT Marissa Vitale DO LAB BLOOD ORDERABLES F inal Result Performing Organization Address [facility]/ZIP Co de Phone Number [facility] [address] Department [employer] [place], [place] [id number] * (ABNORMAL) Renal function panel (04/06/2024 2:29 AM SUPERINTENDENT MEASUREMENT) Pathologist [facility] Sodium 128(L) 135 - 145 mmol/L Potassium, pl 4.6 3.3 - 4.9 mmol/L [facility] Chloride 96(L) 97 - 110 mmol/L [facility] CO2 20(L) 22 - 32 mmol/L [facility] Anion gap 12 2 - 15 mmol/L [facility] BUN 29(H) 6 - 25 mg/dL [facility] Creatinine 1.15 0.80 - 1.30 mg/dL [facility] Glucose 144 70 - 199 mg/dL [facility] Comment: Interpretive Data Fasting glucose [...] 2022. Calcium 8.5 8.5 - 10.3 mg/dL [facility] Phosphorus, pl 2.8 2.3 - 4.5 mg/dL [facility] Albumin 3.0(L) 3.5 - 5.0 g/dL [facility] Blood 04/06/2024 2:29 AM SUPERINTENDENT MEASUREMENT 04/06/2024 2:29 AM SUPERINTENDENT MEASUREMENT us Marissa Vitale DO LAB BLOOD ORDERABLES F inal Result [facility] [address] Department [place] [address] * (ABNORMAL) Blood gas, venous (04/06/2024 2:15 AM SUPERINTENDENT MEASUREMENT) [facility] pH, Venous 7.40 7.32 - 7.43 PCO2, Venous 37(L) 40 - 50 mmHg [facility] PO2, Venous 75 mmHg [facility] Comment: Interpretive Data No Reference Range Established Current Interpretive Data was last revised on 2017. HCO3 Venous, Calculated 23 20 - 30 mmol/L [facility] BE, venous -2 mmol/L [facility] Comment: nterpretive Data No Reference Range Established Current Interpretive Data was last revised on 2017. Blood 04/06/2024 2:15 AM SUPERINTENDENT MEASUREMENT 04/06/2024 2:25 AM SUPERINTENDENT MEASUREMENT Marissa Vitale DO LAB BLOOD ORDERABLES F inal Result Performing Organization Address [facility] Co de Phone Number [facility] [address] Department [place] [address] * POCT glucose (04/05/2024 12:05 PM SUPERINTENDENT MEASUREMENT) [facility] Glucose, POC 77 70 - 199 mg/dL Comment: For Glucose values <35 mg/dl when Hematocrit is >60 mg/dl,the test may not accurately detect significant hypoglycemia,and testing in the Laboratory should be considered if clinically indicated. Blood 04/05/2024 12:0 5 PM SUPERINTENDENT MEASUREMENT 04/05/2024 12:05 PM SUPERINTENDENT MEASUREMENT Marissa Vitale DO LAB POCT ORDERABLES - DEVICE Final Result Performing Organization Address [facility] Co de Phone Number [facility] [address] Department [place] [address] * XR Kub (04/05/2024 10:23 AM SUPERINTENDENT MEASUREMENT) Anatomical Region Laterality Modality Body, Abdomen N/A Computed Radiogr aphy 04/05/2024 10:4 4 AM SUPERINTENDENT MEASUREMENT Impressions 04/05/2024 10:44 AM SUPERINTENDENT MEASUREMENT Interval placement of a Dobbhoff catheter. Its [...] Eloisa Tineo M.D. Narrative 04/05/2024 10:44 AM SUPERINTENDENT MEASUREMENT EXAMINATION: KUB-abdomen one view HISTORY: Dobbhoff COMPARISON: [...] Barium Swallow W Video (04/05/2024 9:52 AM SUPERINTENDENT MEASUREMENT) Anatomical Region Laterality Modality Head and Neck N/A Radio Fluoroscop y 04/05/2024 10:4 6 AM SUPERINTENDENT MEASUREMENT Impressions 04/05/2024 2:51 PM SUPERINTENDENT MEASUREMENT 1. There is transglottic aspiration with thin [...] Mo Stahl M.D. Narrative 04/05/2024 2:51 PM SUPERINTENDENT MEASUREMENT EXAMINATION: MODIFIED BARIUM SWALLOW 04/05/2024 HISTORY: Dysphagia. [...] Result * POCT glucose (04/05/2024 4:30 AM SUPERINTENDENT MEASUREMENT) Glucose, POC 71 70 - 199 mg/dL Comment: For Glucose values <35 mg/dl when Hematocrit is >60 mg/dl,the test may not accurately detect significant hypoglycemia,and testing in the Laboratory should be considered if clinically indicated. Blood 04/05/2024 4:30 AM SUPERINTENDENT MEASUREMENT 04/05/2024 4:30 AM SUPERINTENDENT MEASUREMENT Krishna Salcedo MD LAB POCT ORDERABLES - DEVICE Final Result [facility] [address] Department [place] [address] * eGFR (04/05/2024 3:39 AM SUPERINTENDENT MEASUREMENT) [facility] eGFR 65 >=60 mL/min/1. 73 m2 Comment: [...] last reviewed 2021. Blood 04/05/2024 3:39 AM SUPERINTENDENT MEASUREMENT 04/05/2024 3:53 AM SUPERINTENDENT MEASUREMENT us Tian Long MD LAB BLOOD ORDERABLES Final Result [facility] [address] Department [place] [address] * (ABNORMAL) CBC without differential (04/05/2024 3:39 AM SUPERINTENDENT MEASUREMENT) [facility] WBC 8.8 3.8 - 9.9 K/cumm Hgb 10.5(L) 13.0 - 17.5 g/dL [facility] Hct 32.3(L) 38.9 - 50.3 % [facility] Plt 284 150 - 400 K/cumm [facility] MPV 8.8(L) 9.1 - 12.3 fL [facility] RBC 3.67(L) 4.30 - 5.80 M/cumm [facility] MCV 88.0 81.3 - 96.4 fL [facility] MCH 28.6 27.1 - 33.3 pg [facility] MCHC 32.5 32.3 - 35.7 g/dL [facility] RDW CV 12.3 11.1 - 14.9 % [facility] RDW SD 39.8 35.7 - 48.1 fL [facility] NRBC abs 0.00 0.00 - 0.01 K/cumm [facility] Blood 04/05/2024 3:39 AM SUPERINTENDENT MEASUREMENT 04/05/2024 3:53 AM SUPERINTENDENT MEASUREMENT Krishna Salcedo MD LAB BLOOD ORDERABLES Final R esult [facility] [address] Department [place] [address] * Magnesium (04/05/2024 3:39 AM SUPERINTENDENT MEASUREMENT) [facility] Magnesium 2.2 1.4 - 2.5 mg/dL Blood 04/05/2024 3:39 AM SUPERINTENDENT MEASUREMENT 04/05/2024 3:53 AM SUPERINTENDENT MEASUREMENT Marissa Vitale DO LAB BLOOD ORDERABLES F inal Result Performing Organization Address [facility] Co de Phone Number [facility] [address] Department [place] [address] * (ABNORMAL) Renal function panel (04/05/2024 3:39 AM SUPERINTENDENT MEASUREMENT) [facility] Sodium 131(L) 135 - 145 mmol/L Potassium, pl 4.5 3.3 - 4.9 mmol/L [facility] Chloride 97 97 - 110 mmol/L [facility] CO2 20(L) 22 - 32 mmol/L [facility] Anion gap 14 2 - 15 mmol/L [facility] BUN 19 6 - 25 mg/dL [facility] Creatinine 1.11 0.80 - 1.30 mg/dL [facility] Glucose 63(L) 70 - 199 mg/dL [facility] Comment: Interpretive Data Fasting glucose [...] 2022. Calcium 8.7 8.5 - 10.3 mg/dL [facility] Phosphorus, pl 3.3 2.3 - 4.5 mg/dL [facility] Albumin 3.3(L) 3.5 - 5.0 g/dL [facility] Blood 04/05/2024 3:39 AM SUPERINTENDENT MEASUREMENT 04/05/2024 3:53 AM SUPERINTENDENT MEASUREMENT us Tian Long MD LAB BLOOD ORDERABLES Final Result [facility] [address] Department [place] [address] * eGFR (04/04/2024 4:18 PM SUPERINTENDENT MEASUREMENT) eGFR 61 >=60 mL/min/1. 73 m2 Comment: [...] last reviewed 2021. Blood 04/04/2024 4:18 PM SUPERINTENDENT MEASUREMENT 04/04/2024 4:30 PM SUPERINTENDENT MEASUREMENT Tian Long MD LAB BLOOD ORDERABLES Final Result [facility] [address] Department [place] [address] * (ABNORMAL) Renal function panel (04/04/2024 4:18 PM SUPERINTENDENT MEASUREMENT) Sodium 131(L) 135 - 145 mmol/L Potassium, pl 4.7 3.3 - 4.9 mmol/L [facility] Chloride 99 97 - 110 mmol/L [facility] CO2 20(L) 22 - 32 mmol/L [facility] Anion gap 12 2 - 15 mmol/L [facility] BUN 22 6 - 25 mg/dL [facility] Creatinine 1.18 0.80 - 1.30 mg/dL [facility] Glucose 76 70 - 199 mg/dL [facility] Comment: Interpretive Data Fasting glucose [...] 2022. Calcium 8.6 8.5 - 10.3 mg/dL [facility] Phosphorus, pl 4.0 2.3 - 4.5 mg/dL [facility] Albumin 3.0(L) 3.5 - 5.0 g/dL [facility] Blood 04/04/2024 4:18 PM SUPERINTENDENT MEASUREMENT 04/04/2024 4:30 PM SUPERINTENDENT MEASUREMENT Tian Long MD LAB BLOOD ORDERABLES Final Result Performing Organization Address [facility] Co de Phone Number [facility] [address] [place], [place] [id number] * Sodium, urine, random (04/04/2024 6:11 AM SUPERINTENDENT MEASUREMENT) Sodium, ur 129 mmol/L Comment: Interpretive Data No reference range established. Current interpretive data was last revised 2018. Urine 04/04/2024 6:11 AM SUPERINTENDENT MEASUREMENT 04/04/2024 6:39 AM SUPERINTENDENT MEASUREMENT Tian Long MD LAB URINE ORDERABLES Final Result Performing Organization Address [facility] de Phone Number [facility] [address] [place], [place] [id number] * Osmolality, urine (04/04/2024 6:11 AM SUPERINTENDENT MEASUREMENT) Osmo, ur 549 300 - 800 mOsm/kg Urine 04/04/2024 6:11 AM SUPERINTENDENT MEASUREMENT 04/04/2024 6:39 AM SUPERINTENDENT MEASUREMENT Tain Long MD LAB URINE ORDERABLES Final Result Performing Organization Address [facility] de Phone Number [facility] [address] [place] [address] * Creatinine, urine, random (04/04/2024 6:11 AM SUPERINTENDENT MEASUREMENT) Creatinine Ur 71.0 mg/dL Comment: Interpretive Data No reference range established. Current interpretive data was last revised 2018. Urine 04/04/2024 6:11 AM SUPERINTENDENT MEASUREMENT 04/04/2024 6:39 AM SUPERINTENDENT MEASUREMENT Tian Long MD LAB URINE ORDERABLES Final Result Performing Organization Address [facility] Co de Phone Number [facility] [address] Department [place] [address] * eGFR (04/04/2024 2:56 AM SUPERINTENDENT MEASUREMENT) eGFR 60 >=60 mL/min/1. 73 m2 Comment: [...] last reviewed 2021. Blood 04/04/2024 2:56 AM SUPERINTENDENT MEASUREMENT 04/04/2024 3:16 AM SUPERINTENDENT MEASUREMENT Tian Long MD LAB BLOOD ORDERABLES Final Result Performing Organization Address [facility] Co de Phone Number [facility] [address] Department [place] [address] * (ABNORMAL) CBC without differential (04/04/2024 2:56 AM SUPERINTENDENT MEASUREMENT) Pathologist [facility] WBC 8.0 3.8 - 9.9 K/cumm Hgb 10.9(L) 13.0 - 17.5 g/dL [facility] Hct 32.5(L) 38.9 - 50.3 % [facility] Plt 278 150 - 400 K/cumm [facility] MPV 9.2 9.1 - 12.3 fL [facility] RBC 3.70(L) 4.30 - 5.80 M/cumm [facility] MCV 87.8 81.3 - 96.4 fL [facility] MCH 29.5 27.1 - 33.3 pg [facility] MCHC 33.5 32.3 - 35.7 g/dL [facility] RDW CV 12.6 11.1 - 14.9 % [facility] RDW SD 40.3 35.7 - 48.1 fL [facility] NRBC abs 0.00 0.00 - 0.01 K/cumm [facility] Blood 04/04/2024 2:56 AM SUPERINTENDENT MEASUREMENT 04/04/2024 3:16 AM SUPERINTENDENT MEASUREMENT Krishna Salcedo MD LAB BLOOD ORDERABLES Final R esult Performing Organization Address [facility] Co de Phone Number [facility] [address] [place] [address] * (ABNORMAL) TSH (04/04/2024 2:56 AM SUPERINTENDENT MEASUREMENT) [facility] Thyroid Stimulating Hormone 11.20(H) 0.30 - 4.20 mcIUnit/mL Blood 04/04/2024 2:56 AM SUPERINTENDENT MEASUREMENT 04/04/2024 3:16 AM SUPERINTENDENT MEASUREMENT Krishna Salcedo MD LAB BLOOD ORDERABLES Final R esult Performing Organization Address [facility] Co de Phone Number [facility] [address] [place] [address] * (ABNORMAL) Renal function panel (04/04/2024 2:56 AM SUPERINTENDENT MEASUREMENT) Sodium 125(L) 135 - 145 mmol/L Potassium, pl 4.6 3.3 - 4.9 mmol/L [facility] Chloride 94(L) 97 - 110 mmol/L [facility] CO2 20(L) 22 - 32 mmol/L [facility] Anion gap 11 2 - 15 mmol/L [facility] BUN 20 6 - 25 mg/dL [facility] Creatinine 1.20 0.80 - 1.30 mg/dL [facility] Glucose 70 70 - 199 mg/dL [facility] Comment: Interpretive Data Fasting glucose [...] 2022. Calcium 8.5 8.5 - 10.3 mg/dL [facility] Phosphorus, pl 3.9 2.3 - 4.5 mg/dL [facility] Albumin 3.0(L) 3.5 - 5.0 g/dL [facility] Blood 04/04/2024 2:56 AM SUPERINTENDENT MEASUREMENT 04/04/2024 3:16 AM SUPERINTENDENT MEASUREMENT us Tian Long MD LAB BLOOD ORDERABLES Final Result [facility] [address] Department [place] [address] * eGFR (04/03/2024 5:59 PM SUPERINTENDENT MEASUREMENT) eGFR 65 >=60 mL/min/1. 73 m2 Comment: [...] last reviewed 2021. Blood 04/03/2024 5:59 PM SUPERINTENDENT MEASUREMENT 04/03/2024 6:07 PM SUPERINTENDENT MEASUREMENT us Krishna Salcedo MD LAB BLOOD ORDERABLES Final R esult [facility] [address] Department [place] [address] * (ABNORMAL) Renal function panel (04/03/2024 5:59 PM SUPERINTENDENT MEASUREMENT) Sodium 126(L) 135 - 145 mmol/L Potassium, pl 4.6 3.3 - 4.9 mmol/L [facility] Chloride 94(L) 97 - 110 mmol/L [facility] CO2 20(L) 22 - 32 mmol/L [facility] Anion gap 12 2 - 15 mmol/L [facility] BUN 17 6 - 25 mg/dL [facility] Creatinine 1.11 0.80 - 1.30 mg/dL [facility] Glucose 93 70 - 199 mg/dL [facility] Comment: Interpretive Data Fasting glucose [...] 2022. Calcium 8.3(L) 8.5 - 10.3 mg/dL [facility] Phosphorus, pl 3.8 2.3 - 4.5 mg/dL [facility] Albumin 3.0(L) 3.5 - 5.0 g/dL [facility] Blood 04/03/2024 5:59 PM SUPERINTENDENT MEASUREMENT 04/03/2024 6:07 PM SUPERINTENDENT MEASUREMENT Krishna Salcedo MD LAB BLOOD ORDERABLES Final R esult Performing Organization Address [facility] Co de Phone Number [facility] [address] Department [place] [address] * Aerobic culture and gram stain Sputum Lung (04/03/2024 3:55 PM SUPERINTENDENT MEASUREMENT) Direct Specimen Exam Stain: Many polymorphonuclear leukocytes seen. Many Gram Positive Cocci Many Gram Negative Bacilli Report Final Report: Heavy growth normal krupa [facility] Sputum (Lung) 04/03/2024 3:5 5 PM SUPERINTENDENT MEASUREMENT 04/03/2024 4:31 PM SUPERINTENDENT MEASUREMENT Krishna Salcedo MD LAB MICROBIOLOGY - GENERAL O RDERABLES Final Result Performing Organization Address [facility] Co de Phone Number [facility] [address] Department [place] [address] * MRSA Only (Staphylococcus aureus) PCR Nasal (04/03/2024 3:55 PM SUPERINTENDENT MEASUREMENT) PCR Scrn, Methicillin resistant Staphylococcus aureus (MRSA) Not Detected Not Detected Comment: Interpretive Data Testing performed using Nucleic Acid Amplification with the [employer] Xpert MRSA NxG Assay. This assay detects target DNA from mecA, mecC and the SCCmec insertion site of Staphylococcus aureus using Real-Time PCR and has been cleared by the FDA. Performance characteristics have been verified by the [facility]. Current Interpretive Data was last revised on 2023 Nasal 04/03/2024 3:55 PM SUPERINTENDENT MEASUREMENT 04/03/2024 4:31 PM SUPERINTENDENT MEASUREMENT Krishna Salcedo MD LAB MICROBIOLOGY - GENERAL O RDERABLES Final Result Performing Organization Address [facility] Co de Phone Number [facility] [address] [place] [address] * Cortisol - Add on lab test (04/03/2024 2:48 PM SUPERINTENDENT MEASUREMENT) Acceptable Yes Blood 04/03/2024 2:48 PM SUPERINTENDENT MEASUREMENT 04/03/2024 2:48 PM SUPERINTENDENT MEASUREMENT Narrative [facility] 04/03/2024 2:48 PM SUPERINTENDENT MEASUREMENT Name of Test->Cortisol Tian Long MD LAB BLOOD ORDERABLES Final Result Performing Organization Address [facility]/ZIP Co de Phone Number [facility] [address] [facility] [employer] [place], [place] [id number] * TSH reflex Free T4 - Add on lab test (04/03/2024 2:48 PM SUPERINTENDENT MEASUREMENT) Acceptable Yes Blood 04/03/2024 2:48 PM SUPERINTENDENT MEASUREMENT 04/03/2024 2:48 PM SUPERINTENDENT MEASUREMENT Narrative [facility] 04/03/2024 2:48 PM SUPERINTENDENT MEASUREMENT Name of Test->TSH reflex Free T4 Tian Long MD LAB BLOOD ORDERABLES Final Result Performing Organization Address [facility] Co de Phone Number [facility] [address] [facility] [employer] [place], [place] [id number] * Sodium, urine, random - Add on lab test (04/03/2024 2:48 PM SUPERINTENDENT MEASUREMENT) Acceptable Yes Blood 04/03/2024 2:48 PM SUPERINTENDENT MEASUREMENT 04/03/2024 2:48 PM SUPERINTENDENT MEASUREMENT Narrative [facility] 04/03/2024 2:48 PM SUPERINTENDENT MEASUREMENT Name of Test->Sodium, urine, random Tian Long MD LAB BLOOD ORDERABLES Final Result Performing Organization Address [facility]/ZIP Co de Phone Number [facility] [address] Department [employer] [place], [place] [id number] * Osmolality, urine - Add on lab test (04/03/2024 2:48 PM SUPERINTENDENT MEASUREMENT) Acceptable Yes Blood 04/03/2024 2:48 PM SUPERINTENDENT MEASUREMENT 04/03/2024 2:48 PM SUPERINTENDENT MEASUREMENT Narrative [facility] - 04/03/2024 2:48 PM SUPERINTENDENT MEASUREMENT Name of Test->Osmolality, urine us Tian Long MD LAB BLOOD ORDERABLES Final Result [facility] [address] Department [place] [address] * TRANSTHORACIC ECHO (TTE) COMPLETE W DOPPLER/CF WO CONTRAST (04/03/2024 2:46 PM SUPERINTENDENT MEASUREMENT) LV EF 50-55 % CONS SCIMAGE Anatomical Region Laterality Modality Ultrasound 04/03/2024 12:2 5 PM SUPERINTENDENT MEASUREMENT Narrative 04/03/2024 7:33 PM SUPERINTENDENT MEASUREMENT [facility] [address] [place] [address] ECHOCARDIOGRAM Patient Name: GIAN LEE E : 1940 (83y 8m) Gender: M Study Date: 04/03/2024 12:25:32 PM Ht(Inch): 68 Wt(Lb): 166.01 BSA: 1.9 Cannoneer: CHANDU Location: [id number] Order Provider: KRISHNA SALCEDO BMI: 25.24 BP: [...] By: Gian Trevino MD 04/03/2024 7:32:32 PM SUPERINTENDENT MEASUREMENT Procedure Note Gian Trevino MD - 04/03/2024 [id number] [place] [address] ECHOCARDIOGRAM Patient Name: GIAN LEE E : 1940 (83y 8m) Gender: M Study Date: 04/03/2024 12:25:32 PM Ht(Inch): 68 Wt(Lb): 166.01 BSA: 1.9 Cannoneer: CHANDU Location: [id number] Order Provider: KRISHNA SALCEDO BMI: 25.24 BP: [...] [ 3.00 - 4.00 ] LVOT Peak Jreemy 1.16m/s [ 0.70 - 1.10 ] AoR [...] By: Gian Trevino MD 04/03/2024 7:32:32 PM SUPERINTENDENT MEASUREMENT Krishna Salcedo MD CV ECHO PROCEDURES Final Res ult * (ABNORMAL) Lactate (04/03/2024 11:06 AM SUPERINTENDENT MEASUREMENT) [facility] Lactate 0.6(L) 0.7 - 2.0 mmol/L Blood 04/03/2024 11:0 6 AM SUPERINTENDENT MEASUREMENT 04/03/2024 11:15 AM SUPERINTENDENT MEASUREMENT Krishna Salcedo MD LAB BLOOD ORDERABLES Final R esult [facility] [address] Department [place] [address] * eGFR (04/03/2024 11:06 AM SUPERINTENDENT MEASUREMENT) eGFR 75 >=60 mL/min/1. 73 m2 Comment: [...] reviewed 2021. Blood 04/03/2024 11:0 6 AM SUPERINTENDENT MEASUREMENT 04/03/2024 11:23 AM SUPERINTENDENT MEASUREMENT us Krishna Salcedo MD LAB BLOOD ORDERABLES Final R esult [facility] [address] Department [place] [address] * (ABNORMAL) Pro B-type natriuretic peptide (04/03/2024 11:06 AM SUPERINTENDENT MEASUREMENT) NT-proBNP 1,928(H) <=450 pg/mL Comment: Interpretive Comments: [...] Date: 2017. Blood 04/03/2024 11:0 6 AM SUPERINTENDENT MEASUREMENT 04/03/2024 11:23 AM SUPERINTENDENT MEASUREMENT Krishna Salcedo MD LAB BLOOD ORDERABLES Final R esult Performing Organization Address [facility]/ZIP Co de Phone Number [facility] [address] [place] [address] * (ABNORMAL) Thyroid Function Baldwin (04/03/2024 11:06 AM SUPERINTENDENT MEASUREMENT) TSH 10.50(H) 0.30 - 4.20 mcIUnit/mL Blood 04/03/2024 11:0 6 AM SUPERINTENDENT MEASUREMENT 04/03/2024 11:23 AM SUPERINTENDENT MEASUREMENT Krishna Salcedo MD LAB BLOOD ORDERABLES Final R esult Performing Organization Address [facility]/ZIP Co de Phone Number [facility] [address] [place] [address] * (ABNORMAL) Urinalysis reflex to microscopic and culture Urine (04/03/2024 11:06 AM SUPERINTENDENT MEASUREMENT) Color, ur Yellow Yellow Clarity, ur Clear Clear [facility] Specific gravity, ur 1.042(H) 1.003 - 1.030 [facility] pH, urine 7.0 [facility] Comment: Interpretive Data U rine pH is affected by diet, medications, systemic acid-base disturbances, and renal tubular function. pH may affect urinary stone formation. For example, urine pH below 6.0 may help reduce the tendency for calcium phosphate stones and pH greater than 6.0 may reduce the tendency for uric acid stone formation. Source: [facility] Current Interpretive Data was last revised on 2017 Protein, ur ql Trace Negative [facility] Glucose, ur ql Negative Negative [facility] Ketones, ur Negative Negative [facility] Bilirubin, ur Negative Negative [facility] Blood, ur 3+(A) Negative [facility] Urobilinogen, ur <2.0 <2.0 mg/dL [facility] Nitrite, ur Negative Negative [facility] Leukocyte esterase, ur Negative Negative [facility] UA reflex comment Reflex to microscopic UA will be performed. [facility] Urine 04/03/2024 11:0 6 AM SUPERINTENDENT MEASUREMENT 04/03/2024 11:06 AM SUPERINTENDENT MEASUREMENT Krishna Salcedo MD LAB MICROBIOLOGY - GENERAL O RDERABLES Final Result [facility] [address] Department [place] [address] * Strep pneumoniae antigen, urine Urine (04/03/2024 11:06 AM SUPERINTENDENT MEASUREMENT) S. pneumoniae Ag Negative Negative Comment: Interpretive [...] on 2022 Urine 04/03/2024 11:0 6 AM SUPERINTENDENT MEASUREMENT 04/03/2024 11:32 AM SUPERINTENDENT MEASUREMENT Krishna Salcedo MD LAB MICROBIOLOGY - GENERAL O RDERABLES Final Result Performing Organization Address [facility] de Phone Number [facility] [address] [facility] [address] * Legionella antigen Urine (04/03/2024 11:06 AM SUPERINTENDENT MEASUREMENT) Legionella Ag Negative Negative Comment: Interpretive Data This test detects only Legionella pneumophila serogroup 1 antigen. Current interpretive data was last revised on 2019. Urine 04/03/2024 11:0 6 AM SUPERINTENDENT MEASUREMENT 04/03/2024 11:32 AM SUPERINTENDENT MEASUREMENT Krishna Salcedo MD LAB MICROBIOLOGY - GENERAL O RDERABLES Final Result Performing Organization Address [facility] Phone Number [facility] [address] [place] [address] * Sodium, urine, random (04/03/2024 11:06 AM SUPERINTENDENT MEASUREMENT) Sodium, ur 145 mmol/L Comment: Interpretive Data No reference range established. Current interpretive data was last revised 2018. Urine 04/03/2024 11:0 6 AM SUPERINTENDENT MEASUREMENT 04/03/2024 3:13 PM SUPERINTENDENT MEASUREMENT Krishna Salcedo MD LAB URINE ORDERABLES Final R esult Performing Organization Address [facility] de Phone Number [facility] [address] Department [place] [address] * Osmolality, urine (04/03/2024 11:06 AM SUPERINTENDENT MEASUREMENT) Osmo, ur 526 300 - 800 mOsm/kg Urine 04/03/2024 11:0 6 AM SUPERINTENDENT MEASUREMENT 04/03/2024 3:14 PM SUPERINTENDENT MEASUREMENT Krishna Salcedo MD LAB URINE ORDERABLES Final R esult Performing Organization Address [facility] de Phone Number [facility] [address] [place] [address] * (ABNORMAL) Urinalysis, microscopic only (04/03/2024 11:06 AM SUPERINTENDENT MEASUREMENT) WBC, ur 0-5 0 - 5 /HPF RBC, ur >50(A) 0 - 2 /HPF [facility] Bacteria, ur Trace(A) [facility] Culture Reflex Comment Reflex conditions for urine culture (WBC >10) not met. [facility] Urine 04/03/2024 11:0 6 AM SUPERINTENDENT MEASUREMENT 04/03/2024 11:23 AM SUPERINTENDENT MEASUREMENT Krishna Salcedo MD LAB URINE ORDERABLES Final R esult Performing Organization Address [facility] Co de Phone Number [facility] [address] [facility] [address] * (ABNORMAL) aPTT (04/03/2024 11:06 AM SUPERINTENDENT MEASUREMENT) aPTT 39(H) 28 - 38 sec Comment: Interpretive Data Heparin therapeutic range: 66.0 - 100.0 seconds. Range based on correlation with therapeutic heparin activity range of 0.3 - 0.7 Units/mL. Current interpretive data was last revised on 2022. Blood 04/03/2024 11:0 6 AM SUPERINTENDENT MEASUREMENT 04/03/2024 11:22 AM SUPERINTENDENT MEASUREMENT Krishna Salcedo MD LAB BLOOD ORDERABLES Final R esult Performing Organization Address [facility]/ZIP Co de Phone Number [facility] [address] [place] [address] * (ABNORMAL) Protime-INR (04/03/2024 11:06 AM SUPERINTENDENT MEASUREMENT) PT 17.7(H) 9.7 - 13.0 sec INR 1.62(H) 0.90 - 1.20 [facility] Comment: Interpretive data Oral anticoagulant therapeutic ranges: Venous thromboembolism prophylaxis or treatment: 2.0-3.0 CARDIOLOGY Standard range: 2.0-3.0 High-intensity range: 2.5-3.5 Refer to indication-specific guidelines for appropriate target ranges for prosthetic heart valve replacement. Current interpretive data was last revised on 2019. Blood 04/03/2024 11:0 6 AM SUPERINTENDENT MEASUREMENT 04/03/2024 11:22 AM SUPERINTENDENT MEASUREMENT Krishna Salcedo MD LAB BLOOD ORDERABLES Final R esult Performing Organization Address [facility]/ZIP Co de Phone Number [facility] [address] Department [place] [address] * (ABNORMAL) CBC without differential (04/03/2024 11:06 AM SUPERINTENDENT MEASUREMENT) WBC 8.6 3.8 - 9.9 K/cumm Hgb 10.0(L) 13.0 - 17.5 g/dL [facility] Hct 30.8(L) 38.9 - 50.3 % [facility] Plt 249 150 - 400 K/cumm [facility] MPV 9.1 9.1 - 12.3 fL [facility] RBC 3.43(L) 4.30 - 5.80 M/cumm [facility] MCV 89.8 81.3 - 96.4 fL [facility] MCH 29.2 27.1 - 33.3 pg [facility] MCHC 32.5 32.3 - 35.7 g/dL [facility] RDW CV 12.7 11.1 - 14.9 % [facility] RDW SD 41.0 35.7 - 48.1 fL [facility] NRBC abs 0.00 0.00 - 0.01 K/cumm [facility] Blood 04/03/2024 11:0 6 AM SUPERINTENDENT MEASUREMENT 04/03/2024 11:23 AM SUPERINTENDENT MEASUREMENT Narrative [facility] - 04/03/2024 11:32 AM SUPERINTENDENT MEASUREMENT Baseline prior to rivaroxaban initiation Krishna Salecdo MD LAB BLOOD ORDERABLES Final R esult Performing Organization Address [facility]/ZIP Co de Phone Number [facility] [address] [facility] [place] [address] * Type and screen (04/03/2024 11:06 AM SUPERINTENDENT MEASUREMENT) ABO Rh O Positive Alex, indirect Negative [facility] Blood 04/03/2024 11:0 6 AM SUPERINTENDENT MEASUREMENT 04/03/2024 11:25 AM SUPERINTENDENT MEASUREMENT Narrative [facility] - 04/03/2024 12:03 PM SUPERINTENDENT MEASUREMENT Has the patient had Daratumumab or Isatuximab in the past 6 months?->Unknown Krishna Salcedo MD LAB BLOOD BANK TEST ORDERABL ES Final Result Performing Organization Address [facility] de Phone Number [facility] [address] Department [place] [address] * Uric acid (04/03/2024 11:06 AM SUPERINTENDENT MEASUREMENT) Uric acid 3.4 3.0 - 8.0 mg/dL Blood 04/03/2024 11:0 6 AM SUPERINTENDENT MEASUREMENT 04/03/2024 11:23 AM SUPERINTENDENT MEASUREMENT Krishna Salcedo MD LAB BLOOD ORDERABLES Final R esult Performing Organization Address [facility] de Phone Number [facility] [address] Department [place] [address] * T4, free (04/03/2024 11:06 AM SUPERINTENDENT MEASUREMENT) Free T4 0.95 0.90 - 1.70 ng/dL Blood 04/03/2024 11:0 6 AM SUPERINTENDENT MEASUREMENT 04/03/2024 11:23 AM SUPERINTENDENT MEASUREMENT Narrative [facility] - 04/03/2024 2:33 PM SUPERINTENDENT MEASUREMENT This test was reflexed from a TSH result. Krishna Salcedo MD LAB BLOOD ORDERABLES Final R esult Performing Organization Address [facility] Co de Phone Number [facility] [address] [facility] [place] [address] * Phosphorus (04/03/2024 11:06 AM SUPERINTENDENT MEASUREMENT) Phosphorus, pl 3.5 2.3 - 4.5 mg/dL Blood 04/03/2024 11:0 6 AM SUPERINTENDENT MEASUREMENT 04/03/2024 11:23 AM SUPERINTENDENT MEASUREMENT Krishna Salcedo MD LAB BLOOD ORDERABLES Final R esult Performing Organization Address [facility] Co de Phone Number [facility] [address] [facility] [place] [address] * Magnesium (04/03/2024 11:06 AM SUPERINTENDENT MEASUREMENT) Magnesium 2.0 1.4 - 2.5 mg/dL Blood 04/03/2024 11:0 6 AM SUPERINTENDENT MEASUREMENT 04/03/2024 11:23 AM SUPERINTENDENT MEASUREMENT Krishna Salcedo MD LAB BLOOD ORDERABLES Final R esult Performing Organization Address [facility] Co de Phone Number [facility] [address] [facility] [place] [address] * Cortisol (04/03/2024 11:06 AM SUPERINTENDENT MEASUREMENT) Cortisol 8.3 4.8 - 19.5 mcg/dl Blood 04/03/2024 11:0 6 AM SUPERINTENDENT MEASUREMENT 04/03/2024 11:23 AM SUPERINTENDENT MEASUREMENT Krishna Salcedo MD LAB BLOOD ORDERABLES Final R esult Performing Organization Address [facility] Co de Phone Number [facility] [address] [facility] [place] [address] * Bilirubin, direct (04/03/2024 11:06 AM SUPERINTENDENT MEASUREMENT) Bilirubin, direct 0.2 0.1 - 0.3 mg/dL Blood 04/03/2024 11:0 6 AM SUPERINTENDENT MEASUREMENT 04/03/2024 11:23 AM SUPERINTENDENT MEASUREMENT us Krishna Salcedo MD LAB BLOOD ORDERABLES Final R esult [facility] [address] Department [place] [address] * (ABNORMAL) Comprehensive metabolic panel (04/03/2024 11:06 AM SUPERINTENDENT MEASUREMENT) Sodium 122(L) 135 - 145 mmol/L Potassium, pl 4.4 3.3 - 4.9 mmol/L [facility] Chloride 89(L) 97 - 110 mmol/L [facility] CO2 21(L) 22 - 32 mmol/L [facility] Anion gap 12 2 - 15 mmol/L [facility] BUN 17 6 - 25 mg/dL [facility] Creatinine 0.99 0.80 - 1.30 mg/dL [facility] Glucose 79 70 - 199 mg/dL [facility] Comment: Interpretive Data Fasting glucose [...] 2022. Calcium 8.1(L) 8.5 - 10.3 mg/dL [facility] Bilirubin, total 0.5 0.1 - 1.2 mg/dL [facility] Protein, pl 5.6(L) 6.5 - 8.5 g/dL [facility] Albumin 3.0(L) 3.5 - 5.0 g/dL [facility] Alk phos 67 40 - 130 Units/L [facility] ALT 19 7 - 55 Units/L [facility] AST 31 10 - 50 Units/L [facility] Blood 04/03/2024 11:0 6 AM SUPERINTENDENT MEASUREMENT 04/03/2024 11:23 AM SUPERINTENDENT MEASUREMENT Krishna Salcedo MD LAB BLOOD ORDERABLES Final R esult [facility] [address] Department [place] [address] * X-ray chest 1 view (Portable) (04/03/2024 10:23 AM SUPERINTENDENT MEASUREMENT) Anatomical Region Laterality Modality Body, Chest N/A Computed Radiogr aphy 04/03/2024 10:3 4 AM SUPERINTENDENT MEASUREMENT Impressions 04/03/2024 10:34 AM SUPERINTENDENT MEASUREMENT Persistent left pleural effusion and basilar atelectasis with improving aeration of the right lung. Electronically signed by: Isiah David M.D. Narrative 04/03/2024 10:34 AM SUPERINTENDENT MEASUREMENT EXAMINATION: XR CHEST 1 VIEW HISTORY: Pneumonia [...] Portable - in AM (03/27/2024 6:38 AM SUPERINTENDENT MEASUREMENT) Anatomical Region Laterality Modality Body, Chest N/A Computed Radiogr aphy 03/27/2024 7:33 AM SUPERINTENDENT MEASUREMENT Impressions 03/27/2024 7:33 AM SUPERINTENDENT MEASUREMENT Bibasilar atelectasis with persistent left pleural effusion. Electronically signed by: Basil Youssef M.D. Narrative 03/27/2024 7:33 AM SUPERINTENDENT MEASUREMENT EXAMINATION: XR CHEST 1 VIEW HISTORY: Pleural [...] Final Result * eGFR (03/27/2024 12:27 AM SUPERINTENDENT MEASUREMENT) eGFR 74 >=60 mL/min/1. 73 m2 Comment: [...] reviewed 2021. Blood 03/27/2024 12:2 7 AM SUPERINTENDENT MEASUREMENT 03/27/2024 1:07 AM SUPERINTENDENT MEASUREMENT us Ale Mcknight ROLL TUBE SETTER LAB BLOOD ORDERABLES Fin al Result [facility] [address] Department [place] [address] * (ABNORMAL) CBC without differential (03/27/2024 12:27 AM SUPERINTENDENT MEASUREMENT) WBC 8.8 3.8 - 9.9 K/cumm Hgb 9.5(L) 13.0 - 17.5 g/dL [facility] Hct 29.3(L) 38.9 - 50.3 % [facility] Plt 138(L) 150 - 400 K/cumm [facility] MPV 9.7 9.1 - 12.3 fL [facility] RBC 3.18(L) 4.30 - 5.80 M/cumm [facility] MCV 92.1 81.3 - 96.4 fL [facility] MCH 29.9 27.1 - 33.3 pg [facility] MCHC 32.4 32.3 - 35.7 g/dL [facility] RDW CV 12.9 11.1 - 14.9 % [facility] RDW SD 43.4 35.7 - 48.1 fL [facility] NRBC abs 0.00 0.00 - 0.01 K/cumm [facility] Blood 03/27/2024 12:2 7 AM SUPERINTENDENT MEASUREMENT 03/27/2024 1:07 AM SUPERINTENDENT MEASUREMENT Ale Mcknight ROLL TUBE SETTER LAB BLOOD ORDERABLES Fin al Result Performing Organization Address [facility]/ZIP Co de Phone Number [facility] [address] Department [place] [address] * Magnesium (03/27/2024 12:27 AM SUPERINTENDENT MEASUREMENT) [facility] Magnesium 2.1 1.4 - 2.5 mg/dL Blood 03/27/2024 12:2 7 AM SUPERINTENDENT MEASUREMENT 03/27/2024 1:07 AM SUPERINTENDENT MEASUREMENT Ale Rangeljessica Mcknight ROLL TUBE SETTER LAB BLOOD ORDERABLES Fin al Result Performing Organization Address [facility] de Phone Number [facility] [address] [facility] [place] [address] * (ABNORMAL) Renal function panel (03/27/2024 12:27 AM SUPERINTENDENT MEASUREMENT) [facility] Sodium 134(L) 135 - 145 mmol/L Potassium, pl 4.3 3.3 - 4.9 mmol/L [facility] Chloride 101 97 - 110 mmol/L [facility] CO2 24 22 - 32 mmol/L [facility] Anion gap 9 2 - 15 mmol/L [facility] BUN 16 6 - 25 mg/dL [facility] Creatinine 1.00 0.80 - 1.30 mg/dL [facility] Glucose 112 70 - 199 mg/dL [facility] Comment: Interpretive Data Fasting glucose [...] 2022. Calcium 8.4(L) 8.5 - 10.3 mg/dL [facility] Phosphorus, pl 4.0 2.3 - 4.5 mg/dL [facility] Albumin 3.1(L) 3.5 - 5.0 g/dL [facility] Blood 03/27/2024 12:2 7 AM SUPERINTENDENT MEASUREMENT 03/27/2024 1:07 AM SUPERINTENDENT MEASUREMENT us Ale Mcknight ROLL TUBE SETTER LAB BLOOD ORDERABLES Fin al Result [facility] [address] Department [place] [address] * (ABNORMAL) Urinalysis reflex to microscopic and culture Urine (03/26/2024 11:53 AM SUPERINTENDENT MEASUREMENT) Color, ur Yellow Yellow Clarity, ur Clear Clear [facility] Specific gravity, ur 1.031(H) 1.003 - 1.030 [facility] pH, urine 6.0 [facility] Comment: Interpretive Data U rine pH is affected by diet, medications, systemic acid-base disturbances, and renal tubular function. pH may affect urinary stone formation. For example, urine pH below 6.0 may help reduce the tendency for calcium phosphate stones and pH greater than 6.0 may reduce the tendency for uric acid stone formation. Source: [facility] Laboratories Current Interpretive Data was last revised on 2017 Protein, ur ql 1+(A) Negative [facility] Glucose, ur ql Negative Negative [facility] Ketones, ur Negative Negative [facility] Bilirubin, ur Negative Negative [facility] Blood, ur Negative Negative [facility] Urobilinogen, ur 2.0(A) <2.0 mg/dL [facility] Nitrite, ur Negative Negative [facility] Leukocyte esterase, ur 2+(A) Negative [facility] UA reflex comment Reflex to microscopic UA will be performed. [facility] Urine 03/26/2024 11:5 3 AM SUPERINTENDENT MEASUREMENT 03/26/2024 11:53 AM SUPERINTENDENT MEASUREMENT us Benny SOLIS LAB MICROBIOLOGY - GENERAL O RDERABLES Final Result Performing Organization Address [facility] Co de Phone Number [facility] [address] Department [place] [address] * (ABNORMAL) Urinalysis, microscopic only (03/26/2024 11:53 AM SUPERINTENDENT MEASUREMENT) WBC, ur 6-10(A) 0 - 5 /HPF RBC, ur 3-5(A) 0 - 2 /HPF [facility] Epithelial cells, squamous, ur 1-5 0 - 5 /HPF [facility] Mucous, ur Present(A) [facility] Culture Reflex Comment Reflex conditions for urine culture (WBC >10) not met. [facility] Urine 03/26/2024 11:5 3 AM SUPERINTENDENT MEASUREMENT 03/26/2024 12:04 PM SUPERINTENDENT MEASUREMENT us Benny SOLIS LAB URINE ORDERABLES Final R esult Performing Organization Address [facility] Co de Phone Number [facility] [address] Department [place] [address] * XR Chest 1 View - Portable - in AM (03/26/2024 6:06 AM SUPERINTENDENT MEASUREMENT) Anatomical Region Laterality Modality Body, Chest N/A Computed Radiogr aphy 03/26/2024 7:40 AM SUPERINTENDENT MEASUREMENT Impressions 03/26/2024 7:40 AM SUPERINTENDENT MEASUREMENT Comparison 03/25/2024 5:47 AM. Median sternotomy wires are intact. Right internal jugular central venous catheter tip at superior cavoatrial junction. Cardiomediastinal silhouette stable. Aortic valve replacement again noted. Moderate left and mild right bibasilar atelectasis and small left pleural effusion again noted. No pulmonary edema seen. No pneumothorax seen. Electronically signed by: Dion Pinto M.D. Narrative 03/26/2024 7:40 AM SUPERINTENDENT MEASUREMENT EXAMINATION: Chest 1 view Procedure Note Dion [...] signed by: Dion Pinto M.D. Ale Mcknight ROLL TUBE SETTER IMG XR PROCEDURES Final Result * eGFR (03/26/2024 12:27 AM SUPERINTENDENT MEASUREMENT) eGFR 65 >=60 mL/min/1. 73 m2 Comment: [...] reviewed 2021. Blood 03/26/2024 12:2 7 AM SUPERINTENDENT MEASUREMENT 03/26/2024 12:50 AM SUPERINTENDENT MEASUREMENT Ale Mcknight NP LAB BLOOD ORDERABLES Fin al Result [facility] [address] Department [place] [address] * (ABNORMAL) CBC without differential (03/26/2024 12:27 AM SUPERINTENDENT MEASUREMENT) Pathologist [facility] WBC 10.0(H) 3.8 - 9.9 K/cumm Hgb 9.8(L) 13.0 - 17.5 g/dL [facility] Hct 29.2(L) 38.9 - 50.3 % [facility] Plt 162 150 - 400 K/cumm [facility] MPV 9.1 9.1 - 12.3 fL [facility] RBC 3.22(L) 4.30 - 5.80 M/cumm [facility] MCV 90.7 81.3 - 96.4 fL [facility] MCH 30.4 27.1 - 33.3 pg [facility] MCHC 33.6 32.3 - 35.7 g/dL [facility] RDW CV 12.9 11.1 - 14.9 % [facility] RDW SD 42.5 35.7 - 48.1 fL [facility] NRBC abs 0.00 0.00 - 0.01 K/cumm [facility] Blood 03/26/2024 12:2 7 AM SUPERINTENDENT MEASUREMENT 03/26/2024 12:50 AM SUPERINTENDENT MEASUREMENT Ale Mcknight ROLL TUBE SETTER LAB BLOOD ORDERABLES Fin al Result Performing Organization Address City/[facility]/ZIP Co de Phone Number [facility] [address] [facility] [place] [employer] [address] * Magnesium (03/26/2024 12:27 AM SUPERINTENDENT MEASUREMENT) Pathologist [facility] Magnesium 2.0 1.4 - 2.5 mg/dL Blood 03/26/2024 12:2 7 AM SUPERINTENDENT MEASUREMENT 03/26/2024 12:50 AM SUPERINTENDENT MEASUREMENT Ale Mcknight ROLL TUBE SETTER LAB BLOOD ORDERABLES Fin al Result Performing Organization Address City/[facility]/ZIP Co de Phone Number [facility] [address] Department [place] [address] * (ABNORMAL) Renal function panel (03/26/2024 12:27 AM SUPERINTENDENT MEASUREMENT) Pathologist [facility] Sodium 135 135 - 145 mmol/L Potassium, pl 4.2 3.3 - 4.9 mmol/L [facility] Chloride 100 97 - 110 mmol/L [facility] CO2 23 22 - 32 mmol/L [facility] Anion gap 12 2 - 15 mmol/L [facility] BUN 16 6 - 25 mg/dL [facility] Creatinine 1.12 0.80 - 1.30 mg/dL [facility] Glucose 100 70 - 199 mg/dL [facility] Comment: Interpretive Data Fasting glucose [...] 2022. Calcium 8.3(L) 8.5 - 10.3 mg/dL [facility] Phosphorus, pl 3.8 2.3 - 4.5 mg/dL [facility] Albumin 3.3(L) 3.5 - 5.0 g/dL [facility] Blood 03/26/2024 12:2 7 AM SUPERINTENDENT MEASUREMENT 03/26/2024 12:50 AM SUPERINTENDENT MEASUREMENT Ale Mcknight NP LAB BLOOD ORDERABLES Fin al Result [facility] [address] Department [place] [address] * XR Chest 1 View - Portable - in AM (03/25/2024 5:49 AM SUPERINTENDENT MEASUREMENT) Anatomical Region Laterality Modality Body, Chest N/A Computed Radiogr aphy 03/25/2024 8:22 AM SUPERINTENDENT MEASUREMENT Impressions 03/25/2024 8:22 AM SUPERINTENDENT MEASUREMENT Comparison is made to chest radiograph dated [...] Farzana Guzman M.D. Narrative 03/25/2024 8:22 AM SUPERINTENDENT MEASUREMENT EXAMINATION: 1 view chest radiograph Procedure Note [...] signed by: Farzana Guzman M.D. Ale Mcknight ROLL TUBE SETTER IMG XR PROCEDURES Final Result * eGFR (03/25/2024 1:33 AM SUPERINTENDENT MEASUREMENT) eGFR 76 >=60 mL/min/1. 73 m2 Comment: [...] last reviewed 2021. Blood 03/25/2024 1:33 AM SUPERINTENDENT MEASUREMENT 03/25/2024 1:55 AM SUPERINTENDENT MEASUREMENT Ale Mcknight ROLL TUBE SETTER LAB BLOOD ORDERABLES Fin al Result Performing Organization Address [facility] Co de Phone Number [facility] [address] [place] [address] * (ABNORMAL) CBC without differential (03/25/2024 1:33 AM SUPERINTENDENT MEASUREMENT) Pathologist [facility] WBC 9.0 3.8 - 9.9 K/cumm Hgb 9.3(L) 13.0 - 17.5 g/dL [facility] Hct 28.0(L) 38.9 - 50.3 % [facility] Plt 131(L) 150 - 400 K/cumm [facility] MPV 9.8 9.1 - 12.3 fL [facility] RBC 3.08(L) 4.30 - 5.80 M/cumm [facility] MCV 90.9 81.3 - 96.4 fL [facility] MCH 30.2 27.1 - 33.3 pg [facility] MCHC 33.2 32.3 - 35.7 g/dL [facility] RDW CV 12.9 11.1 - 14.9 % [facility] RDW SD 42.4 35.7 - 48.1 fL [facility] NRBC abs 0.00 0.00 - 0.01 K/cumm [facility] Blood 03/25/2024 1:33 AM SUPERINTENDENT MEASUREMENT 03/25/2024 1:55 AM SUPERINTENDENT MEASUREMENT Ale Mcknight ROLL TUBE SETTER LAB BLOOD ORDERABLES Fin al Result Performing Organization Address [facility]/ZIP Co de Phone Number [facility] [address] Department [employer] [place], [place] [id number] * Type and screen (03/25/2024 1:33 AM SUPERINTENDENT MEASUREMENT) Pathologist [facility] ABO Rh O Positive Alex, indirect Negative [facility] Blood 03/25/2024 1:33 AM SUPERINTENDENT MEASUREMENT 03/25/2024 2:03 AM SUPERINTENDENT MEASUREMENT Narrative [facility] - 03/25/2024 2:34 AM SUPERINTENDENT MEASUREMENT Has the patient had Daratumumab or Isatuximab in the past 6 months?->Unknown Ale Mcknight ROLL TUBE SETTER LAB BLOOD BANK TEST ORDE WILLOW Final Result Performing Organization Address City/[facility]/ZIP Co de Phone Number [facility] [address] Department [place] [address] * Magnesium (03/25/2024 1:33 AM SUPERINTENDENT MEASUREMENT) [facility] Magnesium 2.0 1.4 - 2.5 mg/dL Blood 03/25/2024 1:33 AM SUPERINTENDENT MEASUREMENT 03/25/2024 1:55 AM SUPERINTENDENT MEASUREMENT Ale Mcknight ROLL TUBE SETTER LAB BLOOD ORDERABLES Fin al Result Performing Organization Address [facility] Co de Phone Number [facility] [address] Department [place] [address] * (ABNORMAL) Renal function panel (03/25/2024 1:33 AM SUPERINTENDENT MEASUREMENT) Pathologist [facility] Sodium 132(L) 135 - 145 mmol/L Potassium, pl 4.6 3.3 - 4.9 mmol/L [facility] Chloride 99 97 - 110 mmol/L [facility] CO2 22 22 - 32 mmol/L [facility] Anion gap 11 2 - 15 mmol/L [facility] BUN 16 6 - 25 mg/dL [facility] Creatinine 0.98 0.80 - 1.30 mg/dL [facility] Glucose 104 70 - 199 mg/dL [facility] Comment: Interpretive Data Fasting glucose [...] 2022. Calcium 8.0(L) 8.5 - 10.3 mg/dL [facility] Phosphorus, pl 2.8 2.3 - 4.5 mg/dL [facility] Albumin 2.8(L) 3.5 - 5.0 g/dL [facility] Blood 03/25/2024 1:33 AM SUPERINTENDENT MEASUREMENT 03/25/2024 1:55 AM SUPERINTENDENT MEASUREMENT us Ale Mcknight NP LAB BLOOD ORDERABLES Fin al Result [facility] [address] Department [place] [address] * XR Chest 1 View - Portable - in AM (03/24/2024 8:05 AM SUPERINTENDENT MEASUREMENT) Anatomical Region Laterality Modality Body, Chest N/A Computed Radiogr aphy 03/24/2024 8:15 AM SUPERINTENDENT MEASUREMENT Impressions 03/24/2024 8:15 AM SUPERINTENDENT MEASUREMENT Single view chest exam is compared to [...] Williams Murillo M.D. Narrative 03/24/2024 8:15 AM SUPERINTENDENT MEASUREMENT EXAMINATION: XR CHEST 1 VIEW History: Pleural [...] Final Result * eGFR (03/24/2024 2:16 AM SUPERINTENDENT MEASUREMENT) eGFR 73 >=60 mL/min/1. 73 m2 Comment: [...] last reviewed 2021. Blood 03/24/2024 2:16 AM SUPERINTENDENT MEASUREMENT 03/24/2024 2:21 AM SUPERINTENDENT MEASUREMENT Ale Mcknight NP LAB BLOOD ORDERABLES Fin al Result [facility] [address] Department of Laboratories [place], [place] [id number] * (ABNORMAL) CBC without differential (03/24/2024 2:16 AM SUPERINTENDENT MEASUREMENT) [facility] WBC 7.5 3.8 - 9.9 K/cumm Hgb 9.6(L) 13.0 - 17.5 g/dL [facility] Hct 28.7(L) 38.9 - 50.3 % [facility] Plt 143(L) 150 - 400 K/cumm [facility] MPV 9.5 9.1 - 12.3 fL [facility] RBC 3.19(L) 4.30 - 5.80 M/cumm [facility] MCV 90.0 81.3 - 96.4 fL [facility] MCH 30.1 27.1 - 33.3 pg [facility] MCHC 33.4 32.3 - 35.7 g/dL [facility] RDW CV 12.7 11.1 - 14.9 % [facility] RDW SD 41.8 35.7 - 48.1 fL [facility] NRBC abs 0.00 0.00 - 0.01 K/cumm [facility] Blood 03/24/2024 2:16 AM SUPERINTENDENT MEASUREMENT 03/24/2024 2:21 AM SUPERINTENDENT MEASUREMENT Ale Mcknight ROLL TUBE SETTER LAB BLOOD ORDERABLES Fin al Result Performing Organization Address [facility] Co de Phone Number [facility] [address] [facility] [place] [address] * Magnesium (03/24/2024 2:16 AM SUPERINTENDENT MEASUREMENT) [facility] Magnesium 2.2 1.4 - 2.5 mg/dL Blood 03/24/2024 2:16 AM SUPERINTENDENT MEASUREMENT 03/24/2024 2:21 AM SUPERINTENDENT MEASUREMENT Ale Mcknight ROLL TUBE SETTER LAB BLOOD ORDERABLES Fin al Result Performing Organization Address [facility] Co de Phone Number [facility] [address] Department [place] [employer] [place] [address] * (ABNORMAL) Renal function panel (03/24/2024 2:16 AM SUPERINTENDENT MEASUREMENT) Sodium 134(L) 135 - 145 mmol/L Potassium, pl 4.2 3.3 - 4.9 mmol/L [facility] Chloride 103 97 - 110 mmol/L [facility] CO2 22 22 - 32 mmol/L [facility] Anion gap 9 2 - 15 mmol/L [facility] BUN 16 6 - 25 mg/dL [facility] Creatinine 1.01 0.80 - 1.30 mg/dL [facility] Glucose 103 70 - 199 mg/dL [facility] Comment: Interpretive Data Fasting glucose [...] 2022. Calcium 8.3(L) 8.5 - 10.3 mg/dL [facility] Phosphorus, pl 2.2(L) 2.3 - 4.5 mg/dL [facility] Albumin 2.9(L) 3.5 - 5.0 g/dL [facility] Blood 03/24/2024 2:16 AM SUPERINTENDENT MEASUREMENT 03/24/2024 2:21 AM SUPERINTENDENT MEASUREMENT Ale Mcknight NP LAB BLOOD ORDERABLES Fin al Result [facility] [address] Department of Laboratories [place], [place] [id number] * XR Chest 1 View - Portable - in AM (03/23/2024 6:41 AM SUPERINTENDENT MEASUREMENT) Anatomical Region Laterality Modality Body, Chest N/A Computed Radiogr aphy 03/23/2024 8:08 AM SUPERINTENDENT MEASUREMENT Impressions 03/23/2024 8:08 AM SUPERINTENDENT MEASUREMENT 1. Obscuration of the left hemidiaphragm likely related to a pleural effusion. 2. Otherwise grossly negative postoperative chest radiograph. COMMENT: Please see above for additional findings. Electronically signed by: Mo Stahl M.D. Narrative 03/23/2024 8:08 AM SUPERINTENDENT MEASUREMENT Chest Radiograph, 1 view HISTORY: pleural effusion, [...] signed by: Mo Stahl M.D. Ale Mcknight ROLL TUBE SETTER IMG XR PROCEDURES Final Result * Critical Care (03/23/2024 6:36 AM SUPERINTENDENT MEASUREMENT) Narrative Mauri Odell MD - 03/23/2024 6:36 AM SUPERINTENDENT MEASUREMENT Ale Mcknight NP 03/23/2024 8:54 AM Critical Care Performed by: Ale Mcknight NP Authorized by: Ale Mcknight NP CRITICAL CARE: Team: [facility] CT Shift: AM Level of [...] plan with the patient's team and other medical/natural remedy consultant staff. This time was in addition to and separate from care provided by other practitioners on this day of service. I spent time reviewing and interpreting data from bedside monitors, laboratory results, and imaging and I spent time discussing the management of this critically ill patient with consultants and the medical staff Ale Mcknight NP IN CLINIC/BEDSIDE ORDERA BLES Final Result * eGFR (03/23/2024 1:16 AM SUPERINTENDENT MEASUREMENT) eGFR 77 >=60 mL/min/1. 73 m2 Comment: [...] last reviewed 2021. Blood 03/23/2024 1:16 AM SUPERINTENDENT MEASUREMENT 03/23/2024 1:35 AM SUPERINTENDENT MEASUREMENT Result [facility] Brenda Mayberry ROLL TUBE SETTER LAB BLOOD ORDERABLES Final Result Performing Organization Address [facility] Co de Phone Number [facility] [address] Department [place] [address] * (ABNORMAL) Calcium, ionized (03/23/2024 1:16 AM SUPERINTENDENT MEASUREMENT) Calcium, Ionized 4.40(L) 4.50 - 5.10 mg/dL Blood 03/23/2024 1:16 AM SUPERINTENDENT MEASUREMENT 03/23/2024 1:23 AM SUPERINTENDENT MEASUREMENT Gena Jane ROLL TUBE SETTER LAB BLOOD ORDERABLES Hamida l Result Performing Organization Address [facility] de Phone Number [facility] [address] [facility] [employer] [place], [place] [id number] * Protime-INR (03/23/2024 1:16 AM SUPERINTENDENT MEASUREMENT) PT 11.7 9.7 - 13.0 sec INR 1.08 0.90 - 1.20 [facility] Comment: Interpretive data Oral anticoagulant therapeutic ranges: Venous thromboembolism prophylaxis or treatment: 2.0-3.0 CARDIOLOGY Standard range: 2.0-3.0 High-intensity range: 2.5-3.5 Refer to indication-specific guidelines for appropriate target ranges for prosthetic heart valve replacement. Current interpretive data was last revised on 2019. Blood 03/23/2024 1:16 AM SUPERINTENDENT MEASUREMENT 03/23/2024 1:35 AM SUPERINTENDENT MEASUREMENT Gena Jane ROLL TUBE SETTER LAB BLOOD ORDERABLES Hamida l Result Performing Organization Address [facility] Co de Phone Number [facility] [address] [facility] [address] * (ABNORMAL) CBC without differential (03/23/2024 1:16 AM SUPERINTENDENT MEASUREMENT) WBC 8.3 3.8 - 9.9 K/cumm Hgb 10.2(L) 13.0 - 17.5 g/dL [facility] Hct 31.4(L) 38.9 - 50.3 % [facility] Plt 130(L) 150 - 400 K/cumm [facility] MPV 9.6 9.1 - 12.3 fL [facility] RBC 3.42(L) 4.30 - 5.80 M/cumm [facility] MCV 91.8 81.3 - 96.4 fL [facility] MCH 29.8 27.1 - 33.3 pg [facility] MCHC 32.5 32.3 - 35.7 g/dL [facility] RDW CV 12.9 11.1 - 14.9 % [facility] RDW SD 43.1 35.7 - 48.1 fL [facility] NRBC abs 0.00 0.00 - 0.01 K/cumm [facility] Blood 03/23/2024 1:16 AM SUPERINTENDENT MEASUREMENT 03/23/2024 1:36 AM SUPERINTENDENT MEASUREMENT Ale Mcknight ROLL TUBE SETTER LAB BLOOD ORDERABLES Fin al Result Performing Organization Address [facility] Co de Phone Number [facility] [address] [place], [place] [id number] * Magnesium (03/23/2024 1:16 AM SUPERINTENDENT MEASUREMENT) Pathologist [facility] Magnesium 2.2 1.4 - 2.5 mg/dL Comment:Reviewed Blood 03/23/2024 1:16 AM SUPERINTENDENT MEASUREMENT 03/23/2024 1:35 AM SUPERINTENDENT MEASUREMENT Ale Mcknight ROLL TUBE SETTER LAB BLOOD ORDERABLES Fin al Result [facility] [address] [facility] [place] [address] * (ABNORMAL) Renal function panel (03/23/2024 1:16 AM SUPERINTENDENT MEASUREMENT) Sodium 134(L) 135 - 145 mmol/L Potassium, pl 4.5 3.3 - 4.9 mmol/L [facility] Chloride 100 97 - 110 mmol/L [facility] CO2 21(L) 22 - 32 mmol/L [facility] Anion gap 13 2 - 15 mmol/L [facility] BUN 13 6 - 25 mg/dL [facility] Creatinine 0.97 0.80 - 1.30 mg/dL [facility] Glucose 79 70 - 199 mg/dL [facility] Comment: Interpretive Data Fasting glucose [...] 2022. Calcium 8.2(L) 8.5 - 10.3 mg/dL [facility] Phosphorus, pl 3.3 2.3 - 4.5 mg/dL [facility] Albumin 2.9(L) 3.5 - 5.0 g/dL [facility] Blood 03/23/2024 1:16 AM SUPERINTENDENT MEASUREMENT 03/23/2024 1:35 AM SUPERINTENDENT MEASUREMENT Ale Mcknight NP LAB BLOOD ORDERABLES Fin al Result [facility] [address] Department [place] [address] * Critical Care (03/22/2024 8:16 PM SUPERINTENDENT MEASUREMENT) Narrative Mauri Odell MD - 03/22/2024 8:16 PM SUPERINTENDENT MEASUREMENT Gena Jane NP 03/23/2024 4:04 AM Critical Care Performed by: Gena Jane NP Authorized by: Gean Jane NP CRITICAL CARE: Team: [facility] CT Shift: PM Level of [...] plan with the patient's team and other medical/natural remedy consultant staff. This time was in addition [...] laboratory results, and imaging us Gena Jane ROLL TUBE SETTER IN CLINIC/BEDSIDE ORDERAB LES Final Result * POCT glucose (03/22/2024 6:38 PM SUPERINTENDENT MEASUREMENT) [facility] Glucose, POC 96 70 - 199 mg/dL Comment: For Glucose values <35 mg/dl when Hematocrit is >60 mg/dl,the test may not accurately detect significant hypoglycemia,and testing in the Laboratory should be considered if clinically indicated. Blood 03/22/2024 6:38 PM SUPERINTENDENT MEASUREMENT 03/22/2024 6:38 PM SUPERINTENDENT MEASUREMENT us Basil Adhikari MD LAB POCT ORDERABLES - DE VICE Final Result [facility] [address] Department [place] [address] * eGFR (03/22/2024 6:30 PM SUPERINTENDENT MEASUREMENT) [facility] eGFR 76 >=60 mL/min/1. 73 m2 Comment: [...] last reviewed 2021. Blood 03/22/2024 6:30 PM SUPERINTENDENT MEASUREMENT 03/22/2024 6:42 PM SUPERINTENDENT MEASUREMENT Sara Bardalesey ROLL TUBE SETTER LAB BLOOD ORDERABLES Final Result Performing Organization Address [facility] de Phone Number [facility] [address] [place] [address] * (ABNORMAL) Calcium, ionized (03/22/2024 6:30 PM SUPERINTENDENT MEASUREMENT) Calcium, Ionized 4.40(L) 4.50 - 5.10 mg/dL Blood 03/22/2024 6:30 PM SUPERINTENDENT MEASUREMENT 03/22/2024 6:42 PM SUPERINTENDENT MEASUREMENT Sara Bardalesey ROLL TUBE SETTER LAB BLOOD ORDERABLES Final Result Performing Organization Address [facility] de Phone Number [facility] [address] [place] [address] * aPTT (03/22/2024 6:30 PM SUPERINTENDENT MEASUREMENT) aPTT 30 28 - 38 sec Comment: Interpretive Data Heparin therapeutic range: 66.0 - 100.0 seconds. Range based on correlation with therapeutic heparin activity range of 0.3 - 0.7 Units/mL. Current interpretive data was last revised on 2022. Blood 03/22/2024 6:30 PM SUPERINTENDENT MEASUREMENT 03/22/2024 6:42 PM SUPERINTENDENT MEASUREMENT Sara Bardalesey ROLL TUBE SETTER LAB BLOOD ORDERABLES Final Result Performing Organization Address [facility] de Phone Number [facility] [address] Department [place] [address] * Protime-INR (03/22/2024 6:30 PM SUPERINTENDENT MEASUREMENT) [facility] PT 12.8 9.7 - 13.0 sec INR 1.18 0.90 - 1.20 [facility] Comment: Interpretive data Oral anticoagulant therapeutic ranges: Venous thromboembolism prophylaxis or treatment: 2.0-3.0 CARDIOLOGY Standard range: 2.0-3.0 High-intensity range: 2.5-3.5 Refer to indication-specific guidelines for appropriate target ranges for prosthetic heart valve replacement. Current interpretive data was last revised on 2019. Blood 03/22/2024 6:30 PM SUPERINTENDENT MEASUREMENT 03/22/2024 6:42 PM SUPERINTENDENT MEASUREMENT Sara Edwards ROLL TUBE SETTER LAB BLOOD ORDERABLES Final Result [facility] [address] Department [place] [address] * (ABNORMAL) CBC without differential (03/22/2024 6:30 PM SUPERINTENDENT MEASUREMENT) [facility] WBC 9.6 3.8 - 9.9 K/cumm Hgb 9.9(L) 13.0 - 17.5 g/dL [facility] Hct 29.4(L) 38.9 - 50.3 % [facility] Plt 107(L) 150 - 400 K/cumm [facility] MPV 9.5 9.1 - 12.3 fL [facility] RBC 3.23(L) 4.30 - 5.80 M/cumm [facility] MCV 91.0 81.3 - 96.4 fL [facility] MCH 30.7 27.1 - 33.3 pg [facility] MCHC 33.7 32.3 - 35.7 g/dL [facility] RDW CV 12.7 11.1 - 14.9 % [facility] RDW SD 42.5 35.7 - 48.1 fL [facility] NRBC abs 0.00 0.00 - 0.01 K/cumm [facility] Blood 03/22/2024 6:30 PM SUPERINTENDENT MEASUREMENT 03/22/2024 6:42 PM SUPERINTENDENT MEASUREMENT Sara Bardalesey ROLL TUBE SETTER LAB BLOOD ORDERABLES Final Result Performing Organization Address [facility] Co de Phone Number [facility] [address] [facility] [address] * Magnesium (03/22/2024 6:30 PM SUPERINTENDENT MEASUREMENT) [facility] Magnesium 1.7 1.4 - 2.5 mg/dL Blood 03/22/2024 6:30 PM SUPERINTENDENT MEASUREMENT 03/22/2024 6:42 PM SUPERINTENDENT MEASUREMENT [facility] LAB BLOOD ORDERABLES Final Result Performing Organization Address [facility] de Phone Number [facility] [address] [facility] [place] [address] * (ABNORMAL) Renal function panel (03/22/2024 6:30 PM SUPERINTENDENT MEASUREMENT) Pathologist [facility] Sodium 133(L) 135 - 145 mmol/L Potassium, pl 4.1 3.3 - 4.9 mmol/L [facility] Chloride 101 97 - 110 mmol/L [facility] CO2 20(L) 22 - 32 mmol/L [facility] Anion gap 12 2 - 15 mmol/L [facility] BUN 15 6 - 25 mg/dL [facility] Creatinine 0.98 0.80 - 1.30 mg/dL [facility] Glucose 89 70 - 199 mg/dL [facility] Comment: Interpretive Data Fasting glucose [...] 2022. Calcium 7.5(L) 8.5 - 10.3 mg/dL [facility] Phosphorus, pl 3.0 2.3 - 4.5 mg/dL [facility] Albumin 2.8(L) 3.5 - 5.0 g/dL [facility] Blood 03/22/2024 6:30 PM SUPERINTENDENT MEASUREMENT 03/22/2024 6:42 PM SUPERINTENDENT MEASUREMENT us Sara Edwards NP LAB BLOOD ORDERABLES Final Result [facility] [address] Department [place] [address] * Critical Care (03/22/2024 5:43 PM SUPERINTENDENT MEASUREMENT) Narrative Mauri Odell MD - 03/22/2024 5:43 PM SUPERINTENDENT MEASUREMENT Sara Edwards NP 03/22/2024 5:52 PM Critical Care Performed by: Sara Edwards NP Authorized by: Sara Edwards NP CRITICAL CARE: Team: [facility] CT Shift: AM Level of [...] plan with the ICU team and other medical/natural remedy consultant staff, making frequent assessments and decisions [...] Final Result * REVAS ENDOVASILIAC W STNT [id number] (03/22/2024 4:52 PM SUPERINTENDENT MEASUREMENT) Anatomical Region Laterality Modality X-Ray Angiograph y Narrative 03/22/2024 4:54 PM SUPERINTENDENT MEASUREMENT Please see OpNote for result. Basil Adhikari MD CV CARDIAC CATH PROCEDUR ES Final Result * (ABNORMAL) POC Activated Clotting Time, High Range (03/22/2024 4:51 PM SUPERINTENDENT MEASUREMENT) Pathologist [facility] ACT 139(H) 87 - 138 sec Blood 03/22/2024 4:51 PM SUPERINTENDENT MEASUREMENT 03/22/2024 4:51 PM SUPERINTENDENT MEASUREMENT Basil Adhikari MD LAB BLOOD ORDERABLES Fin al Result [facility] [address] Department [place] [address] * (ABNORMAL) POC Blood Gas and Chemistries, Venous - (03/22/2024 4:29 PM SUPERINTENDENT MEASUREMENT) Pathologist [facility] pH, Boyd POC 7.31(L) 7.32 - 7.45 pCO2, boyd POC 48 40 - 50 mmHg [facility] pO2, boyd POC 64(H) 35 - 42 mmHg [facility] Na, POC 129(L) 135 - 145 mmol/L [facility] K POC 4.1 3.3 - 4.9 mmol/L [facility] Comment: Interpretive Data This method is not able to assess for hemolysis, which may falsely increase potassium concentrations. If further testing is needed to evaluate this result, consider in-laboratory plasma potassium. Current Interpretive Data was last revised on 2021. Cl, POC 101 97 - 110 mmol/L [facility] Ionized Ca, POC 4.62 4.50 - 5.10 mg/dL [facility] Glucose, POC 95 70 - 199 mg/dL [facility] Lactate, POC 0.7 0.0 - 2.0 mmol/L [facility] O2Hb, Boyd POC 90.2 90.0 - 95.0 % [facility] Carboxhgb fract 1.9 0.0 - 2.9 % [facility] Methemoglobin 1.3 0.0 - 1.9 % [facility] HHb, POC 6.6(H) 0.0 - 5.0 % [facility] O2 Sat, Boyd POC (Shayne) 93(H) 68 - 77 % [facility] Total CO2, boyd POC 26 22 - 32 mmol/L [facility] Base excess, boyd POC -2.2 mmol/L [facility] HCO3, Boyd POC 23 20 - 30 mmol/L [facility] Hct, POC 30.0(L) 38.9 - 50.3 % [facility] Total Hb, POC 9.9(L) 13.0 - 17.5 g/dL [facility] Blood 03/22/2024 4:29 PM SUPERINTENDENT MEASUREMENT 03/22/2024 4:29 PM SUPERINTENDENT MEASUREMENT Basil Adhikari MD LAB POCT ORDERABLES - DE VICE Final Result Performing Organization Address [facility]/ZIP Co de Phone Number [facility] [address] [facility] [employer] [place], [place] [id number] * (ABNORMAL) POC Activated Clotting Time, High Range (03/22/2024 4:10 PM SUPERINTENDENT MEASUREMENT) ACT 386(H) 87 - 138 sec Blood 03/22/2024 4:10 PM SUPERINTENDENT MEASUREMENT 03/22/2024 4:10 PM SUPERINTENDENT MEASUREMENT Basil Adhikari MD LAB BLOOD ORDERABLES Fin al Result [facility] [address] [facility] [place] [address] * (ABNORMAL) POC Activated Clotting Time, High Range (03/22/2024 4:00 PM SUPERINTENDENT MEASUREMENT) ACT 174(H) 87 - 138 sec Blood 03/22/2024 4:00 PM SUPERINTENDENT MEASUREMENT 03/22/2024 4:00 PM SUPERINTENDENT MEASUREMENT Basil Adhikari MD LAB BLOOD ORDERABLES Fin al Result Performing Organization Address [facility] Co tn Phone Number [facility] [address] [place] [address] * (ABNORMAL) POC Activated Clotting Time, High Range (03/22/2024 3:56 PM SUPERINTENDENT MEASUREMENT) ACT 145(H) 87 - 138 sec Blood 03/22/2024 3:56 PM SUPERINTENDENT MEASUREMENT 03/22/2024 3:56 PM SUPERINTENDENT MEASUREMENT Result [facility] Basil Adhikari MD LAB BLOOD ORDERABLES Fin al Result Performing Organization Address [facility] Phone Number [facility] [address] [facility] [place] [address] * (ABNORMAL) POC Activated Clotting Time, High Range (03/22/2024 3:28 PM SUPERINTENDENT MEASUREMENT) ACT 457(H) 87 - 138 sec Blood 03/22/2024 3:28 PM SUPERINTENDENT MEASUREMENT 03/22/2024 3:28 PM SUPERINTENDENT MEASUREMENT Result [facility] Basil Adhikari MD LAB BLOOD ORDERABLES Fin al Result Performing Organization Address [facility] de Phone Number [facility] [address] [place] [address] * (ABNORMAL) POCT Activated clotting time, low range (03/22/2024 3:21 PM SUPERINTENDENT MEASUREMENT) ACT >400(H) 123 - 168 sec Blood 03/22/2024 3:21 PM SUPERINTENDENT MEASUREMENT 03/22/2024 3:21 PM SUPERINTENDENT MEASUREMENT Basil Adhikari MD LAB POCT ORDERABLES - DE VICE Final Result Performing Organization Address [facility] de Phone Number [facility] [address] Department [place] [address] * DC AN ELECTIVE ENDOTRACHEAL AIRWAY, DC AN PROCEDURE PLACEHOLDER (03/22/2024 3:08 PM SUPERINTENDENT MEASUREMENT) Gamal Robbins MD PhD - 03/22/2024 3:08 PM SUPERINTENDENT MEASUREMENT Gamal Asher MD PhD 03/22/2024 3:09 PM [...] Prepare RBC: 2 Units (03/22/2024 2:42 PM SUPERINTENDENT MEASUREMENT) Product code [id number] Unit Number [id number] 8-* [facility] Product Blood Type [facility] Dispense Status RETURNED [facility] Product code [id number] [facility] Unit Number [id number] 6-K [facility] Product Blood Type [facility] Dispense Status RETURNED [facility] Blood 03/22/2024 2:42 PM SUPERINTENDENT MEASUREMENT Narrative [facility] - 03/26/2024 7:31 AM SUPERINTENDENT MEASUREMENT Are special requirements needed? (All products are leukoreduced and CMV- safe)- >No Date required:-[id number] LRRBC # of [id number] Reasons:-Intra-op transfusion} us Gamal Asher MD PhD BLOOD BANK PRODUCT ORDER AMARA Final Result [facility] [address] Department [place] [address] * XR Chest 1 View - Portable - in AM (03/22/2024 7:26 AM SUPERINTENDENT MEASUREMENT) Anatomical Region Laterality Modality Body, Chest N/A Computed Radiogr aphy 03/22/2024 8:08 AM SUPERINTENDENT MEASUREMENT Impressions 03/22/2024 8:08 AM SUPERINTENDENT MEASUREMENT Comparison is made to 03/21/2024. Right jugular [...] Ruy Hager M.D. Narrative 03/22/2024 8:08 AM SUPERINTENDENT MEASUREMENT Examination: Chest 1 view Procedure Note Ruy [...] by: Ruy Hager M.D. us Ale Mcknight ROLL TUBE SETTER IMG XR PROCEDURES Final Result * eGFR (03/22/2024 1:34 AM SUPERINTENDENT MEASUREMENT) eGFR 73 >=60 mL/min/1. 73 m2 Comment: [...] last reviewed 2021. Blood 03/22/2024 1:34 AM SUPERINTENDENT MEASUREMENT 03/22/2024 2:00 AM SUPERINTENDENT MEASUREMENT Brenda Mayberry NP LAB BLOOD ORDERABLES Final Result [facility] [address] Department [place] [address] * (ABNORMAL) CBC without differential (03/22/2024 1:34 AM SUPERINTENDENT MEASUREMENT) WBC 9.0 3.8 - 9.9 K/cumm Hgb 10.2(L) 13.0 - 17.5 g/dL [facility] Hct 30.6(L) 38.9 - 50.3 % [facility] Plt 111(L) 150 - 400 K/cumm [facility] MPV 10.1 9.1 - 12.3 fL [facility] RBC 3.41(L) 4.30 - 5.80 M/cumm [facility] MCV 89.7 81.3 - 96.4 fL [facility] MCH 29.9 27.1 - 33.3 pg [facility] MCHC 33.3 32.3 - 35.7 g/dL [facility] RDW CV 12.8 11.1 - 14.9 % [facility] RDW SD 42.0 35.7 - 48.1 fL [facility] NRBC abs 0.00 0.00 - 0.01 K/cumm [facility] Blood 03/22/2024 1:34 AM SUPERINTENDENT MEASUREMENT 03/22/2024 2:00 AM SUPERINTENDENT MEASUREMENT Ale Mcknight ROLL TUBE SETTER LAB BLOOD ORDERABLES Fin al Result Performing Organization Address [facility]/ZIP Co de Phone Number [facility] [address] Department [place] [employer] [address] * Type and screen (03/22/2024 1:34 AM SUPERINTENDENT MEASUREMENT) Alex, indirect Negative ABO Rh O Positive [facility] Blood 03/22/2024 1:34 AM SUPERINTENDENT MEASUREMENT 03/22/2024 1:56 AM SUPERINTENDENT MEASUREMENT Narrative [facility] - 03/22/2024 2:43 AM SUPERINTENDENT MEASUREMENT Has the patient had Daratumumab or Isatuximab in the past 6 months?->Unknown Ale Mcknight ROLL TUBE SETTER LAB BLOOD BANK TEST ORDE RABLES Final Result Performing Organization Address [facility] Co de Phone Number [facility] [address] Department [place] [address] * Magnesium (03/22/2024 1:34 AM SUPERINTENDENT MEASUREMENT) Pathologist [facility] Magnesium 1.9 1.4 - 2.5 mg/dL Blood 03/22/2024 1:34 AM SUPERINTENDENT MEASUREMENT 03/22/2024 2:00 AM SUPERINTENDENT MEASUREMENT Ale Mcknight ROLL TUBE SETTER LAB BLOOD ORDERABLES Fin al Result Performing Organization Address [facility]/ZIP Co de Phone Number [facility] [address] Department of [employer] [place], [place] [id number] * (ABNORMAL) Renal function panel (03/22/2024 1:34 AM SUPERINTENDENT MEASUREMENT) Sodium 130(L) 135 - 145 mmol/L Potassium, pl 4.1 3.3 - 4.9 mmol/L [facility] Chloride 96(L) 97 - 110 mmol/L [facility] CO2 21(L) 22 - 32 mmol/L [facility] Anion gap 13 2 - 15 mmol/L [facility] BUN 17 6 - 25 mg/dL [facility] Creatinine 1.01 0.80 - 1.30 mg/dL [facility] [facility] Glucose 94 70 - 199 mg/dL [facility] Comment: Interpretive Data Fasting glucose [...] 2022. Calcium 8.3(L) 8.5 - 10.3 mg/dL [facility] Phosphorus, pl 2.8 2.3 - 4.5 mg/dL [facility] Albumin 3.2(L) 3.5 - 5.0 g/dL [facility] Blood 03/22/2024 1:34 AM SUPERINTENDENT MEASUREMENT 03/22/2024 2:00 AM SUPERINTENDENT MEASUREMENT Ale Mcknight NP LAB BLOOD ORDERABLES [facility] al Result [facility] [address] Department [place] [address] * (ABNORMAL) aPTT (03/21/2024 8:12 PM SUPERINTENDENT MEASUREMENT) aPTT 43(H) 28 - 38 sec Comment: Interpretive Data Heparin therapeutic range: 66.0 - 100.0 seconds. Range based on correlation with therapeutic heparin activity range of 0.3 - 0.7 Units/mL. Current interpretive data was last revised on 2022. Blood 03/21/2024 8:12 PM SUPERINTENDENT MEASUREMENT 03/21/2024 8:17 PM SUPERINTENDENT MEASUREMENT Narrative [facility] - 03/21/2024 8:26 PM SUPERINTENDENT MEASUREMENT STAT PTT timing: - Draw 6 hours [...] SOLIS LAB BLOOD ORDERABLES Final R esult [facility] [address] Department [place] [address] * (ABNORMAL) aPTT (03/21/2024 12:40 PM SUPERINTENDENT MEASUREMENT) [facility] Signature aPTT 47(H) 28 - 38 sec Comment: Interpretive Data Heparin therapeutic range: 66.0 - 100.0 seconds. Range based on correlation with therapeutic heparin activity range of 0.3 - 0.7 Units/mL. Current interpretive data was last revised on 2022. Blood 03/21/2024 12:4 0 PM SUPERINTENDENT MEASUREMENT 03/21/2024 12:44 PM SUPERINTENDENT MEASUREMENT Narrative [facility] - 03/21/2024 1:11 PM SUPERINTENDENT MEASUREMENT STAT PTT timing: - Draw 6 hours [...] ORDERABLES Final R esult Performing Organization Address [facility] Co de Phone Number [facility] [address] Department [place] [address] * aPTT (03/21/2024 10:35 AM SUPERINTENDENT MEASUREMENT) aPTT 37 28 - 38 sec Comment: Interpretive Data Heparin therapeutic range: 66.0 - 100.0 seconds. Range based on correlation with therapeutic heparin activity range of 0.3 - 0.7 Units/mL. Current interpretive data was last revised on 2022. Blood 03/21/2024 10:3 5 AM SUPERINTENDENT MEASUREMENT 03/21/2024 10:41 AM SUPERINTENDENT MEASUREMENT Basil Adhikari MD LAB BLOOD ORDERABLES Fin al Result Performing Organization Address [facility] Co de Phone Number [facility] [address] Department [place] [address] * XR Chest 1 View - Portable - in AM (03/21/2024 7:43 AM SUPERINTENDENT MEASUREMENT) Anatomical Region Laterality Modality Body, Chest N/A Computed Radiogr aphy 03/21/2024 7:47 AM SUPERINTENDENT MEASUREMENT Impressions 03/21/2024 7:47 AM SUPERINTENDENT MEASUREMENT Right internal jugular central venous catheter terminates in the superior cavoatrial junction. Median sternotomy. Aortic valve replacement. Calcified atherosclerotic aorta. Mild cardiomegaly is unchanged. There is bibasilar subsegmental atelectasis, unchanged from the prior examination. Questionable small left pleural effusion is also unchanged. No pneumothorax. Electronically signed by: Manuel Mike M.D. Narrative 03/21/2024 7:47 AM SUPERINTENDENT MEASUREMENT PORTABLE CHEST RADIOGRAPH INDICATION: pleural effusion COMPARISON: [...] pneumothorax. Electronically signed by: Manuel Mike M.D. us Ale Mcknight ROLL TUBE SETTER IMG XR PROCEDURES Final Result * (ABNORMAL) aPTT (03/21/2024 2:27 AM SUPERINTENDENT MEASUREMENT) aPTT 60(H) 28 - 38 sec Comment: Interpretive Data Heparin therapeutic range: 66.0 - 100.0 seconds. Range based on correlation with therapeutic heparin activity range of 0.3 - 0.7 Units/mL. Current interpretive data was last revised on 2022. Blood 03/21/2024 2:27 AM SUPERINTENDENT MEASUREMENT 03/21/2024 2:52 AM SUPERINTENDENT MEASUREMENT Narrative [facility] - 03/21/2024 3:10 AM SUPERINTENDENT MEASUREMENT STAT PTT timing: - Draw 6 hours [...] SOLIS LAB BLOOD ORDERABLES Final R esult [facility] [address] Department [place] [address] * eGFR (03/21/2024 2:24 AM SUPERINTENDENT MEASUREMENT) [facility] eGFR 77 >=60 mL/min/1. 73 m2 Comment: [...] last reviewed 2021. Blood 03/21/2024 2:24 AM SUPERINTENDENT MEASUREMENT 03/21/2024 2:52 AM SUPERINTENDENT MEASUREMENT us Brenda Mayberry ROLL TUBE SETTER LAB BLOOD ORDERABLES Final Result [facility] [address] Department [place] [address] * (ABNORMAL) CBC without differential (03/21/2024 2:24 AM SUPERINTENDENT MEASUREMENT) [facility] WBC 10.9(H) 3.8 - 9.9 K/cumm Hgb 11.1(L) 13.0 - 17.5 g/dL [facility] Hct 32.9(L) 38.9 - 50.3 % [facility] Plt 97(L) 150 - 400 K/cumm [facility] MPV 10.2 9.1 - 12.3 fL [facility] RBC 3.68(L) 4.30 - 5.80 M/cumm [facility] MCV 89.4 81.3 - 96.4 fL [facility] MCH 30.2 27.1 - 33.3 pg [facility] MCHC 33.7 32.3 - 35.7 g/dL [facility] RDW CV 12.7 11.1 - 14.9 % [facility] RDW SD 41.5 35.7 - 48.1 fL [facility] NRBC abs 0.00 0.00 - 0.01 K/cumm [facility] Blood 03/21/2024 2:24 AM SUPERINTENDENT MEASUREMENT 03/21/2024 2:52 AM SUPERINTENDENT MEASUREMENT Ale Mcknight ROLL TUBE SETTER LAB BLOOD ORDERABLES Fin al Result [facility] [address] Department [place] [address] * Magnesium (03/21/2024 2:24 AM SUPERINTENDENT MEASUREMENT) [facility] Magnesium 1.8 1.4 - 2.5 mg/dL Blood 03/21/2024 2:24 AM SUPERINTENDENT MEASUREMENT 03/21/2024 2:52 AM SUPERINTENDENT MEASUREMENT Ale Mcknight ROLL TUBE SETTER LAB BLOOD ORDERABLES Fin al Result Performing Organization Address City/[facility]/ZIP Co de Phone Number [facility] [address] Department [place] [address] * (ABNORMAL) Renal function panel (03/21/2024 2:24 AM SUPERINTENDENT MEASUREMENT) Pathologist [facility] Sodium 128(L) 135 - 145 mmol/L Potassium, pl 4.0 3.3 - 4.9 mmol/L [facility] Chloride 96(L) 97 - 110 mmol/L [facility] CO2 21(L) 22 - 32 mmol/L [facility] Anion gap 11 2 - 15 mmol/L [facility] BUN 18 6 - 25 mg/dL [facility] Creatinine 0.97 0.80 - 1.30 mg/dL [facility] Glucose 108 70 - 199 mg/dL [facility] Comment: Interpretive Data Fasting glucose [...] 2022. Calcium 8.4(L) 8.5 - 10.3 mg/dL [facility] Phosphorus, pl 1.8(L) 2.3 - 4.5 mg/dL [facility] Albumin 3.4(L) 3.5 - 5.0 g/dL [facility] Blood 03/21/2024 2:24 AM SUPERINTENDENT MEASUREMENT 03/21/2024 2:52 AM SUPERINTENDENT MEASUREMENT Ale Mcknight NP LAB BLOOD ORDERABLES Fin al Result [facility] [address] Department [place] [address] * (ABNORMAL) aPTT (03/20/2024 4:57 PM SUPERINTENDENT MEASUREMENT) aPTT 48(H) 28 - 38 sec Comment: Interpretive Data Heparin therapeutic range: 66.0 - 100.0 seconds. Range based on correlation with therapeutic heparin activity range of 0.3 - 0.7 Units/mL. Current interpretive data was last revised on 2022. Blood 03/20/2024 4:57 PM SUPERINTENDENT MEASUREMENT 03/20/2024 5:16 PM SUPERINTENDENT MEASUREMENT Narrative [facility] - 03/20/2024 5:33 PM SUPERINTENDENT MEASUREMENT STAT PTT timing: - Draw 6 hours [...] Benny SOLIS LAB BLOOD ORDERABLES Final R [facility] Performing Organization Address [facility] Co de Phone Number [facility] [address] [facility] [place] [address] * aPTT (03/20/2024 9:27 AM SUPERINTENDENT MEASUREMENT) aPTT 34 28 - 38 sec Comment: Interpretive Data Heparin therapeutic range: 66.0 - 100.0 seconds. Range based on correlation with therapeutic heparin activity range of 0.3 - 0.7 Units/mL. Current interpretive data was last revised on 2022. Blood 03/20/2024 9:27 AM SUPERINTENDENT MEASUREMENT 03/20/2024 9:41 AM SUPERINTENDENT MEASUREMENT Narrative [facility] - 03/20/2024 9:57 AM SUPERINTENDENT MEASUREMENT Baseline prior to heparin initiation Benny SOLIS LAB BLOOD ORDERABLES Final R [facility] Performing Organization Address [facility] de Phone Number [facility] [address] [facility] [place] [address] * (ABNORMAL) Protime-INR (03/20/2024 9:27 AM SUPERINTENDENT MEASUREMENT) Pathologist [facility] PT 14.9(H) 9.7 - 13.0 sec INR 1.37(H) 0.90 - 1.20 [facility] Comment: Interpretive data Oral anticoagulant therapeutic ranges: Venous thromboembolism prophylaxis or treatment: 2.0-3.0 CARDIOLOGY Standard range: 2.0-3.0 High-intensity range: 2.5-3.5 Refer to indication-specific guidelines for appropriate target ranges for prosthetic heart valve replacement. Current interpretive data was last revised on 2019. Blood 03/20/2024 9:27 AM SUPERINTENDENT MEASUREMENT 03/20/2024 9:41 AM SUPERINTENDENT MEASUREMENT Narrative [facility] - 03/20/2024 9:57 AM SUPERINTENDENT MEASUREMENT Baseline prior to heparin initiation us Benny SOLIS LAB BLOOD ORDERABLES Final R esult [facility] [address] Department [place] [address] * XR Chest 1 View - Portable - in AM (03/20/2024 9:17 AM SUPERINTENDENT MEASUREMENT) Anatomical Region Laterality Modality Body, Chest N/A Computed Radiogr aphy 03/20/2024 2:59 PM SUPERINTENDENT MEASUREMENT Impressions 03/20/2024 2:59 PM SUPERINTENDENT MEASUREMENT Comparison is made to prior examination 03/19/2024. Unchanged median sternotomy wires and aortic valve replacement. Right internal jugular central venous catheter tip overlies superior caval atrial junction. Surgical drain is in place. Stable to minimally increased bibasilar opacities favored represent atelectasis with possible small left pleural effusion. No pneumothorax. Unchanged cardiomegaly. Electronically signed by: Gian Henriquez M.D. Narrative 03/20/2024 2:59 PM SUPERINTENDENT MEASUREMENT EXAMINATION: XR CHEST 1 VIEW Procedure Note [...] by: Gian Henriquez M.D. us Ale Mcknight ROLL TUBE SETTER IMG XR PROCEDURES Final Result * eGFR (03/20/2024 1:03 AM SUPERINTENDENT MEASUREMENT) eGFR 72 >=60 mL/min/1. 73 m2 Comment: [...] last reviewed 2021. Blood 03/20/2024 1:03 AM SUPERINTENDENT MEASUREMENT 03/20/2024 1:33 AM SUPERINTENDENT MEASUREMENT Brenda Mayberry NP LAB BLOOD ORDERABLES Final Result [facility] [address] [facility] [employer] [place], [place] [id number] * Calcium, ionized (03/20/2024 1:03 AM SUPERINTENDENT MEASUREMENT) Calcium, Ionized 4.80 4.50 - 5.10 mg/dL Blood 03/20/2024 1:03 AM SUPERINTENDENT MEASUREMENT 03/20/2024 1:11 AM SUPERINTENDENT MEASUREMENT Brenda Mayberry NP LAB BLOOD ORDERABLES Final Result [facility] [address] [facility] [employer] [place], [place] [id number] * (ABNORMAL) CBC without differential (03/20/2024 1:03 AM SUPERINTENDENT MEASUREMENT) WBC 12.7(H) 3.8 - 9.9 K/cumm Hgb 12.2(L) 13.0 - 17.5 g/dL [facility] Hct 35.9(L) 38.9 - 50.3 % [facility] Plt 104(L) 150 - 400 K/cumm [facility] MPV 10.0 9.1 - 12.3 fL [facility] RBC 4.04(L) 4.30 - 5.80 M/cumm [facility] MCV 88.9 81.3 - 96.4 fL [facility] MCH 30.2 27.1 - 33.3 pg [facility] MCHC 34.0 32.3 - 35.7 g/dL [facility] RDW CV 12.8 11.1 - 14.9 % [facility] RDW SD 41.5 35.7 - 48.1 fL [facility] NRBC abs 0.00 0.00 - 0.01 K/cumm [facility] Blood 03/20/2024 1:03 AM SUPERINTENDENT MEASUREMENT 03/20/2024 1:33 AM SUPERINTENDENT MEASUREMENT Ale Mcknight ROLL TUBE SETTER LAB BLOOD ORDERABLES Fin al Result Performing Organization Address City/[facility]/ZIP Co de Phone Number [facility] [address] [facility] [employer] [place], [place] [id number] * Magnesium (03/20/2024 1:03 AM SUPERINTENDENT MEASUREMENT) [facility] Magnesium 2.0 1.4 - 2.5 mg/dL Blood 03/20/2024 1:03 AM SUPERINTENDENT MEASUREMENT 03/20/2024 1:33 AM SUPERINTENDENT MEASUREMENT Ale Mcknight ROLL TUBE SETTER LAB BLOOD ORDERABLES Fin al Result [facility] [address] [facility] [place] [address] * (ABNORMAL) Renal function panel (03/20/2024 1:03 AM SUPERINTENDENT MEASUREMENT) Sodium 132(L) 135 - 145 mmol/L Potassium, pl 4.5 3.3 - 4.9 mmol/L [facility] Chloride 99 97 - 110 mmol/L [facility] CO2 21(L) 22 - 32 mmol/L [facility] Anion gap 12 2 - 15 mmol/L [facility] BUN 17 6 - 25 mg/dL [facility] Creatinine 1.03 0.80 - 1.30 mg/dL [facility] Glucose 119 70 - 199 mg/dL [facility] Comment: Interpretive Data Fasting glucose [...] 2022. Calcium 8.8 8.5 - 10.3 mg/dL [facility] Phosphorus, pl 2.7 2.3 - 4.5 mg/dL [facility] Albumin 3.6 3.5 - 5.0 g/dL [facility] Blood 03/20/2024 1:03 AM SUPERINTENDENT MEASUREMENT 03/20/2024 1:33 AM SUPERINTENDENT MEASUREMENT Ale Mcknight NP LAB BLOOD ORDERABLES Fin al Result [facility] [address] Department [place] [address] * Prepare RBC: 2 Units (03/19/2024 4:56 PM SUPERINTENDENT MEASUREMENT) Product code [id number] [facility] Unit Number [id number] 2-F [facility] Product Blood Type OPOS [facility] Dispense Status RETURNED [facility] Product code [id number] Unit Number [id number] 3-Q [facility] Product Blood Type OPOS [facility] Dispense Status RETURNED [facility] Blood 03/19/2024 4:56 PM SUPERINTENDENT MEASUREMENT Narrative [facility] - 03/19/2024 5:48 PM SUPERINTENDENT MEASUREMENT Specify Procedure:->iliac stent Are special requirements needed? (All products are leukoreduced and CMV- safe)- >No Date required:-[id number] LRRBC # of [id number] Reasons:-Hold for procedure (specify procedure)} us Basil Adhikari MD BLOOD BANK PRODUCT ORDER AMARA Final Result [facility] [address] Department [place] [address] * CTA Abdomen Pelvis (03/19/2024 9:06 AM SUPERINTENDENT MEASUREMENT) Anatomical Region Laterality Modality Body N/A Computed Tomogra phy 03/19/2024 12:2 8 PM SUPERINTENDENT MEASUREMENT Impressions 03/19/2024 12:49 PM SUPERINTENDENT MEASUREMENT 1. Left common iliac artery aneurysm measuring [...] Josr Lindsey M.D. Narrative 03/19/2024 12:49 PM SUPERINTENDENT MEASUREMENT EXAMINATION: CT ANGIOGRAPHY OF THE ABDOMEN AND [...] by: Josr Lindsey M.D. us Brenda Mayberry ROLL TUBE SETTER IMG CT PROCEDURES Final Re sult * Potassium (03/19/2024 6:48 AM SUPERINTENDENT MEASUREMENT) [facility] Potassium, pl 4.7 3.3 - 4.9 mmol/L Blood 03/19/2024 6:48 AM SUPERINTENDENT MEASUREMENT 03/19/2024 7:04 AM SUPERINTENDENT MEASUREMENT Brenda Mayberry NP LAB BLOOD ORDERABLES Final Result [facility] [address] Department [place] [address] * Critical Care (03/19/2024 6:40 AM SUPERINTENDENT MEASUREMENT) Narrative Gian Robertson MD - 03/19/2024 6:40 AM SUPERINTENDENT MEASUREMENT Brenda Mayberry NP 03/19/2024 10:29 AM Critical Care Performed by: Brenda Mayberry NP Authorized by: Brenda Mayberry NP CRITICAL CARE: Team: [facility] CT Shift: AM Level of [...] plan with the patient's team and other medical/natural remedy consultant staff. This time was in addition to and separate from care provided by other practitioners on this day of service. us Brenda Mayberry NP IN CLINIC/BEDSIDE ORDERABL ES Final Result * XR Chest 1 View - Portable - in AM (03/19/2024 6:37 AM SUPERINTENDENT MEASUREMENT) Anatomical Region Laterality Modality Body, Chest N/A Computed Radiogr aphy 03/19/2024 7:56 AM SUPERINTENDENT MEASUREMENT Impressions 03/19/2024 7:56 AM SUPERINTENDENT MEASUREMENT Comparison is made to prior chest radiograph [...] Josselin Xavier M.D. Narrative 03/19/2024 7:56 AM SUPERINTENDENT MEASUREMENT EXAMINATION: XR CHEST 1 VIEW Procedure Note [...] by: Josselin Xavier M.D. us Ale Mcknight ROLL TUBE SETTER IMG XR PROCEDURES Final Result * POCT glucose (03/19/2024 6:01 AM SUPERINTENDENT MEASUREMENT) [facility] Signature Glucose, POC 110 70 - 199 mg/dL Comment: For Glucose values <35 mg/dl when Hematocrit is >60 mg/dl,the test may not accurately detect significant hypoglycemia,and testing in the Laboratory should be considered if clinically indicated. Blood 03/19/2024 6:01 AM SUPERINTENDENT MEASUREMENT 03/19/2024 6:01 AM SUPERINTENDENT MEASUREMENT us Basil Adhikari MD LAB POCT ORDERABLES - DE VICE Final Result [facility] [address] Department [place] [address] * POCT glucose (03/19/2024 2:13 AM SUPERINTENDENT MEASUREMENT) Glucose, POC 111 70 - 199 mg/dL Comment: For Glucose values <35 mg/dl when Hematocrit is >60 mg/dl,the test may not accurately detect significant hypoglycemia,and testing in the Laboratory should be considered if clinically indicated. Blood 03/19/2024 2:13 AM SUPERINTENDENT MEASUREMENT 03/19/2024 2:13 AM SUPERINTENDENT MEASUREMENT Basil Adhikari MD LAB POCT ORDERABLES - DE VICE Final Result Performing Organization Address [facility]/ZIP Co de Phone Number [facility] [address] [facility] [place] [address] * POCT glucose (03/19/2024 12:18 AM SUPERINTENDENT MEASUREMENT) Pathologist [facility] Glucose, POC 145 70 - 199 mg/dL Comment: For Glucose values <35 mg/dl when Hematocrit is >60 mg/dl,the test may not accurately detect significant hypoglycemia,and testing in the Laboratory should be considered if clinically indicated. Blood 03/19/2024 12:1 8 AM SUPERINTENDENT MEASUREMENT 03/19/2024 12:18 AM SUPERINTENDENT MEASUREMENT Basil Adhikari MD LAB POCT ORDERABLES - DE VICE Final Result Performing Organization Address City/[facility]/ZIP Co de Phone Number [facility] [address] [place] [address] * eGFR (03/19/2024 12:04 AM SUPERINTENDENT MEASUREMENT) eGFR 85 >=60 mL/min/1. 73 m2 Comment: [...] reviewed 2021. Blood 03/19/2024 12:0 4 AM SUPERINTENDENT MEASUREMENT 03/19/2024 12:58 AM SUPERINTENDENT MEASUREMENT Brenda Mayberry NP LAB BLOOD ORDERABLES Final Result Performing Organization Address City/[facility]/ZIP Co de Phone Number [facility] [address] Department [employer] [place], [place] [id number] * (ABNORMAL) Calcium, ionized (03/19/2024 12:04 AM SUPERINTENDENT MEASUREMENT) Pathologist [facility] Calcium, Ionized 4.47(L) 4.50 - 5.10 mg/dL Blood 03/19/2024 12:0 4 AM SUPERINTENDENT MEASUREMENT 03/19/2024 12:26 AM SUPERINTENDENT MEASUREMENT Brenda Mayberry NP LAB BLOOD ORDERABLES Final Result Performing Organization Address City/[facility]/ZIP Co de Phone Number [facility] [address] Department [place] [address] * (ABNORMAL) CBC without differential (03/19/2024 12:04 AM SUPERINTENDENT MEASUREMENT) WBC 8.7 3.8 - 9.9 K/cumm Hgb 12.5(L) 13.0 - 17.5 g/dL [facility] Hct 36.8(L) 38.9 - 50.3 % [facility] Plt 103(L) 150 - 400 K/cumm [facility] MPV 10.4 9.1 - 12.3 fL [facility] RBC 4.14(L) 4.30 - 5.80 M/cumm [facility] MCV 88.9 81.3 - 96.4 fL [facility] MCH 30.2 27.1 - 33.3 pg [facility] MCHC 34.0 32.3 - 35.7 g/dL [facility] RDW CV 12.6 11.1 - 14.9 % [facility] RDW SD 41.0 35.7 - 48.1 fL [facility] NRBC abs 0.00 0.00 - 0.01 K/cumm [facility] Blood 03/19/2024 12:0 4 AM SUPERINTENDENT MEASUREMENT 03/19/2024 12:58 AM SUPERINTENDENT MEASUREMENT Ale Mcknight ROLL TUBE SETTER LAB BLOOD ORDERABLES Fin al Result Performing Organization Address City/[facility]/ZIP Co de Phone Number [facility] [address] Department [place] [address] * Magnesium (03/19/2024 12:04 AM SUPERINTENDENT MEASUREMENT) [facility] Magnesium 2.0 1.4 - 2.5 mg/dL Blood 03/19/2024 12:0 4 AM SUPERINTENDENT MEASUREMENT 03/19/2024 12:58 AM SUPERINTENDENT MEASUREMENT Ale Mcknight ROLL TUBE SETTER LAB BLOOD ORDERABLES Fin al Result Performing Organization Address [facility] Co de Phone Number [facility] [address] Department [place] [address] * (ABNORMAL) Renal function panel (03/19/2024 12:04 AM SUPERINTENDENT MEASUREMENT) Sodium 131(L) 135 - 145 mmol/L Potassium, pl 5.1(H) 3.3 - 4.9 mmol/L [facility] Comment:Hemolyzed; potassium value may be falsely elevated by as much as 0.6 - 1.0 mmol/L. Suggest redraw and reanalysis Chloride 102 97 - 110 mmol/L [facility] CO2 18(L) 22 - 32 mmol/L [facility] Anion gap 11 2 - 15 mmol/L [facility] BUN 12 6 - 25 mg/dL [facility] Creatinine 0.88 0.80 - 1.30 mg/dL [facility] Glucose 146 70 - 199 mg/dL [facility] Comment: Interpretive Data Fasting glucose [...] 2022. Calcium 8.5 8.5 - 10.3 mg/dL [facility] Phosphorus, pl 3.7 2.3 - 4.5 mg/dL [facility] Albumin 3.7 3.5 - 5.0 g/dL [facility] Blood 03/19/2024 12:0 4 AM SUPERINTENDENT MEASUREMENT 03/19/2024 12:58 AM SUPERINTENDENT MEASUREMENT us Ale Mcknight NP LAB BLOOD ORDERABLES Fin al Result [facility] [address] Department [place] [address] * POCT glucose (03/18/2024 9:02 PM SUPERINTENDENT MEASUREMENT) [facility] Signature Glucose, POC 102 70 - 199 mg/dL Comment: For Glucose values <35 mg/dl when Hematocrit is >60 mg/dl,the test may not accurately detect significant hypoglycemia,and testing in the Laboratory should be considered if clinically indicated. Blood 03/18/2024 9:02 PM SUPERINTENDENT MEASUREMENT 03/18/2024 9:02 PM SUPERINTENDENT MEASUREMENT us Basil Adhikari MD LAB POCT ORDERABLES - DE VICE Final Result Performing Organization Address City/[facility]/ZIP Co de Phone Number [facility] [address] Department [place] [address] * (ABNORMAL) Blood gas, arterial (03/18/2024 7:23 PM SUPERINTENDENT MEASUREMENT) Pathologist [facility] pH, Art 7.45 7.35 - 7.45 PCO2, Arterial 28(L) 35 - 45 mmHg [facility] PO2, Arterial 195(H) 83 - 108 mmHg [facility] HCO3 Art (Calculated) 20 20 - 30 mmol/L [facility] [facility] BE, art -3 mmol/L [facility] Comment: Interpretive Data No Reference Range Established Current Interpretive Data was last revised on 2017 O2 Sat Art (Calculated) 100(H) 94 - 98 % [facility] Blood 03/18/2024 7:23 PM SUPERINTENDENT MEASUREMENT 03/18/2024 7:28 PM SUPERINTENDENT MEASUREMENT us Brenda Mayberry NP LAB BLOOD ORDERABLES Final Result Performing Organization Address [facility]/ZIP Co de Phone Number [facility] [address] Department [place] [employer] [place] [address] * POCT glucose (03/18/2024 7:12 PM SUPERINTENDENT MEASUREMENT) [facility] Glucose, POC 114 70 - 199 mg/dL Comment: For Glucose values <35 mg/dl when Hematocrit is >60 mg/dl,the test may not accurately detect significant hypoglycemia,and testing in the Laboratory should be considered if clinically indicated. Blood 03/18/2024 7:12 PM SUPERINTENDENT MEASUREMENT 03/18/2024 7:12 PM SUPERINTENDENT MEASUREMENT us Basil Adhikari MD LAB POCT ORDERABLES - DE VICE Final Result Performing Organization Address [facility]/State/ZIP Co de Phone Number [facility] [address] Department [place] [address] * Critical Care (03/18/2024 6:39 PM SUPERINTENDENT MEASUREMENT) Narrative Gian Robertson MD - 03/18/2024 6:39 PM SUPERINTENDENT MEASUREMENT Roderick Couch DNP 03/19/2024 5:10 AM Critical Care Performed by: Roderick Couch DNP Authorized by: Roderick Couch DNP CRITICAL CARE: Team: [facility] CT Shift: PM Level of [...] plan with the patient's team and other medical/natural remedy consultant staff. This time was in addition to and separate from care provided by other practitioners on this day of service. Roderick Couch DNP IN CLINIC/BEDSIDE OR DERABLES Final Result * POCT glucose (03/18/2024 6:07 PM SUPERINTENDENT MEASUREMENT) [facility] Signature Glucose, POC 82 70 - 199 mg/dL Comment: For Glucose values <35 mg/dl when Hematocrit is >60 mg/dl,the test may not accurately detect significant hypoglycemia,and testing in the Laboratory should be considered if clinically indicated. Blood 03/18/2024 6:07 PM SUPERINTENDENT MEASUREMENT 03/18/2024 6:07 PM SUPERINTENDENT MEASUREMENT us Basil Adhikari MD LAB POCT ORDERABLES - DE VICE Final Result [facility] [address] Department [place] [address] * XR Chest 1 View - Portable (03/18/2024 4:41 PM SUPERINTENDENT MEASUREMENT) Anatomical Region Laterality Modality Body, Chest N/A Computed Radiogr aphy 03/18/2024 6:28 PM SUPERINTENDENT MEASUREMENT Impressions 03/18/2024 6:28 PM SUPERINTENDENT MEASUREMENT FINDINGS/IMPRESSION: Postoperative changes of ascending aortic replacement is seen with sternotomy wires, and prosthetic aortic valve in place. A right IJ central venous catheter tip terminates in the superior vena cava. The right IJ Pittsburgh-Christoph catheter terminates in the main pulmonary artery. Mediastinal drains are seen. Bilateral shoulder arthroplasties are seen. Surgical clips superimposes the neck. Minimal left basilar atelectatic changes are seen. There is no focal consolidation, pleural effusion or pneumothorax. Cardiomediastinum is stable. Electronically signed by: Starla Hidalgo M.D. Narrative 03/18/2024 6:28 PM SUPERINTENDENT MEASUREMENT EXAMINATION: XR CHEST 1 VIEW HISTORY: cardiac [...] the superior vena cava. The right IJ Pittsburgh-Christoph catheter terminates in the main pulmonary artery. Mediastinal drains are seen. Bilateral shoulder arthroplasties are seen. Surgical clips superimposes the neck. Minimal left basilar atelectatic changes are seen. There is no focal consolidation, pleural effusion or pneumothorax. Cardiomediastinum is stable. Electronically signed by: Starla Hidalgo M.D. Brenda Mayberry ROLL TUBE SETTER IMG XR PROCEDURES Final Re sult * POCT glucose (03/18/2024 4:27 PM SUPERINTENDENT MEASUREMENT) Glucose, POC 121 70 - 199 mg/dL Comment: For Glucose values <35 mg/dl when Hematocrit is >60 mg/dl,the test may not accurately detect significant hypoglycemia,and testing in the Laboratory should be considered if clinically indicated. Blood 03/18/2024 4:27 PM SUPERINTENDENT MEASUREMENT 03/18/2024 4:27 PM SUPERINTENDENT MEASUREMENT us Basil Adhikari MD LAB POCT ORDERABLES - DE VICE Final Result [facility] [address] Department [place] [address] * Critical Care (03/18/2024 4:19 PM SUPERINTENDENT MEASUREMENT) Narrative Gian Robertson MD - 03/18/2024 4:19 PM SUPERINTENDENT MEASUREMENT Brenda Mayberry NP 03/18/2024 5:34 PM Critical Care Performed by: Brenda Mayberry NP Authorized by: Brenda Mayberry NP CRITICAL CARE: Team: [facility] CT Shift: AM Level of [...] plan with the ICU team and other medical/natural remedy consultant staff, making frequent assessments and decisions [...] Final Result * eGFR (03/18/2024 4:17 PM SUPERINTENDENT MEASUREMENT) eGFR 81 >=60 mL/min/1. 73 m2 Comment: [...] last reviewed 2021. Blood 03/18/2024 4:17 PM SUPERINTENDENT MEASUREMENT 03/18/2024 4:32 PM SUPERINTENDENT MEASUREMENT Brenda Mayberry NP LAB BLOOD ORDERABLES Final Result Performing Organization Address City/[facility] Co de Phone Number [facility] [address] [facility] [employer] [place], [place] [id number] * (ABNORMAL) Calcium, ionized (03/18/2024 4:17 PM SUPERINTENDENT MEASUREMENT) Calcium, Ionized 5.37(H) 4.50 - 5.10 mg/dL Blood 03/18/2024 4:17 PM SUPERINTENDENT MEASUREMENT 03/18/2024 4:32 PM SUPERINTENDENT MEASUREMENT Brenda Mayberry NP LAB BLOOD ORDERABLES Final Result Performing Organization Address [facility] de Phone Number [facility] [address] [facility] [address] * aPTT (03/18/2024 4:17 PM SUPERINTENDENT MEASUREMENT) aPTT 37 28 - 38 sec Comment: Interpretive Data Heparin therapeutic range: 66.0 - 100.0 seconds. Range based on correlation with therapeutic heparin activity range of 0.3 - 0.7 Units/mL. Current interpretive data was last revised on 2022. Blood 03/18/2024 4:17 PM SUPERINTENDENT MEASUREMENT 03/18/2024 4:32 PM SUPERINTENDENT MEASUREMENT Brenda Mayberry NP LAB BLOOD ORDERABLES Final Result Performing Organization Address [facility] Co de Phone Number [facility] [address] [facility] [address] * (ABNORMAL) Protime-INR (03/18/2024 4:17 PM SUPERINTENDENT MEASUREMENT) Pathologist [facility] PT 16.0(H) 9.7 - 13.0 sec INR 1.47(H) 0.90 - 1.20 [facility] Comment: Interpretive data Oral anticoagulant therapeutic ranges: Venous thromboembolism prophylaxis or treatment: 2.0-3.0 CARDIOLOGY Standard range: 2.0-3.0 High-intensity range: 2.5-3.5 Refer to indication-specific guidelines for appropriate target ranges for prosthetic heart valve replacement. Current interpretive data was last revised on 2019. Blood 03/18/2024 4:17 PM SUPERINTENDENT MEASUREMENT 03/18/2024 4:32 PM SUPERINTENDENT MEASUREMENT Brenda Mayberry NP LAB BLOOD ORDERABLES Final Result [facility] [address] Department [place] [address] * (ABNORMAL) CBC without differential (03/18/2024 4:17 PM SUPERINTENDENT MEASUREMENT) Pathologist [facility] WBC 8.5 3.8 - 9.9 K/cumm Hgb 11.1(L) 13.0 - 17.5 g/dL [facility] Hct 31.9(L) 38.9 - 50.3 % [facility] Plt 95(L) 150 - 400 K/cumm [facility] MPV 9.2 9.1 - 12.3 fL [facility] RBC 3.65(L) 4.30 - 5.80 M/cumm [facility] MCV 87.4 81.3 - 96.4 fL [facility] MCH 30.4 27.1 - 33.3 pg [facility] MCHC 34.8 32.3 - 35.7 g/dL [facility] RDW CV 12.5 11.1 - 14.9 % [facility] RDW SD 39.9 35.7 - 48.1 fL [facility] NRBC abs 0.00 0.00 - 0.01 K/cumm [facility] Blood 03/18/2024 4:17 PM SUPERINTENDENT MEASUREMENT 03/18/2024 4:32 PM SUPERINTENDENT MEASUREMENT Brenda Mayberry ROLL TUBE SETTER LAB BLOOD ORDERABLES Final Result Performing Organization Address [facility] Co de Phone Number [facility] [address] [facility] [address] * Phosphorus (03/18/2024 4:17 PM SUPERINTENDENT MEASUREMENT) Phosphorus, pl 3.6 2.3 - 4.5 mg/dL Blood 03/18/2024 4:17 PM SUPERINTENDENT MEASUREMENT 03/18/2024 4:32 PM SUPERINTENDENT MEASUREMENT Brenda Mayberry ROLL TUBE SETTER LAB BLOOD ORDERABLES Final Result Performing Organization Address [facility] Co de Phone Number [facility] [address] [facility] [address] * Magnesium (03/18/2024 4:17 PM SUPERINTENDENT MEASUREMENT) Magnesium 2.3 1.4 - 2.5 mg/dL Blood 03/18/2024 4:17 PM SUPERINTENDENT MEASUREMENT 03/18/2024 4:32 PM SUPERINTENDENT MEASUREMENT Brenda Mayberry ROLL TUBE SETTER LAB BLOOD ORDERABLES Final Result Performing Organization Address [facility] de Phone Number [facility] [address] [facility] [place] [address] * (ABNORMAL) Blood gas, arterial (03/18/2024 4:17 PM SUPERINTENDENT MEASUREMENT) pH, Art 7.41 7.35 - 7.45 PCO2, Arterial 33(L) 35 - 45 mmHg [facility] PO2, Arterial 168(H) 83 - 108 mmHg [facility] HCO3 Art (Calculated) 21 20 - 30 mmol/L [facility] BE, art -3 mmol/L [facility] Comment: Interpretive Data No Reference Range Established Current Interpretive Data was last revised on 2017 O2 Sat Art (Calculated) 100(H) 94 - 98 % [facility] Blood 03/18/2024 4:17 PM SUPERINTENDENT MEASUREMENT 03/18/2024 4:32 PM SUPERINTENDENT MEASUREMENT Brenda Mayberry NP LAB BLOOD ORDERABLES Final Result Performing Organization Address [facility] Co de Phone Number [facility] [address] [place] [address] * (ABNORMAL) Basic metabolic panel (03/18/2024 4:17 PM SUPERINTENDENT MEASUREMENT) Pathologist [facility] Sodium 137 135 - 145 mmol/L Potassium, pl 4.3 3.3 - 4.9 mmol/L [facility] Chloride 108 97 - 110 mmol/L [facility] CO2 21(L) 22 - 32 mmol/L [facility] Anion gap 8 2 - 15 mmol/L [facility] BUN 12 6 - 25 mg/dL [facility] Creatinine 0.93 0.80 - 1.30 mg/dL [facility] Glucose 124 70 - 199 mg/dL [facility] Comment: Interpretive Data Fasting glucose [...] 2022. Calcium 9.0 8.5 - 10.3 mg/dL [facility] Blood 03/18/2024 4:1 7 PM SUPERINTENDENT MEASUREMENT 03/18/2024 4:32 PM SUPERINTENDENT MEASUREMENT Brenda Mayberry NP LAB BLOOD ORDERABLES Final Result Performing Organization Address [facility]/ZIP Co de Phone Number [facility] [address] Department [place] [address] * aPTT (03/18/2024 3:38 PM SUPERINTENDENT MEASUREMENT) aPTT 38 28 - 38 sec Comment: Interpretive Data Heparin therapeutic range: 66.0 - 100.0 seconds. Range based on correlation with therapeutic heparin activity range of 0.3 - 0.7 Units/mL. Current interpretive data was last revised on 2022. Blood 03/18/2024 3:38 PM SUPERINTENDENT MEASUREMENT 03/18/2024 3:38 PM SUPERINTENDENT MEASUREMENT Basil Adhikari MD LAB BLOOD ORDERABLES Fin al Result Performing Organization Address [facility] Co de Phone Number [facility] [address] [place] [address] * (ABNORMAL) Protime-INR (03/18/2024 3:38 PM SUPERINTENDENT MEASUREMENT) Pathologist [facility] PT 17.5(H) 9.7 - 13.0 sec INR 1.60(H) 0.90 - 1.20 [facility] Comment: Interpretive data Oral anticoagulant therapeutic ranges: Venous thromboembolism prophylaxis or treatment: 2.0-3.0 CARDIOLOGY Standard range: 2.0-3.0 High-intensity range: 2.5-3.5 Refer to indication-specific guidelines for appropriate target ranges for prosthetic heart valve replacement. Current interpretive data was last revised on 2019. Blood 03/18/2024 3:38 PM SUPERINTENDENT MEASUREMENT 03/18/2024 3:38 PM SUPERINTENDENT MEASUREMENT Basil Adhikari MD LAB BLOOD ORDERABLES Fin al Result Performing Organization Address [facility]/ZIP Co de Phone Number [facility] [address] [place] [address] * Fibrinogen (03/18/2024 3:38 PM SUPERINTENDENT MEASUREMENT) Fibrinogen 184 170 - 400 mg/dL Blood 03/18/2024 3:38 PM SUPERINTENDENT MEASUREMENT 03/18/2024 3:38 PM SUPERINTENDENT MEASUREMENT Baisl Adhikari MD LAB BLOOD ORDERABLES Fin al Result Performing Organization Address City/[facility]/ZIP Co de Phone Number [facility] [address] [place] [address] * (ABNORMAL) CBC without differential (03/18/2024 3:38 PM SUPERINTENDENT MEASUREMENT) [facility] WBC 14.2(H) 3.8 - 9.9 K/cumm Hgb 10.6(L) 13.0 - 17.5 g/dL [facility] Hct 30.7(L) 38.9 - 50.3 % [facility] Plt 108(L) 150 - 400 K/cumm [facility] MPV 9.5 9.1 - 12.3 fL [facility] RBC 3.46(L) 4.30 - 5.80 M/cumm [facility] MCV 88.7 81.3 - 96.4 fL [facility] MCH 30.6 27.1 - 33.3 pg [facility] MCHC 34.5 32.3 - 35.7 g/dL [facility] RDW CV 12.5 11.1 - 14.9 % [facility] RDW SD 40.1 35.7 - 48.1 fL [facility] NRBC abs 0.00 0.00 - 0.01 K/cumm [facility] Blood 03/18/2024 3:38 PM SUPERINTENDENT MEASUREMENT 03/18/2024 3:38 PM SUPERINTENDENT MEASUREMENT Basil Adhikari MD LAB BLOOD ORDERABLES Fin al Result [facility] [address] [place] [address] * POC Activated Clotting Time, High Range (03/18/2024 3:35 PM SUPERINTENDENT MEASUREMENT) Pathologist [facility] ACT 130 87 - 138 sec Blood 03/18/2024 3:35 PM SUPERINTENDENT MEASUREMENT 03/18/2024 3:35 PM SUPERINTENDENT MEASUREMENT us Basil Adhikari MD LAB BLOOD ORDERABLES Fin al Result [facility] [address] Department [place] [address] * (ABNORMAL) POC Blood Gas and Chemistries, Arterial - (03/18/2024 3:35 PM SUPERINTENDENT MEASUREMENT) pH, Art POC 7.37 7.35 - 7.45 pCO2, Art POC 42 35 - 45 mmHg [facility] pO2, Art POC 330(H) 80 - 108 mmHg [facility] Na, POC 130(L) 135 - 145 mmol/L [facility] K POC 4.6 3.3 - 4.9 mmol/L [facility] Comment: Interpretive Data This method is not able to assess for hemolysis, which may falsely increase potassium concentrations. If further testing is needed to evaluate this result, consider in-laboratory plasma potassium. Current Interpretive Data was last revised on 2021. Cl, POC 103 97 - 110 mmol/L [facility] Ionized Ca, POC 6.06(H) 4.50 - 5.10 mg/dL [facility] Glucose, POC 157 70 - 199 mg/dL [facility] Lactate, POC 1.0 0.0 - 2.0 mmol/L [facility] O2Hb, Art POC 96.9(H) 90.0 - 95.0 % [facility] Carboxhgb fract 1.0 0.0 - 2.9 % [facility] Methemoglobin 1.3 0.0 - 1.9 % [facility] HHb, POC 0.9 0.0 - 5.0 % [facility] SO2 (shayne) arterial 99(H) 90 - 95 % [facility] BE, art, POC -1.0 -2.0 - 2.0 mmol/L [facility] HCO3, Art POC 24 20 - 30 mmol/L [facility] Hct, POC 34.0(L) 38.9 - 50.3 % [facility] Total Hb, POC 11.2(L) 13.0 - 17.5 g/dL [facility] Blood 03/18/2024 3:35 PM SUPERINTENDENT MEASUREMENT 03/18/2024 3:35 PM SUPERINTENDENT MEASUREMENT us Basil Adhikari MD LAB POCT ORDERABLES - DE VICE Final Result [facility] [address] Department [place] [address] * (ABNORMAL) POC Blood Gas and Chemistries, Arterial - (03/18/2024 2:41 PM SUPERINTENDENT MEASUREMENT) pH, Art POC 7.33(L) 7.35 - 7.45 pCO2, Art POC 45 35 - 45 mmHg [facility] pO2, Art POC 345(H) 80 - 108 mmHg [facility] Na, POC 129(L) 135 - 145 mmol/L [facility] K POC 5.3(H) 3.3 - 4.9 mmol/L [facility] Comment: Interpretive Data This method is not able to assess for hemolysis, which may falsely increase potassium concentrations. If further testing is needed to evaluate this result, consider in-laboratory plasma potassium. Current Interpretive Data was last revised on 2021. Cl, POC 102 97 - 110 mmol/L [facility] Ionized Ca, POC 4.66 4.50 - 5.10 mg/dL [facility] Glucose, POC 153 70 - 199 mg/dL [facility] Lactate, POC 0.8 0.0 - 2.0 mmol/L [facility] O2Hb, Art POC 96.6(H) 90.0 - 95.0 % [facility] Carboxhgb fract 1.2 0.0 - 2.9 % [facility] Methemoglobin 1.4 0.0 - 1.9 % [facility] HHb, POC 0.8 0.0 - 5.0 % [facility] SO2 (shayne) arterial 99(H) 90 - 95 % [facility] BE, art, POC -2.3(L) -2.0 - 2.0 mmol/L [facility] HCO3, Art POC 23 20 - 30 mmol/L [facility] Hct, POC 32.0(L) 38.9 - 50.3 % [facility] Total Hb, POC 10.7(L) 13.0 - 17.5 g/dL [facility] Blood 03/18/2024 2:41 PM SUPERINTENDENT MEASUREMENT 03/18/2024 2:41 PM SUPERINTENDENT MEASUREMENT Basil Adhikari MD LAB POCT ORDERABLES - DE VICE Final Result Performing Organization Address [facility] Co de Phone Number [facility] [address] Department [place] [address] * (ABNORMAL) POC Activated Clotting Time, High Range (03/18/2024 2:40 PM SUPERINTENDENT MEASUREMENT) ACT 474(H) 87 - 138 sec Blood 03/18/2024 2:40 PM SUPERINTENDENT MEASUREMENT 03/18/2024 2:40 PM SUPERINTENDENT MEASUREMENT Basil Adhikari MD LAB BLOOD ORDERABLES Fin al Result Performing Organization Address [facility] Co de Phone Number [facility] [address] Department [place] [employer] [address] * (ABNORMAL) POC Blood Gas and Chemistries, Venous - (03/18/2024 2:30 PM SUPERINTENDENT MEASUREMENT) pH, Boyd POC 7.34 7.32 - 7.45 pCO2, boyd POC 47 40 - 50 mmHg [facility] pO2, boyd POC 52(H) 35 - 42 mmHg [facility] Na, POC 131(L) 135 - 145 mmol/L [facility] K POC 5.0(H) 3.3 - 4.9 mmol/L [facility] Comment: Interpretive Data This method is not able to assess for hemolysis, which may falsely increase potassium concentrations. If further testing is needed to evaluate this result, consider in-laboratory plasma potassium. Current Interpretive Data was last revised on 2021. Cl, POC 101 97 - 110 mmol/L [facility] Ionized Ca, POC 4.65 4.50 - 5.10 mg/dL [facility] Glucose, POC 130 70 - 199 mg/dL [facility] Lactate, POC 0.6 0.0 - 2.0 mmol/L [facility] O2Hb, Boyd POC 81.4(L) 90.0 - 95.0 % [facility] Carboxhgb fract 1.5 0.0 - 2.9 % [facility] Methemoglobin 1.1 0.0 - 1.9 % [facility] HHb, POC 16.0(H) 0.0 - 5.0 % [facility] O2 Sat, Boyd POC (Shayne) 84(H) 68 - 77 % [facility] Base excess, boyd POC -0.7 mmol/L [facility] HCO3, Boyd POC 24 20 - 30 mmol/L [facility] Hct, POC 33.0(L) 38.9 - 50.3 % [facility] Total Hb, POC 11.0(L) 13.0 - 17.5 g/dL [facility] Blood 03/18/2024 2:30 PM SUPERINTENDENT MEASUREMENT 03/18/2024 2:30 PM SUPERINTENDENT MEASUREMENT us Basil Adhikari MD LAB POCT ORDERABLES - DE VICE Final Result [place] [address] [address] Department [place] [address] * Surgical pathology (03/18/2024 2:09 PM SUPERINTENDENT MEASUREMENT) Tissue (Aorta) 03/18/2024 2: 09 PM SUPERINTENDENT MEASUREMENT Comment:Placed in formalin a t end of case Narrative PATHOLOGY [facility] - 03/22/2024 11:52 AM SUPERINTENDENT MEASUREMENT [place] [id number] [facility], [place], [place] [address] Tele: Josie Cárdenas MD - [facility] Note to Patients: This report may contain [...] PATHOLOGY REPORT Patient Name: GIAN LEE Address: [address] [place] [address] Gender: M : 1940 (Age: 83) Service: Cardiothoracic Location: [place] [address], Hospital #: [id number] Patient Type: [facility] INPATIENT Taken: 03/18/2024 Received 03/18/2024 Reported: 03/22/2024 [...] The vascular wall intact, and mildly hemorrhagic. [employer] sections are submitted as follows: A1 - [employer] sections, A2-A6 - Additional sections. [facility]/03/19/2024 14:38 DMS,JAP MICROSCOPIC DESCRIPTION: Microscopic examination supports [...] a non-neoplastic entity. Clerical Data Follows A; 43053, 56545, 53778(6) REPORT IMAGES AND/OR SCANNED DOCUMENTS ONLY VIEWABLE IN PDF FORMAT The immunohistochemical test(s) cited in this report, if any, was developed and its performance characteristics determined by [facility] Pathology Department. It has not been cleared or approved by the U.S. Food and Drug Administration. The FDA has determined that such clearance or approval is not necessary. This test is used for clinical purposes. It should not be regarded as investigational or for research. [facility] Laboratory is certified under the Clinical [...] part or completely in the following laboratories: [facility], [facility], [address] [place] [id number]. Basil Adhikari MD LAB PATHOLOGY ORDERABLES Final Result Performing Organization Address City/[facility]/ZIP Co de Phone Number PATHOLOGY [facility] Laboratory Receiving [address] [place], [place] [id number] * (ABNORMAL) POC Activated Clotting Time, High Range (03/18/2024 2:08 PM SUPERINTENDENT MEASUREMENT) [facility] ACT 627(H) 87 - 138 sec Blood 03/18/2024 2:08 PM SUPERINTENDENT MEASUREMENT 03/18/2024 2:08 PM SUPERINTENDENT MEASUREMENT Basil Adhikari MD LAB BLOOD ORDERABLES Fin al Result [facility] [address] Department of Laboratories [place], [place] [id number] * (ABNORMAL) POC Blood Gas and Chemistries, Arterial - (03/18/2024 2:08 PM SUPERINTENDENT MEASUREMENT) pH, Art POC 7.35 7.35 - 7.45 pCO2, Art POC 44 35 - 45 mmHg [facility] pO2, Art POC 417(H) 80 - 108 mmHg [facility] Na, POC 129(L) 135 - 145 mmol/L [facility] K POC 5.7(H) 3.3 - 4.9 mmol/L [facility] Comment: Interpretive Data This method is not able to assess for hemolysis, which may falsely increase potassium concentrations. If further testing is needed to evaluate this result, consider in-laboratory plasma potassium. Current Interpretive Data was last revised on 2021. Cl, POC 103 97 - 110 mmol/L [facility] Ionized Ca, POC 4.68 4.50 - 5.10 mg/dL [facility] Glucose, POC 122 70 - 199 mg/dL [facility] Lactate, POC 0.5 0.0 - 2.0 mmol/L [facility] O2Hb, Art POC 97.5(H) 90.0 - 95.0 % [facility] Carboxhgb fract 1.0 0.0 - 2.9 % [facility] Methemoglobin 0.8 0.0 - 1.9 % [facility] HHb, POC 0.7 0.0 - 5.0 % [facility] SO2 (shayne) arterial 99(H) 90 - 95 % [facility] BE, art, POC -1.4 -2.0 - 2.0 mmol/L [facility] HCO3, Art POC 24 20 - 30 mmol/L [facility] Hct, POC 33.0(L) 38.9 - 50.3 % [facility] Total Hb, POC 11.0(L) 13.0 - 17.5 g/dL [facility] Blood 03/18/2024 2:08 PM SUPERINTENDENT MEASUREMENT 03/18/2024 2:08 PM SUPERINTENDENT MEASUREMENT us Basil Adhikari MD LAB POCT ORDERABLES - DE VICE Final Result [facility] [address] Department [place] [address] * (ABNORMAL) POC Blood Gas and Chemistries, Arterial - (03/18/2024 1:50 PM SUPERINTENDENT MEASUREMENT) pH, Art POC 7.39 7.35 - 7.45 pCO2, Art POC 38 35 - 45 mmHg [facility] pO2, Art POC 426(H) 80 - 108 mmHg [facility] Na, POC 128(L) 135 - 145 mmol/L [facility] K POC 4.4 3.3 - 4.9 mmol/L [facility] Comment: Interpretive Data This method is not able to assess for hemolysis, which may falsely increase potassium concentrations. If further testing is needed to evaluate this result, consider in-laboratory plasma potassium. Current Interpretive Data was last revised on 2021. Cl, POC 101 97 - 110 mmol/L [facility] Ionized Ca, POC 4.82 4.50 - 5.10 mg/dL [facility] Glucose, POC 113 70 - 199 mg/dL [facility] Lactate, POC 0.5 0.0 - 2.0 mmol/L [facility] O2Hb, Art POC 97.1(H) 90.0 - 95.0 % [facility] Carboxhgb fract 1.4 0.0 - 2.9 % [facility] Methemoglobin 1.2 0.0 - 1.9 % [facility] HHb, POC 0.3 0.0 - 5.0 % [facility] SO2 (shayne) arterial 100(H) 90 - 95 % [facility] BE, art, POC -1.7 -2.0 - 2.0 mmol/L [facility] HCO3, Art POC 24 20 - 30 mmol/L [facility] Hct, POC 39.0 38.9 - 50.3 % [facility] Total Hb, POC 12.9(L) 13.0 - 17.5 g/dL [facility] Blood 03/18/2024 1:50 PM SUPERINTENDENT MEASUREMENT 03/18/2024 1:50 PM SUPERINTENDENT MEASUREMENT us Basil Adhikari MD LAB POCT ORDERABLES - DE VICE Final Result [facility] [address] Department [place] [address] * (ABNORMAL) POC Activated Clotting Time, High Range (03/18/2024 1:49 PM SUPERINTENDENT MEASUREMENT) ACT 608(H) 87 - 138 sec Blood 03/18/2024 1:49 PM SUPERINTENDENT MEASUREMENT 03/18/2024 1:49 PM SUPERINTENDENT MEASUREMENT Basil Adhikari MD LAB BLOOD ORDERABLES Fin al Result [facility] [address] Department [place] [address] * BW AN SHEATH INTRODUCER PERFORMABLE, PULMONARY ARTERY CATH, DC AN PROCEDURE PLACEHOLDER (:41 PM SUPERINTENDENT MEASUREMENT) Narrative Gamal Asher MD PhD - 03/18/2024 1:41 PM SUPERINTENDENT MEASUREMENT Gamal Asher MD PhD 03/18/2024 1:41 PM [...] PhD ANESTHESIA ORDERABLES Fi nal Result * DC AN CENTRAL LINE QUADRUPLE LUMEN, DC AN PROCEDURE PLACEHOLDER (03/18/2024 1:40 PM SUPERINTENDENT MEASUREMENT) Gamal Robbins MD PhD - 03/18/2024 1:40 PM SUPERINTENDENT MEASUREMENT Gamal Asher MD PhD 03/18/2024 1:41 PM [...] PhD ANESTHESIA ORDERABLES Fi nal Result * DC AN PROCEDURE PLACEHOLDER (03/18/2024 1:39 PM SUPERINTENDENT MEASUREMENT) Gamal Robbins MD PhD - 03/18/2024 1:39 PM SUPERINTENDENT MEASUREMENT Gamal Asher MD PhD 03/18/2024 1:39 PM [...] PhD ANESTHESIA ORDERABLES Fi nal Result * DC AN PROCEDURE PLACEHOLDER (03/18/2024 1:38 PM SUPERINTENDENT MEASUREMENT) Gamal Robbins MD PhD - 03/18/2024 1:38 PM SUPERINTENDENT MEASUREMENT Gamal Asher MD PhD 03/18/2024 1:38 PM [...] PhD ANESTHESIA ORDERABLES Fi nal Result * DC AN ELECTIVE ENDOTRACHEAL AIRWAY, DC AN PROCEDURE PLACEHOLDER (03/18/2024 1:37 PM SUPERINTENDENT MEASUREMENT) Gamal Robbins MD PhD - 03/18/2024 1:37 PM SUPERINTENDENT MEASUREMENT Gamal Asher MD PhD 03/18/2024 1:37 PM [...] PhD ANESTHESIA ORDERABLES Fi nal Result * DC AN PROCEDURE PLACEHOLDER (03/18/2024 1:29 PM SUPERINTENDENT MEASUREMENT) Anatomical Region Laterality Modality Other Narrative 03/18/2024 1:29 PM SUPERINTENDENT MEASUREMENT Derek Marin MD PhD 03/18/2024 4:18 PM [...] code: LIDIA placement and diagnostic exam, non-congenital (47448) ICD code(s) for medical necessity: I71.2 - [...] inferior: normal 16- Apical septal: normal 17- Hull: normal Valves: Aortic Valve: Annulus: dilated Leaflet [...] Clotting Time, High Range (03/18/2024 1:11 PM SUPERINTENDENT MEASUREMENT) ACT 111 87 - 138 sec Blood 03/18/2024 1:11 PM SUPERINTENDENT MEASUREMENT 03/18/2024 1:11 PM SUPERINTENDENT MEASUREMENT Basil Adhikari MD LAB BLOOD ORDERABLES Fin al Result Performing Organization Address [facility] Co de Phone Number [facility] [address] [place] [address] * LIDIA Add-On For OR (03/18/2024 12:05 PM SUPERINTENDENT MEASUREMENT) BSA 1.88 m2 CONS SCIMAGE Narrative CONS SCIMAGE - 03/18/2024 12:05 PM SUPERINTENDENT MEASUREMENT Procedure Auto Finalized by Rule: BW CV LIDIA DURING CASE OR Please see the Anesthesiologist's Procedure Note for the results. Gamal Asher MD PhD CV ECHO PROCEDURES Final Result Performing Organization Address [facility] de Phone Number CONS SCIMAGE * Check Sample (03/18/2024 9:54 AM SUPERINTENDENT MEASUREMENT) ABO Rh O Positive MBC HCLL OTHER 03/18/2024 9:54 AM SUPERINTENDENT MEASUREMENT 03/18/2024 10:20 AM SUPERINTENDENT MEASUREMENT Basil Adhikari MD LAB BLOOD ORDERABLES Fin al Result Performing Organization Address [facility] Co de Phone Number [facility] [address] [place] [address] [phone] [facility] * ECG 12 lead (03/18/2024 9:34 AM SUPERINTENDENT MEASUREMENT) 03/18/2024 9:34 AM SUPERINTENDENT MEASUREMENT Narrative [facility] - 03/18/2024 10:15 AM SUPERINTENDENT MEASUREMENT Vent Rate: 46 bpm RR Interval: 1277 msec DC Interval: 115 msec QRS Duration: 84 msec QT Interval: 430 msec QTC Interval: 391 msec P-R-T [place]: 56 - -19 - -14 degrees IMPRESSION: SINUS BRADYCARDIA WITH SINUS ARRHYTHMIA WITH SHORT DC INTERVAL POSSIBLE ANTERIOR MYOCARDIAL INFARCTION , PROBABLY OLD BORDERLINE ECG Electronically Signed By: Klaus Hupmhrey MD PhD us Ev Freed NP ECG ORDERABLES Final Res ult [facility] * Prepare RBC: 4 Units (03/18/2024 9:12 AM SUPERINTENDENT MEASUREMENT) Product code [id number] [facility] Unit Number [id number] 8-8 [facility] Product Blood Type OPOS [facility] Dispense Status RETURNED [facility] Product code [id number] Unit Number [id number] [id number] [facility] Product Blood Type OPOS [facility] Dispense Status RETURNED [facility] Product code [id number] [facility] Unit Number [id number] 7-[id number] [facility] Product Blood Type OPOS [facility] Dispense Status RETURNED [facility] Product code [id number] [facility] Unit Number [id number] 0-U [facility] Product Blood Type OPOS [facility] Dispense Status RETURNED [facility] Blood 03/18/2024 9:12 AM SUPERINTENDENT MEASUREMENT Narrative [facility] - 03/22/2024 7:46 AM SUPERINTENDENT MEASUREMENT Specify Procedure:->tissue aortic root replacement Are special requirements needed? (All products are leukoreduced and CMV- safe)- >No Date required:-[id number] LRRBC # of [id number] Reasons:-Hold for procedure (specify procedure)} us Ev Freed NP BLOOD BANK PRODUCT ORDERA BLES Final Result [facility] [address] Department [place] [address] * Differential, auto (03/15/2024 12:29 PM SUPERINTENDENT MEASUREMENT) Neutrophil abs 2.5 1.5 - 6.5 K/cumm Imm gran abs 0.0 0.0 - 0.1 K/cumm [facility] Lymphocyte abs 1.1 0.8 - 3.3 K/cumm [facility] Monocyte abs 0.6 0.2 - 0.8 K/cumm [facility] Eosinophil abs 0.2 0.0 - 0.5 K/cumm [facility] Basophil abs 0.0 0.0 - 0.1 K/cumm [facility] Neutrophil pct 56.5 % [facility] Comment: Interpretive Data Percent cell count reference ranges are not reported, since discordance with absolute values may lead to misinterpretation of CBC data. Current Interpretive Data was last revised on 2017. Imm gran pct 0.5 % [facility] Comment: Interpretive Data Percent cell count reference ranges are not reported, since discordance with absolute values may lead to misinterpretation of CBC data. Current Interpretive Data was last revised on 2017. Lymphocyte pct 23.8 % [facility] Comment: Interpretive Data Percent cell count reference ranges are not reported, since discordance with absolute values may lead to misinterpretation of CBC data. Current Interpretive Data was last revised on 2017. Monocyte pct 14.5 % [facility] Comment: Interpretive Data Percent cell count reference ranges are not reported, since discordance with absolute values may lead to misinterpretation of CBC data. Current Interpretive Data was last revised on 2017. Eosinophil pct 3.8 % [facility] Comment: Interpretive Data Percent cell count reference ranges are not reported, since discordance with absolute values may lead to misinterpretation of CBC data. Current Interpretive Data was last revised on 2017. Basophil pct 0.9 % [facility] Comment: Interpretive Data Percent cell count reference ranges are not reported, since discordance with absolute values may lead to misinterpretation of CBC data. Current Interpretive Data was last revised on 2017. Blood 03/15/2024 12:2 9 PM SUPERINTENDENT MEASUREMENT 03/15/2024 12:29 PM SUPERINTENDENT MEASUREMENT Basil Adhikari MD LAB BLOOD ORDERABLES Fin al Result Performing Organization Address [facility]/ZIP Co de Phone Number [facility] [address] [place], [place] [id number] * CBC with auto differential (03/15/2024 12:29 PM SUPERINTENDENT MEASUREMENT) Pathologist [facility] WBC 4.4 3.8 - 9.9 K/cumm Hgb 14.5 13.0 - 17.5 g/dL [facility] Hct 42.9 38.9 - 50.3 % [facility] Plt 156 150 - 400 K/cumm [facility] MPV 9.9 9.1 - 12.3 fL [facility] RBC 4.82 4.30 - 5.80 M/cumm [facility] MCV 89.0 81.3 - 96.4 fL [facility] MCH 30.1 27.1 - 33.3 pg [facility] MCHC 33.8 32.3 - 35.7 g/dL [facility] RDW CV 12.4 11.1 - 14.9 % [facility] RDW SD 40.8 35.7 - 48.1 fL [facility] NRBC abs 0.00 0.00 - 0.01 K/cumm [facility] Blood 03/15/2024 12:2 9 PM SUPERINTENDENT MEASUREMENT 03/15/2024 12:29 PM SUPERINTENDENT MEASUREMENT Basil Adhikari MD LAB BLOOD ORDERABLES Fin al Result Performing Organization Address [facility]/ZIP Co de Phone Number [facility] [address] Department of [employer] [place], [place] [id number] * Type and screen (03/15/2024 12:29 PM SUPERINTENDENT MEASUREMENT) Alex, indirect Negative ABO Rh O Positive [facility] Blood 03/15/2024 12:2 9 PM SUPERINTENDENT MEASUREMENT 03/15/2024 12:45 PM SUPERINTENDENT MEASUREMENT Narrative [facility] - 03/15/2024 1:31 PM SUPERINTENDENT MEASUREMENT No blood transfusions last 90 days Surgery 03/18/24 No blood transfusions last 90 days Surgery 03/18/24 Has the patient had Daratumumab or Isatuximab in the past 6 months?->No Basil Adhikari MD LAB BLOOD BANK TEST ORDE WILLOW Final Result Performing Organization Address [facility] de Phone Number [facility] [address] [place] [address] * Hemoglobin A1c (03/15/2024 12:29 PM SUPERINTENDENT MEASUREMENT) [facility] Hgb A1C 5.2 4.0 - 5.6 % Estimated Average Glucose 103 mg/dL [facility] Comment: The ADA recommends reporting an estimated Average Glucose (eAG) with all Hemoglobin A1c results using the equation derived from a study of 507 normal and diabetic adults. Minority populations were underrepresented and children were not included. (Diabetes Care 31:5691-6910, 2008). The eAG is not equivalent to a fasting glucose. Blood 03/15/2024 12:2 9 PM SUPERINTENDENT MEASUREMENT 03/15/2024 12:29 PM SUPERINTENDENT MEASUREMENT Basil Adhikari MD LAB BLOOD ORDERABLES Fin al Result Performing Organization Address [facility] Co de Phone Number [facility] [address] [place] [address] * eGFR (03/15/2024 12:28 PM SUPERINTENDENT MEASUREMENT) [facility] eGFR 65 >=60 mL/min/1. 73 m2 Comment: [...] reviewed 2021. Blood 03/15/2024 12:2 8 PM SUPERINTENDENT MEASUREMENT 03/15/2024 12:28 PM SUPERINTENDENT MEASUREMENT us Basil Adhikari MD LAB BLOOD ORDERABLES Fin al Result [facility] [address] Department [place] [address] * (ABNORMAL) Comprehensive metabolic panel (03/15/2024 12:28 PM SUPERINTENDENT MEASUREMENT) Sodium 134(L) 135 - 145 mmol/L Potassium, pl 4.7 3.3 - 4.9 mmol/L [facility] Chloride 98 97 - 110 mmol/L [facility] CO2 25 22 - 32 mmol/L [facility] Anion gap 11 2 - 15 mmol/L [facility] BUN 12 6 - 25 mg/dL [facility] Creatinine 1.11 0.80 - 1.30 mg/dL [facility] Glucose 82 70 - 199 mg/dL [facility] Comment: Interpretive Data Fasting glucose [...] 2022. Calcium 9.3 8.5 - 10.3 mg/dL [facility] Bilirubin, total 0.8 0.1 - 1.2 mg/dL [facility] Protein, pl 6.8 6.5 - 8.5 g/dL [facility] Albumin 4.5 3.5 - 5.0 g/dL [facility] Alk phos 82 40 - 130 Units/L [facility] ALT 26 7 - 55 Units/L [facility] AST 39 10 - 50 Units/L [facility] Blood 03/15/2024 12:2 8 PM SUPERINTENDENT MEASUREMENT 03/15/2024 12:28 PM SUPERINTENDENT MEASUREMENT us Basil Adhikari MD LAB BLOOD ORDERABLES Fin al Result [facility] [address] Department [place] [address] from Last 3 Months Insurance [facility] MEDICARE [facility] [employer] Advance Directives For more information, please contact: [phone] * Full Code (Latest Code Status on [...] 8:19 AM 09/09/2019 6:53 PM Care 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
--- OUTSIDE RECORDS SUMMARY | 2024-05-10 09:16 | XMS_ITS | Clinical Summary ---
Author Organization [facility] Address [address] [place]: Epic Prelude ADT ZURI BAZAN [place]YS[place] [address] Care Team Providers Care Director Of Vocational Guidance Name Role Phone Unavailable Primary Care Provider [...] Paste Use a pea-sized amount once daily. [place] for 2 minutes, spit excess. No rinsing, [...] day. 14 Tablet 1 2 5:00 PM ELECTRICAL AND RADIO MOCK UP MECHANIC 01/25/20 22 Active Sodium Fluoride (PreviDent 5000 Booster Plus) 1.1 % Paste USE A PEA SIZE AMOUNT TO BRUSH FOR 2 MINUTES THEN SPIT IT OUT. NO EATING, DRINKING OR RINSING FOR 30 MINUTES AFTER BRUSHING. 100 mL 2 1:28 PM ELECTRICAL AND RADIO MOCK UP MECHANIC 02/15/20 22 Active benzonatate (TESSALON) 100 mg [...] at bedtime 45 Tablet 3 2:27 PM ELECTRICAL AND RADIO MOCK UP MECHANIC 03/31/19 23 Active mirtazapine (REMERON) 15 mg tablet Take 1.5 Tablets (22.5 mg) by mouth daily at bedtime. 45 Tablet 4 3 4:01 PM CDT 04/26/19 23 Active rosuvastatin (Crestor) 10 mg tablet Take 1 Tablet (10 mg) by mouth daily. 90 Tablet 3 4 5:07 PM ELECTRICAL AND RADIO MOCK UP MECHANIC 07/11/19 23 Active cyanocobalamin , vitamin B-12, [...] bedtime 45 Tablet 5 4 11:21 AM ELECTRICAL AND RADIO MOCK UP MECHANIC 12/11/19 23 Active Sodium Fluoride (PreviDent 5000 Booster Plus) 1.1 % Paste [place] with pea-sized amount once daily. [place] for 2 minutes and spit out excess. [...] for congestion. 30 Capsule 4 12:26 PM ELECTRICAL AND RADIO MOCK UP MECHANIC 05/07/19 24 Active levothyroxine 75 mcg tablet Take 1 Tablet (75 mcg) by mouth daily. 90 Tablet 3 4 1:18 PM ELECTRICAL AND RADIO MOCK UP MECHANIC 05/15/19 24 Active sodium bicarbonate 650 mg tablet Take 1 tablet by mouth twice a day 60 Tablet 4 2:28 PM ELECTRICAL AND RADIO MOCK UP MECHANIC 05/21/19 24 Active busPIRone (BUSPAR) 5 mg [...] daily. 100 Tablet 3 4 1:18 PM ELECTRICAL AND RADIO MOCK UP MECHANIC 07/25/19 24 Active tamsulosin (FLOMAX) 0.4 mg [...] bedtime. 30 Tablet 5 4 4:49 PM ELECTRICAL AND RADIO MOCK UP MECHANIC 10/14/19 24 Active peg 3350-electroly kajal (GOLYTELY) [...] daily. 30 Tablet 3 4 2:05 PM ELECTRICAL AND RADIO MOCK UP MECHANIC 12/09/19 24 Active sacubitriL-quinn sartan (Entresto) 24-26 mg Tablet TAKE 1 TABLET BY MOUTH TWICE A DAY 180 Tablet 3 4 4:49 PM ELECTRICAL AND RADIO MOCK UP MECHANIC 01/14/20 24 Active Sodium Fluoride 1.1 % Paste Apply to the teeth daily at nightime or as directed 100 mL 1 4 3:07 PM ELECTRICAL AND RADIO MOCK UP MECHANIC 02/03/20 24 Active rosuvastatin (CRESTOR) 10 mg tablet Take 1 Tablet (10 mg) by mouth daily. 90 Tablet 2 02/06/20 24 Active tadalafiL (CIALIS) 20 mg tablet Take 1 tablet by mouth as needed 30 minutes before sexual activity. Do not use more than 1 dose in 24 hours. 10 Tablet 3 4 2:35 PM ELECTRICAL AND RADIO MOCK UP MECHANIC 02/18/20 24 Active rivaroxaban (Xarelto) 10 mg Tablet Take 1 Tablet (10 mg) by mouth daily. 30 Tablet 4 2:05 PM ELECTRICAL AND RADIO MOCK UP MECHANIC 03/04/20 24 Active busPIRone (BUSPAR) 5 mg tablet Take 1 Tablet (5 mg) by mouth 2 times daily. 180 Tablet 1 03/08/20 24 Active mirtazapine (REMERON) 15 mg tablet Take 1.5 Tablets (22.5 mg) by mouth daily at bedtime. 135 Tablet 1 5 2:57 PM ELECTRICAL AND RADIO MOCK UP MECHANIC 03/08/20 24 Active amiodarone (CORDARONE) 100 mg Tablet Take 1 Tablet (100 mg) by mouth daily. 30 Tablet 1 5 2:11 PM ELECTRICAL AND RADIO MOCK UP MECHANIC 04/20/19 25 Active apixaban (Eliquis) 5 mg tablet Administer 1 tablet (5 mg total) per feeding tube every 12 (twelve) hours 60 Tablet 5 2:11 PM ELECTRICAL AND RADIO MOCK UP MECHANIC 04/20/19 25 Active levothyroxine 88 mcg tablet Take 1 tablet (88 mcg total) by mouth in the iv therapy nurse before breakfast 30 Tablet 5 2:11 PM ELECTRICAL AND RADIO MOCK UP MECHANIC 04/20/19 25 Active midodrine (PROAMATINE) 5 mg tablet Take 1 tablet (5 mg total) by mouth 3 (three) times a day before meals 90 Tablet 5 2:11 PM ELECTRICAL AND RADIO MOCK UP MECHANIC 04/20/19 25 Active rosuvastatin (CRESTOR) 20 mg tablet Take 1 Tablet (20 mg) by mouth daily. 30 Tablet 5 2:11 PM ELECTRICAL AND RADIO MOCK UP MECHANIC 04/20/19 25 Active Sodium Chloride 1,000 mg Tablet, Soluble Take 1 tablet (1 g total) by mouth 2 (two) times a day 60 Tablet 5 2:11 PM ELECTRICAL AND RADIO MOCK UP MECHANIC 04/20/19 25 Active amiodarone (CORDARONE) 200 mg tablet Give 1/2 tablet via feeding tube daily 30 Tablet 04/29/19 25 Active aspirin (THADDEUS CHEWABLE) 81 mg Tablet, Chewable Give 1 tablet via feeding tube daily 30 Tablet 04/29/19 25 Active busPIRone (BUSPAR) 10 mg tablet Give 1/2 tablet (5 mg) via feeding tube twice daily 60 Tablet 5 2:11 PM ELECTRICAL AND RADIO MOCK UP MECHANIC 04/29/19 25 Active Sodium Chloride 1,000 mg [...] 6 hours 60 Tablet 5 2:11 PM ELECTRICAL AND RADIO MOCK UP MECHANIC 04/29/19 25 Active oxyBUTYnin (DITROPAN) 5 mg tablet Give 1 tablet via feeding tube daily 30 Tablet 5 2:11 PM ELECTRICAL AND RADIO MOCK UP MECHANIC 04/29/19 25 Active mirtazapine (REMERON) 15 mg tablet Give 1.5 tablets via feeding tube bedtime 30 Tablet 04/29/19 25 Active levothyroxine 88 mcg tablet Take 1 Tablet (88 mcg) via feeding tube daily at 5:00. 30 Tablet 5 05/03/19 25 Active amoxicillin - clavulanate (AUGMENTIN) 400-57 mg/5 mL suspension Take 10 mL by mouth 2 times daily for 4 days. Discard remainder. 100 mL 5 5:58 PM ELECTRICAL AND RADIO MOCK UP MECHANIC 05/05/19 25 025 Active doxycycline monohydrate (VIBRAMYCIN) 25 mg/5 mL suspension Give 20 mL (100 mg) via feeding tube 2 times daily for 4 days. DISCARD REMAINING MEDICATION. 180 mL 5 5:05 PM ELECTRICAL AND RADIO MOCK UP MECHANIC 05/05/19 25 025 Active vibegron (Gemtesa) 75 mg Tablet Take 1 Tablet by mouth daily. 30 Tablet 5 5 3:48 PM ELECTRICAL AND RADIO MOCK UP MECHANIC 05/06/19 25 Active gabapentin (NEURONTIN) 100 mg capsule Give 1 capsule via feeding tube daily 30 Capsule 04/29/19 25 025 Discontinued Immunizations Immunization Administration Dates Next Due ([facility])(12 YR UP) COVID- 19 VACCINE, MRNA, SPIKE PROTEIN, LNP, OFELIA(PF) 30 MCG/0.3 ML IM SUSP 12/01/2023 (PREVNAR 20)(6 WKS UP) PNEUM OCOCCAL CONJUGATE VACCINE 20-VALENT (PCV20), POLYSACCHARIDE [id number] CONJUGATE, ADJUVANT 0.5 ML (PF) IM 12/01/2023 [...] - 1-dose 75+ series) 07/30/2014 COVID-19 Vaccine ( - season) 2024 12/01/2023, 05/30/2020, 04/18/2020 PNEUMOCOCCAL VACCINE 65+ YEARS Completed 12/01/2023 INFLUENZA VACCINE Completed 12/22/2023, 12/25/2021 Insurance RX [facility] [employer] [facility] [employer] 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
--- OUTSIDE RECORDS SUMMARY | 2024-05-10 09:16 | XMS_ITS | Clinical Summary ---
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
--- OUTSIDE RECORDS SUMMARY | 2024-05-10 09:16 | XMS_ITS | Continuity of Care Document ---
Author Organization [facility] Address [address] [place] [address] Phone Care Team Providers Care Open End Spinning Operator Name Role Phone Brennon Davis MD Unavailable [...] visit Office/outpatient visit,est, mod 2017 Office/outpatient visit,est, [facility] [place] 2017 X-ray exam shoulder minimum 2 views Office/outpatient visit,est, low 2015 Office/outpatient visit,est, low 2014 Global/Postop followup visit Global/Postop followup visit X-ray exam shoulder minimum 2 views Global/Postop followup visit Office/outpatient visit,[facility], [facility] [place] [place] 2014 Advance Directives Directive Yes / No Effective Date File Name No Information Encounters Encounter Description Practice Location Reason(s) For Visit Diagnoses Date Provider Providers Copied on Encounter [facility], [address], [place], [place], [id number], [place] tel:[phone] [email or web address] Bilateral Shoulders (chief complaint) Presence of left artificial shoulder jointPresence of right artificial shoulder joint May-0 6-201 9 Ryan Willett. [address] [facility], [place] [address], [place], [place], [id number] , [place]. tel:[phone] Referring Provider: Gamal Hong, [address] [facility] [address], [place], [address]. tel:[phone] [facility], [address] [address], [place], [place], [id number], [place] [phone] [facility] Right shoulder (chief complaint) Presence of right artificial shoulder joint Aug-0 3-201 8 Ryan Brennon. [address] [facility], [place] [address], [place], [place], [id number] , [place]. tel: [phone] [email or web address], [address] [address], [place], [place], [id number], [place] tel:[phone] [email or web address] Right shoulder (chief complaint) Presence of right artificial shoulder joint Gibson-2 0-201 8 Ryan Brennon. [address] [facility], [place] [address], [place], [place], [id number] , [place]. tel: [phone] [email or web address], [address], [id number], [place] [phone] [facility] right shoulder (chief complaint) Presence of right artificial shoulder joint May-2 3-201 8 Ryan Brennon. [address] [facility], [facility] [address], [place], [place], [id number] , [place]. tel: [phone] [email or web address], [address] [address], [place], [place], [id number], [place] [phone] [facility] Primary osteoarthritis, right shoulder Apr-1 6-201 8 Ryan Willett. [address] [facility], [place] [address], [place], [place], [id number] , [place]. tel: [phone] Office/outpat ient visit,est, mod [facility], [address] [address], [place], [place], [id number], [place] tel:[phone] [facility] Right Shoulder (chief complaint) Primary osteoarthritis, right shoulder Feb-2 6-201 8 Ryan Willett. [address] [address], [place], [place], [id number] , [place]. tel:[phone] Office/outpat ient visit,est, [facility] [place] [facility], [address] [address], [place], [place], [id number], [place] [phone] [email or web address] right shoulder pain (chief complaint) Pain in right shoulderPrimary osteoarthritis, right shoulder Feb-2 1-201 8 Dinan Mariam. [address] [place] [address], [place], [place], [id number] , [place]. tel:[phone] Referring Provider: Gamal Hong, [facility] [address], [place], [address]. tel:[phone] Office/outpat ient visit,est, [facility], [address] [address], [place], [place], [id number], [place] tel:[phone] [email or web address] Left Shoulder (chief complaint) Presence of left artificial shoulder joint Apr-0 5-201 6 Dinan Mariam. [address] [place] [address], [place], [place], [id number] , [place]. tel:[phone] Office/outpat ient visit,est, [facility], [address] [place] [address], [id number], [place] [phone] [facility] Presence of left artificial shoulder joint Oct-0 5-201 5 Ryan Willett. [address] [place] [address], [place], [place], [id number] , [place]. tel:[phone] [facility], [address] [place] [address], [id number], [place] tel:[phone] [facility] Shoulder replacement status Aug- 0-201 5 Ryan Willett. [address] [facility], [place] [address], [place], [place], [id number] , [place]. tel: [phone] [facility], [address] [address], [place], [place], [id number], [place] [phone] [facility] Shoulder replacement status 5 Ryan Willett. [address] [facility], [place] [address], [place], [place], [id number] , [place]. tel: [phone] [facility], [address], [id number], [place] tel:[phone] [facility] Shoulder replacement status 5 Ryan Willett. [address] [facility], [address], [id number] , [place]. tel: [phone] [facility], [address], [id number], [place] tel:[phone] [facility] Shoulder replacement status 5 Ryan Willett. [address] [facility], [address], [id number] , [place]. tel: [phone] [facility], [address], [id number], [place] tel:[phone] [facility] ARTHROPATHY NOS-SHLDER 5 Frankie Joyce. [address] [facility], [place] [address], [place], [place], [id number] , [place]. tel: [phone] Office/outpat ient visit,new, mod [facility], [address], [id number], [place] tel:[phone] [facility] ARTHROPATHY NOS-SHLDER May- 1 5 Ryan Willett. [address], [id number] , [place]. tel: [phone] Family History Family Member Type Diagnosis Age [...] pa(s) Trisha [employer] Blue Shiel d [facility] [id number] Social History Type Description Quantity Date Captured [...]
--- NOTE | 2024-05-10 09:18 | ECG_ITS ---
Test Date: 2024-05-10 10:11:44 Measurements Intervals [place] Rate: 64 P: 165 [place]: 231 QRS: -26 QRSD: 98 T: 35 QT: 456 QTc: 474 Interpretive Statements ATRIAL FIBRILLATION ANTEROSEPTAL INFARCT, AGE INDETERMINATE CONSIDER INFERIOR INFARCT, AGE INDETERMINATE BASELINE ARTIFACT- I, II, III, AVR, AVL, AVF, V1-V6 ABNORMAL ECG Compared to ECG 05/05/2024 10:39:15 SINUS RHYTHM NO LONGER PRESENT Electronically Signed On 05-10-2024 10:35:18 [employer] by Nolan Andersen D.O.
--- NOTE | 2024-05-10 09:22 | ED_ITS ---
HPI - Fall General Chief Complaint: Fall Stated Complaint: fall Time Seen by Provider: 05/10/24 09:00 History of Present Illness HPI Narrative: 83-year-old male with a history of unsteady gait, AFib on Eliquis, CAD, aortic valve regurgitation with s/p aortic valve replacement, iliac stent and aortic root stenting in the beginning of March at [facility] with post-op complications of aspiration PNA and s/p PEG tube placement, CHF, hypothyroidism, CVA, GARCÍA on CPAP presents to the ED via EMS from home with daughter at bedside for a fall that occurred around 4:00 a.m.. Patient states he got up to go to the bathroom without the assistance of his girlfriend, loss of balance and fell. States he hit his head on the bathroom floor but did not lose consciousness. States he injured his left hip during the fall. He later went to bed, however when he tried to get up at 7:30 a.m. he could not get out of bed. His girlfriend attempted to feed him through his PEG tube but unfortunately the patient immediately vomited. He presents with an abrasion and small laceration with surrounding ecchymosis to the left forehead. Patient also found to be hypotensive upon arrival. Daughter at bedside states patient's systolic blood pressure ranges anywhere between 100-124. Also notes the patient has been undergoing treatment for hyponatremia, reportedly his sodium is normally mid 120s. The patient denies any chest pain or shortness of breath, back pain or other injuries are. He is reporting some shortness of breath earlier today but that has since resolved. Denies lower extremity edema. States he has a unsteady gait and is supposed to asked his girlfriend to assist him while walking but did not want to in the middle of the night. Related Data Home Medications ?Medication ?Instructions ?Recorded ?Confirmed ?Last Taken ?Type acetaminophen 500 mg capsule 1,000 mg PO Q6H PRN pain 03/27/24 05/06/24 03/27/24 History latanoprost 0.005 % eye drops 1 drp RIGHT EYE QPM 03/27/24 05/06/24 05/04/24 History Allergies Allergy/AdvReac Type Severity Reaction Status Date / Time eszopiclone Allergy Unknown Unknown Verified 05/06/24 13:00 sulfamethoxazole (From AdvReac Unknown Rash Verified 05/06/24 13:00 Bactrim) trimethoprim (From Bactrim) AdvReac Unknown Rash Verified 05/06/24 13:00 Review of Systems 2 Review of Systems: All systems reviewed & are unremarkable except as noted in HPI and below PMFSH Past Medical History Medical History Peripheral neuropathy Chronic constipation Aortic root aneurysm Iliac artery aneurysm Bilateral CHF (congestive heart failure) Diverticulosis Internal hemorrhoids Insomnia Anxiety Depression Left wrist fracture Left rotator cuff tear Arthritis Esophageal stricture GERD (gastroesophageal reflux disease) Hiatal hernia Rectal polyp Sleep apnea DVT (deep venous thrombosis) MVP (mitral valve prolapse) Pulmonary embolism Hypothyroidism Surgical History Surgical History Hx of ascending aorta replacement H/O thyroidectomy H/O right wrist surgery H/O left wrist surgery H/O repair of left rotator cuff H/O prostatectomy Hx of tonsillectomy History of partial thyroidectomy Status post left rotator cuff repair S/P TURP H/O shoulder replacement Family History Family History Mother Cerebrovascular accident Sibling Family history of coronary artery disease Social History Social History Social History: Smoking packs per day: 0.5 Smoking cigarettes per day: 10.0 Years smoked: 20 Smoking pack-years: 10.00 Smoking status: Former smoker Tobacco type: cigarettes Second hand tobacco smoke exposure: Yes Smoking end date: 03/17/81 Alcohol intake: former Substance use: never Substance use type: does not use Do You Feel Safe in your Home?: Yes Lack of Transportation: No Lack of Food: Never True Current Housing: I Have Housing Concerned About Future Housing: No Difficulty Paying Gas/Electric Bills: No Difficulty Paying for Meds: No Currently Unemployed: YES Education: Master's Degree or Higher Difficulty w/ Childcare or Family Care: No Living arrangements: with family Occupation/Education: retired Gender identity (if verbalized by the patient): Male Sexual Orientation (if Verbalized by the Patient): Straight or Heterosexual Spiritual care concerns: No Exam 2 Narrative: GENERAL: Well-appearing, well-nourished, and in no acute distress. HEAD: Normocephalic EYES: PERRLA and EOMI. ENT: Nares clear, no rhinorrhea or epistaxis. Mucous membranes moist. NECK: Supple. No midline cervical spinous tenderness, crepitus, step-offs or deformities BACK: No midline thoracolumbar spinous tenderness, crepitus, step-offs or deformities CHEST: Clear to auscultation. No respiratory distress. HEART: Regular rate and rhythm. No murmur heard. Normal peripheral pulses. ABDOMEN: Soft, nontender, nondistended, normal active bowel sounds. Peg tube in place with no surrounding skin changes EXTREMITIES: Diffuse tenderness to the left hip and lateral aspect of the thigh with firmness to this region, compartments remain soft, no overlying skin changes or ecchymosis. DP pulses dopplered without difficulty. Trace edema to bilateral ankles SKIN: 0.5 superficial laceration just superior to the left eyebrow, large abrasion to the left forehead with surrounding ecchymosis, no deep structures or foreign bodies visualized, no active bleeding NEURO: No focal deficits. Alert and oriented x3. Moving all extremities spontaneously Course Vital Signs Vital signs: Vital Signs Temperature 97.7 F 05/10/24 08:50 Pulse Rate 75 05/10/24 08:50 Respiratory Rate 18 05/10/24 08:50 Blood Pressure 71/39 L 05/10/24 08:50 Pulse Oximetry 99 05/10/24 08:50 Temperature 97.7 F 05/10/24 08:50 Pulse Rate 70 05/10/24 14:05 Respiratory Rate 20 05/10/24 14:05 Blood Pressure 100/72 05/10/24 14:05 Pulse Oximetry 99 05/10/24 14:05 Oxygen Delivery Room Air 05/10/24 09:01 Procedures Laceration Laceration 1: Date: 05/10/24 Time: 09:31 Site: scalp Side (If applicable): left Size (cm): 0.5 Description: irregular Depth: simple, single layer Pre-repair: wound explored and irrigated ====== Skin Level ====== Skin layer closed with: dermabond ====== Subcutaneous Layer ====== ====== Muscle Layer ====== ====== Tendon Layer ====== MDM - Fall MDM Narrative Medical decision making narrative: 83-year-old male presents to the emergency department after a ground level fall that occurred at 4:00 a.m. this morning. See HPI for further history. Triage vitals remarkable for hypotension of 71/39 which is improved on repeat to 92/65. Patient is afebrile nontoxic appearing. Exam is significant for the above. Given complicated recent hx paired with hypotension, will obtain CTA chest/abd/pelvis to evaluate for postoperative complication and vascular pathology, in addition to LLE CT runoff to evaluate for developing hematoma per exam noted above, labs, coags, EKG, trop, CT brain. Tdap updated laceration closed with skin glue without complications. EKG shows AFib with rate 64 ppm, Q-waves in the inferior leads, no ST elevations or depressions. Troponin undetectable. CBC without leukocytosis, chronic anemia with a hemoglobin of 9.4. Chemistries with chronic hyponatremia 123 which is near patient's baseline. TSH is elevated 14.3, reflex to T4 pending. UA with trace leuk esterase and 6-10 wbc's, no rbc's, no nitrites. Urine culture pending. Patient denies symptoms of UTI, will refrain from treatment until urine culture results. CT brain shows small infarcts in the left frontal lobe, stable moderate nonspecific cerebral white matter disease. CT cervical spine shows no fracture, severe cervical spondylosis. CTA chest shows small left pleural effusion. CTA abdominal aortic runoff shows pseudoaneurysm at the junction of the left vastus intermedius and vastus lateralis muscle with enlargement of the muscles consistent with hematoma. This is consistent with patient's exam. 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 Patient family updated on results. Patient received a L of fluids with improvement of blood pressure to 130/59. Left lateral thigh with mildly increased firmness, however compartments still remains soft. Plan to transfer for trauma and vascular surgery. Discussed with ED [facility] the physician, Dr. Soliz who accepts patient. Pt left our department in stable condition. Lab Data 05/10/24 09:24 05/10/24 09:24 Labs: Lab Results 05/10/24 05/10/24 05/10/24 Range/Units 09:23 09:24 10:26 WBC 6.1 (4.5-10.0) K/mm3 RBC 3.26 L (4.6-6.20) M/mm3 Hgb 9.4 L (14.0-18.0) g/dL Hct 28.0 L (42.0-52.0) % MCV 85.9 (80-100) fl MCH 28.8 (26-34) pg MCHC 33.6 (32-36) g/dl RDW 15.7 H (11.5-14.5) % Plt Count 161 (150-375) k/mm3 MPV 9.7 (7.4-10.4) fl Immature Gran % (Auto) 0.2 (0-0.5) % Neut % (Auto) 67.9 (45.5-73.1) % Lymph % (Auto) 13.0 L (18.3-44.2) % [place] % (Auto) 13.2 H (2.6-8.5) % Eos % (Auto) 4.4 (0-4.4) % Baso % (Auto) 1.3 H (0.2-1.2) % Lymph # (Auto) 0.79 L (0.9-3.2) K/mm3 [place] # (Auto) 0.8 H (0.1-0.6) K/mm3 Eos # (Auto) 0.3 (0-0.3) K/mm3 Baso # (Auto) 0.1 (0.0-0.1) K/mm3 Abs Immat Gran (auto) 0.01 (0.00-0.031) K/mm3 Absolute Neuts (auto) 4.1 (1.3-6.7) K/mm3 Absolute Nucleated RBC 0.000 (0.0-0.012) K/mm3 Nucleated RBC % 0.0 (0.0-0.2) % PT 18.1 H (11.1-14.7) Seconds INR 1.4 APTT 41.6 H (22.3-36.8) Seconds Sodium 123 L (137-145) mmol/L Potassium 4.6 (3.4-5.0) mmol/L Chloride 91 L (98-107) mmol/L Carbon Dioxide 23 (22-30) mmol/L Anion Gap 9 (4-12) mmol/L BUN 21 H (9-20) mg/dL Creatinine 0.90 (0.7-1.3) mg/dL Estim Creat Clear Calc 36 ml/min Estimated GFR > 60 (59 - ) Glucose 106 (65-110) mg/dL Calcium 8.5 (8.4-10.2) mg/dL Magnesium 1.8 (1.6-2.3) mg/dL Total Bilirubin 0.7 (0.2-1.3) mg/dL AST 37 (17-59) U/L ALT 27 (6-50) U/L Alkaline Phosphatase 108 (38-126) U/L Troponin I < 0.012 (0.000-0.034) ng/mL NT-Pro-B Natriuret Pep 2370 H (19.9-100) pg/mL Total Protein 6.0 L (6.3-8.2) g/dL Albumin 3.4 L (3.5-5.1) g/dL TSH (Reflex) 14.300 H (0.465-4.68) uIU/mL Free T4 0.77 L (0.78-2.19) ng/dL Urine Color Yellow (Yellow) Urine Appearance Cloudy H (Clear) Urine pH 7.5 (5.0-9.0) Ur Specific [place] 1.017 (1.001-1.035) Urine Protein Negative (Negative) mg/dL Urine Glucose (UA) Negative (Negative) mg/dL Urine Ketones Negative (Negative) mg/dL Ur Blood (Man) Negative (Negative) Urine Nitrate Negative (Negative) Urine Bilirubin Negative (Negative) Urine Urobilinogen 0.2 (<2.0) mg/dL Leukocyte Esterase Rfl Trace H (Negative) LYNDSAY/UL Urine RBC 0-2 (0-2) /hpf Urine WBC 6-10 H (0-3) /hpf Ur Squamous Epith Cells None seen (Few) /hpf Urine Bacteria None seen /hpf Urine Casts 3-5 Discharge Plan Discharge Clinical Impression: Pseudoaneurysm, Hematoma, Laceration Contusion Qualifiers: Encounter type: initial encounter Contusion area: head Laterality: left Patient Disposition: Acute Care Hospital Condition: Serious Patient Language: Sierra Leonean Prescriptions: No Action Gemtesa 75 mg tablet 75 mg PO DAILY Qty: 30 5RF doxycycline monohydrate 25 mg/5 mL suspension for reconstitution 100 mg feeding tube BID 4 Days Qty: 160 0RF amoxicillin-pot clavulanate 400-57 mg/5 mL suspension for reconstitution 10 ml PO BID 4 Days Qty: 80 0RF levothyroxine 88 mcg tablet 88 mcg feeding tube DAILY@0500 Qty: 30 5RF acetaminophen 500 mg capsule 1,000 mg PO Q6H PRN (Reason: pain) latanoprost 0.005 % drops 1 drp RIGHT EYE QPM amiodarone [Pacerone] 200 mg Tablet 100 mg feeding tube DAILY Qty: 30 0RF buspirone 10 mg Tablet 5 mg feeding tube BID Qty: 60 0RF aspirin [Children's Aspirin] 81 mg Tablet,Chewable 81 mg feeding tube DAILY Qty: 30 0RF calcium carbonate 500 mg calcium (1,250 mg) Tablet,Chewable 200 mg PO Q6H PRN (Reason: Indigestion) Qty: 0 0RF Eliquis 5 mg Tablet 5 mg feeding tube Q12HR Qty: 60 0RF midodrine 5 mg Tablet 5 mg feeding tube TIDAC Qty: 90 0RF cyanocobalamin (vitamin B-12) [Vitamin B-12] 1,000 mcg Tablet 1,000 mcg feeding tube DAILY Qty: 30 0RF melatonin 3 mg Tablet 6 mg PO HS Qty: 0 0RF Patient Comments: as needed mirtazapine [Remeron] 15 mg Tablet 22.5 mg feeding tube HS Qty: 30 0RF rosuvastatin [Crestor] 10 mg Tablet 20 mg feeding tube QAM Qty: 30 0RF sodium chloride 1,000 mg Tablet,Soluble 1,000 mg feeding tube BID Qty: 60 0RF Patient Comments: took 3 yesterday and 2 this morning oxybutynin chloride 5 mg Tablet 5 mg feeding tube DAILY Qty: 30 0RF Follow-up/Referrals: Martinez Pace MD [Primary Care Provider] -
[2024-05-10 09:29] LABS: Basophils Absolute Auto 0.1 K/mm3 (0.0-0.1); Basophils Percent Auto 1.3 % (0.2-1.2); Eosinophils Absolute Auto 0.3 K/mm3 (0-0.3); Eosinophils Percent Auto 4.4 % (0-4.4); Hemoglobin 9.4 g/dL (14.0-18.0); Immature Granulocyte Absolute 0.01 K/mm3 (0.00-0.031); Immature Granulocyte Percent A 0.2 % (0-0.5); Lymphocytes Absolute Auto 0.79 K/mm3 (0.9-3.2); Mean Corpuscular HGB Conc 33.6 g/dl (32-36); Mean Corpuscular Hemoglobin 28.8 pg (26-34); Mean Corpuscular Volume 85.9 fl (80-100); Mean Platelet Volume 9.7 fl (7.4-10.4); Monocytes Absolute Auto 0.8 K/mm3 (0.1-0.6); Monocytes Percent Auto 13.2 % (2.6-8.5); Neutrophils Absolute Auto 4.1 K/mm3 (1.3-6.7); Neutrophils Percent Auto 67.9 % (45.5-73.1); Platelet Count Result 161 k/mm3 (150-375); Red Blood Count 3.26 M/mm3 (4.6-6.20); Red Cell Distribution Width 15.7 % (11.5-14.5); White Blood Count 6.1 K/mm3 (4.5-10.0)
[2024-05-10] MEDS: TETANUS,DIPHTHERIA,AC PERTUSSIS ADULT (0.5 ML) BOOSTRIX IM (09:29)
[2024-05-10] MEDS: SODIUM CHLORIDE 0.9% IV 500 ML 999 ML IV CONT (09:29)
[2024-05-10 09:41] LABS: INR 1.4; Prothrombin Time 18.1 Seconds (11.1-14.7)
[2024-05-10 09:42] LABS: Partial Thromboplastin Time 41.6 Seconds (22.3-36.8)
[2024-05-10 10:36] LABS: Alanine Aminotransferase 27 U/L (6-50); Albumin Level 3.4 g/dL (3.5-5.1); Alkaline Phosphatase 108 U/L (38-126); Anion Gap 9 mmol/L (4-12); Aspartate Amino Transferase 37 U/L (17-59); Bilirubin,Total 0.7 mg/dL (0.2-1.3); Blood Urea Nitrogen 21 mg/dL (9-20); Calcium 8.5 mg/dL (8.4-10.2); Carbon Dioxide 23 mmol/L (22-30); Chloride 91 mmol/L (98-107); Estimated CRCL calculation 36 ml/min; Estimated Glomerular Filt Rate > 60; Glucose 106 mg/dL (65-110); Magnesium 1.8 mg/dL (1.6-2.3); Potassium 4.6 mmol/L (3.4-5.0); Sodium 123 mmol/L (137-145)
--- OUTSIDE RECORDS SUMMARY | 2024-05-10 10:36 | XMS_ITS | Patient Health Record ---
Author Organization [facility] Address [address] [facility] [address] [place] [address] Care Team Providers Care Yacht Rigger Name Role Phone Carli Figueroa Unavailable [phone] Lola Arenas Unavailable [phone] Migration, Provider Unavailable Unavailable Allergies No Known [...] Master's degree (e.g., MA, MS, Ashley, MEd, SERVICE ARCHITECT, NICK)Are you currently employed?: NoWho is your [...] NoDo you have a medical power of civil rights attorney?: No Social History Substance UseDo you or [...] Master's degree (e.g., MA, MS, Ashley, MEd, SERVICE ARCHITECT, NICK)Are you currently employed?: NoWho is your [...] NoDo you have a medical power of civil rights attorney?: No Problems Problem Type SNOMED Code ICD Code Onset Dates Problem Status W/U Status Risk Notes Problem Mild recurrent major depression (26650894) Major depressive disorder, recurrent, mild (F33.0) 4 Active confirmed Problem Anxiety disorder (242464218) Anxiety disorder, unspecified (F41.9) 4 Active confirmed Problem Chronic insomnia (617202158) Chronic insomnia (F51.04) Active confirmed Problem Recurrent major depression (10252120) Depression, major, recurrent, 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) Active confirmed Vital Signs Heart Rate 55 /min 03/08/2024 Height-cm 172.72 cm 03/08/2024 Blood pressure diastolic 70 mm Hg 03/08/2024 Weight-kg 74.84 kg 03/08/2024 Height 68.00 in 03/08/2024 Blood pressure systolic 120 mm Hg 03/08/2024 Weight 165.0 lbs 03/08/2024 BMI 25.09 kg/m2 03/08/2024 Encounters Encounter Location Date Provider Diagnosis [facility] [address] [facility] [address] [place] [address] 06/10/2023 Lola Arenas Anxiety disorder, unspecified F41.9 ; Major depressive disorder, recurrent, mild F33.0 and Psychophysiologic insomnia F51.04 [facility] [address] [address] 09/10/2023 Lola Deepa Major depressive disorder, recurrent, mild F33.0 ; Anxiety disorder, unspecified F41.9 and Chronic insomnia F51.04 [facility] [address] [address] 03/08/2024 Carli Figueroa Depression, major, recurrent, in remission F33.40 ; Anxiety disorder, unspecified F41.9 and Chronic insomnia F51.04 [place] [address] [address] 05/15/2023 Provider Migration [facility], [facility] [address] [address] 05/16/2023 Provider Migration [facility], [facility] [address] [address] 06/03/2023 Provider Migration [facility], [facility] [address] [address] 08/02/2023 Provider Migration [facility], [facility] [address] [address] 08/03/2023 Provider Migration [facility], [facility] [address] [address] 01/28/2024 Carli Figueroa Major depressive disorder, recurrent, mild F33.0 [facility] [address] [address] 01/28/2024 Carli Figueroa Major depressive disorder, recurrent, [...] Details Provider Name:Carli rivas, 08/06/2024 01:00:00 PM, [address], [facility] [address], [place], [address], Insurance Providers Payer Name Payer Address Payer Phone Subscriber Number Group Number Insured Name Patient Relationship to Insured Coverage Start Date Coverage End Date [employer] [employer] [address] [place] [address] [id number] GIAN LEE Self - patient is the insured Medical (General) History Medical History History ICD Code Problems: Anxiety Chronic insomnia Mild recurrent major depression , Surgical History Surgery Date(Month/Year) Reconstructive surgery bilateral shoulde rs 2011 and 201503/17/2015 hammer toe surgery rt foot
--- OUTSIDE RECORDS SUMMARY | 2024-05-10 10:36 | XMS_ITS | CONTINUITY OF CARE DOCUMENT ---
Author Name meet dsouza Address Unknown Organization [facility] Address [address] [place] [address] [address] [place] [address] Phone [phone] Care Team Providers Care Swatch Checker Name Role Phone Dion Abraham MD Unavailable ERIN VAZ MD Unavailable [phone] ERIN VAZ MD Unavailable PROBLEMS Condition Status Date Provider Notes PVD; active Dion Abraham MD CAD active Dion Abraham MD Aneurysm of iliac artery active Dion beebe MD Pulsatile tinnitus, bilateral completed - Dion Abraham MD Aortic root aneursymnm active Dion Abraham MD BACK PAIN;CHRONIC active Dion Abraham MD Prostatism active Dion Abraham MD CVA;lacuanr;plaquing active Dion Light Cerebral atherosclerosis active Dion beebe MD FAMILY HISTORY OF HEART DISEASE active Dion Abraham MD [place], mot [place] pace Tobacco use, quit active Dion Abraham MD t oo rmeot to screen Screening active Dion Abraham MD Hyperlipidemia;NEG CRP;lpa 142 active Dion Abraham MD Hypothyroidism active Dion Abraham MD part ial thryoidcmty AV block, 1st degree;not due drugs;neg tsh active Dion Abraham MD Arrhythmia;NML TSH active Dion suarez carterner Hx of pulmonary embolism active Dion beebe MD History of deep venous thrombosis active Dion Abraham MD Sleep apnea active Dion Abraham MD Aortic aneurysm completed - Dion Abraham MD Valvular heart disease active Dion Abraham MD Neuropathic pain active Dion Abraham MD lo w b12, neg rpr B12 deficiency active Dion Abraham MD neg foalte Diastolic CHF active Dion Abraham MD lowew [address] ENCOUNTERS Date Type Provider Location Encounter Diag nosis - In-person encounter Office Visit Fredrick Peña MD [facility] - In-person encounter Office Visit Dion Abraham MD [facility] Pulsatile tinnitus, bilateral - In-person encounter Office Visit Dion Abraham MD [facility] Neuropathic painAortic aneurysmTobacco use, quitAortic root aneursymnm - In-person encounter Office Visit Dion Abraham MD [facility] B12 deficiencyArrhythmia;NML TSHScreeningTobacco use, quitFAMILY HISTORY OF HEART DISEASECerebral atherosclerosisCVA;lacuanr; plaquingProstatismBACK PAIN;CHRONIC - In-person encounter Office Visit Dion Abraham MD [facility] Sleep apneaHistory of deep venous thrombosisHx of pulmonary embolismArrhythmia;NML TSHAV block, 1st degree;not due drugs;neg tshHypothyroidismHyperlipid emia;NEG CRP;lpa 142 - In-person encounter Office Visit Dion Abraham MD [facility] Diastolic CHFB12 deficiencyNeuropathic painValvular heart diseaseAortic aneurysm VITAL SIGNS Date Observation Value Provider Body Mass Index (Ratio) 24.84 kg/m2 Renato [employer] ENGINEER weight E&M 163.4 [lb_av] Evan Jonathan blood pressure, diastolic 65 mm[Hg] Riaz pizarro Jonathan blood pressure, systolic 109 mm[Hg] Riazl dahlia Jonathan oxygen saturation, oximetry 97 % Evan Huffmanam pulse rate 65 /min Evan Jonathan respiratory rate E&M 14 /min Evan stallworth blood pressure, cuff size regular Riaz pizarro Tillar height E&M 68 [in_i] Evan Tillar Body Mass Index (Ratio) 24.93 kg/m2 Ana Abraham MD blood pressure, diastolic 60 mm[Hg] Manjinder anderson [facility] blood pressure, systolic 100 mm[Hg] Daphnie comer [facility] blood pressure, cuff size regular Manjinder anderson [facility] oxygen saturation, oximetry 92 % Roberta [facility] pulse rate 62 /min Roberta [facility] weight E&M 164 [lb_av] Roberta [facility] height E&M 68 [in_i] Roberta [facility] Body Mass Index (Ratio) 24.17 kg/m2 Ana Abraham MD pulse rate 59 /min Dee Borja blood pressure, cuff size regular [facility], diastolic 68 mm[Hg] Ta bitha [place] blood pressure, systolic 114 mm[Hg] Tab itha [...] Ja rret blood pressure, systolic 123 mm[Hg] [facility] pulse rate 55 /min Russel oxygen saturation, oximetry 93 % Russel respiratory rate E&M 14 /min Russel weight E&M 162 [lb_av] Russel y height [...] er height E&M 68 [in_i] Delilah Carmen [facility] ALLERGIES No Known Drug Allergies HISTORY OF [...] alcohol use, type gin Jaylene Na lluri [employer] ENGINEER alcohol use yes Jaylene Nall[employer] ENGINEER smoking, year quit 1971 Jaylene N alluri [employer] ENGINEER number of years as a smoker 20 a Jaylene Nall[employer] ENGINEER smoking history, total pack/day 1.5 ppd Jaylene [employer] ENGINEER cigarette use yes Jaylene Nallur i [employer] ENGINEER smoking status Former smoker Jaylene Sterling uri [employer] ENGINEER personal history of marijuana use no [...] history of marijuana use no Verah Bonareri [employer] ENGINEER drug use no Verah [employer] ENGINEER alcohol use, average drinks per day 2 /d Verah [employer] ENGINEER alcohol use, type gin Verah Janelle reri [employer] ENGINEER alcohol use yes Verah Bon[employer] ENGINEER smoking, year quit 1971 Vermauricio Bon areri [employer] ENGINEER number of years as a smoker 20 a Verah Bonareri [employer] ENGINEER smoking history, total pack/day 1.5 ppd Verah Bonareri [employer] ENGINEER cigarette use yes Verah Bonareri [employer] ENGINEER smoking status Former smoker Verah Bonare ri [employer] ENGINEER drug use no Tara Ventimig juarez [facility] alcohol use, type gin Tara Boyd timiglia [facility] alcohol use, average drinks per day 2 /d Tara Ventimiglia 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 alcohol use yes Tara Ventimig juarez 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 number of years as a smoker 20 a Delilah Udayer smoking history, total pack/day 1.5 ppd Delilah Udayer smoking, year quit 1971 Delilah doll cigarette use yes Delilah Maryellen keane smoking status Former smoker Delilah Bradford nfelder FUNCTIONAL STATUS Date Observation Value Provider HRA, CV Assess/Plan, Angina (inactive) Management Plan continue current therapy Jaylenelucila [employer] ENGINEER HRA, CV Assess/Plan, Angina (inactive) Management Plan continue current therapy Dion Abraham MD HRA, CV Assess/Plan, Angina (inactive) Management Plan continue current therapy Dion Abraham MD INSURANCE PROVIDERS Payer name Policy type / Coverage type [place] red [employer] party ID [facility] [id number] ADVANCE DIRECTIVES Name Date DISCUSSED - NO DECISION MADE TREATMENT PLAN Date Name Performer [id number],C,[facility]aceme nt [facility] [id number],C,Will add magen min B12 [facility] [id number],C,R eported history of MVP will do f/u echo [facility] [id number],C,A t 44 mm per echo 2 years ago at [place]. Will do f/u echo for further evalution. continue BP control and statin therapy [facility] [id number],C,F ound on recent imaging at [facility]. Patient reports at 3.3cm. We will obtain report. If stable will plan for follow up imaging in a year. Patient BP well controlled at visit today. Will add statin as LDL 110. Taramaryann Montesinos [facility] Cardiology: a dd replacement therapy Jaylene Nalluri [employer] ENGINEER Cardiology: H is updated medication list for this problem includes: Rosuvastatin 10 Mg Tablet (Rosuvastatin) ..... Take 1 tablet by mouth once a day Jaylene Nalluri [employer] ENGINEER Cardiology: p ro 328, ef 40 by cath Jaylene Erasmoluri PLC ENGINEER Cardiology: T he patient is using CPAP on a regular basis. The patient has been benefiting from therapy and should continue use. Jaylene [employer] ENGINEER Cardiology: s everre pvd dital righ leg B TK Jaylene Nalluri [employer] ENGINEER Cardiology:Stable with no angina Jaylene Nalluri [employer] ENGINEER Cardiology: 5 .4 f piper with [...] :nm psa pre pt Dion Abraham MD Cardiology;[facility] with root aand aaa gram : 3 .5 by 4.5 left iliac, neg aaa Dion Serotjared SIEGEL Cardiology;[facility] with root aand aaa gram :no gall stone n eg aaa m eg streeed 2020 per pt n eg egfr, neg a1c and uacr Dion Serotjared SIEGEL Cardiology;[facility] with root a and aaa gram Dion Abraham MD Cardiology;[facility] with root aand aaa gram : 5 .4 Dion Serotjared SIEGEL Cardiology;[facility] with root aand aaa gram : a ve 56 low 36 t acky braday n svt and svt Dion Abraham MD Cardiology;[facility] with root aand aaa gram : 5 .4 Dion Serotjared SIEGEL Cardiology;[facility] with root aand aaa gram : [...] NP Cardiology:add replacement thera py Tara Ventimiglia [facility] Cardiology:Will add vitamin B12 Tara Ventimiglia [facility] Cardiology:Reported history of M OBSTETRICS SPECIALIST will do f/u echo Tara Ventimiglia [facility] Cardiology:At 44 mm per echo 2 years ago at [place]. Will do f/u echo for further evalution. continue BP control and statin therapy Tara Montesinos [facility] Cardiology:Found on recent imaging at [facility]SH. Patient reports at 3.3cm. We will obtain report. If stable will plan for follow up imaging in a year. Patient BP well controlled at visit today. Will add statin as LDL 110. Tara Montesinos [facility] Date Name PROTHROMBIN TIME WIT H INR [...] d on Dion Abraham MD [facility] NPR PER MATTHEW REF#: [id number] completed EKG Dion Abraham MD complete d EKG Dion Abraham MD complete d
--- OUTSIDE RECORDS SUMMARY | 2024-05-10 10:36 | XMS_ITS | Encounter Summary ---
Author Organization [facility] Address [address] [place] [address] Care Team Providers Care Fleet Coordinator Name Role Phone Martinez Pace MD Primary Care Provider Dion Abraham MD Unavailable [phone] Basil Adhikari MD Unavailable [phone] Encounter Details Date Type Department Care Team (Late st Contact Info) Description 06/11/2017 Telephone [facility] Operating Room [address] [place] [address] Sara Tipton Social History Tobacco Use Types Packs/Day Years Used Date Smoking Tobacco: Former Alcohol Use Standard Drinks/Week Comments Yes 0 (1 standard drink = 0.6 oz pur e alcohol) Sex and Gender Information Value Date Recorded Sex Assigned at Not on file Legal Sex Male 12:56 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 Gender Identity Not on file Sexual Orientation Straight 10/21/2019 9: 52 AM CDT documented as of this encounter Plan of Treatment Not on file documented as of this encounter Visit Diagnoses Not on filedocumented in this encounter Care Teams Fleet Coordinator Relationship Specialty Start Date End Date Martinez Pace MD [address] [facility] [address] [place] [address] PCP - General 05/02/16 Dion Abraham MD [address] [place] [address] Referring Physician Cardiology 02/18/24 Basil Adhikari MD [address] [facility] [address] [place] [address] Consulting Physician Cardiothoracic Surgery 02/19/24 documented as of this encounter
--- OUTSIDE RECORDS SUMMARY | 2024-05-10 10:36 | XMS_ITS ---
Author Organization [facility] Address [address] [place] [address] Care Team Providers Care Nursing Resident Name Role Phone Martinez Pace MD Primary Care Provider Dion Abraham MD Unavailable [phone] Basil Adhikari MD Unavailable Active Problems Problem Noted Date Diagnosed Date [...] (11/24/2018): Added automatically from request for surgery [id number] Adenomatous polyp of cecum 06/18/2018 Overview (06/18/2018): Added automatically from request for surgery [id number] correction current use of anticoagulant therapy 0 11/07/2016 [...]
--- OUTSIDE RECORDS SUMMARY | 2024-05-10 10:36 | XMS_ITS | Continuity of Care Document ---
Author Organization [facility] Address [address] [place] [address] Phone Care Team Providers Care Director Business Integration Name Role Phone Brennon Davis MD Unavailable [...] Office/outpatient visit,est, mod 2017 Office/outpatient visit,est, [facility] 2017 X-ray exam shoulder minimum 2 views Office/outpatient visit,est, low 2015 Office/outpatient visit,est, low 2014 Global/Postop followup visit Global/Postop followup visit X-ray exam shoulder minimum 2 views Global/Postop followup visit Office/outpatient visit,[facility], [facility] 2014 Advance Directives Directive Yes / No Effective Date File Name No Information Encounters Encounter Description Practice Location Reason(s) For Visit Diagnoses Date Provider Providers Copied on Encounter [facility], [address], [place], [place], [id number], [place] tel:[phone] [facility] Bilateral Shoulders (chief complaint) Presence of left artificial shoulder jointPresence of right artificial shoulder joint May-0 6-201 9 Ryan Willett. [address] [facility] [place] [address], [place], [place], [id number] , [place]. tel:[phone] Referring Provider: Gamal Hong, [address] [facility] [address], [place], [address]. tel:[phone] [facility], [address] [address], [place], [place], [id number], [place] [phone] [facility] Right shoulder (chief complaint) Presence of right artificial shoulder joint Aug-0 3-201 8 Ryan Brennon. [address] [facility], [place] [address], [place], [place], [id number] , [place]. tel: [phone] [facility], [address] [address], [place], [place], [id number], [place] tel:[phone] [facility] Right shoulder (chief complaint) Presence of right artificial shoulder joint Gibson-2 0-201 8 Ryan Brennon. [address] [facility], [place] [address], [place], [place], [id number] , [place]. tel: [phone] [facility], [address], [id number], [place] [phone] [facility] right shoulder (chief complaint) Presence of right artificial shoulder joint May-2 3-201 8 Ryan Brennon. [address] [facility], [facility] [address], [place], [place], [id number] , [place]. tel: [phone] [facility], [address] [address], [place], [place], [id number], [place] [phone] [facility] Primary osteoarthritis, right shoulder Apr-1 6-201 8 Ryan Willett. [address] [facility], [place] [address], [place], [place], [id number] , [place]. tel: [phone] Office/outpat ient visit,est, mod [facility], [address] [address], [place], [place], [id number], [place] tel:[phone] [facility] Right Shoulder (chief complaint) Primary osteoarthritis, right shoulder Feb-2 6-201 8 Ryan Willett. [address] [address], [place], [place], [id number] , [place]. tel:[phone] Office/outpat ient visit,est, [facility], [address] [address], [place], [place], [id number], [place] [phone] [facility] right shoulder pain (chief complaint) Pain in right shoulderPrimary osteoarthritis, right shoulder Feb-2 1-201 8 Dinan Mariam. [address] [place] [address], [place], [place], [id number] , [place]. tel:[phone] Referring Provider: Gamal Hong, [facility] [address], [place], [address]. tel:[phone] Office/outpat ient visit,est, [facility], [address] [address], [place], [place], [id number], [place] tel:[phone] [facility] Left Shoulder (chief complaint) Presence of left artificial shoulder joint Apr-0 5-201 6 Dinan Mariam. [address] [place] [address], [place], [place], [id number] , [place]. tel:[phone] Office/outpat ient visit,est, [facility], [address] [place] [address], [id number], [place] [phone] [facility] Presence of left artificial shoulder joint Oct-0 5-201 5 Ryan Willett. [address] [place] [address], [place], [place], [id number] , [place]. tel:[phone] [facility], [address] [place] [address], [id number], [place] tel:[phone] [facility] Shoulder replacement status Aug- 0-201 5 Ryan Willett. [address] [facility], [place] [address], [place], [place], [id number] , [place]. tel: [phone] [facility], [address] [address], [place], [place], [id number], [place] [phone] [facility] Shoulder replacement status 5 Ryan Willett. [address] [facility], [place] [address], [place], [place], [id number] , [place]. tel: [phone] [facility], [address], [id number], [place] tel:[phone] [facility] Shoulder replacement status 5 Ryan Willett. [address] [facility], [address], [id number] , [place]. tel: [phone] [facility], [address], [id number], [place] tel:[phone] [facility] Shoulder replacement status 5 Ryan Willett. [address] [facility], [address], [id number] , [place]. tel: [phone] [facility], [address], [id number], [place] tel:[phone] [facility] ARTHROPATHY NOS-SHLDER 5 Frankie Joyce. [address] [facility], [place] [address], [place], [place], [id number] , [place]. tel: [phone] Office/outpat ient visit,new, mod [facility], [address], [id number], [place] tel:[phone] [facility] ARTHROPATHY NOS-SHLDER May- 1 5 Ryan Willett. [address], [id number] , [place]. tel: [phone] Family History Family Member Type Diagnosis Age [...] Unspecified Payers Payer name Insurance type Covered alliance party ID Maryjared pa(s) Trisha Blue Cross Blue Shiel d [facility] [id number] Social History Type Description Quantity Date Captured [...]
--- OUTSIDE RECORDS SUMMARY | 2024-05-10 10:37 | XMS_ITS | Referral Summary ---
Author Organization [facility] al Address [address] [place] [address] Care Team Providers Care Office Worker Name Role Phone Martinez Pace MD Primary Care Provider Dion Abraham MD Unavailable [phone] Basil Adhikari MD Unavailable [phone] Encounters Date Type Department Care Team Description 04/03/2024 9:45 AM ASSISTANT THERAPY AIDE - 04/20/2024 3:00 PM ASSISTANT THERAPY AIDE Hospital Encounter [facility] [address] [place] [address] Pedro Senior MD Martin, Robert [...] to an Rehab facility 04/16/2024 9:04 AM ASSISTANT THERAPY AIDE Anesthesia Event [facility] [address] [place] [phone] Sara Schwartz MD Shelley, Joshua Michael, CRNA 04/16/2024 9:00 AM ASSISTANT THERAPY AIDE - 04/16/2024 9:45 AM ASSISTANT THERAPY AIDE Surgery [facility] [address] [place] [phone] Roderick Bedolla MD PERCUTANEOUS ENDOSCOPIC GASTROSTOMY 04/09/2024 Orders Only [facility] [address] [place] [address] [address] [place] [address] Ev Freed NP Aneurysm of ascending aorta without rupture (HCC) (Primary Dx); Iliac aneurysm (CMS/HCC) (HCC); Aortic root aneurysm; Other pulmonary embolism without acute cor pulmonale, unspecified chronicity (HCC) 04/03/2024 Orders Only [facility] Hospitalists [address] [place] [phone] Zoran Leyva DO 03/30/2024 Orders Only Cardiovascular and Thoracic Surgery [address] [place] [address] [address] [place] [address] Candis Chaparro RN Aneurysm of ascending aorta without rupture (HCC) (Primary Dx); Iliac artery aneurysm (CMS/HCC) (HCC) 03/29/2024 Telephone Cardiovascular and Thoracic Surgery [address] [place] [address] [address], [place] [address] Basil Adhikari MD 03/18/2024 9:05 AM ASSISTANT THERAPY AIDE - 03/27/2024 3:13 PM ASSISTANT THERAPY AIDE Hospital Encounter [address] [phone] Basil Adhikari MD Iliac aneurysm (CMS/HCC) (HCC) (Primary Dx); Aortic root aneurysm; S/P AVR Discharge Disposition: Discharge to an Rehab facility 03/22/2024 2:54 PM ASSISTANT THERAPY AIDE Anesthesia Event [facility] [address] [place] [phone] Gamal Asher MD PhD Deyvi Urrutia MD 03/22/2024 3:00 PM ASSISTANT THERAPY AIDE - 03/22/2024 5:15 PM ASSISTANT THERAPY AIDE Surgery [facility] [address] [place] [phone] Basil Adhikari MD Left internal iliac plug, left iliac aneurysm repair [39534 (CPT )] 03/18/2024 12:10 PM ASSISTANT THERAPY AIDE Ancillary Procedure [facility] Operating Room [address] [place] [phone] 03/18/2024 12:47 PM ASSISTANT THERAPY AIDE Anesthesia Event [facility] Operating Room [address] [place] [phone] Derek Marin MD PhD Gamal Asher MD PhD 03/18/2024 1:30 PM ASSISTANT THERAPY AIDE - 03/18/2024 7:50 PM ASSISTANT THERAPY AIDE Surgery [facility] Operating Room [address] [place] [phone] Basil Adhikari MD Mini ascending aortic root replacement 03/15/2024 11:50 AM ASSISTANT THERAPY AIDE Lab [facility] Outpatient Lab [address] [place] [phone] Aneurysm of ascending aorta without rupture (HCC); Pre-op evaluation 03/15/2024 10:00 AM ASSISTANT THERAPY AIDE Office Visit [facility]ovascular and Thoracic Surgery [address] [place] [address] [place] [phone] Basil Adhikari MD Pre-op evaluation (Primary Dx); Aneurysm of ascending aorta without rupture (HCC) 03/11/2024 Telephone Cardiovascular and Thoracic Surgery [address] [place] [address] [address], [place] [address] Basil 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 MD 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 02/11/2024 Orders Only [facility] Cardiac Catheterization Lab [address] [place] [address] Fredrick Peña MD Iliac aneurysm (CMS/HCC) (HCC) [...] 1 tablet (88 mcg total) by mouth regulatory affairs specialist before breakfast 30 tablet 5 Active midodrine [...] (11/24/2018): Added automatically from request for surgery [id number] Adenomatous polyp of cecum 06/18/2018 Overview (06/18/2018): Added automatically from request for surgery [id number] skilled nursing current use of anticoagulant therapy 0 11/07/2016 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 Never 04/06/2024 Do you belong to any clubs o r organizations such as jainism groups, unions, fraternal or athletic groups, or [...] any time in the past 12 m [facility], were you homeless or living [...] on file Legal Sex Male 12:56 AM ASSISTANT THERAPY AIDE Gender Identity Not on file Sexual Orientation Straight 10/21/2019 9: 52 AM CDT Last Filed Vital Signs Vital Sign Reading Time Taken Comments Blood Pressure 96/54 04/20/2024 12:33 PM ASSISTANT THERAPY AIDE Pulse 63 04/20/2024 12:33 PM ASSISTANT THERAPY AIDE Temperature 36.1 C (97 F) 04/20/2024 12:33 PM ASSISTANT THERAPY AIDE Respiratory Rate 16 04/20/2024 12:33 PM ASSISTANT THERAPY AIDE Oxygen Saturation 98% 04/20/2024 12:33 PM ASSISTANT THERAPY AIDE Inhaled Oxygen Concentration - - Weight 66.9 kg (147 lb 7.8 oz) 04/19/2024 8:12 A M ASSISTANT THERAPY AIDE Height 172.7 cm (5' 8 ) 04/16/2024 8:23 AM ASSISTANT THERAPY AIDE Body Mass Index 22.43 04/16/2024 8:23 AM ASSISTANT THERAPY AIDE Plan of Treatment Not on file Medical Devices Implanted Type Area E Business Project Manager Device Identifier Shelf Expiration Date Model / Serial / Lot Leyva Lifesciences Konect Resilia Aortic Valved Conduit 27mm [id number] - [id number] - [id number] Implanted:Qty: 1 on 03/18/2024 by Basil Adhikari MD at [facility] Prosthetic Valve N/A: Aortic Valve Leyva [employer] 01/06/2027 [id number] / [id number] / Teleflex [employer] Inc 18f Manta Vascular Closure Device 2114 - S0 - [id number] Implanted:Qty: 1 on 03/22/2024 by Basil Adhikari MD at [facility] Vascular Closure Device Tele[employer] Inc 01/06/2025 2115 / 0 / [id number] Cement Bone Cmw 2 20 Gm Fast Set Sterile - [id number] Implanted:Qty: 1 on 2017 by Brennon Davis MD at [facility] Right: Shoulder Depuy [employer] Inc 10/15/2019 3322-02 0 / / [id number] Component Glenoid Comprehensive Regenerex Titanium Clay Porous Shoulder Modular Hybrid Post - [id number] Implanted:Qty: 1 on 2017 by Brennon Davis MD at [facility] Right: Shoulder [employer]av[employer] Inc [id number] 01/21/2027 PT-1139 50 / / [id number] Component Glenoid Comprehensive Hybrid Large H4 Mm Shoulder Base Modular - [id number] Implanted:Qty: 1 on 2017 by Brennon Davis MD at [facility] Right: Shoulder [employer] [id number] 03/23/2022 [id number] / / [id number] Stem Humeral Comprehensive Porous Mini L83 Mm Od15 Mm Shoulder Reverse System - [id number] Implanted:Qty: 1 on 2017 by Brennon Davis MD at [facility] Right: Shoulder [employer] [id number] 04/10/2027 [id number] / / [id number] Head Humeral Bio-Modular [place] 4 Mm Offset H22 Mm Od54 Mm Shoulder Sterile - [id number] Implanted:Qty: 1 on 2017 by Brennon Davis MD at [facility] Right: Shoulder [employer] Inc 08/16/2019 [id number] / / [id number] Cryolife Inc Graft Biological Cardiovascular Photofix 6x8cm Acellular Dermis Pfp 6x8 - [id number] Implanted:Qty: 1 on 03/18/2024 by Basil Adhikari MD at [facility] N/A: Aorta Cryolife Inc 10/24/2025 PFP 6X8 / / [id number] Arthrex Inc Device Closure Tigertape Sternal Cerclage Blunt Needle Ar-7289t - [id number] Implanted:Qty: 1 on 03/18/2024 by Basil Adhikari MD at [facility] N/A: Sternum Arthrex Inc 12/14/2028 AR-7289 T / / [id number] Arthrex Inc Device Closure Tigertape Sternal Cerclage Blunt Needle Ar-7289t - [id number] Implanted:Qty: 1 on 03/18/2024 by Basil Adhikari MD at [facility] N/A: Sternum Arthrex Inc 12/14/2028 AR-7289 T / / [id number] 2 Estrada Vascular Plug Occluder Cvasc Embl Self Expanding Amplatzer [id number] Nitinol 9-Avp2-014 - S0 - [id number] Implanted:Qty: 1 on 03/22/2024 by Basil Adhikari MD at [facility] Left: Internal Iliac (Hypogastr ic) Artery Estrada Vascular [id number] 05/14/2025 9-AVP2- 014 / 0 / [id number] [employer] Associates Inc Excluder 18mm 14.5-16.5mm 11.5cm Stent Abrasion Resistant [id number] - [id number] - [id number] Implanted:Qty: 1 on 03/22/2024 by Basil Adhikari MD at [facility] Left: External Iliac Artery Wl [employer] Inc [id number] 11/17/2026 [id number] / [id number] / Wl [employer] Stent Graft Thoracic Conformable Tag [id number] m [id number] - S0 - [id number] Implanted:Qty: 1 on 03/22/2024 by Basil Adhikari MD at [facility] Left: External Iliac Artery Wl [employer] [id number] 08/14/2026 [id number] / 0 / Amplatzer Paper Tube Cutter Lisa Amplatzer 14mm 100cm 8mm 1 Layer Wire Mesh 1 Lobe Design Optimal 9-Plug-014 - S0 - [id number] Implanted:Qty: 1 on 03/22/2024 by Basil Adhikari MD at [facility] Left: Internal Iliac (Hypogastr ic) Artery Amplatzer Paper Tube Cutter Lisa 03/16/2028 9-PLUG- 014 / 0 / [id number] Procedures Procedure Name Priority Date/Time Associated Diagnosis Comments EGFR Routine 04/20/2024 12:20 AM ASSISTANT THERAPY AIDE MAGNESIUM Routine 04/20/2024 12:20 AM ASSISTANT THERAPY AIDE RENAL FUNCTION PANEL Routine 04/20/2024 12:20 AM ASSISTANT THERAPY AIDE EGFR Routine 04/19/2024 12:41 AM ASSISTANT THERAPY AIDE MAGNESIUM Routine 04/19/2024 12:41 AM ASSISTANT THERAPY AIDE RENAL FUNCTION PANEL Routine 04/19/2024 12:41 AM ASSISTANT THERAPY AIDE ECG 12-LEAD Routine 04/18/2024 10:45 AM ASSISTANT THERAPY AIDE ECG 12-LEAD STAT 04/18/2024 7:41 AM ASSISTANT THERAPY AIDE ECG 12-LEAD STAT 04/18/2024 3:01 AM ASSISTANT THERAPY AIDE EGFR Routine 04/18/2024 12:24 AM ASSISTANT THERAPY AIDE MAGNESIUM Routine 04/18/2024 12:24 AM ASSISTANT THERAPY AIDE RENAL FUNCTION PANEL Routine 04/18/2024 12:24 AM ASSISTANT THERAPY AIDE PERCUTANEOUS ENDOSCOPIC GASTROSTOMY 04/16/2024 9:04 AM ASSISTANT THERAPY AIDE Dysphagia, unspecified type EGD 04/16/2024 7:56 AM ASSISTANT THERAPY AIDE EGFR Routine 04/15/2024 12:25 AM ASSISTANT THERAPY AIDE PROTIME-INR Routine 04/15/2024 12:25 AM ASSISTANT THERAPY AIDE RENAL FUNCTION PANEL Routine 04/15/2024 12:25 AM ASSISTANT THERAPY AIDE POCT GLUCOSE DEVICE Routine 04/13/2024 1 0:44 PM ASSISTANT THERAPY AIDE FL MODIFIED BARIUM SWALLOW W VIDEO IP Routine 04/13/2024 2:06 PM ASSISTANT THERAPY AIDE EGFR Routine 04/12/2024 1:38 AM ASSISTANT THERAPY AIDE DIFFERENTIAL AUTO Routine 04/12/2024 1:3 8 AM ASSISTANT THERAPY AIDE MAGNESIUM Routine 04/12/2024 1:38 AM ASSISTANT THERAPY AIDE CBC WITH AUTO DIFFERENTIAL Routine 04/12/2024 1:38 AM ASSISTANT THERAPY AIDE RENAL FUNCTION PANEL Routine 04/12/2024 1:38 AM ASSISTANT THERAPY AIDE EGFR Routine 04/10/2024 12:21 AM ASSISTANT THERAPY AIDE CBC WITHOUT DIFFERENTIAL Routine 04/10/2024 12:21 AM ASSISTANT THERAPY AIDE MAGNESIUM Routine 04/10/2024 12:21 AM ASSISTANT THERAPY AIDE RENAL FUNCTION PANEL Routine 04/10/2024 12:21 AM ASSISTANT THERAPY AIDE EGFR Routine 04/09/2024 12:26 AM ASSISTANT THERAPY AIDE CBC WITHOUT DIFFERENTIAL Routine 04/09/2024 12:26 AM ASSISTANT THERAPY AIDE MAGNESIUM Routine 04/09/2024 12:26 AM ASSISTANT THERAPY AIDE RENAL FUNCTION PANEL Routine 04/09/2024 12:26 AM ASSISTANT THERAPY AIDE US CAROTIDS DUPLEX BILATERAL IP Routine 04/08/2024 5:50 PM ASSISTANT THERAPY AIDE EGFR Routine 04/08/2024 12:52 AM ASSISTANT THERAPY AIDE DIFFERENTIAL AUTO Routine 04/08/2024 12: 52 AM ASSISTANT THERAPY AIDE MAGNESIUM Routine 04/08/2024 12:52 AM ASSISTANT THERAPY AIDE RENAL FUNCTION PANEL Routine 04/08/2024 12:52 AM ASSISTANT THERAPY AIDE CBC WITH AUTO DIFFERENTIAL Routine 04/08/2024 12:52 AM ASSISTANT THERAPY AIDE MRI BRAIN WO CONTRAST IP Routine 04/08/2024 12:24 AM ASSISTANT THERAPY AIDE EGFR Routine 04/07/2024 12:51 AM ASSISTANT THERAPY AIDE DIFFERENTIAL AUTO Routine 04/07/2024 12: 51 AM ASSISTANT THERAPY AIDE RENAL FUNCTION PANEL Routine 04/07/2024 12:51 AM ASSISTANT THERAPY AIDE CBC WITH AUTO DIFFERENTIAL Routine 04/07/2024 12:51 AM ASSISTANT THERAPY AIDE HEMOGLOBIN AND HEMATOCRIT Timed 04/06/2024 5:18 PM ASSISTANT THERAPY AIDE XR CHEST 1 VIEW IP Routine 04/06/2024 5:06 AM ASSISTANT THERAPY AIDE ADD ON LAB TEST Add-On 04/06/2024 3:29 AM ASSISTANT THERAPY AIDE RENAL FUNCTION PANEL Routine 04/06/2024 2:29 AM ASSISTANT THERAPY AIDE EGFR Routine 04/06/2024 2:29 AM ASSISTANT THERAPY AIDE DIFFERENTIAL AUTO Routine 04/06/2024 2:2 9 AM ASSISTANT THERAPY AIDE CBC WITH AUTO DIFFERENTIAL Routine 04/06/2024 2:29 AM ASSISTANT THERAPY AIDE PROCALCITONIN Routine 04/06/2024 2:29 AM ASSISTANT THERAPY AIDE BLOOD GAS, VENOUS Routine 04/06/2024 2:1 5 AM ASSISTANT THERAPY AIDE POCT GLUCOSE DEVICE Routine 04/05/2024 1 2:05 PM ASSISTANT THERAPY AIDE XR KUB ED Urgent/IP Urgent 04/05/2024 10:23 AM ASSISTANT THERAPY AIDE FL MODIFIED BARIUM SWALLOW W VIDEO IP Routine 04/05/2024 9:52 AM ASSISTANT THERAPY AIDE POCT GLUCOSE DEVICE Routine 04/05/2024 4 :30 AM ASSISTANT THERAPY AIDE MAGNESIUM Routine 04/05/2024 3:39 AM ASSISTANT THERAPY AIDE EGFR Routine 04/05/2024 3:39 AM ASSISTANT THERAPY AIDE CBC WITHOUT DIFFERENTIAL Routine 04/05/2024 3:39 AM ASSISTANT THERAPY AIDE RENAL FUNCTION PANEL Routine 04/05/2024 3:39 AM ASSISTANT THERAPY AIDE EGFR STAT 04/04/2024 4:18 PM ASSISTANT THERAPY AIDE RENAL FUNCTION PANEL STAT 04/04/2024 4:18 PM ASSISTANT THERAPY AIDE OSMOLALITY, URINE Routine 04/04/2024 6:1 1 AM ASSISTANT THERAPY AIDE CREATININE, URINE, RANDOM Routine 04/04/2024 6:11 AM ASSISTANT THERAPY AIDE SODIUM, URINE, RANDOM Routine 04/04/2024 6:11 AM ASSISTANT THERAPY AIDE EGFR Routine 04/04/2024 2:56 AM ASSISTANT THERAPY AIDE RENAL FUNCTION PANEL Routine 04/04/2024 2:56 AM ASSISTANT THERAPY AIDE TSH Routine 04/04/2024 2:56 AM ASSISTANT THERAPY AIDE CBC WITHOUT DIFFERENTIAL Routine 04/04/2024 2:56 AM ASSISTANT THERAPY AIDE EGFR Timed 04/03/2024 5:59 PM ASSISTANT THERAPY AIDE RENAL FUNCTION PANEL Timed 04/03/2024 5:59 PM ASSISTANT THERAPY AIDE MRSA ONLY (STAPHYLOCOCCUS AUREUS) PCR Routine 04/03/2024 3:55 PM ASSISTANT THERAPY AIDE AEROBIC CULTURE AND GRAM STAIN Routine 04/03/2024 3:55 PM ASSISTANT THERAPY AIDE ADD ON LAB TEST Add-On 04/03/2024 2:48 PM ASSISTANT THERAPY AIDE ADD ON LAB TEST Add-On 04/03/2024 2:48 PM ASSISTANT THERAPY AIDE ADD ON LAB TEST Add-On 04/03/2024 2:48 PM ASSISTANT THERAPY AIDE ADD ON LAB TEST Add-On 04/03/2024 2:48 PM ASSISTANT THERAPY AIDE TRANSTHORACIC ECHO (TTE) COMPLETE W DOPPLER/CF WO CONTRAST STAT 04/03/2024 2:46 PM ASSISTANT THERAPY AIDE URIC ACID STAT 04/03/2024 11:06 AM ASSISTANT THERAPY AIDE T4, FREE STAT 04/03/2024 11:06 AM ASSISTANT THERAPY AIDE THYROID FUNCTION CASCADE STAT 04/03/2024 11:06 AM ASSISTANT THERAPY AIDE CORTISOL STAT 04/03/2024 11:06 AM ASSISTANT THERAPY AIDE OSMOLALITY, URINE Routine 04/03/2024 11: 06 AM ASSISTANT THERAPY AIDE SODIUM, URINE, RANDOM Routine 04/03/2024 11:06 AM ASSISTANT THERAPY AIDE EGFR STAT 04/03/2024 11:06 AM ASSISTANT THERAPY AIDE URINALYSIS, MICROSCOPIC ONLY Routine 04/03/2024 11:06 AM ASSISTANT THERAPY AIDE BILIRUBIN, DIRECT STAT 04/03/2024 11: 06 AM ASSISTANT THERAPY AIDE CBC WITHOUT DIFFERENTIAL STAT 04/03/2024 11:06 AM ASSISTANT THERAPY AIDE PROTIME-INR STAT 04/03/2024 11:06 AM ASSISTANT THERAPY AIDE APTT STAT 04/03/2024 11:06 AM ASSISTANT THERAPY AIDE PRO B-TYPE NATRIURETIC PEPTIDE STAT 04/03/2024 11:06 AM ASSISTANT THERAPY AIDE LACTATE STAT 04/03/2024 11:06 AM ASSISTANT THERAPY AIDE PHOSPHORUS STAT 04/03/2024 11:06 AM ASSISTANT THERAPY AIDE MAGNESIUM STAT 04/03/2024 11:06 AM ASSISTANT THERAPY AIDE COMPREHENSIVE METABOLIC PANEL STAT 04/03/2024 11:06 AM ASSISTANT THERAPY AIDE TYPE AND SCREEN STAT 04/03/2024 11:06 AM ASSISTANT THERAPY AIDE STREP PNEUMONIAE AG, URINE Routine 04/03/2024 11:06 AM ASSISTANT THERAPY AIDE LEGIONELLA ANTIGEN, URINE Routine 04/03/2024 11:06 AM ASSISTANT THERAPY AIDE URINALYSIS AND REFLEX TO MICROSCOPIC AND CULTURE Routine 04/03/2024 11:06 AM ASSISTANT THERAPY AIDE XR CHEST 1 VIEW Critical/Life-T hreatening 04/03/2024 10:23 AM ASSISTANT THERAPY AIDE XR CHEST 1 VIEW IP Routine 03/27/2024 6:38 AM ASSISTANT THERAPY AIDE EGFR Routine 03/27/2024 12:27 AM ASSISTANT THERAPY AIDE MAGNESIUM Routine 03/27/2024 12:27 AM ASSISTANT THERAPY AIDE RENAL FUNCTION PANEL Routine 03/27/2024 12:27 AM ASSISTANT THERAPY AIDE CBC WITHOUT DIFFERENTIAL Routine 03/27/2024 12:27 AM ASSISTANT THERAPY AIDE URINALYSIS, MICROSCOPIC ONLY Routine 03/26/2024 11:53 AM ASSISTANT THERAPY AIDE URINALYSIS AND REFLEX TO MICROSCOPIC AND CULTURE Routine 03/26/2024 11:53 AM ASSISTANT THERAPY AIDE XR CHEST 1 VIEW IP Routine 03/26/2024 6:06 AM ASSISTANT THERAPY AIDE EGFR Routine 03/26/2024 12:27 AM ASSISTANT THERAPY AIDE MAGNESIUM Routine 03/26/2024 12:27 AM ASSISTANT THERAPY AIDE RENAL FUNCTION PANEL Routine 03/26/2024 12:27 AM ASSISTANT THERAPY AIDE CBC WITHOUT DIFFERENTIAL Routine 03/26/2024 12:27 AM ASSISTANT THERAPY AIDE XR CHEST 1 VIEW IP Routine 03/25/2024 5:49 AM ASSISTANT THERAPY AIDE EGFR Routine 03/25/2024 1:33 AM ASSISTANT THERAPY AIDE MAGNESIUM Routine 03/25/2024 1:33 AM ASSISTANT THERAPY AIDE RENAL FUNCTION PANEL Routine 03/25/2024 1:33 AM ASSISTANT THERAPY AIDE CBC WITHOUT DIFFERENTIAL Routine 03/25/2024 1:33 AM ASSISTANT THERAPY AIDE TYPE AND SCREEN Timed 03/25/2024 1:33 AM ASSISTANT THERAPY AIDE XR CHEST 1 VIEW IP Routine 03/24/2024 8:05 AM ASSISTANT THERAPY AIDE EGFR Routine 03/24/2024 2:16 AM ASSISTANT THERAPY AIDE MAGNESIUM Routine 03/24/2024 2:16 AM ASSISTANT THERAPY AIDE RENAL FUNCTION PANEL Routine 03/24/2024 2:16 AM ASSISTANT THERAPY AIDE CBC WITHOUT DIFFERENTIAL Routine 03/24/2024 2:16 AM ASSISTANT THERAPY AIDE XR CHEST 1 VIEW IP Routine 03/23/2024 6:41 AM ASSISTANT THERAPY AIDE CRITICAL CARE Routine 03/23/2024 6:36 AM ASSISTANT THERAPY AIDE Iliac aneurysm (CMS/HCC) (HCC) EGFR Routine 03/23/2024 1:16 AM ASSISTANT THERAPY AIDE CALCIUM, IONIZED Routine 03/23/2024 1:16 AM ASSISTANT THERAPY AIDE PROTIME-INR Routine 03/23/2024 1:16 AM ASSISTANT THERAPY AIDE MAGNESIUM Routine 03/23/2024 1:16 AM ASSISTANT THERAPY AIDE RENAL FUNCTION PANEL Routine 03/23/2024 1:16 AM ASSISTANT THERAPY AIDE CBC WITHOUT DIFFERENTIAL Routine 03/23/2024 1:16 AM ASSISTANT THERAPY AIDE CRITICAL CARE Routine 03/22/2024 8:16 PM ASSISTANT THERAPY AIDE 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 Routine 03/22/2024 6 :38 PM ASSISTANT THERAPY AIDE EGFR STAT 03/22/2024 6:30 PM ASSISTANT THERAPY AIDE CALCIUM, IONIZED STAT 03/22/2024 6:30 PM ASSISTANT THERAPY AIDE MAGNESIUM STAT 03/22/2024 6:30 PM ASSISTANT THERAPY AIDE RENAL FUNCTION PANEL STAT 03/22/2024 6:30 PM ASSISTANT THERAPY AIDE PROTIME-INR STAT 03/22/2024 6:30 PM ASSISTANT THERAPY AIDE APTT STAT 03/22/2024 6:30 PM ASSISTANT THERAPY AIDE CBC WITHOUT DIFFERENTIAL STAT 03/22/2024 6:30 PM ASSISTANT THERAPY AIDE CRITICAL CARE Routine 03/22/2024 5:43 PM ASSISTANT THERAPY AIDE Iliac aneurysm (CMS/HCC) (HCC) REVAS ENDOVASILIAC W STNT [id number] Routine 03/22/2024 4:52 PM ASSISTANT THERAPY AIDE Iliac aneurysm (CMS/HCC) (HCC) POCT ACTIVATED CLOTTING TIME, HIGH RANGE Routine 03/22/2024 4:51 PM ASSISTANT THERAPY AIDE POC BLOOD GAS AND CHEMISTRIES, VENOUS Routine 03/22/2024 4:29 PM ASSISTANT THERAPY AIDE POCT ACTIVATED CLOTTING TIME, HIGH RANGE Routine 03/22/2024 4:10 PM ASSISTANT THERAPY AIDE POCT ACTIVATED CLOTTING TIME, HIGH RANGE Routine 03/22/2024 4:00 PM ASSISTANT THERAPY AIDE POCT ACTIVATED CLOTTING TIME, HIGH RANGE Routine 03/22/2024 3:56 PM ASSISTANT THERAPY AIDE POCT ACTIVATED CLOTTING TIME, HIGH RANGE Routine 03/22/2024 3:28 PM ASSISTANT THERAPY AIDE POCT ACTIVATED CLOTTING TIME, LOW RANGE Routine 03/22/2024 3:21 PM ASSISTANT THERAPY AIDE MD AN PROCEDURE PLACEHOLDER Routine 03/22/2024 3:08 PM ASSISTANT THERAPY AIDE MD AN ELECTIVE ENDOTRACHEAL AIRWAY Routine 03/22/2024 3:08 PM ASSISTANT THERAPY AIDE PREPARE RBC STAT 03/22/2024 2:42 PM ASSISTANT THERAPY AIDE XR CHEST 1 VIEW IP Routine 03/22/2024 7:26 AM ASSISTANT THERAPY AIDE EGFR Routine 03/22/2024 1:34 AM ASSISTANT THERAPY AIDE MAGNESIUM Routine 03/22/2024 1:34 AM ASSISTANT THERAPY AIDE RENAL FUNCTION PANEL Routine 03/22/2024 1:34 AM ASSISTANT THERAPY AIDE CBC WITHOUT DIFFERENTIAL Routine 03/22/2024 1:34 AM ASSISTANT THERAPY AIDE TYPE AND SCREEN Timed 03/22/2024 1:34 AM ASSISTANT THERAPY AIDE APTT STAT 03/21/2024 8:12 PM ASSISTANT THERAPY AIDE APTT STAT 03/21/2024 12:40 PM ASSISTANT THERAPY AIDE APTT Timed 03/21/2024 10:35 AM ASSISTANT THERAPY AIDE XR CHEST 1 VIEW IP Routine 03/21/2024 7:43 AM ASSISTANT THERAPY AIDE APTT STAT 03/21/2024 2:27 AM ASSISTANT THERAPY AIDE EGFR Routine 03/21/2024 2:24 AM ASSISTANT THERAPY AIDE MAGNESIUM Routine 03/21/2024 2:24 AM ASSISTANT THERAPY AIDE RENAL FUNCTION PANEL Routine 03/21/2024 2:24 AM ASSISTANT THERAPY AIDE CBC WITHOUT DIFFERENTIAL Routine 03/21/2024 2:24 AM ASSISTANT THERAPY AIDE APTT STAT 03/20/2024 4:57 PM ASSISTANT THERAPY AIDE APTT STAT 03/20/2024 9:27 AM ASSISTANT THERAPY AIDE PROTIME-INR STAT 03/20/2024 9:27 AM ASSISTANT THERAPY AIDE XR CHEST 1 VIEW IP Routine 03/20/2024 9:17 AM ASSISTANT THERAPY AIDE EGFR Routine 03/20/2024 1:03 AM ASSISTANT THERAPY AIDE MAGNESIUM Routine 03/20/2024 1:03 AM ASSISTANT THERAPY AIDE CALCIUM, IONIZED Routine 03/20/2024 1:03 AM ASSISTANT THERAPY AIDE RENAL FUNCTION PANEL Routine 03/20/2024 1:03 AM ASSISTANT THERAPY AIDE CBC WITHOUT DIFFERENTIAL Routine 03/20/2024 1:03 AM ASSISTANT THERAPY AIDE PREPARE RBC STAT 03/19/2024 4:56 PM ASSISTANT THERAPY AIDE CTA ABDOMEN PELVIS W WO CONTRAST IP Routine 03/19/2024 9:06 AM ASSISTANT THERAPY AIDE POTASSIUM LEVEL STAT 03/19/2024 6:48 AM ASSISTANT THERAPY AIDE CRITICAL CARE Routine 03/19/2024 6:40 AM ASSISTANT THERAPY AIDE 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 IP Routine 03/19/2024 6:37 AM ASSISTANT THERAPY AIDE POCT GLUCOSE DEVICE Routine 03/19/2024 6 :01 AM ASSISTANT THERAPY AIDE POCT GLUCOSE DEVICE Routine 03/19/2024 2 :13 AM ASSISTANT THERAPY AIDE POCT GLUCOSE DEVICE Routine 03/19/2024 1 2:18 AM ASSISTANT THERAPY AIDE EGFR Routine 03/19/2024 12:04 AM ASSISTANT THERAPY AIDE MAGNESIUM Routine 03/19/2024 12:04 AM ASSISTANT THERAPY AIDE CALCIUM, IONIZED Routine 03/19/2024 12:0 4 AM ASSISTANT THERAPY AIDE RENAL FUNCTION PANEL Routine 03/19/2024 12:04 AM ASSISTANT THERAPY AIDE CBC WITHOUT DIFFERENTIAL Routine 03/19/2024 12:04 AM ASSISTANT THERAPY AIDE POCT GLUCOSE DEVICE Routine 03/18/2024 9 :02 PM ASSISTANT THERAPY AIDE EXTUBATION Routine 03/18/2024 7:38 PM ASSISTANT THERAPY AIDE BLOOD GAS, ARTERIAL STAT 03/18/2024 7 :23 PM ASSISTANT THERAPY AIDE POCT GLUCOSE DEVICE Routine 03/18/2024 7 :12 PM ASSISTANT THERAPY AIDE CRITICAL CARE Routine 03/18/2024 6:39 PM ASSISTANT THERAPY AIDE 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 Routine 03/18/2024 6 :07 PM ASSISTANT THERAPY AIDE XR CHEST 1 VIEW ED Urgent/IP Urgent 03/18/2024 4:41 PM ASSISTANT THERAPY AIDE POCT GLUCOSE DEVICE Routine 03/18/2024 4 :27 PM ASSISTANT THERAPY AIDE CRITICAL CARE Routine 03/18/2024 4:19 PM ASSISTANT THERAPY AIDE EGFR STAT 03/18/2024 4:17 PM ASSISTANT THERAPY AIDE APTT STAT 03/18/2024 4:17 PM ASSISTANT THERAPY AIDE PROTIME-INR STAT 03/18/2024 4:17 PM ASSISTANT THERAPY AIDE CBC WITHOUT DIFFERENTIAL STAT 03/18/2024 4:17 PM ASSISTANT THERAPY AIDE BLOOD GAS, ARTERIAL STAT 03/18/2024 4 :17 PM ASSISTANT THERAPY AIDE CALCIUM, IONIZED STAT 03/18/2024 4:17 PM ASSISTANT THERAPY AIDE MAGNESIUM STAT 03/18/2024 4:17 PM ASSISTANT THERAPY AIDE BASIC METABOLIC PANEL STAT 03/18/2024 4:17 PM ASSISTANT THERAPY AIDE PHOSPHORUS STAT 03/18/2024 4:17 PM ASSISTANT THERAPY AIDE PROTIME-INR STAT 03/18/2024 3:38 PM ASSISTANT THERAPY AIDE FIBRINOGEN STAT 03/18/2024 3:38 PM ASSISTANT THERAPY AIDE CBC WITHOUT DIFFERENTIAL STAT 03/18/2024 3:38 PM ASSISTANT THERAPY AIDE APTT STAT 03/18/2024 3:38 PM ASSISTANT THERAPY AIDE POC BLOOD GAS AND CHEMISTRIES, ARTERIAL Routine 03/18/2024 3:35 PM ASSISTANT THERAPY AIDE POCT ACTIVATED CLOTTING TIME, HIGH RANGE Routine 03/18/2024 3:35 PM ASSISTANT THERAPY AIDE POC BLOOD GAS AND CHEMISTRIES, ARTERIAL Routine 03/18/2024 2:41 PM ASSISTANT THERAPY AIDE POCT ACTIVATED CLOTTING TIME, HIGH RANGE Routine 03/18/2024 2:40 PM ASSISTANT THERAPY AIDE POC BLOOD GAS AND CHEMISTRIES, VENOUS Routine 03/18/2024 2:30 PM ASSISTANT THERAPY AIDE SURGICAL PATHOLOGY Routine 03/18/2024 2: 09 PM ASSISTANT THERAPY AIDE Aortic root aneurysm POC BLOOD GAS AND CHEMISTRIES, ARTERIAL Routine 03/18/2024 2:08 PM ASSISTANT THERAPY AIDE POCT ACTIVATED CLOTTING TIME, HIGH RANGE Routine 03/18/2024 2:08 PM ASSISTANT THERAPY AIDE POC BLOOD GAS AND CHEMISTRIES, ARTERIAL Routine 03/18/2024 1:50 PM ASSISTANT THERAPY AIDE POCT ACTIVATED CLOTTING TIME, HIGH RANGE Routine 03/18/2024 1:49 PM ASSISTANT THERAPY AIDE MD AN PROCEDURE PLACEHOLDER Routine 03/18/2024 1:41 PM ASSISTANT THERAPY AIDE PULMONARY ARTERY CATH Routine 03/18/2024 1:41 PM ASSISTANT THERAPY AIDE BW AN SHEATH INTRODUCER PERFORMABLE Routine 03/18/2024 1:41 PM ASSISTANT THERAPY AIDE MD AN PROCEDURE PLACEHOLDER Routine 03/18/2024 1:40 PM ASSISTANT THERAPY AIDE MD AN CENTRAL LINE QUADRUPLE LUMEN Routine 03/18/2024 1:40 PM ASSISTANT THERAPY AIDE MD AN PROCEDURE PLACEHOLDER Routine 03/18/2024 1:39 PM ASSISTANT THERAPY AIDE MD AN PROCEDURE PLACEHOLDER Routine 03/18/2024 1:38 PM ASSISTANT THERAPY AIDE MD AN PROCEDURE PLACEHOLDER Routine 03/18/2024 1:37 PM ASSISTANT THERAPY AIDE MD AN ELECTIVE ENDOTRACHEAL AIRWAY Routine 03/18/2024 1:37 PM ASSISTANT THERAPY AIDE MD AN PROCEDURE PLACEHOLDER Routine 03/18/2024 1:29 PM ASSISTANT THERAPY AIDE POCT ACTIVATED CLOTTING TIME, HIGH RANGE Routine 03/18/2024 1:11 PM ASSISTANT THERAPY AIDE REPLACEMENT AORTIC ROOT 03/18/2024 12:46 PM ASSISTANT THERAPY AIDE Aortic root aneurysm LIDIA ADD-ON FOR OR Routine 03/18/2024 12: 05 PM ASSISTANT THERAPY AIDE B CHECK SAMPLE STAT 03/18/2024 9:54 AM ASSISTANT THERAPY AIDE ECG 12-LEAD Routine 03/18/2024 9:34 AM ASSISTANT THERAPY AIDE PREPARE RBC STAT 03/18/2024 9:12 AM ASSISTANT THERAPY AIDE DIFFERENTIAL AUTO Routine 03/15/2024 12: 29 PM ASSISTANT THERAPY AIDE Aneurysm of ascending aorta without rupture (HCC) Pre-op evaluation HEMOGLOBIN A1C Routine 03/15/2024 12:29 PM ASSISTANT THERAPY AIDE Aneurysm of ascending aorta without rupture (HCC) Pre-op evaluation CBC WITH AUTO DIFFERENTIAL Routine 03/15/2024 12:29 PM ASSISTANT THERAPY AIDE Aneurysm of ascending aorta without rupture (HCC) Pre-op evaluation TYPE AND SCREEN Routine 03/15/2024 12:29 PM ASSISTANT THERAPY AIDE Aneurysm of ascending aorta without rupture (HCC) Pre-op evaluation EGFR Routine 03/15/2024 12:28 PM ASSISTANT THERAPY AIDE Aneurysm of ascending aorta without rupture (HCC) Pre-op evaluation COMPREHENSIVE METABOLIC PANEL Routine 03/15/2024 12:28 PM ASSISTANT THERAPY AIDE Aneurysm of ascending aorta without rupture (HCC) Pre-op evaluation from Last 3 Months Results * eGFR (04/20/2024 12:20 AM ASSISTANT THERAPY AIDE) eGFR 71 >=60 mL/min/1. 73 m2 Comment: [...] reviewed 2021. Blood 04/20/2024 12:2 0 AM ASSISTANT THERAPY AIDE 04/20/2024 12:48 AM ASSISTANT THERAPY AIDE us Louann Conti MD LAB BLOOD ORDERABLES F inal Result [facility] [address] Department [place] [address] * Magnesium (04/20/2024 12:20 AM ASSISTANT THERAPY AIDE) Magnesium 2.2 1.4 - 2.5 mg/dL Blood 04/20/2024 12:2 0 AM ASSISTANT THERAPY AIDE 04/20/2024 12:48 AM ASSISTANT THERAPY AIDE Louann Conti MD LAB BLOOD ORDERABLES F inal Result Performing Organization Address City/[facility]/ZIP Co de Phone Number [facility] [address] [place] [address] * (ABNORMAL) Renal function panel (04/20/2024 12:20 AM ASSISTANT THERAPY AIDE) Sodium 138 135 - 145 mmol/L Potassium, pl 4.3 3.3 - 4.9 mmol/L [facility] Chloride 102 97 - 110 mmol/L [facility] CO2 26 22 - 32 mmol/L [facility] Anion gap 10 2 - 15 mmol/L [facility] BUN 26(H) 6 - 25 mg/dL [facility] Creatinine 1.04 0.80 - 1.30 mg/dL [facility] Glucose 119 70 - 199 mg/dL [facility] Comment: Interpretive Data Fasting glucose >/= 126 [...] 2022. Calcium 8.5 8.5 - 10.3 mg/dL [facility] Phosphorus, pl 2.9 2.3 - 4.5 mg/dL [facility] Albumin 3.5 3.5 - 5.0 g/dL [facility] Blood 04/20/2024 12:2 0 AM ASSISTANT THERAPY AIDE 04/20/2024 12:48 AM ASSISTANT THERAPY AIDE Louann Conti MD LAB BLOOD ORDERABLES F inal Result Performing Organization Address City/[facility]/ZIP Co de Phone Number [facility] [address] [place] [address] * eGFR (04/19/2024 12:41 AM ASSISTANT THERAPY AIDE) eGFR 72 >=60 mL/min/1. 73 m2 Comment: [...] reviewed 2021. Blood 04/19/2024 12:4 1 AM ASSISTANT THERAPY AIDE 04/19/2024 12:56 AM ASSISTANT THERAPY AIDE Louann Conti MD LAB BLOOD ORDERABLES F inal Result Performing Organization Address [facility] Co de Phone Number [facility] [address] [facility] [place] [address] * Magnesium (04/19/2024 12:41 AM ASSISTANT THERAPY AIDE) Pathologist [facility] Magnesium 2.3 1.4 - 2.5 mg/dL Blood 04/19/2024 12:4 1 AM ASSISTANT THERAPY AIDE 04/19/2024 12:56 AM ASSISTANT THERAPY AIDE Louann Conti MD LAB BLOOD ORDERABLES F inal Result Performing Organization Address City/[facility]/ZIP Co de Phone Number [facility] [address] [place] [address] * (ABNORMAL) Renal function panel (04/19/2024 12:41 AM ASSISTANT THERAPY AIDE) Sodium 138 135 - 145 mmol/L Potassium, pl 4.6 3.3 - 4.9 mmol/L [facility] Chloride 103 97 - 110 mmol/L [facility] CO2 26 22 - 32 mmol/L [facility] Anion gap 9 2 - 15 mmol/L [facility] BUN 31(H) 6 - 25 mg/dL [facility] Creatinine 1.02 0.80 - 1.30 mg/dL [facility] Glucose 97 70 - 199 mg/dL [facility] Comment: Interpretive Data Fasting glucose >/= 126 [...] 2022. Calcium 8.6 8.5 - 10.3 mg/dL [facility] Phosphorus, pl 3.0 2.3 - 4.5 mg/dL [facility] Albumin 3.5 3.5 - 5.0 g/dL [facility] Blood 04/19/2024 12:4 1 AM ASSISTANT THERAPY AIDE 04/19/2024 12:56 AM ASSISTANT THERAPY AIDE us Louann Conti MD LAB BLOOD ORDERABLES F inal Result [facility] [address] Department [place] [address] * ECG 12 lead (04/18/2024 10:45 AM ASSISTANT THERAPY AIDE) 04/18/2024 10:4 5 AM ASSISTANT THERAPY AIDE Narrative [facility] - 04/18/2024 1:35 PM ASSISTANT THERAPY AIDE Vent Rate: 66 bpm RR Interval: 897 msec MD Interval: 0 msec QRS Duration: 91 msec QT Interval: 251 msec QTC Interval: 265 msec P-R-T [place]: 0 - 12 - 0 degrees IMPRESSION: ATRIAL FIBRILLATION NONSPECIFIC ST \T\ T-WAVE ABNORMALITY ABNORMAL RHYTHM ECG Electronically Signed By: Klaus Humphrey MD PhD Klaus Humphrye MD PhD ECG ORDERABLES Final Result Performing Organization Address [facility] Co de Phone Number [facility] * ECG 12 lead (04/18/2024 7:41 AM ASSISTANT THERAPY AIDE) 04/18/2024 7:41 AM ASSISTANT THERAPY AIDE Narrative [facility] - 04/18/2024 7:53 AM ASSISTANT THERAPY AIDE Vent Rate: 65 bpm RR Interval: 921 msec MD Interval: 0 msec QRS Duration: 101 msec QT Interval: 442 msec QTC Interval: 453 msec P-R-T [place]: 0 - 2 - 10 degrees IMPRESSION: ATRIAL FIBRILLATION NONSPECIFIC T-WAVE ABNORMALITY ABNORMAL RHYTHM ECG Electronically Signed By: Klaus Humphrey MD PhD Louann Conti MD ECG ORDERABLES Final Result Performing Organization Address [facility] de Phone Number [facility] * ECG 12 lead (04/18/2024 3:01 AM ASSISTANT THERAPY AIDE) 04/18/2024 3:01 AM ASSISTANT THERAPY AIDE Narrative [facility] - 04/18/2024 7:57 AM ASSISTANT THERAPY AIDE Vent Rate: 64 bpm RR Interval: 930 msec MD Interval: 0 msec QRS Duration: 94 msec QT Interval: 441 msec QTC Interval: 451 msec P-R-T [place]: 0 - -4 - -36 degrees IMPRESSION: ATRIAL FIBRILLATION INFERIOR MYOCARDIAL INFARCTION , PROBABLY OLD WITH POSTERIOR EXTENSION ABNORMAL ECG Electronically Signed By: Klaus Humphrey MD PhD WILL Navas Jr. ECG ORDERABLES Final Result Performing Organization Address [facility] de Phone Number [facility] * eGFR (04/18/2024 12:24 AM ASSISTANT THERAPY AIDE) eGFR 69 >=60 mL/min/1. 73 m2 Comment: [...] reviewed 2021. Blood 04/18/2024 12:2 4 AM ASSISTANT THERAPY AIDE 04/18/2024 12:44 AM ASSISTANT THERAPY AIDE Louann Conti MD LAB BLOOD ORDERABLES F inal Result Performing Organization Address City/[facility]/ZIP Co de Phone Number [facility] [address] [facility] [employer] [place], [place] [id number] * Magnesium (04/18/2024 12:24 AM ASSISTANT THERAPY AIDE) Magnesium 2.4 1.4 - 2.5 mg/dL Blood 04/18/2024 12:2 4 AM ASSISTANT THERAPY AIDE 04/18/2024 12:44 AM ASSISTANT THERAPY AIDE Louann Conti MD LAB BLOOD ORDERABLES F inal Result [facility] [address] [facility] [place] [address] * (ABNORMAL) Renal function panel (04/18/2024 12:24 AM ASSISTANT THERAPY AIDE) Sodium 137 135 - 145 mmol/L Potassium, pl 4.3 3.3 - 4.9 mmol/L [facility] Chloride 101 97 - 110 mmol/L [facility] CO2 25 22 - 32 mmol/L [facility] Anion gap 11 2 - 15 mmol/L [facility] BUN 37(H) 6 - 25 mg/dL [facility] Creatinine 1.06 0.80 - 1.30 mg/dL [facility] Glucose 102 70 - 199 mg/dL [facility] Comment: Interpretive Data Fasting glucose >/= 126 [...] 2022. Calcium 8.9 8.5 - 10.3 mg/dL [facility] Phosphorus, pl 2.9 2.3 - 4.5 mg/dL [facility] Albumin 3.8 3.5 - 5.0 g/dL [facility] Blood 04/18/2024 12:2 4 AM ASSISTANT THERAPY AIDE 04/18/2024 12:44 AM ASSISTANT THERAPY AIDE us Louann Conti MD LAB BLOOD ORDERABLES F inal Result [facility] [address] Department [place] [address] * EGD (04/16/2024 7:56 AM ASSISTANT THERAPY AIDE) Anatomical Region Laterality Modality Other Narrative Procedure Note Roderick Bedolla MD - 04/16/2024 7:56 AM CST ENDOSCOPY LAB Patient Name: Gian Lee Procedure Date: 04/16/2024 7:56 AM Admit Type: Inpatient Room: [facility] Date of : 1940 Instrument [...] Final Result * eGFR (04/15/2024 12:25 AM ASSISTANT THERAPY AIDE) eGFR 61 >=60 mL/min/1. 73 m2 Comment: [...] reviewed 2021. Blood 04/15/2024 12:2 5 AM ASSISTANT THERAPY AIDE 04/15/2024 12:48 AM ASSISTANT THERAPY AIDE us Louann Conti MD LAB BLOOD ORDERABLES F inal Result Performing Organization Address [facility] de Phone Number [facility] [address] [place] [address] * (ABNORMAL) Protime-INR (04/15/2024 12:25 AM ASSISTANT THERAPY AIDE) PT 16.8(H) 9.7 - 13.0 sec INR 1.54(H) 0.90 - 1.[address] [facility] Comment: Interpretive data Oral anticoagulant therapeutic ranges: Venous thromboembolism prophylaxis or treatment: 2.0-3.0 CARDIOLOGY Standard range: 2.0-3.0 High-intensity range: 2.5-3.5 Refer to indication-specific guidelines for appropriate target ranges for prosthetic heart valve replacement. Current interpretive data was last revised on 2019. Blood 04/15/2024 12:2 5 AM ASSISTANT THERAPY AIDE 04/15/2024 12:48 AM ASSISTANT THERAPY AIDE us Jaycee SOLIS LAB BLOOD ORDERABLES Final Re sult Performing Organization Address City/[facility]/ZIP Co de Phone Number [facility] [address] [place] [place] [address] * (ABNORMAL) Renal function panel (04/15/2024 12:25 AM ASSISTANT THERAPY AIDE) [facility] Sodium 140 135 - 145 mmol/L Potassium, pl 4.5 3.3 - 4.9 mmol/L [facility] Chloride 103 97 - 110 mmol/L [facility] CO2 27 22 - 32 mmol/L [facility] Anion gap 10 2 - 15 mmol/L [facility] BUN 27(H) 6 - 25 mg/dL [facility] Creatinine 1.17 0.80 - 1.30 mg/dL [facility] Glucose 103 70 - 199 mg/dL [facility] Comment: Interpretive Data Fasting glucose >/= 126 [...] 2022. Calcium 9.5 8.5 - 10.3 mg/dL [facility] Phosphorus, pl 4.2 2.3 - 4.5 mg/dL [facility] Albumin 3.7 3.5 - 5.0 g/dL [facility] Blood 04/15/2024 12:2 5 AM ASSISTANT THERAPY AIDE 04/15/2024 12:48 AM ASSISTANT THERAPY AIDE us Louann Conti MD LAB BLOOD ORDERABLES F inal Result Performing Organization Address City/[facility]/ZIP Co de Phone Number [facility] [address] Department [place] [address] * POCT glucose (04/13/2024 10:44 PM ASSISTANT THERAPY AIDE) [facility] Glucose, POC 102 70 - 199 mg/dL Comment: For Glucose values <35 mg/dl when Hematocrit is >60 mg/dl,the test may not accurately detect significant hypoglycemia,and testing in the Laboratory should be considered if clinically indicated. Blood 04/13/2024 10:4 4 PM ASSISTANT THERAPY AIDE 04/13/2024 10:44 PM ASSISTANT THERAPY AIDE us Louann Conti MD LAB POCT ORDERABLES - DEVICE Final Result [facility] [address] Department [place] [address] * FL Modified Barium Swallow W Video (04/13/2024 2:06 PM ASSISTANT THERAPY AIDE) Anatomical Region Laterality Modality Head and Neck N/A Radio Fluoroscop y 04/13/2024 3:44 PM ASSISTANT THERAPY AIDE Impressions 04/13/2024 4:07 PM ASSISTANT THERAPY AIDE 1. There is silent transglottic aspiration with [...] Mo Stahl M.D. Narrative 04/13/2024 4:07 PM ASSISTANT THERAPY AIDE EXAMINATION: MODIFIED BARIUM SWALLOW 04/05/2024 HISTORY: Dysphagia. [...] Final Result * eGFR (04/12/2024 1:38 AM ASSISTANT THERAPY AIDE) eGFR 68 >=60 mL/min/1. 73 m2 Comment: [...] last reviewed 2021. Blood 04/12/2024 1:38 AM ASSISTANT THERAPY AIDE 04/12/2024 1:58 AM ASSISTANT THERAPY AIDE Tara Ram MD LAB BLOOD ORDERABLES Final Result [facility] [address] [place] [address] * Differential, auto (04/12/2024 1:38 AM ASSISTANT THERAPY AIDE) Neutrophil abs 4.4 1.5 - 6.5 K/cumm Imm gran abs 0.1 0.0 - 0.1 K/cumm [facility] Lymphocyte abs 0.9 0.8 - 3.3 K/cumm [facility] Monocyte abs 0.6 0.2 - 0.8 K/cumm [facility] Eosinophil abs 0.5 0.0 - 0.5 K/cumm [facility] Basophil abs 0.1 0.0 - 0.1 K/cumm [facility] Neutrophil pct 66.9 % [facility] Comment: Interpretive Data Percent cell count reference ranges are not reported, since discordance with absolute values may lead to misinterpretation of CBC data. Current Interpretive Data was last revised on 2017. Imm gran pct 0.9 % [facility] Comment: Interpretive Data Percent cell count reference ranges are not reported, since discordance with absolute values may lead to misinterpretation of CBC data. Current Interpretive Data was last revised on 2017. Lymphocyte pct 13.7 % [facility] Comment: Interpretive Data Percent cell count reference ranges are not reported, since discordance with absolute values may lead to misinterpretation of CBC data. Current Interpretive Data was last revised on 2017. Monocyte pct 9.6 % [facility] Comment: Interpretive Data Percent cell count reference ranges are not reported, since discordance with absolute values may lead to misinterpretation of CBC data. Current Interpretive Data was last revised on 2017. Eosinophil pct 7.4 % [facility] Comment: Interpretive Data Percent cell count reference ranges are not reported, since discordance with absolute values may lead to misinterpretation of CBC data. Current Interpretive Data was last revised on 2017. Basophil pct 1.5 % [facility] Comment: Interpretive Data Percent cell count reference ranges are not reported, since discordance with absolute values may lead to misinterpretation of CBC data. Current Interpretive Data was last revised on 2017. Blood 04/12/2024 1:38 AM ASSISTANT THERAPY AIDE 04/12/2024 1:58 AM ASSISTANT THERAPY AIDE us Tara Ram MD LAB BLOOD ORDERABLES Final Result [facility] [address] [place] [address] * (ABNORMAL) CBC with auto differential (04/12/2024 1:38 AM ASSISTANT THERAPY AIDE) WBC 6.6 3.8 - 9.9 K/cumm Hgb 10.2(L) 13.0 - 17.5 g/dL [facility] Hct 31.6(L) 38.9 - 50.3 % [facility] Plt 270 150 - 400 K/cumm [facility] MPV 9.1 9.1 - 12.3 fL [facility] RBC 3.56(L) 4.30 - 5.80 M/cumm [facility] MCV 88.8 81.3 - 96.4 fL [facility] MCH 28.7 27.1 - 33.3 pg [facility] MCHC 32.3 32.3 - 35.7 g/dL [facility] RDW CV 12.8 11.1 - 14.9 % [facility] RDW SD 41.6 35.7 - 48.1 fL [facility] NRBC abs 0.00 0.00 - 0.01 K/cumm [facility] Blood 04/12/2024 1:38 AM ASSISTANT THERAPY AIDE 04/12/2024 1:58 AM ASSISTANT THERAPY AIDE Tara Ram MD LAB BLOOD ORDERABLES Final Result Performing Organization Address City/[facility] Co de Phone Number [facility] [address] [facility] [employer] [place], [place] [id number] * Magnesium (04/12/2024 1:38 AM ASSISTANT THERAPY AIDE) [facility] Magnesium 2.3 1.4 - 2.5 mg/dL Blood 04/12/2024 1:38 AM ASSISTANT THERAPY AIDE 04/12/2024 1:58 AM ASSISTANT THERAPY AIDE Tara Ram MD LAB BLOOD ORDERABLES Final Result [facility] [address] [facility] [place] [address] * Renal function panel (04/12/2024 1:38 AM ASSISTANT THERAPY AIDE) Pathologist [facility] Sodium 137 135 - 145 mmol/L Potassium, pl 4.4 3.3 - 4.9 mmol/L [facility] Chloride 102 97 - 110 mmol/L [facility] CO2 24 22 - 32 mmol/L [facility] Anion gap 11 2 - 15 mmol/L [facility] BUN 25 6 - 25 mg/dL [facility] Creatinine 1.07 0.80 - 1.30 mg/dL [facility] Glucose 115 70 - 199 mg/dL [facility] Comment: Interpretive Data Fasting glucose >/= 126 [...] 2022. Calcium 9.6 8.5 - 10.3 mg/dL [facility] Phosphorus, pl 4.1 2.3 - 4.5 mg/dL [facility] Albumin 3.6 3.5 - 5.0 g/dL [facility] Blood 04/12/2024 1:38 AM ASSISTANT THERAPY AIDE 04/12/2024 1:58 AM ASSISTANT THERAPY AIDE us Tara Ram MD LAB BLOOD ORDERABLES Final Result [facility] [address] Department [place] [address] * eGFR (04/10/2024 12:21 AM ASSISTANT THERAPY AIDE) eGFR 65 >=60 mL/min/1. 73 m2 Comment: [...] reviewed 2021. Blood 04/10/2024 12:2 1 AM ASSISTANT THERAPY AIDE 04/10/2024 12:46 AM ASSISTANT THERAPY AIDE us Tara Ram MD LAB BLOOD ORDERABLES Final Result [facility] [address] [place] [address] * (ABNORMAL) CBC without differential (04/10/2024 12:21 AM ASSISTANT THERAPY AIDE) WBC 5.1 3.8 - 9.9 K/cumm Hgb 10.2(L) 13.0 - 17.5 g/dL [facility] Hct 31.7(L) 38.9 - 50.3 % [facility] Plt 274 150 - 400 K/cumm [facility] MPV 8.6(L) 9.1 - 12.3 fL [facility] RBC 3.55(L) 4.30 - 5.80 M/cumm [facility] MCV 89.3 81.3 - 96.4 fL [facility] MCH 28.7 27.1 - 33.3 pg [facility] MCHC 32.2(L) 32.3 - 35.7 g/dL [facility] RDW CV 12.7 11.1 - 14.9 % [facility] RDW SD 41.6 35.7 - 48.1 fL [facility] NRBC abs 0.00 0.00 - 0.01 K/cumm [facility] Blood 04/10/2024 12:2 1 AM ASSISTANT THERAPY AIDE 04/10/2024 12:46 AM ASSISTANT THERAPY AIDE Tara Ram MD LAB BLOOD ORDERABLES Final Result Performing Organization Address City/[facility]/ZIP Co de Phone Number [facility] [address] Department [place] [address] * Magnesium (04/10/2024 12:21 AM ASSISTANT THERAPY AIDE) [facility] Magnesium 2.4 1.4 - 2.5 mg/dL Blood 04/10/2024 12:2 1 AM ASSISTANT THERAPY AIDE 04/10/2024 12:46 AM ASSISTANT THERAPY AIDE Tara Ram MD LAB BLOOD ORDERABLES Final Result Performing Organization Address [facility] de Phone Number [facility] [address] [place] [address] * Renal function panel (04/10/2024 12:21 AM ASSISTANT THERAPY AIDE) [facility] Sodium 138 135 - 145 mmol/L Potassium, pl 4.6 3.3 - 4.9 mmol/L [facility] Chloride 101 97 - 110 mmol/L [facility] CO2 28 22 - 32 mmol/L [facility] Anion gap 9 2 - 15 mmol/L [facility] BUN 23 6 - 25 mg/dL [facility] Creatinine 1.12 0.80 - 1.30 mg/dL [facility] Glucose 85 70 - 199 mg/dL [facility] Comment: Interpretive Data Fasting glucose >/= 126 [...] 2022. Calcium 9.6 8.5 - 10.3 mg/dL [facility] Phosphorus, pl 4.1 2.3 - 4.5 mg/dL [facility] Albumin 3.7 3.5 - 5.0 g/dL [facility] Blood 04/10/2024 12:2 1 AM ASSISTANT THERAPY AIDE 04/10/2024 12:46 AM ASSISTANT THERAPY AIDE Tara Ram MD LAB BLOOD ORDERABLES Final Result Performing Organization Address City/[facility] Co de Phone Number [facility] [address] [place] [address] * eGFR (04/09/2024 12:26 AM ASSISTANT THERAPY AIDE) eGFR 74 >=60 mL/min/1. 73 m2 Comment: [...] reviewed 2021. Blood 04/09/2024 12:2 6 AM ASSISTANT THERAPY AIDE 04/09/2024 1:19 AM ASSISTANT THERAPY AIDE Tara Ram MD LAB BLOOD ORDERABLES Final Result Performing Organization Address City/[facility]/ZIP Co de Phone Number [facility] [address] [place] [address] * (ABNORMAL) CBC without differential (04/09/2024 12:26 AM ASSISTANT THERAPY AIDE) WBC 5.8 3.8 - 9.9 K/cumm Hgb 9.9(L) 13.0 - 17.5 g/dL [facility] Hct 31.6(L) 38.9 - 50.3 % [facility] Plt 289 150 - 400 K/cumm [facility] MPV 9.4 9.1 - 12.3 fL [facility] RBC 3.44(L) 4.30 - 5.80 M/cumm [facility] MCV 91.9 81.3 - 96.4 fL [facility] MCH 28.8 27.1 - 33.3 pg [facility] MCHC 31.3(L) 32.3 - 35.7 g/dL [facility] RDW CV 12.7 11.1 - 14.9 % [facility] RDW SD 42.0 35.7 - 48.1 fL [facility] NRBC abs 0.00 0.00 - 0.01 K/cumm [facility] Blood 04/09/2024 12:2 6 AM ASSISTANT THERAPY AIDE 04/09/2024 1:20 AM ASSISTANT THERAPY AIDE Tara Ram MD LAB BLOOD ORDERABLES Final Result Performing Organization Address City/[facility] Co de Phone Number [facility] [address] [employer] [place], [place] [id number] * Magnesium (04/09/2024 12:26 AM ASSISTANT THERAPY AIDE) [facility] Magnesium 2.3 1.4 - 2.5 mg/dL Blood 04/09/2024 12:2 6 AM ASSISTANT THERAPY AIDE 04/09/2024 1:19 AM ASSISTANT THERAPY AIDE Tara Ram MD LAB BLOOD ORDERABLES Final Result Performing Organization Address City/[facility]/ZIP Co de Phone Number [facility] [address] [place] [address] * (ABNORMAL) Renal function panel (04/09/2024 12:26 AM ASSISTANT THERAPY AIDE) Sodium 138 135 - 145 mmol/L Potassium, pl 4.6 3.3 - 4.9 mmol/L [facility] Chloride 103 97 - 110 mmol/L [facility] CO2 25 22 - 32 mmol/L [facility] Anion gap 10 2 - 15 mmol/L [facility] BUN 24 6 - 25 mg/dL [facility] Creatinine 1.00 0.80 - 1.30 mg/dL [facility] Glucose 90 70 - 199 mg/dL [facility] Comment: Interpretive Data Fasting glucose >/= 126 [...] 2022. Calcium 9.3 8.5 - 10.3 mg/dL [facility] Phosphorus, pl 3.7 2.3 - 4.5 mg/dL [facility] Albumin 3.3(L) 3.5 - 5.0 g/dL [facility] Blood 04/09/2024 12:2 6 AM ASSISTANT THERAPY AIDE 04/09/2024 1:19 AM ASSISTANT THERAPY AIDE Tara Ram MD LAB BLOOD ORDERABLES Final Result [facility] [address] Department [place] [address] * [place] Carotids Duplex Bilateral (04/08/2024 5:50 PM ASSISTANT THERAPY AIDE) Anatomical Region Laterality Modality Vascular Bilateral Ultrasound 04/09/2024 4:26 PM ASSISTANT THERAPY AIDE Impressions 04/09/2024 4:26 PM ASSISTANT THERAPY AIDE 1) Diffuse atherosclerotic change throughout the bilateral [...] Onur Martinez MD Narrative 04/09/2024 4:26 PM ASSISTANT THERAPY AIDE DATE:04/08/2024 9:30 AM EXAM: Duplex imaging of [...] Re sult * eGFR (04/08/2024 12:52 AM ASSISTANT THERAPY AIDE) eGFR 68 >=60 mL/min/1. 73 m2 Comment: [...] reviewed 2021. Blood 04/08/2024 12:5 2 AM ASSISTANT THERAPY AIDE 04/08/2024 1:05 AM ASSISTANT THERAPY AIDE us Tara Ram MD LAB BLOOD ORDERABLES Final Result [facility] [address] Department [place] [address] * Differential, auto (04/08/2024 12:52 AM ASSISTANT THERAPY AIDE) Neutrophil abs 4.4 1.5 - 6.5 K/cumm Imm gran abs 0.0 0.0 - 0.1 K/cumm [facility] Lymphocyte abs 0.9 0.8 - 3.3 K/cumm [facility] Monocyte abs 0.7 0.2 - 0.8 K/cumm [facility] Eosinophil abs 0.3 0.0 - 0.5 K/cumm [facility] Basophil abs 0.1 0.0 - 0.1 K/cumm [facility] Neutrophil pct 68.1 % [facility] Comment: Interpretive Data Percent cell count reference ranges are not reported, since discordance with absolute values may lead to misinterpretation of CBC data. Current Interpretive Data was last revised on 2017. Imm gran pct 0.6 % [facility] Comment: Interpretive Data Percent cell count reference ranges are not reported, since discordance with absolute values may lead to misinterpretation of CBC data. Current Interpretive Data was last revised on 2017. Lymphocyte pct 14.0 % [facility] Comment: Interpretive Data Percent cell count reference ranges are not reported, since discordance with absolute values may lead to misinterpretation of CBC data. Current Interpretive Data was last revised on 2017. Monocyte pct 10.6 % [facility] Comment: Interpretive Data Percent cell count reference ranges are not reported, since discordance with absolute values may lead to misinterpretation of CBC data. Current Interpretive Data was last revised on 2017. Eosinophil pct 5.3 % [facility] Comment: Interpretive Data Percent cell count reference ranges are not reported, since discordance with absolute values may lead to misinterpretation of CBC data. Current Interpretive Data was last revised on 2017. Basophil pct 1.4 % [facility] Comment: Interpretive Data Percent cell count reference ranges are not reported, since discordance with absolute values may lead to misinterpretation of CBC data. Current Interpretive Data was last revised on 2017. Blood 04/08/2024 12:5 2 AM ASSISTANT THERAPY AIDE 04/08/2024 1:05 AM ASSISTANT THERAPY AIDE Tara Ram MD LAB BLOOD ORDERABLES Final Result Performing Organization Address City/[facility]/ZIP Co de Phone Number [facility] [address] Department [place] [address] * (ABNORMAL) CBC with auto differential (04/08/2024 12:52 AM ASSISTANT THERAPY AIDE) WBC 6.4 3.8 - 9.9 K/cumm Hgb 10.5(L) 13.0 - 17.5 g/dL [facility] Hct 33.7(L) 38.9 - 50.3 % [facility] Plt 288 150 - 400 K/cumm [facility] MPV 9.1 9.1 - 12.3 fL [facility] RBC 3.74(L) 4.30 - 5.80 M/cumm [facility] MCV 90.1 81.3 - 96.4 fL [facility] MCH 28.1 27.1 - 33.3 pg [facility] MCHC 31.2(L) 32.3 - 35.7 g/dL [facility] RDW CV 12.5 11.1 - 14.9 % [facility] RDW SD 41.2 35.7 - 48.1 fL [facility] NRBC abs 0.00 0.00 - 0.01 K/cumm [facility] Blood 04/08/2024 12:5 2 AM ASSISTANT THERAPY AIDE 04/08/2024 1:05 AM ASSISTANT THERAPY AIDE Tara Ram MD LAB BLOOD ORDERABLES Final Result Performing Organization Address City/[facility]/ZIP Co de Phone Number [facility] [address] Department [place] [address] * Magnesium (04/08/2024 12:52 AM ASSISTANT THERAPY AIDE) Pathologist [facility] Magnesium 2.3 1.4 - 2.5 mg/dL Blood 04/08/2024 12:5 2 AM ASSISTANT THERAPY AIDE 04/08/2024 1:05 AM ASSISTANT THERAPY AIDE Tara Ram MD LAB BLOOD ORDERABLES Final Result [facility] [address] [place] [address] * (ABNORMAL) Renal function panel (04/08/2024 12:52 AM ASSISTANT THERAPY AIDE) [facility] Sodium 138 135 - 145 mmol/L Potassium, pl 5.0(H) 3.3 - 4.9 mmol/L [facility] Chloride 102 97 - 110 mmol/L [facility] CO2 25 22 - 32 mmol/L [facility] Anion gap 11 2 - 15 mmol/L [facility] BUN 25 6 - 25 mg/dL [facility] Creatinine 1.07 0.80 - 1.30 mg/dL [facility] Glucose 89 70 - 199 mg/dL [facility] Comment: Interpretive Data Fasting glucose >/= 126 [...] 2022. Calcium 9.3 8.5 - 10.3 mg/dL [facility] Phosphorus, pl 3.4 2.3 - 4.5 mg/dL [facility] Albumin 3.4(L) 3.5 - 5.0 g/dL [facility] Blood 04/08/2024 12:5 2 AM ASSISTANT THERAPY AIDE 04/08/2024 1:05 AM ASSISTANT THERAPY AIDE us Tara Ram MD LAB BLOOD ORDERABLES Final Result [facility] [address] Department [place] [address] * MRI Brain WO Contrast (04/08/2024 12:24 AM ASSISTANT THERAPY AIDE) Anatomical Region Laterality Modality Head and Neck N/A Magnetic Resonan ce 04/08/2024 8:48 AM ASSISTANT THERAPY AIDE Impressions 04/08/2024 10:01 AM ASSISTANT THERAPY AIDE 1. Approximately 5 punctate foci of diffusion [...] Malloy MD, PHD Narrative 04/08/2024 10:01 AM ASSISTANT THERAPY AIDE EXAMINATION: Magnetic resonance imaging (MRI) of the [...] R esult * eGFR (04/07/2024 12:51 AM ASSISTANT THERAPY AIDE) eGFR 72 >=60 mL/min/1. 73 m2 Comment: [...] reviewed 2021. Blood 04/07/2024 12:5 1 AM ASSISTANT THERAPY AIDE 04/07/2024 1:14 AM ASSISTANT THERAPY AIDE us Marissa Vitale DO LAB BLOOD ORDERABLES F inal Result [facility] [address] Department of Laboratories [place], [place] [id number] * (ABNORMAL) Differential, auto (04/07/2024 12:51 AM ASSISTANT THERAPY AIDE) Neutrophil abs 4.7 1.5 - 6.5 K/cumm Imm gran abs 0.0 0.0 - 0.1 K/cumm [facility] Lymphocyte abs 0.7(L) 0.8 - 3.3 K/cumm [facility] Monocyte abs 0.6 0.2 - 0.8 K/cumm [facility] Eosinophil abs 0.3 0.0 - 0.5 K/cumm [facility] Basophil abs 0.1 0.0 - 0.1 K/cumm [facility] Neutrophil pct 73.0 % [facility] Comment: Interpretive Data Percent cell count reference ranges are not reported, since discordance with absolute values may lead to misinterpretation of CBC data. Current Interpretive Data was last revised on 2017. Imm gran pct 0.3 % [facility] Comment: Interpretive Data Percent cell count reference ranges are not reported, since discordance with absolute values may lead to misinterpretation of CBC data. Current Interpretive Data was last revised on 2017. Lymphocyte pct 11.5 % [facility] Comment: Interpretive Data Percent cell count reference ranges are not reported, since discordance with absolute values may lead to misinterpretation of CBC data. Current Interpretive Data was last revised on 2017. Monocyte pct 9.5 % [facility] Comment: Interpretive Data Percent cell count reference ranges are not reported, since discordance with absolute values may lead to misinterpretation of CBC data. Current Interpretive Data was last revised on 2017. Eosinophil pct 4.5 % [facility] Comment: Interpretive Data Percent cell count reference ranges are not reported, since discordance with absolute values may lead to misinterpretation of CBC data. Current Interpretive Data was last revised on 2017. Basophil pct 1.2 % [facility] Comment: Interpretive Data Percent cell count reference ranges are not reported, since discordance with absolute values may lead to misinterpretation of CBC data. Current Interpretive Data was last revised on 2017. Blood 04/07/2024 12:5 1 AM ASSISTANT THERAPY AIDE 04/07/2024 1:14 AM ASSISTANT THERAPY AIDE us Marissa Vitale DO LAB BLOOD ORDERABLES F inal Result Performing Organization Address [facility]/ZIP Co de Phone Number [facility] [address] Department [place] [address] * (ABNORMAL) CBC with auto differential (04/07/2024 12:51 AM ASSISTANT THERAPY AIDE) [facility] WBC 6.4 3.8 - 9.9 K/cumm Hgb 9.6(L) 13.0 - 17.5 g/dL [facility] Hct 29.6(L) 38.9 - 50.3 % [facility] Plt 270 150 - 400 K/cumm [facility] MPV 9.0(L) 9.1 - 12.3 fL [facility] RBC 3.35(L) 4.30 - 5.80 M/cumm [facility] MCV 88.4 81.3 - 96.4 fL [facility] MCH 28.7 27.1 - 33.3 pg [facility] MCHC 32.4 32.3 - 35.7 g/dL [facility] RDW CV 12.5 11.1 - 14.9 % [facility] RDW SD 40.3 35.7 - 48.1 fL [facility] NRBC abs 0.00 0.00 - 0.01 K/cumm [facility] Blood 04/07/2024 12:5 1 AM ASSISTANT THERAPY AIDE 04/07/2024 1:14 AM ASSISTANT THERAPY AIDE Marissa Vitale DO LAB BLOOD ORDERABLES F inal Result Performing Organization Address [facility]/ZIP Co de Phone Number [facility] [address] Department of Laboratories [place], [place] [id number] * (ABNORMAL) Renal function panel (04/07/2024 12:51 AM ASSISTANT THERAPY AIDE) [facility] Sodium 135 135 - 145 mmol/L Potassium, pl 4.4 3.3 - 4.9 mmol/L [facility] Chloride 101 97 - 110 mmol/L [facility] CO2 26 22 - 32 mmol/L [facility] Anion gap 8 2 - 15 mmol/L [facility] BUN 28(H) 6 - 25 mg/dL [facility] Creatinine 1.03 0.80 - 1.30 mg/dL [facility] Glucose 136 70 - 199 mg/dL [facility] Comment: Interpretive Data Fasting glucose >/= 126 [...] 2022. Calcium 8.9 8.5 - 10.3 mg/dL [facility] Phosphorus, pl 2.8 2.3 - 4.5 mg/dL [facility] Albumin 3.2(L) 3.5 - 5.0 g/dL [facility] Blood 04/07/2024 12:5 1 AM ASSISTANT THERAPY AIDE 04/07/2024 1:14 AM ASSISTANT THERAPY AIDE Marissa Vitale LAB BLOOD ORDERABLES F inal Result Performing Organization Address [facility]/ZIP Co de Phone Number [facility] [address] [place] [address] * (ABNORMAL) Hemoglobin and hematocrit (04/06/2024 5:18 PM ASSISTANT THERAPY AIDE) [facility] Hgb 9.5(L) 13.0 - 17.5 g/dL Hct 29.0(L) 38.9 - 50.3 % [facility] Blood 04/06/2024 5:18 PM ASSISTANT THERAPY AIDE 04/06/2024 5:48 PM ASSISTANT THERAPY AIDE Marissa Moni Prematicscecilia TherOx LAB BLOOD ORDERABLES F inal Result Performing Organization Address City/[facility]/ZIP Co de Phone Number [facility] [address] Department [place] [address] * XR Chest 1 View (04/06/2024 5:06 AM ASSISTANT THERAPY AIDE) Anatomical Region Laterality Modality Body, Chest N/A Computed Radiogr aphy 04/06/2024 9:04 AM ASSISTANT THERAPY AIDE Impressions 04/06/2024 9:04 AM ASSISTANT THERAPY AIDE Feeding tube courses below the diaphragm, loops [...] Goldstein MD, PHD Narrative 04/06/2024 9:04 AM ASSISTANT THERAPY AIDE EXAMINATION: XR CHEST 1 VIEW HISTORY: Shortness [...] Add on lab test (04/06/2024 3:29 AM ASSISTANT THERAPY AIDE) Acceptable Yes Blood 04/06/2024 3:29 AM ASSISTANT THERAPY AIDE 04/06/2024 3:30 AM ASSISTANT THERAPY AIDE Narrative [facility] - 04/06/2024 3:31 AM ASSISTANT THERAPY AIDE Name of Test->Renal function panel Pedro Senior MD LAB BLOOD ORDERABLES Final R esult Performing Organization Address [facility] Co de Phone Number [facility] [address] Department of [employer] [place], [place] [id number] * eGFR (04/06/2024 2:29 AM ASSISTANT THERAPY AIDE) eGFR 63 >=60 mL/min/1. 73 m2 Comment: [...] last reviewed 2021. Blood 04/06/2024 2:29 AM ASSISTANT THERAPY AIDE 04/06/2024 2:29 AM ASSISTANT THERAPY AIDE Marissa Vitale DO LAB BLOOD ORDERABLES F inal Result Performing Organization Address [facility]/ZIP Co de Phone Number [facility] [address] Department of Laboratories [place], [place] [id number] * (ABNORMAL) Differential, auto (04/06/2024 2:29 AM ASSISTANT THERAPY AIDE) Neutrophil abs 7.5(H) 1.5 - 6.5 K/cumm Imm gran abs 0.0 0.0 - 0.1 K/cumm [facility] Lymphocyte abs 0.6(L) 0.8 - 3.3 K/cumm [facility] Monocyte abs 0.8 0.2 - 0.8 K/cumm [facility] Eosinophil abs 0.1 0.0 - 0.5 K/cumm [facility] Basophil abs 0.1 0.0 - 0.1 K/cumm [facility] Neutrophil pct 82.2 % [facility] Comment: Interpretive Data Percent cell count reference ranges are not reported, since discordance with absolute values may lead to misinterpretation of CBC data. Current Interpretive Data was last revised on 2017. Imm gran pct 0.4 % [facility] Comment: Interpretive Data Percent cell count reference ranges are not reported, since discordance with absolute values may lead to misinterpretation of CBC data. Current Interpretive Data was last revised on 2017. Lymphocyte pct 7.0 % [facility] Comment: Interpretive Data Percent cell count reference ranges are not reported, since discordance with absolute values may lead to misinterpretation of CBC data. Current Interpretive Data was last revised on 2017. Monocyte pct 8.2 % [facility] Comment: Interpretive Data Percent cell count reference ranges are not reported, since discordance with absolute values may lead to misinterpretation of CBC data. Current Interpretive Data was last revised on 2017. Eosinophil pct 1.4 % [facility] Comment: Interpretive Data Percent cell count reference ranges are not reported, since discordance with absolute values may lead to misinterpretation of CBC data. Current Interpretive Data was last revised on 2017. Basophil pct 0.8 % [facility] Comment: Interpretive Data Percent cell count reference ranges are not reported, since discordance with absolute values may lead to misinterpretation of CBC data. Current Interpretive Data was last revised on 2017. Blood 04/06/2024 2:29 AM ASSISTANT THERAPY AIDE 04/06/2024 2:29 AM ASSISTANT THERAPY AIDE us Marissa Vitale DO LAB BLOOD ORDERABLES F inal Result [facility] [address] Department [place] [address] * (ABNORMAL) Procalcitonin (04/06/2024 2:29 AM ASSISTANT THERAPY AIDE) [facility] Procalcitonin 0.76(H) <=0.25 ng/mL Blood 04/06/2024 2:29 AM ASSISTANT THERAPY AIDE 04/06/2024 2:29 AM ASSISTANT THERAPY AIDE Marissa Moni Vitale DO LAB BLOOD ORDERABLES F inal Result Performing Organization Address [facility]/ZIP Co de Phone Number [facility] [address] [employer] [place], [place] [id number] * (ABNORMAL) CBC with auto differential (04/06/2024 2:29 AM ASSISTANT THERAPY AIDE) [facility] WBC 9.1 3.8 - 9.9 K/cumm Hgb 9.3(L) 13.0 - 17.5 g/dL [facility] Hct 28.1(L) 38.9 - 50.3 % [facility] Plt 256 150 - 400 K/cumm [facility] MPV 9.1 9.1 - 12.3 fL [facility] RBC 3.18(L) 4.30 - 5.80 M/cumm [facility] MCV 88.4 81.3 - 96.4 fL [facility] MCH 29.2 27.1 - 33.3 pg [facility] MCHC 33.1 32.3 - 35.7 g/dL [facility] RDW CV 12.4 11.1 - 14.9 % [facility] RDW SD 40.1 35.7 - 48.1 fL [facility] NRBC abs 0.00 0.00 - 0.01 K/cumm [facility] Blood 04/06/2024 2:29 AM ASSISTANT THERAPY AIDE 04/06/2024 2:29 AM ASSISTANT THERAPY AIDE Marissa Vitale DO LAB BLOOD ORDERABLES F inal Result Performing Organization Address City/[facility]/ZIP Co de Phone Number [facility] [address] [place] [address] * (ABNORMAL) Renal function panel (04/06/2024 2:29 AM ASSISTANT THERAPY AIDE) Pathologist [facility] Sodium 128(L) 135 - 145 mmol/L Potassium, pl 4.6 3.3 - 4.9 mmol/L [facility] Chloride 96(L) 97 - 110 mmol/L [facility] CO2 20(L) 22 - 32 mmol/L [facility] Anion gap 12 2 - 15 mmol/L [facility] BUN 29(H) 6 - 25 mg/dL [facility] Creatinine 1.15 0.80 - 1.30 mg/dL [facility] Glucose 144 70 - 199 mg/dL [facility] Comment: Interpretive Data Fasting glucose >/= 126 [...] 2022. Calcium 8.5 8.5 - 10.3 mg/dL [facility] Phosphorus, pl 2.8 2.3 - 4.5 mg/dL [facility] Albumin 3.0(L) 3.5 - 5.0 g/dL [facility] Blood 04/06/2024 2:29 AM ASSISTANT THERAPY AIDE 04/06/2024 2:29 AM ASSISTANT THERAPY AIDE us Marissa Vitale DO LAB BLOOD ORDERABLES F inal Result [facility] [address] Department [place] [address] * (ABNORMAL) Blood gas, venous (04/06/2024 2:15 AM ASSISTANT THERAPY AIDE) Pathologist [facility] pH, Venous 7.40 7.32 - 7.43 PCO2, Venous 37(L) 40 - 50 mmHg [facility] PO2, Venous 75 mmHg [facility] Comment: Interpretive Data No Reference Range Established Current Interpretive Data was last revised on 2017. HCO3 Venous, Calculated 23 20 - 30 mmol/L [facility] BE, venous -2 mmol/L [facility] Comment: nterpretive Data No Reference Range Established Current Interpretive Data was last revised on 2017. Blood 04/06/2024 2:15 AM ASSISTANT THERAPY AIDE 04/06/2024 2:25 AM ASSISTANT THERAPY AIDE Marissa Vitale DO LAB BLOOD ORDERABLES F inal Result Performing Organization Address City/[facility]/ZIP Co de Phone Number [facility] [address] Department [place] [address] * POCT glucose (04/05/2024 12:05 PM ASSISTANT THERAPY AIDE) [facility] Signature Glucose, POC 77 70 - 199 mg/dL Comment: For Glucose values <35 mg/dl when Hematocrit is >60 mg/dl,the test may not accurately detect significant hypoglycemia,and testing in the Laboratory should be considered if clinically indicated. Blood 04/05/2024 12:0 5 PM ASSISTANT THERAPY AIDE 04/05/2024 12:05 PM ASSISTANT THERAPY AIDE Marissa Vitale DO LAB POCT ORDERABLES - DEVICE Final Result Performing Organization Address [facility]/ZIP Co de Phone Number [facility] [address] Department [place] [address] * XR Kub (04/05/2024 10:23 AM ASSISTANT THERAPY AIDE) Anatomical Region Laterality Modality Body, Abdomen N/A Computed Radiogr aphy 04/05/2024 10:4 4 AM ASSISTANT THERAPY AIDE Impressions 04/05/2024 10:44 AM ASSISTANT THERAPY AIDE Interval placement of a Dobbhoff catheter. Its [...] Eloisa Tineo M.D. Narrative 04/05/2024 10:44 AM ASSISTANT THERAPY AIDE EXAMINATION: KUB-abdomen one view HISTORY: Dobbhoff COMPARISON: [...] Barium Swallow W Video (04/05/2024 9:52 AM ASSISTANT THERAPY AIDE) Anatomical Region Laterality Modality Head and Neck N/A Radio Fluoroscop y 04/05/2024 10:4 6 AM ASSISTANT THERAPY AIDE Impressions 04/05/2024 2:51 PM ASSISTANT THERAPY AIDE 1. There is transglottic aspiration with thin [...] Mo Stahl M.D. Narrative 04/05/2024 2:51 PM ASSISTANT THERAPY AIDE EXAMINATION: MODIFIED BARIUM SWALLOW 04/05/2024 HISTORY: Dysphagia. [...] Result * POCT glucose (04/05/2024 4:30 AM ASSISTANT THERAPY AIDE) Glucose, POC 71 70 - 199 mg/dL Comment: For Glucose values <35 mg/dl when Hematocrit is >60 mg/dl,the test may not accurately detect significant hypoglycemia,and testing in the Laboratory should be considered if clinically indicated. Blood 04/05/2024 4:30 AM ASSISTANT THERAPY AIDE 04/05/2024 4:30 AM ASSISTANT THERAPY AIDE us Krishna Salcedo MD LAB POCT ORDERABLES - DEVICE Final Result Performing Organization Address [facility] Co de Phone Number [facility] [address] [place] [place] [address] * eGFR (04/05/2024 3:39 AM ASSISTANT THERAPY AIDE) eGFR 65 >=60 mL/min/1. 73 m2 Comment: [...] last reviewed 2021. Blood 04/05/2024 3:39 AM ASSISTANT THERAPY AIDE 04/05/2024 3:53 AM ASSISTANT THERAPY AIDE Tian Long MD LAB BLOOD ORDERABLES Final Result Performing Organization Address [facility] Co de Phone Number [facility] [address] [place] [place] [address] * (ABNORMAL) CBC without differential (04/05/2024 3:39 AM ASSISTANT THERAPY AIDE) [facility] WBC 8.8 3.8 - 9.9 K/cumm Hgb 10.5(L) 13.0 - 17.5 g/dL [facility] Hct 32.3(L) 38.9 - 50.3 % [facility] Plt 284 150 - 400 K/cumm [facility] MPV 8.8(L) 9.1 - 12.3 fL [facility] RBC 3.67(L) 4.30 - 5.80 M/cumm [facility] MCV 88.0 81.3 - 96.4 fL [facility] MCH 28.6 27.1 - 33.3 pg [facility] MCHC 32.5 32.3 - 35.7 g/dL [facility] RDW CV 12.3 11.1 - 14.9 % [facility] RDW SD 39.8 35.7 - 48.1 fL [facility] NRBC abs 0.00 0.00 - 0.01 K/cumm [facility] Blood 04/05/2024 3:39 AM ASSISTANT THERAPY AIDE 04/05/2024 3:53 AM ASSISTANT THERAPY AIDE us Krishna Salcedo MD LAB BLOOD ORDERABLES Final R esult Performing Organization Address City/[facility]/ZIP Co de Phone Number [facility] [address] [place] [address] * Magnesium (04/05/2024 3:39 AM ASSISTANT THERAPY AIDE) [facility] Magnesium 2.2 1.4 - 2.5 mg/dL Blood 04/05/2024 3:39 AM ASSISTANT THERAPY AIDE 04/05/2024 3:53 AM ASSISTANT THERAPY AIDE Marissa Vitale DO LAB BLOOD ORDERABLES F inal Result Performing Organization Address [facility] Co de Phone Number [facility] [address] [place] [address] * (ABNORMAL) Renal function panel (04/05/2024 3:39 AM ASSISTANT THERAPY AIDE) Pathologist [facility] Sodium 131(L) 135 - 145 mmol/L Potassium, pl 4.5 3.3 - 4.9 mmol/L [facility] Chloride 97 97 - 110 mmol/L [facility] CO2 20(L) 22 - 32 mmol/L [facility] Anion gap 14 2 - 15 mmol/L [facility] BUN 19 6 - 25 mg/dL [facility] Creatinine 1.11 0.80 - 1.30 mg/dL [facility] Glucose 63(L) 70 - 199 mg/dL [facility] Comment: Interpretive Data Fasting glucose >/= 126 [...] 2022. Calcium 8.7 8.5 - 10.3 mg/dL [facility] Phosphorus, pl 3.3 2.3 - 4.5 mg/dL [facility] Albumin 3.3(L) 3.5 - 5.0 g/dL [facility] Blood 04/05/2024 3:39 AM ASSISTANT THERAPY AIDE 04/05/2024 3:53 AM ASSISTANT THERAPY AIDE us Tian Long MD LAB BLOOD ORDERABLES Final Result [facility] [address] [place] [address] * eGFR (04/04/2024 4:18 PM ASSISTANT THERAPY AIDE) eGFR 61 >=60 mL/min/1. 73 m2 Comment: [...] last reviewed 2021. Blood 04/04/2024 4:18 PM ASSISTANT THERAPY AIDE 04/04/2024 4:30 PM ASSISTANT THERAPY AIDE us Tian Long MD LAB BLOOD ORDERABLES Final Result [facility] [address] [place] [address] * (ABNORMAL) Renal function panel (04/04/2024 4:18 PM ASSISTANT THERAPY AIDE) Sodium 131(L) 135 - 145 mmol/L Potassium, pl 4.7 3.3 - 4.9 mmol/L [facility] Chloride 99 97 - 110 mmol/L [facility] CO2 20(L) 22 - 32 mmol/L [facility] Anion gap 12 2 - 15 mmol/L [facility] BUN 22 6 - 25 mg/dL [facility] Creatinine 1.18 0.80 - 1.30 mg/dL [facility] Glucose 76 70 - 199 mg/dL [facility] Comment: Interpretive Data Fasting glucose >/= 126 [...] 2022. Calcium 8.6 8.5 - 10.3 mg/dL [facility] Phosphorus, pl 4.0 2.3 - 4.5 mg/dL [facility] Albumin 3.0(L) 3.5 - 5.0 g/dL [facility] Blood 04/04/2024 4:18 PM ASSISTANT THERAPY AIDE 04/04/2024 4:30 PM ASSISTANT THERAPY AIDE Tian Long MD LAB BLOOD ORDERABLES Final Result Performing Organization Address [facility] de Phone Number [facility] [address] [facility] [place] [place] [address] * Sodium, urine, random (04/04/2024 6:11 AM ASSISTANT THERAPY AIDE) Sodium, ur 129 mmol/L Comment: Interpretive Data No reference range established. Current interpretive data was last revised 2018. Urine 04/04/2024 6:11 AM ASSISTANT THERAPY AIDE 04/04/2024 6:39 AM ASSISTANT THERAPY AIDE Tian Long MD LAB URINE ORDERABLES Final Result Performing Organization Address [facility] de Phone Number [facility] [address] [facility] [place] [place] [address] * Osmolality, urine (04/04/2024 6:11 AM ASSISTANT THERAPY AIDE) Osmo, ur 549 300 - 800 mOsm/kg Urine 04/04/2024 6:11 AM ASSISTANT THERAPY AIDE 04/04/2024 6:39 AM ASSISTANT THERAPY AIDE Tian Long MD LAB URINE ORDERABLES Final Result Performing Organization Address [facility] de Phone Number [facility] [address] [address] [facility] [place] [address] * Creatinine, urine, random (04/04/2024 6:11 AM ASSISTANT THERAPY AIDE) Creatinine Ur 71.0 mg/dL Comment: Interpretive Data No reference range established. Current interpretive data was last revised 2018. Urine 04/04/2024 6:11 AM ASSISTANT THERAPY AIDE 04/04/2024 6:39 AM ASSISTANT THERAPY AIDE Tian Long MD LAB URINE ORDERABLES Final Result Performing Organization Address [facility] Co de Phone Number [facility] [address] [place] [address] * eGFR (04/04/2024 2:56 AM ASSISTANT THERAPY AIDE) eGFR 60 >=60 mL/min/1. 73 m2 Comment: [...] last reviewed 2021. Blood 04/04/2024 2:56 AM ASSISTANT THERAPY AIDE 04/04/2024 3:16 AM ASSISTANT THERAPY AIDE Tian Long MD LAB BLOOD ORDERABLES Final Result Performing Organization Address City/[facility]/ZIP Co de Phone Number [facility] [address] Department of Laboratories [place], [place] [id number] * (ABNORMAL) CBC without differential (04/04/2024 2:56 AM ASSISTANT THERAPY AIDE) Pathologist [facility] WBC 8.0 3.8 - 9.9 K/cumm Hgb 10.9(L) 13.0 - 17.5 g/dL [facility] Hct 32.5(L) 38.9 - 50.3 % [facility] Plt 278 150 - 400 K/cumm [facility] MPV 9.2 9.1 - 12.3 fL [facility] RBC 3.70(L) 4.30 - 5.80 M/cumm [facility] MCV 87.8 81.3 - 96.4 fL [facility] MCH 29.5 27.1 - 33.3 pg [facility] MCHC 33.5 32.3 - 35.7 g/dL [facility] RDW CV 12.6 11.1 - 14.9 % [facility] RDW SD 40.3 35.7 - 48.1 fL [facility] NRBC abs 0.00 0.00 - 0.01 K/cumm [facility] Blood 04/04/2024 2:56 AM ASSISTANT THERAPY AIDE 04/04/2024 3:16 AM ASSISTANT THERAPY AIDE Krishna Salcedo MD LAB BLOOD ORDERABLES Final R esult Performing Organization Address City/[facility]/ZIP Co de Phone Number [facility] [address] [employer] [place], [place] [phone] * (ABNORMAL) TSH (04/04/2024 2:56 AM ASSISTANT THERAPY AIDE) [facility] Thyroid Stimulating Hormone 11.20(H) 0.30 - 4.20 mcIUnit/mL Blood 04/04/2024 2:56 AM ASSISTANT THERAPY AIDE 04/04/2024 3:16 AM ASSISTANT THERAPY AIDE Krishna Salcedo MD LAB BLOOD ORDERABLES Final R esult Performing Organization Address City/[facility]/ZIP Co de Phone Number [facility] [address] [employer] [place], [place] [phone] * (ABNORMAL) Renal function panel (04/04/2024 2:56 AM ASSISTANT THERAPY AIDE) [facility] Sodium 125(L) 135 - 145 mmol/L Potassium, pl 4.6 3.3 - 4.9 mmol/L [facility] Chloride 94(L) 97 - 110 mmol/L [facility] CO2 20(L) 22 - 32 mmol/L [facility] Anion gap 11 2 - 15 mmol/L [facility] BUN 20 6 - 25 mg/dL [facility] Creatinine 1.20 0.80 - 1.30 mg/dL [facility] Glucose 70 70 - 199 mg/dL [facility] Comment: Interpretive Data Fasting glucose >/= 126 [...] 2022. Calcium 8.5 8.5 - 10.3 mg/dL [facility] Phosphorus, pl 3.9 2.3 - 4.5 mg/dL [facility] Albumin 3.0(L) 3.5 - 5.0 g/dL [facility] Blood 04/04/2024 2:56 AM ASSISTANT THERAPY AIDE 04/04/2024 3:16 AM ASSISTANT THERAPY AIDE Tian Long MD LAB BLOOD ORDERABLES Final Result [facility] [address] Department [place] [address] * eGFR (04/03/2024 5:59 PM ASSISTANT THERAPY AIDE) eGFR 65 >=60 mL/min/1. 73 m2 Comment: [...] last reviewed 2021. Blood 04/03/2024 5:59 PM ASSISTANT THERAPY AIDE 04/03/2024 6:07 PM ASSISTANT THERAPY AIDE us Krishna Salcedo MD LAB BLOOD ORDERABLES Final R esult [facility] [address] [place] [address] * (ABNORMAL) Renal function panel (04/03/2024 5:59 PM ASSISTANT THERAPY AIDE) Sodium 126(L) 135 - 145 mmol/L Potassium, pl 4.6 3.3 - 4.9 mmol/L [facility] Chloride 94(L) 97 - 110 mmol/L [facility] CO2 20(L) 22 - 32 mmol/L [facility] Anion gap 12 2 - 15 mmol/L [facility] BUN 17 6 - 25 mg/dL [facility] Creatinine 1.11 0.80 - 1.30 mg/dL [facility] Glucose 93 70 - 199 mg/dL [facility] Comment: Interpretive Data Fasting glucose >/= 126 [...] 2022. Calcium 8.3(L) 8.5 - 10.3 mg/dL [facility] Phosphorus, pl 3.8 2.3 - 4.5 mg/dL [facility] Albumin 3.0(L) 3.5 - 5.0 g/dL [facility] Blood 04/03/2024 5:59 PM ASSISTANT THERAPY AIDE 04/03/2024 6:07 PM ASSISTANT THERAPY AIDE Krishna Salcedo MD LAB BLOOD ORDERABLES Final R esult Performing Organization Address City/[facility]/ZIP Co de Phone Number [facility] [address] [place] [address] * Aerobic culture and gram stain Sputum Lung (04/03/2024 3:55 PM ASSISTANT THERAPY AIDE) Direct Specimen Exam Stain: Many polymorphonuclear leukocytes seen. Many Gram Positive Cocci Many Gram Negative Bacilli Report Final Report: Heavy growth normal krupa [facility] Sputum (Lung) 04/03/2024 3:5 5 PM ASSISTANT THERAPY AIDE 04/03/2024 4:31 PM ASSISTANT THERAPY AIDE Krishna Salcedo MD LAB MICROBIOLOGY - GENERAL O RDERABLES Final Result Performing Organization Address City/[facility] Co de Phone Number [facility] [address] Department [employer] [place], [place] [phone] * MRSA Only (Staphylococcus aureus) PCR Nasal (04/03/2024 3:55 PM ASSISTANT THERAPY AIDE) PCR Scrn, Methicillin resistant Staphylococcus aureus (MRSA) Not Detected Not Detected Comment: Interpretive Data Testing performed using Nucleic Acid Amplification with the New Vision Xpert MRSA NxG Assay. This assay detects target DNA from mecA, mecC and the SCCmec insertion site of Staphylococcus aureus using Real-Time PCR and has been cleared by the FDA. Performance characteristics have been verified by the [facility]. Current Interpretive Data was last revised on 2023 Nasal 04/03/2024 3:55 PM ASSISTANT THERAPY AIDE 04/03/2024 4:31 PM ASSISTANT THERAPY AIDE Krishna Salcedo MD LAB MICROBIOLOGY - GENERAL O RDERABLES Final Result Performing Organization Address [facility] Co de Phone Number [facility] [address] [facility] Laboratories [place], [place] [phone] * Cortisol - Add on lab test (04/03/2024 2:48 PM ASSISTANT THERAPY AIDE) Acceptable Yes Blood 04/03/2024 2:48 PM ASSISTANT THERAPY AIDE 04/03/2024 2:48 PM ASSISTANT THERAPY AIDE Narrative [facility] - 04/03/2024 2:48 PM ASSISTANT THERAPY AIDE Name of Test->Cortisol Tian Long MD LAB BLOOD ORDERABLES Final Result Performing Organization Address [facility] Co de Phone Number [facility] [address] [facility] [employer] [place], [place] [phone] * TSH reflex Free T4 - Add on lab test (04/03/2024 2:48 PM ASSISTANT THERAPY AIDE) Acceptable Yes Blood 04/03/2024 2:48 PM ASSISTANT THERAPY AIDE 04/03/2024 2:48 PM ASSISTANT THERAPY AIDE Narrative [facility] 04/03/2024 2:48 PM ASSISTANT THERAPY AIDE Name of Test->TSH reflex Free T4 Tian Long MD LAB BLOOD ORDERABLES Final Result Performing Organization Address [facility] Co de Phone Number [facility] [address] Department Laboratories [place], [place] [phone] * Sodium, urine, random - Add on lab test (04/03/2024 2:48 PM ASSISTANT THERAPY AIDE) Acceptable Yes Blood 04/03/2024 2:48 PM ASSISTANT THERAPY AIDE 04/03/2024 2:48 PM ASSISTANT THERAPY AIDE Narrative [facility] 04/03/2024 2:48 PM ASSISTANT THERAPY AIDE Name of Test->Sodium, urine, random us Tian Long MD LAB BLOOD ORDERABLES Final Result [facility] [address] [place] [address] * Osmolality, urine - Add on lab test (04/03/2024 2:48 PM ASSISTANT THERAPY AIDE) Acceptable Yes Blood 04/03/2024 2:48 PM ASSISTANT THERAPY AIDE 04/03/2024 2:48 PM ASSISTANT THERAPY AIDE Narrative [facility] - 04/03/2024 2:48 PM ASSISTANT THERAPY AIDE Name of Test->Osmolality, urine us Tian Long MD LAB BLOOD ORDERABLES Final Result Performing Organization Address [facility] Co de Phone Number [facility] [address] [place] [address] * TRANSTHORACIC ECHO (TTE) COMPLETE W DOPPLER/CF WO CONTRAST (04/03/2024 2:46 PM ASSISTANT THERAPY AIDE) Pathologist [facility] LV EF 50-55 % CONS SCIMAGE Anatomical Region Laterality Modality Ultrasound 04/03/2024 12:2 5 PM ASSISTANT THERAPY AIDE Narrative 04/03/2024 7:33 PM ASSISTANT THERAPY AIDE [place] [address] [place] [address] ECHOCARDIOGRAM Patient Name: GIAN LEE E : 1940 (83y 8m) Gender: M Study Date: 04/03/2024 12:25:32 PM Ht(Inch): 68 Wt(Lb): 166.01 BSA: 1.9 Platform Power Technician: CHANDU Location: [id number] Order Provider: KRISHNA SALCEDO BMI: 25.24 BP: [...] By: Gian Trevino MD 04/03/2024 7:32:32 PM ASSISTANT THERAPY AIDE Procedure Note Gian Trevino MD - 04/03/[address] [address] ECHOCARDIOGRAM Patient Name: ROSAGIAN E : 1940 (83y 8m) Gender: M Study Date: 04/03/2024 12:25:32 PM Ht(Inch): 68 Wt(Lb): 166.01 BSA: 1.9 Platform Power Technician: CHANDU Location: [id number] Order Provider: KRISHNA SALCEDO BMI: 25.24 BP: [...] By: Gian Trevino MD 04/03/2024 7:32:32 PM ASSISTANT THERAPY AIDE Krishna Salcedo MD CV ECHO PROCEDURES Final Res ult * (ABNORMAL) Lactate (04/03/2024 11:06 AM ASSISTANT THERAPY AIDE) Lactate 0.6(L) 0.7 - 2.0 mmol/L Blood 04/03/2024 11:0 6 AM ASSISTANT THERAPY AIDE 04/03/2024 11:15 AM ASSISTANT THERAPY AIDE Krishna Salcedo MD LAB BLOOD ORDERABLES Final R esult [facility] [address] [place] [address] * eGFR (04/03/2024 11:06 AM ASSISTANT THERAPY AIDE) eGFR 75 >=60 mL/min/1. 73 m2 Comment: [...] reviewed 2021. Blood 04/03/2024 11:0 6 AM ASSISTANT THERAPY AIDE 04/03/2024 11:23 AM ASSISTANT THERAPY AIDE us Krishna Salcedo MD LAB BLOOD ORDERABLES Final R esult [facility] [address] Department [place] [address] * (ABNORMAL) Pro B-type natriuretic peptide (04/03/2024 11:06 AM ASSISTANT THERAPY AIDE) NT-proBNP 1,928(H) <=450 pg/mL Comment: Interpretive Comments: [...] Date: 2017. Blood 04/03/2024 11:0 6 AM ASSISTANT THERAPY AIDE 04/03/2024 11:23 AM ASSISTANT THERAPY AIDE Krishna Salcedo MD LAB BLOOD ORDERABLES Final R esult Performing Organization Address City/[facility] Co de Phone Number [facility] [address] [employer] [place], [place] [phone] * (ABNORMAL) Thyroid Function Edwards (04/03/2024 11:06 AM ASSISTANT THERAPY AIDE) TSH 10.50(H) 0.30 - 4.20 mcIUnit/mL Blood 04/03/2024 11:0 6 AM ASSISTANT THERAPY AIDE 04/03/2024 11:23 AM ASSISTANT THERAPY AIDE Krishna Salcedo MD LAB BLOOD ORDERABLES Final R esult Performing Organization Address [facility] Co de Phone Number [facility] [address] [place] [address] * (ABNORMAL) Urinalysis reflex to microscopic and culture Urine (04/03/2024 11:06 AM ASSISTANT THERAPY AIDE) Color, ur Yellow Yellow Clarity, ur Clear Clear [facility] Specific gravity, ur 1.042(H) 1.003 - 1.030 [facility] pH, urine 7.0 [facility] Comment: Interpretive Data U rine pH is affected by diet, medications, systemic acid-base disturbances, and renal tubular function. pH may affect urinary stone formation. For example, urine pH below 6.0 may help reduce the tendency for calcium phosphate stones and pH greater than 6.0 may reduce the tendency for uric acid stone formation. Source: [facility] Current Interpretive Data was last revised on 2017 Protein, ur ql Trace Negative [facility] Glucose, ur ql Negative Negative [facility] Ketones, ur Negative Negative [facility] Bilirubin, ur Negative Negative [facility] Blood, ur 3+(A) Negative [facility] Urobilinogen, ur <2.0 <2.0 mg/dL [facility] Nitrite, ur Negative Negative [facility] Leukocyte esterase, ur Negative Negative [facility] UA reflex comment Reflex to microscopic UA will be performed. [facility] Urine 04/03/2024 11:0 6 AM ASSISTANT THERAPY AIDE 04/03/2024 11:06 AM ASSISTANT THERAPY AIDE Krishna Salcedo MD LAB MICROBIOLOGY - GENERAL O RDERABLES Final Result [facility] [address] [place] [address] * Strep pneumoniae antigen, urine Urine (04/03/2024 11:06 AM ASSISTANT THERAPY AIDE) S. pneumoniae Ag Negative Negative Comment: Interpretive [...] on 2022 Urine 04/03/2024 11:0 6 AM ASSISTANT THERAPY AIDE 04/03/2024 11:32 AM ASSISTANT THERAPY AIDE Krishna Salcedo MD LAB MICROBIOLOGY - GENERAL O RDERABLES Final Result Performing Organization Address [facility] de Phone Number [facility] [address] [facility] [place] [address] * Legionella antigen Urine (04/03/2024 11:06 AM ASSISTANT THERAPY AIDE) Legionella Ag Negative Negative Comment: Interpretive Data This test detects only Legionella pneumophila serogroup 1 antigen. Current interpretive data was last revised on 2019. Urine 04/03/2024 11:0 6 AM ASSISTANT THERAPY AIDE 04/03/2024 11:32 AM ASSISTANT THERAPY AIDE Krishna Salcedo MD LAB MICROBIOLOGY - GENERAL O RDERABLES Final Result Performing Organization Address [facility] de Phone Number [facility] [address] [place] [address] * Sodium, urine, random (04/03/2024 11:06 AM ASSISTANT THERAPY AIDE) Sodium, ur 145 mmol/L Comment: Interpretive Data No reference range established. Current interpretive data was last revised 2018. Urine 04/03/2024 11:0 6 AM ASSISTANT THERAPY AIDE 04/03/2024 3:13 PM ASSISTANT THERAPY AIDE Krishna Salcedo MD LAB URINE ORDERABLES Final R esult Performing Organization Address [facility] de Phone Number [facility] [address] [facility] [employer] [place], [place] [phone] * Osmolality, urine (04/03/2024 11:06 AM ASSISTANT THERAPY AIDE) Osmo, ur 526 300 - 800 mOsm/kg Urine 04/03/2024 11:0 6 AM ASSISTANT THERAPY AIDE 04/03/2024 3:14 PM ASSISTANT THERAPY AIDE Krishna Salcedo MD LAB URINE ORDERABLES Final R esult Performing Organization Address [facility] Co de Phone Number [facility] [address] [facility] [place] [address] * (ABNORMAL) Urinalysis, microscopic only (04/03/2024 11:06 AM ASSISTANT THERAPY AIDE) WBC, ur 0-5 0 - 5 /HPF RBC, ur >50(A) 0 - 2 /HPF [facility] Bacteria, ur Trace(A) [facility] Culture Reflex Comment Reflex conditions for urine culture (WBC >10) not met. [facility] Urine 04/03/2024 11:0 6 AM ASSISTANT THERAPY AIDE 04/03/2024 11:23 AM ASSISTANT THERAPY AIDE Krishna Salcedo MD LAB URINE ORDERABLES Final R esult Performing Organization Address [facility] de Phone Number [facility] [address] [facility] [place] [address] * (ABNORMAL) aPTT (04/03/2024 11:06 AM ASSISTANT THERAPY AIDE) aPTT 39(H) 28 - 38 sec Comment: Interpretive Data Heparin therapeutic range: 66.0 - 100.0 seconds. Range based on correlation with therapeutic heparin activity range of 0.3 - 0.7 Units/mL. Current interpretive data was last revised on 2022. Blood 04/03/2024 11:0 6 AM ASSISTANT THERAPY AIDE 04/03/2024 11:22 AM ASSISTANT THERAPY AIDE Krishna Salcedo MD LAB BLOOD ORDERABLES Final R esult Performing Organization Address [facility] Co de Phone Number [facility] [address] [facility] [place] [address] * (ABNORMAL) Protime-INR (04/03/2024 11:06 AM ASSISTANT THERAPY AIDE) PT 17.7(H) 9.7 - 13.0 sec INR 1.62(H) 0.90 - 1.20 [facility] Comment: Interpretive data Oral anticoagulant therapeutic ranges: Venous thromboembolism prophylaxis or treatment: 2.0-3.0 CARDIOLOGY Standard range: 2.0-3.0 High-intensity range: 2.5-3.5 Refer to indication-specific guidelines for appropriate target ranges for prosthetic heart valve replacement. Current interpretive data was last revised on 2019. Blood 04/03/2024 11:0 6 AM ASSISTANT THERAPY AIDE 04/03/2024 11:22 AM ASSISTANT THERAPY AIDE us Krishna Salcedo MD LAB BLOOD ORDERABLES Final R esult [facility] [address] [place] [address] * (ABNORMAL) CBC without differential (04/03/2024 11:06 AM ASSISTANT THERAPY AIDE) WBC 8.6 3.8 - 9.9 K/cumm Hgb 10.0(L) 13.0 - 17.5 g/dL [facility] Hct 30.8(L) 38.9 - 50.3 % [facility] Plt 249 150 - 400 K/cumm [facility] MPV 9.1 9.1 - 12.3 fL [facility] RBC 3.43(L) 4.30 - 5.80 M/cumm [facility] MCV 89.8 81.3 - 96.4 fL [facility] MCH 29.2 27.1 - 33.3 pg [facility] MCHC 32.5 32.3 - 35.7 g/dL [facility] RDW CV 12.7 11.1 - 14.9 % [facility] RDW SD 41.0 35.7 - 48.1 fL [facility] NRBC abs 0.00 0.00 - 0.01 K/cumm [facility] Blood 04/03/2024 11:0 6 AM ASSISTANT THERAPY AIDE 04/03/2024 11:23 AM ASSISTANT THERAPY AIDE Narrative [facility] - 04/03/2024 11:32 AM ASSISTANT THERAPY AIDE Baseline prior to rivaroxaban initiation Krishna Salcedo MD LAB BLOOD ORDERABLES Final R esult Performing Organization Address [facility] Co de Phone Number [facility] [address] [facility] [employer] [place], [place] [phone] * Type and screen (04/03/2024 11:06 AM ASSISTANT THERAPY AIDE) ABO Rh O Positive Alex, indirect Negative [facility] Blood 04/03/2024 11:0 6 AM ASSISTANT THERAPY AIDE 04/03/2024 11:25 AM ASSISTANT THERAPY AIDE Narrative [facility] - 04/03/2024 12:03 PM ASSISTANT THERAPY AIDE Has the patient had Daratumumab or Isatuximab in the past 6 months?->Unknown Krishna Salcedo MD LAB BLOOD BANK TEST ORDERABL ES Final Result Performing Organization Address [facility] Co de Phone Number [facility] [address] [facility] [place] [address] * Uric acid (04/03/2024 11:06 AM ASSISTANT THERAPY AIDE) Uric acid 3.4 3.0 - 8.0 mg/dL Blood 04/03/2024 11:0 6 AM ASSISTANT THERAPY AIDE 04/03/2024 11:23 AM ASSISTANT THERAPY AIDE Krishna Salcedo MD LAB BLOOD ORDERABLES Final R esult Performing Organization Address [facility] Co de Phone Number [facility] [address] [facility] [place] [address] * T4, free (04/03/2024 11:06 AM ASSISTANT THERAPY AIDE) Free T4 0.95 0.90 - 1.70 ng/dL Blood 04/03/2024 11:0 6 AM ASSISTANT THERAPY AIDE 04/03/2024 11:23 AM ASSISTANT THERAPY AIDE Narrative [facility] - 04/03/2024 2:33 PM ASSISTANT THERAPY AIDE This test was reflexed from a TSH result. Krishna Salcedo MD LAB BLOOD ORDERABLES Final R esult Performing Organization Address [facility] Co de Phone Number [facility] [address] [facility] [place] [address] * Phosphorus (04/03/2024 11:06 AM ASSISTANT THERAPY AIDE) Phosphorus, pl 3.5 2.3 - 4.5 mg/dL Blood 04/03/2024 11:0 6 AM ASSISTANT THERAPY AIDE 04/03/2024 11:23 AM ASSISTANT THERAPY AIDE Krishna Salcedo MD LAB BLOOD ORDERABLES Final R esult Performing Organization Address [facility] Co de Phone Number [facility] [address] [facility] [place] [address] * Magnesium (04/03/2024 11:06 AM ASSISTANT THERAPY AIDE) Magnesium 2.0 1.4 - 2.5 mg/dL Blood 04/03/2024 11:0 6 AM ASSISTANT THERAPY AIDE 04/03/2024 11:23 AM ASSISTANT THERAPY AIDE Krishna Salcedo MD LAB BLOOD ORDERABLES Final R esult Performing Organization Address [facility] Co de Phone Number [facility] [address] [place] [address] * Cortisol (04/03/2024 11:06 AM ASSISTANT THERAPY AIDE) Cortisol 8.3 4.8 - 19.5 mcg/dl Blood 04/03/2024 11:0 6 AM ASSISTANT THERAPY AIDE 04/03/2024 11:23 AM ASSISTANT THERAPY AIDE Krishna Salcedo MD LAB BLOOD ORDERABLES Final R esult Performing Organization Address [facility] Co de Phone Number [facility] [address] [place] [address] * Bilirubin, direct (04/03/2024 11:06 AM ASSISTANT THERAPY AIDE) Pathologist [facility] Bilirubin, direct 0.2 0.1 - 0.3 mg/dL Blood 04/03/2024 11:0 6 AM ASSISTANT THERAPY AIDE 04/03/2024 11:23 AM ASSISTANT THERAPY AIDE us Krishna Salcedo MD LAB BLOOD ORDERABLES Final R esult [facility] [address] [place] [address] * (ABNORMAL) Comprehensive metabolic panel (04/03/2024 11:06 AM ASSISTANT THERAPY AIDE) [facility] Sodium 122(L) 135 - 145 mmol/L Potassium, pl 4.4 3.3 - 4.9 mmol/L [facility] Chloride 89(L) 97 - 110 mmol/L [facility] CO2 21(L) 22 - 32 mmol/L [facility] Anion gap 12 2 - 15 mmol/L [facility] BUN 17 6 - 25 mg/dL [facility] Creatinine 0.99 0.80 - 1.30 mg/dL [facility] Glucose 79 70 - 199 mg/dL [facility] Comment: Interpretive Data Fasting glucose >/= 126 [...] 2022. Calcium 8.1(L) 8.5 - 10.3 mg/dL [facility] Bilirubin, total 0.5 0.1 - 1.2 mg/dL [facility] Protein, pl 5.6(L) 6.5 - 8.5 g/dL [facility] Albumin 3.0(L) 3.5 - 5.0 g/dL [facility] Alk phos 67 40 - 130 Units/L [facility] ALT 19 7 - 55 Units/L [facility] AST 31 10 - 50 Units/L [facility] Blood 04/03/2024 11:0 6 AM ASSISTANT THERAPY AIDE 04/03/2024 11:23 AM ASSISTANT THERAPY AIDE us Krishna Salcedo MD LAB BLOOD ORDERABLES Final R esult [facility] [address] Department [place] [address] * X-ray chest 1 view (Portable) (04/03/2024 10:23 AM ASSISTANT THERAPY AIDE) Anatomical Region Laterality Modality Body, Chest N/A Computed Radiogr aphy 04/03/2024 10:3 4 AM ASSISTANT THERAPY AIDE Impressions 04/03/2024 10:34 AM ASSISTANT THERAPY AIDE Persistent left pleural effusion and basilar atelectasis with improving aeration of the right lung. Electronically signed by: Isiah David M.D. Narrative 04/03/2024 10:34 AM ASSISTANT THERAPY AIDE EXAMINATION: XR CHEST 1 VIEW HISTORY: Pneumonia [...] Portable - in AM (03/27/2024 6:38 AM ASSISTANT THERAPY AIDE) Anatomical Region Laterality Modality Body, Chest N/A Computed Radiogr aphy 03/27/2024 7:33 AM ASSISTANT THERAPY AIDE Impressions 03/27/2024 7:33 AM ASSISTANT THERAPY AIDE Bibasilar atelectasis with persistent left pleural effusion. Electronically signed by: Basil Youssef M.D. Narrative 03/27/2024 7:33 AM ASSISTANT THERAPY AIDE EXAMINATION: XR CHEST 1 VIEW HISTORY: Pleural [...] Final Result * eGFR (03/27/2024 12:27 AM ASSISTANT THERAPY AIDE) eGFR 74 >=60 mL/min/1. 73 m2 Comment: [...] reviewed 2021. Blood 03/27/2024 12:2 7 AM ASSISTANT THERAPY AIDE 03/27/2024 1:07 AM ASSISTANT THERAPY AIDE Ale Mcknight NP LAB BLOOD ORDERABLES Fin al Result [facility] [address] [address] [place] [address] * (ABNORMAL) CBC without differential (03/27/2024 12:27 AM ASSISTANT THERAPY AIDE) WBC 8.8 3.8 - 9.9 K/cumm Hgb 9.5(L) 13.0 - 17.5 g/dL [facility] Hct 29.3(L) 38.9 - 50.3 % [facility] Plt 138(L) 150 - 400 K/cumm [facility] MPV 9.7 9.1 - 12.3 fL [facility] RBC 3.18(L) 4.30 - 5.80 M/cumm [facility] MCV 92.1 81.3 - 96.4 fL [facility] MCH 29.9 27.1 - 33.3 pg [facility] MCHC 32.4 32.3 - 35.7 g/dL [facility] RDW CV 12.9 11.1 - 14.9 % [facility] RDW SD 43.4 35.7 - 48.1 fL [facility] NRBC abs 0.00 0.00 - 0.01 K/cumm [facility] Blood 03/27/2024 12:2 7 AM ASSISTANT THERAPY AIDE 03/27/2024 1:07 AM ASSISTANT THERAPY AIDE Ale Mcknight WHEEL MILL OPERATOR LAB BLOOD ORDERABLES Fin al Result Performing Organization Address [facility] Co de Phone Number [facility] [address] [facility] [place] [address] * Magnesium (03/27/2024 12:27 AM ASSISTANT THERAPY AIDE) [facility] Magnesium 2.1 1.4 - 2.5 mg/dL Blood 03/27/2024 12:2 7 AM ASSISTANT THERAPY AIDE 03/27/2024 1:07 AM ASSISTANT THERAPY AIDE Ale Mcknight WHEEL MILL OPERATOR LAB BLOOD ORDERABLES Fin al Result Performing Organization Address [facility] de Phone Number [facility] [address] [facility] [place] [address] * (ABNORMAL) Renal function panel (03/27/2024 12:27 AM ASSISTANT THERAPY AIDE) [facility] Sodium 134(L) 135 - 145 mmol/L Potassium, pl 4.3 3.3 - 4.9 mmol/L [facility] Chloride 101 97 - 110 mmol/L [facility] CO2 24 22 - 32 mmol/L [facility] Anion gap 9 2 - 15 mmol/L [facility] BUN 16 6 - 25 mg/dL [facility] Creatinine 1.00 0.80 - 1.30 mg/dL [facility] Glucose 112 70 - 199 mg/dL [facility] Comment: Interpretive Data Fasting glucose >/= 126 [...] 2022. Calcium 8.4(L) 8.5 - 10.3 mg/dL [facility] Phosphorus, pl 4.0 2.3 - 4.5 mg/dL [facility] Albumin 3.1(L) 3.5 - 5.0 g/dL [facility] Blood 03/27/2024 12:2 7 AM ASSISTANT THERAPY AIDE 03/27/2024 1:07 AM ASSISTANT THERAPY AIDE us Ale Mcknight NP LAB BLOOD ORDERABLES Fin al Result [facility] [address] Department [place] [address] * (ABNORMAL) Urinalysis reflex to microscopic and culture Urine (03/26/2024 11:53 AM ASSISTANT THERAPY AIDE) Color, ur Yellow Yellow Clarity, ur Clear Clear [facility] Specific gravity, ur 1.031(H) 1.003 - 1.030 [facility] pH, urine 6.0 [facility] Comment: Interpretive Data U rine pH is affected by diet, medications, systemic acid-base disturbances, and renal tubular function. pH may affect urinary stone formation. For example, urine pH below 6.0 may help reduce the tendency for calcium phosphate stones and pH greater than 6.0 may reduce the tendency for uric acid stone formation. Source: [facility] Current Interpretive Data was last revised on 2017 Protein, ur ql 1+(A) Negative [facility] Glucose, ur ql Negative Negative [facility] Ketones, ur Negative Negative [facility] Bilirubin, ur Negative Negative [facility] Blood, ur Negative Negative [facility] Urobilinogen, ur 2.0(A) <2.0 mg/dL [facility] Nitrite, ur Negative Negative [facility] Leukocyte esterase, ur 2+(A) Negative [facility] UA reflex comment Reflex to microscopic UA will be performed. [facility] Urine 03/26/2024 11:5 3 AM ASSISTANT THERAPY AIDE 03/26/2024 11:53 AM ASSISTANT THERAPY AIDE Benny SOLIS LAB MICROBIOLOGY - GENERAL O RDERABLES Final Result Performing Organization Address [facility] Co de Phone Number [facility] [address] Department [place] [address] * (ABNORMAL) Urinalysis, microscopic only (03/26/2024 11:53 AM ASSISTANT THERAPY AIDE) WBC, ur 6-10(A) 0 - 5 /HPF RBC, ur 3-5(A) 0 - 2 /HPF [facility] Epithelial cells, squamous, ur 1-5 0 - 5 /HPF [facility] Mucous, ur Present(A) [facility] Culture Reflex Comment Reflex conditions for urine culture (WBC >10) not met. [facility] Urine 03/26/2024 11:5 3 AM ASSISTANT THERAPY AIDE 03/26/2024 12:04 PM ASSISTANT THERAPY AIDE us Benny SOLIS LAB URINE ORDERABLES Final R esult Performing Organization Address [facility] Co de Phone Number [facility] [address] [place] [address] * XR Chest 1 View - Portable - in AM (03/26/2024 6:06 AM ASSISTANT THERAPY AIDE) Anatomical Region Laterality Modality Body, Chest N/A Computed Radiogr aphy 03/26/2024 7:40 AM ASSISTANT THERAPY AIDE Impressions 03/26/2024 7:40 AM ASSISTANT THERAPY AIDE Comparison 03/25/2024 5:47 AM. Median sternotomy wires are intact. Right internal jugular central venous catheter tip at superior cavoatrial junction. Cardiomediastinal silhouette stable. Aortic valve replacement again noted. Moderate left and mild right bibasilar atelectasis and small left pleural effusion again noted. No pulmonary edema seen. No pneumothorax seen. Electronically signed by: Dion Pinto M.D. Narrative 03/26/2024 7:40 AM ASSISTANT THERAPY AIDE EXAMINATION: Chest 1 view Procedure Note Dion [...] Final Result * eGFR (03/26/2024 12:27 AM ASSISTANT THERAPY AIDE) eGFR 65 >=60 mL/min/1. 73 m2 Comment: [...] reviewed 2021. Blood 03/26/2024 12:2 7 AM ASSISTANT THERAPY AIDE 03/26/2024 12:50 AM ASSISTANT THERAPY AIDE us Ale Mcknight NP LAB BLOOD ORDERABLES Fin al Result [facility] [address] [place] [address] * (ABNORMAL) CBC without differential (03/26/2024 12:27 AM ASSISTANT THERAPY AIDE) [facility] WBC 10.0(H) 3.8 - 9.9 K/cumm Hgb 9.8(L) 13.0 - 17.5 g/dL [facility] Hct 29.2(L) 38.9 - 50.3 % [facility] Plt 162 150 - 400 K/cumm [facility] MPV 9.1 9.1 - 12.3 fL [facility] RBC 3.22(L) 4.30 - 5.80 M/cumm [facility] MCV 90.7 81.3 - 96.4 fL [facility] MCH 30.4 27.1 - 33.3 pg [facility] MCHC 33.6 32.3 - 35.7 g/dL [facility] RDW CV 12.9 11.1 - 14.9 % [facility] RDW SD 42.5 35.7 - 48.1 fL [facility] NRBC abs 0.00 0.00 - 0.01 K/cumm [facility] Blood 03/26/2024 12:2 7 AM ASSISTANT THERAPY AIDE 03/26/2024 12:50 AM ASSISTANT THERAPY AIDE Ale Mcknight WHEEL MILL OPERATOR LAB BLOOD ORDERABLES Fin al Result Performing Organization Address [facility] Co de Phone Number [facility] [address] [facility] [place] [address] * Magnesium (03/26/2024 12:27 AM ASSISTANT THERAPY AIDE) [facility] Magnesium 2.0 1.4 - 2.5 mg/dL Blood 03/26/2024 12:2 7 AM ASSISTANT THERAPY AIDE 03/26/2024 12:50 AM ASSISTANT THERAPY AIDE Ale Mcknight WHEEL MILL OPERATOR LAB BLOOD ORDERABLES Fin al Result Performing Organization Address [facility] Co de Phone Number [facility] [address] [place] [address] * (ABNORMAL) Renal function panel (03/26/2024 12:27 AM ASSISTANT THERAPY AIDE) Sodium 135 135 - 145 mmol/L Potassium, pl 4.2 3.3 - 4.9 mmol/L [facility] Chloride 100 97 - 110 mmol/L [facility] CO2 23 22 - 32 mmol/L [facility] Anion gap 12 2 - 15 mmol/L [facility] BUN 16 6 - 25 mg/dL [facility] Creatinine 1.12 0.80 - 1.30 mg/dL [facility] Glucose 100 70 - 199 mg/dL [facility] Comment: Interpretive Data Fasting glucose >/= 126 [...] 2022. Calcium 8.3(L) 8.5 - 10.3 mg/dL [facility] Phosphorus, pl 3.8 2.3 - 4.5 mg/dL [facility] Albumin 3.3(L) 3.5 - 5.0 g/dL [facility] Blood 03/26/2024 12:2 7 AM ASSISTANT THERAPY AIDE 03/26/2024 12:50 AM ASSISTANT THERAPY AIDE us Ale Mcknight NP LAB BLOOD ORDERABLES Fin al Result [facility] [address] Department [place] [address] * XR Chest 1 View - Portable - in AM (03/25/2024 5:49 AM ASSISTANT THERAPY AIDE) Anatomical Region Laterality Modality Body, Chest N/A Computed Radiogr aphy 03/25/2024 8:22 AM ASSISTANT THERAPY AIDE Impressions 03/25/2024 8:22 AM ASSISTANT THERAPY AIDE Comparison is made to chest radiograph dated [...] Farzana Guzman M.D. Narrative 03/25/2024 8:22 AM ASSISTANT THERAPY AIDE EXAMINATION: 1 view chest radiograph Procedure Note [...] signed by: Farzana Guzman M.D. Ale Mcknight WHEEL MILL OPERATOR IMG XR PROCEDURES Final Result * eGFR (03/25/2024 1:33 AM ASSISTANT THERAPY AIDE) eGFR 76 >=60 mL/min/1. 73 m2 Comment: [...] last reviewed 2021. Blood 03/25/2024 1:33 AM ASSISTANT THERAPY AIDE 03/25/2024 1:55 AM ASSISTANT THERAPY AIDE Ale Mcknight WHEEL MILL OPERATOR LAB BLOOD ORDERABLES Fin al Result Performing Organization Address [facility]/ZIP Co de Phone Number [facility] [address] [place] [address] * (ABNORMAL) CBC without differential (03/25/2024 1:33 AM ASSISTANT THERAPY AIDE) [facility] WBC 9.0 3.8 - 9.9 K/cumm Hgb 9.3(L) 13.0 - 17.5 g/dL [facility] Hct 28.0(L) 38.9 - 50.3 % [facility] Plt 131(L) 150 - 400 K/cumm [facility] MPV 9.8 9.1 - 12.3 fL [facility] RBC 3.08(L) 4.30 - 5.80 M/cumm [facility] MCV 90.9 81.3 - 96.4 fL [facility] MCH 30.2 27.1 - 33.3 pg [facility] MCHC 33.2 32.3 - 35.7 g/dL [facility] RDW CV 12.9 11.1 - 14.9 % [facility] RDW SD 42.4 35.7 - 48.1 fL [facility] NRBC abs 0.00 0.00 - 0.01 K/cumm [facility] Blood 03/25/2024 1:33 AM ASSISTANT THERAPY AIDE 03/25/2024 1:55 AM ASSISTANT THERAPY AIDE Ale Mcknight WHEEL MILL OPERATOR LAB BLOOD ORDERABLES Fin al Result Performing Organization Address [facility]/ZIP Co de Phone Number [facility] [address] [place] [address] * Type and screen (03/25/2024 1:33 AM ASSISTANT THERAPY AIDE) [facility] ABO Rh O Positive Alex, indirect Negative [facility] Blood 03/25/2024 1:33 AM ASSISTANT THERAPY AIDE 03/25/2024 2:03 AM ASSISTANT THERAPY AIDE Narrative [facility] - 03/25/2024 2:34 AM ASSISTANT THERAPY AIDE Has the patient had Daratumumab or Isatuximab in the past 6 months?->Unknown Ale Mcknight WHEEL MILL OPERATOR LAB BLOOD BANK TEST ORDE RABLES Final Result [facility] [address] [place] [address] * Magnesium (03/25/2024 1:33 AM ASSISTANT THERAPY AIDE) [facility] Magnesium 2.0 1.4 - 2.5 mg/dL Blood 03/25/2024 1:33 AM ASSISTANT THERAPY AIDE 03/25/2024 1:55 AM ASSISTANT THERAPY AIDE Ale Mcknight WHEEL MILL OPERATOR LAB BLOOD ORDERABLES Fin al Result [facility] [address] [place] [address] * (ABNORMAL) Renal function panel (03/25/2024 1:33 AM ASSISTANT THERAPY AIDE) [facility] Sodium 132(L) 135 - 145 mmol/L Potassium, pl 4.6 3.3 - 4.9 mmol/L [facility] Chloride 99 97 - 110 mmol/L [facility] CO2 22 22 - 32 mmol/L [facility] Anion gap 11 2 - 15 mmol/L [facility] BUN 16 6 - 25 mg/dL [facility] Creatinine 0.98 0.80 - 1.30 mg/dL [facility] Glucose 104 70 - 199 mg/dL [facility] Comment: Interpretive Data Fasting glucose >/= 126 [...] 2022. Calcium 8.0(L) 8.5 - 10.3 mg/dL [facility] Phosphorus, pl 2.8 2.3 - 4.5 mg/dL [facility] Albumin 2.8(L) 3.5 - 5.0 g/dL [facility] Blood 03/25/2024 1:33 AM ASSISTANT THERAPY AIDE 03/25/2024 1:55 AM ASSISTANT THERAPY AIDE Ale Mcknight NP LAB BLOOD ORDERABLES Fin al Result [facility] [address] [place] [address] * XR Chest 1 View - Portable - in AM (03/24/2024 8:05 AM ASSISTANT THERAPY AIDE) Anatomical Region Laterality Modality Body, Chest N/A Computed Radiogr aphy 03/24/2024 8:15 AM ASSISTANT THERAPY AIDE Impressions 03/24/2024 8:15 AM ASSISTANT THERAPY AIDE Single view chest exam is compared to [...] Williams Murillo M.D. Narrative 03/24/2024 8:15 AM ASSISTANT THERAPY AIDE EXAMINATION: XR CHEST 1 VIEW History: Pleural [...] Final Result * eGFR (03/24/2024 2:16 AM ASSISTANT THERAPY AIDE) eGFR 73 >=60 mL/min/1. 73 m2 Comment: [...] last reviewed 2021. Blood 03/24/2024 2:16 AM ASSISTANT THERAPY AIDE 03/24/2024 2:21 AM ASSISTANT THERAPY AIDE us Ale Mcknight NP LAB BLOOD ORDERABLES Fin al Result [facility] [address] Department of Laboratories [place] [id number] * (ABNORMAL) CBC without differential (03/24/2024 2:16 AM ASSISTANT THERAPY AIDE) [facility] WBC 7.5 3.8 - 9.9 K/cumm Hgb 9.6(L) 13.0 - 17.5 g/dL [facility] Hct 28.7(L) 38.9 - 50.3 % [facility] Plt 143(L) 150 - 400 K/cumm [facility] MPV 9.5 9.1 - 12.3 fL [facility] RBC 3.19(L) 4.30 - 5.80 M/cumm [facility] MCV 90.0 81.3 - 96.4 fL [facility] MCH 30.1 27.1 - 33.3 pg [facility] MCHC 33.4 32.3 - 35.7 g/dL [facility] RDW CV 12.7 11.1 - 14.9 % [facility] RDW SD 41.8 35.7 - 48.1 fL [facility] NRBC abs 0.00 0.00 - 0.01 K/cumm [facility] Blood 03/24/2024 2:16 AM ASSISTANT THERAPY AIDE 03/24/2024 2:21 AM ASSISTANT THERAPY AIDE Ale Mcknight WHEEL MILL OPERATOR LAB BLOOD ORDERABLES Fin al Result Performing Organization Address [facility] Co de Phone Number [facility] [address] [facility] [place] [address] * Magnesium (03/24/2024 2:16 AM ASSISTANT THERAPY AIDE) [facility] Magnesium 2.2 1.4 - 2.5 mg/dL Blood 03/24/2024 2:16 AM ASSISTANT THERAPY AIDE 03/24/2024 2:21 AM ASSISTANT THERAPY AIDE Ale Mcknight WHEEL MILL OPERATOR LAB BLOOD ORDERABLES Fin al Result Performing Organization Address [facility] Co de Phone Number [facility] [address] Department [place] [address] * (ABNORMAL) Renal function panel (03/24/2024 2:16 AM ASSISTANT THERAPY AIDE) Sodium 134(L) 135 - 145 mmol/L Potassium, pl 4.2 3.3 - 4.9 mmol/L [facility] Chloride 103 97 - 110 mmol/L [facility] CO2 22 22 - 32 mmol/L [facility] Anion gap 9 2 - 15 mmol/L [facility] BUN 16 6 - 25 mg/dL [facility] Creatinine 1.01 0.80 - 1.30 mg/dL [facility] Glucose 103 70 - 199 mg/dL [facility] Comment: Interpretive Data Fasting glucose >/= 126 [...] 2022. Calcium 8.3(L) 8.5 - 10.3 mg/dL [facility] Phosphorus, pl 2.2(L) 2.3 - 4.5 mg/dL [facility] Albumin 2.9(L) 3.5 - 5.0 g/dL [facility] Blood 03/24/2024 2:16 AM ASSISTANT THERAPY AIDE 03/24/2024 2:21 AM ASSISTANT THERAPY AIDE us Ale Mcknight NP LAB BLOOD ORDERABLES Fin al Result [facility] [address] [place] [address] * XR Chest 1 View - Portable - in AM (03/23/2024 6:41 AM ASSISTANT THERAPY AIDE) Anatomical Region Laterality Modality Body, Chest N/A Computed Radiogr aphy 03/23/2024 8:08 AM ASSISTANT THERAPY AIDE Impressions 03/23/2024 8:08 AM ASSISTANT THERAPY AIDE 1. Obscuration of the left hemidiaphragm likely related to a pleural effusion. 2. Otherwise grossly negative postoperative chest radiograph. COMMENT: Please see above for additional findings. Electronically signed by: Mo Stahl M.D. Narrative 03/23/2024 8:08 AM ASSISTANT THERAPY AIDE Chest Radiograph, 1 view HISTORY: pleural effusion, [...] Mo E. Scales, M.D. us Ale Mcknight WHEEL MILL OPERATOR IMG XR PROCEDURES Final Result * Critical Care (03/23/2024 6:36 AM ASSISTANT THERAPY AIDE) Narrative Mauri dOell MD - 03/23/2024 6:36 AM ASSISTANT THERAPY AIDE Ale Mcknight NP 03/23/2024 8:54 AM Critical Care Performed by: Ale Mcknight NP Authorized by: Ale Mcknight NP CRITICAL CARE: Team: [facility] CT Shift: AM Level of Billing: Subsequent [...] plan with the patient's team and other medical/information resource consultant staff. This time was in addition to and separate from care provided by other practitioners on this day of service. I spent time reviewing and interpreting data from bedside monitors, laboratory results, and imaging and I spent time discussing the management of this critically ill patient with consultants and the medical staff us Ale Mcknight WHEEL MILL OPERATOR IN CLINIC/BEDSIDE ORDERA BLES Final Result * eGFR (03/23/2024 1:16 AM ASSISTANT THERAPY AIDE) eGFR 77 >=60 mL/min/1. 73 m2 Comment: [...] last reviewed 2021. Blood 03/23/2024 1:16 AM ASSISTANT THERAPY AIDE 03/23/2024 1:35 AM ASSISTANT THERAPY AIDE Brenda Mayberry WHEEL MILL OPERATOR LAB BLOOD ORDERABLES Final Result Performing Organization Address [facility] Co de Phone Number [facility] [address] [facility] [place] [address] * (ABNORMAL) Calcium, ionized (03/23/2024 1:16 AM ASSISTANT THERAPY AIDE) Calcium, Ionized 4.40(L) 4.50 - 5.10 mg/dL Blood 03/23/2024 1:16 AM ASSISTANT THERAPY AIDE 03/23/2024 1:23 AM ASSISTANT THERAPY AIDE Result [facility] Gena Jane WHEEL MILL OPERATOR LAB BLOOD ORDERABLES Hamida l Result Performing Organization Address [facility] de Phone Number [facility] [address] [facility] [place] [address] * Protime-INR (03/23/2024 1:16 AM ASSISTANT THERAPY AIDE) PT 11.7 9.7 - 13.0 sec INR 1.08 0.90 - 1.20 [facility] Comment: Interpretive data Oral anticoagulant therapeutic ranges: Venous thromboembolism prophylaxis or treatment: 2.0-3.0 CARDIOLOGY Standard range: 2.0-3.0 High-intensity range: 2.5-3.5 Refer to indication-specific guidelines for appropriate target ranges for prosthetic heart valve replacement. Current interpretive data was last revised on 2019. Blood 03/23/2024 1:16 AM ASSISTANT THERAPY AIDE 03/23/2024 1:35 AM ASSISTANT THERAPY AIDE Result [facility] Gena Jane WHEEL MILL OPERATOR LAB BLOOD ORDERABLES Hamida l Result Performing Organization Address [facility] Co de Phone Number [facility] [address] [facility] [place] [address] * (ABNORMAL) CBC without differential (03/23/2024 1:16 AM ASSISTANT THERAPY AIDE) [facility] WBC 8.3 3.8 - 9.9 K/cumm Hgb 10.2(L) 13.0 - 17.5 g/dL [facility] Hct 31.4(L) 38.9 - 50.3 % [facility] Plt 130(L) 150 - 400 K/cumm [facility] MPV 9.6 9.1 - 12.3 fL [facility] RBC 3.42(L) 4.30 - 5.80 M/cumm [facility] MCV 91.8 81.3 - 96.4 fL [facility] MCH 29.8 27.1 - 33.3 pg [facility] MCHC 32.5 32.3 - 35.7 g/dL [facility] RDW CV 12.9 11.1 - 14.9 % [facility] RDW SD 43.1 35.7 - 48.1 fL [facility] NRBC abs 0.00 0.00 - 0.01 K/cumm [facility] Blood 03/23/2024 1:16 AM ASSISTANT THERAPY AIDE 03/23/2024 1:36 AM ASSISTANT THERAPY AIDE Ale Mcknight WHEEL MILL OPERATOR LAB BLOOD ORDERABLES Fin al Result Performing Organization Address [facility] Co de Phone Number [facility] [address] [facility] [place] [address] * Magnesium (03/23/2024 1:16 AM ASSISTANT THERAPY AIDE) [facility] Magnesium 2.2 1.4 - 2.5 mg/dL Comment:Reviewed Blood 03/23/2024 1:16 AM ASSISTANT THERAPY AIDE 03/23/2024 1:35 AM ASSISTANT THERAPY AIDE Ale Mcknight WHEEL MILL OPERATOR LAB BLOOD ORDERABLES Fin al Result Performing Organization Address [facility]/ZIP Co de Phone Number [facility] [address] [place] [address] * (ABNORMAL) Renal function panel (03/23/2024 1:16 AM ASSISTANT THERAPY AIDE) Sodium 134(L) 135 - 145 mmol/L Potassium, pl 4.5 3.3 - 4.9 mmol/L [facility] Chloride 100 97 - 110 mmol/L [facility] CO2 21(L) 22 - 32 mmol/L [facility] Anion gap 13 2 - 15 mmol/L [facility] BUN 13 6 - 25 mg/dL [facility] Creatinine 0.97 0.80 - 1.30 mg/dL [facility] Glucose 79 70 - 199 mg/dL [facility] Comment: Interpretive Data Fasting glucose >/= 126 [...] 2022. Calcium 8.2(L) 8.5 - 10.3 mg/dL [facility] Phosphorus, pl 3.3 2.3 - 4.5 mg/dL [facility] Albumin 2.9(L) 3.5 - 5.0 g/dL [facility] Blood 03/23/2024 1:16 AM ASSISTANT THERAPY AIDE 03/23/2024 1:35 AM ASSISTANT THERAPY AIDE us Ale Mcknight NP LAB BLOOD ORDERABLES Fin al Result [facility] [address] [place] [address] * Critical Care (03/22/2024 8:16 PM ASSISTANT THERAPY AIDE) Narrative Mauri Odell MD - 03/22/2024 8:16 PM ASSISTANT THERAPY AIDE Gena Jane NP 03/23/2024 4:04 AM Critical Care Performed by: Gena Jane NP Authorized by: Gena Jane NP CRITICAL CARE: Team: [facility] CT Shift: PM Level of Billing: Subsequent [...] plan with the patient's team and other medical/information resource consultant staff. This time was in addition [...] laboratory results, and imaging us Gena Jane WHEEL MILL OPERATOR IN CLINIC/BEDSIDE ORDERAB LES Final Result * POCT glucose (03/22/2024 6:38 PM ASSISTANT THERAPY AIDE) Glucose, POC 96 70 - 199 mg/dL Comment: For Glucose values <35 mg/dl when Hematocrit is >60 mg/dl,the test may not accurately detect significant hypoglycemia,and testing in the Laboratory should be considered if clinically indicated. Blood 03/22/2024 6:38 PM ASSISTANT THERAPY AIDE 03/22/2024 6:38 PM ASSISTANT THERAPY AIDE us Basil Adhikari MD LAB POCT ORDERABLES - DE VICE Final Result [facility] [address] [place] [address] * eGFR (03/22/2024 6:30 PM ASSISTANT THERAPY AIDE) eGFR 76 >=60 mL/min/1. 73 m2 Comment: [...] last reviewed 2021. Blood 03/22/2024 6:30 PM ASSISTANT THERAPY AIDE 03/22/2024 6:42 PM ASSISTANT THERAPY AIDE Sara Shanna Edwards WHEEL MILL OPERATOR LAB BLOOD ORDERABLES Final Result Performing Organization Address [facility]/ZIP Co de Phone Number [facility] [address] Department of [employer] [place], [place] [id number] * (ABNORMAL) Calcium, ionized (03/22/2024 6:30 PM ASSISTANT THERAPY AIDE) Calcium, Ionized 4.40(L) 4.50 - 5.10 mg/dL Blood 03/22/2024 6:30 PM ASSISTANT THERAPY AIDE 03/22/2024 6:42 PM ASSISTANT THERAPY AIDE Sara Shanna Edwards WHEEL MILL OPERATOR LAB BLOOD ORDERABLES Final Result [facility] [address] Department of [employer] [place], [place] [id number] * aPTT (03/22/2024 6:30 PM ASSISTANT THERAPY AIDE) aPTT 30 28 - 38 sec Comment: Interpretive Data Heparin therapeutic range: 66.0 - 100.0 seconds. Range based on correlation with therapeutic heparin activity range of 0.3 - 0.7 Units/mL. Current interpretive data was last revised on 2022. Blood 03/22/2024 6:30 PM ASSISTANT THERAPY AIDE 03/22/2024 6:42 PM ASSISTANT THERAPY AIDE Sara Zieglerlubna Edwards WHEEL MILL OPERATOR LAB BLOOD ORDERABLES Final Result Performing Organization Address [facility] Co de Phone Number [facility] [address] [facility] [place] [address] * Protime-INR (03/22/2024 6:30 PM ASSISTANT THERAPY AIDE) Pathologist [facility] PT 12.8 9.7 - 13.0 sec INR 1.18 0.90 - 1.20 [facility] Comment: Interpretive data Oral anticoagulant therapeutic ranges: Venous thromboembolism prophylaxis or treatment: 2.0-3.0 CARDIOLOGY Standard range: 2.0-3.0 High-intensity range: 2.5-3.5 Refer to indication-specific guidelines for appropriate target ranges for prosthetic heart valve replacement. Current interpretive data was last revised on 2019. Blood 03/22/2024 6:30 PM ASSISTANT THERAPY AIDE 03/22/2024 6:42 PM ASSISTANT THERAPY AIDE Sara Zieglerlubna Edwards WHEEL MILL OPERATOR LAB BLOOD ORDERABLES Final Result Performing Organization Address [facility] Co de Phone Number [facility] [address] [facility] [place] [address] * (ABNORMAL) CBC without differential (03/22/2024 6:30 PM ASSISTANT THERAPY AIDE) [facility] WBC 9.6 3.8 - 9.9 K/cumm Hgb 9.9(L) 13.0 - 17.5 g/dL [facility] Hct 29.4(L) 38.9 - 50.3 % [facility] Plt 107(L) 150 - 400 K/cumm [facility] MPV 9.5 9.1 - 12.3 fL [facility] RBC 3.23(L) 4.30 - 5.80 M/cumm [facility] MCV 91.0 81.3 - 96.4 fL [facility] MCH 30.7 27.1 - 33.3 pg [facility] MCHC 33.7 32.3 - 35.7 g/dL [facility] RDW CV 12.7 11.1 - 14.9 % [facility] RDW SD 42.5 35.7 - 48.1 fL [facility] NRBC abs 0.00 0.00 - 0.01 K/cumm [facility] Blood 03/22/2024 6:30 PM ASSISTANT THERAPY AIDE 03/22/2024 6:42 PM ASSISTANT THERAPY AIDE Sara Zieglerlubna Edwards WHEEL MILL OPERATOR LAB BLOOD ORDERABLES Final Result Performing Organization Address City/[facility]/ZIP Co de Phone Number [facility] [address] [place] [address] * Magnesium (03/22/2024 6:30 PM ASSISTANT THERAPY AIDE) [facility] Magnesium 1.7 1.4 - 2.5 mg/dL Blood 03/22/2024 6:30 PM ASSISTANT THERAPY AIDE 03/22/2024 6:42 PM ASSISTANT THERAPY AIDE Sara Zieglerlubna Edwards WHEEL MILL OPERATOR LAB BLOOD ORDERABLES Final Result Performing Organization Address [facility] Co de Phone Number [facility] [address] [place] [address] * (ABNORMAL) Renal function panel (03/22/2024 6:30 PM ASSISTANT THERAPY AIDE) Sodium 133(L) 135 - 145 mmol/L Potassium, pl 4.1 3.3 - 4.9 mmol/L [facility] Chloride 101 97 - 110 mmol/L [facility] CO2 20(L) 22 - 32 mmol/L [facility] Anion gap 12 2 - 15 mmol/L [facility] BUN 15 6 - 25 mg/dL [facility] Creatinine 0.98 0.80 - 1.30 mg/dL [facility] Glucose 89 70 - 199 mg/dL [facility] Comment: Interpretive Data Fasting glucose >/= 126 [...] 2022. Calcium 7.5(L) 8.5 - 10.3 mg/dL [facility] Phosphorus, pl 3.0 2.3 - 4.5 mg/dL [facility] Albumin 2.8(L) 3.5 - 5.0 g/dL [facility] Blood 03/22/2024 6:30 PM ASSISTANT THERAPY AIDE 03/22/2024 6:42 PM ASSISTANT THERAPY AIDE us Sara Edwards NP LAB BLOOD ORDERABLES Final Result [facility] [address] Department [place] [address] * Critical Care (03/22/2024 5:43 PM ASSISTANT THERAPY AIDE) Narrative Mauri Odell MD - 03/22/2024 5:43 PM ASSISTANT THERAPY AIDE Sara Edwards NP 03/22/2024 5:52 PM Critical Care Performed by: Sara Edwards NP Authorized by: Sara Edwards NP CRITICAL CARE: Team: [facility] CT Shift: AM Level of Billing: Critical [...] plan with the ICU team and other medical/information resource consultant staff, making frequent assessments and decisions [...] documenting in the medical record Sara Edwards WHEEL MILL OPERATOR IN CLINIC/BEDSIDE ORDERABL ES Final Result * REVAS ENDOVASILIAC W STNT [id number] (03/22/2024 4:52 PM ASSISTANT THERAPY AIDE) Anatomical Region Laterality Modality X-Ray Angiograph y Narrative 03/22/2024 4:54 PM ASSISTANT THERAPY AIDE Please see OpNote for result. Basil Adhikari MD CV CARDIAC CATH PROCEDUR ES Final Result * (ABNORMAL) POC Activated Clotting Time, High Range (03/22/2024 4:51 PM ASSISTANT THERAPY AIDE) Pathologist [facility] ACT 139(H) 87 - 138 sec Blood 03/22/2024 4:51 PM ASSISTANT THERAPY AIDE 03/22/2024 4:51 PM ASSISTANT THERAPY AIDE Basil Adhikari MD LAB BLOOD ORDERABLES Fin al Result [facility] [address] Department of Laboratories [place], [place] [id number] * (ABNORMAL) POC Blood Gas and Chemistries, Venous - (03/22/2024 4:29 PM ASSISTANT THERAPY AIDE) pH, Boyd POC 7.31(L) 7.32 - 7.45 pCO2, boyd POC 48 40 - 50 mmHg [facility] pO2, boyd POC 64(H) 35 - 42 mmHg [facility] Na, POC 129(L) 135 - 145 mmol/L [facility] K POC 4.1 3.3 - 4.9 mmol/L [facility] Comment: Interpretive Data This method is not able to assess for hemolysis, which may falsely increase potassium concentrations. If further testing is needed to evaluate this result, consider in-laboratory plasma potassium. Current Interpretive Data was last revised on 2021. Cl, POC 101 97 - 110 mmol/L [facility] Ionized Ca, POC 4.62 4.50 - 5.10 mg/dL [facility] Glucose, POC 95 70 - 199 mg/dL [facility] Lactate, POC 0.7 0.0 - 2.0 mmol/L [facility] O2Hb, Boyd POC 90.2 90.0 - 95.0 % [facility] Carboxhgb fract 1.9 0.0 - 2.9 % [facility] Methemoglobin 1.3 0.0 - 1.9 % [facility] HHb, POC 6.6(H) 0.0 - 5.0 % [facility] O2 Sat, Boyd POC (Shayne) 93(H) 68 - 77 % [facility] Total CO2, boyd POC 26 22 - 32 mmol/L [facility] Base excess, boyd POC -2.2 mmol/L [facility] HCO3, Boyd POC 23 20 - 30 mmol/L [facility] Hct, POC 30.0(L) 38.9 - 50.3 % [facility] Total Hb, POC 9.9(L) 13.0 - 17.5 g/dL [facility] Blood 03/22/2024 4:29 PM ASSISTANT THERAPY AIDE 03/22/2024 4:29 PM ASSISTANT THERAPY AIDE us Basil Adhikari MD LAB POCT ORDERABLES - DE VICE Final Result Performing Organization Address City/[facility]/ZIP Co de Phone Number [place] [id number] [place] [address] * (ABNORMAL) POC Activated Clotting Time, High Range (03/22/2024 4:10 PM ASSISTANT THERAPY AIDE) ACT 386(H) 87 - 138 sec Blood 03/22/2024 4:10 PM ASSISTANT THERAPY AIDE 03/22/2024 4:10 PM ASSISTANT THERAPY AIDE Basil Adhikari MD LAB BLOOD ORDERABLES Fin al Result [facility] [address] [place] [address] * (ABNORMAL) POC Activated Clotting Time, High Range (03/22/2024 4:00 PM ASSISTANT THERAPY AIDE) ACT 174(H) 87 - 138 sec Blood 03/22/2024 4:00 PM ASSISTANT THERAPY AIDE 03/22/2024 4:00 PM ASSISTANT THERAPY AIDE Basil Adhikari MD LAB BLOOD ORDERABLES Fin al Result Performing Organization Address [facility] Co de Phone Number [facility] [address] [facility] [place] [address] * (ABNORMAL) POC Activated Clotting Time, High Range (03/22/2024 3:56 PM ASSISTANT THERAPY AIDE) ACT 145(H) 87 - 138 sec Blood 03/22/2024 3:56 PM ASSISTANT THERAPY AIDE 03/22/2024 3:56 PM ASSISTANT THERAPY AIDE Basil Adhikari MD LAB BLOOD ORDERABLES Fin al Result Performing Organization Address [facility] Co de Phone Number [facility] [address] [facility] [place] [address] * (ABNORMAL) POC Activated Clotting Time, High Range (03/22/2024 3:28 PM ASSISTANT THERAPY AIDE) ACT 457(H) 87 - 138 sec Blood 03/22/2024 3:28 PM ASSISTANT THERAPY AIDE 03/22/2024 3:28 PM ASSISTANT THERAPY AIDE Basil Adhikari MD LAB BLOOD ORDERABLES Fin al Result Performing Organization Address [facility] Co de Phone Number [facility] [address] [facility] [place] [address] * (ABNORMAL) POCT Activated clotting time, low range (03/22/2024 3:21 PM ASSISTANT THERAPY AIDE) ACT >400(H) 123 - 168 sec Blood 03/22/2024 3:21 PM ASSISTANT THERAPY AIDE 03/22/2024 3:21 PM ASSISTANT THERAPY AIDE us Basil Adhikari MD LAB POCT ORDERABLES - DE VICE Final Result [facility] [address] Department [place] [address] * MD AN ELECTIVE ENDOTRACHEAL AIRWAY, MD AN PROCEDURE PLACEHOLDER (03/22/2024 3:08 PM ASSISTANT THERAPY AIDE) Narrative Gamal Asher MD PhD - 03/22/2024 3:08 PM ASSISTANT THERAPY AIDE Gamal Asher MD PhD 03/22/2024 3:09 PM [...] Prepare RBC: 2 Units (03/22/2024 2:42 PM ASSISTANT THERAPY AIDE) Product code [id number] Unit Number [id number] 8-* [facility] Product Blood Type OPOS [facility] Dispense Status RETURNED [facility] Product code [id number] [facility] Unit Number [id number] 6-K [facility] Product Blood Type OPOS [facility] Dispense Status RETURNED [facility] Blood 03/22/2024 2:42 PM ASSISTANT THERAPY AIDE Narrative [facility] - 03/26/2024 7:31 AM ASSISTANT THERAPY AIDE Are special requirements needed? (All products are leukoreduced and CMV- safe)- >No Date required:-[id number] LRRBC # of [id number] Reasons:-Intra-op transfusion} us Gamal Asher MD PhD BLOOD BANK PRODUCT ORDER AMARA Final Result [facility] [address] Department [place] [address] * XR Chest 1 View - Portable - in AM (03/22/2024 7:26 AM ASSISTANT THERAPY AIDE) Anatomical Region Laterality Modality Body, Chest N/A Computed Radiogr aphy 03/22/2024 8:08 AM ASSISTANT THERAPY AIDE Impressions 03/22/2024 8:08 AM ASSISTANT THERAPY AIDE Comparison is made to 03/21/2024. Right jugular [...] Ruy Hager M.D. Narrative 03/22/2024 8:08 AM ASSISTANT THERAPY AIDE Examination: Chest 1 view Procedure Note Ruy [...] by: Ruy Hager M.D. us Ale Mcknight WHEEL MILL OPERATOR IMG XR PROCEDURES Final Result * eGFR (03/22/2024 1:34 AM ASSISTANT THERAPY AIDE) eGFR 73 >=60 mL/min/1. 73 m2 Comment: [...] last reviewed 2021. Blood 03/22/2024 1:34 AM ASSISTANT THERAPY AIDE 03/22/2024 2:00 AM ASSISTANT THERAPY AIDE us Brenda Mayberry WHEEL MILL OPERATOR LAB BLOOD ORDERABLES Final Result [facility] [address] Department [place] [address] * (ABNORMAL) CBC without differential (03/22/2024 1:34 AM ASSISTANT THERAPY AIDE) [facility] WBC 9.0 3.8 - 9.9 K/cumm Hgb 10.2(L) 13.0 - 17.5 g/dL [facility] Hct 30.6(L) 38.9 - 50.3 % [facility] Plt 111(L) 150 - 400 K/cumm [facility] MPV 10.1 9.1 - 12.3 fL [facility] RBC 3.41(L) 4.30 - 5.80 M/cumm [facility] MCV 89.7 81.3 - 96.4 fL [facility] MCH 29.9 27.1 - 33.3 pg [facility] MCHC 33.3 32.3 - 35.7 g/dL [facility] RDW CV 12.8 11.1 - 14.9 % [facility] RDW SD 42.0 35.7 - 48.1 fL [facility] NRBC abs 0.00 0.00 - 0.01 K/cumm [facility] Blood 03/22/2024 1:34 AM ASSISTANT THERAPY AIDE 03/22/2024 2:00 AM ASSISTANT THERAPY AIDE Ale Mcknight WHEEL MILL OPERATOR LAB BLOOD ORDERABLES Fin al Result Performing Organization Address City/[facility]/ZIP Co de Phone Number [facility] [address] [facility] [employer] [place], [place] [id number] * Type and screen (03/22/2024 1:34 AM ASSISTANT THERAPY AIDE) Alex, indirect Negative ABO Rh O Positive [facility] Blood 03/22/2024 1:34 AM ASSISTANT THERAPY AIDE 03/22/2024 1:56 AM ASSISTANT THERAPY AIDE Narrative [facility] - 03/22/2024 2:43 AM ASSISTANT THERAPY AIDE Has the patient had Daratumumab or Isatuximab in the past 6 months?->Unknown Result [facility] Ale Mcknight NP LAB BLOOD BANK TEST ORDE RABLES Final Result Performing Organization Address [facility] Co de Phone Number [facility] [address] [place] [address] * Magnesium (03/22/2024 1:34 AM ASSISTANT THERAPY AIDE) Magnesium 1.9 1.4 - 2.5 mg/dL Blood 03/22/2024 1:34 AM ASSISTANT THERAPY AIDE 03/22/2024 2:00 AM ASSISTANT THERAPY AIDE Ale Mcknight WHEEL MILL OPERATOR LAB BLOOD ORDERABLES Fin al Result Performing Organization Address City/[facility]/ZIP Co de Phone Number [facility] [address] Department [place] [address] * (ABNORMAL) Renal function panel (03/22/2024 1:34 AM ASSISTANT THERAPY AIDE) Sodium 130(L) 135 - 145 mmol/L Potassium, pl 4.1 3.3 - 4.9 mmol/L [facility] Chloride 96(L) 97 - 110 mmol/L [facility] CO2 21(L) 22 - 32 mmol/L [facility] Anion gap 13 2 - 15 mmol/L [facility] BUN 17 6 - 25 mg/dL [facility] Creatinine 1.01 0.80 - 1.30 mg/dL [facility] Glucose 94 70 - 199 mg/dL [facility] Comment: Interpretive Data Fasting glucose >/= 126 [...] 2022. Calcium 8.3(L) 8.5 - 10.3 mg/dL [facility] Phosphorus, pl 2.8 2.3 - 4.5 mg/dL [facility] Albumin 3.2(L) 3.5 - 5.0 g/dL [facility] Blood 03/22/2024 1:34 AM ASSISTANT THERAPY AIDE 03/22/2024 2:00 AM ASSISTANT THERAPY AIDE us Ale Mcknight NP LAB BLOOD ORDERABLES Fin al Result [facility] [address] Department [place] [address] * (ABNORMAL) aPTT (03/21/2024 8:12 PM ASSISTANT THERAPY AIDE) aPTT 43(H) 28 - 38 sec Comment: Interpretive Data Heparin therapeutic range: 66.0 - 100.0 seconds. Range based on correlation with therapeutic heparin activity range of 0.3 - 0.7 Units/mL. Current interpretive data was last revised on 2022. Blood 03/21/2024 8:12 PM ASSISTANT THERAPY AIDE 03/21/2024 8:17 PM ASSISTANT THERAPY AIDE Narrative [facility] - 03/21/2024 8:26 PM ASSISTANT THERAPY AIDE STAT PTT timing: - Draw 6 hours [...] SOLIS LAB BLOOD ORDERABLES Final R esult [facility] [address] [place] [address] * (ABNORMAL) aPTT (03/21/2024 12:40 PM ASSISTANT THERAPY AIDE) [facility] aPTT 47(H) 28 - 38 sec Comment: Interpretive Data Heparin therapeutic range: 66.0 - 100.0 seconds. Range based on correlation with therapeutic heparin activity range of 0.3 - 0.7 Units/mL. Current interpretive data was last revised on 2022. Blood 03/21/2024 12:4 0 PM ASSISTANT THERAPY AIDE 03/21/2024 12:44 PM ASSISTANT THERAPY AIDE Narrative [facility] - 03/21/2024 1:11 PM ASSISTANT THERAPY AIDE STAT PTT timing: - Draw 6 hours [...] ORDERABLES Final R esult Performing Organization Address [facility] Co de Phone Number [facility] [address] [place] [address] * aPTT (03/21/2024 10:35 AM ASSISTANT THERAPY AIDE) aPTT 37 28 - 38 sec Comment: Interpretive Data Heparin therapeutic range: 66.0 - 100.0 seconds. Range based on correlation with therapeutic heparin activity range of 0.3 - 0.7 Units/mL. Current interpretive data was last revised on 2022. Blood 03/21/2024 10:3 5 AM ASSISTANT THERAPY AIDE 03/21/2024 10:41 AM ASSISTANT THERAPY AIDE Basil Adhikari MD LAB BLOOD ORDERABLES Fin al Result Performing Organization Address [facility] de Phone Number [facility] [address] [place] [address] * XR Chest 1 View - Portable - in AM (03/21/2024 7:43 AM ASSISTANT THERAPY AIDE) Anatomical Region Laterality Modality Body, Chest N/A Computed Radiogr aphy 03/21/2024 7:47 AM ASSISTANT THERAPY AIDE Impressions 03/21/2024 7:47 AM ASSISTANT THERAPY AIDE Right internal jugular central venous catheter terminates in the superior cavoatrial junction. Median sternotomy. Aortic valve replacement. Calcified atherosclerotic aorta. Mild cardiomegaly is unchanged. There is bibasilar subsegmental atelectasis, unchanged from the prior examination. Questionable small left pleural effusion is also unchanged. No pneumothorax. Electronically signed by: Manuel Mike M.D. Narrative 03/21/2024 7:47 AM ASSISTANT THERAPY AIDE PORTABLE CHEST RADIOGRAPH INDICATION: pleural effusion COMPARISON: [...] signed by: Manuel Mike M.D. Ale Mcknight WHEEL MILL OPERATOR IMG XR PROCEDURES Final Result * (ABNORMAL) aPTT (03/21/2024 2:27 AM ASSISTANT THERAPY AIDE) aPTT 60(H) 28 - 38 sec Comment: Interpretive Data Heparin therapeutic range: 66.0 - 100.0 seconds. Range based on correlation with therapeutic heparin activity range of 0.3 - 0.7 Units/mL. Current interpretive data was last revised on 2022. Blood 03/21/2024 2:27 AM ASSISTANT THERAPY AIDE 03/21/2024 2:52 AM ASSISTANT THERAPY AIDE Francis [facility] - 03/21/2024 3:10 AM ASSISTANT THERAPY AIDE STAT PTT timing: - Draw 6 hours [...] SOLIS LAB BLOOD ORDERABLES Final R esult [facility] [address] Department [place] [address] * eGFR (03/21/2024 2:24 AM ASSISTANT THERAPY AIDE) eGFR 77 >=60 mL/min/1. 73 m2 Comment: [...] last reviewed 2021. Blood 03/21/2024 2:24 AM ASSISTANT THERAPY AIDE 03/21/2024 2:52 AM ASSISTANT THERAPY AIDE Brenda Mayberry NP LAB BLOOD ORDERABLES Final Result Performing Organization Address City/[facility]/ZIP Co de Phone Number [facility] [address] [place] [address] * (ABNORMAL) CBC without differential (03/21/2024 2:24 AM ASSISTANT THERAPY AIDE) Pathologist [facility] WBC 10.9(H) 3.8 - 9.9 K/cumm Hgb 11.1(L) 13.0 - 17.5 g/dL [facility] Hct 32.9(L) 38.9 - 50.3 % [facility] Plt 97(L) 150 - 400 K/cumm [facility] MPV 10.2 9.1 - 12.3 fL [facility] RBC 3.68(L) 4.30 - 5.80 M/cumm [facility] MCV 89.4 81.3 - 96.4 fL [facility] MCH 30.2 27.1 - 33.3 pg [facility] MCHC 33.7 32.3 - 35.7 g/dL [facility] RDW CV 12.7 11.1 - 14.9 % [facility] RDW SD 41.5 35.7 - 48.1 fL [facility] NRBC abs 0.00 0.00 - 0.01 K/cumm [facility] Blood 03/21/2024 2:24 AM ASSISTANT THERAPY AIDE 03/21/2024 2:52 AM ASSISTANT THERAPY AIDE Ale Mcknight WHEEL MILL OPERATOR LAB BLOOD ORDERABLES Fin al Result [facility] [address] [facility] [employer] [place], [place] [id number] * Magnesium (03/21/2024 2:24 AM ASSISTANT THERAPY AIDE) [facility] Magnesium 1.8 1.4 - 2.5 mg/dL Blood 03/21/2024 2:24 AM ASSISTANT THERAPY AIDE 03/21/2024 2:52 AM ASSISTANT THERAPY AIDE Ale Mcknight WHEEL MILL OPERATOR LAB BLOOD ORDERABLES Fin al Result Performing Organization Address City/[facility]/ZIP Co de Phone Number [facility] [address] [place] [address] * (ABNORMAL) Renal function panel (03/21/2024 2:24 AM ASSISTANT THERAPY AIDE) Sodium 128(L) 135 - 145 mmol/L Potassium, pl 4.0 3.3 - 4.9 mmol/L [facility] Chloride 96(L) 97 - 110 mmol/L [facility] CO2 21(L) 22 - 32 mmol/L [facility] Anion gap 11 2 - 15 mmol/L [facility] BUN 18 6 - 25 mg/dL [facility] Creatinine 0.97 0.80 - 1.30 mg/dL [facility] Glucose 108 70 - 199 mg/dL [facility] Comment: Interpretive Data Fasting glucose >/= 126 [...] 2022. Calcium 8.4(L) 8.5 - 10.3 mg/dL [facility] Phosphorus, pl 1.8(L) 2.3 - 4.5 mg/dL [facility] Albumin 3.4(L) 3.5 - 5.0 g/dL [facility] Blood 03/21/2024 2:24 AM ASSISTANT THERAPY AIDE 03/21/2024 2:52 AM ASSISTANT THERAPY AIDE us Ale Mcknight NP LAB BLOOD ORDERABLES Fin al Result [facility] [address] [place] [address] * (ABNORMAL) aPTT (03/20/2024 4:57 PM ASSISTANT THERAPY AIDE) aPTT 48(H) 28 - 38 sec Comment: Interpretive Data Heparin therapeutic range: 66.0 - 100.0 seconds. Range based on correlation with therapeutic heparin activity range of 0.3 - 0.7 Units/mL. Current interpretive data was last revised on 2022. Blood 03/20/2024 4:57 PM ASSISTANT THERAPY AIDE 03/20/2024 5:16 PM ASSISTANT THERAPY AIDE Narrative [facility] - 03/20/2024 5:33 PM ASSISTANT THERAPY AIDE STAT PTT timing: - Draw 6 hours [...] Benny SOLIS LAB BLOOD ORDERABLES Final R [facility] Performing Organization Address [facility] Co de Phone Number [facility] [address] Department [employer] [place], [place] [id number] * aPTT (03/20/2024 9:27 AM ASSISTANT THERAPY AIDE) aPTT 34 28 - 38 sec Comment: Interpretive Data Heparin therapeutic range: 66.0 - 100.0 seconds. Range based on correlation with therapeutic heparin activity range of 0.3 - 0.7 Units/mL. Current interpretive data was last revised on 2022. Blood 03/20/2024 9:27 AM ASSISTANT THERAPY AIDE 03/20/2024 9:41 AM ASSISTANT THERAPY AIDE Narrative [facility] - 03/20/2024 9:57 AM ASSISTANT THERAPY AIDE Baseline prior to heparin initiation Benny SOLIS LAB BLOOD ORDERABLES Final R [facility] Performing Organization Address [facility] Co de Phone Number [facility] [address] [facility] [place] [address] * (ABNORMAL) Protime-INR (03/20/2024 9:27 AM ASSISTANT THERAPY AIDE) PT 14.9(H) 9.7 - 13.0 sec INR 1.37(H) 0.90 - 1.[address] [facility] Comment: Interpretive data Oral anticoagulant therapeutic ranges: Venous thromboembolism prophylaxis or treatment: 2.0-3.0 CARDIOLOGY Standard range: 2.0-3.0 High-intensity range: 2.5-3.5 Refer to indication-specific guidelines for appropriate target ranges for prosthetic heart valve replacement. Current interpretive data was last revised on 2019. Blood 03/20/2024 9:27 AM ASSISTANT THERAPY AIDE 03/20/2024 9:41 AM ASSISTANT THERAPY AIDE Narrative [facility] - 03/20/2024 9:57 AM ASSISTANT THERAPY AIDE Baseline prior to heparin initiation us Benny SOLIS LAB BLOOD ORDERABLES Final R esult [facility] [address] [place] [address] * XR Chest 1 View - Portable - in AM (03/20/2024 9:17 AM ASSISTANT THERAPY AIDE) Anatomical Region Laterality Modality Body, Chest N/A Computed Radiogr aphy 03/20/2024 2:59 PM ASSISTANT THERAPY AIDE Impressions 03/20/2024 2:59 PM ASSISTANT THERAPY AIDE Comparison is made to prior examination 03/19/2024. Unchanged median sternotomy wires and aortic valve replacement. Right internal jugular central venous catheter tip overlies superior caval atrial junction. Surgical drain is in place. Stable to minimally increased bibasilar opacities favored represent atelectasis with possible small left pleural effusion. No pneumothorax. Unchanged cardiomegaly. Electronically signed by: Gian Henriquez M.D. Narrative 03/20/2024 2:59 PM ASSISTANT THERAPY AIDE EXAMINATION: XR CHEST 1 VIEW Procedure Note [...] by: Gian Henriquez M.D. us Ale Mcknight WHEEL MILL OPERATOR IMG XR PROCEDURES Final Result * eGFR (03/20/2024 1:03 AM ASSISTANT THERAPY AIDE) eGFR 72 >=60 mL/min/1. 73 m2 Comment: [...] last reviewed 2021. Blood 03/20/2024 1:03 AM ASSISTANT THERAPY AIDE 03/20/2024 1:33 AM ASSISTANT THERAPY AIDE Brenda Mayberry NP LAB BLOOD ORDERABLES Final Result Performing Organization Address City/[facility]/ZIP Co de Phone Number [facility] [address] [facility] [employer] [place], [place] [id number] * Calcium, ionized (03/20/2024 1:03 AM ASSISTANT THERAPY AIDE) Pathologist [facility] Calcium, Ionized 4.80 4.50 - 5.10 mg/dL Blood 03/20/2024 1:03 AM ASSISTANT THERAPY AIDE 03/20/2024 1:11 AM ASSISTANT THERAPY AIDE Brenda Mayberry NP LAB BLOOD ORDERABLES Final Result Performing Organization Address City/[facility]/ZIP Co de Phone Number [facility] [address] [place] [address] * (ABNORMAL) CBC without differential (03/20/2024 1:03 AM ASSISTANT THERAPY AIDE) Pathologist [facility] WBC 12.7(H) 3.8 - 9.9 K/cumm Hgb 12.2(L) 13.0 - 17.5 g/dL [facility] Hct 35.9(L) 38.9 - 50.3 % [facility] Plt 104(L) 150 - 400 K/cumm [facility] MPV 10.0 9.1 - 12.3 fL [facility] RBC 4.04(L) 4.30 - 5.80 M/cumm [facility] MCV 88.9 81.3 - 96.4 fL [facility] MCH 30.2 27.1 - 33.3 pg [facility] MCHC 34.0 32.3 - 35.7 g/dL [facility] RDW CV 12.8 11.1 - 14.9 % [facility] RDW SD 41.5 35.7 - 48.1 fL [facility] NRBC abs 0.00 0.00 - 0.01 K/cumm [facility] Blood 03/20/2024 1:03 AM ASSISTANT THERAPY AIDE 03/20/2024 1:33 AM ASSISTANT THERAPY AIDE Ale Mcknight WHEEL [employer] OPERATOR LAB BLOOD ORDERABLES Fin al Result Performing Organization Address City/[facility]/ZIP Co de Phone Number [facility] [address] [facility] [place] [address] * Magnesium (03/20/2024 1:03 AM ASSISTANT THERAPY AIDE) [facility] Magnesium 2.0 1.4 - 2.5 mg/dL Blood 03/20/2024 1:03 AM ASSISTANT THERAPY AIDE 03/20/2024 1:33 AM ASSISTANT THERAPY AIDE Ale Mcknight WHEEL MILL OPERATOR LAB BLOOD ORDERABLES Fin al Result Performing Organization Address City/[facility] Co de Phone Number [facility] [address] [place] [address] * (ABNORMAL) Renal function panel (03/20/2024 1:03 AM ASSISTANT THERAPY AIDE) [facility] Sodium 132(L) 135 - 145 mmol/L Potassium, pl 4.5 3.3 - 4.9 mmol/L [facility] Chloride 99 97 - 110 mmol/L [facility] CO2 21(L) 22 - 32 mmol/L [facility] Anion gap 12 2 - 15 mmol/L [facility] BUN 17 6 - 25 mg/dL [facility] Creatinine 1.03 0.80 - 1.30 mg/dL [facility] Glucose 119 70 - 199 mg/dL [facility] Comment: Interpretive Data Fasting glucose >/= 126 [...] 2022. Calcium 8.8 8.5 - 10.3 mg/dL [facility] Phosphorus, pl 2.7 2.3 - 4.5 mg/dL [facility] Albumin 3.6 3.5 - 5.0 g/dL [facility] Blood 03/20/2024 1:03 AM ASSISTANT THERAPY AIDE 03/20/2024 1:33 AM ASSISTANT THERAPY AIDE Ale Mcknight NP LAB BLOOD ORDERABLES Fin al Result [facility] [address] Department of Laboratories [place], [place] [id number] * Prepare RBC: 2 Units (03/19/2024 4:56 PM ASSISTANT THERAPY AIDE) [facility] Product code [id number] [facility] Unit Number [id number] 2-F [facility] Product Blood Type OPOS [facility] Dispense Status RETURNED [facility] Product code [id number] Unit Number [id number] 3-Q [facility] Product Blood Type OPOS [facility] Dispense Status RETURNED [facility] Blood 03/19/2024 4:56 PM ASSISTANT THERAPY AIDE Narrative [facility] - 03/19/2024 5:48 PM ASSISTANT THERAPY AIDE Specify Procedure:->iliac stent Are special requirements needed? (All products are leukoreduced and CMV- safe)- >No Date required:-[id number] LRRBC # of [id number] Reasons:-Hold for procedure (specify procedure)} us Basil Adhikari MD BLOOD BANK PRODUCT ORDER AMARA Final Result [facility] [address] Department [place] [address] * CTA Abdomen Pelvis (03/19/2024 9:06 AM ASSISTANT THERAPY AIDE) Anatomical Region Laterality Modality Body N/A Computed Tomogra phy 03/19/2024 12:2 8 PM ASSISTANT THERAPY AIDE Impressions 03/19/2024 12:49 PM ASSISTANT THERAPY AIDE 1. Left common iliac artery aneurysm measuring [...] Josr Lindsey M.D. Narrative 03/19/2024 12:49 PM ASSISTANT THERAPY AIDE EXAMINATION: CT ANGIOGRAPHY OF THE ABDOMEN AND [...] by: Josr Lindsey M.D. us Brenda Mayberry WHEEL MILL OPERATOR IMG CT PROCEDURES Final Re sult * Potassium (03/19/2024 6:48 AM ASSISTANT THERAPY AIDE) Potassium, pl 4.7 3.3 - 4.9 mmol/L Blood 03/19/2024 6:48 AM ASSISTANT THERAPY AIDE 03/19/2024 7:04 AM ASSISTANT THERAPY AIDE us Brenda Mayberry NP LAB BLOOD ORDERABLES Final Result [facility] [address] Department of Laboratories [place], [place] [id number] * Critical Care (03/19/2024 6:40 AM ASSISTANT THERAPY AIDE) Narrative Gian Robertson MD - 03/19/2024 6:40 AM ASSISTANT THERAPY AIDE Brenda Mayberry NP 03/19/2024 10:29 AM Critical Care Performed by: Brenda Mayberry NP Authorized by: Brenda Mayberry NP CRITICAL CARE: Team: [facility] CT Shift: AM Level of Billing: Subsequent [...] plan with the patient's team and other medical/information resource consultant staff. This time was in addition to and separate from care provided by other practitioners on this day of service. us Brenda Yamile Jefe WHEEL MILL OPERATOR IN CLINIC/BEDSIDE ORDERABL ES Final Result * XR Chest 1 View - Portable - in AM (03/19/2024 6:37 AM ASSISTANT THERAPY AIDE) Anatomical Region Laterality Modality Body, Chest N/A Computed Radiogr aphy 03/19/2024 7:56 AM ASSISTANT THERAPY AIDE Impressions 03/19/2024 7:56 AM ASSISTANT THERAPY AIDE Comparison is made to prior chest radiograph [...] Josselin Xavier M.D. Narrative 03/19/2024 7:56 AM ASSISTANT THERAPY AIDE EXAMINATION: XR CHEST 1 VIEW Procedure Note [...] signed by: Josselin Xavier M.D. Ale Mcknight WHEEL MILL OPERATOR IMG XR PROCEDURES Final Result * POCT glucose (03/19/2024 6:01 AM ASSISTANT THERAPY AIDE) Glucose, POC 110 70 - 199 mg/dL Comment: For Glucose values <35 mg/dl when Hematocrit is >60 mg/dl,the test may not accurately detect significant hypoglycemia,and testing in the Laboratory should be considered if clinically indicated. Blood 03/19/2024 6:01 AM ASSISTANT THERAPY AIDE 03/19/2024 6:01 AM ASSISTANT THERAPY AIDE us Basil Adhikari MD LAB POCT ORDERABLES - DE VICE Final Result Performing Organization Address [facility] Co de Phone Number [facility] [address] [facility] [place] [address] * POCT glucose (03/19/2024 2:13 AM ASSISTANT THERAPY AIDE) Pathologist [facility] Glucose, POC 111 70 - 199 mg/dL Comment: For Glucose values <35 mg/dl when Hematocrit is >60 mg/dl,the test may not accurately detect significant hypoglycemia,and testing in the Laboratory should be considered if clinically indicated. Blood 03/19/2024 2:13 AM ASSISTANT THERAPY AIDE 03/19/2024 2:13 AM ASSISTANT THERAPY AIDE Basil Adhikari MD LAB POCT ORDERABLES - DE VICE Final Result Performing Organization Address [facility] Co de Phone Number [facility] [address] [facility] [place] [address] * POCT glucose (03/19/2024 12:18 AM ASSISTANT THERAPY AIDE) [facility] Glucose, POC 145 70 - 199 mg/dL Comment: For Glucose values <35 mg/dl when Hematocrit is >60 mg/dl,the test may not accurately detect significant hypoglycemia,and testing in the Laboratory should be considered if clinically indicated. Blood 03/19/2024 12:1 8 AM ASSISTANT THERAPY AIDE 03/19/2024 12:18 AM ASSISTANT THERAPY AIDE Basil Adhikari MD LAB POCT ORDERABLES - DE VICE Final Result Performing Organization Address [facility] Co de Phone Number [facility] [address] [facility] [place] [address] * eGFR (03/19/2024 12:04 AM ASSISTANT THERAPY AIDE) Pathologist [facility] eGFR 85 >=60 mL/min/1. 73 m2 Comment: [...] reviewed 2021. Blood 03/19/2024 12:0 4 AM ASSISTANT THERAPY AIDE 03/19/2024 12:58 AM ASSISTANT THERAPY AIDE Brenda Mayberry NP LAB BLOOD ORDERABLES Final Result Performing Organization Address City/[facility]/ZIP Co de Phone Number [facility] [address] [place] [address] * (ABNORMAL) Calcium, ionized (03/19/2024 12:04 AM ASSISTANT THERAPY AIDE) Calcium, Ionized 4.47(L) 4.50 - 5.10 mg/dL Blood 03/19/2024 12:0 4 AM ASSISTANT THERAPY AIDE 03/19/2024 12:26 AM ASSISTANT THERAPY AIDE Brenda Mayberry NP LAB BLOOD ORDERABLES Final Result Performing Organization Address City/[facility]/ZIP Co de Phone Number [facility] [address] [place] [address] * (ABNORMAL) CBC without differential (03/19/2024 12:04 AM ASSISTANT THERAPY AIDE) WBC 8.7 3.8 - 9.9 K/cumm Hgb 12.5(L) 13.0 - 17.5 g/dL [facility] Hct 36.8(L) 38.9 - 50.3 % [facility] Plt 103(L) 150 - 400 K/cumm [facility] MPV 10.4 9.1 - 12.3 fL [facility] RBC 4.14(L) 4.30 - 5.80 M/cumm [facility] MCV 88.9 81.3 - 96.4 fL [facility] MCH 30.2 27.1 - 33.3 pg [facility] MCHC 34.0 32.3 - 35.7 g/dL [facility] RDW CV 12.6 11.1 - 14.9 % [facility] RDW SD 41.0 35.7 - 48.1 fL [facility] NRBC abs 0.00 0.00 - 0.01 K/cumm [facility] Blood 03/19/2024 12:0 4 AM ASSISTANT THERAPY AIDE 03/19/2024 12:58 AM ASSISTANT THERAPY AIDE Ale Mcknight WHEEL MILL OPERATOR LAB BLOOD ORDERABLES Fin al Result Performing Organization Address [facility]/ZIP Co de Phone Number [facility] [address] [place] [address] * Magnesium (03/19/2024 12:04 AM ASSISTANT THERAPY AIDE) [facility] Magnesium 2.0 1.4 - 2.5 mg/dL Blood 03/19/2024 12:0 4 AM ASSISTANT THERAPY AIDE 03/19/2024 12:58 AM ASSISTANT THERAPY AIDE Ale Mcknight WHEEL MILL OPERATOR LAB BLOOD ORDERABLES Fin al Result Performing Organization Address [facility] Co de Phone Number [facility] [address] [place] [address] * (ABNORMAL) Renal function panel (03/19/2024 12:04 AM ASSISTANT THERAPY AIDE) Pathologist [facility] Sodium 131(L) 135 - 145 mmol/L Potassium, pl 5.1(H) 3.3 - 4.9 mmol/L [facility] Comment:Hemolyzed; potassium value may be falsely elevated by as much as 0.6 - 1.0 mmol/L. Suggest redraw and reanalysis Chloride 102 97 - 110 mmol/L [facility] CO2 18(L) 22 - 32 mmol/L [facility] Anion gap 11 2 - 15 mmol/L [facility] BUN 12 6 - 25 mg/dL [facility] Creatinine 0.88 0.80 - 1.30 mg/dL [facility] Glucose 146 70 - 199 mg/dL [facility] Comment: Interpretive Data Fasting glucose >/= 126 [...] 2022. Calcium 8.5 8.5 - 10.3 mg/dL [facility] Phosphorus, pl 3.7 2.3 - 4.5 mg/dL [facility] Albumin 3.7 3.5 - 5.0 g/dL [facility] Blood 03/19/2024 12:0 4 AM ASSISTANT THERAPY AIDE 03/19/2024 12:58 AM ASSISTANT THERAPY AIDE Ale Mcknight NP LAB BLOOD ORDERABLES Fin al Result [facility] [address] Department [place] [address] * POCT glucose (03/18/2024 9:02 PM ASSISTANT THERAPY AIDE) [facility] Glucose, POC 102 70 - 199 mg/dL Comment: For Glucose values <35 mg/dl when Hematocrit is >60 mg/dl,the test may not accurately detect significant hypoglycemia,and testing in the Laboratory should be considered if clinically indicated. Blood 03/18/2024 9:02 PM ASSISTANT THERAPY AIDE 03/18/2024 9:02 PM ASSISTANT THERAPY AIDE Basil Adhikari MD LAB POCT ORDERABLES - DE VICE Final Result Performing Organization Address [facility]/ZIP Co de Phone Number [facility] [address] [facility] [place] [address] * (ABNORMAL) Blood gas, arterial (03/18/2024 7:23 PM ASSISTANT THERAPY AIDE) pH, Art 7.45 7.35 - 7.45 PCO2, Arterial 28(L) 35 - 45 mmHg [facility] PO2, Arterial 195(H) 83 - 108 mmHg [facility] HCO3 Art (Calculated) 20 20 - 30 mmol/L [facility] BE, art -3 mmol/L [facility] Comment: Interpretive Data No Reference Range Established Current Interpretive Data was last revised on 2017 O2 Sat Art (Calculated) 100(H) 94 - 98 % [facility] Blood 03/18/2024 7:23 PM ASSISTANT THERAPY AIDE 03/18/2024 7:28 PM ASSISTANT THERAPY AIDE Brenda Mayberry WHEEL MILL OPERATOR LAB BLOOD ORDERABLES Final Result Performing Organization Address [facility]/ZIP Co de Phone Number [facility] [address] [facility] [employer] [place], [place] [id number] * POCT glucose (03/18/2024 7:12 PM ASSISTANT THERAPY AIDE) Glucose, POC 114 70 - 199 mg/dL Comment: For Glucose values <35 mg/dl when Hematocrit is >60 mg/dl,the test may not accurately detect significant hypoglycemia,and testing in the Laboratory should be considered if clinically indicated. Blood 03/18/2024 7:12 PM ASSISTANT THERAPY AIDE 03/18/2024 7:12 PM ASSISTANT THERAPY AIDE Basil Adhikari MD LAB POCT ORDERABLES - DE VICE Final Result Performing Organization Address City/[facility]/ZIP Co de Phone Number [facility] [address] [place] [address] * Critical Care (03/18/2024 6:39 PM ASSISTANT THERAPY AIDE) Narrative Gian Robertson MD - 03/18/2024 6:39 PM ASSISTANT THERAPY AIDE Rodreick Couch DNP 03/19/2024 5:10 AM Critical Care Performed by: Roderick Couch DNP Authorized by: Roderick Couch DNP CRITICAL CARE: Team: [facility] CT Shift: PM Level of Billing: Subsequent [...] plan with the patient's team and other medical/information resource consultant staff. This time was in addition to and separate from care provided by other practitioners on this day of service. us Roderick Couch DNP IN CLINIC/BEDSIDE OR DERABLES Final Result * POCT glucose (03/18/2024 6:07 PM ASSISTANT THERAPY AIDE) [facility] Signature Glucose, POC 82 70 - 199 mg/dL Comment: For Glucose values <35 mg/dl when Hematocrit is >60 mg/dl,the test may not accurately detect significant hypoglycemia,and testing in the Laboratory should be considered if clinically indicated. Blood 03/18/2024 6:07 PM ASSISTANT THERAPY AIDE 03/18/2024 6:07 PM ASSISTANT THERAPY AIDE us Basil Adhikari MD LAB POCT ORDERABLES - DE VICE Final Result [facility] [address] Department [place] [address] * XR Chest 1 View - Portable (03/18/2024 4:41 PM ASSISTANT THERAPY AIDE) Anatomical Region Laterality Modality Body, Chest N/A Computed Radiogr aphy 03/18/2024 6:28 PM ASSISTANT THERAPY AIDE Impressions 03/18/2024 6:28 PM ASSISTANT THERAPY AIDE FINDINGS/IMPRESSION: Postoperative changes of ascending aortic replacement is seen with sternotomy wires, and prosthetic aortic valve in place. A right IJ central venous catheter tip terminates in the superior vena cava. The right IJ [place]-Christoph catheter terminates in the main pulmonary artery. Mediastinal drains are seen. Bilateral shoulder arthroplasties are seen. Surgical clips superimposes the neck. Minimal left basilar atelectatic changes are seen. There is no focal consolidation, pleural effusion or pneumothorax. Cardiomediastinum is stable. Electronically signed by: Starla Hidalgo M.D. Narrative 03/18/2024 6:28 PM ASSISTANT THERAPY AIDE EXAMINATION: XR CHEST 1 VIEW HISTORY: cardiac [...] the superior vena cava. The right IJ [place]-Christoph catheter terminates in the main pulmonary artery. Mediastinal drains are seen. Bilateral shoulder arthroplasties are seen. Surgical clips superimposes the neck. Minimal left basilar atelectatic changes are seen. There is no focal consolidation, pleural effusion or pneumothorax. Cardiomediastinum is stable. Electronically signed by: Starla Hidalgo M.D. us Brenda Mayberry WHEEL MILL OPERATOR IMG XR PROCEDURES Final Re sult * POCT glucose (03/18/2024 4:27 PM ASSISTANT THERAPY AIDE) Glucose, POC 121 70 - 199 mg/dL Comment: For Glucose values <35 mg/dl when Hematocrit is >60 mg/dl,the test may not accurately detect significant hypoglycemia,and testing in the Laboratory should be considered if clinically indicated. Blood 03/18/2024 4:27 PM ASSISTANT THERAPY AIDE 03/18/2024 4:27 PM ASSISTANT THERAPY AIDE us Basil Adhikari MD LAB POCT ORDERABLES - DE VICE Final Result [facility] [address] Department [place] [address] * Critical Care (03/18/2024 4:19 PM ASSISTANT THERAPY AIDE) Narrative Gian Robertson MD - 03/18/2024 4:19 PM ASSISTANT THERAPY AIDE Brenda Mayberry NP 03/18/2024 5:34 PM Critical Care Performed by: Brenda Mayberry NP Authorized by: Brenda Mayberry NP CRITICAL CARE: Team: [facility] CT Shift: AM Level of Billing: Critical [...] plan with the ICU team and other medical/information resource consultant staff, making frequent assessments and decisions [...] Final Result * eGFR (03/18/2024 4:17 PM ASSISTANT THERAPY AIDE) eGFR 81 >=60 mL/min/1. 73 m2 Comment: [...] last reviewed 2021. Blood 03/18/2024 4:17 PM ASSISTANT THERAPY AIDE 03/18/2024 4:32 PM ASSISTANT THERAPY AIDE Brenda Mayberry NP LAB BLOOD ORDERABLES Final Result Performing Organization Address [facility] Co de Phone Number [facility] [address] Department [employer] [place], [place] [id number] * (ABNORMAL) Calcium, ionized (03/18/2024 4:17 PM ASSISTANT THERAPY AIDE) Calcium, Ionized 5.37(H) 4.50 - 5.10 mg/dL Blood 03/18/2024 4:17 PM ASSISTANT THERAPY AIDE 03/18/2024 4:32 PM ASSISTANT THERAPY AIDE Brenda Mayberry NP LAB BLOOD ORDERABLES Final Result Performing Organization Address [facility] de Phone Number [facility] [address] [place] [address] * aPTT (03/18/2024 4:17 PM ASSISTANT THERAPY AIDE) aPTT 37 28 - 38 sec Comment: Interpretive Data Heparin therapeutic range: 66.0 - 100.0 seconds. Range based on correlation with therapeutic heparin activity range of 0.3 - 0.7 Units/mL. Current interpretive data was last revised on 2022. Blood 03/18/2024 4:17 PM ASSISTANT THERAPY AIDE 03/18/2024 4:32 PM ASSISTANT THERAPY AIDE Brenda Mayberry NP LAB BLOOD ORDERABLES Final Result Performing Organization Address [facility]/ZIP Co de Phone Number [facility] [address] Department [place] [address] * (ABNORMAL) Protime-INR (03/18/2024 4:17 PM ASSISTANT THERAPY AIDE) [facility] PT 16.0(H) 9.7 - 13.0 sec INR 1.47(H) 0.90 - 1.20 [facility] Comment: Interpretive data Oral anticoagulant therapeutic ranges: Venous thromboembolism prophylaxis or treatment: 2.0-3.0 CARDIOLOGY Standard range: 2.0-3.0 High-intensity range: 2.5-3.5 Refer to indication-specific guidelines for appropriate target ranges for prosthetic heart valve replacement. Current interpretive data was last revised on 2019. Blood 03/18/2024 4:17 PM ASSISTANT THERAPY AIDE 03/18/2024 4:32 PM ASSISTANT THERAPY AIDE Brenda Mayberry NP LAB BLOOD ORDERABLES Final Result [facility] [address] [place] [address] * (ABNORMAL) CBC without differential (03/18/2024 4:17 PM ASSISTANT THERAPY AIDE) [facility] WBC 8.5 3.8 - 9.9 K/cumm Hgb 11.1(L) 13.0 - 17.5 g/dL [facility] Hct 31.9(L) 38.9 - 50.3 % [facility] Plt 95(L) 150 - 400 K/cumm [facility] MPV 9.2 9.1 - 12.3 fL [facility] RBC 3.65(L) 4.30 - 5.80 M/cumm [facility] MCV 87.4 81.3 - 96.4 fL [facility] MCH 30.4 27.1 - 33.3 pg [facility] MCHC 34.8 32.3 - 35.7 g/dL [facility] RDW CV 12.5 11.1 - 14.9 % [facility] RDW SD 39.9 35.7 - 48.1 fL [facility] NRBC abs 0.00 0.00 - 0.01 K/cumm [facility] Blood 03/18/2024 4:17 PM ASSISTANT THERAPY AIDE 03/18/2024 4:32 PM ASSISTANT THERAPY AIDE Brenda Mayberry WHEEL MILL OPERATOR LAB BLOOD ORDERABLES Final Result Performing Organization Address [facility] Co de Phone Number [facility] [address] [facility] [place] [address] * Phosphorus (03/18/2024 4:17 PM ASSISTANT THERAPY AIDE) [facility] Phosphorus, pl 3.6 2.3 - 4.5 mg/dL Blood 03/18/2024 4:17 PM ASSISTANT THERAPY AIDE 03/18/2024 4:32 PM ASSISTANT THERAPY AIDE Brenda Mayberry NP LAB BLOOD ORDERABLES Final Result Performing Organization Address [facility] de Phone Number [facility] [address] [place] [address] * Magnesium (03/18/2024 4:17 PM ASSISTANT THERAPY AIDE) [facility] Magnesium 2.3 1.4 - 2.5 mg/dL Blood 03/18/2024 4:17 PM ASSISTANT THERAPY AIDE 03/18/2024 4:32 PM ASSISTANT THERAPY AIDE Brenda Mayberry NP LAB BLOOD ORDERABLES Final Result Performing Organization Address [facility] de Phone Number [facility] [address] [facility] [place] [address] * (ABNORMAL) Blood gas, arterial (03/18/2024 4:17 PM ASSISTANT THERAPY AIDE) [facility] pH, Art 7.41 7.35 - 7.45 PCO2, Arterial 33(L) 35 - 45 mmHg [facility] PO2, Arterial 168(H) 83 - 108 mmHg [facility] HCO3 Art (Calculated) 21 20 - 30 mmol/L [facility] BE, art -3 mmol/L [facility] Comment: Interpretive Data No Reference Range Established Current Interpretive Data was last revised on 2017 O2 Sat Art (Calculated) 100(H) 94 - 98 % [facility] Blood 03/18/2024 4:17 PM ASSISTANT THERAPY AIDE 03/18/2024 4:32 PM ASSISTANT THERAPY AIDE Brenda Mayberry NP LAB BLOOD ORDERABLES Final Result Performing Organization Address [facility] Co de Phone Number [facility] [address] Department [place] [address] * (ABNORMAL) Basic metabolic panel (03/18/2024 4:17 PM ASSISTANT THERAPY AIDE) Sodium 137 135 - 145 mmol/L Potassium, pl 4.3 3.3 - 4.9 mmol/L [facility] Chloride 108 97 - 110 mmol/L [facility] CO2 21(L) 22 - 32 mmol/L [facility] Anion gap 8 2 - 15 mmol/L [facility] BUN 12 6 - 25 mg/dL [facility] Creatinine 0.93 0.80 - 1.30 mg/dL [facility] Glucose 124 70 - 199 mg/dL [facility] Comment: Interpretive Data Fasting glucose >/= 126 [...] 2022. Calcium 9.0 8.5 - 10.3 mg/dL [facility] Blood 03/18/2024 4:17 PM ASSISTANT THERAPY AIDE 03/18/2024 4:32 PM ASSISTANT THERAPY AIDE Brenda Mayberry NP LAB BLOOD ORDERABLES Final Result Performing Organization Address [facility] de Phone Number [facility] [address] [facility] [place] [address] * aPTT (03/18/2024 3:38 PM ASSISTANT THERAPY AIDE) Pathologist [facility] aPTT 38 28 - 38 sec Comment: Interpretive Data Heparin therapeutic range: 66.0 - 100.0 seconds. Range based on correlation with therapeutic heparin activity range of 0.3 - 0.7 Units/mL. Current interpretive data was last revised on 2022. Blood 03/18/2024 3:38 PM ASSISTANT THERAPY AIDE 03/18/2024 3:38 PM ASSISTANT THERAPY AIDE Basil Adhikari MD LAB BLOOD ORDERABLES Fin al Result Performing Organization Address [facility] de Phone Number [facility] [address] [facility] [place] [address] * (ABNORMAL) Protime-INR (03/18/2024 3:38 PM ASSISTANT THERAPY AIDE) [facility] PT 17.5(H) 9.7 - 13.0 sec INR 1.60(H) 0.90 - 1.20 [facility] Comment: Interpretive data Oral anticoagulant therapeutic ranges: Venous thromboembolism prophylaxis or treatment: 2.0-3.0 CARDIOLOGY Standard range: 2.0-3.0 High-intensity range: 2.5-3.5 Refer to indication-specific guidelines for appropriate target ranges for prosthetic heart valve replacement. Current interpretive data was last revised on 2019. Blood 03/18/2024 3:38 PM ASSISTANT THERAPY AIDE 03/18/2024 3:38 PM ASSISTANT THERAPY AIDE Basil Adhikari MD LAB BLOOD ORDERABLES Fin al Result Performing Organization Address [facility] Co de Phone Number [facility] [address] [facility] [place] [address] * Fibrinogen (03/18/2024 3:38 PM ASSISTANT THERAPY AIDE) Pathologist [facility] Fibrinogen 184 170 - 400 mg/dL Blood 03/18/2024 3:38 PM ASSISTANT THERAPY AIDE 03/18/2024 3:38 PM ASSISTANT THERAPY AIDE Basil Adhikari MD LAB BLOOD ORDERABLES Fin al Result Performing Organization Address [facility] Co de Phone Number [facility] [address] [place] [address] * (ABNORMAL) CBC without differential (03/18/2024 3:38 PM ASSISTANT THERAPY AIDE) [facility] WBC 14.2(H) 3.8 - 9.9 K/cumm Hgb 10.6(L) 13.0 - 17.5 g/dL [facility] Hct 30.7(L) 38.9 - 50.3 % [facility] Plt 108(L) 150 - 400 K/cumm [facility] MPV 9.5 9.1 - 12.3 fL [facility] RBC 3.46(L) 4.30 - 5.80 M/cumm [facility] MCV 88.7 81.3 - 96.4 fL [facility] MCH 30.6 27.1 - 33.3 pg [facility] MCHC 34.5 32.3 - 35.7 g/dL [facility] RDW CV 12.5 11.1 - 14.9 % [facility] RDW SD 40.1 35.7 - 48.1 fL [facility] NRBC abs 0.00 0.00 - 0.01 K/cumm [facility] Blood 03/18/2024 3:38 PM ASSISTANT THERAPY AIDE 03/18/2024 3:38 PM ASSISTANT THERAPY AIDE Basil Adhikari MD LAB BLOOD ORDERABLES Fin al Result Performing Organization Address [facility]/ZIP Co de Phone Number [facility] [address] Department [employer] [place], [place] [id number] * POC Activated Clotting Time, High Range (03/18/2024 3:35 PM ASSISTANT THERAPY AIDE) ACT 130 87 - 138 sec Blood 03/18/2024 3:35 PM ASSISTANT THERAPY AIDE 03/18/2024 3:35 PM ASSISTANT THERAPY AIDE us Basil Adhikari MD LAB BLOOD ORDERABLES Fin al Result [facility] [address] Department [place] [address] * (ABNORMAL) POC Blood Gas and Chemistries, Arterial - (03/18/2024 3:35 PM ASSISTANT THERAPY AIDE) [facility] pH, Art POC 7.37 7.35 - 7.45 pCO2, Art POC 42 35 - 45 mmHg [facility] pO2, Art POC 330(H) 80 - 108 mmHg [facility] Na, POC 130(L) 135 - 145 mmol/L [facility] K POC 4.6 3.3 - 4.9 mmol/L [facility] Comment: Interpretive Data This method is not able to assess for hemolysis, which may falsely increase potassium concentrations. If further testing is needed to evaluate this result, consider in-laboratory plasma potassium. Current Interpretive Data was last revised on 2021. Cl, POC 103 97 - 110 mmol/L [facility] Ionized Ca, POC 6.06(H) 4.50 - 5.10 mg/dL [facility] Glucose, POC 157 70 - 199 mg/dL [facility] Lactate, POC 1.0 0.0 - 2.0 mmol/L [facility] O2Hb, Art POC 96.9(H) 90.0 - 95.0 % [facility] Carboxhgb fract 1.0 0.0 - 2.9 % [facility] Methemoglobin 1.3 0.0 - 1.9 % [facility] HHb, POC 0.9 0.0 - 5.0 % [facility] SO2 (shayne) arterial 99(H) 90 - 95 % [facility] BE, art, POC -1.0 -2.0 - 2.0 mmol/L [facility] HCO3, Art POC 24 20 - 30 mmol/L [facility] Hct, POC 34.0(L) 38.9 - 50.3 % [facility] Total Hb, POC 11.2(L) 13.0 - 17.5 g/dL [facility] Blood 03/18/2024 3:35 PM ASSISTANT THERAPY AIDE 03/18/2024 3:35 PM ASSISTANT THERAPY AIDE us Basil Adhikari MD LAB POCT ORDERABLES - DE VICE Final Result [facility] [address] Department [place] [address] * (ABNORMAL) POC Blood Gas and Chemistries, Arterial - (03/18/2024 2:41 PM ASSISTANT THERAPY AIDE) pH, Art POC 7.33(L) 7.35 - 7.45 pCO2, Art POC 45 35 - 45 mmHg [facility] pO2, Art POC 345(H) 80 - 108 mmHg [facility] Na, POC 129(L) 135 - 145 mmol/L [facility] K POC 5.3(H) 3.3 - 4.9 mmol/L [facility] Comment: Interpretive Data This method is not able to assess for hemolysis, which may falsely increase potassium concentrations. If further testing is needed to evaluate this result, consider in-laboratory plasma potassium. Current Interpretive Data was last revised on 2021. Cl, POC 102 97 - 110 mmol/L [facility] Ionized Ca, POC 4.66 4.50 - 5.10 mg/dL [facility] Glucose, POC 153 70 - 199 mg/dL [facility] Lactate, POC 0.8 0.0 - 2.0 mmol/L [facility] O2Hb, Art POC 96.6(H) 90.0 - 95.0 % [facility] Carboxhgb fract 1.2 0.0 - 2.9 % [facility] Methemoglobin 1.4 0.0 - 1.9 % [facility] HHb, POC 0.8 0.0 - 5.0 % [facility] SO2 (shayne) arterial 99(H) 90 - 95 % [facility] BE, art, POC -2.3(L) -2.0 - 2.0 mmol/L [facility] HCO3, Art POC 23 20 - 30 mmol/L [facility] Hct, POC 32.0(L) 38.9 - 50.3 % [facility] Total Hb, POC 10.7(L) 13.0 - 17.5 g/dL [facility] Blood 03/18/2024 2:41 PM ASSISTANT THERAPY AIDE 03/18/2024 2:41 PM ASSISTANT THERAPY AIDE Basil Adhikari MD LAB POCT ORDERABLES - DE VICE Final Result Performing Organization Address [facility]/ZIP Co de Phone Number [facility] [address] [place] [address] * (ABNORMAL) POC Activated Clotting Time, High Range (03/18/2024 2:40 PM ASSISTANT THERAPY AIDE) ACT 474(H) 87 - 138 sec Blood 03/18/2024 2:40 PM ASSISTANT THERAPY AIDE 03/18/2024 2:40 PM ASSISTANT THERAPY AIDE Basil Adhikari MD LAB BLOOD ORDERABLES Fin al Result Performing Organization Address [facility]/ZIP Co de Phone Number [facility] [address] [employer] [place], [place] [id number] * (ABNORMAL) POC Blood Gas and Chemistries, Venous - (03/18/2024 2:30 PM ASSISTANT THERAPY AIDE) pH, Boyd POC 7.34 7.32 - 7.45 pCO2, boyd POC 47 40 - 50 mmHg [facility] pO2, boyd POC 52(H) 35 - 42 mmHg [facility] Na, POC 131(L) 135 - 145 mmol/L [facility] K POC 5.0(H) 3.3 - 4.9 mmol/L [facility] Comment: Interpretive Data This method is not able to assess for hemolysis, which may falsely increase potassium concentrations. If further testing is needed to evaluate this result, consider in-laboratory plasma potassium. Current Interpretive Data was last revised on 2021. Cl, POC 101 97 - 110 mmol/L [facility] Ionized Ca, POC 4.65 4.50 - 5.10 mg/dL [facility] Glucose, POC 130 70 - 199 mg/dL [facility] Lactate, POC 0.6 0.0 - 2.0 mmol/L [facility] O2Hb, Boyd POC 81.4(L) 90.0 - 95.0 % [facility] Carboxhgb fract 1.5 0.0 - 2.9 % [facility] Methemoglobin 1.1 0.0 - 1.9 % [facility] HHb, POC 16.0(H) 0.0 - 5.0 % [facility] O2 Sat, Boyd POC (Shayne) 84(H) 68 - 77 % [facility] Base excess, boyd POC -0.7 mmol/L [facility] HCO3, Boyd POC 24 20 - 30 mmol/L [facility] Hct, POC 33.0(L) 38.9 - 50.3 % [facility] Total Hb, POC 11.0(L) 13.0 - 17.5 g/dL [facility] Blood 03/18/2024 2:30 PM ASSISTANT THERAPY AIDE 03/18/2024 2:30 PM ASSISTANT THERAPY AIDE us Basil Ahdikari MD LAB POCT ORDERABLES - DE VICE Final Result [address] [facility] [place] [address] * Surgical pathology (03/18/2024 2:09 PM ASSISTANT THERAPY AIDE) Tissue (Aorta) 03/18/2024 2: 09 PM ASSISTANT THERAPY AIDE Comment:Placed in formalin a t end of case Narrative PATHOLOGY [facility] - 03/22/2024 11:52 AM ASSISTANT THERAPY AIDE [place] [address] [place], [place] [address] Tele: Josie Cárdenas MD - Extrusion Machine Operator Note to Patients: This report may contain [...] PATHOLOGY REPORT Patient Name: GIAN LEE Address: [address] [place] [address] Gender: M : 1940 (Age: 83) Service: Cardiothoracic Location: [place] [address], Hospital #: [id number] Patient [place] [facility] [place] Taken: 03/18/2024 Received 03/18/2024 Reported: 03/22/2024 Physician(s): Hallie Hernandez M.D. 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 Report [...] The vascular wall intact, and mildly hemorrhagic. Hand Dry Cleaner sections are submitted as follows: A1 - Hand Dry Cleaner sections, A2-A6 - Additional sections. [facility]/03/19/2024 14:38 DMS,DICK MICROSCOPIC DESCRIPTION: Microscopic examination [...] a non-neoplastic entity. Clerical Data Follows A; 36031, 45374, 41027(6) REPORT IMAGES AND/OR SCANNED DOCUMENTS ONLY VIEWABLE IN PDF FORMAT The immunohistochemical test(s) cited in this report, if any, was developed and its performance characteristics determined by [facility] Pathology Department. It has not been cleared or approved by the U.S. Food and Drug Administration. The FDA has determined that such clearance or approval is not necessary. This test is used for clinical purposes. It should not be regarded as investigational or for research. [facility] Laboratory is certified under the [...] part or completely in the following laboratories: [facility], [facility], [address] [place] [address]. Basil Adhikari MD LAB PATHOLOGY ORDERABLES Final Result Performing Organization Address [facility] Co de Phone Number PATHOLOGY [facility] Laboratory Receiving [address] [place], [place] [id number] * (ABNORMAL) POC Activated Clotting Time, High Range (03/18/2024 2:08 PM ASSISTANT THERAPY AIDE) ACT 627(H) 87 - 138 sec Blood 03/18/2024 2:08 PM ASSISTANT THERAPY AIDE 03/18/2024 2:08 PM ASSISTANT THERAPY AIDE Basil Adhikari MD LAB BLOOD ORDERABLES Fin al Result Performing Organization Address [facility]/ZIP Co de Phone Number [facility] [address] Department [place] [address] * (ABNORMAL) POC Blood Gas and Chemistries, Arterial - (03/18/2024 2:08 PM ASSISTANT THERAPY AIDE) pH, Art POC 7.35 7.35 - 7.45 pCO2, Art POC 44 35 - 45 mmHg [facility] pO2, Art POC 417(H) 80 - 108 mmHg [facility] Na, POC 129(L) 135 - 145 mmol/L [facility] K POC 5.7(H) 3.3 - 4.9 mmol/L [facility] Comment: Interpretive Data This method is not able to assess for hemolysis, which may falsely increase potassium concentrations. If further testing is needed to evaluate this result, consider in-laboratory plasma potassium. Current Interpretive Data was last revised on 2021. Cl, POC 103 97 - 110 mmol/L [facility] Ionized Ca, POC 4.68 4.50 - 5.10 mg/dL [facility] Glucose, POC 122 70 - 199 mg/dL [facility] Lactate, POC 0.5 0.0 - 2.0 mmol/L [facility] O2Hb, Art POC 97.5(H) 90.0 - 95.0 % [facility] Carboxhgb fract 1.0 0.0 - 2.9 % [facility] Methemoglobin 0.8 0.0 - 1.9 % [facility] HHb, POC 0.7 0.0 - 5.0 % [facility] SO2 (shayne) arterial 99(H) 90 - 95 % [facility] BE, art, POC -1.4 -2.0 - 2.0 mmol/L [facility] HCO3, Art POC 24 20 - 30 mmol/L [facility] Hct, POC 33.0(L) 38.9 - 50.3 % [facility] Total Hb, POC 11.0(L) 13.0 - 17.5 g/dL [facility] Blood 03/18/2024 2:08 PM ASSISTANT THERAPY AIDE 03/18/2024 2:08 PM ASSISTANT THERAPY AIDE us Basil Adhikari MD LAB POCT ORDERABLES - DE VICE Final Result [facility] [address] Department [place] [address] * (ABNORMAL) POC Blood Gas and Chemistries, Arterial - (03/18/2024 1:50 PM ASSISTANT THERAPY AIDE) pH, Art POC 7.39 7.35 - 7.45 pCO2, Art POC 38 35 - 45 mmHg [facility] pO2, Art POC 426(H) 80 - 108 mmHg [facility] Na, POC 128(L) 135 - 145 mmol/L [facility] K POC 4.4 3.3 - 4.9 mmol/L [facility] Comment: Interpretive Data This method is not able to assess for hemolysis, which may falsely increase potassium concentrations. If further testing is needed to evaluate this result, consider in-laboratory plasma potassium. Current Interpretive Data was last revised on 2021. Cl, POC 101 97 - 110 mmol/L [facility] Ionized Ca, POC 4.82 4.50 - 5.10 mg/dL [facility] Glucose, POC 113 70 - 199 mg/dL [facility] Lactate, POC 0.5 0.0 - 2.0 mmol/L [facility] O2Hb, Art POC 97.1(H) 90.0 - 95.0 % [facility] Carboxhgb fract 1.4 0.0 - 2.9 % [facility] Methemoglobin 1.2 0.0 - 1.9 % [facility] HHb, POC 0.3 0.0 - 5.0 % [facility] SO2 (shayne) arterial 100(H) 90 - 95 % [facility] BE, art, POC -1.7 -2.0 - 2.0 mmol/L [facility] HCO3, Art POC 24 20 - 30 mmol/L [facility] Hct, POC 39.0 38.9 - 50.3 % [facility] Total Hb, POC 12.9(L) 13.0 - 17.5 g/dL [facility] Blood 03/18/2024 1:50 PM ASSISTANT THERAPY AIDE 03/18/2024 1:50 PM ASSISTANT THERAPY AIDE us Basil Adhikari MD LAB POCT ORDERABLES - DE VICE Final Result Performing Organization Address [facility]/ZIP Co de Phone Number [facility] [address] [place] [address] * (ABNORMAL) POC Activated Clotting Time, High Range (03/18/2024 1:49 PM ASSISTANT THERAPY AIDE) ACT 608(H) 87 - 138 sec Blood 03/18/2024 1:49 PM ASSISTANT THERAPY AIDE 03/18/2024 1:49 PM ASSISTANT THERAPY AIDE Basil Adhikari MD LAB BLOOD ORDERABLES Fin al Result Performing Organization Address [facility] Co de Phone Number [facility] [address] [place] [address] * BW AN SHEATH INTRODUCER PERFORMABLE, PULMONARY ARTERY CATH, MD AN PROCEDURE PLACEHOLDER (:41 PM ASSISTANT THERAPY AIDE) Narrative Gamal Asher MD PhD - 03/18/2024 1:41 PM ASSISTANT THERAPY AIDE Gamal Asher MD PhD 03/18/2024 1:41 PM [...] PhD ANESTHESIA ORDERABLES Fi nal Result * MD AN CENTRAL LINE QUADRUPLE LUMEN, MD AN PROCEDURE PLACEHOLDER (03/18/2024 1:40 PM ASSISTANT THERAPY AIDE) Gamal Robbins MD PhD - 03/18/2024 1:40 PM ASSISTANT THERAPY AIDE Gamal Asher MD PhD 03/18/2024 1:41 PM [...] PhD ANESTHESIA ORDERABLES Fi nal Result * MD AN PROCEDURE PLACEHOLDER (03/18/2024 1:39 PM ASSISTANT THERAPY AIDE) Gamal Robbins MD PhD - 03/18/2024 1:39 PM ASSISTANT THERAPY AIDE Gamal Asher MD PhD 03/18/2024 1:39 PM [...] PhD ANESTHESIA ORDERABLES Fi nal Result * MD AN PROCEDURE PLACEHOLDER (03/18/2024 1:38 PM ASSISTANT THERAPY AIDE) Gamal Robbins MD PhD - 03/18/2024 1:38 PM ASSISTANT THERAPY AIDE Gamal Asher MD PhD 03/18/2024 1:38 PM [...] PhD ANESTHESIA ORDERABLES Fi nal Result * MD AN ELECTIVE ENDOTRACHEAL AIRWAY, MD AN PROCEDURE PLACEHOLDER (03/18/2024 1:37 PM ASSISTANT THERAPY AIDE) Gamal Robbins MD PhD - 03/18/2024 1:37 PM ASSISTANT THERAPY AIDE Gamal Asher MD PhD 03/18/2024 1:37 PM [...] PhD ANESTHESIA ORDERABLES Fi nal Result * MD AN PROCEDURE PLACEHOLDER (03/18/2024 1:29 PM ASSISTANT THERAPY AIDE) Anatomical Region Laterality Modality Other Narrative 03/18/2024 1:29 PM ASSISTANT THERAPY AIDE Derek Marin MD PhD 03/18/2024 4:18 PM [...] code: LIDIA placement and diagnostic exam, non-congenital (10077) ICD code(s) for medical necessity: I71.2 - [...] inferior: normal 16- Apical septal: normal 17- [place]: normal Valves: Aortic Valve: Annulus: dilated Leaflet [...] Clotting Time, High Range (03/18/2024 1:11 PM ASSISTANT THERAPY AIDE) ACT 111 87 - 138 sec Blood 03/18/2024 1:11 PM ASSISTANT THERAPY AIDE 03/18/2024 1:11 PM ASSISTANT THERAPY AIDE Basil Adhikari MD LAB BLOOD ORDERABLES Fin al Result Performing Organization Address City/[facility]/ZIP Co de Phone Number [facility] [address] [place] [address] * LIDIA Add-On For OR (03/18/2024 12:05 PM ASSISTANT THERAPY AIDE) BSA 1.88 m2 CONS SCIMAGE Narrative CONS SCIMAGE - 03/18/2024 12:05 PM ASSISTANT THERAPY AIDE Procedure Auto Finalized by Rule: BW CV LIDIA DURING CASE OR Please see the Anesthesiologist's Procedure Note for the results. Gamal Asher MD PhD CV ECHO PROCEDURES Final Result CONS SCIMAGE * Check Sample (03/18/2024 9:54 AM ASSISTANT THERAPY AIDE) ABO Rh O Positive MBC HCLL OTHER 03/18/2024 9:54 AM ASSISTANT THERAPY AIDE 03/18/2024 10:20 AM ASSISTANT THERAPY AIDE Basil Adhikari MD LAB BLOOD ORDERABLES Fin al Result [facility] [address] [place] [address] [facility] * ECG 12 lead (03/18/2024 9:34 AM ASSISTANT THERAPY AIDE) 03/18/2024 9:34 AM ASSISTANT THERAPY AIDE Narrative [facility] - 03/18/2024 10:15 AM ASSISTANT THERAPY AIDE Vent Rate: 46 bpm RR Interval: 1277 msec MD Interval: 115 msec QRS Duration: 84 msec QT Interval: 430 msec QTC Interval: 391 msec P-R-T [place]: 56 - -19 - -14 degrees IMPRESSION: SINUS BRADYCARDIA WITH SINUS ARRHYTHMIA WITH SHORT MD INTERVAL POSSIBLE ANTERIOR MYOCARDIAL INFARCTION , PROBABLY OLD BORDERLINE ECG Electronically Signed By: Klaus Humphrey MD PhD us Ev Freed WHEEL MILL OPERATOR ECG ORDERABLES Final Res ult Performing Organization Address [facility] Co de Phone Number [facility] * Prepare RBC: 4 Units (03/18/2024 9:12 AM ASSISTANT THERAPY AIDE) Product code [id number] [facility] Unit Number [id number] 8-8 [facility] Product Blood Type OPOS [facility] Dispense Status RETURNED [facility] Product code [id number] Unit Number [id number] 8-R [facility] Product Blood Type OPOS [facility] Dispense Status RETURNED [facility] Product code [id number] [facility] Unit Number [id number] 7-W [facility] Product Blood Type OPOS [facility] Dispense Status RETURNED [facility] Product code [id number] [facility] Unit Number [id number] 0-U [facility] Product Blood Type OPOS [facility] Dispense Status RETURNED [facility] Blood 03/18/2024 9:12 AM ASSISTANT THERAPY AIDE Narrative [facility] - 03/22/2024 7:46 AM ASSISTANT THERAPY AIDE Specify Procedure:->tissue aortic root replacement Are special requirements needed? (All products are leukoreduced and CMV- safe)- >No Date required:-[id number] [facility] [id number] Reasons:-Hold for procedure (specify procedure)} vE Freed NP BLOOD BANK PRODUCT ORDERA BLES Final Result [facility] [address] Department [place] [address] * Differential, auto (03/15/2024 12:29 PM ASSISTANT THERAPY AIDE) Neutrophil abs 2.5 1.5 - 6.5 K/cumm Imm gran abs 0.0 0.0 - 0.1 K/cumm [facility] Lymphocyte abs 1.1 0.8 - 3.3 K/cumm [facility] Monocyte abs 0.6 0.2 - 0.8 K/cumm [facility] Eosinophil abs 0.2 0.0 - 0.5 K/cumm [facility] Basophil abs 0.0 0.0 - 0.1 K/cumm [facility] Neutrophil pct 56.5 % [facility] Comment: Interpretive Data Percent cell count reference ranges are not reported, since discordance with absolute values may lead to misinterpretation of CBC data. Current Interpretive Data was last revised on 2017. Imm gran pct 0.5 % [facility] Comment: Interpretive Data Percent cell count reference ranges are not reported, since discordance with absolute values may lead to misinterpretation of CBC data. Current Interpretive Data was last revised on 2017. Lymphocyte pct 23.8 % [facility] Comment: Interpretive Data Percent cell count reference ranges are not reported, since discordance with absolute values may lead to misinterpretation of CBC data. Current Interpretive Data was last revised on 2017. Monocyte pct 14.5 % [facility] Comment: Interpretive Data Percent cell count reference ranges are not reported, since discordance with absolute values may lead to misinterpretation of CBC data. Current Interpretive Data was last revised on 2017. Eosinophil pct 3.8 % [facility] Comment: Interpretive Data Percent cell count reference ranges are not reported, since discordance with absolute values may lead to misinterpretation of CBC data. Current Interpretive Data was last revised on 2017. Basophil pct 0.9 % [facility] Comment: Interpretive Data Percent cell count reference ranges are not reported, since discordance with absolute values may lead to misinterpretation of CBC data. Current Interpretive Data was last revised on 2017. Blood 03/15/2024 12:2 9 PM ASSISTANT THERAPY AIDE 03/15/2024 12:29 PM ASSISTANT THERAPY AIDE Basil Adhikari MD LAB BLOOD ORDERABLES Fin al Result Performing Organization Address City/[facility]/ZIP Co de Phone Number [facility] [address] [place] [address] * CBC with auto differential (03/15/2024 12:29 PM ASSISTANT THERAPY AIDE) WBC 4.4 3.8 - 9.9 K/cumm Hgb 14.5 13.0 - 17.5 g/dL [facility] Hct 42.9 38.9 - 50.3 % [facility] Plt 156 150 - 400 K/cumm [facility] MPV 9.9 9.1 - 12.3 fL [facility] RBC 4.82 4.30 - 5.80 M/cumm [facility] MCV 89.0 81.3 - 96.4 fL [facility] MCH 30.1 27.1 - 33.3 pg [facility] MCHC 33.8 32.3 - 35.7 g/dL [facility] RDW CV 12.4 11.1 - 14.9 % [facility] RDW SD 40.8 35.7 - 48.1 fL [facility] NRBC abs 0.00 0.00 - 0.01 K/cumm [facility] Blood 03/15/2024 12:2 9 PM ASSISTANT THERAPY AIDE 03/15/2024 12:29 PM ASSISTANT THERAPY AIDE Basil Adhikari MD LAB BLOOD ORDERABLES Fin al Result Performing Organization Address City/[facility]/ZIP Co de Phone Number [facility] [address] [place] [address] * Type and screen (03/15/2024 12:29 PM ASSISTANT THERAPY AIDE) [facility] Alex, indirect Negative ABO Rh O Positive [facility] Blood 03/15/2024 12:2 9 PM ASSISTANT THERAPY AIDE 03/15/2024 12:45 PM ASSISTANT THERAPY AIDE Narrative [facility] - 03/15/2024 1:31 PM ASSISTANT THERAPY AIDE No blood transfusions last 90 days Surgery 03/18/24 No blood transfusions last 90 days Surgery 03/18/24 Has the patient had Daratumumab or Isatuximab in the past 6 months?->No Basil Adhikari MD LAB BLOOD BANK TEST ORDE RABLES Final Result Performing Organization Address [facility] Co de Phone Number [facility] [address] [place] [address] * Hemoglobin A1c (03/15/2024 12:29 PM ASSISTANT THERAPY AIDE) [facility] Hgb A1C 5.2 4.0 - 5.6 % Estimated Average Glucose 103 mg/dL [facility] Comment: The ADA recommends reporting an estimated Average Glucose (eAG) with all Hemoglobin A1c results using the equation derived from a study of 507 normal and diabetic adults. Minority populations were underrepresented and children were not included. (Diabetes Care 31:4695-3311, 2008). The eAG is not equivalent to a fasting glucose. Blood 03/15/2024 12:2 9 PM ASSISTANT THERAPY AIDE 03/15/2024 12:29 PM ASSISTANT THERAPY AIDE Basil Adhikari MD LAB BLOOD ORDERABLES Fin al Result [facility] [address] [place] [address] * eGFR (03/15/2024 12:28 PM ASSISTANT THERAPY AIDE) [facility] eGFR 65 >=60 mL/min/1. 73 m2 Comment: [...] reviewed 2021. Blood 03/15/2024 12:2 8 PM ASSISTANT THERAPY AIDE 03/15/2024 12:28 PM ASSISTANT THERAPY AIDE us Basil Adhikari MD LAB BLOOD ORDERABLES Fin al Result [facility] [address] Department [place] [address] * (ABNORMAL) Comprehensive metabolic panel (03/15/2024 12:28 PM ASSISTANT THERAPY AIDE) Sodium 134(L) 135 - 145 mmol/L Potassium, pl 4.7 3.3 - 4.9 mmol/L [facility] Chloride 98 97 - 110 mmol/L [facility] CO2 25 22 - 32 mmol/L [facility] Anion gap 11 2 - 15 mmol/L [facility] BUN 12 6 - 25 mg/dL [facility] Creatinine 1.11 0.80 - 1.30 mg/dL [facility] Glucose 82 70 - 199 mg/dL [facility] Comment: Interpretive Data Fasting glucose >/= 126 [...] 2022. Calcium 9.3 8.5 - 10.3 mg/dL [facility] Bilirubin, total 0.8 0.1 - 1.2 mg/dL [facility] Protein, pl 6.8 6.5 - 8.5 g/dL [facility] Albumin 4.5 3.5 - 5.0 g/dL [facility] Alk phos 82 40 - 130 Units/L [facility] ALT 26 7 - 55 Units/L [facility] AST 39 10 - 50 Units/L [facility] Blood 03/15/2024 12:2 8 PM ASSISTANT THERAPY AIDE 03/15/2024 12:28 PM ASSISTANT THERAPY AIDE us Basil Adhikari MD LAB BLOOD ORDERABLES Fin al Result [facility] [address] [place] [address] from Last 3 Months Insurance [facility] MEDIC[facility] [employer] Advance Directives For more information, please contact: [phone] * Full Code (Latest Code Status on [...] 8:19 AM 09/09/2019 6:53 PM Care Teams Office Worker Relationship Specialty Start Date End Date Martinez Pace MD [address] [address] PCP - General 05/02/16 Dion Abraham MD [address] [place] [address] Referring Physician Cardiology 02/18/24 Basil Adhikari MD [address] [facility] [address] [place] [address] Consulting Physician Cardiothoracic Surgery 02/19/24
--- OUTSIDE RECORDS SUMMARY | 2024-05-10 10:38 | XMS_ITS | Clinical Summary ---
Author Organization [facility] Address [address] [place]: Epic Prelude ADT ZURI BAZAN [place] [address] Care Team Providers Care Oracle E Business Developer Name Role Phone Unavailable Primary Care Provider [...] Paste Use a pea-sized amount once daily. [place] for 2 minutes, spit excess. No rinsing, [...] day. 14 Tablet 1 2 5:00 PM SLEEP LAB TECHNOLOGIST 01/25/20 22 Active Sodium Fluoride (PreviDent 5000 Booster Plus) 1.1 % Paste USE A PEA SIZE AMOUNT TO BRUSH FOR 2 MINUTES THEN SPIT IT OUT. NO EATING, DRINKING OR RINSING FOR 30 MINUTES AFTER BRUSHING. 100 mL 2 1:28 PM SLEEP LAB TECHNOLOGIST 02/15/20 22 Active benzonatate (TESSALON) 100 mg [...] at bedtime 45 Tablet 3 2:27 PM SLEEP LAB TECHNOLOGIST 03/31/19 23 Active mirtazapine (REMERON) 15 mg tablet Take 1.5 Tablets (22.5 mg) by mouth daily at bedtime. 45 Tablet 4 3 4:01 PM CDT 04/26/19 23 Active rosuvastatin (Crestor) 10 mg tablet Take 1 Tablet (10 mg) by mouth daily. 90 Tablet 3 4 5:07 PM SLEEP LAB TECHNOLOGIST 07/11/19 23 Active cyanocobalamin , vitamin B-12, [...] bedtime 45 Tablet 5 4 11:21 AM SLEEP LAB TECHNOLOGIST 12/11/19 23 Active Sodium Fluoride (PreviDent 5000 Booster Plus) 1.1 % Paste [place] with pea-sized amount once daily. [place] for 2 minutes and spit out excess. [...] for congestion. 30 Capsule 4 12:26 PM SLEEP LAB TECHNOLOGIST 05/07/19 24 Active levothyroxine 75 mcg tablet Take 1 Tablet (75 mcg) by mouth daily. 90 Tablet 3 4 1:18 PM SLEEP LAB TECHNOLOGIST 05/15/19 24 Active sodium bicarbonate 650 mg tablet Take 1 tablet by mouth twice a day 60 Tablet 4 2:28 PM SLEEP LAB TECHNOLOGIST 05/21/19 24 Active busPIRone (BUSPAR) 5 mg [...] daily. 100 Tablet 3 4 1:18 PM SLEEP LAB TECHNOLOGIST 07/25/19 24 Active tamsulosin (FLOMAX) 0.4 mg [...] bedtime. 30 Tablet 5 4 4:49 PM SLEEP LAB TECHNOLOGIST 10/14/19 24 Active peg 3350-electroly kajal (GOLYTELY) [...] daily. 30 Tablet 3 4 2:05 PM SLEEP LAB TECHNOLOGIST 12/09/19 24 Active sacubitriL-quinn sartan (Entresto) 24-26 mg Tablet TAKE 1 TABLET BY MOUTH TWICE A DAY 180 Tablet 3 4 4:49 PM SLEEP LAB TECHNOLOGIST 01/14/20 24 Active Sodium Fluoride 1.1 % Paste Apply to the teeth daily at nightime or as directed 100 mL 1 4 3:07 PM SLEEP LAB TECHNOLOGIST 02/03/20 24 Active rosuvastatin (CRESTOR) 10 mg tablet Take 1 Tablet (10 mg) by mouth daily. 90 Tablet 2 02/06/20 24 Active tadalafiL (CIALIS) 20 mg tablet Take 1 tablet by mouth as needed 30 minutes before sexual activity. Do not use more than 1 dose in 24 hours. 10 Tablet 3 4 2:35 PM SLEEP LAB TECHNOLOGIST 02/18/20 24 Active rivaroxaban (Xarelto) 10 mg Tablet Take 1 Tablet (10 mg) by mouth daily. 30 Tablet 4 2:05 PM SLEEP LAB TECHNOLOGIST 03/04/20 24 Active busPIRone (BUSPAR) 5 mg tablet Take 1 Tablet (5 mg) by mouth 2 times daily. 180 Tablet 1 03/08/20 24 Active mirtazapine (REMERON) 15 mg tablet Take 1.5 Tablets (22.5 mg) by mouth daily at bedtime. 135 Tablet 1 5 2:57 PM SLEEP LAB TECHNOLOGIST 03/08/20 24 Active amiodarone (CORDARONE) 100 mg Tablet Take 1 Tablet (100 mg) by mouth daily. 30 Tablet 1 5 2:11 PM SLEEP LAB TECHNOLOGIST 04/20/19 25 Active apixaban (Eliquis) 5 mg tablet Administer 1 tablet (5 mg total) per feeding tube every 12 (twelve) hours 60 Tablet 5 2:11 PM SLEEP LAB TECHNOLOGIST 04/20/19 25 Active levothyroxine 88 mcg tablet Take 1 tablet (88 mcg total) by mouth in the check out clerk before breakfast 30 Tablet 5 2:11 PM SLEEP LAB TECHNOLOGIST 04/20/19 25 Active midodrine (PROAMATINE) 5 mg tablet Take 1 tablet (5 mg total) by mouth 3 (three) times a day before meals 90 Tablet 5 2:11 PM SLEEP LAB TECHNOLOGIST 04/20/19 25 Active rosuvastatin (CRESTOR) 20 mg tablet Take 1 Tablet (20 mg) by mouth daily. 30 Tablet 5 2:11 PM SLEEP LAB TECHNOLOGIST 04/20/19 25 Active Sodium Chloride 1,000 mg Tablet, Soluble Take 1 tablet (1 g total) by mouth 2 (two) times a day 60 Tablet 5 2:11 PM SLEEP LAB TECHNOLOGIST 04/20/19 25 Active amiodarone (CORDARONE) 200 mg tablet Give 1/2 tablet via feeding tube daily 30 Tablet 04/29/19 25 Active aspirin (THADDEUS CHEWABLE) 81 mg Tablet, Chewable Give 1 tablet via feeding tube daily 30 Tablet 04/29/19 25 Active busPIRone (BUSPAR) 10 mg tablet Give 1/2 tablet (5 mg) via feeding tube twice daily 60 Tablet 5 2:11 PM SLEEP LAB TECHNOLOGIST 04/29/19 25 Active Sodium Chloride 1,000 mg [...] 6 hours 60 Tablet 5 2:11 PM SLEEP LAB TECHNOLOGIST 04/29/19 25 Active oxyBUTYnin (DITROPAN) 5 mg tablet Give 1 tablet via feeding tube daily 30 Tablet 5 2:11 PM SLEEP LAB TECHNOLOGIST 04/29/19 25 Active mirtazapine (REMERON) 15 mg [...] Discard remainder. 100 mL 5 5:58 PM SLEEP LAB TECHNOLOGIST 05/05/19 25 025 Active doxycycline monohydrate (VIBRAMYCIN) 25 mg/5 mL suspension Give 20 mL (100 mg) via feeding tube 2 times daily for 4 days. DISCARD REMAINING MEDICATION. 180 mL 5 5:05 PM SLEEP LAB TECHNOLOGIST 05/05/19 25 025 Active vibegron (Gemtesa) 75 mg Tablet Take 1 Tablet by mouth daily. 30 Tablet 5 5 3:48 PM SLEEP LAB TECHNOLOGIST 05/06/19 25 Active gabapentin (NEURONTIN) 100 mg capsule Give 1 capsule via feeding tube daily 30 Capsule 04/29/19 25 025 Discontinued Immunizations Immunization Administration Dates Next Due ([facility])(12 YR UP) COVID- 19 VACCINE, MRNA, SPIKE PROTEIN, LNP, OFELIA(PF) 30 MCG/0.3 ML IM SUSP 12/01/2023 (PREVNAR 20)(6 WKS UP) PNEUM OCOCCAL CONJUGATE VACCINE 20-VALENT (PCV20), POLYSACCHARIDE SCQ471 CONJUGATE, ADJUVANT 0.5 ML (PF) IM 12/01/2023 [...] VACCINE Completed 12/22/2023, 12/25/2021 Insurance RX [facility] [employer], [employer]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
--- OUTSIDE RECORDS SUMMARY | 2024-05-10 10:38 | XMS_ITS ---
Author Organization [facility] [employer] Address [address] [place] [address] Care Team Providers Care Cigarette Package Examiner Name Role Phone Carli Figueroa Unavailable [phone] REASON FOR VISIT Refills Medications Medication SIG (Take, Route, Fr equency, Duration) Notes Start Date End Date Status Mirtazapine 15 MG 1.5 tabs at bedtime Oral daily for 30 days Active Social History Sex Assigned At : Social History Observation Description Sex Assigned At Male Encounters Encounter Location Date Provider Diagnosis [facility] [address] [place] [address] 01/28/2024 Carli Figueroa Major depressive disorder, recurrent, [...] PM, [address], [place], [address], Progress Notes * GIAN LEEDOB:1940 (83 yo M)Acc No.[id number]:01/28/2024 Patient: Adan INIGUEZGIAN :1940 A ge:83 Y S ex:Male Address:[address] [place], [address] * Refills Refill Mirtazapine Tablet, 15 MG, [...] * true * Date: Generated for Candi chowdhury/Jeffrey/eTblessingsmitting on: 0 05/10/2024 10:37 AM [facility]
--- OUTSIDE RECORDS SUMMARY | 2024-05-10 10:38 | XMS_ITS | Clinical Summary ---
Author Organization [facility] Address [address] [place] [address] Care Team Providers Care Microsoft Net Developer Name Role Phone Martinez Pace MD Primary Care Provider Dion Abraham MD Unavailable [phone] Basil Adhikari MD Unavailable [phone] Allergies No known active allergies Medications PreviDent [...] 1 tablet (88 mcg total) by mouth business system consultant before breakfast 30 tablet 5 Active midodrine [...] (11/24/2018): Added automatically from request for surgery [id number] Adenomatous polyp of cecum 06/18/2018 Overview (06/18/2018): Added automatically from request for surgery [id number] intermediate frame tender current use of anticoagulant therapy 0 11/07/2016 Basal cell carcinoma (BCC) of antihelix of ear 0 04/16/2016 Ascending aortic aneurysm 09/05/2015 Deep vein thrombosis (DVT) (CMS/HCC) 06/22/2015 Pulmonary embolism 06/22/2015 Thyroid disease Neuropathy Depression Overview (07/18/2017): Depression GARCÍA on CPAP OA (osteoarthritis) History of pulmonary embolus (PE) Encounters Date Type Department Care Team Description 04/16/2024 9:04 AM TECHNICAL SUPPORT SPECIALIST Anesthesia Event [facility] GI [facility] [address] [place] [phone] Sara Schwartz MD Shelley, Joshua Michael, CRNA 04/16/2024 9:00 AM TECHNICAL SUPPORT SPECIALIST - 04/16/2024 9:45 AM TECHNICAL SUPPORT SPECIALIST Surgery [facility] [address] [place] [phone] Roderick Bedolla MD PERCUTANEOUS ENDOSCOPIC GASTROSTOMY 04/09/2024 Orders Only Cardiovascular and Thoracic Surgery [address] [facility] [address] [place] [phone] Ev Freed NP Aneurysm of ascending aorta without rupture (HCC) (Primary Dx); Iliac aneurysm (CMS/HCC) (HCC); Aortic root aneurysm; Other pulmonary embolism without acute cor pulmonale, unspecified chronicity (HCC) 04/03/2024 9:45 AM TECHNICAL SUPPORT SPECIALIST - 04/20/2024 3:00 PM TECHNICAL SUPPORT SPECIALIST Hospital Encounter [facility] [phone] Pedro Senior MD Martin, Robert S., MD [...] to an Rehab facility 04/03/2024 Orders Only [facility] Hospitalists [address] [place] [phone] Zoran Leyva DO 03/30/2024 Orders Only Cardiovascular and Thoracic Surgery [address] [facility] [address] [place] [address] Candis Chaparro, RN Aneurysm of ascending aorta without rupture (HCC) (Primary Dx); Iliac artery aneurysm (CMS/HCC) (HCC) 03/29/2024 Telephone Cardiovascular and Thoracic Surgery [address] [facility] [address] [place] [address] Basil Adhikari MD 03/22/2024 3:00 PM TECHNICAL SUPPORT SPECIALIST - 03/22/2024 5:15 PM TECHNICAL SUPPORT SPECIALIST Surgery [facility] Heart Center [address] [place] [phone] Basil Adhikari MD Left internal iliac plug, left iliac aneurysm repair [24643 (CPT )] 03/22/2024 2:54 PM TECHNICAL SUPPORT SPECIALIST Anesthesia Event [facility] [address] [place] [phone] Gamal Asher MD PhD Deyvi Urrutia MD 03/18/2024 1:30 PM TECHNICAL SUPPORT SPECIALIST - 03/18/2024 7:50 PM TECHNICAL SUPPORT SPECIALIST Surgery [facility] Operating Room [address] [place] [phone] Basil Adhikari MD Mini ascending aortic root replacement 03/18/2024 12:47 PM TECHNICAL SUPPORT SPECIALIST Anesthesia Event [facility] Operating Room [address] [place] [phone] Derek Marin MD PhD Gamal Asher MD PhD 03/18/2024 12:10 PM TECHNICAL SUPPORT SPECIALIST Ancillary Procedure [facility] Operating Room [address] [place] [phone] 03/18/2024 9:05 AM TECHNICAL SUPPORT SPECIALIST - 03/27/2024 3:13 PM TECHNICAL SUPPORT SPECIALIST Hospital Encounter [address] [phone] Basil Adhikari MD Iliac aneurysm (CMS/HCC) (HCC) (Primary Dx); Aortic root aneurysm; S/P AVR Discharge Disposition: Discharge to an Rehab facility 03/15/2024 11:50 AM TECHNICAL SUPPORT SPECIALIST Lab [facility] Outpatient Lab [address] [place] [phone] Aneurysm of ascending aorta without rupture (HCC); Pre-op evaluation 03/15/2024 10:00 AM TECHNICAL SUPPORT SPECIALIST Office Visit Cardiovascular and Thoracic Surgery [address] [place] [phone] Basil Adhikari MD Pre-op evaluation (Primary Dx); Aneurysm of ascending aorta without rupture (HCC) 03/11/2024 Telephone Cardiovascular and Thoracic Surgery [address] [place] [phone] Basil Adhikari MD 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 Never 04/06/2024 Do you belong to any clubs o r organizations such as scientology groups, unions, fraternal or athletic groups, or [...] any time in the past [address] [facility], were you homeless or living in a fpc (including now)? No 04/06/2024 Personal Safety Answer Date Recorded Have you ever been in or are you currently in a harmful physical or emotional relationship or is someone making you feel afraid or unsafe? Denies 04/03/2024 Sex and Gender Information Value Date Recorded Sex Assigned at Not on file Legal Sex Male 12:56 AM TECHNICAL SUPPORT SPECIALIST Gender Identity Not on file Sexual Orientation Straight 10/21/2019 9: 52 AM CDT Obstetrics History Last Filed Vital Signs Vital Sign Reading Time Taken Comments Blood Pressure 96/54 04/20/2024 12:33 PM TECHNICAL SUPPORT SPECIALIST Pulse 63 04/20/2024 12:33 PM TECHNICAL SUPPORT SPECIALIST Temperature 36.1 C (97 F) 04/20/2024 12:33 PM TECHNICAL SUPPORT SPECIALIST Respiratory Rate 16 04/20/2024 12:33 PM TECHNICAL SUPPORT SPECIALIST Oxygen Saturation 98% 04/20/2024 12:33 PM TECHNICAL SUPPORT SPECIALIST Inhaled Oxygen Concentration - - Weight 66.9 kg (147 lb 7.8 oz) 04/19/2024 8:12 A M TECHNICAL SUPPORT SPECIALIST Height 172.7 cm (5' 8 ) 04/16/2024 8:23 AM TECHNICAL SUPPORT SPECIALIST Body Mass Index 22.43 04/16/2024 8:23 AM TECHNICAL SUPPORT SPECIALIST Plan of Treatment Health Maintenance Due Date [...] , 12/14/2012 Medical Devices Implanted Type Area Refrigerating Machine Operator Device Identifier Shelf Expiration Date Model / Serial / Lot Leyva Lifesciences Konect Resilia Aortic Valved Conduit 27mm [id number] - [id number] - [id number] Implanted:Qty: 1 on 03/18/2024 by Basil Adhikari MD at [facility] Prosthetic Valve N/A: Aortic Valve Leyva Lif[employer]iences 01/06/2027 [id number] 7 / [id number] / Teleflex [employer] Inc 18f Manta Vascular Closure Device 2114 S0 - [id number] Implanted:Qty: 1 on 03/22/2024 by Basil Adhikari MD at [facility] Vascular Closure Device Teleflex [employer] Inc 01/06/20252114 / 0 / [id number] Cement Bone Cmw 2 20 Gm Fast Set Sterile - [id number] Implanted:Qty: 1 on 2017 by Brennon Davis MD at [facility] Right: Shoulder Depuy Orthopaed[employer] Inc 10/15/2019 [id number] 0 / / [id number] Component Glenoid Comprehensive Regenerex Titanium Clay Porous Shoulder Modular Hybrid Post - [id number] Implanted:Qty: 1 on 2017 by Brennon Davis MD at [facility] Right: Shoulder Kavita [employer] Inc [id number] 01/21/2027 PT-1139 50 / / [id number] Component Glenoid Comprehensive Hybrid Large H4 Mm Shoulder Base Modular - [id number] Implanted:Qty: 1 on 2017 by Brennon Davis MD at [facility] Right: Shoulder [employer]av[employer] [id number] 03/23/2022 [id number] / / [id number] Stem Humeral Comprehensive Porous Mini L83 Mm Od15 Mm Shoulder Reverse System - [id number] Implanted:Qty: 1 on 2017 by Brennon Davis MD at [facility] Right: Shoulder [employer]av[employer] Inc [id number] 04/10/2027 [id number] / / [id number] Head Humeral Bio-Modular [place] 4 Mm Offset H22 Mm Od54 Mm Shoulder Sterile - [id number] Implanted:Qty: 1 on 2017 by Brennon Davis MD at [facility] Right: Shoulder [employer]avita [employer] Inc 08/16/2019 [id number] / / [id number] Cryolife Inc Graft Biological Cardiovascular Photofix 6x8cm Acellular Dermis Pfp 6x8 - [id number] Implanted:Qty: 1 on 03/18/2024 by Basil Adhikari MD at [facility] N/A: Aorta Cryolife Inc 10/24/2025 PFP 6X8 / / [id number] Arthrex Inc Device Closure Tigertape Sternal Cerclage Blunt Needle Ar-7289t - [id number] Implanted:Qty: 1 on 03/18/2024 by Basil Adhikari MD at [facility] N/A: Sternum Arthrex Inc 12/14/2028 AR-7289 T / / [id number] Arthrex Inc Device Closure Tigertape Sternal Cerclage Blunt Needle Ar-7289t - [id number] Implanted:Qty: 1 on 03/18/2024 by Basil Adhikari MD at [facility] N/A: Sternum Arthrex Inc 12/14/2028 AR-7289 T / / [id number] 2 Estrada Vascular Plug Occluder Cvasc Embl Self Expanding Amplatzer [id number] Nitinol 9-Avp2-014 - S0 - [id number] Implanted:Qty: 1 on 03/22/2024 by Basil Adhikari MD at [facility] Left: Internal Iliac (Hypogastr ic) Artery Estrada Vascular [id number] 05/14/2025 9-AVP2- 014 / 0 / [id number] [employer]l [employer] Excluder 18mm 14.5-16.5mm 11.5cm Stent Abrasion Resistant [id number] - [id number] - [id number] Implanted:Qty: 1 on 03/22/2024 by Basil Adhikari MD at [facility] Left: External Iliac Artery Wl [employer] [id number] 11/17/2026 [id number] 00 / [id number] / Wl [employer] Stent Graft Thoracic Conformable Tag [id number] - S0 - [id number] Implanted:Qty: 1 on 03/22/2024 by Basil Adhikari MD at [facility] Left: External Iliac Artery Wl [employer] [id number] 08/14/2026 [id number] 10 / 0 / Amplatzer Grid Casting Machine Operator Helper Lisa Amplatzer 14mm 100cm 8mm 1 Layer Wire Mesh 1 Lobe Design Optimal 9-Plug-014 - S0 - [id number] Implanted:Qty: 1 on 03/22/2024 by Basil Adhikari MD at [facility] Left: Internal Iliac (Hypogastr ic) Artery Amplatzer Grid Casting Machine Operator Helper Lisa 03/16/2028 9-PLUG- 014 / 0 / [id number] Procedures Procedure Name Priority Date/Time Associated Diagnosis Comments EGFR Routine 04/20/2024 12:20 AM TECHNICAL SUPPORT SPECIALIST MAGNESIUM Routine 04/20/2024 12:20 AM TECHNICAL SUPPORT SPECIALIST RENAL FUNCTION PANEL Routine 04/20/2024 12:20 AM TECHNICAL SUPPORT SPECIALIST EGFR Routine 04/19/2024 12:41 AM TECHNICAL SUPPORT SPECIALIST MAGNESIUM Routine 04/19/2024 12:41 AM TECHNICAL SUPPORT SPECIALIST RENAL FUNCTION PANEL Routine 04/19/2024 12:41 AM TECHNICAL SUPPORT SPECIALIST ECG 12-LEAD Routine 04/18/2024 10:45 AM TECHNICAL SUPPORT SPECIALIST ECG 12-LEAD STAT 04/18/2024 7:41 AM TECHNICAL SUPPORT SPECIALIST ECG 12-LEAD STAT 04/18/2024 3:01 AM TECHNICAL SUPPORT SPECIALIST EGFR Routine 04/18/2024 12:24 AM TECHNICAL SUPPORT SPECIALIST MAGNESIUM Routine 04/18/2024 12:24 AM TECHNICAL SUPPORT SPECIALIST RENAL FUNCTION PANEL Routine 04/18/2024 12:24 AM TECHNICAL SUPPORT SPECIALIST PERCUTANEOUS ENDOSCOPIC GASTROSTOMY 04/16/2024 9:04 AM TECHNICAL SUPPORT SPECIALIST Dysphagia, unspecified type EGD 04/16/2024 7:56 AM TECHNICAL SUPPORT SPECIALIST EGFR Routine 04/15/2024 12:25 AM TECHNICAL SUPPORT SPECIALIST PROTIME-INR Routine 04/15/2024 12:25 AM TECHNICAL SUPPORT SPECIALIST RENAL FUNCTION PANEL Routine 04/15/2024 12:25 AM TECHNICAL SUPPORT SPECIALIST POCT GLUCOSE DEVICE Routine 04/13/2024 1 0:44 PM TECHNICAL SUPPORT SPECIALIST FL MODIFIED BARIUM SWALLOW W VIDEO IP Routine 04/13/2024 2:06 PM TECHNICAL SUPPORT SPECIALIST EGFR Routine 04/12/2024 1:38 AM TECHNICAL SUPPORT SPECIALIST DIFFERENTIAL AUTO Routine 04/12/2024 1:3 8 AM TECHNICAL SUPPORT SPECIALIST MAGNESIUM Routine 04/12/2024 1:38 AM TECHNICAL SUPPORT SPECIALIST CBC WITH AUTO DIFFERENTIAL Routine 04/12/2024 1:38 AM TECHNICAL SUPPORT SPECIALIST RENAL FUNCTION PANEL Routine 04/12/2024 1:38 AM TECHNICAL SUPPORT SPECIALIST EGFR Routine 04/10/2024 12:21 AM TECHNICAL SUPPORT SPECIALIST CBC WITHOUT DIFFERENTIAL Routine 04/10/2024 12:21 AM TECHNICAL SUPPORT SPECIALIST MAGNESIUM Routine 04/10/2024 12:21 AM TECHNICAL SUPPORT SPECIALIST RENAL FUNCTION PANEL Routine 04/10/2024 12:21 AM TECHNICAL SUPPORT SPECIALIST EGFR Routine 04/09/2024 12:26 AM TECHNICAL SUPPORT SPECIALIST CBC WITHOUT DIFFERENTIAL Routine 04/09/2024 12:26 AM TECHNICAL SUPPORT SPECIALIST MAGNESIUM Routine 04/09/2024 12:26 AM TECHNICAL SUPPORT SPECIALIST RENAL FUNCTION PANEL Routine 04/09/2024 12:26 AM TECHNICAL SUPPORT SPECIALIST US CAROTIDS DUPLEX BILATERAL IP Routine 04/08/2024 5:50 PM TECHNICAL SUPPORT SPECIALIST EGFR Routine 04/08/2024 12:52 AM TECHNICAL SUPPORT SPECIALIST DIFFERENTIAL AUTO Routine 04/08/2024 12: 52 AM TECHNICAL SUPPORT SPECIALIST MAGNESIUM Routine 04/08/2024 12:52 AM TECHNICAL SUPPORT SPECIALIST RENAL FUNCTION PANEL Routine 04/08/2024 12:52 AM TECHNICAL SUPPORT SPECIALIST CBC WITH AUTO DIFFERENTIAL Routine 04/08/2024 12:52 AM TECHNICAL SUPPORT SPECIALIST MRI BRAIN WO CONTRAST IP Routine 04/08/2024 12:24 AM TECHNICAL SUPPORT SPECIALIST EGFR Routine 04/07/2024 12:51 AM TECHNICAL SUPPORT SPECIALIST DIFFERENTIAL AUTO Routine 04/07/2024 12: 51 AM TECHNICAL SUPPORT SPECIALIST RENAL FUNCTION PANEL Routine 04/07/2024 12:51 AM TECHNICAL SUPPORT SPECIALIST CBC WITH AUTO DIFFERENTIAL Routine 04/07/2024 12:51 AM TECHNICAL SUPPORT SPECIALIST HEMOGLOBIN AND HEMATOCRIT Timed 04/06/2024 5:18 PM TECHNICAL SUPPORT SPECIALIST XR CHEST 1 VIEW IP Routine 04/06/2024 5:06 AM TECHNICAL SUPPORT SPECIALIST ADD ON LAB TEST Add-On 04/06/2024 3:29 AM TECHNICAL SUPPORT SPECIALIST RENAL FUNCTION PANEL Routine 04/06/2024 2:29 AM TECHNICAL SUPPORT SPECIALIST EGFR Routine 04/06/2024 2:29 AM TECHNICAL SUPPORT SPECIALIST DIFFERENTIAL AUTO Routine 04/06/2024 2:2 9 AM TECHNICAL SUPPORT SPECIALIST CBC WITH AUTO DIFFERENTIAL Routine 04/06/2024 2:29 AM TECHNICAL SUPPORT SPECIALIST PROCALCITONIN Routine 04/06/2024 2:29 AM TECHNICAL SUPPORT SPECIALIST BLOOD GAS, VENOUS Routine 04/06/2024 2:1 5 AM TECHNICAL SUPPORT SPECIALIST POCT GLUCOSE DEVICE Routine 04/05/2024 1 2:05 PM TECHNICAL SUPPORT SPECIALIST XR KUB ED Urgent/IP Urgent 04/05/2024 10:23 AM TECHNICAL SUPPORT SPECIALIST FL MODIFIED BARIUM SWALLOW W VIDEO IP Routine 04/05/2024 9:52 AM TECHNICAL SUPPORT SPECIALIST POCT GLUCOSE DEVICE Routine 04/05/2024 4 :30 AM TECHNICAL SUPPORT SPECIALIST MAGNESIUM Routine 04/05/2024 3:39 AM TECHNICAL SUPPORT SPECIALIST EGFR Routine 04/05/2024 3:39 AM TECHNICAL SUPPORT SPECIALIST CBC WITHOUT DIFFERENTIAL Routine 04/05/2024 3:39 AM TECHNICAL SUPPORT SPECIALIST RENAL FUNCTION PANEL Routine 04/05/2024 3:39 AM TECHNICAL SUPPORT SPECIALIST EGFR STAT 04/04/2024 4:18 PM TECHNICAL SUPPORT SPECIALIST RENAL FUNCTION PANEL STAT 04/04/2024 4:18 PM TECHNICAL SUPPORT SPECIALIST OSMOLALITY, URINE Routine 04/04/2024 6:1 1 AM TECHNICAL SUPPORT SPECIALIST CREATININE, URINE, RANDOM Routine 04/04/2024 6:11 AM TECHNICAL SUPPORT SPECIALIST SODIUM, URINE, RANDOM Routine 04/04/2024 6:11 AM TECHNICAL SUPPORT SPECIALIST EGFR Routine 04/04/2024 2:56 AM TECHNICAL SUPPORT SPECIALIST RENAL FUNCTION PANEL Routine 04/04/2024 2:56 AM TECHNICAL SUPPORT SPECIALIST TSH Routine 04/04/2024 2:56 AM TECHNICAL SUPPORT SPECIALIST CBC WITHOUT DIFFERENTIAL Routine 04/04/2024 2:56 AM TECHNICAL SUPPORT SPECIALIST EGFR Timed 04/03/2024 5:59 PM TECHNICAL SUPPORT SPECIALIST RENAL FUNCTION PANEL Timed 04/03/2024 5:59 PM TECHNICAL SUPPORT SPECIALIST MRSA ONLY (STAPHYLOCOCCUS AUREUS) PCR Routine 04/03/2024 3:55 PM TECHNICAL SUPPORT SPECIALIST AEROBIC CULTURE AND GRAM STAIN Routine 04/03/2024 3:55 PM TECHNICAL SUPPORT SPECIALIST ADD ON LAB TEST Add-On 04/03/2024 2:48 PM TECHNICAL SUPPORT SPECIALIST ADD ON LAB TEST Add-On 04/03/2024 2:48 PM TECHNICAL SUPPORT SPECIALIST ADD ON LAB TEST Add-On 04/03/2024 2:48 PM TECHNICAL SUPPORT SPECIALIST ADD ON LAB TEST Add-On 04/03/2024 2:48 PM TECHNICAL SUPPORT SPECIALIST TRANSTHORACIC ECHO (TTE) COMPLETE W DOPPLER/CF WO CONTRAST STAT 04/03/2024 2:46 PM TECHNICAL SUPPORT SPECIALIST URIC ACID STAT 04/03/2024 11:06 AM TECHNICAL SUPPORT SPECIALIST T4, FREE STAT 04/03/2024 11:06 AM TECHNICAL SUPPORT SPECIALIST THYROID FUNCTION CASCADE STAT 04/03/2024 11:06 AM TECHNICAL SUPPORT SPECIALIST CORTISOL STAT 04/03/2024 11:06 AM TECHNICAL SUPPORT SPECIALIST OSMOLALITY, URINE Routine 04/03/2024 11: 06 AM TECHNICAL SUPPORT SPECIALIST SODIUM, URINE, RANDOM Routine 04/03/2024 11:06 AM TECHNICAL SUPPORT SPECIALIST EGFR STAT 04/03/2024 11:06 AM TECHNICAL SUPPORT SPECIALIST URINALYSIS, MICROSCOPIC ONLY Routine 04/03/2024 11:06 AM TECHNICAL SUPPORT SPECIALIST BILIRUBIN, DIRECT STAT 04/03/2024 11: 06 AM TECHNICAL SUPPORT SPECIALIST CBC WITHOUT DIFFERENTIAL STAT 04/03/2024 11:06 AM TECHNICAL SUPPORT SPECIALIST PROTIME-INR STAT 04/03/2024 11:06 AM TECHNICAL SUPPORT SPECIALIST APTT STAT 04/03/2024 11:06 AM TECHNICAL SUPPORT SPECIALIST PRO B-TYPE NATRIURETIC PEPTIDE STAT 04/03/2024 11:06 AM TECHNICAL SUPPORT SPECIALIST LACTATE STAT 04/03/2024 11:06 AM TECHNICAL SUPPORT SPECIALIST PHOSPHORUS STAT 04/03/2024 11:06 AM TECHNICAL SUPPORT SPECIALIST MAGNESIUM STAT 04/03/2024 11:06 AM TECHNICAL SUPPORT SPECIALIST COMPREHENSIVE METABOLIC PANEL STAT 04/03/2024 11:06 AM TECHNICAL SUPPORT SPECIALIST TYPE AND SCREEN STAT 04/03/2024 11:06 AM TECHNICAL SUPPORT SPECIALIST STREP PNEUMONIAE AG, URINE Routine 04/03/2024 11:06 AM TECHNICAL SUPPORT SPECIALIST LEGIONELLA ANTIGEN, URINE Routine 04/03/2024 11:06 AM TECHNICAL SUPPORT SPECIALIST URINALYSIS AND REFLEX TO MICROSCOPIC AND CULTURE Routine 04/03/2024 11:06 AM TECHNICAL SUPPORT SPECIALIST XR CHEST 1 VIEW Critical/Life-T hreatening 04/03/2024 10:23 AM TECHNICAL SUPPORT SPECIALIST XR CHEST 1 VIEW IP Routine 03/27/2024 6:38 AM TECHNICAL SUPPORT SPECIALIST EGFR Routine 03/27/2024 12:27 AM TECHNICAL SUPPORT SPECIALIST MAGNESIUM Routine 03/27/2024 12:27 AM TECHNICAL SUPPORT SPECIALIST RENAL FUNCTION PANEL Routine 03/27/2024 12:27 AM TECHNICAL SUPPORT SPECIALIST CBC WITHOUT DIFFERENTIAL Routine 03/27/2024 12:27 AM TECHNICAL SUPPORT SPECIALIST URINALYSIS, MICROSCOPIC ONLY Routine 03/26/2024 11:53 AM TECHNICAL SUPPORT SPECIALIST URINALYSIS AND REFLEX TO MICROSCOPIC AND CULTURE Routine 03/26/2024 11:53 AM TECHNICAL SUPPORT SPECIALIST XR CHEST 1 VIEW IP Routine 03/26/2024 6:06 AM TECHNICAL SUPPORT SPECIALIST EGFR Routine 03/26/2024 12:27 AM TECHNICAL SUPPORT SPECIALIST MAGNESIUM Routine 03/26/2024 12:27 AM TECHNICAL SUPPORT SPECIALIST RENAL FUNCTION PANEL Routine 03/26/2024 12:27 AM TECHNICAL SUPPORT SPECIALIST CBC WITHOUT DIFFERENTIAL Routine 03/26/2024 12:27 AM TECHNICAL SUPPORT SPECIALIST XR CHEST 1 VIEW IP Routine 03/25/2024 5:49 AM TECHNICAL SUPPORT SPECIALIST EGFR Routine 03/25/2024 1:33 AM TECHNICAL SUPPORT SPECIALIST MAGNESIUM Routine 03/25/2024 1:33 AM TECHNICAL SUPPORT SPECIALIST RENAL FUNCTION PANEL Routine 03/25/2024 1:33 AM TECHNICAL SUPPORT SPECIALIST CBC WITHOUT DIFFERENTIAL Routine 03/25/2024 1:33 AM TECHNICAL SUPPORT SPECIALIST TYPE AND SCREEN Timed 03/25/2024 1:33 AM TECHNICAL SUPPORT SPECIALIST XR CHEST 1 VIEW IP Routine 03/24/2024 8:05 AM TECHNICAL SUPPORT SPECIALIST EGFR Routine 03/24/2024 2:16 AM TECHNICAL SUPPORT SPECIALIST MAGNESIUM Routine 03/24/2024 2:16 AM TECHNICAL SUPPORT SPECIALIST RENAL FUNCTION PANEL Routine 03/24/2024 2:16 AM TECHNICAL SUPPORT SPECIALIST CBC WITHOUT DIFFERENTIAL Routine 03/24/2024 2:16 AM TECHNICAL SUPPORT SPECIALIST XR CHEST 1 VIEW IP Routine 03/23/2024 6:41 AM TECHNICAL SUPPORT SPECIALIST CRITICAL CARE Routine 03/23/2024 6:36 AM TECHNICAL SUPPORT SPECIALIST Iliac aneurysm (CMS/HCC) (HCC) EGFR Routine 03/23/2024 1:16 AM TECHNICAL SUPPORT SPECIALIST CALCIUM, IONIZED Routine 03/23/2024 1:16 AM TECHNICAL SUPPORT SPECIALIST PROTIME-INR Routine 03/23/2024 1:16 AM TECHNICAL SUPPORT SPECIALIST MAGNESIUM Routine 03/23/2024 1:16 AM TECHNICAL SUPPORT SPECIALIST RENAL FUNCTION PANEL Routine 03/23/2024 1:16 AM TECHNICAL SUPPORT SPECIALIST CBC WITHOUT DIFFERENTIAL Routine 03/23/2024 1:16 AM TECHNICAL SUPPORT SPECIALIST CRITICAL CARE Routine 03/22/2024 8:16 PM TECHNICAL SUPPORT SPECIALIST 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 Routine 03/22/2024 6 :38 PM TECHNICAL SUPPORT SPECIALIST EGFR STAT 03/22/2024 6:30 PM TECHNICAL SUPPORT SPECIALIST CALCIUM, IONIZED STAT 03/22/2024 6:30 PM TECHNICAL SUPPORT SPECIALIST MAGNESIUM STAT 03/22/2024 6:30 PM TECHNICAL SUPPORT SPECIALIST RENAL FUNCTION PANEL STAT 03/22/2024 6:30 PM TECHNICAL SUPPORT SPECIALIST PROTIME-INR STAT 03/22/2024 6:30 PM TECHNICAL SUPPORT SPECIALIST APTT STAT 03/22/2024 6:30 PM TECHNICAL SUPPORT SPECIALIST CBC WITHOUT DIFFERENTIAL STAT 03/22/2024 6:30 PM TECHNICAL SUPPORT SPECIALIST CRITICAL CARE Routine 03/22/2024 5:43 PM TECHNICAL SUPPORT SPECIALIST Iliac aneurysm (CMS/HCC) (HCC) REVAS ENDOVASILIAC W STNT [id number] Routine 03/22/2024 4:52 PM TECHNICAL SUPPORT SPECIALIST Iliac aneurysm (CMS/HCC) (HCC) POCT ACTIVATED CLOTTING TIME, HIGH RANGE Routine 03/22/2024 4:51 PM TECHNICAL SUPPORT SPECIALIST POC BLOOD GAS AND CHEMISTRIES, VENOUS Routine 03/22/2024 4:29 PM TECHNICAL SUPPORT SPECIALIST POCT ACTIVATED CLOTTING TIME, HIGH RANGE Routine 03/22/2024 4:10 PM TECHNICAL SUPPORT SPECIALIST POCT ACTIVATED CLOTTING TIME, HIGH RANGE Routine 03/22/2024 4:00 PM TECHNICAL SUPPORT SPECIALIST POCT ACTIVATED CLOTTING TIME, HIGH RANGE Routine 03/22/2024 3:56 PM TECHNICAL SUPPORT SPECIALIST POCT ACTIVATED CLOTTING TIME, HIGH RANGE Routine 03/22/2024 3:28 PM TECHNICAL SUPPORT SPECIALIST POCT ACTIVATED CLOTTING TIME, LOW RANGE Routine 03/22/2024 3:21 PM TECHNICAL SUPPORT SPECIALIST AZ AN PROCEDURE PLACEHOLDER Routine 03/22/2024 3:08 PM TECHNICAL SUPPORT SPECIALIST AZ AN ELECTIVE ENDOTRACHEAL AIRWAY Routine 03/22/2024 3:08 PM TECHNICAL SUPPORT SPECIALIST PREPARE RBC STAT 03/22/2024 2:42 PM TECHNICAL SUPPORT SPECIALIST XR CHEST 1 VIEW IP Routine 03/22/2024 7:26 AM TECHNICAL SUPPORT SPECIALIST EGFR Routine 03/22/2024 1:34 AM TECHNICAL SUPPORT SPECIALIST MAGNESIUM Routine 03/22/2024 1:34 AM TECHNICAL SUPPORT SPECIALIST RENAL FUNCTION PANEL Routine 03/22/2024 1:34 AM TECHNICAL SUPPORT SPECIALIST CBC WITHOUT DIFFERENTIAL Routine 03/22/2024 1:34 AM TECHNICAL SUPPORT SPECIALIST TYPE AND SCREEN Timed 03/22/2024 1:34 AM TECHNICAL SUPPORT SPECIALIST APTT STAT 03/21/2024 8:12 PM TECHNICAL SUPPORT SPECIALIST APTT STAT 03/21/2024 12:40 PM TECHNICAL SUPPORT SPECIALIST APTT Timed 03/21/2024 10:35 AM TECHNICAL SUPPORT SPECIALIST XR CHEST 1 VIEW IP Routine 03/21/2024 7:43 AM TECHNICAL SUPPORT SPECIALIST APTT STAT 03/21/2024 2:27 AM TECHNICAL SUPPORT SPECIALIST EGFR Routine 03/21/2024 2:24 AM TECHNICAL SUPPORT SPECIALIST MAGNESIUM Routine 03/21/2024 2:24 AM TECHNICAL SUPPORT SPECIALIST RENAL FUNCTION PANEL Routine 03/21/2024 2:24 AM TECHNICAL SUPPORT SPECIALIST CBC WITHOUT DIFFERENTIAL Routine 03/21/2024 2:24 AM TECHNICAL SUPPORT SPECIALIST APTT STAT 03/20/2024 4:57 PM TECHNICAL SUPPORT SPECIALIST APTT STAT 03/20/2024 9:27 AM TECHNICAL SUPPORT SPECIALIST PROTIME-INR STAT 03/20/2024 9:27 AM TECHNICAL SUPPORT SPECIALIST XR CHEST 1 VIEW IP Routine 03/20/2024 9:17 AM TECHNICAL SUPPORT SPECIALIST EGFR Routine 03/20/2024 1:03 AM TECHNICAL SUPPORT SPECIALIST MAGNESIUM Routine 03/20/2024 1:03 AM TECHNICAL SUPPORT SPECIALIST CALCIUM, IONIZED Routine 03/20/2024 1:03 AM TECHNICAL SUPPORT SPECIALIST RENAL FUNCTION PANEL Routine 03/20/2024 1:03 AM TECHNICAL SUPPORT SPECIALIST CBC WITHOUT DIFFERENTIAL Routine 03/20/2024 1:03 AM TECHNICAL SUPPORT SPECIALIST PREPARE RBC STAT 03/19/2024 4:56 PM TECHNICAL SUPPORT SPECIALIST CTA ABDOMEN PELVIS W WO CONTRAST IP Routine 03/19/2024 9:06 AM TECHNICAL SUPPORT SPECIALIST POTASSIUM LEVEL STAT 03/19/2024 6:48 AM TECHNICAL SUPPORT SPECIALIST CRITICAL CARE Routine 03/19/2024 6:40 AM TECHNICAL SUPPORT SPECIALIST 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 IP Routine 03/19/2024 6:37 AM TECHNICAL SUPPORT SPECIALIST POCT GLUCOSE DEVICE Routine 03/19/2024 6 :01 AM TECHNICAL SUPPORT SPECIALIST POCT GLUCOSE DEVICE Routine 03/19/2024 2 :13 AM TECHNICAL SUPPORT SPECIALIST POCT GLUCOSE DEVICE Routine 03/19/2024 1 2:18 AM TECHNICAL SUPPORT SPECIALIST EGFR Routine 03/19/2024 12:04 AM TECHNICAL SUPPORT SPECIALIST MAGNESIUM Routine 03/19/2024 12:04 AM TECHNICAL SUPPORT SPECIALIST CALCIUM, IONIZED Routine 03/19/2024 12:0 4 AM TECHNICAL SUPPORT SPECIALIST RENAL FUNCTION PANEL Routine 03/19/2024 12:04 AM TECHNICAL SUPPORT SPECIALIST CBC WITHOUT DIFFERENTIAL Routine 03/19/2024 12:04 AM TECHNICAL SUPPORT SPECIALIST POCT GLUCOSE DEVICE Routine 03/18/2024 9 :02 PM TECHNICAL SUPPORT SPECIALIST EXTUBATION Routine 03/18/2024 7:38 PM TECHNICAL SUPPORT SPECIALIST BLOOD GAS, ARTERIAL STAT 03/18/2024 7 :23 PM TECHNICAL SUPPORT SPECIALIST POCT GLUCOSE DEVICE Routine 03/18/2024 7 :12 PM TECHNICAL SUPPORT SPECIALIST CRITICAL CARE Routine 03/18/2024 6:39 PM TECHNICAL SUPPORT SPECIALIST 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 Routine 03/18/2024 6 :07 PM TECHNICAL SUPPORT SPECIALIST XR CHEST 1 VIEW ED Urgent/IP Urgent 03/18/2024 4:41 PM TECHNICAL SUPPORT SPECIALIST POCT GLUCOSE DEVICE Routine 03/18/2024 4 :27 PM TECHNICAL SUPPORT SPECIALIST CRITICAL CARE Routine 03/18/2024 4:19 PM TECHNICAL SUPPORT SPECIALIST EGFR STAT 03/18/2024 4:17 PM TECHNICAL SUPPORT SPECIALIST APTT STAT 03/18/2024 4:17 PM TECHNICAL SUPPORT SPECIALIST PROTIME-INR STAT 03/18/2024 4:17 PM TECHNICAL SUPPORT SPECIALIST CBC WITHOUT DIFFERENTIAL STAT 03/18/2024 4:17 PM TECHNICAL SUPPORT SPECIALIST BLOOD GAS, ARTERIAL STAT 03/18/2024 4 :17 PM TECHNICAL SUPPORT SPECIALIST CALCIUM, IONIZED STAT 03/18/2024 4:17 PM TECHNICAL SUPPORT SPECIALIST MAGNESIUM STAT 03/18/2024 4:17 PM TECHNICAL SUPPORT SPECIALIST BASIC METABOLIC PANEL STAT 03/18/2024 4:17 PM TECHNICAL SUPPORT SPECIALIST PHOSPHORUS STAT 03/18/2024 4:17 PM TECHNICAL SUPPORT SPECIALIST PROTIME-INR STAT 03/18/2024 3:38 PM TECHNICAL SUPPORT SPECIALIST FIBRINOGEN STAT 03/18/2024 3:38 PM TECHNICAL SUPPORT SPECIALIST CBC WITHOUT DIFFERENTIAL STAT 03/18/2024 3:38 PM TECHNICAL SUPPORT SPECIALIST APTT STAT 03/18/2024 3:38 PM TECHNICAL SUPPORT SPECIALIST POC BLOOD GAS AND CHEMISTRIES, ARTERIAL Routine 03/18/2024 3:35 PM TECHNICAL SUPPORT SPECIALIST POCT ACTIVATED CLOTTING TIME, HIGH RANGE Routine 03/18/2024 3:35 PM TECHNICAL SUPPORT SPECIALIST POC BLOOD GAS AND CHEMISTRIES, ARTERIAL Routine 03/18/2024 2:41 PM TECHNICAL SUPPORT SPECIALIST POCT ACTIVATED CLOTTING TIME, HIGH RANGE Routine 03/18/2024 2:40 PM TECHNICAL SUPPORT SPECIALIST POC BLOOD GAS AND CHEMISTRIES, VENOUS Routine 03/18/2024 2:30 PM TECHNICAL SUPPORT SPECIALIST SURGICAL PATHOLOGY Routine 03/18/2024 2: 09 PM TECHNICAL SUPPORT SPECIALIST Aortic root aneurysm POC BLOOD GAS AND CHEMISTRIES, ARTERIAL Routine 03/18/2024 2:08 PM TECHNICAL SUPPORT SPECIALIST POCT ACTIVATED CLOTTING TIME, HIGH RANGE Routine 03/18/2024 2:08 PM TECHNICAL SUPPORT SPECIALIST POC BLOOD GAS AND CHEMISTRIES, ARTERIAL Routine 03/18/2024 1:50 PM TECHNICAL SUPPORT SPECIALIST POCT ACTIVATED CLOTTING TIME, HIGH RANGE Routine 03/18/2024 1:49 PM TECHNICAL SUPPORT SPECIALIST [place] AN PROCEDURE PLACEHOLDER Routine 03/18/2024 1:41 PM TECHNICAL SUPPORT SPECIALIST PULMONARY ARTERY CATH Routine 03/18/2024 1:41 PM TECHNICAL SUPPORT SPECIALIST BW AN SHEATH INTRODUCER PERFORMABLE Routine 03/18/2024 1:41 PM TECHNICAL SUPPORT SPECIALIST AZ AN PROCEDURE PLACEHOLDER Routine 03/18/2024 1:40 PM TECHNICAL SUPPORT SPECIALIST AZ AN CENTRAL LINE QUADRUPLE LUMEN Routine 03/18/2024 1:40 PM TECHNICAL SUPPORT SPECIALIST AZ AN PROCEDURE PLACEHOLDER Routine 03/18/2024 1:39 PM TECHNICAL SUPPORT SPECIALIST AZ AN PROCEDURE PLACEHOLDER Routine 03/18/2024 1:38 PM TECHNICAL SUPPORT SPECIALIST AZ AN PROCEDURE PLACEHOLDER Routine 03/18/2024 1:37 PM TECHNICAL SUPPORT SPECIALIST AZ AN ELECTIVE ENDOTRACHEAL AIRWAY Routine 03/18/2024 1:37 PM TECHNICAL SUPPORT SPECIALIST [place] AN PROCEDURE PLACEHOLDER Routine 03/18/2024 1:29 PM TECHNICAL SUPPORT SPECIALIST POCT ACTIVATED CLOTTING TIME, HIGH RANGE Routine 03/18/2024 1:11 PM TECHNICAL SUPPORT SPECIALIST REPLACEMENT AORTIC ROOT 03/18/2024 12:46 PM TECHNICAL SUPPORT SPECIALIST Aortic root aneurysm LIDIA ADD-ON FOR OR Routine 03/18/2024 12: 05 PM TECHNICAL SUPPORT SPECIALIST B CHECK SAMPLE STAT 03/18/2024 9:54 AM TECHNICAL SUPPORT SPECIALIST ECG 12-LEAD Routine 03/18/2024 9:34 AM TECHNICAL SUPPORT SPECIALIST PREPARE RBC STAT 03/18/2024 9:12 AM TECHNICAL SUPPORT SPECIALIST DIFFERENTIAL AUTO Routine 03/15/2024 12: 29 PM TECHNICAL SUPPORT SPECIALIST Aneurysm of ascending aorta without rupture (HCC) Pre-op evaluation HEMOGLOBIN A1C Routine 03/15/2024 12:29 PM TECHNICAL SUPPORT SPECIALIST Aneurysm of ascending aorta without rupture (HCC) Pre-op evaluation CBC WITH AUTO DIFFERENTIAL Routine 03/15/2024 12:29 PM TECHNICAL SUPPORT SPECIALIST Aneurysm of ascending aorta without rupture (HCC) Pre-op evaluation TYPE AND SCREEN Routine 03/15/2024 12:29 PM TECHNICAL SUPPORT SPECIALIST Aneurysm of ascending aorta without rupture (HCC) Pre-op evaluation EGFR Routine 03/15/2024 12:28 PM TECHNICAL SUPPORT SPECIALIST Aneurysm of ascending aorta without rupture (HCC) Pre-op evaluation COMPREHENSIVE METABOLIC PANEL Routine 03/15/2024 12:28 PM TECHNICAL SUPPORT SPECIALIST Aneurysm of ascending aorta without rupture (HCC) Pre-op evaluation from Last 3 Months Results * eGFR (04/20/2024 12:20 AM TECHNICAL SUPPORT SPECIALIST) eGFR 71 >=60 mL/min/1. 73 m2 Comment: [...] reviewed 2021. Blood 04/20/2024 12:2 0 AM TECHNICAL SUPPORT SPECIALIST 04/20/2024 12:48 AM TECHNICAL SUPPORT SPECIALIST us Louann Conti MD LAB BLOOD ORDERABLES F inal Result [facility] [address] Department of Laboratories [place], [place] [id number] * Magnesium (04/20/2024 12:20 AM TECHNICAL SUPPORT SPECIALIST) Magnesium 2.2 1.4 - 2.5 mg/dL Blood 04/20/2024 12:2 0 AM TECHNICAL SUPPORT SPECIALIST 04/20/2024 12:48 AM TECHNICAL SUPPORT SPECIALIST Louann Conti MD LAB BLOOD ORDERABLES F inal Result Performing Organization Address City/[facility]/ZIP Co de Phone Number [facility] [address] [place] [address] * (ABNORMAL) Renal function panel (04/20/2024 12:20 AM TECHNICAL SUPPORT SPECIALIST) [facility] Sodium 138 135 - 145 mmol/L Potassium, pl 4.3 3.3 - 4.9 mmol/L [facility] Chloride 102 97 - 110 mmol/L [facility] CO2 26 22 - 32 mmol/L [facility] Anion gap 10 2 - 15 mmol/L [facility] BUN 26(H) 6 - 25 mg/dL [facility] Creatinine 1.04 0.80 - 1.30 mg/dL [facility] Glucose 119 70 - 199 mg/dL [facility] Comment: Interpretive Data Fasting glucose [...] 2022. Calcium 8.5 8.5 - 10.3 mg/dL [facility] Phosphorus, pl 2.9 2.3 - 4.5 mg/dL [facility] Albumin 3.5 3.5 - 5.0 g/dL [facility] Blood 04/20/2024 12:2 0 AM TECHNICAL SUPPORT SPECIALIST 04/20/2024 12:48 AM TECHNICAL SUPPORT SPECIALIST us Louann Conti MD LAB BLOOD ORDERABLES F inal Result [facility] [address] [place] [address] * eGFR (04/19/2024 12:41 AM TECHNICAL SUPPORT SPECIALIST) eGFR 72 >=60 mL/min/1. 73 m2 Comment: [...] reviewed 2021. Blood 04/19/2024 12:4 1 AM TECHNICAL SUPPORT SPECIALIST 04/19/2024 12:56 AM TECHNICAL SUPPORT SPECIALIST us Louann Conti MD LAB BLOOD ORDERABLES F inal Result [facility] [address] [employer] [place], [place] [id number] * Magnesium (04/19/2024 12:41 AM TECHNICAL SUPPORT SPECIALIST) Pathologist [facility] Magnesium 2.3 1.4 - 2.5 mg/dL Blood 04/19/2024 12:4 1 AM TECHNICAL SUPPORT SPECIALIST 04/19/2024 12:56 AM TECHNICAL SUPPORT SPECIALIST Louann Conti MD LAB BLOOD ORDERABLES F inal Result [facility] [address] [place] [address] * (ABNORMAL) Renal function panel (04/19/2024 12:41 AM TECHNICAL SUPPORT SPECIALIST) Pathologist [facility] Sodium 138 135 - 145 mmol/L Potassium, pl 4.6 3.3 - 4.9 mmol/L [facility] Chloride 103 97 - 110 mmol/L [facility] CO2 26 22 - 32 mmol/L [facility] Anion gap 9 2 - 15 mmol/L [facility] BUN 31(H) 6 - 25 mg/dL [facility] Creatinine 1.02 0.80 - 1.30 mg/dL [facility] Glucose 97 70 - 199 mg/dL [facility] Comment: Interpretive Data Fasting glucose [...] 2022. Calcium 8.6 8.5 - 10.3 mg/dL [facility] Phosphorus, pl 3.0 2.3 - 4.5 mg/dL [facility] Albumin 3.5 3.5 - 5.0 g/dL [facility] Blood 04/19/2024 12:4 1 AM TECHNICAL SUPPORT SPECIALIST 04/19/2024 12:56 AM TECHNICAL SUPPORT SPECIALIST us Louann Conti MD LAB BLOOD ORDERABLES F inal Result [facility] [address] [place] [address] * ECG 12 lead (04/18/2024 10:45 AM TECHNICAL SUPPORT SPECIALIST) 04/18/2024 10:4 5 AM TECHNICAL SUPPORT SPECIALIST Narrative [facility] - 04/18/2024 1:35 PM TECHNICAL SUPPORT SPECIALIST Vent Rate: 66 bpm RR Interval: 897 msec [place] Interval: 0 msec QRS Duration: 91 msec QT Interval: 251 msec QTC Interval: 265 msec P-R-T [place]: 0 - 12 - 0 degrees IMPRESSION: ATRIAL FIBRILLATION NONSPECIFIC ST \T\ T-WAVE ABNORMALITY ABNORMAL RHYTHM ECG Electronically Signed By: Klaus Humphrey MD PhD Klaus Humphrey MD PhD ECG ORDERABLES Final Result Performing Organization Address [facility] Phone Number [facility] * ECG 12 lead (04/18/2024 7:41 AM TECHNICAL SUPPORT SPECIALIST) 04/18/2024 7:41 AM TECHNICAL SUPPORT SPECIALIST Narrative [facility] - 04/18/2024 7:53 AM TECHNICAL SUPPORT SPECIALIST Vent Rate: 65 bpm RR Interval: 921 msec [place] Interval: 0 msec QRS Duration: 101 msec QT Interval: 442 msec QTC Interval: 453 msec P-R-T [place]: 0 - 2 - 10 degrees IMPRESSION: ATRIAL FIBRILLATION NONSPECIFIC T-WAVE ABNORMALITY ABNORMAL RHYTHM ECG Electronically Signed By: Klaus Humphrey MD PhD Louann Conti MD ECG ORDERABLES Final Result Performing Organization Address [facility] Phone Number [facility] * ECG 12 lead (04/18/2024 3:01 AM TECHNICAL SUPPORT SPECIALIST) 04/18/2024 3:01 AM TECHNICAL SUPPORT SPECIALIST Narrative [facility] - 04/18/2024 7:57 AM TECHNICAL SUPPORT SPECIALIST Vent Rate: 64 bpm RR Interval: 930 msec [place] Interval: 0 msec QRS Duration: 94 msec QT Interval: 441 msec QTC Interval: 451 msec P-R-T [place]: 0 - -4 - -36 degrees IMPRESSION: ATRIAL FIBRILLATION INFERIOR MYOCARDIAL INFARCTION , PROBABLY OLD WITH POSTERIOR EXTENSION ABNORMAL ECG Electronically Signed By: Klaus Humphrey MD PhD Cristino Houser Jr., PA ECG ORDERABLES Final Result Performing Organization Address [facility] Phone Number [facility] * eGFR (04/18/2024 12:24 AM TECHNICAL SUPPORT SPECIALIST) eGFR 69 >=60 mL/min/1. 73 m2 Comment: [...] reviewed 2021. Blood 04/18/2024 12:2 4 AM TECHNICAL SUPPORT SPECIALIST 04/18/2024 12:44 AM TECHNICAL SUPPORT SPECIALIST Louann Conti MD LAB BLOOD ORDERABLES F inal Result Performing Organization Address City/[facility]/ZIP Co de Phone Number [facility] [address] [place] [address] * Magnesium (04/18/2024 12:24 AM TECHNICAL SUPPORT SPECIALIST) [facility] Magnesium 2.4 1.4 - 2.5 mg/dL Blood 04/18/2024 12:2 4 AM TECHNICAL SUPPORT SPECIALIST 04/18/2024 12:44 AM TECHNICAL SUPPORT SPECIALIST Louann Conti MD LAB BLOOD ORDERABLES F inal Result Performing Organization Address City/[facility] Co de Phone Number [facility] [address] [facility] [place] [address] * (ABNORMAL) Renal function panel (04/18/2024 12:24 AM TECHNICAL SUPPORT SPECIALIST) Sodium 137 135 - 145 mmol/L Potassium, pl 4.3 3.3 - 4.9 mmol/L [facility] Chloride 101 97 - 110 mmol/L [facility] CO2 25 22 - 32 mmol/L [facility] Anion gap 11 2 - 15 mmol/L [facility] BUN 37(H) 6 - 25 mg/dL [facility] Creatinine 1.06 0.80 - 1.30 mg/dL [facility] Glucose 102 70 - 199 mg/dL [facility] Comment: Interpretive Data Fasting glucose [...] 2022. Calcium 8.9 8.5 - 10.3 mg/dL [facility] Phosphorus, pl 2.9 2.3 - 4.5 mg/dL [facility] Albumin 3.8 3.5 - 5.0 g/dL [facility] Blood 04/18/2024 12:2 4 AM TECHNICAL SUPPORT SPECIALIST 04/18/2024 12:44 AM TECHNICAL SUPPORT SPECIALIST Louann Conti MD LAB BLOOD ORDERABLES F inal Result [facility] [address] Department [place] [address] * EGD (04/16/2024 7:56 AM TECHNICAL SUPPORT SPECIALIST) Anatomical Region Laterality Modality Other Narrative Procedure [...] Final Result * eGFR (04/15/2024 12:25 AM TECHNICAL SUPPORT SPECIALIST) eGFR 61 >=60 mL/min/1. 73 m2 Comment: [...] reviewed 2021. Blood 04/15/2024 12:2 5 AM TECHNICAL SUPPORT SPECIALIST 04/15/2024 12:48 AM TECHNICAL SUPPORT SPECIALIST us Louann Conti MD LAB BLOOD ORDERABLES F inal Result Performing Organization Address [facility] Co de Phone Number [facility] [address] [place] [address] * (ABNORMAL) Protime-INR (04/15/2024 12:25 AM TECHNICAL SUPPORT SPECIALIST) PT 16.8(H) 9.7 - 13.0 sec INR 1.54(H) 0.90 - 1.20 [facility] Comment: Interpretive data Oral anticoagulant therapeutic ranges: Venous thromboembolism prophylaxis or treatment: 2.0-3.0 CARDIOLOGY Standard range: 2.0-3.0 High-intensity range: 2.5-3.5 Refer to indication-specific guidelines for appropriate target ranges for prosthetic heart valve replacement. Current interpretive data was last revised on 2019. Blood 04/15/2024 12:2 5 AM TECHNICAL SUPPORT SPECIALIST 04/15/2024 12:48 AM TECHNICAL SUPPORT SPECIALIST us Jaycee SOLIS LAB BLOOD ORDERABLES Final Re sult Performing Organization Address [facility]/ZIP Co de Phone Number [facility] [address] [place] [address] * (ABNORMAL) Renal function panel (04/15/2024 12:25 AM TECHNICAL SUPPORT SPECIALIST) Pathologist [facility] Sodium 140 135 - 145 mmol/L Potassium, pl 4.5 3.3 - 4.9 mmol/L [facility] Chloride 103 97 - 110 mmol/L [facility] CO2 27 22 - 32 mmol/L [facility] Anion gap 10 2 - 15 mmol/L [facility] BUN 27(H) 6 - 25 mg/dL [facility] Creatinine 1.17 0.80 - 1.30 mg/dL [facility] Glucose 103 70 - 199 mg/dL [facility] Comment: Interpretive Data Fasting glucose [...] 2022. Calcium 9.5 8.5 - 10.3 mg/dL [facility] Phosphorus, pl 4.2 2.3 - 4.5 mg/dL [facility] Albumin 3.7 3.5 - 5.0 g/dL [facility] Blood 04/15/2024 12:2 5 AM TECHNICAL SUPPORT SPECIALIST 04/15/2024 12:48 AM TECHNICAL SUPPORT SPECIALIST us Louann Conti MD LAB BLOOD ORDERABLES F inal Result [facility] [address] Department [place] [address] * POCT glucose (04/13/2024 10:44 PM TECHNICAL SUPPORT SPECIALIST) [facility] Glucose, POC 102 70 - 199 mg/dL Comment: For Glucose values <35 mg/dl when Hematocrit is >60 mg/dl,the test may not accurately detect significant hypoglycemia,and testing in the Laboratory should be considered if clinically indicated. Blood 04/13/2024 10:4 4 PM TECHNICAL SUPPORT SPECIALIST 04/13/2024 10:44 PM TECHNICAL SUPPORT SPECIALIST Louann Conti MD LAB POCT ORDERABLES - DEVICE Final Result [facility] [address] Department [place] [address] * FL Modified Barium Swallow W Video (04/13/2024 2:06 PM TECHNICAL SUPPORT SPECIALIST) Anatomical Region Laterality Modality Head and Neck N/A Radio Fluoroscop y 04/13/2024 3:44 PM TECHNICAL SUPPORT SPECIALIST Impressions 04/13/2024 4:07 PM TECHNICAL SUPPORT SPECIALIST 1. There is silent transglottic aspiration with [...] Mo Stahl M.D. Narrative 04/13/2024 4:07 PM TECHNICAL SUPPORT SPECIALIST EXAMINATION: MODIFIED BARIUM SWALLOW 04/05/2024 HISTORY: Dysphagia. [...] Final Result * eGFR (04/12/2024 1:38 AM TECHNICAL SUPPORT SPECIALIST) Pathologist [facility] eGFR 68 >=60 mL/min/1. 73 m2 Comment: [...] last reviewed 2021. Blood 04/12/2024 1:38 AM TECHNICAL SUPPORT SPECIALIST 04/12/2024 1:58 AM TECHNICAL SUPPORT SPECIALIST Tara Ram MD LAB BLOOD ORDERABLES Final Result [facility] [address] [place] [address] * Differential, auto (04/12/2024 1:38 AM TECHNICAL SUPPORT SPECIALIST) Pathologist [facility] Neutrophil abs 4.4 1.5 - 6.5 K/cumm Imm gran abs 0.1 0.0 - 0.1 K/cumm [facility] Lymphocyte abs 0.9 0.8 - 3.3 K/cumm [facility] Monocyte abs 0.6 0.2 - 0.8 K/cumm [facility] Eosinophil abs 0.5 0.0 - 0.5 K/cumm [facility] Basophil abs 0.1 0.0 - 0.1 K/cumm [facility] Neutrophil pct 66.9 % [facility] Comment: Interpretive Data Percent cell count reference ranges are not reported, since discordance with absolute values may lead to misinterpretation of CBC data. Current Interpretive Data was last revised on 2017. Imm gran pct 0.9 % [facility] Comment: Interpretive Data Percent cell count reference ranges are not reported, since discordance with absolute values may lead to misinterpretation of CBC data. Current Interpretive Data was last revised on 2017. Lymphocyte pct 13.7 % [facility] Comment: Interpretive Data Percent cell count reference ranges are not reported, since discordance with absolute values may lead to misinterpretation of CBC data. Current Interpretive Data was last revised on 2017. Monocyte pct 9.6 % [facility] Comment: Interpretive Data Percent cell count reference ranges are not reported, since discordance with absolute values may lead to misinterpretation of CBC data. Current Interpretive Data was last revised on 2017. Eosinophil pct 7.4 % [facility] Comment: Interpretive Data Percent cell count reference ranges are not reported, since discordance with absolute values may lead to misinterpretation of CBC data. Current Interpretive Data was last revised on 2017. Basophil pct 1.5 % [facility] Comment: Interpretive Data Percent cell count reference ranges are not reported, since discordance with absolute values may lead to misinterpretation of CBC data. Current Interpretive Data was last revised on 2017. Blood 04/12/2024 1:38 AM TECHNICAL SUPPORT SPECIALIST 04/12/2024 1:58 AM TECHNICAL SUPPORT SPECIALIST us Tara Ram MD LAB BLOOD ORDERABLES Final Result [facility] [address] [place] [address] * (ABNORMAL) CBC with auto differential (04/12/2024 1:38 AM TECHNICAL SUPPORT SPECIALIST) WBC 6.6 3.8 - 9.9 K/cumm Hgb 10.2(L) 13.0 - 17.5 g/dL [facility] Hct 31.6(L) 38.9 - 50.3 % [facility] Plt 270 150 - 400 K/cumm [facility] MPV 9.1 9.1 - 12.3 fL [facility] RBC 3.56(L) 4.30 - 5.80 M/cumm [facility] MCV 88.8 81.3 - 96.4 fL [facility] MCH 28.7 27.1 - 33.3 pg [facility] MCHC 32.3 32.3 - 35.7 g/dL [facility] RDW CV 12.8 11.1 - 14.9 % [facility] RDW SD 41.6 35.7 - 48.1 fL [facility] NRBC abs 0.00 0.00 - 0.01 K/cumm [facility] Blood 04/12/2024 1:38 AM TECHNICAL SUPPORT SPECIALIST 04/12/2024 1:58 AM TECHNICAL SUPPORT SPECIALIST Tara Ram MD LAB BLOOD ORDERABLES Final Result Performing Organization Address [facility] Co de Phone Number [facility] [address] [place] [address] * Magnesium (04/12/2024 1:38 AM TECHNICAL SUPPORT SPECIALIST) [facility] Magnesium 2.3 1.4 - 2.5 mg/dL Blood 04/12/2024 1:38 AM TECHNICAL SUPPORT SPECIALIST 04/12/2024 1:58 AM TECHNICAL SUPPORT SPECIALIST Tara Ram MD LAB BLOOD ORDERABLES Final Result Performing Organization Address [facility] Co de Phone Number [facility] [address] [place] [address] * Renal function panel (04/12/2024 1:38 AM TECHNICAL SUPPORT SPECIALIST) Pathologist [facility] Sodium 137 135 - 145 mmol/L Potassium, pl 4.4 3.3 - 4.9 mmol/L [facility] Chloride 102 97 - 110 mmol/L [facility] CO2 24 22 - 32 mmol/L [facility] Anion gap 11 2 - 15 mmol/L [facility] BUN 25 6 - 25 mg/dL [facility] Creatinine 1.07 0.80 - 1.30 mg/dL [facility] Glucose 115 70 - 199 mg/dL [facility] Comment: Interpretive Data Fasting glucose [...] 2022. Calcium 9.6 8.5 - 10.3 mg/dL [facility] Phosphorus, pl 4.1 2.3 - 4.5 mg/dL [facility] Albumin 3.6 3.5 - 5.0 g/dL [facility] Blood 04/12/2024 1:38 AM TECHNICAL SUPPORT SPECIALIST 04/12/2024 1:58 AM TECHNICAL SUPPORT SPECIALIST Tara Ram MD LAB BLOOD ORDERABLES Final Result [facility] [address] [place] [address] * eGFR (04/10/2024 12:21 AM TECHNICAL SUPPORT SPECIALIST) eGFR 65 >=60 mL/min/1. 73 m2 Comment: [...] reviewed 2021. Blood 04/10/2024 12:2 1 AM TECHNICAL SUPPORT SPECIALIST 04/10/2024 12:46 AM TECHNICAL SUPPORT SPECIALIST Tara Ram MD LAB BLOOD ORDERABLES Final Result [facility] [address] [place] [address] * (ABNORMAL) CBC without differential (04/10/2024 12:21 AM TECHNICAL SUPPORT SPECIALIST) WBC 5.1 3.8 - 9.9 K/cumm Hgb 10.2(L) 13.0 - 17.5 g/dL [facility] Hct 31.7(L) 38.9 - 50.3 % [facility] Plt 274 150 - 400 K/cumm [facility] MPV 8.6(L) 9.1 - 12.3 fL [facility] RBC 3.55(L) 4.30 - 5.80 M/cumm [facility] MCV 89.3 81.3 - 96.4 fL [facility] MCH 28.7 27.1 - 33.3 pg [facility] MCHC 32.2(L) 32.3 - 35.7 g/dL [facility] RDW CV 12.7 11.1 - 14.9 % [facility] RDW SD 41.6 35.7 - 48.1 fL [facility] NRBC abs 0.00 0.00 - 0.01 K/cumm [facility] Blood 04/10/2024 12:2 1 AM TECHNICAL SUPPORT SPECIALIST 04/10/2024 12:46 AM TECHNICAL SUPPORT SPECIALIST us Tara Ram MD LAB BLOOD ORDERABLES Final Result [facility] [address] Department [place] [address] * Magnesium (04/10/2024 12:21 AM TECHNICAL SUPPORT SPECIALIST) [facility] Magnesium 2.4 1.4 - 2.5 mg/dL Blood 04/10/2024 12:2 1 AM TECHNICAL SUPPORT SPECIALIST 04/10/2024 12:46 AM TECHNICAL SUPPORT SPECIALIST Tara Ram MD LAB BLOOD ORDERABLES Final Result [facility] [address] [place] [address] * Renal function panel (04/10/2024 12:21 AM TECHNICAL SUPPORT SPECIALIST) [facility] Sodium 138 135 - 145 mmol/L Potassium, pl 4.6 3.3 - 4.9 mmol/L [facility] Chloride 101 97 - 110 mmol/L [facility] CO2 28 22 - 32 mmol/L [facility] Anion gap 9 2 - 15 mmol/L [facility] BUN 23 6 - 25 mg/dL [facility] Creatinine 1.12 0.80 - 1.30 mg/dL [facility] Glucose 85 70 - 199 mg/dL [facility] Comment: Interpretive Data Fasting glucose [...] 2022. Calcium 9.6 8.5 - 10.3 mg/dL [facility] Phosphorus, pl 4.1 2.3 - 4.5 mg/dL [facility] Albumin 3.7 3.5 - 5.0 g/dL [facility] Blood 04/10/2024 12:2 1 AM TECHNICAL SUPPORT SPECIALIST 04/10/2024 12:46 AM TECHNICAL SUPPORT SPECIALIST Tara Ram MD LAB BLOOD ORDERABLES Final Result Performing Organization Address [facility] Co de Phone Number [facility] [address] Department of [employer] [place], [place] [id number] * eGFR (04/09/2024 12:26 AM TECHNICAL SUPPORT SPECIALIST) eGFR 74 >=60 mL/min/1. 73 m2 Comment: [...] reviewed 2021. Blood 04/09/2024 12:2 6 AM TECHNICAL SUPPORT SPECIALIST 04/09/2024 1:19 AM TECHNICAL SUPPORT SPECIALIST Tara Ram MD LAB BLOOD ORDERABLES Final Result Performing Organization Address [facility]/ZIP Co de Phone Number [facility] [address] [place] [address] * (ABNORMAL) CBC without differential (04/09/2024 12:26 AM TECHNICAL SUPPORT SPECIALIST) Pathologist [facility] WBC 5.8 3.8 - 9.9 K/cumm Hgb 9.9(L) 13.0 - 17.5 g/dL [facility] Hct 31.6(L) 38.9 - 50.3 % [facility] Plt 289 150 - 400 K/cumm [facility] MPV 9.4 9.1 - 12.3 fL [facility] RBC 3.44(L) 4.30 - 5.80 M/cumm [facility] MCV 91.9 81.3 - 96.4 fL [facility] MCH 28.8 27.1 - 33.3 pg [facility] MCHC 31.3(L) 32.3 - 35.7 g/dL [facility] RDW CV 12.7 11.1 - 14.9 % [facility] RDW SD 42.0 35.7 - 48.1 fL [facility] NRBC abs 0.00 0.00 - 0.01 K/cumm [facility] Blood 04/09/2024 12:2 6 AM TECHNICAL SUPPORT SPECIALIST 04/09/2024 1:20 AM TECHNICAL SUPPORT SPECIALIST Tara Ram MD LAB BLOOD ORDERABLES Final Result Performing Organization Address [facility]/ZIP Co de Phone Number [facility] [address] [facility] [place] [address] * Magnesium (04/09/2024 12:26 AM TECHNICAL SUPPORT SPECIALIST) [facility] Magnesium 2.3 1.4 - 2.5 mg/dL Blood 04/09/2024 12:2 6 AM TECHNICAL SUPPORT SPECIALIST 04/09/2024 1:19 AM TECHNICAL SUPPORT SPECIALIST Tara Ram MD LAB BLOOD ORDERABLES Final Result [facility] [address] [place] [address] * (ABNORMAL) Renal function panel (04/09/2024 12:26 AM TECHNICAL SUPPORT SPECIALIST) Pathologist [facility] Sodium 138 135 - 145 mmol/L Potassium, pl 4.6 3.3 - 4.9 mmol/L [facility] Chloride 103 97 - 110 mmol/L [facility] CO2 25 22 - 32 mmol/L [facility] Anion gap 10 2 - 15 mmol/L [facility] BUN 24 6 - 25 mg/dL [facility] Creatinine 1.00 0.80 - 1.30 mg/dL [facility] Glucose 90 70 - 199 mg/dL [facility] Comment: Interpretive Data Fasting glucose [...] 2022. Calcium 9.3 8.5 - 10.3 mg/dL [facility] Phosphorus, pl 3.7 2.3 - 4.5 mg/dL [facility] Albumin 3.3(L) 3.5 - 5.0 g/dL [facility] Blood 04/09/2024 12:2 6 AM TECHNICAL SUPPORT SPECIALIST 04/09/2024 1:19 AM TECHNICAL SUPPORT SPECIALIST Tara Ram MD LAB BLOOD ORDERABLES Final Result [facility] [address] [place] [address] * US Carotids Duplex Bilateral (04/08/2024 5:50 PM TECHNICAL SUPPORT SPECIALIST) Anatomical Region Laterality Modality Vascular Bilateral Ultrasound 04/09/2024 4:26 PM TECHNICAL SUPPORT SPECIALIST Impressions 04/09/2024 4:26 PM TECHNICAL SUPPORT SPECIALIST 1) Diffuse atherosclerotic change throughout the bilateral [...] Onur Martinez MD Narrative 04/09/2024 4:26 PM TECHNICAL SUPPORT SPECIALIST DATE:04/08/2024 9:30 AM EXAM: Duplex imaging of [...] Re sult * eGFR (04/08/2024 12:52 AM TECHNICAL SUPPORT SPECIALIST) eGFR 68 >=60 mL/min/1. 73 m2 Comment: [...] reviewed 2021. Blood 04/08/2024 12:5 2 AM TECHNICAL SUPPORT SPECIALIST 04/08/2024 1:05 AM TECHNICAL SUPPORT SPECIALIST us Tara Ram MD LAB BLOOD ORDERABLES Final Result [facility] [address] Department [place] [address] * Differential, auto (04/08/2024 12:52 AM TECHNICAL SUPPORT SPECIALIST) Neutrophil abs 4.4 1.5 - 6.5 K/cumm Imm gran abs 0.0 0.0 - 0.1 K/cumm [facility] Lymphocyte abs 0.9 0.8 - 3.3 K/cumm [facility] Monocyte abs 0.7 0.2 - 0.8 K/cumm [facility] Eosinophil abs 0.3 0.0 - 0.5 K/cumm [facility] Basophil abs 0.1 0.0 - 0.1 K/cumm [facility] Neutrophil pct 68.1 % [facility] Comment: Interpretive Data Percent cell count reference ranges are not reported, since discordance with absolute values may lead to misinterpretation of CBC data. Current Interpretive Data was last revised on 2017. Imm gran pct 0.6 % [facility] Comment: Interpretive Data Percent cell count reference ranges are not reported, since discordance with absolute values may lead to misinterpretation of CBC data. Current Interpretive Data was last revised on 2017. Lymphocyte pct 14.0 % [facility] Comment: Interpretive Data Percent cell count reference ranges are not reported, since discordance with absolute values may lead to misinterpretation of CBC data. Current Interpretive Data was last revised on 2017. Monocyte pct 10.6 % [facility] Comment: Interpretive Data Percent cell count reference ranges are not reported, since discordance with absolute values may lead to misinterpretation of CBC data. Current Interpretive Data was last revised on 2017. Eosinophil pct 5.3 % [facility] Comment: Interpretive Data Percent cell count reference ranges are not reported, since discordance with absolute values may lead to misinterpretation of CBC data. Current Interpretive Data was last revised on 2017. Basophil pct 1.4 % [facility] Comment: Interpretive Data Percent cell count reference ranges are not reported, since discordance with absolute values may lead to misinterpretation of CBC data. Current Interpretive Data was last revised on 2017. Blood 04/08/2024 12:5 2 AM TECHNICAL SUPPORT SPECIALIST 04/08/2024 1:05 AM TECHNICAL SUPPORT SPECIALIST Tara Ram MD LAB BLOOD ORDERABLES Final Result Performing Organization Address [facility]/ZIP Co de Phone Number [facility] [address] [place] [address] * (ABNORMAL) CBC with auto differential (04/08/2024 12:52 AM TECHNICAL SUPPORT SPECIALIST) WBC 6.4 3.8 - 9.9 K/cumm Hgb 10.5(L) 13.0 - 17.5 g/dL [facility] Hct 33.7(L) 38.9 - 50.3 % [facility] Plt 288 150 - 400 K/cumm [facility] MPV 9.1 9.1 - 12.3 fL [facility] RBC 3.74(L) 4.30 - 5.80 M/cumm [facility] MCV 90.1 81.3 - 96.4 fL [facility] MCH 28.1 27.1 - 33.3 pg [facility] MCHC 31.2(L) 32.3 - 35.7 g/dL [facility] RDW CV 12.5 11.1 - 14.9 % [facility] RDW SD 41.2 35.7 - 48.1 fL [facility] NRBC abs 0.00 0.00 - 0.01 K/cumm [facility] Blood 04/08/2024 12:5 2 AM TECHNICAL SUPPORT SPECIALIST 04/08/2024 1:05 AM TECHNICAL SUPPORT SPECIALIST Tara Ram MD LAB BLOOD ORDERABLES Final Result Performing Organization Address [facility]/ZIP Co de Phone Number [facility] [address] [place] [address] * Magnesium (04/08/2024 12:52 AM TECHNICAL SUPPORT SPECIALIST) Magnesium 2.3 1.4 - 2.5 mg/dL Blood 04/08/2024 12:5 2 AM TECHNICAL SUPPORT SPECIALIST 04/08/2024 1:05 AM TECHNICAL SUPPORT SPECIALIST Tara Ram MD LAB BLOOD ORDERABLES Final Result [facility] [address] [place] [address] * (ABNORMAL) Renal function panel (04/08/2024 12:52 AM TECHNICAL SUPPORT SPECIALIST) Pathologist [facility] Sodium 138 135 - 145 mmol/L Potassium, pl 5.0(H) 3.3 - 4.9 mmol/L [facility] Chloride 102 97 - 110 mmol/L [facility] CO2 25 22 - 32 mmol/L [facility] Anion gap 11 2 - 15 mmol/L [facility] BUN 25 6 - 25 mg/dL [facility] Creatinine 1.07 0.80 - 1.30 mg/dL [facility] Glucose 89 70 - 199 mg/dL [facility] Comment: Interpretive Data Fasting glucose [...] 2022. Calcium 9.3 8.5 - 10.3 mg/dL [facility] Phosphorus, pl 3.4 2.3 - 4.5 mg/dL [facility] Albumin 3.4(L) 3.5 - 5.0 g/dL [facility] Blood 04/08/2024 12:5 2 AM TECHNICAL SUPPORT SPECIALIST 04/08/2024 1:05 AM TECHNICAL SUPPORT SPECIALIST us Tara Ram MD LAB BLOOD ORDERABLES Final Result [facility] [address] [place] [address] * MRI Brain WO Contrast (04/08/2024 12:24 AM TECHNICAL SUPPORT SPECIALIST) Anatomical Region Laterality Modality Head and Neck N/A Magnetic Resonan ce 04/08/2024 8:48 AM TECHNICAL SUPPORT SPECIALIST Impressions 04/08/2024 10:01 AM TECHNICAL SUPPORT SPECIALIST 1. Approximately 5 punctate foci of diffusion [...] Malloy MD, PHD Narrative 04/08/2024 10:01 AM TECHNICAL SUPPORT SPECIALIST EXAMINATION: Magnetic resonance imaging (MRI) of the [...] R esult * eGFR (04/07/2024 12:51 AM TECHNICAL SUPPORT SPECIALIST) eGFR 72 >=60 mL/min/1. 73 m2 Comment: [...] reviewed 2021. Blood 04/07/2024 12:5 1 AM TECHNICAL SUPPORT SPECIALIST 04/07/2024 1:14 AM TECHNICAL SUPPORT SPECIALIST us Marissa Vitale DO LAB BLOOD ORDERABLES F inal Result [facility] [address] [place] [address] * (ABNORMAL) Differential, auto (04/07/2024 12:51 AM TECHNICAL SUPPORT SPECIALIST) Neutrophil abs 4.7 1.5 - 6.5 K/cumm Imm gran abs 0.0 0.0 - 0.1 K/cumm [facility] Lymphocyte abs 0.7(L) 0.8 - 3.3 K/cumm [facility] Monocyte abs 0.6 0.2 - 0.8 K/cumm [facility] Eosinophil abs 0.3 0.0 - 0.5 K/cumm [facility] Basophil abs 0.1 0.0 - 0.1 K/cumm [facility] Neutrophil pct 73.0 % [facility] Comment: Interpretive Data Percent cell count reference ranges are not reported, since discordance with absolute values may lead to misinterpretation of CBC data. Current Interpretive Data was last revised on 2017. Imm gran pct 0.3 % [facility] Comment: Interpretive Data Percent cell count reference ranges are not reported, since discordance with absolute values may lead to misinterpretation of CBC data. Current Interpretive Data was last revised on 2017. Lymphocyte pct 11.5 % [facility] Comment: Interpretive Data Percent cell count reference ranges are not reported, since discordance with absolute values may lead to misinterpretation of CBC data. Current Interpretive Data was last revised on 2017. Monocyte pct 9.5 % [facility] Comment: Interpretive Data Percent cell count reference ranges are not reported, since discordance with absolute values may lead to misinterpretation of CBC data. Current Interpretive Data was last revised on 2017. Eosinophil pct 4.5 % [facility] Comment: Interpretive Data Percent cell count reference ranges are not reported, since discordance with absolute values may lead to misinterpretation of CBC data. Current Interpretive Data was last revised on 2017. Basophil pct 1.2 % [facility] Comment: Interpretive Data Percent cell count reference ranges are not reported, since discordance with absolute values may lead to misinterpretation of CBC data. Current Interpretive Data was last revised on 2017. Blood 04/07/2024 12:5 1 AM TECHNICAL SUPPORT SPECIALIST 04/07/2024 1:14 AM TECHNICAL SUPPORT SPECIALIST us Marissa Vitale DO LAB BLOOD ORDERABLES F inal Result [facility] [address] [place] [address] * (ABNORMAL) CBC with auto differential (04/07/2024 12:51 AM TECHNICAL SUPPORT SPECIALIST) [facility] WBC 6.4 3.8 - 9.9 K/cumm Hgb 9.6(L) 13.0 - 17.5 g/dL [facility] Hct 29.6(L) 38.9 - 50.3 % [facility] Plt 270 150 - 400 K/cumm [facility] MPV 9.0(L) 9.1 - 12.3 fL [facility] RBC 3.35(L) 4.30 - 5.80 M/cumm [facility] MCV 88.4 81.3 - 96.4 fL [facility] MCH 28.7 27.1 - 33.3 pg [facility] MCHC 32.4 32.3 - 35.7 g/dL [facility] RDW CV 12.5 11.1 - 14.9 % [facility] RDW SD 40.3 35.7 - 48.1 fL [facility] NRBC abs 0.00 0.00 - 0.01 K/cumm [facility] Blood 04/07/2024 12:5 1 AM TECHNICAL SUPPORT SPECIALIST 04/07/2024 1:14 AM TECHNICAL SUPPORT SPECIALIST us Marissa Vitale DO LAB BLOOD ORDERABLES F inal Result [facility] [address] [place] [address] * (ABNORMAL) Renal function panel (04/07/2024 12:51 AM TECHNICAL SUPPORT SPECIALIST) [facility] Sodium 135 135 - 145 mmol/L Potassium, pl 4.4 3.3 - 4.9 mmol/L [facility] Chloride 101 97 - 110 mmol/L [facility] CO2 26 22 - 32 mmol/L [facility] Anion gap 8 2 - 15 mmol/L [facility] BUN 28(H) 6 - 25 mg/dL [facility] Creatinine 1.03 0.80 - 1.30 mg/dL [facility] Glucose 136 70 - 199 mg/dL [facility] Comment: Interpretive Data Fasting glucose [...] 2022. Calcium 8.9 8.5 - 10.3 mg/dL [facility] Phosphorus, pl 2.8 2.3 - 4.5 mg/dL [facility] Albumin 3.2(L) 3.5 - 5.0 g/dL [facility] Blood 04/07/2024 12:5 1 AM TECHNICAL SUPPORT SPECIALIST 04/07/2024 1:14 AM TECHNICAL SUPPORT SPECIALIST Marissa Vitale DO LAB BLOOD ORDERABLES F inal Result [facility] [address] [place] [address] * (ABNORMAL) Hemoglobin and hematocrit (04/06/2024 5:18 PM TECHNICAL SUPPORT SPECIALIST) Hgb 9.5(L) 13.0 - 17.5 g/dL Hct 29.0(L) 38.9 - 50.3 % [facility] Blood 04/06/2024 5:18 PM TECHNICAL SUPPORT SPECIALIST 04/06/2024 5:48 PM TECHNICAL SUPPORT SPECIALIST Marissa Moni Vitale DO LAB BLOOD ORDERABLES F inal Result [facility] [address] [place] [address] * XR Chest 1 View (04/06/2024 5:06 AM TECHNICAL SUPPORT SPECIALIST) Anatomical Region Laterality Modality Body, Chest N/A Computed Radiogr aphy 04/06/2024 9:04 AM TECHNICAL SUPPORT SPECIALIST Impressions 04/06/2024 9:04 AM TECHNICAL SUPPORT SPECIALIST Feeding tube courses below the diaphragm, loops [...] Goldstein MD, PHD Narrative 04/06/2024 9:04 AM TECHNICAL SUPPORT SPECIALIST EXAMINATION: XR CHEST 1 VIEW HISTORY: Shortness [...] Add on lab test (04/06/2024 3:29 AM TECHNICAL SUPPORT SPECIALIST) Acceptable Yes Blood 04/06/2024 3:29 AM TECHNICAL SUPPORT SPECIALIST 04/06/2024 3:30 AM TECHNICAL SUPPORT SPECIALIST Narrative [facility] - 04/06/2024 3:31 AM TECHNICAL SUPPORT SPECIALIST Name of Test->Renal function panel Pedro Senior MD LAB BLOOD ORDERABLES Final R esult Performing Organization Address [facility]/ZIP Co de Phone Number [facility] [address] [place] [address] * eGFR (04/06/2024 2:29 AM TECHNICAL SUPPORT SPECIALIST) eGFR 63 >=60 mL/min/1. 73 m2 Comment: [...] last reviewed 2021. Blood 04/06/2024 2:29 AM TECHNICAL SUPPORT SPECIALIST 04/06/2024 2:29 AM TECHNICAL SUPPORT SPECIALIST us Marissa Vitale DO LAB BLOOD ORDERABLES F inal Result Performing Organization Address [facility]/ZIP Co de Phone Number [facility] [address] [place] [address] * (ABNORMAL) Differential, auto (04/06/2024 2:29 AM TECHNICAL SUPPORT SPECIALIST) Neutrophil abs 7.5(H) 1.5 - 6.5 K/cumm Imm gran abs 0.0 0.0 - 0.1 K/cumm [facility] Lymphocyte abs 0.6(L) 0.8 - 3.3 K/cumm [facility] Monocyte abs 0.8 0.2 - 0.8 K/cumm [facility] Eosinophil abs 0.1 0.0 - 0.5 K/cumm [facility] Basophil abs 0.1 0.0 - 0.1 K/cumm [facility] Neutrophil pct 82.2 % [facility] Comment: Interpretive Data Percent cell count reference ranges are not reported, since discordance with absolute values may lead to misinterpretation of CBC data. Current Interpretive Data was last revised on 2017. Imm gran pct 0.4 % [facility] Comment: Interpretive Data Percent cell count reference ranges are not reported, since discordance with absolute values may lead to misinterpretation of CBC data. Current Interpretive Data was last revised on 2017. Lymphocyte pct 7.0 % [facility] Comment: Interpretive Data Percent cell count reference ranges are not reported, since discordance with absolute values may lead to misinterpretation of CBC data. Current Interpretive Data was last revised on 2017. Monocyte pct 8.2 % [facility] Comment: Interpretive Data Percent cell count reference ranges are not reported, since discordance with absolute values may lead to misinterpretation of CBC data. Current Interpretive Data was last revised on 2017. Eosinophil pct 1.4 % [facility] Comment: Interpretive Data Percent cell count reference ranges are not reported, since discordance with absolute values may lead to misinterpretation of CBC data. Current Interpretive Data was last revised on 2017. Basophil pct 0.8 % [facility] Comment: Interpretive Data Percent cell count reference ranges are not reported, since discordance with absolute values may lead to misinterpretation of CBC data. Current Interpretive Data was last revised on 2017. Blood 04/06/2024 2:29 AM TECHNICAL SUPPORT SPECIALIST 04/06/2024 2:29 AM TECHNICAL SUPPORT SPECIALIST us Marissa Vitale DO LAB BLOOD ORDERABLES F inal Result [facility] [address] Department of Laboratories [place], [place] [id number] * (ABNORMAL) Procalcitonin (04/06/2024 2:29 AM TECHNICAL SUPPORT SPECIALIST) Procalcitonin 0.76(H) <=0.25 ng/mL Blood 04/06/2024 2:29 AM TECHNICAL SUPPORT SPECIALIST 04/06/2024 2:29 AM TECHNICAL SUPPORT SPECIALIST Marissa Burnsjeremiah Vitale LAB BLOOD ORDERABLES F inal Result Performing Organization Address [facility] Co de Phone Number [facility] [address] [place] [address] * (ABNORMAL) CBC with auto differential (04/06/2024 2:29 AM TECHNICAL SUPPORT SPECIALIST) Pathologist [facility] WBC 9.1 3.8 - 9.9 K/cumm Hgb 9.3(L) 13.0 - 17.5 g/dL [facility] Hct 28.1(L) 38.9 - 50.3 % [facility] Plt 256 150 - 400 K/cumm [facility] MPV 9.1 9.1 - 12.3 fL [facility] RBC 3.18(L) 4.30 - 5.80 M/cumm [facility] MCV 88.4 81.3 - 96.4 fL [facility] MCH 29.2 27.1 - 33.3 pg [facility] MCHC 33.1 32.3 - 35.7 g/dL [facility] RDW CV 12.4 11.1 - 14.9 % [facility] RDW SD 40.1 35.7 - 48.1 fL [facility] NRBC abs 0.00 0.00 - 0.01 K/cumm [facility] Blood 04/06/2024 2:29 AM TECHNICAL SUPPORT SPECIALIST 04/06/2024 2:29 AM TECHNICAL SUPPORT SPECIALIST Marissa Vitale DO LAB BLOOD ORDERABLES F inal Result Performing Organization Address [facility]/ZIP Co de Phone Number [facility] [address] Department [place], [place] [id number] * (ABNORMAL) Renal function panel (04/06/2024 2:29 AM TECHNICAL SUPPORT SPECIALIST) Pathologist [facility] Sodium 128(L) 135 - 145 mmol/L Potassium, pl 4.6 3.3 - 4.9 mmol/L [facility] Chloride 96(L) 97 - 110 mmol/L [facility] CO2 20(L) 22 - 32 mmol/L [facility] Anion gap 12 2 - 15 mmol/L [facility] BUN 29(H) 6 - 25 mg/dL [facility] Creatinine 1.15 0.80 - 1.30 mg/dL [facility] Glucose 144 70 - 199 mg/dL [facility] Comment: Interpretive Data Fasting glucose [...] 2022. Calcium 8.5 8.5 - 10.3 mg/dL [facility] Phosphorus, pl 2.8 2.3 - 4.5 mg/dL [facility] Albumin 3.0(L) 3.5 - 5.0 g/dL [facility] Blood 04/06/2024 2:29 AM TECHNICAL SUPPORT SPECIALIST 04/06/2024 2:29 AM TECHNICAL SUPPORT SPECIALIST us Marissa Vitale DO LAB BLOOD ORDERABLES F inal Result [facility] [address] [place] [address] * (ABNORMAL) Blood gas, venous (04/06/2024 2:15 AM TECHNICAL SUPPORT SPECIALIST) [facility] pH, Venous 7.40 7.32 - 7.43 PCO2, Venous 37(L) 40 - 50 mmHg [facility] PO2, Venous 75 mmHg [facility] Comment: Interpretive Data No Reference Range Established Current Interpretive Data was last revised on 2017. HCO3 Venous, Calculated 23 20 - 30 mmol/L [facility] BE, venous -2 mmol/L [facility] Comment: nterpretive Data No Reference Range Established Current Interpretive Data was last revised on 2017. Blood 04/06/2024 2:15 AM TECHNICAL SUPPORT SPECIALIST 04/06/2024 2:25 AM TECHNICAL SUPPORT SPECIALIST Marissa Vitale DO LAB BLOOD ORDERABLES F inal Result Performing Organization Address [facility] Co de Phone Number [facility] [address] [place] [address] * POCT glucose (04/05/2024 12:05 PM TECHNICAL SUPPORT SPECIALIST) [facility] Glucose, POC 77 70 - 199 mg/dL Comment: For Glucose values <35 mg/dl when Hematocrit is >60 mg/dl,the test may not accurately detect significant hypoglycemia,and testing in the Laboratory should be considered if clinically indicated. Blood 04/05/2024 12:0 5 PM TECHNICAL SUPPORT SPECIALIST 04/05/2024 12:05 PM TECHNICAL SUPPORT SPECIALIST Marissa Vitale DO LAB POCT ORDERABLES - DEVICE Final Result Performing Organization Address [facility] Co de Phone Number [facility] [address] [place] [address] * XR Kub (04/05/2024 10:23 AM TECHNICAL SUPPORT SPECIALIST) Anatomical Region Laterality Modality Body, Abdomen N/A Computed Radiogr aphy 04/05/2024 10:4 4 AM TECHNICAL SUPPORT SPECIALIST Impressions 04/05/2024 10:44 AM TECHNICAL SUPPORT SPECIALIST Interval placement of a Dobbhoff catheter. Its [...] Eloisa Tineo M.D. Narrative 04/05/2024 10:44 AM TECHNICAL SUPPORT SPECIALIST EXAMINATION: KUB-abdomen one view HISTORY: Dobbhoff COMPARISON: [...] Barium Swallow W Video (04/05/2024 9:52 AM TECHNICAL SUPPORT SPECIALIST) Anatomical Region Laterality Modality Head and Neck N/A Radio Fluoroscop y 04/05/2024 10:4 6 AM TECHNICAL SUPPORT SPECIALIST Impressions 04/05/2024 2:51 PM TECHNICAL SUPPORT SPECIALIST 1. There is transglottic aspiration with thin [...] Mo Stahl M.D. Narrative 04/05/2024 2:51 PM TECHNICAL SUPPORT SPECIALIST EXAMINATION: MODIFIED BARIUM SWALLOW 04/05/2024 HISTORY: Dysphagia. [...] Result * POCT glucose (04/05/2024 4:30 AM TECHNICAL SUPPORT SPECIALIST) Glucose, POC 71 70 - 199 mg/dL Comment: For Glucose values <35 mg/dl when Hematocrit is >60 mg/dl,the test may not accurately detect significant hypoglycemia,and testing in the Laboratory should be considered if clinically indicated. Blood 04/05/2024 4:30 AM TECHNICAL SUPPORT SPECIALIST 04/05/2024 4:30 AM TECHNICAL SUPPORT SPECIALIST Krishna Salcedo MD LAB POCT ORDERABLES - DEVICE Final Result [facility] [address] [place] [address] * eGFR (04/05/2024 3:39 AM TECHNICAL SUPPORT SPECIALIST) [facility] eGFR 65 >=60 mL/min/1. 73 m2 Comment: [...] last reviewed 2021. Blood 04/05/2024 3:39 AM TECHNICAL SUPPORT SPECIALIST 04/05/2024 3:53 AM TECHNICAL SUPPORT SPECIALIST us Tian Long MD LAB BLOOD ORDERABLES Final Result [facility] [address] [place] [address] * (ABNORMAL) CBC without differential (04/05/2024 3:39 AM TECHNICAL SUPPORT SPECIALIST) [facility] WBC 8.8 3.8 - 9.9 K/cumm Hgb 10.5(L) 13.0 - 17.5 g/dL [facility] Hct 32.3(L) 38.9 - 50.3 % [facility] Plt 284 150 - 400 K/cumm [facility] MPV 8.8(L) 9.1 - 12.3 fL [facility] RBC 3.67(L) 4.30 - 5.80 M/cumm [facility] MCV 88.0 81.3 - 96.4 fL [facility] MCH 28.6 27.1 - 33.3 pg [facility] MCHC 32.5 32.3 - 35.7 g/dL [facility] RDW CV 12.3 11.1 - 14.9 % [facility] RDW SD 39.8 35.7 - 48.1 fL [facility] NRBC abs 0.00 0.00 - 0.01 K/cumm [facility] Blood 04/05/2024 3:39 AM TECHNICAL SUPPORT SPECIALIST 04/05/2024 3:53 AM TECHNICAL SUPPORT SPECIALIST Krishna Salcedo MD LAB BLOOD ORDERABLES Final R esult [facility] [address] [place] [address] * Magnesium (04/05/2024 3:39 AM TECHNICAL SUPPORT SPECIALIST) [facility] Magnesium 2.2 1.4 - 2.5 mg/dL Blood 04/05/2024 3:39 AM TECHNICAL SUPPORT SPECIALIST 04/05/2024 3:53 AM TECHNICAL SUPPORT SPECIALIST Marissa Vitale DO LAB BLOOD ORDERABLES F inal Result Performing Organization Address [facility] Co de Phone Number [facility] [address] [place] [address] * (ABNORMAL) Renal function panel (04/05/2024 3:39 AM TECHNICAL SUPPORT SPECIALIST) [facility] Sodium 131(L) 135 - 145 mmol/L Potassium, pl 4.5 3.3 - 4.9 mmol/L [facility] Chloride 97 97 - 110 mmol/L [facility] CO2 20(L) 22 - 32 mmol/L [facility] Anion gap 14 2 - 15 mmol/L [facility] BUN 19 6 - 25 mg/dL [facility] Creatinine 1.11 0.80 - 1.30 mg/dL [facility] Glucose 63(L) 70 - 199 mg/dL [facility] Comment: Interpretive Data Fasting glucose [...] 2022. Calcium 8.7 8.5 - 10.3 mg/dL [facility] Phosphorus, pl 3.3 2.3 - 4.5 mg/dL [facility] Albumin 3.3(L) 3.5 - 5.0 g/dL [facility] Blood 04/05/2024 3:39 AM TECHNICAL SUPPORT SPECIALIST 04/05/2024 3:53 AM TECHNICAL SUPPORT SPECIALIST us Tian Long MD LAB BLOOD ORDERABLES Final Result [facility] [address] [place] [address] * eGFR (04/04/2024 4:18 PM TECHNICAL SUPPORT SPECIALIST) eGFR 61 >=60 mL/min/1. 73 m2 Comment: [...] last reviewed 2021. Blood 04/04/2024 4:18 PM TECHNICAL SUPPORT SPECIALIST 04/04/2024 4:30 PM TECHNICAL SUPPORT SPECIALIST Tian Long MD LAB BLOOD ORDERABLES Final Result [facility] [address] [place] [address] * (ABNORMAL) Renal function panel (04/04/2024 4:18 PM TECHNICAL SUPPORT SPECIALIST) Sodium 131(L) 135 - 145 mmol/L Potassium, pl 4.7 3.3 - 4.9 mmol/L [facility] Chloride 99 97 - 110 mmol/L [facility] CO2 20(L) 22 - 32 mmol/L [facility] Anion gap 12 2 - 15 mmol/L [facility] BUN 22 6 - 25 mg/dL [facility] Creatinine 1.18 0.80 - 1.30 mg/dL [facility] Glucose 76 70 - 199 mg/dL [facility] Comment: Interpretive Data Fasting glucose [...] 2022. Calcium 8.6 8.5 - 10.3 mg/dL [facility] Phosphorus, pl 4.0 2.3 - 4.5 mg/dL [facility] Albumin 3.0(L) 3.5 - 5.0 g/dL [facility] Blood 04/04/2024 4:18 PM TECHNICAL SUPPORT SPECIALIST 04/04/2024 4:30 PM TECHNICAL SUPPORT SPECIALIST Tian Long MD LAB BLOOD ORDERABLES Final Result Performing Organization Address [facility] Co de Phone Number [facility] [address] [place], [place] [id number] * Sodium, urine, random (04/04/2024 6:11 AM TECHNICAL SUPPORT SPECIALIST) Sodium, ur 129 mmol/L Comment: Interpretive Data No reference range established. Current interpretive data was last revised 2018. Urine 04/04/2024 6:11 AM TECHNICAL SUPPORT SPECIALIST 04/04/2024 6:39 AM TECHNICAL SUPPORT SPECIALIST Tian Long MD LAB URINE ORDERABLES Final Result Performing Organization Address [facility] de Phone Number [facility] [address] [place], [place] [id number] * Osmolality, urine (04/04/2024 6:11 AM TECHNICAL SUPPORT SPECIALIST) Osmo, ur 549 300 - 800 mOsm/kg Urine 04/04/2024 6:11 AM TECHNICAL SUPPORT SPECIALIST 04/04/2024 6:39 AM TECHNICAL SUPPORT SPECIALIST Tian Long MD LAB URINE ORDERABLES Final Result Performing Organization Address [facility] de Phone Number [facility] [address] [place] [address] * Creatinine, urine, random (04/04/2024 6:11 AM TECHNICAL SUPPORT SPECIALIST) Creatinine Ur 71.0 mg/dL Comment: Interpretive Data No reference range established. Current interpretive data was last revised 2018. Urine 04/04/2024 6:11 AM TECHNICAL SUPPORT SPECIALIST 04/04/2024 6:39 AM TECHNICAL SUPPORT SPECIALIST Tian Long MD LAB URINE ORDERABLES Final Result Performing Organization Address [facility] Co de Phone Number [facility] [address] [place] [address] * eGFR (04/04/2024 2:56 AM TECHNICAL SUPPORT SPECIALIST) eGFR 60 >=60 mL/min/1. 73 m2 Comment: [...] last reviewed 2021. Blood 04/04/2024 2:56 AM TECHNICAL SUPPORT SPECIALIST 04/04/2024 3:16 AM TECHNICAL SUPPORT SPECIALIST Tian Long MD LAB BLOOD ORDERABLES Final Result Performing Organization Address [facility] Co de Phone Number [facility] [address] [place] [address] * (ABNORMAL) CBC without differential (04/04/2024 2:56 AM TECHNICAL SUPPORT SPECIALIST) Pathologist [facility] WBC 8.0 3.8 - 9.9 K/cumm Hgb 10.9(L) 13.0 - 17.5 g/dL [facility] Hct 32.5(L) 38.9 - 50.3 % [facility] Plt 278 150 - 400 K/cumm [facility] MPV 9.2 9.1 - 12.3 fL [facility] RBC 3.70(L) 4.30 - 5.80 M/cumm [facility] MCV 87.8 81.3 - 96.4 fL [facility] MCH 29.5 27.1 - 33.3 pg [facility] MCHC 33.5 32.3 - 35.7 g/dL [facility] RDW CV 12.6 11.1 - 14.9 % [facility] RDW SD 40.3 35.7 - 48.1 fL [facility] NRBC abs 0.00 0.00 - 0.01 K/cumm [facility] Blood 04/04/2024 2:56 AM TECHNICAL SUPPORT SPECIALIST 04/04/2024 3:16 AM TECHNICAL SUPPORT SPECIALIST Krishna Salcedo MD LAB BLOOD ORDERABLES Final R esult Performing Organization Address [facility] Co de Phone Number [facility] [address] [place] [address] * (ABNORMAL) TSH (04/04/2024 2:56 AM TECHNICAL SUPPORT SPECIALIST) [facility] Thyroid Stimulating Hormone 11.20(H) 0.30 - 4.20 mcIUnit/mL Blood 04/04/2024 2:56 AM TECHNICAL SUPPORT SPECIALIST 04/04/2024 3:16 AM TECHNICAL SUPPORT SPECIALIST Krishna Salcedo MD LAB BLOOD ORDERABLES Final R esult Performing Organization Address City/[facility] Co de Phone Number [facility] [address] [place] [address] * (ABNORMAL) Renal function panel (04/04/2024 2:56 AM TECHNICAL SUPPORT SPECIALIST) Sodium 125(L) 135 - 145 mmol/L Potassium, pl 4.6 3.3 - 4.9 mmol/L [facility] Chloride 94(L) 97 - 110 mmol/L [facility] CO2 20(L) 22 - 32 mmol/L [facility] Anion gap 11 2 - 15 mmol/L [facility] BUN 20 6 - 25 mg/dL [facility] Creatinine 1.20 0.80 - 1.30 mg/dL [facility] Glucose 70 70 - 199 mg/dL [facility] Comment: Interpretive Data Fasting glucose [...] 2022. Calcium 8.5 8.5 - 10.3 mg/dL [facility] Phosphorus, pl 3.9 2.3 - 4.5 mg/dL [facility] Albumin 3.0(L) 3.5 - 5.0 g/dL [facility] Blood 04/04/2024 2:56 AM TECHNICAL SUPPORT SPECIALIST 04/04/2024 3:16 AM TECHNICAL SUPPORT SPECIALIST us Tian Long MD LAB BLOOD ORDERABLES Final Result [facility] [address] [place] [address] * eGFR (04/03/2024 5:59 PM TECHNICAL SUPPORT SPECIALIST) eGFR 65 >=60 mL/min/1. 73 m2 Comment: [...] last reviewed 2021. Blood 04/03/2024 5:59 PM TECHNICAL SUPPORT SPECIALIST 04/03/2024 6:07 PM TECHNICAL SUPPORT SPECIALIST us Krishna Salcedo MD LAB BLOOD ORDERABLES Final R esult [facility] [address] Department [place] [address] * (ABNORMAL) Renal function panel (04/03/2024 5:59 PM TECHNICAL SUPPORT SPECIALIST) Sodium 126(L) 135 - 145 mmol/L Potassium, pl 4.6 3.3 - 4.9 mmol/L [facility] Chloride 94(L) 97 - 110 mmol/L [facility] CO2 20(L) 22 - 32 mmol/L [facility] Anion gap 12 2 - 15 mmol/L [facility] BUN 17 6 - 25 mg/dL [facility] Creatinine 1.11 0.80 - 1.30 mg/dL [facility] Glucose 93 70 - 199 mg/dL [facility] Comment: Interpretive Data Fasting glucose [...] 2022. Calcium 8.3(L) 8.5 - 10.3 mg/dL [facility] Phosphorus, pl 3.8 2.3 - 4.5 mg/dL [facility] Albumin 3.0(L) 3.5 - 5.0 g/dL [facility] Blood 04/03/2024 5:59 PM TECHNICAL SUPPORT SPECIALIST 04/03/2024 6:07 PM TECHNICAL SUPPORT SPECIALIST Krishna Salcedo MD LAB BLOOD ORDERABLES Final R esult Performing Organization Address City/[facility] Co de Phone Number [facility] [address] [place] [address] * Aerobic culture and gram stain Sputum Lung (04/03/2024 3:55 PM TECHNICAL SUPPORT SPECIALIST) Direct Specimen Exam Stain: Many polymorphonuclear leukocytes seen. Many Gram Positive Cocci Many Gram Negative Bacilli Report Final Report: Heavy growth normal krupa [facility] Sputum (Lung) 04/03/2024 3:5 5 PM TECHNICAL SUPPORT SPECIALIST 04/03/2024 4:31 PM TECHNICAL SUPPORT SPECIALIST Krishna Salcedo MD LAB MICROBIOLOGY - GENERAL O RDERABLES Final Result Performing Organization Address [facility] Co de Phone Number [facility] [address] [place] [address] * MRSA Only (Staphylococcus aureus) PCR Nasal (04/03/2024 3:55 PM TECHNICAL SUPPORT SPECIALIST) PCR Scrn, Methicillin resistant Staphylococcus aureus (MRSA) Not Detected Not Detected Comment: Interpretive Data Testing performed using Nucleic Acid Amplification with the Mobiplex Xpert MRSA NxG Assay. This assay detects target DNA from mecA, mecC and the SCCmec insertion site of Staphylococcus aureus using Real-Time PCR and has been cleared by the FDA. Performance characteristics have been verified by the [facility]. Current Interpretive Data was last revised on 2023 Nasal 04/03/2024 3:55 PM TECHNICAL SUPPORT SPECIALIST 04/03/2024 4:31 PM TECHNICAL SUPPORT SPECIALIST Krishna Salcedo MD LAB MICROBIOLOGY - GENERAL O RDERABLES Final Result Performing Organization Address City/[facility] Co de Phone Number [facility] [address] [place] [address] * Cortisol - Add on lab test (04/03/2024 2:48 PM TECHNICAL SUPPORT SPECIALIST) Acceptable Yes Blood 04/03/2024 2:48 PM TECHNICAL SUPPORT SPECIALIST 04/03/2024 2:48 PM TECHNICAL SUPPORT SPECIALIST Narrative [facility] 04/03/2024 2:48 PM TECHNICAL SUPPORT SPECIALIST Name of Test->Cortisol Tian Long MD LAB BLOOD ORDERABLES Final Result Performing Organization Address City/[facility]/ZIP Co de Phone Number [facility] [address] [facility] [place], [place] [id number] * TSH reflex Free T4 - Add on lab test (04/03/2024 2:48 PM TECHNICAL SUPPORT SPECIALIST) Acceptable Yes Blood 04/03/2024 2:48 PM TECHNICAL SUPPORT SPECIALIST 04/03/2024 2:48 PM TECHNICAL SUPPORT SPECIALIST Narrative [facility] 04/03/2024 2:48 PM TECHNICAL SUPPORT SPECIALIST Name of Test->TSH reflex Free T4 Tian Long MD LAB BLOOD ORDERABLES Final Result Performing Organization Address [facility] Co de Phone Number [facility] [address] [facility] [place], [place] [id number] * Sodium, urine, random - Add on lab test (04/03/2024 2:48 PM TECHNICAL SUPPORT SPECIALIST) Acceptable Yes Blood 04/03/2024 2:48 PM TECHNICAL SUPPORT SPECIALIST 04/03/2024 2:48 PM TECHNICAL SUPPORT SPECIALIST Narrative [facility] 04/03/2024 2:48 PM TECHNICAL SUPPORT SPECIALIST Name of Test->Sodium, urine, random Tian Long MD LAB BLOOD ORDERABLES Final Result Performing Organization Address City/[facility]/ZIP Co de Phone Number [facility] [address] Department [place], [place] [id number] * Osmolality, urine - Add on lab test (04/03/2024 2:48 PM TECHNICAL SUPPORT SPECIALIST) Acceptable Yes Blood 04/03/2024 2:48 PM TECHNICAL SUPPORT SPECIALIST 04/03/2024 2:48 PM TECHNICAL SUPPORT SPECIALIST Narrative [facility] - 04/03/2024 2:48 PM TECHNICAL SUPPORT SPECIALIST Name of Test->Osmolality, urine us Tian Long MD LAB BLOOD ORDERABLES Final Result [facility] [address] [place] [address] * TRANSTHORACIC ECHO (TTE) COMPLETE W DOPPLER/CF WO CONTRAST (04/03/2024 2:46 PM TECHNICAL SUPPORT SPECIALIST) LV EF 50-55 % CONS SCIMAGE Anatomical Region Laterality Modality Ultrasound 04/03/2024 12:2 5 PM TECHNICAL SUPPORT SPECIALIST Narrative 04/03/2024 7:33 PM TECHNICAL SUPPORT SPECIALIST [facility] [address] [place] [address] ECHOCARDIOGRAM Patient Name: GIAN LEE E : 1940 (83y 8m) Gender: M Study Date: 04/03/2024 12:25:32 PM Ht(Inch): 68 Wt(Lb): 166.01 BSA: 1.9 Pin Game Machine Inspector: CHANDU Location: [id number] Order Provider: KRISHNA SALCEDO BMI: 25.24 BP: [...] By: Gian Trevino MD 04/03/2024 7:32:32 PM TECHNICAL SUPPORT SPECIALIST Procedure Note Gian Trevino MD - 04/03/2024 [id number] [place] [address] ECHOCARDIOGRAM Patient Name: GIAN LEE E : 1940 (83y 8m) Gender: M Study Date: 04/03/2024 12:25:32 PM Ht(Inch): 68 Wt(Lb): 166.01 BSA: 1.9 Pin Game Machine Inspector: CHANDU Location: [id number] Order Provider: KRISHNA SALCEDO BMI: 25.24 BP: [...] By: Gian Trevino MD 04/03/2024 7:32:32 PM TECHNICAL SUPPORT SPECIALIST Krishna Salcedo MD CV ECHO PROCEDURES Final Res ult * (ABNORMAL) Lactate (04/03/2024 11:06 AM TECHNICAL SUPPORT SPECIALIST) [facility] Lactate 0.6(L) 0.7 - 2.0 mmol/L Blood 04/03/2024 11:0 6 AM TECHNICAL SUPPORT SPECIALIST 04/03/2024 11:15 AM TECHNICAL SUPPORT SPECIALIST Krishna Salcedo MD LAB BLOOD ORDERABLES Final R esult [facility] [address] [place] [address] * eGFR (04/03/2024 11:06 AM TECHNICAL SUPPORT SPECIALIST) eGFR 75 >=60 mL/min/1. 73 m2 Comment: [...] reviewed 2021. Blood 04/03/2024 11:0 6 AM TECHNICAL SUPPORT SPECIALIST 04/03/2024 11:23 AM TECHNICAL SUPPORT SPECIALIST us Krishna Salcedo MD LAB BLOOD ORDERABLES Final R esult [facility] [address] [place] [address] * (ABNORMAL) Pro B-type natriuretic peptide (04/03/2024 11:06 AM TECHNICAL SUPPORT SPECIALIST) NT-proBNP 1,928(H) <=450 pg/mL Comment: Interpretive Comments: [...] Date: 2017. Blood 04/03/2024 11:0 6 AM TECHNICAL SUPPORT SPECIALIST 04/03/2024 11:23 AM TECHNICAL SUPPORT SPECIALIST Krishna Salcedo MD LAB BLOOD ORDERABLES Final R esult Performing Organization Address City/[facility]/ZIP Co de Phone Number [facility] [address] [place] [address] * (ABNORMAL) Thyroid Function [place] (04/03/2024 11:06 AM TECHNICAL SUPPORT SPECIALIST) TSH 10.50(H) 0.30 - 4.20 mcIUnit/mL Blood 04/03/2024 11:0 6 AM TECHNICAL SUPPORT SPECIALIST 04/03/2024 11:23 AM TECHNICAL SUPPORT SPECIALIST Krishna Salcedo MD LAB BLOOD ORDERABLES Final R esult Performing Organization Address City/[facility]/ZIP Co de Phone Number [facility] [address] [place] [address] * (ABNORMAL) Urinalysis reflex to microscopic and culture Urine (04/03/2024 11:06 AM TECHNICAL SUPPORT SPECIALIST) Color, ur Yellow Yellow Clarity, ur Clear Clear [facility] Specific gravity, ur 1.042(H) 1.003 - 1.030 [facility] pH, urine 7.0 [facility] Comment: Interpretive Data U rine pH is affected by diet, medications, systemic acid-base disturbances, and renal tubular function. pH may affect urinary stone formation. For example, urine pH below 6.0 may help reduce the tendency for calcium phosphate stones and pH greater than 6.0 may reduce the tendency for uric acid stone formation. Source: [facility] Current Interpretive Data was last revised on 2017 Protein, ur ql Trace Negative [facility] Glucose, ur ql Negative Negative [facility] Ketones, ur Negative Negative [facility] Bilirubin, ur Negative Negative [facility] Blood, ur 3+(A) Negative [facility] Urobilinogen, ur <2.0 <2.0 mg/dL [facility] Nitrite, ur Negative Negative [facility] Leukocyte esterase, ur Negative Negative [facility] UA reflex comment Reflex to microscopic UA will be performed. [facility] Urine 04/03/2024 11:0 6 AM TECHNICAL SUPPORT SPECIALIST 04/03/2024 11:06 AM TECHNICAL SUPPORT SPECIALIST Krishna Salcedo MD LAB MICROBIOLOGY - GENERAL O RDERABLES Final Result [facility] [address] [place] [address] * Strep pneumoniae antigen, urine Urine (04/03/2024 11:06 AM TECHNICAL SUPPORT SPECIALIST) S. pneumoniae Ag Negative Negative Comment: Interpretive [...] on 2022 Urine 04/03/2024 11:0 6 AM TECHNICAL SUPPORT SPECIALIST 04/03/2024 11:32 AM TECHNICAL SUPPORT SPECIALIST Krishna Salcedo MD LAB MICROBIOLOGY - GENERAL O RDERABLES Final Result Performing Organization Address [facility] de Phone Number [facility] [address] [facility] [place] [address] * Legionella antigen Urine (04/03/2024 11:06 AM TECHNICAL SUPPORT SPECIALIST) Legionella Ag Negative Negative Comment: Interpretive Data This test detects only Legionella pneumophila serogroup 1 antigen. Current interpretive data was last revised on 2019. Urine 04/03/2024 11:0 6 AM TECHNICAL SUPPORT SPECIALIST 04/03/2024 11:32 AM TECHNICAL SUPPORT SPECIALIST Krishna Salcedo MD LAB MICROBIOLOGY - GENERAL O RDERABLES Final Result Performing Organization Address [facility] Phone Number [facility] [address] [place] [address] * Sodium, urine, random (04/03/2024 11:06 AM TECHNICAL SUPPORT SPECIALIST) Sodium, ur 145 mmol/L Comment: Interpretive Data No reference range established. Current interpretive data was last revised 2018. Urine 04/03/2024 11:0 6 AM TECHNICAL SUPPORT SPECIALIST 04/03/2024 3:13 PM TECHNICAL SUPPORT SPECIALIST Krishna Salcedo MD LAB URINE ORDERABLES Final R esult Performing Organization Address [facility] de Phone Number [facility] [address] [place] [address] * Osmolality, urine (04/03/2024 11:06 AM TECHNICAL SUPPORT SPECIALIST) Osmo, ur 526 300 - 800 mOsm/kg Urine 04/03/2024 11:0 6 AM TECHNICAL SUPPORT SPECIALIST 04/03/2024 3:14 PM TECHNICAL SUPPORT SPECIALIST Krishna Salcedo MD LAB URINE ORDERABLES Final R esult Performing Organization Address [facility] de Phone Number [facility] [address] [place] [address] * (ABNORMAL) Urinalysis, microscopic only (04/03/2024 11:06 AM TECHNICAL SUPPORT SPECIALIST) WBC, ur 0-5 0 - 5 /HPF RBC, ur >50(A) 0 - 2 /HPF [facility] Bacteria, ur Trace(A) [facility] Culture Reflex Comment Reflex conditions for urine culture (WBC >10) not met. [facility] Urine 04/03/2024 11:0 6 AM TECHNICAL SUPPORT SPECIALIST 04/03/2024 11:23 AM TECHNICAL SUPPORT SPECIALIST Krishna Salcedo MD LAB URINE ORDERABLES Final R esult Performing Organization Address [facility] Co de Phone Number [facility] [address] [facility] [place] [address] * (ABNORMAL) aPTT (04/03/2024 11:06 AM TECHNICAL SUPPORT SPECIALIST) aPTT 39(H) 28 - 38 sec Comment: Interpretive Data Heparin therapeutic range: 66.0 - 100.0 seconds. Range based on correlation with therapeutic heparin activity range of 0.3 - 0.7 Units/mL. Current interpretive data was last revised on 2022. Blood 04/03/2024 11:0 6 AM TECHNICAL SUPPORT SPECIALIST 04/03/2024 11:22 AM TECHNICAL SUPPORT SPECIALIST Krishna Salcedo MD LAB BLOOD ORDERABLES Final R esult Performing Organization Address City/[facility]/ZIP Co de Phone Number [facility] [address] [place] [address] * (ABNORMAL) Protime-INR (04/03/2024 11:06 AM TECHNICAL SUPPORT SPECIALIST) PT 17.7(H) 9.7 - 13.0 sec INR 1.62(H) 0.90 - 1.20 [facility] Comment: Interpretive data Oral anticoagulant therapeutic ranges: Venous thromboembolism prophylaxis or treatment: 2.0-3.0 CARDIOLOGY Standard range: 2.0-3.0 High-intensity range: 2.5-3.5 Refer to indication-specific guidelines for appropriate target ranges for prosthetic heart valve replacement. Current interpretive data was last revised on 2019. Blood 04/03/2024 11:0 6 AM TECHNICAL SUPPORT SPECIALIST 04/03/2024 11:22 AM TECHNICAL SUPPORT SPECIALIST Krishna Salcedo MD LAB BLOOD ORDERABLES Final R esult Performing Organization Address [facility]/ZIP Co de Phone Number [facility] [address] [place] [address] * (ABNORMAL) CBC without differential (04/03/2024 11:06 AM TECHNICAL SUPPORT SPECIALIST) WBC 8.6 3.8 - 9.9 K/cumm Hgb 10.0(L) 13.0 - 17.5 g/dL [facility] Hct 30.8(L) 38.9 - 50.3 % [facility] Plt 249 150 - 400 K/cumm [facility] MPV 9.1 9.1 - 12.3 fL [facility] RBC 3.43(L) 4.30 - 5.80 M/cumm [facility] MCV 89.8 81.3 - 96.4 fL [facility] MCH 29.2 27.1 - 33.3 pg [facility] MCHC 32.5 32.3 - 35.7 g/dL [facility] [facility] CV 12.7 11.1 - 14.9 % [facility] RDW SD 41.0 35.7 - 48.1 fL [facility] NRBC abs 0.00 0.00 - 0.01 K/cumm [facility] Blood 04/03/2024 11:0 6 AM TECHNICAL SUPPORT SPECIALIST 04/03/2024 11:23 AM TECHNICAL SUPPORT SPECIALIST Narrative [facility] - 04/03/2024 11:32 AM TECHNICAL SUPPORT SPECIALIST Baseline prior to rivaroxaban initiation Krishna Salcedo MD LAB BLOOD ORDERABLES Final R esult Performing Organization Address City/[facility]/ZIP Co de Phone Number [facility] [address] [facility] [place] [address] * Type and screen (04/03/2024 11:06 AM TECHNICAL SUPPORT SPECIALIST) ABO Rh O Positive Alex, indirect Negative [facility] Blood 04/03/2024 11:0 6 AM TECHNICAL SUPPORT SPECIALIST 04/03/2024 11:25 AM TECHNICAL SUPPORT SPECIALIST Narrative [facility] - 04/03/2024 12:03 PM TECHNICAL SUPPORT SPECIALIST Has the patient had Daratumumab or Isatuximab in the past 6 months?->Unknown Krishna Salcedo MD LAB BLOOD BANK TEST ORDERABL ES Final Result Performing Organization Address [facility] de Phone Number [facility] [address] Department [place] [address] * Uric acid (04/03/2024 11:06 AM TECHNICAL SUPPORT SPECIALIST) Uric acid 3.4 3.0 - 8.0 mg/dL Blood 04/03/2024 11:0 6 AM TECHNICAL SUPPORT SPECIALIST 04/03/2024 11:23 AM TECHNICAL SUPPORT SPECIALIST Krishna Salcedo MD LAB BLOOD ORDERABLES Final R esult Performing Organization Address [facility] de Phone Number [facility] [address] Department [place] [address] * T4, free (04/03/2024 11:06 AM TECHNICAL SUPPORT SPECIALIST) Free T4 0.95 0.90 - 1.70 ng/dL Blood 04/03/2024 11:0 6 AM TECHNICAL SUPPORT SPECIALIST 04/03/2024 11:23 AM TECHNICAL SUPPORT SPECIALIST Narrative [facility] - 04/03/2024 2:33 PM TECHNICAL SUPPORT SPECIALIST This test was reflexed from a TSH result. Krishna Salcedo MD LAB BLOOD ORDERABLES Final R esult Performing Organization Address [facility] Co de Phone Number [facility] [address] [facility] [place] [address] * Phosphorus (04/03/2024 11:06 AM TECHNICAL SUPPORT SPECIALIST) Phosphorus, pl 3.5 2.3 - 4.5 mg/dL Blood 04/03/2024 11:0 6 AM TECHNICAL SUPPORT SPECIALIST 04/03/2024 11:23 AM TECHNICAL SUPPORT SPECIALIST Krishna Salcedo MD LAB BLOOD ORDERABLES Final R esult Performing Organization Address [facility] Co de Phone Number [facility] [address] [facility] [place] [address] * Magnesium (04/03/2024 11:06 AM TECHNICAL SUPPORT SPECIALIST) Magnesium 2.0 1.4 - 2.5 mg/dL Blood 04/03/2024 11:0 6 AM TECHNICAL SUPPORT SPECIALIST 04/03/2024 11:23 AM TECHNICAL SUPPORT SPECIALIST Krishna Salcedo MD LAB BLOOD ORDERABLES Final R esult Performing Organization Address [facility] Co de Phone Number [facility] [address] [facility] [place] [address] * Cortisol (04/03/2024 11:06 AM TECHNICAL SUPPORT SPECIALIST) Cortisol 8.3 4.8 - 19.5 mcg/dl Blood 04/03/2024 11:0 6 AM TECHNICAL SUPPORT SPECIALIST 04/03/2024 11:23 AM TECHNICAL SUPPORT SPECIALIST Krishna Salcedo MD LAB BLOOD ORDERABLES Final R esult Performing Organization Address [facility] Co de Phone Number [facility] [address] Manuel Ennisyin Edmonds [facility] [place] [address] * Bilirubin, direct (04/03/2024 11:06 AM TECHNICAL SUPPORT SPECIALIST) Bilirubin, direct 0.2 0.1 - 0.3 mg/dL Blood 04/03/2024 11:0 6 AM TECHNICAL SUPPORT SPECIALIST 04/03/2024 11:23 AM TECHNICAL SUPPORT SPECIALIST us Krishna Salcedo MD LAB BLOOD ORDERABLES Final R esult [facility] [address] Department [place] [address] * (ABNORMAL) Comprehensive metabolic panel (04/03/2024 11:06 AM TECHNICAL SUPPORT SPECIALIST) Sodium 122(L) 135 - 145 mmol/L Potassium, pl 4.4 3.3 - 4.9 mmol/L [facility] Chloride 89(L) 97 - 110 mmol/L [facility] CO2 21(L) 22 - 32 mmol/L [facility] Anion gap 12 2 - 15 mmol/L [facility] BUN 17 6 - 25 mg/dL [facility] Creatinine 0.99 0.80 - 1.30 mg/dL [facility] Glucose 79 70 - 199 mg/dL [facility] Comment: Interpretive Data Fasting glucose [...] 2022. Calcium 8.1(L) 8.5 - 10.3 mg/dL [facility] Bilirubin, total 0.5 0.1 - 1.2 mg/dL [facility] Protein, pl 5.6(L) 6.5 - 8.5 g/dL [facility] Albumin 3.0(L) 3.5 - 5.0 g/dL [facility] Alk phos 67 40 - 130 Units/L [facility] ALT 19 7 - 55 Units/L [facility] AST 31 10 - 50 Units/L [facility] Blood 04/03/2024 11:0 6 AM TECHNICAL SUPPORT SPECIALIST 04/03/2024 11:23 AM TECHNICAL SUPPORT SPECIALIST Krishna Salcedo MD LAB BLOOD ORDERABLES Final R esult [facility] [address] [place] [address] * X-ray chest 1 view (Portable) (04/03/2024 10:23 AM TECHNICAL SUPPORT SPECIALIST) Anatomical Region Laterality Modality Body, Chest N/A Computed Radiogr aphy 04/03/2024 10:3 4 AM TECHNICAL SUPPORT SPECIALIST Impressions 04/03/2024 10:34 AM TECHNICAL SUPPORT SPECIALIST Persistent left pleural effusion and basilar atelectasis with improving aeration of the right lung. Electronically signed by: Isiah David M.D. Narrative 04/03/2024 10:34 AM TECHNICAL SUPPORT SPECIALIST EXAMINATION: XR CHEST 1 VIEW HISTORY: Pneumonia [...] Portable - in AM (03/27/2024 6:38 AM TECHNICAL SUPPORT SPECIALIST) Anatomical Region Laterality Modality Body, Chest N/A Computed Radiogr aphy 03/27/2024 7:33 AM TECHNICAL SUPPORT SPECIALIST Impressions 03/27/2024 7:33 AM TECHNICAL SUPPORT SPECIALIST Bibasilar atelectasis with persistent left pleural effusion. Electronically signed by: Basil Youssef M.D. Narrative 03/27/2024 7:33 AM TECHNICAL SUPPORT SPECIALIST EXAMINATION: XR CHEST 1 VIEW HISTORY: Pleural [...] Final Result * eGFR (03/27/2024 12:27 AM TECHNICAL SUPPORT SPECIALIST) eGFR 74 >=60 mL/min/1. 73 m2 Comment: [...] reviewed 2021. Blood 03/27/2024 12:2 7 AM TECHNICAL SUPPORT SPECIALIST 03/27/2024 1:07 AM TECHNICAL SUPPORT SPECIALIST us Ale Mcknight AUTOMOBILE SALES REPRESENTATIVE LAB BLOOD ORDERABLES Fin al Result [facility] [address] Department [place] [address] * (ABNORMAL) CBC without differential (03/27/2024 12:27 AM TECHNICAL SUPPORT SPECIALIST) WBC 8.8 3.8 - 9.9 K/cumm Hgb 9.5(L) 13.0 - 17.5 g/dL [facility] Hct 29.3(L) 38.9 - 50.3 % [facility] Plt 138(L) 150 - 400 K/cumm [facility] MPV 9.7 9.1 - 12.3 fL [facility] RBC 3.18(L) 4.30 - 5.80 M/cumm [facility] MCV 92.1 81.3 - 96.4 fL [facility] MCH 29.9 27.1 - 33.3 pg [facility] MCHC 32.4 32.3 - 35.7 g/dL [facility] RDW CV 12.9 11.1 - 14.9 % [facility] RDW SD 43.4 35.7 - 48.1 fL [facility] NRBC abs 0.00 0.00 - 0.01 K/cumm [facility] Blood 03/27/2024 12:2 7 AM TECHNICAL SUPPORT SPECIALIST 03/27/2024 1:07 AM TECHNICAL SUPPORT SPECIALIST Ale Mcknight AUTOMOBILE SALES REPRESENTATIVE LAB BLOOD ORDERABLES Fin al Result Performing Organization Address City/[facility]/ZIP Co de Phone Number [facility] [address] [place] [address] * Magnesium (03/27/2024 12:27 AM TECHNICAL SUPPORT SPECIALIST) [facility] Magnesium 2.1 1.4 - 2.5 mg/dL Blood 03/27/2024 12:2 7 AM TECHNICAL SUPPORT SPECIALIST 03/27/2024 1:07 AM TECHNICAL SUPPORT SPECIALIST Ale Rangeljessica Mcknight AUTOMOBILE SALES REPRESENTATIVE LAB BLOOD ORDERABLES Fin al Result Performing Organization Address [facility] de Phone Number [facility] [address] [facility] [place] [address] * (ABNORMAL) Renal function panel (03/27/2024 12:27 AM TECHNICAL SUPPORT SPECIALIST) [facility] Sodium 134(L) 135 - 145 mmol/L Potassium, pl 4.3 3.3 - 4.9 mmol/L [facility] Chloride 101 97 - 110 mmol/L [facility] CO2 24 22 - 32 mmol/L [facility] Anion gap 9 2 - 15 mmol/L [facility] BUN 16 6 - 25 mg/dL [facility] Creatinine 1.00 0.80 - 1.30 mg/dL [facility] Glucose 112 70 - 199 mg/dL [facility] Comment: Interpretive Data Fasting glucose [...] 2022. Calcium 8.4(L) 8.5 - 10.3 mg/dL [facility] Phosphorus, pl 4.0 2.3 - 4.5 mg/dL [facility] Albumin 3.1(L) 3.5 - 5.0 g/dL [facility] Blood 03/27/2024 12:2 7 AM TECHNICAL SUPPORT SPECIALIST 03/27/2024 1:07 AM TECHNICAL SUPPORT SPECIALIST us Ale Mcknight AUTOMOBILE SALES REPRESENTATIVE LAB BLOOD ORDERABLES Fin al Result [facility] [address] Department [place] [address] * (ABNORMAL) Urinalysis reflex to microscopic and culture Urine (03/26/2024 11:53 AM TECHNICAL SUPPORT SPECIALIST) Color, ur Yellow Yellow Clarity, ur Clear Clear [facility] Specific gravity, ur 1.031(H) 1.003 - 1.030 [facility] pH, urine 6.0 [facility] Comment: Interpretive Data U rine pH is affected by diet, medications, systemic acid-base disturbances, and renal tubular function. pH may affect urinary stone formation. For example, urine pH below 6.0 may help reduce the tendency for calcium phosphate stones and pH greater than 6.0 may reduce the tendency for uric acid stone formation. Source: [facility] Current Interpretive Data was last revised on 2017 Protein, ur ql 1+(A) Negative [facility] Glucose, ur ql Negative Negative [facility] Ketones, ur Negative Negative [facility] Bilirubin, ur Negative Negative [facility] Blood, ur Negative Negative [facility] Urobilinogen, ur 2.0(A) <2.0 mg/dL [facility] Nitrite, ur Negative Negative [facility] Leukocyte esterase, ur 2+(A) Negative [facility] UA reflex comment Reflex to microscopic UA will be performed. [facility] Urine 03/26/2024 11:5 3 AM TECHNICAL SUPPORT SPECIALIST 03/26/2024 11:53 AM TECHNICAL SUPPORT SPECIALIST us Benny SOLIS LAB MICROBIOLOGY - GENERAL O RDERABLES Final Result Performing Organization Address [facility] Co de Phone Number [facility] [address] Department [place] [address] * (ABNORMAL) Urinalysis, microscopic only (03/26/2024 11:53 AM TECHNICAL SUPPORT SPECIALIST) WBC, ur 6-10(A) 0 - 5 /HPF RBC, ur 3-5(A) 0 - 2 /HPF [facility] Epithelial cells, squamous, ur 1-5 0 - 5 /HPF [facility] Mucous, ur Present(A) [facility] Culture Reflex Comment Reflex conditions for urine culture (WBC >10) not met. [facility] Urine 03/26/2024 11:5 3 AM TECHNICAL SUPPORT SPECIALIST 03/26/2024 12:04 PM TECHNICAL SUPPORT SPECIALIST us Benny SOLIS LAB URINE ORDERABLES Final R esult Performing Organization Address [facility] Co de Phone Number [facility] [address] [place] [address] * XR Chest 1 View - Portable - in AM (03/26/2024 6:06 AM TECHNICAL SUPPORT SPECIALIST) Anatomical Region Laterality Modality Body, Chest N/A Computed Radiogr aphy 03/26/2024 7:40 AM TECHNICAL SUPPORT SPECIALIST Impressions 03/26/2024 7:40 AM TECHNICAL SUPPORT SPECIALIST Comparison 03/25/2024 5:47 AM. Median sternotomy wires are intact. Right internal jugular central venous catheter tip at superior cavoatrial junction. Cardiomediastinal silhouette stable. Aortic valve replacement again noted. Moderate left and mild right bibasilar atelectasis and small left pleural effusion again noted. No pulmonary edema seen. No pneumothorax seen. Electronically signed by: Dion Pinto M.D. Narrative 03/26/2024 7:40 AM TECHNICAL SUPPORT SPECIALIST EXAMINATION: Chest 1 view Procedure Note Dion [...] signed by: Dion Pinto M.D. Ale Mcknight AUTOMOBILE SALES REPRESENTATIVE IMG XR PROCEDURES Final Result * eGFR (03/26/2024 12:27 AM TECHNICAL SUPPORT SPECIALIST) eGFR 65 >=60 mL/min/1. 73 m2 Comment: [...] reviewed 2021. Blood 03/26/2024 12:2 7 AM TECHNICAL SUPPORT SPECIALIST 03/26/2024 12:50 AM TECHNICAL SUPPORT SPECIALIST Ale Mcknight NP LAB BLOOD ORDERABLES Fin al Result [facility] [address] Department [place] [address] * (ABNORMAL) CBC without differential (03/26/2024 12:27 AM TECHNICAL SUPPORT SPECIALIST) Pathologist [facility] WBC 10.0(H) 3.8 - 9.9 K/cumm Hgb 9.8(L) 13.0 - 17.5 g/dL [facility] Hct 29.2(L) 38.9 - 50.3 % [facility] Plt 162 150 - 400 K/cumm [facility] MPV 9.1 9.1 - 12.3 fL [facility] RBC 3.22(L) 4.30 - 5.80 M/cumm [facility] MCV 90.7 81.3 - 96.4 fL [facility] MCH 30.4 27.1 - 33.3 pg [facility] MCHC 33.6 32.3 - 35.7 g/dL [facility] RDW CV 12.9 11.1 - 14.9 % [facility] RDW SD 42.5 35.7 - 48.1 fL [facility] NRBC abs 0.00 0.00 - 0.01 K/cumm [facility] Blood 03/26/2024 12:2 7 AM TECHNICAL SUPPORT SPECIALIST 03/26/2024 12:50 AM TECHNICAL SUPPORT SPECIALIST Ale Mcknight AUTOMOBILE SALES REPRESENTATIVE LAB BLOOD ORDERABLES Fin al Result Performing Organization Address City/[facility]/ZIP Co de Phone Number [facility] [address] [facility] [place] [address] * Magnesium (03/26/2024 12:27 AM TECHNICAL SUPPORT SPECIALIST) Pathologist [facility] Magnesium 2.0 1.4 - 2.5 mg/dL Blood 03/26/2024 12:2 7 AM TECHNICAL SUPPORT SPECIALIST 03/26/2024 12:50 AM TECHNICAL SUPPORT SPECIALIST Ale Mcknight AUTOMOBILE SALES REPRESENTATIVE LAB BLOOD ORDERABLES Fin al Result Performing Organization Address City/[facility]/ZIP Co de Phone Number [facility] [address] [place] [address] * (ABNORMAL) Renal function panel (03/26/2024 12:27 AM TECHNICAL SUPPORT SPECIALIST) Pathologist [facility] Sodium 135 135 - 145 mmol/L Potassium, pl 4.2 3.3 - 4.9 mmol/L [facility] Chloride 100 97 - 110 mmol/L [facility] CO2 23 22 - 32 mmol/L [facility] Anion gap 12 2 - 15 mmol/L [facility] BUN 16 6 - 25 mg/dL [facility] Creatinine 1.12 0.80 - 1.30 mg/dL [facility] Glucose 100 70 - 199 mg/dL [facility] Comment: Interpretive Data Fasting glucose [...] 2022. Calcium 8.3(L) 8.5 - 10.3 mg/dL [facility] Phosphorus, pl 3.8 2.3 - 4.5 mg/dL [facility] Albumin 3.3(L) 3.5 - 5.0 g/dL [facility] Blood 03/26/2024 12:2 7 AM TECHNICAL SUPPORT SPECIALIST 03/26/2024 12:50 AM TECHNICAL SUPPORT SPECIALIST Ale Mcknight NP LAB BLOOD ORDERABLES Fin al Result [facility] [address] Department [place] [address] * XR Chest 1 View - Portable - in AM (03/25/2024 5:49 AM TECHNICAL SUPPORT SPECIALIST) Anatomical Region Laterality Modality Body, Chest N/A Computed Radiogr aphy 03/25/2024 8:22 AM TECHNICAL SUPPORT SPECIALIST Impressions 03/25/2024 8:22 AM TECHNICAL SUPPORT SPECIALIST Comparison is made to chest radiograph dated [...] Farzana Guzman M.D. Narrative 03/25/2024 8:22 AM TECHNICAL SUPPORT SPECIALIST EXAMINATION: 1 view chest radiograph Procedure Note [...] signed by: Farzana Guzman M.D. Ale Mcknight AUTOMOBILE SALES REPRESENTATIVE IMG XR PROCEDURES Final Result * eGFR (03/25/2024 1:33 AM TECHNICAL SUPPORT SPECIALIST) eGFR 76 >=60 mL/min/1. 73 m2 Comment: [...] last reviewed 2021. Blood 03/25/2024 1:33 AM TECHNICAL SUPPORT SPECIALIST 03/25/2024 1:55 AM TECHNICAL SUPPORT SPECIALIST Ale Mcknight AUTOMOBILE SALES REPRESENTATIVE LAB BLOOD ORDERABLES Fin al Result Performing Organization Address [facility] Co de Phone Number [facility] [address] [place] [address] * (ABNORMAL) CBC without differential (03/25/2024 1:33 AM TECHNICAL SUPPORT SPECIALIST) Pathologist [facility] WBC 9.0 3.8 - 9.9 K/cumm Hgb 9.3(L) 13.0 - 17.5 g/dL [facility] Hct 28.0(L) 38.9 - 50.3 % [facility] Plt 131(L) 150 - 400 K/cumm [facility] MPV 9.8 9.1 - 12.3 fL [facility] RBC 3.08(L) 4.30 - 5.80 M/cumm [facility] MCV 90.9 81.3 - 96.4 fL [facility] MCH 30.2 27.1 - 33.3 pg [facility] MCHC 33.2 32.3 - 35.7 g/dL [facility] RDW CV 12.9 11.1 - 14.9 % [facility] RDW SD 42.4 35.7 - 48.1 fL [facility] NRBC abs 0.00 0.00 - 0.01 K/cumm [facility] Blood 03/25/2024 1:33 AM TECHNICAL SUPPORT SPECIALIST 03/25/2024 1:55 AM TECHNICAL SUPPORT SPECIALIST Ale Mcknight AUTOMOBILE SALES REPRESENTATIVE LAB BLOOD ORDERABLES Fin al Result Performing Organization Address [facility]/ZIP Co de Phone Number [facility] [address] [place], [place] [id number] * Type and screen (03/25/2024 1:33 AM TECHNICAL SUPPORT SPECIALIST) Pathologist [facility] ABO Rh O Positive Alex, indirect Negative [facility] Blood 03/25/2024 1:33 AM TECHNICAL SUPPORT SPECIALIST 03/25/2024 2:03 AM TECHNICAL SUPPORT SPECIALIST Narrative [facility] - 03/25/2024 2:34 AM TECHNICAL SUPPORT SPECIALIST Has the patient had Daratumumab or Isatuximab in the past 6 months?->Unknown Ale Mcknight AUTOMOBILE SALES REPRESENTATIVE LAB BLOOD BANK TEST ORDE WILLOW Final Result Performing Organization Address City/[facility]/ZIP Co de Phone Number [facility] [address] [place] [address] * Magnesium (03/25/2024 1:33 AM TECHNICAL SUPPORT SPECIALIST) [facility] Magnesium 2.0 1.4 - 2.5 mg/dL Blood 03/25/2024 1:33 AM TECHNICAL SUPPORT SPECIALIST 03/25/2024 1:55 AM TECHNICAL SUPPORT SPECIALIST Ale Mcknight AUTOMOBILE SALES REPRESENTATIVE LAB BLOOD ORDERABLES Fin al Result Performing Organization Address [facility] Co de Phone Number [facility] [address] [place] [address] * (ABNORMAL) Renal function panel (03/25/2024 1:33 AM TECHNICAL SUPPORT SPECIALIST) Pathologist [facility] Sodium 132(L) 135 - 145 mmol/L Potassium, pl 4.6 3.3 - 4.9 mmol/L [facility] Chloride 99 97 - 110 mmol/L [facility] CO2 22 22 - 32 mmol/L [facility] Anion gap 11 2 - 15 mmol/L [facility] BUN 16 6 - 25 mg/dL [facility] Creatinine 0.98 0.80 - 1.30 mg/dL [facility] Glucose 104 70 - 199 mg/dL [facility] Comment: Interpretive Data Fasting glucose [...] 2022. Calcium 8.0(L) 8.5 - 10.3 mg/dL [facility] Phosphorus, pl 2.8 2.3 - 4.5 mg/dL [facility] Albumin 2.8(L) 3.5 - 5.0 g/dL [facility] Blood 03/25/2024 1:33 AM TECHNICAL SUPPORT SPECIALIST 03/25/2024 1:55 AM TECHNICAL SUPPORT SPECIALIST us Ale Mcknight NP LAB BLOOD ORDERABLES Fin al Result [facility] [address] [place] [address] * XR Chest 1 View - Portable - in AM (03/24/2024 8:05 AM TECHNICAL SUPPORT SPECIALIST) Anatomical Region Laterality Modality Body, Chest N/A Computed Radiogr aphy 03/24/2024 8:15 AM TECHNICAL SUPPORT SPECIALIST Impressions 03/24/2024 8:15 AM TECHNICAL SUPPORT SPECIALIST Single view chest exam is compared to [...] Williams Murillo M.D. Narrative 03/24/2024 8:15 AM TECHNICAL SUPPORT SPECIALIST EXAMINATION: XR CHEST 1 VIEW History: Pleural [...] Final Result * eGFR (03/24/2024 2:16 AM TECHNICAL SUPPORT SPECIALIST) eGFR 73 >=60 mL/min/1. 73 m2 Comment: [...] last reviewed 2021. Blood 03/24/2024 2:16 AM TECHNICAL SUPPORT SPECIALIST 03/24/2024 2:21 AM TECHNICAL SUPPORT SPECIALIST Ale Mcknight NP LAB BLOOD ORDERABLES Fin al Result [facility] [address] Department of Laboratories [place], [place] [id number] * (ABNORMAL) CBC without differential (03/24/2024 2:16 AM TECHNICAL SUPPORT SPECIALIST) [facility] WBC 7.5 3.8 - 9.9 K/cumm Hgb 9.6(L) 13.0 - 17.5 g/dL [facility] Hct 28.7(L) 38.9 - 50.3 % [facility] Plt 143(L) 150 - 400 K/cumm [facility] MPV 9.5 9.1 - 12.3 fL [facility] RBC 3.19(L) 4.30 - 5.80 M/cumm [facility] MCV 90.0 81.3 - 96.4 fL [facility] MCH 30.1 27.1 - 33.3 pg [facility] MCHC 33.4 32.3 - 35.7 g/dL [facility] RDW CV 12.7 11.1 - 14.9 % [facility] RDW SD 41.8 35.7 - 48.1 fL [facility] NRBC abs 0.00 0.00 - 0.01 K/cumm [facility] Blood 03/24/2024 2:16 AM TECHNICAL SUPPORT SPECIALIST 03/24/2024 2:21 AM TECHNICAL SUPPORT SPECIALIST Ale Mcknight AUTOMOBILE SALES REPRESENTATIVE LAB BLOOD ORDERABLES Fin al Result Performing Organization Address [facility] Co de Phone Number [facility] [address] [facility] [place] [address] * Magnesium (03/24/2024 2:16 AM TECHNICAL SUPPORT SPECIALIST) [facility] Magnesium 2.2 1.4 - 2.5 mg/dL Blood 03/24/2024 2:16 AM TECHNICAL SUPPORT SPECIALIST 03/24/2024 2:21 AM TECHNICAL SUPPORT SPECIALIST Ale Mcknight AUTOMOBILE SALES REPRESENTATIVE LAB BLOOD ORDERABLES Fin al Result Performing Organization Address [facility] Co de Phone Number [facility] [address] [place] [address] * (ABNORMAL) Renal function panel (03/24/2024 2:16 AM TECHNICAL SUPPORT SPECIALIST) Sodium 134(L) 135 - 145 mmol/L Potassium, pl 4.2 3.3 - 4.9 mmol/L [facility] Chloride 103 97 - 110 mmol/L [facility] CO2 22 22 - 32 mmol/L [facility] Anion gap 9 2 - 15 mmol/L [facility] BUN 16 6 - 25 mg/dL [facility] Creatinine 1.01 0.80 - 1.30 mg/dL [facility] Glucose 103 70 - 199 mg/dL [facility] Comment: Interpretive Data Fasting glucose [...] 2022. Calcium 8.3(L) 8.5 - 10.3 mg/dL [facility] Phosphorus, pl 2.2(L) 2.3 - 4.5 mg/dL [facility] Albumin 2.9(L) 3.5 - 5.0 g/dL [facility] Blood 03/24/2024 2:16 AM TECHNICAL SUPPORT SPECIALIST 03/24/2024 2:21 AM TECHNICAL SUPPORT SPECIALIST Ale Mcknight NP LAB BLOOD ORDERABLES Fin al Result [facility] [address] Department of Laboratories [place], [place] [id number] * XR Chest 1 View - Portable - in AM (03/23/2024 6:41 AM TECHNICAL SUPPORT SPECIALIST) Anatomical Region Laterality Modality Body, Chest N/A Computed Radiogr aphy 03/23/2024 8:08 AM TECHNICAL SUPPORT SPECIALIST Impressions 03/23/2024 8:08 AM TECHNICAL SUPPORT SPECIALIST 1. Obscuration of the left hemidiaphragm likely related to a pleural effusion. 2. Otherwise grossly negative postoperative chest radiograph. COMMENT: Please see above for additional findings. Electronically signed by: Mo Stahl M.D. Narrative 03/23/2024 8:08 AM TECHNICAL SUPPORT SPECIALIST Chest Radiograph, 1 view HISTORY: pleural effusion, [...] signed by: Mo Stahl M.D. Ale Mcknight AUTOMOBILE SALES REPRESENTATIVE IMG XR PROCEDURES Final Result * Critical Care (03/23/2024 6:36 AM TECHNICAL SUPPORT SPECIALIST) Narrative Mauri Odell MD - 03/23/2024 6:36 AM TECHNICAL SUPPORT SPECIALIST Ale Mcknight NP 03/23/2024 8:54 AM Critical Care Performed by: Ale Mcknight NP Authorized by: Ale Mcknight NP CRITICAL CARE: Team: [facility] CT Shift: AM Level of Billing: Subsequent [...] plan with the patient's team and other medical/senior consumer insights consultant staff. This time was in addition [...] Final Result * eGFR (03/23/2024 1:16 AM TECHNICAL SUPPORT SPECIALIST) eGFR 77 >=60 mL/min/1. 73 m2 Comment: [...] last reviewed 2021. Blood 03/23/2024 1:16 AM TECHNICAL SUPPORT SPECIALIST 03/23/2024 1:35 AM TECHNICAL SUPPORT SPECIALIST Result [facility] Brenda Mayberry AUTOMOBILE SALES REPRESENTATIVE LAB BLOOD ORDERABLES Final Result Performing Organization Address [facility] Co de Phone Number [facility] [address] [place] [address] * (ABNORMAL) Calcium, ionized (03/23/2024 1:16 AM TECHNICAL SUPPORT SPECIALIST) Calcium, Ionized 4.40(L) 4.50 - 5.10 mg/dL Blood 03/23/2024 1:16 AM TECHNICAL SUPPORT SPECIALIST 03/23/2024 1:23 AM TECHNICAL SUPPORT SPECIALIST Gena Jane AUTOMOBILE SALES REPRESENTATIVE LAB BLOOD ORDERABLES Hamida l Result Performing Organization Address [facility] de Phone Number [facility] [address] [facility] [place], [place] [id number] * Protime-INR (03/23/2024 1:16 AM TECHNICAL SUPPORT SPECIALIST) PT 11.7 9.7 - 13.0 sec INR 1.08 0.90 - 1.20 [facility] Comment: Interpretive data Oral anticoagulant therapeutic ranges: Venous thromboembolism prophylaxis or treatment: 2.0-3.0 CARDIOLOGY Standard range: 2.0-3.0 High-intensity range: 2.5-3.5 Refer to indication-specific guidelines for appropriate target ranges for prosthetic heart valve replacement. Current interpretive data was last revised on 2019. Blood 03/23/2024 1:16 AM TECHNICAL SUPPORT SPECIALIST 03/23/2024 1:35 AM TECHNICAL SUPPORT SPECIALIST Gena Jane AUTOMOBILE SALES REPRESENTATIVE LAB BLOOD ORDERABLES Hamida l Result Performing Organization Address [facility] Co de Phone Number [facility] [address] [facility] [place] [address] * (ABNORMAL) CBC without differential (03/23/2024 1:16 AM TECHNICAL SUPPORT SPECIALIST) WBC 8.3 3.8 - 9.9 K/cumm Hgb 10.2(L) 13.0 - 17.5 g/dL [facility] Hct 31.4(L) 38.9 - 50.3 % [facility] Plt 130(L) 150 - 400 K/cumm [facility] MPV 9.6 9.1 - 12.3 fL [facility] RBC 3.42(L) 4.30 - 5.80 M/cumm [facility] MCV 91.8 81.3 - 96.4 fL [facility] MCH 29.8 27.1 - 33.3 pg [facility] MCHC 32.5 32.3 - 35.7 g/dL [facility] RDW CV 12.9 11.1 - 14.9 % [facility] RDW SD 43.1 35.7 - 48.1 fL [facility] NRBC abs 0.00 0.00 - 0.01 K/cumm [facility] Blood 03/23/2024 1:16 AM TECHNICAL SUPPORT SPECIALIST 03/23/2024 1:36 AM TECHNICAL SUPPORT SPECIALIST Ale Mcknight AUTOMOBILE SALES REPRESENTATIVE LAB BLOOD ORDERABLES Fin al Result Performing Organization Address City/[facility] Co de Phone Number [facility] [address] [employer] [place], [place] [id number] * Magnesium (03/23/2024 1:16 AM TECHNICAL SUPPORT SPECIALIST) Pathologist [facility] Magnesium 2.2 1.4 - 2.5 mg/dL Comment:Reviewed Blood 03/23/2024 1:16 AM TECHNICAL SUPPORT SPECIALIST 03/23/2024 1:35 AM TECHNICAL SUPPORT SPECIALIST Ale Mcknight AUTOMOBILE SALES REPRESENTATIVE LAB BLOOD ORDERABLES Fin al Result [facility] [address] [facility] [place] [address] * (ABNORMAL) Renal function panel (03/23/2024 1:16 AM TECHNICAL SUPPORT SPECIALIST) Sodium 134(L) 135 - 145 mmol/L Potassium, pl 4.5 3.3 - 4.9 mmol/L [facility] Chloride 100 97 - 110 mmol/L [facility] CO2 21(L) 22 - 32 mmol/L [facility] Anion gap 13 2 - 15 mmol/L [facility] BUN 13 6 - 25 mg/dL [facility] Creatinine 0.97 0.80 - 1.30 mg/dL [facility] Glucose 79 70 - 199 mg/dL [facility] Comment: Interpretive Data Fasting glucose [...] 2022. Calcium 8.2(L) 8.5 - 10.3 mg/dL [facility] Phosphorus, pl 3.3 2.3 - 4.5 mg/dL [facility] Albumin 2.9(L) 3.5 - 5.0 g/dL [facility] Blood 03/23/2024 1:16 AM TECHNICAL SUPPORT SPECIALIST 03/23/2024 1:35 AM TECHNICAL SUPPORT SPECIALIST Ale Mcknight NP LAB BLOOD ORDERABLES Fin al Result [facility] [address] [place] [address] * Critical Care (03/22/2024 8:16 PM TECHNICAL SUPPORT SPECIALIST) Narrative Mauri Odell MD - 03/22/2024 8:16 PM TECHNICAL SUPPORT SPECIALIST Gena Jane NP 03/23/2024 4:04 AM Critical Care Performed by: Gena Jane NP Authorized by: Gena Jane NP CRITICAL CARE: Team: [facility] CT Shift: PM Level of Billing: Subsequent [...] plan with the patient's team and other medical/senior consumer insights consultant staff. This time was in addition [...] laboratory results, and imaging us Gena Jane AUTOMOBILE SALES REPRESENTATIVE IN CLINIC/BEDSIDE ORDERAB LES Final Result * POCT glucose (03/22/2024 6:38 PM TECHNICAL SUPPORT SPECIALIST) [facility] Glucose, POC 96 70 - 199 mg/dL Comment: For Glucose values <35 mg/dl when Hematocrit is >60 mg/dl,the test may not accurately detect significant hypoglycemia,and testing in the Laboratory should be considered if clinically indicated. Blood 03/22/2024 6:38 PM TECHNICAL SUPPORT SPECIALIST 03/22/2024 6:38 PM TECHNICAL SUPPORT SPECIALIST us Basil Adhikari MD LAB POCT ORDERABLES - DE VICE Final Result [facility] [address] [place] [address] * eGFR (03/22/2024 6:30 PM TECHNICAL SUPPORT SPECIALIST) [facility] eGFR 76 >=60 mL/min/1. 73 m2 Comment: [...] last reviewed 2021. Blood 03/22/2024 6:30 PM TECHNICAL SUPPORT SPECIALIST 03/22/2024 6:42 PM TECHNICAL SUPPORT SPECIALIST Sara Bardalesey AUTOMOBILE SALES REPRESENTATIVE LAB BLOOD ORDERABLES Final Result Performing Organization Address [facility] de Phone Number [facility] [address] [place] [address] * (ABNORMAL) Calcium, ionized (03/22/2024 6:30 PM TECHNICAL SUPPORT SPECIALIST) Calcium, Ionized 4.40(L) 4.50 - 5.10 mg/dL Blood 03/22/2024 6:30 PM TECHNICAL SUPPORT SPECIALIST 03/22/2024 6:42 PM TECHNICAL SUPPORT SPECIALIST Sara Bardalesey AUTOMOBILE SALES REPRESENTATIVE LAB BLOOD ORDERABLES Final Result Performing Organization Address [facility] de Phone Number [facility] [address] [place] [address] * aPTT (03/22/2024 6:30 PM TECHNICAL SUPPORT SPECIALIST) aPTT 30 28 - 38 sec Comment: Interpretive Data Heparin therapeutic range: 66.0 - 100.0 seconds. Range based on correlation with therapeutic heparin activity range of 0.3 - 0.7 Units/mL. Current interpretive data was last revised on 2022. Blood 03/22/2024 6:30 PM TECHNICAL SUPPORT SPECIALIST 03/22/2024 6:42 PM TECHNICAL SUPPORT SPECIALIST Sara Bardalesey AUTOMOBILE SALES REPRESENTATIVE LAB BLOOD ORDERABLES Final Result Performing Organization Address [facility] de Phone Number [facility] [address] [place] [address] * Protime-INR (03/22/2024 6:30 PM TECHNICAL SUPPORT SPECIALIST) [facility] PT 12.8 9.7 - 13.0 sec INR 1.18 0.90 - 1.20 [facility] Comment: Interpretive data Oral anticoagulant therapeutic ranges: Venous thromboembolism prophylaxis or treatment: 2.0-3.0 CARDIOLOGY Standard range: 2.0-3.0 High-intensity range: 2.5-3.5 Refer to indication-specific guidelines for appropriate target ranges for prosthetic heart valve replacement. Current interpretive data was last revised on 2019. Blood 03/22/2024 6:30 PM TECHNICAL SUPPORT SPECIALIST 03/22/2024 6:42 PM TECHNICAL SUPPORT SPECIALIST Sara Edwards AUTOMOBILE SALES REPRESENTATIVE LAB BLOOD ORDERABLES Final Result [facility] [address] [place] [address] * (ABNORMAL) CBC without differential (03/22/2024 6:30 PM TECHNICAL SUPPORT SPECIALIST) [facility] WBC 9.6 3.8 - 9.9 K/cumm Hgb 9.9(L) 13.0 - 17.5 g/dL [facility] Hct 29.4(L) 38.9 - 50.3 % [facility] Plt 107(L) 150 - 400 K/cumm [facility] MPV 9.5 9.1 - 12.3 fL [facility] RBC 3.23(L) 4.30 - 5.80 M/cumm [facility] MCV 91.0 81.3 - 96.4 fL [facility] MCH 30.7 27.1 - 33.3 pg [facility] MCHC 33.7 32.3 - 35.7 g/dL [facility] RDW CV 12.7 11.1 - 14.9 % [facility] RDW SD 42.5 35.7 - 48.1 fL [facility] NRBC abs 0.00 0.00 - 0.01 K/cumm [facility] Blood 03/22/2024 6:30 PM TECHNICAL SUPPORT SPECIALIST 03/22/2024 6:42 PM TECHNICAL SUPPORT SPECIALIST Sara Bardalesey AUTOMOBILE SALES REPRESENTATIVE LAB BLOOD ORDERABLES Final Result Performing Organization Address City/[facility] Co de Phone Number [facility] [address] [facility] [place] [address] * Magnesium (03/22/2024 6:30 PM TECHNICAL SUPPORT SPECIALIST) [facility] Magnesium 1.7 1.4 - 2.5 mg/dL Blood 03/22/2024 6:30 PM TECHNICAL SUPPORT SPECIALIST 03/22/2024 6:42 PM TECHNICAL SUPPORT SPECIALIST [facility] LAB BLOOD ORDERABLES Final Result Performing Organization Address [facility] de Phone Number [facility] [address] [facility] [place] [address] * (ABNORMAL) Renal function panel (03/22/2024 6:30 PM TECHNICAL SUPPORT SPECIALIST) Pathologist [facility] Sodium 133(L) 135 - 145 mmol/L Potassium, pl 4.1 3.3 - 4.9 mmol/L [facility] Chloride 101 97 - 110 mmol/L [facility] CO2 20(L) 22 - 32 mmol/L [facility] Anion gap 12 2 - 15 mmol/L [facility] BUN 15 6 - 25 mg/dL [facility] Creatinine 0.98 0.80 - 1.30 mg/dL [facility] Glucose 89 70 - 199 mg/dL [facility] Comment: Interpretive Data Fasting glucose [...] 2022. Calcium 7.5(L) 8.5 - 10.3 mg/dL [facility] Phosphorus, pl 3.0 2.3 - 4.5 mg/dL [facility] Albumin 2.8(L) 3.5 - 5.0 g/dL [facility] Blood 03/22/2024 6:30 PM TECHNICAL SUPPORT SPECIALIST 03/22/2024 6:42 PM TECHNICAL SUPPORT SPECIALIST us Sara Edwards NP LAB BLOOD ORDERABLES Final Result [facility] [address] [place] [address] * Critical Care (03/22/2024 5:43 PM TECHNICAL SUPPORT SPECIALIST) Narrative Mauri Odell MD - 03/22/2024 5:43 PM TECHNICAL SUPPORT SPECIALIST Sara Edwards NP 03/22/2024 5:52 PM Critical Care Performed by: Sara Edwards NP Authorized by: Sara Edwards NP CRITICAL CARE: Team: [facility] CT Shift: AM Level of Billing: Critical [...] plan with the ICU team and other medical/senior consumer insights consultant staff, making frequent assessments and decisions [...] Final Result * REVAS ENDOVASILIAC W STNT [id number] (03/22/2024 4:52 PM TECHNICAL SUPPORT SPECIALIST) Anatomical Region Laterality Modality X-Ray Angiograph y Narrative 03/22/2024 4:54 PM TECHNICAL SUPPORT SPECIALIST Please see OpNote for result. Basil Adhikari MD CV CARDIAC CATH PROCEDUR ES Final Result * (ABNORMAL) POC Activated Clotting Time, High Range (03/22/2024 4:51 PM TECHNICAL SUPPORT SPECIALIST) Pathologist [facility] ACT 139(H) 87 - 138 sec Blood 03/22/2024 4:51 PM TECHNICAL SUPPORT SPECIALIST 03/22/2024 4:51 PM TECHNICAL SUPPORT SPECIALIST Basil Adhikari MD LAB BLOOD ORDERABLES Fin al Result [facility] [address] [place] [address] * (ABNORMAL) POC Blood Gas and Chemistries, Venous - (03/22/2024 4:29 PM TECHNICAL SUPPORT SPECIALIST) Pathologist [facility] pH, Boyd POC 7.31(L) 7.32 - 7.45 pCO2, boyd POC 48 40 - 50 mmHg [facility] pO2, boyd POC 64(H) 35 - 42 mmHg [facility] Na, POC 129(L) 135 - 145 mmol/L [facility] K POC 4.1 3.3 - 4.9 mmol/L [facility] Comment: Interpretive Data This method is not able to assess for hemolysis, which may falsely increase potassium concentrations. If further testing is needed to evaluate this result, consider in-laboratory plasma potassium. Current Interpretive Data was last revised on 2021. Cl, POC 101 97 - 110 mmol/L [facility] Ionized Ca, POC 4.62 4.50 - 5.10 mg/dL [facility] Glucose, POC 95 70 - 199 mg/dL [facility] Lactate, POC 0.7 0.0 - 2.0 mmol/L [facility] O2Hb, Boyd POC 90.2 90.0 - 95.0 % [facility] Carboxhgb fract 1.9 0.0 - 2.9 % [facility] Methemoglobin 1.3 0.0 - 1.9 % [facility] HHb, POC 6.6(H) 0.0 - 5.0 % [facility] O2 Sat, Boyd POC (Shayne) 93(H) 68 - 77 % [facility] Total CO2, boyd POC 26 22 - 32 mmol/L [facility] Base excess, boyd POC -2.2 mmol/L [facility] HCO3, Boyd POC 23 20 - 30 mmol/L [facility] Hct, POC 30.0(L) 38.9 - 50.3 % [facility] Total Hb, POC 9.9(L) 13.0 - 17.5 g/dL [facility] Blood 03/22/2024 4:29 PM TECHNICAL SUPPORT SPECIALIST 03/22/2024 4:29 PM TECHNICAL SUPPORT SPECIALIST Basil Adhikari MD LAB POCT ORDERABLES - DE VICE Final Result Performing Organization Address [facility]/ZIP Co de Phone Number [facility] [address] [facility] [place], [place] [phone] * (ABNORMAL) POC Activated Clotting Time, High Range (03/22/2024 4:10 PM TECHNICAL SUPPORT SPECIALIST) ACT 386(H) 87 - 138 sec Blood 03/22/2024 4:10 PM TECHNICAL SUPPORT SPECIALIST 03/22/2024 4:10 PM TECHNICAL SUPPORT SPECIALIST Basil Adhikari MD LAB BLOOD ORDERABLES Fin al Result [facility] [address] [facility] [place] [address] * (ABNORMAL) POC Activated Clotting Time, High Range (03/22/2024 4:00 PM TECHNICAL SUPPORT SPECIALIST) ACT 174(H) 87 - 138 sec Blood 03/22/2024 4:00 PM TECHNICAL SUPPORT SPECIALIST 03/22/2024 4:00 PM TECHNICAL SUPPORT SPECIALIST Basil Adhikari MD LAB BLOOD ORDERABLES Fin al Result Performing Organization Address [facility] Co ma Phone Number [facility] [address] [place] [address] * (ABNORMAL) POC Activated Clotting Time, High Range (03/22/2024 3:56 PM TECHNICAL SUPPORT SPECIALIST) ACT 145(H) 87 - 138 sec Blood 03/22/2024 3:56 PM TECHNICAL SUPPORT SPECIALIST 03/22/2024 3:56 PM TECHNICAL SUPPORT SPECIALIST Result [facility] Basil Adhikari MD LAB BLOOD ORDERABLES Fin al Result Performing Organization Address [facility] Phone Number [facility] [address] [facility] [place] [address] * (ABNORMAL) POC Activated Clotting Time, High Range (03/22/2024 3:28 PM TECHNICAL SUPPORT SPECIALIST) ACT 457(H) 87 - 138 sec Blood 03/22/2024 3:28 PM TECHNICAL SUPPORT SPECIALIST 03/22/2024 3:28 PM TECHNICAL SUPPORT SPECIALIST Result [facility] Basil Adhikari MD LAB BLOOD ORDERABLES Fin al Result Performing Organization Address [facility] de Phone Number [facility] [address] [place] [address] * (ABNORMAL) POCT Activated clotting time, low range (03/22/2024 3:21 PM TECHNICAL SUPPORT SPECIALIST) ACT >400(H) 123 - 168 sec Blood 03/22/2024 3:21 PM TECHNICAL SUPPORT SPECIALIST 03/22/2024 3:21 PM TECHNICAL SUPPORT SPECIALIST Basil Adhikari MD LAB POCT ORDERABLES - DE VICE Final Result Performing Organization Address [facility] de Phone Number [facility] [address] [place] [address] * [place] AN ELECTIVE ENDOTRACHEAL AIRWAY, [place] AN PROCEDURE PLACEHOLDER (03/22/2024 3:08 PM TECHNICAL SUPPORT SPECIALIST) Gamal Robbins MD PhD - 03/22/2024 3:08 PM TECHNICAL SUPPORT SPECIALIST Gamal Asher MD PhD 03/22/2024 3:09 PM [...] Prepare RBC: 2 Units (03/22/2024 2:42 PM TECHNICAL SUPPORT SPECIALIST) Product code [id number] Unit Number [id number] 8-* [facility] Product Blood Type [facility] Dispense Status RETURNED [facility] Product code [id number] [facility] Unit Number [id number] 6-K [facility] Product Blood Type [facility] Dispense Status RETURNED [facility] Blood 03/22/2024 2:42 PM TECHNICAL SUPPORT SPECIALIST Narrative [facility] - 03/26/2024 7:31 AM TECHNICAL SUPPORT SPECIALIST Are special requirements needed? (All products are leukoreduced and CMV- safe)- >No Date required:-[id number] LRRBC # of [id number] Reasons:-Intra-op transfusion} us Gamal Asher MD PhD BLOOD BANK PRODUCT ORDER AMARA Final Result [facility] [address] [place] [address] * XR Chest 1 View - Portable - in AM (03/22/2024 7:26 AM TECHNICAL SUPPORT SPECIALIST) Anatomical Region Laterality Modality Body, Chest N/A Computed Radiogr aphy 03/22/2024 8:08 AM TECHNICAL SUPPORT SPECIALIST Impressions 03/22/2024 8:08 AM TECHNICAL SUPPORT SPECIALIST Comparison is made to 03/21/2024. Right jugular [...] Ruy Hager M.D. Narrative 03/22/2024 8:08 AM TECHNICAL SUPPORT SPECIALIST Examination: Chest 1 view Procedure Note Ruy [...] by: Ruy Hager M.D. us Ale Mcknight AUTOMOBILE SALES REPRESENTATIVE IMG XR PROCEDURES Final Result * eGFR (03/22/2024 1:34 AM TECHNICAL SUPPORT SPECIALIST) eGFR 73 >=60 mL/min/1. 73 m2 Comment: [...] last reviewed 2021. Blood 03/22/2024 1:34 AM TECHNICAL SUPPORT SPECIALIST 03/22/2024 2:00 AM TECHNICAL SUPPORT SPECIALIST Brenda Mayberry NP LAB BLOOD ORDERABLES Final Result [facility] [address] [place] [address] * (ABNORMAL) CBC without differential (03/22/2024 1:34 AM TECHNICAL SUPPORT SPECIALIST) WBC 9.0 3.8 - 9.9 K/cumm Hgb 10.2(L) 13.0 - 17.5 g/dL [facility] Hct 30.6(L) 38.9 - 50.3 % [facility] Plt 111(L) 150 - 400 K/cumm [facility] MPV 10.1 9.1 - 12.3 fL [facility] RBC 3.41(L) 4.30 - 5.80 M/cumm [facility] MCV 89.7 81.3 - 96.4 fL [facility] MCH 29.9 27.1 - 33.3 pg [facility] MCHC 33.3 32.3 - 35.7 g/dL [facility] RDW CV 12.8 11.1 - 14.9 % [facility] RDW SD 42.0 35.7 - 48.1 fL [facility] NRBC abs 0.00 0.00 - 0.01 K/cumm [facility] Blood 03/22/2024 1:34 AM TECHNICAL SUPPORT SPECIALIST 03/22/2024 2:00 AM TECHNICAL SUPPORT SPECIALIST Ale Mcknight AUTOMOBILE SALES REPRESENTATIVE LAB BLOOD ORDERABLES Fin al Result Performing Organization Address City/[facility]/ZIP Co de Phone Number [facility] [address] [place] [address] * Type and screen (03/22/2024 1:34 AM TECHNICAL SUPPORT SPECIALIST) Alex, indirect Negative ABO Rh O Positive [facility] Blood 03/22/2024 1:34 AM TECHNICAL SUPPORT SPECIALIST 03/22/2024 1:56 AM TECHNICAL SUPPORT SPECIALIST Narrative [facility] - 03/22/2024 2:43 AM TECHNICAL SUPPORT SPECIALIST Has the patient had Daratumumab or Isatuximab in the past 6 months?->Unknown Ale Mcknight AUTOMOBILE SALES REPRESENTATIVE LAB BLOOD BANK TEST ORDE RABLES Final Result Performing Organization Address [facility] Co de Phone Number [facility] [address] [place] [address] * Magnesium (03/22/2024 1:34 AM TECHNICAL SUPPORT SPECIALIST) Pathologist [facility] Magnesium 1.9 1.4 - 2.5 mg/dL Blood 03/22/2024 1:34 AM TECHNICAL SUPPORT SPECIALIST 03/22/2024 2:00 AM TECHNICAL SUPPORT SPECIALIST Ale Mcknight AUTOMOBILE SALES REPRESENTATIVE LAB BLOOD ORDERABLES Fin al Result Performing Organization Address City/[facility]/ZIP Co de Phone Number [facility] [address] Department [place], [place] [id number] * (ABNORMAL) Renal function panel (03/22/2024 1:34 AM TECHNICAL SUPPORT SPECIALIST) Sodium 130(L) 135 - 145 mmol/L Potassium, pl 4.1 3.3 - 4.9 mmol/L [facility] Chloride 96(L) 97 - 110 mmol/L [facility] CO2 21(L) 22 - 32 mmol/L [facility] Anion gap 13 2 - 15 mmol/L [facility] BUN 17 6 - 25 mg/dL [facility] Creatinine 1.01 0.80 - 1.30 mg/dL [facility] Glucose 94 70 - 199 mg/dL [facility] Comment: Interpretive Data Fasting glucose [...] 2022. Calcium 8.3(L) 8.5 - 10.3 mg/dL [facility] Phosphorus, pl 2.8 2.3 - 4.5 mg/dL [facility] Albumin 3.2(L) 3.5 - 5.0 g/dL [facility] Blood 03/22/2024 1:34 AM TECHNICAL SUPPORT SPECIALIST 03/22/2024 2:00 AM TECHNICAL SUPPORT SPECIALIST Ale Mcknight NP LAB BLOOD ORDERABLES [facility] al Result [facility] [address] [place] [address] * (ABNORMAL) aPTT (03/21/2024 8:12 PM TECHNICAL SUPPORT SPECIALIST) aPTT 43(H) 28 - 38 sec Comment: Interpretive Data Heparin therapeutic range: 66.0 - 100.0 seconds. Range based on correlation with therapeutic heparin activity range of 0.3 - 0.7 Units/mL. Current interpretive data was last revised on 2022. Blood 03/21/2024 8:12 PM TECHNICAL SUPPORT SPECIALIST 03/21/2024 8:17 PM TECHNICAL SUPPORT SPECIALIST Narrative [facility] - 03/21/2024 8:26 PM TECHNICAL SUPPORT SPECIALIST STAT PTT timing: - Draw 6 hours [...] SOLIS LAB BLOOD ORDERABLES Final R esult [facility] [address] [place] [address] * (ABNORMAL) aPTT (03/21/2024 12:40 PM TECHNICAL SUPPORT SPECIALIST) [facility] Signature aPTT 47(H) 28 - 38 sec Comment: Interpretive Data Heparin therapeutic range: 66.0 - 100.0 seconds. Range based on correlation with therapeutic heparin activity range of 0.3 - 0.7 Units/mL. Current interpretive data was last revised on 2022. Blood 03/21/2024 12:4 0 PM TECHNICAL SUPPORT SPECIALIST 03/21/2024 12:44 PM TECHNICAL SUPPORT SPECIALIST Narrative [facility] - 03/21/2024 1:11 PM TECHNICAL SUPPORT SPECIALIST STAT PTT timing: - Draw 6 hours [...] ORDERABLES Final R esult Performing Organization Address [facility] Co de Phone Number [facility] [address] [place] [address] * aPTT (03/21/2024 10:35 AM TECHNICAL SUPPORT SPECIALIST) aPTT 37 28 - 38 sec Comment: Interpretive Data Heparin therapeutic range: 66.0 - 100.0 seconds. Range based on correlation with therapeutic heparin activity range of 0.3 - 0.7 Units/mL. Current interpretive data was last revised on 2022. Blood 03/21/2024 10:3 5 AM TECHNICAL SUPPORT SPECIALIST 03/21/2024 10:41 AM TECHNICAL SUPPORT SPECIALIST Basil Adhikari MD LAB BLOOD ORDERABLES Fin al Result Performing Organization Address [facility] Co de Phone Number [facility] [address] [place] [address] * XR Chest 1 View - Portable - in AM (03/21/2024 7:43 AM TECHNICAL SUPPORT SPECIALIST) Anatomical Region Laterality Modality Body, Chest N/A Computed Radiogr aphy 03/21/2024 7:47 AM TECHNICAL SUPPORT SPECIALIST Impressions 03/21/2024 7:47 AM TECHNICAL SUPPORT SPECIALIST Right internal jugular central venous catheter terminates in the superior cavoatrial junction. Median sternotomy. Aortic valve replacement. Calcified atherosclerotic aorta. Mild cardiomegaly is unchanged. There is bibasilar subsegmental atelectasis, unchanged from the prior examination. Questionable small left pleural effusion is also unchanged. No pneumothorax. Electronically signed by: Manuel Mike M.D. Narrative 03/21/2024 7:47 AM TECHNICAL SUPPORT SPECIALIST PORTABLE CHEST RADIOGRAPH INDICATION: pleural effusion COMPARISON: [...] by: Manuel Mike M.D. us Ale Mcknight AUTOMOBILE SALES REPRESENTATIVE IMG XR PROCEDURES Final Result * (ABNORMAL) aPTT (03/21/2024 2:27 AM TECHNICAL SUPPORT SPECIALIST) aPTT 60(H) 28 - 38 sec Comment: Interpretive Data Heparin therapeutic range: 66.0 - 100.0 seconds. Range based on correlation with therapeutic heparin activity range of 0.3 - 0.7 Units/mL. Current interpretive data was last revised on 2022. Blood 03/21/2024 2:27 AM TECHNICAL SUPPORT SPECIALIST 03/21/2024 2:52 AM TECHNICAL SUPPORT SPECIALIST Narrative [facility] - 03/21/2024 3:10 AM TECHNICAL SUPPORT SPECIALIST STAT PTT timing: - Draw 6 hours [...] SOLIS LAB BLOOD ORDERABLES Final R esult [facility] [address] Department [place] [address] * eGFR (03/21/2024 2:24 AM TECHNICAL SUPPORT SPECIALIST) [facility] eGFR 77 >=60 mL/min/1. 73 m2 Comment: [...] last reviewed 2021. Blood 03/21/2024 2:24 AM TECHNICAL SUPPORT SPECIALIST 03/21/2024 2:52 AM TECHNICAL SUPPORT SPECIALIST us Brenda Mayberry AUTOMOBILE SALES REPRESENTATIVE LAB BLOOD ORDERABLES Final Result [facility] [address] Department [place] [address] * (ABNORMAL) CBC without differential (03/21/2024 2:24 AM TECHNICAL SUPPORT SPECIALIST) [facility] WBC 10.9(H) 3.8 - 9.9 K/cumm Hgb 11.1(L) 13.0 - 17.5 g/dL [facility] Hct 32.9(L) 38.9 - 50.3 % [facility] Plt 97(L) 150 - 400 K/cumm [facility] MPV 10.2 9.1 - 12.3 fL [facility] RBC 3.68(L) 4.30 - 5.80 M/cumm [facility] MCV 89.4 81.3 - 96.4 fL [facility] MCH 30.2 27.1 - 33.3 pg [facility] MCHC 33.7 32.3 - 35.7 g/dL [facility] RDW CV 12.7 11.1 - 14.9 % [facility] RDW SD 41.5 35.7 - 48.1 fL [facility] NRBC abs 0.00 0.00 - 0.01 K/cumm [facility] Blood 03/21/2024 2:24 AM TECHNICAL SUPPORT SPECIALIST 03/21/2024 2:52 AM TECHNICAL SUPPORT SPECIALIST Ale Mcknigth AUTOMOBILE SALES REPRESENTATIVE LAB BLOOD ORDERABLES Fin al Result [facility] [address] [place] [address] * Magnesium (03/21/2024 2:24 AM TECHNICAL SUPPORT SPECIALIST) [facility] Magnesium 1.8 1.4 - 2.5 mg/dL Blood 03/21/2024 2:24 AM TECHNICAL SUPPORT SPECIALIST 03/21/2024 2:52 AM TECHNICAL SUPPORT SPECIALIST Ale Mcknight AUTOMOBILE SALES REPRESENTATIVE LAB BLOOD ORDERABLES Fin al Result Performing Organization Address City/[facility]/ZIP Co de Phone Number [facility] [address] [place] [address] * (ABNORMAL) Renal function panel (03/21/2024 2:24 AM TECHNICAL SUPPORT SPECIALIST) Pathologist [facility] Sodium 128(L) 135 - 145 mmol/L Potassium, pl 4.0 3.3 - 4.9 mmol/L [facility] Chloride 96(L) 97 - 110 mmol/L [facility] CO2 21(L) 22 - 32 mmol/L [facility] Anion gap 11 2 - 15 mmol/L [facility] BUN 18 6 - 25 mg/dL [facility] Creatinine 0.97 0.80 - 1.30 mg/dL [facility] Glucose 108 70 - 199 mg/dL [facility] Comment: Interpretive Data Fasting glucose [...] 2022. Calcium 8.4(L) 8.5 - 10.3 mg/dL [facility] Phosphorus, pl 1.8(L) 2.3 - 4.5 mg/dL [facility] Albumin 3.4(L) 3.5 - 5.0 g/dL [facility] Blood 03/21/2024 2:24 AM TECHNICAL SUPPORT SPECIALIST 03/21/2024 2:52 AM TECHNICAL SUPPORT SPECIALIST Ale Mcknight NP LAB BLOOD ORDERABLES Fin al Result [facility] [address] Department [place] [address] * (ABNORMAL) aPTT (03/20/2024 4:57 PM TECHNICAL SUPPORT SPECIALIST) aPTT 48(H) 28 - 38 sec Comment: Interpretive Data Heparin therapeutic range: 66.0 - 100.0 seconds. Range based on correlation with therapeutic heparin activity range of 0.3 - 0.7 Units/mL. Current interpretive data was last revised on 2022. Blood 03/20/2024 4:57 PM TECHNICAL SUPPORT SPECIALIST 03/20/2024 5:16 PM TECHNICAL SUPPORT SPECIALIST Narrative [facility] - 03/20/2024 5:33 PM TECHNICAL SUPPORT SPECIALIST STAT PTT timing: - Draw 6 hours [...] Benny SOLIS LAB BLOOD ORDERABLES Final R [facility] Performing Organization Address [facility] Co de Phone Number [facility] [address] [facility] [place] [address] * aPTT (03/20/2024 9:27 AM TECHNICAL SUPPORT SPECIALIST) aPTT 34 28 - 38 sec Comment: Interpretive Data Heparin therapeutic range: 66.0 - 100.0 seconds. Range based on correlation with therapeutic heparin activity range of 0.3 - 0.7 Units/mL. Current interpretive data was last revised on 2022. Blood 03/20/2024 9:27 AM TECHNICAL SUPPORT SPECIALIST 03/20/2024 9:41 AM TECHNICAL SUPPORT SPECIALIST Narrative [facility] - 03/20/2024 9:57 AM TECHNICAL SUPPORT SPECIALIST Baseline prior to heparin initiation Benny SOLIS LAB BLOOD ORDERABLES Final R [facility] Performing Organization Address [facility] de Phone Number [facility] [address] [facility] [place] [address] * (ABNORMAL) Protime-INR (03/20/2024 9:27 AM TECHNICAL SUPPORT SPECIALIST) Pathologist [facility] PT 14.9(H) 9.7 - 13.0 sec INR 1.37(H) 0.90 - 1.20 [facility] Comment: Interpretive data Oral anticoagulant therapeutic ranges: Venous thromboembolism prophylaxis or treatment: 2.0-3.0 CARDIOLOGY Standard range: 2.0-3.0 High-intensity range: 2.5-3.5 Refer to indication-specific guidelines for appropriate target ranges for prosthetic heart valve replacement. Current interpretive data was last revised on 2019. Blood 03/20/2024 9:27 AM TECHNICAL SUPPORT SPECIALIST 03/20/2024 9:41 AM TECHNICAL SUPPORT SPECIALIST Narrative [facility] - 03/20/2024 9:57 AM TECHNICAL SUPPORT SPECIALIST Baseline prior to heparin initiation us Benny SOLIS LAB BLOOD ORDERABLES Final R esult [facility] [address] Department [place] [address] * XR Chest 1 View - Portable - in AM (03/20/2024 9:17 AM TECHNICAL SUPPORT SPECIALIST) Anatomical Region Laterality Modality Body, Chest N/A Computed Radiogr aphy 03/20/2024 2:59 PM TECHNICAL SUPPORT SPECIALIST Impressions 03/20/2024 2:59 PM TECHNICAL SUPPORT SPECIALIST Comparison is made to prior examination 03/19/2024. Unchanged median sternotomy wires and aortic valve replacement. Right internal jugular central venous catheter tip overlies superior caval atrial junction. Surgical drain is in place. Stable to minimally increased bibasilar opacities favored represent atelectasis with possible small left pleural effusion. No pneumothorax. Unchanged cardiomegaly. Electronically signed by: Gian Henriquez M.D. Narrative 03/20/2024 2:59 PM TECHNICAL SUPPORT SPECIALIST EXAMINATION: XR CHEST 1 VIEW Procedure Note [...] by: Gian Henriquez M.D. us Ale Mcknight AUTOMOBILE SALES REPRESENTATIVE IMG XR PROCEDURES Final Result * eGFR (03/20/2024 1:03 AM TECHNICAL SUPPORT SPECIALIST) eGFR 72 >=60 mL/min/1. 73 m2 Comment: [...] last reviewed 2021. Blood 03/20/2024 1:03 AM TECHNICAL SUPPORT SPECIALIST 03/20/2024 1:33 AM TECHNICAL SUPPORT SPECIALIST Brenda Mayberry NP LAB BLOOD ORDERABLES Final Result [facility] [address] [facility] [place], [place] [id number] * Calcium, ionized (03/20/2024 1:03 AM TECHNICAL SUPPORT SPECIALIST) Calcium, Ionized 4.80 4.50 - 5.10 mg/dL Blood 03/20/2024 1:03 AM TECHNICAL SUPPORT SPECIALIST 03/20/2024 1:11 AM TECHNICAL SUPPORT SPECIALIST Brenda Mayberry NP LAB BLOOD ORDERABLES Final Result [facility] [address] [facility] [place], [place] [id number] * (ABNORMAL) CBC without differential (03/20/2024 1:03 AM TECHNICAL SUPPORT SPECIALIST) WBC 12.7(H) 3.8 - 9.9 K/cumm Hgb 12.2(L) 13.0 - 17.5 g/dL [facility] Hct 35.9(L) 38.9 - 50.3 % [facility] Plt 104(L) 150 - 400 K/cumm [facility] MPV 10.0 9.1 - 12.3 fL [facility] RBC 4.04(L) 4.30 - 5.80 M/cumm [facility] MCV 88.9 81.3 - 96.4 fL [facility] MCH 30.2 27.1 - 33.3 pg [facility] MCHC 34.0 32.3 - 35.7 g/dL [facility] RDW CV 12.8 11.1 - 14.9 % [facility] RDW SD 41.5 35.7 - 48.1 fL [facility] NRBC abs 0.00 0.00 - 0.01 K/cumm [facility] Blood 03/20/2024 1:03 AM TECHNICAL SUPPORT SPECIALIST 03/20/2024 1:33 AM TECHNICAL SUPPORT SPECIALIST Ale Mcknight AUTOMOBILE SALES REPRESENTATIVE LAB BLOOD ORDERABLES Fin al Result Performing Organization Address City/[facility]/ZIP Co de Phone Number [facility] [address] [facility] [place], [place] [id number] * Magnesium (03/20/2024 1:03 AM TECHNICAL SUPPORT SPECIALIST) [facility] Magnesium 2.0 1.4 - 2.5 mg/dL Blood 03/20/2024 1:03 AM TECHNICAL SUPPORT SPECIALIST 03/20/2024 1:33 AM TECHNICAL SUPPORT SPECIALIST Ale Mcknight AUTOMOBILE SALES REPRESENTATIVE LAB BLOOD ORDERABLES Fin al Result [facility] [address] [facility] [place] [address] * (ABNORMAL) Renal function panel (03/20/2024 1:03 AM TECHNICAL SUPPORT SPECIALIST) Sodium 132(L) 135 - 145 mmol/L Potassium, pl 4.5 3.3 - 4.9 mmol/L [facility] Chloride 99 97 - 110 mmol/L [facility] CO2 21(L) 22 - 32 mmol/L [facility] Anion gap 12 2 - 15 mmol/L [facility] BUN 17 6 - 25 mg/dL [facility] Creatinine 1.03 0.80 - 1.30 mg/dL [facility] Glucose 119 70 - 199 mg/dL [facility] Comment: Interpretive Data Fasting glucose [...] 2022. Calcium 8.8 8.5 - 10.3 mg/dL [facility] Phosphorus, pl 2.7 2.3 - 4.5 mg/dL [facility] Albumin 3.6 3.5 - 5.0 g/dL [facility] Blood 03/20/2024 1:03 AM TECHNICAL SUPPORT SPECIALIST 03/20/2024 1:33 AM TECHNICAL SUPPORT SPECIALIST Ale Mcknight NP LAB BLOOD ORDERABLES Fin al Result [facility] [address] [place] [address] * Prepare RBC: 2 Units (03/19/2024 4:56 PM TECHNICAL SUPPORT SPECIALIST) Product code [id number] [facility] Unit Number [id number] 2-F [facility] Product Blood Type OPOS [facility] Dispense Status RETURNED [facility] Product code [id number] Unit Number [id number] 3-Q [facility] Product Blood Type OPOS [facility] Dispense Status RETURNED [facility] Blood 03/19/2024 4:56 PM TECHNICAL SUPPORT SPECIALIST Narrative [facility] - 03/19/2024 5:48 PM TECHNICAL SUPPORT SPECIALIST Specify Procedure:->iliac stent Are special requirements needed? (All products are leukoreduced and CMV- safe)- >No Date required:-[id number] LRRBC # of [id number] Reasons:-Hold for procedure (specify procedure)} us Basil Adhikari MD BLOOD BANK PRODUCT ORDER AMARA Final Result [facility] [address] Department [place] [address] * CTA Abdomen Pelvis (03/19/2024 9:06 AM TECHNICAL SUPPORT SPECIALIST) Anatomical Region Laterality Modality Body N/A Computed Tomogra phy 03/19/2024 12:2 8 PM TECHNICAL SUPPORT SPECIALIST Impressions 03/19/2024 12:49 PM TECHNICAL SUPPORT SPECIALIST 1. Left common iliac artery aneurysm measuring [...] Josr Lindsey M.D. Narrative 03/19/2024 12:49 PM TECHNICAL SUPPORT SPECIALIST EXAMINATION: CT ANGIOGRAPHY OF THE ABDOMEN AND [...] by: Josr Lindsey M.D. us Brenda Mayberry AUTOMOBILE SALES REPRESENTATIVE IMG CT PROCEDURES Final Re sult * Potassium (03/19/2024 6:48 AM TECHNICAL SUPPORT SPECIALIST) [facility] Potassium, pl 4.7 3.3 - 4.9 mmol/L Blood 03/19/2024 6:48 AM TECHNICAL SUPPORT SPECIALIST 03/19/2024 7:04 AM TECHNICAL SUPPORT SPECIALIST Brenda Mayberry NP LAB BLOOD ORDERABLES Final Result [facility] [address] [place] [address] * Critical Care (03/19/2024 6:40 AM TECHNICAL SUPPORT SPECIALIST) Narrative Gian Robertson MD - 03/19/2024 6:40 AM TECHNICAL SUPPORT SPECIALIST Brenda Mayberry NP 03/19/2024 10:29 AM Critical Care Performed by: Brenda Mayberry NP Authorized by: Brenda Mayberry NP CRITICAL CARE: Team: [facility] CT Shift: AM Level of Billing: Subsequent [...] plan with the patient's team and other medical/senior consumer insights consultant staff. This time was in addition to and separate from care provided by other practitioners on this day of service. us Brenda Mayberry NP IN CLINIC/BEDSIDE ORDERABL ES Final Result * XR Chest 1 View - Portable - in AM (03/19/2024 6:37 AM TECHNICAL SUPPORT SPECIALIST) Anatomical Region Laterality Modality Body, Chest N/A Computed Radiogr aphy 03/19/2024 7:56 AM TECHNICAL SUPPORT SPECIALIST Impressions 03/19/2024 7:56 AM TECHNICAL SUPPORT SPECIALIST Comparison is made to prior chest radiograph [...] Josselin Xavier M.D. Narrative 03/19/2024 7:56 AM TECHNICAL SUPPORT SPECIALIST EXAMINATION: XR CHEST 1 VIEW Procedure Note [...] by: Josselin Xavier M.D. us Ale Mcknight AUTOMOBILE SALES REPRESENTATIVE IMG XR PROCEDURES Final Result * POCT glucose (03/19/2024 6:01 AM TECHNICAL SUPPORT SPECIALIST) [facility] Signature Glucose, POC 110 70 - 199 mg/dL Comment: For Glucose values <35 mg/dl when Hematocrit is >60 mg/dl,the test may not accurately detect significant hypoglycemia,and testing in the Laboratory should be considered if clinically indicated. Blood 03/19/2024 6:01 AM TECHNICAL SUPPORT SPECIALIST 03/19/2024 6:01 AM TECHNICAL SUPPORT SPECIALIST us Basil Adhikari MD LAB POCT ORDERABLES - DE VICE Final Result [facility] [address] [place] [address] * POCT glucose (03/19/2024 2:13 AM TECHNICAL SUPPORT SPECIALIST) Glucose, POC 111 70 - 199 mg/dL Comment: For Glucose values <35 mg/dl when Hematocrit is >60 mg/dl,the test may not accurately detect significant hypoglycemia,and testing in the Laboratory should be considered if clinically indicated. Blood 03/19/2024 2:13 AM TECHNICAL SUPPORT SPECIALIST 03/19/2024 2:13 AM TECHNICAL SUPPORT SPECIALIST Basil Adhikari MD LAB POCT ORDERABLES - DE VICE Final Result Performing Organization Address [facility]/ZIP Co de Phone Number [facility] [address] [facility] [place] [address] * POCT glucose (03/19/2024 12:18 AM TECHNICAL SUPPORT SPECIALIST) Pathologist [facility] Glucose, POC 145 70 - 199 mg/dL Comment: For Glucose values <35 mg/dl when Hematocrit is >60 mg/dl,the test may not accurately detect significant hypoglycemia,and testing in the Laboratory should be considered if clinically indicated. Blood 03/19/2024 12:1 8 AM TECHNICAL SUPPORT SPECIALIST 03/19/2024 12:18 AM TECHNICAL SUPPORT SPECIALIST Basil Adhikari MD LAB POCT ORDERABLES - DE VICE Final Result Performing Organization Address City/[facility]/ZIP Co de Phone Number [facility] [address] [place] [address] * eGFR (03/19/2024 12:04 AM TECHNICAL SUPPORT SPECIALIST) eGFR 85 >=60 mL/min/1. 73 m2 Comment: [...] reviewed 2021. Blood 03/19/2024 12:0 4 AM TECHNICAL SUPPORT SPECIALIST 03/19/2024 12:58 AM TECHNICAL SUPPORT SPECIALIST Brenda Mayberry NP LAB BLOOD ORDERABLES Final Result Performing Organization Address City/[facility]/ZIP Co de Phone Number [facility] [address] [place], [place] [id number] * (ABNORMAL) Calcium, ionized (03/19/2024 12:04 AM TECHNICAL SUPPORT SPECIALIST) Pathologist [facility] Calcium, Ionized 4.47(L) 4.50 - 5.10 mg/dL Blood 03/19/2024 12:0 4 AM TECHNICAL SUPPORT SPECIALIST 03/19/2024 12:26 AM TECHNICAL SUPPORT SPECIALIST Brenda Mayberry NP LAB BLOOD ORDERABLES Final Result Performing Organization Address City/[facility]/ZIP Co de Phone Number [facility] [address] [place] [address] * (ABNORMAL) CBC without differential (03/19/2024 12:04 AM TECHNICAL SUPPORT SPECIALIST) WBC 8.7 3.8 - 9.9 K/cumm Hgb 12.5(L) 13.0 - 17.5 g/dL [facility] Hct 36.8(L) 38.9 - 50.3 % [facility] Plt 103(L) 150 - 400 K/cumm [facility] MPV 10.4 9.1 - 12.3 fL [facility] RBC 4.14(L) 4.30 - 5.80 M/cumm [facility] MCV 88.9 81.3 - 96.4 fL [facility] MCH 30.2 27.1 - 33.3 pg [facility] MCHC 34.0 32.3 - 35.7 g/dL [facility] RDW CV 12.6 11.1 - 14.9 % [facility] RDW SD 41.0 35.7 - 48.1 fL [facility] NRBC abs 0.00 0.00 - 0.01 K/cumm [facility] Blood 03/19/2024 12:0 4 AM TECHNICAL SUPPORT SPECIALIST 03/19/2024 12:58 AM TECHNICAL SUPPORT SPECIALIST Ale Mcknight AUTOMOBILE SALES REPRESENTATIVE LAB BLOOD ORDERABLES Fin al Result Performing Organization Address City/[facility]/ZIP Co de Phone Number [facility] [address] [place] [address] * Magnesium (03/19/2024 12:04 AM TECHNICAL SUPPORT SPECIALIST) [facility] Magnesium 2.0 1.4 - 2.5 mg/dL Blood 03/19/2024 12:0 4 AM TECHNICAL SUPPORT SPECIALIST 03/19/2024 12:58 AM TECHNICAL SUPPORT SPECIALIST Ale Mcknight AUTOMOBILE SALES REPRESENTATIVE LAB BLOOD ORDERABLES Fin al Result Performing Organization Address [facility] Co de Phone Number [facility] [address] [place] [address] * (ABNORMAL) Renal function panel (03/19/2024 12:04 AM TECHNICAL SUPPORT SPECIALIST) Sodium 131(L) 135 - 145 mmol/L Potassium, pl 5.1(H) 3.3 - 4.9 mmol/L [facility] Comment:Hemolyzed; potassium value may be falsely elevated by as much as 0.6 - 1.0 mmol/L. Suggest redraw and reanalysis Chloride 102 97 - 110 mmol/L [facility] CO2 18(L) 22 - 32 mmol/L [facility] Anion gap 11 2 - 15 mmol/L [facility] BUN 12 6 - 25 mg/dL [facility] Creatinine 0.88 0.80 - 1.30 mg/dL [facility] Glucose 146 70 - 199 mg/dL [facility] Comment: Interpretive Data Fasting glucose [...] 2022. Calcium 8.5 8.5 - 10.3 mg/dL [facility] Phosphorus, pl 3.7 2.3 - 4.5 mg/dL [facility] Albumin 3.7 3.5 - 5.0 g/dL [facility] Blood 03/19/2024 12:0 4 AM TECHNICAL SUPPORT SPECIALIST 03/19/2024 12:58 AM TECHNICAL SUPPORT SPECIALIST us Ale Mcknight NP LAB BLOOD ORDERABLES Fin al Result [facility] [address] [place] [address] * POCT glucose (03/18/2024 9:02 PM TECHNICAL SUPPORT SPECIALIST) [facility] Signature Glucose, POC 102 70 - 199 mg/dL Comment: For Glucose values <35 mg/dl when Hematocrit is >60 mg/dl,the test may not accurately detect significant hypoglycemia,and testing in the Laboratory should be considered if clinically indicated. Blood 03/18/2024 9:02 PM TECHNICAL SUPPORT SPECIALIST 03/18/2024 9:02 PM TECHNICAL SUPPORT SPECIALIST us Basil Adhikari MD LAB POCT ORDERABLES - DE VICE Final Result Performing Organization Address City/[facility]/ZIP Co de Phone Number [facility] [address] Department [place] [address] * (ABNORMAL) Blood gas, arterial (03/18/2024 7:23 PM TECHNICAL SUPPORT SPECIALIST) Pathologist [facility] pH, Art 7.45 7.35 - 7.45 PCO2, Arterial 28(L) 35 - 45 mmHg [facility] PO2, Arterial 195(H) 83 - 108 mmHg [facility] HCO3 Art (Calculated) 20 20 - 30 mmol/L [facility] BE, art -3 mmol/L [facility] Comment: Interpretive Data No Reference Range Established Current Interpretive Data was last revised on 2017 O2 Sat Art (Calculated) 100(H) 94 - 98 % [facility] Blood 03/18/2024 7:23 PM TECHNICAL SUPPORT SPECIALIST 03/18/2024 7:28 PM TECHNICAL SUPPORT SPECIALIST us Brenda Mayberry NP LAB BLOOD ORDERABLES Final Result Performing Organization Address [facility]/ZIP Co de Phone Number [facility] [address] [place] [address] * POCT glucose (03/18/2024 7:12 PM TECHNICAL SUPPORT SPECIALIST) [facility] Glucose, POC 114 70 - 199 mg/dL Comment: For Glucose values <35 mg/dl when Hematocrit is >60 mg/dl,the test may not accurately detect significant hypoglycemia,and testing in the Laboratory should be considered if clinically indicated. Blood 03/18/2024 7:12 PM TECHNICAL SUPPORT SPECIALIST 03/18/2024 7:12 PM TECHNICAL SUPPORT SPECIALIST us Basil Adhikari MD LAB POCT ORDERABLES - DE VICE Final Result Performing Organization Address [facility]/State/ZIP Co de Phone Number [facility] [address] [place] [address] * Critical Care (03/18/2024 6:39 PM TECHNICAL SUPPORT SPECIALIST) Narrative Gian Robertson MD - 03/18/2024 6:39 PM TECHNICAL SUPPORT SPECIALIST Roderick Couch DNP 03/19/2024 5:10 AM Critical Care Performed by: Roderick Couch DNP Authorized by: Roderick Couch DNP CRITICAL CARE: Team: [facility] CT Shift: PM Level of Billing: Subsequent [...] plan with the patient's team and other medical/senior consumer insights consultant staff. This time was in addition to and separate from care provided by other practitioners on this day of service. Roderick Couch DNP IN CLINIC/BEDSIDE OR DERABLES Final Result * POCT glucose (03/18/2024 6:07 PM TECHNICAL SUPPORT SPECIALIST) [facility] Signature Glucose, POC 82 70 - 199 mg/dL Comment: For Glucose values <35 mg/dl when Hematocrit is >60 mg/dl,the test may not accurately detect significant hypoglycemia,and testing in the Laboratory should be considered if clinically indicated. Blood 03/18/2024 6:07 PM TECHNICAL SUPPORT SPECIALIST 03/18/2024 6:07 PM TECHNICAL SUPPORT SPECIALIST us Basil Adhikari MD LAB POCT ORDERABLES - DE VICE Final Result [facility] [address] [place] [address] * XR Chest 1 View - Portable (03/18/2024 4:41 PM TECHNICAL SUPPORT SPECIALIST) Anatomical Region Laterality Modality Body, Chest N/A Computed Radiogr aphy 03/18/2024 6:28 PM TECHNICAL SUPPORT SPECIALIST Impressions 03/18/2024 6:28 PM TECHNICAL SUPPORT SPECIALIST FINDINGS/IMPRESSION: Postoperative changes of ascending aortic replacement is seen with sternotomy wires, and prosthetic aortic valve in place. A right IJ central venous catheter tip terminates in the superior vena cava. The right IJ [place]-Christoph catheter terminates in the main pulmonary artery. Mediastinal drains are seen. Bilateral shoulder arthroplasties are seen. Surgical clips superimposes the neck. Minimal left basilar atelectatic changes are seen. There is no focal consolidation, pleural effusion or pneumothorax. Cardiomediastinum is stable. Electronically signed by: Starla Hidalgo M.D. Narrative 03/18/2024 6:28 PM TECHNICAL SUPPORT SPECIALIST EXAMINATION: XR CHEST 1 VIEW HISTORY: cardiac [...] the superior vena cava. The right IJ [place]-Christoph catheter terminates in the main pulmonary artery. Mediastinal drains are seen. Bilateral shoulder arthroplasties are seen. Surgical clips superimposes the neck. Minimal left basilar atelectatic changes are seen. There is no focal consolidation, pleural effusion or pneumothorax. Cardiomediastinum is stable. Electronically signed by: Starla Hidalgo M.D. Brenda Mayberry AUTOMOBILE SALES REPRESENTATIVE IMG XR PROCEDURES Final Re sult * POCT glucose (03/18/2024 4:27 PM TECHNICAL SUPPORT SPECIALIST) Glucose, POC 121 70 - 199 mg/dL Comment: For Glucose values <35 mg/dl when Hematocrit is >60 mg/dl,the test may not accurately detect significant hypoglycemia,and testing in the Laboratory should be considered if clinically indicated. Blood 03/18/2024 4:27 PM TECHNICAL SUPPORT SPECIALIST 03/18/2024 4:27 PM TECHNICAL SUPPORT SPECIALIST us Basil Adhikari MD LAB POCT ORDERABLES - DE VICE Final Result [facility] [address] [place] [address] * Critical Care (03/18/2024 4:19 PM TECHNICAL SUPPORT SPECIALIST) Narrative Gian Robertson MD - 03/18/2024 4:19 PM TECHNICAL SUPPORT SPECIALIST Brenda Mayberry NP 03/18/2024 5:34 PM Critical Care Performed by: Brenda Mayberry NP Authorized by: Brenda Mayberry NP CRITICAL CARE: Team: [facility] CT Shift: AM Level of Billing: Critical [...] plan with the ICU team and other medical/senior consumer insights consultant staff, making frequent assessments and decisions [...] Final Result * eGFR (03/18/2024 4:17 PM TECHNICAL SUPPORT SPECIALIST) eGFR 81 >=60 mL/min/1. 73 m2 Comment: [...] last reviewed 2021. Blood 03/18/2024 4:17 PM TECHNICAL SUPPORT SPECIALIST 03/18/2024 4:32 PM TECHNICAL SUPPORT SPECIALIST Brenda Mayberry NP LAB BLOOD ORDERABLES Final Result Performing Organization Address City/[facility] Co de Phone Number [facility] [address] [facility] [place], [place] [id number] * (ABNORMAL) Calcium, ionized (03/18/2024 4:17 PM TECHNICAL SUPPORT SPECIALIST) Calcium, Ionized 5.37(H) 4.50 - 5.10 mg/dL Blood 03/18/2024 4:17 PM TECHNICAL SUPPORT SPECIALIST 03/18/2024 4:32 PM TECHNICAL SUPPORT SPECIALIST Brenda Mayberry NP LAB BLOOD ORDERABLES Final Result Performing Organization Address [facility] de Phone Number [facility] [address] [facility] [place] [address] * aPTT (03/18/2024 4:17 PM TECHNICAL SUPPORT SPECIALIST) aPTT 37 28 - 38 sec Comment: Interpretive Data Heparin therapeutic range: 66.0 - 100.0 seconds. Range based on correlation with therapeutic heparin activity range of 0.3 - 0.7 Units/mL. Current interpretive data was last revised on 2022. Blood 03/18/2024 4:17 PM TECHNICAL SUPPORT SPECIALIST 03/18/2024 4:32 PM TECHNICAL SUPPORT SPECIALIST Brenda Mayberry NP LAB BLOOD ORDERABLES Final Result Performing Organization Address [facility] Co de Phone Number [facility] [address] [facility] [place] [address] * (ABNORMAL) Protime-INR (03/18/2024 4:17 PM TECHNICAL SUPPORT SPECIALIST) Pathologist [facility] PT 16.0(H) 9.7 - 13.0 sec INR 1.47(H) 0.90 - 1.20 [facility] Comment: Interpretive data Oral anticoagulant therapeutic ranges: Venous thromboembolism prophylaxis or treatment: 2.0-3.0 CARDIOLOGY Standard range: 2.0-3.0 High-intensity range: 2.5-3.5 Refer to indication-specific guidelines for appropriate target ranges for prosthetic heart valve replacement. Current interpretive data was last revised on 2019. Blood 03/18/2024 4:17 PM TECHNICAL SUPPORT SPECIALIST 03/18/2024 4:32 PM TECHNICAL SUPPORT SPECIALIST Brenda Mayberry NP LAB BLOOD ORDERABLES Final Result [facility] [address] [place] [address] * (ABNORMAL) CBC without differential (03/18/2024 4:17 PM TECHNICAL SUPPORT SPECIALIST) Pathologist [facility] WBC 8.5 3.8 - 9.9 K/cumm Hgb 11.1(L) 13.0 - 17.5 g/dL [facility] Hct 31.9(L) 38.9 - 50.3 % [facility] Plt 95(L) 150 - 400 K/cumm [facility] MPV 9.2 9.1 - 12.3 fL [facility] RBC 3.65(L) 4.30 - 5.80 M/cumm [facility] MCV 87.4 81.3 - 96.4 fL [facility] MCH 30.4 27.1 - 33.3 pg [facility] MCHC 34.8 32.3 - 35.7 g/dL [facility] RDW CV 12.5 11.1 - 14.9 % [facility] RDW SD 39.9 35.7 - 48.1 fL [facility] NRBC abs 0.00 0.00 - 0.01 K/cumm [facility] Blood 03/18/2024 4:17 PM TECHNICAL SUPPORT SPECIALIST 03/18/2024 4:32 PM TECHNICAL SUPPORT SPECIALIST Brenda Mayberry AUTOMOBILE SALES REPRESENTATIVE LAB BLOOD ORDERABLES Final Result Performing Organization Address [facility] Co de Phone Number [facility] [address] [facility] [place] [address] * Phosphorus (03/18/2024 4:17 PM TECHNICAL SUPPORT SPECIALIST) Phosphorus, pl 3.6 2.3 - 4.5 mg/dL Blood 03/18/2024 4:17 PM TECHNICAL SUPPORT SPECIALIST 03/18/2024 4:32 PM TECHNICAL SUPPORT SPECIALIST Brenda Mayberry AUTOMOBILE SALES REPRESENTATIVE LAB BLOOD ORDERABLES Final Result Performing Organization Address [facility] Co de Phone Number [facility] [address] [facility] [place] [address] * Magnesium (03/18/2024 4:17 PM TECHNICAL SUPPORT SPECIALIST) Magnesium 2.3 1.4 - 2.5 mg/dL Blood 03/18/2024 4:17 PM TECHNICAL SUPPORT SPECIALIST 03/18/2024 4:32 PM TECHNICAL SUPPORT SPECIALIST Brenda Mayberry AUTOMOBILE SALES REPRESENTATIVE LAB BLOOD ORDERABLES Final Result Performing Organization Address [facility] de Phone Number [facility] [address] [facility] [place] [address] * (ABNORMAL) Blood gas, arterial (03/18/2024 4:17 PM TECHNICAL SUPPORT SPECIALIST) pH, Art 7.41 7.35 - 7.45 PCO2, Arterial 33(L) 35 - 45 mmHg [facility] PO2, Arterial 168(H) 83 - 108 mmHg [facility] HCO3 Art (Calculated) 21 20 - 30 mmol/L [facility] BE, art -3 mmol/L [facility] Comment: Interpretive Data No Reference Range Established Current Interpretive Data was last revised on 2017 O2 Sat Art (Calculated) 100(H) 94 - 98 % [facility] Blood 03/18/2024 4:17 PM TECHNICAL SUPPORT SPECIALIST 03/18/2024 4:32 PM TECHNICAL SUPPORT SPECIALIST Brenda Mayberry NP LAB BLOOD ORDERABLES Final Result Performing Organization Address [facility] Co de Phone Number [facility] [address] [place] [address] * (ABNORMAL) Basic metabolic panel (03/18/2024 4:17 PM TECHNICAL SUPPORT SPECIALIST) Pathologist [facility] Sodium 137 135 - 145 mmol/L Potassium, pl 4.3 3.3 - 4.9 mmol/L [facility] Chloride 108 97 - 110 mmol/L [facility] CO2 21(L) 22 - 32 mmol/L [facility] Anion gap 8 2 - 15 mmol/L [facility] BUN 12 6 - 25 mg/dL [facility] Creatinine 0.93 0.80 - 1.30 mg/dL [facility] Glucose 124 70 - 199 mg/dL [facility] Comment: Interpretive Data Fasting glucose [...] 2022. Calcium 9.0 8.5 - 10.3 mg/dL [facility] Blood 03/18/2024 4:1 7 PM TECHNICAL SUPPORT SPECIALIST 03/18/2024 4:32 PM TECHNICAL SUPPORT SPECIALIST Brenda Mayberry NP LAB BLOOD ORDERABLES Final Result Performing Organization Address [facility]/ZIP Co de Phone Number [facility] [address] [place] [address] * aPTT (03/18/2024 3:38 PM TECHNICAL SUPPORT SPECIALIST) aPTT 38 28 - 38 sec Comment: Interpretive Data Heparin therapeutic range: 66.0 - 100.0 seconds. Range based on correlation with therapeutic heparin activity range of 0.3 - 0.7 Units/mL. Current interpretive data was last revised on 2022. Blood 03/18/2024 3:38 PM TECHNICAL SUPPORT SPECIALIST 03/18/2024 3:38 PM TECHNICAL SUPPORT SPECIALIST Basil Adhikari MD LAB BLOOD ORDERABLES Fin al Result Performing Organization Address [facility] Co de Phone Number [facility] [address] [place] [address] * (ABNORMAL) Protime-INR (03/18/2024 3:38 PM TECHNICAL SUPPORT SPECIALIST) Pathologist [facility] PT 17.5(H) 9.7 - 13.0 sec INR 1.60(H) 0.90 - 1.20 [facility] Comment: Interpretive data Oral anticoagulant therapeutic ranges: Venous thromboembolism prophylaxis or treatment: 2.0-3.0 CARDIOLOGY Standard range: 2.0-3.0 High-intensity range: 2.5-3.5 Refer to indication-specific guidelines for appropriate target ranges for prosthetic heart valve replacement. Current interpretive data was last revised on 2019. Blood 03/18/2024 3:38 PM TECHNICAL SUPPORT SPECIALIST 03/18/2024 3:38 PM TECHNICAL SUPPORT SPECIALIST Basil Adhikari MD LAB BLOOD ORDERABLES Fin al Result Performing Organization Address [facility]/ZIP Co de Phone Number [facility] [address] [place] [address] * Fibrinogen (03/18/2024 3:38 PM TECHNICAL SUPPORT SPECIALIST) Fibrinogen 184 170 - 400 mg/dL Blood 03/18/2024 3:38 PM TECHNICAL SUPPORT SPECIALIST 03/18/2024 3:38 PM TECHNICAL SUPPORT SPECIALIST Basil Adhikari MD LAB BLOOD ORDERABLES Fin al Result Performing Organization Address [facility]/ZIP Co de Phone Number [facility] [address] [place] [address] * (ABNORMAL) CBC without differential (03/18/2024 3:38 PM TECHNICAL SUPPORT SPECIALIST) [facility] WBC 14.2(H) 3.8 - 9.9 K/cumm Hgb 10.6(L) 13.0 - 17.5 g/dL [facility] Hct 30.7(L) 38.9 - 50.3 % [facility] Plt 108(L) 150 - 400 K/cumm [facility] MPV 9.5 9.1 - 12.3 fL [facility] RBC 3.46(L) 4.30 - 5.80 M/cumm [facility] MCV 88.7 81.3 - 96.4 fL [facility] MCH 30.6 27.1 - 33.3 pg [facility] MCHC 34.5 32.3 - 35.7 g/dL [facility] RDW CV 12.5 11.1 - 14.9 % [facility] RDW SD 40.1 35.7 - 48.1 fL [facility] NRBC abs 0.00 0.00 - 0.01 K/cumm [facility] Blood 03/18/2024 3:38 PM TECHNICAL SUPPORT SPECIALIST 03/18/2024 3:38 PM TECHNICAL SUPPORT SPECIALIST Basil Adhikari MD LAB BLOOD ORDERABLES Fin al Result [facility] [address] [place] [address] * POC Activated Clotting Time, High Range (03/18/2024 3:35 PM TECHNICAL SUPPORT SPECIALIST) Pathologist [facility] ACT 130 87 - 138 sec Blood 03/18/2024 3:35 PM TECHNICAL SUPPORT SPECIALIST 03/18/2024 3:35 PM TECHNICAL SUPPORT SPECIALIST us Basil Adhikari MD LAB BLOOD ORDERABLES Fin al Result [facility] [address] [place] [address] * (ABNORMAL) POC Blood Gas and Chemistries, Arterial - (03/18/2024 3:35 PM TECHNICAL SUPPORT SPECIALIST) pH, Art POC 7.37 7.35 - 7.45 pCO2, Art POC 42 35 - 45 mmHg [facility] pO2, Art POC 330(H) 80 - 108 mmHg [facility] Na, POC 130(L) 135 - 145 mmol/L [facility] K POC 4.6 3.3 - 4.9 mmol/L [facility] Comment: Interpretive Data This method is not able to assess for hemolysis, which may falsely increase potassium concentrations. If further testing is needed to evaluate this result, consider in-laboratory plasma potassium. Current Interpretive Data was last revised on 2021. Cl, POC 103 97 - 110 mmol/L [facility] Ionized Ca, POC 6.06(H) 4.50 - 5.10 mg/dL [facility] Glucose, POC 157 70 - 199 mg/dL [facility] Lactate, POC 1.0 0.0 - 2.0 mmol/L [facility] O2Hb, Art POC 96.9(H) 90.0 - 95.0 % [facility] Carboxhgb fract 1.0 0.0 - 2.9 % [facility] Methemoglobin 1.3 0.0 - 1.9 % [facility] HHb, POC 0.9 0.0 - 5.0 % [facility] SO2 (shayne) arterial 99(H) 90 - 95 % [facility] BE, art, POC -1.0 -2.0 - 2.0 mmol/L [facility] HCO3, Art POC 24 20 - 30 mmol/L [facility] Hct, POC 34.0(L) 38.9 - 50.3 % [facility] Total Hb, POC 11.2(L) 13.0 - 17.5 g/dL [facility] Blood 03/18/2024 3:35 PM TECHNICAL SUPPORT SPECIALIST 03/18/2024 3:35 PM TECHNICAL SUPPORT SPECIALIST us Basil Adhikari MD LAB POCT ORDERABLES - DE VICE Final Result [facility] [address] [place] [address] * (ABNORMAL) POC Blood Gas and Chemistries, Arterial - (03/18/2024 2:41 PM TECHNICAL SUPPORT SPECIALIST) pH, Art POC 7.33(L) 7.35 - 7.45 pCO2, Art POC 45 35 - 45 mmHg [facility] pO2, Art POC 345(H) 80 - 108 mmHg [facility] Na, POC 129(L) 135 - 145 mmol/L [facility] K POC 5.3(H) 3.3 - 4.9 mmol/L [facility] Comment: Interpretive Data This method is not able to assess for hemolysis, which may falsely increase potassium concentrations. If further testing is needed to evaluate this result, consider in-laboratory plasma potassium. Current Interpretive Data was last revised on 2021. Cl, POC 102 97 - 110 mmol/L [facility] Ionized Ca, POC 4.66 4.50 - 5.10 mg/dL [facility] Glucose, POC 153 70 - 199 mg/dL [facility] Lactate, POC 0.8 0.0 - 2.0 mmol/L [facility] O2Hb, Art POC 96.6(H) 90.0 - 95.0 % [facility] Carboxhgb fract 1.2 0.0 - 2.9 % [facility] Methemoglobin 1.4 0.0 - 1.9 % [facility] HHb, POC 0.8 0.0 - 5.0 % [facility] SO2 (shayne) arterial 99(H) 90 - 95 % [facility] BE, art, POC -2.3(L) -2.0 - 2.0 mmol/L [facility] HCO3, Art POC 23 20 - 30 mmol/L [facility] Hct, POC 32.0(L) 38.9 - 50.3 % [facility] Total Hb, POC 10.7(L) 13.0 - 17.5 g/dL [facility] Blood 03/18/2024 2:41 PM TECHNICAL SUPPORT SPECIALIST 03/18/2024 2:41 PM TECHNICAL SUPPORT SPECIALIST Basil Adhikari MD LAB POCT ORDERABLES - DE VICE Final Result Performing Organization Address [facility] Co de Phone Number [facility] [address] [place] [address] * (ABNORMAL) POC Activated Clotting Time, High Range (03/18/2024 2:40 PM TECHNICAL SUPPORT SPECIALIST) ACT 474(H) 87 - 138 sec Blood 03/18/2024 2:40 PM TECHNICAL SUPPORT SPECIALIST 03/18/2024 2:40 PM TECHNICAL SUPPORT SPECIALIST Basil Adhikari MD LAB BLOOD ORDERABLES Fin al Result Performing Organization Address [facility] Co de Phone Number [facility] [address] [place] [address] * (ABNORMAL) POC Blood Gas and Chemistries, Venous - (03/18/2024 2:30 PM TECHNICAL SUPPORT SPECIALIST) pH, Boyd POC 7.34 7.32 - 7.45 pCO2, boyd POC 47 40 - 50 mmHg [facility] pO2, boyd POC 52(H) 35 - 42 mmHg [facility] Na, POC 131(L) 135 - 145 mmol/L [facility] K POC 5.0(H) 3.3 - 4.9 mmol/L [facility] Comment: Interpretive Data This method is not able to assess for hemolysis, which may falsely increase potassium concentrations. If further testing is needed to evaluate this result, consider in-laboratory plasma potassium. Current Interpretive Data was last revised on 2021. Cl, POC 101 97 - 110 mmol/L [facility] Ionized Ca, POC 4.65 4.50 - 5.10 mg/dL [facility] Glucose, POC 130 70 - 199 mg/dL [facility] Lactate, POC 0.6 0.0 - 2.0 mmol/L [facility] O2Hb, Boyd POC 81.4(L) 90.0 - 95.0 % [facility] Carboxhgb fract 1.5 0.0 - 2.9 % [facility] Methemoglobin 1.1 0.0 - 1.9 % [facility] HHb, POC 16.0(H) 0.0 - 5.0 % [facility] O2 Sat, Boyd POC (Shayne) 84(H) 68 - 77 % [facility] Base excess, boyd POC -0.7 mmol/L [facility] HCO3, Boyd POC 24 20 - 30 mmol/L [facility] Hct, POC 33.0(L) 38.9 - 50.3 % [facility] Total Hb, POC 11.0(L) 13.0 - 17.5 g/dL [facility] Blood 03/18/2024 2:30 PM TECHNICAL SUPPORT SPECIALIST 03/18/2024 2:30 PM TECHNICAL SUPPORT SPECIALIST us Basil Adhikari MD LAB POCT ORDERABLES - DE VICE Final Result [place] [address] [address] [place] [address] * Surgical pathology (03/18/2024 2:09 PM TECHNICAL SUPPORT SPECIALIST) Tissue (Aorta) 03/18/2024 2: 09 PM TECHNICAL SUPPORT SPECIALIST Comment:Placed in formalin a t end of case Narrative PATHOLOGY [facility] - 03/22/2024 11:52 AM TECHNICAL SUPPORT SPECIALIST [place] [id number] [facility], [place], [place] [address] Tele: Josie Cárdenas MD - Nanoelectronics Engineer Note to Patients: This report may contain [...] REPORT Patient Name: GIAN LEE Address: [address] [place] [address] Gender: M : 1940 (Age: 83) Service: Cardiothoracic Location: [place] [address], Hospital #: [id number] Patient Type: [facility] INPATIENT Taken: 03/18/2024 Received 03/18/2024 Reported: 03/22/2024 [...] The vascular wall intact, and mildly hemorrhagic. Upholstery Cleaner sections are submitted as follows: A1 - Upholstery Cleaner sections, A2-A6 - Additional sections. [facility]/03/19/2024 14:38 DMS,JAP MICROSCOPIC DESCRIPTION: Microscopic [...] a non-neoplastic entity. Clerical Data Follows A; 55577, 56408, 30890(6) REPORT IMAGES AND/OR SCANNED DOCUMENTS ONLY VIEWABLE IN PDF FORMAT The immunohistochemical test(s) cited in this report, if any, was developed and its performance characteristics determined by [facility] Pathology Department. It has not been cleared or approved by the U.S. Food and Drug Administration. The FDA has determined that such clearance or approval is not necessary. This test is used for clinical purposes. It should not be regarded as investigational or for research. [facility] Laboratory is certified under the Clinical Laboratory [...] part or completely in the following laboratories: [facility], [facility] [place], [address] [place] [id number]. Basil Adhikari MD LAB PATHOLOGY ORDERABLES Final Result Performing Organization Address City/[facility]/ZIP Co de Phone Number PATHOLOGY [facility] Laboratory Receiving [address] [place], [place] [id number] * (ABNORMAL) POC Activated Clotting Time, High Range (03/18/2024 2:08 PM TECHNICAL SUPPORT SPECIALIST) [facility] ACT 627(H) 87 - 138 sec Blood 03/18/2024 2:08 PM TECHNICAL SUPPORT SPECIALIST 03/18/2024 2:08 PM TECHNICAL SUPPORT SPECIALIST Basil Adhikari MD LAB BLOOD ORDERABLES Fin al Result [facility] [address] Department of Laboratories [place], [place] [id number] * (ABNORMAL) POC Blood Gas and Chemistries, Arterial - (03/18/2024 2:08 PM TECHNICAL SUPPORT SPECIALIST) pH, Art POC 7.35 7.35 - 7.45 pCO2, Art POC 44 35 - 45 mmHg [facility] pO2, Art POC 417(H) 80 - 108 mmHg [facility] Na, POC 129(L) 135 - 145 mmol/L [facility] K POC 5.7(H) 3.3 - 4.9 mmol/L [facility] Comment: Interpretive Data This method is not able to assess for hemolysis, which may falsely increase potassium concentrations. If further testing is needed to evaluate this result, consider in-laboratory plasma potassium. Current Interpretive Data was last revised on 2021. Cl, POC 103 97 - 110 mmol/L [facility] Ionized Ca, POC 4.68 4.50 - 5.10 mg/dL [facility] Glucose, POC 122 70 - 199 mg/dL [facility] Lactate, POC 0.5 0.0 - 2.0 mmol/L [facility] O2Hb, Art POC 97.5(H) 90.0 - 95.0 % [facility] Carboxhgb fract 1.0 0.0 - 2.9 % [facility] Methemoglobin 0.8 0.0 - 1.9 % [facility] HHb, POC 0.7 0.0 - 5.0 % [facility] SO2 (shayne) arterial 99(H) 90 - 95 % [facility] BE, art, POC -1.4 -2.0 - 2.0 mmol/L [facility] HCO3, Art POC 24 20 - 30 mmol/L [facility] Hct, POC 33.0(L) 38.9 - 50.3 % [facility] Total Hb, POC 11.0(L) 13.0 - 17.5 g/dL [facility] Blood 03/18/2024 2:08 PM TECHNICAL SUPPORT SPECIALIST 03/18/2024 2:08 PM TECHNICAL SUPPORT SPECIALIST us Basil Adhikari MD LAB POCT ORDERABLES - DE VICE Final Result [facility] [address] [place] [address] * (ABNORMAL) POC Blood Gas and Chemistries, Arterial - (03/18/2024 1:50 PM TECHNICAL SUPPORT SPECIALIST) pH, Art POC 7.39 7.35 - 7.45 pCO2, Art POC 38 35 - 45 mmHg [facility] pO2, Art POC 426(H) 80 - 108 mmHg [facility] Na, POC 128(L) 135 - 145 mmol/L [facility] K POC 4.4 3.3 - 4.9 mmol/L [facility] Comment: Interpretive Data This method is not able to assess for hemolysis, which may falsely increase potassium concentrations. If further testing is needed to evaluate this result, consider in-laboratory plasma potassium. Current Interpretive Data was last revised on 2021. Cl, POC 101 97 - 110 mmol/L [facility] Ionized Ca, POC 4.82 4.50 - 5.10 mg/dL [facility] Glucose, POC 113 70 - 199 mg/dL [facility] Lactate, POC 0.5 0.0 - 2.0 mmol/L [facility] O2Hb, Art POC 97.1(H) 90.0 - 95.0 % [facility] Carboxhgb fract 1.4 0.0 - 2.9 % [facility] Methemoglobin 1.2 0.0 - 1.9 % [facility] HHb, POC 0.3 0.0 - 5.0 % [facility] SO2 (shayne) arterial 100(H) 90 - 95 % [facility] BE, art, POC -1.7 -2.0 - 2.0 mmol/L [facility] [facility] HCO3, Art POC 24 20 - 30 mmol/L [facility] Hct, POC 39.0 38.9 - 50.3 % [facility] Total Hb, POC 12.9(L) 13.0 - 17.5 g/dL [facility] Blood 03/18/2024 1:50 PM TECHNICAL SUPPORT SPECIALIST 03/18/2024 1:50 PM TECHNICAL SUPPORT SPECIALIST us Basil Adhikari MD LAB POCT ORDERABLES - DE VICE Final Result [facility] [address] [place] [address] * (ABNORMAL) POC Activated Clotting Time, High Range (03/18/2024 1:49 PM TECHNICAL SUPPORT SPECIALIST) ACT 608(H) 87 - 138 sec Blood 03/18/2024 1:49 PM TECHNICAL SUPPORT SPECIALIST 03/18/2024 1:49 PM TECHNICAL SUPPORT SPECIALIST Basil Adhikari MD LAB BLOOD ORDERABLES Fin al Result [facility] [address] [place] [address] * BW AN SHEATH INTRODUCER PERFORMABLE, PULMONARY ARTERY CATH, [place] AN PROCEDURE PLACEHOLDER (:41 PM TECHNICAL SUPPORT SPECIALIST) Narrative Gamal Asher MD PhD - 03/18/2024 1:41 PM TECHNICAL SUPPORT SPECIALIST Gamal Asher MD PhD 03/18/2024 1:41 PM [...] PhD ANESTHESIA ORDERABLES Fi nal Result * [place] AN CENTRAL LINE QUADRUPLE LUMEN, [place] AN PROCEDURE PLACEHOLDER (03/18/2024 1:40 PM TECHNICAL SUPPORT SPECIALIST) Gamal Robbins MD PhD - 03/18/2024 1:40 PM TECHNICAL SUPPORT SPECIALIST Gamal Asher MD PhD 03/18/2024 1:41 PM [...] PhD ANESTHESIA ORDERABLES Fi nal Result * [place] AN PROCEDURE PLACEHOLDER (03/18/2024 1:39 PM TECHNICAL SUPPORT SPECIALIST) Gamal Robbins MD PhD - 03/18/2024 1:39 PM TECHNICAL SUPPORT SPECIALIST Gamal Asher MD PhD 03/18/2024 1:39 PM [...] PhD ANESTHESIA ORDERABLES Fi nal Result * [place] AN PROCEDURE PLACEHOLDER (03/18/2024 1:38 PM TECHNICAL SUPPORT SPECIALIST) Gamal Robbins MD PhD - 03/18/2024 1:38 PM TECHNICAL SUPPORT SPECIALIST Gamal Asher MD PhD 03/18/2024 1:38 PM [...] PhD ANESTHESIA ORDERABLES Fi nal Result * [place] AN ELECTIVE ENDOTRACHEAL AIRWAY, [place] AN PROCEDURE PLACEHOLDER (03/18/2024 1:37 PM TECHNICAL SUPPORT SPECIALIST) Gamal Robbins MD PhD - 03/18/2024 1:37 PM TECHNICAL SUPPORT SPECIALIST Gamal Asher MD PhD 03/18/2024 1:37 PM [...] PhD ANESTHESIA ORDERABLES Fi nal Result * [place] AN PROCEDURE PLACEHOLDER (03/18/2024 1:29 PM TECHNICAL SUPPORT SPECIALIST) Anatomical Region Laterality Modality Other Narrative 03/18/2024 1:29 PM TECHNICAL SUPPORT SPECIALIST Derek Marin MD PhD 03/18/2024 4:18 PM [...] code: LIDIA placement and diagnostic exam, non-congenital (92393) ICD code(s) for medical necessity: I71.2 - [...] inferior: normal 16- Apical septal: normal 17- Pound: normal Valves: Aortic Valve: Annulus: dilated Leaflet [...] Clotting Time, High Range (03/18/2024 1:11 PM TECHNICAL SUPPORT SPECIALIST) ACT 111 87 - 138 sec Blood 03/18/2024 1:11 PM TECHNICAL SUPPORT SPECIALIST 03/18/2024 1:11 PM TECHNICAL SUPPORT SPECIALIST Basil Adhikari MD LAB BLOOD ORDERABLES Fin al Result Performing Organization Address [facility] Co de Phone Number [facility] [address] [place] [address] * LIDIA Add-On For OR (03/18/2024 12:05 PM TECHNICAL SUPPORT SPECIALIST) BSA 1.88 m2 CONS SCIMAGE Narrative CONS SCIMAGE - 03/18/2024 12:05 PM TECHNICAL SUPPORT SPECIALIST Procedure Auto Finalized by Rule: BW CV LIDIA DURING CASE OR Please see the Anesthesiologist's Procedure Note for the results. Gamal Asher MD PhD CV ECHO PROCEDURES Final Result Performing Organization Address [facility] de Phone Number CONS SCIMAGE * Check Sample (03/18/2024 9:54 AM TECHNICAL SUPPORT SPECIALIST) ABO Rh O Positive MBC HCLL OTHER 03/18/2024 9:54 AM TECHNICAL SUPPORT SPECIALIST 03/18/2024 10:20 AM TECHNICAL SUPPORT SPECIALIST Basil Adhikari MD LAB BLOOD ORDERABLES Fin al Result Performing Organization Address [facility] Co de Phone Number [facility] [address] [place] [address] [phone] [facility] * ECG 12 lead (03/18/2024 9:34 AM TECHNICAL SUPPORT SPECIALIST) 03/18/2024 9:34 AM TECHNICAL SUPPORT SPECIALIST Narrative [facility] - 03/18/2024 10:15 AM TECHNICAL SUPPORT SPECIALIST Vent Rate: 46 bpm RR Interval: 1277 msec [place] Interval: 115 msec QRS Duration: 84 msec QT Interval: 430 msec QTC Interval: 391 msec P-R-T [place]: 56 - -19 - -14 degrees IMPRESSION: SINUS BRADYCARDIA WITH SINUS ARRHYTHMIA WITH SHORT [place] INTERVAL POSSIBLE ANTERIOR MYOCARDIAL INFARCTION , PROBABLY OLD BORDERLINE ECG Electronically Signed By: Klaus Humphrey MD PhD us Ev Freed NP ECG ORDERABLES Final Res ult [facility] * Prepare RBC: 4 Units (03/18/2024 9:12 AM TECHNICAL SUPPORT SPECIALIST) Product code [id number] [facility] Unit Number [id number] [id number] [facility] Product Blood Type OPOS [facility] Dispense Status RETURNED [facility] Product code [id number] Unit Number [id number] 8-[id number] [facility] Product Blood Type OPOS [facility] Dispense Status RETURNED [facility] Product code [id number] [facility] Unit Number [id number] 7-[id number] [facility] Product Blood Type OPOS [facility] Dispense Status RETURNED [facility] Product code [id number] [facility] Unit Number [id number] 0-U [facility] Product Blood Type OPOS [facility] Dispense Status RETURNED [facility] Blood 03/18/2024 9:12 AM TECHNICAL SUPPORT SPECIALIST Narrative [facility] - 03/22/2024 7:46 AM TECHNICAL SUPPORT SPECIALIST Specify Procedure:->tissue aortic root replacement Are special requirements needed? (All products are leukoreduced and CMV- safe)- >No Date required:-[id number] LRRBC # of Gulet-2-Axosi Reasons:-Hold for procedure (specify procedure)} us Ev Freed NP BLOOD BANK PRODUCT ORDERA BLES Final Result [facility] [address] [place] [address] * Differential, auto (03/15/2024 12:29 PM TECHNICAL SUPPORT SPECIALIST) Neutrophil abs 2.5 1.5 - 6.5 K/cumm Imm gran abs 0.0 0.0 - 0.1 K/cumm [facility] Lymphocyte abs 1.1 0.8 - 3.3 K/cumm [facility] Monocyte abs 0.6 0.2 - 0.8 K/cumm [facility] Eosinophil abs 0.2 0.0 - 0.5 K/cumm [facility] Basophil abs 0.0 0.0 - 0.1 K/cumm [facility] Neutrophil pct 56.5 % [facility] Comment: Interpretive Data Percent cell count reference ranges are not reported, since discordance with absolute values may lead to misinterpretation of CBC data. Current Interpretive Data was last revised on 2017. Imm gran pct 0.5 % [facility] Comment: Interpretive Data Percent cell count reference ranges are not reported, since discordance with absolute values may lead to misinterpretation of CBC data. Current Interpretive Data was last revised on 2017. Lymphocyte pct 23.8 % [facility] Comment: Interpretive Data Percent cell count reference ranges are not reported, since discordance with absolute values may lead to misinterpretation of CBC data. Current Interpretive Data was last revised on 2017. Monocyte pct 14.5 % [facility] Comment: Interpretive Data Percent cell count reference ranges are not reported, since discordance with absolute values may lead to misinterpretation of CBC data. Current Interpretive Data was last revised on 2017. Eosinophil pct 3.8 % [facility] Comment: Interpretive Data Percent cell count reference ranges are not reported, since discordance with absolute values may lead to misinterpretation of CBC data. Current Interpretive Data was last revised on 2017. Basophil pct 0.9 % [facility] Comment: Interpretive Data Percent cell count reference ranges are not reported, since discordance with absolute values may lead to misinterpretation of CBC data. Current Interpretive Data was last revised on 2017. Blood 03/15/2024 12:2 9 PM TECHNICAL SUPPORT SPECIALIST 03/15/2024 12:29 PM TECHNICAL SUPPORT SPECIALIST Basil Adhikari MD LAB BLOOD ORDERABLES Fin al Result Performing Organization Address [facility]/ZIP Co de Phone Number [facility] [address] [employer] [place], [place] [id number] * CBC with auto differential (03/15/2024 12:29 PM TECHNICAL SUPPORT SPECIALIST) Pathologist [facility] WBC 4.4 3.8 - 9.9 K/cumm Hgb 14.5 13.0 - 17.5 g/dL [facility] Hct 42.9 38.9 - 50.3 % [facility] Plt 156 150 - 400 K/cumm [facility] MPV 9.9 9.1 - 12.3 fL [facility] RBC 4.82 4.30 - 5.80 M/cumm [facility] MCV 89.0 81.3 - 96.4 fL [facility] MCH 30.1 27.1 - 33.3 pg [facility] MCHC 33.8 32.3 - 35.7 g/dL [facility] RDW CV 12.4 11.1 - 14.9 % [facility] RDW SD 40.8 35.7 - 48.1 fL [facility] NRBC abs 0.00 0.00 - 0.01 K/cumm [facility] Blood 03/15/2024 12:2 9 PM TECHNICAL SUPPORT SPECIALIST 03/15/2024 12:29 PM TECHNICAL SUPPORT SPECIALIST Basil Adhikari MD LAB BLOOD ORDERABLES Fin al Result Performing Organization Address City/[facility]/ZIP Co de Phone Number [facility] [address] Department of [employer] [place], [place] [id number] * Type and screen (03/15/2024 12:29 PM TECHNICAL SUPPORT SPECIALIST) Alex, indirect Negative ABO Rh O Positive [facility] Blood 03/15/2024 12:2 9 PM TECHNICAL SUPPORT SPECIALIST 03/15/2024 12:45 PM TECHNICAL SUPPORT SPECIALIST Narrative [facility] - 03/15/2024 1:31 PM TECHNICAL SUPPORT SPECIALIST No blood transfusions last 90 days Surgery 03/18/24 No blood transfusions last 90 days Surgery 03/18/24 Has the patient had Daratumumab or Isatuximab in the past 6 months?->No Basil Adhikari MD LAB BLOOD BANK TEST ORDE WILLOW Final Result Performing Organization Address [facility] de Phone Number [facility] [address] [place] [address] * Hemoglobin A1c (03/15/2024 12:29 PM TECHNICAL SUPPORT SPECIALIST) [facility] Hgb A1C 5.2 4.0 - 5.6 % Estimated Average Glucose 103 mg/dL [facility] Comment: The ADA recommends reporting an estimated Average Glucose (eAG) with all Hemoglobin A1c results using the equation derived from a study of 507 normal and diabetic adults. Minority populations were underrepresented and children were not included. (Diabetes Care 31:7030-7012, 2008). The eAG is not equivalent to a fasting glucose. Blood 03/15/2024 12:2 9 PM TECHNICAL SUPPORT SPECIALIST 03/15/2024 12:29 PM TECHNICAL SUPPORT SPECIALIST Basil Adhikari MD LAB BLOOD ORDERABLES Fin al Result Performing Organization Address [facility] Co de Phone Number [facility] [address] [place] [address] * eGFR (03/15/2024 12:28 PM TECHNICAL SUPPORT SPECIALIST) [facility] eGFR 65 >=60 mL/min/1. 73 m2 Comment: [...] reviewed 2021. Blood 03/15/2024 12:2 8 PM TECHNICAL SUPPORT SPECIALIST 03/15/2024 12:28 PM TECHNICAL SUPPORT SPECIALIST us Basil Adhikari MD LAB BLOOD ORDERABLES Fin al Result [facility] [address] [place] [address] * (ABNORMAL) Comprehensive metabolic panel (03/15/2024 12:28 PM TECHNICAL SUPPORT SPECIALIST) Sodium 134(L) 135 - 145 mmol/L Potassium, pl 4.7 3.3 - 4.9 mmol/L [facility] Chloride 98 97 - 110 mmol/L [facility] CO2 25 22 - 32 mmol/L [facility] Anion gap 11 2 - 15 mmol/L [facility] BUN 12 6 - 25 mg/dL [facility] Creatinine 1.11 0.80 - 1.30 mg/dL [facility] Glucose 82 70 - 199 mg/dL [facility] Comment: Interpretive Data Fasting glucose [...] 2022. Calcium 9.3 8.5 - 10.3 mg/dL [facility] Bilirubin, total 0.8 0.1 - 1.2 mg/dL [facility] Protein, pl 6.8 6.5 - 8.5 g/dL [facility] Albumin 4.5 3.5 - 5.0 g/dL [facility] Alk phos 82 40 - 130 Units/L [facility] ALT 26 7 - 55 Units/L [facility] AST 39 10 - 50 Units/L [facility] Blood 03/15/2024 12:2 8 PM TECHNICAL SUPPORT SPECIALIST 03/15/2024 12:28 PM TECHNICAL SUPPORT SPECIALIST us Basil Adhikari MD LAB BLOOD ORDERABLES Fin al Result [facility] [address] [place] [address] from Last 3 Months Insurance [facility] MEDICARE [facility] FEDERAL Advance Directives For more information, please contact: [phone] * Full Code (Latest Code Status on [...] 8:19 AM 09/09/2019 6:53 PM Care Teams Microsoft Net Developer Relationship Specialty Start Date End Date Martinez Pace MD [address] [facility] [address] [place] [address] PCP - General 05/02/16 Dion Abraham MD [address] [place] [address] Referring Physician Cardiology 02/18/24 Basil Adhikari MD [address] [facility] [address] [place] [address] Consulting Physician Cardiothoracic Surgery 02/19/24
--- OUTSIDE RECORDS SUMMARY | 2024-05-10 10:38 | XMS_ITS | Clinical Summary ---
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
--- OUTSIDE RECORDS SUMMARY | 2024-05-10 10:38 | XMS_ITS ---
Author Organization [facility] As NI Address [address] [facility] [address] [place] [address] Care Team Providers Care French Cord Binder Name Role Phone Carli Figueroa Unavailable [phone] Allergies No Known Allergies REASON FOR VISIT [...] Master's degree (e.g., MA, MS, Ashley, MEd, GAS PLANT SPECIALIST, NICK)Are you currently employed?: NoWho is your [...] NoDo you have a medical power of traffic law attorney?: No Problems Problem Type SNOMED Code ICD Code Onset Dates Problem Status W/U Status Risk Notes Problem Recurrent major depression (38248676) Depression, major, recurrent, 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) Active confirmed Vital Signs Blood pressure systolic 120 mm Hg 03/08/20 24 Blood pressure diastolic 70 mm Hg 024 Heart Rate 55 /min 03/08/2024 Height 68.00 in 03/08/2024 Weight 165.0 lbs 03/08/2024 BMI 25.09 kg/m2 03/08/2024 Height-cm 172.72 cm 03/08/2024 Weight-kg 74.84 kg 03/08/2024 Encounters Encounter [facility] Date [facility] [address] [address] 03/08/2024 Carli Figueroa Depression, major, recurrent, in [...] Reason: Provider Name:Carli rivas, 08/06/2024 01:00:00 PM, [address] [facility] [facility], [facility] [address], [place], [address], Progress Notes * GIAN LEEDOB:1940 (83 yo M)Acc No.[id number]:03/08/2024 Patient: GIAN PARSONS Provider: Adan Figueroa :1940 A ge:83 Y S ex:Male Date:03/08/2024 Address:[address] [place], [place] [address] Subjective: * Chief Complaints: * F ollow up depression, anxiety, insomnia * HPI: H istory of Presenting Problem: 83 y/o male, ( in 2022 55 years), has a new partner (Anne) who is now living with him, 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 Denied hx of suicide attempts or self-injury. Dr Monge/records in chart: , hx depression, anxiety, ECT in 2007-was hospitalized at [facility], was [...] thoughts, Dissociations, involuntary movements. C lauren [facility] for details.? N ormal blood pressure reading [...] Master's degree (e.g., MA, MS, Ashley, MEd, GAS PLANT SPECIALIST, NICK)Are you currently employed?: NoWho is your [...] NoDo you have a medical power of traffic law attorney?: No. * Medications: T akingEntresto 24-26 [...] 9 6127 BEHAV ASSMT W/SCORE & DOCD/STAND [id number] NORMAL BP READING DOC F/U NOT [id number] VISIT COMPLEXITY INHERENT TO ONGOING CARE RELATED TO A PATIENT'S SINGLE, SERIOUS CONDITION OR A COMPLEX CONDITION * Preventive Medicine: * Follow Up: 5 Months * Billing Information: * Visit Code: [id number] OFFICE OUTPATIENT VISIT 25 MINUTES DETAILED HISTORY AND EXAM/MODERATE MEDICAL DECISION MAKING. * Procedure Codes: 12618 BEHAV ASSMT W/SCORE & DOCD/STAND INSTRUMENT. G8783 NORMAL BP READING DOC F/U NOT RQR. G2211 VISIT COMPLEXITY INHERENT TO ONGOING CARE RELATED TO A PATIENT'S SINGLE, SERIOUS CONDITION OR A COMPLEX CONDITION. * E PICKER Electronically co-signed by Padilla Barajas MD on 03/08/2024 at 08:15 PM OLIVE PICKER Sign off status: Completed true * Provider: Adan Figueroa Date: 05/09/2023 Generated for Candi chowdhury/Jeffrey/Raoransmitting on: 0 05/10/2024 10:37 AM OLIVE PICKER History and Physical Notes * HPI (History [...]
[2024-05-10 10:41] LABS: Add Urine Microscopic? YES; Appearance Urine Cloudy (Clear); Bacteria Urine None Seen /hpf; Bilirubin Urine Negative (Negative); Blood Urine Negative (Negative); Color Urine Yellow (Yellow); Glucose Urine UA Negative (Negative); Ketones Urine Negative (Negative); Leukocyte Esterase Ur Trace LEU/UL (Negative); Nitrate Urine Negative (Negative); Protein Urine Negative (Negative); RBC Urine 0-2 /hpf (0-2); Specific Grav Ur 1.017 (1.001-1.035); Squamous Epithelial Cell Urine None Seen /hpf (Few); Urobilinogen Urine 0.2 mg/dL (<2.0); pH Urine 7.5 (5.0-9.0)
[2024-05-10 10:48] LABS: NT Pro B Type Natriuretic Pept 2370 pg/mL (19.9-100); Troponin I < 0.012 ng/mL (0.000-0.034)
[2024-05-10] MEDS: SODIUM CHLORIDE 0.9% IV 500 ML 999 ML (11:21)
[2024-05-10 12:38] LABS: Free T4 Free Thyroxine Reflex 0.77 ng/dL (0.78-2.19)
== END 2024-05-10 14:07 | disposition short-term general hospital (02) ==
PROVIDERS: Emergency Provider Physician Assistant; PCP Family Medicine
DX: I72.4 Aneurysm of artery of lower extremity (principal); S01.112A Laceration without foreign body of left eyelid and periocular area, initial encounter; S00.83XA Contusion of other part of head, initial encounter; Z23 Encounter for immunization; I72.3 Aneurysm of iliac artery; I71.43 Infrarenal abdominal aortic aneurysm, without rupture; I48.91 Unspecified atrial fibrillation; I25.10 Atherosclerotic heart disease of native coronary artery without angina pectoris; I50.9 Heart failure, unspecified; I35.1 Nonrheumatic aortic (valve) insufficiency; E87.1 Hypo-osmolality and hyponatremia; E89.0 Postprocedural hypothyroidism; D64.9 Anemia, unspecified; G47.33 Obstructive sleep apnea (adult) (pediatric); G62.9 Polyneuropathy, unspecified; M19.90 Unspecified osteoarthritis, unspecified site; K21.9 Gastro-esophageal reflux disease without esophagitis; K44.9 Diaphragmatic hernia without obstruction or gangrene; F41.9 Anxiety disorder, unspecified; F32.A Depression, unspecified; Z93.1 Gastrostomy status; Z95.2 Presence of prosthetic heart valve; Z95.828 Presence of other vascular implants and grafts; Z96.619 Presence of unspecified artificial shoulder joint; Z86.0100 Personal history of colon polyps, unspecified; Z86.718 Personal history of other venous thrombosis and embolism; Z86.711 Personal history of pulmonary embolism; Z86.73 Personal history of transient ischemic attack (TIA), and cerebral infarction without residual deficits; Z87.891 Personal history of nicotine dependence; Z90.79 Acquired absence of other genital organ(s); Z79.01 Long term (current) use of anticoagulants; Z79.899 Other long term (current) drug therapy; Z79.82 Long term (current) use of aspirin; R90.82 White matter disease, unspecified; M47.812 Spondylosis without myelopathy or radiculopathy, cervical region; W18.39XA Other fall on same level, initial encounter
CPT/HCPCS: 12001; 36415; 70450; 71045; 71275; 72125; 75635; 80053; 81001; 83735; 83880; 84439; 84443; 84484; 85025; 85610; 85730; 87086; 90471; 90715; 93005; 99285; J7040; Q9967

== ENCOUNTER 2024-07-14 13:29 | Outpatient (CLI) | payer BC, SELFPAY ==
--- NOTE | ~2024-07-14 | XR_ITS ---
MODIFIED ESOPHAGRAM HISTORY: Dysphagia. TECHNIQUE: Modified barium esophagram was performed on 07/14/2024. Dr. Gibson administered fluoros copy and performed the exam with speech pathologist. Patient was seated for lateral fluoroscopic ramirez ging for ingestion of thin liquids, pudding, solids and quantified amounts, followed by thin liquids in uncontrolled amounts. This was recorded on tape. Due to a technical error no the fluoroscopy time only dosage and a fluoroscopic image were not recorded. FINDINGS: Oral stage: Adequate function. Pharyngeal stage: There is reduced laryngeal elevation and adduction. Reduced tongue base retraction. There is no epiglottic inversion. There is vallecular and piriform sinus residue. There is laryngeal penetration with aspiration after the swallow. Anterior osteophytes are seen along the mid to lower cervical spine. Cervical/esophageal stage: Adequate function. IMPRESSION: Pharyngeal dysphagia with laryngeal penetration and aspiration after the swallow. Please correlate with speech pathologist findings and specific feeding recommendations. Reviewed, dictated and finalized at location A. IMPRESSION: Pharyngeal dysphagia with laryngeal penetration and aspiration afte r the swallow. Please correlate with speech pathologist findings and specific feeding recommendations.
--- OUTSIDE RECORDS SUMMARY | 2024-07-14 14:22 | XMS_ITS | Patient Health Record ---
Author Organization [facility] Address [address] [place] [address] Care Team Providers Care Keno Terminal Operator Name Role Phone Carli Figueroa Unavailable [phone] RajaniLola ruano Unavailable [phone] Migration, Provider Unavailable Unavailable Allergies No Known Allergies Reason For Referral No Information Medications Medication [...] bedtime Oral daily for 90 days Active Levothyroxine Sodium 75 MCG Oral for 90 Days Active busPIRone HCl 5 MG 1 tablet Oral Twice a day for 90 days Active Tamsulosin HCl 0.4 MG Oral for 30 Days Active Xarelto 10 MG Oral for 90 Days Active Entresto 24-26 MG 1 tablet Orally Twic e a day Active Gemtesa 75 MG 1 tablet Orally Once a day Active Mirtazapine 15 MG Take 1.5 Tablets (22 .5 mg) by mouth daily at bedtime. Activ e Social History Tobacco Use: Social History Observation [...] degree you have received?: Master's degree (e.g., NATHALIE, , Ashley, MEd, RESIDENTIAL DESIGNER, NICK)Are you currently employed?: NoWho is your employer?: [employer].Marriage and SexualityWhat is your relationship status?: WidowedAre you sexually active?: YesDo you use protection during sex?: NoHow many children do you have?: 1 (Notes: note: has 1 living daughter, and 1son that 1995)Home and EnvironmentAre there any guns present in your home?: NoAdvance DirectiveDo you have an advance directive?: NoDo you have a medical power of bankruptcy attorney?: No Social History Substance UseDo you [...] Master's degree (e.g., MA, MS, Ashley, MEd, RESIDENTIAL DESIGNER, NICK)Are you currently employed?: NoWho is your employer?: [employer] Ret.Marriage and SexualityWhat is your relationship status?: WidowedAre you sexually active?: YesDo you use protection during sex?: NoHow many children do you have?: 1 (Notes: note: has 1 living daughter, and 1son that 1995)Home and EnvironmentAre there any guns present in your home?: NoAdvance DirectiveDo you have an advance directive?: NoDo you have a medical power of bankruptcy attorney?: No Problems Problem Type SNOMED Code ICD Code Onset Dates Problem Status W/U Status Risk Notes Problem Mild recurrent major depression (31661435) Major depressive disorder, recurrent, mild (F33.0) 4 Active confirmed Problem Anxiety disorder (829233588) Anxiety disorder, unspecified (F41.9) 4 Active confirmed Problem Chronic insomnia (347658790) Chronic insomnia (F51.04) Active confirmed Problem Recurrent major depression (66467098) Depression, major, recurrent, 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) Active confirmed Vital Signs Heart Rate 55 /min 03/08/2024 Height-cm 172.72 cm 03/08/2024 Blood pressure diastolic 70 mm Hg 03/08/2024 Weight-kg 74.84 kg 03/08/2024 Height 68.00 in 03/08/2024 Blood pressure systolic 120 mm Hg 03/08/2024 Weight 165.0 lbs 03/08/2024 BMI 25.09 kg/m2 03/08/2024 Encounters Encounter Location Date Provider Diagnosis [facility] [address] [facility] [address] [facility] [address] [place] [address] 09/10/2023 Lola Arenas Major depressive disorder, recurrent, mild F33.0 ; Anxiety disorder, unspecified F41.9 and Chronic insomnia F51.04 [facility] [address] [facility] [address] [facility] [address] [place] [address] 03/08/2024 Carli Figueroa Depression, major, recurrent, in remission F33.40 ; Anxiety disorder, unspecified F41.9 and Chronic insomnia F51.04 [facility] [address] [facility] [address] [facility] [address] [place] [address] 08/02/2023 Provider Migration [facility] [address] [facility] [address] [place] [address] 08/03/2023 Provider Migration [facility] [address] [place] [address] [address] [facility] [address] [place] [address] 01/28/2024 Carlishalom Damonchana Major depressive disorder, recurrent, mild F33.0 [place] [id number] [facility] [address] [facility] [address] [place] [address] 01/28/2024 Carli Marisolchana Major depressive disorder, recurrent, mild F33.[address] [facility] [address] [place] [address] 06/30/2024 Carli Figueroa Assessments Encounter Date Diagnosis (ICD Code) Assessment [...] (ICD-10 - F41.9) cont buspirone 5mg BID 01/28/2024 Major depressive disorder, recurrent, mild (ICD-10 [...] Of Treatment Next Appt Details Provider Name:Carli galan, 08/06/2024 01:00:00 PM, [facility] [facility] [address], [place], [address], Insurance Providers Payer Name Payer Address Payer Phone Subscriber Number Group Number Insured Name Patient Relationship to Insured Coverage Start Date Coverage End Date [employer] [employer] [address] [place] [address] [id number] GIAN LEE Self - patient is the insured Medical (General) History Medical History History ICD Code Problems: Anxiety Chronic insomnia Mild recurrent major depression , Surgical History Surgery Date(Month/Year) Reconstructive surgery bilateral shoulde rs 2011 and 201503/17/2015 hammer toe surgery rt foot
--- OUTSIDE RECORDS SUMMARY | 2024-07-14 14:22 | XMS_ITS | Continuity of Care Document ---
Author Organization [facility] Address [address] [place] [address] Phone Care Team Providers Care Sap Pp Consultant Name Role Phone Brennon Davis MD Unavailable [...] visit Office/outpatient visit,est, mod 2017 Office/outpatient visit,est, [facility] 2017 X-ray exam shoulder minimum 2 views Office/outpatient visit,est, low 2015 Office/outpatient visit,est, low 2014 Global/Postop followup visit Global/Postop followup visit X-ray exam shoulder minimum 2 views Global/Postop followup visit Office/outpatient visit,[facility], [facility] 2014 Advance Directives Directive Yes / No Effective Date File Name No Information Encounters Encounter Description Practice Location Reason(s) For Visit Diagnoses Date Provider Providers Copied on Encounter [facility], [address], [place], [place], [id number], [place] tel:[phone] [facility] Bilateral Shoulders (chief complaint) Presence of left artificial shoulder jointPresence of right artificial shoulder joint May-0 6-201 9 Ryan Willett. [address] [facility], [place] [address], [place], [place], [id number] , [place]. tel:[phone] Referring Provider: Gamal Hong, [address] [facility] [address], [place], [address]. tel:[phone] [facility], [address] [address], [place], [place], [id number], [place] [phone] [facility] Right shoulder (chief complaint) Presence of right artificial shoulder joint Aug-0 3-201 8 Ryan Brennon. [address] [facility], [place] [address], [place], [place], [id number] , [place]. tel: [phone] [facility], [address] [address], [place], [place], [id number], [place] tel:[phone] [facility] Right shoulder (chief complaint) Presence of right artificial shoulder joint Gibson-2 0-201 8 Ryan Brennon. [address] [facility], [place] [address], [place], [place], [id number] , [place]. tel: [phone] [facility], [address], [id number], [place] [phone] [facility] right shoulder (chief complaint) Presence of right artificial shoulder joint May-2 3-201 8 Ryan Brennon. [address] [facility], [facility] [address], [place], [place], [id number] , [place]. tel: [phone] [facility], [address] [address], [place], [place], [id number], [place] [phone] [facility] Primary osteoarthritis, right shoulder Apr-1 6-201 8 Ryan Willett. [address] [facility], [place] [address], [place], [place], [id number] , [place]. tel: [phone] Office/outpat ient visit,est, mod [facility], [address] [address], [place], [place], [id number], [place] tel:[phone] [facility] Right Shoulder (chief complaint) Primary osteoarthritis, right shoulder Feb-2 6-201 8 Ryan Willett. [address] [address], [place], [place], [id number] , [place]. tel:[phone] Office/outpat ient visit,est, [facility], [address] [address], [place], [place], [id number], [place] [phone] [facility] right shoulder pain (chief complaint) Pain in right shoulderPrimary osteoarthritis, right shoulder Feb-2 1-201 8 Dinan Mariam. [address] [place] [address], [place], [place], [id number] , [place]. tel:[phone] Referring Provider: Gamal Hong, [facility] [address], [place], [address]. tel:[phone] Office/outpat ient visit,est, [facility], [address] [address], [place], [place], [id number], [place] tel:[phone] [facility] Left Shoulder (chief complaint) Presence of left artificial shoulder joint Apr-0 5-201 6 Dinan Mariam. [address] [place] [address], [place], [place], [id number] , [place]. tel:[phone] Office/outpat ient visit,est, [facility], [address] [place] [address], [id number], [place] [phone] [facility] Presence of left artificial shoulder joint Oct-0 5-201 5 Ryan Willett. [address] [place] [address], [place], [place], [id number] , [place]. tel:[phone] [facility], [address] [place] [address], [id number], [place] tel:[phone] [facility] Shoulder replacement status Aug- 0-201 5 Ryan Willett. [address] [facility], [place] [address], [place], [place], [id number] , [place]. tel: [phone] [facility], [address] [address], [place], [place], [id number], [place] tel:-[phone] [facility] Shoulder replacement status 5 Ryan Willett. [address] [facility], [place] [address], [place], [place], [id number] , [place]. tel: [phone] [facility], [address], [id number], [place] tel:[phone] [facility] Shoulder replacement status 5 Ryan Willett. [address] [facility], [address], [id number] , [place]. tel: [phone] [facility], [address], [id number], [place] tel:[phone] [facility] Shoulder replacement status 5 Ryan Willett. [address] [facility], [address], [id number] , [place]. tel: [phone] [facility], [address], [id number], [place] tel:[phone] [facility] ARTHROPATHY NOS-SHLDER 5 Frankie Joyce. [address] [facility], [place] [address], [place], [place], [id number] , [place]. tel: [phone] Office/outpat ient visit,new, mod [facility], [address], [id number], [place] tel:[phone] [facility] ARTHROPATHY NOS-SHLDER May- 1 5 Ryan Willett. [address], [id number] , [place]. tel: [phone] Family History Family Member Type Diagnosis Age [...] Unspecified Payers Payer name Insurance type Covered republican ID Maryjared pa(s) Trisha Blue Cross Blue Shiel d [facility] [id number] Social History Type Description Quantity Date Captured [...]
--- OUTSIDE RECORDS SUMMARY | 2024-07-14 14:22 | XMS_ITS | Referral Summary ---
Author Organization [facility] Address [address] [place] [address] Care Team Providers Care Mosaic Technician Name Role Phone Martinez Pace MD Primary Care Provider Dion Abraham MD Unavailable [phone] Basil Adhikari MD Unavailable [phone] Encounters Date Type Department Care Team Description 07/02/2024 Telephone [facility] - [facility] [address] [address] Carmela Arrieta Au.D. 07/02/2024 Telephone [facility] - [facility] [address] [place] [address] Carmela Arrieta Au.D. 06/23/2024 Telephone [facility] [address] [place] [address] Nasra Ruff B.A. 06/23/2024 Orders Only [facility] [address] [facility] [address] [place] [address] Devaughn Clement MD Aneurysm of ascending aorta without rupture (Primary Dx) 06/01/2024 Telephone [facility] [address] [facility] [address] [place] [phone] Scott Osei EP-C CRN Follow Up 05/26/2024 Results Follow-Up [facility] [address] [place] [address] Klaus Humphrey MD PhD Atrial fibrillation, unspecified type (HCC) (Primary Dx) 05/13/2024 1:30 PM SCREW EYE ASSEMBLER - 05/13/2024 11:59 PM SCREW EYE ASSEMBLER Hospital Encounter [facility] Radiology [address] [place] [address] Discharge Disposition: Discharge to home or self care 05/10/2024 2:37 PM SCREW EYE ASSEMBLER - 05/13/2024 4:35 PM SCREW EYE ASSEMBLER Hospital Encounter [facility] [address] [place] [address] Alejandro Soliz III, MD Lacy, MD Sundar Gilliland, Hernandez Hsieh MD Fall, initial encounter (Primary Dx); Head injury, initial encounter; Hematoma of left thigh; Dysphagia, unspecified type Discharge Disposition: Discharge to home, home health skilled care 05/11/2024 11:55 AM SCREW EYE ASSEMBLER Ancillary Procedure [facility] IP [address] [facility] [address] [place] [address] 04/03/2024 9:45 AM SCREW EYE ASSEMBLER - 04/20/2024 3:00 PM SCREW EYE ASSEMBLER Hospital Encounter [facility] [address] [place] [address] Pedro Senior MD Martin, MD Iam Zavala, Marissa Montenegro, Vishnu Del Castillo MD Hammes, MD Gallito Alvarez, Louann Stuart MD Acute respiratory failure with hypoxia (HCC) (Primary Dx); Hypotension, unspecified hypotension type [...] (HCC) [I82.403]; Hyperkalemia [E87.5]; Paroxysmal atrial fibrillation ([facility]) Discharge Disposition: Discharge to an Rehab facility 04/16/2024 9:04 AM SCREW EYE ASSEMBLER Anesthesia Event [facility] [address] [place] [phone] Sara Schwartz MD Shelley, Joshua Michael, CRNA 04/16/2024 9:00 AM SCREW EYE ASSEMBLER - 04/16/2024 9:45 AM SCREW EYE ASSEMBLER Surgery [facility] [address] [place] [address] Roderick Bedolla MD PERCUTANEOUS ENDOSCOPIC GASTROSTOMY from Last 3 Months Allergies No known [...] by mouth daily Active acetaminophen 500 mg capsule Take 2 capsules (1,000 mg total) by mouth every 6 (six) hours as needed for pain 5 Active aspirin 81 mg chewable tablet Take 1 tablet (81 mg total) by mouth daily 5 03/28/19 26 Active amiodarone (PACERONE) 100 mg tablet Take 1 tablet (100 mg total) by mouth daily 30 tablet 1 5 04/21/19 26 Active apixaban (ELIQUIS) 5 mg tablet Administer 1 tablet (5 mg total) per feeding tube every 12 (twelve) hours 60 tablet 5 Active levothyroxine (SYNTHROID) 88 mcg tablet Take 1 tablet (88 mcg total) by mouth press cleaner before breakfast 30 tablet 5 Active rosuvastatin (CRESTOR) 20 mg tablet Take 1 tablet (20 mg total) by mouth daily 30 tablet 5 04/21/19 26 Active sodium chloride 1 gram tablet Take 1 tablet (1 g total) by mouth 2 (two) times a day 60 tablet 5 Active oxyBUTYnin (DITROPAN) 5 mg tablet Administer per tube 1 tablet (5 mg total) daily 5 Active midodrine (PROAMATINE) 10 mg tabletIndication s:Symptomatic Orthostatic Hypotension Administer per tube 1 tablet (10 mg total) 3 (three) times a day before meals 90 tablet 5 Active lidocaine (LIDODERM) 5 % Place 2 patches on the skin daily Remove & discard patch within 12 hours or as directed by MD. 30 patch 5 Active sodium chloride 0.9 % solution Administer per tube 30 mL 6 (six) times a day 1000 mL 1 5 Active Active Problems Problem Noted Date Diagnosed Date Abnormal vital signs 05/13/2024 Assessment & Plan (05/13/2024 2:10 PM SCREW EYE ASSEMBLER): - Two charted HR in the 30s on 05/12 around 0445 AM. No symptoms reported at this time. Patient monitored in PM on 05/12 and 05/13 without observed HR in 30s. Patient reports his heart rate is being monitored by his plastic welding machine operator Dr. Abraham. Patient had a recent TTE in 03/2024 with mild left ventricular systolic dysfunction, global kypokinesis, EF 50-55%, normal left ventricular cavity size, mild to moderate concentric left ventricular hypertrophy, normal aortic valve appearance and function, normal caliber aortic root. Back pain 05/12/2024 Assessment & Plan (05/12/2024 2:21 PM SCREW EYE ASSEMBLER): - OSH CT: Multilevel degenerative changes are noted in the spine, including a wedge deformity of the L2 vertebral body. - Lidoderm patch ordered Hematoma of leg, left, initial encounter 025 Assessment & Plan (05/13/2024 1:56 PM SCREW EYE ASSEMBLER): - CTA overread w/ large L hematoma, indeterminate extrav, interval occlusion L external iliac aneurysm - No acute IR intervention warranted - Continue compression (PRASAD wrap) -> d/c'd on 05/12 - Serial CBCs (q12) -> daily - NV checks q4h - Activity liberalized - 05/11: resumed aspirin, start DVT ppx - 05/12: resume Eliquis, monitor Hgb - 05/13: Hgb lateral at 7.8 (7.9) - Follow up with ACCS as needed Penile pain 05/11/2024 Assessment & Plan (05/12/2024 11:34 AM SCREW EYE ASSEMBLER): - Patient reports on Vibegron for penile pain and reports previously tested for UTI which was negative - UA (05/10): neg nitrite, neg LE - will not reflex - G/C, trich urine pending- has not been sent as of 05/12 - Continue oxybutynin while inpatient Hyponatremia 05/11/2024 Assessment & Plan (05/13/2024 1:55 PM SCREW EYE ASSEMBLER): - Na 124 on admission - Previous issues with hyponatremia, discharged on Salt tabs. Family giving Pedialyte flushes via PEG per outpatient physician recommendation - Continue NaCl tablet 1g BID - Na flushes via PEG, adjust as needed - 05/11: Na trend 123- 127 - 05/12: Na 129 - 05/13: Na 129 - Follow up with PCP in 1 week for follow up of sodium levels Discharge planning issues 05/11/2024 Assessment & Plan (05/13/2024 1:57 PM SCREW EYE ASSEMBLER): - 05/11: new admit, monitor Hgb and Na, PT/OT - 05/12: Na improving, Hgb lateral. Start Eliquis, monitor CBC, continue PT/OT, monitor BP - 05/13: increased midorine, work with therapy. SBP improved, cleared for home. Okay to discharge. Patient is medically stable for discharge, SW/CM updated. Discharge pending therapy- completed. Treatment plan note completed [x] ABLA (acute blood loss anemia) 05/11/2024 Assessment & Plan (05/13/2024 1:59 PM SCREW EYE ASSEMBLER): - Hgb trend (05/10): 9.3- 8.7 - Hgb trend (05/11): 8.2- 8.2- 7.8- - Hgb trend (05/12): 7.7- 7.9 - Hgb (05/13): 7.8 - CBC was monitored, no active signs or symptoms of bleeding, hemodynamically unsupported at discharge Fall, initial encounter 05/10/2024 Assessment & Plan (05/11/2024 2:30 PM SCREW EYE ASSEMBLER): - mechanical fall - hypotensive at OSH, responsive to fluid resuscitation - CT head/spine overread w/o acute intracranial process or fractures, hematoma present correlating w/ exam - Cleared C-spine in ED Hyperkalemia 04/08/2024 Dysphagia 04/07/2024 Assessment & Plan (05/13/2024 3:35 PM SCREW EYE ASSEMBLER): - s/p G-tube - carbide tool die maker consulted - Tube feeds via PEG, meds via PEG - patient and family support report recent advancement to nectar thick liquids (mostly for comfort) - ADVANCED MANUFACTURING TECHNICIAN consult - 05/12: appropriate for MBS, pending - 05/13: MBS to determine if diet can be advanced prior to discharge -- recommend NPO with ice chips - Discharge tube feeds: Isosource 220 ml via g-tube five times daily + 30 ml saline flush via PEG 6 times daily Hypotension 04/06/2024 Assessment & Plan (05/13/2024 1:55 PM SCREW EYE ASSEMBLER): - Continue home midodrine - 05/11: hypotensive with therapy to 80s systolic, but patient remains asymptomatic. Hgb lateral on last check. 500 cc NS bolus given. - 05/12: hypotensive to 80s SBP. Midodrine given, improved to 90s systolic. No urine output this morning. NS 250 cc bolus ordered. - 05/13: hypotensive to 80s SBP, asymptomatic. Increased midodrine to 10 mg TID, SBP improved to 120s/. Worked with therapy, okay for home. 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 Numbness and tingling of upper extremity 024 Encounter for colonoscopy du e to history of adenomatous colonic polyps 11/03/2023 Cerebral infarction, unspecified 09/10/2023 Assessment & Plan (05/12/2024 11:34 AM SCREW EYE ASSEMBLER): - Neurology note 04/08/24 recommends transitioning to Eliquis from Xarelto, but defer to vascular surgeon. If continues on Xarelto, recommend addition of ASA 81 mg. - Discharge note 04/09 notes Eliquis + asa + crestor - Continue rosuvastatin 20 mg - ASA 81 mg resumed 05/11 - Eliquis resumed 05/12 Encounter for colonoscopy following colon polyp removal 11/24/2018 Overview (11/24/2018): Added automatically from request for surgery [id number] Adenomatous polyp of cecum 06/18/2018 Overview (06/18/2018): Added automatically from request for surgery [id number] [facility] current use of anticoagulant therapy 0 11/07/2016 Basal cell carcinoma (BCC) of antihelix of ear 0 04/16/2016 Ascending aortic aneurysm 09/05/2015 Deep vein thrombosis (DVT) 06/22/2015 Assessment & Plan (05/11/2024 2:08 PM SCREW EYE ASSEMBLER): - On Eliquis - Bilateral foot swelling - BLE duplex (05/11): 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) Pulmonary embolism 06/22/2015 Thyroid disease Assessment & Plan (05/11/2024 1:48 PM SCREW EYE ASSEMBLER): - Continue levothyroxine 88 mcg daily Neuropathy Depression Overview (07/18/2017): Depression GARCÍA on CPAP Assessment & Plan (05/11/2024 1:48 PM SCREW EYE ASSEMBLER): - Patient reports not wearing at this time OA (osteoarthritis) History of pulmonary embolus (PE) Assessment & Plan (05/12/2024 11:30 AM SCREW EYE ASSEMBLER): #Afib #Embolic stroke, history of - Remote history of PE, recent embolic strokes - Recently switched from Xarelto to Eliquis - 05/12: resume Eliquis, monitor Hgb Immunizations Immunization Administration Dates Next Due Influenza, Unspecified 01/16/2024 Moderna SARS-CoV-2 Monovalen t Vaccination (12+ YRS) 05/30/2020,04/18/2020 Tdap 05/10/2024(Deferred: Other - pt states received at [facility]) Social History Tobacco Use Types Packs/Day Years Used Date Smoking Tobacco: Former Cigarettes 1 12 0 1962 - 1974 Smokeless Tobacco: Never Tobacco Cessation:Counseling Given: Not Answered Alcohol Use Standard Drinks/Week Comments Yes 3 (1 standard drink = 0.6 oz pur e alcohol) 2x a day [facility] Utilities Answer Date Recorded In the past 12 months has [employer], gas, oil, or water company threatened to shut off services in your home? No 05/12/2024 Social Connection and Isolat ion Panel [NHANES] Answer Date Recorded In a typical week, how many times do you talk on the phone with family, friends, or neighbors? More than three times a week 05/12/2024 How often do you get togethe r with friends or relatives? More than three times a week 05/12/2024 How often do you attend chur ch or islam services? Never 05/12/2024 Do you belong to any clubs o r organizations such as denominational groups, unions, fraternal or athletic groups, or school groups? No 05/12/2024 How often do you attend meet ings of the clubs or organizations you belong to? Never 05/12/2024 Are you , , di vorced, , never , or living with a partner? Living with partner 05/12/2024 AUDIT-C Answer Date Recorded Q1: How often [...] food, housing, medical care, and heating? Not hard at all 05/12/2024 Hunger Vital Sign Answer Date Recorded Within the past 12 months, y ou worried that your food would run out before you got the money to buy more. Never true 05/12/19 25 Within the past 12 months, t he food you bought just didn't last and you didn't have money to get more. Never true 05/12/2024 PRAPARE - Transportation Answer Date Re corded In the past 12 months, has l ack of transportation kept you from medical appointments or from getting medications? No 04/18 In the past 12 months, has l ack of transportation kept you from meetings, work, or from getting things needed for daily living? No 05/12/2024 Housing Stability Vital Sign Answer Martin e Recorded In the last 12 months, was t here a time when you were not able to pay the mortgage or rent on time? No 05/12/2024 In the past 12 months, how m any times have you moved where you were living? 0 05/12/2024 At any time in the past 12 m [facility], were you homeless or living in a usp (including now)? No 05/12/2024 Personal Safety Answer Date Recorded Have you ever been in or are you currently in a harmful physical or emotional relationship or is someone making you feel afraid or unsafe? Denies 05/10/2024 Sex and Gender Information Value Date Recorded Sex Assigned at Not on file Legal Sex Male 12:56 AM SCREW EYE ASSEMBLER Gender Identity Not on file Sexual Orientation Straight 10/21/2019 9: 52 AM CDT Last Filed Vital Signs Vital Sign Reading Time Taken Comments Blood Pressure 106/57 05/13/2024 3:07 PM SCREW EYE ASSEMBLER Pulse 56 05/13/2024 3:07 PM SCREW EYE ASSEMBLER Temperature 36.8 C (98.2 F) 05/13/2024 3:07 PM SCREW EYE ASSEMBLER Respiratory Rate 16 05/13/2024 3:07 PM SCREW EYE ASSEMBLER Oxygen Saturation 100% 05/13/2024 3:07 PM SCREW EYE ASSEMBLER Inhaled Oxygen Concentration - - Weight 63.4 kg (139 lb 12.8 oz) 05/11/2024 2:56 AM SCREW EYE ASSEMBLER Height 172.7 cm (5' 8 ) 05/11/2024 2:56 AM SCREW EYE ASSEMBLER Body Mass Index 21.26 05/11/2024 2:56 AM SCREW EYE ASSEMBLER Plan of Treatment Not on file Medical Devices Implanted Type Area Data Migration Lead Device Identifier Shelf Expiration Date Model / Serial / Lot Leyva [employer] Konect Resilia Aortic Valved Conduit 27mm [id number] - [id number] - [id number] Implanted:Qty: 1 on 03/18/2024 by Basil Adhikari MD at [facility] Prosthetic Valve N/A: Aortic Valve [employer] 01/06/2027 [id number] / [id number] / [employer] 18f Manta Vascular Closure Device 2115 - S0 - [id number] Implanted:Qty: 1 on 03/22/2024 by Basil Adhikari MD at [facility] Vascular Closure Device [employer] Inc 01/06/2025 2115 / 0 / [id number] Cement Bone Cmw 2 20 Gm Fast Set Sterile - [id number] Implanted:Qty: 1 on 2017 by Brennon Davis MD at [facility] Right: Shoulder Depuy [employer] Inc 10/15/2019 3322-02 0 / / [id number] Component Glenoid Comprehensive Regenerex Titanium Clay Porous Shoulder Modular Hybrid Post - [id number] Implanted:Qty: 1 on 2017 by Brennon Davis MD at [facility] Right: Shoulder [employer]av[employer] [id number] 01/21/2027 PT-1139 50 / / [id number] Component Glenoid Comprehensive Hybrid Large H4 Mm Shoulder Base Modular - [id number] Implanted:Qty: 1 on 2017 by Brennon Davis MD at [facility] Right: Shoulder [employer] [id number] 03/23/2022 [id number] / / [id number] Stem Humeral Comprehensive Porous Mini L83 Mm Od15 Mm Shoulder Reverse System - [id number] Implanted:Qty: 1 on 2017 by Brennon Davis MD at [facility] Right: Shoulder [employer] [id number] 04/10/2027 [id number] / / [id number] Head Humeral Bio-Modular [place] 4 Mm Offset H22 Mm Od54 Mm Shoulder Sterile - [id number] Implanted:Qty: 1 on 2017 by Brennon Davis MD at [facility] Right: Shoulder [employer] 08/16/2019 [id number] / / [id number] Cryolife Inc Graft Biological Cardiovascular Photofix 6x8cm Acellular Dermis Pfp 6x8 - [id number] Implanted:Qty: 1 on 03/18/2024 by Basil Adhikari MD at [facility] N/A: Aorta [employer] Inc 10/24/2025 PFP 6X8 / / [id number] Arthrex Inc Device Closure Tigertape Sternal Cerclage Blunt Needle Ar-7289t - [id number] Implanted:Qty: 1 on 03/18/2024 by Basil Adhikari MD at [facility] N/A: Sternum Arthrex Inc 12/14/2028 AR-7289 T / / [id number] 2 Arthrex Inc Device Closure Tigertape Sternal Cerclage Blunt Needle Ar-7289t - [id number] Implanted:Qty: 1 on 03/18/2024 by Basil Adhikari MD at [facility] N/A: Sternum Arth[employer] Inc 12/14/2028 AR-7289 T / / [id number] 2 Estrada Vascular Plug Occluder Cvasc Embl Self Expanding Amplatzer [id number] Nitinol 9-Avp2-014 - S0 - [id number] Implanted:Qty: 1 on 03/22/2024 by Basil Adhikari MD at [facility] Left: Internal Iliac (Hypogastr ic) Artery Estrada Vascular [id number] 05/14/2025 9-AVP2- 014 / 0 / [id number] Wl [employer] Excluder 18mm 14.5-16.5mm 11.5cm Stent Abrasion Resistant [id number] - [id number] - [id number] Implanted:Qty: 1 on 03/22/2024 by Basil Adhikari MD at [facility] Left: External Iliac Artery Wl [employer] [id number] 11/17/2026 [id number] / [id number] / Wl [employer] Stent Graft Thoracic Conformable Tag [id number] - S0 - [id number] Implanted:Qty: 1 on 03/22/2024 by Basil Adhikari MD at [facility] Left: External Iliac Artery Wl [employer] [id number] 08/14/2026 [id number] 10 / 0 / Amplatzer Dope Weigh Operator Lisa Amplatzer 14mm 100cm 8mm 1 Layer Wire Mesh 1 Lobe Design Optimal 9-Plug-014 - S0 - [id number] Implanted:Qty: 1 on 03/22/2024 by Basil Adhikari MD at [facility] Left: Internal Iliac (Hypogastr ic) Artery Amplatzer Dope Weigh Operator Lisa 03/16/2028 9-PLUG- 014 / 0 / [id number] Procedures Procedure Name Priority Date/Time Associated Diagnosis Comments FL MODIFIED BARIUM SWALLOW W VIDEO IP Routine 05/13/2024 2:03 PM SCREW EYE ASSEMBLER ADVANCED MANUFACTURING TECHNICIAN EVALUATE AND TREAT VIDEOFLUOROSCOPIC SWALLOW STUDY Routine 05/13/2024 1:34 PM SCREW EYE ASSEMBLER EGFR Routine 05/12/2024 9:04 PM SCREW EYE ASSEMBLER DIFFERENTIAL AUTO Routine 05/12/2024 9:0 4 PM SCREW EYE ASSEMBLER BASIC METABOLIC PANEL Routine 05/12/2024 9:04 PM SCREW EYE ASSEMBLER CBC WITH AUTO DIFFERENTIAL Routine 05/12/2024 9:04 PM SCREW EYE ASSEMBLER EGFR Routine 05/12/2024 7:40 AM SCREW EYE ASSEMBLER DIFFERENTIAL AUTO Timed 05/12/2024 7:4 0 AM SCREW EYE ASSEMBLER BASIC METABOLIC PANEL Routine 05/12/2024 7:40 AM SCREW EYE ASSEMBLER CBC WITH AUTO DIFFERENTIAL Timed 05/12/2024 7:40 AM SCREW EYE ASSEMBLER DIFFERENTIAL AUTO Timed 05/12/2024 1:4 1 AM SCREW EYE ASSEMBLER CBC WITH AUTO DIFFERENTIAL Timed 05/12/2024 1:41 AM SCREW EYE ASSEMBLER AMPHETAMINE, URINE, CONFIRMATION Routine 05/11/2024 3:05 PM SCREW EYE ASSEMBLER EGFR STAT 05/11/2024 3:05 PM SCREW EYE ASSEMBLER BASIC METABOLIC PANEL STAT 05/11/2024 3:05 PM SCREW EYE ASSEMBLER DRUGS OF ABUSE SCREEN, URINE WITH REFLEX CONFIRMATION Routine 05/11/2024 3:05 PM SCREW EYE ASSEMBLER US VEIN DUPLEX LOWER EXTREMITY BILATERAL COMPLETE IP Routine 05/11/2024 12:49 PM SCREW EYE ASSEMBLER DIFFERENTIAL AUTO Timed 05/11/2024 10:30 AM SCREW EYE ASSEMBLER CBC WITH AUTO DIFFERENTIAL Timed 05/11/2024 10:30 AM SCREW EYE ASSEMBLER EGFR Routine 05/11/2024 4:55 AM SCREW EYE ASSEMBLER DIFFERENTIAL AUTO Timed 05/11/2024 4:5 5 AM SCREW EYE ASSEMBLER CBC WITH AUTO DIFFERENTIAL Timed 05/11/2024 4:55 AM SCREW EYE ASSEMBLER COMPREHENSIVE METABOLIC PANEL Routine 05/11/2024 4:55 AM SCREW EYE ASSEMBLER DIFFERENTIAL AUTO Routine 05/11/2024 1:3 2 AM SCREW EYE ASSEMBLER CBC WITH AUTO DIFFERENTIAL Routine 05/11/2024 1:32 AM SCREW EYE ASSEMBLER CBC WITHOUT DIFFERENTIAL STAT 025 8:[address] BODY OUTSIDE CONSULT Routine 05/10/19 25 7:00 PM SCREW EYE ASSEMBLER NEURO CT OUTSIDE CONSULT Routine 025 6:57 PM SCREW EYE ASSEMBLER NEURO CT OUTSIDE CONSULT Routine 025 6:[address] BODY OUTSIDE CONSULT Routine 05/10/19 6:[address] BODY OUTSIDE CONSULT Routine 05/10/19 25 6:47 PM SCREW EYE ASSEMBLER URINALYSIS AND REFLEX TO MICROSCOPIC AND CULTURE STAT 05/10/2024 4:53 PM SCREW EYE ASSEMBLER B CHECK SAMPLE STAT 05/10/2024 3:18 PM SCREW EYE ASSEMBLER AR CRITICAL CARE ILL/INJURED PATIENT INIT 30-74 MIN Routine 05/10/2024 3:13 PM SCREW EYE ASSEMBLER POC BLOOD GAS AND CHEMISTRIES, VENOUS Routine 05/10/2024 2:50 PM SCREW EYE ASSEMBLER THROMBOELASTOMETRY PANEL - EXTRINSIC Routine 05/10/2024 2:47 PM SCREW EYE ASSEMBLER THROMBOELASTOMETRY PANEL - HEPARIN Routine 05/10/2024 2:47 PM SCREW EYE ASSEMBLER THROMBOELASTOMETRY PANEL - INTRINSIC Routine 05/10/2024 2:47 PM SCREW EYE ASSEMBLER THROMBOELASTOMETRY PANEL - FIBRINOGEN Routine 05/10/2024 2:47 PM SCREW EYE ASSEMBLER COMPREHENSIVE METABOLIC PANEL Routine 05/10/2024 2:47 PM SCREW EYE ASSEMBLER EGFR Routine 05/10/2024 2:47 PM SCREW EYE ASSEMBLER DIFFERENTIAL AUTO Routine 05/10/2024 2:4 7 PM SCREW EYE ASSEMBLER THROMBOELASTOMETRY PANEL Routine 025 2:47 PM SCREW EYE ASSEMBLER PROTIME-INR Routine 05/10/2024 2:47 PM SCREW EYE ASSEMBLER APTT Routine 05/10/2024 2:47 PM SCREW EYE ASSEMBLER ETHANOL Routine 05/10/2024 2:47 PM SCREW EYE ASSEMBLER CBC WITH AUTO DIFFERENTIAL Routine 05/10/2024 2:47 PM SCREW EYE ASSEMBLER TYPE AND SCREEN Timed 05/10/2024 2:47 PM SCREW EYE ASSEMBLER MCT - MOBILE CARDIAC TELEMETRY EVENT MONITOR Routine 04/20/2024 2:53 PM SCREW EYE ASSEMBLER Paroxysmal atrial fibrillation (HCC) EGFR Routine 04/20/2024 12:20 AM SCREW EYE ASSEMBLER MAGNESIUM Routine 04/20/2024 12:20 AM SCREW EYE ASSEMBLER RENAL FUNCTION PANEL Routine 04/20/2024 12:20 AM SCREW EYE ASSEMBLER EGFR Routine 04/19/2024 12:41 AM SCREW EYE ASSEMBLER MAGNESIUM Routine 04/19/2024 12:41 AM SCREW EYE ASSEMBLER RENAL FUNCTION PANEL Routine 04/19/2024 12:41 AM SCREW EYE ASSEMBLER ECG 12-LEAD Routine 04/18/2024 10:45 AM SCREW EYE ASSEMBLER ECG 12-LEAD STAT 04/18/2024 7:41 AM SCREW EYE ASSEMBLER ECG 12-LEAD STAT 04/18/2024 3:01 AM SCREW EYE ASSEMBLER EGFR Routine 04/18/2024 12:24 AM SCREW EYE ASSEMBLER MAGNESIUM Routine 04/18/2024 12:24 AM SCREW EYE ASSEMBLER RENAL FUNCTION PANEL Routine 04/18/2024 12:24 AM SCREW EYE ASSEMBLER PERCUTANEOUS ENDOSCOPIC GASTROSTOMY 04/16/2024 9:04 AM SCREW EYE ASSEMBLER Dysphagia, unspecified type EGD 04/16/2024 7:56 AM SCREW EYE ASSEMBLER EGFR Routine 04/15/2024 12:25 AM SCREW EYE ASSEMBLER PROTIME-INR Routine 04/15/2024 12:25 AM SCREW EYE ASSEMBLER RENAL FUNCTION PANEL Routine 04/15/2024 12:25 AM SCREW EYE ASSEMBLER from Last 3 Months Results * FL Modified Barium Swallow W Video (05/13/2024 2:03 PM SCREW EYE ASSEMBLER) Anatomical Region Laterality Modality Head and Neck N/A Computed Radiogr aphy 05/13/2024 2:47 PM SCREW EYE ASSEMBLER Impressions 05/13/2024 2:50 PM SCREW EYE ASSEMBLER The swallowing mechanism is abnormal; see above comments. Please refer to the Speech Pathology procedure note for safe swallow recommendations as well as additional information regarding the oral-pharyngeal swallow function, plan of care, and recommended follow up. Dictated by: Zohreh Odom M.D. The radiology attending physician has personally reviewed this study, and had reviewed and/or edited this written report and agrees with it. Electronically signed by: Artemio Kruger M.D. [facility] 05/13/2024 2:50 PM SCREW EYE ASSEMBLER EXAMINATION: MODIFIED BARIUM SWALLOW HISTORY: Dysphagia. TECHNIQUE: This procedure was completed in conjunction with a Speech Language Pathologist. The patient was given barium of multiple different consistencies to swallow. Video fluoroscopy was employed during the exam. FINDINGS: Oral-pharyngeal swallow function is severely impaired. Penetration: Yes There is penetration of thin liquid, nectar thick liquid, honey thick liquid,. Solid. Penetration is not sensed. The penetrated material is not cleared. Aspiration: Yes There is aspiration of thin liquid, nectar thick liquid, honey thick liquid and solid. Aspiration is not sensed. The aspirated material is not cleared. Residue:Yes There is pharyngeal residue of thin liquid, nectar thick liquid, thick liquid, puree and solid. Residue is not sensed. The residual material is noted cleared. Other comments: None Procedure Note Artemio Kruger MD PhD - 05/13/2024 EXAMINATION: MODIFIED BARIUM SWALLOW HISTORY: Dysphagia. TECHNIQUE: This procedure was completed in conjunction with a Speech Language Pathologist. The patient was given barium of multiple different consistencies to swallow. Video fluoroscopy was employed during the exam. FINDINGS: Oral-pharyngeal swallow function is severely impaired. Penetration: Yes There is penetration of thin liquid, nectar thick liquid, honey thick liquid,. Solid. Penetration is not sensed. The penetrated material is not cleared. Aspiration: Yes There is aspiration of thin liquid, nectar thick liquid, honey thick liquid and solid. Aspiration is not sensed. The aspirated material is not cleared. Residue:Yes There is pharyngeal residue of thin liquid, nectar thick liquid, thick liquid, puree and solid. Residue is not sensed. The residual material is noted cleared. Other comments: None IMPRESSION: The swallowing mechanism is abnormal; see above comments. Please refer to the Speech Pathology procedure note for safe swallow recommendations as well as additional information regarding the oral-pharyngeal swallow function, plan of care, and recommended follow up. Dictated by: Zohreh Odom M.D. The radiology attending physician has personally reviewed this study, and had reviewed and/or edited this written report and agrees with it. Electronically signed by: Artemio Kruger M.D. Doris Turcios COW BUYER IMG FLUOROSCOPY PROCEDURE S Final Result * ADVANCED MANUFACTURING TECHNICIAN Evaluate and Treat (VFSS) (05/13/2024 1:34 PM SCREW EYE ASSEMBLER) Narrative Radha Grossman, LEONARDA - 05/13/2024 1:34 PM SCREW EYE ASSEMBLER Radha Grossman SLP 05/13/2024 4:16 PM Speech-Language Pathology: Videofluoroscopic Study of Swallow (VFSS/MBS) HPI/PMH *Admitted 05/10 HPI/PMH:Pt is an 83 y/o M with hx of ascending aortic aneurysm s/p biologic aortic root replacement (03/18/24), L common iliac aneurysm s/p endovascular repair (03/22/24), Afib (on eliquis), prior DVT/PE, and GARCÍA on CPAP. He was recently admitted at [facility] 04/03-04/20 for FTT and dysphagia, and PEG was placed 04/16/24. Also seen by neurology for presumed embolic strokes during that admission. Pt transferred from OSH for L thigh traumatic pseudoaneurysm with hematoma. Pt reports he has baseline gait instability, tried to walk to his bathroom on his own, and fell accidentally. Ground level fall, hit his head, no LOC, also hit his L thigh. ST hx 04/06/24-04/13/24 Sw tx ([facility]): Pt completed lingual press, push/pull, press against resistance, effortful swallow , and Roseanne. 04/05/24 MBS ([facility]): NPO with limited ice chips 04/03/24 CSE ([facility]): Full liquid diet as tolerated; Thin/regular liquids sips, meds with puree, small b/s Respiratory/Intubation Status:RA 05/10/[address]: No acute intracranial hemorrhage. Left frontal scalp hematoma extending into the periorbital soft tissues without subjacent fracture. No acute cervical spine fracture. Precautions: Fall, GARCÍA PLOF: TRIBAL, wears bilateral hearing aids, ambulates w/ walker Current Diet Order: CLD and NTL Baseline Diet: See speech therapy hx above. General Information Gian Lee 05/13/24 ADVANCED MANUFACTURING TECHNICIAN Received On: 05/13/24 General Observations: Alert and cooperative throughout the evaluation. Reason for Referral: To further evaluate swallow safety and function and need for diet modifications and strategy use. Pain Score: 0 If pain >4, was RN notified? 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 Pt w/ suspected C3 osteophyte that could have potentially impacted epiglottic movement and middle constriction. Deficits result in: Given pharyngeal deficits, pt w/ mild to moderate vallecular and pyriform sinus residue with nectar thick liquids (NTL) and honey thick liquids (HTL). Consistently at risk of spill from pyriform sinuses into laryngeal vestibule. Pt w/ trace pyriform sinus residue and mild to moderate vallecular residue with puree. Mild pyriform sinus residue and moderate to severe vallecular residue with soft solids. Residue built across trials and pt was not sensate or able to clear residue independently. Residue volumes with puree and soft solids also increased at end of study. Inconsistent high to deep penetration and aspiration with all liquid consistencies. Pt not sensate to aspiration. Throat clears, cued cough, and repeat swallow were unsuccessful for residue clearance or airway protection. Pt w/ mildly increased pharyngeal clearance with bolus hold and right head turn but ultimately unsuccessful for airway protection. No penetration or aspiration with puree or soft solids but with minimal pharyngeal clearance of residue that is consistently at risk of spilling into airway. ADVANCED MANUFACTURING TECHNICIAN to follow for swallowing therapy. Assessment Details & Results Purpose and Procedure of Videofluoroscopic Study of Swallow: Videofluoroscopic Study of Swallow completed to assess oropharyngeal swallow function and safety/efficiency of the swallow so that diet recommendations can be made. This test is completed in conjunction with Radiology. Results of this test are indicative of performance at the time of the exam. Standard procedure is in lateral view at 90 degrees. Consistencies Administered: Vivian thickened liquids, Honey thickened liquids, Purees, Solids Respiratory Support: No Significant Impairment- Respiratory support is adequate for speech & swallowing Administered consistencies contain barium product. Vivian Thickened Liquids: Laryngeal Penetration: Present Aspiration Present: Yes Timing: During, After, Before Amount: Moderate Response to aspiration: None Successful Modifications : Other (comment) (Bolus hold) Unsuccessful Modifications: Cough, Repeat swallow Successful Modification Combinations: None Unsuccessful Modification Combinations: None Penetration Aspiration Scale-Vivian: 8-Material enters the airway, passes below the vocal folds and no effort is made to eject Honey Thickened Liquids: Laryngeal Penetration: Present Aspiration Present: Yes Timing: Before, During, After Amount: Moderate Response to aspiration: None Successful Modifications : Turn head right (Right head turn) Unsuccessful Modifications: Turn head right, Repeat swallow, Cough Successful Modification Combinations: None Unsuccessful Modification Combinations: None Penetration Aspiration Scale-Honey: 8-Material enters the airway, passes below the vocal folds and no effort is made to eject Purees: Laryngeal Penetration: Present Aspiration Present: No Successful Modifications : None Unsuccessful Modifications: Cough, Repeat swallow Successful Modification Combinations: None Unsuccessful Modification Combinations: None Penetration Aspiration Scale-Puree: 5-Material enters the airway, contacts the vocal folds and is not ejected from the airway Solids: Laryngeal Penetration: Present Aspiration Present: No Successful Modifications : None Unsuccessful Modifications: Cough, Repeat swallow Successful Modification Combinations: None Unsuccessful Modification Combinations: None Penetration Aspiration Scale-Solids: 5-Material enters the airway, contacts the vocal folds and is not ejected from the airway MBSImp: MBSImp Results: Lip closure : 1-Interlabial escape, no progression to anterior lip Tongue Control with Bolus Hold: 0-Cohesive bolus between tongue to palatal seal Bolus Preparation/Mastication : 0-Timely and efficient chewing and mashing Bolus Transport/Lingual Motion : 0-Brisk tongue motion Oral Residue: 1-Trace residue lining oral structures (normal variant) Initiation of Pharyngeal Swallow : 0-Bolus head at posterior angle of ramus Soft Palate : 0-No bolus between soft palate and pharyngeal wall Laryngeal Elevation : 0-Complete superior movement of thyroid cartilage with complete approximation of arytenoids to epiglottic petiole Anterior Hyoid Excursion: 1-Partial anterior movement Epiglottic Movement: 1-Partial inversion Laryngeal Vestibular Closure: 1-Incomplete, narrow column of air/contrast in laryngeal vestibule Pharyngeal Stripping Wave: 1-Present but diminished Pharyngeal Contraction (AP view only): Not assessed, No AP view Pharyngoesophageal Segment Opening : 1-Partial distension/partial duration, partial obstruction of flow Tongue Base Retraction : 2-Narrow column of contrast or air between tongue base and posterior pharyngeal wall Pharyngeal Residue : 2-Collection of residue within or on pharyngeal structures Esophageal Clearance (upright position): Not assessed, No AP view Dysphagia Outcome and Severity Scale: Dysphagia Outcomes and Severity Scale: 1 Severe dysphagia Levels 1 & 2 on the LISA indicate need for nonoral nutrition. Treatment Treatment was not provided this date. Please reference care plan for treatment goals and details, if indicated. Plan ADVANCED MANUFACTURING TECHNICIAN Frequency of Services during current admission: 2-4x/wk ADVANCED MANUFACTURING TECHNICIAN Recommendation (Add'l Services): Home with family, Home Health ADVANCED MANUFACTURING TECHNICIAN Multi-Disciplinary Problems (from Speech Therapy) Active Problems Problem: Swallowing Start Date: 05/13/24 Goal Start Date Expected End Date End Date LTG - Patient will tolerate the least restrictive diet consistency to allow for safe consumption of daily meals 05/13/24 05/20/24 -- Goal Start Date Expected End Date End Date STG - Patient will follow recommended swallowing strategies 05/13/24 05/20/24 -- Goal Start Date Expected End Date End Date STG - Patient will demonstrate safe oral intake to advance to PO 05/13/24 05/20/24 -- Next Visit Plan: treatment/therapy Additional Referrals: Dietitian Discharge Summary Statement If this is the last swallow therapy visit, this serves as the discharge summary. us Doris Turcios NP ADVANCED MANUFACTURING TECHNICIAN ORDERABLES Final Res ult * eGFR (05/12/2024 9:04 PM SCREW EYE ASSEMBLER) eGFR 84 >=60 mL/min/1. 73 m2 Comment: Interpretive Data [...] interpretive data was last reviewed 2021. Blood 05/12/2024 9:04 PM SCREW EYE ASSEMBLER 05/12/2024 9:51 PM SCREW EYE ASSEMBLER us Doris Turcios NP LAB BLOOD ORDERABLES Hamida l Result [facility] Department [place] [address] * (ABNORMAL) Differential, auto (05/12/2024 9:04 PM SCREW EYE ASSEMBLER) Neutrophil abs 2.3 1.5 - 6.5 K/cumm Imm gran abs 0.0 0.0 - 0.1 K/cumm [facility] Lymphocyte abs 0.7(L) 0.8 - 3.3 K/cumm [facility] Monocyte abs 0.8 0.2 - 0.8 K/cumm [facility] Eosinophil abs 0.2 0.0 - 0.5 K/cumm [facility] Basophil abs 0.1 0.0 - 0.1 K/cumm [facility] Neutrophil pct 56.1 % [facility] Comment: Interpretive Data Percent cell count reference ranges are not reported, since discordance with absolute values may lead to misinterpretation of CBC data. Current Interpretive Data was last revised on 2017. Imm gran pct 0.5 % [facility] Comment: Interpretive Data Percent cell count reference ranges are not reported, since discordance with absolute values may lead to misinterpretation of CBC data. Current Interpretive Data was last revised on 2017. Lymphocyte pct 17.1 % [facility] Comment: Interpretive Data Percent cell count reference ranges are not reported, since discordance with absolute values may lead to misinterpretation of CBC data. Current Interpretive Data was last revised on 2017. Monocyte pct 20.1 % [facility] Comment: Interpretive Data Percent cell count reference ranges are not reported, since discordance with absolute values may lead to misinterpretation of CBC data. Current Interpretive Data was last revised on 2017. Eosinophil pct 4.5 % [facility] Comment: Interpretive Data Percent cell count reference ranges are not reported, since discordance with absolute values may lead to misinterpretation of CBC data. Current Interpretive Data was last revised on 2017. Basophil pct 1.7 % [facility] Comment: Interpretive Data Percent cell count reference ranges are not reported, since discordance with absolute values may lead to misinterpretation of CBC data. Current Interpretive Data was last revised on 2017. Blood 05/12/2024 9:04 PM SCREW EYE ASSEMBLER 05/12/2024 9:54 PM SCREW EYE ASSEMBLER Doris Turcios NP LAB BLOOD ORDERABLES Hamida pillai Result [facility] Department [place] [address] * (ABNORMAL) CBC with auto differential (05/12/2024 9:04 PM SCREW EYE ASSEMBLER) WBC 4.0 3.8 - 9.9 K/cumm Hgb 7.8(L) 13.0 - 17.5 g/dL [facility] Hct 23.3(L) 38.9 - 50.3 % [facility] Plt 142(L) 150 - 400 K/cumm [facility] MPV 10.6 9.1 - 12.3 fL [facility] RBC 2.72(L) 4.30 - 5.80 M/cumm [facility] MCV 85.7 81.3 - 96.4 fL [facility] MCH 28.7 27.1 - 33.3 pg [facility] MCHC 33.5 32.3 - 35.7 g/dL [facility] RDW CV 16.3(H) 11.1 - 14.9 % [facility] RDW SD 49.5(H) 35.7 - 48.1 fL [facility] NRBC abs 0.00 0.00 - 0.01 K/cumm [facility] Blood 05/12/2024 9:04 PM SCREW EYE ASSEMBLER 05/12/2024 9:54 PM SCREW EYE ASSEMBLER Doris Turcios COW BUYER LAB BLOOD ORDERABLES Hamida l Result Performing Organization Address City/[facility]/ZIP Co de Phone Number [facility] Department [place] [address] * (ABNORMAL) Basic metabolic panel (05/12/2024 9:04 PM SCREW EYE ASSEMBLER) Pathologist [facility] Sodium 129(L) 135 - 145 mmol/L Potassium, pl 4.6 3.3 - 4.9 mmol/L [facility] Chloride 98 97 - 110 mmol/L [facility] CO2 22 22 - 32 mmol/L [facility] Anion gap 9 2 - 15 mmol/L [facility] BUN 20 6 - 25 mg/dL [facility] Creatinine 0.89 0.80 - 1.30 mg/dL [facility] Glucose 98 70 - 199 mg/dL [facility] Comment: Interpretive Data Fasting glucose >/= [...] 2022. Calcium 8.3(L) 8.5 - 10.3 mg/dL [facility] Blood 05/12/2024 9:04 PM SCREW EYE ASSEMBLER 05/12/2024 9:51 PM SCREW EYE ASSEMBLER Doris Turcios NP LAB BLOOD ORDERABLES Hamida l Result Performing Organization Address [facility] Co de Phone Number [facility] Department [place] [address] * eGFR (05/12/2024 7:40 AM SCREW EYE ASSEMBLER) Pathologist [facility] eGFR 81 >=60 mL/min/1. 73 m2 Comment: [...] interpretive data was last reviewed 2021. Blood 05/12/2024 7:40 AM SCREW EYE ASSEMBLER 05/12/2024 7:45 AM SCREW EYE ASSEMBLER us Doris Turcios NP LAB BLOOD ORDERABLES Hamida l Result [facility] Department [place] [address] * (ABNORMAL) Differential, auto (05/12/2024 7:40 AM SCREW EYE ASSEMBLER) [facility] Neutrophil abs 2.3 1.5 - 6.5 K/cumm Imm gran abs 0.0 0.0 - 0.1 K/cumm [facility] Lymphocyte abs 0.6(L) 0.8 - 3.3 K/cumm [facility] Monocyte abs 0.5 0.2 - 0.8 K/cumm [facility] Eosinophil abs 0.2 0.0 - 0.5 K/cumm [facility] Basophil abs 0.0 0.0 - 0.1 K/cumm [facility] Neutrophil pct 65.0 % [facility] Comment: Interpretive Data Percent cell count reference ranges are not reported, since discordance with absolute values may lead to misinterpretation of CBC data. Current Interpretive Data was last revised on 2017. Imm gran pct 0.0 % [facility] Comment: Interpretive Data Percent cell count reference ranges are not reported, since discordance with absolute values may lead to misinterpretation of CBC data. Current Interpretive Data was last revised on 2017. Lymphocyte pct 15.4 % [facility] Comment: Interpretive Data Percent cell count reference ranges are not reported, since discordance with absolute values may lead to misinterpretation of CBC data. Current Interpretive Data was last revised on 2017. Monocyte pct 14.3 % [facility] Comment: Interpretive Data Percent cell count reference ranges are not reported, since discordance with absolute values may lead to misinterpretation of CBC data. Current Interpretive Data was last revised on 2017. Eosinophil pct 4.2 % [facility] Comment: Interpretive Data Percent cell count reference ranges are not reported, since discordance with absolute values may lead to misinterpretation of CBC data. Current Interpretive Data was last revised on 2017. Basophil pct 1.1 % [facility] Comment: Interpretive Data Percent cell count reference ranges are not reported, since discordance with absolute values may lead to misinterpretation of CBC data. Current Interpretive Data was last revised on 2017. Blood 05/12/2024 7:40 AM SCREW EYE ASSEMBLER 05/12/2024 7:45 AM SCREW EYE ASSEMBLER Hernandez Kwok MD LAB BLOOD ORDERABLES F inal Result [facility] Department [place] [address] * (ABNORMAL) CBC with auto differential (05/12/2024 7:40 AM SCREW EYE ASSEMBLER) WBC 3.6(L) 3.8 - 9.9 K/cumm Hgb 7.9(L) 13.0 - 17.5 g/dL [facility] Hct 22.8(L) 38.9 - 50.3 % [facility] Plt 125(L) 150 - 400 K/cumm [facility] MPV 9.8 9.1 - 12.3 fL [facility] RBC 2.67(L) 4.30 - 5.80 M/cumm [facility] MCV 85.4 81.3 - 96.4 fL [facility] MCH 29.6 27.1 - 33.3 pg [facility] MCHC 34.6 32.3 - 35.7 g/dL [facility] RDW CV 16.0(H) 11.1 - 14.9 % [facility] RDW SD 48.6(H) 35.7 - 48.1 fL [facility] NRBC abs 0.00 0.00 - 0.01 K/cumm [facility] Blood 05/12/2024 7:40 AM SCREW EYE ASSEMBLER 05/12/2024 7:45 AM SCREW EYE ASSEMBLER Hernandez Kwok MD LAB BLOOD ORDERABLES F inal Result [facility] Department [place] [address] * (ABNORMAL) Basic metabolic panel (05/12/2024 7:40 AM SCREW EYE ASSEMBLER) Sodium 129(L) 135 - 145 mmol/L Potassium, pl 4.1 3.3 - 4.9 mmol/L [facility] Chloride 99 97 - 110 mmol/L [facility] CO2 24 22 - 32 mmol/L [facility] Anion gap 6 2 - 15 mmol/L [facility] BUN 19 6 - 25 mg/dL [facility] Creatinine 0.93 0.80 - 1.30 mg/dL [facility] Glucose 135 70 - 199 mg/dL [facility] Comment: Interpretive Data Fasting glucose >/= [...] 2022. Calcium 8.0(L) 8.5 - 10.3 mg/dL [facility] Blood 05/12/2024 7:40 AM SCREW EYE ASSEMBLER 05/12/2024 7:45 AM SCREW EYE ASSEMBLER Doris Turcios NP LAB BLOOD ORDERABLES Hamida l Result [facility] Department [place] [address] * (ABNORMAL) Differential, auto (05/12/2024 1:41 AM SCREW EYE ASSEMBLER) Neutrophil abs 2.5 1.5 - 6.5 K/cumm Imm gran abs 0.0 0.0 - 0.1 K/cumm [facility] Lymphocyte abs 0.7(L) 0.8 - 3.3 K/cumm [facility] Monocyte abs 0.8 0.2 - 0.8 K/cumm [facility] Eosinophil abs 0.2 0.0 - 0.5 K/cumm [facility] Basophil abs 0.1 0.0 - 0.1 K/cumm [facility] Neutrophil pct 59.9 % [facility] Comment: Interpretive Data Percent cell count reference ranges are not reported, since discordance with absolute values may lead to misinterpretation of CBC data. Current Interpretive Data was last revised on 2017. Imm gran pct 0.5 % [facility] Comment: Interpretive Data Percent cell count reference ranges are not reported, since discordance with absolute values may lead to misinterpretation of CBC data. Current Interpretive Data was last revised on 2017. Lymphocyte pct 16.0 % [facility] Comment: Interpretive Data Percent cell count reference ranges are not reported, since discordance with absolute values may lead to misinterpretation of CBC data. Current Interpretive Data was last revised on 2017. Monocyte pct 18.8 % [facility] Comment: Interpretive Data Percent cell count reference ranges are not reported, since discordance with absolute values may lead to misinterpretation of CBC data. Current Interpretive Data was last revised on 2017. Eosinophil pct 3.6 % [facility] Comment: Interpretive Data Percent cell count reference ranges are not reported, since discordance with absolute values may lead to misinterpretation of CBC data. Current Interpretive Data was last revised on 2017. Basophil pct 1.2 % [facility] Comment: Interpretive Data Percent cell count reference ranges are not reported, since discordance with absolute values may lead to misinterpretation of CBC data. Current Interpretive Data was last revised on 2017. Blood 05/12/2024 1:4 1 AM SCREW EYE ASSEMBLER 05/12/2024 2:24 AM SCREW EYE ASSEMBLER Hernandez Kwok MD LAB BLOOD ORDERABLES F inal Result [facility] One [facility] Department [place] [address] * (ABNORMAL) CBC with auto differential (05/12/2024 1:41 AM SCREW EYE ASSEMBLER) WBC 4.2 3.8 - 9.9 K/cumm Hgb 7.7(L) 13.0 - 17.5 g/dL [facility] Hct 22.5(L) 38.9 - 50.3 % [facility] Plt 132(L) 150 - 400 K/cumm [facility] MPV 10.3 9.1 - 12.3 fL [facility] RBC 2.64(L) 4.30 - 5.80 M/cumm [facility] MCV 85.2 81.3 - 96.4 fL [facility] MCH 29.2 27.1 - 33.3 pg [facility] MCHC 34.2 32.3 - 35.7 g/dL [facility] [facility] RDW CV 15.9(H) 11.1 - 14.9 % [facility] RDW SD 49.1(H) 35.7 - 48.1 fL [facility] NRBC abs 0.00 0.00 - 0.01 K/cumm [facility] Blood 05/12/2024 1:41 AM SCREW EYE ASSEMBLER 05/12/2024 2:24 AM SCREW EYE ASSEMBLER Hernandez Kwok MD LAB BLOOD ORDERABLES F inal Result [facility] One [facility] Department [place] [address] * (ABNORMAL) Drugs of Abuse Screen, Urine with Reflex Confirmation (05/11/2024 3:05 PM SCREW EYE ASSEMBLER) Pathologist [facility] Amphetamine, ur Screen Positive, presumptive (A) CutOff 500ng/mL Comment: Interpretive Data - Amphetamines: Samples containing greater than 500 ng/mL d-methamphetamine or other cross-reacting amphetamine compounds are reported as positive. Amphetamine immunoassays are subject to significant false positive rates due to cross-reactivity of non-amphetamine drugs. Confirmatory testing required for definitive results. Current Interpretive Data was last reviewed 2022. Barbiturates, ur Not Detected CutOff 200ng/mL [facility] Comment: Interpretive Data - Barbiturates: Samples containing greater than 200 ng/mL secobarbital or other cross-reacting barbiturate compounds are reported as positive. False positive and false negative results are possible. Confirmatory testing required for definitive results. Current Interpretive Data was last reviewed 2022. Benzodiazepines, ur Not Detected CutOff 100ng/mL [facility] Comment: Interpretive Data - Benzodiazepines: Samples containing greater than 100 ng/mL nordiazepam or other cross-reacting compounds are reported as positive. False positive and false negative results are possible. Confirmatory testing required for definitive results. Current Interpretive Data was last reviewed 2022. Cannabinoids, ur Not Detected CutOff 50 ng/mL [facility] Comment: Interpretive Data - Cannabinoids: Samples containing greater than 50 ng/mL delta-9 THC -COOH or other cross- reacting compounds are reported as positive. False positive and false negative results are possible. Confirmatory testing required for definitive results. Current Interpretive Data was last reviewed 2022. Cocaine, ur Not Detected CutOff 150ng/mL [facility] Comment: Interpretive Data - Cocaine: Samples containing greater than 150 ng/mL benzoylecgonine or other cross- reacting compounds are reported as positive. False positive and false negative results are possible. Confirmatory testing required for definitive results. Current Interpretive Data was last reviewed 2022. Fentanyl, Ur Not Detected CutOff 5 ng/mL [facility] Comment: Interpretive Data - Fentanyl: Samples containing greater than 5 ng/mL norfentanyl, fentanyl, or other cross-reacting fentanyl compounds are reported as positive. False positive and false negative results are possible. Confirmatory testing required for definitive results. Current Interpretive Data was last reviewed 2023. Methadone, ur Not Detected CutOff 300ng/mL [facility] Comment: Interpretive Data - Methadone: Samples containing greater than 300 ng/mL d,l-methadone or other cross-reacting compounds are reported as positive. False positive and false negative results are possible. Confirmatory testing required for definitive results. Current Interpretive Data was last reviewed 2022. Opiates, ur Not Detected CutOff 300ng/mL [facility] Comment: Interpretive Data - Opiates: Samples containing greater than 300 ng/mL morphine or other cross-reacting compounds are reported as positive. False positive and false negative results are possible. Confirmatory testing required for definitive results. Current Interpretive Data was last reviewed 2022. Oxycodone, ur Not Detected CutOff 100ng/mL [facility] Comment: Interpretive Data - Oxycodone: Samples containing greater than 100 ng/mL oxycodone or other cross-reacting compounds are reported as positive. False positive and false negative results are possible. Confirmatory testing required for definitive results. Current Interpretive Data was last reviewed 2022. Phencyclidine, ur Not Detected CutOff 25 ng/mL [facility] Comment: Interpretive Data - Phencyclidine: Samples containing greater than 25 ng/mL phencyclidine or other cross-reacting compounds are reported as positive. False positive and false negative results are possible. Confirmatory testing required for definitive results. Current Interpretive Data was last reviewed 2022. Urine Creatinine 170 mg/dL [facility] Comment: Interpretive Data Urine Creatinine: < 10 mg/dL is extremely dilute = or > 10 but < 20 mg/dL is dilute = or > 20 mg/dL is normal Current Interpretive Data was last revised on 2017. Urine 05/11/2024 3:05 PM SCREW EYE ASSEMBLER 05/11/2024 3:27 PM SCREW EYE ASSEMBLER Narrative [facility] - 05/11/2024 3:59 PM SCREW EYE ASSEMBLER Drug of Abuse screening is performed by immunoassay for medical purposes only. This is not to be used for Pain Management purposes. If Detected, confirmation testing will be performed for Amphetamines, Cocaine, Fentanyl, Methadone, Opiates, Oxycodone or Phencyclidine. Hernandez Kwok MD LAB URINE ORDERABLES F inal Result Performing Organization Address [facility] Co de Phone Number [facility] Department [place] [address] * eGFR (05/11/2024 3:05 PM SCREW EYE ASSEMBLER) eGFR 73 >=60 mL/min/1. 73 m2 Comment: [...] interpretive data was last reviewed 2021. Blood 05/11/2024 3:05 PM SCREW EYE ASSEMBLER 05/11/2024 3:27 PM SCREW EYE ASSEMBLER Doris Turcios NP LAB BLOOD ORDERABLES Hamida l Result Performing Organization Address [facility] Co de Phone Number [facility] Department [place] [address] * Amphetamine Confirmation, Urine (05/11/2024 3:05 PM SCREW EYE ASSEMBLER) Pathologist [facility] Amphetamine Conf, Ur Does Not Confirm CutOff 150ng/mL Methamphetamine Conf, Ur Does Not Confirm CutOff 150ng/mL [facility] MDA Conf, Ur Does Not Confirm CutOff 150ng/mL [facility] MDMA Conf, Ur Does Not Confirm CutOff 50 ng/mL [facility] MDEA Conf, Ur Does Not Confirm CutOff 150ng/mL [facility] MBDB Conf, Ur Does Not Confirm CutOff 150ng/mL [facility] Comment: Interpretive Data This test detects the presence or absence of drug compounds using LC Tandem mass spectrometry. While this test is highly specific, false positive and false negative results may occur in very rare circumstances. Contact the laboratory for consultation, if needed. Performance characteristics were determined by the [facility] in a manner consistent with CLIA requirement and has not been cleared or approved by the U.S. Food and Drug Administration. Current interpretive data was last revised on 2020. Urine 05/11/2024 3:05 PM SCREW EYE ASSEMBLER 05/11/2024 3:27 PM SCREW EYE ASSEMBLER us Alejandro Soliz III, MD LAB URINE ORDER AMARA Final Result [facility] One [facility] Department [place] [address] * (ABNORMAL) Basic metabolic panel (05/11/2024 3:05 PM SCREW EYE ASSEMBLER) [facility] Sodium 127(L) 135 - 145 mmol/L Potassium, pl 4.6 3.3 - 4.9 mmol/L [facility] Chloride 95(L) 97 - 110 mmol/L [facility] CO2 22 22 - 32 mmol/L [facility] Anion gap 10 2 - 15 mmol/L [facility] BUN 22 6 - 25 mg/dL [facility] Creatinine 1.01 0.80 - 1.30 mg/dL [facility] Glucose 120 70 - 199 mg/dL [facility] Comment: Interpretive Data Fasting glucose >/= [...] 2022. Calcium 8.7 8.5 - 10.3 mg/dL [facility] Blood 05/11/2024 3:05 PM SCREW EYE ASSEMBLER 05/11/2024 3:27 PM SCREW EYE ASSEMBLER us Doris Turcios NP LAB BLOOD ORDERABLES Hamida pillai Result [facility] One [facility] Department of Laboratories [place], [place] [id number] * US Vein Duplex Lower Extremity Bilateral Complete (05/11/2024 12:49 PM SCREW EYE ASSEMBLER) Anatomical Region Laterality Modality Vascular Bilateral Ultrasound 05/11/2024 12:2 9 PM SCREW EYE ASSEMBLER Narrative 05/11/2024 1:30 PM SCREW EYE ASSEMBLER [facility] - Department of Vascular Surgery, Vascular Laboratory [address] [place] [id number] Lower Extremity Venous Ultrasound Report Patient Name: GIAN LEE : 1940 (83y 9m) Study Date: 05/11/2024 12:29:47 PM Gender: M Tech: AL Location: [id number] Ref Provider: DORIS TURCIOS Quality: Adequate Order Provider: DORIS TURCIOS PROCEDURES: Vascular Report: Venous Duplex imaging was performed bilaterally in the lower extremities. The common femoral, femoral, popliteal, posterior tibial, peroneal veins were evaluated for patency, spontaneity and phasicity with Doppler, compression and augmentation maneuvers. Great saphenous vein proximal at the junction was evaluated with compression maneuvers. INDICATIONS: Swelling, Lower Extremity, Bilateral - FINDINGS: Performing Filling And Stapling Machine Operator: Zoe Preston RVT. Right: Venous Doppler signals in the right lower extremity are within normal limits for spontaneity and phasicity and respond normally to augmentation maneuvers. No evidence of deep vein thrombus by duplex, proximal to the calf. Left: Duplex scan reveals hyperechoic, intraluminal, non-compressible material with wall thickening. The finding is consistent with chronic deep vein thrombosis in the left lower extremity. Deep veins involved include the popliteal vein. All other evaluated veins are patent. CONCLUSIONS: 1. There is no evidence of acute deep vein thrombosis on the right. Noninvasive venous studies cannot rule out isolated calf vein obstruction. 2. There is chronic deep vein thrombosis (post-thrombotic changes) in the left lower extremity. HISTORY: personal history of DVT, PE, fall, PAD. PREVIOUS STUDIES: No previous studies for comparison. DISCLAIMER: The study images and the final report will be retained in the patient chart by the Vascular Laboratory for the legally required time period. This chart constitutes the legal record of any testing performed. ATTESTATION: I have reviewed and interpreted the pertinent images and measurements of this study. I attest to the conclusions in the final report that is provided above. Electronically Signed By: Baldomero Mccall MD FACS 05/11/2024 12:48:34 PM SCREW EYE ASSEMBLER Procedure Note Baldomero Mccall MD - 05/11/2024 [facility] - Department of Vascular Surgery,Vascular Laboratory [address] [place] [address] Lower Extremity Venous Ultrasound Report Patient Name: GIAN LEE : 1940 (83y 9m) Study Date: 05/11/2024 12:29:47 PM Gender: M Tech: AL Location: [id number] Ref Provider: DORIS TURCIOS Quality: Adequate Order Provider: DORIS TURCIOS PROCEDURES: Vascular Report: Venous Duplex imaging was performed bilaterally in the lower extremities.The common femoral, femoral, popliteal, posterior tibial, peroneal veins wereevaluated for patency, spontaneity and phasicity with Doppler, compression and augmentationmaneuvers. Great saphenous vein proximal at the junction was evaluated with compressionmaneuvers. INDICATIONS: Swelling, Lower Extremity, Bilateral - FINDINGS: Performing Filling And Stapling Machine Operator: Zoe Preston RVT. Right: Venous Doppler signals in the right lower extremity are within normallimits for spontaneity and phasicity and respond normally to augmentation maneuvers.No evidence of deep vein thrombus by duplex, proximal to the calf. Left: Duplex scan reveals hyperechoic, intraluminal, non-compressible materialwith wall thickening. The finding is consistent with chronic deep vein thrombosis inthe left lower extremity. Deep veins involved include the popliteal vein. All otherevaluated veins are patent. CONCLUSIONS: 1. There is no evidence of acute deep vein thrombosis on the right.Noninvasive venous studies cannot rule out isolated calf vein obstruction. 2. There is chronic deep vein thrombosis (post-thrombotic changes) in theleft lower extremity. HISTORY: personal history of DVT, PE, fall, PAD. PREVIOUS STUDIES: No previous studies for comparison. DISCLAIMER: The study images and the final report will be retained in the patientchart by the Vascular Laboratory for the legally required time period. This chartconstitutes the legal record of any testing performed. ATTESTATION: I have reviewed and interpreted the pertinent images and measurements ofthis study. I attest to the conclusions in the final report that is provided above. Electronically Signed By: Baldomero Mccall MD FACS 05/11/2024 12:48:34 PM SCREW EYE ASSEMBLER us Doris Turcios NP IM US PROCEDURES Final R esult * (ABNORMAL) Differential, auto (05/11/2024 10:30 AM SCREW EYE ASSEMBLER) Neutrophil abs 3.5 1.5 - 6.5 K/cumm Imm gran abs 0.0 0.0 - 0.1 K/cumm [facility] Lymphocyte abs 0.6(L) 0.8 - 3.3 K/cumm [facility] Monocyte abs 0.8 0.2 - 0.8 K/cumm [facility] Eosinophil abs 0.1 0.0 - 0.5 K/cumm [facility] Basophil abs 0.1 0.0 - 0.1 K/cumm [facility] Neutrophil pct 70.4 % [facility] Comment: Interpretive Data Percent cell count reference ranges are not reported, since discordance with absolute values may lead to misinterpretation of CBC data. Current Interpretive Data was last revised on 2017. Imm gran pct 0.4 % [facility] Comment: Interpretive Data Percent cell count reference ranges are not reported, since discordance with absolute values may lead to misinterpretation of CBC data. Current Interpretive Data was last revised on 2017. Lymphocyte pct 11.5 % [facility] Comment: Interpretive Data Percent cell count reference ranges are not reported, since discordance with absolute values may lead to misinterpretation of CBC data. Current Interpretive Data was last revised on 2017. Monocyte pct 15.1 % [facility] Comment: Interpretive Data Percent cell count reference ranges are not reported, since discordance with absolute values may lead to misinterpretation of CBC data. Current Interpretive Data was last revised on 2017. Eosinophil pct 1.4 % [facility] Comment: Interpretive Data Percent cell count reference ranges are not reported, since discordance with absolute values may lead to misinterpretation of CBC data. Current Interpretive Data was last revised on 2017. Basophil pct 1.2 % [facility] Comment: Interpretive Data Percent cell count reference ranges are not reported, since discordance with absolute values may lead to misinterpretation of CBC data. Current Interpretive Data was last revised on 2017. Blood 05/11/2024 10:3 0 AM SCREW EYE ASSEMBLER 05/11/2024 10:47 AM SCREW EYE ASSEMBLER Hernandez Kwok MD LAB BLOOD ORDERABLES F inal Result [facility] One [facility] Department [place] [address] * (ABNORMAL) CBC with auto differential (05/11/2024 10:30 AM SCREW EYE ASSEMBLER) WBC 5.0 3.8 - 9.9 K/cumm Hgb 7.8(L) 13.0 - 17.5 g/dL [facility] Hct 22.8(L) 38.9 - 50.3 % [facility] Plt 149(L) 150 - 400 K/cumm [facility] MPV 10.5 9.1 - 12.3 fL [facility] RBC 2.67(L) 4.30 - 5.80 M/cumm [facility] MCV 85.4 81.3 - 96.4 fL [facility] MCH 29.2 27.1 - 33.3 pg [facility] MCHC 34.2 32.3 - 35.7 g/dL [facility] RDW CV 15.6(H) 11.1 - 14.9 % [facility] RDW SD 47.7 35.7 - 48.1 fL [facility] NRBC abs 0.00 0.00 - 0.01 K/cumm [facility] Blood 05/11/2024 10:3 0 AM SCREW EYE ASSEMBLER 05/11/2024 10:47 AM SCREW EYE ASSEMBLER Hernandez Kwok MD LAB BLOOD ORDERABLES F inal Result Performing Organization Address City/[facility]/ZIP Co de Phone Number [facility] Department [place] [address] * eGFR (05/11/2024 4:55 AM SCREW EYE ASSEMBLER) eGFR 74 >=60 mL/min/1. 73 m2 Comment: [...] interpretive data was last reviewed 2021. Blood 05/11/2024 4:55 AM SCREW EYE ASSEMBLER 05/11/2024 5:44 AM SCREW EYE ASSEMBLER us Zoran Leyva DO LAB BLOOD ORDERABLES F inal Result Performing Organization Address City/[facility]/ZIP Co de Phone Number [facility] Department [place] [address] * (ABNORMAL) Differential, auto (05/11/2024 4:55 AM SCREW EYE ASSEMBLER) Neutrophil abs 4.1 1.5 - 6.5 K/cumm Imm gran abs 0.0 0.0 - 0.1 K/cumm [facility] Lymphocyte abs 0.7(L) 0.8 - 3.3 K/cumm [facility] Monocyte abs 0.7 0.2 - 0.8 K/cumm [facility] Eosinophil abs 0.1 0.0 - 0.5 K/cumm [facility] Basophil abs 0.1 0.0 - 0.1 K/cumm [facility] Neutrophil pct 73.1 % [facility] Comment: Interpretive Data Percent cell count reference ranges are not reported, since discordance with absolute values may lead to misinterpretation of CBC data. Current Interpretive Data was last revised on 2017. Imm gran pct 0.4 % [facility] Comment: Interpretive Data Percent cell count reference ranges are not reported, since discordance with absolute values may lead to misinterpretation of CBC data. Current Interpretive Data was last revised on 2017. Lymphocyte pct 12.1 % [facility] Comment: Interpretive Data Percent cell count reference ranges are not reported, since discordance with absolute values may lead to misinterpretation of CBC data. Current Interpretive Data was last revised on 2017. Monocyte pct 12.1 % [facility] Comment: Interpretive Data Percent cell count reference ranges are not reported, since discordance with absolute values may lead to misinterpretation of CBC data. Current Interpretive Data was last revised on 2017. Eosinophil pct 0.9 % [facility] Comment: Interpretive Data Percent cell count reference ranges are not reported, since discordance with absolute values may lead to misinterpretation of CBC data. Current Interpretive Data was last revised on 2017. Basophil pct 1.4 % [facility] Comment: Interpretive Data Percent cell count reference ranges are not reported, since discordance with absolute values may lead to misinterpretation of CBC data. Current Interpretive Data was last revised on 2017. Blood 05/11/2024 4:55 AM SCREW EYE ASSEMBLER 05/11/2024 5:45 AM SCREW EYE ASSEMBLER Hernandez Kwok MD LAB BLOOD ORDERABLES F inal Result Performing Organization Address [facility] de Phone Number [facility] Department [place] [address] * (ABNORMAL) CBC with auto differential (05/11/2024 4:55 AM SCREW EYE ASSEMBLER) [facility] WBC 5.6 3.8 - 9.9 K/cumm Hgb 8.2(L) 13.0 - 17.5 g/dL [facility] Hct 23.8(L) 38.9 - 50.3 % [facility] Plt 172 150 - 400 K/cumm [facility] MPV 10.3 9.1 - 12.3 fL [facility] RBC 2.84(L) 4.30 - 5.80 M/cumm [facility] MCV 83.8 81.3 - 96.4 fL [facility] MCH 28.9 27.1 - 33.3 pg [facility] MCHC 34.5 32.3 - 35.7 g/dL [facility] RDW CV 15.7(H) 11.1 - 14.9 % [facility] RDW SD 46.8 35.7 - 48.1 fL [facility] NRBC abs 0.00 0.00 - 0.01 K/cumm [facility] Blood 05/11/2024 4:55 AM SCREW EYE ASSEMBLER 05/11/2024 5:45 AM SCREW EYE ASSEMBLER Hernandez Kwok MD LAB BLOOD ORDERABLES F inal Result Performing Organization Address [facility] Co de Phone Number [facility] Department [place] [address] * (ABNORMAL) Comprehensive metabolic panel (05/11/2024 4:55 AM SCREW EYE ASSEMBLER) [facility] Sodium 123(L) 135 - 145 mmol/L Potassium, pl 4.8 3.3 - 4.9 mmol/L [facility] Chloride 93(L) 97 - 110 mmol/L [facility] CO2 21(L) 22 - 32 mmol/L [facility] Anion gap 9 2 - 15 mmol/L [facility] BUN 21 6 - 25 mg/dL [facility] Creatinine 1.00 0.80 - 1.30 mg/dL [facility] Glucose 100 70 - 199 mg/dL [facility] Comment: Interpretive Data Fasting glucose >/= [...] 2022. Calcium 8.4(L) 8.5 - 10.3 mg/dL [facility] Bilirubin, total 0.8 0.1 - 1.2 mg/dL [facility] Protein, pl 5.8(L) 6.5 - 8.5 g/dL [facility] Albumin 3.3(L) 3.5 - 5.0 g/dL [facility] Alk phos 90 40 - 130 Units/L [facility] ALT 22 7 - 55 Units/L [facility] AST 34 10 - 50 Units/L [facility] Blood 05/11/2024 4:55 AM SCREW EYE ASSEMBLER 05/11/2024 5:44 AM SCREW EYE ASSEMBLER Zoran Leyva DO LAB BLOOD ORDERABLES F inal Result [facility] One [facility] Department [place] [address] * (ABNORMAL) Differential, auto (05/11/2024 1:32 AM SCREW EYE ASSEMBLER) Neutrophil abs 4.3 1.5 - 6.5 K/cumm Imm gran abs 0.0 0.0 - 0.1 K/cumm [facility] Lymphocyte abs 0.7(L) 0.8 - 3.3 K/cumm [facility] Monocyte abs 0.7 0.2 - 0.8 K/cumm [facility] Eosinophil abs 0.1 0.0 - 0.5 K/cumm [facility] Basophil abs 0.1 0.0 - 0.1 K/cumm [facility] Neutrophil pct 73.5 % [facility] Comment: Interpretive Data Percent cell count reference ranges are not reported, since discordance with absolute values may lead to misinterpretation of CBC data. Current Interpretive Data was last revised on 2017. Imm gran pct 0.3 % [facility] Comment: Interpretive Data Percent cell count reference ranges are not reported, since discordance with absolute values may lead to misinterpretation of CBC data. Current Interpretive Data was last revised on 2017. Lymphocyte pct 11.7 % [facility] Comment: Interpretive Data Percent cell count reference ranges are not reported, since discordance with absolute values may lead to misinterpretation of CBC data. Current Interpretive Data was last revised on 2017. Monocyte pct 12.5 % [facility] Comment: Interpretive Data Percent cell count reference ranges are not reported, since discordance with absolute values may lead to misinterpretation of CBC data. Current Interpretive Data was last revised on 2017. Eosinophil pct 1.0 % [facility] Comment: Interpretive Data Percent cell count reference ranges are not reported, since discordance with absolute values may lead to misinterpretation of CBC data. Current Interpretive Data was last revised on 2017. Basophil pct 1.0 % [facility] Comment: Interpretive Data Percent cell count reference ranges are not reported, since discordance with absolute values may lead to misinterpretation of CBC data. Current Interpretive Data was last revised on 2017. Blood 05/11/2024 1:32 AM SCREW EYE ASSEMBLER 05/11/2024 5:45 AM SCREW EYE ASSEMBLER us Zoran Leyva DO LAB BLOOD ORDERABLES F inal Result [facility] One [facility] Department [place] [address] * (ABNORMAL) CBC with auto differential (05/11/2024 1:32 AM SCREW EYE ASSEMBLER) Pathologist [facility] WBC 5.8 3.8 - 9.9 K/cumm Hgb 8.2(L) 13.0 - 17.5 g/dL [facility] Hct 23.9(L) 38.9 - 50.3 % [facility] Plt 159 150 - 400 K/cumm [facility] MPV 10.6 9.1 - 12.3 fL [facility] RBC 2.82(L) 4.30 - 5.80 M/cumm [facility] MCV 84.8 81.3 - 96.4 fL [facility] MCH 29.1 27.1 - 33.3 pg [facility] MCHC 34.3 32.3 - 35.7 g/dL [facility] RDW CV 15.9(H) 11.1 - 14.9 % [facility] RDW SD 47.5 35.7 - 48.1 fL [facility] NRBC abs 0.00 0.00 - 0.01 K/cumm [facility] Blood 05/11/2024 1:3 2 AM SCREW EYE ASSEMBLER 05/11/2024 5:45 AM SCREW EYE ASSEMBLER us Zoran Leyva DO LAB BLOOD ORDERABLES F inal Result [facility] One [facility] Department [place] [address] * (ABNORMAL) CBC without differential (05/10/2024 8:22 PM SCREW EYE ASSEMBLER) Pathologist [facility] WBC 6.5 3.8 - 9.9 K/cumm Hgb 8.7(L) 13.0 - 17.5 g/dL [facility] Hct 25.6(L) 38.9 - 50.3 % [facility] Plt 163 150 - 400 K/cumm [facility] MPV 10.0 9.1 - 12.3 fL [facility] RBC 3.01(L) 4.30 - 5.80 M/cumm [facility] MCV 85.0 81.3 - 96.4 fL [facility] MCH 28.9 27.1 - 33.3 pg [facility] MCHC 34.0 32.3 - 35.7 g/dL [facility] RDW CV 15.9(H) 11.1 - 14.9 % [facility] RDW SD 48.7(H) 35.7 - 48.1 fL [facility] NRBC abs 0.00 0.00 - 0.01 K/cumm [facility] Blood 05/10/2024 8:22 PM SCREW EYE ASSEMBLER 05/10/2024 8:40 PM SCREW EYE ASSEMBLER us Sugar Sequeira MD LAB BLOOD ORDERABLES Final Result [facility] One [facility] Department [place] [address] * CT Body Outside Consult (05/10/2024 7:00 PM SCREW EYE ASSEMBLER) Anatomical Region Laterality Modality Body N/A Computed Tomogra phy 05/10/2024 7:32 PM SCREW EYE ASSEMBLER Impressions 05/10/2024 7:34 PM SCREW EYE ASSEMBLER This study was initially nominated as a consult on outside images via Outside Image Sharing Service. However, a consult was not performed because a subsequent CT of the chest and abdominal aorta with bilateral iliofemoral runoff was performed more recently on 05/10/2024. Accordingly, there will be no separate report of this study generated by a [facility] Radiologist. Dictated by: Bo Kumar MD The radiology attending physician has personally reviewed this study, and had reviewed and/or edited this written report and agrees with it. Electronically signed by: Josselin Xavier M.D. Narrative 05/10/2024 7:34 PM SCREW EYE ASSEMBLER EXAMINATION: CHANGE CONSULT ON OUTSIDE IMAGES TO REFERENCE IMAGES Procedure Note Josselin Xavier MD - 05/10/2024 EXAMINATION: CHANGE CONSULT ON OUTSIDE IMAGES TO REFERENCE IMAGES IMPRESSION: This study was initially nominated as a consult on outside images via Outside Image Sharing Service. However, a consult was not performed because a subsequent CT of the chest and abdominal aorta with bilateral iliofemoral runoff was performed more recently on 05/10/2024. Accordingly, there will be no separate report of this study generated by a [facility] Radiologist. Dictated by: Bo Kumar MD The radiology attending physician has personally reviewed this study, and had reviewed and/or edited this written report and agrees with it. Electronically signed by: Josselin Xavier M.D. Paula Mcclellan MD IM CT PROCEDURES Final Result * Neuro CT Outside Consult (05/10/2024 6:57 PM SCREW EYE ASSEMBLER) Anatomical Region Laterality Modality N/A Computed Tomogra phy 05/10/2024 8:25 PM SCREW EYE ASSEMBLER Impressions 05/11/2024 12:12 PM SCREW EYE ASSEMBLER 1. No acute intracranial hemorrhage. Left frontal scalp hematoma extending into the periorbital soft tissues without subjacent fracture. 2. No acute cervical spine fracture. The findings, conclusions and recommendations within this report do not replace the initial findings, conclusions and recommendations made at the facility where the study was performed based upon the imaging and clinical condition at that time. Comparison with the prior report and clinical history is necessary. The provided images may or may not represent the makah source data set and thus may contain changes that may lower the accuracy of this second-opinion interpretation. Dictated by: Damien Holt MD The radiology attending physician has personally reviewed this study, and had reviewed and/or edited this written report and agrees with it. Electronically signed by: Pat Ibarra M.D. Narrative 05/11/2024 12:12 PM SCREW EYE ASSEMBLER EXAMINATION: RADIOLOGY CONSULTATION ON OUTSIDE IMAGING STUDY STUDY INITIALLY PERFORMED: 05/10/2024 at [facility] [place]. TYPE OF STUDY: Multiple CT images of the head and cervical spine without contrast are provided at the time of this interpretation. CONTRAST ROUTE: No contrast was administered. The protocol was adequate to address the clinical question. The outside final report was not available at the time of this second opinion interpretation. TYPE OF CONSULTATION: Consult on outside imaging study with images submitted through Outside Image Sharing Service DATE OF CONSULTATION: 05/10/2024 8:17 PM HISTORY: Head strike. COMPARISON: Brain MR 04/08/2024, 12/17/2021 FINDINGS: Head CT: Periventricular white matter hypoattenuation likely represent small vessel ischemic changes. There is intracranial atherosclerotic disease. There is a left frontal scalp hematoma, extending into the preseptal/periorbital soft tissues. There is no subjacent fracture. There is no definitive intracranial hemorrhage. The ventricles are prominent, given generalized cerebral volume loss. The brar-white matter differentiation is normal. Bilateral lens of placement are seen. Mild mucosal thickening in the maxillary and ethmoid air cells is noted. The mastoid air cells are normal. Sphenoid sinuses are normal. There is no midline shift or mass effect. Cervical spine: Advanced degenerative changes in the cervical spine, with mild anterolisthesis of C2 on C3, and stepwise retrolisthesis of C3-C5. Multilevel disc height loss is noted, greatest and severe at C6-C7. There is multilevel facet arthropathy, and uncovertebral arthropathy resulting in multilevel neuroforaminal stenosis, greatest and severe at C3-C4 on the right. No soft tissue abnormality identified. Chronic appearing fracture deformity of the right C7 transverse process likely represents degenerative changes. There is no acute cervical spine fracture. Carotid bifurcation atherosclerotic changes noted. Procedure Note Pat Ibarra MD - 05/11/2024 EXAMINATION: RADIOLOGY CONSULTATION ON OUTSIDE IMAGING STUDY STUDY INITIALLY PERFORMED: 05/10/2024 at [facility] [place]. TYPE OF STUDY: Multiple CT images of the head and cervical spine without contrast are provided at the time of this interpretation. CONTRAST ROUTE: No contrast was administered. The protocol was adequate to address the clinical question. The outside final report was not available at the time of this second opinion interpretation. TYPE OF CONSULTATION: Consult on outside imaging study with images submitted through Outside Image Sharing Service DATE OF CONSULTATION: 05/10/2024 8:17 PM HISTORY: Head strike. COMPARISON: Brain MR 04/08/2024, 12/17/2021 FINDINGS: Head CT: Periventricular white matter hypoattenuation likely represent small vessel ischemic changes. There is intracranial atherosclerotic disease. There is a left frontal scalp hematoma, extending into the preseptal/periorbital soft tissues. There is no subjacent fracture. There is no definitive intracranial hemorrhage. The ventricles are prominent, given generalized cerebral volume loss. The brar-white matter differentiation is normal. Bilateral lens of placement are seen. Mild mucosal thickening in the maxillary and ethmoid air cells is noted. The mastoid air cells are normal. Sphenoid sinuses are normal. There is no midline shift or mass effect. Cervical spine: Advanced degenerative changes in the cervical spine, with mild anterolisthesis of C2 on C3, and stepwise retrolisthesis of C3-C5. Multilevel disc height loss is noted, greatest and severe at C6-C7. There is multilevel facet arthropathy, and uncovertebral arthropathy resulting in multilevel neuroforaminal stenosis, greatest and severe at C3-C4 on the right. No soft tissue abnormality identified. Chronic appearing fracture deformity of the right C7 transverse process likely represents degenerative changes. There is no acute cervical spine fracture. Carotid bifurcation atherosclerotic changes noted. IMPRESSION: 1. No acute intracranial hemorrhage. Left frontal scalp hematoma extending into the periorbital soft tissues without subjacent fracture. 2. No acute cervical spine fracture. The findings, conclusions and recommendations within this report do not replace the initial findings, conclusions and recommendations made at the facility where the study was performed based upon the imaging and clinical condition at that time. Comparison with the prior report and clinical history is necessary. The provided images may or may not represent the makah source data set and thus may contain changes that may lower the accuracy of this second-opinion interpretation. Dictated by: Damien Holt MD The radiology attending physician has personally reviewed this study, and had reviewed and/or edited this written report and agrees with it. Electronically signed by: Pat Ibarra M.D. Marie Rubio MD IMG CT PROCEDURES Fi nal Result * Neuro CT Outside Consult (05/10/2024 6:53 PM SCREW EYE ASSEMBLER) Anatomical Region Laterality Modality N/A Computed Tomogra phy 05/10/2024 8:25 PM SCREW EYE ASSEMBLER Impressions 05/11/2024 12:12 PM SCREW EYE ASSEMBLER 1. No acute intracranial hemorrhage. Left frontal scalp hematoma extending into the periorbital soft tissues without subjacent fracture. 2. No acute cervical spine fracture. The findings, conclusions and recommendations within this report do not replace the initial findings, conclusions and recommendations made at the facility where the study was performed based upon the imaging and clinical condition at that time. Comparison with the prior report and clinical history is necessary. The provided images may or may not represent the makah source data set and thus may contain changes that may lower the accuracy of this second-opinion interpretation. Dictated by: Damien Holt MD The radiology attending physician has personally reviewed this study, and had reviewed and/or edited this written report and agrees with it. Electronically signed by: Pat Ibarra M.D. Narrative 05/11/2024 12:12 PM SCREW EYE ASSEMBLER EXAMINATION: RADIOLOGY CONSULTATION ON OUTSIDE IMAGING STUDY STUDY INITIALLY PERFORMED: 05/10/2024 at [facility] [place]. TYPE OF STUDY: Multiple CT images of the head and cervical spine without contrast are provided at the time of this interpretation. CONTRAST ROUTE: No contrast was administered. The protocol was adequate to address the clinical question. The outside final report was not available at the time of this second opinion interpretation. TYPE OF CONSULTATION: Consult on outside imaging study with images submitted through Outside Image Sharing Service DATE OF CONSULTATION: 05/10/2024 8:17 PM HISTORY: Head strike. COMPARISON: Brain MR 04/08/2024, 12/17/2021 FINDINGS: Head CT: Periventricular white matter hypoattenuation likely represent small vessel ischemic changes. There is intracranial atherosclerotic disease. There is a left frontal scalp hematoma, extending into the preseptal/periorbital soft tissues. There is no subjacent fracture. There is no definitive intracranial hemorrhage. The ventricles are prominent, given generalized cerebral volume loss. The brar-white matter differentiation is normal. Bilateral lens of placement are seen. Mild mucosal thickening in the maxillary and ethmoid air cells is noted. The mastoid air cells are normal. Sphenoid sinuses are normal. There is no midline shift or mass effect. Cervical spine: Advanced degenerative changes in the cervical spine, with mild anterolisthesis of C2 on C3, and stepwise retrolisthesis of C3-C5. Multilevel disc height loss is noted, greatest and severe at C6-C7. There is multilevel facet arthropathy, and uncovertebral arthropathy resulting in multilevel neuroforaminal stenosis, greatest and severe at C3-C4 on the right. No soft tissue abnormality identified. Chronic appearing fracture deformity of the right C7 transverse process likely represents degenerative changes. There is no acute cervical spine fracture. Carotid bifurcation atherosclerotic changes noted. Procedure Note Pat Ibarra MD - 02/25/2025 EXAMINATION: RADIOLOGY CONSULTATION ON OUTSIDE IMAGING STUDY STUDY INITIALLY PERFORMED: 05/10/2024 at [facility] [place]. TYPE OF STUDY: Multiple CT images of the head and cervical spine without contrast are provided at the time of this interpretation. CONTRAST ROUTE: No contrast was administered. The protocol was adequate to address the clinical question. The outside final report was not available at the time of this second opinion interpretation. TYPE OF CONSULTATION: Consult on outside imaging study with images submitted through Outside Image Sharing Service DATE OF CONSULTATION: 05/10/2024 8:17 PM HISTORY: Head strike. COMPARISON: Brain MR 04/08/2024, 12/17/2021 FINDINGS: Head CT: Periventricular white matter hypoattenuation likely represent small vessel ischemic changes. There is intracranial atherosclerotic disease. There is a left frontal scalp hematoma, extending into the preseptal/periorbital soft tissues. There is no subjacent fracture. There is no definitive intracranial hemorrhage. The ventricles are prominent, given generalized cerebral volume loss. The brar-white matter differentiation is normal. Bilateral lens of placement are seen. Mild mucosal thickening in the maxillary and ethmoid air cells is noted. The mastoid air cells are normal. Sphenoid sinuses are normal. There is no midline shift or mass effect. Cervical spine: Advanced degenerative changes in the cervical spine, with mild anterolisthesis of C2 on C3, and stepwise retrolisthesis of C3-C5. Multilevel disc height loss is noted, greatest and severe at C6-C7. There is multilevel facet arthropathy, and uncovertebral arthropathy resulting in multilevel neuroforaminal stenosis, greatest and severe at C3-C4 on the right. No soft tissue abnormality identified. Chronic appearing fracture deformity of the right C7 transverse process likely represents degenerative changes. There is no acute cervical spine fracture. Carotid bifurcation atherosclerotic changes noted. IMPRESSION: 1. No acute intracranial hemorrhage. Left frontal scalp hematoma extending into the periorbital soft tissues without subjacent fracture. 2. No acute cervical spine fracture. The findings, conclusions and recommendations within this report do not replace the initial findings, conclusions and recommendations made at the facility where the study was performed based upon the imaging and clinical condition at that time. Comparison with the prior report and clinical history is necessary. The provided images may or may not represent the makah source data set and thus may contain changes that may lower the accuracy of this second-opinion interpretation. Dictated by: Damien Holt MD The radiology attending physician has personally reviewed this study, and had reviewed and/or edited this written report and agrees with it. Electronically signed by: Pat Ibarra M.D. Marie Rubio MD IMG CT PROCEDURES Fi nal Result * CT Body Outside Consult (05/10/2024 6:48 PM SCREW EYE ASSEMBLER) Anatomical Region Laterality Modality Body N/A Computed Tomogra phy 05/10/2024 7:55 PM SCREW EYE ASSEMBLER Impressions 05/10/2024 8:12 PM SCREW EYE ASSEMBLER 1. Large left quadriceps hematoma with branches of the profunda femoris seen coursing within the hematoma. While there are areas of hyperdensity within the hematoma which may represent active bleeding, it cannot be determined if this represents arterial or venous bleeding on this single phase of contrast. If there is concern for ongoing arterial extravasation, a triple phase exam of the left thigh with noncontrast, arterial and venous phase could be performed. Alternatively, given the duration since this exam was performed, if the patient has stabilized, a portal venous phase CT of the left thigh could be performed to monitor for increase in the size of the hematoma. 2. 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 3. 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 4. Outrunning of the bolus bilaterally with no significant stenosis identified above the knee on either side. The findings, conclusions and recommendations within this report do not replace the initial findings, conclusions and recommendations made at the facility where the study was performed based upon the imaging and clinical condition at that time. Comparison with the prior report and clinical history is necessary. The provided images may or may not represent the makah source data set and thus may contain changes that may lower the accuracy of this second-opinion interpretation. The Non Critical results were discussed with Dr. Sequeira by Dr. Mccall on 05/10/2024 at 7:58 PM Dictated by: Vikash Mccall M.D. The radiology attending physician has personally reviewed this study, and had reviewed and/or edited this written report and agrees with it. Electronically signed by: Josselin Xavier M.D. Narrative 05/10/2024 8:12 PM SCREW EYE ASSEMBLER EXAMINATION: RADIOLOGY CONSULTATION ON OUTSIDE IMAGING STUDY STUDY INITIALLY PERFORMED: 05/10/2024 at [facility] [place]. TYPE OF STUDY: Multiple CT images of the abdomen, pelvis and bilateral lower extremities with intravenous contrast are provided at the time of this interpretation. CONTRAST ROUTE: Contrast was administered via the intravenous route. The protocol was not adequate to address the clinical question. The outside final report was not available at the time of this second opinion interpretation. TYPE OF CONSULTATION: Consult on outside imaging study with images submitted through Outside Image Sharing Service DATE OF CONSULTATION: 05/10/2024 7:25 PM HISTORY: 83-year-old man on chronic anticoagulation, post fall with subsequent thigh pain COMPARISON: CT abdomen pelvis dated 03/19/2024 FINDINGS: The patient is status post aortic valve replacement. The heart size is within normal limits. There is no pericardial effusion. There is a trace left pleural effusion. There is no right pleural effusion. Atelectasis is present in the lung bases. There is no focal hepatic lesion. The portal, superior mesenteric and splenic veins are patent. There is cholelithiasis without cholecystitis. The pancreas, adrenals and spleen are normal. A percutaneous gastrostomy tube is in place. The kidneys enhance symmetrically without hydronephrosis. The urinary bladder is normal. The prostate is present. There is a tortuous abdominal aorta. 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 There is a stent within the left common iliac artery which extends through the external iliac artery. The stent is new from 03/19/2024. The excluded left external iliac aneurysm is stable to slightly decreased in size when compared to 03/19/2024. 2 vascular occlusion devices are present within feeding arteries to the aneurysm. There is no accumulation of contrast within the excluded aneurysm. There is outrunning of the bolus on the right with contrast opacification seen only to the level of the superficial femoral artery above the popliteal hiatus. On the left, there is no significant stenosis of the superficial or deep femoral arteries. There is outrunning of the bolus with contrast opacification seen approximately to the level of the tibial peroneal trunk, without areas of significant stenosis in the superficial femoral, deep femoral, anterior tibial or tibial peroneal trunk arteries. There is a large hematoma within the left quadriceps. This is difficult to measure precisely due to lack of soft tissue contrast on this arterial phase exam. Branches of the right from the femoris are seen coursing within the hematoma. Areas of hyperattenuation such as abscess table position -677.1 and -679.6 could conceivably represent areas of active arterial extravasation, however this cannot be definitively determined on this single phase of contrast. Early venous filling is noted on the left, likely secondary to hyperemia in the setting of blunt injury to the left side. Bilateral midfoot and hindfoot osteoarthritis is present. An intramuscular lipoma is present within the adductor compartment of the left thigh. Multilevel spondylosis is present. Mild right greater than left hip osteoarthritis is present. There is no aggressive appearing osseous lesion. Procedure Note Josselin Xavier MD - 05/10/2024 EXAMINATION: RADIOLOGY CONSULTATION ON OUTSIDE IMAGING STUDY STUDY INITIALLY PERFORMED: 05/10/2024 at [facility] [place]. TYPE OF STUDY: Multiple CT images of the abdomen, pelvis and bilateral lower extremities with intravenous contrast are provided at the time of this interpretation. CONTRAST ROUTE: Contrast was administered via the intravenous route. The protocol was not adequate to address the clinical question. The outside final report was not available at the time of this second opinion interpretation. TYPE OF CONSULTATION: Consult on outside imaging study with images submitted through Outside Image Sharing Service DATE OF CONSULTATION: 05/10/2024 7:25 PM HISTORY: 83-year-old man on chronic anticoagulation, post fall with subsequent thigh pain COMPARISON: CT abdomen pelvis dated 03/19/2024 FINDINGS: The patient is status post aortic valve replacement. The heart size is within normal limits. There is no pericardial effusion. There is a trace left pleural effusion. There is no right pleural effusion. Atelectasis is present in the lung bases. There is no focal hepatic lesion. The portal, superior mesenteric and splenic veins are patent. There is cholelithiasis without cholecystitis. The pancreas, adrenals and spleen are normal. A percutaneous gastrostomy tube is in place. The kidneys enhance symmetrically without hydronephrosis. The urinary bladder is normal. The prostate is present. There is a tortuous abdominal aorta. 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 There is a stent within the left common iliac artery which extends through the external iliac artery. The stent is new from 03/19/2024. The excluded left external iliac aneurysm is stable to slightly decreased in size when compared to 03/19/2024. 2 vascular occlusion devices are present within feeding arteries to the aneurysm. There is no accumulation of contrast within the excluded aneurysm. There is outrunning of the bolus on the right with contrast opacification seen only to the level of the superficial femoral artery above the popliteal hiatus. On the left, there is no significant stenosis of the superficial or deep femoral arteries. There is outrunning of the bolus with contrast opacification seen approximately to the level of the tibial peroneal trunk, without areas of significant stenosis in the superficial femoral, deep femoral, anterior tibial or tibial peroneal trunk arteries. There is a large hematoma within the left quadriceps. This is difficult to measure precisely due to lack of soft tissue contrast on this arterial phase exam. Branches of the right from the femoris are seen coursing within the hematoma. Areas of hyperattenuation such as abscess table position -677.1 and -679.6 could conceivably represent areas of active arterial extravasation, however this cannot be definitively determined on this single phase of contrast. Early venous filling is noted on the left, likely secondary to hyperemia in the setting of blunt injury to the left side. Bilateral midfoot and hindfoot osteoarthritis is present. An intramuscular lipoma is present within the adductor compartment of the left thigh. Multilevel spondylosis is present. Mild right greater than left hip osteoarthritis is present. There is no aggressive appearing osseous lesion. IMPRESSION: 1. Large left quadriceps hematoma with branches of the profunda femoris seen coursing within the hematoma. While there are areas of hyperdensity within the hematoma which may represent active bleeding, it cannot be determined if this represents arterial or venous bleeding on this single phase of contrast. If there is concern for ongoing arterial extravasation, a triple phase exam of the left thigh with noncontrast, arterial and venous phase could be performed. Alternatively, given the duration since this exam was performed, if the patient has stabilized, a portal venous phase CT of the left thigh could be performed to monitor for increase in the size of the hematoma. 2. 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 3. 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 4. Outrunning of the bolus bilaterally with no significant stenosis identified above the knee on either side. The findings, conclusions and recommendations within this report do not replace the initial findings, conclusions and recommendations made at the facility where the study was performed based upon the imaging and clinical condition at that time. Comparison with the prior report and clinical history is necessary. The provided images may or may not represent the makah source data set and thus may contain changes that may lower the accuracy of this second-opinion interpretation. The Non Critical results were discussed with Dr. Sequeira by Dr. Mccall on 05/10/2024 at 7:58 PM Dictated by: Vikash Mccall M.D. The radiology attending physician has personally reviewed this study, and had reviewed and/or edited this written report and agrees with it. Electronically signed by: Josselin Xavier M.D. Paula Mcclellan MD IMG CT PROCEDURES Final Result * CT Body Outside Consult (05/10/2024 6:47 PM SCREW EYE ASSEMBLER) Anatomical Region Laterality Modality Body N/A Computed Tomogra phy 05/10/2024 8:59 PM SCREW EYE ASSEMBLER Impressions 05/11/2024 10:15 AM SCREW EYE ASSEMBLER No acute findings in the chest. Expected postoperative changes following aortic valve replacement. The findings, conclusions and recommendations within this report do not replace the initial findings, conclusions and recommendations made at the facility where the study was performed based upon the imaging and clinical condition at that time. Comparison with the prior report and clinical history is necessary. The provided images may or may not represent the makah source data set and thus may contain changes that may lower the accuracy of this second-opinion interpretation. Dictated by: Vikash Mccall M.D. The radiology attending physician has personally reviewed this study, and had reviewed and/or edited this written report and agrees with it. Electronically signed by: Brayan Emerson M.D. Narrative 05/11/2024 10:15 AM SCREW EYE ASSEMBLER EXAMINATION: RADIOLOGY CONSULTATION ON OUTSIDE IMAGING STUDY STUDY INITIALLY PERFORMED: 05/10/2024 at [facility] [place]. TYPE OF STUDY: Multiple CT images of the chest with intravenous contrast are provided at the time of this interpretation. CONTRAST ROUTE: Contrast was administered via the intravenous route. The protocol was adequate to address the clinical question. The outside final report was not available at the time of this second opinion interpretation. TYPE OF CONSULTATION: Consult on outside imaging study with images submitted through Outside Image Sharing Service DATE OF CONSULTATION: 05/10/2024 8:50 PM HISTORY: 83-year-old man, post-aortic valve replacement presenting with ground-level fall COMPARISON: CT chest abdomen pelvis dated 04/03/2024 FINDINGS: There is left greater than right dependent atelectasis in the lung bases. There is a small left pleural effusion. There is no right pleural effusion. There is no suspicious pulmonary nodule. Multivessel coronary artery calcifications are present. The patient is status post aortic valve replacement. 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 A right paratracheal lymph node measures approximately 1 cm short axis (table position 132). Findings in the abdomen are dictated separately in the aortoiliofemoral runoff study. Multilevel degenerative changes are noted in the spine, including a wedge deformity of the L2 vertebral body. Bilateral shoulder arthroplasties are present. Procedure Note Brayan Emerson MD - 05/11/2024 EXAMINATION: RADIOLOGY CONSULTATION ON OUTSIDE IMAGING STUDY STUDY INITIALLY PERFORMED: 05/10/2024 at [facility] [place]. TYPE OF STUDY: Multiple CT images of the chest with intravenous contrast are provided at the time of this interpretation. CONTRAST ROUTE: Contrast was administered via the intravenous route. The protocol was adequate to address the clinical question. The outside final report was not available at the time of this second opinion interpretation. TYPE OF CONSULTATION: Consult on outside imaging study with images submitted through Outside Image Sharing Service DATE OF CONSULTATION: 05/10/2024 8:50 PM HISTORY: 83-year-old man, post-aortic valve replacement presenting with ground-level fall COMPARISON: CT chest abdomen pelvis dated 04/03/2024 FINDINGS: There is left greater than right dependent atelectasis in the lung bases. There is a small left pleural effusion. There is no right pleural effusion. There is no suspicious pulmonary nodule. Multivessel coronary artery calcifications are present. The patient is status post aortic valve replacement. 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 A right paratracheal lymph node measures approximately 1 cm short axis (table position 132). Findings in the abdomen are dictated separately in the aortoiliofemoral runoff study. Multilevel degenerative changes are noted in the spine, including a wedge deformity of the L2 vertebral body. Bilateral shoulder arthroplasties are present. IMPRESSION: No acute findings in the chest. Expected postoperative changes following aortic valve replacement. The findings, conclusions and recommendations within this report do not replace the initial findings, conclusions and recommendations made at the facility where the study was performed based upon the imaging and clinical condition at that time. Comparison with the prior report and clinical history is necessary. The provided images may or may not represent the makah source data set and thus may contain changes that may lower the accuracy of this second-opinion interpretation. Dictated by: Vikash Mccall M.D. The radiology attending physician has personally reviewed this study, and had reviewed and/or edited this written report and agrees with it. Electronically signed by: Brayan Emerson M.D. Paula Mcclellan MD IMG CT PROCEDURES Final Result * (ABNORMAL) Urinalysis reflex to microscopic and culture Urine, bladder (05/10/2024 4:53 PM SCREW EYE ASSEMBLER) Color, ur Straw Yellow Clarity, ur Clear Clear [facility] Specific gravity, ur >1.042(H) 1.003 - 1.030 [facility] pH, urine 7.5 [facility] Comment: Interpretive Data U rine pH is affected by diet, medications, systemic acid-base disturbances, and renal tubular function. pH may affect urinary stone formation. For example, urine pH below 6.0 may help reduce the tendency for calcium phosphate stones and pH greater than 6.0 may reduce the tendency for uric acid stone formation. Source: [facility] [facility] Current Interpretive Data was last revised on 2017 Protein, ur ql Trace Negative [facility] Glucose, ur ql Negative Negative [facility] Ketones, ur Negative Negative [facility] Bilirubin, ur Negative Negative [facility] Blood, ur Negative Negative [facility] Urobilinogen, ur <2.0 <2.0 mg/dL [facility] Nitrite, ur Negative Negative [facility] Leukocyte esterase, ur Negative Negative [facility] UA reflex comment Reflex conditions for microscopic UA and culture not met. [facility] Urine, bladder 05/10/2024 4: 53 PM SCREW EYE ASSEMBLER 05/10/2024 5:01 PM SCREW EYE ASSEMBLER us Paula Mcclellan MD LAB MICROBIOLOGY - GENE RAL ORDERABLES Final Result Performing Organization Address City/[facility] Co de Phone Number [facility] Department [place] [address] * Check Sample (05/10/2024 3:18 PM SCREW EYE ASSEMBLER) ABO Rh O Positive [facility] OTHER 05/10/2024 3:18 PM SCREW EYE ASSEMBLER 05/10/2024 3:47 PM SCREW EYE ASSEMBLER us Alejandro Soliz III, MD LAB BLOOD ORDER AMARA Final Result Performing Organization Address [facility] de Phone Number [facility] Department [place] [address] [facility] * AR CRITICAL CARE ILL/INJURED PATIENT INIT 30-74 MIN (05/10/2024 3:13 PM SCREW EYE ASSEMBLER) Narrative Alejandro Soliz III, MD - 05/10/2024 3:13 PM SCREW EYE ASSEMBLER Alejandro Soliz III, MD 05/19/2024 6:38 PM Critical Care Performed by: Alejandro Soliz III, MD Authorized by: Williams Johnson MD Critical care provider statement: As reflected in the history, physical exam, orders, notes, and/or MDM, I was personally present while the patient was critically ill and provided critical care services for 30 minutes, excluding time involved in separately billable procedures. Critical care was necessary to treat or prevent imminent or life-threatening deterioration of the following condition(s): level 1 trauma Critical care was time spent by me providing the following: continuous pulse oximetry, interpretation of bedside monitors, imaging, and arterial/venous lab draws, serial bedside patient exams, serial laboratory checks and continuous telemetry I provided emergent necessary critical care medicine services to this patient. I ordered and reviewed test results and/or imaging studies. I spent time discussing the management of this critically ill patient with consultants and the medical staff. I spent time discussing the management and therapeutic options for this critically ill patient with the patient themselves or with the appropriate designated surrogate decision-maker. I spent time documenting in the medical record. us Williams Johnson MD IN CLINIC/BEDSIDE ORDERABLES Edited Result - Final * (ABNORMAL) POC Blood Gas and Chemistries, Venous - (05/10/2024 2:50 PM SCREW EYE ASSEMBLER) pH, [place] POC 7.36 7.32 - 7.43 pCO2, fortino POC 43 40 - 50 mmHg [facility] pO2, [place] POC 20(C) mmHg [facility] Na, POC 124(L) 135 - 145 mmol/L [facility] K POC 5.2(H) 3.3 - 4.9 mmol/L [facility] Comment: Interpretive Data Not all point of care methods assess for hemolysis. Confirm with instrument and retest K+ if not consistent with clinical signs and symptoms. Current Interpretive Data was last revised on 2023. Cl, POC 97 97 - 110 mmol/L [facility] Ionized Ca, POC 4.87 4.50 - 5.10 mg/dL [facility] Glucose, POC 100 70 - 199 mg/dL [facility] Lactate, POC 1.1 0.7 - 2.0 mmol/L [facility] MetHb, [place] POC <0.1 0.0 - 1.9 % [facility] O2 Sat, [place] POC (Shayne) 23 % [facility] Base excess, POC -1.2 mmol/L [facility] Hct, POC 29.0(L) 41.4 - 51.6 % [facility] Total Hb, POC 9.5(L) 13.8 - 17.2 g/dL [facility] Blood 05/10/2024 2:50 PM SCREW EYE ASSEMBLER 05/10/2024 2:50 PM SCREW EYE ASSEMBLER Alejandro Soliz III, MD LAB POCT ORDERA BLES - DEVICE Final Result [facility] Department [place] [address] * (ABNORMAL) Thromboelastometry Panel - Heparin (05/10/2024 2:47 PM SCREW EYE ASSEMBLER) Pathologist [facility] HEPTEM-CT 129(L) 141 - 215 sec HEPTEM-A5 48 33 - 51 mm [facility] HEPTEM-A10 58 44 - 61 mm [facility] HEPTEM-A20 63 52 - 67 mm [facility] HEPTEM-MCF 63 54 - 69 mm [facility] Blood 05/10/2024 2:47 PM SCREW EYE ASSEMBLER 05/10/2024 2:56 PM SCREW EYE ASSEMBLER us Alejandro Soliz III, MD LAB BLOOD ORDER AMARA Edited Result - Final Performing Organization Address City/[facility] Co de Phone Number [facility] Department [place] [address] * (ABNORMAL) Thromboelastometry Panel - Intrinsic (05/10/2024 2:47 PM SCREW EYE ASSEMBLER) [facility] INTEM-CT 126(L) 139 - 205 sec INTEM-A5 49 36 - 54 mm [facility] INTEM-A10 59 46 - 63 mm [facility] INTEM-A20 63 53 - 68 mm [facility] INTEM-MCF 63 55 - 70 mm [facility] INTEM-LI60 89(L) 93 - 100 % [facility] INTEM-ML 15(H) 0 - 7 % [facility] Blood 05/10/2024 2:47 PM SCREW EYE ASSEMBLER 05/10/2024 2:56 PM SCREW EYE ASSEMBLER us Alejandro Soliz III, MD LAB BLOOD ORDER AMARA Edited Result - Final Performing Organization Address City/[facility]/ZIP Co de Phone Number [facility] Department [place] [address] * (ABNORMAL) Thromboelastometry Panel - Fibrinogen (05/10/2024 2:47 PM SCREW EYE ASSEMBLER) FIBTEM-A5 22(H) 5 - 16 mm FIBTEM-A10 25(H) 6 - 17 mm [facility] FIBTEM-A20 26(H) 6 - 18 mm [facility] FIBTEM-MCF 26(H) 9 - 19 mm [facility] Blood 05/10/2024 2:47 PM SCREW EYE ASSEMBLER 05/10/2024 2:56 PM SCREW EYE ASSEMBLER Alejandro Soliz III, MD LAB BLOOD ORDER AMARA Edited Result - Final [facility] Department [place] [address] * (ABNORMAL) Thromboelastometry Panel - Extrinsic (05/10/2024 2:47 PM SCREW EYE ASSEMBLER) Pathologist [facility] EXTEM-CT 101(H) 51 - 73 sec EXTEM-A5 55(H) 33 - 52 mm [facility] EXTEM-A10 65(H) 45 - 62 mm [facility] EXTEM-A20 69 54 - 69 mm [facility] EXTEM-MCF 69 57 - 72 mm [facility] EXTEM-LI60 88(L) 94 - 100 % [facility] EXTEM-ML 16(H) 0 - 6 % [facility] Blood 05/10/2024 2:47 PM SCREW EYE ASSEMBLER 05/10/2024 2:56 PM SCREW EYE ASSEMBLER Alejandro Soliz III, MD LAB BLOOD ORDER AMARA Edited Result - Final [facility] Department [place] [address] * eGFR (05/10/2024 2:47 PM SCREW EYE ASSEMBLER) Pathologist [facility] eGFR 74 >=60 mL/min/1. 73 m2 Comment: [...] interpretive data was last reviewed 2021. Blood 05/10/2024 2:47 PM SCREW EYE ASSEMBLER 05/10/2024 2:56 PM SCREW EYE ASSEMBLER Williams Johnson MD LAB BLOOD ORDERABLES Final Re sult [facility] One [facility] Department [place] [address] * Differential, auto (05/10/2024 2:47 PM SCREW EYE ASSEMBLER) Neutrophil abs 4.3 1.5 - 6.5 K/cumm Imm gran abs 0.0 0.0 - 0.1 K/cumm [facility] Lymphocyte abs 0.8 0.8 - 3.3 K/cumm [facility] Monocyte abs 0.8 0.2 - 0.8 K/cumm [facility] Eosinophil abs 0.2 0.0 - 0.5 K/cumm [facility] Basophil abs 0.1 0.0 - 0.1 K/cumm [facility] Neutrophil pct 70.7 % [facility] Comment: Interpretive Data Percent cell count reference ranges are not reported, since discordance with absolute values may lead to misinterpretation of CBC data. Current Interpretive Data was last revised on 2017. Imm gran pct 0.3 % [facility] Comment: Interpretive Data Percent cell count reference ranges are not reported, since discordance with absolute values may lead to misinterpretation of CBC data. Current Interpretive Data was last revised on 2017. Lymphocyte pct 12.4 % [facility] Comment: Interpretive Data Percent cell count reference ranges are not reported, since discordance with absolute values may lead to misinterpretation of CBC data. Current Interpretive Data was last revised on 2017. Monocyte pct 13.0 % [facility] Comment: Interpretive Data Percent cell count reference ranges are not reported, since discordance with absolute values may lead to misinterpretation of CBC data. Current Interpretive Data was last revised on 2017. Eosinophil pct 2.8 % [facility] Comment: Interpretive Data Percent cell count reference ranges are not reported, since discordance with absolute values may lead to misinterpretation of CBC data. Current Interpretive Data was last revised on 2017. Basophil pct 0.8 % [facility] Comment: Interpretive Data Percent cell count reference ranges are not reported, since discordance with absolute values may lead to misinterpretation of CBC data. Current Interpretive Data was last revised on 2017. Blood 05/10/2024 2:47 PM SCREW EYE ASSEMBLER 05/10/2024 2:56 PM SCREW EYE ASSEMBLER us Alejandro Soliz III, MD LAB BLOOD ORDER AMRAA Final Result [facility] One [facility] Department [place] [address] * (ABNORMAL) CBC with auto differential (05/10/2024 2:47 PM SCREW EYE ASSEMBLER) WBC 6.1 3.8 - 9.9 K/cumm Comment:Code Blue Specimen Hgb 9.3(L) 13.0 - 17.5 g/dL [facility] Hct 26.9(L) 38.9 - 50.3 % [facility] Plt 168 150 - 400 K/cumm [facility] MPV 10.5 9.1 - 12.3 fL [facility] RBC 3.16(L) 4.30 - 5.80 M/cumm [facility] MCV 85.1 81.3 - 96.4 fL [facility] MCH 29.4 27.1 - 33.3 pg [facility] MCHC 34.6 32.3 - 35.7 g/dL [facility] RDW CV 15.7(H) 11.1 - 14.9 % [facility] RDW SD 47.9 35.7 - 48.1 fL [facility] NRBC abs 0.00 0.00 - 0.01 K/cumm [facility] Blood 05/10/2024 2:47 PM SCREW EYE ASSEMBLER 05/10/2024 2:56 PM SCREW EYE ASSEMBLER Alejandro Soliz III, MD LAB BLOOD ORDER AMARA Final Result Performing Organization Address [facility] de Phone Number [facility] [place] [address] * aPTT (05/10/2024 2:47 PM SCREW EYE ASSEMBLER) aPTT 35 28 - 38 sec Comment: Code Blue Specimen Interpretive Data Heparin therapeutic range: 66.0 - 100.0 seconds. Range based on correlation with therapeutic heparin activity range of 0.3 - 0.7 Units/mL. Current interpretive data was last revised on 2022. Blood 05/10/2024 2:47 PM SCREW EYE ASSEMBLER 05/10/2024 2:56 PM SCREW EYE ASSEMBLER Alejandro Soliz III, MD LAB BLOOD ORDER AMARA Final Result Performing Organization Address City/[facility] de Phone Number [facility] [place] [address] * (ABNORMAL) Protime-INR (05/10/2024 2:47 PM SCREW EYE ASSEMBLER) PT 19.7(H) 9.7 - 13.0 sec Comment:Code Blue Specimen INR 1.80(H) 0.90 - 1.20 [facility] Comment: Code Blue Specimen Interpretive data Oral anticoagulant therapeutic ranges: Venous thromboembolism prophylaxis or treatment: 2.0-3.0 CARDIOLOGY Standard range: 2.0-3.0 High-intensity range: 2.5-3.5 Refer to indication-specific guidelines for appropriate target ranges for prosthetic heart valve replacement. Current interpretive data was last revised on 2019. Blood 05/10/2024 2:47 PM SCREW EYE ASSEMBLER 05/10/2024 2:56 PM SCREW EYE ASSEMBLER Alejandro Soliz III, MD LAB BLOOD ORDER AMARA Final Result Performing Organization Address [facility] de Phone Number [facility] Department [place] [address] * Type and screen (05/10/2024 2:47 PM SCREW EYE ASSEMBLER) Alex, indirect Negative ABO Rh O Positive [facility] Blood 05/10/2024 2:47 PM SCREW EYE ASSEMBLER 05/10/2024 2:59 PM SCREW EYE ASSEMBLER Narrative [facility] - 05/10/2024 3:57 PM SCREW EYE ASSEMBLER Has the patient had Daratumumab or Isatuximab in the past 6 months?->Unknown Alejandro Soliz III, MD LAB BLOOD BANK TEST ORDERABLES Final Result Performing Organization Address [facility] de Phone Number [facility] [place] [address] * Ethanol (05/10/2024 2:47 PM SCREW EYE ASSEMBLER) Ethanol <10 <=10 mg/dL Comment: Code Blue Specimen Interpretive Data Legal limit of intoxication > or = 80 mg/dL Levels > or = 400 mg/dL are potentially TOXIC. Current interpretive data was last revised on 2018. Blood 05/10/2024 2:47 PM SCREW EYE ASSEMBLER 05/10/2024 2:56 PM SCREW EYE ASSEMBLER Alejandro Soliz III, MD LAB BLOOD ORDER AMARA Final Result Performing Organization Address [facility]/State/ZIP Co de Phone Number [facility] One [facility] Department [place] [address] * (ABNORMAL) Comprehensive metabolic panel (05/10/2024 2:47 PM SCREW EYE ASSEMBLER) Sodium 124(L) 135 - 145 mmol/L Potassium, pl 5.4(H) 3.3 - 4.9 mmol/L [facility] Comment:Hemolyzed; Potassium value may be falsely elevated by as much as 0.6-1.0 mmol/L. Suggest redraw and reanalysis. Chloride 92(L) 97 - 110 mmol/L [facility] CO2 23 22 - 32 mmol/L [facility] Anion gap 9 2 - 15 mmol/L [facility] BUN 19 6 - 25 mg/dL [facility] Creatinine 1.00 0.80 - 1.30 mg/dL [facility] Glucose 92 70 - 199 mg/dL [facility] Comment: Interpretive Data Fasting glucose >/= [...] 2022. Calcium 8.7 8.5 - 10.3 mg/dL [facility] Bilirubin, total 0.5 0.1 - 1.2 mg/dL [facility] Protein, pl 6.4(L) 6.5 - 8.5 g/dL [facility] Albumin 3.4(L) 3.5 - 5.0 g/dL [facility] Alk phos 114 40 - 130 Units/L [facility] ALT 26 7 - 55 Units/L [facility] AST 57(H) 10 - 50 Units/L [facility] Comment:Hemolyzed; result ma y be falsely elevated Blood 05/10/2024 2:4 7 PM SCREW EYE ASSEMBLER 05/10/2024 2:56 PM SCREW EYE ASSEMBLER us Williams Johnson MD LAB BLOOD ORDERABLES Final Re sult [facility] Department [place] [address] * MCT Mobile Cardiac Telemetry Event Monitor (04/20/2024 2:53 PM SCREW EYE ASSEMBLER) Anatomical Region Laterality Modality Electrocardiogra phy 05/19/2024 11:5 9 PM SCREW EYE ASSEMBLER Narrative 05/26/2024 9:00 AM CDT [facility] [address] [place] [address] CARDIAC EVENT MONITOR REPORT Patient Name: GIAN LEE E : 1940 (83y 9m) Gender: M Study Date: 05/19/2024 11:59:00 PM Ht(Inch): Wt(Lb): BSA: Tech: [email or web address] Location: [id number] Order Provider: KLAUS HUMPHREY BMI: Ref Provider: KLAUS HUMPHREY PROCEDURES: Cardiac Event Monitor: Cardiac Event Monitor. INDICATIONS: I48.0 Paroxysmal atrial fibrillation. MEASUREMENTS: Holter Data Value Min Rate: 36 BPM Min Rate Timestamp: 07:36:00 Max Rate: 116 BPM Max Rate Timestamp: 09:10:00 Mean Rate: 59 BPM Holter Data Value FINDINGS: Protocol: Total QRS: 0 Date Recorded: 2024-05-19 23:59:00 Date Processed: 2024-05-19 23:59:00 [employer] Maker: [email or web address] Study Quality: Study quality is good. CONCLUSIONS: 1. Predominant rhythm is atrial flutter with variable conduction (38% of study period, 10d 10h 30m total). 2. Heart rate and rate variability is appropriate. 3. No prolonged pauses. 4. There are events of atrial flutter noted. 5. There are no ventricular tachycardia events noted. 6. There were symptomatic episodes documented. 7. Number of manually transmitted events: 11. 8. Symptomatic episodes were associated with atrial flutter. SUMMARY: No clinically significant pauses were demonstrated. 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 Clinically significant arrhythmias were demonstrated. Number of manually transmitted events: 11. Symptomatic episodes were associated with atrial flutter. Frequent supraventricular ectopy (18% burden). Rare ventricular ectopy. There are events of atrial flutter noted. There are no ventricular tachycardia events noted. Electronically Signed By: Klaus Humphrey MD PhD 05/26/2024 9:00:21 AM CDT Procedure Note Klaus Humphrey MD PhD - 05/26/2024 [place] [address] [place] [address] CARDIAC EVENT MONITOR REPORT Patient Name: GIAN LEE E : 1940 (83y 9m) Gender: M Study Date: 05/19/2024 11:59:00 PM Ht(Inch): Wt(Lb): BSA: Tech: KRISTEN Location: [id number] Order Provider: KLAUS HUMPHREY BMI: Ref Provider: KLAUS HUMPHREY PROCEDURES: Cardiac Event Monitor: Cardiac Event Monitor. INDICATIONS: I48.0 Paroxysmal atrial fibrillation. MEASUREMENTS: Holter Data Value Min Rate: 36 BPM Min Rate Timestamp: 07:36:00 Max Rate: 116 BPM Max Rate Timestamp: 09:10:00 Mean Rate: 59 BPM Holter Data Value FINDINGS: Protocol: Total QRS: 0 Date Recorded: 2024-05-19 23:59:00 Date Processed: 2024-05-19 23:59:00 Dairy Products Maker: KRISTEN Study Quality: Study quality is good. CONCLUSIONS: 1. Predominant rhythm is atrial flutter with variable conduction (38% ofstudy period, 10d 10h 30m total). 2. Heart rate and rate variability is appropriate. 3. No prolonged pauses. 4. There are events of atrial flutter noted. 5. There are no ventricular tachycardia events noted. 6. There were symptomatic episodes documented. 7. Number of manually transmitted events: 11. 8. Symptomatic episodes were associated with atrial flutter. SUMMARY: No clinically significant pauses were demonstrated. Low Grade conductionsystem disease is demonstrated. Clinically significant arrhythmias were demonstrated.Number of manually transmitted events: 11. Symptomatic episodes were associatedwith atrial flutter. Frequent supraventricular ectopy (18% burden). Rare ventricularectopy. There are events of atrial flutter noted. There are no ventricular tachycardiaevents noted. Electronically Signed By: Klaus Humphrey MD PhD 05/26/2024 9:00:21 AM CDT Klaus Humphrey MD PhD CV CARDIAC SERVICES AR OCEDURES Final Result * eGFR (04/20/2024 12:20 AM SCREW EYE ASSEMBLER) eGFR 71 >=60 mL/min/1. 73 m2 Comment: [...] reviewed 2021. Blood 04/20/2024 12:2 0 AM SCREW EYE ASSEMBLER 04/20/2024 12:48 AM SCREW EYE ASSEMBLER Louann Conti MD LAB BLOOD ORDERABLES F inal Result Performing Organization Address City/[facility] Co de Phone Number [facility] [address] [place] [address] * Magnesium (04/20/2024 12:20 AM SCREW EYE ASSEMBLER) Pathologist [facility] Magnesium 2.2 1.4 - 2.5 mg/dL Blood 04/20/2024 12:2 0 AM SCREW EYE ASSEMBLER 04/20/2024 12:48 AM SCREW EYE ASSEMBLER Louann Conti MD LAB BLOOD ORDERABLES F inal Result Performing Organization Address [facility] Co de Phone Number [facility] [address] [place] [address] * (ABNORMAL) Renal function panel (04/20/2024 12:20 AM SCREW EYE ASSEMBLER) Sodium 138 135 - 145 mmol/L Potassium, pl 4.3 3.3 - 4.9 mmol/L [facility] Chloride 102 97 - 110 mmol/L [facility] CO2 26 22 - 32 mmol/L [facility] Anion gap 10 2 - 15 mmol/L [facility] BUN 26(H) 6 - 25 mg/dL [facility] Creatinine 1.04 0.80 - 1.30 mg/dL [facility] Glucose 119 70 - 199 mg/dL [facility] Comment: Interpretive Data Fasting glucose >/= [...] 2022. Calcium 8.5 8.5 - 10.3 mg/dL [facility] Phosphorus, pl 2.9 2.3 - 4.5 mg/dL [facility] Albumin 3.5 3.5 - 5.0 g/dL [facility] Blood 04/20/2024 12:2 0 AM SCREW EYE ASSEMBLER 04/20/2024 12:48 AM SCREW EYE ASSEMBLER us Louann Conti MD LAB BLOOD ORDERABLES F inal Result [facility] [address] Department [place] [address] * eGFR (04/19/2024 12:41 AM SCREW EYE ASSEMBLER) eGFR 72 >=60 mL/min/1. 73 m2 Comment: [...] reviewed 2021. Blood 04/19/2024 12:4 1 AM SCREW EYE ASSEMBLER 04/19/2024 12:56 AM SCREW EYE ASSEMBLER Louann Conti MD LAB BLOOD ORDERABLES F inal Result Performing Organization Address City/[facility]/ZIP Co de Phone Number [facility] [address] [place] [address] * Magnesium (04/19/2024 12:41 AM SCREW EYE ASSEMBLER) [facility] Magnesium 2.3 1.4 - 2.5 mg/dL Blood 04/19/2024 12:4 1 AM SCREW EYE ASSEMBLER 04/19/2024 12:56 AM SCREW EYE ASSEMBLER Louann Conti MD LAB BLOOD ORDERABLES F inal Result Performing Organization Address [facility] Co de Phone Number [facility] [address] [place] [address] * (ABNORMAL) Renal function panel (04/19/2024 12:41 AM SCREW EYE ASSEMBLER) Sodium 138 135 - 145 mmol/L Potassium, pl 4.6 3.3 - 4.9 mmol/L [facility] Chloride 103 97 - 110 mmol/L [facility] CO2 26 22 - 32 mmol/L [facility] Anion gap 9 2 - 15 mmol/L [facility] BUN 31(H) 6 - 25 mg/dL [facility] Creatinine 1.02 0.80 - 1.30 mg/dL [facility] Glucose 97 70 - 199 mg/dL [facility] Comment: Interpretive Data Fasting glucose >/= [...] 2022. Calcium 8.6 8.5 - 10.3 mg/dL [facility] Phosphorus, pl 3.0 2.3 - 4.5 mg/dL [facility] Albumin 3.5 3.5 - 5.0 g/dL [facility] Blood 04/19/2024 12:4 1 AM SCREW EYE ASSEMBLER 04/19/2024 12:56 AM SCREW EYE ASSEMBLER Louann Conti MD LAB BLOOD ORDERABLES F inal Result Performing Organization Address City/[facility]/ZIP Co de Phone Number [facility] [address] Department [place] [address] * ECG 12 lead (04/18/2024 10:45 AM SCREW EYE ASSEMBLER) 04/18/2024 10:4 5 AM SCREW EYE ASSEMBLER Narrative [facility] - 04/18/2024 1:35 PM SCREW EYE ASSEMBLER Vent Rate: 66 bpm RR Interval: 897 msec AR Interval: 0 msec QRS Duration: 91 msec QT Interval: 251 msec QTC Interval: 265 msec P-R-T [place]: 0 - 12 - 0 degrees IMPRESSION: ATRIAL FIBRILLATION NONSPECIFIC ST \T\ T-WAVE ABNORMALITY ABNORMAL RHYTHM ECG Electronically Signed By: Klaus Humphrey MD PhD us Klaus Humphrey MD PhD ECG ORDERABLES Final Result Performing Organization Address [facility]/ZIP Co de Phone Number [facility] * ECG 12 lead (04/18/2024 7:41 AM SCREW EYE ASSEMBLER) 04/18/2024 7:41 AM SCREW EYE ASSEMBLER Narrative [facility] [place] - 04/18/2024 7:53 AM SCREW EYE ASSEMBLER Vent Rate: 65 bpm RR Interval: 921 msec AR Interval: 0 msec QRS Duration: 101 msec QT Interval: 442 msec QTC Interval: 453 msec P-R-T [place]: 0 - 2 - 10 degrees IMPRESSION: ATRIAL FIBRILLATION NONSPECIFIC T-WAVE ABNORMALITY ABNORMAL RHYTHM ECG Electronically Signed By: Klaus Humphrey MD PhD us Louann Conti MD ECG ORDERABLES Final Result Performing Organization Address [facility] Co de Phone Number [facility] * ECG 12 lead (04/18/2024 3:01 AM SCREW EYE ASSEMBLER) 04/18/2024 3:01 AM SCREW EYE ASSEMBLER Narrative [facility] - 04/18/2024 7:57 AM SCREW EYE ASSEMBLER Vent Rate: 64 bpm RR Interval: 930 msec AR Interval: 0 msec QRS Duration: 94 msec QT Interval: 441 msec QTC Interval: 451 msec P-R-T [place]: 0 - -4 - -36 degrees IMPRESSION: ATRIAL FIBRILLATION INFERIOR MYOCARDIAL INFARCTION , PROBABLY OLD WITH POSTERIOR EXTENSION ABNORMAL ECG Electronically Signed By: Klaus Humphrey MD PhD WILL Navas Jr. ECG ORDERABLES Final Result Performing Organization Address [facility] de Phone Number [facility] [place] [facility] * eGFR (04/18/2024 12:24 AM SCREW EYE ASSEMBLER) eGFR 69 >=60 mL/min/1. 73 m2 Comment: [...] reviewed 2021. Blood 04/18/2024 12:2 4 AM SCREW EYE ASSEMBLER 04/18/2024 12:44 AM SCREW EYE ASSEMBLER Louann Conti MD LAB BLOOD ORDERABLES F inal Result Performing Organization Address City/[facility]/ZIP Co de Phone Number [facility] [address] [facility] [place] [address] * Magnesium (04/18/2024 12:24 AM SCREW EYE ASSEMBLER) Pathologist [facility] Magnesium 2.4 1.4 - 2.5 mg/dL Blood 04/18/2024 12:2 4 AM SCREW EYE ASSEMBLER 04/18/2024 12:44 AM SCREW EYE ASSEMBLER Louann Conti MD LAB BLOOD ORDERABLES F inal Result Performing Organization Address [facility] Co de Phone Number [facility] [address] [facility] [place] [address] * (ABNORMAL) Renal function panel (04/18/2024 12:24 AM SCREW EYE ASSEMBLER) Pathologist [facility] Sodium 137 135 - 145 mmol/L Potassium, pl 4.3 3.3 - 4.9 mmol/L [facility] Chloride 101 97 - 110 mmol/L [facility] CO2 25 22 - 32 mmol/L [facility] Anion gap 11 2 - 15 mmol/L [facility] BUN 37(H) 6 - 25 mg/dL [facility] Creatinine 1.06 0.80 - 1.30 mg/dL [facility] Glucose 102 70 - 199 mg/dL [facility] Comment: Interpretive Data Fasting glucose >/= [...] 2022. Calcium 8.9 8.5 - 10.3 mg/dL [facility] Phosphorus, pl 2.9 2.3 - 4.5 mg/dL [facility] Albumin 3.8 3.5 - 5.0 g/dL [facility] Blood 04/18/2024 12:2 4 AM SCREW EYE ASSEMBLER 04/18/2024 12:44 AM SCREW EYE ASSEMBLER us Louann Conti MD LAB BLOOD ORDERABLES F inal Result [facility] [address] Department [place] [address] * EGD (04/16/2024 7:56 AM SCREW EYE ASSEMBLER) Anatomical Region Laterality Modality Other Narrative Procedure Note Roderick Bedolla MD - 04/16/2024 7:56 AM CST ENDOSCOPY LAB Patient Name: Gian Lee Procedure Date: 04/16/2024 7:56 AM Admit Type: Inpatient Room: [facility] Date of : 1940 Instrument Name: [...] Final Result * eGFR (04/15/2024 12:25 AM SCREW EYE ASSEMBLER) eGFR 61 >=60 mL/min/1. 73 m2 Comment: [...] reviewed 2021. Blood 04/15/2024 12:2 5 AM SCREW EYE ASSEMBLER 04/15/2024 12:48 AM SCREW EYE ASSEMBLER us Louann Conti MD LAB BLOOD ORDERABLES F inal Result Performing Organization Address [facility]/State/ZIP Co de Phone Number [facility] [address] Department [place] [address] * (ABNORMAL) Protime-INR (04/15/2024 12:25 AM SCREW EYE ASSEMBLER) Pathologist [facility] PT 16.8(H) 9.7 - 13.0 sec INR 1.54(H) 0.90 - 1.20 [facility] Comment: Interpretive data Oral anticoagulant therapeutic ranges: Venous thromboembolism prophylaxis or treatment: 2.0-3.0 CARDIOLOGY Standard range: 2.0-3.0 High-intensity range: 2.5-3.5 Refer to indication-specific guidelines for appropriate target ranges for prosthetic heart valve replacement. Current interpretive data was last revised on 2019. Blood 04/15/2024 12:2 5 AM SCREW EYE ASSEMBLER 04/15/2024 12:48 AM SCREW EYE ASSEMBLER us Jaycee SOLIS LAB BLOOD ORDERABLES Final Re sult Performing Organization Address [facility]/ZIP Co de Phone Number [facility] [address] Department [place] [address] * (ABNORMAL) Renal function panel (04/15/2024 12:25 AM SCREW EYE ASSEMBLER) Pathologist [facility] Sodium 140 135 - 145 mmol/L Potassium, pl 4.5 3.3 - 4.9 mmol/L [facility] Chloride 103 97 - 110 mmol/L [facility] CO2 27 22 - 32 mmol/L [facility] Anion gap 10 2 - 15 mmol/L [facility] BUN 27(H) 6 - 25 mg/dL [facility] Creatinine 1.17 0.80 - 1.30 mg/dL [facility] Glucose 103 70 - 199 mg/dL [facility] Comment: Interpretive Data Fasting glucose >/= [...] 2022. Calcium 9.5 8.5 - 10.3 mg/dL [facility] Phosphorus, pl 4.2 2.3 - 4.5 mg/dL [facility] Albumin 3.7 3.5 - 5.0 g/dL [facility] Blood 04/15/2024 12:2 5 AM SCREW EYE ASSEMBLER 04/15/2024 12:48 AM SCREW EYE ASSEMBLER us Louann Conti MD LAB BLOOD ORDERABLES F inal Result [facility] [address] [place] [address] from Last 3 Months Insurance [facility] MEDICARE [facility] FEDERAL Advance Directives For more information, please contact: [phone] * Full Code (Latest Code Status on File) Date Activated Date Inactivated Comments 05/11/2024 1:31 AM 05/13/2024 8:41 PM * Full Code Date Activated Date Inactivated Comments 05/11/2024 1:08 AM 05/11/2024 1:31 AM * Full Code Date Activated Date Inactivated Comments 04/03/2024 10:09 AM 04/20/2024 7:02 PM * Full Code Date Activated Date Inactivated Comments 03/18/2024 4:14 PM 03/27/2024 7:19 PM * Full Code Date Activated Date Inactivated Comments 12/19/2023 8:17 AM 12/19/2023 2:20 PM Care Teams Mosaic Technician Relationship Specialty Start Date End Date Martinez Pace MD [address] [facility] [address] [place], [place] [id number] PCP - General 05/02/16 Dion Abraham MD [address] [place] [address] Referring Physician Cardiology 02/18/24 Basil Adhikari MD [address] [facility] [address] [place] [address] Consulting Physician Cardiothoracic Surgery 02/19/24
--- OUTSIDE RECORDS SUMMARY | 2024-07-14 14:22 | XMS_ITS | Encounter Summary ---
Author Organization [facility] Healthcare Address [address] [place] [address] Care Team Providers Care Family Development Specialist Name Role Phone Martinez Pace MD Primary Care Provider Dion Abraham MD Unavailable [phone] Basil Adhikari MD Unavailable [phone] Encounter Details Date Type Department Care Team (Late st Contact Info) Description 06/11/2017 Telephone [facility] Operating Room [address] [place] [address] Sara Tipton Social History Tobacco Use Types Packs/Day Years Used Date Smoking Tobacco: Former Alcohol Use Standard Drinks/Week Comments Yes 0 (1 standard drink = 0.6 oz pur e alcohol) Sex and Gender Information Value Date Recorded Sex Assigned at Not on file Legal Sex Male 12:56 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 Gender Identity Not on file Sexual Orientation Straight 10/21/2019 9: 52 AM CDT documented as of this encounter Plan of Treatment Not on file documented as of this encounter Visit Diagnoses Not on filedocumented in this encounter Care Teams Family Development Specialist Relationship Specialty Start Date End Date Martinez Pace MD [address] [place] [address] [place] [address] PCP - General 05/02/16 Dion Abraham MD [address] [place] [address] Referring Physician Cardiology 02/18/24 Basil Adhikari MD [address] [facility] [address] [place] [address] Consulting Physician Cardiothoracic Surgery 02/19/24 documented as of this encounter
--- OUTSIDE RECORDS SUMMARY | 2024-07-14 14:22 | XMS_ITS ---
Author Organization [facility] Address [address] [place] [address] Care Team Providers Care Bung Dropper Name Role Phone Martinez Pace MD Primary Care Provider Dion Abraham MD Unavailable [phone] Basil Adhikari MD Unavailable [phone] Active Problems Problem Noted Date Diagnosed Date Abnormal vital signs 05/13/2024 Assessment & Plan (05/13/2024 2:10 PM GRAIN MERCHANDISING MANAGER): - Two charted HR in the 30s on 05/12 around 0445 AM. No symptoms reported at this time. Patient monitored in PM on 05/12 and 05/13 without observed HR in 30s. Patient reports his heart rate is being monitored by his humidifier operator Dr. Abraham. Patient had a recent TTE in 03/2024 with mild left ventricular systolic dysfunction, global kypokinesis, EF 50-55%, normal left ventricular cavity size, mild to moderate concentric left ventricular hypertrophy, normal aortic valve appearance and function, normal caliber aortic root. Back pain 05/12/2024 Assessment & Plan (05/12/2024 2:21 PM GRAIN MERCHANDISING MANAGER): - OSH CT: Multilevel degenerative changes are noted in the spine, including a wedge deformity of the L2 vertebral body. - Lidoderm patch ordered Hematoma of leg, left, initial encounter Assessment & Plan (05/13/2024 1:56 PM GRAIN MERCHANDISING MANAGER): - CTA overread w/ large L hematoma, [...] 05/11/2024 Assessment & Plan (05/12/2024 11:34 AM GRAIN MERCHANDISING MANAGER): - Patient reports on Vibegron for penile pain and reports previously tested for UTI which was negative - UA (05/10): neg nitrite, neg LE - will not reflex - G/C, trich urine pending- has not been sent as of 05/12 - Continue oxybutynin while inpatient Hyponatremia 05/11/2024 Assessment & Plan (05/13/2024 1:55 PM GRAIN MERCHANDISING MANAGER): - Na 124 on admission - Previous [...] 05/11/2024 Assessment & Plan (05/13/2024 1:57 PM GRAIN MERCHANDISING MANAGER): - 05/11: new admit, monitor Hgb and [...] 05/11/2024 Assessment & Plan (05/13/2024 1:59 PM GRAIN MERCHANDISING MANAGER): - Hgb trend (05/10): 9.3- 8.7 - Hgb trend (05/11): 8.2- 8.2- 7.8- - Hgb trend (05/12): 7.7- 7.9 - Hgb (05/13): 7.8 - CBC was monitored, no active signs or symptoms of bleeding, hemodynamically unsupported at discharge Fall, initial encounter 05/10/2024 Assessment & Plan (05/11/2024 2:30 PM GRAIN MERCHANDISING MANAGER): - mechanical fall - hypotensive at OSH, responsive to fluid resuscitation - CT head/spine overread w/o acute intracranial process or fractures, hematoma present correlating w/ exam - Cleared C-spine in ED Hyperkalemia 04/08/2024 Dysphagia 04/07/2024 Assessment & Plan (05/13/2024 3:35 PM GRAIN MERCHANDISING MANAGER): - s/p G-tube - language instructor consulted - Tube feeds via PEG, meds via PEG - patient and family support report recent advancement to nectar thick liquids (mostly for comfort) - FIRE LIEUTENANT consult - 05/12: appropriate for MBS, pending - 05/13: MBS to determine if diet can be advanced prior to discharge -- recommend NPO with ice chips - Discharge tube feeds: Isosource 220 ml via g-tube five times daily + 30 ml saline flush via PEG 6 times daily Hypotension 04/06/2024 Assessment & Plan (05/13/2024 1:55 PM GRAIN MERCHANDISING MANAGER): - Continue home midodrine - 05/11: hypotensive [...] 02/11/2024 Assessment & Plan (05/11/2024 2:31 PM GRAIN MERCHANDISING MANAGER): #Hx ascending aortic aneurysm sp aortic root replacement (03/18/24) #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 Numbness and tingling of upper extremity 024 Encounter for colonoscopy du e to history of adenomatous colonic polyps 11/03/2023 Cerebral infarction, unspecified 09/10/2023 Assessment & Plan (05/12/2024 11:34 AM GRAIN MERCHANDISING MANAGER): - Neurology note 04/08/24 recommends transitioning to [...] (11/24/2018): Added automatically from request for surgery [id number] Adenomatous polyp of cecum 06/18/2018 Overview (06/18/2018): Added automatically from request for surgery [id number] nursing home current use of anticoagulant therapy 0 11/07/2016 Basal cell carcinoma (BCC) of antihelix of ear 0 04/16/2016 Ascending aortic aneurysm 09/05/2015 Deep vein thrombosis (DVT) 06/22/2015 Assessment & Plan (05/11/2024 2:08 PM GRAIN MERCHANDISING MANAGER): - On Eliquis - Bilateral foot swelling - BLE duplex (05/11): 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) Pulmonary embolism 06/22/2015 Thyroid disease Assessment & Plan (05/11/2024 1:48 PM GRAIN MERCHANDISING MANAGER): - Continue levothyroxine 88 mcg daily Neuropathy Depression Overview (07/18/2017): Depression GARCÍA on CPAP Assessment & Plan (05/11/2024 1:48 PM GRAIN MERCHANDISING MANAGER): - Patient reports not wearing at this time OA (osteoarthritis) History of pulmonary embolus (PE) Assessment & Plan (05/12/2024 11:30 AM GRAIN MERCHANDISING MANAGER): #Afib #Embolic stroke, history of - Remote history of PE, recent embolic strokes - Recently switched from Xarelto to Eliquis - 05/12: resume Eliquis, monitor Hgb Current Treatment and Therapy Plans No current plan information found. Past Treatment and Therapy Plans No past plan information found. Lifetime Dose Tracking * Chemical Lifetime Dose Automatic Entry Manual Entr y Fluoro Time 13.1 minutes 13.1 minutes 0 minutes Air kerma at the reference point (Ka,r) 926.6 mGy 8 4.6 mGy 842 mGy DLP 844 mGycm 844 mGycm 0 mGycm
--- OUTSIDE RECORDS SUMMARY | 2024-07-14 14:22 | XMS_ITS | CONTINUITY OF CARE DOCUMENT ---
Author Name meet dsouza Address Unknown Organization [facility] Address [address] [place] [address] Phone [phone] Care Team Providers Care Lottery Office Manager Name Role Phone Jarad SIEGEL, Dion Unavailable [phone] ERIN VAZ MD Unavailable ERIN VAZ MD Unavailable [phone] PROBLEMS Condition Status Date Provider Notes Pulmonary hypertension active Dion Abraham MD PVD; active Dion Abraham MD Diastolic CHF active Dion Abraham MD [...] of pulmonary embolism active Dion beebe MD Arrhythmia active Dion Abraham MD big runn er a fib converrted AV block, 1st degree;not due drugs; active Dion Abraham MD Hypothyroidism active Dion Abraham MD part ial thryoidcmty Hyperlipidemia;NEG CRP;lpa 142 active Dion Abraham MD Screening active Dion Abraham MD Aneurysm of iliac artery active Dion beebe MD left repaiend by stent, right 3.5 left alone Tobacco use, quit active Dion Abraham MD t oo rmeot to screen FAMILY HISTORY OF HEART DISEASE active Dion Abraham MD [place], mot er pace Cerebral atherosclerosis active Dion beebe MD CVA;lacuanr;plaquing active Dion Light Prostatism active Dion Abraham MD BACK PAIN;CHRONIC active Dion Abraham MD CAD;CAROTID PLAQUE active Dion Abraham MD Aortic root aneursymnm active Dion Abraham MD replace root and valve 25 Pulsatile tinnitus, bilateral completed - Dion Abraham MD Anemia of chronic disease active Dion ivy MD abdominal aortic aneurysm (AAA) active Dion Abraham MD ENCOUNTERS Date Type Provider Location Encounter Diag nosis - In-person encounter Office Visit Dion Abraham MD [facility] [facility] Valvular heart diseaseArrhythmiaAV block, 1st degree;not due drugs;Aneurysm of iliac arteryCAD;CAROTID PLAQUEAortic root aneursymnmAnemia of chronic diseaseabdominal aortic aneurysm (AAA) - In-person encounter Office Visit Fredrick Peña MD [facility] - In-person encounter Office Visit Dion Abraham MD [place] [facility] Pulsatile tinnitus, bilateral - In-person encounter Office Visit Dion Abraham MD [facility] Neuropathic painAortic aneurysmTobacco use, quitAortic root aneursymnm - In-person encounter Office Visit Dion Abraham MD [place] B12 deficiencyArrhythmiaScreeningTobacco use, quitFAMILY HISTORY OF HEART DISEASECerebral atherosclerosisCVA;lacuanr;plaquingPros tatismBACK PAIN;CHRONIC - In-person encounter Office Visit Dion Abraham MD [place] [facility] Sleep apneaHistory of deep venous thrombosisHx of pulmonary embolismArrhythmiaAV block, 1st degree;not due drugs;HypothyroidismHyperlipidemia;NEG CRP;lpa 142 - In-person encounter Office Visit Dion Abraham MD [place] [facility] Diastolic CHFB12 deficiencyNeuropathic painValvular heart diseaseAortic aneurysm VITAL SIGNS Date Observation Value Provider Body Mass Index (Ratio) 22.35 kg/m2 Ana Abraham MD blood pressure, diastolic 70 mm[Hg] Kirsten nkLog blood pressure, systolic 112 mm[Hg] [facility], diastolic 70 mm[Hg] Saba esteves Tripath[facility] blood pressure, systolic 112 mm[Hg] Richelle hoang [facility] oxygen saturation, oximetry 95 % [facility] 66 /min [facility] respiratory rate E&M 12 /min [facility] weight E&M 147 [lb_av] [facility] height E&M 68 [in_i] [facility] blood pressure, cuff size regular An [facility] Body Mass Index (Ratio) 24.84 kg/m2 Renato Rosenthal DIRECTOR OF PRODUCT DEVELOPMENT weight E&M 163.4 [lb_av] Riazjared [place] blood pressure, diastolic 65 mm[Hg] Ky juarez [place] blood pressure, systolic 109 mm[Hg] Kyl ia [place] oxygen saturation, oximetry 97 % Riazjared [place] pulse rate 65 /min Riazlia [place] respiratory rate E&M 14 /min Kylia Nela stallworth blood pressure, cuff size regular Ky juarez [place] height E&M 68 [in_i] Riaza [place] Body Mass Index (Ratio) 24.93 kg/m2 Ana Abraham MD blood pressure, diastolic 60 mm[Hg] [facility]la [facility], systolic 100 mm[Hg] Daphnie comer [facility] blood pressure, cuff size regular Manjinder anderson [facility] oxygen saturation, oximetry 92 % Roberta [facility] pulse rate 62 /min Roberta [facility] weight E&M 164 [lb_av] Roberta [facility] height E&M 68 [in_i] Roberta [facility] Body Mass Index (Ratio) 24.17 kg/m2 Ana Abraham MD pulse rate 59 /min [facility] blood pressure, cuff size regular [facility], diastolic 68 mm[Hg] [facility], systolic 114 mm[Hg] [facility] oxygen saturation, oximetry 97 % [facility] weight E&M 159 [lb_av] Dee [place]au[place] respiratory rate E&M 12 /min Dee [place] height E&M 68 [in_i] [facility] Body Mass Index (Ratio) 25.09 kg/m2 Ana Abraham MD blood pressure, diastolic 62 mm[Hg] Bishnu rret blood pressure, systolic 120 mm[Hg] Jar ret pulse rate 51 /min Russel erda y blood pressure, cuff size regular Bishnu rret oxygen saturation, oximetry 99 % Russel respiratory rate E&M 14 /min Russel weight E&M 165 [lb_av] Russel erda y height E&M 68 [in_i] Russel Body Mass Index (Ratio) 24.63 kg/m2 Ana Abraham MD blood pressure, diastolic 74 mm[Hg] Li nkLogic blood pressure, systolic 123 mm[Hg] Missy kLogic blood pressure, cuff size regular Ja rret blood pressure, diastolic 74 mm[Hg] Ja rret blood pressure, systolic 123 mm[Hg] Jar ret pulse rate 55 /min Russel oxygen saturation, [...] rri Gruenenfelder blood pressure, systolic 102 mm[Hg] Kayode ri Clintonuenenfelder oxygen saturation, oximetry 96 % Delilah Grbookernfelder respiratory rate E&M 12 /min Delilah G ruenenfelder pulse rate 53 /min Delilah Gruenenfe lder weight E&M 166 [lb_av] Delilah Gruenenfe lder height E&M 68 [in_i] Delilah Gruenenfe lder ALLERGIES No Known Drug Allergies RESULTS Date Observation Value Provider Reference Range Interpretation Location 9 prothrombin time (patient) 11.9 s Link[facility] 9.0-11.5 High 9 international normalized ratio (INR) 1.1 [facility] Normal 9 basophils as percent of blood leukocytes 1.7 % [facility] Normal 9 eosinophils as percent of blood leukocytes 6.4 % [facility] Normal 9 monocyte count, blood 14.7 % [facility] Normal 9 lymphocyte count, blood 21.5 % [facility] Normal 9 neutrophils as percent of blood leukocytes 55.7 % [facility] Normal 9 basophils, absolute, manual 71 cells/mcL [facility] 0-200 Normal 9 eosinophils, absolute, manual 269 cells/mcL [facility] 15-500 Normal 9 monocytes, absolute, manual 617 cells/mcL [facility] 200-950 Normal 9 lymphocytes, absolute 903 CELLS/UL [facility] 850-3900 Normal 9 Absolute Neutrophil count 2339 cells/mcL [facility] 5862-5100 Normal 9 mean platelet volume 11.5 fL [facility] 7.5-12.5 Normal 9 platelet count 151 THOUSAND/ UL [facility] 140-400 Normal 9 red blood cell distribution width 14.7 % [facility] 11.0-15.0 Normal 9 mean corpuscular hemoglobin concentration, RBC 31.8 G/DL [facility] 32.0-36.0 Low 9 mean corpuscular hemoglobin, RBC 30.6 pg [facility] 27.0-33.0 Normal 9 mean corpuscular volume, RBC 96.3 fL [facility] 80.0-100.0 Normal 9 hematocrit, blood 38.7 % [facility] 38.5-50.0 Normal 9 hemoglobin electrophoresis, blood 12.3 [facility] 13.2-17.1 Low 9 erythrocyte (RBC) count 4.02 MILLION/U L [facility] 4.20-5.80 Low 9 leukocyte (white blood cells) count, blood 4.2 THOUSAND/ UL [facility] 3.8-10.8 Normal 9 calcium, serum 9.6 mg/dL [facility] 8.6-10.3 Normal 9 carbon dioxide, venous blood 29 mmol/L [facility] 20-32 Normal 9 chloride, serum 110 mmol/L [facility] 98-110 Normal 9 potassium, serum 4.6 mmol/L [facility] 3.5-5.3 Normal 9 sodium, serum 144 mmol/L [facility] 135-146 Normal 9 urea nitrogen/creatinine ratio, serum 34 (calc) [facility] 6-22 High 9 creatinine, serum 0.97 mg/dL [facility] 0.70-1.22 Normal 9 urea nitrogen, blood 33 mg/dL [facility] 7-25 High 9 blood glucose, random 79 mg/dL [facility] 65-99 Normal 9 magnesium, serum 2.2 mg/dL [facility] 1.5-2.5 Normal 2 B-12, serum 1171 pg/mL [facility] 200-1100 High 2 thyroid stimulating hormone, serum 8.04 u[IU]/mL [facility] 0.40-4.50 High 2 folate, serum 17.6 ng/mL [facility] Normal 2 ferritin, serum 126 ng/mL [facility] 24-380 Normal 2 basophils as percent of blood leukocytes 1.8 % [facility] Normal 2 eosinophils as percent of blood leukocytes 4.9 % [facility] Normal 2 monocyte count, blood 14.7 % [facility] Normal 2 lymphocyte count, blood 23.5 % [facility] Normal 2 neutrophils as percent of blood leukocytes 55.1 % [facility] Normal 2 basophils, absolute, manual 70 cells/mcL [facility] 0-200 Normal 2 eosinophils, absolute, manual 191 cells/mcL [facility] 15-500 Normal 2 monocytes, absolute, manual 573 cells/mcL [facility] 200-950 Normal 2 lymphocytes, absolute 917 CELLS/UL [facility] 850-3900 Normal 2 Absolute Neutrophil count 2149 cells/mcL [facility] 0794-3542 Normal 2 mean platelet volume 12.4 fL [facility] 7.5-12.5 Normal 2 platelet count 150 THOUSAND/ UL [facility] 140-400 Normal 2 red blood cell distribution width 15.5 % [facility] 11.0-15.0 High 2 mean corpuscular hemoglobin concentration, RBC 32.3 G/DL [facility] 32.0-36.0 Normal 2 mean corpuscular hemoglobin, RBC 30.7 pg [facility] 27.0-33.0 Normal 2 mean corpuscular volume, RBC 95.1 fL [facility] 80.0-100.0 Normal 2 hematocrit, blood 35.0 % [facility] 38.5-50.0 Low 2 hemoglobin electrophoresis, blood 11.3 [facility] 13.2-17.1 Low 2 erythrocyte (RBC) count 3.68 MILLION/U L [facility] 4.20-5.80 Low 2 leukocyte (white blood cells) count, blood 3.9 THOUSAND/ UL [facility] 3.8-10.8 Normal 2 NT-pro BNP 3186 LinkLogic <450 High 2 alanine aminotransferase (SGPT), serum 34 1/L [facility] 9-46 Normal 2 aspartate aminotransferase (SGOT), serum 31 1/L [facility] 10-35 Normal 2 alkaline phosphatase, serum 104 1/L [facility] 35-144 Normal 2 bilirubin, serum, total 0.8 mg/dL [facility] 0.2-1.2 Normal 2 albumin/globulin ratio, serum 1.8 (calc) [facility]ic 1.0-2.5 Normal 2 globulins, serum, total 2.4 G/DL (CALC) [facility]ic 1.9-3.7 Normal 2 albumin, serum 4.2 g/dL [facility]ic 3.6-5.1 Normal 2 protein, total, serum 6.6 g/dL [facility] 6.1-8.1 Normal 2 calcium, serum 9.3 mg/dL [facility] 8.6-10.3 Normal 2 carbon dioxide, venous blood 28 mmol/L [facility] 20-32 Normal 2 chloride, serum 110 mmol/L [facility] 98-110 Normal 2 potassium, serum 4.7 mmol/L [facility]ic 3.5-5.3 Normal 2 sodium, serum 143 mmol/L [facility] 135-146 Normal 2 urea nitrogen/creatinine ratio, serum 35 (calc) [facility]ic 6-22 High 2 creatinine, serum 0.88 mg/dL [facility] 0.70-1.22 Normal 2 urea nitrogen, blood 31 mg/dL [facility] 7-25 High 2 blood glucose, random 80 mg/dL [facility] 65-99 Normal 2 iron saturation percent, serum 21 % (CALC) [facility] 20-48 Normal 2 iron binding capacity, total 282 MCG/DL (CALC) [facility] 250-425 Normal 2 iron, serum 58 ug/dL [facility]ic 50-180 Normal HISTORY OF MEDICATION USE Medication Status Instructions Dates Provider Indications Com jose Eliquis 5 mg tablet active Give 5 mg via feeding tube every 12 hours 2 Vivi Tripathi sodium chloride 1,000 mg tablet,soluble active Give 1 tablet via feeding tube twice daily 3 Evan Castillo midodrine 10 mg tablet active Administer 1 tablet via tube three times daily before meals 3 Evan Castillo amiodarone 100 mg tablet active Take 1 Tablet (100 mg) by mouth daily. 3 Evan Castillo Jardiance 10 mg tablet active TAKE 1 TABLET BY MOUTH EVERY DAY 2 Dion Abraham MD levothyroxine 88 mcg tablet active Take 1 tablet by mouth once a day 2 Dion Abraham MD midodrine 10 mg tablet completed - 3 Evan Castillo amiodarone 100 mg tablet completed - 3 Evan Castillo Gemtesa 75 mg tablet active Dion Abraham MD Eliquis 5 mg tablet completed - 2 Vivi Tripathi Entresto 24-26 mg tablet completed TAKE 1 TABLET BY MOUTH TWICE A DAY 0 - 0 Dion Abraham MD trospium 20 mg tablet completed - 0 Dion Abraham MD tramadol 50 mg tablet completed - 0 Dion Abraham MD Flomax 0.4 mg capsule completed - 8 Dion Abraham MD buspirone 5 mg tablet active 1 tablet by mouth twice a day Sneha Richardson NP cyanocobalamin (vitamin B-12) 1,000 mcg capsule active Take 1 capsule by mouth once a day 6 Sneha Richardson NP rosuvastatin 10 mg tablet active Take 1 tablet by mouth once a day 6 Ely Bruce mirtazapine 15 mg tablet active 1 tablet by mouth once a day Sneha Richardson NP Xarelto 10 mg tablet completed 1 tablet by mouth once a day - 0 Dion Abraham MD venlafaxine 37.5 mg capsule,extended release 24hr completed - 0 Sneha Richardson NP levothyroxine 75 mcg tablet completed Take 1 tablet by mouth once a day - 2 Dion Abraham MD sildenafil 50 mg tablet completed TAKE ONE TABLET BY MOUTH ONCE DAILY 30 MINUTES TO 4 HOURS BEFORE SEXUAL ACTIVITY NEEDED - 0 Dion Abraham MD SOCIAL HISTORY Date Observation Value Provider personal history of marijuana use no Dion Abraham MD drug use no Dion Light alcohol use, average drinks per day 2 /d Dion Abraham MD alcohol use, type gin Dion ivy MD alcohol use yes Dion Serota Sharad Light smoking, year quit 1971 Dion miller MD number of years as a smoker 20 a Dion Abraham MD smoking history, total pack/day 1.5 ppd Dion Abraham MD cigarette use yes Dion Abraham MD smoking status Former smoker Dion coleman MD number of grandchildren Fredrick Casey SIEGEL Ne elima Nalluri DIRECTOR OF PRODUCT DEVELOPMENT personal history of marijuana use no Jaylene Nalluri [employer]ODUCT DEVELOP[employer] drug use no Jaylene Nalluri [employer]ODUCT [employer]ELOP[employer] alcohol use, average drinks per day 2 /d Jaylene Nalluri [employer]ODUCT [employer]ELOP[employer] alcohol use, type gin Jaylene Na lluri [employer] PRODUCT DEVELOPMENT alcohol use yes Jaylene Nalluri [employer]ODUCT [employer]ELOP[employer] smoking, year quit 1971 Jaylene N alluri [employer] OF PRODUCT DEVELOPMENT number of years as a smoker 20 a Jaylene Nalluri [employer]ODUCT DEVELOPMENT smoking history, total pack/day 1.5 ppd Jaylene Nalluri [employer]ODUCT DEVELOPMENT cigarette use yes Jaylene Nallur i [employer] OF [employer]ODUCT DEVELOPMENT smoking status Former smoker Jaylene Sterling uri DIRECTOR OF PRODUCT DEVELOPMENT personal history of marijuana use no Dion Abraham MD drug use no Dion Serota Sharad Light alcohol use, average drinks per day 2 /d Dion Abraham MD alcohol use, type gin Dion ivy MD alcohol use yes Dion Serota Sharad Light smoking, year quit 1971 Dion miller MD number of years as a smoker 20 a Dion Abraham MD smoking history, total pack/day 1.5 ppd Dion Abraham MD cigarette use yes Dion Abraham MD smoking status Former smoker Dion coleman MD personal history of marijuana use no Dion Serotjared SIEGEL drug use no Dion Serota Sharad Light alcohol use, average drinks per day 2 /d Dion Serotjared SIEGEL alcohol use, type gin Dion ivy MD alcohol use yes Dion Serota Sharad Light smoking, year quit 1971 Dion miller MD number of years as a smoker 20 a Dion Abraham MD smoking history, total pack/day 1.5 ppd Dion Abraham MD cigarette use yes Dion Abraham MD smoking status Former smoker Dion coleman MD quit smoking, stage quit Dion jaffe MD personal history of marijuana use no Dion Serotjared SIEGEL drug use no Dion Serota Sharad Light alcohol use, average drinks per day 2 /d Dion Abraham MD alcohol use, type gin Dion ivy MD alcohol use yes Dion Serota Sharad Light smoking, year quit 1971 Dion miller MD number of years as a smoker 20 a Dion Abraham MD smoking history, total pack/day 1.5 ppd Dion Abraham MD cigarette use yes Dion Abraham MD smoking status Former smoker Dion coleman MD personal history of marijuana use no Verah Bonareri [employer]ODUCT [employer]ELOPMENT drug use no Verah Bonareri [employer]ELOP[employer] alcohol use, average drinks per day 2 /d Verah Bonareri [employer]EL[employer] alcohol use, type gin Sneha Luis reri DIRECTOR [employer]ODUCT DEVELOPMENT alcohol use yes Verah Bonareri [employer]EL[employer] smoking, year quit 1971 Sneha Suresh areri [employer]ODUCT [employer]ELOPMENT number of years as a smoker 20 a Verah Bonareri [employer]ODUCT [employer]ELOP[employer] smoking history, total pack/day 1.5 ppd Sneha Asherri [employer]ODUCT [employer]ELOPMENT cigarette use yes Sneha Asherri [employer]ELOP[employer] smoking status Former smoker Sneha Asher ri [employer]ELOP[employer] drug use no Tara Ventimig juarez [employer] alcohol use, type gin Tara Boyd timiglia [facility] alcohol use, average drinks per day 2 /d Tara Ventimiglia [facility] alcohol use yes Tara Ventimig juarez [facility] number of years as a smoker 20 a Delilah Udayer smoking history, total pack/day 1.5 ppd Delilah Alonzoitzeler smoking, year quit 1971 Delilah Queta doll cigarette use yes Delilah Maryellen elder smoking status Former smoker Delilah Alonzobooker [facility] FUNCTIONAL STATUS Date Observation Value Provider HRA, CV Assess/Plan, Angina (inactive) Management Plan continue current therapy Dion Abraham MD HRA, CV Assess/Plan, Angina (inactive) Management Plan continue current therapy Jaylene Rosenthal NP HRA, CV Assess/Plan, Angina (inactive) Management Plan continue current therapy Dion Abraham MD HRA, CV Assess/Plan, Angina (inactive) Management Plan continue current therapy Dion Abraham MD INSURANCE PROVIDERS Payer name Policy type / Coverage type [employer] party ID [facility] [id number] ADVANCE DIRECTIVES Name Date DISCUSSED - NO DECISION MADE TREATMENT PLAN Date Name Performer [id number],C,add replaceme nt therapy Tara Ventimiglia [facility] [id number],C,Will add magen min B12 Tara Ventimiglia [facility] [id number],C,R eported history of MVP will do f/u echo Tara Ventimiglia [facility] [id number],C,A t 44 mm per echo 2 years ago at [place]. Will do f/u echo for further evalution. continue BP control and statin therapy Tara Montesinos [facility] [id number],C,F ound on recent imaging at [facility]. Patient reports at 3.3cm. We will obtain report. If stable will plan for follow up imaging in a year. Patient BP well controlled at visit today. Will add statin as LDL 110. Tara Montesinos [facility] :pro 3200 ef 52 by echo Dion jaffe MD :33 Dion Abraham MD :avr ok mild mr and tr Dion Abraham MD Cardiology: n m psa pre pt Dion Abraham MD Cardiology:not seen in Dion Abraham MD Cardiology:after heart sugrey Clay justine Abraham MD Cardiology:3.4 Dion Abraham MD Cardiology:por 1900 new ef 52 , ef 40 by cath Dion Abraham MD Cardiology Dion Abraham MD Cardiology: 7 5% dx left alone pos pet score 42823 Dion Abraham MD Cardiology:avr at ti me root repain m ild tr and mod mr and mild ai, pap Dion Abraham MD Cardiology: n o gall stone n eg aaa neg egfr, neg a1c and uacr Dion Abraham MD Cardiology: r epaided 03/2024 fu echo neg Dion Abraham MD Cardiology: a dd replacement therapy Jaylene Nalluri [employer]ODUCT [employer]ELOPMENT Cardiology: H is updated medication list for this problem includes: Rosuvastatin 10 Mg Tablet (Rosuvastatin) ..... Take 1 tablet by mouth once a day Jaylene Nalluri [employer]ODUCT [employer]ELOPMENT Cardiology: p ro 328, ef 40 by cath Jaylenelucila Zimmermanluri DIRECTOR OF PRODUCT DEVELOPMENT Cardiology: T he patient is using CPAP on a regular basis. The patient has been benefiting from therapy and should continue use. Jaylene Nalluri DIRECT[employer] OF PRODUCT DEVELOPMENT Cardiology: s everre pvd dital righ leg B TK Jaylene Nalluri [employer]ODUCT DEVELOPMENT Cardiology:Stable with no angina Jaylene Nalluri DIRECTOR OF PRODUCT DEVELOPMENT Cardiology: 5 [address]Munfakh Jaylene Zimmermanluri TAYLOR Cardiology: 3 .5 by 4.5 left iliac, neg aaa s chedule for iliac covered stent r isks, and options and complications d/w patient and he is agreeable to proceed Jaylene Rosenthal NP Cardiology Dion Abraham MD Cardiology Dion Abraham [...] 5% dx, score 2400, posst pet Dion Abarham MD Cardiology: s everre pvd dital righ leg Dion Abraham MD Cardiology: 5 .4 n abils watching Dion Abraham MD :severre pvd dital righ leg Ana Abraham MD :pro 328, ef 40 by cath Dion jaffe MD :75% dx, score 2400, posst pet H julius Abraham MD Cardiology;fri lhc with root a [...] :nm psa pre pt Dion Abraham MD Cardiology;fri lhc with root aand aaa gram : 3 .5 by 4.5 left iliac, neg aaa Dion Abraham MD Cardiology;frist lhc with root aand aaa gram :no gall stone n eg aaa m eg streeed 2020 per pt n eg egfr, neg a1c and uacr Dion Abraham MD Cardiology;fri lhc with root a and aaa gram Dion Abraham MD Cardiology;fri lhc with root aand aaa gram : 5 .4 Dion Abraham MD Cardiology;[facility] lhc with root aand aaa gram : a ve 56 low 36 t acky braday n svt and svt Dion Abraham MD Cardiology;fri lhc with root aand aaa gram : 5 .4 Dion Serotjared SIEGEL Cardiology;[facility] lhc with root aand aaa gram : s core 2400 pos pet Dion Jarad SIEGLE :score 2800 pos pet Dion Serot jared SIEGEL :3.5 by 4.5 left iliac Dion miller MD :5.4 Dion Abraham MD :4.8 Dion Serotjared SIEGEL :2800 Dion Abraham MD Cardiology: T he patient is using CPAP on a regular basis. The patient has been benefiting from therapy and should continue use. Dion Abraham MD Cardiology:ave 56 lo w 36 t acky braday n svt and svt Dion Abraham MD Cardiology: m ild tr and mod mr and mild ai, pap 21 Dion Abraham MD Cardiology:neg aaa m eg streeed 2020 per pt n eg egfr, neg a1c and uacr Dion Abraham MD Cardiology: e f 65 pro 328 Dion Abraham MD Cardiology:4.7 Dion Abraham MD Cardiology Dino Abraham MD Cardiology Dion Abraham MD Cardiology: [...] Sneha Richardson NP Cardiology:add replacement thera py Taramaryann Crandallmiglia [facility] Cardiology:Will add vitamin B12 Tara Karleymiglia [facility] Cardiology:Reported history of M DIRECTOR HEDIS will do f/u echo Tara Montesinos [facility] Cardiology:At 44 mm per echo 2 years ago at [place]. Will do f/u echo for further evalution. continue BP control and statin therapy Tara Montesinos [facility] Cardiology:Found on recent imaging at [facility]. Patient reports at 3.3cm. We will obtain report. If stable will plan for follow up imaging in a year. Patient BP well controlled at visit today. Will add statin as LDL 110. Tara Montesinos [facility] Date Name Cardioversion CBC (INCLUDES DIFF/P LT) MAGNESIUM BASIC METABOLIC PANE L W/EGFR PROTHROMBIN TIME WIT H INR COMPREHENSIVE METABO LIC PANEL, W/EGFR Complete Echo CXR- PA/Lat EKG FOLATE, SERUM TSH, 3RD GENERATION VITAMIN B12 IRON AND TOTAL IRON BINDING CAPACITY FERRITIN CBC (INCLUDES DIFF/P LT) PROBNP, N TERMINAL PROTHROMBIN TIME WIT H INR LIPID PANEL [...] tatus Complex e/m visit ad d on Fredrickainsley Peña MD completed Complex e/m visit ad d on Dion Abraham MD completed Complex e/m visit ad d on Dion Abraham MD completed CT- Coronary CA score Dion Abraham MD completed Complex e/m visit ad d on Dion Abraham MD [10/16/2023 - mpiric] NPR PER MATTHEW REF#: [id number] completed EKG Dion Abraham MD complete d EKG Dion Abraham MD complete d
--- OUTSIDE RECORDS SUMMARY | 2024-07-14 14:23 | XMS_ITS | Clinical Summary ---
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
--- OUTSIDE RECORDS SUMMARY | 2024-07-14 14:23 | XMS_ITS | Clinical Summary ---
Author Organization [facility] Address [address] [place] [address] Care Team Providers Care Encoding Clerk Name Role Phone Martinez Pace MD Primary Care Provider Dion Abraham MD Unavailable [phone] Basil Adhikari MD Unavailable Allergies No known active allergies Medications PreviDent [...] 1 tablet (88 mcg total) by mouth picker and packer before breakfast 30 tablet 5 Active rosuvastatin [...] within 12 hours or as directed by . 30 patch 5 Active sodium chloride 0.9 % solution Administer per tube 30 mL 6 (six) times a day 1000 mL 1 5 Active Active Problems Problem Noted Date Diagnosed Date Abnormal vital signs 05/13/2024 Assessment & Plan (05/13/2024 2:10 PM RESPIRATORY CARE PROGRAM DIRECTOR): - Two charted HR in the 30s on 05/12 around 0445 AM. No symptoms reported at this time. Patient monitored in PM on 05/12 and 05/13 without observed HR in 30s. Patient reports his heart rate is being monitored by his pocket assembler Dr. Abraham. Patient had a recent TTE in 03/2024 with mild left ventricular systolic dysfunction, global kypokinesis, EF 50-55%, normal left ventricular cavity size, mild to moderate concentric left ventricular hypertrophy, normal aortic valve appearance and function, normal caliber aortic root. Back pain 05/12/2024 Assessment & Plan (05/12/2024 2:21 PM RESPIRATORY CARE PROGRAM DIRECTOR): - OSH CT: Multilevel degenerative changes are noted in the spine, including a wedge deformity of the L2 vertebral body. - Lidoderm patch ordered Hematoma of leg, left, initial encounter 025 Assessment & Plan (05/13/2024 1:56 PM RESPIRATORY CARE PROGRAM DIRECTOR): - CTA overread w/ large L hematoma, [...] 05/11/2024 Assessment & Plan (05/12/2024 11:34 AM RESPIRATORY CARE PROGRAM DIRECTOR): - Patient reports on Vibegron for penile pain and reports previously tested for UTI which was negative - UA (05/10): neg nitrite, neg LE - will not reflex - G/C, trich urine pending- has not been sent as of 05/12 - Continue oxybutynin while inpatient Hyponatremia 05/11/2024 Assessment & Plan (05/13/2024 1:55 PM RESPIRATORY CARE PROGRAM DIRECTOR): - Na 124 on admission - Previous [...] 05/11/2024 Assessment & Plan (05/13/2024 1:57 PM RESPIRATORY CARE PROGRAM DIRECTOR): - 05/11: new admit, monitor Hgb and [...] 05/11/2024 Assessment & Plan (05/13/2024 1:59 PM RESPIRATORY CARE PROGRAM DIRECTOR): - Hgb trend (05/10): 9.3- 8.7 - Hgb trend (05/11): 8.2- 8.2- 7.8- - Hgb trend (05/12): 7.7- 7.9 - Hgb (05/13): 7.8 - CBC was monitored, no active signs or symptoms of bleeding, hemodynamically unsupported at discharge Fall, initial encounter 05/10/2024 Assessment & Plan (05/11/2024 2:30 PM RESPIRATORY CARE PROGRAM DIRECTOR): - mechanical fall - hypotensive at OSH, responsive to fluid resuscitation - CT head/spine overread w/o acute intracranial process or fractures, hematoma present correlating w/ exam - Cleared C-spine in ED Hyperkalemia 04/08/2024 Dysphagia 04/07/2024 Assessment & Plan (05/13/2024 3:35 PM RESPIRATORY CARE PROGRAM DIRECTOR): - s/p G-tube - extrusion die repair manager consulted - Tube feeds via PEG, meds via PEG - patient and family support report recent advancement to nectar thick liquids (mostly for comfort) - ENVIRONMENTAL LEAD consult - 05/12: appropriate for MBS, pending - 05/13: MBS to determine if diet can be advanced prior to discharge -- recommend NPO with ice chips - Discharge tube feeds: Isosource 220 ml via g-tube five times daily + 30 ml saline flush via PEG 6 times daily Hypotension 04/06/2024 Assessment & Plan (05/13/2024 1:55 PM RESPIRATORY CARE PROGRAM DIRECTOR): - Continue home midodrine - 05/11: hypotensive [...] 02/11/2024 Assessment & Plan (05/11/2024 2:31 PM RESPIRATORY CARE PROGRAM DIRECTOR): #Hx ascending aortic aneurysm sp aortic root replacement (03/18/24) #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 Numbness and tingling of upper extremity 024 Encounter for colonoscopy du e to history of adenomatous colonic polyps 11/03/2023 Cerebral infarction, unspecified 09/10/2023 Assessment & Plan (05/12/2024 11:34 AM RESPIRATORY CARE PROGRAM DIRECTOR): - Neurology note 04/08/24 recommends transitioning to [...] (11/24/2018): Added automatically from request for surgery [id number] Adenomatous polyp of cecum 06/18/2018 Overview (06/18/2018): Added automatically from request for surgery [id number] custodial current use of anticoagulant therapy 0 11/07/2016 Basal cell carcinoma (BCC) of antihelix of ear 0 04/16/2016 Ascending aortic aneurysm 09/05/2015 Deep vein thrombosis (DVT) 06/22/2015 Assessment & Plan (05/11/2024 2:08 PM RESPIRATORY CARE PROGRAM DIRECTOR): - On Eliquis - Bilateral foot swelling - BLE duplex (05/11): 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) Pulmonary embolism 06/22/2015 Thyroid disease Assessment & Plan (05/11/2024 1:48 PM RESPIRATORY CARE PROGRAM DIRECTOR): - Continue levothyroxine 88 mcg daily Neuropathy Depression Overview (07/18/2017): Depression GARCÍA on CPAP Assessment & Plan (05/11/2024 1:48 PM RESPIRATORY CARE PROGRAM DIRECTOR): - Patient reports not wearing at this time OA (osteoarthritis) History of pulmonary embolus (PE) Assessment & Plan (05/12/2024 11:30 AM RESPIRATORY CARE PROGRAM DIRECTOR): #Afib #Embolic stroke, history of - Remote history of PE, recent embolic strokes - Recently switched from Xarelto to Eliquis - 05/12: resume Eliquis, monitor Hgb Encounters Date Type Department Care Team Description 07/02/2024 Telephone [facility] - [facility] [address] [place] [address] [place] [phone] Carmela Arrieta Au.D. 07/02/2024 Telephone [facility] - [facility] [address] [facility] [address] [address] Carmela Arrieta Au.D. 06/23/2024 Telephone [facility] [address] [place] [address] [address] [address] Nasra Ruff, B.AVictor Manuel 06/23/2024 Orders Only [facility] Surgery [address] [facility] [address] [place] [phone] Devaughn Clement MD Aneurysm of ascending aorta without rupture (Primary Dx) 06/01/2024 Telephone [facility] [address] [facility] [address] [place] [phone] Scott Osei EP-C CRMariam Follow Up 05/26/2024 Results Follow-Up [facility] [address] [facility] [address] [place] [address] Klaus Humphrey MD PhD Atrial fibrillation, unspecified type (HCC) (Primary Dx) 05/13/2024 1:30 PM RESPIRATORY CARE PROGRAM DIRECTOR - 05/13/2024 11:59 PM RESPIRATORY CARE PROGRAM DIRECTOR Hospital Encounter [facility] Radiology [address] [place] [address] Discharge Disposition: Discharge to home or self care 05/11/2024 11:55 AM RESPIRATORY CARE PROGRAM DIRECTOR Ancillary Procedure [facility] IP [address] [facility] [address] [place] [address] 05/10/2024 2:37 PM RESPIRATORY CARE PROGRAM DIRECTOR - 05/13/2024 4:35 PM RESPIRATORY CARE PROGRAM DIRECTOR Hospital Encounter [address] [address] Alejandro Soliz III, MD Lacy, MD Sundar Gilliland, Hernandez Hsieh MD Fall, initial encounter (Primary Dx); Head injury, initial encounter; Hematoma of left thigh; Dysphagia, unspecified type Discharge Disposition: Discharge to home, home health skilled care 04/16/2024 9:04 AM RESPIRATORY CARE PROGRAM DIRECTOR Anesthesia Event [facility] [address] [place] [phone] Sara Schwartz MD Shelley, Joshua Michael, QUINTEN 04/16/2024 9:00 AM RESPIRATORY CARE PROGRAM DIRECTOR - 04/16/2024 9:45 AM RESPIRATORY CARE PROGRAM DIRECTOR Surgery [facility] [address] [place] [phone] Roderick Bedolla MD PERCUTANEOUS ENDOSCOPIC GASTROSTOMY 04/03/2024 9:45 AM RESPIRATORY CARE PROGRAM DIRECTOR - 04/20/2024 3:00 PM [facility] [address] [phone] Pedro Senior MD Martin, Robert S., MD Barks, Marsisa Montenegro, iVshnu Del Castillo MD Hammes, MD Gallito Alvarez, [...] (HCC) [I82.403]; Hyperkalemia [E87.5]; Paroxysmal atrial fibrillation (HCC) Discharge Disposition: Discharge to an IP Rehab facility from Last 3 Months Immunizations Immunization Administration Dates Next Due Influenza, Unspecified 01/16/2024 Moderna SARS-CoV-2 Monovalen t Vaccination (12+ YRS) 05/30/2020,04/18/2020 Tdap 05/10/2024(Deferred: Other - pt states received at [facility]) Surgical History Surgery Date Site/Laterality Comments THYROIDECTOMY [...] Hx Other Medical shoulder surger y; Comments: JEP 12/03/2013 - Depression Depression Hx Other Medical right wrist gabi mike; Comments: JEP 12/03/2013 - GERD (gastroesophageal reflux disease) Thyroid disease Neuropathy GARCÍA on CPAP OA (osteoarthritis) History of pulmonary embolus (PE) Aortic aneurysm ascending BPH (benign prostatic hyperplasia) Pulmonary emboli (HCC) 2016 Chronic constipation Colon polyp Hypothyroidism Venous thromboembolism Glaucoma Bilateral iliac artery aneurysm Dysphagia Family History Medical History Relation Name Comments Heart attack Brother No Known Problems Father in pl ane crash in 194 Coronary artery disease Mother Rafal nary artery [...] oz pur e alcohol) 2x a day [employer] Answer Date Recorded In the past 12 months has [employer], gas, oil, or water [employer] threatened to shut off services in your [...] week 05/12/2024 How often do you attend [facility] or druze services? Never 05/12/2024 Do you belong to any clubs o r organizations such as orthodoxy groups, unions, fraternal or athletic groups, or [...] any time in the past 12 m [place], were you homeless or living in a correction (including now)? No 05/12/2024 Personal Safety Answer Date Recorded Have you ever been in or are you currently in a harmful physical or emotional relationship or is someone making you feel afraid or unsafe? Denies 05/10/2024 Sex and Gender Information Value Date Recorded Sex Assigned at Not on file Legal Sex Male 12:56 AM RESPIRATORY CARE PROGRAM DIRECTOR Gender Identity Not on file Sexual Orientation Straight 10/21/2019 9: 52 AM CDT Obstetrics History Last Filed Vital Signs Vital Sign Reading Time Taken Comments Blood Pressure 106/57 05/13/2024 3:07 PM RESPIRATORY CARE PROGRAM DIRECTOR Pulse 56 05/13/2024 3:07 PM RESPIRATORY CARE PROGRAM DIRECTOR Temperature 36.8 C (98.2 F) 05/13/2024 3:07 PM RESPIRATORY CARE PROGRAM DIRECTOR Respiratory Rate 16 05/13/2024 3:07 PM RESPIRATORY CARE PROGRAM DIRECTOR Oxygen Saturation 100% 05/13/2024 3:07 PM RESPIRATORY CARE PROGRAM DIRECTOR Inhaled Oxygen Concentration - - Weight 63.4 kg (139 lb 12.8 oz) 05/11/2024 2:56 AM RESPIRATORY CARE PROGRAM DIRECTOR Height 172.7 cm (5' 8 ) 05/11/2024 2:56 AM RESPIRATORY CARE PROGRAM DIRECTOR Body Mass Index 21.26 05/11/2024 2:56 AM RESPIRATORY CARE PROGRAM DIRECTOR Plan of Treatment Health Maintenance Due Date Last Done Comments Depression Screening 1940 Hepatitis B Screening 07/30/1957 Pneumococcal vaccine 65+ (1 of 1 - PCV) 07/30/1989 Zoster Vaccine (1 of 2) 07/30/1989 Well Visit 65+ 07/30/2004 DTaP/Tdap/Td Vaccine (2 - Td or Tdap) 03/31/2022 Covid-19 Vaccine (3 - season) 2023, 04/18/2020 Fall Risk Assessment 05/13/2025 05/13/2024, 01/15/20 Influenza Vaccine Completed 01/16/2024, , 12/14/2012 Medical Devices Implanted Type Area Casting Director Device Identifier Shelf Expiration Date Model / Serial / Lot Leyva Lifesciences Konect Resilia Aortic Valved Conduit 27mm [id number] - [id number] - [id number] Implanted:Qty: 1 on 03/18/2024 by Basil Adhikari MD at [facility] Prosthetic Valve N/A: Aortic Valve Leyva [employer]iences 01/06/2027 [id number] / [id number] / Teleflex [employer] Inc 18f Manta Vascular Closure Device 2114 - S0 - [id number] Implanted:Qty: 1 on 03/22/2024 by Basil Adhikari MD at [facility] Vascular Closure Device Teleflex [employer] Inc 01/06/20255 / 0 / [id number] Cement Bone Cmw 2 20 Gm Fast Set Sterile - [id number] Implanted:Qty: 1 on 2017 by Brennon Davis MD at [facility] Right: Shoulder Depuy Orthopaedics Inc 10/15/2019 [id number] 0 / / [id number] Component Glenoid Comprehensive Regenerex Titanium Clay Porous Shoulder Modular Hybrid Post - [id number] Implanted:Qty: 1 on 2017 by Brennon Davis MD at [facility] Right: Shoulder Kavita [employer] Inc [id number] 01/21/2027 PT-1139 50 / / [id number] Component Glenoid Comprehensive Hybrid Large H4 Mm Shoulder Base Modular - [id number] Implanted:Qty: 1 on 2017 by Brennon Davis MD at [facility] Right: Shoulder [employer]avita [employer] [id number] 03/23/2022 [id number] / / [id number] Stem Humeral Comprehensive Porous Mini L83 Mm Od15 Mm Shoulder Reverse System - [id number] Implanted:Qty: 1 on 2017 by Brennon Davis MD at [facility] Right: Shoulder [employer]av[employer] Inc [id number] 04/10/2027 [id number] / / [id number] Head Humeral Bio-Modular [place] 4 Mm Offset H22 Mm Od54 Mm Shoulder Sterile - [id number] Implanted:Qty: 1 on 2017 by Brennon Davis MD at [facility] Right: Shoulder [employer]avita [employer] Inc 08/16/2019 [id number] / / [id number] Cryolife Inc Graft Biological Cardiovascular Photofix 6x8cm Acellular Dermis Pfp 6x8 - [id number] Implanted:Qty: 1 on 03/18/2024 by Basil Adhikari MD at [facility] N/A: Aorta Cryolife Inc 10/24/2025 PFP 6X8 / / [id number] Arthrex Inc Device Closure Tigertape Sternal Cerclage Blunt Needle Ar-7289t - [id number] Implanted:Qty: 1 on 03/18/2024 by Basil Adhikari MD at [facility] N/A: Sternum Arthrex Inc 12/14/2028 AR-7289 T / / [id number] Arthrex Inc Device Closure Tigertape Sternal Cerclage Blunt Needle Ar-7289t - [id number] Implanted:Qty: 1 on 03/18/2024 by Basil Adhikari MD at [facility] N/A: Sternum Arthrex Inc 12/14/2028 AR-7289 T / / [id number] Estrada Vascular Plug Occluder Cvasc Embl Self Expanding Amplatzer [id number] Nitinol 9-Avp2-014 - S0 - [id number] Implanted:Qty: 1 on 03/22/2024 by Basil Adhikari MD at [facility] Left: Internal Iliac (Hypogastr ic) Artery Estrada Vascular [id number] 05/14/2025 9-AVP2- 014 / 0 / [id number] Wl [employer] Inc Excluder 18mm 14.5-16.5mm 11.5cm Stent Abrasion Resistant [id number] - [id number] - [id number] Implanted:Qty: 1 on 03/22/2024 by Basil Adhikari MD at [facility] Left: External Iliac Artery [employer] Inc [id number] 11/17/2026 [id number] / [id number] / W[employer] Stent Graft Thoracic Conformable Tag [id number] - S0 - [id number] Implanted:Qty: 1 on 03/22/2024 by Basil Adhikari MD at [facility] Left: External Iliac Artery [employer] [id number] 08/14/2026 [id number] / 0 / Amplatzer Instructional Design Specialist Lisa Amplatzer 14mm 100cm 8mm 1 Layer Wire Mesh 1 Lobe Design Optimal 9-Plug-014 - S0 - [id number] Implanted:Qty: 1 on 03/22/2024 by Baisl Adhikari MD at [facility] Left: Internal Iliac (Hypogastr ic) Artery Amplatzer Instructional Design Specialist Lisa 03/16/2028 9-PLUG- 014 / 0 / [id number] Procedures Procedure Name Priority Date/Time Associated Diagnosis Comments FL MODIFIED BARIUM SWALLOW W VIDEO IP Routine 05/13/2024 2:03 PM RESPIRATORY CARE PROGRAM DIRECTOR ENVIRONMENTAL LEAD EVALUATE AND TREAT VIDEOFLUOROSCOPIC SWALLOW STUDY Routine 05/13/2024 1:34 PM RESPIRATORY CARE PROGRAM DIRECTOR EGFR Routine 05/12/2024 9:04 PM RESPIRATORY CARE PROGRAM DIRECTOR DIFFERENTIAL AUTO Routine 05/12/2024 9:0 4 PM RESPIRATORY CARE PROGRAM DIRECTOR BASIC METABOLIC PANEL Routine 05/12/2024 9:04 PM RESPIRATORY CARE PROGRAM DIRECTOR CBC WITH AUTO DIFFERENTIAL Routine 05/12/2024 9:04 PM RESPIRATORY CARE PROGRAM DIRECTOR EGFR Routine 05/12/2024 7:40 AM RESPIRATORY CARE PROGRAM DIRECTOR DIFFERENTIAL AUTO Timed 05/12/2024 7:4 0 AM RESPIRATORY CARE PROGRAM DIRECTOR BASIC METABOLIC PANEL Routine 05/12/2024 7:40 AM RESPIRATORY CARE PROGRAM DIRECTOR CBC WITH AUTO DIFFERENTIAL Timed 05/12/2024 7:40 AM RESPIRATORY CARE PROGRAM DIRECTOR DIFFERENTIAL AUTO Timed 05/12/2024 1:4 1 AM RESPIRATORY CARE PROGRAM DIRECTOR CBC WITH AUTO DIFFERENTIAL Timed 05/12/2024 1:41 AM RESPIRATORY CARE PROGRAM DIRECTOR AMPHETAMINE, URINE, CONFIRMATION Routine 05/11/2024 3:05 PM RESPIRATORY CARE PROGRAM DIRECTOR EGFR STAT 05/11/2024 3:05 PM RESPIRATORY CARE PROGRAM DIRECTOR BASIC METABOLIC PANEL STAT 05/11/2024 3:05 PM RESPIRATORY CARE PROGRAM DIRECTOR DRUGS OF ABUSE SCREEN, URINE WITH REFLEX CONFIRMATION Routine 05/11/2024 3:05 PM RESPIRATORY CARE PROGRAM DIRECTOR US VEIN DUPLEX LOWER EXTREMITY BILATERAL COMPLETE IP Routine 05/11/2024 12:49 PM RESPIRATORY CARE PROGRAM DIRECTOR DIFFERENTIAL AUTO Timed 05/11/2024 10:30 AM RESPIRATORY CARE PROGRAM DIRECTOR CBC WITH AUTO DIFFERENTIAL Timed 05/11/2024 10:30 AM RESPIRATORY CARE PROGRAM DIRECTOR EGFR Routine 05/11/2024 4:55 AM RESPIRATORY CARE PROGRAM DIRECTOR DIFFERENTIAL AUTO Timed 05/11/2024 4:5 5 AM RESPIRATORY CARE PROGRAM DIRECTOR CBC WITH AUTO DIFFERENTIAL Timed 05/11/2024 4:55 AM RESPIRATORY CARE PROGRAM DIRECTOR COMPREHENSIVE METABOLIC PANEL Routine 05/11/2024 4:55 AM RESPIRATORY CARE PROGRAM DIRECTOR DIFFERENTIAL AUTO Routine 05/11/2024 1:3 2 AM RESPIRATORY CARE PROGRAM DIRECTOR CBC WITH AUTO DIFFERENTIAL Routine 05/11/2024 1:32 AM RESPIRATORY CARE PROGRAM DIRECTOR CBC WITHOUT DIFFERENTIAL STAT 025 8:22 PM RESPIRATORY CARE PROGRAM DIRECTOR CT BODY OUTSIDE CONSULT Routine 05/10/19 7:00 PM RESPIRATORY CARE PROGRAM DIRECTOR NEURO CT OUTSIDE CONSULT Routine 025 6:57 PM RESPIRATORY CARE PROGRAM DIRECTOR NEURO CT OUTSIDE CONSULT Routine 025 6:53 PM RESPIRATORY CARE PROGRAM DIRECTOR CT BODY OUTSIDE CONSULT Routine 05/10/19 6:48 PM RESPIRATORY CARE PROGRAM DIRECTOR CT BODY OUTSIDE CONSULT Routine 05/10/19 6:47 PM RESPIRATORY CARE PROGRAM DIRECTOR URINALYSIS AND REFLEX TO MICROSCOPIC AND CULTURE STAT 05/10/2024 4:53 PM RESPIRATORY CARE PROGRAM DIRECTOR B CHECK SAMPLE STAT 05/10/2024 3:18 PM RESPIRATORY CARE PROGRAM DIRECTOR [place] CRITICAL CARE ILL/INJURED PATIENT INIT 30-74 MIN Routine 05/10/2024 3:13 PM RESPIRATORY CARE PROGRAM DIRECTOR POC BLOOD GAS AND CHEMISTRIES, VENOUS Routine 05/10/2024 2:50 PM RESPIRATORY CARE PROGRAM DIRECTOR THROMBOELASTOMETRY PANEL - EXTRINSIC Routine 05/10/2024 2:47 PM RESPIRATORY CARE PROGRAM DIRECTOR THROMBOELASTOMETRY PANEL - HEPARIN Routine 05/10/2024 2:47 PM RESPIRATORY CARE PROGRAM DIRECTOR THROMBOELASTOMETRY PANEL - INTRINSIC Routine 05/10/2024 2:47 PM RESPIRATORY CARE PROGRAM DIRECTOR THROMBOELASTOMETRY PANEL - FIBRINOGEN Routine 05/10/2024 2:47 PM RESPIRATORY CARE PROGRAM DIRECTOR COMPREHENSIVE METABOLIC PANEL Routine 05/10/2024 2:47 PM RESPIRATORY CARE PROGRAM DIRECTOR EGFR Routine 05/10/2024 2:47 PM RESPIRATORY CARE PROGRAM DIRECTOR DIFFERENTIAL AUTO Routine 05/10/2024 2:4 7 PM RESPIRATORY CARE PROGRAM DIRECTOR THROMBOELASTOMETRY PANEL Routine 025 2:47 PM RESPIRATORY CARE PROGRAM DIRECTOR PROTIME-INR Routine 05/10/2024 2:47 PM RESPIRATORY CARE PROGRAM DIRECTOR APTT Routine 05/10/2024 2:47 PM RESPIRATORY CARE PROGRAM DIRECTOR ETHANOL Routine 05/10/2024 2:47 PM RESPIRATORY CARE PROGRAM DIRECTOR CBC WITH AUTO DIFFERENTIAL Routine 05/10/2024 2:47 PM RESPIRATORY CARE PROGRAM DIRECTOR TYPE AND SCREEN Timed 05/10/2024 2:47 PM RESPIRATORY CARE PROGRAM DIRECTOR MCT - MOBILE CARDIAC TELEMETRY EVENT MONITOR Routine 04/20/2024 2:53 PM RESPIRATORY CARE PROGRAM DIRECTOR Paroxysmal atrial fibrillation (HCC) EGFR Routine 04/20/2024 12:20 AM RESPIRATORY CARE PROGRAM DIRECTOR MAGNESIUM Routine 04/20/2024 12:20 AM RESPIRATORY CARE PROGRAM DIRECTOR RENAL FUNCTION PANEL Routine 04/20/2024 12:20 AM RESPIRATORY CARE PROGRAM DIRECTOR EGFR Routine 04/19/2024 12:41 AM RESPIRATORY CARE PROGRAM DIRECTOR MAGNESIUM Routine 04/19/2024 12:41 AM RESPIRATORY CARE PROGRAM DIRECTOR RENAL FUNCTION PANEL Routine 04/19/2024 12:41 AM RESPIRATORY CARE PROGRAM DIRECTOR ECG 12-LEAD Routine 04/18/2024 10:45 AM RESPIRATORY CARE PROGRAM DIRECTOR ECG 12-LEAD STAT 04/18/2024 7:41 AM RESPIRATORY CARE PROGRAM DIRECTOR ECG 12-LEAD STAT 04/18/2024 3:01 AM RESPIRATORY CARE PROGRAM DIRECTOR EGFR Routine 04/18/2024 12:24 AM RESPIRATORY CARE PROGRAM DIRECTOR MAGNESIUM Routine 04/18/2024 12:24 AM RESPIRATORY CARE PROGRAM DIRECTOR RENAL FUNCTION PANEL Routine 04/18/2024 12:24 AM RESPIRATORY CARE PROGRAM DIRECTOR PERCUTANEOUS ENDOSCOPIC GASTROSTOMY 04/16/2024 9:04 AM RESPIRATORY CARE PROGRAM DIRECTOR Dysphagia, unspecified type EGD 04/16/2024 7:56 AM RESPIRATORY CARE PROGRAM DIRECTOR EGFR Routine 04/15/2024 12:25 AM RESPIRATORY CARE PROGRAM DIRECTOR PROTIME-INR Routine 04/15/2024 12:25 AM RESPIRATORY CARE PROGRAM DIRECTOR RENAL FUNCTION PANEL Routine 04/15/2024 12:25 AM RESPIRATORY CARE PROGRAM DIRECTOR from Last 3 Months Results * FL Modified Barium Swallow W Video (05/13/2024 2:03 PM RESPIRATORY CARE PROGRAM DIRECTOR) Anatomical Region Laterality Modality Head and Neck N/A Computed Radiogr aphy 05/13/2024 2:47 PM RESPIRATORY CARE PROGRAM DIRECTOR Impressions 05/13/2024 2:50 PM RESPIRATORY CARE PROGRAM DIRECTOR The swallowing mechanism is abnormal; see above [...] it. Electronically signed by: Artemio Kruger M.D. Narrative 05/13/2024 2:50 PM RESPIRATORY CARE PROGRAM DIRECTOR EXAMINATION: MODIFIED BARIUM SWALLOW HISTORY: Dysphagia. TECHNIQUE: [...] it. Electronically signed by: Artemio Kruger M.D. us Doris Turcios NP IMG FLUOROSCOPY PROCEDURE S Final Result * ENVIRONMENTAL LEAD Evaluate and Treat (VFSS) (05/13/2024 1:34 PM RESPIRATORY CARE PROGRAM DIRECTOR) Narrative Radha Grossman, LEONARDA - 05/13/2024 1:34 PM RESPIRATORY CARE PROGRAM DIRECTOR Radha Grossman, ENVIRONMENTAL LEAD 05/13/2024 4:16 PM Speech-Language Pathology: Videofluoroscopic Study of Swallow (VFSS/MBS) HPI/PMH *Admitted 05/10 HPI/PMH:Pt is an 83 y/o M with hx of ascending aortic aneurysm s/p biologic aortic root replacement (03/18/24), L common iliac aneurysm s/p endovascular repair (03/22/24), Afib (on eliquis), prior DVT/PE, and GARCÍA on CPAP. He was recently admitted at [facility] 04/03-04/20 for FTT and dysphagia, [...] L thigh. ST hx 04/06/24-04/13/24 Sw tx ([facility]): Pt completed lingual press, push/pull, press against resistance, effortful swallow , and Roseanne. 04/05/24 MBS ([facility]): NPO with limited ice chips 04/03/24 CSE ([facility]): Full liquid diet as tolerated; Thin/regular liquids sips, meds with puree, small b/s Respiratory/Intubation Status:RA 05/10/[address]: No acute intracranial hemorrhage. Left frontal scalp hematoma extending into the periorbital soft tissues without subjacent fracture. No acute cervical spine fracture. Precautions: Fall, GARCÍA PLOF: [employer] [place], wears bilateral hearing aids, ambulates w/ walker Current Diet Order: CLD and NTL Baseline Diet: See speech therapy hx above. General Information Gian Lee 05/13/24 ENVIRONMENTAL LEAD Received On: 05/13/24 General Observations: Alert and [...] consistently at risk of spilling into airway. ENVIRONMENTAL LEAD to follow for swallowing therapy. Assessment Details [...] lateral view at 90 degrees. Consistencies Administered: Success thickened liquids, Honey thickened liquids, Purees, Solids Respiratory Support: No Significant Impairment- Respiratory support is adequate for speech & swallowing Administered consistencies contain barium product. Success Thickened Liquids: Laryngeal Penetration: Present Aspiration Present: Yes Timing: During, After, Before Amount: Moderate Response to aspiration: None Successful Modifications : Other (comment) (Bolus hold) Unsuccessful Modifications: Cough, Repeat swallow Successful Modification Combinations: None Unsuccessful Modification Combinations: None Penetration Aspiration Scale-Success: 8-Material enters the airway, passes below the [...] treatment goals and details, if indicated. Plan ENVIRONMENTAL LEAD Frequency of Services during current admission: 2-4x/wk ENVIRONMENTAL LEAD Recommendation (Add'l Services): Home with family, Home Health ENVIRONMENTAL LEAD Multi-Disciplinary Problems (from Speech Therapy) Active Problems [...] visit, this serves as the discharge summary. Doris Turcios NP ENVIRONMENTAL LEAD ORDERABLES Final Res ult * eGFR (05/12/2024 9:04 PM RESPIRATORY CARE PROGRAM DIRECTOR) eGFR 84 >=60 mL/min/1. 73 m2 Comment: [...] last reviewed 2021. Blood 05/12/2024 9:04 PM RESPIRATORY CARE PROGRAM DIRECTOR 05/12/2024 9:51 PM RESPIRATORY CARE PROGRAM DIRECTOR us Doris Turcios NP LAB BLOOD ORDERABLES Hamida pillai Result [facility] [place] [address] * (ABNORMAL) Differential, auto (05/12/2024 9:04 PM RESPIRATORY CARE PROGRAM DIRECTOR) Pathologist [facility] Neutrophil abs 2.3 1.5 - 6.5 K/cumm Imm gran abs 0.0 0.0 - 0.1 K/cumm [facility] Lymphocyte abs 0.7(L) 0.8 - 3.3 K/cumm [facility] Monocyte abs 0.8 0.2 - 0.8 K/cumm [facility] Eosinophil abs 0.2 0.0 - 0.5 K/cumm [facility] Basophil abs 0.1 0.0 - 0.1 K/cumm [facility] Neutrophil pct 56.1 % [facility] Comment: Interpretive Data Percent cell count reference ranges are not reported, since discordance with absolute values may lead to misinterpretation of CBC data. Current Interpretive Data was last revised on 2017. Imm gran pct 0.5 % [facility] Comment: Interpretive Data Percent cell count reference ranges are not reported, since discordance with absolute values may lead to misinterpretation of CBC data. Current Interpretive Data was last revised on 2017. Lymphocyte pct 17.1 % [facility] Comment: Interpretive Data Percent cell count reference ranges are not reported, since discordance with absolute values may lead to misinterpretation of CBC data. Current Interpretive Data was last revised on 2017. Monocyte pct 20.1 % [facility] Comment: Interpretive Data Percent cell count reference ranges are not reported, since discordance with absolute values may lead to misinterpretation of CBC data. Current Interpretive Data was last revised on 2017. Eosinophil pct 4.5 % [facility] Comment: Interpretive Data Percent cell count reference ranges are not reported, since discordance with absolute values may lead to misinterpretation of CBC data. Current Interpretive Data was last revised on 2017. Basophil pct 1.7 % [facility] Comment: Interpretive Data Percent cell count reference ranges are not reported, since discordance with absolute values may lead to misinterpretation of CBC data. Current Interpretive Data was last revised on 2017. Blood 05/12/2024 9:04 PM RESPIRATORY CARE PROGRAM DIRECTOR 05/12/2024 9:54 PM RESPIRATORY CARE PROGRAM DIRECTOR Doris Turcios NP LAB BLOOD ORDERABLES Hamida l Result [facility] [place] [address] * (ABNORMAL) CBC with auto differential (05/12/2024 9:04 PM RESPIRATORY CARE PROGRAM DIRECTOR) WBC 4.0 3.8 - 9.9 K/cumm Hgb 7.8(L) 13.0 - 17.5 g/dL [facility] Hct 23.3(L) 38.9 - 50.3 % [facility] Plt 142(L) 150 - 400 K/cumm [facility] MPV 10.6 9.1 - 12.3 fL [facility] RBC 2.72(L) 4.30 - 5.80 M/cumm [facility] MCV 85.7 81.3 - 96.4 fL [facility] MCH 28.7 27.1 - 33.3 pg [facility] MCHC 33.5 32.3 - 35.7 g/dL [facility] RDW CV 16.3(H) 11.1 - 14.9 % [facility] RDW SD 49.5(H) 35.7 - 48.1 fL [facility] NRBC abs 0.00 0.00 - 0.01 K/cumm [facility] Blood 05/12/2024 9:04 PM RESPIRATORY CARE PROGRAM DIRECTOR 05/12/2024 9:54 PM RESPIRATORY CARE PROGRAM DIRECTOR Doris Turcios NP LAB BLOOD ORDERABLES Hamida l Result Performing Organization Address City/[facility]/ZIP Co de Phone Number [facility] [place] [address] * (ABNORMAL) Basic metabolic panel (05/12/2024 9:04 PM RESPIRATORY CARE PROGRAM DIRECTOR) [facility] Sodium 129(L) 135 - 145 mmol/L Potassium, pl 4.6 3.3 - 4.9 mmol/L [facility] Chloride 98 97 - 110 mmol/L [facility] CO2 22 22 - 32 mmol/L [facility] Anion gap 9 2 - 15 mmol/L [facility] BUN 20 6 - 25 mg/dL [facility] Creatinine 0.89 0.80 - 1.30 mg/dL [facility] Glucose 98 70 - 199 mg/dL [facility] Comment: Interpretive Data Fasting glucose >/= 126 [...] 2022. Calcium 8.3(L) 8.5 - 10.3 mg/dL [facility] Blood 05/12/2024 9:04 PM RESPIRATORY CARE PROGRAM DIRECTOR 05/12/2024 9:51 PM RESPIRATORY CARE PROGRAM DIRECTOR Doris Turcios NP LAB BLOOD ORDERABLES Hamida l Result [facility] [place] [address] * eGFR (05/12/2024 7:40 AM RESPIRATORY CARE PROGRAM DIRECTOR) [facility] eGFR 81 >=60 mL/min/1. 73 m2 Comment: [...] last reviewed 2021. Blood 05/12/2024 7:40 AM RESPIRATORY CARE PROGRAM DIRECTOR 05/12/2024 7:45 AM RESPIRATORY CARE PROGRAM DIRECTOR Doris Turcios NP LAB BLOOD ORDERABLES [facility] Result [facility] [place] [address] * (ABNORMAL) Differential, auto (05/12/2024 7:40 AM RESPIRATORY CARE PROGRAM DIRECTOR) Pathologist [facility] Neutrophil abs 2.3 1.5 - 6.5 K/cumm Imm gran abs 0.0 0.0 - 0.1 K/cumm [facility] Lymphocyte abs 0.6(L) 0.8 - 3.3 K/cumm [facility] Monocyte abs 0.5 0.2 - 0.8 K/cumm [facility] Eosinophil abs 0.2 0.0 - 0.5 K/cumm [facility] Basophil abs 0.0 0.0 - 0.1 K/cumm [facility] Neutrophil pct 65.0 % [facility] Comment: Interpretive Data Percent cell count reference ranges are not reported, since discordance with absolute values may lead to misinterpretation of CBC data. Current Interpretive Data was last revised on 2017. Imm gran pct 0.0 % [facility] Comment: Interpretive Data Percent cell count reference ranges are not reported, since discordance with absolute values may lead to misinterpretation of CBC data. Current Interpretive Data was last revised on 2017. Lymphocyte pct 15.4 % [facility] Comment: Interpretive Data Percent cell count reference ranges are not reported, since discordance with absolute values may lead to misinterpretation of CBC data. Current Interpretive Data was last revised on 2017. Monocyte pct 14.3 % [facility] Comment: Interpretive Data Percent cell count reference ranges are not reported, since discordance with absolute values may lead to misinterpretation of CBC data. Current Interpretive Data was last revised on 2017. Eosinophil pct 4.2 % [facility] Comment: Interpretive Data Percent cell count reference ranges are not reported, since discordance with absolute values may lead to misinterpretation of CBC data. Current Interpretive Data was last revised on 2017. Basophil pct 1.1 % [facility] Comment: Interpretive Data Percent cell count reference ranges are not reported, since discordance with absolute values may lead to misinterpretation of CBC data. Current Interpretive Data was last revised on 2017. Blood 05/12/2024 7:40 AM RESPIRATORY CARE PROGRAM DIRECTOR 05/12/2024 7:45 AM RESPIRATORY CARE PROGRAM DIRECTOR Hernandez Kwok MD LAB BLOOD ORDERABLES F inal Result [facility] [place] [address] * (ABNORMAL) CBC with auto differential (05/12/2024 7:40 AM RESPIRATORY CARE PROGRAM DIRECTOR) WBC 3.6(L) 3.8 - 9.9 K/cumm Hgb 7.9(L) 13.0 - 17.5 g/dL [facility] Hct 22.8(L) 38.9 - 50.3 % [facility] Plt 125(L) 150 - 400 K/cumm [facility] MPV 9.8 9.1 - 12.3 fL [facility] RBC 2.67(L) 4.30 - 5.80 M/cumm [facility] MCV 85.4 81.3 - 96.4 fL [facility] MCH 29.6 27.1 - 33.3 pg [facility] MCHC 34.6 32.3 - 35.7 g/dL [facility] RDW CV 16.0(H) 11.1 - 14.9 % [facility] RDW SD 48.6(H) 35.7 - 48.1 fL [facility] NRBC abs 0.00 0.00 - 0.01 K/cumm [facility] Blood 05/12/2024 7:40 AM RESPIRATORY CARE PROGRAM DIRECTOR 05/12/2024 7:45 AM RESPIRATORY CARE PROGRAM DIRECTOR Hernandez Kwok MD LAB BLOOD ORDERABLES F inal Result [facility] [place] [address] * (ABNORMAL) Basic metabolic panel (05/12/2024 7:40 AM RESPIRATORY CARE PROGRAM DIRECTOR) Sodium 129(L) 135 - 145 mmol/L Potassium, pl 4.1 3.3 - 4.9 mmol/L [facility] Chloride 99 97 - 110 mmol/L [facility] CO2 24 22 - 32 mmol/L [facility] Anion gap 6 2 - 15 mmol/L [facility] BUN 19 6 - 25 mg/dL [facility] Creatinine 0.93 0.80 - 1.30 mg/dL [facility] Glucose 135 70 - 199 mg/dL [facility] Comment: Interpretive Data Fasting glucose >/= 126 [...] 2022. Calcium 8.0(L) 8.5 - 10.3 mg/dL [facility] Blood 05/12/2024 7:40 AM RESPIRATORY CARE PROGRAM DIRECTOR 05/12/2024 7:45 AM RESPIRATORY CARE PROGRAM DIRECTOR Doris Turcios NP LAB BLOOD ORDERABLES Hamida pillai Result [facility] [place] [address] * (ABNORMAL) Differential, auto (05/12/2024 1:41 AM RESPIRATORY CARE PROGRAM DIRECTOR) Pathologist [facility] Neutrophil abs 2.5 1.5 - 6.5 K/cumm Imm gran abs 0.0 0.0 - 0.1 K/cumm [facility] Lymphocyte abs 0.7(L) 0.8 - 3.3 K/cumm [facility] Monocyte abs 0.8 0.2 - 0.8 K/cumm [facility] Eosinophil abs 0.2 0.0 - 0.5 K/cumm [facility] Basophil abs 0.1 0.0 - 0.1 K/cumm [facility] Neutrophil pct 59.9 % [facility] Comment: Interpretive Data Percent cell count reference ranges are not reported, since discordance with absolute values may lead to misinterpretation of CBC data. Current Interpretive Data was last revised on 2017. Imm gran pct 0.5 % [facility] Comment: Interpretive Data Percent cell count reference ranges are not reported, since discordance with absolute values may lead to misinterpretation of CBC data. Current Interpretive Data was last revised on 2017. Lymphocyte pct 16.0 % [facility] Comment: Interpretive Data Percent cell count reference ranges are not reported, since discordance with absolute values may lead to misinterpretation of CBC data. Current Interpretive Data was last revised on 2017. Monocyte pct 18.8 % [facility] Comment: Interpretive Data Percent cell count reference ranges are not reported, since discordance with absolute values may lead to misinterpretation of CBC data. Current Interpretive Data was last revised on 2017. Eosinophil pct 3.6 % [facility] Comment: Interpretive Data Percent cell count reference ranges are not reported, since discordance with absolute values may lead to misinterpretation of CBC data. Current Interpretive Data was last revised on 2017. Basophil pct 1.2 % [facility] Comment: Interpretive Data Percent cell count reference ranges are not reported, since discordance with absolute values may lead to misinterpretation of CBC data. Current Interpretive Data was last revised on 2017. Blood 05/12/2024 1:41 AM RESPIRATORY CARE PROGRAM DIRECTOR 05/12/2024 2:24 AM RESPIRATORY CARE PROGRAM DIRECTOR Hernandez Kwok MD LAB BLOOD ORDERABLES F inal Result Performing Organization Address [facility]/ZIP Co de Phone Number [facility] [place] [address] * (ABNORMAL) CBC with auto differential (05/12/2024 1:41 AM RESPIRATORY CARE PROGRAM DIRECTOR) WBC 4.2 3.8 - 9.9 K/cumm Hgb 7.7(L) 13.0 - 17.5 g/dL [facility] Hct 22.5(L) 38.9 - 50.3 % [facility] Plt 132(L) 150 - 400 K/cumm [facility] MPV 10.3 9.1 - 12.3 fL [facility] RBC 2.64(L) 4.30 - 5.80 M/cumm [facility] MCV 85.2 81.3 - 96.4 fL [facility] MCH 29.2 27.1 - 33.3 pg [facility] MCHC 34.2 32.3 - 35.7 g/dL [facility] RDW CV 15.9(H) 11.1 - 14.9 % [facility] RDW SD 49.1(H) 35.7 - 48.1 fL [facility] NRBC abs 0.00 0.00 - 0.01 K/cumm [facility] Blood 05/12/2024 1:41 AM RESPIRATORY CARE PROGRAM DIRECTOR 05/12/2024 2:24 AM RESPIRATORY CARE PROGRAM DIRECTOR Hernandez Kwok MD LAB BLOOD ORDERABLES F inal Result Performing Organization Address City/[facility]/ZIP Co de Phone Number [facility] [place] [address] * (ABNORMAL) Drugs of Abuse Screen, Urine with Reflex Confirmation (05/11/2024 3:05 PM RESPIRATORY CARE PROGRAM DIRECTOR) Amphetamine, ur Screen Positive, presumptive (A) CutOff [...] Barbiturates, ur Not Detected CutOff 200ng/mL [facility] Comment: Interpretive Data - Barbiturates: Samples containing greater than 200 ng/mL secobarbital or other cross-reacting barbiturate compounds are reported as positive. False positive and false negative results are possible. Confirmatory testing required for definitive results. Current Interpretive Data was last reviewed 2022. Benzodiazepines, ur Not Detected CutOff 100ng/mL [facility] Comment: Interpretive Data - Benzodiazepines: Samples containing greater than 100 ng/mL nordiazepam or other cross-reacting compounds are reported as positive. False positive and false negative results are possible. Confirmatory testing required for definitive results. Current Interpretive Data was last reviewed 2022. Cannabinoids, ur Not Detected CutOff 50 ng/mL [facility] Comment: Interpretive Data - Cannabinoids: Samples containing greater than 50 ng/mL delta-9 THC -COOH or other cross- reacting compounds are reported as positive. False positive and false negative results are possible. Confirmatory testing required for definitive results. Current Interpretive Data was last reviewed 2022. Cocaine, ur Not Detected CutOff 150ng/mL [facility] Comment: Interpretive Data - Cocaine: Samples containing greater than 150 ng/mL benzoylecgonine or other cross- reacting compounds are reported as positive. False positive and false negative results are possible. Confirmatory testing required for definitive results. Current Interpretive Data was last reviewed 2022. Fentanyl, Ur Not Detected CutOff 5 ng/mL [facility] Comment: Interpretive Data - Fentanyl: Samples containing greater than 5 ng/mL norfentanyl, fentanyl, or other cross-reacting fentanyl compounds are reported as positive. False positive and false negative results are possible. Confirmatory testing required for definitive results. Current Interpretive Data was last reviewed 2023. Methadone, ur Not Detected CutOff 300ng/mL [facility] Comment: Interpretive Data - Methadone: Samples containing greater than 300 ng/mL d,l-methadone or other cross-reacting compounds are reported as positive. False positive and false negative results are possible. Confirmatory testing required for definitive results. Current Interpretive Data was last reviewed 2022. Opiates, ur Not Detected CutOff 300ng/mL [facility] Comment: Interpretive Data - Opiates: Samples containing greater than 300 ng/mL morphine or other cross-reacting compounds are reported as positive. False positive and false negative results are possible. Confirmatory testing required for definitive results. Current Interpretive Data was last reviewed 2022. Oxycodone, ur Not Detected CutOff 100ng/mL [facility] Comment: Interpretive Data - Oxycodone: Samples containing greater than 100 ng/mL oxycodone or other cross-reacting compounds are reported as positive. False positive and false negative results are possible. Confirmatory testing required for definitive results. Current Interpretive Data was last reviewed 2022. Phencyclidine, ur Not Detected CutOff 25 ng/mL [facility] Comment: Interpretive Data - Phencyclidine: Samples containing greater than 25 ng/mL phencyclidine or other cross-reacting compounds are reported as positive. False positive and false negative results are possible. Confirmatory testing required for definitive results. Current Interpretive Data was last reviewed 2022. Urine Creatinine 170 mg/dL [facility] Comment: Interpretive Data Urine Creatinine: < 10 mg/dL is extremely dilute = or > 10 but < 20 mg/dL is dilute = or > 20 mg/dL is normal Current Interpretive Data was last revised on 2017. Urine 05/11/2024 3:05 PM RESPIRATORY CARE PROGRAM DIRECTOR 05/11/2024 3:27 PM RESPIRATORY CARE PROGRAM DIRECTOR Narrative [facility] - 05/11/2024 3:59 PM RESPIRATORY CARE PROGRAM DIRECTOR Drug of Abuse screening is performed by immunoassay for medical purposes only. This is not to be used for Pain Management purposes. If Detected, confirmation testing will be performed for Amphetamines, Cocaine, Fentanyl, Methadone, Opiates, Oxycodone or Phencyclidine. Hernandez Kwok MD LAB URINE ORDERABLES F inal Result Performing Organization Address [facility] Co de Phone Number [facility] [place] [employer] [place] [address] * eGFR (05/11/2024 3:05 PM RESPIRATORY CARE PROGRAM DIRECTOR) eGFR 73 >=60 mL/min/1. 73 m2 Comment: [...] last reviewed 2021. Blood 05/11/2024 3:05 PM RESPIRATORY CARE PROGRAM DIRECTOR 05/11/2024 3:27 PM RESPIRATORY CARE PROGRAM DIRECTOR Doris Turcios NP LAB BLOOD ORDERABLES Hamida l Result Performing Organization Address [facility]/ZIP Co de Phone Number [facility] Department [place] [employer] [place] [address] * Amphetamine Confirmation, Urine (05/11/2024 3:05 PM RESPIRATORY CARE PROGRAM DIRECTOR) Pathologist [facility] Amphetamine Conf, Ur Does Not Confirm CutOff 150ng/mL Methamphetamine Conf, Ur Does Not Confirm CutOff 150ng/mL [facility] MDA Conf, Ur Does Not Confirm CutOff 150ng/mL [facility] MDMA Conf, Ur Does Not Confirm CutOff 50 ng/mL [facility] MDEA Conf, Ur Does Not Confirm CutOff 150ng/mL [facility] MBDB Conf, Ur Does Not Confirm CutOff 150ng/mL [facility] Comment: Interpretive Data This test detects the presence or absence of drug compounds using LC Tandem mass spectrometry. While this test is highly specific, false positive and false negative results may occur in very rare circumstances. Contact the laboratory for consultation, if needed. Performance characteristics were determined by the [facility] in a manner consistent with CLIA requirement and has not been cleared or approved by the U.S. Food and Drug Administration. Current interpretive data was last revised on 2020. Urine 05/11/2024 3:05 PM RESPIRATORY CARE PROGRAM DIRECTOR 05/11/2024 3:27 PM RESPIRATORY CARE PROGRAM DIRECTOR Alejandro Soliz III, MD LAB URINE ORDER AMARA Final Result [facility] [place] [address] * (ABNORMAL) Basic metabolic panel (05/11/2024 3:05 PM RESPIRATORY CARE PROGRAM DIRECTOR) Sodium 127(L) 135 - 145 mmol/L Potassium, pl 4.6 3.3 - 4.9 mmol/L [facility] Chloride 95(L) 97 - 110 mmol/L [facility] CO2 22 22 - 32 mmol/L [facility] Anion gap 10 2 - 15 mmol/L [facility] BUN 22 6 - 25 mg/dL [facility] Creatinine 1.01 0.80 - 1.30 mg/dL [facility] Glucose 120 70 - 199 mg/dL [facility] Comment: Interpretive Data Fasting glucose >/= 126 [...] mg/dL [facility] Blood 05/11/2024 3:05 PM RESPIRATORY CARE PROGRAM DIRECTOR 05/11/2024 3:27 PM RESPIRATORY CARE PROGRAM DIRECTOR Doris Turcios NP LAB BLOOD ORDERABLES Hamida l Result [facility] [place] [address] * US Vein Duplex Lower Extremity Bilateral Complete (05/11/2024 12:49 PM RESPIRATORY CARE PROGRAM DIRECTOR) Anatomical Region Laterality Modality Vascular Bilateral Ultrasound 05/11/2024 12:2 9 PM RESPIRATORY CARE PROGRAM DIRECTOR Narrative 05/11/2024 1:30 PM RESPIRATORY CARE PROGRAM DIRECTOR [facility] - Department of Vascular Surgery, Vascular Laboratory [address] [place] [address] Lower Extremity Venous Ultrasound Report Patient Name: GIAN LEE : 1940 (83y 9m) Study Date: 05/11/2024 12:29:47 PM Gender: M Tech: [place] Location: [id number] Ref Provider: DORIS TURCIOS Quality: Adequate Order [...] Swelling, Lower Extremity, Bilateral - FINDINGS: Performing Crna: Zoe Preston RVT. Right: Venous Doppler signals [...] Baldomero Mccall MD FACS 05/11/2024 12:48:34 PM RESPIRATORY CARE PROGRAM DIRECTOR Procedure Note Baldomero Mccall MD - 05/11/2024 [employer] [facility] [employer] [facility] - Department of Vascular Surgery,Vascular Laboratory [address] [place] [id number] Lower Extremity Venous Ultrasound Report Patient Name: GIAN LEE : 1940 (83y 9m) Study Date: 05/11/2024 12:29:47 PM Gender: M Tech: [place] Location: [id number] Ref Provider: DORIS TURCIOS Quality: Adequate Order Provider: DORIS TURCIOS PROCEDURES: Vascular Report: Venous Duplex imaging was performed bilaterally in the lower extremities.The common femoral, femoral, popliteal, posterior tibial, peroneal veins wereevaluated for patency, spontaneity and phasicity with Doppler, compression and augmentationmaneuvers. Great saphenous vein proximal at the junction was evaluated with compressionmaneuvers. INDICATIONS: Swelling, Lower Extremity, Bilateral - FINDINGS: Performing Crna: Zoe Preston RVT. Right: Venous Doppler signals [...] Baldomero Mccall MD FACS 05/11/2024 12:48:34 PM RESPIRATORY CARE PROGRAM DIRECTOR Doris Turcios NP IM US PROCEDURES Final R esult * (ABNORMAL) Differential, auto (05/11/2024 10:30 AM RESPIRATORY CARE PROGRAM DIRECTOR) Neutrophil abs 3.5 1.5 - 6.5 K/cumm Imm gran abs 0.0 0.0 - 0.1 K/cumm [facility] Lymphocyte abs 0.6(L) 0.8 - 3.3 K/cumm [facility] Monocyte abs 0.8 0.2 - 0.8 K/cumm [facility] Eosinophil abs 0.1 0.0 - 0.5 K/cumm [facility] Basophil abs 0.1 0.0 - 0.1 K/cumm [facility] Neutrophil pct 70.4 % [facility] Comment: Interpretive Data Percent cell count reference ranges are not reported, since discordance with absolute values may lead to misinterpretation of CBC data. Current Interpretive Data was last revised on 2017. Imm gran pct 0.4 % [facility] Comment: Interpretive Data Percent [...] on 2017. Monocyte pct 15.1 % [facility] Comment: Interpretive Data Percent cell count reference ranges are not reported, since discordance with absolute values may lead to misinterpretation of CBC data. Current Interpretive Data was last revised on 2017. Eosinophil pct 1.4 % [facility] Comment: Interpretive Data Percent cell count reference ranges are not reported, since discordance with absolute values may lead to misinterpretation of CBC data. Current Interpretive Data was last revised on 2017. Basophil pct 1.2 % [facility] Comment: Interpretive Data Percent cell count reference ranges are not reported, since discordance with absolute values may lead to misinterpretation of CBC data. Current Interpretive Data was last revised on 2017. Blood 05/11/2024 10:3 0 AM RESPIRATORY CARE PROGRAM DIRECTOR 05/11/2024 10:47 AM RESPIRATORY CARE PROGRAM DIRECTOR Hernandez Kwok MD LAB BLOOD ORDERABLES F inal Result [facility] [place] [address] * (ABNORMAL) CBC with auto differential (05/11/2024 10:30 AM RESPIRATORY CARE PROGRAM DIRECTOR) Pathologist [facility] WBC 5.0 3.8 - 9.9 K/cumm Hgb 7.8(L) 13.0 - 17.5 g/dL [facility] Hct 22.8(L) 38.9 - 50.3 % [facility] Plt 149(L) 150 - 400 K/cumm [facility] MPV 10.5 9.1 - 12.3 fL [facility] RBC 2.67(L) 4.30 - 5.80 M/cumm [facility] MCV 85.4 81.3 - 96.4 fL [facility] MCH 29.2 27.1 - 33.3 pg [facility] MCHC 34.2 32.3 - 35.7 g/dL [facility] RDW CV 15.6(H) 11.1 - 14.9 % [facility] RDW SD 47.7 35.7 - 48.1 fL [facility] NRBC abs 0.00 0.00 - 0.01 K/cumm [facility] Blood 05/11/2024 10:3 0 AM RESPIRATORY CARE PROGRAM DIRECTOR 05/11/2024 10:47 AM RESPIRATORY CARE PROGRAM DIRECTOR Hernandez Kwok MD LAB BLOOD ORDERABLES F inal Result Performing Organization Address [facility] de Phone Number [facility] [place] [address] * eGFR (05/11/2024 4:55 AM RESPIRATORY CARE PROGRAM DIRECTOR) Pathologist [facility] eGFR 74 >=60 mL/min/1. 73 m2 Comment: [...] last reviewed 2021. Blood 05/11/2024 4:55 AM RESPIRATORY CARE PROGRAM DIRECTOR 05/11/2024 5:44 AM RESPIRATORY CARE PROGRAM DIRECTOR Zoran Leyva DO LAB BLOOD ORDERABLES F inal Result Performing Organization Address [facility] Co de Phone Number [facility] [place] [address] * (ABNORMAL) Differential, auto (05/11/2024 4:55 AM RESPIRATORY CARE PROGRAM DIRECTOR) Pathologist [facility] Neutrophil abs 4.1 1.5 - 6.5 K/cumm Imm gran abs 0.0 0.0 - 0.1 K/cumm [facility] Lymphocyte abs 0.7(L) 0.8 - 3.3 K/cumm [facility] Monocyte abs 0.7 0.2 - 0.8 K/cumm [facility] Eosinophil abs 0.1 0.0 - 0.5 K/cumm [facility] Basophil abs 0.1 0.0 - 0.1 K/cumm [facility] Neutrophil pct 73.1 % [facility] Comment: Interpretive Data Percent cell count reference ranges are not reported, since discordance with absolute values may lead to misinterpretation of CBC data. Current Interpretive Data was last revised on 2017. Imm gran pct 0.4 % [facility] Comment: Interpretive Data Percent cell count reference ranges are not reported, since discordance with absolute values may lead to misinterpretation of CBC data. Current Interpretive Data was last revised on 2017. Lymphocyte pct 12.1 % [facility] Comment: Interpretive Data Percent cell count reference ranges are not reported, since discordance with absolute values may lead to misinterpretation of CBC data. Current Interpretive Data was last revised on 2017. Monocyte pct 12.1 % [facility] Comment: Interpretive Data Percent cell count reference ranges are not reported, since discordance with absolute values may lead to misinterpretation of CBC data. Current Interpretive Data was last revised on 2017. Eosinophil pct 0.9 % [facility] Comment: Interpretive Data Percent cell count reference ranges are not reported, since discordance with absolute values may lead to misinterpretation of CBC data. Current Interpretive Data was last revised on 2017. Basophil pct 1.4 % [facility] Comment: Interpretive Data Percent cell count reference ranges are not reported, since discordance with absolute values may lead to misinterpretation of CBC data. Current Interpretive Data was last revised on 2017. Blood 05/11/2024 4:55 AM RESPIRATORY CARE PROGRAM DIRECTOR 05/11/2024 5:45 AM RESPIRATORY CARE PROGRAM DIRECTOR Hernandez Kwok MD LAB BLOOD ORDERABLES F inal Result [facility] [place] [address] * (ABNORMAL) CBC with auto differential (05/11/2024 4:55 AM RESPIRATORY CARE PROGRAM DIRECTOR) [facility] WBC 5.6 3.8 - 9.9 K/cumm Hgb 8.2(L) 13.0 - 17.5 g/dL [facility] Hct 23.8(L) 38.9 - 50.3 % [facility] Plt 172 150 - 400 K/cumm [facility] MPV 10.3 9.1 - 12.3 fL [facility] RBC 2.84(L) 4.30 - 5.80 M/cumm [facility] MCV 83.8 81.3 - 96.4 fL [facility] MCH 28.9 27.1 - 33.3 pg [facility] MCHC 34.5 32.3 - 35.7 g/dL [facility] RDW CV 15.7(H) 11.1 - 14.9 % [facility] RDW SD 46.8 35.7 - 48.1 fL [facility] NRBC abs 0.00 0.00 - 0.01 K/cumm [facility] Blood 05/11/2024 4:55 AM RESPIRATORY CARE PROGRAM DIRECTOR 05/11/2024 5:45 AM RESPIRATORY CARE PROGRAM DIRECTOR Hernandez Kwok MD LAB BLOOD ORDERABLES F inal Result [facility] [place] [address] * (ABNORMAL) Comprehensive metabolic panel (05/11/2024 4:55 AM RESPIRATORY CARE PROGRAM DIRECTOR) [facility] Sodium 123(L) 135 - 145 mmol/L Potassium, pl 4.8 3.3 - 4.9 mmol/L [facility] Chloride 93(L) 97 - 110 mmol/L [facility] CO2 21(L) 22 - 32 mmol/L [facility] Anion gap 9 2 - 15 mmol/L [facility] BUN 21 6 - 25 mg/dL [facility] Creatinine 1.00 0.80 - 1.30 mg/dL [facility] Glucose 100 70 - 199 mg/dL [facility] Comment: Interpretive Data Fasting glucose >/= 126 [...] 2022. Calcium 8.4(L) 8.5 - 10.3 mg/dL [facility] Bilirubin, total 0.8 0.1 - 1.2 mg/dL [facility] Protein, pl 5.8(L) 6.5 - 8.5 g/dL [facility] Albumin 3.3(L) 3.5 - 5.0 g/dL [facility] Alk phos 90 40 - 130 Units/L [facility] ALT 22 7 - 55 Units/L [facility] AST 34 10 - 50 Units/L [facility] Blood 05/11/2024 4:55 AM RESPIRATORY CARE PROGRAM DIRECTOR 05/11/2024 5:44 AM RESPIRATORY CARE PROGRAM DIRECTOR us Zoran Leyva DO LAB BLOOD ORDERABLES F inal Result [facility] [place] [address] * (ABNORMAL) Differential, auto (05/11/2024 1:32 AM RESPIRATORY CARE PROGRAM DIRECTOR) Neutrophil abs 4.3 1.5 - 6.5 K/cumm Imm gran abs 0.0 0.0 - 0.1 K/cumm [facility] Lymphocyte abs 0.7(L) 0.8 - 3.3 [facility] Monocyte abs 0.7 0.2 - 0.8 K/cumm [facility] Eosinophil abs 0.1 0.0 - 0.5 K/cumm [facility] Basophil abs 0.1 0.0 - 0.1 K/cumm [facility] Neutrophil pct 73.5 % [facility] Comment: Interpretive Data Percent cell count reference ranges are not reported, since discordance with absolute values may lead to misinterpretation of CBC data. Current Interpretive Data was last revised on 2017. Imm gran pct 0.3 % [facility] Comment: Interpretive Data Percent cell count reference ranges are not reported, since discordance with absolute values may lead to misinterpretation of CBC data. Current Interpretive Data was last revised on 2017. Lymphocyte pct 11.7 % [facility] Comment: Interpretive Data Percent cell count reference ranges are not reported, since discordance with absolute values may lead to misinterpretation of CBC data. Current Interpretive Data was last revised on 2017. Monocyte pct 12.5 % [facility] Comment: Interpretive Data Percent cell count reference ranges are not reported, since discordance with absolute values may lead to misinterpretation of CBC data. Current Interpretive Data was last revised on 2017. Eosinophil pct 1.0 % [facility] Comment: Interpretive Data Percent cell count reference ranges are not reported, since discordance with absolute values may lead to misinterpretation of CBC data. Current Interpretive Data was last revised on 2017. Basophil pct 1.0 % [facility] Comment: Interpretive Data Percent cell count reference ranges are not reported, since discordance with absolute values may lead to misinterpretation of CBC data. Current Interpretive Data was last revised on 2017. Blood 05/11/2024 1:32 AM RESPIRATORY CARE PROGRAM DIRECTOR 05/11/2024 5:45 AM RESPIRATORY CARE PROGRAM DIRECTOR us Zoran Leyva DO LAB BLOOD ORDERABLES F inal Result [facility] Department [place] [address] * (ABNORMAL) CBC with auto differential (05/11/2024 1:32 AM RESPIRATORY CARE PROGRAM DIRECTOR) WBC 5.8 3.8 - 9.9 K/cumm Hgb 8.2(L) 13.0 - 17.5 g/dL [facility] Hct 23.9(L) 38.9 - 50.3 % [facility] Plt 159 150 - 400 K/cumm [facility] MPV 10.6 9.1 - 12.3 fL [facility] RBC 2.82(L) 4.30 - 5.80 M/cumm [facility] MCV 84.8 81.3 - 96.4 fL [facility] MCH 29.1 27.1 - 33.3 pg [facility] MCHC 34.3 32.3 - 35.7 g/dL [facility] RDW CV 15.9(H) 11.1 - 14.9 % [facility] RDW SD 47.5 35.7 - 48.1 fL [facility] NRBC abs 0.00 0.00 - 0.01 K/cumm [facility] Blood 05/11/2024 1:32 AM RESPIRATORY CARE PROGRAM DIRECTOR 05/11/2024 5:45 AM RESPIRATORY CARE PROGRAM DIRECTOR Zoran Leyva DO LAB BLOOD ORDERABLES F inal Result [facility] [place] [address] * (ABNORMAL) CBC without differential (05/10/2024 8:22 PM RESPIRATORY CARE PROGRAM DIRECTOR) WBC 6.5 3.8 - 9.9 K/cumm Hgb 8.7(L) 13.0 - 17.5 g/dL [facility] Hct 25.6(L) 38.9 - 50.3 % [facility] Plt 163 150 - 400 K/cumm [facility] MPV 10.0 9.1 - 12.3 fL [facility] RBC 3.01(L) 4.30 - 5.80 M/cumm [facility] MCV 85.0 81.3 - 96.4 fL [facility] MCH 28.9 27.1 - 33.3 pg [facility] MCHC 34.0 32.3 - 35.7 g/dL [facility] RDW CV 15.9(H) 11.1 - 14.9 % [facility] RDW SD 48.7(H) 35.7 - 48.1 fL [facility] NRBC abs 0.00 0.00 - 0.01 K/cumm [facility] Blood 05/10/2024 8:22 PM RESPIRATORY CARE PROGRAM DIRECTOR 05/10/2024 8:40 PM RESPIRATORY CARE PROGRAM DIRECTOR Sugar Sequeira MD LAB BLOOD ORDERABLES Final Result [facility] [place] [address] * CT Body Outside Consult (05/10/2024 7:00 PM RESPIRATORY CARE PROGRAM DIRECTOR) Anatomical Region Laterality Modality Body N/A Computed Tomogra phy 05/10/2024 7:32 PM RESPIRATORY CARE PROGRAM DIRECTOR Impressions 05/10/2024 7:34 PM RESPIRATORY CARE PROGRAM DIRECTOR This study was initially nominated as a consult on outside images via Outside Image Sharing Service. However, a consult was not performed because a subsequent CT of the chest and abdominal aorta with bilateral iliofemoral runoff was performed more recently on 05/10/2024. Accordingly, there will be no separate report of this study generated by a [facility] Radiologist. Dictated by: Bo Kumar MD The radiology attending physician has personally reviewed this study, and had reviewed and/or edited this written report and agrees with it. Electronically signed by: Josselin Xavier M.D. Narrative 05/10/2024 7:34 PM RESPIRATORY CARE PROGRAM DIRECTOR EXAMINATION: CHANGE CONSULT ON OUTSIDE IMAGES TO [...] report of this study generated by a [facility] Radiologist. Dictated by: Bo Kumar MD The radiology attending physician has personally reviewed this study, and had reviewed and/or edited this written report and agrees with it. Electronically signed by: Josselin Xavier M.D. Paula Mcclellan MD IMG CT PROCEDURES Final Result * Neuro CT Outside Consult (05/10/2024 6:57 PM RESPIRATORY CARE PROGRAM DIRECTOR) Anatomical Region Laterality Modality N/A Computed Tomogra phy 05/10/2024 8:25 PM RESPIRATORY CARE PROGRAM DIRECTOR Impressions 05/11/2024 12:12 PM RESPIRATORY CARE PROGRAM DIRECTOR 1. No acute intracranial hemorrhage. Left frontal [...] images may or may not represent the [place] source data set and thus may contain changes that may lower the accuracy of this second-opinion interpretation. Dictated by: Damien Holt MD The radiology attending physician has personally reviewed this study, and had reviewed and/or edited this written report and agrees with it. Electronically signed by: Pat Ibarra M.D. Narrative 05/11/2024 12:12 PM RESPIRATORY CARE PROGRAM DIRECTOR EXAMINATION: RADIOLOGY CONSULTATION ON OUTSIDE IMAGING STUDY STUDY INITIALLY PERFORMED: 05/10/2024 at [facility]. TYPE OF STUDY: Multiple CT images of [...] IMAGING STUDY STUDY INITIALLY PERFORMED: 05/10/2024 at [facility]. TYPE OF STUDY: Multiple CT images of [...] images may or may not represent the [place] source data set and thus may contain [...] Neuro CT Outside Consult (05/10/2024 6:53 PM RESPIRATORY CARE PROGRAM DIRECTOR) Anatomical Region Laterality Modality N/A Computed Tomogra phy 05/10/2024 8:25 PM RESPIRATORY CARE PROGRAM DIRECTOR Impressions 05/11/2024 12:12 PM RESPIRATORY CARE PROGRAM DIRECTOR 1. No acute intracranial hemorrhage. Left frontal [...] images may or may not represent the [place] source data set and thus may contain changes that may lower the accuracy of this second-opinion interpretation. Dictated by: Damien Holt MD The radiology attending physician has personally reviewed this study, and had reviewed and/or edited this written report and agrees with it. Electronically signed by: Pat Ibarra M.D. Narrative 05/11/2024 12:12 PM RESPIRATORY CARE PROGRAM DIRECTOR EXAMINATION: RADIOLOGY CONSULTATION ON OUTSIDE IMAGING STUDY STUDY INITIALLY PERFORMED: 05/10/2024 at [facility]. TYPE OF STUDY: Multiple CT images of [...] IMAGING STUDY STUDY INITIALLY PERFORMED: 05/10/2024 at [facility]. TYPE OF STUDY: Multiple CT images of [...] images may or may not represent the [place] source data set and thus may contain changes that may lower the accuracy of this second-opinion interpretation. Dictated by: Damien Holt MD The radiology attending physician has personally reviewed this study, and had reviewed and/or edited this written report and agrees with it. Electronically signed by: Pat Ibarra M.D. Marie Radha Rubio MD IMG CT PROCEDURES Fi nal Result * CT Body Outside Consult (05/10/2024 6:48 PM RESPIRATORY CARE PROGRAM DIRECTOR) Anatomical Region Laterality Modality Body N/A Computed Tomogra phy 05/10/2024 7:55 PM RESPIRATORY CARE PROGRAM DIRECTOR Impressions 05/10/2024 8:12 PM RESPIRATORY CARE PROGRAM DIRECTOR 1. Large left quadriceps hematoma with branches [...] images may or may not represent the [place] source data set and thus may contain [...] Josselin Xavier M.D. Narrative 05/10/2024 8:12 PM RESPIRATORY CARE PROGRAM DIRECTOR EXAMINATION: RADIOLOGY CONSULTATION ON OUTSIDE IMAGING STUDY STUDY INITIALLY PERFORMED: 05/10/2024 at [facility]. TYPE OF STUDY: Multiple CT images of [...] IMAGING STUDY STUDY INITIALLY PERFORMED: 05/10/2024 at [facility]. TYPE OF STUDY: Multiple CT images of [...] images may or may not represent the [place] source data set and thus may contain [...] CT Body Outside Consult (05/10/2024 6:47 PM RESPIRATORY CARE PROGRAM DIRECTOR) Anatomical Region Laterality Modality Body N/A Computed Tomogra phy 05/10/2024 8:59 PM RESPIRATORY CARE PROGRAM DIRECTOR Impressions 05/11/2024 10:15 AM RESPIRATORY CARE PROGRAM DIRECTOR No acute findings in the chest. Expected [...] images may or may not represent the [place] source data set and thus may contain changes that may lower the accuracy of this second-opinion interpretation. Dictated by: Vikash Mccall M.D. The radiology attending physician has personally reviewed this study, and had reviewed and/or edited this written report and agrees with it. Electronically signed by: Brayan Emerson M.D. Narrative 05/11/2024 10:15 AM RESPIRATORY CARE PROGRAM DIRECTOR EXAMINATION: RADIOLOGY CONSULTATION ON OUTSIDE IMAGING STUDY STUDY INITIALLY PERFORMED: 05/10/2024 at [facility]. TYPE OF STUDY: Multiple CT images of [...] IMAGING STUDY STUDY INITIALLY PERFORMED: 05/10/2024 at [facility]. TYPE OF STUDY: Multiple CT images of [...] images may or may not represent the [place] source data set and thus may contain [...] and culture Urine, bladder (05/10/2024 4:53 PM RESPIRATORY CARE PROGRAM DIRECTOR) Color, ur Straw Yellow Clarity, ur Clear Clear [facility] Specific gravity, ur >1.042(H) 1.003 - 1.030 [facility] pH, [facility] 7.5 [facility] Comment: Interpretive Data U rine pH is affected by diet, medications, systemic acid-base disturbances, and renal tubular function. pH may affect urinary stone formation. For example, urine pH below 6.0 may help reduce the tendency for calcium phosphate stones and pH greater than 6.0 may reduce the tendency for uric acid stone formation. Source: [facility] [employer] Current Interpretive Data was last revised on 2017 Protein, ur ql Trace Negative [facility] Glucose, ur ql Negative Negative [facility] Ketones, ur Negative Negative [facility] Bilirubin, ur Negative Negative [facility] Blood, ur Negative Negative [facility] Urobilinogen, ur <2.0 <2.0 mg/dL [facility] Nitrite, ur Negative Negative [facility] Leukocyte esterase, ur Negative Negative [facility] UA reflex comment Reflex conditions for microscopic UA and culture not met. [facility] Urine, bladder 05/10/2024 4: 53 PM RESPIRATORY CARE PROGRAM DIRECTOR 05/10/2024 5:01 PM RESPIRATORY CARE PROGRAM DIRECTOR Paula Mcclellan MD LAB MICROBIOLOGY - GENE RAL ORDERABLES Final Result [facility] [place] [address] * Check Sample (05/10/2024 3:18 PM RESPIRATORY CARE PROGRAM DIRECTOR) ABO Rh O Positive [facility] HCLL OTHER 05/10/2024 3:18 PM RESPIRATORY CARE PROGRAM DIRECTOR 05/10/2024 3:47 PM RESPIRATORY CARE PROGRAM DIRECTOR us Alejandro Soliz III, MD LAB BLOOD ORDER AMARA Final Result Performing Organization Address [facility] Co de Phone Number [facility] M[facility] [place] [address] [facility] * [place] CRITICAL CARE ILL/INJURED PATIENT INIT 30-74 MIN (05/10/2024 3:13 PM RESPIRATORY CARE PROGRAM DIRECTOR) Narrative Alejandro Soliz III, MD - 05/10/2024 3:13 PM RESPIRATORY CARE PROGRAM DIRECTOR Alejandro Soliz III, MD 05/19/2024 6:38 PM [...] and Chemistries, Venous - (05/10/2024 2:50 PM RESPIRATORY CARE PROGRAM DIRECTOR) Pathologist [facility] pH, Boyd POC 7.36 7.32 - 7.43 pCO2, boyd POC 43 40 - 50 mmHg [facility] pO2, boyd POC 20(C) mmHg [facility] Na, POC 124(L) 135 - 145 mmol/L [facility] K POC 5.2(H) 3.3 - 4.9 mmol/L [facility] Comment: Interpretive Data Not all point of care methods assess for hemolysis. Confirm with instrument and retest K+ if not consistent with clinical signs and symptoms. Current Interpretive Data was last revised on 2023. Cl, POC 97 97 - 110 mmol/L [facility] Ionized Ca, POC 4.87 4.50 - 5.10 mg/dL [facility] Glucose, POC 100 70 - 199 mg/dL [facility] Lactate, POC 1.1 0.7 - 2.0 mmol/L [facility] MetHb, Boyd POC <0.1 0.0 - 1.9 % [facility] O2 Sat, Boyd POC (Shayne) 23 % [facility] Base excess, POC -1.2 mmol/L [facility] Hct, POC 29.0(L) 41.4 - 51.6 % [facility] Total Hb, POC 9.5(L) 13.8 - 17.2 g/dL [facility] Blood 05/10/2024 2:50 PM RESPIRATORY CARE PROGRAM DIRECTOR 05/10/2024 2:50 PM RESPIRATORY CARE PROGRAM DIRECTOR us Alejandro Soliz III, MD LAB POCT ORDERA BLES - DEVICE Final Result [facility] Department of Laboratories [place], [place] [id number] * (ABNORMAL) Thromboelastometry Panel - Heparin (05/10/2024 2:47 PM RESPIRATORY CARE PROGRAM DIRECTOR) Pathologist [facility] HEPTEM-CT 129(L) 141 - 215 sec HEPTEM-A5 48 33 - 51 mm [facility] HEPTEM-A10 58 44 - 61 mm [facility] HEPTEM-A20 63 52 - 67 mm [facility] HEPTEM-MCF 63 54 - 69 mm [facility] Blood 05/10/2024 2:47 PM RESPIRATORY CARE PROGRAM DIRECTOR 05/10/2024 2:56 PM RESPIRATORY CARE PROGRAM DIRECTOR Alejandro Soliz III, MD LAB BLOOD ORDER AMARA Edited Result - Final [facility] [place] [address] * (ABNORMAL) Thromboelastometry Panel - Intrinsic (05/10/2024 2:47 PM RESPIRATORY CARE PROGRAM DIRECTOR) Pathologist [facility] INTEM-CT 126(L) 139 - 205 sec INTEM-A5 49 36 - 54 mm [facility] INTEM-A10 59 46 - 63 mm [facility] INTEM-A20 63 53 - 68 mm [facility] INTEM-MCF 63 55 - 70 mm [facility] INTEM-LI60 89(L) 93 - 100 % [facility] INTEM-ML 15(H) 0 - 7 % [facility] Blood 05/10/2024 2:47 PM RESPIRATORY CARE PROGRAM DIRECTOR 05/10/2024 2:56 PM RESPIRATORY CARE PROGRAM DIRECTOR Alejandro Soliz III, MD LAB BLOOD ORDER AMARA Edited Result - Final Performing Organization Address City/[facility]/ZIP Co de Phone Number [facility] [place] [address] * (ABNORMAL) Thromboelastometry Panel - Fibrinogen (05/10/2024 2:47 PM RESPIRATORY CARE PROGRAM DIRECTOR) FIBTEM-A5 22(H) 5 - 16 mm FIBTEM-A10 25(H) 6 - 17 mm [facility] FIBTEM-A20 26(H) 6 - 18 mm [facility] FIBTEM-MCF 26(H) 9 - 19 mm [facility] Blood 05/10/2024 2:47 PM RESPIRATORY CARE PROGRAM DIRECTOR 05/10/2024 2:56 PM RESPIRATORY CARE PROGRAM DIRECTOR Alejandro Soliz III, MD LAB BLOOD ORDER AMARA Edited Result - Final Performing Organization Address [facility] Co de Phone Number [facility] [place] [employer] [place] [address] * (ABNORMAL) Thromboelastometry Panel - Extrinsic (05/10/2024 2:47 PM RESPIRATORY CARE PROGRAM DIRECTOR) EXTEM-CT 101(H) 51 - 73 sec EXTEM-A5 55(H) 33 - 52 mm [facility] EXTEM-A10 65(H) 45 - 62 mm [facility] EXTEM-A20 69 54 - 69 mm CERNER BJ EXTEM-MCF 69 57 - 72 mm CERNER BJ EXTEM-LI60 88(L) 94 - 100 % CERNER BJ EXTEM-ML 16(H) 0 - 6 % CERNER [facility] Blood 05/10/2024 2:47 PM RESPIRATORY CARE PROGRAM DIRECTOR 05/10/2024 2:56 PM RESPIRATORY CARE PROGRAM DIRECTOR Alejandro Soliz III, MD LAB BLOOD ORDER AMARA Edited Result - Final Performing Organization Address City/[facility] de Phone Number [facility] [place] [employer] [place] [address] * eGFR (05/10/2024 2:47 PM RESPIRATORY CARE PROGRAM DIRECTOR) eGFR 74 >=60 mL/min/1. 73 m2 Comment: [...] last reviewed 2021. Blood 05/10/2024 2:47 PM RESPIRATORY CARE PROGRAM DIRECTOR 05/10/2024 2:56 PM RESPIRATORY CARE PROGRAM DIRECTOR us Williams Johnson MD LAB BLOOD ORDERABLES Final Re sult [facility] [place] [address] * Differential, auto (05/10/2024 2:47 PM RESPIRATORY CARE PROGRAM DIRECTOR) Pathologist [facility] Neutrophil abs 4.3 1.5 - 6.5 K/cumm Imm gran abs 0.0 0.0 - 0.1 K/cumm [facility] Lymphocyte abs 0.8 0.8 - 3.3 K/cumm [facility] Monocyte abs 0.8 0.2 - 0.8 K/cumm [facility] Eosinophil abs 0.2 0.0 - 0.5 K/cumm [facility] Basophil abs 0.1 0.0 - 0.1 K/cumm [facility] Neutrophil pct 70.7 % [facility] Comment: Interpretive Data Percent cell count reference ranges are not reported, since discordance with absolute values may lead to misinterpretation of CBC data. Current Interpretive Data was last revised on 2017. Imm gran pct 0.3 % [facility] Comment: Interpretive Data Percent cell count reference ranges are not reported, since discordance with absolute values may lead to misinterpretation of CBC data. Current Interpretive Data was last revised on 2017. Lymphocyte pct 12.4 % [facility] Comment: Interpretive Data Percent cell count reference ranges are not reported, since discordance with absolute values may lead to misinterpretation of CBC data. Current Interpretive Data was last revised on 2017. Monocyte pct 13.0 % [facility] Comment: Interpretive Data Percent cell count reference ranges are not reported, since discordance with absolute values may lead to misinterpretation of CBC data. Current Interpretive Data was last revised on 2017. Eosinophil pct 2.8 % [facility] Comment: Interpretive Data Percent cell count reference ranges are not reported, since discordance with absolute values may lead to misinterpretation of CBC data. Current Interpretive Data was last revised on 2017. Basophil pct 0.8 % [facility] Comment: Interpretive Data Percent cell count reference ranges are not reported, since discordance with absolute values may lead to misinterpretation of CBC data. Current Interpretive Data was last revised on 2017. Blood 05/10/2024 2:47 PM RESPIRATORY CARE PROGRAM DIRECTOR 05/10/2024 2:56 PM RESPIRATORY CARE PROGRAM DIRECTOR us Alejandro Soliz III, MD LAB BLOOD ORDER AMARA Final Result [facility] [place] [address] * (ABNORMAL) CBC with auto differential (05/10/2024 2:47 PM RESPIRATORY CARE PROGRAM DIRECTOR) WBC 6.1 3.8 - 9.9 K/cumm Comment:Code Blue Specimen Hgb 9.3(L) 13.0 - 17.5 g/dL [facility] Hct 26.9(L) 38.9 - 50.3 % [facility] Plt 168 150 - 400 K/cumm [facility] MPV 10.5 9.1 - 12.3 fL [facility] RBC 3.16(L) 4.30 - 5.80 M/cumm [facility] MCV 85.1 81.3 - 96.4 fL [facility] MCH 29.4 27.1 - 33.3 pg [facility] MCHC 34.6 32.3 - 35.7 g/dL [facility] RDW CV 15.7(H) 11.1 - 14.9 % [facility] RDW SD 47.9 35.7 - 48.1 fL [facility] NRBC abs 0.00 0.00 - 0.01 K/cumm [facility] Blood 05/10/2024 2:47 PM RESPIRATORY CARE PROGRAM DIRECTOR 05/10/2024 2:56 PM RESPIRATORY CARE PROGRAM DIRECTOR Alejandro Soliz III, MD LAB BLOOD ORDER AMARA Final Result Performing Organization Address [facility] de Phone Number [facility] [place] [address] * aPTT (05/10/2024 2:47 PM RESPIRATORY CARE PROGRAM DIRECTOR) aPTT 35 28 - 38 sec Comment: Code Blue Specimen Interpretive Data Heparin therapeutic range: 66.0 - 100.0 seconds. Range based on correlation with therapeutic heparin activity range of 0.3 - 0.7 Units/mL. Current interpretive data was last revised on 2022. Blood 05/10/2024 2:47 PM RESPIRATORY CARE PROGRAM DIRECTOR 05/10/2024 2:56 PM RESPIRATORY CARE PROGRAM DIRECTOR Alejandro Soliz III, MD LAB BLOOD ORDER AMARA Final Result Performing Organization Address [facility] de Phone Number [facility] [place] [employer] [place] [address] * (ABNORMAL) Protime-INR (05/10/2024 2:47 PM RESPIRATORY CARE PROGRAM DIRECTOR) PT 19.7(H) 9.7 - 13.0 sec Comment:Code Blue Specimen INR 1.80(H) 0.90 - 1.20 [facility] Comment: Code Blue Specimen Interpretive data Oral anticoagulant therapeutic ranges: Venous thromboembolism prophylaxis or treatment: 2.0-3.0 CARDIOLOGY Standard range: 2.0-3.0 High-intensity range: 2.5-3.5 Refer to indication-specific guidelines for appropriate target ranges for prosthetic heart valve replacement. Current interpretive data was last revised on 2019. Blood 05/10/2024 2:47 PM RESPIRATORY CARE PROGRAM DIRECTOR 05/10/2024 2:56 PM RESPIRATORY CARE PROGRAM DIRECTOR Alejandro Soliz III, MD LAB BLOOD ORDER AMARA Final Result Performing Organization Address [facility] Co de Phone Number [facility] [place] [address] * Type and screen (05/10/2024 2:47 PM RESPIRATORY CARE PROGRAM DIRECTOR) Pathologist [facility] Alex, indirect Negative ABO Rh O Positive [facility] Blood 05/10/2024 2:47 PM RESPIRATORY CARE PROGRAM DIRECTOR 05/10/2024 2:59 PM RESPIRATORY CARE PROGRAM DIRECTOR Narrative [facility] - 05/10/2024 3:57 PM RESPIRATORY CARE PROGRAM DIRECTOR Has the patient had Daratumumab or Isatuximab in the past 6 months?->Unknown Alejandro Soliz III, MD LAB BLOOD BANK TEST ORDERABLES Final Result Performing Organization Address [facility] [place] [address] * Ethanol (05/10/2024 2:47 PM RESPIRATORY CARE PROGRAM DIRECTOR) Pathologist [facility] Ethanol <10 <=10 mg/dL Comment: Code Blue Specimen Interpretive Data Legal limit of intoxication > or = 80 mg/dL Levels > or = 400 mg/dL are potentially TOXIC. Current interpretive data was last revised on 2018. Blood 05/10/2024 2:47 PM RESPIRATORY CARE PROGRAM DIRECTOR 05/10/2024 2:56 PM RESPIRATORY CARE PROGRAM DIRECTOR Alejandro Soliz III, MD LAB BLOOD ORDER AMARA Final Result Performing Organization Address [facility] Co de Phone Number [facility] [place] [address] * (ABNORMAL) Comprehensive metabolic panel (05/10/2024 2:47 PM RESPIRATORY CARE PROGRAM DIRECTOR) [facility] Sodium 124(L) 135 - 145 mmol/L Potassium, pl 5.4(H) 3.3 - 4.9 mmol/L [facility] Comment:Hemolyzed; Potassium value may be falsely elevated by as much as 0.6-1.0 mmol/L. Suggest redraw and reanalysis. Chloride 92(L) 97 - 110 mmol/L [facility] CO2 23 22 - 32 mmol/L [facility] Anion gap 9 2 - 15 mmol/L [facility] BUN 19 6 - 25 mg/dL [facility] Creatinine 1.00 0.80 - 1.30 mg/dL [facility] Glucose 92 70 - 199 mg/dL [facility] Comment: Interpretive Data Fasting glucose >/= 126 [...] 2022. Calcium 8.7 8.5 - 10.3 mg/dL [facility] Bilirubin, total 0.5 0.1 - 1.2 mg/dL [facility] Protein, pl 6.4(L) 6.5 - 8.5 g/dL [facility] Albumin 3.4(L) 3.5 - 5.0 g/dL [facility] Alk phos 114 40 - 130 Units/L [facility] ALT 26 7 - 55 Units/L [facility] AST 57(H) 10 - 50 Units/L [facility] Comment:Hemolyzed; result ma y be falsely elevated Blood 05/10/2024 2:47 PM RESPIRATORY CARE PROGRAM DIRECTOR 05/10/2024 2:56 PM RESPIRATORY CARE PROGRAM DIRECTOR us Williams Johnson MD LAB BLOOD ORDERABLES Final Re sult [facility] [place] [address] * MCT Mobile Cardiac Telemetry Event Monitor (04/20/2024 2:53 PM RESPIRATORY CARE PROGRAM DIRECTOR) Anatomical Region Laterality Modality Electrocardiogra phy 05/19/2024 11:5 9 PM RESPIRATORY CARE PROGRAM DIRECTOR Narrative 05/26/2024 9:00 AM CDT [facility] [address] [place] [address] CARDIAC EVENT MONITOR REPORT Patient Name: GIAN LEE E : 1940 (83y 9m) Gender: M Study Date: 05/19/2024 11:59:00 PM Ht(Inch): Wt(Lb): BSA: Tech: KRISTEN Location: [id number] Order Provider: KLAUS HUMPHREY BMI: Ref Provider: KLAUS HUMPHREY PROCEDURES: Cardiac Event Monitor: Cardiac Event Monitor. INDICATIONS: I48.0 Paroxysmal atrial fibrillation. MEASUREMENTS: Holter Data Value Min Rate: 36 BPM Min Rate Timestamp: 07:36:00 Max Rate: 116 BPM Max Rate Timestamp: 09:10:00 Mean Rate: 59 BPM Holter Data Value FINDINGS: Protocol: Total QRS: 0 Date Recorded: 2024-05-19 23:59:00 Date Processed: 2024-05-19 23:59:00 Forensic Science Examiner: KRISTEN Study Quality: Study quality is good. [...] Note Klaus Humphrey MD PhD - 05/26/2024 [place] [address] [place] [address] CARDIAC EVENT MONITOR REPORT Patient Name: GIAN LEE E : 1940 (83y 9m) Gender: M Study Date: 05/19/2024 11:59:00 PM Ht(Inch): Wt(Lb): BSA: Tech: [facility] Location: [address] Order Provider: KLAUS HUMPHREY BMI: Ref Provider: KLAUS HUMPHREY PROCEDURES: Cardiac Event Monitor: Cardiac Event Monitor. INDICATIONS: I48.0 Paroxysmal atrial fibrillation. MEASUREMENTS: Holter Data Value Min Rate: 36 BPM Min Rate Timestamp: 07:36:00 Max Rate: 116 BPM Max Rate Timestamp: 09:10:00 Mean Rate: 59 BPM Holter Data Value FINDINGS: Protocol: Total QRS: 0 Date Recorded: 2024-05-19 23:59:00 Date Processed: 2024-05-19 23:59:00 Forensic Science Examiner: KRISTEN Study Quality: Study quality is good. [...] Klaus Humphrey MD PhD [facility] [place] OCEDURES Final Result * eGFR (04/20/2024 12:20 AM RESPIRATORY CARE PROGRAM DIRECTOR) eGFR 71 >=60 mL/min/1. 73 m2 Comment: [...] reviewed 2021. Blood 04/20/2024 12:2 0 AM RESPIRATORY CARE PROGRAM DIRECTOR 04/20/2024 12:48 AM RESPIRATORY CARE PROGRAM DIRECTOR Louann Conti MD LAB BLOOD ORDERABLES F inal Result Performing Organization Address [facility]/ZIP Co de Phone Number [facility] [address] [facility] [employer] [place], [place] [id number] * Magnesium (04/20/2024 12:20 AM RESPIRATORY CARE PROGRAM DIRECTOR) Pathologist [facility] Magnesium 2.2 1.4 - 2.5 mg/dL Blood 04/20/2024 12:2 0 AM RESPIRATORY CARE PROGRAM DIRECTOR 04/20/2024 12:48 AM RESPIRATORY CARE PROGRAM DIRECTOR Louann Conti MD LAB BLOOD ORDERABLES F inal Result Performing Organization Address City/[facility] Co de Phone Number [facility] [address] [place], [place] [id number] * (ABNORMAL) Renal function panel (04/20/2024 12:20 AM RESPIRATORY CARE PROGRAM DIRECTOR) Sodium 138 135 - 145 mmol/L Potassium, pl 4.3 3.3 - 4.9 mmol/L [facility] Chloride 102 97 - 110 mmol/L [facility] CO2 26 22 - 32 mmol/L [facility] Anion gap 10 2 - 15 mmol/L [facility] BUN 26(H) 6 - 25 mg/dL [facility] Creatinine 1.04 0.80 - 1.30 mg/dL [facility] Glucose 119 70 - 199 mg/dL [facility] Comment: Interpretive Data Fasting glucose >/= 126 [...] 2022. Calcium 8.5 8.5 - 10.3 mg/dL [facility] Phosphorus, pl 2.9 2.3 - 4.5 mg/dL [facility] Albumin 3.5 3.5 - 5.0 g/dL [facility] Blood 04/20/2024 12:2 0 AM RESPIRATORY CARE PROGRAM DIRECTOR 04/20/2024 12:48 AM RESPIRATORY CARE PROGRAM DIRECTOR us Louann Conti MD LAB BLOOD ORDERABLES F inal Result [facility] [address] [place] [address] * eGFR (04/19/2024 12:41 AM RESPIRATORY CARE PROGRAM DIRECTOR) eGFR 72 >=60 mL/min/1. 73 m2 Comment: [...] reviewed 2021. Blood 04/19/2024 12:4 1 AM RESPIRATORY CARE PROGRAM DIRECTOR 04/19/2024 12:56 AM RESPIRATORY CARE PROGRAM DIRECTOR Louann Conti MD LAB BLOOD ORDERABLES F inal Result Performing Organization Address City/[facility] Co de Phone Number [facility] [address] [facility] [employer] [place] [address] * Magnesium (04/19/2024 12:41 AM RESPIRATORY CARE PROGRAM DIRECTOR) [facility] Magnesium 2.3 1.4 - 2.5 mg/dL Blood 04/19/2024 12:4 1 AM RESPIRATORY CARE PROGRAM DIRECTOR 04/19/2024 12:56 AM RESPIRATORY CARE PROGRAM DIRECTOR Louann Conti MD LAB BLOOD ORDERABLES F inal Result Performing Organization Address [facility] Phone Number [facility] [address] [facility] [place] [address] * (ABNORMAL) Renal function panel (04/19/2024 12:41 AM RESPIRATORY CARE PROGRAM DIRECTOR) [facility] Sodium 138 135 - 145 mmol/L Potassium, pl 4.6 3.3 - 4.9 mmol/L [facility] Chloride 103 97 - 110 mmol/L [facility] CO2 26 22 - 32 mmol/L [facility] Anion gap 9 2 - 15 mmol/L [facility] BUN 31(H) 6 - 25 mg/dL [facility] Creatinine 1.02 0.80 - 1.30 mg/dL [facility] Glucose 97 70 - 199 mg/dL [facility] Comment: Interpretive Data Fasting glucose >/= 126 [...] 2022. Calcium 8.6 8.5 - 10.3 mg/dL [facility] Phosphorus, pl 3.0 2.3 - 4.5 mg/dL [facility] Albumin 3.5 3.5 - 5.0 g/dL [facility] Blood 04/19/2024 12:4 1 AM RESPIRATORY CARE PROGRAM DIRECTOR 04/19/2024 12:56 AM RESPIRATORY CARE PROGRAM DIRECTOR Louann Conti MD LAB BLOOD ORDERABLES F inal Result Performing Organization Address City/[facility]/ZIP Co de Phone Number [facility] [address] [place] [address] * ECG 12 lead (04/18/2024 10:45 AM RESPIRATORY CARE PROGRAM DIRECTOR) 04/18/2024 10:4 5 AM RESPIRATORY CARE PROGRAM DIRECTOR Narrative [facility] - 04/18/2024 1:35 PM RESPIRATORY CARE PROGRAM DIRECTOR Vent Rate: 66 bpm RR Interval: 897 msec [place] Interval: 0 msec QRS Duration: 91 msec QT Interval: 251 msec QTC Interval: 265 msec P-R-T [place]: 0 - 12 - 0 degrees IMPRESSION: ATRIAL FIBRILLATION NONSPECIFIC ST \T\ T-WAVE ABNORMALITY ABNORMAL RHYTHM ECG Electronically Signed By: Klaus Humphrey MD PhD us Klaus Humphrey MD PhD ECG ORDERABLES Final Result Performing Organization Address [facility] Co de Phone Number [facility] * ECG 12 lead (04/18/2024 7:41 AM RESPIRATORY CARE PROGRAM DIRECTOR) 04/18/2024 7:41 AM RESPIRATORY CARE PROGRAM DIRECTOR Narrative [facility] - 04/18/2024 7:53 AM RESPIRATORY CARE PROGRAM DIRECTOR Vent Rate: 65 bpm RR Interval: 921 msec [place] Interval: 0 msec QRS Duration: 101 msec QT Interval: 442 msec QTC Interval: 453 msec P-R-T [place]: 0 - 2 - 10 degrees IMPRESSION: ATRIAL FIBRILLATION NONSPECIFIC T-WAVE ABNORMALITY ABNORMAL RHYTHM ECG Electronically Signed By: Klaus Humphrey MD PhD us Louann Conti MD ECG ORDERABLES Final Result Performing Organization Address [facility] Co de Phone Number [facility] * ECG 12 lead (04/18/2024 3:01 AM RESPIRATORY CARE PROGRAM DIRECTOR) 04/18/2024 3:01 AM RESPIRATORY CARE PROGRAM DIRECTOR Narrative [facility] - 04/18/2024 7:57 AM RESPIRATORY CARE PROGRAM DIRECTOR Vent Rate: 64 bpm RR Interval: 930 msec [place] Interval: 0 msec QRS Duration: 94 msec QT Interval: 441 msec QTC Interval: 451 msec P-R-T [place]: 0 - -4 - -36 degrees IMPRESSION: ATRIAL FIBRILLATION INFERIOR MYOCARDIAL INFARCTION , PROBABLY OLD WITH POSTERIOR EXTENSION ABNORMAL ECG Electronically Signed By: Klaus Humphrey MD PhD us Cristino Houser Jr., PA ECG ORDERABLES Final Result Performing Organization Address [facility] Co de Phone Number [facility] * eGFR (04/18/2024 12:24 AM RESPIRATORY CARE PROGRAM DIRECTOR) eGFR 69 >=60 mL/min/1. 73 m2 Comment: [...] reviewed 2021. Blood 04/18/2024 12:2 4 AM RESPIRATORY CARE PROGRAM DIRECTOR 04/18/2024 12:44 AM RESPIRATORY CARE PROGRAM DIRECTOR us Louann Conti MD LAB BLOOD ORDERABLES F inal Result [facility] [address] [place] [address] * Magnesium (04/18/2024 12:24 AM RESPIRATORY CARE PROGRAM DIRECTOR) Pathologist [facility] Magnesium 2.4 1.4 - 2.5 mg/dL Blood 04/18/2024 12:2 4 AM RESPIRATORY CARE PROGRAM DIRECTOR 04/18/2024 12:44 AM RESPIRATORY CARE PROGRAM DIRECTOR us Louann Conti MD LAB BLOOD ORDERABLES F inal Result Performing Organization Address [facility] Co de Phone Number [facility] [address] [place] [address] * (ABNORMAL) Renal function panel (04/18/2024 12:24 AM RESPIRATORY CARE PROGRAM DIRECTOR) [facility] Sodium 137 135 - 145 mmol/L Potassium, pl 4.3 3.3 - 4.9 mmol/L [facility] Chloride 101 97 - 110 mmol/L [facility] CO2 25 22 - 32 mmol/L [facility] Anion gap 11 2 - 15 mmol/L [facility] BUN 37(H) 6 - 25 mg/dL [facility] Creatinine 1.06 0.80 - 1.30 mg/dL [facility] Glucose 102 70 - 199 mg/dL [facility] Comment: Interpretive Data Fasting glucose >/= 126 [...] 2022. Calcium 8.9 8.5 - 10.3 mg/dL [facility] Phosphorus, pl 2.9 2.3 - 4.5 mg/dL [facility] Albumin 3.8 3.5 - 5.0 g/dL [facility] Blood 04/18/2024 12:2 4 AM RESPIRATORY CARE PROGRAM DIRECTOR 04/18/2024 12:44 AM RESPIRATORY CARE PROGRAM DIRECTOR Louann Conti MD LAB BLOOD ORDERABLES F inal Result [facility] [address] [place] [address] * EGD (04/16/2024 7:56 AM RESPIRATORY CARE PROGRAM DIRECTOR) Anatomical Region Laterality Modality Other Narrative Procedure Note Roderick Bedolla MD - 04/16/2024 7:56 AM CST ENDOSCOPY LAB Patient Name: Gian Lee Procedure Date: 04/16/2024 7:56 AM Admit Type: Inpatient Room: [facility] Date of : 1940 Instrument [...] Final Result * eGFR (04/15/2024 12:25 AM RESPIRATORY CARE PROGRAM DIRECTOR) eGFR 61 >=60 mL/min/1. 73 m2 Comment: [...] reviewed 2021. Blood 04/15/2024 12:2 5 AM RESPIRATORY CARE PROGRAM DIRECTOR 04/15/2024 12:48 AM RESPIRATORY CARE PROGRAM DIRECTOR us Louann Conti MD LAB BLOOD ORDERABLES F inal Result [facility] [address] [place] [address] * (ABNORMAL) Protime-INR (04/15/2024 12:25 AM RESPIRATORY CARE PROGRAM DIRECTOR) PT 16.8(H) 9.7 - 13.0 sec INR 1.54(H) 0.90 - 1.20 [facility] Comment: Interpretive data Oral anticoagulant therapeutic ranges: Venous thromboembolism prophylaxis or treatment: 2.0-3.0 CARDIOLOGY Standard range: 2.0-3.0 High-intensity range: 2.5-3.5 Refer to indication-specific guidelines for appropriate target ranges for prosthetic heart valve replacement. Current interpretive data was last revised on 2019. Blood 04/15/2024 12:2 5 AM RESPIRATORY CARE PROGRAM DIRECTOR 04/15/2024 12:48 AM RESPIRATORY CARE PROGRAM DIRECTOR Jaycee SOLIS LAB BLOOD ORDERABLES Final Re sult Performing Organization Address [facility] Co de Phone Number [facility] [address] [place] [address] * (ABNORMAL) Renal function panel (04/15/2024 12:25 AM RESPIRATORY CARE PROGRAM DIRECTOR) Pathologist [facility] Sodium 140 135 - 145 mmol/L Potassium, pl 4.5 3.3 - 4.9 mmol/L [facility] Chloride 103 97 - 110 mmol/L [facility] CO2 27 22 - 32 mmol/L [facility] Anion gap 10 2 - 15 mmol/L [facility] BUN 27(H) 6 - 25 mg/dL [facility] Creatinine 1.17 0.80 - 1.30 mg/dL [facility] Glucose 103 70 - 199 mg/dL [facility] Comment: Interpretive Data Fasting glucose >/= 126 [...] 2022. Calcium 9.5 8.5 - 10.3 mg/dL [facility] Phosphorus, pl 4.2 2.3 - 4.5 mg/dL [facility] Albumin 3.7 3.5 - 5.0 g/dL [facility] Blood 04/15/2024 12:2 5 AM RESPIRATORY CARE PROGRAM DIRECTOR 04/15/2024 12:48 AM RESPIRATORY CARE PROGRAM DIRECTOR us Louann Conti MD LAB BLOOD ORDERABLES F inal Result [facility] [address] [place] [address] from Last 3 Months Insurance [facility] MEDICARE [facility] FEDERAL Advance Directives For more information, please contact: [phone] * Full Code (Latest Code Status on [...] 8:17 AM 12/19/2023 2:20 PM Care Teams Encoding Clerk Relationship Specialty Start Date End Date Martinez Pace MD [address] [facility] [address] [place], [place] [id number] PCP - General 05/02/16 Dion Abraham MD [address] [place] [address] Referring Physician Cardiology 02/18/24 Basil Adhikari MD [address] [facility] [address] [place] [address] Consulting Physician Cardiothoracic Surgery 02/19/24
--- OUTSIDE RECORDS SUMMARY | 2024-07-14 14:23 | XMS_ITS | Clinical Summary ---
Author Organization [facility] Address [address] [place]: Epic Prelude ADT ZURI BAZAN [place] [id number] Care Team Providers Care Electronic Equipment Repairer Name Role Phone Unavailable Primary Care Provider [...] 45 Tablet 5 10/07/2022 4:17 PM CDT 10/11/19 22 Active Sodium Fluoride (PreviDent 5000 Booster Plus) 1.1 % Paste Use a pea-sized amount once daily. [place] for 2 minutes, spit excess. No rinsing, eating, or drinking for 30 minutes after. 100 mL 11/15/2021 2:52 PM CDT 11/14/19 22 Active latanoprost (XALATAN) 0.005 % solution Instill 1 drop in both eyes every night at bedtime 2.5 mL 11 07/10/2022 4:50 PM CDT 12/12/19 22 Active predniSONE (DELTASONE) 10 mg tablet Take 1 tablet by mouth three times daily for 3 days, then 1 tablet by mouth twice daily for 2 days, then 1 tablet daily for 1 day. 14 Tablet 1 01/24/2022 5:00 PM HARVESTER OPERATOR 01/25/20 22 Active Sodium Fluoride (PreviDent 5000 Booster Plus) 1.1 % Paste USE A PEA SIZE AMOUNT TO BRUSH FOR 2 MINUTES THEN SPIT IT OUT. NO EATING, DRINKING OR RINSING FOR 30 MINUTES AFTER BRUSHING. 100 mL 02/15/2022 1:28 PM HARVESTER OPERATOR 02/15/20 22 Active benzonatate (TESSALON) 100 mg [...] at bedtime 45 Tablet 04/01/2022 2:27 PM HARVESTER OPERATOR 03/31/19 23 Active mirtazapine (REMERON) 15 mg tablet Take 1.5 Tablets (22.5 mg) by mouth daily at bedtime. 45 Tablet 4 11/08/2022 4:01 PM CDT 04/26/19 23 Active rosuvastatin (Crestor) 10 mg tablet Take 1 Tablet (10 mg) by mouth daily. 90 Tablet 3 03/21/2023 5:07 PM HARVESTER OPERATOR 07/11/19 23 Active cyanocobalamin, vitamin B-12, 1,000 mcg Capsule Take 1 capsule by mouth once a day 100 Capsule 3 07/11/19 23 Active mirtazapine (REMERON) 15 mg tablet Take 1.5 Tablets (22.5 mg) by mouth daily at bedtime. 45 Tablet 11/09/19 23 Active mirtazapine (REMERON) 15 mg tablet Take 1 and 1/2 tablets by mouth at bedtime 45 Tablet 5 05/13/2023 11:21 AM HARVESTER OPERATOR 12/11/19 23 Active Sodium Fluoride (PreviDent 5000 Booster Plus) 1.1 % Paste [place] with pea-sized amount once daily. [place] for 2 minutes and spit out excess. No eating, drinking, or rinsing for 30 minutes after. 100 mL 01/02/2023 10:15 AM CDT 12/31/19 23 Active venlafaxine (EFFEXOR XR) 75 mg Extended Release 24 hour capsule Take 1 Capsule (75 mg) by mouth daily. 30 Capsule 04/02/19 24 Active benzonatate (TESSALON) 100 mg capsule Take 1 Capsule (100 mg) by mouth 3 times daily as needed for congestion. 30 Capsule 05/08/2023 12:26 PM HARVESTER OPERATOR 05/07/19 24 Active levothyroxine 75 mcg tablet Take 1 Tablet (75 mcg) by mouth daily. 90 Tablet 3 02/07/2024 1:18 PM HARVESTER OPERATOR 05/15/19 24 Active sodium bicarbonate 650 mg tablet Take 1 tablet by mouth twice a day 60 Tablet 05/21/2023 2:28 PM HARVESTER OPERATOR 05/21/19 24 Active busPIRone (BUSPAR) 5 mg tablet Take 1 Tablet (5 mg) by mouth 2 times daily. 60 Tablet 06/16/2023 2:06 PM CDT 06/09/19 24 Active mirtazapine (REMERON) 15 mg tablet Take 1.5 tablets by mouth daily at bedtime 135 Tablet 2023 7:49 PM CDT 06/10/19 24 Active Sodium Fluoride (PreviDent 5000 Booster Plus) 1.1 % Paste FOLLOW PACKAGE INSTRUCTIONS 100 mL 1 07/25/2023 4:19 PM CDT 07/23/19 24 025 Active cyanocobalamin 1,000 mcg Tablet Take 1 Tablet (1,000 mcg) by mouth daily. 100 Tablet 3 02/07/2024 1:18 PM HARVESTER OPERATOR 07/25/19 24 Active tamsulosin (FLOMAX) 0.4 mg capsule Take 1 Capsule (0.4 mg) by mouth daily. 30 Capsule 2 09/02/2023 4:25 PM CDT 09/02/19 24 Active phenazopyridine 200 mg tablet Take 1 Tablet (200 mg) by mouth 3 times daily as needed for pain for 7 days. 21 Tablet 10/11/2023 2:33 PM CDT 10/11/19 24 Active trospium (SANCTURA) 20 mg Tablet Take 1 Tablet (20 mg) by mouth daily at bedtime. 30 Tablet 5 03/12/2024 4:49 PM HARVESTER OPERATOR 10/14/19 24 Active peg 3350-electrolyt es (GOLYTELY) 236-22.74-6.74 -5.86 gram Recon Soln Take 4,000 mL by mouth once for 1 dose. Follow directions given to you by prescriber. 4000 mL 11/08/2023 3:01 PM CDT 11/03/19 24 Active latanoprost (XALATAN) 0.005 % solution Administer 1 drop in both eyes daily at bedtime. 2.5 mL 11 11/15/2023 11:59 AM CDT 11/14/19 24 Active traMADoL (ULTRAM) 50 mg tablet Take 1 Tablet (50 mg) by mouth 2 times daily as needed FOR PAIN. 14 Tablet 11/20/2023 10:33 AM CDT 11/18/19 24 Active tamsulosin (FLOMAX) 0.4 mg capsule Take 2 Capsules (0.8 mg) by mouth daily at bedtime. 60 Capsule 1 12/01/19 24 Active vibegron 75 mg Tablet Take 1 Tablet by mouth daily. 30 Tablet 3 03/05/2024 2:05 PM HARVESTER OPERATOR 12/09/19 24 Active sacubitriL-vals brian (Entresto) 24-26 mg Tablet TAKE 1 TABLET BY MOUTH TWICE A DAY 180 Tablet 3 03/12/2024 4:49 PM HARVESTER OPERATOR 01/14/20 24 Active Sodium Fluoride 1.1 % Paste Apply to the teeth daily at nightime or as directed 100 mL 1 02/05/2024 3:07 PM HARVESTER OPERATOR 02/03/20 24 Active rosuvastatin (CRESTOR) 10 mg tablet Take 1 Tablet (10 mg) by mouth daily. 90 Tablet 2 02/06/20 24 Active tadalafiL (CIALIS) 20 mg tablet Take 1 tablet by mouth as needed 30 minutes before sexual activity. Do not use more than 1 dose in 24 hours. 10 Tablet 3 06/26/2024 3:30 PM CDT 02/18/20 24 Active rivaroxaban (Xarelto) 10 mg Tablet Take 1 Tablet (10 mg) by mouth daily. 30 Tablet 03/05/2024 2:05 PM HARVESTER OPERATOR 03/04/20 24 Active busPIRone (BUSPAR) 5 mg tablet Take 1 Tablet (5 mg) by mouth 2 times daily. 180 Tablet 1 03/08/20 24 Active mirtazapine (REMERON) 15 mg tablet Take 1.5 Tablets (22.5 mg) by mouth daily at bedtime. 135 Tablet 1 03/23/2024 2:57 PM HARVESTER OPERATOR 03/08/20 24 Active apixaban (Eliquis) 5 mg tablet Administer 1 tablet (5 mg total) per feeding tube every 12 (twelve) hours 60 Tablet 04/29/2024 2:11 PM HARVESTER OPERATOR 04/20/19 25 Active levothyroxine 88 mcg tablet Take 1 tablet (88 mcg total) by mouth in the director of early childhood before breakfast 30 Tablet 04/29/2024 2:11 PM HARVESTER OPERATOR 04/20/19 25 Active midodrine (PROAMATINE) 5 mg tablet Take 1 tablet (5 mg total) by mouth 3 (three) times a day before meals 90 Tablet 04/29/2024 2:11 PM HARVESTER OPERATOR 04/20/19 25 Active Sodium Chloride 1,000 mg Tablet, Soluble Take 1 tablet (1 g total) by mouth 2 (two) times a day 60 Tablet 04/29/2024 2:11 PM HARVESTER OPERATOR 04/20/19 25 Active amiodarone (CORDARONE) 200 mg tablet Give 1/2 tablet via feeding tube daily 30 Tablet 04/29/19 25 Active aspirin (THADDEUS CHEWABLE) 81 mg Tablet, Chewable Give 1 tablet via feeding tube daily 30 Tablet 04/29/19 25 Active rosuvastatin (CRESTOR) 10 mg tablet Give 2 tablets via feeding tube every morning 30 Tablet 04/29/19 25 Active midodrine (PROAMATINE) 5 mg tablet Give 1 tablet via feeding tube three times daily before meals 90 Tablet 04/29/19 25 Active cyanocobalamin 1,000 mcg Tablet Give 1 tablet via feeding tube daily 30 Tablet 06/17/2024 5:23 PM CDT 04/29/19 25 Active levothyroxine 88 mcg tablet Give 1 Tablet (88 mcg) via feeding tube daily at 0500 30 Tablet 04/29/19 25 Active metoclopramide HCl (REGLAN) 10 mg tablet Give 1/2 tablet (5 mg) via feeding tube every 6 hours 60 Tablet 04/29/2024 2:11 PM HARVESTER OPERATOR 04/29/19 25 Active oxyBUTYnin (DITROPAN) 5 mg tablet Give 1 tablet via feeding tube daily 30 Tablet 04/29/2024 2:11 PM HARVESTER OPERATOR 04/29/19 25 Active mirtazapine (REMERON) 15 mg tablet Give 1.5 tablets via feeding tube bedtime 30 Tablet 04/29/19 25 Active levothyroxine 88 mcg tablet Take 1 Tablet (88 mcg) via feeding tube daily at 5:00. 30 Tablet 5 05/21/2024 11:17 AM HARVESTER OPERATOR 05/03/19 25 Active vibegron (Gemtesa) 75 mg Tablet Take 1 Tablet by mouth daily. 30 Tablet 5 05/29/2024 12:35 PM CDT 05/06/19 25 Active lidocaine (LIDODERM) 5 % Adhesive Patch, Medicated Place 2 patches on the skin daily. Remove & discard patch within 12 hours or as directed by MD. 30 Patch 05/14/2024 3:39 PM HARVESTER OPERATOR 05/13/19 25 Active Sodium Chloride (Safe Wash) 0.9 % Solution Administer per tube 30 mL 6 (six) times a day 1000 mL 1 05/13/19 25 Active rosuvastatin (CRESTOR) 10 mg tablet Take 2 Tablets (20 mg) via feeding tube daily in the morning. 180 Tablet 1 05/22/2024 11:22 AM HARVESTER OPERATOR 05/23/19 25 Active empagliflozin (Jardiance) 10 mg tablet Take 1 Tablet (10 mg) by mouth daily. 90 Tablet 3 06/10/2024 5:01 PM T 06/06/19 25 Active levothyroxine 88 mcg tablet Take 1 tablet by mouth once a day 90 Tablet 3 06/17/2024 5:23 PM CDT 06/06/19 25 Active amiodarone (CORDARONE) 100 mg Tablet Take 1 Tablet (100 mg) by mouth daily. 30 Tablet 2 06/18/2024 2:19 PM CDT 06/18/19 25 Active midodrine (PROAMATINE) 10 mg Tablet Administer 1 tablet via tube three times daily before meals 90 Tablet 2 06/18/2024 2:19 PM T 06/18/19 25 Active Sodium Chloride 1,000 mg Tablet, Soluble Give 1 tablet via feeding tube twice daily 60 Tablet 2 06/17/2024 5:23 PM CDT 06/18/19 25 Active apixaban (Eliquis) 5 mg tablet Give 5 mg via feeding tube every 12 hours 60 Tablet 06/26/2024 3:30 PM CDT 06/27/19 25 Active busPIRone (BUSPAR) 5 mg tablet Take 1 Tablet (5 mg) by mouth 2 times daily. 180 Tablet 06/29/2024 6:12 PM T 06/29/19 25 Active amiodarone (CORDARONE) 100 mg Tablet Take 1 Tablet (100 mg) by mouth daily. 30 Tablet 1 05/21/2024 11:17 AM HARVESTER OPERATOR 04/20/19 25 025 Discontin ued(Reord er) busPIRone (BUSPAR) 10 mg tablet Give 1/2 tablet (5 mg) via feeding tube twice daily 60 Tablet 04/29/2024 2:11 PM HARVESTER OPERATOR 04/29/19 25 025 Discontin ued(Reord er) Sodium Chloride 1,000 mg Tablet, Soluble Give 1 tablet via feeding tube twice daily 60 Tablet 05/26/2024 4:03 PM CDT 04/29/19 25 025 Discontin ued(Reord er) apixaban (Eliquis) 5 mg tablet Give 5 mg via feeding tube every 12 hours 60 Tablet 05/21/2024 11:17 AM HARVESTER OPERATOR 04/29/19 25 025 Discontin ued(Reord er) midodrine (PROAMATINE) 10 mg Tablet Administer 1 tablet via tube three times daily before meals 90 Tablet 05/14/2024 3:39 PM HARVESTER OPERATOR 05/13/19 25 025 Discontin ued(Reord er) Immunizations Immunization Administration Dates Next Due ([facility]12 [facility]) COVID- 19 VACCINE, MRNA, SPIKE PROTEIN, LNP, OFELIA(PF) 30 MCG/0.3 ML IM SUSP 12/01/2023 (PREVNAR 20)(6 WKS UP) PNEUM OCOCCAL CONJUGATE VACCINE 20-VALENT (PCV20), POLYSACCHARIDE OLD891 CONJUGATE, ADJUVANT 0.5 ML (PF) IM 12/01/2023 [...] - 1-dose 75+ series) 07/30/2014 COVID-19 Vaccine (4 - season) 2024 12/01/2023, 05/30/2020, 04/18/2020 PNEUMOCOCCAL VACCINE 50+ YEARS Completed 12/01/2023 INFLUENZA VACCINE Completed 12/22/2023, 12/25/2021 Insurance RX [facility] [employer]UM PROJECT MANAGER, [facility]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
--- NOTE | 2024-07-15 09:31 | REHSTMBS ---
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 He was alert, oriented, and able to follow commands. 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 He currently has a PEG tube but reports that he eats/drinks by mouth and even ate chicken soup for lunch just before this test. The patient thinks his swallowing ability has improved , and he plans on getting the PEG tube removed and eating/drinking by mouth. He denied coughing or choking associated with returning to eating by mouth. Oral mucosa is normal; natural dentition is in good condition; informal oral peripheral exam revealed lingual and labial structures to be WFL. He exhibited a clear vocal quality before testing. The patient was seated for a lateral view and presented with 5 ml of thin liquid barium via a spoon without the chin tuck, 5 ml of thin liquid barium via a spoon with the chin tuck, & pudding consistency barium via a spoon with the chin tuck and use of the supraglottic swallow technique. Oral preparatory and oral phase symptoms: none/WFL . Pharyngeal phase symptoms: absent epiglottic movement/inversion and reduced tongue base retraction which contributed to the severe vallecular residue; reduced laryngeal elevation as evidenced by laryngeal penetration during the swallow and pyriform sinus residue; & reduced laryngeal closure as evidenced by aspiration occurring during the swallow; the pharyngeal residue spilled into the laryngeal vestibule after the swallow and was silently aspirated after. Pt stated he did not feel the aspiration or the residual (which was shown to him on the screen). The pt was verbally cued to cough and dry swallow, but it did not clear all the aspiration or completely clear the residue. Cervical bony protrusions were noted at C3-6 but were not felt to contribute to the dysphagia. Chin tuck and the supraglottic swallow technique were not successful in providing airway protection or reducing the pharyngeal residual. Esophageal stage symptoms: WFL. Impression: severe dysphagia due to the severity of the residual & aspiration as well as it being essentially silent Recommendations: NPO, continue using the PEG tube for nutrition; seek OP speech therapy with therapeutic feeding. Pt and his spouse were extensively educated regarding the results and recommendations as well as the risks of continuing with oral intake, i.e. reoccurrence of aspiration pneumonia.
== END 2024-07-14 13:30 | disposition home or self-care (01) ==
PROVIDERS: PCP Family Medicine; Visit Provider Family Medicine
DX: R13.13 Dysphagia, pharyngeal phase (principal); Y84.4 Aspiration of fluid as the cause of abnormal reaction of the patient, or of later complication, without mention of misadventure at the time of the procedure
CPT/HCPCS: 92611

== ENCOUNTER 2024-08-11 11:16 | Outpatient (CLI) | payer BC, SELFPAY ==
--- NOTE | ~2024-08-11 | XR_ITS ---
Lumbosacral Spine: AP and lateral views Clinical History: Spinal stenosis COMPARISON: 06/04/2022 Findings: There is levoscoliosis, apex at the L2-L3 disc space level. There is mild chronic compressi on fracture deformity of L2. There is advanced degenerative disc narrowing of the lumbar spine. There is severe facet arthropathy throughout the lumbar spine. Vascular stents are noted in the left pelvi s. The sacroiliac joints are normally outlined. Impression: Severe degenerative spondylosis with levoscoliosis, as detailed above. Chronic compression fracture of L2. Reviewed, dictated and finalized at location M. Impression: Severe degenerative spondylosis with levoscoliosis, as detailed above. Chronic compression fracture of L2.
--- OUTSIDE RECORDS SUMMARY | 2024-08-11 11:20 | XMS_ITS | Clinical Summary ---
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
--- OUTSIDE RECORDS SUMMARY | 2024-08-11 11:20 | XMS_ITS | CONTINUITY OF CARE DOCUMENT ---
Author Name meet dsouza Address Unknown Organization [facility] Address [id number] [place] [address] [address] [place] [address] Phone [phone] Care Team Providers Care Clinical Informatics Strategist Name Role Phone Jarad SIEGEL, Dion Unavailable ERIN VAZ MD Unavailable ERIN VAZ MD Unavailable PROBLEMS Condition Status Date Provider Notes Pulmonary [...] of pulmonary embolism active Dion beebe MD Atrial Flutter;nml tsh active Dion Abraham MD AV block, 1st degree;not due drugs; active Dion Abraham MD when in nsr Hypothyroidism active Dion Abraham MD part ial [...] In-person encounter Office Visit Dion Abraham MD [facility] Atrial Flutter;nml tshAV block, 1st degree;not due drugs; - In-person encounter Office Visit Dion Abraham MD [place] [facility] Valvular heart diseaseAtrial Flutter;nml tshAV block, 1st degree;not due drugs;Aneurysm of iliac arteryCAD;CAROTID PLAQUEAortic root aneursymnmAnemia of chronic diseaseabdominal aortic aneurysm (AAA) - In-person encounter Office Visit Fredrick Peña MD [facility] Office - In-person encounter Office Visit Dion Abraham MD [place] [facility] Pulsatile tinnitus, bilateral - In-person encounter Office Visit Dion Abraham MD [facility] Neuropathic painAortic aneurysmTobacco use, quitAortic root aneursymnm - In-person encounter Office Visit Dion Abraham MD [place] [facility] B12 deficiencyAtrial Flutter;nml tshScreeningTobacco use, quitFAMILY HISTORY OF HEART DISEASECerebral atherosclerosisCVA;lacuanr; plaquingProstatismBACK PAIN;CHRONIC - In-person encounter Office Visit Dion Abraham MD [place] [facility] Sleep apneaHistory of deep venous thrombosisHx of pulmonary embolismAtrial Flutter;nml tshAV block, 1st degree;not due drugs;HypothyroidismHyperli pidemia;NEG CRP;lpa 142 - In-person encounter Office Visit Dion Abraham MD [place] [facility] Diastolic CHFB12 deficiencyNeuropathic painValvular heart diseaseAortic aneurysm VITAL SIGNS Date Observation Value Provider Body Mass Index (Ratio) 22.65 kg/m2 Ana Abraham MD blood pressure, diastolic 66 mm[Hg] Kirsten kurtzLogic blood pressure, systolic 97 mm[Hg] Missy [facility] pulse rate 71 /min Carmela Roberts blood pressure, diastolic 66 mm[Hg] Em elodia Roberts blood pressure, systolic 97 mm[Hg] Kathia Roberts oxygen saturation, oximetry 98 % Carmela Roberts weight E&M 149 [lb_av] Carmela Roberts blood pressure, cuff size regular Danii Roberts height E&M 68 [in_i] Carmela Roberts Body Mass Index (Ratio) 22.35 kg/m2 Ana Abraham MD blood pressure, diastolic 70 mm[Hg] Kirsten nkLogtracey blood pressure, systolic 112 mm[Hg] Missy Joseeogic blood pressure, diastolic 70 mm[Hg] An juliannahollierenee Tripathi blood pressure, systolic 112 mm[Hg] Richelle Tripathi oxygen saturation, oximetry 95 % Vivi Tripathi pulse rate 66 /min Vivi Tripathi respiratory rate E&M 12 /min Vivi Tripathi weight E&M 147 [lb_av] Vivi Tripathi height E&M 68 [in_i] Vivi Tripathi blood pressure, cuff size regular Saba esteves Tripathi Body Mass Index (Ratio) 24.84 kg/m2 Renato Belleri BUCKET TURNER weight E&M 163.4 [lb_av] Evan Jonathan blood pressure, diastolic 65 mm[Hg] Riaz pizarro [place] blood pressure, systolic 109 mm[Hg] Kyl dahlia [place] oxygen saturation, oximetry 97 % Evan [place] pulse rate 65 /min Evan Jonathan respiratory rate E&M 14 /min Evan stallworth blood pressure, cuff size regular Riaz pizarro [place] height E&M 68 [in_i] Evan Jonathan Body Mass Index (Ratio) 24.93 kg/m2 Ana Abraham MD blood pressure, diastolic 60 mm[Hg] Manjinder yljared Obey blood pressure, systolic 100 mm[Hg] [facility]nie [facility] blood [facility], cuff size regular [facility]jinder [facility] oxygen saturation, oximetry 92 % Roberta Obey pulse rate 62 /min Roberta Rurj weight E&M 164 [lb_av] Roberta [facility] height E&M 68 [in_i] Roberta Rurj Body Mass Index (Ratio) 24.17 kg/m2 Ana Abraham MD pulse rate 59 /min Deejared Borja blood pressure, cuff size regular Mitchell Borja blood pressure, diastolic 68 mm[Hg] Ta bitha Borja blood pressure, systolic 114 mm[Hg] Tab itha Jonh oxygen saturation, oximetry 97 % Dee Borja weight E&M 159 [lb_av] Dee Borja respiratory rate E&M 12 /min Dee Borja height E&M 68 [in_i] Dee Borja Body Mass Index (Ratio) 25.09 kg/m2 Ana Abraham MD blood pressure, diastolic 62 mm[Hg] Ja rret blood pressure, systolic 120 mm[Hg] Jar ret pulse rate 51 /min Russel blood pressure, cuff size regular Ja et oxygen saturation, oximetry 99 % Russel respiratory rate E&M 14 /min Russel weight E&M 165 [lb_av] Russel er height E&M 68 [in_i] Russel er y Body Mass Index (Ratio) 24.63 kg/m2 Ana Abraham MD blood pressure, diastolic 74 mm[Hg] Kirsten nkLogic blood pressure, systolic 123 mm[Hg] Missy kLogic blood pressure, cuff size regular Ja rret blood pressure, diastolic 74 mm[Hg] Ja rret blood pressure, systolic 123 mm[Hg] Jar ret pulse rate 55 /min Russel oxygen saturation, oximetry 93 % Russel respiratory rate E&M 14 /min Russel weight E&M 162 [lb_av] Russel erda y height E&M 68 [in_i] Russel y Body Mass Index (Ratio) 25.24 kg/m2 Ana Abraham MD blood pressure, diastolic 70 mm[Hg] Li nkLogic blood pressure, systolic 102 mm[Hg] Missy kLogic blood pressure, cuff size regular Ke rri Gruenenfelder blood pressure, diastolic 70 mm[Hg] Casa rri Gruenenfelder blood pressure, systolic 102 mm[Hg] Kayode ri Maryellenelder oxygen saturation, oximetry 96 % Delilah Maryellenelder respiratory rate E&M 12 /min Delilah G ruenenfelder pulse rate 53 /min Delilah Morales lder weight E&M 166 [lb_av] Delilah Carmen lder height E&M 68 [in_i] Delilah Bojorqueze lder ALLERGIES No Known Drug Allergies RESULTS Date Observation Value Provider Reference Range Interpretation Location 3 thyroid stimulating hormone, serum 5.22 u[IU]/mL LinkLogic 0.40-4.50 High 3 calcium, serum 9.4 mg/dL [facility] 8.6-10.3 Normal 3 carbon dioxide, venous blood 28 mmol/L [facility] 20-32 Normal 3 chloride, serum 104 mmol/L [facility] 98-110 Normal 3 potassium, serum 4.7 mmol/L [facility] 3.5-5.3 Normal 3 sodium, serum 139 mmol/L [facility] 135-146 Normal 3 urea nitrogen/creatinine ratio, serum 30 (calc) [facility] 6-22 High 3 creatinine, serum 1.00 mg/dL [facility] 0.70-1.22 Normal 3 urea nitrogen, blood 30 mg/dL [facility] 7-25 High 3 blood glucose, random 71 mg/dL [facility] 65-99 Normal 3 NT-pro BNP 1394 Link[facility] <450 High 9 prothrombin time (patient) 11.9 s LinkLogic [...] 9 Absolute Neutrophil count 2339 cells/mcL Link[facility] 3650-7579 Normal 9 mean platelet volume 11.5 fL [...] 2 Absolute Neutrophil count 2149 cells/mcL [facility] 9423-1135 Normal 2 mean platelet volume 12.4 fL [...] Status Instructions Dates Provider Indications Com ments Eliquis 5 mg tablet active Give 5 mg via feeding tube every 12 hours 2 Evan Castillo sodium chloride 1,000 mg tablet,soluble completed Give 1 tablet via feeding tube twice daily 3 - 0 Dion Abraham MD midodrine 10 mg tablet completed Administer 1/2 tablet via tube three times daily before meals 3 - 0 Dion Abraham MD amiodarone 100 mg tablet completed Take 1 Tablet (100 mg) by mouth daily. 3 - 0 Dion Abraham MD Jardiance 10 mg tablet active TAKE 1 [...] Provider personal history of marijuana use no Carmela Roberts drug use no Carmela Roberts alcohol use, average drinks per day 2 /d Carmela Roberts alcohol use, type gin Carmela Roberts alcohol use yes Carmela Roberts smoking, year quit 1971 Carmela Sujatha n number of years as a smoker 20 a Carmela Roberts smoking history, total pack/day 1.5 ppd Carmela Roberts cigarette use yes Carmela Roberts smoking status Former smoker Carmela Roberts personal history of marijuana use no Dion Abraham MD drug use no Dion Light alcohol use, average drinks per day 2 /d Dion Abraham MD alcohol use, type gin Dion ivy MD alcohol use yes Dion Light smoking, year quit 1971 Dion miller MD number of years as a smoker 20 a Dion Abraham MD smoking history, total pack/day 1.5 ppd Dion Abraham MD cigarette use yes Dion Abraham MD smoking status Former smoker Dion coleman MD number of grandchildren Fredrick Casey Cortez elima Nalluri BUCKET TURNER personal history of marijuana use no Jaylene Nalluri [employer] TURNER drug use no Jaylene Nalluri BUCKET TURNER alcohol use, average drinks per day 2 /d Jaylene Nalluri BUCKET TURNER alcohol use, type gin Jaylene Na lluri BUCKET TURNER alcohol use yes Jaylene Nalluri BUCKET TURNER smoking, year quit 1971 Jaylene N alluri BUCKET TURNER number of years as a smoker 20 a Jaylene Nalluri BUCKET TURNER smoking history, total pack/day 1.5 ppd Jaylene Nalluri BUCKET TURNER cigarette use yes Jaylene Nallur i [employer]CKET TURNER smoking status Former smoker Jaylene Sterling uri BUCKET TURNER personal history of marijuana use no Dion Abraham MD drug use no Dion Serota M D alcohol use, average drinks per day 2 /d Dion Abraham MD alcohol use, type gianabell ivy MD alcohol use yes Dion Serota M D smoking, year quit 1971 Dion miller MD number of years as a smoker 20 a Dion Abraham MD smoking history, total pack/day 1.5 ppd Dion Abraham MD cigarette use yes Dion Abraham MD smoking status Former smoker Dino coleman MD personal history of marijuana use no Dion Abraham MD drug use no Dion Serota M Kuldeep alcohol use, average drinks per day 2 /d Dion Abraham MD alcohol use, type gianabell ivy MD alcohol use yes Dion Serota [...] gianabell ivy MD alcohol use yes Dion Serota M Kuldeep smoking, year quit 1971 Dion miller MD number of years as a smoker 20 a Dion Abraham MD smoking history, total pack/day 1.5 ppd Dion Abraham MD cigarette use yes Dion Abraham MD smoking status Former smoker Dion coleman MD personal history of marijuana use no Verah Bonareri [employer]URNER drug use no Verah Bonareri BUCK[employer] TURNER alcohol use, average drinks per day 2 /d Verah Bonareri [employer]CK[employer] TURNER alcohol use, type gin Vermauricio Janelle reri [employer]CKET [employer]URNER alcohol use yes Verah Bonareri [employer]CK[employer] TURNER smoking, year quit 1971 Sneha Bon areri BUCKET TURNER number of years as a smoker 20 a Verah Bonareri BUCKET TURNER smoking history, total pack/day 1.5 ppd Verah Bonareri [employer]CK[employer] TURNER cigarette use yes Verah Bonareri BUCK[employer] TURNER smoking status Former smoker Sneha Bonare ri BUCKET TURNER drug use no Tara Ventimig juarez AUTOMOBILE RENTAL AGENT alcohol use, type gin Tara Boyd timiglia [employer]OMOBI[employer] RENTAL AGENT alcohol use, average drinks per day 2 /d Tara Ventimiglia AUTOMOBILE RENTAL AGENT alcohol use yes Tara Ventimig juarez AUTOMOBILE RENTAL AGENT number of years as a smoker 20 a Delilah Landeros smoking history, total pack/day 1.5 ppd Delilah Landeros smoking, year quit 1971 Delilah doll cigarette use yes Delilah keane smoking status Former smoker Delilah craig FUNCTIONAL STATUS Date Observation Value Provider HRA, CV Assess/Plan, Angina (inactive) Management Plan continue current therapy Dion Abraham MD Reason Fall Assessme nt not done medical contraindication Carmela Roberts HRA, CV Assess/Plan, Angina (inactive) Management Plan continue current therapy Dion Abraham MD HRA, CV Assess/Plan, Angina (inactive) Management Plan continue current therapy Jaylene Rosenthal NP HRA, CV Assess/Plan, Angina (inactive) Management Plan continue current therapy Dion Abraham MD HRA, CV Assess/Plan, Angina (inactive) Management Plan continue current therapy Dion Abraham MD INSURANCE PROVIDERS Payer name Policy type / Coverage type [place] [employer] party ID [facility] [id number] ADVANCE DIRECTIVES Name Date DISCUSSED - NO DECISION MADE TREATMENT PLAN Date Name Performer [id number],C,add replaceme nt [facility] [id number],C,Will add magen min B12 [facility] [id number],C,R eported history of MVP will do f/u echo [facility] [id number],C,A t 44 mm per echo 2 years ago at [place]. Will do f/u echo for further evalution. continue BP control and statin therapy [facility] [id number],C,F ound on recent imaging at OSH. Patient reports at 3.3cm. We will obtain report. If stable will plan for follow up imaging in a year. Patient BP well controlled at visit today. Will add statin as LDL 110. Taramaryann Montesinos [facility] :pro 1394 ef 52 Dion Abraham MD Cardiology:fu chronic Dion ivy MD Cardiology Dion Abraham MD Cardiology: r epaided 03/2024 fu echo neg Dion Abraham MD Cardiology: s everre pvd dital righ leg B TK Dion Abraham MD Cardiology: 3 .4 Dion Abraham MD Cardiology:shcocke t o sinus last month but flutter came back Dion Abraham MD Cardiology: a vr ok mild mr and tr Dion Abraham MD Cardiology: p ro 3200 ef 52 by echo Dion Abraham MD Cardiology Dion Abraham MD Cardiology: n o gall stone n eg aaa neg egfr, neg a1c and uacr Dion Abraham MD Cardiology: T he patient is using CPAP on a regular basis. The patient has been benefiting from therapy and should continue use. Dion Abraham MD Cardiology Dion Abraham MD :pro 3200 ef 52 by echo Dion [...] 5% dx left alone pos pet score 23554 Dion Abraham MD Cardiology:avr at ti me root repain m ild tr and mod mr and mild ai, pap Dion Abraham MD Cardiology: n o gall stone n eg aaa neg egfr, neg a1c and uacr Dion Abraham MD Cardiology: r epaided 03/2024 fu echo neg Dion Abraham MD Cardiology: a dd replacement therapy Jaylene Nalluri BUCKET TURNER Cardiology: H is updated medication list for this problem includes: Rosuvastatin 10 Mg Tablet (Rosuvastatin) ..... Take 1 tablet by mouth once a day Jaylene Nalluri BUCK[employer] TURNER Cardiology: p ro 328, ef 40 by cath Jaylene Nalluri BUCK[employer] TURNER Cardiology: T he patient is using CPAP on a regular basis. The patient has been benefiting from therapy and should continue use. Jaylene Nalluri BUCK[employer] TURNER Cardiology: s everre pvd dital righ leg B TK Jaylene Nalluri BUCK[employer] TURNER Cardiology:Stable with no angina Jaylene Nalluri BUCKET TURNER Cardiology: 5 [address]Munfakh Cortezelima Nalluri [facility]AYLOR Cardiology: 3 .5 by 4.5 left iliac, neg aaa s chedule for iliac covered stent r isks, and options and complications d/w patient and he is agreeable to proceed Jaylene Zimmermanluri TAYLOR Cardiology Dion Abraham MD Cardiology Dion [...] 2400, posst pet H julius Abraham MD [facility] a and aaa gram Dion Abraham MD [facility] a and aaa gram Dion [...] left iliac, neg aaa Dion Abraham MD Cardiology;[facility] with root aand aaa gram :no gall stone n eg aaa m eg streeed 2020 per pt n eg egfr, neg a1c and uacr Dion Abraham MD Cardiology;[facility] with root a and aaa gram Dion Abraham MD Cardiology;[facility] with root aand aaa gram : 5 .4 Dion Abraham MD Cardiology;[facility] with root aand aaa gram : a ve 56 low 36 t acky braday n svt and svt Dion Abraham MD Cardiology;[facility] with root aand aaa gram : 5 .4 Dion Abraham MD Cardiology;[facility] with root aand aaa gram : s core 2400 pos pet Dion Jarad SIEGEL :score 2800 pos pet Dion Serot a :3.5 by 4.5 left iliac Dion Se rota :5.4 Dion Serota :4.8 Dion Serotjared SIEGEL :2800 Dion Serotjared SIEGEL Cardiology: T he patient is using CPAP [...] NP Cardiology:add replacement thera py Tara Ventimiglia [employer] Cardiology:Will add vitamin B12 Tara Ventimiglia [facility] Cardiology:Reported history of M POT FILLER will do f/u echo Tara Montesinos [facility] Cardiology:At 44 mm per echo 2 years ago at [place]. Will do f/u echo for further evalution. continue BP control and statin therapy Tara Montesinos [facility] Cardiology:Found on recent imaging at OSH. Patient reports at 3.3cm. We will obtain report. If stable will plan for follow up imaging in a year. Patient BP well controlled at visit today. Will add statin as LDL 110. Tara Montesinos [facility] Date Name TSH, 3RD GENERATION PROBNP, N TERMINAL BASIC METABOLIC PANE L W/EGFR Aorta Duplex Ultraso und Arterial - SENSILASE Complete Echo Cardioversion CBC (INCLUDES DIFF/P LT) MAGNESIUM BASIC [...] Procedure Name Provider Procedure Notes S tatus EKG Dion Abraham MD complete d Complex e/m visit ad d on Fredrick Peña MD completed Complex e/m visit ad d on Dion Abraham MD completed Complex e/m visit ad d on Dion Abraham MD completed CT- Coronary CA score Dion Abraham MD completed Complex e/m visit ad d on Dion Abraham MD [10/16/2023 - mpiric] NPR PER MATTHEW REF#: [id number] completed EKG Dion Abraham MD complete d EKG Dion Abraham MD complete d
--- OUTSIDE RECORDS SUMMARY | 2024-08-11 11:20 | XMS_ITS | Encounter Summary ---
Author Organization [facility] Healthcare Address [address] [place] [address] Care Team Providers Care Jackspooler Name Role Phone Martinez Pace MD Primary Care Provider Dion Abraham MD Unavailable [phone] Basil Adhikari MD Unavailable [phone] Encounter Details Date Type Department Care Team (Late st Contact Info) Description 06/11/2017 Telephone [facility] Operating Room [address] [place] [address] Sara Tipton Social History Tobacco Use Types Packs/Day Years Used Date Smoking Tobacco: Former Alcohol Use Standard Drinks/Week Comments Yes 0 (1 standard drink = 0.6 oz pur e alcohol) Sex and Gender Information Value Date Recorded Sex Assigned at Not on file Legal Sex 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 [employer] Gender Identity Not on file Sexual Orientation Straight 10/21/2019 9: 52 AM CDT documented as of this encounter Plan of Treatment Not on file documented as of this encounter Visit Diagnoses Not on filedocumented in this encounter Care Teams Jackspooler Relationship Specialty Start Date End Date Martinez Pace MD [address] [place] [address] PCP - General 05/02/16 Dion Abraham MD [address] [place] [address] Referring Physician Cardiology 02/18/24 Basil Adhikari MD [address] [facility] [address] [place] [address] Consulting Physician Cardiothoracic Surgery 02/19/24 documented as of this encounter
--- OUTSIDE RECORDS SUMMARY | 2024-08-11 11:20 | XMS_ITS ---
Author Organization [facility] Address [address] [place] [address] Care Team Providers Care Surgeon'S Assistant Name Role Phone Martinez Pace MD Primary Care Provider Dion Abraham MD Unavailable [phone] Basil Adhikari MD Unavailable [phone] Active Problems Problem Noted Date Diagnosed Date Abnormal vital signs 05/13/2024 Assessment & Plan (05/13/2024 2:10 PM CLINICAL EVALUATOR): - Two charted HR in the 30s on 05/12 around 0445 AM. No symptoms reported at this time. Patient monitored in PM on 05/12 and 05/13 without observed HR in 30s. Patient reports his heart rate is being monitored by his regional environmental manager Dr. Abraham. Patient had a recent TTE in 03/2024 with mild left ventricular systolic dysfunction, global kypokinesis, EF 50-55%, normal left ventricular cavity size, mild to moderate concentric left ventricular hypertrophy, normal aortic valve appearance and function, normal caliber aortic root. Back pain 05/12/2024 Assessment & Plan (05/12/2024 2:21 PM CLINICAL EVALUATOR): - OSH CT: Multilevel degenerative changes are noted in the spine, including a wedge deformity of the L2 vertebral body. - Lidoderm patch ordered Hematoma of leg, left, initial encounter Assessment & Plan (05/13/2024 1:56 PM CLINICAL EVALUATOR): - CTA overread w/ large L hematoma, [...] 05/11/2024 Assessment & Plan (05/12/2024 11:34 AM CLINICAL EVALUATOR): - Patient reports on Vibegron for penile pain and reports previously tested for UTI which was negative - UA (05/10): neg nitrite, neg LE - will not reflex - G/C, trich urine pending- has not been sent as of 05/12 - Continue oxybutynin while inpatient Hyponatremia 05/11/2024 Assessment & Plan (05/13/2024 1:55 PM CLINICAL EVALUATOR): - Na 124 on admission - Previous [...] 05/11/2024 Assessment & Plan (05/13/2024 1:57 PM CLINICAL EVALUATOR): - 05/11: new admit, monitor Hgb and [...] 05/11/2024 Assessment & Plan (05/13/2024 1:59 PM CLINICAL EVALUATOR): - Hgb trend (05/10): 9.3- 8.7 - Hgb trend (05/11): 8.2- 8.2- 7.8- - Hgb trend (05/12): 7.7- 7.9 - Hgb (05/13): 7.8 - CBC was monitored, no active signs or symptoms of bleeding, hemodynamically unsupported at discharge Fall, initial encounter 05/10/2024 Assessment & Plan (05/11/2024 2:30 PM CLINICAL EVALUATOR): - mechanical fall - hypotensive at OSH, responsive to fluid resuscitation - CT head/spine overread w/o acute intracranial process or fractures, hematoma present correlating w/ exam - Cleared C-spine in ED Hyperkalemia 04/08/2024 Dysphagia 04/07/2024 Assessment & Plan (05/13/2024 3:35 PM CLINICAL EVALUATOR): - s/p G-tube - forestry tree pruner consulted - Tube feeds via PEG, meds via PEG - patient and family support report recent advancement to nectar thick liquids (mostly for comfort) - METALIZING MACHINE OPERATOR AUTOMATIC consult - 05/12: appropriate for MBS, pending - 05/13: MBS to determine if diet can be advanced prior to discharge -- recommend NPO with ice chips - Discharge tube feeds: Isosource 220 ml via g-tube five times daily + 30 ml saline flush via PEG 6 times daily Hypotension 04/06/2024 Assessment & Plan (05/13/2024 1:55 PM CLINICAL EVALUATOR): - Continue home midodrine - 05/11: hypotensive [...] 02/11/2024 Assessment & Plan (05/11/2024 2:31 PM CLINICAL EVALUATOR): #Hx ascending aortic aneurysm sp aortic root replacement (03/18/24) #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 Numbness and tingling of upper extremity 024 Encounter for colonoscopy du e to history of adenomatous colonic polyps 11/03/2023 Cerebral infarction, unspecified 09/10/2023 Assessment & Plan (05/12/2024 11:34 AM CLINICAL EVALUATOR): - Neurology note 04/08/24 recommends transitioning to [...] (11/24/2018): Added automatically from request for surgery [id number] Adenomatous polyp of cecum 06/18/2018 Overview (06/18/2018): Added automatically from request for surgery [id number] long term care social worker current use of anticoagulant therapy 0 11/07/2016 Basal cell carcinoma (BCC) of antihelix of ear 0 04/16/2016 Ascending aortic aneurysm 09/05/2015 Deep vein thrombosis (DVT) 06/22/2015 Assessment & Plan (05/11/2024 2:08 PM CLINICAL EVALUATOR): - On Eliquis - Bilateral foot swelling - BLE duplex (05/11): 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
--- OUTSIDE RECORDS SUMMARY | 2024-08-11 11:20 | XMS_ITS | Clinical Summary ---
Author Organization [facility] Address [address] [place]: Epic Prelude ADT ZURI BAZAN [place] [address] Care Team Providers Care Registered Radiologic Technologist Name Role Phone Unavailable Primary Care Provider [...] Paste Use a pea-sized amount once daily. [place] for 2 minutes, spit excess. No rinsing, [...] day. 14 Tablet 1 2 5:00 PM DISPOSAL OPERATOR 01/25/20 22 Active Sodium Fluoride (PreviDent 5000 Booster Plus) 1.1 % Paste USE A PEA SIZE AMOUNT TO BRUSH FOR 2 MINUTES THEN SPIT IT OUT. NO EATING, DRINKING OR RINSING FOR 30 MINUTES AFTER BRUSHING. 100 mL 2 1:28 PM DISPOSAL OPERATOR 02/15/20 22 Active benzonatate (TESSALON) 100 [...] at bedtime 45 Tablet 3 2:27 PM DISPOSAL OPERATOR 03/31/19 23 Active mirtazapine (REMERON) 15 mg tablet Take 1.5 Tablets (22.5 mg) by mouth daily at bedtime. 45 Tablet 4 3 4:01 PM CDT 04/26/19 23 Active rosuvastatin (Crestor) 10 mg tablet Take 1 Tablet (10 mg) by mouth daily. 90 Tablet 3 4 5:07 PM DISPOSAL OPERATOR 07/11/19 23 Active cyanocobalamin , vitamin B-12, [...] bedtime 45 Tablet 5 4 11:21 AM DISPOSAL OPERATOR 12/11/19 23 Active Sodium Fluoride (PreviDent 5000 Booster Plus) 1.1 % Paste [place] with pea-sized amount once daily. [place] for 2 minutes and spit out excess. [...] for congestion. 30 Capsule 4 12:26 PM DISPOSAL OPERATOR 05/07/19 24 Active levothyroxine 75 mcg tablet Take 1 Tablet (75 mcg) by mouth daily. 90 Tablet 3 4 1:18 PM DISPOSAL OPERATOR 05/15/19 24 Active sodium bicarbonate 650 mg tablet Take 1 tablet by mouth twice a day 60 Tablet 4 2:28 PM DISPOSAL OPERATOR 05/21/19 24 Active busPIRone (BUSPAR) 5 mg tablet Take 1 Tablet (5 mg) by mouth 2 times daily. 60 Tablet 4 2:06 PM CDT 06/09/19 24 Active mirtazapine (REMERON) 15 mg tablet Take 1.5 tablets by mouth daily at bedtime 135 Tablet 4 7:49 PM CDT 06/10/19 24 Active cyanocobalamin 1,000 mcg Tablet Take 1 Tablet (1,000 mcg) by mouth daily. 100 Tablet 3 4 1:18 PM DISPOSAL OPERATOR 07/25/19 24 Active tamsulosin (FLOMAX) 0.4 [...] bedtime. 30 Tablet 5 4 4:49 PM DISPOSAL OPERATOR 10/14/19 24 Active peg 3350-electroly kajal (GOLYTELY) 236-22.74-6.74 -5.86 gram Recon Soln Take 4,000 mL by mouth once for 1 dose. Follow directions given to you by prescriber. 4000 mL 4 3:01 PM CDT 11/03/19 24 Active latanoprost (XALATAN) 0.005 % solution Administer 1 drop in both eyes daily at bedtime. 2.5 mL 11 5 11:24 AM CDT 11/14/19 24 Active traMADoL (ULTRAM) [...] daily. 30 Tablet 3 4 2:05 PM DISPOSAL OPERATOR 12/09/19 24 Active sacubitriL-quinn sartan (Entresto) 24-26 mg Tablet TAKE 1 TABLET BY MOUTH TWICE A DAY 180 Tablet 3 4 4:49 PM DISPOSAL OPERATOR 01/14/20 24 Active Sodium Fluoride 1.1 % Paste Apply to the teeth daily at nightime or as directed 100 mL 1 4 3:07 PM DISPOSAL OPERATOR 02/03/20 24 Active rosuvastatin (CRESTOR) 10 mg tablet Take 1 Tablet (10 mg) by mouth daily. 90 Tablet 2 02/06/20 24 Active tadalafiL (CIALIS) 20 mg tablet Take 1 tablet by mouth as needed 30 minutes before sexual activity. Do not use more than 1 dose in 24 hours. 10 Tablet 3 5 3:30 PM CDT 02/18/20 24 Active rivaroxaban (Xarelto) 10 mg Tablet Take 1 Tablet (10 mg) by mouth daily. 30 Tablet 4 2:05 PM DISPOSAL OPERATOR 03/04/20 24 Active busPIRone (BUSPAR) 5 mg tablet Take 1 Tablet (5 mg) by mouth 2 times daily. 180 Tablet 1 03/08/20 24 Active mirtazapine (REMERON) 15 mg tablet Take 1.5 Tablets (22.5 mg) by mouth daily at bedtime. 135 Tablet 1 5 11:24 AM CDT 03/08/20 24 Active apixaban (Eliquis) 5 mg tablet Administer 1 tablet (5 mg total) per feeding tube every 12 (twelve) hours 60 Tablet 5 2:11 PM DISPOSAL OPERATOR 04/20/19 25 Active levothyroxine 88 mcg tablet Take 1 tablet (88 mcg total) by mouth in the curb and gutter laborer before breakfast 30 Tablet 5 2:11 PM DISPOSAL OPERATOR 04/20/19 25 Active midodrine (PROAMATINE) 5 mg tablet Take 1 tablet (5 mg total) by mouth 3 (three) times a day before meals 90 Tablet 5 2:11 PM DISPOSAL OPERATOR 04/20/19 25 Active Sodium Chloride 1,000 mg Tablet, Soluble Take 1 tablet (1 g total) by mouth 2 (two) times a day 60 Tablet 5 2:11 PM DISPOSAL OPERATOR 04/20/19 25 Active amiodarone (CORDARONE) 200 [...] via feeding tube daily 30 Tablet 5 5:23 PM CDT 04/29/19 25 Active levothyroxine 88 mcg tablet Give 1 Tablet (88 mcg) via feeding tube daily at 0500 30 Tablet 04/29/19 25 Active metoclopramide HCl (REGLAN) 10 mg tablet Give 1/2 tablet (5 mg) via feeding tube every 6 hours 60 Tablet 5 2:11 PM DISPOSAL OPERATOR 04/29/19 25 Active oxyBUTYnin (DITROPAN) 5 mg tablet Give 1 tablet via feeding tube daily 30 Tablet 5 2:11 PM DISPOSAL OPERATOR 04/29/19 25 Active mirtazapine (REMERON) 15 mg tablet Give 1.5 tablets via feeding tube bedtime 30 Tablet 04/29/19 25 Active levothyroxine 88 mcg tablet Take 1 Tablet (88 mcg) via feeding tube daily at 5:00. 30 Tablet 5 5 11:17 AM DISPOSAL OPERATOR 05/03/19 25 Active vibegron (Gemtesa) 75 mg Tablet Take 1 Tablet by mouth daily. 30 Tablet 5 5 2:04 PM CDT 05/06/19 25 Active lidocaine (LIDODERM) 5 % Adhesive Patch, Medicated Place 2 patches on the skin daily. Remove & discard patch within 12 hours or as directed by . 30 Patch 5 3:39 PM DISPOSAL OPERATOR 05/13/19 25 Active Sodium Chloride (Safe Wash) 0.9 % Solution Administer per tube 30 mL 6 (six) times a day 1000 mL 1 05/13/19 25 Active rosuvastatin (CRESTOR) 10 mg tablet Take 2 Tablets (20 mg) via feeding tube daily in the morning. 180 Tablet 1 5 11:22 AM DISPOSAL OPERATOR 05/23/19 25 Active empagliflozin (Jardiance) 10 mg tablet Take 1 Tablet (10 mg) by mouth daily. 90 Tablet 3 5 5:01 PM CDT 06/06/19 25 Active levothyroxine 88 mcg tablet Take 1 tablet by mouth once a day 90 Tablet 3 5 5:23 PM CDT 06/06/19 25 Active amiodarone (CORDARONE) 100 mg Tablet Take 1 Tablet (100 mg) by mouth daily. 30 Tablet 2 5 4:11 PM CDT 06/18/19 25 Active midodrine (PROAMATINE) 10 mg Tablet Administer 1 tablet via tube three times daily before meals 90 Tablet 2 5 2:19 PM CDT 06/18/19 25 Active Sodium Chloride 1,000 mg Tablet, Soluble Give 1 tablet via feeding tube twice daily 60 Tablet 2 5 3:37 PM CDT 06/18/19 25 Active busPIRone (BUSPAR) 5 mg tablet Take 1 Tablet (5 mg) by mouth 2 times daily. 180 Tablet 5 6:12 PM CDT 06/29/19 25 Active apixaban (Eliquis) 5 mg tablet Give 5 mg via feeding tube every 12 hours 60 Tablet 1 5 4:11 PM CDT 07/29/19 25 Active mirtazapine (REMERON) 15 mg tablet Take 1 Tablet (15 mg) by mouth daily at bedtime. 30 Tablet 1 08/07/19 25 Active Sodium Fluoride (PreviDent 5000 Booster Plus) 1.1 % Paste FOLLOW PACKAGE INSTRUCTIONS 100 mL 1 4 4:19 PM CDT 07/23/19 24 025 apixaban (Eliquis) 5 mg tablet Give 5 mg via feeding tube every 12 hours 60 Tablet 5 3:30 PM CDT 06/27/19 025 Discontinued Immunizations Immunization Administration Dates Next Due (COMIRNATY)(12 YR UP) COVID- 19 VACCINE, MRNA, SPIKE PROTEIN, LNP, OFELIA(PF) 30 MCG/0.3 ML IM SUSP 12/01/2023 (PREVNAR 20)(6 WKS UP) PNEUM OCOCCAL CONJUGATE VACCINE 20-VALENT (PCV20), POLYSACCHARIDE IBW954 CONJUGATE, ADJUVANT 0.5 ML (PF) IM 12/01/2023 [...] - 1-dose 75+ series) 07/30/2014 COVID-19 Vaccine (2023- season) 2024 12/01/2023, 05/30/2020, 04/18/2020 PNEUMOCOCCAL VACCINE 50+ YEARS Completed 12/01/2023 INFLUENZA VACCINE Completed 12/22/2023, 12/25/2021 Insurance RX [facility] [employer] [facility] Commercial RX [employer]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
--- OUTSIDE RECORDS SUMMARY | 2024-08-11 11:20 | XMS_ITS | Referral Summary ---
Author Organization [facility] Address [address] [place] [address] Care Team Providers Care Pharmacologist Name Role Phone Martinez Pace MD Primary Care Provider Dion Abraham MD Unavailable [phone] Basil Adhikari MD Unavailable Encounters Date Type Department Care Team Description 07/02/2024 Telephone [facility] [address] [address] Carmela Arrieta Au.D. 07/02/2024 Telephone [facility] [address] [place] [address] Carmela Arrieta Au.D. 06/23/2024 Telephone [facility] [address] [place] [address] Nasra Ruff B.A. 06/23/2024 Orders Only [facility] [address] [place] [address] Devaughn Clement MD Aneurysm of ascending aorta without rupture (Primary Dx) 06/01/2024 Telephone [facility] [address] [place] [address] Scott Osei EP-C CRN Follow Up 05/26/2024 Results Follow-Up [facility] [address] [place] [address] Klaus Humphrey MD PhD MCT Mobile Cardiac Telemetry Event Monitor from Last 3 Months Allergies No known [...] 1 tablet (88 mcg total) by mouth siding stapler before breakfast 30 tablet 5 Active rosuvastatin [...] or as directed by MD. 30 patch Active sodium chloride 0.9 % solution Administer per tube 30 mL 6 (six) times a day 1000 mL 1 5 Active Active Problems Problem Noted Date Diagnosed Date Abnormal vital signs 05/13/2024 Assessment & Plan (05/13/2024 2:10 PM RAILROAD SURVEYOR): - Two charted HR in the 30s on 05/12 around 0445 AM. No symptoms reported at this time. Patient monitored in PM on 05/12 and 05/13 without observed HR in 30s. Patient reports his heart rate is being monitored by his boxcar weigher Dr. Abraham. Patient had a recent TTE in 03/2024 with mild left ventricular systolic dysfunction, global kypokinesis, EF 50-55%, normal left ventricular cavity size, mild to moderate concentric left ventricular hypertrophy, normal aortic valve appearance and function, normal caliber aortic root. Back pain 05/12/2024 Assessment & Plan (05/12/2024 2:21 PM RAILROAD SURVEYOR): - OSH CT: Multilevel degenerative changes are noted in the spine, including a wedge deformity of the L2 vertebral body. - Lidoderm patch ordered Hematoma of leg, left, initial encounter 025 Assessment & Plan (05/13/2024 1:56 PM RAILROAD SURVEYOR): - CTA overread w/ large L hematoma, [...] 05/11/2024 Assessment & Plan (05/12/2024 11:34 AM RAILROAD SURVEYOR): - Patient reports on Vibegron for penile pain and reports previously tested for UTI which was negative - UA (05/10): neg nitrite, neg LE - will not reflex - G/C, trich urine pending- has not been sent as of 05/12 - Continue oxybutynin while inpatient Hyponatremia 05/11/2024 Assessment & Plan (05/13/2024 1:55 PM RAILROAD SURVEYOR): - Na 124 on admission - Previous [...] 05/11/2024 Assessment & Plan (05/13/2024 1:57 PM RAILROAD SURVEYOR): - 05/11: new admit, monitor Hgb and [...] 05/11/2024 Assessment & Plan (05/13/2024 1:59 PM RAILROAD SURVEYOR): - Hgb trend (05/10): 9.3- 8.7 - Hgb trend (05/11): 8.2- 8.2- 7.8- - Hgb trend (05/12): 7.7- 7.9 - Hgb (05/13): 7.8 - CBC was monitored, no active signs or symptoms of bleeding, hemodynamically unsupported at discharge Fall, initial encounter 05/10/2024 Assessment & Plan (05/11/2024 2:30 PM RAILROAD SURVEYOR): - mechanical fall - hypotensive at OSH, responsive to fluid resuscitation - CT head/spine overread w/o acute intracranial process or fractures, hematoma present correlating w/ exam - Cleared C-spine in ED Hyperkalemia 04/08/2024 Dysphagia 04/07/2024 Assessment & Plan (05/13/2024 3:35 PM RAILROAD SURVEYOR): - s/p G-tube - english professor consulted - Tube feeds via PEG, meds via PEG - patient and family support report recent advancement to nectar thick liquids (mostly for comfort) - CONVEYOR WEIGHER OPERATOR consult - 05/12: appropriate for MBS, pending - 05/13: MBS to determine if diet can be advanced prior to discharge -- recommend NPO with ice chips - Discharge tube feeds: Isosource 220 ml via g-tube five times daily + 30 ml saline flush via PEG 6 times daily Hypotension 04/06/2024 Assessment & Plan (05/13/2024 1:55 PM RAILROAD SURVEYOR): - Continue home midodrine - 05/11: hypotensive [...] 02/11/2024 Assessment & Plan (05/11/2024 2:31 PM RAILROAD SURVEYOR): #Hx ascending aortic aneurysm sp aortic root replacement (03/18/24) #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 0 11/07/2016 Basal cell carcinoma (BCC) of antihelix of ear 0 04/16/2016 Ascending aortic aneurysm 09/05/2015 Deep vein thrombosis (DVT) 06/22/2015 Assessment & Plan (05/11/2024 2:08 PM RAILROAD SURVEYOR): - On Eliquis - Bilateral foot swelling - BLE duplex (05/11): 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) Pulmonary embolism 06/22/2015 Thyroid disease Assessment & Plan (05/11/2024 1:48 PM RAILROAD SURVEYOR): - Continue levothyroxine 88 mcg daily Neuropathy Depression Overview (07/18/2017): Depression GARCÍA on CPAP Assessment & Plan (05/11/2024 1:48 PM RAILROAD SURVEYOR): - Patient reports not wearing at this time OA (osteoarthritis) History of pulmonary embolus (PE) Assessment & Plan (05/12/2024 11:30 AM RAILROAD SURVEYOR): #Afib #Embolic stroke, history of - Remote history of PE, recent embolic strokes - Recently switched from Xarelto to Eliquis - 05/12: resume Eliquis, monitor Hgb Immunizations Immunization Administration Dates Next Due Influenza, Unspecified 01/16/2024 Moderna SARS-CoV-2 Monovalen t Vaccination (12+ YRS) 05/30/2020,04/18/2020 Tdap 05/10/2024(Deferred: Other - pt states received at [facility]) Social History Tobacco Use Types Packs/Day Years Used Date Smoking Tobacco: Former Cigarettes 1 12 0 1962 - 1974 Smokeless Tobacco: Never Tobacco Cessation:Counseling Given: Not Answered Alcohol Use Standard Drinks/Week Comments Yes 3 (1 standard drink = 0.6 oz pur e alcohol) 2x a day [facility] Utilities Answer Date Recorded In the past 12 months has e [employer], gas, oil, or water [employer] threatened to shut off services in your [...] often do you attend chur ch or scientology services? Never 05/12/2024 Do you belong to any clubs o r organizations such as mandaen groups, unions, fraternal or athletic groups, or [...] any time in the past 12 m [facility], were you homeless or living in a retirement (including now)? No 05/12/2024 Personal Safety Answer Date Recorded Have you ever been in or are you currently in a harmful physical or emotional relationship or is someone making you feel afraid or unsafe? Denies 05/10/2024 Sex and Gender Information Value Date Recorded Sex Assigned at Not on file Legal Sex Male 12:56 AM RAILROAD SURVEYOR Gender Identity Not on file Sexual Orientation Straight 10/21/2019 9: 52 AM CDT Last Filed Vital Signs Vital Sign Reading Time Taken Comments Blood Pressure 106/57 05/13/2024 3:07 PM RAILROAD SURVEYOR Pulse 56 05/13/2024 3:07 PM RAILROAD SURVEYOR Temperature 36.8 C (98.2 F) 05/13/2024 3:07 PM RAILROAD SURVEYOR Respiratory Rate 16 05/13/2024 3:07 PM RAILROAD SURVEYOR Oxygen Saturation 100% 05/13/2024 3:07 PM RAILROAD SURVEYOR Inhaled Oxygen Concentration - - Weight 63.4 kg (139 lb 12.8 oz) 05/11/2024 2:56 AM RAILROAD SURVEYOR Height 172.7 cm (5' 8) 05/11/2024 2:56 AM RAILROAD SURVEYOR Body Mass Index 21.26 05/11/2024 2:56 AM RAILROAD SURVEYOR Plan of Treatment Not on file Medical Devices Implanted Type Area Art Framing Manager Device Identifier Shelf Expiration Date Model / Serial / Lot Leyva [employer] Konect Resilia Aortic Valved Conduit 27mm [id number] - [id number] - [id number] Implanted:Qty: 1 on 03/18/2024 by Basil Adhikari MD at [facility] Prosthetic Valve N/A: Aortic Valve [employer] 01/06/2027 [id number] / [id number] / [employer] 18f Manta Vascular Closure Device 2115 - S0 - [id number] Implanted:Qty: 1 on 03/22/2024 by Basil Adhikari MD at [facility] Vascular Closure Device [employer] Inc 01/06/20255 / 0 / [id number] Cement Bone Cmw 2 20 Gm Fast Set Sterile - [id number] Implanted:Qty: 1 on 2017 by Brennon Davis MD at [facility] Right: Shoulder [employer] Inc 10/15/2019 [id number] 0 / / [id number] Component Glenoid Comprehensive Regenerex Titanium Clay Porous Shoulder Modular Hybrid Post - [id number] Implanted:Qty: 1 on 2017 by Brennon Davis MD at [facility] Right: Shoulder [employer]av[employer] [id number] 01/21/2027 PT-1139 50 / / [id number] Component Glenoid Comprehensive Hybrid Large H4 Mm Shoulder Base Modular - [id number] Implanted:Qty: 1 on 2017 by Brennon Davis MD at [facility] Right: Shoulder [employer] [id number] 03/23/2022 [id number] / / [id number] Stem Humeral Comprehensive Porous Mini L83 Mm Od15 Mm Shoulder Reverse System - [id number] Implanted:Qty: 1 on 2017 by Brennon Davis MD at [facility] Right: Shoulder [employer] [id number] 04/10/2027 [id number] / / [id number] Head Humeral Bio-Modular [place] 4 Mm Offset H22 Mm Od54 Mm Shoulder Sterile - [id number] Implanted:Qty: 1 on 2017 by Brennon Davis MD at [facility] Right: Shoulder [employer] 08/16/2019 [id number] / / [id number] Cryolife Inc Graft Biological Cardiovascular Photofix 6x8cm Acellular Dermis Pfp 6x8 - [id number] Implanted:Qty: 1 on 03/18/2024 by Basil Adhikari MD at [facility] N/A: Aorta [employer]olife Inc 10/24/2025 PFP 6X8 / / [id number] Arthrex Inc Device Closure Tigertape Sternal Cerclage Blunt Needle Ar-7289t - [id number] Implanted:Qty: 1 on 03/18/2024 by Basil Adhikari MD at [facility] N/A: Sternum Arthrex Inc 12/14/2028 AR-7289 T / / [id number] Arthrex Inc Device Closure Tigertape Sternal Cerclage Blunt Needle Ar-7289t - [id number] Implanted:Qty: 1 on 03/18/2024 by Basil Adhikari MD at [facility] N/A: Sternum Arthrex Inc 12/14/2028 AR-7289 T / / [id number] Estrada Vascular Plug Occluder Cvasc Embl Self Expanding Amplatzer [id number] Nitinol 9-Avp2-014 - S0 - [id number] Implanted:Qty: 1 on 03/22/2024 by Basil Adhikari MD at [facility] Left: Internal Iliac (Hypogastr ic) Artery Estrada Vascular [id number] 05/14/2025 9-AVP2- 014 / 0 / [id number] [employer] Inc Excluder 18mm 14.5-16.5mm 11.5cm Stent Abrasion Resistant [id number] - [id number] - [id number] Implanted:Qty: 1 on 03/22/2024 by Basil Adhikari MD at [facility] Left: External Iliac Artery [employer] Inc [id number] 11/17/2026 [id number] 00 / [id number] / W[employer] Stent Graft Thoracic Conformable Tag [id number] - S0 - [id number] Implanted:Qty: 1 on 03/22/2024 by Basil Adhikari MD at [facility] Left: External Iliac Artery [employer] [id number] 08/14/2026 [id number] 10 / 0 / Amplatzer Company Tanker Truck Driver Lisa Amplatzer 14mm 100cm 8mm 1 Layer Wire Mesh 1 Lobe Design Optimal 9-Plug-014 - S0 - [id number] Implanted:Qty: 1 on 03/22/2024 by Basil Adhikari MD at [facility] Left: Internal Iliac (Hypogastr ic) Artery Amplatzer Company Tanker Truck Driver Lisa 03/16/2028 9-PLUG- 014 / 0 / [id number] Insurance [facility] Address: [address] [address] [place] [address] [facility] Advance Directives For more information, please contact: [phone] * Full Code (Latest Code Status on [...] 8:17 AM 12/19/2023 2:20 PM Care Teams Pharmacologist Relationship Specialty Start Date End Date Martinez Pace MD [address] [place] [address] PCP - General 05/02/16 Dion Abraham MD [address] [place] [address] Referring Physician Cardiology 02/18/24 Basil Adhikari MD [address] [facility] [address] [place] [address] Consulting Physician Cardiothoracic Surgery 02/19/24
--- OUTSIDE RECORDS SUMMARY | 2024-08-11 11:20 | XMS_ITS | Clinical Summary ---
Author Organization [facility] Address [address] [place] [address] Care Team Providers Care Vertical Contour Band Saw Operator Name Role Phone Martinez Pace MD Primary Care Provider Dion Abraham MD Unavailable [phone] Basil Adhikari MD Unavailable [phone] Allergies No known active allergies Medications PreviDent [...] 1 tablet (88 mcg total) by mouth paper products printer before breakfast 30 tablet 5 Active rosuvastatin [...] 05/13/2024 Assessment & Plan (05/13/2024 2:10 PM PLODDING OPERATOR): - Two charted HR in the 30s on 05/12 around 0445 AM. No symptoms reported at this time. Patient monitored in PM on 05/12 and 05/13 without observed HR in 30s. Patient reports his heart rate is being monitored by his form press operator Dr. Abraham. Patient had a recent TTE in 03/2024 with mild left ventricular systolic dysfunction, global kypokinesis, EF 50-55%, normal left ventricular cavity size, mild to moderate concentric left ventricular hypertrophy, normal aortic valve appearance and function, normal caliber aortic root. Back pain 05/12/2024 Assessment & Plan (05/12/2024 2:21 PM PLODDING OPERATOR): - OSH CT: Multilevel degenerative changes are noted in the spine, including a wedge deformity of the L2 vertebral body. - Lidoderm patch ordered Hematoma of leg, left, initial encounter 025 Assessment & Plan (05/13/2024 1:56 PM PLODDING OPERATOR): - CTA overread w/ large L hematoma, [...] 05/11/2024 Assessment & Plan (05/12/2024 11:34 AM PLODDING OPERATOR): - Patient reports on Vibegron for penile pain and reports previously tested for UTI which was negative - UA (05/10): neg nitrite, neg LE - will not reflex - G/C, trich urine pending- has not been sent as of 05/12 - Continue oxybutynin while inpatient Hyponatremia 05/11/2024 Assessment & Plan (05/13/2024 1:55 PM PLODDING OPERATOR): - Na 124 on admission - Previous [...] 05/11/2024 Assessment & Plan (05/13/2024 1:57 PM PLODDING OPERATOR): - 05/11: new admit, monitor Hgb and [...] 05/11/2024 Assessment & Plan (05/13/2024 1:59 PM PLODDING OPERATOR): - Hgb trend (05/10): 9.3- 8.7 - Hgb trend (05/11): 8.2- 8.2- 7.8- - Hgb trend (05/12): 7.7- 7.9 - Hgb (05/13): 7.8 - CBC was monitored, no active signs or symptoms of bleeding, hemodynamically unsupported at discharge Fall, initial encounter 05/10/2024 Assessment & Plan (05/11/2024 2:30 PM PLODDING OPERATOR): - mechanical fall - hypotensive at OSH, responsive to fluid resuscitation - CT head/spine overread w/o acute intracranial process or fractures, hematoma present correlating w/ exam - Cleared C-spine in ED Hyperkalemia 04/08/2024 Dysphagia 04/07/2024 Assessment & Plan (05/13/2024 3:35 PM PLODDING OPERATOR): - s/p G-tube - therapy coordinator consulted - Tube feeds via PEG, meds via PEG - patient and family support report recent advancement to nectar thick liquids (mostly for comfort) - MONOMER RECOVERY OPERATOR consult - 05/12: appropriate for MBS, pending - 05/13: MBS to determine if diet can be advanced prior to discharge -- recommend NPO with ice chips - Discharge tube feeds: Isosource 220 ml via g-tube five times daily + 30 ml saline flush via PEG 6 times daily Hypotension 04/06/2024 Assessment & Plan (05/13/2024 1:55 PM PLODDING OPERATOR): - Continue home midodrine - 05/11: hypotensive [...] 02/11/2024 Assessment & Plan (05/11/2024 2:31 PM PLODDING OPERATOR): #Hx ascending aortic aneurysm sp aortic root replacement (03/18/24) #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 Numbness and tingling of upper extremity 024 Encounter for colonoscopy du e to history of adenomatous colonic polyps 11/03/2023 Cerebral infarction, unspecified 09/10/2023 Assessment & Plan (05/12/2024 11:34 AM PLODDING OPERATOR): - Neurology note 04/08/24 recommends transitioning to [...] (11/24/2018): Added automatically from request for surgery [id number] Adenomatous polyp of cecum 06/18/2018 Overview (06/18/2018): Added automatically from request for surgery [id number] intermission coordinator current use of anticoagulant therapy 0 11/07/2016 Basal cell carcinoma (BCC) of antihelix of ear 0 04/16/2016 Ascending aortic aneurysm 09/05/2015 Deep vein thrombosis (DVT) 06/22/2015 Assessment & Plan (05/11/2024 2:08 PM PLODDING OPERATOR): - On Eliquis - Bilateral foot swelling - BLE duplex (05/11): 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) Pulmonary embolism 06/22/2015 Thyroid disease Assessment & Plan (05/11/2024 1:48 PM PLODDING OPERATOR): - Continue levothyroxine 88 mcg daily Neuropathy Depression Overview (07/18/2017): Depression GARCÍA on CPAP Assessment & Plan (05/11/2024 1:48 PM PLODDING OPERATOR): - Patient reports not wearing at this time OA (osteoarthritis) History of pulmonary embolus (PE) Assessment & Plan (05/12/2024 11:30 AM PLODDING OPERATOR): #Afib #Embolic stroke, history of - Remote history of PE, recent embolic strokes - Recently switched from Xarelto to Eliquis - 05/12: resume Eliquis, monitor Hgb Encounters Date Type Department Care Team Description 07/02/2024 Telephone [facility] - [facility] [address] [place] [address] [place] [address] Carmela Arrieta Au.D. 07/02/2024 Telephone [facility] [address] [facility] [address] [facility] [address] [address] Carmela Arrieta Au.D. 06/23/2024 Telephone [facility] [address] [place] [address] [address], [place] [address] Nasra Ruff, B.AVictor Manuel 06/23/2024 Orders Only [facility] Surgery [address] [place] [address] Devaughn Clement MD Aneurysm of ascending aorta without rupture (Primary Dx) 06/01/2024 Telephone [facility] [place] [address] [facility] [address] [place] [address] Scott Osei EP-C CRN Follow Up 05/26/2024 Results Follow-Up [facility] [address] [facility] [address] [place] [address] Klaus Humphrey MD PhD M[facility] Mobile Cardiac Telemetry Event Monitor from Last 3 Months Immunizations Immunization Administration Dates Next Due Influenza, Unspecified 01/16/2024 Moderna SARS-CoV-2 Monovalen t Vaccination (12+ YRS) 05/30/2020,04/18/2020 Tdap 05/10/2024(Deferred: Other - pt states received at [facility]) Surgical History Surgery Date Site/Laterality Comments THYROIDECTOMY [...] Other Medical right wrist gabi mike; Comments: [facility] 12/03/2013 - GERD (gastroesophageal reflux disease) Thyroid disease Neuropathy GARCÍA on CPAP OA (osteoarthritis) History of pulmonary embolus (PE) Aortic aneurysm ascending BPH (benign prostatic hyperplasia) Pulmonary emboli (HCC) 2015 Chronic constipation Colon polyp Hypothyroidism Venous thromboembolism [...] pur e alcohol) 2x a day [facility] Utilities Answer Date Recorded In the past 12 months has e electric, gas, oil, or water company [...] often do you attend chur ch or muslim services? Never 05/12/2024 Do you belong to any clubs o r organizations such as oriental orthodox groups, unions, fraternal or athletic groups, or [...] time in the past [address] [facility], were you homeless or living in a long-term (including now)? No 05/12/2024 Personal Safety Answer Date Recorded Have you ever been in or are you currently in a harmful physical or emotional relationship or is someone making you feel afraid or unsafe? Denies 05/10/2024 Sex and Gender Information Value Date Recorded Sex Assigned at Not on file Legal Sex Male 12:56 AM PLODDING OPERATOR Gender Identity Not on file Sexual Orientation Straight 10/21/2019 9: 52 AM CDT Obstetrics History Last Filed Vital Signs Vital Sign Reading Time Taken Comments Blood Pressure 106/57 05/13/2024 3:07 PM PLODDING OPERATOR Pulse 56 05/13/2024 3:07 PM PLODDING OPERATOR Temperature 36.8 C (98.2 F) 05/13/2024 3:07 PM PLODDING OPERATOR Respiratory Rate 16 05/13/2024 3:07 PM PLODDING OPERATOR Oxygen Saturation 100% 05/13/2024 3:07 PM PLODDING OPERATOR Inhaled Oxygen Concentration - - Weight 63.4 kg (139 lb 12.8 oz) 05/11/2024 2:56 AM PLODDING OPERATOR Height 172.7 cm (5' 8) 05/11/2024 2:56 AM PLODDING OPERATOR Body Mass Index 21.26 05/11/2024 2:56 AM PLODDING OPERATOR Plan of Treatment Health Maintenance Due Date Last Done Comments Depression Screening 1940 Hepatitis B Screening 07/30/1957 Pneumococcal vaccine 65+ (1 of 1 - PCV) 07/30/1989 Zoster Vaccine (1 of 2) 07/30/1989 Well Visit 65+ 07/30/2004 DTaP/Tdap/Td Vaccine (2 - Td or Tdap) 03/31/2022 Covid-19 Vaccine ( season) 2023, 04/18/2020 Fall Risk Assessment 05/13/2025 05/13/2024, 01/15/20 Influenza Vaccine Completed 01/16/2024, , 12/14/2012 Medical Devices Implanted Type Area Route Clerk Device Identifier Shelf Expiration Date Model / Serial / Lot Leyva Lifesciences Konect Resilia Aortic Valved Conduit 27mm [id number] - [id number] - [id number] Implanted:Qty: 1 on 03/18/2024 by Basil Adhikari MD at [facility] Prosthetic Valve N/A: Aortic Valve Leyva [employer]iences 01/06/2027 [id number] / [id number] / Teleflex [employer] Inc 18f Manta Vascular Closure Device 2115 - S0 - [id number] Implanted:Qty: 1 on 03/22/2024 by Basil Adhikari MD at [facility] Vascular Closure Device Teleflex Medical Inc 01/06/20255 / 0 / [id number] Cement Bone Cmw 2 20 Gm Fast Set Sterile - [id number] Implanted:Qty: 1 on 2017 by Brennon Davis MD at [facility] Right: Shoulder Depuy Orthopaedics Inc 10/15/2019 [id number] 0 / / [id number] Component Glenoid Comprehensive Regenerex Titanium Clay Porous Shoulder Modular Hybrid Post - [id number] Implanted:Qty: 1 on 2017 by Brennon Davis MD at [facility] Right: Shoulder Kavita [employer] Inc [id number] 01/21/2027 PT-1139 50 / / [id number] Component Glenoid Comprehensive Hybrid Large H4 Mm Shoulder Base Modular - [id number] Implanted:Qty: 1 on 2017 by Brennon Davis MD at [facility] Right: Shoulder [employer] [id number] 03/23/2022 [id number] / / [id number] Stem Humeral Comprehensive Porous Mini L83 Mm Od15 Mm Shoulder Reverse System - [id number] Implanted:Qty: 1 on 2017 by Brennon Davis MD at [facility] Right: Shoulder [employer] [id number] 04/10/2027 [id number] / / [id number] Head Humeral Bio-Modular Cocrmo 4 Mm Offset H22 Mm Od54 Mm Shoulder Sterile - [id number] Implanted:Qty: 1 on 2017 by Brennon Davis MD at [facility] Right: Shoulder [employer] 08/16/2019 [id number] / / [id number] Cryolife Inc Graft Biological Cardiovascular Photofix 6x8cm Acellular Dermis Pfp 6x8 - [id number] Implanted:Qty: 1 on 03/18/2024 by Basil Adhikari MD at [facility] N/A: Aorta Cryolife Inc 10/24/2025 PFP 6X8 / / [id number] Arthrex Inc Device Closure Tigertape Sternal Cerclage Blunt Needle Ar-7289t - [id number] Implanted:Qty: 1 on 03/18/2024 by Basil Adhikari MD at [facility] N/A: Sternum Arthrex Inc 12/14/2028 AR-7289 T / / [id number] 2 Arthrex Inc Device Closure Tigertape Sternal Cerclage Blunt Needle Ar-7289t - [id number] Implanted:Qty: 1 on 03/18/2024 by Basil Adhikari MD at [facility] N/A: Sternum Arthrex Inc 12/14/2028 AR-7289 T / / [id number] 2 Estrada Vascular Plug Occluder Cvasc Embl Self Expanding Amplatzer [id number] Nitinol 9-Avp2-014 - S0 - [id number] Implanted:Qty: 1 on 03/22/2024 by Basil Adhikari MD at [facility] Left: Internal Iliac (Hypogastr ic) Artery Estrada Vascular [id number] 05/14/2025 9-AVP2- 014 / 0 / [id number] Wl [employer] Excluder 18mm 14.5-16.5mm 11.5cm Stent Abrasion Resistant [id number] - [id number] - [id number] Implanted:Qty: 1 on 03/22/2024 by Basil Adhikari MD at [facility] Left: External Iliac Artery Wl [employer] [id number] 11/17/2026 [id number] 00 / [id number] / Wl [employer] Stent Graft Thoracic Conformable Tag [id number] - S0 - [id number] Implanted:Qty: 1 on 03/22/2024 by Basil Adhikari MD at [facility] Left: External Iliac Artery Wl [employer] [id number] 08/14/2026 [id number] 10 / 0 / Amplatzer Braider Setter Lisa Amplatzer 14mm 100cm 8mm 1 Layer Wire Mesh 1 Lobe Design Optimal 9-Plug-014 - S0 - [id number] Implanted:Qty: 1 on 03/22/2024 by Basil Adhikari MD at [facility] Left: Internal Iliac (Hypogastr ic) Artery Amplatzer Braider Setter Lisa 03/16/2028 9-PLUG- 014 / 0 / [id number] Insurance [facility] [employer] MEDICARE [facility] [employer] Advance Directives For more information, please contact: [phone] * Full Code (Latest Code Status on [...] 8:17 AM 12/19/2023 2:20 PM Care Teams Vertical Contour Band Saw Operator Relationship Specialty Start Date End Date Martinez Pace MD [address] [place] [address] PCP - General 05/02/16 Dion Abraham MD [address] [place] [address] Referring Physician Cardiology 02/18/24 Basil Adhikari MD [address] [facility] [address] [place] [address] Consulting Physician Cardiothoracic Surgery 02/19/24
--- OUTSIDE RECORDS SUMMARY | 2024-08-11 11:20 | XMS_ITS | Continuity of Care Document ---
Author Organization [facility] Address [address] [place] [address] Phone Care Team Providers Care College Professor Name Role Phone Brennon Davis MD Unavailable [...] Office/outpatient visit,est, mod 2017 Office/outpatient visit,est, [facility] 2017 X-ray exam shoulder minimum 2 views Office/outpatient visit,est, low 2015 Office/outpatient visit,est, low 2014 Global/Postop followup visit Global/Postop followup visit X-ray exam shoulder minimum 2 views Global/Postop followup visit Office/outpatient visit,[facility], [facility] 2014 Advance Directives Directive Yes / No Effective Date File Name No Information Encounters Encounter Description Practice Location Reason(s) For Visit Diagnoses Date Provider Providers Copied on Encounter [facility], [address], [place], [place], [id number], [place] tel:[phone] [facility] Bilateral Shoulders (chief complaint) Presence of left artificial shoulder jointPresence of right artificial shoulder joint May-0 6-201 9 Ryan Willett. [address] [facility] [place] [address], [place], [place], [id number] , [place]. tel:[phone] Referring Provider: Gamal Hong, [address] [facility] [facility] [address], [place], [address]. tel:[phone] [facility], [address] [address], [place], [place], [id number], [place] [phone] [facility] Right shoulder (chief complaint) Presence of right artificial shoulder joint Aug-0 3-201 8 Ryan Brennon. [address] [facility] [place] [address], [place], [place], [id number] , [place]. tel: [phone] [facility], [address] [address], [place], [place], [id number], [place] tel:[phone] [facility] Right shoulder (chief complaint) Presence of right artificial shoulder joint Gibson-2 0-201 8 Ryan Brennon. [address] [facility] [place] [address], [place], [place], [id number] , [place]. tel: [phone] [facility], [address], [id number], [place] [phone] [facility] right shoulder (chief complaint) Presence of right artificial shoulder joint May-2 3-201 8 Ryan Brennon. [address] [facility] [facility] [address], [place], [place], [id number] , [place]. tel: [phone] [facility], [address] [address], [place], [place], [id number], [place] [phone] [facility] Primary osteoarthritis, right shoulder Apr-1 6-201 8 Ryan Willett. [address] [facility] [place] [address], [place], [place], [id number] , [place]. tel: [phone] Office/outpat ient visit,est, mod [facility], [address] [address], [place], [place], [id number], [place] tel:[phone] [facility] Right Shoulder (chief complaint) Primary osteoarthritis, right shoulder Feb-2 6-201 8 Ryan Willett. [address] [facility], [place] [address], [place], [place], [id number] , [place]. tel:[phone] Office/outpat ient visit,est, [facility], [address] [address], [place], [place], [id number], [place] [phone] [facility] right shoulder pain (chief complaint) Pain in right shoulderPrimary osteoarthritis, right shoulder Feb-2 1-201 8 Sarah Beecrra. [address] [facility], [place] [address], [place], [place], [id number] , [place]. tel:[phone] Referring Provider: Gamal Hong, [address] [place] [address] [address], [place], [address]. tel:[phone] Office/outpat ient visit,est, [facility], [address] [address], [place], [place], [id number], [place] tel:[phone] [facility] Left Shoulder (chief complaint) Presence of left artificial shoulder joint Apr-0 -201 6 Sarah Becerra. [address] [facility], [place] [address], [place], [place], [id number] , [place]. tel: [phone] Office/outpat ient visit,est, [facility], [address], [id number], [place] [phone] [facility] Presence of left artificial shoulder joint Oct-0 5-201 5 Ryan Willett. [address] [place] [address], [place], [place], [id number] , [place]. tel:[phone] [facility], [address] [place] [address], [id number], [place] tel:[phone] [facility] Shoulder replacement status 0-201 5 Ryan Willett. [address] [facility], [place] [address], [place], [place], [id number] , [place]. tel: [phone] [facility], [address] [address], [place], [place], [id number], [place] [phone] [facility] Shoulder replacement status 6 5 Ryan Willett. [address] [address], [place], [place], [id number] , [place]. tel: [phone] [facility], [address], [id number], [place] tel:[phone] [facility] Shoulder replacement status 5 Ryan Willett. [address], [id number] , [place]. tel: [phone] [facility], [address] [place] [address], [id number], [place] tel:[phone] [facility] Shoulder replacement status 2 [address] Ryan Willett. [address] [place] [address], [id number] , [place]. tel: [phone] [facility], [address], [id number], [place] tel:[phone] [facility] ARTHROPATHY NOS-SHLDER May- 5 Frankie Joyce. [address], [id number] , [place]. tel: [phone] Office/outpat ient visit,new, mod [facility], [address] [place] [address], [id number], [place] tel:[phone] [facility] ARTHROPATHY NOS-SHLDER May- 1-201 5 Ryan Willett. [address], [id number] , [place]. tel: [phone] Family History Family Member Type Diagnosis Age [...] Unspecified Payers Payer name Insurance type Covered democrat ID Dot easleybryn(s) Trisha Blue Cross Blue Shibautista d [facility] [id number] Social History Type Description Quantity Date Captured [...] 80.739 kg (178.00 lbs) 26.6 7 kg/m miguel ángel (2) Chief Complaint And Reason For Visit [...]
== END 2024-08-11 11:17 | disposition home or self-care (01) ==
PROVIDERS: PCP Family Medicine; Visit Provider Nurse Practitioner Adult Health
DX: M48.061 Spinal stenosis, lumbar region without neurogenic claudication (principal); M47.896 Other spondylosis, lumbar region; M41.86 Other forms of scoliosis, lumbar region; S32.020A Wedge compression fracture of second lumbar vertebra, initial encounter for closed fracture; X58.XXXA Exposure to other specified factors, initial encounter
CPT/HCPCS: 72110

== ENCOUNTER 2024-09-20 13:53 | Outpatient (CLI) | payer BC, SELFPAY ==
--- NOTE | ~2024-09-20 | XR_ITS ---
MODIFIED ESOPHAGRAM HISTORY: Dysphagia. TECHNIQUE: Modified barium esophagram was performed on 09/20/2024. I administered fluoroscopy and perfo rmed the exam with speech pathologist. Patient was seated for lateral fluoroscopic imaging for inges tion of thin liquids, pudding, solids and quantified amounts, followed by thin liquids in uncontrolle d amounts. This was recorded on tape. A single fluoroscopic spot image was also recorded. The DAP for this procedure was 1.644 Gycm2. The amount of fluoroscopy time used during this procedure was 3.3 mi nutes. FINDINGS: Oral stage: Adequate function. Pharyngeal stage: Reduced laryngeal elevation and tongue base retraction. There is vallecular and pir iform sinus residue. There is trace laryngeal penetration without aspiration. Cricopharyngeal dysfunc tion.. Cervical/esophageal stage: Adequate function. IMPRESSION: Pharyngeal dysphagia with laryngeal penetration without aspiration. Please correlate wit h speech pathologist findings and specific feeding recommendations. Reviewed, dictated and finalized at location A. IMPRESSION: Pharyngeal dysphagia with laryngeal penetration without aspiration. Please correlate with speech pathologist findings and specific feeding recomm endations.
--- OUTSIDE RECORDS SUMMARY | 2024-09-20 13:59 | XMS_ITS | Clinical Summary ---
Author Organization [facility] Address [address] [place]: Epic Prelude ADT [place]URI [place] [address] Care Team Providers Care Powderer Name Role Phone Unavailable Primary Care Provider [...] Paste Use a pea-sized amount once daily. Quinter for 2 minutes, spit excess. No rinsing, [...] day. 14 Tablet 1 2 5:00 PM DRAUGHTSMAN 01/25/20 22 Active Sodium Fluoride (PreviDent 5000 Booster Plus) 1.1 % Paste USE A PEA SIZE AMOUNT TO BRUSH FOR 2 MINUTES THEN SPIT IT OUT. NO EATING, DRINKING OR RINSING FOR 30 MINUTES AFTER BRUSHING. 100 mL 2 1:28 PM DRAUGHTSMAN 02/15/20 22 Active benzonatate (TESSALON) 100 mg [...] at bedtime 45 Tablet 3 2:27 PM DRAUGHTSMAN 03/31/19 23 Active mirtazapine (REMERON) 15 mg tablet Take 1.5 Tablets (22.5 mg) by mouth daily at bedtime. 45 Tablet 4 3 4:01 PM CDT 04/26/19 23 Active rosuvastatin (Crestor) 10 mg tablet Take 1 Tablet (10 mg) by mouth daily. 90 Tablet 3 4 5:07 PM DRAUGHTSMAN 07/11/19 23 Active cyanocobalamin, vitamin B-12, 1,000 mcg Capsule Take 1 capsule by mouth once a day 100 Capsule 3 07/11/19 23 Active mirtazapine (REMERON) 15 mg tablet Take 1.5 Tablets (22.5 mg) by mouth daily at bedtime. 45 Tablet 11/09/19 23 Active mirtazapine (REMERON) 15 mg tablet Take 1 and 1/2 tablets by mouth at bedtime 45 Tablet 5 4 11:21 AM DRAUGHTSMAN 12/11/19 23 Active Sodium Fluoride (PreviDent 5000 Booster Plus) 1.1 % Paste Quinter with pea-sized amount once daily. Quinter for 2 minutes and spit out excess. [...] for congestion. 30 Capsule 4 12:26 PM DRAUGHTSMAN 05/07/19 24 Active levothyroxine 75 mcg tablet Take 1 Tablet (75 mcg) by mouth daily. 90 Tablet 3 4 1:18 PM DRAUGHTSMAN 05/15/19 24 Active sodium bicarbonate 650 mg tablet Take 1 tablet by mouth twice a day 60 Tablet 4 2:28 PM DRAUGHTSMAN 05/21/19 24 Active busPIRone (BUSPAR) 5 mg [...] daily. 100 Tablet 3 4 1:18 PM DRAUGHTSMAN 07/25/19 24 Active tamsulosin (FLOMAX) 0.4 mg capsule Take 1 Capsule (0.4 mg) by mouth daily. 30 Capsule 2 4 4:25 PM CDT 09/02/19 24 Active phenazopyridine 200 mg tablet Take 1 Tablet (200 mg) by mouth 3 times daily as needed for pain for 7 days. 21 Tablet 4 2:33 PM CDT 10/11/19 24 Active trospium (SANCTURA) 20 mg Tablet Take 1 Tablet (20 mg) by mouth daily at bedtime. 30 Tablet 5 4 4:49 PM DRAUGHTSMAN 10/14/19 24 Active peg 3350-electrolyt es (GOLYTELY) [...] daily. 30 Tablet 3 4 2:05 PM DRAUGHTSMAN 12/09/19 24 Active sacubitriL-vals brian (Entresto) 24-26 mg Tablet TAKE 1 TABLET BY MOUTH TWICE A DAY 180 Tablet 3 4 4:49 PM DRAUGHTSMAN 01/14/20 24 Active Sodium Fluoride 1.1 % Paste Apply to the teeth daily at nightime or as directed 100 mL 1 4 3:07 PM DRAUGHTSMAN 02/03/20 24 Active rosuvastatin (CRESTOR) 10 mg tablet Take 1 Tablet (10 mg) by mouth daily. 90 Tablet 2 02/06/20 24 Active tadalafiL (CIALIS) 20 mg tablet Take 1 tablet by mouth as needed 30 minutes before sexual activity. Do not use more than 1 dose in 24 hours. 10 Tablet 3 5 12:04 PM CDT 02/18/20 24 Active rivaroxaban (Xarelto) 10 mg Tablet Take 1 Tablet (10 mg) by mouth daily. 30 Tablet 4 2:05 PM DRAUGHTSMAN 03/04/20 24 Active busPIRone (BUSPAR) 5 mg [...] (twelve) hours 60 Tablet 5 2:11 PM DRAUGHTSMAN 04/20/19 25 Active levothyroxine 88 mcg tablet Take 1 tablet (88 mcg total) by mouth in the campaign management specialist before breakfast 30 Tablet 5 2:11 PM DRAUGHTSMAN 04/20/19 25 Active midodrine (PROAMATINE) 5 mg tablet Take 1 tablet (5 mg total) by mouth 3 (three) times a day before meals 90 Tablet 5 2:11 PM DRAUGHTSMAN 04/20/19 25 Active Sodium Chloride 1,000 mg Tablet, Soluble Take 1 tablet (1 g total) by mouth 2 (two) times a day 60 Tablet 5 2:11 PM DRAUGHTSMAN 04/20/19 25 Active amiodarone (CORDARONE) 200 mg [...] 6 hours 60 Tablet 5 2:11 PM DRAUGHTSMAN 04/29/19 25 Active oxyBUTYnin (DITROPAN) 5 mg tablet Give 1 tablet via feeding tube daily 30 Tablet 5 2:11 PM DRAUGHTSMAN 04/29/19 25 Active mirtazapine (REMERON) 15 mg tablet Give 1.5 tablets via feeding tube bedtime 30 Tablet 04/29/19 25 Active levothyroxine 88 mcg tablet Take 1 Tablet (88 mcg) via feeding tube daily at 5:00. 30 Tablet 5 5 11:17 AM DRAUGHTSMAN 05/03/19 25 Active vibegron (Gemtesa) 75 mg Tablet Take 1 Tablet by mouth daily. 30 Tablet 5 5 12:04 PM CDT 05/06/19 25 Active lidocaine (LIDODERM) 5 % Adhesive Patch, Medicated Place 2 patches on the skin daily. Remove & discard patch within 12 hours or as directed by . 30 Patch 5 3:39 PM DRAUGHTSMAN 05/13/19 25 Active Sodium Chloride (Safe Wash) 0.9 % Solution Administer per tube 30 mL 6 (six) times a day 1000 mL 1 05/13/19 25 Active rosuvastatin (CRESTOR) 10 mg tablet Take 2 Tablets (20 mg) via feeding tube daily in the morning. 180 Tablet 1 5 2:14 PM CDT 05/23/19 25 Active empagliflozin (Jardiance) 10 mg tablet Take 1 Tablet (10 mg) by mouth daily. 90 Tablet 3 5 11:49 AM CDT 06/06/19 25 Active levothyroxine 88 mcg tablet Take 1 tablet by mouth once a day 90 Tablet 3 5 12:26 PM CDT 06/06/19 25 Active amiodarone (CORDARONE) [...] 5 6:12 PM CDT 06/29/19 25 Active mirtazapine (REMERON) 15 mg tablet Take 1 Tablet (15 mg) by mouth daily at bedtime. 30 Tablet 1 08/07/19 25 Active busPIRone (BUSPAR) 5 mg tablet Take 1 Tablet (5 mg) by mouth daily. 90 Tablet 5 12:04 PM CDT 09/16/19 25 Active mirtazapine (REMERON) 15 mg tablet Take 1.5 Tablets (22.5 mg) by mouth daily at bedtime. 135 Tablet 09/16/19 25 Active apixaban (Eliquis) 5 mg tablet Give 1 Tablet (5 mg) via feeding tube every 12 hours. 60 Tablet 1 07/06/20 25 Active apixaban (Eliquis) 5 mg tablet Give 5 mg via feeding tube every 12 hours 60 Tablet 1 5 2:11 PM CDT 07/29/19 25 025 Discontinued Immunizations Immunization Administration Dates Next Due (COMIRNATY)(12 YR UP) COVID- 19 VACCINE, MRNA, SPIKE PROTEIN, LNP, FOELIA(PF) 30 MCG/0.3 ML IM SUSP 12/01/2023 (PREVNAR 20)(6 WKS UP) PNEUM OCOCCAL CONJUGATE VACCINE 20-VALENT (PCV20), POLYSACCHARIDE [id number] CONJUGATE, ADJUVANT 0.5 ML (PF) IM 12/01/2023 [...] 75+ series) 07/30/2014 COVID-19 Vaccine ( - 2023- season) 2024 12/01/2023, 05/30/2020, 04/18/2020 INFLUENZA VACCINE (#1) 2024 12/22/2023, 2021 PNEUMOCOCCAL VACCINE 50+ YEARS Completed 12/01/2023 Insurance RX [facility] [place] Commercial RX [employer]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 RX [facility] Commercial
--- OUTSIDE RECORDS SUMMARY | 2024-09-20 13:59 | XMS_ITS | Encounter Summary ---
Author Organization [facility] Healthcare Address [address] [place] [address] Care Team Providers Care Business System Consultant Name Role Phone Martinez Pace MD Primary Care Provider Dion Abraham MD Unavailable [phone] Basil Adhikari MD Unavailable [phone] Encounter Details Date Type Department Care Team (Late st Contact Info) Description 06/11/2017 Telephone [facility] Operating Room [address] [place] [address] Sara Tipton Social History Tobacco Use Types Packs/Day Years Used Date Smoking Tobacco: Former Alcohol Use Standard Drinks/Week Comments Yes 0 (1 standard drink = 0.6 oz pur e alcohol) Sex and Gender Information Value Date Recorded Sex Assigned at Not on file 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 Gender Identity Not on file Sexual Orientation Straight 10/21/2019 9: 52 AM CDT documented as of this encounter Plan of Treatment Not on file documented as of this encounter Visit Diagnoses Not on filedocumented in this encounter Care Teams Business System Consultant Relationship Specialty Start Date End Date Martinez Pace MD [address] [place] [address] PCP - General 05/02/16 Dion Abraham MD [address] [place] [address] Referring Physician Cardiology 02/18/24 Basil Adhikari MD [address] [facility] [address] [place] [address] Consulting Physician Cardiothoracic Surgery 02/19/24 documented as of this encounter
--- OUTSIDE RECORDS SUMMARY | 2024-09-20 13:59 | XMS_ITS | Patient Health Record ---
Author Organization [facility] [employer] Address [address] [place] [address] Care Team Providers Care Die Cast Supervisor Name Role Phone Carli Figueroa Unavailable [phone] Allergies No Known Allergies Reason For Referral No Information Medications Medication SIG (Take, Route, Frequency, Duration) Notes Start Date End Date Status Tadalafil 20 MG TAKE 1 TABLET BY MOUTH ONCE DAILY NEEDED FOR SEXUAL ACTIVITY. ADMINISTER APPROXIMATELY 30 MINUTES BEFORE SEXUAL ACTIVITY. DO NOT USE MORE THAN 1 DOSE PER 24 HOURS. Oral; Duration: 10 Days Active busPIRone HCl 5 MG 1 tablet Oral Once a day; Duration: 90 days 12/14/2024 Active Mirtazapine 15 MG 1.5 tabs at bedtime Oral daily; Duration: 90 days Active Rosuvastatin Calcium 10 MG Oral; Duration: 90 Days Active Benzonatate 100 MG Oral; Duration: 10 Days Active Xarelto 10 MG Oral; Duration: 90 Days Active PreviDent 5000 Booster Plus 1.1 % Dental; Duration: 30 Days Active Gemtesa 75 MG 1 tablet Orally Once a day Active Tamsulosin HCl 0.4 MG Oral; Duration: 30 Days Active Entresto 24-26 MG 1 tablet Orally Twice a day Active Levothyroxine Sodium 75 MCG Oral; Duration: 90 Days Not-Taking Mirtazapine 15 MG 1 tablet at bedtime Orally daily; Duration: 30 days decrease dose Active Social History Tobacco Use: Social History [...] Master's degree (e.g., NATHALIE, , Ashley, MEd, CASE MANAGEMENT SOCIAL WORKER, NICK)Are you currently employed?: NoWho is your employer?: [employer] Ret.Marriage and SexualityWhat is your relationship status?: WidowedAre you sexually active?: YesDo you use protection during sex?: NoHow many children do you have?: 1 (Notes: note: has 1 living daughter, and 1son that 1995)Home and EnvironmentAre there any guns present in your home?: NoAdvance DirectiveDo you have an advance directive?: NoDo you have a medical power of corporate attorney?: No Social History Substance UseDo you [...] Master's degree (e.g., MA, MS, Ashley, MEd, CASE MANAGEMENT SOCIAL WORKER, NICK)Are you currently employed?: NoWho is your [...] NoDo you have a medical power of corporate attorney?: No Problems Problem Type SNOMED Code ICD Code Onset Dates Problem Status W/U Status Risk Notes Problem Mild recurrent major depression (08652719) Major depressive disorder, recurrent, mild (F33.0) 4 Active confirmed Problem Recurrent major depression in full remission (11318026) Major depressive disorder, recurrent, in full remission (F33.42) Active confirmed Problem Anxiety disorder (894658003) Anxiety disorder, unspecified (F41.9) 4 Active confirmed Problem Chronic insomnia (235735214) Chronic insomnia (F51.04) Active confirmed Problem Recurrent major depression (45312755) Depression, major, recurrent, 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) Active confirmed Vital Signs Heart Rate 75 /min 09/15/2024 Height-cm 172.72 cm 09/15/2024 Blood pressure diastolic 72 mm Hg 09/15/2024 Weight-kg 67.13 kg 09/15/2024 Height 68.00 in 09/15/2024 Blood pressure systolic 99 mm Hg 09/15/2024 Weight 148 lbs 09/15/2024 BMI 22.5 kg/m2 09/15/2024 Encounters Encounter Location Date Provider Diagnosis [employer] [address] [address] 03/08/2024 Carli Figueroa Depression, major, recurrent, in remission F33.40 ; Anxiety disorder, unspecified F41.9 and Chronic insomnia F51.04 [employer] [address] [facility] [address] [place] [address] 08/06/2024 Carli Figueroa Anxiety disorder, unspecified F41.9 ; Major depressive disorder, recurrent, in full remission F33.42 ; Chronic insomnia F51.04 ; Encounter for screening for cardiovascular disorders Z13.6 and Negative depression screening Z13.31 [facility] [employer] [facility] [address] [place] [address] 09/15/2024 Carli Figueroa Major depressive disorder, recurrent, in full remission F33.42 ; Chronic insomnia F51.04 ; Anxiety disorder, unspecified F41.9 ; Encounter for screening for depression Z13.31 and Encounter for screening for cardiovascular disorders Z13.6 [facility] [employer] [facility] [address] [facility] [address] [place] [address] 01/28/2024 Carli Figueroa Major depressive disorder, recurrent, mild F33.0 [facility] [employer] [place] [address] [facility] [address] [place] [address] 01/28/2024 Carli Figueroa Major depressive disorder, recurrent, mild F33.0 [facility] [place] [address] [facility] [address] [place] [address] 06/30/2024 Carli Figueroa Assessments Encounter Date Diagnosis [...] up 5 months, sooner if concerns arise 08/06/2024 Major depressive disorder, recurrent, in full remission (ICD-10 - F33.42) 08/06/2024 Anxiety disorder, unspecified (ICD-10 - F41.9) 09/15/2024 Major depressive disorder, recurrent, in full remission (ICD-10 - F33.42) 01/28/2024 Major depressive disorder, recurrent, mild (ICD-10 [...] up 5 months, sooner if concerns arise 09/15/2024 Chronic insomnia (ICD-10 - F51.04) 03/08/2024 Chronic insomnia (ICD-10 - F51.04) Doing well, no concerns. denies depression, denies anxiety. Sleep good, improved since starting new medication for prostate: not waking up to use bathroom, sleeping more soundly No changes warranted, would like to continue with them as is. - Cont mirtazapine 22.5 mg qhs - continue buspirone 5 mg bid follow up 5 months, sooner if concerns arise 09/15/2024 Anxiety disorder, unspecified (ICD-10 - F41.9) 08/06/2024 Chronic insomnia (ICD-10 - F51.04) 08/06/2024 Encounter for screening for cardiovascular disorders (ICD-10 - Z13.6) 09/15/2024 Encounter for screening for depression (ICD-10 - Z13.31) 08/06/2024 Negative depression screening (ICD-10 - Z13.31) 09/15/2024 Encounter for screening for cardiovascular disorders (ICD-10 - Z13.6) 08/06/2024 Yessica Alonso, an 84-year-old male with a history of heart issues, presents following recent aortic aneurysm surgery and multiple post-operative complications, including pneumonia and a fall. Status post aortic aneurysm repair Assessment: Patient underwent aortic aneurysm repair on March 18 for a 5.4 cm aortic aneurysm. Post-operative course was complicated by pneumonia and significant discomfort. Currently engaged in cardiac rehabilitation at [facility] for the past 3 weeks. Recent follow-up with air quality specialist Dr. Ramirez resulted in discontinuation of 3 medications. Patient reports feeling good and is participating in regular exercise and physical therapy sessions. Plan: - Continue cardiac rehabilitation program twice weekly - Adhere to prescribed exercise regimen, including floor exercises 3 times per week - Follow up with air quality specialist Dr. 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 Currently undergoing speech therapy twice weekly to address this issue. Plan: - Continue speech therapy sessions twice weekly - Adhere to recommendations from speech therapist regarding safe swallowing techniques Fall risk Assessment: Patient experienced a fall in May, resulting in a 3-day hospitalization at [facility]. The fall occurred while fasting and was attributed to loss of balance. Plan: - Continue balance exercises as part of physical therapy regimen - Educate on fall prevention strategies, especially during periods of fasting Sleep disturbance Assessment: Patient reports suboptimal sleep quality. Recently started using CPAP therapy, achieving approximately 4 hours of continuous sleep followed by an additional 2 hours. Despite sleep disruption, patient denies daytime fatigue. Plan: - Continue CPAP therapy as prescribed - Monitor sleep quality and duration - Follow up with sleep specialist if sleep disturbances persist Anxiety Assessment: Patient is currently taking buspirone for anxiety management. No acute anxiety symptoms reported during this visit. Plan: - Continue buspirone 5 mg PO BID Depression Assessment: Patient is currently taking mirtazapine for depression management. No acute depressive symptoms reported during this visit. Patient requests to decrease dosage from 22.5 mg to 15 mg at bedtime. Plan: - Decrease mirtazapine to 15 mg PO at bedtime - Monitor for any changes in mood or depressive symptoms Neuropathy Assessment: Patient reports ongoing neuropathy symptoms, which have progressed to involve the ankles. Nerve conduction study was performed in November by neurologist Dr. March at [facility]. Plan: - Follow up with neurologist Dr. 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 Fernandez. No acute symptoms reported related to this aneurysm. Plan: - Follow up with air quality specialist Dr. Fernandez to discuss management and monitoring of iliac aneurysm 09/15/2024 Yessica Alonso is a male patient with a history of cardiac surgery and mental health treatment following the loss of his in April 2022. He is currently engaged in cardiac rehabilitation and reports good mood and anxiety management. Anxiety Assessment: Patient reports his anxiety is good and he is managing well. He has been engaged in mental health services since the loss of his in April 2022, which he finds beneficial. The patient is currently on buspirone for anxiety management. Plan: - Continue buspirone 5 mg PO once a day Depression Assessment: Patient reports good mood. He is currently taking mirtazapine, which was recently reduced. Patient reports sleeping well, getting 5.5 to 6 hours of sleep, sometimes with an additional couple of hours. No suicidal ideation reported. Plan: - Continue mirtazapine 15 mg PO at bedtime - Maintain current dose; patient reports being comfortable with current regimen Cardiac rehabilitation Assessment: Patient reports attending cardiac rehabilitation three times a week following recent cardiac surgery. He states it is going good and involves a lot of walking, which he finds beneficial post-surgery. Patient is also working with a technology trainer at the [facility] periodically, focusing on balance exercises. Plan: - Continue current cardiac rehabilitation program - Encourage ongoing participation in balance exercises with technology trainer Follow-up Assessment: Patient agrees to a follow-up appointment for medication management and ongoing care. Plan: - Schedule follow-up appointment in 3 months Plan Of Treatment Next Appt Details Provider Name:Carli galan, 12/29/2024 11:45:00 AM, [address] [facility] [address], [place], [address], Insurance Providers Payer Name Payer Address Payer Phone Subscriber Number Group Number Insured Name Patient Relationship to Insured Coverage Start Date Coverage End Date [employer] [employer] Ppo [address] [place] [address] [id number] GIAN ALONSO Self - patient is the insured Medical (General) History Medical History History ICD Code Problems: Anxiety Chronic insomnia Mild recurrent major depression , Surgical History Surgery Date(Month/Year) Reconstructive surgery bilateral shoulde rs 2011 and 201503/17/2015 hammer toe surgery rt foot open heart surgery 03/18/2024 Hospitalization History Reason Date(Month/Year) many medical
--- OUTSIDE RECORDS SUMMARY | 2024-09-20 13:59 | XMS_ITS | Continuity of Care Document ---
Author Organization [facility] Address [address] [place] [address] Phone Care Team Providers Care Chief Of Harbor Patrol Name Role Phone Brennon Davis MD Unavailable [...] minimum 2 views Global/Postop followup visit Office/outpatient visit,[facility], [facility] 2014 Advance Directives Directive Yes / No Effective Date File Name No Information Encounters Encounter Description Practice Location Reason(s) For Visit Diagnoses Date Provider Providers Copied on Encounter [facility], [address], [place], [place], [id number], [place] tel:[phone] [facility] Bilateral Shoulders (chief complaint) Presence of left artificial shoulder jointPresence of right artificial shoulder joint May-0 6-201 9 Ryan Willett. [address] [facility], [place] [address], [place], [place], [id number] , [place]. tel:[phone] Referring Provider: Gamal Hong, [address], [place], [address]. tel:[phone] [facility], [address] [address], [place], [place], [id number], [place] tel:-[phone] [facility] Right shoulder (chief complaint) Presence of right artificial shoulder joint Aug-0 3-201 8 Ryan Brennon. [address] [facility], [place] [address], [place], [place], [id number] , [place]. tel: [phone] [facility], [address] [address], [place], [place], [id number], [place] tel:[phone] [facility] Right shoulder (chief complaint) Presence of right artificial shoulder joint Gibson-2 0-201 8 Ryan Brennon. [address] [facility], [place] [address], [place], [place], [id number] , [place]. tel: [phone] [facility], [address], [id number], [place] tel:-[phone] [facility] right shoulder (chief complaint) Presence of right artificial shoulder joint May-2 3-201 8 Ryan Brennon. [address] [facility], [facility] [address], [place], [place], [id number] , [place]. tel: [phone] [facility], [address] [address], [place], [place], [id number], [place] tel:-[phone] [facility] Primary osteoarthritis, right shoulder Apr-1 6-201 8 Ryan Willett. [address] [facility], [place] [address], [place], [place], [id number] , [place]. tel: [phone] Office/outpat ient visit,est, mod [facility], [address] [address], [place], [place], [id number], [place] tel:[phone] [facility] Right Shoulder (chief complaint) Primary osteoarthritis, right shoulder Feb-2 6-201 8 Ryan Willett. [address] [facility], [place] [address], [place], [place], [id number] , [place]. tel:[phone] Office/outpat ient visit,est, [facility], [address] [address], [place], [place], [id number], [place] tel:-[phone] [facility] right shoulder pain (chief complaint) Pain in right shoulderPrimary osteoarthritis, right shoulder Feb-2 1-201 8 Sarah Becerra. [address] [facility], [place] [address], [place], [place], [id number] , [place]. tel:[phone] Referring Provider: Gamal Hong, [address] [place] [address] [address], [place], [address]. tel:[phone] Office/outpat ient visit,est, [facility], [address] [address], [place], [place], [id number], [place] tel:[phone] [facility] Left Shoulder (chief complaint) Presence of left artificial shoulder joint Apr-0 -201 6 Sarah Becerra. [address] [facility], [place] [address], [place], [place], [id number] , [place]. tel: [phone] Office/outpat ient visit,est, [facility], [address], [id number], [place] [phone] [facility] Presence of left artificial shoulder joint Oct-0 5-201 5 Ryan Willett. [address] [place] [address], [place], [place], [id number] , [place]. tel:[phone] [facility], [address] [place] [address], [id number], [place] tel:[phone] [facility] Shoulder replacement status 0-201 5 Ryan Willett. [address] [facility], [place] [address], [place], [place], [id number] , [place]. tel: [phone] [facility], [address] [address], [place], [place], [id number], [place] [phone] [facility] Shoulder replacement status 6 5 Ryan Willett. [address] [address], [place], [place], [id number] , [place]. tel: [phone] [facility], [address], [id number], [place] tel:[phone] [facility] Shoulder replacement status 5 Ryan Willett. [address], [id number] , [place]. tel: [phone] [facility], [address] [place] [address], [id number], [place] tel:[phone] [facility] Shoulder replacement status 2 5 Ryan Willett. [address] [place] [address], [id number] , [place]. tel: [phone] [facility], [address], [id number], [place] tel:[phone] [facility] ARTHROPATHY NOS-SHLDER May- 5 Frankie Joyce. [address], [id number] , [place]. tel: [phone] Office/outpat ient visit,new, mod [facility], [address] [place] [address], [id number], [place] tel:[phone] [facility] ARTHROPATHY NOS-SHLDER May- 1-201 5 Ryan Willett. [address], [id number] , [place]. tel: [phone] Family History Family Member Type Diagnosis Age [...] Payer name Insurance type Covered libertarian ID Dot easleybryn(s) Trisha Blue Cross Blue Shibautista d [facility] [id number] Social History Type Description Quantity Date Captured [...]
--- OUTSIDE RECORDS SUMMARY | 2024-09-20 13:59 | XMS_ITS | Clinical Summary ---
Author Organization [facility] Address [address] [place] [address] Care Team Providers Care Cost Control Analyst Name Role Phone Martinez Pace MD Primary Care Provider Dion Abraham MD Unavailable [phone] Basil Adhikari MD Unavailable [phone] Allergies No known active allergies Medications PreviDent [...] 1 tablet (88 mcg total) by mouth pasteurizer helper before breakfast 30 tablet 5 Active rosuvastatin [...] directed by . 30 patch 5 Active Additional Information Patient not taking.Reported on 09/13/2024 sodium chloride 0.9 % solution Administer per tube 30 mL 6 (six) times a day 1000 mL 1 5 Active isosource 1.5 Marcio/mL 0.07 gram-1.5 kcal/mL liquid 5 Active metoclopramide (REGLAN) 10 mg tablet Give 1/2 tablet (5 mg) via feeding tube every 6 hours 5 Active Jardiance 10 mg tablet Take 1 tablet (10 mg total) by mouth daily Active Active Problems Problem Noted Date Diagnosed Date Abnormal vital signs 05/13/2024 Assessment & Plan (05/13/2024 2:10 PM DOG SITTER): - Two charted HR in the 30s on 05/12 around 0445 AM. No symptoms reported at this time. Patient monitored in PM on 05/12 and 05/13 without observed HR in 30s. Patient reports his heart rate is being monitored by his train clerk Dr. Abraham. Patient had a recent TTE in 03/2024 with mild left ventricular systolic dysfunction, global kypokinesis, EF 50-55%, normal left ventricular cavity size, mild to moderate concentric left ventricular hypertrophy, normal aortic valve appearance and function, normal caliber aortic root. Back pain 05/12/2024 Assessment & Plan (05/12/2024 2:21 PM DOG SITTER): - OSH CT: Multilevel degenerative changes are noted in the spine, including a wedge deformity of the L2 vertebral body. - Lidoderm patch ordered Hematoma of leg, left, initial encounter 025 Assessment & Plan (05/13/2024 1:56 PM DOG SITTER): - CTA overread w/ large L hematoma, [...] 05/11/2024 Assessment & Plan (05/12/2024 11:34 AM DOG SITTER): - Patient reports on Vibegron for penile pain and reports previously tested for UTI which was negative - UA (05/10): neg nitrite, neg LE - will not reflex - G/C, trich urine pending- has not been sent as of 05/12 - Continue oxybutynin while inpatient Hyponatremia 05/11/2024 Assessment & Plan (05/13/2024 1:55 PM DOG SITTER): - Na 124 on admission - Previous [...] 05/11/2024 Assessment & Plan (05/13/2024 1:57 PM DOG SITTER): - 05/11: new admit, monitor Hgb and [...] 05/11/2024 Assessment & Plan (05/13/2024 1:59 PM DOG SITTER): - Hgb trend (05/10): 9.3- 8.7 - Hgb trend (05/11): 8.2- 8.2- 7.8- - Hgb trend (05/12): 7.7- 7.9 - Hgb (05/13): 7.8 - CBC was monitored, no active signs or symptoms of bleeding, hemodynamically unsupported at discharge Fall, initial encounter 05/10/2024 Assessment & Plan (05/11/2024 2:30 PM DOG SITTER): - mechanical fall - hypotensive at OSH, responsive to fluid resuscitation - CT head/spine overread w/o acute intracranial process or fractures, hematoma present correlating w/ exam - Cleared C-spine in ED Hyperkalemia 04/08/2024 Dysphagia 04/07/2024 Assessment & Plan (05/13/2024 3:35 PM DOG SITTER): - s/p G-tube - brush clearing laborer consulted - Tube feeds via PEG, meds via PEG - patient and family support report recent advancement to nectar thick liquids (mostly for comfort) - RESP THERAPIST consult - 05/12: appropriate for MBS, pending - 05/13: MBS to determine if diet can be advanced prior to discharge -- recommend NPO with ice chips - Discharge tube feeds: Isosource 220 ml via g-tube five times daily + 30 ml saline flush via PEG 6 times daily Hypotension 04/06/2024 Assessment & Plan (05/13/2024 1:55 PM DOG SITTER): - Continue home midodrine - 05/11: hypotensive [...] 02/11/2024 Assessment & Plan (05/11/2024 2:31 PM DOG SITTER): #Hx ascending aortic aneurysm sp aortic root replacement (03/18/24) #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 Numbness and tingling of upper extremity 024 Encounter for colonoscopy du e to history of adenomatous colonic polyps 11/03/2023 Cerebral infarction, unspecified 09/10/2023 Assessment & Plan (05/12/2024 11:34 AM DOG SITTER): - Neurology note 04/08/24 recommends transitioning to [...] (11/24/2018): Added automatically from request for surgery [id number] Adenomatous polyp of cecum 06/18/2018 Overview (06/18/2018): Added automatically from request for surgery [id number] skilled nursing current use of anticoagulant therapy 0 11/07/2016 Basal cell carcinoma (BCC) of antihelix of ear 0 04/16/2016 Ascending aortic aneurysm 09/05/2015 Deep vein thrombosis (DVT) 06/22/2015 Assessment & Plan (05/11/2024 2:08 PM DOG SITTER): - On Eliquis - Bilateral foot swelling - BLE duplex (05/11): 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) Pulmonary embolism 06/22/2015 Thyroid disease Assessment & Plan (05/11/2024 1:48 PM DOG SITTER): - Continue levothyroxine 88 mcg daily Neuropathy Depression Overview (07/18/2017): Depression GARCÍA on CPAP Assessment & Plan (05/11/2024 1:48 PM DOG SITTER): - Patient reports not wearing at this time OA (osteoarthritis) History of pulmonary embolus (PE) Assessment & Plan (05/12/2024 11:30 AM DOG SITTER): #Afib #Embolic stroke, history of - Remote history of PE, recent embolic strokes - Recently switched from Xarelto to Eliquis - 05/12: resume Eliquis, monitor Hgb Encounters Date Type Department Care Team Description 09/13/2024 9:15 AM CDT Office Visit [facility] [address] [address] Earl Bran II, MD Idiopathic peripheral neuropathy (Primary Dx); Gait abnormality; Bilateral carpal tunnel syndrome; Neuropathy of left ulnar nerve at wrist 07/02/2024 Telephone [facility] [address] [facility] [address], [place] [address] Carmela Arrieta Au.D. 07/02/2024 Telephone [facility] [address] [place] [address] Carmela Arrieta Au.D. 06/23/2024 Telephone [facility] [address] [facility] [address] [place] [address] Nasra Ruff B.A. 06/23/2024 Orders Only [facility] [address] [facility] [address] [place] [address] Devaughn Clement MD Aneurysm of ascending aorta without rupture (Primary Dx) from Last 3 Months Immunizations Immunization Administration Dates Next Due Influenza, Unspecified 01/16/2024 Moderna SARS-CoV-2 Monovalen t Vaccination (12+ YRS) 05/30/2020,04/18/2020 Tdap 05/10/2024(Deferred: Other - pt states received at [facility]) Surgical History Surgery Date Site/Laterality Comments THYROIDECTOMY [...] oz pur e alcohol) 2x a day [facility] Utilities Answer Date Recorded In the past 12 months has e [place], gas, oil, or water company threatened to [...] often do you attend chur ch or mosque services? Never 05/12/2024 Do you belong to [...] any time in the past 12 m [facility], were you homeless or living in a detention (including now)? No 05/12/2024 Personal Safety Answer Date Recorded Have you ever been in or are you currently in a harmful physical or emotional relationship or is someone making you feel afraid or unsafe? Denies 05/10/2024 Sex and Gender Information Value Date Recorded Sex Assigned at Not on file Legal Sex Male 12:56 AM DOG SITTER Gender Identity Not on file Sexual Orientation Straight 10/21/2019 9: 52 AM CDT Obstetrics History Last Filed Vital Signs Vital Sign Reading Time Taken Comments Blood Pressure 120/68 09/13/2024 9:14 AM CDT Pulse 87 09/13/2024 9:14 AM CDT Temperature 36.8 C (98.2 F) 05/13/2024 3:07 PM DOG SITTER Respiratory Rate 16 09/13/2024 9:14 AM CDT Oxygen Saturation 99% 09/13/2024 9:14 AM CDT Inhaled Oxygen Concentration - - Weight 69.1 kg (152 lb 6.4 oz) 09/13/2024 9:14 A M CDT Height 172.7 cm (5' 8) 09/13/2024 9:14 AM CDT Body Mass Index 23.17 09/13/2024 9:14 AM CDT Plan of Treatment Health Maintenance Due Date Last Done Comments Depression Screening 1940 Hepatitis B Screening 07/30/1957 Pneumococcal vaccine 65+ (1 of 1 - PCV) 07/30/1989 Zoster Vaccine (1 of 2) 07/30/1989 Well Visit 65+ 07/30/2004 DTaP/Tdap/Td Vaccine (2 - Td or Tdap) 03/31/2022 Covid-19 Vaccine (3 - season) 2023, 04/18/2020 Influenza Vaccine (#1) 2024 , 12/22/2023, 12/14/2012 Fall Risk Assessment 09/13/2025 09/13/2024, 05/13/2024, 01/14/2022 Medical Devices Implanted Type Area Vascular Surgery Physician Device Identifier Shelf Expiration Date Model / Serial / Lot Leyva Lif[employer]iences Konect Resilia Aortic Valved Conduit 27mm [id number] - [id number] - [id number] Implanted:Qty: 1 on 03/18/2024 by Basil Adhikari MD at [facility] Prosthetic Valve N/A: Aortic Valve Leyva [employer] 01/06/2027 [id number] / [id number] / Tele[employer] 18f Manta Vascular Closure Device 2114 - S0 - [id number] Implanted:Qty: 1 on 03/22/2024 by Basil Adhikari MD at [facility] Vascular Closure Device [employer] Inc 01/06/20255 / 0 / [id number] Cement Bone Cmw 2 20 Gm Fast Set Sterile - [id number] Implanted:Qty: 1 on 2017 by Brennon Davis MD at [facility] Right: Shoulder Depuy Orthopaedics Inc 10/15/2019 [id number] 0 / / [id number] Component Glenoid Comprehensive Regenerex Titanium Clay Porous Shoulder Modular Hybrid Post - [id number] Implanted:Qty: 1 on 2017 by Brennon Davis MD at [facility] Right: Shoulder [employer]av[employer] Inc [id number] 01/21/2027 PT-1139 50 / / [id number] Component Glenoid Comprehensive Hybrid Large H4 Mm Shoulder Base Modular - [id number] Implanted:Qty: 1 on 2017 by Brennon Davis MD at [facility] Right: Shoulder [employer] [id number] 03/23/2022 [id number] / / [id number] Stem Humeral Comprehensive Porous Mini L83 Mm Od15 Mm Shoulder Reverse System - [id number] Implanted:Qty: 1 on 2017 by Brennon Davis MD at [facility] Right: Shoulder [employer] [id number] 04/10/2027 [id number] / / [id number] Head Humeral Bio-Modular [place] 4 Mm Offset H22 Mm Od54 Mm Shoulder Sterile - [id number] Implanted:Qty: 1 on 2017 by Brennon Davis MD at [facility] Right: Shoulder [employer] 08/16/2019 [id number] / / [id number] Cryolife Inc Graft Biological Cardiovascular Photofix 6x8cm Acellular Dermis Pfp 6x8 - [id number] Implanted:Qty: 1 on 03/18/2024 by Basil Adhikari MD at [facility] N/A: Aorta [employer]olife Inc 10/24/2025 PFP 6X8 / / [id number] Arthrex Inc Device Closure Tigertape Sternal Cerclage Blunt Needle Ar-7289t - [id number] Implanted:Qty: 1 on 03/18/2024 by Basil Adhikari MD at [facility] N/A: Sternum Arthrex Inc 12/14/2028 AR-7289 T / / [id number] Arthrex Inc Device Closure Tigertape Sternal Cerclage Blunt Needle Ar-7289t - [id number] Implanted:Qty: 1 on 03/18/2024 by Basil Adhikari MD at [facility] N/A: Sternum Arthrex Inc 12/14/2028 AR-7289 T / / [id number] 2 Estrada Vascular Plug Occluder Cvasc Embl Self Expanding Amplatzer [id number] Nitinol 9-Avp2-014 - S0 - [id number] Implanted:Qty: 1 on 03/22/2024 by Basil Adhikari MD at [facility] Left: Internal Iliac (Hypogastr ic) Artery Estr[employer] V[employer] [id number] 05/14/2025 9-AVP2- 014 / 0 / [id number] Wl [employer] Excluder 18mm 14.5-16.5mm 11.5cm Stent Abrasion Resistant [id number] - [id number] - [id number] Implanted:Qty: 1 on 03/22/2024 by Basil Adhikari MD at [facility] Left: External Iliac Artery Wl [employer] [id number] 11/17/2026 [id number] 00 / [id number] 8 / Wl [employer] Stent Graft Thoracic Conformable Tag [id number] - S0 - [id number] Implanted:Qty: 1 on 03/22/2024 by Basil Adhikari MD at [facility] Left: External Iliac Artery Wl [employer] [id number] 08/14/2026 [id number] / 0 / Amplatzer Bakery Sales Clerk Lisa Amplatzer 14mm 100cm 8mm 1 Layer Wire Mesh 1 Lobe Design Optimal 9-Plug-014 - S0 - [id number] Implanted:Qty: 1 on 03/22/2024 by Basil Adhikari MD at [facility] Left: Internal Iliac (Hypogastr ic) Artery Amplatzer Bakery Sales Clerk Lisa 03/16/2028 9-PLUG- 014 / 0 / [id number] Insurance [facility] FEDERAL MEDICARE BCBS FEDERAL Advance Directives For more information, please contact: [phone] * Full Code (Latest Code Status on [...] 8:17 AM 12/19/2023 2:20 PM Care Teams Cost Control Analyst Relationship Specialty Start Date End Date Martinez Pace MD [address] [place] [address] PCP - General 05/02/16 Dion Abraham MD [address] [facility] [address] [place] [address] Referring Physician Cardiology 02/18/24 Basil Adhikari MD [address] [place] [address] Consulting Physician Cardiothoracic Surgery 02/19/24
--- OUTSIDE RECORDS SUMMARY | 2024-09-20 13:59 | XMS_ITS | Clinical Summary ---
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
--- OUTSIDE RECORDS SUMMARY | 2024-09-20 13:59 | XMS_ITS | Referral Summary ---
Author Organization [facility] Address [address] [place] [address] Care Team Providers Care Physicist [employer] Name Role Phone Martinez Pace MD Primary Care Provider Dion Abraham MD Unavailable [phone] Basil Adhikari MD Unavailable [phone] Encounters Date Type Department Care Team Description 09/13/2024 9:15 AM CDT Office Visit [facility] [address] [address] Earl Bran II, MD Idiopathic peripheral neuropathy (Primary Dx); Gait abnormality; Bilateral carpal tunnel syndrome; Neuropathy of left ulnar nerve at wrist 07/02/[address] [facility] [address] [address] Carmela Arrieta Au.D. 07/02/[address] [facility] - [address] [address] Carmela Arrieta Au.D. 06/23/2024 Telephone [facility] [address] [place] [address] Nasra Ruff B.A. 06/23/2024 Orders Only [facility] 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 30 patch 5 Active Additional Information Patient [...] tablet (10 mg total) by mouth daily 5 Active Active Problems Problem Noted Date Diagnosed Date Abnormal vital signs 05/13/2024 Assessment & Plan (05/13/2024 2:10 PM METER INSTALLER): - Two charted HR in the 30s on 05/12 around 0445 AM. No symptoms reported at this time. Patient monitored in PM on 05/12 and 05/13 without observed HR in 30s. Patient reports his heart rate is being monitored by his dextrine mixer Dr. Abraham. Patient had a recent TTE in 03/2024 with mild left ventricular systolic dysfunction, global kypokinesis, EF 50-55%, normal left ventricular cavity size, mild to moderate concentric left ventricular hypertrophy, normal aortic valve appearance and function, normal caliber aortic root. Back pain 05/12/2024 Assessment & Plan (05/12/2024 2:21 PM METER INSTALLER): - OSH CT: Multilevel degenerative changes are noted in the spine, including a wedge deformity of the L2 vertebral body. - Lidoderm patch ordered Hematoma of leg, left, initial encounter Assessment & Plan (05/13/2024 1:56 PM METER INSTALLER): - CTA overread w/ large L hematoma, [...] 05/11/2024 Assessment & Plan (05/12/2024 11:34 AM METER INSTALLER): - Patient reports on Vibegron for penile pain and reports previously tested for UTI which was negative - UA (05/10): neg nitrite, neg LE - will not reflex - G/C, trich urine pending- has not been sent as of 05/12 - Continue oxybutynin while inpatient Hyponatremia 05/11/2024 Assessment & Plan (05/13/2024 1:55 PM METER INSTALLER): - Na 124 on admission - Previous [...] 05/11/2024 Assessment & Plan (05/13/2024 1:57 PM METER INSTALLER): - 05/11: new admit, monitor Hgb and [...] 05/11/2024 Assessment & Plan (05/13/2024 1:59 PM METER INSTALLER): - Hgb trend (05/10): 9.3- 8.7 - Hgb trend (05/11): 8.2- 8.2- 7.8- - Hgb trend (05/12): 7.7- 7.9 - Hgb (05/13): 7.8 - CBC was monitored, no active signs or symptoms of bleeding, hemodynamically unsupported at discharge Fall, initial encounter 05/10/2024 Assessment & Plan (05/11/2024 2:30 PM METER INSTALLER): - mechanical fall - hypotensive at OSH, responsive to fluid resuscitation - CT head/spine overread w/o acute intracranial process or fractures, hematoma present correlating w/ exam - Cleared C-spine in ED Hyperkalemia 04/08/2024 Dysphagia 04/07/2024 Assessment & Plan (05/13/2024 3:35 PM METER INSTALLER): - s/p G-tube - product development specialist consulted - Tube feeds via PEG, meds via PEG - patient and family support report recent advancement to nectar thick liquids (mostly for comfort) - FINANCE TEACHER consult - 05/12: appropriate for MBS, pending - 05/13: MBS to determine if diet can be advanced prior to discharge -- recommend NPO with ice chips - Discharge tube feeds: Isosource 220 ml via g-tube five times daily + 30 ml saline flush via PEG 6 times daily Hypotension 04/06/2024 Assessment & Plan (05/13/2024 1:55 PM METER INSTALLER): - Continue home midodrine - 05/11: hypotensive [...] 02/11/2024 Assessment & Plan (05/11/2024 2:31 PM METER INSTALLER): #Hx ascending aortic aneurysm sp aortic root replacement (03/18/24) #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 0 11/07/2016 Basal cell carcinoma (BCC) of antihelix of ear 0 04/16/2016 Ascending aortic aneurysm 09/05/2015 Deep vein thrombosis (DVT) 06/22/2015 Assessment & Plan (05/11/2024 2:08 PM METER INSTALLER): - On Eliquis - Bilateral foot swelling - BLE duplex (05/11): 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) Pulmonary embolism 06/22/2015 Thyroid disease Assessment & Plan (05/11/2024 1:48 PM METER INSTALLER): - Continue levothyroxine 88 mcg daily Neuropathy Depression Overview (07/18/2017): Depression GARCÍA on CPAP Assessment & Plan (05/11/2024 1:48 PM METER INSTALLER): - Patient reports not wearing at this time OA (osteoarthritis) History of pulmonary embolus (PE) Assessment & Plan (05/12/2024 11:30 AM METER INSTALLER): #Afib #Embolic stroke, history of - Remote history of PE, recent embolic strokes - Recently switched from Xarelto to Eliquis - 05/12: resume Eliquis, monitor Hgb Immunizations Immunization Administration Dates Next Due Influenza, Unspecified 01/16/2024 Moderna SARS-CoV-2 Monovalen t Vaccination (12+ YRS) 05/30/2020,04/18/2020 Tdap 05/10/2024(Deferred: Other - pt states received at [facility]) Social History Tobacco Use Types Packs/Day Years Used Date Smoking Tobacco: Former Cigarettes 1 12 0 1962 - 1974 Smokeless Tobacco: Never Tobacco Cessation:Counseling Given: Not Answered Alcohol Use Standard Drinks/Week Comments Yes 3 (1 standard drink = 0.6 oz pur e alcohol) 2x a day [facility] Utilities Answer Date Recorded In the past 12 months has [employer], gas, oil, or water [employer] threatened to shut off services in your [...] week 05/12/2024 How often do you attend [facility] or religion services? Never 05/12/2024 Do you belong to any clubs o r organizations such as cheondoism groups, unions, fraternal or athletic groups, or [...] time in the past 12 m [facility], were you homeless or living in a residential (including now)? No 05/12/2024 Personal Safety Answer Date Recorded Have you ever been in or are you currently in a harmful physical or emotional relationship or is someone making you feel afraid or unsafe? Denies 05/10/2024 Sex and Gender Information Value Date Recorded Sex Assigned at Not on file Legal Sex Male 12:56 AM METER INSTALLER Gender Identity Not on file Sexual Orientation Straight 10/21/2019 9: 52 AM CDT Last Filed Vital Signs Vital Sign Reading Time Taken Comments Blood Pressure 120/68 09/13/2024 9:14 AM CDT Pulse 87 09/13/2024 9:14 AM CDT Temperature 36.8 C (98.2 F) 05/13/2024 3:07 PM METER INSTALLER Respiratory Rate 16 09/13/2024 9:14 AM CDT Oxygen Saturation 99% 09/13/2024 9:14 AM CDT Inhaled Oxygen Concentration - - Weight 69.1 kg (152 lb 6.4 oz) 09/13/2024 9:14 A M CDT Height 172.7 cm (5' 8) 09/13/2024 9:14 AM CDT Body Mass Index 23.17 09/13/2024 9:14 AM CDT Plan of Treatment Not on file Medical Devices Implanted Type Area Administrative Project Coordinator Device Identifier Shelf Expiration Date Model / Serial / Lot Leyva Lifesciences Konect Resilia Aortic Valved Conduit 27mm [id number] - [id number] - [id number] Implanted:Qty: 1 on 03/18/2024 by Basil Adhikari MD at [facility] Prosthetic Valve N/A: Aortic Valve Leyva Lif[employer]iences 01/06/2027 [id number] / [id number] / Teleflex [employer] Inc 18f Manta Vascular Closure Device 5 - S0 - [id number] Implanted:Qty: 1 on 03/22/2024 by Basil Adhikari MD at [facility] Vascular Closure Device Teleflex Medical Inc 01/06/20255 / 0 / [id number] Cement Bone Cmw 2 20 Gm Fast Set Sterile - [id number] Implanted:Qty: 1 on 2017 by Brennon Davis MD at [facility] Right: Shoulder Depuy Orthopaedics Inc 10/15/2019 [id number] 0 / / [id number] Component Glenoid Comprehensive Regenerex Titanium Clay Porous Shoulder Modular Hybrid Post - [id number] Implanted:Qty: 1 on 2017 by Brennon Davis MD at [facility] Right: Shoulder Kavita [employer] Inc [id number] 01/21/2027 PT-1139 50 / / [id number] Component Glenoid Comprehensive Hybrid Large H4 Mm Shoulder Base Modular - [id number] Implanted:Qty: 1 on 2017 by Brennon Davis MD at [facility] Right: Shoulder Kavita [employer] Inc [id number] 03/23/2022 [id number] / / [id number] Stem Humeral Comprehensive Porous Mini L83 Mm Od15 Mm Shoulder Reverse System - [id number] Implanted:Qty: 1 on 2017 by Brennon Davis MD at [facility] Right: Shoulder [employer]avita [employer] Inc [id number] 04/10/2027 [id number] / / [id number] Head Humeral Bio-Modular [place] 4 Mm Offset H22 Mm Od54 Mm Shoulder Sterile - [id number] Implanted:Qty: 1 on 2017 by Brennon Davis MD at [facility] Right: Shoulder Kavita [employer] Inc 08/16/2019 [id number] / / [id number] Cryolife Inc Graft Biological Cardiovascular Photofix 6x8cm Acellular Dermis Pfp 6x8 - [id number] Implanted:Qty: 1 on 03/18/2024 by Basil Adhikari MD at [facility] N/A: Aorta Cryolife Inc 10/24/2025 PFP 6X8 / / [id number] Arthrex Inc Device Closure Tigertape Sternal Cerclage Blunt Needle Ar-7289t - [id number] Implanted:Qty: 1 on 03/18/2024 by Basil Adhikari MD at [facility] N/A: Sternum Arthrex Inc 12/14/2028 AR-7289 T / / [id number] 2 Arthrex Inc Device Closure Tigertape Sternal Cerclage Blunt Needle Ar-7289t - [id number] Implanted:Qty: 1 on 03/18/2024 by Basil Adhikari MD at [facility] N/A: Sternum Arthrex Inc 12/14/2028 AR-7289 T / / [id number] Estrada Vascular Plug Occluder Cvasc Embl Self Expanding Amplatzer [id number] Nitinol 9-Avp2-014 - S0 - [id number] Implanted:Qty: 1 on 03/22/2024 by Basil Adhikari MD at [facility] Left: Internal Iliac (Hypogastr ic) Artery Estrada Vascular [id number] 05/14/2025 9-AVP2- 014 / 0 / [id number] [employer]l [employer] Inc Excluder 18mm 14.5-16.5mm 11.5cm Stent Abrasion Resistant [id number] - [id number] - [id number] Implanted:Qty: 1 on 03/22/2024 by Basil Adhikari MD at [facility] Left: External Iliac Artery W[employer] Inc [id number] 11/17/2026 [id number] 00 / [id number] / Wl [employer] Inc Stent Graft Thoracic Conformable Tag [id number] - S0 - [id number] Implanted:Qty: 1 on 03/22/2024 by Basil Adhikari MD at [facility] Left: External Iliac Artery W[employer] Inc [id number] 08/14/2026 [id number] 10 / 0 / Amplatzer New Car Sales Manager Lisa Amplatzer 14mm 100cm 8mm 1 Layer Wire Mesh 1 Lobe Design Optimal 9-Plug-014 - S0 - [id number] Implanted:Qty: 1 on 03/22/2024 by Basil Adhikari MD at [facility] Left: Internal Iliac (Hypogastr ic) Artery Amplatzer New Car Sales Manager Lisa 03/16/2028 9-PLUG- 014 / 0 / [id number] Insurance [facility] FEDERAL MEDICARE [facility] FEDERAL Advance Directives For more information, please contact: [phone] * Full Code (Latest Code Status on [...] 8:17 AM 12/19/2023 2:20 PM Care Teams Physicist Light And Optics Relationship Specialty Start Date End Date Martinez Pace MD [address] [place] [address] PCP - General 05/02/16 Dion Abraham MD [address] [place] [address] Referring Physician Cardiology 02/18/24 Basil Adhikari MD [address] [place] [address] Consulting Physician Cardiothoracic Surgery 02/19/24
--- OUTSIDE RECORDS SUMMARY | 2024-09-20 13:59 | XMS_ITS ---
Author Organization [facility] Address [address] [place] [address] Care Team Providers Care Focusing Machine Operator Name Role Phone Martinez Pace MD Primary Care Provider Dion Abraham MD Unavailable [phone] Basil Adhikari MD Unavailable [phone] Active Problems Problem Noted Date Diagnosed Date Abnormal vital signs 05/13/2024 Assessment & Plan (05/13/2024 2:10 PM EARLY YEARS TEACHER): - Two charted HR in the 30s on 05/12 around 0445 AM. No symptoms reported at this time. Patient monitored in PM on 05/12 and 05/13 without observed HR in 30s. Patient reports his heart rate is being monitored by his support assistant Dr. Abraham. Patient had a recent TTE in 03/2024 with mild left ventricular systolic dysfunction, global kypokinesis, EF 50-55%, normal left ventricular cavity size, mild to moderate concentric left ventricular hypertrophy, normal aortic valve appearance and function, normal caliber aortic root. Back pain 05/12/2024 Assessment & Plan (05/12/2024 2:21 PM EARLY YEARS TEACHER): - OSH CT: Multilevel degenerative changes are noted in the spine, including a wedge deformity of the L2 vertebral body. - Lidoderm patch ordered Hematoma of leg, left, initial encounter Assessment & Plan (05/13/2024 1:56 PM EARLY YEARS TEACHER): - CTA overread w/ large L hematoma, [...] 05/11/2024 Assessment & Plan (05/12/2024 11:34 AM EARLY YEARS TEACHER): - Patient reports on Vibegron for penile pain and reports previously tested for UTI which was negative - UA (05/10): neg nitrite, neg LE - will not reflex - G/C, trich urine pending- has not been sent as of 05/12 - Continue oxybutynin while inpatient Hyponatremia 05/11/2024 Assessment & Plan (05/13/2024 1:55 PM EARLY YEARS TEACHER): - Na 124 on admission - Previous [...] 05/11/2024 Assessment & Plan (05/13/2024 1:57 PM EARLY YEARS TEACHER): - 05/11: new admit, monitor Hgb and [...] 05/11/2024 Assessment & Plan (05/13/2024 1:59 PM EARLY YEARS TEACHER): - Hgb trend (05/10): 9.3- 8.7 - Hgb trend (05/11): 8.2- 8.2- 7.8- - Hgb trend (05/12): 7.7- 7.9 - Hgb (05/13): 7.8 - CBC was monitored, no active signs or symptoms of bleeding, hemodynamically unsupported at discharge Fall, initial encounter 05/10/2024 Assessment & Plan (05/11/2024 2:30 PM EARLY YEARS TEACHER): - mechanical fall - hypotensive at OSH, responsive to fluid resuscitation - CT head/spine overread w/o acute intracranial process or fractures, hematoma present correlating w/ exam - Cleared C-spine in ED Hyperkalemia 04/08/2024 Dysphagia 04/07/2024 Assessment & Plan (05/13/2024 3:35 PM EARLY YEARS TEACHER): - s/p G-tube - beater out leveling machine consulted - Tube feeds via PEG, meds via PEG - patient and family support report recent advancement to nectar thick liquids (mostly for comfort) - PATHOLOGY ASSISTANT consult - 05/12: appropriate for MBS, pending - 05/13: MBS to determine if diet can be advanced prior to discharge -- recommend NPO with ice chips - Discharge tube feeds: Isosource 220 ml via g-tube five times daily + 30 ml saline flush via PEG 6 times daily Hypotension 04/06/2024 Assessment & Plan (05/13/2024 1:55 PM EARLY YEARS TEACHER): - Continue home midodrine - 05/11: hypotensive [...] 02/11/2024 Assessment & Plan (05/11/2024 2:31 PM EARLY YEARS TEACHER): #Hx ascending aortic aneurysm sp aortic root replacement (03/18/24) #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 0 11/07/2016 Basal cell carcinoma (BCC) of antihelix of ear 0 04/16/2016 Ascending aortic aneurysm 09/05/2015 Deep vein thrombosis (DVT) 06/22/2015 Assessment & Plan (05/11/2024 2:08 PM EARLY YEARS TEACHER): - On Eliquis - Bilateral foot swelling - BLE duplex (05/11): 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
--- NOTE | 2024-09-20 16:21 | REHSTMBS ---
Assessment and note entered by Henny Hair, WHITE KID BUFFER Modified Barium Swallow Evaluation Feeding Type Recommended Oral Food Consistency Regular, Level 7 Liquid Consistency Thin (0) Treatment Recommendations Effortful Swallow,[place]ake Maneuver,Shaker Exercise,Tongue Base Exercise ST Clinical Summary The patient is an 84 yr old male seen for a repeat MBS study following receiving outpatient therapy to address dysphagia post CVA in Mar. The patient presently has a g tube for alternate means of nutrition but has been taking food by mouth since June without any reported episodes of pneumonia or respiratory changes. Over the past month the patient has increased his PO intake to 2 -3 times daily and progressed from thin liquid and puree textures to solids and thin liquids. He continues to complete the provided dysphagia exercises daily, and utilizes dysphagia strategies to include small bites and drinks, repeat swallows with all bites/and drinks, slow rate, and alternate bites and drinks. He has reduced tube feedings to one time daily. The patient was positioned in the lateral view for the MBS study and presented the following consistencies: 5cc/tsp amounts thin liquid barium, thin liquid barium via a cup, pudding mixed with barium paste and cracker coated with barium paste. Oral Stage: Timely oral preparation and transit was viewed for all consistencies presented. Pharyngeal stage: When presented tsp amounts thin liquid barium mild residual was viewed within the vallecula following the swallow secondary to reduced epiglottic inversion and tongue base retraction. Residual was cleared with a repeat dry swallow. When presented cup amounts of thin liquid barium mild residual was viewed in the vallecula secondary to reduced epiglottic movement /inversion and reduced tongue base retraction. Mild residual remained the the pyriform sinus secondary to cricopharyngeal dysfunction and cervical osteophytes at C5-C6. Residual was cleared with two repeat dry swallows performed by the patient. Trace laryngeal penetration was viewed following the swallow with residual spilling from the pyriform sinus and reduced laryngeal elevation but was cleared with completion of the second swallow. When presented both pudding mixed with barium paste and cracker coated with barium paste the patient was viewed to have severe residual within the vallecula following the swallow secondary to reduced epiglottic movement/inversion and reduced tongue base retraction which contributed to the residual. As well as moderate residual within the pyriform sinus secondary to cricopharyngeal dysfunction and cervical osteophytes at C5-C6. No laryngeal penetration/aspiration was viewed to enter the airway during or after the swallow. As seen with trials of thin liquid barium via cup barium residual remaining within the vallecula and pyriform sinus were cleared with 2 repeat dry swallows. Recommend: Regular diet/level 7 ([place] noting: Patient has been taking this diet for approximately 1 month without noted respiratory changes.) Thin Liquid/Level 0, small bites and drinks, upright with meals, slow rate, alternate bites and drinks, 2 repeat swallow for each bite and drink. Consider consult for g tube removal as indicated. Outpatient speech therapist to provide patient with long-term HEP and dysphagia strategies to continue after discharge.
== END 2024-09-20 13:54 | disposition home or self-care (01) ==
PROVIDERS: PCP Family Medicine; Visit Provider Physician Assistant Medical
DX: R13.14 Dysphagia, pharyngoesophageal phase (principal)
CPT/HCPCS: 74230; 92611

== ENCOUNTER 2024-09-22 11:30 | Outpatient (RCR) | payer BC, SELFPAY ==
[2024-07-21 11:18] VITALS: BMI 22.9
[2024-09-22 12:11] VITALS: BMI 23.1
--- NOTE | 2024-09-22 12:31 | PCDIET ---
Nutrition referral complete. Thank you for the consult.
== END 2024-10-04 11:10 | disposition home or self-care (01) ==
LOC: ANHDMC 11:30
PROVIDERS: PCP Family Medicine; Visit Provider Physician Assistant Medical
DX: Z93.1 Gastrostomy status (principal); Z71.3 Dietary counseling and surveillance
CPT/HCPCS: 97802; 97803

== ENCOUNTER 2024-09-23 15:00 | Outpatient (RCR) | payer BC, SELFPAY ==
[2024-06-29 15:46] VITALS: PULSE 81
== END 2024-10-01 09:28 | disposition home or self-care (01) ==
LOC: ANHCPREHAB 15:00
PROVIDERS: PCP Family Medicine; Visit Provider Internal Medicine Cardiovascular Disease
DX: Z95.2 Presence of prosthetic heart valve (principal)
CPT/HCPCS: 93798

== ENCOUNTER 2024-09-27 09:00 | Outpatient (RCR) | payer BC, SELFPAY ==
--- NOTE | 2024-07-28 16:33 | STOPEVAL1 ---
Assessment and note entered by Henny Hair MEDICAL LEADER Evaluation Information Assessment Status Evaluation Reported Pain Level Pain Score 0: Self Report Assessment ST Clinical Summary Patient is referred to outpatient speech therapy services post MBS 07/16/24 with noted penetration and aspiration as listed above. Currently nutritional needs are met via g tube placement since March 2024. However patient and significant other report po trials for approximately 4 weeks with the assistance of home health speech therapy. Oral intake consists primarily of ground and smooth textures as well as thin liquids. Small quantities 2-3 times a day 1/ 2 cup amounts at each meal. Discussed silent aspiration risk reviewed after MBS on 07/16/24 and treatment recommendations. Patient remains high risk for aspiration at this time. Treatment recommendations include exercises for laryngeal elevation/closure, tongue base retraction, as well as consideration of vital stim therapy. Patient and significant other report it was a consideration when hospitalized at [facility] but was not an available services at that time at either location. Plan of Care Interventions Treatment of Swallowing Dysfunction ST Services Indicated Yes These treatments will address the objective and functional deficits as defined above. The patient will be advanced safely and appropriately in order for the patient to progress towards his/her prior level of function. Additional exercises will be introduced and as well as a comprehensive home exercise program upon discharge, if needed, ?to ensure carryover of functional gains achieved in the clinic. This treatment plan has been reviewed and agreement upon by the patient.
--- NOTE | 2024-07-28 16:34 | OPREHPOC ---
Outpatient Therapy Plan of Care This is a Multidisciplinary Plan of Care that may contain components documented by all disciplines (PT, OT, and ST.) ST Problem 1 ST Problem #[address] Goal 1 Goal / Goal Update Patient will participate in home programming to improve carry over/generalization of skills to home environment Target Visit [address] Problem #[address] Goal 1 Goal / Goal Update Dysphagia: 1. Patient will complete dysphagia exercises to include effortful swallow, Chin-tuck against resistance, tongue base retraction, Zuleyka maneuver, and super supra-glottic swallow with 85% return demonstration and minimal cues. 2. Patient will complete HEP tracking sheet for carry over of above techniques 90% compliance. 3. Patient will complete therapeutic feedings with REMEDY DEVELOPER and application of above techniques for possible safe oral feeding. Target Visit 10
--- NOTE | 2024-08-05 12:17 | STOPPROG ---
Assessment and note entered by Henny Hair, PIPE MANUFACTURE SUPERVISOR Evaluation Information Assessment Status Progress Assessment ST Clinical Summary Patient is referred to outpatient speech therapy services post MBS 07/16/24 with noted penetration and aspiration as listed above. Currently nutritional needs are met via g tube placement since March 2024. However patient and significant other report po trials for approximately 4 weeks with the assistance of home health speech therapy. Oral intake consists primarily of ground and smooth textures as well as thin liquids. Small quantities 2-3 times a day 1/ 2 cup amounts at each meal. Discussed silent aspiration risk reviewed after MBS on 07/16/24 and treatment recommendations. Patient remains high risk for aspiration at this time. Treatment recommendations include exercises for laryngeal elevation/closure, tongue base retraction, as well as consideration of vital stim therapy. Patient and significant other report it was a consideration when hospitalized at [facility] but was not an available services at that time at either location. Plan of Care Interventions Treatment of Swallowing Dysfunction ST Services Indicated Yes These treatments will address the objective and functional deficits as defined above. The patient will be advanced safely and appropriately in order for the patient to progress towards his/her prior level of function. Additional exercises will be introduced and as well as a comprehensive home exercise program upon discharge, if needed, ?to ensure carryover of functional gains achieved in the clinic. This treatment plan has been reviewed and agreement upon by the patient.
--- NOTE | 2024-08-05 12:21 | STOPPROG ---
Assessment and note entered by Henny Hair, NIGHT GUARD Evaluation Information Assessment Status Progress Assessment ST Clinical Summary Patient is referred to outpatient speech therapy services post MBS 07/16/24 with noted penetration and aspiration as listed above. Currently nutritional needs are met via g tube placement since March 2024. However patient and significant other report po trials for approximately 4 weeks with the assistance of home health speech therapy. Oral intake consists primarily of ground and smooth textures as well as thin liquids. Small quantities 2-3 times a day 1/ 2 cup amounts at each meal. Discussed silent aspiration risk reviewed after MBS on 07/16/24 and treatment recommendations. Patient remains high risk for aspiration at this time. Treatment recommendations include exercises for laryngeal elevation/closure, tongue base retraction, as well as consideration of vital stim therapy. Patient and significant other report it was a consideration when hospitalized at [facility] but was not an available services at that time at either location. Orders received to provide estim therapy for dysphagia with Vital stim program application. Goals added to plan of care to include new treatment method. Plan of Care Interventions Treatment of Swallowing Dysfunction ST Services Indicated Yes Treatment Frequency and 2x week x 10 visits. Duration These treatments will address the objective and functional deficits as defined above. The patient will be advanced safely and appropriately in order for the patient to progress towards his/her prior level of function. Additional exercises will be introduced and as well as a comprehensive home exercise program upon discharge, if needed, ?to ensure carryover of functional gains achieved in the clinic. This treatment plan has been reviewed and agreement upon by the patient.
--- NOTE | 2024-08-05 12:30 | OPREHPOC ---
Outpatient Therapy Plan of Care This is a Multidisciplinary Plan of Care that may contain components documented by all disciplines (PT, OT, and ST.) ST Problem 1 ST Problem #[address] Goal 1 Goal / Goal Update Patient will participate in home programming to improve carry over/generalization of skills to home environment Target Visit [address] Problem #[address] Goal 1 Goal / Goal Update Dysphagia: 1. Patient will complete dysphagia exercises to include effortful swallow, Chin-tuck against resistance, tongue base retraction, Zuleyka maneuver, and super supra-glottic swallow with 85% return demonstration and minimal cues. 2. Patient will complete HEP tracking sheet for carry over of above techniques 90% compliance. 3. Patient will complete therapeutic feedings with AUTO SERVICE ADVISOR and application of above techniques for possible safe oral feeding. 4. NMES with dysphagia treatment to advance patients diet as tolerated to po intake. Target Visit 10
--- NOTE | 2024-08-30 17:53 | OPREHPOC ---
Outpatient Therapy Plan of Care This is a Multidisciplinary Plan of Care that may contain components documented by all disciplines (PT, OT, and ST.) ST Problem 1 ST Problem #[address] Goal 1 Goal / Goal Update Patient will participate in home programming to improve carry over/generalization of skills to home environment Target Visit [address] Problem 2 ST Problem #[address] Goal 1 Goal / Goal Update Dysphagia: 1. Patient will complete dysphagia exercises to include effortful swallow, Chin-tuck against resistance, tongue base retraction, Zuleyka maneuver, and super supra-glottic swallow with 85% return demonstration and minimal cues. (Updated Met at 85% New Goal 90%) 2. Patient will complete HEP tracking sheet for carry over of above techniques 90% compliance. ( Update 08/30/24 Met) 3. Patient will complete therapeutic feedings with TUBE HEATER and application of above techniques for possible safe oral feeding. (Updated 08/30/24 Met) 4. NMES with dysphagia treatment to advance patients diet as tolerated to po intake. ( Initiated 08/05/24) Ongoing Target Visit 10 Progress Partially Met
--- NOTE | 2024-08-30 17:59 | STOPEVAL1 ---
Assessment and note entered by Henny Hair SHOW HORSE DRIVER Evaluation Information Assessment Status Re-evaluation ICD-10 Condition Codes (ST) Dysphagia, pharyngeal phase R13.13 Reported Pain Level Pain Score 0: Self Report Assessment ST Clinical Summary Patient is referred to outpatient speech therapy services post MBS 07/16/24 with noted penetration and aspiration as listed above. Currently nutritional needs are met via g tube placement since March 2024. However patient and significant had reported po trials for approximately 4 weeks with the assistance of home health speech therapy prior to beginning outpatient services. Oral intake consists primarily of ground and smooth textures as well as thin liquids. Small quantities 2-3 times a day 1/ 2 cup amounts at each meal. Discussed silent aspiration risk reviewed after MBS on 07/16/24 and treatment recommendations. Patient remains high risk for aspiration at this time. Treatment recommendations include exercises for laryngeal elevation/closure, tongue base retraction, as well as consideration of vital stim therapy. Patient and significant other report it was a consideration when hospitalized at [facility] but was not an available services at that time at either location. Orders received to provide estim therapy for dysphagia with Vital stim program application. Goals added to plan of care to include new treatment method. The patient has been receiving speech services over the past 4 weeks to address above concerns upon re-evaluation this date is demonstrating a more timely swallow initiation with improved laryngeal elevation and no viewed clinical signs of aspiration with puree trials and small sips thin liquid. The patietn has been referred for a repeat MBS prior to continuing additional speech services. Plan of Care Interventions Treatment of Swallowing Dysfunction ST Services Indicated Yes Treatment Frequency and 2x week x 10 visits. Duration These treatments will address the objective and functional deficits as defined above. The patient will be advanced safely and appropriately in order for the patient to progress towards his/her prior level of function. Additional exercises will be introduced and as well as a comprehensive home exercise program upon discharge, if needed, ?to ensure carryover of functional gains achieved in the clinic. This treatment plan has been reviewed and agreement upon by the patient.
--- NOTE | 2024-09-27 09:32 | STOPDC ---
Assessment and note entered by Henny Hair FIRMWARE SOFTWARE VERIFICATION ENGINEER Evaluation Information Assessment Status Discharge Reported Pain Level Pain Score 0: Self Report Assessment ST Clinical Summary The patient was provided a written HEP to include Lake, Shaker and Supraglottic Swallow. Patient able to complete independently. Reviewed ongoing dysphagia strategies. Able to demonstrate independently. Plan of Care ST Services Indicated Yes
== END 2024-09-27 10:59 | disposition home or self-care (01) ==
LOC: ANHST 09:00
PROVIDERS: PCP Family Medicine; Visit Provider Physician Assistant Medical
DX: R13.13 Dysphagia, pharyngeal phase (principal); T17.908A Unspecified foreign body in respiratory tract, part unspecified causing other injury, initial encounter; Z93.1 Gastrostomy status
CPT/HCPCS: 92526; 92610

== ENCOUNTER 2024-11-02 12:51 | Outpatient (CLI) | payer BC, SELFPAY ==
--- NOTE | ~2024-11-02 | MR_ITS ---
EXAMINATION: MR lumbar spine wo con DATE: 11/02/2024 14:28 INDICATION: Lumbar spondylosis TECHNIQUE: Magnetic resonance imaging (MRI) of the lumbar spine was performed without intravenous contrast. Sequences included sagittal T2-weighted FSE, sagittal T2-weighted FS FSE, sagittal T1-weighted FSE, and axial T2-weighted FSE. COMPARISON: Lumbar spine radiographs dated 08/11/2024 and MRI dated 07/26/2022 FINDINGS: 35 degree upper lumbar levoscoliosis. 3 mm anterolisthesis L3 on L4. 4 mm retrolisthesis L5 on S1. No interval change in a chronic L2 compression fracture with one third right anterior vertebral body height loss. Multilevel disc height loss, severe with T2 hyperintense fibrovascular degenerative endplate changes at T10-T11, L2-L3, L4-L5 and L5-S1, moderate severity with additional fibrovascular degenerative endplate changes at T11-T12 and without degenerative endplate changes at L3-L4 and mild at T12-L1 and L1-L2. The conus medullaris terminates at L1. There is normal signal in the caudal spinal cord. Paravertebral soft tissues are unremarkable. 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 The following disc levels are specifically discussed: T12-L1: Disc is bulging. There is mild right and moderate left facet joint osteoarthritis. There is moderate bilateral neural foraminal stenosis. There is mild central canal stenosis. L1-L2: Disc is bulging with annular fissure. There is hypertrophy of the ligamentum flavum. There is moderate right and severe left facet joint osteoarthritis. There is moderate right and mild to moderate left neural foraminal stenosis. There is mild central canal stenosis. L2-L3: Disc is bulging with annular fissure. There is hypertrophy of the ligamentum flavum. There is moderate left and severe right facet joint osteoarthritis. There is moderate right and mild to moderate left neural foraminal stenosis. There is moderate central canal stenosis. L3-L4: Disc is bulging with annular fissure. There is hypertrophy of the ligamentum flavum. There is severe bilateral facet joint osteoarthritis. There is mild left and mild to moderate right neural foraminal stenosis. There is severe central canal stenosis. L4-L5: Disc is bulging with annular fissure. There is hypertrophy of the ligamentum flavum. There is severe bilateral facet joint osteoarthritis. There is moderate to severe bilateral neural foraminal stenosis. There is moderate central canal stenosis. L5-S1: Disc is bulging with annular fissure. There is mild right and severe left facet joint osteoarthritis. There is mild right and moderate to severe left neural foraminal stenosis. There is mild central canal stenosis. IMPRESSION: 1. 35 degrees lumbar levoscoliosis with significant interval progression at multiple levels of severe lumbar spondylosis. 2. 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 Reviewed, dictated and finalized at location A. IMPRESSION: 1. 35 degrees lumbar levoscoliosis with significant interval progression at mul tiple levels of severe lumbar spondylosis. 2. Stented left common iliac aneurysm measuring up to 4.5 cm in maximal diamete r.
== END 2024-11-02 12:52 | disposition home or self-care (01) ==
LOC: GOSHIMG 12:52
PROVIDERS: PCP Family Medicine; Visit Provider Nurse Practitioner Adult Health
DX: M47.816 Spondylosis without myelopathy or radiculopathy, lumbar region (principal); M41.86 Other forms of scoliosis, lumbar region; Z95.820 Peripheral vascular angioplasty status with implants and grafts
CPT/HCPCS: 72148